=== PATIENT | male | born 1960 | race Caucasian/White ===

== ENCOUNTER 2016-09-24 10:38 | Emergency (ER) | payer MEDICAID, MEDICARE ==
[~2016-09-24] VITALS: Ht 188 cm; Wt 99.8 kg
[~2016-09-24 10:38] MED LIST: ALBU17AE3 IH; AMT50T; ARPZ10T PO; ASP325T PO; ASP81CT; ASP81CT PO; ASPI-84; ATRV10T PO; CALC/MAG/ZINC; CHOL4PAC2 PO; CLON1TAB3 PO; CLON1TAB36; COLC0.6T7 PO; CYCL10TA9 PO; DULO30CA; DULO30CA PO; DULO60CA6; DYAZIDE; ENAL2.5T PO; ENLP10T; ESOM10SU PO; FENTANYL PATCH TD; FLUO40CA PO; FNT100TD TD; GBPN300C PO; GEMF600T3; GLMP2T; GMFB600T; HYDR-3720; HYDR-757 PO; HYOS0.1217 PO; INDM25C PO; INSASP10V SQ; INSU100C SQ; INSU100C4 SQ; INSU100I17 SQ; INSU100V16 SQ; INSU100V5 SQ; INSU100V6 SQ; INSUSS SC; KRIL1CAP PO; KRIL1CAP12 PO; LEVE1U SQ; LISI-552 PO; LISI20TA PO; METF-380; METF-380 PO; METO25TA2 PO; METO50TA2 PO; METO50TA7; METR500T21 PO; MIRT15TA6 PO; MTP25TSR; MTP50T; MTP50T PO; MULT-608; MULT1TAB63; NAPR500T PO; NAPR550T PO; NF-ESOM40C PO; NFMET1000; OMEG1CAP51 PO; OMG1KC; OMG1KC PO; ONDA4TAB8 SL; ONDAN4ODT PO; OXYC-471 PO; OXYCODONE; PANT40TA3 PO; PNT40TEC PO; PRAV40TA PO; PRD10T PO; PRD20T PO; PRED20TA PO; PREG100C PO; PREG50C PO; PREG75CA PO; PROM25SU10 PR; PROP1TAB61; PROP1TAB77; ROPI0.25 PO; RT-ALBUINH IH; RT-ALBUINH INH; SILD100T PO; SILVADENE CREAM; SULF-222 PO; TADA20TA PO; TADA5TAB2 PO; TIOT18CA IH; TRAM-21 PO; TRAM50TA2 PO; TRM50T; VARD10TA PO; VARE1TAB17 PO; [UNRECOGNIZED DRUG - OTHER]; albuterol IH
[2016-09-24 12:21] LABS: BASOPHILS # (AUTO) 0.1 10^3/uL (0.0-0.1); BASOPHILS % (AUTO) 1 % (0-10); EOSINOPHILS % (AUTO) 1 % (0-10); LYMPHOCYTES # (AUTO) 0.9 X 10^3 (1.0-4.0); LYMPHOCYTES % (AUTO) 10 % (12-44); MEAN CORPUSCULAR HEMOGLOBIN 29 PG (25-34); MEAN CORPUSCULAR HGB CONC 36 G/DL (32-36); MEAN CORPUSCULAR VOLUME 82 FL (80-99); MONOCYTES # (AUTO) 0.8 X 10^3 (0.0-1.0); MONOCYTES % (AUTO) 10 % (0-12); NEUTROPHILS # (AUTO) 6.9 X 10^3 (1.8-7.8); NEUTROPHILS % (AUTO) 79 % (42-75); PLATELET COUNT 174 10^3/uL (130-400); RED CELL DISTRIBUTION WIDTH 13.7 % (10.0-14.5); WHITE BLOOD COUNT 8.8 10^3/uL (4.3-11.0)
--- NOTE | 2016-09-24 12:34 | Diagnostic Imaging Report ---
INDICATION: Cough, congestion. COMPARISON: 03/13/2016 and 10/24/2015. FINDINGS: There is irregular nodular opacity near the cardiac apex which is unchanged since 10/24/2015 exam. Otherwise, visualized lungs are clear. No pleural effusion or pneumothorax. Stable cardiomediastinal silhouette with borderline cardiomegaly, likely due to portable technique. Normal pulmonary vasculature. Stable changes of ACDF in the lower cervical spine. IMPRESSION: 1. Stable examination without evidence of acute cardiopulmonary process. 2. Irregular nodular opacity near the cardiac apex is unchanged from 10/24/2015 examination and likely represents a focus of atelectasis or scar. Dictated by: Dictated on workstation # [id number]
[2016-09-24 12:37] LABS: ALANINE AMINOTRANSFERASE 15 U/L (0-55); ALBUMIN 4.2 G/DL (3.2-4.5); ANION GAP 11 MMOL/L (5-14); ASPARTATE AMINO TRANSFERASE 9 U/L (5-34); BILIRUBIN,TOTAL 0.6 MG/DL (0.1-1.0); BLOOD UREA NITROGEN 11 MG/DL (7-18); BUN/CREATININE RATIO 13; CALCIUM 8.7 MG/DL (8.5-10.1); CARBON DIOXIDE 20 MMOL/L (21-32); CHLORIDE 99 MMOL/L (98-107); CREATININE SERUM 0.84 MG/DL (0.60-1.30); GFR ESTIMATED > 60; GLUCOSE 270 MG/DL (70-105); SODIUM 130 MMOL/L (135-145); TOTAL PROTEIN 7.1 G/DL (6.4-8.2)
[2016-09-24 12:57] LABS: BILIRUBIN,URINE NEGATIVE (NEGATIVE); KETONES,URINE NEGATIVE (NEGATIVE); LEUKOCYTE ESTERASE ,URINE 1+ (NEGATIVE); NITRITE,URINE NEGATIVE (NEGATIVE); PH,URINE 5 (5-9); PROTEIN,URINE 2+ (NEGATIVE); UROBILINOGEN,URINE NORMAL (NORMAL)
--- NOTE | 2016-09-24 13:22 | ED Cough/URI ---
General Chief Complaint: Cough/Cold/Flu Symptoms Stated Complaint: COUGH, CONGESTION, POSSIBLE PNEUMONIA Nursing Triage Note: Pt c/o cough, congestion, SOA, dizziness that started saturday and worsened last night. Pt reports he was seen at walk-in clinic at [facility] and given given azithromycin and cough medication. Source: patient Exam Limitations: no limitations History of Present Illness Time seen by provider: 13:17 Initial Comments The patient reports that he began to cough and runny fever several days ago. The maximum fever has been 102. He was seen at a walk-in clinic Saturday and given Zithromax. He reports he was given nothing for cough management and has been taking [id number]. He has also not been taking Tylenol or ibuprofen for fever management. He initially coughed up a bit of blood and mucus. There is been none since then. There is been a little sputum and all his coughing. Timing/Duration: other (Saturday) Severity/Quality: severe, dry cough, blood streaked sputum Allergies and Home Medications Allergies Coded Allergies: No Known Drug Allergies (Unverified , 05/31/13) Home Medications Albuterol Sulfate 8.5 Gm Hfa.aer.ad 2 PUFF INH Q4H PRN PRN SHORTNESS OF BREATH ( Reported) Insulin Aspart 100 Unit/1 Ml Susp 10 UNITS SQ BID WITH MEALS (Reported) Insulin Determir 1,000 Units/10 Ml Soln 35 UNITS SQ BID (Reported) Lisinopril 20 Mg Tablet 10 MG PO DAILY (Reported) take 1/2 of 20mg tab Metoprolol Tartrate 50 Mg Tablet 50 MG PO DAILY (Reported) Ondansetron 4 Mg Tab.rapdis #24 1 TAB SL Q4H PRN PRN NAUSEA Prescribed by: NILAY BOWDEN on 06/27/16 1217 Oxycodone HCl/Acetaminophen 1 Each Tablet #40 1 TAB PO Q4H PRN PRN PAIN Prescribed by: NILAY BOWDEN on 06/27/16 1217 Pantoprazole Sodium 40 Mg Tablet.dr 40 MG PO DAILY (Reported) Pregabalin 100 Mg Capsule 100 MG PO BID (Reported) Tadalafil 20 Mg Tablet 20 MG PO PRN (Reported) Constitutional: see HPI fever EENTM: hoarseness nose congestion Respiratory: cough Cardiovascular: no symptoms reported Gastrointestinal: no symptoms reported Genitourinary: no symptoms reported Musculoskeletal: muscle pain Skin: no symptoms reported Psychiatric/Neurological: No Symptoms Reported Hematologic/Lymphatic: No Symptoms Reported Past Jjyfrbb-Ttgikr-Xsmfbi Hx Patient Social History Alcohol Use: Rarely Uses Recreational Drug Use: Yes (THC) Smoking Status: Current Everyday Smoker Type Used: Cigarettes Former Smoker/When Quit: Sep 16, 2013 Recent Foreign Travel: No Contact w/Someone Who Travel: No Recent Infectious Disease Expo: No Recent Hopitalizations: Yes (FEBRUARY 2016) Physical Abuse Screen: No Sexual Abuse: No Immunizations Up To Date Tetanus Booster (TDap): Less than 5yrs PED Vaccines UTD: No Date of Pneumonia Vaccine: January 20, 2010 Date of Influenza Vaccine: Jun 20, 2016 Seasonal Allergies Seasonal Allergies: Yes Surgeries HX Surgeries: Yes (HERNIA REPAIR, ENE-SPINE SURGERY X2, RT KNEE SCOPE, CARDIAC CATH) Surgeries: Abdominal, Cardiac, Orthopedic Respiratory Hx Respiratory Disorders: Yes (INTERSTITIAL LUNG DISEASE, OXYGEN PRN) Respiratory Disorders: Pneumonia, Sleep Apnea, COPD Cardiovascular Hx Cardiac Disorders: Yes (LBBB, CARDIAC CATH) Cardiac Disorders: High Cholesterol, Hypertension Neurological Hx Neurological Disorders: Yes (NEUROPATHY IN FEET) Neurological Disorders: Neuropathy Reproductive System Hx Reproductive Disorders: No (ERECTILE DYSFUNCTION) Sexually Transmitted Disease: No HIV/AIDS: No Genitourinary Hx Genitourinary Disorders: No Gastrointestinal Hx Gastrointestinal Disorders: Yes Gastrointestinal Disorders: Gastroesophageal Reflux Musculoskeletal Hx Musculoskeletal Disorders: Yes (CHRONIC GENERALIZED PAIN, CHRONIC NECK AND BACK PAIN ) Musculoskeletal Disorders: Degenerate Disk Disease, Arthritis, Fibromyalgia, Chronic Back Pain Endocrine Hx Endocrine Disorders: Yes Endocrine Disorders: Diabetes, Insulin dep HEENT HX ENT Disorders: No Loss of Vision: Denies Hearing Impairment: Hard of Hearing Cancer Hx Cancer: No Psychosocial Hx Psychiatric Problems: Yes Behavioral Health Disorders: Anxiety Integumentary HX Skin/Integumentary Disorder: No Blood Transfusions Hx Blood Disorders: No Adverse Reaction to a Blood Tr: No Family Medical History Family Medial History: Cancer 03 MOTHER Cancer of colon 03 MOTHER Cataract 03 MOTHER Chest pain 03 FATHER Family history: Cardiovascular disease 03 FATHER Family history: Diabetes mellitus 09 BROTHER Headache 03 FATHER 03 MOTHER 09 BROTHER 09 BROTHER Heart disease 03 FATHER Myocardial infarction 03 FATHER Stroke 09 BROTHER No Family History of: Abdominal aortic aneurysm Hi's disease Alcoholism Aphasia Congenital heart disease Congestive heart failure Cystic fibrosis Dementia Dysphagia Family history: Allergy Family history: Alzheimer's disease Family history: Arthritis Family history: Asthma Family history: Breast disease Family history: Coronary thrombosis Family history: Gastrointestinal disease Family history: Glaucoma Family history: Hypertension Family history: Osteoporosis Family history: Thyroid disorder Hearing loss Hereditary disease History of - anemia History of - disorder History of - respiratory disease History of drug abuse Human immunodeficiency virus (HIV) seropositivity Hypercholesterolemia Infertile Kidney disease Malignant neoplasm of lung Parkinson's disease Prostate cancer Psychotic disorder Seizure disorder Tuberculosis Visual impairment Physical Exam Vital Signs Vital Sign - Last 12Hours 09/24/16 11:38 Temp 101.9 Pulse 114 Resp 18 B/P 128/74 Pulse Ox 90 O2 Delivery Room Air Capillary Refill : Less Than 3 Seconds General Appearance: mild distress moderate distress Eyes: Bilateral Eye Normal Inspection HEENT: normal ENT inspection Neck: non-tender full range of motion supple normal inspection carotid bruit Respiratory: decreased breath sounds Cardiovascular: normal peripheral pulses regular rate, rhythm no edema no gallop no JVD no murmur Gastrointestinal: normal bowel sounds non tender soft no organomegaly no pulsatile mass Extremities: no pedal edema 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 as 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 no motor/sensory deficits alert normal mood/affect oriented x 3 Progress/Results/Core Measures Results/Orders Lab Results Laboratory Tests Test 09/24/16 12:10 09/24/16 12:50 Range/Units Alanine Aminotransferase (ALT/SGPT) 15 0-55 U/L Albumin 4.2 3.2-4.5 G/DL Alkaline Phosphatase 81 40-136 U/L Anion Gap 11 5-14 MMOL/L Aspartate Amino Transf (AST/SGOT) 9 5-34 U/L BUN/Creatinine Ratio 13 Basophils # (Auto) 0.1 0.0-0.1 10^3/uL Basophils (%) (Auto) 1 0-10 % Blood Urea Nitrogen 11 7-18 MG/DL Calcium Level 8.7 8.5-10.1 MG/DL Carbon Dioxide Level 20 L 21-32 MMOL/L Chloride Level 99 98-107 MMOL/L Creatinine 0.84 0.60-1.30 MG/DL Eosinophils # (Auto) 0.0 0.0-0.3 10^3/uL Eosinophils (%) (Auto) 1 0-10 % Estimat Glomerular Filtration Rate > 60 Glucose Level 270 H 70-105 MG/DL Hematocrit 44 40-54 % Hemoglobin 15.8 13.3-17.7 G/DL Lymphocytes # (Auto) 0.9 L 1.0-4.0 X 10^3 Lymphocytes (%) (Auto) 10 L 12-44 % Mean Corpuscular Hemoglobin 29 25-34 PG Mean Corpuscular Hemoglobin Concent 36 32-36 G/DL Mean Corpuscular Volume 82 80-99 FL Mean Platelet Volume 11.0 H 7.4-10.4 FL Monocytes # (Auto) 0.8 0.0-1.0 X 10^3 Monocytes (%) (Auto) 10 0-12 % Neutrophils # (Auto) 6.9 1.8-7.8 X 10^3 Neutrophils (%) (Auto) 79 H 42-75 % Platelet Count 174 130-400 10^3/uL Potassium Level 4.0 3.6-5.0 MMOL/L Red Blood Count 5.40 4.35-5.85 10^6/uL Red Cell Distribution Width 13.7 10.0-14.5 % Sodium Level 130 L 135-145 MMOL/L Total Bilirubin 0.6 0.1-1.0 MG/DL Total Protein 7.1 6.4-8.2 G/DL White Blood Count 8.8 4.3-11.0 10^3/uL Urine Bacteria TRACE /HPF Urine Bilirubin NEGATIVE NEGATIVE Urine Casts NONE /LPF Urine Clarity CLEAR Urine Color YELLOW Urine Crystals NONE /LPF Urine Culture Indicated NO Urine Glucose (UA) 4+ H NEGATIVE Urine Ketones NEGATIVE NEGATIVE Urine Leukocyte Esterase 1+ H NEGATIVE Urine Mucus MODERATE H /LPF Urine Nitrite NEGATIVE NEGATIVE Urine Protein 2+ H NEGATIVE Urine RBC NONE /HPF Urine RBC (Auto) NEGATIVE NEGATIVE Urine Specific [place] 1.025 H 1.016-1.022 Urine Squamous Epithelial Cells 2-5 /HPF Urine Urobilinogen NORMAL NORMAL MG/DL Urine WBC 2-5 /HPF Urine pH 5 5-9 My Orders Orders-RONA ENRIQUE MD Cbc With Automated Diff (09/24/16 11:58) Comprehensive Metabolic Panel (09/24/16 11:58) Ua Culture If Indicated (09/24/16 11:58) Chest 1 View, Ap/Pa Only (09/24/16 11:58) Vital Signs/I&O Vital Sign - Last 12Hours 09/24/16 09/24/16 11:38 11:52 Temp 101.9 Pulse 114 Resp 18 B/P 128/74 Pulse Ox 90 O2 Delivery Room Air Room Air Blood Pressure Mean: 92 Departure Communication Progress Notes Chest x-ray shows no infiltrates. A chronic abnormality thought to be consistent with scar was noted as compared with a previous chest x-ray. Impression Impression: Primary Impression: Upper respiratory infection Disposition: HOME, SELF-CARE Condition: Stable/Unchanged Departure-Patient Inst. Decision time for Depature: 13:21 Referrals: NELI SIMPSON DO (PCP) Primary Care Physician TATYANA CHAPPELL (Family) Primary Care Physician Patient Instructions: Viral Upper Respiratory Infection, Adult (DC) Add. Discharge Instructions: All discharge instructions reviewed with patient and/or family. Voiced understanding. Finish Z-Jayce Plenty of liquids Use Tylenol 1000 mg or ibuprofen 600 mg every 6 hours as needed for fever and myalgia Take codeine containing cough medicine as directed Scripts Promethazine/Phenyleph/Codeine (Promethazine Vc-Codeine Syrup)118 Ml Syrup5 Ml PO every 4 hours #1 ML Prov:RONA ENRIQUE MD 09/24/16 RONA ENRIQUE MD Sep 24, 2016 13:22
[2016-09-24] MEDS ORDERED: PHEN118S12 PO (13:26)
[2016-09-24 13:42] VITALS: BP 127/77
== END 2016-09-24 13:42 | disposition home or self-care (01) ==
LOC: EDUNIT# 10:38 → ER 10:39
DX: J06.9 Acute upper respiratory infection, unspecified (principal); R42 Dizziness and giddiness; I10 Essential (primary) hypertension; J44.9 Chronic obstructive pulmonary disease, unspecified; R91.8 Other nonspecific abnormal finding of lung field; E11.9 Type 2 diabetes mellitus without complications; F17.210 Nicotine dependence, cigarettes, uncomplicated; Z79.4 Long term (current) use of insulin; Z79.899 Other long term (current) drug therapy
CPT/HCPCS: 36415; 71010; 80053; 81000; 85025

== ENCOUNTER → 2016-11-05 | Outpatient (CLI) | payer MEDICARE, MEDICAID ==
[~2016-11-05] MED LIST changes: +CEFD300C3 PO; +PHEN118S12 PO
--- NOTE | 2016-11-05 13:44 | Diagnostic Imaging Report ---
PROCEDURE: CT chest without contrast. TECHNIQUE: Multiple contiguous axial images were obtained through the chest without the use of intravenous contrast. INDICATION: Chronic bronchitis with acute exacerbation and tobacco use, shortness of breath, pulmonary nodule. Comparison is made with prior examination from 08/06/16. FINDINGS: Note is again made of a 4 mm nodule in the right middle lobe. There is also a stable 1.1 cm nodule in the left lower lobe. There are a few tiny air cysts. There is no pleural or pericardial fluid. There is no pneumothorax. There are some coronary artery calcifications. There is an unchanged 1.5 cm node in the right paratracheal region. There are mild degenerative changes in the spine. The visualized intra-abdominal structures are unremarkable. IMPRESSION: 1. Stable bilateral pulmonary nodules. 2. 1.5 cm lymph node in the right paratracheal region. 3. Coronary artery calcifications. Dictated by: Dictated on workstation # [id number]
== END ==
LOC: RAD 12:59
PROVIDERS: ATTEND Nurse Practitioner Family
DX: J20.9 Acute bronchitis, unspecified (principal); J84.9 Interstitial pulmonary disease, unspecified; R06.00 Dyspnea, unspecified; R91.1 Solitary pulmonary nodule; Z72.0 Tobacco use
CPT/HCPCS: 71250

== ENCOUNTER 2016-11-08 16:24 | Emergency (ER) | payer MEDICAID, MEDICARE ==
[~2016-11-08] VITALS: Ht 188 cm; Wt 99.8 kg
[~2016-11-08 16:24] MED LIST changes: -CEFD300C3 PO
--- OUTSIDE RECORDS SUMMARY | 2016-11-08 16:29 | XMS REPORT | Continuity of Care Document ---
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 If you do not see the information that you expected, contact Release of Information in the Health Information Management department at [phone] for further assistance in locating additional records.[facility] Active Allergies and Adverse Reactions No Known Allergies Current Medications Prescription Sig. Disp. Refills Start End Date Status Date metoprolol (LOPRESSOR) 50 Take 50 mg by mouth twice Active mg tablet daily. FLUOXETINE HCL (PROZAC Take 40 mg by mouth Active PO) daily. lisinopril (PRINIVIL; Take 20 mg by mouth Active ZESTRIL) 20 mg tablet daily. esomeprazole DR(+) Take 40 mg by mouth every Active (NEXIUM) 40 mg capsule morning. predniSONE (DELTASONE) 10 Take 10 mg by mouth Active mg tablet daily. rOPINIRole (REQUIP) 0.25 Take 0.25 mg by mouth at Active mg tablet bedtime daily. ARIPiprazole (ABILIFY) 10 Take 10 mg by mouth at Active mg tablet bedtime daily. insulin detemir(+) Inject 40 Units into Active (LEVEMIR) 100 unit/mL area(s) as directed daily Soln before breakfast. insulin aspart (NOVOLOG) Inject 10 Units into Active 100 unit/mL injection area(s) as directed three times daily with meals. predniSONE (DELTASONE) 10 Take 1 tab tab daily 90 Tab 3 06/23/20 Active mg tablet 13 Active Problems Problem Noted Date ILD (interstitial lung disease) (HCC) 06/29/2013 Dyspnea 06/29/2013 Long-term use of immunosuppressant medication 06/29/2013 Social History Tobacco Use Types Packs/Day Years Used Date Current Every Day Smoker Cigarettes 1 30 Smokeless Tobacco: Never Used Comments: Down to 0.5ppd/day since March/2013 as of 06/23/13 Alcohol Use Drinks/Week oz/Week Comments No Last Filed Vital Signs Vital Sign Reading Time Taken Blood Pressure 117/77 06/23/2013 12:35 PM CDT Pulse 106 06/23/2013 12:35 PM CDT Temperature 36.9 C (98.4 F) 06/23/2013 12:35 PM CDT Respiratory Rate 20 06/23/2013 12:35 PM CDT Height 1.829 m (6') 06/23/2013 12:35 PM CDT Weight 106.777 kg (235 lb 6.4 06/23/2013 12:35 PM CDT oz) Body Mass Index 31.92 06/23/2013 12:35 PM CDT Oxygen Saturation 96% 06/23/2013 12:35 PM CDT Plan of Care Health Maintenance Due Date Last Done Comments Hepatitis C Screening 1962 Physical (Comprehensive) 1969 Exam Pertussis Vaccine 1973 Tetanus Vaccine 1979 Colorectal Cancer 2012 Screening Influenza Vaccine 05/17/2016 Results from Last 3 Months Not on file
[2016-11-08 16:51] LABS: BASOPHILS # (AUTO) 0.1 10^3/uL (0.0-0.1); BASOPHILS % (AUTO) 1 % (0-10); EOSINOPHILS # (AUTO) 0.4 10^3/uL (0.0-0.3); EOSINOPHILS % (AUTO) 2 % (0-10); LYMPHOCYTES # (AUTO) 3.3 X 10^3 (1.0-4.0); LYMPHOCYTES % (AUTO) 17 % (12-44); MEAN CORPUSCULAR HEMOGLOBIN 30 PG (25-34); MEAN CORPUSCULAR HGB CONC 35 G/DL (32-36); MEAN CORPUSCULAR VOLUME 85 FL (80-99); MEAN PLATELET VOLUME 10.3 FL (7.4-10.4); MONOCYTES % (AUTO) 6 % (0-12); NEUTROPHILS % (AUTO) 75 % (42-75); PLATELET COUNT 216 10^3/uL (130-400); RED BLOOD COUNT 5.17 10^6/uL (4.35-5.85); RED CELL DISTRIBUTION WIDTH 14.4 % (10.0-14.5); WHITE BLOOD COUNT 18.8 10^3/uL (4.3-11.0)
--- NOTE | 2016-11-08 16:54 | ED Neurological Problem ---
General Chief Complaint: Neuro-Stroke Like Symptoms Stated Complaint: STROKE SYMPTOMS Nursing Triage Note: AMBULATED TO ROOM 05 FROM [facility] FOR STROKE LIKE SYMPTOMS. PT STATES HE STARTED HAVING A RIGHT SIDED HEADACHE/TUNNEL VISION ON SATURDAY, SLURRED SPEECH ON SATURDAY, ET GENEARLIZED WEAKNESS AND WANTING TO SLEEP LOTS FOR SEVERAL DAYS. DAUGHTER STATES SHE NOTICED THE SLURRED SPEECH AT 1120 TODAY. PT DENIES CHEST PAIN. Nursing Sepsis Screen: No Definite Risk Source: patient Exam Limitations: no limitations History of Present Illness Time seen by provider: 16:53 Initial Comments To ER per private vehicle from [facility] with reports of strokelike symptoms. He presented there today to be seen for a headache. The headache is the right occipital region. He has no history of headaches. This began on 11/04 rather suddenly. Denies any vision changes and denies photophobia. He also reports dizziness with movement. The dizziness completely subsides with rest. Daughter reports that his gait has been swaying to the right and patient states that he notices some slightly slurred speech since 11/06/16. There was question of some right-sided weakness at his visit at [facility] today. Severity: moderate Associated Symptoms: No confusion, No fatigue, No fever/chills, No insomnia, No loss of consciousness, No muscle spasms, No nausea/vomiting, No numbness in legs/feet, No paresthesia, No ringing in ears, No seizures, No sleepy, No slurred speech, No tingling in legs/feet, No trouble walking, No vision changes , No weakness Allergies and Home Medications Allergies Coded Allergies: No Known Drug Allergies (Unverified , 05/31/13) Home Medications Albuterol Sulfate 8.5 Gm Hfa.aer.ad 2 PUFF INH Q4H PRN PRN SHORTNESS OF BREATH ( Reported) Cefdinir 300 Mg Capsule #20 300 MG PO BID Prescribed by: IVÁN GRACE on 11/08/161933 Insulin Aspart 100 Unit/1 Ml Susp 10 UNITS SQ BID WITH MEALS (Reported) Insulin Determir 1,000 Units/10 Ml Soln 35 UNITS SQ BID (Reported) Lisinopril 20 Mg Tablet 10 MG PO DAILY (Reported) take 1/2 of 20mg tab Metoprolol Tartrate 50 Mg Tablet 50 MG PO DAILY (Reported) Ondansetron 4 Mg Tab.rapdis #24 1 TAB SL Q4H PRN PRN NAUSEA Prescribed by: NILAY BOWDEN on 06/27/16 1217 Pantoprazole Sodium 40 Mg Tablet.dr 40 MG PO DAILY (Reported) Pregabalin 100 Mg Capsule 100 MG PO BID (Reported) Promethazine/Phenyleph/Codeine 118 Ml Syrup #1 5 ML PO every 4 hours Prescribed by: RONA ENRIQUE on 09/24/16 1326 Constitutional: see HPINo chills, No fever Eyes: No Symptoms Reported Ears, Nose, Mouth, Throat: no symptoms reported Respiratory: no symptoms reported Cardiovascular: no symptoms reported Genitourinary: no symptoms reported Musculoskeletal: no symptoms reported Skin: no symptoms reported Psychiatric/Neurological: See HPI Headache Endocrine: No Symptoms Reported Hematologic/Lymphatic: No Symptoms Reported Past Dqxilbm-Yabgai-Oqqesx Hx Patient Social History Alcohol Use: Denies Use Recreational Drug Use: No Smoking Status: Current Everyday Smoker Type Used: Cigarettes Former Smoker/When Quit: Sep 16, 2013 Recent Foreign Travel: No Contact w/Someone Who Travel: No Recent Infectious Disease Expo: No Recent Hopitalizations: No Immunizations Up To Date Tetanus Booster (TDap): Less than 5yrs PED Vaccines UTD: No Date of Pneumonia Vaccine: January 20, 2010 Date of Influenza Vaccine: Jun 20, 2016 Seasonal Allergies Seasonal Allergies: Yes Surgeries HX Surgeries: Yes (HERNIA REPAIR, ENE-SPINE SURGERY X2, RT KNEE SCOPE, CARDIAC CATH) Surgeries: Abdominal, Cardiac, Orthopedic Respiratory Hx Respiratory Disorders: Yes (INTERSTITIAL LUNG DISEASE, OXYGEN PRN) Respiratory Disorders: Pneumonia, Sleep Apnea, COPD Cardiovascular Hx Cardiac Disorders: Yes (LBBB, CARDIAC CATH) Cardiac Disorders: High Cholesterol, Hypertension Neurological Hx Neurological Disorders: Yes (NEUROPATHY IN FEET) Neurological Disorders: Neuropathy Reproductive System Hx Reproductive Disorders: No (ERECTILE DYSFUNCTION) Sexually Transmitted Disease: No HIV/AIDS: No Genitourinary Hx Genitourinary Disorders: No Gastrointestinal Hx Gastrointestinal Disorders: Yes Gastrointestinal Disorders: Gastroesophageal Reflux Musculoskeletal Hx Musculoskeletal Disorders: Yes (CHRONIC GENERALIZED PAIN, CHRONIC NECK AND BACK PAIN ) Musculoskeletal Disorders: Degenerate Disk Disease, Arthritis, Fibromyalgia, Chronic Back Pain Endocrine Hx Endocrine Disorders: Yes Endocrine Disorders: Diabetes, Insulin dep HEENT HX ENT Disorders: No Loss of Vision: Denies Hearing Impairment: Hard of Hearing Cancer Hx Cancer: No Psychosocial Hx Psychiatric Problems: Yes Behavioral Health Disorders: Anxiety Integumentary HX Skin/Integumentary Disorder: No Blood Transfusions Hx Blood Disorders: No Adverse Reaction to a Blood Tr: No Family Medical History Family Medial History: Cancer 03 MOTHER Cancer of colon 03 MOTHER Cataract 03 MOTHER Chest pain 03 FATHER Family history: Cardiovascular disease 03 FATHER Family history: Diabetes mellitus 09 BROTHER Headache 03 FATHER 03 MOTHER 09 BROTHER 09 BROTHER Heart disease 03 FATHER Myocardial infarction 03 FATHER Stroke 09 BROTHER No Family History of: Abdominal aortic aneurysm Warren's disease Alcoholism Aphasia Congenital heart disease Congestive heart failure Cystic fibrosis Dementia Dysphagia Family history: Allergy Family history: Alzheimer's disease Family history: Arthritis Family history: Asthma Family history: Breast disease Family history: Coronary thrombosis Family history: Gastrointestinal disease Family history: Glaucoma Family history: Hypertension Family history: Osteoporosis Family history: Thyroid disorder Hearing loss Hereditary disease History of - anemia History of - disorder History of - respiratory disease History of drug abuse Human immunodeficiency virus (HIV) seropositivity Hypercholesterolemia Infertile Kidney disease Malignant neoplasm of lung Parkinson's disease Prostate cancer Psychotic disorder Seizure disorder Tuberculosis Visual impairment Physical Exam Vital Signs Vital Sign - Last 12Hours 11/08/16 16:31 Temp 97.2 Pulse 66 Resp 16 B/P 107/78 Pulse Ox 94 Capillary Refill : Less Than 3 Seconds General Appearance: WD/WN no apparent distress HEENT: PERRL/EOMI normal ENT inspection Neck: non-tender full range of motion Respiratory: lungs clear normal breath sounds no respiratory distress no accessory muscle use Gastrointestinal: normal bowel sounds non tender soft Extremities: normal range of motion non-tender Neurologic/Psychiatric: alert normal mood/affect oriented x 3 Crainal Nerves: normal hearing normal speech PERRL Coordination/Gait: normal finger to nose Motor/Sensory: no motor deficit no sensory deficit no pronator drift Skin: normal color warm/dry Comments I will give his NIH stroke scale a score of 1 for dysarthria which I do not appreciate myself but the patient reports to me. Conversation is otherwise appropriate and pleasant, jovial. Stroke Onset of Symptoms Date of Onset of Symptoms: Nov 06, 2016 NIH Stroke Scale Assessment Level of Consciousness: 0=Alert Level of Consciousness-Questio: 0=Answers both month/age LOC Commands: 0=Performs both tasks Gaze: 0=Normal Visual Marie: 0=No visual loss Facial Movement (Facial Paresi: 0=Normal symmetrical mnt Motor Function-Arms Right: 0=No drift Motor Function-Arms Left: 0=No drift Motor Function-Legs Right: 0=No drift Motor Function-Legs Left: 0=No drift Limb Ataxia: 0=Absent Sensory: 0=Normal:no loss Best Language: 0=No aphasia Dysarthria: 1=Mild to moderate loss Extinction & Inattention: 0=No abnormality Progress/Results/Core Measures Results/Orders Lab Results Laboratory Tests Test 11/08/16 16:40 11/08/16 16:46 11/08/16 17:17 11/08/16 18:15 Range/Units Alanine Aminotransferase (ALT/SGPT) 20 0-55 U/L Albumin 4.3 3.2-4.5 G/DL Alkaline Phosphatase 71 40-136 U/L Anion Gap 10 5-14 MMOL/L Aspartate Amino Transf (AST/SGOT) 14 5-34 U/L BUN/Creatinine Ratio 20 Basophils # (Auto) 0.1 0.0-0.1 10^3/uL Basophils % (Manual) 1 % Basophils (%) (Auto) 1 0-10 % Blood Morphology Comment NORMAL Blood Urea Nitrogen 16 7-18 MG/DL Calcium Level 9.0 8.5-10.1 MG/DL Carbon Dioxide Level 23 21-32 MMOL/L Chloride Level 104 98-107 MMOL/L Creatinine 0.81 0.60-1.30 MG/DL Eosinophils # (Auto) 0.4 H 0.0-0.3 10^3/uL Eosinophils % (Manual) 1 % Eosinophils (%) (Auto) 2 0-10 % Estimat Glomerular Filtration Rate > 60 Glucose Level 152 H 70-105 MG/DL Hematocrit 44 40-54 % Hemoglobin 15.5 13.3-17.7 G/DL INR Comment 1.0 0.8-1.4 Lymphocytes # (Auto) 3.3 1.0-4.0 X 10^3 Lymphocytes % (Manual) 20 % Lymphocytes (%) (Auto) 17 12-44 % Magnesium Level 2.0 1.8-2.4 MG/DL Mean Corpuscular Hemoglobin 30 25-34 PG Mean Corpuscular Hemoglobin Concent 35 32-36 G/DL Mean Corpuscular Volume 85 80-99 FL Mean Platelet Volume 10.3 7.4-10.4 FL Monocytes # (Auto) 1.0 0.0-1.0 X 10^3 Monocytes % (Manual) 8 % Monocytes (%) (Auto) 6 0-12 % Neutrophils # (Auto) 14.0 H 1.8-7.8 X 10^3 Neutrophils % (Manual) 67 % Neutrophils (%) (Auto) 75 42-75 % Platelet Count 216 130-400 10^3/uL Potassium Level 4.0 3.6-5.0 MMOL/L Prothrombin Time 13.1 12.2-14.7 SEC Reactive Lymphocytes 3 % Red Blood Count 5.17 4.35-5.85 10^6/uL Red Cell Distribution Width 14.4 10.0-14.5 % Serum Alcohol < 10 <10 MG/DL Sodium Level 137 135-145 MMOL/L Total Bilirubin 0.7 0.1-1.0 MG/DL Total Protein 7.0 6.4-8.2 G/DL Troponin I < 0.30 <0.30 NG/ML White Blood Count 18.8 H 4.3-11.0 10^3/uL Glucometer 152 H 70-110 MG/DL Ur Tricyclic Antidepressants Screen NEGATIVE NEGATIVE Urine Amphetamines Screen NEGATIVE NEGATIVE Urine Bacteria NEGATIVE /HPF Urine Barbiturates Screen NEGATIVE NEGATIVE Urine Benzodiazepines Screen POSITIVE H NEGATIVE Urine Bilirubin NEGATIVE NEGATIVE Urine Cannabinoids Screen NEGATIVE NEGATIVE Urine Casts NONE /LPF Urine Clarity CLEAR Urine Cocaine Screen NEGATIVE NEGATIVE Urine Color YELLOW Urine Crystals NONE /LPF Urine Culture Indicated NO Urine Glucose (UA) NEGATIVE NEGATIVE Urine Ketones NEGATIVE NEGATIVE Urine Leukocyte Esterase NEGATIVE NEGATIVE Urine Methadone Screen NEGATIVE NEGATIVE Urine Methamphetamines Screen NEGATIVE NEGATIVE Urine Mucus NEGATIVE /LPF Urine Nitrite NEGATIVE NEGATIVE Urine Opiates Screen NEGATIVE NEGATIVE Urine Oxycodone Screen NEGATIVE NEGATIVE Urine Phencyclidine Screen NEGATIVE NEGATIVE Urine Propoxyphene Screen NEGATIVE NEGATIVE Urine Protein NEGATIVE NEGATIVE Urine RBC NONE /HPF Urine RBC (Auto) NEGATIVE NEGATIVE Urine Specific Jameson 1.005 L 1.016-1.022 Urine Squamous Epithelial Cells 0-2 /HPF Urine Urobilinogen NORMAL NORMAL MG/DL Urine WBC NONE /HPF Urine pH 7 5-9 CSF Appearance CLEAR CSF Color COLORLESS CSF Glucose 101 H 50-80 MG/DL CSF Lymphocytes % CSF Mononuclear WBCs % CSF Polynuclear WBCs % CSF RBC 0 0-0 CELLS CSF Total Protein 90 H 15-40 MG/DL CSF Tube Number 4 CSF WBC 2.22 0-5 CELLS Test 11/08/16 18:37 Range/Units Lactic Acid Level 1.1 0.5-2.0 MMOL/L My Orders Orders-GRACE,PETER J [employer] Cbc With Automated Diff (11/08/16 16:44) Comprehensive Metabolic Panel (11/08/16 16:44) Protime With Inr (11/08/16 16:44) Magnesium (11/08/16 16:44) Ua Culture If Indicated (11/08/16 16:44) Troponin I (11/08/16 16:44) Saline Lock/Iv-Start (11/08/16 16:44) Ekg Tracing (11/08/16 16:44) Ct Head Wo-R/O Stroke (11/08/16 16:44) Manual Differential (11/08/16 16:40) Alcohol (11/08/16 17:01) Drug Screen Stat (Urine) (11/08/16 17:01) Chest Pa/Lat (2 View) (11/08/16 17:02) Ns Iv 1000 Ml (Sodium Chloride 0.9%) (11/08/16 17:15) Lorazepam Injection (Ativan Injection) (11/08/16 18:00) Csf Cell Count (11/08/16 17:49) Csf Glucose (11/08/16 17:49) Csf Total Protein (11/08/16 17:49) Csf Culture (11/08/16 17:49) Isolation Central Supply Req (11/08/16 17:52) Disposal Tray (Paper/Plastic) (11/08/16 17:52) Blood Culture (11/08/16 18:00) Lactic Acid Analyzer (11/08/16 18:00) Fentanyl Injection (Sublimaze Injection (11/08/16 18:30) Ondansetron Injection (Zofran Injectio (11/08/16 18:30) Dexamethasone Pf Injection (Decadron Pf (11/08/16 19:30) Ceftriaxone Injection (Rocephin Injectio (11/08/16 19:30) Fentanyl Injection (Sublimaze Injection (11/08/16 19:45) Medications Given in ED Current Medications Medications Dose Ordered Sig/Gale Route Start Time Stop Time Status Last Admin Dose Admin Ceftriaxone Sodium/Sodium Chloride 50 ml @ 100 mls/hr ONCE ONCE IV 11/08/16 19:30 11/08/16 19:59 DC 11/08/16 19:40 100 MLS/HR Dexamethasone Sodium Phosphate 10 mg 10 mg ONCE ONCE IV 11/08/16 19:30 11/08/16 19:31 DC 11/08/16 19:40 10 MG Fentanyl Citrate 50 mcg ONCE ONCE IVP 11/08/16 18:30 11/08/16 18:31 DC 11/08/16 18:33 50 MCG Fentanyl Citrate 50 mcg ONCE ONCE IVP 11/08/16 19:45 11/08/16 19:46 DC 11/08/16 19:40 50 MCG Lorazepam 0.5 mg ONCE ONCE IVP 11/08/16 18:00 11/08/16 18:01 DC 11/08/16 17:57 0.5 MG Ondansetron HCl 4 mg ONCE ONCE IVP 11/08/16 18:30 11/08/16 18:31 DC 11/08/16 18:33 4 MG Vital Signs/I&O Vital Sign - Last 12Hours 11/08/16 16:31 Temp 97.2 Pulse 66 Resp 16 B/P 107/78 Pulse Ox 94 Blood Pressure Mean: 88 Point of Care Testing Finger Stick Blood Glucose: 152 ECG Initial ECG Impression Date: Nov 08, 2016 Initial ECG Impression Time: 16:38 Initial ECG Rate: 66 Initial ECG Rhythm: Normal Sinus Initial ECG Intervals There is a new (since October 2015) left bundle branch block. He is without chest pain. He does report a history of remote chest pain several months ago. He was admitted one year ago this month for chest pain but ultimately left AGAINST MEDICAL ADVICE. Diagnostic Imaging Diagonstic Imaging: CT Comments NAME: [facility] REC#: [id number] PT STATUS: REG ER : 1960 PHYSICIAN: IVÁN GRACE APRN ADMIT DATE: 11/08/16/ER Draft Date of Exam:11/08/16 CT HEAD WO-R/O STROKE INDICATION: Dizziness and slurred speech with ataxia. EXAMINATION: CT head without contrast. FINDINGS: Noncontrasted images show symmetrical and cortical gyral pattern to be normal. There is no intracranial hemorrhage or mass effect. No extra-axial fluid collections. Basal cisterns are clear. Mastoid air cells and paranasal sinuses are clear. The CP angles appear normal. The internal auditory canals are symmetrical. No evidence of fluid within the middle ears. IMPRESSION: Normal CT scan of the head without contrast. Dictated on workstation # [id number] Dict: 11/08/16 1720 Trans: 11/08/16 172 [facility] [id number] Interpreted by: KOJO DIEGO MD Electronically signed by: Departure Communication Progress Notes 1930-discussed the case with Dr. DURAN and Dr. Marquis. Dr. Marquis will arrange outpatient follow-up as soon as possible, preferably tomorrow. In the meantime we will treat with Decadron, Rocephin. He reports persistent headache so we will give another dose of fentanyl. However he has a couple of admissions for narcotic withdrawal and narcotic overdose so we will not prescribe this as an outpatient. 1955-I did discuss the patient's medications with him. He does not report any benzodiazepines. I stated to him that his urine drug was positive for benzos and he immediately became irate stating "every time I come to this [facility] you people tell me IM positive for pot or BENZOS and I haven't done either of them since 2013". He then states "get this shit off of me, I'm leaving" referring to his blood pressure cuff and IV. questions him about the benzodiazepine abuse as well which he does have a history of. I did discuss with him that these can cause slurred speech and an unsteady gait. Impression Impression: Primary Impression: Headache Qualified Code: R51 - Headache Additional Impression: BENZODIAZEPINE USE Disposition: HOME, SELF-CARE Condition: Improved Departure-Patient Inst. Decision time for Depature: 19:33 Referrals: NELI SIMPSON DO (PCP) Primary Care Physician TATYANA CHAPPELL (Family) Primary Care Physician Patient Instructions: Headache, Adult (DC) Add. Discharge Instructions: 1. Return to ER for any concerns such as fevers or other neurologic complaints 2. Follow-up with your doctor tomorrow. Call for an appointment time. All discharge instructions reviewed with patient and/or family. Voiced understanding. Scripts Cefdinir 300 Mg [id number] Mg PO BID #20 CAP Prov:IVÁN GRACE APRN 11/08/16 Copy Copies To 1: NELI SIMPSON DO; KENYATTA MARQUIS MD, PETER J APRN Nov 08, 2016 16:54
[2016-11-08 17:01] LABS: PROTHROMBIN TIME PATIENT 13.1 SEC (12.2-14.7)
[2016-11-08 17:12] LABS: BASOPHILS % (MANUAL) 1 %; EOSINOPHILS % (MANUAL) 1 %; LYMPHOCYTES % (MANUAL) 20 %; NEUTROPHILS % (MANUAL) 67 %; REACTIVE LYMPHOCYTES 3 %
[2016-11-08 17:13] LABS: ALANINE AMINOTRANSFERASE 20 U/L (0-55); ALBUMIN 4.3 G/DL (3.2-4.5); ANION GAP 10 MMOL/L (5-14); ASPARTATE AMINO TRANSFERASE 14 U/L (5-34); BILIRUBIN,TOTAL 0.7 MG/DL (0.1-1.0); BLOOD UREA NITROGEN 16 MG/DL (7-18); BUN/CREATININE RATIO 20; CARBON DIOXIDE 23 MMOL/L (21-32); CHLORIDE 104 MMOL/L (98-107); CREATININE SERUM 0.81 MG/DL (0.60-1.30); GFR ESTIMATED > 60; GLUCOSE 152 MG/DL (70-105); SODIUM 137 MMOL/L (135-145)
[2016-11-08 17:14] LABS: TROPONIN I < 0.30 NG/ML (<0.30)
[2016-11-08] MEDS ORDERED: NS IV 1000 ML 1,000 ML IV SCH (17:15)
--- NOTE | 2016-11-08 17:17 | Diagnostic Imaging Report ---
INDICATION: Headache. Slurred speech. Suspect stroke. Generalized weakness. History of pulmonary nodules. COMPARISON: 09/24/2016 FINDINGS: Frontal and lateral views of the chest demonstrate normal heart size and pulmonary vascularity. The lungs are clear. There are no signs of infiltrate, pleural effusions or pneumothoraces. The visualized osseous structures show no acute abnormalities. IMPRESSION: 1. No acute process. No signs of infiltrates, effusions or pneumothoraces. Dictated by: Dictated on workstation # [id number]
[2016-11-08 17:24] LABS: BILIRUBIN,URINE NEGATIVE (NEGATIVE); KETONES,URINE NEGATIVE (NEGATIVE); LEUKOCYTE ESTERASE ,URINE NEGATIVE (NEGATIVE); NITRITE,URINE NEGATIVE (NEGATIVE); PH,URINE 7 (5-9); PROTEIN,URINE NEGATIVE (NEGATIVE); UROBILINOGEN,URINE NORMAL (NORMAL)
--- NOTE | 2016-11-08 17:26 | Diagnostic Imaging Report ---
INDICATION: Dizziness and slurred speech with ataxia. EXAMINATION: CT head without contrast. FINDINGS: Noncontrasted images show symmetrical and cortical gyral pattern to be normal. There is no intracranial hemorrhage or mass effect. No extra-axial fluid collections. Basal cisterns are clear. Mastoid air cells and paranasal sinuses are clear. The CP angles appear normal. The internal auditory canals are symmetrical. No evidence of fluid within the middle ears. IMPRESSION: Normal CT scan of the head without contrast. Dictated by: Dictated on workstation # [id number]
[2016-11-08 17:34] LABS: SQUAMOUS EPITHELIAL CELL,UR 0-2 /HPF
[2016-11-08] MEDS ORDERED: LORazepam INJ 2 MG/ML (ATIVAN) VIAL IVP ONE (18:00)
[2016-11-08] MEDS ORDERED: ONDANSETRON 4 MG/2 ML (SDV) Z0FRAN IVP ONE (18:30)
[2016-11-08] MEDS ORDERED: fentaNYL INJECTION 100 MCG/2 ML AMP IVP ONE ×2 (18:30→19:45)
[2016-11-08 19:01] LABS: CSF GLUCOSE 101 MG/DL (50-80); CSF TOTAL PROTEIN 90 MG/DL (15-40)
[2016-11-08 19:14] LABS: APPEARANCE,CSF CLEAR; COLOR,CSF COLORLESS; WHITE BLOOD CELL,CSF 2.22 CELLS (0-5)
[2016-11-08] MEDS ORDERED: DEXAMETHASONE PF 10 MG/ML (DECADRON) VIAL IV ONE (19:30)
[2016-11-08] MEDS ORDERED: cefTRIAXone INJECTION 2,000 MG in NS (IVPB) 50 ML IV ONE (19:30)
[2016-11-08] MEDS ORDERED: CEFD300C3 PO (19:34)
[2016-11-08 20:15] VITALS: BP 113/78
--- NOTE | 2016-12-10 08:07 | Progress Note-Standard ---
Standard Progress Note Final Diagnosis [id number] Consulted for lumbar puncture per ED. Consent obtained after risks explained. Procedure performed by Reina PORTER. Sterility maintained pt jl well. DESTINI BENAVIDES CRNA Dec 10, 2016 08:07
== END 2016-11-08 20:15 | disposition home or self-care (01) ==
LOC: EDUNIT# 16:24 → ER 16:25
DX: R51 Headache (principal); F19.10 Other psychoactive substance abuse, uncomplicated; R26.9 Unspecified abnormalities of gait and mobility; I10 Essential (primary) hypertension; E11.9 Type 2 diabetes mellitus without complications; J44.9 Chronic obstructive pulmonary disease, unspecified; F17.210 Nicotine dependence, cigarettes, uncomplicated; Z79.4 Long term (current) use of insulin; Z79.899 Other long term (current) drug therapy
CPT/HCPCS: 36415; 70450; 71020; 80053; 80306; 80320; 81000; 82945; 82962; 83605; 83735; 84157; 84484; 85007; 85027; 85610; 87040; 87070; 87205; 89051; 93005; 96365; 96375; 96376

== ENCOUNTER → 2017-01-26 | Outpatient (CLI) | payer MEDICARE ==
[~2017-01-26] MED LIST changes: +CEFD300C3 PO
--- NOTE | 2017-01-26 12:16 | Diagnostic Imaging Report ---
EXAMINATION: Magnetic resonance imaging of the left shoulder without contrast. DATE: January 26, 2017. COMPARISON: None. HISTORY: 56-year-old male, left shoulder numbness. TECHNIQUE: Magnetic Resonance Imaging sequences were performed of the shoulder without contrast. FINDINGS: ROTATOR CUFF, LIGAMENTS, TENDONS, AND MUSCLES: The supraspinatus, infraspinatus, teres minor, and subscapularis tendons and muscles are intact. There is normal rotator cuff muscle bulk and signal. LONG HEAD OF BICEPS: The biceps labral attachment and long head of the biceps tendon is intact. The long head of the biceps tendon is normally positioned within the bicipital groove. GLENOHUMERAL JOINT: The humeral head is well positioned relative to the glenoid. The labrum is grossly intact. There is no paralabral cyst. The articular cartilage is intact. There is no joint effusion. ACROMIOCLAVICULAR JOINT: The acromioclavicular joint is normally aligned. The coracoclavicular and coracoacromial ligaments are intact. There are very mild acromioclavicular degenerative changes without undersurface osteophyte. BONE: The bones all have normal configuration. The bone marrow signal is within normal limits. Specifically, negative for fracture, osteomyelitis, osteonecrosis, or marrow replacing process. BURSAE AND SOFT TISSUES: The bursae and soft tissue surrounding the shoulder are unremarkable. IMPRESSION: 1. Intact rotator cuff. 2. Normal intramuscular signal and muscle bulk. Specifically, no evidence of denervation related muscle edema or fatty atrophy. 3. Unremarkable appearance of the glenohumeral joint. 4. Very mild acromioclavicular degenerative changes without undersurface osteophyte. 5. No acute fracture or bone contusion. Dictated by: Dictated on workstation # [id number]
== END ==
LOC: RAD 10:49
PROVIDERS: ATTEND Orthopaedic Surgery
DX: M75.112 Incomplete rotator cuff tear or rupture of left shoulder, not specified as traumatic (principal)
CPT/HCPCS: 73221

== ENCOUNTER → 2017-02-07 | Outpatient (CLI) | payer MEDICARE ==
--- NOTE | 2017-02-07 15:48 | Diagnostic Imaging Report ---
PROCEDURE: MR imaging cervical spine without contrast. TECHNIQUE: Multiplanar, multisequence MR imaging of the cervical spine was performed without contrast. INDICATION: Left upper arm pain. Neck pain. FINDINGS: There is suggestion of pre-existing relatively narrow AP dimension of the spinal canal on congenital basis. There is evidence of prior anterior fusion with susceptibility artifacts suggestive of anterior screws and plate involving C5, C6, and C7 levels. There is suggestion of osseous fusion between C5 and C6 vertebral bodies and perhaps posterior osseous bridging of C6 and C7 vertebral bodies. No evidence of posterior hardware is seen. The lordotic curvature is straightened. There is a satisfactory alignment of the posterior spinal line. The other vertebral bodies demonstrate normal height. There is a mild bone marrow edema around the C4-C5 disc suggestive of reactive changes. Disc desiccation at all levels is seen. There is a mild disc height loss at C7-T1 and T1-T2 levels. The foramen magnum and the upper spinal canal are patent. C2-C3: There is mild thickening of the posterior longitudinal ligament and posterior ligaments with perhaps minimal disc herniation. This is superimposed on relatively narrow AP dimension of the spinal canal resulting in mild spinal canal stenosis reducing the AP dimension of the canal to 9.3 mm. Uncovertebral and facet joint arthropathy results in foraminal stenosis severe on the left and mild on the right side. C3-C4: No significant disc herniation or spinal canal stenosis. No cord compression. There is T2 hyperintense signal in the cord at this level seen favored to be an artifact as it is not reproduced on the T2 fat-sat sagittal images. The facets and uncovertebral joints demonstrate degenerative changes severe on the left side and moderate on the right. There is ytnysvoe-oq-mzlnjt foraminal stenosis bilaterally. C4-C5: There is a mild spur disc complex and posterior longitudinal ligament thickening associated with mild spinal canal stenosis reducing the AP dimension of the canal to 9.1 mm. There is bilateral neural foramina stenosis severe on the left and vhvyyqeb-gl-skvlkf on the right side. C5-C6: There is fusion of the vertebral bodies with no spinal canal stenosis. The neural foramina demonstrate iyji-jk-oodvpjfo narrowing bilaterally. C6-C7: There is a vertebral body fusion with no spinal canal stenosis. There is a mild foraminal narrowing on the left and patent foramina on the right side. C7-T1: There is mild disc spur complex with no spinal canal stenosis. The foramina at this level demonstrate mild stenosis on the left and moderate severe stenosis on the right. T1-T2: There is a spur disc complex associated with mild spinal canal stenosis reducing the AP dimension of the canal to 9.5 mm. Severe bilateral foraminal stenosis is seen however worse on the left side. This appears to be primarily secondary to facet arthropathy. T2-T3: There is a disc spur complex with no significant spinal canal stenosis. The foramina demonstrate no significant stenosis. IMPRESSION: There are postoperative changes with anterior fusion at C5 through C7. 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 Superimposed, relatively mild disc disease above the fused levels and at C7-T1 and upper thoracic spine levels are seen. There is multilevel significant foraminal stenosis as described. Dictated by: Dictated on workstation # [id number]
== END ==
LOC: RAD 13:51
PROVIDERS: ATTEND Nurse Practitioner Family
DX: M79.622 Pain in left upper arm (principal); M48.02 Spinal stenosis, cervical region; Z98.1 Arthrodesis status
CPT/HCPCS: 72141

== ENCOUNTER → 2017-05-09 | Outpatient (CLI) | payer MEDICARE ==
[~2017-05-09] MED LIST changes: +CATHETER FLUSH 10 ML SYR IV PRN; +IOHEXOL 350 MG/ML 100 ML (OMNIPAQUE 350) VIAL IV ONE; +NS 100 ML (IVPB) BAG IV ONE
[2017-05-09 14:53] LABS: BLOOD UREA NITROGEN 11 MG/DL (7-18); BUN/CREATININE RATIO 14; CREATININE SERUM 0.79 MG/DL (0.60-1.30); GFR ESTIMATED > 60
--- NOTE | 2017-05-09 16:55 | Diagnostic Imaging Report ---
PROCEDURE: CT chest with contrast only. TECHNIQUE: Multiple contiguous axial images were obtained through the chest after administration of intravenous contrast. INDICATION: History of pulmonary nodules and interstitial lung disease. COMPARISON: 04/26/2014 and 11/05/2016. FINDINGS: Bilateral pulmonary nodules and micronodules are again identified. The largest reference nodule on the left is again identified within the left upper lobe adjacent to the major fissure and measures 1.3 cm on today's exam. This is stable when compared to similar re-measurements of 1.2 cm on exam dated 11/13/2013. Multiple other smaller micronodules are also seen bilaterally. A 4 mm subpleural micronodule within the anterior margins of the right upper lobe is again identified and is stable. There is also a subpleural micronodule within the anterior margins of the right middle lobe measuring approximately 4 to 5 mm (image 44, series 2). This too is stable compared to 11/13/2013. No new dominant pulmonary nodule or mass is seen on either side. Evaluation of the remainder of the lungs demonstrates scattered areas of groundglass density intermixed with areas of more focal lucency. There are also areas of interstitial thickening. Findings are suggestive of air trapping with probable background of chronic interstitial lung disease. There is no focal consolidation, pleural effusion, nor pneumothorax. Cardiomediastinal structures show normal heart size. There is no large pericardial effusion. There are prominent bilateral hilar and mediastinal lymph nodes. The largest right hilar lymph node measures 1.4 x 2.7 cm. Comparison to prior exam is suboptimal given lack of IV contrast on those studies, but corresponding lymph node does appear to measure 2.5 x 1.2 cm on exam dated 11/13/2013. Right paratracheal lymph node on today's study measures 1.1 cm in diameter. This is stable compared to 1.1 cm. There is calcified coronary atherosclerosis. Diffuse mixed calcified and noncalcified aortic atherosclerosis is also noted. Osseous structures show no acute abnormalities. No lytic or blastic bony lesions are seen. Included portions of the upper abdomen are unremarkable. IMPRESSION: 1. Bilateral pulmonary nodules and micronodules as described above. No new dominant nodule or mass is identified. May want to consider yearly low-dose screening CT chest. 2. Interstitial lung disease with likely some component of underlying emphysematous change. Overall appearance is stable. Correlation with history of smoking is recommended. Considerations include, but are not limited to RB-ILD or other nonspecific interstitial pneumonitis. 3. Stable bilateral hilar and mediastinal adenopathy. Dictated by: Dictated on workstation # [id number]
== END ==
LOC: RAD 14:26
PROVIDERS: ATTEND Internal Medicine Critical Care Medicine
DX: R91.8 Other nonspecific abnormal finding of lung field (principal); J84.9 Interstitial pulmonary disease, unspecified; Z72.0 Tobacco use
CPT/HCPCS: 36415; 71260; 82565; 84520

== ENCOUNTER 2017-07-03 15:43 | Emergency (ER) | payer MEDICARE ==
[~2017-07-03] VITALS: Ht 188 cm; Wt 95.3 kg
[~2017-07-03 15:43] MED LIST changes: -CATHETER FLUSH 10 ML SYR IV PRN; +CODE118S2; +DOXY100C2; +GLIM1TAB; +GUAI200T4 PO; +HYDR-3812; -IOHEXOL 350 MG/ML 100 ML (OMNIPAQUE 350) VIAL IV ONE; +LISI10TA2; -NS 100 ML (IVPB) BAG IV ONE; +PREG150C
[2017-07-03] MEDS ORDERED: diphenhydrAMINE 50 MG/ML INJ (BENADRYL) ONE (15:45)
[2017-07-03] MEDS ORDERED: FAMOTIDINE 20MG/2ML IV (PEPCID) ONE (15:45)
[2017-07-03] MEDS ORDERED: methylPREDNISolone 125 MG (Solu-MEDROL) VIAL ONE (15:45)
[2017-07-03] MEDS ORDERED: NS IV 1000 ML 1,000 ML ONE (15:46)
[2017-07-03] MEDS ORDERED: NS IV 1000 ML 1,000 ML IV ONE (15:51)
[2017-07-03] MEDS ORDERED: diphenhydrAMINE 50 MG/ML INJ (BENADRYL) IV STA (15:51)
[2017-07-03] MEDS ORDERED: FAMOTIDINE 20MG/2ML IV (PEPCID) IV STA (15:51)
[2017-07-03] MEDS ORDERED: methylPREDNISolone 125 MG (Solu-MEDROL) VIAL IV STA (15:51)
--- NOTE | 2017-07-03 16:27 | ED General ---
General Chief Complaint: Allergic Reaction Stated Complaint: ALLERGIC REACTION TO MEDICATION Nursing Triage Note: PT STATES HAVING ALLERGIC RX, STATES FEELS LIKE MOUTH IS SWELLING UP STATES BODY IS REDDEND. PT WAS SEEN IN ED LAST PM AND GIVEN MEDS IV Nursing Sepsis Screen: No Definite Risk Source of Information: Patient Exam Limitations: No Limitations History of Present Illness Time Seen by Provider: 15:37 Initial Comments Here with report of having an allergic reaction. He was seen this morning for abdominal pain and was given a shot of Rocephin. Patient is on doxycycline and prednisone and reports taking those this morning as directed. He states that the skin redness and fullness in his throat occurred near the time of CT but this is also when he was getting his Rocephin injection IV so unsure which one is the cause. He has had multiple CT scans with contrast previously and has not had any problems. No history of any allergies. Notes redness of the skin. Denies nausea or vomiting. Timing/Duration: 12 Hours Severity: Mild Modifying Factors: improves with Medication Associated Systoms: No Cough, No Fever/Chills, No Nausea/Vomiting, Rash, No Shortness of Air, No Weakness Allergies and Home Medications Allergies Coded Allergies: No Known Drug Allergies (Unverified , 05/31/13) Home Medications Albuterol Sulfate 8.5 Gm Hfa.aer.ad, 2 PUFF INH Q4H PRN for SHORTNESS OF BREATH, (Reported) Doxycycline Hyclate 100 Mg Capsule, (Reported) Glimepiride 1 Mg Tablet, (Reported) Guaifenesin 200 Mg Tablet, 200 MG PO Q4H PRN for COUGH, #30 Ref 0 Prescribed by: DALE BRANCH on 07/03/17 0420 Hydrocodone/Acetaminophen 1 Each Tablet, (Reported) Insulin Aspart 100 Unit/1 Ml Susp, 10 UNITS SQ BID WITH MEALS, (Reported) Insulin Determir 1,000 Units/10 Ml Soln, 35 UNITS SQ BID, (Reported) Lisinopril 10 Mg Tablet, (Reported) Metoprolol Tartrate 50 Mg Tablet, 50 MG PO DAILY, (Reported) Ondansetron 4 Mg Tab.rapdis, 1 TAB SL Q4H PRN for NAUSEA, #24 Ref 1 Prescribed by: NILAY BOWDEN on 06/27/16 1217 Pantoprazole Sodium 40 Mg Tablet.dr, 40 MG PO DAILY, (Reported) Pregabalin 150 Mg Capsule, (Reported) Promethazine HCl/Codeine 118 Ml Syrup, (Reported) Constitutional: see HPI, No chills, No fever EENTM: see HPI, other (feels fullness in his throat and tongue) Respiratory: no symptoms reported Cardiovascular: no symptoms reported Gastrointestinal: no symptoms reported Genitourinary: no symptoms reported Musculoskeletal: no symptoms reported Skin: see HPI, change in color, rash Psychiatric/Neurological: No Symptoms Reported All Other Systems Reviewed Negative Unless Noted: Yes Past Psirago-Rqkiap-Notgre Hx Patient Social History Alcohol Use: Occasionally Uses Number of Drinks Today: 0 Alcohol Beverage of Choice: Beer Recreational Drug Use: Yes Drug of Choice: CANNIBUS Smoking Status: Current Everyday Smoker Type Used: Cigarettes Recent Foreign Travel: No Contact w/Someone Who Travel: No Recent Infectious Disease Expo: No Recent Hopitalizations: No Physical Abuse: No Sexual Abuse: No Immunizations Up To Date Tetanus Booster (TDap): Less than 5yrs PED Vaccines UTD: No Date of Pneumonia Vaccine: January 20, 2010 Date of Influenza Vaccine: Jun 20, 2016 Seasonal Allergies Seasonal Allergies: Yes Surgeries History of Surgeries: Yes (HERNIA REPAIR, ENE-SPINE SURGERY X2, RT KNEE SCOPE, CARDIAC CATH) Surgeries: Abdominal, Cardiac, Orthopedic Respiratory History of Respiratory Disorde: Yes (INTERSTITIAL LUNG DISEASE, OXYGEN PRN) Respiratory Disorders: Pneumonia, Sleep Apnea, COPD Currently Using CPAP: No Currently Using BIPAP: No Cardiovascular History of Cardiac Disorders: Yes (LBBB, CARDIAC CATH) Cardiac Disorders: High Cholesterol, Hypertension Neurological History of Neurological Disord: Yes (NEUROPATHY IN FEET) Neurological Disorders: Neuropathy Reproductive System Hx Reproductive Disorders: No (ERECTILE DYSFUNCTION) Sexually Transmitted Disease: No HIV/AIDS: No Gastrointestinal History of Gastrointestinal Di: Yes Gastrointestinal Disorders: Gastroesophageal Reflux Musculoskeletal History of Musculoskeletal Dis: Yes (CHRONIC GENERALIZED PAIN, CHRONIC NECK AND BACK PAIN ) Musculoskeletal Disorders: Degenerate Disk Disease, Arthritis, Fibromyalgia, Chronic Back Pain Endocrine History of Endocrine Disorders: Yes Endocrine Disorders: Diabetes, Insulin dep HEENT Loss of Vision: Denies Hearing Impairment: Hard of Hearing Cancer History of Cancer: No Psychosocial History of Psychiatric Problem: Yes Behavioral Health Disorders: Anxiety Suicide Risk Score: 0 Integumentary History of Skin or Integumenta: No Blood Transfusions History of Blood Disorders: No Adverse Reaction to a Blood Tr: No Reviewed Nursing Assessment Reviewed/Agree w Nursing PMH: Yes Family Medical History Significant Family History: No Pertinent Family Hx Family Medial History: Cancer 03 MOTHER Cancer of colon 03 MOTHER Cataract 03 MOTHER Chest pain 03 FATHER Family history: Cardiovascular disease 03 FATHER Family history: Diabetes mellitus 09 BROTHER Headache 03 FATHER 03 MOTHER 09 BROTHER 09 BROTHER Heart disease 03 FATHER Myocardial infarction 03 FATHER Stroke 09 BROTHER No Family History of: Abdominal aortic aneurysm Hi's disease Alcoholism Aphasia Congenital heart disease Congestive heart failure Cystic fibrosis Dementia Dysphagia Family history: Allergy Family history: Alzheimer's disease Family history: Arthritis Family history: Asthma Family history: Breast disease Family history: Coronary thrombosis Family history: Gastrointestinal disease Family history: Glaucoma Family history: Hypertension Family history: Osteoporosis Family history: Thyroid disorder Hearing loss Hereditary disease History of - anemia History of - disorder History of - respiratory disease History of drug abuse Human immunodeficiency virus (HIV) seropositivity Hypercholesterolemia Infertile Kidney disease Malignant neoplasm of lung Parkinson's disease Prostate cancer Psychotic disorder Seizure disorder Tuberculosis Visual impairment Physical Exam Vital Signs Vital Sign - Last 12Hours 07/03/17 16:09 Temp 97.9 Pulse 81 Resp 18 B/P (MAP) 161/92 Pulse Ox 92 O2 Delivery Room Air Capillary Refill : Less Than 3 Seconds General Appearance: No Apparent Distress, WD/WN HEENT: PERRL/EOMI, Pharynx Normal Neck: Non Tender, Supple Respiratory: Lungs Clear, Normal Breath Sounds Cardiovascular: Regular Rate, Rhythm, No Murmur Gastrointestinal: Non Tender, Soft Back: Normal Inspection, No CVA Tenderness, No Vertebral Tenderness Extremity: Normal Range of Motion, Non Tender Neurologic/Psychiatric: Alert, Oriented x3 Skin: Warm/Dry, Rash (rash or redness of skin to the arms and trunk noted.) Progress/Results/Core Measures Results/Orders My Orders Orders - LILIBETH DURAN MD Famotidine Injection (Pepcid Injection) (07/03/17 15:51) Diphenhydramine Injection (Benadryl Inje (07/03/17 15:51) Methylprednisolone Sod Succ (Solu-Medrol (07/03/17 15:51) Ns Iv 1000 Ml (Sodium Chloride 0.9%) (07/03/17 15:51) Diphenhydramine Injection (Benadryl Inje (07/03/17 15:45) Methylprednisolone Sod Succ (Solu-Medrol (07/03/17 15:45) Famotidine Injection (Pepcid Injection) (07/03/17 15:45) Ns Iv 1000 Ml (Sodium Chloride 0.9%) (07/03/17 15:46) Medications Given in ED Current Medications Medications Dose Ordered Sig/Gale Route Start Time Stop Time Status Last Admin Dose Admin Sodium Chloride 1,000 ml @ 0 mls/hr Q0M ONCE IV 07/03/17 15:51 07/03/17 15:54 DC 07/03/17 16:02 1,000 MLS/HR Vital Signs/I&O Vital Sign - Last 12Hours 07/03/17 16:09 Temp 97.9 Pulse 81 Resp 18 B/P (MAP) 161/92 Pulse Ox 92 O2 Delivery Room Air Blood Pressure Mean: 115 Progress Note : Progress Note Seen and evaluated. IV, normal saline 1 L bolus, Benadryl 25 mg IV, Pepcid 20 mg IV and Solu-Medrol 125 mg IV ordered. Monitor patient. 1745: Overall improved. Patient has steroids at home. He also has Benadryl. We will continue Pepcid outpatient. Discharged home with return precautions. Patient verbalize understanding instructions and agreement with plan. Departure Impression Impression: Primary Impression: Adverse drug reaction Qualified Codes: T88.7XXA - Unspecified adverse effect of drug or medicament, initial encounter Disposition: HOME, SELF-CARE Condition: Improved Departure-Patient Inst. Decision time for Depature: 17:50 Referrals: NELI SIMPSON DO (PCP) Primary Care Physician TATYANA CHAPPELL (Family) Primary Care Physician Patient Instructions: Drug Allergy Add. Discharge Instructions: All discharge instructions reviewed with patient and/or family. Voiced understanding. You appear to be allergic to cephalosporins (Rocephin). You may take Benadryl 25 or 50 mg every 6 hours as needed for itching. You should take Pepcid ( generic his famotidine) 20 mg twice daily for the next 3 days and then as needed. Continue home medications as directed. Return for worse pain, fever, vomiting, weakness, breathing problems or other concerns as needed. Follow-up with your DrAdrian in a few days for recheck. LILIBETH DURAN MD Jul 03, 2017 16:27
[2017-07-03 17:54] VITALS: BP 145/84
== END 2017-07-03 17:59 | disposition home or self-care (01) ==
LOC: EDUNIT# 15:43 → ER 15:44
DX: R10.9 Unspecified abdominal pain (principal); J44.9 Chronic obstructive pulmonary disease, unspecified; E78.00 Pure hypercholesterolemia, unspecified; I10 Essential (primary) hypertension; E11.40 Type 2 diabetes mellitus with diabetic neuropathy, unspecified; K21.9 Gastro-esophageal reflux disease without esophagitis; M47.9 Spondylosis, unspecified; F41.9 Anxiety disorder, unspecified; Z80.0 Family history of malignant neoplasm of digestive organs; Z82.49 Family history of ischemic heart disease and other diseases of the circulatory system; T36.4X5A Adverse effect of tetracyclines, initial encounter; T38.0X5A Adverse effect of glucocorticoids and synthetic analogues, initial encounter
CPT/HCPCS: 96361; 96374; 96375

== ENCOUNTER 2017-08-05 16:24 | Inpatient (IN) | payer MEDICARE ==
[~2017-08-05] VITALS: Ht 182.9 cm; Wt 106.7 kg
[2017-08-05] VITALS (12 sets, daily range): BP systolic 109–137; BP diastolic 69–81
[~2017-08-05 16:24] MED LIST changes: +ESCI10TA PO; -GLIM1TAB; +GLIM1TAB PO; -LISI10TA2; +LISI10TA2 PO; -PREG150C; +PREG150C PO
[2017-08-05] MEDS ORDERED: NS IV 1000 ML 1,000 ML IV ONE ×3 (16:49→18:36)
[2017-08-05 16:59] LABS: BASOPHILS # (AUTO) 0.1 10^3/uL (0.0-0.1); BASOPHILS % (AUTO) 1 % (0-10); EOSINOPHILS # (AUTO) 0.3 10^3/uL (0.0-0.3); EOSINOPHILS % (AUTO) 2 % (0-10); LYMPHOCYTES # (AUTO) 3.8 X 10^3 (1.0-4.0); LYMPHOCYTES % (AUTO) 25 % (12-44); MEAN CORPUSCULAR HEMOGLOBIN 29 PG (25-34); MEAN CORPUSCULAR HGB CONC 35 G/DL (32-36); MEAN CORPUSCULAR VOLUME 84 FL (80-99); MEAN PLATELET VOLUME 10.2 FL (7.4-10.4); MONOCYTES % (AUTO) 7 % (0-12); NEUTROPHILS % (AUTO) 66 % (42-75); PLATELET COUNT 276 10^3/uL (130-400); RED BLOOD COUNT 5.28 10^6/uL (4.35-5.85); RED CELL DISTRIBUTION WIDTH 13.7 % (10.0-14.5); WHITE BLOOD COUNT 15.2 10^3/uL (4.3-11.0)
--- NOTE | 2017-08-05 16:59 | ED Cardiac General ---
History of Present Illness General Chief Complaint: Cardiac/General Problems Stated Complaint: DIZZINESS/LOW BP/CHEST TIGHTNESS Source: patient, spouse Exam Limitations: no limitations History of Present Illness Time seen by provider: 16:54 Initial Comments Patient presents to ER by private conveyance with his with a chief complaint that he felt tired and dizzy and lightheaded like he could pass out so he had his check his blood pressure was very low with a systolic pressure of 70. This is happened to him in the past when he was diagnosed with a atypical pneumonia sometime in early May. He down 4 rounds of antibiotics since then and has also been on steroids. He has a history of interstitial lung disease and sees Dr. Palmer, pulmonology. He says no fevers or chills but he has had some chest pressure and heaviness. He gets lightheaded whenever he stands up. He is also diabetic using 75 units of Levemir twice a day and 12 units of NovoLog 3 times a day and said that his sugar for the past week has been very labile and had several low sugars normally his sugar runs in a very controlled manner. He was told by his primary care provider that he should've been admitted last time but this didn't happen and he's been doing okay since initiating antibiotics and steroids other than needing to try 40 from the box. Presently he is on Bactrim every other day. He has a cough but has not been productive. He has been eating and drinking okay. He said he had some loose watery stools for the past 3 or 4 days. He denies any abdominal pain , nausea or vomiting. Allergies and Home Medications Allergies Coded Allergies: ceftriaxone (Verified Allergy, Unknown, 07/03/17) Home Medications Albuterol Sulfate 8.5 Gm Hfa.aer.ad, 2 PUFF INH Q4H PRN for SHORTNESS OF BREATH, (Reported) Doxycycline Hyclate 100 Mg Capsule, (Reported) Escitalopram Oxalate 10 Mg Tablet, 10 MG PO DAILY, #20 Prescribed by: IVÁN GRACE on 07/15/17 1352 Glimepiride 1 Mg Tablet, (Reported) Guaifenesin 200 Mg Tablet, 200 MG PO Q4H PRN for COUGH, #30 Ref 0 Prescribed by: DALE BRANCH on 07/03/17 0420 Hydrocodone/Acetaminophen 1 Each Tablet, (Reported) Insulin Aspart 100 Unit/1 Ml Susp, 10 UNITS SQ BID WITH MEALS, (Reported) Insulin Determir 1,000 Units/10 Ml Soln, 35 UNITS SQ BID, (Reported) Lisinopril 10 Mg Tablet, (Reported) Metoprolol Tartrate 50 Mg Tablet, 50 MG PO DAILY, (Reported) Ondansetron 4 Mg Tab.rapdis, 1 TAB SL Q4H PRN for NAUSEA, #24 Ref 1 Prescribed by: NILAY BOWDEN on 06/27/16 1217 Pantoprazole Sodium 40 Mg Tablet.dr, 40 MG PO DAILY, (Reported) Pregabalin 150 Mg Capsule, (Reported) Promethazine HCl/Codeine 118 Ml Syrup, (Reported) Review of Systems Constitutional: see HPI, No chills, No diaphoresis, dizziness, malaise EENTM: No Blurred Vision, No Double Vision, No Nose Congestion, No Throat Pain Respiratory: Cough, Denies Shortness of Air, Denies Wheezing Cardiovascular: See HPI, Denies Chest Pain, Denies Edema, Other (chest pressure.) Gastrointestinal: Denies Abdomen Distended, Denies Abdominal Pain, Denies Constipated, Diarrhea, Denies Nausea, Denies Poor Appetite, Denies Poor Fluid Intake, Denies Vomiting Genitourinary: Denies Burning, Denies Discharge Musculoskeletal: No back pain, No joint pain Skin: No pruritus, No rash Psychiatric/Neurological: Denies Headache, Denies Numbness, Denies Paresthesia Past Fcstvfw-Rjpjaf-Imenup Hx Patient Social History Alcohol Use: Occasionally Uses Alcohol Beverage of Choice: Beer Drug of Choice: CANNIBUS Smoking Status: Former Smoker Type Used: Cigarettes Former Smoker, Quit: Jul 05, 2017 Recent Foreign Travel: No Contact w/Someone Who Travel: No Recent Hopitalizations: No Immunizations Up To Date Tetanus Booster (TDap): Less than 5yrs PED Vaccines UTD: No Date of Pneumonia Vaccine: January 20, 2010 Date of Influenza Vaccine: Jun 20, 2016 Seasonal Allergies Seasonal Allergies: Yes Surgeries History of Surgeries: Yes (HERNIA REPAIR, ENE-SPINE SURGERY X2, RT KNEE SCOPE, CARDIAC CATH) Surgeries: Abdominal, Cardiac, Orthopedic Respiratory History of Respiratory Disorde: Yes (INTERSTITIAL LUNG DISEASE, OXYGEN PRN) Respiratory Disorders: Pneumonia, Sleep Apnea, COPD Currently Using CPAP: No Currently Using BIPAP: No Cardiovascular History of Cardiac Disorders: Yes (LBBB, CARDIAC CATH) Cardiac Disorders: High Cholesterol, Hypertension Neurological History of Neurological Disord: Yes (NEUROPATHY IN FEET) Neurological Disorders: Neuropathy Reproductive System Hx Reproductive Disorders: No (ERECTILE DYSFUNCTION) Sexually Transmitted Disease: No HIV/AIDS: No Gastrointestinal History of Gastrointestinal Di: Yes Gastrointestinal Disorders: Gastroesophageal Reflux Musculoskeletal History of Musculoskeletal Dis: Yes (CHRONIC GENERALIZED PAIN, CHRONIC NECK AND BACK PAIN ) Musculoskeletal Disorders: Degenerate Disk Disease, Arthritis, Fibromyalgia, Chronic Back Pain Endocrine History of Endocrine Disorders: Yes Endocrine Disorders: Diabetes, Insulin dep HEENT Loss of Vision: Denies Hearing Impairment: Hard of Hearing Cancer History of Cancer: No Psychosocial History of Psychiatric Problem: Yes Behavioral Health Disorders: Anxiety Integumentary History of Skin or Integumenta: No Blood Transfusions History of Blood Disorders: No Adverse Reaction to a Blood Tr: No Family Medical History Significant Family History: No Pertinent Family Hx Family Medial History: Cancer 03 MOTHER Cancer of colon 03 MOTHER Cataract 03 MOTHER Chest pain 03 FATHER Family history: Cardiovascular disease 03 FATHER Family history: Diabetes mellitus 09 BROTHER Headache 03 FATHER 03 MOTHER 09 BROTHER 09 BROTHER Heart disease 03 FATHER Myocardial infarction 03 FATHER Stroke 09 BROTHER No Family History of: Abdominal aortic aneurysm Hi's disease Alcoholism Aphasia Congenital heart disease Congestive heart failure Cystic fibrosis Dementia Dysphagia Family history: Allergy Family history: Alzheimer's disease Family history: Arthritis Family history: Asthma Family history: Breast disease Family history: Coronary thrombosis Family history: Gastrointestinal disease Family history: Glaucoma Family history: Hypertension Family history: Osteoporosis Family history: Thyroid disorder Hearing loss Hereditary disease History of - anemia History of - disorder History of - respiratory disease History of drug abuse Human immunodeficiency virus (HIV) seropositivity Hypercholesterolemia Infertile Kidney disease Malignant neoplasm of lung Parkinson's disease Prostate cancer Psychotic disorder Seizure disorder Tuberculosis Visual impairment Physical Exam Vital Signs Vital Sign - Last 12Hours 08/05/17 08/05/17 16:40 16:54 Temp 96.3 Pulse 66 66 82 Resp 16 B/P (MAP) 92/63 Pulse Ox 97 O2 Delivery Nasal Cannula O2 Flow Rate 3.00 Capillary Refill : General Appearance: WD/WN, Anxious, Mild Distress HEENT: PERRL/EOMI, Pharynx Normal Neck: Full Range of Motion, Supple Respiratory: Chest Non Tender, Lungs Clear, Normal Breath Sounds, No Accessory Muscle Use, No Respiratory Distress Cardiovascular: Regular Rate, Rhythm, No Edema, Normal Peripheral Pulses Gastrointestinal: Normal Bowel Sounds, Non Tender, Soft Extremity: Normal Capillary Refill, Normal Inspection, Non Tender, No Calf Tenderness, No Pedal Edema Neurologic/Psychiatric: Alert, Oriented x3 Skin: Normal Color, Warm/Dry Focused Exam Evaluation Lactate Level Laboratory Tests 08/05/17 17:00: Lactic Acid Level 1.70 Lactic Acid Level Laboratory Tests Test 08/05/17 17:00 Lactic Acid Level 1.70 MMOL/L (0.50-2.00) Progress/Results/Core Measures Results/Orders Lab Results Laboratory Tests Test 08/05/17 16:39 08/05/17 16:47 08/05/17 17:00 08/05/17 18:07 Range/Units White Blood Count 15.2 H 4.3-11.0 10^3/uL Red Blood Count 5.28 4.35-5.85 10^6/uL Hemoglobin 15.5 13.3-17.7 G/DL Hematocrit 45 40-54 % Mean Corpuscular Volume 84 80-99 FL Mean Corpuscular Hemoglobin 29 25-34 PG Mean Corpuscular Hemoglobin Concent 35 32-36 G/DL Red Cell Distribution Width 13.7 10.0-14.5 % Platelet Count 276 130-400 10^3/uL Mean Platelet Volume 10.2 7.4-10.4 FL Neutrophils (%) (Auto) 66 42-75 % Lymphocytes (%) (Auto) 25 12-44 % Monocytes (%) (Auto) 7 0-12 % Eosinophils (%) (Auto) 2 0-10 % Basophils (%) (Auto) 1 0-10 % Neutrophils # (Auto) 10.0 H 1.8-7.8 X 10^3 Lymphocytes # (Auto) 3.8 1.0-4.0 X 10^3 Monocytes # (Auto) 1.0 0.0-1.0 X 10^3 Eosinophils # (Auto) 0.3 0.0-0.3 10^3/uL Basophils # (Auto) 0.1 0.0-0.1 10^3/uL Neutrophils % (Manual) 54 % Lymphocytes % (Manual) 42 % Monocytes % (Manual) 2 % Eosinophils % (Manual) 0 % Basophils % (Manual) 2 % Band Neutrophils 0 % Blood Morphology Comment NORMAL Prothrombin Time 12.6 12.2-14.7 SEC INR Comment 0.9 0.8-1.4 Activated Partial Thromboplast Time 28 24-35 SEC Sodium Level 132 L 135-145 MMOL/L Potassium Level 4.5 3.6-5.0 MMOL/L Chloride Level 99 98-107 MMOL/L Carbon Dioxide Level 24 21-32 MMOL/L Anion Gap 9 5-14 MMOL/L Blood Urea Nitrogen 17 7-18 MG/DL Creatinine 1.04 0.60-1.30 MG/DL Estimat Glomerular Filtration Rate > 60 BUN/Creatinine Ratio 16 Glucose Level 234 H 70-105 MG/DL Calcium Level 9.2 8.5-10.1 MG/DL Magnesium Level 1.9 1.8-2.4 MG/DL Total Bilirubin 0.8 0.1-1.0 MG/DL Aspartate Amino Transf (AST/SGOT) 15 5-34 U/L Alanine Aminotransferase (ALT/SGPT) 26 0-55 U/L Alkaline Phosphatase 53 40-136 U/L Troponin I < 0.30 <0.30 NG/ML B-Type Natriuretic Peptide 17.5 <100.0 PG/ML Total Protein 7.0 6.4-8.2 GM/DL Albumin 4.1 3.2-4.5 GM/DL Thyroid Stimulating Hormone (TSH) 2.73 0.35-4.94 UIU/ML Glucometer 205 H 70-110 MG/DL Lactic Acid Level 1.70 0.50-2.00 MMOL/L Urine Color MG H Urine Clarity CLEAR Urine pH 6 5-9 Urine Specific [place] 1.025 H 1.016-1.022 Urine Protein 1+ H NEGATIVE Urine Glucose (UA) 1+ H NEGATIVE Urine Ketones NEGATIVE NEGATIVE Urine Nitrite NEGATIVE NEGATIVE Urine Bilirubin NEGATIVE NEGATIVE Urine Urobilinogen 1 NORMAL MG/DL Urine Leukocyte Esterase 1+ H NEGATIVE Urine RBC (Auto) NEGATIVE NEGATIVE Urine RBC NONE /HPF Urine WBC 2-5 /HPF Urine Squamous Epithelial Cells 0-2 /HPF Urine Crystals NONE /LPF Urine Bacteria NONE /HPF Urine Casts NONE /LPF Urine Mucus SMALL H /LPF Urine Culture Indicated NO Micro Results Microbiology 08/05/17 Influenza Types A,B Antigen (ARMINDA) - Final, Complete My Orders Orders - DALE BRANCH Ekg Tracing (08/05/17 16:28) Saline Lock/Iv-Start (08/05/17 16:49) Ns Iv 1000 Ml (Sodium Chloride 0.9%) (08/05/17 16:49) Cbc With Automated Diff (08/05/17 16:49) Comprehensive Metabolic Panel (08/05/17 16:49) Lactic Acid Analyzer (08/05/17 16:49) Blood Culture (08/05/17 16:49) Sputum Culture (08/05/17 16:49) Ua Culture If Indicated (08/05/17 16:49) Protime With Inr (08/05/17 16:49) Partial Thromboplastin Time (08/05/17 16:49) O2 (08/05/17 16:49) Saline Lock/Iv-Start (08/05/17 16:49) Troponin I (08/05/17 16:49) Vital Signs Adult Sepsis Patie Q1H (08/05/17 16:49) Remove Rings In Anticipation O (08/05/17 16:49) Influenza A And B Antigens (08/05/17 16:49) BNP (08/05/17 16:49) Magnesium (08/05/17 16:49) Thyroid Stimulating Hormone (08/05/17 16:49) Chest Pa/Lat (2 View) (08/05/17 16:49) Manual Differential (08/05/17 16:39) Ns Iv 1000 Ml (Sodium Chloride 0.9%) (08/05/17 17:07) Ns Iv 1000 Ml (Sodium Chloride 0.9%) (08/05/17 18:00) Piperacillin Sodium/Tazobactam (Zosyn Vi (08/05/17 18:15) Vancomycin Injection (Vancomycin Injecti (08/05/17 18:15) Ns Iv 1000 Ml (Sodium Chloride 0.9%) (08/05/17 18:36) Medications Given in ED Current Medications Medications Dose Ordered Sig/Gale Route Start Time Stop Time Status Last Admin Dose Admin Sodium Chloride 1,000 ml @ 0 mls/hr Q0M ONCE IV 08/05/17 16:49 08/05/17 16:53 DC 08/05/17 17:02 1,000 MLS/HR Sodium Chloride 1,000 ml @ 0 mls/hr Q0M ONCE IV 08/05/17 17:07 08/05/17 17:08 DC 08/05/17 17:39 1,000 MLS/HR Vital Signs/I&O Vital Sign - Last 12Hours 08/05/17 08/05/17 08/05/17 16:40 16:54 17:07 Temp 96.3 Pulse 66 79 66 82 Resp 16 B/P (MAP) 92/63 Pulse Ox 97 O2 Delivery Nasal Cannula Nasal Cannula O2 Flow Rate 3.00 3.00 Point of Care Testing Finger Stick Blood Glucose: 247 Progress Note : Time: 16:58 Progress Note Patient has over hypotension with worsening orthostatic vital signs on standing and sitting area. We will start some IV fluids and work him up for sepsis. He's been on steroids so I don't trust the fact that he is afebrile. His EKG looks unchanged from last time. We will obtain a troponin as he has a left bundle branch block it's very difficult to interpret his EKG. Top on the differential still is sepsis. ECG Initial ECG Impression Date: Aug 05, 2017 Initial ECG Impression Time: 16:30 Initial ECG Rate: 66 Initial ECG Rhythm: Normal Sinus Initial ECG Intervals: TN (180 ms) Initial ECG Impression: Nonspecific Changes (left bundle branch block) Initial ECG Comparisson: Unchanged Comment Stable EKG without T-wave elevation or depression appreciable. Diagnostic Imaging Diagonstic Imaging: Xray (2v) Plain Films/CT/US/NM/MRI: chest Comments NAME: EHSAN ZUÑIGA [facility] REC#: [id number] PT STATUS: REG ER : 1960 PHYSICIAN: DALE BRANCH MD ADMIT DATE: 08/05/17/ER Draft Date of Exam:08/05/17 CHEST PA/LAT (2 VIEW) INDICATION: Dizziness. EXAMINATION: PA and lateral views of the chest. FINDINGS: The heart size and vascularity are normal. Lungs are clear. There is no effusion. There is no acute bony abnormality. IMPRESSION: No acute abnormality is seen. There is no change from 07/15/2017. Dictated on workstation # [id number] Dict: 08/05/17 1738 Trans: 08/05/17 174 [id number] Interpreted by: DURGA LEVIN MD Electronically signed by: Reviewed: Reviewed by Me Departure Communication (Admissions) Time/Spoke to Admitting Phy: 18:40 Communication Discussed case imaging findings with Dr. Lakshmi Cota. She agrees with the diagnosis of community acquired pneumonia with sepsis and dehydration due to volume depletion secondary to not eating and drinking enough. She is recommending another liter fluids now and then run the fluid and normal saline at 200 mL an hour. Consult daily in the morning and consult eICU upon arrival to the ICU. She is okay with the antibiotic choice of vancomycin and Zosyn. She will see the patient and evaluate him in the morning. She agrees that in the absence of any end organ damage or evidence of hypoperfusion of just this hypotension at this is not really septic shock. We discussed the risk benefits and alternatives to starting central line and agree that it does not outweigh the risks at this time. The patient is responding to fluid resuscitation. Impression Impression: Primary Impression: Pneumonia Qualified Codes: J18.9 - Pneumonia, unspecified organism Additional Impressions: Sepsis Qualified Codes: A41.9 - Sepsis, unspecified organism Dehydration, severe Disposition: ADMITTED INPATIENT Condition: Improved Admissions Decision to Admit Reason: Admit from ER (General) Decision to Admit/Date: Aug 05, 2017 Time/Decision to Admit Time: 18:42 Departure-Patient Inst. Referrals: NELI SIMPSON DO (PCP) Primary Care Physician TATYANA CHAPPELL (Family) Primary Care Physician Copy Copies To 1: NELI SIMPSON DO Copies To 2: BRENDON PALMER TITUS J Aug 05, 2017 16:59
[2017-08-05 17:02] LABS: INR 0.9 (0.8-1.4); PROTHROMBIN TIME PATIENT 12.6 SEC (12.2-14.7)
[2017-08-05 17:13] LABS: ALANINE AMINOTRANSFERASE 26 U/L (0-55); ALBUMIN 4.1 GM/DL (3.2-4.5); ANION GAP 9 MMOL/L (5-14); ASPARTATE AMINO TRANSFERASE 15 U/L (5-34); BILIRUBIN,TOTAL 0.8 MG/DL (0.1-1.0); BLOOD UREA NITROGEN 17 MG/DL (7-18); BUN/CREATININE RATIO 16; CALCIUM 9.2 MG/DL (8.5-10.1); CARBON DIOXIDE 24 MMOL/L (21-32); CHLORIDE 99 MMOL/L (98-107); CREATININE SERUM 1.04 MG/DL (0.60-1.30); GFR ESTIMATED > 60; GLUCOSE 234 MG/DL (70-105); MAGNESIUM 1.9 MG/DL (1.8-2.4); POTASSIUM 4.5 MMOL/L (3.6-5.0); SODIUM 132 MMOL/L (135-145)
[2017-08-05 17:24] LABS: BAND NEUTROPHILS 0 %; BASOPHILS % (MANUAL) 2 %; EOSINOPHILS % (MANUAL) 0 %; LYMPHOCYTES % (MANUAL) 42 %; NEUTROPHILS % (MANUAL) 54 %
[2017-08-05 17:33] LABS: THYROID STIMULATING HORMONE 2.73 UIU/ML (0.35-4.94); TROPONIN I < 0.30 NG/ML (<0.30)
--- NOTE | 2017-08-05 17:47 | Diagnostic Imaging Report ---
INDICATION: Dizziness. EXAMINATION: PA and lateral views of the chest. FINDINGS: The heart size and vascularity are normal. Lungs are clear. There is no effusion. There is no acute bony abnormality. IMPRESSION: No acute abnormality is seen. There is no change from 07/15/2017. Dictated by: Dictated on workstation # [id number]
[2017-08-05] MEDS ORDERED: NS IV 1000 ML 1,000 ML IV SCH (18:00)
[2017-08-05 18:14] LABS: BILIRUBIN,URINE NEGATIVE (NEGATIVE); KETONES,URINE NEGATIVE (NEGATIVE); LEUKOCYTE ESTERASE ,URINE 1+ (NEGATIVE); NITRITE,URINE NEGATIVE (NEGATIVE); PH,URINE 6 (5-9); PROTEIN,URINE 1+ (NEGATIVE); UROBILINOGEN,URINE 1 MG/DL (NORMAL)
[2017-08-05] MEDS ORDERED: PIPERACILLIN SODIUM/TAZOBACTAM 4.5 GM in NS (IVPB) 100 ML IV ONE (18:15)
[2017-08-05] MEDS ORDERED: VANCOMYCIN INJECTION 1,000 MG in NS (IVPB) 250 ML IV ONE (18:15)
[2017-08-05 18:24] LABS: SQUAMOUS EPITHELIAL CELL,UR 0-2 /HPF
--- OUTSIDE RECORDS SUMMARY | 2017-08-05 18:25 | XMS REPORT | Continuity of Care Document ---
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 Role Phone [employer] Unavailable Unavailable Problems Problem Status Onset Date Classification Date Reported Comments Source Unspecified chest pain 04/12 Diagnosis 04/17/2014 [facility] No data available for this section Problem 04/17/2014 [facility] Medications Allergies, Adverse Reactions, Alerts Substance Category Reaction Severity Reaction type Status Date Reported Comments Source Nitroglycerin Assertion " made me real sick, and BP real low" Drug allergy [facility] Immunizations Immunization Date Given Site Status Last Updated Comments Source No data available for this section No data available for this section [facility]. Results Vital Signs Encounters Location Location Details Encounter Type Encounter Number Reason For Visit Attending Provider ADM Date DC Date Status Source [facility] [id number] Emergency [id number] Abelino Kaminski 04/12/2014 Active [facility] Emergency [id number] Abelino Kaminski 04/13/2014 04/14/2014 [email or web address] Procedures Plan of Care Social History Assessment and Plan Family History Value Date Source Advance Directives Order Name Results Value Date Source
--- OUTSIDE RECORDS SUMMARY | 2017-08-05 18:29 | XMS REPORT | Clinical Summary ---
Author Author [facility] Organization [facility] Address Unknown Phone Unavailable Care Team Providers Care Gum Remover Name Role Phone PCP Unavailable Source Comments Some departments are not documenting in the electronic medical record. If you do not see the information that you expected, contact Release of Information in the Health Information Management department at [phone] for further assistance in locating additional records.[facility] Allergies No Known Allergies Current Medications Prescription Sig. [...] 06/29/2013 Long-term use of immunosuppressant medication 06/29/2013 Family History Medical History Relation Name Comments Coronary Artery Disease Father Cancer Mother colon Relation Name Status Comments Father Mother Social History Tobacco Use Types Packs/Day Years Used Date Current Every Day Smoker Cigarettes 1 30 Smokeless Tobacco: Never Used Comments: Down to 0.5ppd/day since March/2013 as of 06/23/13 Alcohol Use Drinks/Week oz/Week Comments No Sex Assigned at Date Recorded Not on file Last Filed Vital Signs Vital Sign Reading Time Taken Blood Pressure 117/77 06/23/2013 12:35 PM CDT Pulse 106 06/23/2013 12:35 PM CDT Temperature 36.9 C (98.4 F) 06/23/2013 12:35 PM CDT Respiratory Rate 20 06/23/2013 12:35 PM CDT Oxygen Saturation 96% 06/23/2013 12:35 PM CDT Inhaled Oxygen - - Concentration Weight 106.8 kg (235 lb 6.4 oz) 06/23/2013 12:35 PM CDT Height 182.9 cm (6') 06/23/2013 12:35 PM CDT Body Mass Index 31.93 06/23/2013 12:35 PM CDT Plan of Treatment Health Maintenance Due Date Last Done Comments HEPATITIS C SCREENING 1960 PHYSICAL (COMPREHENSIVE) 1969 EXAM PERTUSSIS VACCINE 1973 TETANUS VACCINE 1979 COLORECTAL CANCER 2012 SCREENING INFLUENZA VACCINE 04/16/2017 Results Not on filefrom Last 3 Months
--- OUTSIDE RECORDS SUMMARY | 2017-08-05 18:34 | XMS REPORT ---
Author Author JUDY MERCER Organization [facility] Address [address] [place] [address] Care Team Providers Care Halfway House Counselor Name Role Phone JUDY MERCER Unavailable PROBLEMS Type Condition ICD9-CM Code RLU43-MG Code Onset Dates Condition Status SNOMED Code Problem Family history of colon cancer Z80.0 Active 466772786 Problem Arm paresthesia, right R20.2 Active 70339781 Problem Diabetic neuropathy, painful E11.40 Active 013248807 Problem COPD exacerbation J44.1 Active 044444130 Problem Diverticulitis K57.92 Active 357227124 Problem Gastroesophageal reflux disease without esophagitis K21.9 Active 153135948 Problem Respiratory bronchiolitis interstitial lung disease J84.115 Active 395374995 Problem Pain of right upper extremity M79.601 Active 921651768 Problem Interstitial lung disease J84.9 Active 020832757 Problem Hypoxia R09.02 Active 260809672 Problem Abdominal pain R10.9 Active 12741158 Problem long term care phlebotomist 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.4 Active 899063762 Problem Essential hypertension I10 Active 10809168 Problem Neuropathy G62.9 Active 556687188 Problem Impotence N52.9 Active 232799518 Problem Type 2 diabetes 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 E11.8 Active 84938498 Problem Coronary atherosclerosis due to lipid rich plaque I25.83 Active 59005115 Problem Obstructive sleep apnea syndrome G47.33 Active 43109379 Problem Change in bowel habit R19.4 Active 82895713 Problem Drug abuse, opioid type F11.10 Active 8869456 ALLERGIES Substance Reaction Event Type Date Status Staxyn Decreased blood pressure Drug Allergy January, Active Tramadol HCl hx of overdose Drug Allergy January, Active Hydrocodone-Acetaminophen hx of overdose Drug Allergy January, Active Clonazepam hx of overdose Drug Allergy January, Active SOCIAL HISTORY Never Assessed PLAN OF CARE VITAL SIGNS Height 74 in 2017-01-23 Weight 228.2 lbs 2017-01-23 Temperature 98.0 degrees Fahrenheit 2017-01-23 Heart Rate 88 bpm 2017-01-23 Respiratory Rate 20 2017-01-23 BMI 29.30 kg/m2 2017-01-23 Blood pressure systolic 132 mmHg 2017-01-23 Blood pressure diastolic 82 mmHg 2017-01-23 MEDICATIONS Medication Instructions Dosage Frequency Start Date End Date Duration Status Zofran ODT 4 MG Orally every 8 hrs 1 tablet on the tongue and allow to dissolve 8h Active NovoLog 100 UNIT/ML sq tid inject 15 Units by Subcutaneous route 3 times per day before meals 8h Active Lyrica 100 mg Orally 3 times a day 1 capsule 8h 30 days Active Naproxen 500 MG Orally every 12 hrs 1 tablet as needed 12h Active Levemir 100 UNIT/ML sq bid 35 units 12h Active ProAir HFA 108 (90 Base) MCG/ACT Inhalation every 4 hrs 2 puffs as needed 4h Active Symbicort 160-4.5 MCG/ACT Inhalation Twice a day 2 puffs 12h Active Oxygen 3 L/NC 24h Active Metoprolol Tartrate 50 mg Orally Twice a day 1 tablet 12h 30 Active Lisinopril 10 mg Orally Once a day 1 tablet 24h Active ibuprofen 1 tab Active Promethazine HCl 25 MG Orally 4 times a day 1 tablet as needed 6h January, Active Aspirin Adult Low Strength 81 MG Orally Once a day 1 tablet 24h Active Pantoprazole Sodium 40 mg Orally Once a day 1 tablet 24h 30 days Active Spiriva HandiHaler 18 MCG Active RESULTS No Results PROCEDURES Procedure Date Ordered Result Body Site [facility] VISIT ESTABLISHED PATIENT January 23, 2017 IMMUNIZATIONS No Known Immunizations MEDICAL (GENERAL) HISTORY Type Description Date Medical History hypertension Medical History interstitial lung disease Medical History sleep apnea-severe RENAE uses BiPAP Medical History gastroesophageal reflux disease (GERD) Medical History hyperlipidemia Medical History type II diabetes Medical History degenerative disease lumbosacral spine with radiculopathy Medical History restless leg syndrome Medical History TIA Medical History neuropathy Medical History depression Medical History hx of narcotic abuse/misuse Medical History Other and unspecified alcohol dependence, unspecified drunkenness Medical History Ulcer of other part of foot 2013 Medical History hernia Medical History Combinations of drug dependence excluding opioid type drug, unspecified abuse Medical History Major depressive disorder, recurrent episode, moderate Medical History Restless legs syndrome [RLS] Medical History Unspecified alveolar and parietoalveolar pneumonopathy Medical History Colonoscopy 2014 Dr. Kido Surgical History heart cath-40-50% ostial LAD stenosis, mild irregularity in the diatal LAD, EF 40% w/ hypokinesia involving the interior wall possible LBBB 11/2011 Surgical History transesophageal echocardiogram-EF 55-60%, normal RVSP 2012 Surgical History heart cath-50% occlusion of proximal LAD, no stent--uLpe to monitor 09/2013 Surgical History laminectomy with discectomy/cervical spine fusion C4-6 2004 and 02/2006 Surgical History arthroscopic knee surgery-right 05/2005 Surgical History Right Rotator Cuff Repair Zafuda 06/2016 Surgical History Colonoscopy Kido (1 Polyp) repeat 5 years 2019 2014 Surgical History right rotator cuff surgery 06/27/2016 Hospitalization History Overdosed on Clonazepam #35. [place] 03/2014 Hospitalization History Overdosed on Xanax 07/2012 Hospitalization History Hypostension-medication side effect-[facility] 03/13/16
--- OUTSIDE RECORDS SUMMARY | 2017-08-05 18:36 | XMS REPORT ---
Author Author TATYANA CHAPPELL [facility] Address [address] [place] [address] Care Team Providers Care Technician Support Engineer Name Role Phone TATYANA CHAPPELL Unavailable PROBLEMS Type Condition ICD9-CM Code NNZ32-DB Code Onset Dates Condition Status SNOMED Code Problem Family history of colon cancer Z80.0 Active 634624785 Problem Arm paresthesia, right R20.2 Active 45106620 Problem Diabetic neuropathy, painful E11.40 Active 590592042 Problem COPD exacerbation J44.1 Active 959766221 Problem Diverticulitis K57.92 Active 308931527 Problem Gastroesophageal reflux disease without esophagitis K21.9 Active 225016229 Problem Respiratory bronchiolitis interstitial lung disease J84.115 Active 790024894 Problem Pain of right upper extremity M79.601 Active 221324934 Problem Interstitial lung disease J84.9 Active 284672947 Problem Hypoxia R09.02 Active 964451632 Problem Abdominal pain R10.9 Active 78741056 Problem 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.4 Active 122307534 Problem Essential hypertension I10 Active 83313611 Problem Neuropathy G62.9 Active 988672116 Problem Impotence N52.9 Active 509315945 Problem Type 2 diabetes 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 E11.8 Active 51155548 Problem Coronary atherosclerosis due to lipid rich plaque I25.83 Active 17293944 Problem Obstructive sleep apnea syndrome G47.33 Active 56086071 Problem Change in bowel habit R19.4 Active 41187720 Problem Drug abuse, opioid type F11.10 Active 8315273 ALLERGIES Substance Reaction Event Type Date Status Staxyn Decreased blood pressure Drug Allergy January, Active Tramadol HCl hx of overdose Drug Allergy January, Active Hydrocodone-Acetaminophen hx of overdose Drug Allergy January, Active Clonazepam hx of overdose Drug Allergy January, Active SOCIAL HISTORY Never Assessed PLAN OF CARE Activity Details Follow Up 3 Months Reason:DM VITAL SIGNS Height 74 in 2017-01-31 Weight 231.8 lbs 2017-01-31 Temperature 97.6 degrees Fahrenheit 2017-01-31 Heart Rate 80 bpm 2017-01-31 Respiratory Rate 20 2017-01-31 BMI 29.76 kg/m2 2017-01-31 Blood pressure systolic 130 mmHg 2017-01-31 Blood pressure diastolic 72 mmHg 2017-01-31 MEDICATIONS Medication Instructions Dosage Frequency Start Date End Date Duration Status Naproxen 500 MG Orally every 12 hrs 1 tablet as needed 12h Active Pantoprazole Sodium 40 mg Orally Once a day 1 tablet 24h 30 days Active Metoprolol Tartrate 50 mg Orally Twice a day 1 tablet 12h 30 Active Lisinopril 10 mg Orally Once a day 1 tablet 24h Active ProAir HFA 108 (90 Base) MCG/ACT Inhalation every 4 hrs 2 puffs as needed 4h Active Symbicort 160-4.5 MCG/ACT Inhalation Twice a day 2 puffs 12h Active Spiriva HandiHaler 18 MCG Active Oxygen 3 L/NC 24h Active Levemir 100 UNIT/ML sq bid 35 units 12h Active Aspirin Adult Low Strength 81 MG Orally Once a day 1 tablet 24h Active Zofran ODT 4 MG Orally every 8 hrs 1 tablet on the tongue and allow to dissolve 8h Active NovoLog 100 UNIT/ML sq tid inject 15 Units by Subcutaneous route 3 times per day before meals 8h Active Promethazine HCl 25 MG Orally 4 times a day 1 tablet as needed 6h 10 Jan, 2017 Active Lyrica 150 MG Orally 3 times a day 1 capsule 8h 30 days Active ibuprofen 1 tab Active RESULTS Name Result Date Reference Range A1C (IN HOUSE) 2017-01-31 A1C IN HOUSE 10.9 4.3 - 5.6 % Previous A1c 10.2 Lot [id number] Exp date 09/2018 MRI : Cervical w/o Contrast 2017-02-07 PROCEDURES Procedure Date Ordered Result Body Site GLYCATED HEMOGLOBIN TEST January 31, 2017 [facility] VISIT ESTABLISHED PATIENT January 31, 2017 IMMUNIZATIONS No Known Immunizations MEDICAL (GENERAL) [...] parietoalveolar pneumonopathy Medical History Colonoscopy 2014 Dr. Nava Surgical History heart cath-40-50% ostial LAD stenosis, mild irregularity in the diatal LAD, EF 40% w/ hypokinesia involving the interior wall possible LBBB 11/2011 Surgical History transesophageal echocardiogram-EF 55-60%, normal RVSP 2012 Surgical History heart cath-50% occlusion of proximal LAD, no stent--Lupe to monitor 09/2013 Surgical History laminectomy with discectomy/cervical spine fusion C4-6 2004 and 02/2006 Surgical History arthroscopic knee surgery-right 05/2005 Surgical History Right Rotator Cuff Repair Alixfuda 06/2016 Surgical History Colonoscopy Elijah (1 Polyp) repeat 5 years 2019 2014 Surgical History right rotator cuff surgery 06/27/2016 Hospitalization History Overdosed on Clonazepam #35. [place] 03/2014 Hospitalization History Overdosed on Xanax 07/2012 Hospitalization History Hypostension-medication side effect-[facility] 03/13/16
--- OUTSIDE RECORDS SUMMARY | 2017-08-05 19:27 | XMS REPORT | Continuity of Care Document ---
Author Author [employer] [facility] Address Unknown Phone Unavailable Care Team Providers Care Klystrom Tube Tester Name Role Phone [employer] Unavailable Unavailable Problems Problem Status Onset Date Classification Date Reported Comments Source Unspecified chest pain 04/12 Diagnosis 04/17/2014 [employer] No data available for this section Problem 04/17/2014 [employer] Medications Allergies, Adverse Reactions, Alerts Substance Category Reaction Severity Reaction type Status Date Reported Comments Source Nitroglycerin Assertion " made me real sick, and BP real low" Drug allergy [employer] Immunizations Immunization Date Given Site Status Last Updated Comments Source No data available for this section No data available for this section [facility]. Results Vital Signs Encounters Location Location Details Encounter Type Encounter Number Reason For Visit Attending Provider ADM Date DC Date Status Source [facility] [id number] Emergency [id number] Abelino Kaminski 04/12/2014 Active [facility] Emergency [id number] Abelino Kaminski 04/13/2014 04/14/2014 [facility]. Procedures Plan of Care Social History Assessment and Plan Family History Value Date Source Advance Directives Order Name Results Value Date Source
--- OUTSIDE RECORDS SUMMARY | 2017-08-05 19:28 | XMS REPORT | Clinical Summary ---
Author Author [facility] Organization [facility] Address Unknown Phone Unavailable Care Team Providers Care First Assistant Name Role Phone PCP Unavailable Source Comments Some departments are not documenting in the electronic medical record. If you do not see the information that you expected, contact Release of Information in the Health Information Management department at [phone] for further assistance in locating additional records.[facility] Allergies No Known Allergies Current Medications [...]
[2017-08-05] MEDS ORDERED: VANCOMYCIN 1 GM/NS 250 ML IVPB IV NR ×2 (20:00)
[2017-08-05] MEDS ORDERED: NS IV PRN (20:00)
[2017-08-05] MEDS ORDERED: IBUPROFEN 800 MG (MOTRIN) TAB PO PRN (20:15)
[2017-08-05] MEDS ORDERED: ACETAMINOPHEN 500 MG TAB (TYLENOL) PO PRN (20:15)
[2017-08-05] MEDS ORDERED: ONDANSETRON 4 MG/2 ML (SDV) Z0FRAN IV PRN (20:15)
[2017-08-05] MEDS: NS IV 1000 ML 1,000 ML IV SCH (20:35)
[2017-08-05] MEDS: inSUlin (REGULAR) HUMAN 1 UNIT/0.01 ML (CHARGE PER UNIT) SC SCH (21:55)
[2017-08-06] VITALS (12 sets, daily range): BP systolic 101–149; BP diastolic 48–83
[2017-08-06] MEDS: NS IV 1000 ML 1,000 ML IV SCH ×2 (01:47→06:13)
[2017-08-06] MEDS: PIPERACILLIN SODIUM/TAZOBACTAM 4.5 GM in NS (IVPB) 100 ML IV SCH ×2 (01:48→08:36)
[2017-08-06] MEDS ORDERED: RT-ALBUTEROL/IPRATROPIUM 3 ML (DUONEB) VIAL ONE (03:23)
[2017-08-06] MEDS ORDERED: RT-ALBUTEROL/IPRATROPIUM 3 ML (DUONEB) VIAL INH PRN (03:45)
[2017-08-06 05:21] LABS: BASOPHILS # (AUTO) 0.1 10^3/uL (0.0-0.1); BASOPHILS % (AUTO) 1 % (0-10); EOSINOPHILS # (AUTO) 0.2 10^3/uL (0.0-0.3); EOSINOPHILS % (AUTO) 2 % (0-10); LYMPHOCYTES # (AUTO) 2.7 X 10^3 (1.0-4.0); LYMPHOCYTES % (AUTO) 26 % (12-44); MEAN CORPUSCULAR HEMOGLOBIN 30 PG (25-34); MEAN CORPUSCULAR HGB CONC 35 G/DL (32-36); MEAN CORPUSCULAR VOLUME 87 FL (80-99); MEAN PLATELET VOLUME 10.9 FL (7.4-10.4); MONOCYTES % (AUTO) 10 % (0-12); NEUTROPHILS # (AUTO) 6.3 X 10^3 (1.8-7.8); NEUTROPHILS % (AUTO) 61 % (42-75); PLATELET COUNT 181 10^3/uL (130-400); RED BLOOD COUNT 4.53 10^6/uL (4.35-5.85); RED CELL DISTRIBUTION WIDTH 13.8 % (10.0-14.5); WHITE BLOOD COUNT 10.3 10^3/uL (4.3-11.0)
[2017-08-06 05:42] LABS: ANION GAP 10 MMOL/L (5-14); BLOOD UREA NITROGEN 14 MG/DL (7-18); BUN/CREATININE RATIO 19; CALCIUM 7.8 MG/DL (8.5-10.1); CARBON DIOXIDE 18 MMOL/L (21-32); CHLORIDE 109 MMOL/L (98-107); CREATININE SERUM 0.73 MG/DL (0.60-1.30); GFR ESTIMATED > 60; GLUCOSE 215 MG/DL (70-105); POTASSIUM 4.5 MMOL/L (3.6-5.0); SODIUM 137 MMOL/L (135-145)
[2017-08-06] MEDS ORDERED: POTASSIUM CL 10MEQ/50ML IVPB 50 ML IV SCH (06:00)
[2017-08-06] MEDS ORDERED: MAGNESIUM 1 GM/100 ML IVPB 100 ML IV SCH (06:00)
[2017-08-06] MEDS ORDERED: KCL 20 MEQ TAB (K-DUR) PO SCH (06:00)
[2017-08-06] MEDS: inSUlin (REGULAR) HUMAN 1 UNIT/0.01 ML (CHARGE PER UNIT) SC SCH ×2 (06:14→11:46)
[2017-08-06] MEDS ORDERED: INFLUENZA TRIvalent 2017-2018 0.5 ML/45 MCG SYR IM ONE (07:00)
[2017-08-06] MEDS: RT-ALBUTEROL/IPRATROPIUM 3 ML (DUONEB) VIAL INH SCH ×2 (07:12→14:50)
[2017-08-06] MEDS ORDERED: VANCOMYCIN 1500 MG/NS 500 ML IVPB IV SCH ×2 (08:00)
[2017-08-06] MEDS ORDERED: BUDE10.2 INH (09:25)
[2017-08-06] MEDS ORDERED: CETI10TA20 PO (09:25)
[2017-08-06] MEDS ORDERED: SULF-222 PO (09:25)
[2017-08-06] MEDS ORDERED: DEXT30SU5 PO (09:25)
[2017-08-06] MEDS ORDERED: BUDE8.43 NS (09:25)
[2017-08-06] MEDS ORDERED: TIOT4MIS2 INH (09:25)
[2017-08-06] MEDS ORDERED: VARE1TAB22 PO (09:25)
[2017-08-06] MEDS ORDERED: ALBU18HF2 INH (09:25)
[2017-08-06] MEDS ORDERED: ALBU2.5V4 NEB (09:25)
[2017-08-06] MEDS ORDERED: MONT10TA24 PO (09:25)
[2017-08-06] MEDS ORDERED: PRD20T PO (09:25)
--- NOTE | 2017-08-06 09:49 | Diagnostic Imaging Report ---
INDICATION: Pneumonia. Comparison made with prior examination 08/05/2017. FINDINGS: There is cardiomegaly. There is some venous congestion. There is no pleural effusion or pneumothorax. Mediastinum is unremarkable. IMPRESSION: Cardiomegaly and some central pulmonary venous congestion. Dictated by: Dictated on workstation # [id number]
[2017-08-06] MEDS ORDERED: IOHEXOL 350 MG/ML 150 ML (OMNIPAQUE 350) VIAL IV ONE (10:45)
[2017-08-06] MEDS ORDERED: NS 100 ML (IVPB) BAG IV ONE (10:45)
--- NOTE | 2017-08-06 11:49 | Diagnostic Imaging Report ---
PROCEDURE: CT angiography of the chest with contrast. TECHNIQUE: Multiple contiguous axial images were obtained through the chest after uneventful bolus administration of intravenous contrast. Reconstructed CTA MIP acquisitions were also performed. INDICATION: Lung disease, shortness of breath. COMPARISON: Study compared with exam of 07/15/2017. FINDINGS: We again note no intraluminal pulmonary arterial filling defects. There were no findings of pulmonary arterial embolus. The thoracic aorta is patent and nonaneurysmal. Mild superior mediastinal and right paratracheal adenopathy, unchanged. Right greater than left pulmonary hilar lymphadenopathy, not significantly changed. There is subcarinal adenopathy, not significantly changed. Left lung chang-fissural nodule measures unchanged 1.2 cm. Underlying COPD, stable and chronic. Prominence of the interstitial lung markings, unchanged. No substantial bronchiectasis. No thoracic effusion or pneumothorax. No new abnormality. IMPRESSION: Unchanged hilar and mediastinal lymphadenopathy. Interstitial disease and chnag-fissural left lung nodule. Negative for PE or acute aortic pathology and no change demonstrated. Dictated by: Dictated on workstation # [id number]
--- NOTE | 2017-08-06 12:11 | History & Physicial ([facility]) ---
HPI Attending Physician Ninfa Daniel MD PCP Margaux Newsome DO Consult Date of Admission Aug 05, 2017 at 7:10 pm Home Medications Home Medications Reviewed patient Home Medication Reconciliation Form Allergies Coded Allergies: ceftriaxone (Verified Allergy, Intermediate, 08/05/17) Patient experienced reaction approx. 6 hrs after receiving rocephin. He experienced redness, itching and shortness of air. Benadryl was administered and it resolved. [id number] Hx Patient Social History Alcohol Use: Occasionally Uses Recreational Drug Use: Yes (PAST HISTORY) Drug of Choice: CANNIBUS Smoking Status: Former Smoker Former smoker/When Quit: Sep 16, 2013 Type Used: Cigarettes, Smokeless Tobacco Recent Foreign Travel: No Contact w/other who traveled: No Recent Hopitalizations: No Recent Infectious Disease Expo: No Physical Abuse Screen: No Sexual Abuse: No Immunizations Up To Date Tetanus Booster (TDap): Less than 5yrs Date of Pneumonia Vaccine: January 20, 2013 Date of Influenza Vaccine: Jun 20, 2016 Past Medical History Past Medical History 1. Interstitial Lung disease- per pt. report with no evidence on current CT 2014. Not following with Dr. Palmer 2. DM- uncontrolled due to non-compliance with medications and diet 3. HLP-not taking medications 4. HTN 5. Tobaccoism 6. History of Narcotic Prescription drug abuse and history of "eating Fentanyl Patch" 7. Suicide Attempt with involuntary hospitalization in [place] overdose on Clonazepam 03/29 and Xanax 07/28 8. RENAE using Bipap at night 9. Mild COPD per pulmonary function- pt. using O2 PRN however not presribed by Dr. Palmer 10. GERD 11. Peripheral Neuropathy 12. Major Depressive Disorder 13. THC use 14. History of "syncopal episodes" 15. Degenerative Disk Disease with history of cervical fusion 16. Chronic Left Bundle Branch Block 17. ED- using Viagra Past Surgical History 1. CervicalFusion C4-C5 2. Hernia Repair 3. Knee Surgery 4. Cardiac Cath x2 most recent 10-05-13 with no-obstructive disease Family Medical History Significant Family History: No Pertinent Family Hx Family History: Cancer 03 MOTHER Cancer of colon 03 MOTHER Cataract 03 MOTHER Chest pain 03 FATHER Family history: Cardiovascular disease 03 FATHER Family history: Diabetes mellitus 09 BROTHER Headache 03 FATHER 03 MOTHER 09 BROTHER 09 BROTHER Heart disease 03 FATHER Myocardial infarction 03 FATHER Stroke 09 BROTHER No Family History of: Abdominal aortic aneurysm Point Baker's disease Alcoholism Aphasia Congenital heart disease Congestive heart failure Cystic fibrosis Dementia Dysphagia Family history: Allergy Family history: Alzheimer's disease Family history: Arthritis Family history: Asthma Family history: Breast disease Family history: Coronary thrombosis Family history: Gastrointestinal disease Family history: Glaucoma Family history: Hypertension Family history: Osteoporosis Family history: Thyroid disorder Hearing loss Hereditary disease History of - anemia History of - disorder History of - respiratory disease History of drug abuse Human immunodeficiency virus (HIV) seropositivity Hypercholesterolemia Infertile Kidney disease Malignant neoplasm of lung Parkinson's disease Prostate cancer Psychotic disorder Seizure disorder Tuberculosis Visual impairment Physical Exam-([facility]) Physical Exam Vital Signs VS - Last 72 Hours, by Label 08/05/17 08/05/17 08/05/17 08/05/17 16:40 16:54 17:07 19:20 Temp 96.3 Pulse 66 79 66 82 Resp 16 B/P (MAP) 92/63 Pulse Ox 97 99 O2 Delivery Nasal Cannula Nasal Cannula Nasal Cannula O2 Flow Rate 3.00 3.00 3.00 08/05/17 08/05/17 08/05/17 08/05/17 19:20 19:40 19:45 19:56 Temp 96.3 97.0 Pulse 74 57 56 57 Resp 16 B/P (MAP) 134/69 121/71 Pulse Ox 97 100 98 O2 Delivery Nasal Cannula Nasal Cannula Nasal Cannula O2 Flow Rate 3.00 3.00 3.00 08/05/17 08/05/17 08/05/17 08/05/17 20:00 20:15 20:30 20:45 Pulse 55 54 55 53 Resp 15 12 9 11 B/P (MAP) 131/69 131/72 132/78 137/69 Pulse Ox 99 99 100 100 O2 Delivery Nasal Cannula Nasal Cannula Nasal Cannula Nasal Cannula O2 Flow Rate 3.00 3.00 3.00 3.00 08/05/17 08/05/17 08/05/17 08/05/17 21:00 21:15 21:30 21:45 Pulse 57 56 56 56 Resp 12 21 25 11 B/P (MAP) 127/80 118/76 131/79 124/81 Pulse Ox 100 100 100 100 O2 Delivery Nasal Cannula Nasal Cannula Nasal Cannula Nasal Cannula O2 Flow Rate 3.00 3.00 3.00 3.00 08/05/17 08/05/17 08/06/1708/06/17 22:00 23:00 00:00 00:00 Temp 97.0 Pulse 57 54 55 Resp 12 12 13 B/P (MAP) 133/71 109/69 138/76 Pulse Ox 100 99 98 98 O2 Delivery Nasal Cannula Nasal Cannula Nasal Cannula Nasal Cannula O2 Flow Rate 1.00 1.00 1.00 1.00 08/06/17 08/06/17 08/06/17 08/06/17 01:00 01:00 02:00 03:00 Pulse 56 56 59 54 Resp 12 11 16 B/P (MAP) 135/80 119/48 134/78 Pulse Ox 97 99 100 O2 Delivery Nasal Cannula Nasal Cannula Nasal Cannula O2 Flow Rate 1.00 1.00 3.00 08/06/17 08/06/17 08/06/17 08/06/17 04:00 04:00 05:00 05:26 Temp 97.1 Pulse 64 72 Resp 13 15 B/P (MAP) 130/71 140/79 Pulse Ox 100 100 99 96 O2 Delivery Nasal Cannula Nasal Cannula Nasal Cannula Nasal Cannula O2 Flow Rate 3.00 3.00 3.00 3.00 08/06/17 08/06/17 08/06/17 08/06/17 06:00 07:00 07:00 07:12 Pulse 59 77 71 Resp 14 12 B/P (MAP) 136/73 132/71 Pulse Ox 99 99 97 O2 Delivery Nasal Cannula Nasal Cannula Nasal Cannula O2 Flow Rate 3.00 3.00 3.00 08/06/17 08/06/17 08/06/17 08/06/17 08:00 08:00 08:00 09:00 Temp 97.8 Pulse 68 72 Resp 16 9 B/P (MAP) 131/66 149/79 Pulse Ox 100 94 99 O2 Delivery Nasal Cannula Nasal Cannula Nasal Cannula O2 Flow Rate 3.00 3.00 3.00 08/06/17 08/06/17 08/06/17 10:00 11:15 11:15 Temp 97.9 Pulse 73 67 Resp 10 20 B/P (MAP) 101/83 144/72 Pulse Ox 100 100 O2 Delivery Nasal Cannula Nasal Cannula Nasal Cannula O2 Flow Rate 3.00 3.00 3.00 Capillary Refill : Less Than 3 Seconds Clinical Quality Measures DVT/VTE Risk/Contraindication: Risk Factor Score Per Nursin RFS Level Per Nursing on Admit: 4+=Very High NINFA DANIEL MD Aug 06, 2017 12:11 pm
[2017-08-06] MEDS ORDERED: PREGABALIN 75 MG (LYRICA) CAP PO SCH (13:00)
[2017-08-06] MEDS ORDERED: methylPREDNISolone 40 MG/ML (Solu-MEDROL) VIAL IV SCH (14:00)
[2017-08-06] MEDS ORDERED: inSUlin ASPART (NovoLOG) 1 UNIT/0.01 ML (CHARGE PER UNIT) SQ SCH (16:00)
--- NOTE | 2017-08-06 16:01 | Discharge Instructions ---
Discharge [facility] Discharge Medications New, Converted or Re-Newed RX: Other Continued Medications: Albuterol Sulfate (Ventolin Hfa) 18 Gm Hfa.aer.ad 2 PUFF INH Q6H PRN for SHORTNESS OF BREATH, INHALER Albuterol Sulfate (Albuterol Sulfate) 2.5 Mg/3 Ml Vial.neb 2.5 MG NEB Q6H PRN for SHORTNESS OF BREATH, EA Budesonide (Rhinocort Allergy) 8.43 Ml [place].pump 2 SPRAYS NS BID PRN for ALLERGIES, ML Budesonide/Formoterol Fumarate (Symbicort 160-4.5 Mcg Inhaler) 10.2 Gm Hfa.aer.ad 2 PUFF INH BID, TAB Cetirizine HCl (Zyrtec) 10 Mg Tablet 10 MG PO DAILY, TAB Dextromethorphan Polistirex (Delsym) 30 Mg/5 Ml Jody.er.12h 10 ML PO Q12H PRN for COUGH, ML Glimepiride (Glimepiride) 1 Mg Tablet 1 MG PO DAILY, TAB Insulin Aspart (Novolog) 100 Unit/1 Ml Susp 10-15 UNITS SQ AC, EA Insulin Determir (Levemir) 1,000 Units/10 Ml Soln 35 UNITS SQ BID, EA Lisinopril (Lisinopril) 10 Mg Tablet 10 MG PO DAILY, TAB Metoprolol Tartrate (Metoprolol Tartrate) 50 Mg Tablet 50 MG PO DAILY, TAB Montelukast Sodium (Montelukast Sodium) 10 Mg Tablet 10 MG PO HS, TAB Pantoprazole Sodium (Pantoprazole Sodium) 40 Mg Tablet.dr 40 MG PO DAILY, TAB Prednisone (Prednisone) 20 Mg Tab 20 MG PO DAILY, TAB Pregabalin (Lyrica) 150 Mg Capsule 150 MG PO TID, CAP Sulfamethoxazole/Trimethoprim (Sulfamethoxazole-Tmp Ds Tablet) 1 Each Tablet 1 TAB PO MoWeFr, TAB Tiotropium [place] (Spiriva Respimat 2.5MCG/ACTUATION) 4 Gm Mist.inhal 2 PUFF INH DAILY, EA Varenicline Tartrate (Chantix) 1 Mg Tablet 1 MG PO BID, TAB Patient Instructions Goal/Follow Up Appt: 1. DR PLUNKETT ON AUGUST 21 SCHEDULED. 2. [facility] WILL CALL YOU TOMORROW MORNING TO SCHEDULE AN APPOINTMENT WITH TATYANA. Patient Instructions: 1. PLEASE TAKE YOUR MEDICATIONS PRESCRIBED. 2. WE ARE NOT ADDING ANY MEDICATIONS TO YOUR REGIMEN TODAY. 3. YOUR URINE DRUG SCREEN WAS POSITIVE FOR MARIJUANA AND BENZOS (XANAX). IF YOU WOULD LIKE SOME ASSISTANCE WITH YOUR ADDICTIONS, PLEASE CALL [phone] AND ASK FOR DEVYN, OUR PEER MENTOR FOR [facility]. Return to The Hospital For: CONTINUED DIZZINESS, LIGHTHEADEDED, SHORTNESS OF BREATH Activity & Diet Discharge Diet: ADA Diet Activity as Tolerated: Yes Copy Copies To 1: BRENDON PLUNKETT DO; NINFA KILPATRICK APRN, MD Aug 06, 2017 4:01 pm
--- NOTE | 2017-08-06 16:02 | Short Stay Summary ---
History of Present Illness History of Present Illness Reason for visit/HPI 56yo gentleman presented to ER with complaints of being light headed and dizzy. Patient states this has been happening repeatedly over the past few months and is episodic. He saw Dorian Peña at the clinic once who told him he needed to be admitted. Mr Huerta has a history of interstitial lung disease and is on 3L NC at baseline. He follows with Dr Palmer and has been on multiple courses of antibiotics for this. He is now on a Bactrim tab every other day. He denies fevers, chills, increased cough or sputum production. He has issues mostly when he sits up in bed. Date of Admission Aug 05, 2017 at 7:10 pm Date of Discharge August 06, 2017 Time Seen by Provider: 08:30 Attending Physician Ninfa Cota MD Admitting Physician Margaux Newsome DO Consult Allergies and Home Medications Allergies Coded Allergies: ceftriaxone (Verified Allergy, Intermediate, 08/05/17) Patient experienced reaction approx. 6 hrs after receiving rocephin. He experienced redness, itching and shortness of air. Benadryl was administered and it resolved. Home Medications Albuterol Sulfate 18 Gm Hfa.aer.ad, 2 PUFF INH Q6H PRN for SHORTNESS OF BREATH, (Reported) Albuterol Sulfate 2.5 Mg/3 Ml Vial.neb, 2.5 MG NEB Q6H PRN for SHORTNESS OF BREATH, (Reported) Budesonide 8.43 Ml [place].pump, 2 SPRAYS NS BID PRN for ALLERGIES, (Reported) Budesonide/Formoterol Fumarate 10.2 Gm Hfa.aer.ad, 2 PUFF INH BID, (Reported) Cetirizine HCl 10 Mg Tablet, 10 MG PO DAILY, (Reported) Dextromethorphan Polistirex 30 Mg/5 Ml Jody.er.12h, 10 ML PO Q12H PRN for COUGH, (Reported) Glimepiride 1 Mg Tablet, 1 MG PO DAILY, (Reported) Insulin Aspart 100 Unit/1 Ml Susp, 10-15 UNITS SQ AC, (Reported) Insulin Determir 1,000 Units/10 Ml Soln, 35 UNITS SQ BID, (Reported) Lisinopril 10 Mg Tablet, 10 MG PO DAILY, (Reported) Metoprolol Tartrate 50 Mg Tablet, 50 MG PO DAILY, (Reported) Montelukast Sodium 10 Mg Tablet, 10 MG PO HS, (Reported) Pantoprazole Sodium 40 Mg Tablet.dr, 40 MG PO DAILY, (Reported) Prednisone 20 Mg Tab, 20 MG PO DAILY, (Reported) Pregabalin 150 Mg Capsule, 150 MG PO TID, (Reported) Sulfamethoxazole/Trimethoprim 1 Each Tablet, 1 TAB PO MoWeFr, (Reported) Tiotropium [place] 4 Gm Mist.inhal, 2 PUFF INH DAILY, (Reported) Varenicline Tartrate 1 Mg Tablet, 1 MG PO BID, (Reported) Past Eaauinq-Uqqrre-Vghkjx Hx Patient Social History Alcohol Use: Occasionally Uses Alcohol Beverage of Choice: Beer Recreational Drug Use: Yes (PAST HISTORY) Drug of Choice: CANNIBUS Smoking Status: Former Smoker Former Smoker, Quit: Jul 17, 2017 Type Used: Cigarettes, Smokeless Tobacco Physical Abuse Screen: No Sexual Abuse: No Recent Foreign Travel: No Contact w/other who traveled: No Recent Hopitalizations: No Recent Infectious Disease Expo: No Immunizations Up To Date Tetanus Booster (TDap): Less than 5yrs Pediatric: No Date of Pneumonia Vaccine: January 20, 2013 Date of Influenza Vaccine: Jun 20, 2016 Seasonal Allergies Seasonal Allergies: Yes Surgeries Yes (HERNIA REPAIR, ENE-SPINE SURGERY X2, RT KNEE SCOPE, CARDIAC CATH) Abdominal, Cardiac, Orthopedic Respiratory Yes (INTERSTITIAL LUNG DISEASE, OXYGEN PRN) Currently Using CPAP: Yes Currently Using BIPAP: No Cardiovascular Yes (LBBB, CARDIAC CATH) High Cholesterol, Hypertension Neurological Yes (NEUROPATHY IN FEET) Neuropathy Reproductive System Hx Reproductive Disorders: No (ERECTILE DYSFUNCTION) Sexually Transmitted Disease: No HIV/AIDS: No Genitourinary No Gastrointestinal Yes Gastroesophageal Reflux Musculoskeletal Yes (CHRONIC GENERALIZED PAIN, CHRONIC NECK AND BACK PAIN ) Degenerate Disk Disease, Arthritis, Fibromyalgia, Chronic Back Pain Endocrine History of Endocrine Disorders: Yes Endocrine Disorders: Diabetes, Insulin dep HEENT Loss of Vision: Denies Hearing Impairment: Hard of Hearing Cancer No Psychosocial History of Psychiatric Problem: Yes Behavioral Health Disorders: Anxiety Integumentary History of Skin or Integumenta: No Blood Transfusions History of Blood Disorders: No Adverse Reaction to a Blood Tr: No Family Medical History Significant Family History: No Pertinent Family Hx Family Hx: Cancer 03 MOTHER Cancer of colon 03 MOTHER Cataract 03 MOTHER Chest pain 03 FATHER Family history: Cardiovascular disease 03 FATHER Family history: Diabetes mellitus 09 BROTHER Headache 03 FATHER 03 MOTHER 09 BROTHER 09 BROTHER Heart disease 03 FATHER Myocardial infarction 03 FATHER Stroke 09 BROTHER No Family History of: Abdominal aortic aneurysm [place]'s disease Alcoholism Aphasia Congenital heart disease Congestive heart failure Cystic fibrosis Dementia Dysphagia Family history: Allergy Family history: Alzheimer's disease Family history: Arthritis Family history: Asthma Family history: Breast disease Family history: Coronary thrombosis Family history: Gastrointestinal disease Family history: Glaucoma Family history: Hypertension Family history: Osteoporosis Family history: Thyroid disorder Hearing loss Hereditary disease History of - anemia History of - disorder History of - respiratory disease History of drug abuse Human immunodeficiency virus (HIV) seropositivity Hypercholesterolemia Infertile Kidney disease Malignant neoplasm of lung Parkinson's disease Prostate cancer Psychotic disorder Seizure disorder Tuberculosis Visual impairment Constitutional: no symptoms reported All Other Systems Reviewed Negative Unless Noted: Yes (Negative excepted noted.) Physical Exam Vital Signs Vital Sign - Last 12Hours 08/05/17 08/05/17 16:40 16:54 Temp 96.3 Pulse 66 66 82 Resp 16 B/P (MAP) 92/63 Pulse Ox 97 O2 Delivery Nasal Cannula O2 Flow Rate 3.00 Capillary Refill : Less Than 3 Seconds General Appearance: No Apparent Distress, WD/WN HEENT: PERRL/EOMI, Normal ENT Inspection, Pharynx Normal Neck: Full Range of Motion, Normal Inspection, Non Tender, Supple, Carotid Bruit Respiratory: Chest Non Tender, Lungs Clear, Normal Breath Sounds, No Accessory Muscle Use, No Respiratory Distress Cardiovascular: Regular Rate, Rhythm, No Edema, No Gallop, No JVD, No Murmur, Normal Peripheral Pulses Gastrointestinal: Normal Bowel Sounds, No Organomegaly, No Pulsatile Mass, Non Tender, Soft Back: Normal Inspection, No CVA Tenderness, No Vertebral Tenderness Extremity: Normal Capillary Refill, Normal Inspection, Normal Range of Motion, Non Tender, No Calf Tenderness, No Pedal Edema Neurologic/Psychiatric: Alert, Oriented x3, No Motor/Sensory Deficits, Normal 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/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, 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 Norm as Tested Skin: Normal Color, Warm/Dry Clinical Quality Measures DVT/VTE Risk/Contraindication: Risk Factor Score Per Nursin RFS Level Per Nursing on Admit: 4+=Very High Sepsis: Within 3hrs of presentation: Admin fluids, Admin ABX, Blood cultures prior to ABX's, Focus exam, Lactate level Smoking Cessation Counseling: Counseling-Symptomatic: 3-10 Minutes Discussed Options Including: Chantix Short Stay Diagnosis Discharge Diagnosis-Short Stay Admission Diagnosis: POLY SUBSTANCE ABUSE CAUSING HYPOTENSION BRADYCARDIA LIGHTHEADEDNESS (DIZZINESS AND VERTIGO) INTERSTITIAL LUNG DISEASE Final Discharge Diagnosis: SAME Conclusion Labs Laboratory Tests 08/05/17 16:39: White Blood Count 15.2H, Red Blood Count 5.28, Hemoglobin 15.5, Hematocrit 45, Mean Corpuscular Volume 84, Mean Corpuscular Hemoglobin 29, Mean Corpuscular Hemoglobin Concent 35, Red Cell Distribution Width 13.7, Platelet Count 276, Mean Platelet Volume 10.2, Neutrophils (%) (Auto) 66, Lymphocytes (%) (Auto) 25 , Monocytes (%) (Auto) 7, Eosinophils (%) (Auto) 2, Basophils (%) (Auto) 1, Neutrophils # (Auto) 10.0H, Lymphocytes # (Auto) 3.8, Monocytes # (Auto) 1.0, Eosinophils # (Auto) 0.3, Basophils # (Auto) 0.1, Neutrophils % (Manual) 54, Lymphocytes % (Manual) 42, Monocytes % (Manual) 2, Eosinophils % (Manual) 0, Basophils % (Manual) 2, Band Neutrophils 0, Blood Morphology Comment NORMAL, Prothrombin Time 12.6, INR Comment 0.9, Activated Partial Thromboplast Time 28, Sodium Level 132L, Potassium Level 4.5, Chloride Level 99, Carbon Dioxide Level 24, Anion Gap 9, Blood Urea Nitrogen 17, Creatinine 1.04, Estimat Glomerular Filtration Rate > 60, BUN/Creatinine Ratio 16, Glucose Level 234H, Calcium Level 9.2, Magnesium Level 1.9, Total Bilirubin 0.8, Aspartate Amino Transf (AST /SGOT) 15, Alanine Aminotransferase (ALT/SGPT) 26, Alkaline Phosphatase 53, Troponin I < 0.30, B-Type Natriuretic Peptide 17.5, Total Protein 7.0, Albumin 4.1, Thyroid Stimulating Hormone (TSH) 2.73 08/05/17 16:47: Glucometer 205H 08/05/17 17:00: Lactic Acid Level 1.70 08/05/17 18:07: Urine Color AMBERH, Urine Clarity CLEAR, Urine pH 6, Urine Specific [place] 1.025H, Urine Protein 1+H, Urine Glucose (UA) 1+H, Urine Ketones NEGATIVE, Urine Nitrite NEGATIVE, Urine Bilirubin NEGATIVE, Urine Urobilinogen 1, Urine Leukocyte Esterase 1+H, Urine RBC (Auto) NEGATIVE, Urine RBC NONE, Urine WBC 2-5 , Urine Squamous Epithelial Cells 0-2, Urine Crystals NONE, Urine Bacteria NONE , Urine Casts NONE, Urine Mucus SMALLH, Urine Culture Indicated NO, Urine Opiates Screen NEGATIVE, Urine Oxycodone Screen NEGATIVE, Urine Methadone Screen NEGATIVE, Urine Propoxyphene Screen NEGATIVE, Urine Barbiturates Screen NEGATIVE, Ur Tricyclic Antidepressants Screen NEGATIVE, Urine Phencyclidine Screen NEGATIVE, Urine Amphetamines Screen NEGATIVE, Urine Methamphetamines Screen NEGATIVE, Urine Benzodiazepines Screen POSITIVEH, Urine Cocaine Screen NEGATIVE, Urine Cannabinoids Screen POSITIVEH 08/05/17 21:35: Glucometer 178H 08/06/17 04:35: White Blood Count 10.3, Red Blood Count 4.53, Hemoglobin 13.6, Hematocrit 39L, Mean Corpuscular Volume 87, Mean Corpuscular Hemoglobin 30, Mean Corpuscular Hemoglobin Concent 35, Red Cell Distribution Width 13.8, Platelet Count 181, Mean Platelet Volume 10.9H, Neutrophils (%) (Auto) 61, Lymphocytes (%) (Auto) 26 , Monocytes (%) (Auto) 10, Eosinophils (%) (Auto) 2, Basophils (%) (Auto) 1, Neutrophils # (Auto) 6.3, Lymphocytes # (Auto) 2.7, Monocytes # (Auto) 1.0, Eosinophils # (Auto) 0.2, Basophils # (Auto) 0.1, Sodium Level 137, Potassium Level 4.5, Chloride Level 109H, Carbon Dioxide Level 18L, Anion Gap 10, Blood Urea Nitrogen 14, Creatinine 0.73, Estimat Glomerular Filtration Rate > 60, BUN/ Creatinine Ratio 19, Glucose Level 215H, Calcium Level 7.8L, Phosphorus Level 3.0, Magnesium Level 2.0 08/06/17 11:20: Glucometer 227H Microbiology 08/05/17 Influenza Types A,B Antigen (ARMINDA) - Final, Complete Conclusion/Plan Mr Huerta presented to ER with complaints of dizziness and was found to have a BP in the 70s. At that time, he also had a HR in the 70s. His BP responded nicely to fluids. THere was concern that he had severe sepsis and/or septic shock. However, the following day, I did not find any reason to suspect an infectious etiology. In addition, his chronic steroids explains the marginally elevated WBC. He had no fever. GIven his chronic lung disease, I did a CT PEP which showed no acute pathology. The patient continued to have normal vital signs and normal labs/tests. I did a drug screen which was positive for benzodiazepines as well as marijuana. An overdose - accidental or otherwise - could very easily give this clinical picture. Mr Huerta stated that he only had a xanax tablet on Saturday, which would be less likely to come up positive on a drug screen 3-4 days later given its half life. I am concerned he is taking illicit substances as I do not believe he has a rx for this. It is also important to note that he has a history of intentional overdose requiring a psychiatric hospitalization twice in the past. Regarding the dizziness, he did have bradycardia while hospitalized. His med list states he is on metoprolol tartrate 50mg daily. This should be changed to 25mg BID and perhaps to 12.5mg. The beta blockade may be blocking the compensatory response so that he is becoming lightheaded. I will leave this to his PCP to discuss with him and whether he might need a cardiology consult in the future. I spoke with Dr Palmer regarding his care and we discussed that an acute pulmonary issue did not seem to be involved in the acute symptomatology. Dr Palmer will see him on Aug 21 as previously scheduled. Copy Copies To 1: BRENDON PALMER DO Copies To 2: NINFA KILPATRICK APRN, MD Aug 06, 2017 16:02
[2017-08-06] MEDS ORDERED: RT-ADVAIR HFA 115/21 MCG PER PUFF IH SCH (20:00)
[2017-08-06] MEDS ORDERED: NON-FORMULARY MEDICATION 1 EA EA (Varenicline Tartrate (Chantix) 1 MG) PO SCH (21:00)
[2017-08-06] MEDS ORDERED: MONTELUKAST 10 MG (SINGULAIR) TAB PO SCH (21:00)
[2017-08-06] MEDS ORDERED: inSUlin DETERMIR 1 UNIT/0.01 ML (LEVEMIR) CHARGE PER UNIT SQ SCH (21:00)
[2017-08-07] MEDS ORDERED: GLIMEPIRIDE 1 MG (AMARYL) TAB PO SCH (06:30)
[2017-08-07] MEDS ORDERED: PANTOPRAZOLE 40 MG (PROTONIX) TAB PO SCH (07:00)
[2017-08-07] MEDS ORDERED: TROUGH ORDER-PHARMACY XX NR (07:00)
[2017-08-07] MEDS ORDERED: UMECLIDINIUM BROMIDE (INCRUSE ELLIPTA) 7'S IH SCH (08:00)
[2017-08-07] MEDS ORDERED: lisINopril 10 MG (PRINIVIL) TAB PO SCH (09:00)
[2017-08-07] MEDS ORDERED: LORATADINE (CLARITIN) 10 MG TAB PO SCH (09:00)
== END 2017-08-06 16:28 | disposition home or self-care (01) | DRG 918 ==
LOC: EDUNIT# 16:24 → ER 16:26 → ICU 19:10 → 4TH 08-06 11:00
PROVIDERS: ADMIT Pediatrics; ATTEND Pediatrics
DX: T42.4X1A Poisoning by benzodiazepines, accidental (unintentional), initial encounter (principal); T40.7X1A Poisoning by cannabis (derivatives), accidental (unintentional), initial encounter; I95.9 Hypotension, unspecified; R00.1 Bradycardia, unspecified; R42 Dizziness and giddiness; J84.9 Interstitial pulmonary disease, unspecified; F12.90 Cannabis use, unspecified, uncomplicated; F17.210 Nicotine dependence, cigarettes, uncomplicated; G47.30 Sleep apnea, unspecified; J44.9 Chronic obstructive pulmonary disease, unspecified; E78.00 Pure hypercholesterolemia, unspecified; I10 Essential (primary) hypertension; E11.43 Type 2 diabetes mellitus with diabetic autonomic (poly)neuropathy; K21.9 Gastro-esophageal reflux disease without esophagitis; F41.9 Anxiety disorder, unspecified; I44.7 Left bundle-branch block, unspecified; Z79.4 Long term (current) use of insulin
CPT/HCPCS: 36415; 71010; 71020; 71275; 80048; 80053; 80306; 81000; 82962; 83605; 83735; 83880; 84100; 84443; 84484; 85007; 85025; 85027; 85610; 85730; 87040; 87081; 87804; 93005; 94640; 96361; 96374; 96375

== ENCOUNTER → 2017-08-27 | Outpatient (CLI) | payer MEDICARE ==
[~2017-08-27] MED LIST changes: +ALBU18HF2 INH; +ALBU2.5V4 NEB; +BUDE10.2 INH; +BUDE8.43 NS; +CETI10TA20 PO; +DEXT30SU5 PO; +METO50TA15 PO; -METO50TA2 PO; +MONT10TA24 PO; +NAPR-1071 PO; -NAPR500T PO; +TIOT4MIS2 INH; +VARE1TAB22 PO
== END ==
LOC: LAB 10:54
PROVIDERS: ATTEND Nurse Practitioner Family
DX: J20.9 Acute bronchitis, unspecified (principal); J84.9 Interstitial pulmonary disease, unspecified; R06.00 Dyspnea, unspecified; M35.00 Sjogren syndrome, unspecified
CPT/HCPCS: 87070; 87205

== ENCOUNTER → 2017-10-14 | Outpatient (CLI) | payer MEDICARE ==
[~2017-10-14] MED LIST changes: +ACHD5005; -HYDR-3812; +RT-ALBUTEROL SULF 2.5 MG/3 ML PRE-MIX VIAL INH ONE
== END ==
LOC: RT 08:28
PROVIDERS: ATTEND Nurse Practitioner Family
DX: J84.9 Interstitial pulmonary disease, unspecified (principal); R06.00 Dyspnea, unspecified; M35.00 Sjogren syndrome, unspecified
CPT/HCPCS: 94060; 94726; 94729

== ENCOUNTER 2017-10-17 10:22 | Emergency (ER) | payer MEDICARE ==
[~2017-10-17] VITALS: Ht 188 cm; Wt 111.1 kg
[~2017-10-17 10:22] MED LIST changes: -RT-ALBUTEROL SULF 2.5 MG/3 ML PRE-MIX VIAL INH ONE
[2017-10-17] MEDS ORDERED: NS IV 1000 ML 1,000 ML IV ONE ×2 (10:54→13:10)
[2017-10-17] MEDS ORDERED: ASPIRIN 81 MG CHEW (CHILDREN'S ASA) PO ONE (11:00)
[2017-10-17 11:03] LABS: BASOPHILS # (AUTO) 0.1 10^3/uL (0.0-0.1); BASOPHILS % (AUTO) 1 % (0-10); EOSINOPHILS # (AUTO) 0.3 10^3/uL (0.0-0.3); EOSINOPHILS % (AUTO) 2 % (0-10); HEMATOCRIT 44 % (40-54); HEMOGLOBIN 15.2 G/DL (13.3-17.7); LYMPHOCYTES # (AUTO) 2.8 X 10^3 (1.0-4.0); LYMPHOCYTES % (AUTO) 24 % (12-44); MEAN CORPUSCULAR HEMOGLOBIN 31 PG (25-34); MEAN CORPUSCULAR HGB CONC 35 G/DL (32-36); MEAN CORPUSCULAR VOLUME 87 FL (80-99); MEAN PLATELET VOLUME 10.9 FL (7.4-10.4); MONOCYTES # (AUTO) 0.9 X 10^3 (0.0-1.0); MONOCYTES % (AUTO) 8 % (0-12); NEUTROPHILS # (AUTO) 7.6 X 10^3 (1.8-7.8); NEUTROPHILS % (AUTO) 65 % (42-75); PLATELET COUNT 183 10^3/uL (130-400); RED BLOOD COUNT 4.98 10^6/uL (4.35-5.85); RED CELL DISTRIBUTION WIDTH 13.8 % (10.0-14.5); WHITE BLOOD COUNT 11.7 10^3/uL (4.3-11.0)
[2017-10-17 11:04] LABS: INR 0.9 (0.8-1.4); PROTHROMBIN TIME PATIENT 11.9 SEC (12.2-14.7)
[2017-10-17 11:10] VITALS: BP_SYST 114; BP_SYST 115; BP_DIAS 71; BP_DIAS 72
[2017-10-17 11:11] LABS: ALANINE AMINOTRANSFERASE 31 U/L (0-55); ALKALINE PHOSPHATASE 73 U/L (40-136); BILIRUBIN,TOTAL 0.7 MG/DL (0.1-1.0); BUN/CREATININE RATIO 19; CALCIUM 9.4 MG/DL (8.5-10.1); CARBON DIOXIDE 22 MMOL/L (21-32); CHLORIDE 102 MMOL/L (98-107); CREATININE SERUM 0.77 MG/DL (0.60-1.30); GFR ESTIMATED > 60; GLUCOSE 192 MG/DL (70-105); SODIUM 135 MMOL/L (135-145); TOTAL PROTEIN 7.3 GM/DL (6.4-8.2)
[2017-10-17 11:18] LABS: MYOGLOBIN SERUM 31.2 NG/ML (10.0-92.0)
--- NOTE | 2017-10-17 11:53 | ED General ---
General Chief Complaint: Dizziness/Syncope Stated Complaint: DIZZY Nursing Triage Note: ARRIVED VIA WC FROM PULMONARY REHAB. DURING EXERCISE THIS AM HE BECAME VERY DIZZY. DENIES CHEST OR HEAD PAIN. STATES HE IS MORE DIZZY WHEN HE CLOSES HIS EYES. PT HAD A EKG DONE IN PULMONARY REHAB BEFORE COMING ER. Nursing Sepsis Screen: No Definite Risk Source of Information: Patient Exam Limitations: No Limitations History of Present Illness Date Seen by Provider: Oct 17, 2017 Time Seen by Provider: 10:30 Initial Comments This 57-year-old gentleman presents to the emergency room with complaints of dizziness, described as a lightheadedness that occurred while on the treadmill at pulmonary rehabilitation. He was sent to the emergency room from pulmonary rehabilitation. He has some chest tightness and dyspnea associated with it and feels off balance during the episodes. Symptoms are definitely worse upon standing. He reports staff at pulmonary rehabilitation noted him to be pale and diaphoretic. He denies any significant pain at this time but states his chest feels tight. He is afebrile and has no cough. He reports having intermittent dizziness upon standing and with exertion for the past few weeks. It is also worse when his eyes are closed. Episodes 2 weeks ago seemed more like a vertigo but now they seem more like lightheadedness. He reports Dr. Rodriguez had scheduled carotid artery scans which have not been performed yet. His family service caseworker is Dr. Andrade. Fingerstick blood sugar is 191. Review of patient's chart notes a cardiac catheterization in 2013 demonstrating no obstructive disease and an EF of 50 percent. Allergies and Home Medications Allergies Coded Allergies: ceftriaxone (Verified Allergy, Intermediate, 08/05/17) Patient experienced reaction approx. 6 hrs after receiving rocephin. He experienced redness, itching and shortness of air. Benadryl was administered and it resolved. Home Medications Albuterol Sulfate 18 Gm Hfa.aer.ad, 2 PUFF INH Q6H PRN for SHORTNESS OF BREATH, (Reported) Albuterol Sulfate 2.5 Mg/3 Ml Vial.neb, 2.5 MG NEB Q6H PRN for SHORTNESS OF BREATH, (Reported) Budesonide 8.43 Ml [place].pump, 2 SPRAYS NS BID PRN for ALLERGIES, (Reported) Budesonide/Formoterol Fumarate 10.2 Gm Hfa.aer.ad, 2 PUFF INH BID, (Reported) Cetirizine HCl 10 Mg Tablet, 10 MG PO DAILY, (Reported) Dextromethorphan Polistirex 30 Mg/5 Ml Jody.er.12h, 10 ML PO Q12H PRN for COUGH, (Reported) Glimepiride 1 Mg Tablet, 1 MG PO DAILY, (Reported) Insulin Aspart 100 Unit/1 Ml Susp, 10-15 UNITS SQ AC, (Reported) Insulin Determir 1,000 Units/10 Ml Soln, 35 UNITS SQ BID, (Reported) Lisinopril 10 Mg Tablet, 10 MG PO DAILY, (Reported) Metoprolol Tartrate 50 Mg Tablet, 50 MG PO DAILY, (Reported) Montelukast Sodium 10 Mg Tablet, 10 MG PO HS, (Reported) Pantoprazole Sodium 40 Mg Tablet.dr, 40 MG PO DAILY, (Reported) Prednisone 20 Mg Tab, 20 MG PO DAILY, (Reported) Pregabalin 150 Mg Capsule, 150 MG PO TID, (Reported) Sulfamethoxazole/Trimethoprim 1 Each Tablet, 1 TAB PO MoWeFr, (Reported) Tiotropium [place] 4 Gm Mist.inhal, 2 PUFF INH DAILY, (Reported) Varenicline Tartrate 1 Mg Tablet, 1 MG PO BID, (Reported) Constitutional: no symptoms reported EENTM: no symptoms reported Respiratory: see HPI Cardiovascular: see HPI Gastrointestinal: no symptoms reported Genitourinary: no symptoms reported Musculoskeletal: no symptoms reported Skin: no symptoms reported Psychiatric/Neurological: No Symptoms Reported Hematologic/Lymphatic: No Symptoms Reported Immunological/Allergic: no symptoms reported Past Ibzjkui-Ksuanh-Hgxajd Hx Patient Social History Alcohol Use: Denies Use Alcohol Beverage of Choice: Beer Recreational Drug Use: Yes (POT) Drug of Choice: CANNIBUS Smoking Status: Current Everyday Smoker Type Used: Cigarettes, Smokeless Tobacco Former Smoker, Quit: Jul 17, 2017 Recent Foreign Travel: No Contact w/Someone Who Travel: No Recent Infectious Disease Expo: No Recent Hopitalizations: No Immunizations Up To Date Tetanus Booster (TDap): Less than 5yrs PED Vaccines UTD: No Date of Pneumonia Vaccine: January 20, 2013 Date of Influenza Vaccine: Jun 20, 2016 Seasonal Allergies Seasonal Allergies: Yes Surgeries History of Surgeries: Yes (HERNIA REPAIR, ENE-SPINE SURGERY X2, RT KNEE SCOPE, CARDIAC CATH) Surgeries: Abdominal, Cardiac, Orthopedic Respiratory History of Respiratory Disorde: Yes (INTERSTITIAL LUNG DISEASE, OXYGEN PRN) Respiratory Disorders: Pneumonia, Sleep Apnea, COPD Currently Using CPAP: Yes Currently Using BIPAP: No Cardiovascular History of Cardiac Disorders: Yes (LBBB, CARDIAC CATH) Cardiac Disorders: High Cholesterol, Hypertension Neurological History of Neurological Disord: Yes (NEUROPATHY IN FEET) Neurological Disorders: Neuropathy Reproductive System Hx Reproductive Disorders: No (ERECTILE DYSFUNCTION) Sexually Transmitted Disease: No HIV/AIDS: No Genitourinary History of Genitourinary Disor: No Gastrointestinal History of Gastrointestinal Di: Yes Gastrointestinal Disorders: Gastroesophageal Reflux Musculoskeletal History of Musculoskeletal Dis: Yes (CHRONIC GENERALIZED PAIN, CHRONIC NECK AND BACK PAIN ) Musculoskeletal Disorders: Degenerate Disk Disease, Arthritis, Fibromyalgia, Chronic Back Pain Endocrine History of Endocrine Disorders: Yes Endocrine Disorders: Diabetes, Insulin dep HEENT Loss of Vision: Denies Hearing Impairment: Hard of Hearing Cancer History of Cancer: No Psychosocial History of Psychiatric Problem: Yes Behavioral Health Disorders: Anxiety Integumentary History of Skin or Integumenta: No Blood Transfusions History of Blood Disorders: No Adverse Reaction to a Blood Tr: No Family Medical History Significant Family History: No Pertinent Family Hx Family Medial History: Cancer 03 MOTHER Cancer of colon 03 MOTHER Cataract 03 MOTHER Chest pain 03 FATHER Family history: Cardiovascular disease 03 FATHER Family history: Diabetes mellitus 09 BROTHER Headache 03 FATHER 03 MOTHER 09 BROTHER 09 BROTHER Heart disease 03 FATHER Myocardial infarction 03 FATHER Stroke 09 BROTHER No Family History of: Abdominal aortic aneurysm [place]'s disease Alcoholism Aphasia Congenital heart disease Congestive heart failure Cystic fibrosis Dementia Dysphagia Family history: Allergy Family history: Alzheimer's disease Family history: Arthritis Family history: Asthma Family history: Breast disease Family history: Coronary thrombosis Family history: Gastrointestinal disease Family history: Glaucoma Family history: Hypertension Family history: Osteoporosis Family history: Thyroid disorder Hearing loss Hereditary disease History of - anemia History of - disorder History of - respiratory disease History of drug abuse Human immunodeficiency virus (HIV) seropositivity Hypercholesterolemia Infertile Kidney disease Malignant neoplasm of lung Parkinson's disease Prostate cancer Psychotic disorder Seizure disorder Tuberculosis Visual impairment Physical Exam Vital Signs Vital Sign - Last 12Hours 10/17/17 10:22 Temp 98.0 Pulse 76 Resp 18 B/P (MAP) 125/79 (94) Pulse Ox 97 O2 Delivery Nasal Cannula O2 Flow Rate 2.00 Capillary Refill : Less Than 3 Seconds General Appearance: No Apparent Distress, WD/WN HEENT: PERRL/EOMI, Normal ENT Inspection, Pharynx Normal Neck: Normal Inspection, Supple, No Carotid Bruit, No JVD Respiratory: Lungs Clear, Normal Breath Sounds, No Accessory Muscle Use, No Respiratory Distress Cardiovascular: Regular Rate, Rhythm, No Edema, No Murmur Gastrointestinal: Non Tender, Soft Extremity: Normal Capillary Refill, Normal Inspection, No Pedal Edema Neurologic/Psychiatric: Alert, Oriented x3, No Motor/Sensory Deficits, Normal Mood/Affect, supervisor clam bed II-XII Norm as Tested Skin: Normal Color, Warm/Dry Progress/Results/Core Measures Suspected Sepsis Recent Fever Within 48 Hours: No Infection Criteria Present: None New/Unexplained Altered Menta: No Sepsis Screen: No Definite Risk Sepsis Diagnosis: SIRS Temperature:98.0 Pulse: 76 Respiratory Rate: 18 Laboratory Tests 10/17/17 10:30: White Blood Count 11.7H Blood Pressure 115 /72 Mean: 86 Laboratory Tests 10/17/17 10:30: Creatinine 0.77, INR Comment 0.9, Platelet Count 183, Total Bilirubin 0.7 Results/Orders Lab Results Laboratory Tests Test 10/17/17 10:29 10/17/17 10:30 10/17/17 12:46 Range/Units Glucometer 191 H 70-110 MG/DL White Blood Count 11.7 H 4.3-11.0 10^3/uL Red Blood Count 4.98 4.35-5.85 10^6/uL Hemoglobin 15.2 13.3-17.7 G/DL Hematocrit 44 40-54 % Mean Corpuscular Volume 87 80-99 FL Mean Corpuscular Hemoglobin 31 25-34 PG Mean Corpuscular Hemoglobin Concent 35 32-36 G/DL Red Cell Distribution Width 13.8 10.0-14.5 % Platelet Count 183 130-400 10^3/uL Mean Platelet Volume 10.9 H 7.4-10.4 FL Neutrophils (%) (Auto) 65 42-75 % Lymphocytes (%) (Auto) 24 12-44 % Monocytes (%) (Auto) 8 0-12 % Eosinophils (%) (Auto) 2 0-10 % Basophils (%) (Auto) 1 0-10 % Neutrophils # (Auto) 7.6 1.8-7.8 X 10^3 Lymphocytes # (Auto) 2.8 1.0-4.0 X 10^3 Monocytes # (Auto) 0.9 0.0-1.0 X 10^3 Eosinophils # (Auto) 0.3 0.0-0.3 10^3/uL Basophils # (Auto) 0.1 0.0-0.1 10^3/uL Prothrombin Time 11.9 L 12.2-14.7 SEC INR Comment 0.9 0.8-1.4 Activated Partial Thromboplast Time 28 24-35 SEC Sodium Level 135 135-145 MMOL/L Potassium Level 4.0 3.6-5.0 MMOL/L Chloride Level 102 98-107 MMOL/L Carbon Dioxide Level 22 21-32 MMOL/L Anion Gap 11 5-14 MMOL/L Blood Urea Nitrogen 15 7-18 MG/DL Creatinine 0.77 0.60-1.30 MG/DL Estimat Glomerular Filtration Rate > 60 BUN/Creatinine Ratio 19 Glucose Level 192 H 70-105 MG/DL Calcium Level 9.4 8.5-10.1 MG/DL Magnesium Level 2.0 1.8-2.4 MG/DL Total Bilirubin 0.7 0.1-1.0 MG/DL Aspartate Amino Transf (AST/SGOT) 21 5-34 U/L Alanine Aminotransferase (ALT/SGPT) 31 0-55 U/L Alkaline Phosphatase 73 40-136 U/L Myoglobin 31.2 10.0-92.0 NG/ML Troponin I < 0.30 <0.30 NG/ML Total Protein 7.3 6.4-8.2 GM/DL Albumin 4.0 3.2-4.5 GM/DL Urine Color YELLOW Urine Clarity CLEAR Urine pH 7 5-9 Urine Specific [place] 1.010 L 1.016-1.022 Urine Protein 1+ H NEGATIVE Urine Glucose (UA) 4+ H NEGATIVE Urine Ketones NEGATIVE NEGATIVE Urine Nitrite NEGATIVE NEGATIVE Urine Bilirubin NEGATIVE NEGATIVE Urine Urobilinogen NORMAL NORMAL MG/DL Urine Leukocyte Esterase NEGATIVE NEGATIVE Urine RBC (Auto) NEGATIVE NEGATIVE Urine RBC NONE /HPF Urine WBC NONE /HPF Urine Squamous Epithelial Cells RARE /HPF Urine Crystals NONE /LPF Urine Bacteria NEGATIVE /HPF Urine Casts NONE /LPF Urine Mucus NEGATIVE /LPF Urine Culture Indicated NO My Orders Orders - NERIS MORILLO MD Cbc With Automated Diff (10/17/17 10:54) Magnesium (10/17/17 10:54) Chest 1 View, Ap/Pa Only (10/17/17 10:54) Cardiac Profile 1 (10/17/17 10:54) Comprehensive Metabolic Panel (10/17/17 10:54) Myoglobin Serum (10/17/17 10:54) Protime With Inr (10/17/17 10:54) Partial Thromboplastin Time (10/17/17 10:54) O2 (10/17/17 10:54) Monitor-Rhythm Ecg Trace Only (10/17/17 10:54) Saline Lock/Iv-Start (10/17/17 10:54) Aspirin Chewable Tablet (Baby Aspirin Ch (10/17/17 11:00) Ns Iv 1000 Ml (Sodium Chloride 0.9%) (10/17/17 10:54) Us Carotid [place] Complete 12181 (10/17/17 10:54) Albuterol/Ipra Inhalation Soln (Duoneb I (10/17/17 12:30) Svn Sm Volume Nebulizer Rt-Rfs (10/17/17 12:22) Ns Iv 1000 Ml (Sodium Chloride 0.9%) (10/17/17 13:10) Ua Culture If Indicated (10/17/17 13:12) General/Regular (10/17/17 Lunch) Medications Given in ED Vital Signs/I&O Capillary Refill : Less Than 3 Seconds Blood Pressure Mean: 86 Point of Care Testing Finger Stick Blood Glucose: 191 Blood Glucose Action Taken: DR NOTIFIED Progress Note : Progress Note Workup was relatively unremarkable. Patient still had lightheadedness after 1 L of IV fluids. He also did not improve significantly with DuoNeb treatment. Case was discussed with Dr. Andrade who did not feel admission was necessary at this time but close follow-up in the clinic was recommended. Review of his chart in the cardiology clinic noted prior evaluation in the outpatient setting for lightheadedness as well. There was also reassurance by the cardiac catheterization performed in 2013. Patient received a second liter of IV fluids and was noting significant improvement after that. Patient noted that his blood sugars have been recently relatively uncontrolled and he may have gradually diuresed as a result. He was anxious for dismissal and was discharged with return precautions and instructions to follow-up with Dr. Andrade. ECG Initial ECG Impression Date: Oct 17, 2017 Initial ECG Impression Time: 09:47 Initial ECG Rate: 78 Initial ECG Rhythm: Normal Sinus Comment Sinus rhythm with no acute ST elevation or depression. Chronic left bundle branch block noted. Diagnostic Imaging Diagonstic Imaging: Xray Plain Films/CT/US/NM/MRI: chest Comments Chest x-ray viewed by me and report reviewed. See report below: NAME: EHSAN ZUÑIGA [facility] REC#: [id number] PT STATUS: REG ER : 1960 PHYSICIAN: NERIS MORILLO MD ADMIT DATE: 10/17/17/ER Draft Date of Exam:10/17/17 CHEST 1 VIEW, AP/PA ONLY INDICATION: Dizziness and shortness of air. TIME OF EXAM: 11:57 AM CORRELATION is made with prior study from 08/06/2017. FINDINGS: The heart size is normal. The lungs are clear. The pulmonary vascularity is normal. No infiltrates are seen. No effusion or pneumothorax identified. Postsurgical changes in the lower cervical spine are again noted. IMPRESSION: No acute cardiopulmonary process is detected. Dictated on workstation # [id number] Dict: 10/17/17 1151 Trans: 10/17/17 1155 [facility] [id number] Interpreted by: MEGAN HEREDIA MD Diagonstic Imaging: Ultrasound Plain Films/CT/US/NM/MRI: other (bilateral carotid arteries) Comments Ultrasound report reviewed. See report below: NAME: EHSAN ZUÑIGA [facility] REC#: [id number] PT STATUS: REG ER : 1960 PHYSICIAN: NERIS MORILLO MD ADMIT DATE: 10/17/17/ER Draft Date of Exam:10/17/17 US CAROTID [place] COMPLETE [id number] Indication: Dizziness and chest tightness. Technique: Multiple real-time grayscale images were obtained over the carotid arteries in various projections, bilaterally. Additional duplex Doppler and color Doppler images were also obtained. Findings: There is mild plaque identified at the carotid bifurcations and proximal internal carotid arteries bilaterally. The velocities are normal bilaterally. No velocity elevation or stenosis is seen. The ICA to CCA ratios are normal. Both vertebral arteries demonstrate antegrade flow. Impression: Mild bilateral carotid plaque. There is no evidence of a hemodynamically significant stenosis. Dictated on workstation # [id number] Dict: 10/17/17 1152 Trans: 10/17/17 1156 [id number] Interpreted by: MEGAN HEREDIA MD Departure Impression Impression: Primary Impression: Lightheaded Additional Impressions: Chest tightness COPD (chronic obstructive pulmonary disease) Qualified Codes: J44.9 - Chronic obstructive pulmonary disease, unspecified Disposition: HOME, SELF-CARE Condition: Improved Departure-Patient Inst. Decision time for Depature: 14:03 Referrals: JULIET RODRIGUEZ MD (PCP/Family) Primary Care Physician Patient Instructions: Chest Pain Add. Discharge Instructions: Drink plenty of water. Your urine should be light yellow or nearly clear if well-hydrated. Follow up with Dr. Andrade and Dr. Rodriguez as soon as possible. Return to emergency room if symptoms worsen. Continue strict compliance with your pulmonary medications. All discharge instructions reviewed with patient and/or family. Voiced understanding. Copy Copies To 1: JULIET RODRIGUEZ MD Copies To 2: JUSTICE ANDRADE MD, JOSHUA T MD Oct 17, 2017 11:53
--- NOTE | 2017-10-17 11:56 | Diagnostic Imaging Report ---
INDICATION: Dizziness and shortness of air. TIME OF EXAM: 11:57 AM CORRELATION is made with prior study from 08/06/2017. FINDINGS: The heart size is normal. The lungs are clear. The pulmonary vascularity is normal. No infiltrates are seen. No effusion or pneumothorax identified. Postsurgical changes in the lower cervical spine are again noted. IMPRESSION: No acute cardiopulmonary process is detected. Dictated by: Dictated on workstation # [id number]
--- NOTE | 2017-10-17 11:57 | Diagnostic Imaging Report ---
Indication: Dizziness and chest tightness. Technique: Multiple real-time grayscale images were obtained over the carotid arteries in various projections, bilaterally. Additional duplex Doppler and color Doppler images were also obtained. Findings: There is mild plaque identified at the carotid bifurcations and proximal internal carotid arteries bilaterally. The velocities are normal bilaterally. No velocity elevation or stenosis is seen. The ICA to CCA ratios are normal. Both vertebral arteries demonstrate antegrade flow. Impression: Mild bilateral carotid plaque. There is no evidence of a hemodynamically significant stenosis. Dictated by: Dictated on workstation # [id number]
[2017-10-17] MEDS ORDERED: RT-ALBUTEROL/IPRATROPIUM 3 ML (DUONEB) VIAL INH ONE (12:30)
[2017-10-17 13:26] LABS: BILIRUBIN,URINE NEGATIVE (NEGATIVE); CLARITY,URINE CLEAR; COLOR,URINE YELLOW; GLUCOSE, URINE (UA) 4+ (NEGATIVE); KETONES,URINE NEGATIVE (NEGATIVE); LEUKOCYTE ESTERASE ,URINE NEGATIVE (NEGATIVE); NITRITE,URINE NEGATIVE (NEGATIVE); PH,URINE 7 (5-9); PROTEIN,URINE 1+ (NEGATIVE); UROBILINOGEN,URINE NORMAL (NORMAL)
[2017-10-17 13:42] LABS: BACTERIA,URINE NEGATIVE /HPF; SQUAMOUS EPITHELIAL CELL,UR RARE /HPF
[2017-10-17 14:26] VITALS: BP 117/70
== END 2017-10-17 14:26 | disposition home or self-care (01) ==
LOC: EDUNIT# 10:22 → ER 10:23
DX: R42 Dizziness and giddiness (principal); R07.89 Other chest pain; J44.9 Chronic obstructive pulmonary disease, unspecified; F41.9 Anxiety disorder, unspecified; E11.40 Type 2 diabetes mellitus with diabetic neuropathy, unspecified; K21.9 Gastro-esophageal reflux disease without esophagitis; E78.00 Pure hypercholesterolemia, unspecified; I10 Essential (primary) hypertension; F12.90 Cannabis use, unspecified, uncomplicated; Z87.891 Personal history of nicotine dependence; Z87.09 Personal history of other diseases of the respiratory system; Z79.4 Long term (current) use of insulin; Z79.52 Long term (current) use of systemic steroids; Z88.1 Allergy status to other antibiotic agents
CPT/HCPCS: 36415; 71045; 80053; 81000; 82962; 83735; 83874; 84484; 85025; 85610; 85730; 93041; 93880; 94640; 96360; 96361

== ENCOUNTER 2017-11-07 09:00 | Outpatient (RCR) | payer OTHER, MEDICARE | END 2017-12-22 | disposition home or self-care (01) | LOC: PULM 09:00 | PROVIDERS: ATTEND Nurse Practitioner Family | DX: J84.9 Interstitial pulmonary disease, unspecified (principal); R09.02 Hypoxemia; R06.00 Dyspnea, unspecified; Z72.0 Tobacco use | CPT/HCPCS: 93005; 99211 ==

== ENCOUNTER → 2018-07-15 | Outpatient (CLI) | payer MEDICARE ==
[~2018-07-15] MED LIST changes: +ATOR10TA66 PO; +CARB200T6 PO; -CODE118S2; +CODE118S4; +LINE600T33 PO; +LOSA25TA6 PO; +METR-197 PO; -METR500T21 PO; +OXYC1TAB87 PO; +PREG300C PO; -ROPI0.25 PO; +ROPI0.253 PO
== END ==
LOC: WOUNDCARE 08:08
PROVIDERS: ATTEND Nurse Practitioner
DX: E11.621 Type 2 diabetes mellitus with foot ulcer (principal); L97.522 Non-pressure chronic ulcer of other part of left foot with fat layer exposed; Z72.0 Tobacco use
CPT/HCPCS: 11042; 87070; 87075; 87077; 87186; 87205

== ENCOUNTER → 2018-07-15 | Outpatient (CLI) | payer MEDICARE ==
--- NOTE | 2018-07-15 15:56 | Diagnostic Imaging Report ---
INDICATION: Chronic ulcer of the great toe. TIME OF EXAMINATION: 10:29 AM. TECHNIQUE: Three views of the left foot were obtained. FINDINGS: There appear to be erosive changes involving the tuft of the great toe. No other erosive changes are seen. There are no fractures. The proximal phalanx and metacarpals are intact. IMPRESSION: Erosive changes of the tuft of the great toe with some mild associated surrounding soft tissue swelling. The features are suggestive of osteomyelitis. Dictated by: Dictated on workstation # [id number]
== END ==
LOC: RAD 09:45
PROVIDERS: ATTEND Nurse Practitioner
DX: E11.621 Type 2 diabetes mellitus with foot ulcer (principal); L97.512 Non-pressure chronic ulcer of other part of right foot with fat layer exposed; Z72.0 Tobacco use
CPT/HCPCS: 73630

== ENCOUNTER → 2018-07-21 | Outpatient (CLI) | payer MEDICARE | LOC: WOUNDCARE 14:30 | PROVIDERS: ATTEND Surgery | DX: E11.621 Type 2 diabetes mellitus with foot ulcer (principal); L97.514 Non-pressure chronic ulcer of other part of right foot with necrosis of bone; E11.69 Type 2 diabetes mellitus with other specified complication; M86.472 Chronic osteomyelitis with draining sinus, left ankle and foot; Z72.0 Tobacco use | CPT/HCPCS: 11044; 87070; 87075; 87077; 87186; 87205 ==

== ENCOUNTER → 2018-07-21 | Outpatient (CLI) | payer MEDICARE ==
[2018-07-21 16:39] LABS: ALANINE AMINOTRANSFERASE 9 U/L (0-55); ALBUMIN 4.2 GM/DL (3.2-4.5); ALKALINE PHOSPHATASE 89 U/L (40-136); BILIRUBIN,TOTAL 0.3 MG/DL (0.1-1.0); BUN/CREATININE RATIO 15; CALCIUM 9.4 MG/DL (8.5-10.1); CARBON DIOXIDE 24 MMOL/L (21-32); CHLORIDE 105 MMOL/L (98-107); CREATININE SERUM 0.74 MG/DL (0.60-1.30); GFR ESTIMATED > 60; GLUCOSE 117 MG/DL (70-105); SODIUM 137 MMOL/L (135-145); TOTAL PROTEIN 7.2 GM/DL (6.4-8.2)
== END ==
LOC: LAB 16:03
PROVIDERS: ATTEND Surgery
DX: E11.621 Type 2 diabetes mellitus with foot ulcer (principal); L97.529 Non-pressure chronic ulcer of other part of left foot with unspecified severity
CPT/HCPCS: 36415; 80053; 83036

== ENCOUNTER 2018-07-22 05:45 | Outpatient (CLI) | payer MEDICARE ==
[~2018-07-22] VITALS: Ht 188 cm; Wt 104.3 kg
[~2018-07-22 05:45] MED LIST changes: -ATOR10TA66 PO; -CARB200T6 PO; -LINE600T33 PO; -LOSA25TA6 PO; -OXYC1TAB87 PO; -PREG300C PO
[2018-07-22] MEDS ORDERED: LINE600T33 PO (09:26)
[2018-07-22] MEDS ORDERED: OXYC1TAB87 PO (09:26)
[2018-07-22] MEDS ORDERED: PREG300C PO (09:26)
[2018-07-22] MEDS ORDERED: ATOR10TA66 PO (09:26)
[2018-07-22] MEDS ORDERED: LOSA25TA6 PO (09:26)
[2018-07-22] MEDS ORDERED: CARB200T6 PO (09:26)
== END 2018-07-22 09:28 | disposition home or self-care (01) ==
LOC: PREOP 05:45
PROVIDERS: ATTEND Internal Medicine Critical Care Medicine
DX: Z01.818 Encounter for other preprocedural examination (principal)

== ENCOUNTER 2018-07-23 06:35 | Day surgery (SDC) | payer MEDICARE ==
[~2018-07-23] VITALS: Ht 188 cm; Wt 104.3 kg
[~2018-07-23 06:35] MED LIST changes: +ATOR10TA66 PO; +CARB200T6 PO; +LINE600T33 PO; +LOSA25TA6 PO; +OXYC1TAB87 PO; +PREG300C PO
[2018-07-23] MEDS ORDERED: LIDOCAINE PF 1% 2 ML VIAL (OR ONLY) IJ ONE (06:36)
--- OUTSIDE RECORDS SUMMARY | 2018-07-23 06:38 | XMS REPORT | Clinical Summary ---
Author Author [facility] Organization [facility] Address Unknown Phone Unavailable Care Team Providers Care Clerical Administrative Assistant Name Role Phone Bashir Paula MD Unavailable Amol Soliz MD Unavailable Ashley Haddad MD PCP Source Comments Some departments are not documenting in the electronic medical record. If you do not see the information that you expected, contact Release of Information in the Health Information Management department at [phone] for further assistance in locating additional records.[facility] Allergies Active Allergy Reactions Severity Noted Date Comments Ceftriaxone ANAPHYLAXIS High 01/29/2018 Current Medications Prescription Sig. Disp. Refills Start End Date Status Date metoprolol (LOPRESSOR) 50 Take 50 mg by mouth twice Active mg tablet daily. esomeprazole DR(+) Take 40 mg by mouth every Active (NEXIUM) 40 mg capsule morning. insulin detemir(+) Inject 40 Units into Active (LEVEMIR) 100 unit/mL area(s) as directed daily Soln before breakfast. insulin aspart (NOVOLOG) Inject 10 Units into Active 100 unit/mL injection area(s) as directed three times daily with meals. pregabalin (LYRICA) 300 Take 300 mg by mouth Active mg capsule twice daily. pantoprazole DR Take 40 mg by mouth Active (PROTONIX) 40 mg tablet daily. losartan (COZAAR) 25 mg Take 25 mg by mouth Active tablet daily. montelukast (SINGULAIR) Take 10 mg by mouth at Active 10 mg tablet bedtime daily. budesonide/formoterol Inhale 2 puffs by mouth Active (SYMBICORT HFA) 80-4.5 into the lungs twice mcg/actuation inhalation daily. tiotropium bromide Inhale 2 puffs by mouth Active (SPIRIVA RESPIMAT) 1.25 into the lungs daily. mcg/actuation inhaler albuterol (VENTOLIN HFA) Inhale 2 puffs by mouth Active 90 mcg/actuation inhaler into the lungs every 6 hours as needed for Wheezing or Shortness of Breath. Shake well before use. sayfudpmqvo-[id number] Inject 0.25 mL into base 10 mL 3 01/30/20 Active entolamine(#)(+) of penis as directed as 18 (TRI-MIX) 5.88-17.65-0.59 Needed for Erectile mcg-mg-mg/mL injection dysfunction. Inject as directed. Titrate to lowest effective dose. Max 1 injection/ 72 hrs. Active Problems Problem Noted Date Erectile dysfunction 01/29/2018 Overview: ED began 2013 Risk factors HTN, DM poorly controlled, obesity, CAD Failure of oral PDE-5 inhibitors No blood thinners or nitrates L ast Assessment & Plan: 57 year old male with interstitial lung disease, IDDM, and ED refractory to oral PDE-5 therapy. Risk factor reduction of smoking cessation, diabetic control, hypertension control, cholesterol control, diet, and exercise were all stressed to the patient. Treatment options reviewed included oral phosphodiesterase-5 inhibitors, intraurethral suppositories, intra cavernosal injections, vacuum erection device, and penile prosthesis. 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 ILD (interstitial lung disease) ([facility]) 06/29/2013 Dyspnea 06/29/2013 Long-term use of immunosuppressant [...] Vital Sign Reading Time Taken Blood Pressure 143/67 01/29/2018 3:02 PM CDT Pulse 90 01/29/2018 3:02 PM CDT Temperature 36.9 C (98.4 F) 06/23/2013 12:35 PM CDT Respiratory Rate 20 06/23/2013 12:35 PM CDT Oxygen Saturation 96% 06/23/2013 12:35 PM CDT Inhaled Oxygen - - Concentration Weight 113.3 kg (249 lb 12.8 oz) 01/29/2018 3:02 PM CDT Height 188 cm (6' 2") 01/29/2018 3:02 PM CDT Body Mass Index 32.07 01/29/2018 3:02 PM CDT Plan of Treatment Health Maintenance Due Date Last Done Comments HEPATITIS C SCREENING 1960 PHYSICAL (COMPREHENSIVE) 1969 EXAM PERTUSSIS VACCINE 1973 HIV SCREENING 1977 TETANUS VACCINE 1979 COLORECTAL CANCER 2012 SCREENING SHINGLES RECOMBINANT 2012 VACCINE (1 of 2) INFLUENZA VACCINE 04/16/2018 Results Not on filefrom Last 3 Months
--- OUTSIDE RECORDS SUMMARY | 2018-07-23 06:39 | XMS REPORT ---
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 Name Role Phone TATYANA CHAPPELL Unavailable PROBLEMS Type Condition ICD9-CM Code FCB56-SQ Code Onset Dates Condition Status SNOMED Code Problem Family history of colon cancer Z80.0 Active 643828384 Problem Arm paresthesia, right R20.2 Active 95147589 Problem Diabetic neuropathy, painful E11.40 Active 392701223 Problem COPD exacerbation J44.1 Active 131386408 Problem Diverticulitis K57.92 Active 395584057 Problem Gastroesophageal reflux disease without esophagitis K21.9 Active 921963080 Problem Respiratory bronchiolitis interstitial lung disease J84.115 Active 925469351 Problem Pain of right upper extremity M79.601 Active 582522422 Problem Interstitial lung disease J84.9 Active 606336976 Problem Hypoxia R09.02 Active 770342683 Problem Abdominal pain R10.9 Active 00872736 Problem detention 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.4 Active 493588183 Problem Essential hypertension I10 Active 49390918 Problem Neuropathy G62.9 Active 461304339 Problem Impotence N52.9 Active 589818626 Problem Type 2 diabetes 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 E11.8 Active 46198162 Problem Coronary atherosclerosis due to lipid rich plaque I25.83 Active 40472941 Problem Obstructive sleep apnea syndrome G47.33 Active 80604001 Problem Change in bowel habit R19.4 Active 20883760 Problem Drug abuse, opioid type F11.10 Active 6314813 ALLERGIES Substance Reaction Event Type Date Status Staxyn Decreased blood pressure Drug Allergy May, Active Tramadol HCl hx of overdose Drug Allergy May, Active Hydrocodone-Acetaminophen hx of overdose Drug Allergy May, Active Clonazepam hx of overdose Drug Allergy May, Active ENCOUNTERS Encounter Location Date Diagnosis [facility], [place] [id number] [place] [address] 73627- 8649 Aug, [facility] [place] [id number] [place] [address] 56738- 3043 Aug, Diabetic neuropathy, painful E11.40 ; Interstitial lung disease J84.9 ; Chronic cough R05 ; Type 2 diabetes 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 E11.8 and 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 [facility] [place] [id number] [place] [address] 40205- 6835 Jul, [facility], [place] [id number] [place] [address] 31508- 3798 Jul, [facility], [place] [address] 52574- 2096 Jul, Diabetic neuropathy, painful E11.40 [place] [id number] [place] [address] 59590- 7170 Jul, Type 2 diabetes 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 E11.8 [facility] [place] [id number] [place] [address] 41730- 6809 Jun, Diabetic neuropathy, painful E11.40 [facility] [place] [id number] [place] [address] 58694- 9657 Jun, [facility] [id number] [place] [address] 94742 -9705 Jun, Type 2 diabetes 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 E11.8 ; Other viral agents as the cause of diseases classified elsewhere B97.89 ; Acute upper respiratory infection, unspecified J06.9 ; Acute recurrent maxillary sinusitis J01.01 ; Sore throat J02.9 and Headache R51 [facility] [place] [id number] [place] [address] 29340- 9192 04 Jun, 2017 Right lower quadrant abdominal pain R10.31 and Type 2 diabetes 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 E11.8 [facility], [place] [id number] [place] [address] 19322- 5203 May, Diabetic neuropathy, painful E11.40 [facility] [place] [address] [place] [address] 1914 May, COPD exacerbation J44.1 and Type 2 diabetes 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 E11.8 [place] [address] 19783- 9045 Apr, Diabetic neuropathy, painful E11.40 [place] [address] 62756- 4160 Apr, Diabetic neuropathy, painful E11.40 [facility] [address] 60812 -4161 Mar, Bronchitis J40 [place] [address] 93260- 2467 January, Type 2 diabetes 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 E11.8 ; Diabetic neuropathy, painful E11.40 ; Impotence N52.9 ; Coronary atherosclerosis due to lipid rich plaque I25.83 ; detention 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.4 ; Interstitial lung disease J84.9 ; Hypoxia R09.02 ; Essential hypertension I10 ; Gastroesophageal reflux disease without esophagitis K21.9 ; Left upper arm pain M79.622 and Cervical spinal stenosis M48.02 [facility] [address] 16206 -0369 January, Viral gastroenteritis A08.4 [place] [id number] [place] [address] 23623- 6281 Dec, Diabetic neuropathy, painful E11.40 [facility] [id number] [place] [address] [id number] Oct, [place] [address] 23352- 0069 Oct, Acute right-sided weakness M62.89 and Slurring of speech R47.81 [place] [id number] [place] [address] 12836- 4700 Sep, Type 2 diabetes 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 E11.8 ; Diabetic neuropathy, painful E11.40 ; Impotence N52.9 ; Coronary atherosclerosis due to lipid rich plaque I25.83 ; 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 ; Interstitial lung disease J84.9 ; Hypoxia R09.02 ; Essential hypertension I10 and Gastroesophageal reflux disease without esophagitis K21.9 [facility] [id number] [place] [address] 91740 -8421 Sep, Bronchitis J40 [facility] [address] 49480 -1301 Aug, Gastroenteritis and colitis, viral A08.4 [facility] [place] [address] 27979- 6375 Aug, [place] [address] 14514- 4074 Jun, Type 2 diabetes 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 E11.8 ; Diabetic neuropathy, painful E11.40 ; Impotence N52.9 ; Coronary atherosclerosis due to lipid rich plaque I25.83 ; 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 ; Interstitial lung disease J84.9 ; Hypoxia R09.02 and Essential hypertension I10 [place] [address] 31510- 4941 30 May, 2016 Bronchitis J40 [facility] [place] [address] 51250- 3254 29 May, 2016 [place] [address] 78876- 2335 May, Pain of right upper extremity M79.601 [place] [id number] [place] [address] 75578- 5612 May, [place] [address] 67230- 2439 15 May, 2016 [place] [address] 91093- 0179 07 May, 2016 Right hand pain M79.641 [place] [address] 58592- 2884 Apr, [place] [address] [place] [address] 34910- 1056 Apr, [place] [id number] [place] [address] 80206- 6513 Mar, [place] [id number] [place] [address] 12763- 4455 Mar, Essential hypertension I10 [place] [address] 10493- 9176 Feb, [place] [id number] [place] [address] 14754- 8351 Feb, Interstitial lung disease J84.9 and Bronchitis J40 [place] [id number] [place] [address] 96975- 3717 Feb, [place] [id number] [place] [address] 88131- 9531 Feb, Type 2 diabetes 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 E11.8 ; Impotence N52.9 ; Coronary atherosclerosis due to lipid rich plaque I25.83 ; 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 and Diabetic neuropathy, painful E11.40 [place] [address] [place] [address] 05060- 6420 January, [place] [id number] [place] [address] 25801- 7552 January, Arm paresthesia, right R20.2 and Pain of right upper extremity M79.601 [place] [address] [place] [address] 34982- 9192 Dec, Lumbar strain S39.012A [place] [id number] [place] [address] 06191- 6261 Nov, Diabetic neuropathy, painful E11.40 ; Respiratory bronchiolitis interstitial lung disease J84.115 ; Pain of right upper extremity M79.601 and Arm paresthesia, right R20.2 [place] [id number] [place] [address] 39379- 6372 Nov, Diabetic neuropathy, painful E11.40 [place] [address] 39108- 7612 Sep, Type 2 diabetes 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 E11.8 ; Impotence N52.9 ; Coronary atherosclerosis due to lipid rich plaque I25.83 ; 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 ; Diabetic neuropathy, painful E11.40 ; Chest pain R07.9 and Restless leg G25.81 [place] [address] 03680- 7528 Sep, [place] [address] 23562- 3058 Jul, COPD (chronic obstructive pulmonary disease) with acute bronchitis J44.0 [place] [address] 74088- 6994 Jun, Abdominal pain R10.9 ; Family history of colon cancer Z80.0 and Diverticulitis K57.92 [place] [id number] [place] [address] 61026- 1946 Jun, Abdominal pain R10.9 and Diverticulitis K57.92 [place] [id number] [place] [address] 64206- 4395 Apr, Diabetes with other specified manifestations, type II or unspecified type, not stated as uncontrolled 250.80 ; Coronary atherosclerosis of unspecified type of vessel, [place] or graft 414.00 ; Unspecified essential hypertension 401.9 ; Impotence of organic origin 607.84 ; Sleep apnea 780.57 and Interstitial lung disease [address] [place] [id number] [place] [address] 80689- 4918 Dec, [place] [address] 30907- 3533 Dec, [place] [id number] [place] [address] 91976- 2819 Nov, [facility] [place] [facility] [address] [id number] [place] [address]- 8658 Nov, [facility] [place] [facility] [address] [id number] [place] [address]- 6744 Nov, [facility] [place] [facility] [address] [id number] [place] [address]- 6348 Nov, [facility] [place] [facility] [address] [id number] [place] [address]- 4211 Nov, [facility] [place] [facility] [address] [id number] [place] [address]- 4652 Nov, [facility] [place] [facility] [address] [id number] [place] [address]- 9062 Nov, [facility] [place] [facility] [address] [facility] [id number] [place] [address]- 0925 Nov, [facility] [place] [facility] [address] [id number] [place] [address]- 6198 Nov, [facility] [place] [facility] [address] [id number] [place] [address]- 2540 Nov, [facility] [place] [facility] [address] [id number] [place] [address]- 0363 Oct, 2014 [facility] [place] [facility] [address] [facility] [id number] [place] [address]- 2863 Oct, 2014 [facility] [place] [facility] [address] [id number], [place] [address]- 8988 Oct, 2014 [facility] [place] [facility] [address] [id number] [place] [address]- 3309 Oct, 2014 [facility] [place] [facility] [address] [id number] [place] [address]- 3630 Oct, 2014 [facility] [place] [facility] [address] [facility] [id number] [place] [address]- 9230 Oct, 2014 [facility] [place] [facility] [address] [id number], [place] [address]- 5017 04 Oct, 2014 [facility] [place] [facility] [address] [id number] [place] [address]- 4590 04 Oct, 2014 [facility] [place] [facility] [address] [id number] [place] [address]- 5356 Oct, 2014 [facility] [place] [facility] [address] [id number] [place] [address]- 8352 Oct, 2014 [facility] [place] [facility] [address] [id number] [place] [address]- 1598 Oct, 2014 [facility] [place] [facility] [address] [id number] [place] [address]- 2763 Jul, [facility] [place] [facility] [address] [id number] [place] [address]- 8097 Jul, [facility] [place] [facility] [address] [facility] [id number] [place] [address]- 1022 29 Jun, 2014 [facility] [place] [facility] [address] [id number] [place] [address]- 1518 29 Jun, 2014 [facility] [place] [facility] [address] [id number] [place] [address]- 3901 17 Jun, 2014 [facility] [place] [facility] [address] [facility] [id number] [place] [address]- 3842 17 Jun, 2014 [facility] [place] [facility] [address] [id number] [place] [address]- 9549 15 Jun, 2014 [facility] [place] [facility] [address] [id number] [place] [address]- 2280 15 Jun, 2014 [facility] [place] [facility] [address] [id number] [place] [address]- 9232 14 Jun, 2014 [facility] [place] [facility] [address] [id number] [place] [address]- 6612 14 Jun, 2014 [facility] [place] [facility] [address] [id number] [place] [address]- 2820 13 Jun, 2014 [facility] [place] [facility] [address] [id number] [place] [address]- 1883 Jun, [facility] [place] [facility] [address] [id number] [place] [address]- 5253 Jun, [facility] [place] [facility] [address] [id number] [place] [address]- 8661 Jun, [facility] [place] [facility] [address] [id number] [place] [address]- 6961 Jun, [facility] [place] [facility] [address] [id number] [place] [address]- 6112 Jun, [facility] [place] [facility] [address] [id number] [place] [address]- 0400 30 May, 2014 [facility] [place] [facility] [address] [id number] [place] [address]- 0459 30 May, 2014 [facility] [place] [facility] [address] [id number] [place] [address]- 4375 May, [facility] [place] [facility] [address] [id number] [place] [address]- 5528 May, [facility] [place] [facility] [address] [id number] [place] [address]- 5738 05 May, 2014 [facility] [place] [facility] [address] [id number] [place] [address]- 7100 May, [facility] [place] [facility] [address] [id number] [place] [address]- 5942 Apr, [facility] [place] [facility] [address] [id number] [place] [address]- 8345 Apr, [facility] [place] [facility] [address] [id number] [place] [address]- 2372 Apr, [facility] [place] [facility] [address] [id number] [place] [address]- 1630 Apr, [facility] [place] [facility] [address] [id number] [place] [address]- 6953 Apr, [facility] [place] [facility] [address] [id number] [place] [address]- 0786 Apr, [facility] [place] [facility] [address] [id number] [place] [address]- 6025 Apr, [facility] [place] [facility] [address] [id number] [place] [address]- 4750 Apr, [facility] [place] [facility] [address] [id number] [place] [address]- 3105 Apr, [facility] [place] [facility] [address] [id number] [place] [address]- 8142 Apr, [facility] [place] [facility] [address] [id number] [place] [address]- 5738 Apr, [facility] [place] [facility] [address] [id number] [place] [address]- 9165 Apr, [facility] [place] [facility] [address] [id number] [place] [address]- 2600 Mar, [facility] [place] [facility] [address] [id number] [place] [address]- 5501 Mar, [facility] [place] [facility] [address] [id number] [place] [address]- 5292 Mar, [facility] [place] [facility] [address] [id number] [place] [address]- 7219 Mar, [facility] [place] [facility] [address] [id number] [place] [address]- 8829 Mar, [facility] [place] [facility] [address] [id number] [place] [address]- 3481 Mar, [facility] [place] [facility] [address] [id number] [place] [address]- 6276 Mar, [facility] [place] [facility] [address] [id number] [place] [address]- 1351 Mar, [facility] [place] [facility] [address] [id number] [place] [address]- 5204 Mar, [facility] [place] [facility] [address] [id number] [place] [address]- 8247 Mar, [facility] [place] [facility] [address] [id number] [place] [address]- 4446 Mar, [facility] [place] [facility] [address] [id number] [place] [address]- 5286 Feb, [facility] [place] [facility] [address] [id number] [place] [address]- 1928 Feb, [facility] [place] [facility] [address] [id number] [place] [address]- 3262 Feb, [facility] [place] [facility] [address] [id number] [place] [address]- 6090 Feb, [facility] [place] [facility] [address] [id number] [place] [address]- 7030 Feb, [facility] [place] [facility] [address] [id number] [place] [address]- 5598 Feb, [facility] [place] [facility] [address] [id number] [place] [address]- 7933 Feb, [facility] [place] [facility] [address] [id number] [place] [address]- 1404 Feb, [facility] [place] [facility] [address] [id number] [place] [address]- 6245 Feb, [facility] [place] [facility] [address] [id number] [place] [address]- 9361 Feb, [facility] [place] [facility] [address] [id number] [place] [address]- 3454 January, [facility] [place] [facility] [address] [id number] [place] [address]- 9163 January, [facility] [place] [facility] [address] [id number] [place] [address]- 8461 January, [facility] [address] [id number] [place] [address]- 3227 January, [facility] [place] [facility] [address] [id number] [place] [address]- 0105 January, [facility] [place] [facility] [address] [id number] [place] [address]- 0273 January, [facility] [place] [facility] [address] [id number] [place] [address]- 3643 January, [facility] [place] [facility] [address] [id number] [place] [address]- 9106 January, [facility] [place] [facility] [address] [id number] [place] [address]- 1698 January, [facility] [place] [facility] [address] [id number] [place] [address]- 3889 January, [facility] [place] [facility] [address] [id number] [place] [address]- 6935 January, [facility] [place] [facility] [address] [id number] [place] [address]- 7267 January, [facility] [place] [facility] [address] [id number] [place] [address]- 0772 January, [facility] [place] [facility] [address] [id number] [place] [address]- 7802 January, [facility] [place] [facility] [address] [id number] [place] [address]- 8194 January, [facility] [place] [facility] [address] [id number] [place] [address]- 2213 January, [facility] [place] [facility] [address] [id number] [place] [address]- 8617 Dec, [facility] [place] [facility] [address] [id number] [place] [address]- 8132 Dec, [facility] [place] [facility] [address] [id number] [place] [address]- 1053 Dec, [facility] [place] [facility] [address] [id number] [place] [address]- 1533 Dec, [facility] [place] [facility] [address] [id number] [place] [address]- 1348 Dec, [facility] [place] [facility] [address] [id number] [place] [address]- 3767 Dec, [facility] [place] [facility] [address] [id number] [place] [address]- 1969 Dec, [facility] [place] [facility] [address] [id number] [place] [address]- 0454 Dec, [facility] [place] [facility] [address] [id number] [place] [address]- 3748 Dec, [facility] [place] [facility] [address] [id number] [place] [address]- 2546 Dec, [facility] [place] [facility] [address] [id number] [place] [address]- 8205 Nov, [facility] [place] [facility] [address] [id number] [place] [address]- 2566 Nov, [facility] [place] [facility] [address] [id number] [place] [address]- 3904 Oct, [facility] [place] [facility] [address] [id number] [place] [address]- 9987 Oct, [facility] [place] [facility] [address] [id number] [place] [address]- 6407 Oct, [facility] [place] [facility] [address] [id number] [place] [address]- 0048 Sep, [facility] [place] [facility] [address] [id number] [place] [address]- 1838 Sep, [facility] [place] [facility] [address] [id number], [place] [address]- 6900 Sep, [facility] [place] [facility] [address] [id number] [place] [address]- 9553 Sep, [facility] [place] [facility] [address] [id number] [place] [address] Sep, [facility] [place] [facility] [address] [id number] [place] [address] Sep, [facility] [place] [facility] [address] [id number] [place] [address] Sep, [facility] [place] [facility] [address] [id number] [place] [address] Sep, [facility] [place] [facility] [address] [id number] [place] [address] Sep, [facility] [place] [facility] [address] [id number] [place] [address] Sep, [facility] [address] [id number] [place] [address] Sep, [facility] [place] [facility] [address] [id number] [place] [address] Sep, [facility] [place] [facility] [address] [id number] [place] [address] Aug, [facility] [place] [facility] [address] [id number] [place] [address] Aug, [facility] [place] [facility] [address] [id number] [place] [address] Aug, [facility] [place] [facility] [address] [id number] [place] [address] Aug, [facility] [place] [facility] [address] [id number] [place] [address] Jul, [facility] [place] [facility] [address] [id number] [place] [address] Jul, [facility] [place] [facility] [address] [id number], [place] [address] Jun, [facility] [place] [facility] [address] [id number] [place] [address] Jun, [facility] [place] [facility] [address] [id number] [place] [address] Jun, [facility] [place] [facility] [address] [id number] [place] [address] Jun, [facility] [place] [facility] [address] [id number], [place] [address] Jun, [facility] [place] [facility] [address] [id number] [place] [address] Jun, [facility] [place] [facility] [address] [id number] [place] [address] Jun, [facility] [place] [facility] [address] [id number] [place] [address] Jun, [facility] [place] [facility] [address] [id number], [place] [address] 24 May, 2013 [facility] [place] [facility] [address] [id number] [place] [address]- [address] 23 May, 2013 [facility] [place] [facility] [address] [id number] [place] [address] 18 May, 2013 [facility] [place] [facility] [address] [id number], [place] [address] 13 May, 2012 [facility] [place] [facility] [address] [id number], [place] [address] 11 May, 2013 [facility] [place] [facility] [address] [id number] [place] [address] 06 May, 2013 [facility] [place] [facility] [address] [id number], [place] [address] 03 May, 2013 [facility] [place] [facility] [address] [id number] [place] [address] 30 Apr, 2013 [facility] [place] [facility] [address] [id number] [place] [address] Apr, [facility] [address] [id number] [place] [address] Apr, [facility] [place] [facility] [address] [id number] [place] [address] Apr, [facility] [address] [id number] [place] [address] Apr, [facility] [place] [facility] [address] [id number] [place] [address] Apr, [facility] [address] [id number] [place] [address] Apr, [facility] [address] [id number] [place] [address] Mar, [facility] [address] [id number] [place] [address] Mar, [facility] [address] [id number] [place] [address] Mar, [facility] [place] [facility] [address] [id number] [place] [address] Mar, [facility] [address] [id number] [place] [address] Mar, [facility] [place] [facility] [address] [id number] [place] [address] Mar, [facility] [place] [facility] [address] [id number] [place] [address] Mar, [facility] [place] [facility] [address] [id number] [place] [address] Mar, [facility] [place] [facility] [address] [id number] [place] [address] Feb, [facility] [place] [facility] [address] [id number] [place] [address] Feb, [facility] [address] [id number] [place] [address] Feb, [facility] [address] [id number] [place] [address] January, [facility] [address] [id number] [place] [address] January, [facility] [address] [id number] [place] [address] January, [facility] [address] [id number] [place] [address] January, [facility] [address] [id number] [place] [address] January, [facility] [address] [id number] [place] [address] January, [facility] [address] [id number] [place] [address] January, [facility] [address] [id number] [place] [address] 1664 January, [facility] [address] [id number] [place] [address] 47[address] Dec, [facility] [address] [id number] [place] [address] Dec, [facility] [place] [facility] [address] [id number], [place] [address] Dec, [facility] [place] [facility] [address] [id number] [place] [address] Dec, [facility] [place] [facility] [address] [id number] [place] [address] 49[address] Dec, [facility] [place] [facility] [address] [id number] [place] [address] 69[address] Nov, [facility] [place] [facility] [address] [id number], [place] [address] 21 Nov, 2012 [facility] [address] [id number] [place] [address] 19 Nov, 2012 [facility] [place] [facility] [address] [id number] [place] [address] 18 Nov, 2012 [facility] [place] [facility] [address] [facility] [id number] [place] [address] 18 Nov, 2012 [facility] [place] [facility] [address] [id number] [place] [address]- 4968 14 Nov, 2012 [facility] [place] [facility] [address] [id number] [place] [address] 2626 11 Nov, 2012 [facility] [place] [facility] [address] [facility] [id number] [place] [address] 11 Nov, 2012 [facility] [address] [id number] [place] [address] 21 Oct, 2012 [facility] [place] [facility] [address] [facility] [id number] [place] [address] 37[address] Oct, [facility] [place] [facility] [address] [facility] [id number] [place] [address] 1132 12 Oct, 2012 [facility] [place] [facility] [address] [facility] [id number] [place] [address] 08 Oct, 2012 [facility] [place] [facility] [address] [id number] [place] [address] 07 Oct, 2012 [facility] [place] [facility] [address] [facility] [id number], [place] [address] 07 Oct, 2012 [facility] [place] [facility] [address] [facility] [id number] [place] [address] 05 Oct, 2012 [facility] [place] [facility] [address] [facility] [id number], [place] [address] 04 Oct, 2012 [facility] [place] [facility] [address] [id number], [place] [address] Oct, [facility] [address] [id number] [place] [address]777 Sep, [facility] [place] [facility] [address] [id number] [place] [address] 3826 Sep, [facility] [place] [facility] [address] [id number] [place] [address] 8746 Sep, [facility] [place] [facility] [address] [id number] [place] [address] 7796 Sep, [facility] [address] [id number] [place] [address] 7839 Sep, [facility] [place] [facility] [address] [id number] [place] [address]- 1046 Sep, [facility] [place] [facility] [address] [id number] [place] [address] 3955 Aug, [facility] [place] [facility] [address] [id number] [place] [address] 7[address] Aug, [facility] [place] [facility] [address] [id number] [place] [address]- 9578 Aug, [facility] [place] [facility] [address] [id number] [place] [address]- 2380 Aug, [facility] [place] [facility] [address] [id number], [place] [address] 69[address] Aug, [facility] [place] [facility] [address] [id number], [place] [address] 39[address] 18 Aug, 2012 [facility] [place] [facility] [address] [id number] [place] [address] 3963 13 Aug, 2012 [facility] [place] [facility] [address] [id number] [place] [address]- 0956 Aug, [facility] [place] [facility] [address] [id number], [place] [address] 59[address] Aug, [facility] [place] [facility] [address] [id number], [place] [address] Jul, [facility] [place] [id number], [place] [address] Jul, [facility] [place] [id number] [place] [address]107- [address] Jul, [facility] [place] [id number] [place] [address]98 Jul, [facility] [place] [id number] [place] [address]- [address] Nov, [facility] [place] [id number] [place] [address]005- 3897 Sep, [facility] [place] [id number] [place] [address]- [address] Aug, [facility] [place] [id number] [place] [address]- 8[address] Aug, [facility] [place] [id number] [place] [address]- [address] Aug, [facility] [place] [id number] [place] [address]- [address] Jul, IMMUNIZATIONS No Known Immunizations SOCIAL HISTORY Never Assessed REASON FOR VISIT Diabetes---LORI Pulido, pt. is requesting a chest xray due to not being able to breath last few days PLAN OF CARE Activity Details Follow Up 3 Months Reason:Diabetes VITAL SIGNS Height 74 in 2017-05-22 Weight 235.0 lbs 2017-05-22 Temperature 97.7 degrees Fahrenheit 2017-05-22 Heart Rate 80 bpm 2017-05-22 Respiratory Rate 20 2017-05-22 Oximetry on oxygen : 95 % 2017-05-22 BMI 30.17 kg/m2 2017-05-22 Blood pressure systolic 138 mmHg 2017-05-22 Blood pressure diastolic 76 mmHg 2017-05-22 MEDICATIONS Medication Instructions Dosage Frequency Start Date End Date Duration Status ibuprofen 1 tab Active Naproxen 500 MG Orally every 12 hrs 1 tablet as needed 12h Active Lyrica 150 MG Orally 3 times a day 1 capsule 8h 30 days Active Aspirin Adult Low Strength 81 MG Orally Once a day 1 tablet 24h Active Levaquin 750 MG Orally Once a day 1 tablet 24h May, May, 07 days Active ProAir HFA 108 (90 Base) MCG/ACT Inhalation every 4 hrs 2 puffs as needed 4h Active NovoLog 100 UNIT/ML sq tid inject 15 Units by Subcutaneous route 3 times per day before meals 8h Active Lisinopril 10 mg Orally Once a day 1 tablet 24h Active Metoprolol Tartrate 50 mg Orally Twice a day 1 tablet 12h 30 Active Promethazine HCl 25 MG Orally 4 times a day 1 tablet as needed 6h January, Active Symbicort 160-4.5 MCG/ACT Inhalation Twice a day 2 puffs 12h Active Oxygen 3 L/NC 24h Active PredniSONE 20 mg Orally Once a day 2 tablets daily x 3 days, then 1 tablet daily x 3 days 24h May, May, 6 days Active Zofran ODT 4 MG Orally every 8 hrs 1 tablet on the tongue and allow to dissolve 8h Active Pantoprazole Sodium 40 mg Orally Once a day 1 tablet 24h 30 days Active Spiriva HandiHaler 18 MCG Active Levemir 100 UNIT/ML sq bid 35 units 12h Active RESULTS No Results PROCEDURES Procedure Date Ordered Result Body Site MEASURE BLOOD OXYGEN LEVEL May 22, 2017 GLYCATED HEMOGLOBIN TEST May 22, 2017 INSTRUCTIONS MEDICATIONS ADMINISTERED No Known Medications MEDICAL (GENERAL) HISTORY Type Description Date Medical [...] 06/27/2016 Hospitalization History Overdosed on Clonazepam #35. [place] 03/2014 Hospitalization History Overdosed on Xanax 07/2012 Hospitalization History Hypostension-medication side effect-[facility]ia [facility] 03/13/16
--- OUTSIDE RECORDS SUMMARY | 2018-07-23 06:40 | XMS REPORT ---
Author Author TATYANA CHAPPELL [facility] Address [address] [place] [address] Care Team Providers Care Intake Assessor Name Role Phone TATYANA CHAPPELL Unavailable PROBLEMS Type Condition ICD9-CM Code [id number] Code Onset Dates Condition Status SNOMED Code Problem Family history of colon cancer Z80.0 Active 061970275 Problem Arm paresthesia, right R20.2 Active 68094010 Problem Diabetic neuropathy, painful E11.40 Active 146397297 Problem COPD exacerbation J44.1 Active 610272632 Problem Diverticulitis K57.92 Active 231312310 Problem Gastroesophageal reflux disease without esophagitis K21.9 Active 785035193 Problem Respiratory bronchiolitis interstitial lung disease J84.115 Active 091470126 Problem Pain of right upper extremity M79.601 Active 731498176 Problem Interstitial lung disease J84.9 Active 325183225 Problem Hypoxia R09.02 Active 199270794 Problem Abdominal pain R10.9 Active 32998212 Problem [facility] 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.4 Active 411758220 Problem Essential hypertension I10 Active 33351002 Problem Neuropathy G62.9 Active 368617751 Problem Impotence N52.9 Active 650212998 Problem Type 2 diabetes 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 E11.8 Active 07897579 Problem Coronary atherosclerosis due to lipid rich plaque I25.83 Active 76592445 Problem Obstructive sleep apnea syndrome G47.33 Active 27455356 Problem Change in bowel habit R19.4 Active 46866138 Problem Drug abuse, opioid type F11.10 Active 6120675 ALLERGIES Substance Reaction Event Type Date Status Staxyn Decreased blood pressure Drug Allergy Aug, Active Tramadol HCl hx of overdose Drug Allergy Aug, Active Hydrocodone-Acetaminophen hx of overdose Drug Allergy Aug, Active Clonazepam hx of overdose Drug Allergy Aug, Active ENCOUNTERS Encounter Location Date Diagnosis [facility] [id number] [place] [address] 99298- 2490 Aug, [facility] [id number] [place] [address] 48313- 1857 Aug, Diabetic neuropathy, painful E11.40 ; Interstitial lung disease J84.9 ; Chronic cough R05 ; Type 2 diabetes 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 E11.8 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 [facility] [id number] [place] [address] 80371- 9438 Jul, [facility] [id number] [place] [address] 36241- 9734 Jul, [facility] [address] 25269- 3791 Jul, Diabetic neuropathy, painful E11.40 [facility] [id number] [place] [address] 01199- 4874 Jul, Type 2 diabetes 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 E11.8 [facility] [id number] [place] [address] 80017- 2360 Jun, Diabetic neuropathy, painful E11.40 [facility] [id number] [place] [address] 30861- 5725 Jun, [facility] [id number] [place] [address] 84615 -6420 Jun, Type 2 diabetes 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 E11.8 ; Other viral agents as the cause of diseases classified elsewhere B97.89 ; Acute upper respiratory infection, unspecified J06.9 ; Acute recurrent maxillary sinusitis J01.01 ; Sore throat J02.9 and Headache R51 [facility] [id number] [place] [address] 85097- 9896 04 Jun, 2017 Right lower quadrant abdominal pain R10.31 and Type 2 diabetes 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 E11.8 [facility] [id number] [place] [address] 17918- 9149 May, Diabetic neuropathy, painful E11.40 [facility] [address] [place] [address]- 9624 May, COPD exacerbation J44.1 and Type 2 diabetes 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 E11.8 [place] [address] 25400- 1704 Apr, Diabetic neuropathy, painful E11.40 [place] [address] 81708- 5290 Apr, Diabetic neuropathy, painful E11.40 [facility] [address] 46180 -6467 Mar, Bronchitis J40 [place] [address] 76052- 5011 January, Type 2 diabetes 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 E11.8 ; Diabetic neuropathy, painful E11.40 ; Impotence N52.9 ; Coronary atherosclerosis due to lipid rich plaque I25.83 ; [facility] 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.4 ; Interstitial lung disease J84.9 ; Hypoxia R09.02 ; Essential hypertension I10 ; Gastroesophageal reflux disease without esophagitis K21.9 ; Left upper arm pain M79.622 and Cervical spinal stenosis M48.02 [facility] [address] 11687 -6066 January, Viral gastroenteritis A08.4 [facility] [id number] [place] [address] 40408- 6046 Dec, Diabetic neuropathy, painful E11.40 [facility] [id number] [place] [address] [id number] Oct, [place] [address] 90213- 2240 Oct, Acute right-sided weakness M62.89 and Slurring of speech R47.81 [facility] [id number] [place] [address] 66110- 4232 Sep, Type 2 diabetes 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 E11.8 ; Diabetic neuropathy, painful E11.40 ; Impotence N52.9 ; Coronary atherosclerosis due to lipid rich plaque I25.83 ; 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 ; Interstitial lung disease J84.9 ; Hypoxia R09.02 ; Essential hypertension I10 and Gastroesophageal reflux disease without esophagitis K21.9 [facility] [id number] [place] [address] 48466 -0519 Sep, Bronchitis J40 [facility] [address] 72832 -6934 Aug, Gastroenteritis and colitis, viral A08.4 [facility] [address] 44117- 6075 Aug, [place] [address] 87144- 1387 Jun, Type 2 diabetes 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 E11.8 ; Diabetic neuropathy, painful E11.40 ; Impotence N52.9 ; Coronary atherosclerosis due to lipid rich plaque I25.83 ; 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 ; Interstitial lung disease J84.9 ; Hypoxia R09.02 and Essential hypertension I10 [place] [address] 81647- 8145 30 May, 2016 Bronchitis J40 [facility] [address] 06217- 2229 29 May, 2016 [place] [address] 51384- 3946 May, Pain of right upper extremity M79.601 [facility] [id number] [place] [address] 48780- 1130 May, [place] [address] 37211- 2840 15 May, 2016 [place] [address] 27657- 2698 07 May, 2016 Right hand pain M79.641 [place] [address] 59689- 4689 Apr, [place] [address] [place] [address] 71241- 1228 Apr, [place] [id number] [place] [address] 88717- 4150 Mar, [place] [place] [id number] [place] [address] 01255- 0677 Mar, Essential hypertension I10 [place] [address] 52137- 2815 Feb, [facility] [id number] [place] [address] 83887- 7646 Feb, Interstitial lung disease J84.9 and Bronchitis J40 [facility] [place] [id number] [place] [address] 82940- 1920 Feb, [place] [place] [id number] [place] [address] 49317- 7198 Feb, Type 2 diabetes 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 E11.8 ; Impotence N52.9 ; Coronary atherosclerosis due to lipid rich plaque I25.83 ; 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 and Diabetic neuropathy, painful E11.40 [place] [address] [place] [address] 96639- 9300 January, [place] [place] [id number] [place] [address] 54224- 4547 January, Arm paresthesia, right R20.2 and Pain of right upper extremity M79.601 [place] [address] [place] [address] 56987- 3365 Dec, Lumbar strain S39.012A [place] [id number] [place] [address] 40016- 1493 Nov, Diabetic neuropathy, painful E11.40 ; Respiratory bronchiolitis interstitial lung disease J84.115 ; Pain of right upper extremity M79.601 and Arm paresthesia, right R20.2 [place] [id number] [place] [address] 69224- 7123 Nov, Diabetic neuropathy, painful E11.40 [place] [address] 59996- 2292 Sep, Type 2 diabetes 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 E11.8 ; Impotence N52.9 ; Coronary atherosclerosis due to lipid rich plaque I25.83 ; 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 ; Diabetic neuropathy, painful E11.40 ; Chest pain R07.9 and Restless leg G25.81 [place] [address] 95255- 1636 Sep, [place] [address] 85018- 1109 Jul, COPD (chronic obstructive pulmonary disease) with acute bronchitis J44.0 [place] [address] 04875- 9638 Jun, Abdominal pain R10.9 ; Family history of colon cancer Z80.0 and Diverticulitis K57.92 [place] [id number] [place] [address] 57710- 7549 Jun, Abdominal pain R10.9 and Diverticulitis K57.92 [place] [id number] [place] [address] 89031- 0906 Apr, Diabetes with other specified manifestations, type II or unspecified type, not stated as uncontrolled 250.80 ; Coronary atherosclerosis of unspecified type of vessel, minto or graft 414.00 ; Unspecified essential hypertension 401.9 ; Impotence of organic origin 607.84 ; Sleep apnea 780.57 and Interstitial lung disease [address] [place] [id number] [place] [address] 22474- 7191 Dec, [place] [address] 74544- 1409 Dec, [place] [id number] [place] [address] 44122- 7587 Nov, [facility] [place] [facility] [address] [id number] [place] [address]- 7305 Nov, [facility] [place] [facility] [address] [id number] [place] [address]- 5941 Nov, [facility] [place] [facility] [address] [id number] [place] [address]- 4189 Nov, [facility] [place] [facility] [address] [id number] [place] [address]- 2422 Nov, [facility] [place] [facility] [address] [id number] [place] [address]- 2287 Nov, [facility] [place] [facility] [address] [id number] [place] [address]- 3723 Nov, [facility] [place] [facility] [address] [facility] [id number] [place] [address]- 1385 Nov, [facility] [place] [facility] [address] [id number] [place] [address]- 9007 Nov, [facility] [place] [facility] [address] [id number] [place] [address]- 7495 Nov, [facility] [place] [facility] [address] [id number] [place] [address]- 7139 Oct, 2014 [facility] [place] [facility] [address] [facility] [id number] [place] [address]- 4571 Oct, 2014 [facility] [place] [facility] [address] [id number] [address]- 4610 Oct, 2014 [facility] [place] [facility] [address] [id number] [place] [address]- 2880 Oct, 2014 [facility] [place] [facility] [address] [id number] [place] [address]- 1533 Oct, 2014 [facility] [place] [facility] [address] [facility] [id number] [place] [address]- 2973 Oct, 2014 [facility] [place] [facility] [address] [id number] [address]- 9082 04 Oct, 2014 [facility] [place] [facility] [address] [id number] [place] [address]- 9424 04 Oct, 2014 [facility] [place] [facility] [address] [id number] [place] [address]- 3012 Oct, 2014 [facility] [place] [facility] [address] [id number] [place] [address]- 9084 Oct, 2014 [facility] [place] [facility] [address] [id number] [place] [address]- 5493 Oct, 2014 [facility] [place] [facility] [address] [id number] [place] [address]- 7934 Jul, [facility] [place] [facility] [address] [id number] [place] [address]- 8012 Jul, [facility] [place] [facility] [address] [facility] [id number] [place] [address]- 1272 29 Jun, 2014 [facility] [place] [facility] [address] [id number] [place] [address]- 6375 29 Jun, 2014 [facility] [place] [facility] [address] [id number] [place] [address]- 1244 17 Jun, 2014 [facility] [place] [facility] [address] [facility] [id number] [place] [address]- 0541 17 Jun, 2014 [facility] [place] [facility] [address] [id number] [place] [address]- 0504 15 Jun, 2014 [facility] [place] [facility] [address] [id number] [place] [address]- 2978 15 Jun, 2014 [facility] [place] [facility] [address] [id number] [place] [address]- 9512 14 Jun, 2014 [facility] [place] [facility] [address] [id number] [place] [address]- 2829 14 Jun, 2014 [facility] [place] [facility] [address] [id number] [place] [address]- 2553 13 Jun, 2014 [facility] [place] [facility] [address] [id number] [place] [address]- 7720 Jun, [facility] [place] [facility] [address] [id number] [place] [address]- 7563 Jun, [facility] [place] [facility] [address] [id number] [place] [address]- 7579 Jun, [facility] [place] [facility] [address] [id number] [place] [address]- 3019 Jun, [facility] [place] [facility] [address] [id number] [place] [address]- 2725 Jun, [facility] [place] [facility] [address] [id number] [place] [address]- 0642 30 May, 2014 [facility] [place] [facility] [address] [id number] [place] [address]- 7792 30 May, 2014 [facility] [place] [facility] [address] [id number] [place] [address]- 3753 May, [facility] [place] [facility] [address] [id number] [place] [address]- 9300 May, [facility] [place] [facility] [address] [id number] [place] [address]- 3494 05 May, 2014 [facility] [place] [facility] [address] [id number] [place] [address]- 3190 May, [facility] [place] [facility] [address] [id number] [place] [address]- 9560 Apr, [facility] [place] [facility] [address] [id number] [place] [address]- 2921 Apr, [facility] [place] [facility] [address] [id number] [place] [address]- 7497 Apr, [facility] [place] [facility] [address] [id number] [place] [address]- 4380 Apr, [facility] [place] [facility] [address] [id number] [place] [address]- 5398 Apr, [facility] [place] [facility] [address] [id number] [place] [address]- 0476 Apr, [facility] [place] [facility] [address] [id number] [place] [address]- 6313 Apr, [facility] [place] [facility] [address] [id number] [place] [address]- 0451 Apr, [facility] [place] [facility] [address] [id number] [place] [address]- 9977 Apr, [facility] [place] [facility] [address] [id number] [place] [address]- 7429 Apr, [facility] [place] [facility] [address] [id number] [place] [address]- 4411 Apr, [facility] [place] [facility] [address] [id number] [place] [address]- 2869 Apr, [facility] [place] [facility] [address] [id number] [place] [address]- 1818 Mar, [facility] [place] [facility] [address] [id number] [place] [address]- 0556 Mar, [facility] [place] [facility] [address] [id number] [place] [address]- 0589 Mar, [facility] [place] [facility] [address] [id number] [place] [address]- 3931 Mar, [facility] [place] [facility] [address] [id number] [place] [address]- 9655 Mar, [facility] [place] [facility] [address] [id number] [place] [address]- 4749 Mar, [facility] [place] [facility] [address] [id number] [place] [address]- 3713 Mar, [facility] [place] [facility] [address] [id number] [place] [address]- 7864 Mar, [facility] [place] [facility] [address] [id number] [place] [address]- 1187 Mar, [facility] [place] [facility] [address] [id number] [place] [address]- 6282 Mar, [facility] [place] [facility] [address] [id number] [place] [address]- 8155 Mar, [facility] [place] [facility] [address] [id number] [place] [address]- 0914 Feb, [facility] [place] [facility] [address] [id number] [place] [address]- 2785 Feb, [facility] [place] [facility] [address] [id number] [place] [address]- 0720 Feb, [facility] [place] [facility] [address] [id number] [place] [address]- 3693 Feb, [facility] [place] [facility] [address] [id number] [place] [address]- 1367 Feb, [facility] [place] [facility] [address] [id number] [place] [address]- 5844 Feb, [facility] [place] [facility] [address] [id number] [place] [address]- 1041 Feb, [facility] [place] [facility] [address] [id number] [place] [address]- 6613 Feb, [facility] [place] [facility] [address] [id number] [place] [address]- 0269 Feb, [facility] [place] [facility] [address] [id number] [place] [address]- 4013 Feb, [facility] [place] [facility] [address] [id number] [place] [address]- 9671 January, [facility] [place] [facility] [address] [id number] [place] [address]- 7753 January, [facility] [place] [facility] [address] [id number] [place] [address]- 9968 January, [facility] [address] [id number] [place] [address]- 9792 January, [facility] [place] [facility] [address] [id number] [place] [address]- 4830 January, [facility] [place] [facility] [address] [id number] [place] [address]- 3762 January, [facility] [place] [facility] [address] [id number] [place] [address]- 1292 January, [facility] [place] [facility] [address] [id number] [place] [address]- 2938 January, [facility] [place] [facility] [address] [id number] [place] [address]- 5631 January, [facility] [place] [facility] [address] [id number] [place] [address]- 8662 January, [facility] [place] [facility] [address] [id number] [place] [address]- 4361 January, [facility] [place] [facility] [address] [id number] [place] [address]- 4833 January, [facility] [place] [facility] [address] [id number] [place] [address]- 6355 January, [facility] [place] [facility] [address] [id number] [place] [address]- 1357 January, [facility] [place] [facility] [address] [id number] [place] [address]- 9328 January, [facility] [place] [facility] [address] [id number] [place] [address]- 5487 January, [facility] [place] [facility] [address] [id number] [place] [address]- 7698 Dec, [facility] [place] [facility] [address] [id number] [place] [address]- 3059 Dec, [facility] [place] [facility] [address] [id number] [place] [address]- 8707 Dec, [facility] [place] [facility] [address] [id number] [place] [address]- 8691 Dec, [facility] [place] [facility] [address] [id number] [place] [address]- 5985 Dec, [facility] [place] [facility] [address] [id number] [place] [address]- 2299 Dec, [facility] [place] [facility] [address] [id number] [place] [address]- 5253 Dec, [facility] [place] [facility] [address] [id number] [place] [address]- 1181 Dec, [facility] [place] [facility] [address] [id number] [place] [address]- 3713 Dec, [facility] [place] [facility] [address] [id number] [place] [address]- 7574 Dec, [facility] [place] [facility] [address] [id number] [place] [address]- 1592 Nov, [facility] [place] [facility] [address] [id number] [place] [address]- 8383 Nov, [facility] [place] [facility] [address] [id number] [place] [address]- 7485 Oct, [facility] [place] [facility] [address] [id number] [place] [address]- 5013 Oct, [facility] [place] [facility] [address] [id number] [place] [address]- 5965 Oct, [facility] [place] [facility] [address] [id number] [place] [address]- 3559 Sep, [facility] [place] [facility] [address] [id number] [place] [address] Sep, [facility] [place] [facility] [address] [id number], [place] [address] Sep, [facility] [place] [facility] [address] [id number] [place] [address] Sep, [facility] [place] [facility] [address] [id number] [place] [address] Sep, [facility] [place] [facility] [address] [id number] [place] [address] Sep, [facility] [place] [facility] [address] [id number] [place] [address] Sep, [facility] [place] [facility] [address] [id number] [place] [address] Sep, [facility] [place] [facility] [address] [id number] [place] [address] Sep, [facility] [place] [facility] [address] [id number] [place] [address] Sep, [facility] [address] [id number] [place] [address] Sep, [facility] [place] [facility] [address] [id number] [place] [address] Sep, [facility] [place] [facility] [address] [id number] [place] [address] Aug, [facility] [place] [facility] [address] [id number] [place] [address] Aug, [facility] [place] [facility] [address] [id number] [place] [address] Aug, [facility] [place] [facility] [address] [id number] [place] [address] Aug, [facility] [place] [facility] [address] [id number] [place] [address] Jul, [facility] [place] [facility] [address] [id number] [place] [address] Jul, [facility] [place] [facility] [address] [id number], [place] [address] Jun, [facility] [place] [facility] [address] [id number] [place] [address] Jun, [facility] [place] [facility] [address] [id number] [place] [address] Jun, [facility] [place] [facility] [address] [id number] [place] [address] Jun, [facility] [place] [facility] [address] [id number], [place] [address] Jun, [facility] [place] [facility] [address] [id number] [place] [address] Jun, [facility] [place] [facility] [address] [id number] [place] [address] Jun, [facility] [place] [facility] [address] [id number] [place] [address] Jun, [facility] [place] [facility] [address] [id number], [place] [address] 24 May, 2013 [facility] [place] [facility] [address] [id number] [place] [address] 23 May, 2013 [facility] [place] [facility] [address] [id number] [place] [address] 18 May, 2013 [facility] [place] [facility] [address] [id number], [place] [address] 13 May, 2012 [facility] [place] [facility] [address] [id number], [place] [address] 11 May, 2013 [facility] [place] [facility] [address] [id number] [place] [address] 06 May, 2013 [facility] [place] [facility] [address] [id number], [place] [address] 03 May, 2013 [facility] [place] [facility] [address] [id number] [place] [address] 30 Apr, 2013 [facility] [place] [facility] [address] [id number] [place] [address] Apr, [facility] [address] [id number] [place] [address] Apr, [facility] [place] [facility] [address] [id number] [place] [address] Apr, [facility] [address] [id number] [place] [address] Apr, [facility] [place] [facility] [address] [id number] [place] [address] Apr, [facility] [address] [id number] [place] [address] Apr, [facility] [address] [id number] [place] [address] Mar, [facility] [address] [id number] [place] [address] Mar, [facility] [address] [id number] [place] [address]- [address] Mar, [facility] [place] [facility] [address] [id number] [place] [address] Mar, [facility] [address] [id number] [place] [address] Mar, [facility] [place] [facility] [address] [id number] [place] [address] Mar, [facility] [place] [facility] [address] [id number] [place] [address] Mar, [facility] [place] [facility] [address] [id number] [place] [address] Mar, [facility] [place] [facility] [address] [id number] [place] [address] Feb, [facility] [place] [facility] [address] [id number] [place] [address] Feb, [facility] [address] [id number] [place] [address] Feb, [facility] [address] [id number] [place] [address] January, [facility] [address] [id number] [place] [address] January, [facility] [address] [id number] [place] [address] January, [facility] [address] [id number] [place] [address] January, [facility] [address] [id number] [place] [address] January, [facility] [address] [id number] [place] [address] January, [facility] [address] [id number] [place] [address] January, [facility] [address] [id number] [place] [address] January, [facility] [address] [id number] [place] [address] Dec, [facility] [address] [id number] [place] [address] Dec, [facility] [place] [facility] [address] [id number] [address] Dec, [facility] [place] [facility] [address] [id number] [place] [address] 9773 Dec, [facility] [place] [facility] [address] [id number] [place] [address] Dec, [facility] [place] [facility] [address] [id number] [place] [address] Nov, [facility] [place] [facility] [address] [id number], [place] [address] 21 Nov, 2012 [facility] [address] [id number] [place] [address]- 8468 19 Nov, 2012 [facility] [place] [facility] [address] [id number] [place] [address] 4[address] 18 Nov, 2012 [facility] [place] [facility] [address] [facility] [id number] [place] [address] 8989 18 Nov, 2012 [facility] [place] [facility] [address] [id number] [place] [address]- [address] 14 Nov, 2012 [facility] [place] [facility] [address] [id number] [place] [address] 84[address] 11 Nov, 2012 [facility] [place] [facility] [address] [facility] [id number] [place] [address]- 6727 11 Nov, 2012 [facility] [address] [id number] [place] [address]68 21 Oct, 2012 [facility] [place] [facility] [address] [facility] [id number] [place] [address] 53[address] Oct, [facility] [place] [facility] [address] [facility] [id number] [place] [address]- 4694 12 Oct, 2012 [facility] [place] [facility] [address] [facility] [id number] [place] [address] 48[address] 08 Oct, 2012 [facility] [place] [facility] [address] [id number] [place] [address] 07 Oct, 2012 [facility] [place] [facility] [address] [facility] [id number], [place] [address] 07 Oct, 2012 [facility] [place] [facility] [address] [facility] [id number] [place] [address] 0105 05 Oct, 2012 [facility] [place] [facility] [address] [facility] [id number][place] [address] 04 Oct, 2012 [facility] [place] [facility] [address] [id number] [address] Oct, [facility] [address] [id number] [place] [address] 0163 Sep, [facility] [place] [facility] [address] [id number] [place] [address] 4306 Sep, [facility] [place] [facility] [address] [id number] [place] [address] Sep, [facility] [place] [facility] [address] [id number] [place] [address] 9206 Sep, [facility] [address] [id number] [place] [address] 7948 Sep, [facility] [place] [facility] [address] [id number] [place] [address] 3236 Sep, [facility] [place] [facility] [address] [id number] [place] [address]- 6174 Aug, [facility] [place] [facility] [address] [id number] [place] [address] 4018 Aug, [facility] [place] [facility] [address] [id number] [place] [address]- 4846 Aug, [facility] [place] [facility] [address] [id number] [place] [address]- 6121 Aug, [facility] [place] [facility] [address] [id number], [place] [address] 7396 Aug, [facility] [place] [facility] [address] [id number], [place] [address] 18 Aug, 2012 [facility] [place] [facility] [address] [id number] [place] [address]- 6907 13 Aug, 2012 [facility] [place] [facility] [address] [id number] [place] [address] 4486 Aug, [facility] [place] [facility] [address] [id number], [place] [address] 0[address] Aug, [facility] [place] [facility] [address] [id number], [place] [address]33 Jul, [facility] [id number] [address] Jul, [facility] [id number] [place] [address] Jul, [facility] [id number] [place] [address]- 2349 Jul, [facility] [id number] [place] [address]- 1947 Nov, [facility] [id number] [place] [address] 6[address]800- 5085 Sep, [facility] [id number] [place] [address]- 6531 Aug, [facility] [id number] [place] [address]- 7533 Aug, [facility] [id number] [place] [address]- 9180 Aug, [facility] [id number] [place] [address]- 3663 Jul, IMMUNIZATIONS No Known Immunizations SOCIAL HISTORY Never Assessed REASON FOR VISIT [facility], pneumonia----DBennettRN, feels lyrica is not working as effectively, persistant cough, would like cough supressant PLAN OF CARE Activity Details Follow Up nurse visit 1-2 weeks bp DM 3 mo Reason: VITAL SIGNS Height 74 in 2017-08-20 Weight 239 lbs 2017-08-20 Temperature 98.4 degrees Fahrenheit 2017-08-20 Heart Rate 90 bpm 2017-08-20 Respiratory Rate 20 2017-08-20 BMI 30.68 kg/m2 2017-08-20 Blood pressure systolic 112 mmHg 2017-08-20 Blood pressure diastolic 70 mmHg 2017-08-20 MEDICATIONS Medication Instructions Dosage Frequency Start Date End Date Duration Status Spiriva HandiHaler 18 MCG Inhalation Once a day 1 capsule (2 puffs) 24h Active ProAir HFA 108 (90 Base) MCG/ACT Inhalation every 4 hrs 2 puffs as needed 4h Active PredniSONE 20 MG Orally Once a day 1 tablet 24h Active NovoLog 100 UNIT/ML sq tid inject 15 Units by Subcutaneous route 3 times per day before meals 8h Active Lyrica 150 MG Orally 3 times a day 1 capsule 8h Active Bactrim DS 800-160 MG Orally once daily on MWF 1 tablet Active Symbicort 160-4.5 MCG/ACT Inhalation Twice a day 2 puffs 12h Active ibuprofen 1 tab Active Chantix 1 MG Orally Twice a day 1 tablet 12h 24 Jun, 2017 30 days Not- Taking Pantoprazole Sodium 40 mg Orally Once a day 1 tablet 24h 30 Active Losartan Potassium 25 MG Orally Once a day 1 tablet 24h Aug, 30 day(s) Active Aspirin Adult Low Strength 81 MG Orally Once a day 1 tablet 24h Not-Taking Glimepiride 1 MG Orally Once a day 1 tablet with breakfast or the first main meal of the day 24h Jun, Active Zofran ODT 4 MG Orally every 8 hrs 1 tablet on the tongue and allow to dissolve 8h Active Metoprolol Tartrate 50 mg Orally Twice a day 1/2 tablet 12h Active Levemir 100 UNIT/ML sq bid 35 units 12h Active Naproxen 500 MG Orally every 12 hrs 1 tablet as needed 12h Not- Taking Promethazine HCl 25 MG Orally 4 times a day 1 tablet as needed 6h January, Active Oxygen 3 L/NC 24h Active Promethazine-Codeine 6.25-10 MG/5ML Orally daily prn 5 ml as needed Jun, Active RESULTS No Results PROCEDURES Procedure Date Ordered Result Body Site [facility] VISIT ESTABLISHED PATIENT Aug 20, 2017 INSTRUCTIONS MEDICATIONS ADMINISTERED No Known Medications [...] Cuff Repair Zafuda 06/2016 Surgical History Colonoscopy Elijah (1 Polyp) repeat 5 years 2019 2014 Surgical History right rotator cuff surgery 06/27/2016 Hospitalization History Overdosed on Clonazepam #35. [place] 03/2014 Hospitalization History Overdosed on Xanax 07/2012 Hospitalization History Hypostension-medication side effect-[facility] 03/13/16
--- OUTSIDE RECORDS SUMMARY | 2018-07-23 06:40 | XMS REPORT ---
Author Author TATYANA CHAPPELL [facility] Address [address] [place] [address] Care Team Providers Care Computational Linguist Name Role Phone TATYANA CHAPPELL Unavailable PROBLEMS Type Condition ICD9-CM Code WAO61-NV Code Onset Dates Condition Status SNOMED Code Problem Family history of colon cancer Z80.0 Active 563529850 Problem Arm paresthesia, right R20.2 Active 27462372 Problem Diabetic neuropathy, painful E11.40 Active 738194535 Problem COPD exacerbation J44.1 Active 110609343 Problem Diverticulitis K57.92 Active 028982426 Problem Gastroesophageal reflux disease without esophagitis K21.9 Active 824895358 Problem Respiratory bronchiolitis interstitial lung disease J84.115 Active 075468452 Problem Pain of right upper extremity M79.601 Active 530401880 Problem Interstitial lung disease J84.9 Active 293334345 Problem Hypoxia R09.02 Active 868569026 Problem Abdominal pain R10.9 Active 92410378 Problem alf 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.4 Active 568504817 Problem Essential hypertension I10 Active 83340401 Problem Neuropathy G62.9 Active 406552758 Problem Impotence N52.9 Active 593732043 Problem Type 2 diabetes 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 E11.8 Active 23478890 Problem Coronary atherosclerosis due to lipid rich plaque I25.83 Active 26317899 Problem Obstructive sleep apnea syndrome G47.33 Active 85569603 Problem Change in bowel habit R19.4 Active 60503590 Problem Drug abuse, opioid type F11.10 Active 5468859 ALLERGIES Substance Reaction Event Type Date Status Staxyn Decreased blood pressure Drug Allergy Jun, Active Tramadol HCl hx of overdose Drug Allergy Jun, Active Hydrocodone-Acetaminophen hx of overdose Drug Allergy Jun, Active Clonazepam hx of overdose Drug Allergy Jun, Active ENCOUNTERS Encounter Location Date Diagnosis [facility] [id number] [place] [address] 40671- 9520 Aug, [facility] [id number] [place] [address] 79186- 3961 Aug, Diabetic neuropathy, painful E11.40 ; Interstitial lung disease J84.9 ; Chronic cough R05 ; Type 2 diabetes 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 E11.8 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 [facility] [id number] [place] [address] 01354- 2171 Jul, [facility] [id number] [place] [address] 04557- 8312 Jul, [facility] [address] 29007- 3058 Jul, Diabetic neuropathy, painful E11.40 [facility] [id number] [place] [address] 03076- 5349 Jul, Type 2 diabetes 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 E11.8 [facility] [id number] [place] [address] 26514- 5873 Jun, Diabetic neuropathy, painful E11.40 [facility] [id number] [place] [address] 26041- 6476 Jun, [facility] [id number] [place] [address] 25913 -4699 Jun, Type 2 diabetes 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 E11.8 ; Other viral agents as the cause of diseases classified elsewhere B97.89 ; Acute upper respiratory infection, unspecified J06.9 ; Acute recurrent maxillary sinusitis J01.01 ; Sore throat J02.9 and Headache R51 [facility] [id number] [place] [address] 01287- 3911 04 Jun, 2017 Right lower quadrant abdominal pain R10.31 and Type 2 diabetes 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 E11.8 [facility] [id number] [place] [address] 76197- 7203 May, Diabetic neuropathy, painful E11.40 [facility] [address] [place] [address]- 7334 May, COPD exacerbation J44.1 and Type 2 diabetes 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 E11.8 [place] [address] 40440- 9763 Apr, Diabetic neuropathy, painful E11.40 [place] [facility] [address] 14936- 5675 Apr, Diabetic neuropathy, painful E11.40 [facility] [address] 65537 -0338 Mar, Bronchitis J40 [place] [address] 37788- 8238 January, Type 2 diabetes 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 E11.8 ; Diabetic neuropathy, painful E11.40 ; Impotence N52.9 ; Coronary atherosclerosis due to lipid rich plaque I25.83 ; alf 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.4 ; Interstitial lung disease J84.9 ; Hypoxia R09.02 ; Essential hypertension I10 ; Gastroesophageal reflux disease without esophagitis K21.9 ; Left upper arm pain M79.622 and Cervical spinal stenosis M48.02 [facility] [address] 84179 -0387 January, Viral gastroenteritis A08.4 [place] [id number] [place] [address] 99572- 9052 Dec, Diabetic neuropathy, painful E11.40 [facility] [id number] [place] [address] [id number] Oct, [place] [address] 98398- 5257 Oct, Acute right-sided weakness M62.89 and Slurring of speech R47.81 [facility] [id number] [place] [address] 17973- 8096 Sep, Type 2 diabetes 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 E11.8 ; Diabetic neuropathy, painful E11.40 ; Impotence N52.9 ; Coronary atherosclerosis due to lipid rich plaque I25.83 ; 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 ; Interstitial lung disease J84.9 ; Hypoxia R09.02 ; Essential hypertension I10 and Gastroesophageal reflux disease without esophagitis K21.9 [facility] [id number] [place] [address] 03500 -6256 Sep, Bronchitis J40 [facility] [address] 17399 -0606 Aug, Gastroenteritis and colitis, viral A08.4 [facility] [address] 94110- 1766 Aug, [place] [address] 18262- 6727 Jun, Type 2 diabetes 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 E11.8 ; Diabetic neuropathy, painful E11.40 ; Impotence N52.9 ; Coronary atherosclerosis due to lipid rich plaque I25.83 ; 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 ; Interstitial lung disease J84.9 ; Hypoxia R09.02 and Essential hypertension I10 [place] [address] 34857- 5660 30 May, 2016 Bronchitis J40 [facility] [address] 58560- 4168 29 May, 2016 [place] [address] 29498- 1035 May, Pain of right upper extremity M79.601 [place] [id number] [place] [address] 17309- 7740 May, [place] [address] 14418- 1115 15 May, 2016 [place] [address] 76378- 1767 07 May, 2016 Right hand pain M79.641 [place] [address] 74479- 4099 Apr, [place] [id number] [place] [address] 17373- 4098 Apr, [place] [id number] [place] [address] 56670- 0712 Mar, [place] [id number] [place] [address] 43744- 1674 Mar, Essential hypertension I10 [place] [address] 65365- 9093 Feb, [place] [id number] [place] [address] 74288- 0716 Feb, Interstitial lung disease J84.9 and Bronchitis J40 [facility] [id number] [place] [address] 33698- 2109 Feb, [place] [id number] [place] [address] 49944- 9488 Feb, Type 2 diabetes 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 E11.8 ; Impotence N52.9 ; Coronary atherosclerosis due to lipid rich plaque I25.83 ; 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 and Diabetic neuropathy, painful E11.40 [place] [id number] [place] [address] 59698- 9307 January, [place] [id number] [place] [address] 24656- 3541 January, Arm paresthesia, right R20.2 and Pain of right upper extremity M79.601 [place] [id number] [place] [address] 95282- 9127 Dec, Lumbar strain S39.012A [place] [facility] [id number] [place] [address] 99830- 2965 Nov, Diabetic neuropathy, painful E11.40 ; Respiratory bronchiolitis interstitial lung disease J84.115 ; Pain of right upper extremity M79.601 and Arm paresthesia, right R20.2 [place] [id number] [place] [address] 38538- 9452 Nov, Diabetic neuropathy, painful E11.40 [place] [address] 49812- 1086 Sep, Type 2 diabetes 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 E11.8 ; Impotence N52.9 ; Coronary atherosclerosis due to lipid rich plaque I25.83 ; 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 ; Diabetic neuropathy, painful E11.40 ; Chest pain R07.9 and Restless leg G25.81 [place] [address] 97430- 5704 Sep, [place] [address] 10982- 0763 Jul, COPD (chronic obstructive pulmonary disease) with acute bronchitis J44.0 [place] [address] 58081- 9018 Jun, Abdominal pain R10.9 ; Family history of colon cancer Z80.0 and Diverticulitis K57.92 [place] [id number] [place] [address] 05519- 9008 Jun, Abdominal pain R10.9 and Diverticulitis K57.92 [place] [id number] [place] [address] 95266- 5902 Apr, Diabetes with other specified manifestations, type II or unspecified type, not stated as uncontrolled 250.80 ; Coronary atherosclerosis of unspecified type of vessel, [place] [employer] or graft 414.00 ; Unspecified essential hypertension 401.9 ; Impotence of organic origin 607.84 ; Sleep apnea 780.57 and Interstitial lung disease [address] [place] [id number] [place] [address] 77642- 6167 Dec, [place] [address] 78228- 9212 Dec, [place] [id number] [place] [address] 43639- 7546 Nov, [facility] [place] [facility] [address] [id number] [place] [address]- 3242 Nov, [facility] [place] [facility] [address] [id number] [place] [address]- 6189 Nov, [facility] [place] [facility] [address] [id number] [place] [address]- 1125 Nov, [facility] [place] [facility] [address] [id number] [place] [address]- 2787 Nov, [facility] [place] [facility] [address] [id number] [place] [address]- 3803 Nov, [facility] [place] [facility] [address] [id number] [place] [address]- 6727 Nov, [facility] [place] [facility] [address] [facility] [id number] [place] [address]- 5984 Nov, [facility] [place] [facility] [address] [id number] [place] [address]- 5671 Nov, [facility] [place] [facility] [address] [id number] [place] [address]- 5931 Nov, [facility] [place] [facility] [address] [id number] [place] [address]- 1979 Oct, 2014 [facility] [place] [facility] [address] [facility] [id number] [place] [address]- 3779 Oct, 2014 [facility] [place] [facility] [address] [id number] [address]- 0484 Oct, 2014 [facility] [place] [facility] [address] [id number] [place] [address]- 0488 Oct, 2014 [facility] [place] [facility] [address] [id number] [place] [address]- 3133 Oct, 2014 [facility] [place] [facility] [address] [facility] [id number] [place] [address]- 4320 Oct, 2014 [facility] [place] [facility] [address] [id number], [place] [address]- 1023 04 Oct, 2014 [facility] [place] [facility] [address] [id number] [place] [address]- 4685 04 Oct, 2014 [facility] [place] [facility] [address] [id number] [place] [address]- 6742 Oct, 2014 [facility] [place] [facility] [address] [id number] [place] [address]- 7778 Oct, 2014 [facility] [place] [facility] [address] [id number] [place] [address]- 9814 Oct, 2014 [facility] [place] [facility] [address] [id number] [place] [address]- 8105 Jul, [facility] [place] [facility] [address] [id number] [place] [address]- 4745 Jul, [facility] [place] [facility] [address] [facility] [id number] [place] [address]- 6444 29 Jun, 2014 [facility] [place] [facility] [address] [id number] [place] [address]- 2182 29 Jun, 2014 [facility] [place] [facility] [address] [id number] [place] [address]- 4253 17 Jun, 2014 [facility] [place] [facility] [address] [facility] [id number] [place] [address]- 1705 17 Jun, 2014 [facility] [place] [facility] [address] [id number] [place] [address]- 5077 15 Jun, 2014 [facility] [place] [facility] [address] [id number] [place] [address]- 5484 15 Jun, 2014 [facility] [place] [facility] [address] [id number] [place] [address]- 4968 14 Jun, 2014 [facility] [place] [facility] [address] [id number] [place] [address]- 6476 14 Jun, 2014 [facility] [place] [facility] [address] [id number] [place] [address]- 7508 13 Jun, 2014 [facility] [place] [facility] [address] [id number] [place] [address]- 4026 Jun, [facility] [place] [facility] [address] [id number] [place] [address]- 3004 Jun, [facility] [place] [facility] [address] [id number] [place] [address]- 8444 Jun, [facility] [place] [facility] [address] [id number] [place] [address]- 6343 Jun, [facility] [place] [facility] [address] [id number] [place] [address]- 3795 Jun, [facility] [place] [facility] [address] [id number] [place] [address]- 5949 30 May, 2014 [facility] [place] [facility] [address] [id number] [place] [address]- 7579 30 May, 2014 [facility] [place] [facility] [address] [id number] [place] [address]- 9621 May, [facility] [place] [facility] [address] [id number] [place] [address]- 9156 May, [facility] [place] [facility] [address] [id number] [place] [address]- 7501 05 May, 2014 [facility] [place] [facility] [address] [id number] [place] [address]- 3312 May, [facility] [place] [facility] [address] [id number] [place] [address]- 6122 Apr, [facility] [place] [facility] [address] [id number] [place] [address]- 3521 Apr, [facility] [place] [facility] [address] [id number] [place] [address]- 2097 Apr, [facility] [place] [facility] [address] [id number] [place] [address]- 3834 Apr, [facility] [place] [facility] [address] [id number] [place] [address]- 7147 Apr, [facility] [place] [facility] [address] [id number] [place] [address]- 3893 Apr, [facility] [place] [facility] [address] [id number] [place] [address]- 8189 Apr, [facility] [place] [facility] [address] [id number] [place] [address]- 6620 Apr, [facility] [place] [facility] [address] [id number] [place] [address]- 8441 Apr, [facility] [place] [facility] [address] [id number] [place] [address]- 1395 Apr, [facility] [place] [facility] [address] [id number] [place] [address]- 1434 Apr, [facility] [place] [facility] [address] [id number] [place] [address]- 0690 Apr, [facility] [place] [facility] [address] [id number] [place] [address]- 1256 Mar, [facility] [place] [facility] [address] [id number] [place] [address]- 9344 Mar, [facility] [place] [facility] [address] [id number] [place] [address]- 0696 Mar, [facility] [place] [facility] [address] [id number] [place] [address]- 2170 Mar, [facility] [place] [facility] [address] [id number] [place] [address]- 3428 Mar, [facility] [place] [facility] [address] [id number] [place] [address]- 7684 Mar, [facility] [place] [facility] [address] [id number] [place] [address]- 4421 Mar, [facility] [place] [facility] [address] [id number] [place] [address]- 2217 Mar, [facility] [place] [facility] [address] [id number] [place] [address]- 7821 Mar, [facility] [place] [facility] [address] [id number] [place] [address]- 3503 Mar, [facility] [place] [facility] [address] [id number] [place] [address]- 1938 Mar, [facility] [place] [facility] [address] [id number] [place] [address]- 3037 Feb, [facility] [place] [facility] [address] [id number] [place] [address]- 0635 Feb, [facility] [place] [facility] [address] [id number] [place] [address]- 0831 Feb, [facility] [place] [facility] [address] [id number] [place] [address]- 5923 Feb, [facility] [place] [facility] [address] [id number] [place] [address]- 0484 Feb, [facility] [place] [facility] [address] [id number] [place] [address]- 7510 Feb, [facility] [place] [facility] [address] [id number] [place] [address]- 7021 Feb, [facility] [place] [facility] [address] [id number] [place] [address]- 0263 Feb, [facility] [place] [facility] [address] [id number] [place] [address]- 6754 Feb, [facility] [place] [facility] [address] [id number] [place] [address]- 3629 Feb, [facility] [place] [facility] [address] [id number] [place] [address]- 9158 January, [facility] [place] [facility] [address] [id number] [place] [address]- 6508 January, [facility] [place] [facility] [address] [id number] [place] [address]- 8280 January, [facility] [address] [id number] [place] [address]- 4920 January, [facility] [place] [facility] [address] [id number] [place] [address]- 8250 January, [facility] [place] [facility] [address] [id number] [place] [address]- 5217 January, [facility] [place] [facility] [address] [id number] [place] [address]- 3719 January, [facility] [place] [facility] [address] [id number] [place] [address]- 9501 January, [facility] [place] [facility] [address] [id number] [place] [address]- 7389 January, [facility] [place] [facility] [address] [id number] [place] [address]- 5600 January, [facility] [place] [facility] [address] [id number] [place] [address]- 6355 January, [facility] [place] [facility] [address] [id number] [place] [address]- 6993 January, [facility] [place] [facility] [address] [id number] [place] [address]- 4814 January, [facility] [place] [facility] [address] [id number] [place] [address]- 0256 January, [facility] [place] [facility] [address] [id number] [place] [address]- 2402 January, [facility] [place] [facility] [address] [id number] [place] [address]- 2892 January, [facility] [place] [facility] [address] [id number] [place] [address]- 7353 Dec, [facility] [place] [facility] [address] [id number] [place] [address]- 4986 Dec, [facility] [place] [facility] [address] [id number] [place] [address]- 2778 Dec, [facility] [place] [facility] [address] [id number] [place] [address]- 6334 Dec, [facility] [place] [facility] [address] [id number] [place] [address]- 9732 Dec, [facility] [place] [facility] [address] [id number] [place] [address]- 9851 Dec, [facility] [place] [facility] [address] [id number] [place] [address]- 4729 Dec, [facility] [place] [facility] [address] [id number] [place] [address]- 1192 Dec, [facility] [place] [facility] [address] [id number] [place] [address]- 6151 Dec, [facility] [place] [facility] [address] [id number] [place] [address]- 6027 Dec, [facility] [place] [facility] [address] [id number] [place] [address]- 6514 Nov, [facility] [place] [facility] [address] [id number] [place] [address]- 8006 Nov, [facility] [place] [facility] [address] [id number] [place] [address]- 1108 Oct, [facility] [place] [facility] [address] [id number] [place] [address]- 0268 Oct, [facility] [place] [facility] [address] [id number] [place] [address]- 1649 Oct, [facility] [place] [facility] [address] [id number] [place] [address]- 6009 Sep, [facility] [place] [facility] [address] [id number] [place] [address]- 0113 Sep, [facility] [place] [facility] [address] [id number], [place] [address]- 7747 Sep, [facility] [place] [facility] [address] [id number] [place] [address]- 8765 Sep, [facility] [place] [facility] [address] [id number] [place] [address]- 9935 Sep, [facility] [place] [facility] [address] [id number] [place] [address]- 7201 Sep, [facility] [place] [facility] [address] [id number] [place] [address]- 4683 Sep, [facility] [place] [facility] [address] [id number] [place] [address]- 4086 Sep, [facility] [place] [facility] [address] [id number] [place] [address]- 1585 Sep, [facility] [place] [facility] [address] [id number] [place] [address]- 9176 Sep, [facility] [address] [id number] [place] [address]- 7927 Sep, [facility] [place] [facility] [address] [id number] [place] [address] Sep, [facility] [place] [facility] [address] [id number] [place] [address] Aug, [facility] [place] [facility] [address] [id number] [place] [address] Aug, [facility] [place] [facility] [address] [id number] [place] [address] Aug, [facility] [place] [facility] [address] [id number] [place] [address] Aug, [facility] [place] [facility] [address] [id number] [place] [address] Jul, [facility] [place] [facility] [address] [id number] [place] [address] Jul, [facility] [place] [facility] [address] [id number], [place] [address] Jun, [facility] [place] [facility] [address] [id number] [place] [address] Jun, [facility] [place] [facility] [address] [id number] [place] [address] Jun, [facility] [place] [facility] [address] [id number] [place] [address] Jun, [facility] [place] [facility] [address] [id number], [place] [address] Jun, [facility] [place] [facility] [address] [id number] [place] [address] Jun, [facility] [place] [facility] [address] [id number] [place] [address] Jun, [facility] [place] [facility] [address] [id number] [place] [address] Jun, [facility] [place] [facility] [address] [id number], [place] [address] 24 May, 2013 [facility] [place] [facility] [address] [id number] [place] [address] 23 May, 2013 [facility] [place] [facility] [address] [id number] [place] [address] 18 May, 2013 [facility] [place] [facility] [address] [id number], [place] [address] 13 May, 2012 [facility] [place] [facility] [address] [id number], [place] [address] 11 May, 2013 [facility] [place] [facility] [address] [id number] [place] [address] 06 May, 2013 [facility] [place] [facility] [address] [id number], [place] [address] 03 May, 2013 [facility] [place] [facility] [address] [id number] [place] [address] 30 Apr, 2013 [facility] [place] [facility] [address] [id number] [place] [address] Apr, [facility] [address] [id number] [place] [address] Apr, [facility] [place] [facility] [address] [id number] [place] [address] Apr, [facility] [address] [id number] [place] [address] Apr, [facility] [place] [facility] [address] [id number] [place] [address] Apr, [facility] [address] [id number] [place] [address] Apr, [facility] [address] [id number] [place] [address] Mar, [facility] [address] [id number] [place] [address] Mar, [facility] [address] [id number] [place] [address] Mar, [facility] [place] [facility] [address] [id number] [place] [address] Mar, [facility] [address] [id number] [place] [address] Mar, [facility] [place] [facility] [address] [id number] [place] [address] Mar, [facility] [place] [facility] [address] [id number] [place] [address] Mar, [facility] [place] [facility] [address] [id number] [place] [address] Mar, [facility] [place] [facility] [address] [id number] [place] [address] Feb, [facility] [place] [facility] [address] [id number] [place] [address] Feb, [facility] [address] [id number] [place] [address] Feb, [facility] [address] [id number] [place] [address] January, [facility] [address] [id number] [place] [address] January, [facility] [facility] [address] [id number] [place] [address] January, [facility] [address] [id number] [place] [address] January, [facility] [address] [id number] [place] [address] January, [facility] [address] [id number] [place] [address] January, [facility] [address] [id number] [place] [address] January, [facility] [address] [id number] [place] [address] January, [facility] [address] [id number] [place] [address] Dec, [facility] [address] [id number] [place] [address] Dec, [facility] [place] [facility] [address] [id number], [place] [address] Dec, [facility] [place] [facility] [address] [id number] [place] [address] Dec, [facility] [place] [facility] [address] [id number] [place] [address] Dec, [facility] [place] [facility] [address] [id number] [place] [address] Nov, [facility] [place] [facility] [address] [id number], [place] [address] 21 Nov, 2012 [facility] [address] [id number] [place] [address] 19 Nov, 2012 [facility] [place] [facility] [address] [id number] [place] [address] 18 Nov, 2012 [facility] [place] [facility] [address] [facility] [id number] [place] [address] 18 Nov, 2012 [facility] [place] [facility] [address] [id number] [place] [address] 14 Nov, 2012 [facility] [place] [facility] [address] [id number] [place] [address] 11 Nov, 2012 [facility] [place] [facility] [address] [facility] [id number] [place] [address] 11 Nov, 2012 [facility] [address] [id number] [place] [address] 21 Oct, 2012 [facility] [place] [facility] [address] [facility] [id number] [place] [address] Oct, [facility] [place] [facility] [address] [facility] [id number] [place] [address] 12 Oct, 2012 [facility] [place] [facility] [address] [facility] [id number] [place] [address]- 2017 08 Oct, 2012 [facility] [place] [facility] [address] [id number] [place] [address] 07 Oct, 2012 [facility] [place] [facility] [address] [facility] [id number], [place] [address] 07 Oct, 2012 [facility] [place] [facility] [address] [facility] [id number] [place] [address] 05 Oct, 2012 [facility] [place] [facility] [address] [facility] [id number], [place] [address] 04 Oct, 2012 [facility] [place] [facility] [address] [id number], [place] [address] Oct, [facility] [address] [id number] [place] [address] Sep, [facility] [place] [facility] [address] [id number] [place] [address] Sep, [facility] [place] [facility] [address] [id number] [place] [address] 405[address] Sep, [facility] [place] [facility] [address] [id number] [place] [address] 39[address] Sep, [facility] [address] [id number] [place] [address] Sep, [facility] [place] [facility] [address] [id number] [place] [address] Sep, [facility] [place] [facility] [address] [id number] [place] [address] Aug, [facility] [place] [facility] [address] [id number] [place] [address] Aug, [facility] [place] [facility] [address] [id number] [place] [address] Aug, [facility] [place] [facility] [address] [id number] [place] [address] Aug, [facility] [place] [facility] [address] [id number], [place] [address] Aug, [facility] [place] [facility] [address] [id number], [place] [address] 18 Aug, 2012 [facility] [place] [facility] [address] [id number] [place] [address] 13 Aug, 2012 [facility] [place] [facility] [address] [id number] [place] [address]- 70[address] Aug, [facility] [place] [facility] [address] [id number], [place] [address] Aug, [facility] [place] [facility] [address] [id number], [place] [address] Jul, [facility] [address] [id number], [place] [address] Jul, [facility] [id number] [address] Jul, [facility] [id number], [place] [address] Jul, [facility] [id number] [place] [address]- [address] Nov, [facility] [id number] [place] [address]258- [address] Sep, [facility] [id number] [place] [address] 467034- 9845 Aug, [facility] [id number] [place] [address]- [address] Aug, [facility] [id number], [place] [address] Aug, [facility] [id number], [place] [address] Jul, IMMUNIZATIONS No Known Immunizations SOCIAL HISTORY Never Assessed REASON FOR VISIT Abdominal pain, intermittent pain, right lower quadrant, feels like he has a lump, he thinks he's pulled a muscle, his significant other believes he has a hernia-[facility] PLAN OF CARE Activity Details Follow Up pending CT Reason: VITAL SIGNS Height 74 in 2017-06-19 Weight 235.0 lbs 2017-06-19 Temperature 98.3 degrees Fahrenheit 2017-06-19 Heart Rate 78 bpm 2017-06-19 Respiratory Rate 18 2017-06-19 BMI 30.17 kg/m2 2017-06-19 Blood pressure systolic 134 mmHg 2017-06-19 Blood pressure diastolic 72 mmHg 2017-06-19 MEDICATIONS Medication Instructions Dosage Frequency Start Date End Date Duration Status Lisinopril 10 mg Orally Once a day 1 tablet 24h Active Hydrocodone-Acetaminophen 5-325 MG Orally 3 times a day 1 tablet as needed 8h Jun, Jun, 05 days Active Symbicort 160-4.5 MCG/ACT Inhalation Twice a day 2 puffs 12h Active ProAir HFA 108 (90 Base) MCG/ACT Inhalation every 4 hrs 2 puffs as needed 4h Active Oxygen 3 L/NC 24h Active Zofran ODT 4 MG Orally every 8 hrs 1 tablet on the tongue and allow to dissolve 8h Active ibuprofen 1 tab Active Pantoprazole Sodium 40 mg Orally Once a day 1 tablet 24h 30 days Active NovoLog 100 UNIT/ML sq tid inject 15 Units by Subcutaneous route 3 times per day before meals 8h Active Levemir 100 UNIT/ML sq bid 35 units 12h Active Glimepiride 1 MG Orally Once a day 1 tablet with breakfast or the first main meal of the day 24h Jun, 30 day(s) Active Spiriva HandiHaler 18 MCG Active Metoprolol Tartrate 50 mg Orally Twice a day 1 tablet 12h 30 Active Lyrica 150 MG Orally 3 times a day 1 capsule 8h 28 days Active Promethazine HCl 25 MG Orally 4 times a day 1 tablet as needed 6h January, Active RESULTS Name Result Date Reference Range CT Scan : Abdomen & Pelvis w/o & w/ Contrast 2017-06-25 CMP (OUTSIDE LAB) CBC W/ AUTO DIFF (OUTSIDE LAB) PROCEDURES Procedure Date Ordered Result Body Site [facility] VISIT ESTABLISHED PATIENT Jun 19, 2017 INSTRUCTIONS MEDICATIONS ADMINISTERED No Known Medications [...] History Ulcer of other part of foot 2014 Medical History hernia Medical History Combinations of [...] 06/27/2016 Hospitalization History Overdosed on Clonazepam #35. [place] 03/2014 Hospitalization History Overdosed on Xanax 07/2012 Hospitalization History Hypostension-medication side effect-[facility] 03/13/16
--- OUTSIDE RECORDS SUMMARY | 2018-07-23 06:41 | XMS REPORT ---
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 Name Role Phone TATYANA CHAPPELL Unavailable PROBLEMS Type Condition ICD9-CM Code TOL67-QE Code Onset Dates Condition Status SNOMED Code Problem Family history of colon cancer Z80.0 Active 989117875 Problem Arm paresthesia, right R20.2 Active 96989588 Problem Diabetic neuropathy, painful E11.40 Active 722927784 Problem COPD exacerbation J44.1 Active 267925048 Problem Diverticulitis K57.92 Active 140707104 Problem Gastroesophageal reflux disease without esophagitis K21.9 Active 730655356 Problem Respiratory bronchiolitis interstitial lung disease J84.115 Active 432546035 Problem Pain of right upper extremity M79.601 Active 609663124 Problem Interstitial lung disease J84.9 Active 284839976 Problem Hypoxia R09.02 Active 054155521 Problem Abdominal pain R10.9 Active 87028146 Problem care home 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.4 Active 439384667 Problem Essential hypertension I10 Active 65196927 Problem Neuropathy G62.9 Active 431279448 Problem Impotence N52.9 Active 545772073 Problem Type 2 diabetes 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 E11.8 Active 59087225 Problem Coronary atherosclerosis due to lipid rich plaque I25.83 Active 55063067 Problem Obstructive sleep apnea syndrome G47.33 Active 90333931 Problem Change in bowel habit R19.4 Active 32412088 Problem Drug abuse, opioid type F11.10 Active 9267203 ALLERGIES No Information ENCOUNTERS Encounter Location Date Diagnosis [facility] [id number] [address] Aug, [facility] [address] [id number] [address] Aug, Diabetic neuropathy, painful E11.40 ; Interstitial lung disease J84.9 ; Chronic cough R05 ; Type 2 diabetes 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 E11.8 and care home 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.4 [facility] [id number] [place] [address] 73610- 6049 Jul, [facility] [id number] [place] [address] 77901- 1908 Jul, [facility] [id number] [place] [address] 35215- 7213 Jul, Diabetic neuropathy, painful E11.40 [place] [id number] [place] [address] 58260- 7326 Jul, Type 2 diabetes 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 E11.8 [place] [id number] [place] [address] 84187- 9438 Jun, Diabetic neuropathy, painful E11.40 [facility] [id number] [place] [address] 18005- 5428 Jun, [facility] [id number] [place] [address] 90405 -9625 Jun, Type 2 diabetes 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 E11.8 ; Other viral agents as the cause of diseases classified elsewhere B97.89 ; Acute upper respiratory infection, unspecified J06.9 ; Acute recurrent maxillary sinusitis J01.01 ; Sore throat J02.9 and Headache R51 [facility] [id number] [place] [address] 65637- 2948 Jun, Right lower quadrant abdominal pain R10.31 and Type 2 diabetes 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 E11.8 [place] [id number] [place] [address] 42493- 2498 May, Diabetic neuropathy, painful E11.40 [facility] [id number] [place] [address] 34830- 2048 06 May, 2017 COPD exacerbation J44.1 and Type 2 diabetes 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 E11.8 [facility] [id number] [place] [address] 51724- 7610 Apr, Diabetic neuropathy, painful E11.40 [place] [id number] [place] [address] 21608- 8899 Apr, Diabetic neuropathy, painful E11.40 [facility] [place] [id number] [place] [address] 86078 -1946 Mar, Bronchitis J40 [place] [address] [address]- 6689 January, Type 2 diabetes 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 E11.8 ; Diabetic neuropathy, painful E11.40 ; Impotence N52.9 ; Coronary atherosclerosis due to lipid rich plaque I25.83 ; care home 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.4 ; Interstitial lung disease J84.9 ; Hypoxia R09.02 ; Essential hypertension I10 ; Gastroesophageal reflux disease without esophagitis K21.9 ; Left upper arm pain M79.622 and Cervical spinal stenosis M48.02 [facility] [id number] [place] [address] 46224 -8304 January, Viral gastroenteritis A08.4 [address] [id number] [place] [address] 60368- 8444 Dec, Diabetic neuropathy, painful E11.40 [place] [id number] [place] [address] [id number] Oct, [place] [id number] [place] [address] 45263- 5145 Oct, Acute right-sided weakness M62.89 and Slurring of speech R47.81 [place] [id number] [place] [address] 52822- 4556 Sep, Type 2 diabetes 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 E11.8 ; Diabetic neuropathy, painful E11.40 ; Impotence N52.9 ; Coronary atherosclerosis due to lipid rich plaque I25.83 ; care home 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.4 ; Interstitial lung disease J84.9 ; Hypoxia R09.02 ; Essential hypertension I10 and Gastroesophageal reflux disease without esophagitis K21.9 [facility] [id number] [place] [address] 36146 -2109 07 Sep, 2016 Bronchitis J40 [facility] [id number] [place] [address] 55827 -7850 Aug, Gastroenteritis and colitis, viral A08.4 [facility] [address] 88769- 1576 Aug, [facility] [address] 57036- 3509 Jun, Type 2 diabetes 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 E11.8 ; Diabetic neuropathy, painful E11.40 ; Impotence N52.9 ; Coronary atherosclerosis due to lipid rich plaque I25.83 ; 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 ; Interstitial lung disease J84.9 ; Hypoxia R09.02 and Essential hypertension I10 [facility] [address] 68331- 9380 30 May, 2016 Bronchitis J40 [facility] [address] 61462- 7813 29 May, 2016 [facility] [address] 66732- 0903 May, Pain of right upper extremity M79.601 [facility] [id number] [place] [address] 88634- 8405 May, [facility] [address] 11704- 7575 15 May, 2016 [facility] [id number] [place] [address] 48619- 8599 07 May, 2016 Right hand pain M79.641 [facility] [address] 55435- 8960 Apr, [facility] [address] 40448- 1915 Apr, [facility] [address] 79927- 0746 Mar, [place] [address] [place] [address] 61545- 3503 Mar, Essential hypertension I10 [place] [id number] [place] [address] 83355- 4715 Feb, [place] [id number] [place] [address] 86321- 4799 Feb, Interstitial lung disease J84.9 and Bronchitis J40 [place] [id number] [place] [address] 21654- 2751 Feb, [place] [id number] [place] [address] 63668- 9906 Feb, Type 2 diabetes 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 E11.8 ; Impotence N52.9 ; Coronary atherosclerosis due to lipid rich plaque I25.83 ; care home 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.4 and Diabetic neuropathy, painful E11.40 [place] [id number] [place] [address] 89284- 9235 January, [place] [id number] [place] [address] 01556- 0256 January, Arm paresthesia, right R20.2 and Pain of right upper extremity M79.601 [place] [id number] [place] [address] 84563- 4027 Dec, Lumbar strain S39.012A [place] [id number] [place] [address] 38974- 9500 Nov, Diabetic neuropathy, painful E11.40 ; Respiratory bronchiolitis interstitial lung disease J84.115 ; Pain of right upper extremity M79.601 and Arm paresthesia, right R20.2 [place] [id number] [place] [address] 03101- 3284 Nov, Diabetic neuropathy, painful E11.40 [place] [id number] [place] [address] 73956- 7555 Sep, Type 2 diabetes 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 E11.8 ; Impotence N52.9 ; Coronary atherosclerosis due to lipid rich plaque I25.83 ; 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 ; Diabetic neuropathy, painful E11.40 ; Chest pain R07.9 and Restless leg G25.81 [place] [id number] [place] [address] 71531- 2548 Sep, [place] [address] 26405- 1736 Jul, COPD (chronic obstructive pulmonary disease) with acute bronchitis J44.[address] 87000- 7461 Jun, Abdominal pain R10.9 ; Family history of colon cancer Z80.0 and Diverticulitis K57.92 [address] [id number] [place] [address] 77200- 3089 Jun, Abdominal pain R10.9 and Diverticulitis K57.92 [id number] [place] [address] 51685- 9101 Apr, Diabetes with other specified manifestations, type II or unspecified type, not stated as uncontrolled 250.80 ; Coronary atherosclerosis of unspecified type of vessel, [place] or graft 414.00 ; Unspecified essential hypertension 401.9 ; Impotence of organic origin 607.84 ; Sleep apnea 780.57 and Interstitial lung disease [id number] [place] [address] 15075- 9009 Dec, [place] [id number] [place] [address] 48676- 5586 Dec, [address] 03308- 7536 Nov, [place] [id number] [place] [address] 40541- 7947 Nov, [place] [id number] [place] [address] 91838- 0665 Nov, [facility] [place] [facility] [address] [id number] [place] [address]- 3630 Nov, [facility] [place] [facility] [address] [id number] [place] [address]- 4117 Nov, [facility] [place] [facility] [address] [id number] [place] [address]- 9877 Nov, [facility] [place] [facility] [address] [id number] [place] [address]- 4960 Nov, [facility] [place] [facility] [address] [id number] [place] [address]- 0227 Nov, [facility] [place] [facility] [address] [id number] [place] [address]- 3067 Nov, [facility] [place] [facility] [address] [id number] [place] [address]- 9225 Nov, [facility] [place] [facility] [address] [id number] [place] [address]- 9575 Oct, 2014 [facility] [place] [facility] [address] [id number] [place] [address]- 7005 Oct, 2014 [facility] [place] [facility] [address] [facility] [id number] [place] [address]- 7445 Oct, 2014 [facility] [place] [facility] [address] [id number] [address]- 9574 Oct, 2014 [facility] [place] [facility] [address] [id number] [address]- 4578 Oct, 2014 [facility] [place] [facility] [address] [id number] [place] [address]- 4453 Oct, 2014 [facility] [place] [facility] [address] [id number] [place] [address]- 8655 Oct, 2014 [facility] [place] [facility] [address] [facility] [id number] [place] [address]- 4011 Oct, 2014 [facility] [place] [facility] [address] [id number] [place] [address]- 3015 03 Oct, 2014 [facility] [place] [facility] [address] [id number] [place] [address]- 3794 Oct, 2014 [facility] [place] [facility] [address] [id number] [place] 3078 Oct, 2014 [facility] [place] [facility] [address] [id number] [place] 3367 Jul, 2013 [facility] [place] [facility] [address] [id number] [place] [address]- 7032 Jul, 2013 [facility] [place] [facility] [address] [id number] [place] [address]- 5835 29 Jun, 2014 [facility] [place] [facility] [address] [id number] [place] [address]- 4989 29 Jun, 2014 [facility] [place] [facility] [address] [id number] [place] [address]- 9808 17 Jun, 2014 [facility] [place] [facility] [address] [id number] [place] [address]- 3675 17 Jun, 2014 [facility] [place] [facility] [address] [id number] [place] [address]- 2987 15 Jun, 2014 [facility] [place] [facility] [address] [id number] [place] [address]- 5930 15 Jun, 2014 [facility] [place] [facility] [address] [id number] [place] [address]- 8703 14 Jun, 2014 [facility] [place] [facility] [address] [id number] [place] [address]- 7554 14 Jun, 2014 [facility] [place] [facility] [address] [id number] [place] [address]- 0146 13 Jun, 2014 [facility] [place] [facility] [address] [id number] [place] [address]- 4778 13 Jun, 2014 [facility] [place] [facility] [address] [id number] [place] [address]- 7627 Jun, [facility] [place] [facility] [address] [id number] [place] [address]- 1384 08 Jun, 2014 [facility] [place] [facility] [address] [id number] [place] [address]- 9328 Jun, [facility] [place] [facility] [address] [id number] [place] [address]- 9448 Jun, [facility] [place] [facility] [address] [id number] [place] [address]- 3863 30 May, 2014 [facility] [place] [facility] [address] [id number] [place] [address]- 4441 30 May, 2014 [facility] [place] [facility] [address] [id number] [place] [address]- 4663 May, [facility] [place] [facility] [address] [id number] [place] [address]- 5048 May, [facility] [place] [facility] [address] [id number] [place] [address]- 8342 May, [facility] [place] [facility] [address] [id number] [place] [address]- 8580 May, [facility] [place] [facility] [address] [id number] [place] [address]- 8453 Apr, [facility] [place] [facility] [address] [id number] [place] [address]- 3397 Apr, [facility] [place] [facility] [address] [id number] [address]- 8836 Apr, [facility] [place] [facility] [address] [id number] [place] [address]- 6869 Apr, [facility] [place] [facility] [address] [id number] [place] [address]- 9399 Apr, [facility] [place] [facility] [address] [id number] [place] [address]- 8369 Apr, [facility] [place] [facility] [address] [id number] [place] [address]- 5458 Apr, [facility] [place] [facility] [address] [id number] [place] [address]- 2165 Apr, [facility] [place] [facility] [address] [id number] [place] [address]- 9748 Apr, [facility] [place] [facility] [address] [id number] [place] [address]- 2959 Apr, [facility] [place] [facility] [address] [id number] [place] [address]- 8644 Apr, [facility] [place] [facility] [address] [id number] [place] [address]- 1921 Apr, [facility] [place] [facility] [address] [id number] [place] [address]- 0489 Mar, [facility] [place] [facility] [address] [id number] [place] [address]- 5543 Mar, [facility] [place] [facility] [address] [id number] [place] [address]- 5718 Mar, [facility] [place] [facility] [address] [id number] [place] [address]- 2412 Mar, [facility] [place] [facility] [address] [id number] [place] [address]- 0786 Mar, [facility] [place] [facility] [address] [id number] [place] [address]- 3862 Mar, [facility] [place] [facility] [address] [id number] [place] [address]- 1566 Mar, [facility] [place] [facility] [address] [id number] [place] [address]- 0202 Mar, [facility] [place] [facility] [address] [id number] [place] [address]- 2026 Mar, [facility] [place] [facility] [address] [id number] [place] [address]- 6570 Mar, [facility] [place] [facility] [address] [id number] [place] [address]- 4696 Mar, [facility] [place] [facility] [address] [id number] [place] [address]- 3086 Feb, [facility] [place] [facility] [address] [id number] [place] [address]- 4862 Feb, [facility] [place] [facility] [address] [id number] [place] [address]- 1545 Feb, [facility] [place] [facility] [address] [id number] [place] [address]- 3446 Feb, [facility] [place] [facility] [address] [id number] [place] [address]- 7122 Feb, [facility] [place] [facility] [address] [id number] [place] [address]- 7709 Feb, [facility] [place] [facility] [address] [id number] [place] [address]- 8744 Feb, [facility] [place] [facility] [address] [id number] [place] [address]- 9805 Feb, [facility] [place] [facility] [address] [id number] [place] [address]- 9486 Feb, [facility] [place] [facility] [address] [id number] [place] [address]- 7381 Feb, [facility] [place] [facility] [address] [id number] [place] [address]- 7356 January, [facility] [place] [facility] [address] [id number] [place] [address]- 3279 January, [facility] [place] [facility] [address] [id number] [place] [address]- 9189 January, [facility] [place] [facility] [address] [id number] [place] [address]- 0775 January, [facility] [place] [facility] [address] [id number] [place] [address]- 1624 January, [facility] [place] [facility] [address] [id number] [place] [address]- 6534 January, [facility] [place] [facility] [address] [id number] [place] [address]- 7953 January, [facility] [place] [facility] [address] [id number] [place] [address]- 3799 January, [facility] [place] [facility] [address] [id number] [place] [address]- 5555 January, [facility] [place] [facility] [address] [id number] [place] [address]- 1294 January, [facility] [place] [facility] [address] [id number] [place] [address]- 5670 January, [facility] [place] [facility] [address] [id number] [place] [address]- 2488 January, [facility] [place] [facility] [address] [id number] [place] [address]- 2826 January, [facility] [place] [facility] [address] [id number] [place] [address]- 8848 January, [facility] [place] [facility] [address] [id number] [place] [address]- 7820 January, [facility] [place] [facility] [address] [id number] [place] [address]- 1779 January, [facility] [place] [facility] [address] [id number] [place] [address]- 2099 Dec, [facility] [place] [facility] [address] [id number] [place] [address]- 7605 Dec, [facility] [place] [facility] [address] [id number] [place] [address]- 9695 Dec, [facility] [place] [facility] [address] [id number] [place] [address]- 1604 Dec, [facility] [place] [facility] [address] [id number] [place] [address]- 0086 Dec, [facility] [address] [id number] [place] [address]- 3753 Dec, [facility] [place] [facility] [address] [id number] [place] [address]- 6811 Dec, [facility] [place] [facility] [address] [id number] [place] [address]- 1361 Dec, [facility] [place] [facility] [address] [id number] [place] [address]- 6451 Dec, [facility] [place] [facility] [address] [id number] [place] [address]- 8630 Dec, [facility] [place] [facility] [address] [id number] [place] [address]- 9935 Nov, [facility] [place] [facility] [address] [id number] [place] [address]- 1945 Nov, [facility] [place] [facility] [address] [id number] [place] [address]- 0262 Oct, [facility] [place] [facility] [address] [id number] [place] [address]- 2424 Oct, [facility] [place] [facility] [address] [id number] [place] [address]- 6125 Oct, [facility] [place] [facility] [address] [id number] [place] [address]- 2178 Sep, [facility] [place] [facility] [address] [id number] [place] [address]- 0554 Sep, [facility] [place] [facility] [address] [id number] [place] [address]- 4955 Sep, [facility] [place] [facility] [address] [id number] [place] [address]- 7526 Sep, [facility] [place] [facility] [address] [id number] [place] [address] Sep, [facility] [place] [facility] [address] [id number] [place] [address] Sep, [facility] [place] [facility] [address] [id number] [place] [address] Sep, [facility] [place] [facility] [address] [id number] [place] [address] Sep, [facility] [place] [facility] [address] [id number] [place] [address] Sep, [facility] [place] [facility] [address] [id number] [place] [address] Sep, [facility] [place] [facility] [address] [id number] [place] [address] Sep, [facility] [place] [facility] [address] [id number] [place] [address] Sep, [facility] [place] [facility] [address] [id number] [place] [address] Aug, [facility] [place] [facility] [address] [id number] [place] [address] Aug, [facility] [place] [facility] [address] [id number] [address] Aug, [facility] [place] [facility] [address] [id number] [address] Aug, [facility] [place] [facility] [address] [id number], [place] [address] Jul, [facility] [place] [facility] [address] [id number] [place] [address] Jul, [facility] [place] [facility] [address] [id number] [address] Jun, [facility] [place] [facility] [address] [id number] [place] [address] Jun, [facility] [place] [facility] [address] [id number] [place] [address] Jun, [facility] [place] [facility] [address] [id number] [place] [address] Jun, [facility] [place] [facility] [address] [id number] [place] [address] Jun, [facility] [place] [facility] [address] [id number] [place] [address] Jun, [facility] [place] [facility] [address] [id number] [place] [address] Jun, [facility] [place] [facility] [address] [id number] [place] [address] Jun, [facility] [place] [facility] [address] [id number] [place] [address] 24 May, 2013 [facility] [place] [facility] [address] [id number] [place] [address] 23 May, 2012 [facility] [place] [facility] [address] [id number] [place] [address] 18 May, 2012 [facility] [place] [facility] [address] [id number] [place] [address] 13 May, 2013 [facility] [place] [facility] [address] [id number] [place] [address] 11 May, 2013 [facility] [place] [facility] [address] [id number] [place] [address]- [address] 06 May, 2012 [facility] [place] [facility] [address] [id number] [place] [address] 03 May, 2012 [facility] [place] [facility] [address] [id number] [place] [address] 30 Apr, 2013 [facility] [place] [facility] [address] [id number] [place] [address] Apr, [facility] [place] [facility] [address] [id number] [place] [address] Apr, [facility] [place] [facility] [address] [id number] [place] [address] Apr, [facility] [place] [facility] [address] [id number] [place] [address] Apr, [facility] [place] [facility] [address] [id number] [place] [address] Apr, [facility] [place] [facility] [address] [id number] [place] [address] Apr, [facility] [place] [facility] [address] [id number] [place] [address] Mar, [facility] [place] [facility] [address] [id number] [place] [address] Mar, [facility] [place] [facility] [address] [id number] [place] [address] Mar, [facility] [place] [facility] [address] [id number] [place] [address] Mar, [facility] [place] [facility] [address] [id number] [place] [address] Mar, [facility] [place] [facility] [address] [id number] [place] [address] Mar, [facility] [place] [facility] [address] [id number] [place] [address] Mar, [facility] [place] [facility] [address] [id number] [place] [address] Mar, [facility] [place] [facility] [address] [id number] [place] [address] Feb, [facility] [place] [facility] [address] [id number] [place] [address] Feb, [facility] [place] [facility] [address] [id number] [place] [address] Feb, [facility] [place] [facility] [address] [id number] [place] [address] January, [facility] [address] [id number] [place] [id number] [address] January, [facility] [address] [id number] [place] [address] January, [facility] [address] [id number] [place] [address] January, [facility] [address] [id number] [place] [address] January, [facility] [address] [id number] [place] [address] January, [facility] [address] [id number] [place] [address] January, [facility] [address] [id number] [place] [address] January, [facility] [address] [id number] [place] [address] Dec, [facility] [address] [id number] [place] [address] Dec, [facility] [address] [id number] [place] [address] Dec, [facility] [address] [id number] [place] [address] Dec, [facility] [address] [id number] [place] [address] Dec, [facility] [address] [id number] [place] [address] Nov, [facility] [place] [facility] [address] [id number] [place] [address] Nov, [facility] [address] [id number] [place] [address] Nov, [facility] [address] [id number] [place] [address] 18 Nov, 2012 [facility] [address] [id number] [place] [address] 18 Nov, 2012 [facility] [place] [facility] [address] [id number] [place] [address] 14 Nov, 2012 [facility] [place] [facility] [address] [id number] [place] [address]60 11 Nov, 2012 [facility] [place] [facility] [address] [id number] [place] [address] 11 Nov, 2012 [facility] [place] [facility] [address] [id number] [place] [address] Oct, [facility] [place] [facility] [address] [facility] [id number] [place] [address] Oct, [facility] [place] [facility] [address] [id number] [place] [address] 12 Oct, 2012 [facility] [place] [facility] [address] [id number] [place] [address] 08 Oct, 2012 [facility] [place] [facility] [address] [facility] [id number] [place] [address] 07 Oct, 2012 [facility] [place] [facility] [address] [facility] [id number] [place] [address] 07 Oct, 2012 [facility] [place] [facility] [address] [facility] [id number] [place] [address] 05 Oct, 2012 [facility] [place] [facility] [address] [id number] [place] [address] Oct, [facility] [place] [facility] [address] [id number] [place] [address]284 04 Oct, 2012 [facility] [place] [facility] [address] [id number] [place] [address] Sep, [facility] [place] [facility] [address] [id number] [place] [address] 25[address] Sep, [facility] [address] [id number] [place] [address] Sep, [facility] [place] [facility] [address] [id number] [place] [address]386 Sep, [facility] [place] [facility] [address] [id number] [place] [address] 8716 Sep, [facility] [place] [facility] [address] [id number] [place] [address] Sep, [facility] [place] [facility] [address] [id number] [place] [address] Aug, [facility] [place] [facility] [address] [id number] [place] [address] Aug, [facility] [place] [facility] [address] [id number] [place] [address] Aug, [facility] [place] [facility] [address] [id number] [place] [address] Aug, [facility] [place] [facility] [address] [id number] [place] [address] Aug, [facility] [place] [facility] [address] [id number] [place] [address]897 Aug, [facility] [place] [facility] [address] [id number] [place] [address] 2786 Aug, [facility] [place] [facility] [address] [id number] [place] [address] 2790 Aug, [facility] [place] [facility] [address] [id number] [place] [address] 0468 Aug, [facility] [place] [facility] [address] [id number] [place] [address] Jul, [facility] [place] [facility] [address] [id number] [place] [address] Jul, [facility] [place] [facility] [address] [id number] [address] Jul, [facility] [address] [address] Jul, [facility] [address] [address] Nov, [facility] [id number] [place] [address] Sep, [facility] [id number] [place] [address] Aug, [facility] [id number] [place] [address] Aug, [facility] [id number] [place] [address] Aug, [facility] [address] [id number] Jul, IMMUNIZATIONS No Known Immunizations SOCIAL HISTORY Never Assessed REASON FOR VISIT Controlled Med Refill PLAN OF CARE VITAL SIGNS MEDICATIONS Medication Instructions Dosage Frequency Start Date End Date Duration Status Lyrica 150 MG Orally 3 times a day 1 capsule 8h 30 days Active RESULTS No Results PROCEDURES No Known procedures INSTRUCTIONS MEDICATIONS ADMINISTERED No Known Medications MEDICAL [...] 05/2005 [facility] Surgical History Colonoscopy Kido (1 Polyp) repeat 5 years 2019 2014 Surgical History right rotator cuff surgery 06/27/2016 Hospitalization History Overdosed on Clonazepam #35. [place] 03/2014 Hospitalization History Overdosed on Xanax 07/2012 Hospitalization History Hypostension-medication side effect-[facility]ia [facility] 03/13/16
--- OUTSIDE RECORDS SUMMARY | 2018-07-23 06:42 | XMS REPORT ---
Author Author TATYANA CHAPPELL Organization [facility] Address [address] [place] [address] Care Team Providers Care Head Machine Feeder Name Role Phone TATYANA CHAPPELL Unavailable PROBLEMS Type Condition ICD9-CM Code GHY58-EB Code Onset Dates Condition Status SNOMED Code Problem Family history of colon cancer Z80.0 Active 159587336 Problem Arm paresthesia, right R20.2 Active 35100858 Problem Diabetic neuropathy, painful E11.40 Active 261065048 Problem COPD exacerbation J44.1 Active 601437862 Problem Diverticulitis K57.92 Active 044908129 Problem Gastroesophageal reflux disease without esophagitis K21.9 Active 167048266 Problem Respiratory bronchiolitis interstitial lung disease J84.115 Active 134650180 Problem Pain of right upper extremity M79.601 Active 662970745 Problem Interstitial lung disease J84.9 Active 010993384 Problem Hypoxia R09.02 Active 642697197 Problem Abdominal pain R10.9 Active 80759417 Problem FPC 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.4 Active 388397292 Problem Essential hypertension I10 Active 40543484 Problem Neuropathy G62.9 Active 869107222 Problem Impotence N52.9 Active 854550164 Problem Type 2 diabetes 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 E11.8 Active 68509509 Problem Coronary atherosclerosis due to lipid rich plaque I25.83 Active 95410278 Problem Obstructive sleep apnea syndrome G47.33 Active 22802200 Problem Change in bowel habit R19.4 Active 91143818 Problem Drug abuse, opioid type F11.10 Active 5489414 ALLERGIES No Information ENCOUNTERS Encounter Location Date Diagnosis [facility] [id number] [address] Aug, [facility] [address] [id number], [place] [address] Aug, Diabetic neuropathy, painful E11.40 ; Interstitial lung disease J84.9 ; Chronic cough R05 ; Type 2 diabetes 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 E11.8 and FPC 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.4 [facility] [id number] [place] [address] 75505- 3569 Jul, [facility] [id number] [place] [address] 19882- 3641 Jul, [facility] [id number] [place] [address] 68290- 4506 Jul, Diabetic neuropathy, painful E11.40 [place] [id number] [place] [address] 48717- 2715 Jul, Type 2 diabetes 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 E11.8 [place] [id number] [place] [address] 37193- 5411 Jun, Diabetic neuropathy, painful E11.40 [facility] [id number] [place] [address] 16029- 5830 Jun, [facility] [id number] [place] [address] 89478 -3097 Jun, Type 2 diabetes 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 E11.8 ; Other viral agents as the cause of diseases classified elsewhere B97.89 ; Acute upper respiratory infection, unspecified J06.9 ; Acute recurrent maxillary sinusitis J01.01 ; Sore throat J02.9 and Headache R51 [facility] [id number] [place] [address] 14000- 0149 Jun, Right lower quadrant abdominal pain R10.31 and Type 2 diabetes 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 E11.8 [place] [id number] [place] [address] 21732- 4851 May, Diabetic neuropathy, painful E11.40 [facility] [id number] [place] [address] 21562- 6474 06 May, 2017 COPD exacerbation J44.1 and Type 2 diabetes 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 E11.8 [facility] [id number] [place] [address] 66163- 1615 Apr, Diabetic neuropathy, painful E11.40 [place] [id number] [place] [address] 09375- 3855 Apr, Diabetic neuropathy, painful E11.40 [facility] [id number] [place] [address] 72214 -6687 Mar, Bronchitis J40 [place] [address] 06898- 8822 January, Type 2 diabetes 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 E11.8 ; Diabetic neuropathy, painful E11.40 ; Impotence N52.9 ; Coronary atherosclerosis due to lipid rich plaque I25.83 ; FPC 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.4 ; Interstitial lung disease J84.9 ; Hypoxia R09.02 ; Essential hypertension I10 ; Gastroesophageal reflux disease without esophagitis K21.9 ; Left upper arm pain M79.622 and Cervical spinal stenosis M48.02 [facility] [id number] [place] [address] 52800 -8381 January, Viral gastroenteritis A08.4 [place] [id number] [place] [address] 53808- 5379 Dec, Diabetic neuropathy, painful E11.40 [place] [id number] [place] [address] [id number] Oct, [place] [id number] [place] [address] 26607- 2861 Oct, Acute right-sided weakness M62.89 and Slurring of speech R47.81 [place] [id number] [place] [address] 21215- 6151 Sep, Type 2 diabetes 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 E11.8 ; Diabetic neuropathy, painful E11.40 ; Impotence N52.9 ; Coronary atherosclerosis due to lipid rich plaque I25.83 ; FPC 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.4 ; Interstitial lung disease J84.9 ; Hypoxia R09.02 ; Essential hypertension I10 and Gastroesophageal reflux disease without esophagitis K21.9 [facility] [id number] [place] [address] 12878 -2324 07 Sep, 2016 Bronchitis J40 [facility] [id number] [place] [address] 28118 -0615 Aug, Gastroenteritis and colitis, viral A08.4 [facility] [address] [address]97- 1923 Aug, [facility] [address] 28974- 4770 Jun, Type 2 diabetes 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 E11.8 ; Diabetic neuropathy, painful E11.40 ; Impotence N52.9 ; Coronary atherosclerosis due to lipid rich plaque I25.83 ; 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.4 ; Interstitial lung disease J84.9 ; Hypoxia R09.02 and Essential hypertension I10 [facility] [address] 56138- 7324 30 May, 2016 Bronchitis J40 [facility] [address] 45827- 2934 29 May, 2016 [facility] [address] 06691- 3042 May, Pain of right upper extremity M79.601 [facility] [id number] [place] [address] 80350- 6406 May, [facility] [address] 06687- 6472 15 May, 2016 [facility] [id number] [place] [address] 64112- 5365 07 May, 2016 Right hand pain M79.641 [facility] [address] 00125- 8053 Apr, [facility] [address] 85929- 1648 Apr, [facility] [address] 70793- 4458 Mar, [place] [id number] [place] [address] 97942- 8013 Mar, Essential hypertension I10 [place] [id number] [place] [address] 73415- 9829 Feb, [place] [id number] [place] [address] 49403- 6245 Feb, Interstitial lung disease J84.9 and Bronchitis J40 [place] [id number] [place] [address] 31348- 5629 Feb, [place] [id number] [place] [address] 44393- 0832 Feb, Type 2 diabetes 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 E11.8 ; Impotence N52.9 ; Coronary atherosclerosis due to lipid rich plaque I25.83 ; FPC 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.4 and Diabetic neuropathy, painful E11.40 [place] [id number] [place] [address] 20577- 8589 January, [place] [id number] [place] [address] 85580- 7890 January, Arm paresthesia, right R20.2 and Pain of right upper extremity M79.601 [place] [id number] [place] [address] 27491- 2500 Dec, Lumbar strain S39.012A [place] [id number] [place] [address] 62679- 9202 Nov, Diabetic neuropathy, painful E11.40 ; Respiratory bronchiolitis interstitial lung disease J84.115 ; Pain of right upper extremity M79.601 and Arm paresthesia, right R20.2 [place] [id number] [place] [address] 49381- 3657 Nov, Diabetic neuropathy, painful E11.40 [place] [id number] [place] [address] 88773- 9003 Sep, Type 2 diabetes 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 E11.8 ; Impotence N52.9 ; Coronary atherosclerosis due to lipid rich plaque I25.83 ; 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.4 ; Diabetic neuropathy, painful E11.40 ; Chest pain R07.9 and Restless leg G25.81 [place] [id number] [place] [address] 92218- 2517 Sep, [place] [address] 60949- 3716 Jul, COPD (chronic obstructive pulmonary disease) with acute bronchitis J44.[address] [address]- 2094 Jun, Abdominal pain R10.9 ; Family history of colon cancer Z80.0 and Diverticulitis K57.92 [id number] [place] [address] 21602- 4586 Jun, Abdominal pain R10.9 and Diverticulitis K57.92 [place] [id number] [place] [address] 13443- 5486 Apr, Diabetes with other specified manifestations, type II or unspecified type, not stated as uncontrolled 250.80 ; Coronary atherosclerosis of unspecified type of vessel, [place] or graft 414.00 ; Unspecified essential hypertension 401.9 ; Impotence of organic origin 607.84 ; Sleep apnea 780.57 and Interstitial lung disease [id number] [place] [address] 76965- 0068 Dec, [place] [id number] [place] [address] 36027- 9214 Dec, [address] 20416- 4479 Nov, [place] [id number] [place] [address] 68227- 6215 Nov, [place] [id number] [place] [address] 43764- 2386 Nov, [facility] [place] [facility] [address] [id number] [place] [address]- 5561 Nov, [facility] [place] [facility] [address] [id number] [place] [address]- 1514 Nov, [facility] [place] [facility] [address] [id number] [place] [address]- 0921 Nov, [facility] [place] [facility] [address] [id number] [place] [address]- 8541 Nov, [facility] [place] [facility] [address] [id number] [place] [address]- 7220 Nov, [facility] [place] [facility] [address] [id number] [place] [address]- 9542 Nov, [facility] [place] [facility] [address] [id number] [place] [address]- 8406 Nov, [facility] [place] [facility] [address] [id number] [place] [address]- 7557 Oct, 2014 [facility] [place] [facility] [address] [id number] [place] [address]- 2476 Oct, 2014 [facility] [place] [facility] [address] [facility] [id number] [place] [address]- 8019 Oct, 2014 [facility] [place] [facility] [address] [id number] [address]- 0748 Oct, 2014 [facility] [place] [facility] [address] [id number], [place] [address]- 1360 Oct, 2014 [facility] [place] [facility] [address] [id number] [place] [address]- 7934 Oct, 2014 [facility] [place] [facility] [address] [id number] [place] [address]- 7584 Oct, 2014 [facility] [place] [facility] [address] [facility] [id number] [place] [address]- 9965 Oct, 2014 [facility] [place] [facility] [address] [id number] [place] [address]- 1788 03 Oct, 2014 [facility] [place] [facility] [address] [id number] [place] [address]- 5237 Oct, 2014 [facility] [place] [facility] [address] [id number] [place] 2613 Oct, 2014 [facility] [place] [facility] [address] [id number] [place] 8646 Jul, 2013 [facility] [place] [facility] [address] [id number] [place] [address]- 5051 Jul, 2013 [facility] [place] [facility] [address] [id number] [place] [address]- 9149 29 Jun, 2014 [facility] [place] [facility] [address] [id number] [place] [address]- 4301 29 Jun, 2014 [facility] [place] [facility] [address] [id number] [place] [address]- 4369 17 Jun, 2014 [facility] [place] [facility] [address] [id number] [place] [address]- 0694 17 Jun, 2014 [facility] [place] [facility] [address] [id number] [place] [address]- 3250 15 Jun, 2014 [facility] [place] [facility] [address] [id number] [place] [address]- 9250 15 Jun, 2014 [facility] [place] [facility] [address] [id number] [place] [address]- 5199 14 Jun, 2014 [facility] [place] [facility] [address] [id number] [place] [address]- 5875 14 Jun, 2014 [facility] [place] [facility] [address] [id number] [place] [address]- 4902 13 Jun, 2014 [facility] [place] [facility] [address] [id number] [place] [address]- 7021 13 Jun, 2014 [facility] [place] [facility] [address] [id number] [place] [address]- 1560 Jun, [facility] [place] [facility] [address] [id number] [place] [address]- 5312 08 Jun, 2014 [facility] [place] [facility] [address] [id number] [place] [address]- 8731 Jun, [facility] [place] [facility] [address] [id number] [place] [address]- 4896 Jun, [facility] [place] [facility] [address] [id number] [place] [address]- 1386 30 May, 2014 [facility] [place] [facility] [address] [id number] [place] [address]- 5158 30 May, 2014 [facility] [place] [facility] [address] [id number] [place] [address]- 9046 May, [facility] [place] [facility] [address] [id number] [place] [address]- 3506 May, [facility] [place] [facility] [address] [id number] [place] [address]- 8777 May, [facility] [place] [facility] [address] [id number] [place] [address]- 5927 May, [facility] [place] [facility] [address] [id number] [place] [address]- 5875 Apr, [facility] [place] [facility] [address] [id number] [place] [address]- 8237 Apr, [facility] [place] [facility] [address] [id number], [place] [address]- 4930 Apr, [facility] [place] [facility] [address] [id number] [place] [address]- 3933 Apr, [facility] [place] [facility] [address] [id number] [place] [address]- 5201 Apr, [facility] [place] [facility] [address] [id number] [place] [address]- 3551 Apr, [facility] [place] [facility] [address] [id number] [place] [address]- 6417 Apr, [facility] [place] [facility] [address] [id number] [place] [address]- 3394 Apr, [facility] [place] [facility] [address] [id number] [place] [address]- 3211 Apr, [facility] [place] [facility] [address] [id number] [place] [address]- 1673 Apr, [facility] [place] [facility] [address] [id number] [place] [address]- 9700 Apr, [facility] [place] [facility] [address] [id number] [place] [address]- 2636 Apr, [facility] [place] [facility] [address] [id number] [place] [address]- 5978 Mar, [facility] [place] [facility] [address] [id number] [place] [address]- 6936 Mar, [facility] [place] [facility] [address] [id number] [place] [address]- 5779 Mar, [facility] [place] [facility] [address] [id number] [place] [address]- 3650 Mar, [facility] [place] [facility] [address] [id number] [place] [address]- 0035 Mar, [facility] [place] [facility] [address] [id number] [place] [address]- 4712 Mar, [facility] [place] [facility] [address] [id number] [place] [address]- 0941 Mar, [facility] [place] [facility] [address] [id number] [place] [address]- 5843 Mar, [facility] [place] [facility] [address] [id number] [place] [address]- 0476 Mar, [facility] [place] [facility] [address] [id number] [place] [address]- 0622 Mar, [facility] [place] [facility] [address] [id number] [place] [address]- 8008 Mar, [facility] [place] [facility] [address] [id number] [place] [address]- 0376 Feb, [facility] [place] [facility] [address] [id number] [place] [address]- 9886 Feb, [facility] [place] [facility] [address] [id number] [place] [address]- 6375 Feb, [facility] [place] [facility] [address] [id number] [place] [address]- 9289 Feb, [facility] [place] [facility] [address] [id number] [place] [address]- 0304 Feb, [facility] [place] [facility] [address] [id number] [place] [address]- 4807 Feb, [facility] [place] [facility] [address] [id number] [place] [address]- 4889 Feb, [facility] [place] [facility] [address] [id number] [place] [address]- 3806 Feb, [facility] [place] [facility] [address] [id number] [place] [address]- 0826 Feb, [facility] [place] [facility] [address] [id number] [place] [address]- 2979 Feb, [facility] [place] [facility] [address] [id number] [place] [address]- 6988 January, [facility] [place] [facility] [address] [id number] [place] [address]- 1521 January, [facility] [place] [facility] [address] [id number] [place] [address]- 6042 January, [facility] [place] [facility] [address] [id number] [place] [address]- 7794 January, [facility] [place] [facility] [address] [id number] [place] [address]- 9318 January, [facility] [place] [facility] [address] [id number] [place] [address]- 5044 January, [facility] [place] [facility] [address] [id number] [place] [address]- 8485 January, [facility] [place] [facility] [address] [id number] [place] [address]- 5111 January, [facility] [place] [facility] [address] [id number] [place] [address]- 2140 January, [facility] [place] [facility] [address] [id number] [place] [address]- 3871 January, [facility] [place] [facility] [address] [id number] [place] [address]- 2272 January, [facility] [place] [facility] [address] [id number] [place] [address]- 7510 January, [facility] [place] [facility] [address] [id number] [place] [address]- 9087 January, [facility] [place] [facility] [address] [id number] [place] [address]- 0839 January, [facility] [place] [facility] [address] [id number] [place] [address]- 9444 January, [facility] [place] [facility] [address] [id number] [place] [address]- 6135 January, [facility] [place] [facility] [address] [id number] [place] [address]- 7545 Dec, [facility] [place] [facility] [address] [id number] [place] [address]- 5899 Dec, [facility] [place] [facility] [address] [id number] [place] [address]- 8913 Dec, [facility] [place] [facility] [address] [id number] [place] [address]- 7626 Dec, [facility] [place] [facility] [address] [id number] [place] [address]- 0955 Dec, [facility] [address] [id number] [place] [address]- 4601 Dec, [facility] [place] [facility] [address] [id number] [place] [address]- 1179 Dec, [facility] [place] [facility] [address] [id number] [place] [address]- 2073 Dec, [facility] [place] [facility] [address] [id number] [place] [address]- 6147 Dec, [facility] [place] [facility] [address] [id number] [place] [address]- 8059 Dec, [facility] [place] [facility] [address] [id number] [place] [address]- 7023 Nov, [facility] [place] [facility] [address] [id number] [place] [address]- 6484 Nov, [facility] [place] [facility] [address] [id number] [place] [address]- 9578 Oct, [facility] [place] [facility] [address] [id number] [place] [address]- 8628 Oct, [facility] [place] [facility] [address] [id number] [place] [address]- 2693 Oct, [facility] [place] [facility] [address] [id number] [place] [address]- 5733 Sep, [facility] [place] [facility] [address] [id number] [place] [address]- 5601 Sep, [facility] [place] [facility] [address] [id number] [place] [address]- 6247 Sep, [facility] [place] [facility] [address] [id number] [place] [address]- 4494 Sep, [facility] [place] [facility] [address] [id number] [place] [address]- 8339 Sep, [facility] [place] [facility] [address] [id number] [place] [address]- 4602 Sep, [facility] [place] [facility] [address] [id number] [place] [address]- 7364 Sep, [facility] [place] [facility] [address] [id number] [place] [address]- 9571 Sep, [facility] [place] [facility] [address] [id number] [place] [address]- 8571 Sep, [facility] [place] [facility] [address] [id number] [place] [address] Sep, [facility] [place] [facility] [address] [id number] [place] [address] Sep, [facility] [place] [facility] [address] [id number] [place] [address] Sep, [facility] [place] [facility] [address] [id number] [place] [address] Aug, [facility] [place] [facility] [address] [id number] [place] [address] Aug, [facility] [place] [facility] [address] [id number], [place] [address] Aug, [facility] [place] [facility] [address] [id number], [place] [address] Aug, [facility] [place] [facility] [address] [id number], [place] [address] Jul, [facility] [place] [facility] [address] [id number] [place] [address] Jul, [facility] [place] [facility] [address] [id number], [place] [address] Jun, [facility] [place] [facility] [address] [id number] [place] [address] Jun, [facility] [place] [facility] [address] [id number] [place] [address] Jun, [facility] [place] [facility] [address] [id number] [place] [address] Jun, [facility] [place] [facility] [address] [id number] [place] [address] Jun, [facility] [place] [facility] [address] [id number] [place] [address] Jun, [facility] [place] [facility] [address] [id number] [place] [address] Jun, [facility] [place] [facility] [address] [id number] [place] [address] Jun, [facility] [place] [facility] [address] [id number] [place] [address] 24 May, 2013 [facility] [place] [facility] [address] [id number] [place] [address] 23 May, 2012 [facility] [place] [facility] [address] [id number] [place] [address] 18 May, 2012 [facility] [place] [facility] [address] [id number] [place] [address] 13 May, 2013 [facility] [place] [facility] [address] [id number] [place] [address] 11 May, 2013 [facility] [place] [facility] [address] [id number] [place] [address] 06 May, 2012 [facility] [place] [facility] [address] [id number] [place] [address] 03 May, 2012 [facility] [place] [facility] [address] [id number] [place] [address] 30 Apr, 2013 [facility] [place] [facility] [address] [id number] [place] [address] Apr, [facility] [place] [facility] [address] [id number] [place] [address] Apr, [facility] [place] [facility] [address] [id number] [place] [address] Apr, [facility] [place] [facility] [address] [id number] [place] [address] Apr, [facility] [place] [facility] [address] [id number] [place] [address] Apr, [facility] [place] [facility] [address] [id number] [place] [address] Apr, [facility] [place] [facility] [address] [id number] [place] [address] Mar, [facility] [place] [facility] [address] [id number] [place] [address] Mar, [facility] [place] [facility] [address] [id number] [place] [address] Mar, [facility] [place] [facility] [address] [id number] [place] [address] Mar, [facility] [place] [facility] [address] [id number] [place] [address] Mar, [facility] [place] [facility] [address] [id number] [place] [address] Mar, [facility] [place] [facility] [address] [id number] [place] [address] Mar, [facility] [place] [facility] [address] [id number] [place] [address] Mar, [facility] [place] [facility] [address] [id number] [place] [address] Feb, [facility] [place] [facility] [address] [id number] [place] [address] Feb, [facility] [place] [facility] [address] [id number] [place] [address] Feb, [facility] [place] [facility] [address] [id number] [place] [address] January, [facility] [address] [id number] [place] [address] January, [facility] [facility] [address] [id number] [place] [address] January, [facility] [address] [id number] [place] [address] January, [facility] [address] [id number] [place] [address] January, [facility] [address] [id number] [place] [address] January, [facility] [address] [id number] [place] [address] January, [facility] [address] [id number] [place] [address] January, [facility] [address] [id number] [place] [address] Dec, [facility] [address] [id number] [place] [address] Dec, [facility] [address] [id number] [place] [address] Dec, [facility] [address] [id number] [place] [address] Dec, [facility] [address] [id number] [place] [address] Dec, [facility] [address] [id number] [place] [address] Nov, [facility] [place] [facility] [address] [id number] [place] [address] Nov, [facility] [address] [id number] [place] [address] Nov, [facility] [address] [id number] [place] [address] 18 Nov, 2012 [facility] [address] [id number] [place] [address] 18 Nov, 2012 [facility] [place] [facility] [address] [id number] [place] [address] 14 Nov, 2012 [facility] [place] [facility] [address] [id number] [place] [address] 11 Nov, 2012 [facility] [place] [facility] [address] [id number] [place] [address] 11 Nov, 2012 [facility] [place] [facility] [address] [id number] [place] [address] Oct, [facility] [place] [facility] [address] [facility] [id number] [place] [address] Oct, [facility] [place] [facility] [address] [id number] [place] [address] 12 Oct, 2012 [facility] [place] [facility] [address] [id number] [place] [address] 08 Oct, 2012 [facility] [place] [facility] [address] [facility] [id number] [place] [address] 07 Oct, 2012 [facility] [place] [facility] [address] [facility] [id number] [place] [address] 07 Oct, 2012 [facility] [place] [facility] [address] [facility] [id number] [place] [address] 05 Oct, 2012 [facility] [place] [facility] [address] [id number] [place] [address] Oct, [facility] [place] [facility] [address] [id number] [place] [address] 04 Oct, 2012 [facility] [place] [facility] [address] [id number] [place] [address] Sep, [facility] [place] [facility] [address] [id number] [place] [address] Sep, [facility] [address] [id number] [place] [address] Sep, [facility] [place] [facility] [address] [id number] [place] [address] 69[address] Sep, [facility] [place] [facility] [address] [id number] [place] [address] Sep, [facility] [place] [facility] [address] [id number] [place] [address] 110[address] Sep, [facility] [place] [facility] [address] [id number] [place] [address] Aug, [facility] [place] [facility] [address] [id number] [place] [address] Aug, [facility] [place] [facility] [address] [id number] [place] [address] Aug, [facility] [place] [facility] [address] [id number] [place] [address] Aug, [facility] [place] [facility] [address] [id number] [place] [address] Aug, [facility] [place] [facility] [address] [id number] [place] [address] Aug, [facility] [place] [facility] [address] [id number] [place] [address] Aug, [facility] [place] [facility] [address] [id number] [place] [address] Aug, [facility] [place] [facility] [address] [id number] [place] [address] Aug, [facility] [place] [facility] [address] [id number] [place] [address] Jul, [facility] [place] [facility] [address] [id number] [place] [address] Jul, [facility] [place] [facility] [address] [id number] [id number] Jul, [facility] [id number] [place] [address] Jul, [facility] [id number] [id number] Nov, [facility] [id number] [place] [address] Sep, [facility] [id number] [place] [address] Aug, [facility] [id number] [place] [id number]- [address] Aug, [facility] [id number], [place] [address] Aug, [facility] [id number], [place] [address] Jul, IMMUNIZATIONS No Known Immunizations SOCIAL HISTORY Never Assessed REASON FOR VISIT Blood pressure check-[facility] PLAN OF CARE VITAL SIGNS Height 74 in 2017-09-03 Blood pressure systolic 136 mmHg 2017-09-03 Blood pressure diastolic 74 mmHg 2017-09-03 MEDICATIONS Unknown Medications RESULTS No Results PROCEDURES No Known procedures [...] 05/2005 Surgical History Right Rotator Cuff Repair [facility] 06/2016 Surgical History Colonoscopy [facility] (1 Polyp) repeat 5 years 2019 2014 Surgical History right rotator cuff surgery 06/27/2016 Hospitalization History Overdosed on Clonazepam #35. [facility] 03/2014 Hospitalization History Overdosed on Xanax 07/2012 Hospitalization History Hypostension-medication side effect-[facility] 03/13/16
--- OUTSIDE RECORDS SUMMARY | 2018-07-23 06:43 | XMS REPORT ---
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 Name Role Phone TATYANA CHAPPELL Unavailable PROBLEMS Type Condition ICD9-CM Code FCP21-OT Code Onset Dates Condition Status SNOMED Code Problem Family history of colon cancer Z80.0 Active 785885003 Problem Arm paresthesia, right R20.2 Active 37214583 Problem Diabetic neuropathy, painful E11.40 Active 870729727 Problem COPD exacerbation J44.1 Active 709831514 Problem Diverticulitis K57.92 Active 285551784 Problem Gastroesophageal reflux disease without esophagitis K21.9 Active 638356978 Problem Respiratory bronchiolitis interstitial lung disease J84.115 Active 053351454 Problem Pain of right upper extremity M79.601 Active 877774117 Problem Interstitial lung disease J84.9 Active 838703868 Problem Hypoxia R09.02 Active 597247317 Problem Abdominal pain R10.9 Active 66959724 Problem long-term 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.4 Active 765400395 Problem Essential hypertension I10 Active 94267532 Problem Neuropathy G62.9 Active 468201286 Problem Impotence N52.9 Active 953161180 Problem Type 2 diabetes 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 E11.8 Active 97462067 Problem Coronary atherosclerosis due to lipid rich plaque I25.83 Active 96772184 Problem Obstructive sleep apnea syndrome G47.33 Active 59254303 Problem Change in bowel habit R19.4 Active 92742611 Problem Drug abuse, opioid type F11.10 Active 3733328 ALLERGIES No Information ENCOUNTERS Encounter Location Date Diagnosis [facility] [id number] [address] Aug, [facility] [address] [id number] [address] Aug, Diabetic neuropathy, painful E11.40 ; Interstitial lung disease J84.9 ; Chronic cough R05 ; Type 2 diabetes 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 E11.8 and long-term 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.4 [facility] [id number] [place] [address] 21904- 9083 Jul, [facility] [id number] [place] [address] 62029- 0763 Jul, [facility] [id number] [place] [address] 06324- 2995 Jul, Diabetic neuropathy, painful E11.40 [place] [id number] [place] [address] 22447- 1319 Jul, Type 2 diabetes 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 E11.8 [place] [id number] [place] [address] 12835- 9627 Jun, Diabetic neuropathy, painful E11.40 [facility] [id number] [place] [address] 00346- 0715 Jun, [facility] [id number] [place] [address] 75852 -7372 Jun, Type 2 diabetes 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 E11.8 ; Other viral agents as the cause of diseases classified elsewhere B97.89 ; Acute upper respiratory infection, unspecified J06.9 ; Acute recurrent maxillary sinusitis J01.01 ; Sore throat J02.9 and Headache R51 [facility] [id number] [place] [address] 22420- 1456 Jun, Right lower quadrant abdominal pain R10.31 and Type 2 diabetes 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 E11.8 [place] [id number] [place] [address] 39761- 0966 May, Diabetic neuropathy, painful E11.40 [facility] [id number] [place] [address] 03424- 2025 06 May, 2017 COPD exacerbation J44.1 and Type 2 diabetes 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 E11.8 [facility] [id number] [place] [address] 10747- 2868 Apr, Diabetic neuropathy, painful E11.40 [place] [id number] [place] [address] 58730- 9459 Apr, Diabetic neuropathy, painful E11.40 [facility] [place] [id number] [place] [address] 79172 -0759 Mar, Bronchitis J40 [place] [address] 60239- 5038 January, Type 2 diabetes 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 E11.8 ; Diabetic neuropathy, painful E11.40 ; Impotence N52.9 ; Coronary atherosclerosis due to lipid rich plaque I25.83 ; long-term 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.4 ; Interstitial lung disease J84.9 ; Hypoxia R09.02 ; Essential hypertension I10 ; Gastroesophageal reflux disease without esophagitis K21.9 ; Left upper arm pain M79.622 and Cervical spinal stenosis M48.02 [facility] [id number] [place] [address] 39229 -7807 January, Viral gastroenteritis A08.4 [id number] [place] [address] 37658- 9800 Dec, Diabetic neuropathy, painful E11.40 [place] [id number] [place] [address] [id number] Oct, [address] [id number] [place] [address] 61848- 8791 Oct, Acute right-sided weakness M62.89 and Slurring of speech R47.81 [place] [id number] [place] [address] 42789- 1597 Sep, Type 2 diabetes 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 E11.8 ; Diabetic neuropathy, painful E11.40 ; Impotence N52.9 ; Coronary atherosclerosis due to lipid rich plaque I25.83 ; long-term 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.4 ; Interstitial lung disease J84.9 ; Hypoxia R09.02 ; Essential hypertension I10 and Gastroesophageal reflux disease without esophagitis K21.9 [facility] [id number] [place] [address] 65210 -6941 07 Sep, 2016 Bronchitis J40 [facility] [id number] [place] [address] 98780 -8865 Aug, Gastroenteritis and colitis, viral A08.4 [facility] [address] 90347- 3728 Aug, [facility] [address] 58133- 1744 Jun, Type 2 diabetes 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 E11.8 ; Diabetic neuropathy, painful E11.40 ; Impotence N52.9 ; Coronary atherosclerosis due to lipid rich plaque I25.83 ; 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 ; Interstitial lung disease J84.9 ; Hypoxia R09.02 and Essential hypertension I10 [facility] [address] 06431- 4020 30 May, 2016 Bronchitis J40 [facility] [address] 64660- 2183 29 May, 2016 [facility] [address] 73645- 9770 May, Pain of right upper extremity M79.601 [facility] [id number] [place] [address] 41756- 2592 May, [facility] [address] 88030- 7828 15 May, 2016 [facility] [id number] [place] [address] 41899- 6070 07 May, 2016 Right hand pain M79.641 [facility] [address] 29625- 8666 Apr, [facility] [address] 78483- 5484 Apr, [facility] [address] 04257- 7352 Mar, [place] [address] [place] [address] 69916- 0106 Mar, Essential hypertension I10 [place] [id number] [place] [address] 49569- 5148 Feb, [place] [id number] [place] [address] 60719- 5682 Feb, Interstitial lung disease J84.9 and Bronchitis J40 [place] [id number] [place] [address] 93230- 9520 Feb, [place] [id number] [place] [address] 16501- 1304 Feb, Type 2 diabetes 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 E11.8 ; Impotence N52.9 ; Coronary atherosclerosis due to lipid rich plaque I25.83 ; long-term 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.4 and Diabetic neuropathy, painful E11.40 [place] [id number] [place] [address] 31815- 2148 January, [place] [id number] [place] [address] 45136- 3348 January, Arm paresthesia, right R20.2 and Pain of right upper extremity M79.601 [place] [id number] [place] [address] 78276- 8107 Dec, Lumbar strain S39.012A [place] [id number] [place] [address] 21878- 7540 Nov, Diabetic neuropathy, painful E11.40 ; Respiratory bronchiolitis interstitial lung disease J84.115 ; Pain of right upper extremity M79.601 and Arm paresthesia, right R20.2 [place] [id number] [place] [address] 73091- 0806 Nov, Diabetic neuropathy, painful E11.40 [place] [id number] [place] [address] 41647- 7447 Sep, Type 2 diabetes 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 E11.8 ; Impotence N52.9 ; Coronary atherosclerosis due to lipid rich plaque I25.83 ; 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 ; Diabetic neuropathy, painful E11.40 ; Chest pain R07.9 and Restless leg G25.81 [place] [id number] [place] [address] 87899- 6217 Sep, [place] [address] 57614- 8223 Jul, COPD (chronic obstructive pulmonary disease) with acute bronchitis J44.[address] 27006- 6695 Jun, Abdominal pain R10.9 ; Family history of colon cancer Z80.0 and Diverticulitis K57.92 [place] [id number] [place] [address] 11781- 5028 Jun, Abdominal pain R10.9 and Diverticulitis K57.92 [id number] [place] [address] 08139- 5117 Apr, Diabetes with other specified manifestations, type II or unspecified type, not stated as uncontrolled 250.80 ; Coronary atherosclerosis of unspecified type of vessel, [place] or graft 414.00 ; Unspecified essential hypertension 401.9 ; Impotence of organic origin 607.84 ; Sleep apnea 780.57 and Interstitial lung disease [id number] [place] [address] 33703- 5947 Dec, [place] [id number] [place] [address] 97625- 2399 Dec, [address] 80003- 2895 Nov, [place] [id number] [place] [address] 10884- 8809 Nov, [place] [id number] [place] [address] 59967- 8223 Nov, [facility] [place] [facility] [address] [id number] [place] [address]- 8636 Nov, [facility] [place] [facility] [address] [id number] [place] [address]- 8954 Nov, [facility] [place] [facility] [address] [id number] [place] [address]- 5882 Nov, [facility] [place] [facility] [address] [id number] [place] [address]- 1460 Nov, [facility] [place] [facility] [address] [id number] [place] [address]- 3235 Nov, [facility] [place] [facility] [address] [id number] [place] [address]- 5294 Nov, [facility] [place] [facility] [address] [id number] [place] [address]- 7049 Nov, [facility] [place] [facility] [address] [id number] [place] [address]- 5428 Oct, 2014 [facility] [place] [facility] [address] [id number] [place] [address]- 0365 Oct, 2014 [facility] [place] [facility] [address] [facility] [id number] [place] [address]- 0426 Oct, 2014 [facility] [place] [facility] [address] [id number] [address]- 8880 Oct, 2014 [facility] [place] [facility] [address] [id number], [place] [address]- 1255 Oct, 2014 [facility] [place] [facility] [address] [id number] [place] [address]- 0186 Oct, 2014 [facility] [place] [facility] [address] [id number] [place] [address]- 0407 Oct, 2014 [facility] [place] [facility] [address] [facility] [id number] [place] [address]- 9578 Oct, 2014 [facility] [place] [facility] [address] [id number] [place] [address]- 2794 03 Oct, 2014 [facility] [place] [facility] [address] [id number] [place] [address]- 4453 Oct, 2014 [facility] [place] [facility] [address] [id number] [place]82 Oct, 2014 [facility] [place] [facility] [address] [id number] [place] 3753 Jul, 2013 [facility] [place] [facility] [address] [id number] [place] [address]- 8231 Jul, 2013 [facility] [place] [facility] [address] [id number] [place] [address]- 9858 29 Jun, 2014 [facility] [place] [facility] [address] [id number] [place] [address]- 9433 29 Jun, 2014 [facility] [place] [facility] [address] [id number] [place] [address]- 4035 17 Jun, 2014 [facility] [place] [facility] [address] [id number] [place] [address]- 5956 17 Jun, 2014 [facility] [place] [facility] [address] [id number] [place] [address]- 0496 15 Jun, 2014 [facility] [place] [facility] [address] [id number] [place] [address]- 0429 15 Jun, 2014 [facility] [place] [facility] [address] [id number] [place] [address]- 6791 14 Jun, 2014 [facility] [place] [facility] [address] [id number] [place] [address]- 3382 14 Jun, 2014 [facility] [place] [facility] [address] [id number] [place] [address]- 5434 13 Jun, 2014 [facility] [place] [facility] [address] [id number] [place] [address]- 8792 13 Jun, 2014 [facility] [place] [facility] [address] [id number] [place] [address]- 2534 Jun, [facility] [place] [facility] [address] [id number] [place] [address]- 4987 08 Jun, 2014 [facility] [place] [facility] [address] [id number] [place] [address]- 1974 Jun, [facility] [place] [facility] [address] [id number] [place] [address]- 2325 Jun, [facility] [place] [facility] [address] [id number] [place] [address]- 3761 30 May, 2014 [facility] [place] [facility] [address] [id number] [place] [address]- 5604 30 May, 2014 [facility] [place] [facility] [address] [id number] [place] [address]- 7140 May, [facility] [place] [facility] [address] [id number] [place] [address]- 2449 May, [facility] [place] [facility] [address] [id number] [place] [address]- 2437 May, [facility] [place] [facility] [address] [id number] [place] [address]- 8074 May, [facility] [place] [facility] [address] [id number] [place] [address]- 0289 Apr, [facility] [place] [facility] [address] [id number] [place] [address]- 9796 Apr, [facility] [place] [facility] [address] [id number], [place] [address]- 0981 Apr, [facility] [place] [facility] [address] [id number] [place] [address]- 3401 Apr, [facility] [place] [facility] [address] [id number] [place] [address]- 1890 Apr, [facility] [place] [facility] [address] [id number] [place] [address]- 4935 Apr, [facility] [place] [facility] [address] [id number] [place] [address]- 2161 Apr, [facility] [place] [facility] [address] [id number] [place] [address]- 1506 Apr, [facility] [place] [facility] [address] [id number] [place] [address]- 2598 Apr, [facility] [place] [facility] [address] [id number] [place] [address]- 2232 Apr, [facility] [place] [facility] [address] [id number] [place] [address]- 5629 Apr, [facility] [place] [facility] [address] [id number] [place] [address]- 1801 Apr, [facility] [place] [facility] [address] [id number] [place] [address]- 2426 Mar, [facility] [place] [facility] [address] [id number] [place] [address]- 7135 Mar, [facility] [place] [facility] [address] [id number] [place] [address]- 0044 Mar, [facility] [place] [facility] [address] [id number] [place] [address]- 4097 Mar, [facility] [place] [facility] [address] [id number] [place] [address]- 0586 Mar, [facility] [place] [facility] [address] [id number] [place] [address]- 7185 Mar, [facility] [place] [facility] [address] [id number] [place] [address]- 6044 Mar, [facility] [place] [facility] [address] [id number] [place] [address]- 3473 Mar, [facility] [place] [facility] [address] [id number] [place] [address]- 1985 Mar, [facility] [place] [facility] [address] [id number] [place] [address]- 3075 Mar, [facility] [place] [facility] [address] [id number] [place] [address]- 3815 Mar, [facility] [place] [facility] [address] [id number] [place] [address]- 7699 Feb, [facility] [place] [facility] [address] [id number] [place] [address]- 6026 Feb, [facility] [place] [facility] [address] [id number] [place] [address]- 0484 Feb, [facility] [place] [facility] [address] [id number] [place] [address]- 8035 Feb, [facility] [place] [facility] [address] [id number] [place] [address]- 8121 Feb, [facility] [place] [facility] [address] [id number] [place] [address]- 1339 Feb, [facility] [place] [facility] [address] [id number] [place] [address]- 0598 Feb, [facility] [place] [facility] [address] [id number] [place] [address]- 9384 Feb, [facility] [place] [facility] [address] [id number] [place] [address]- 1473 Feb, [facility] [place] [facility] [address] [id number] [place] [address]- 4436 Feb, [facility] [place] [facility] [address] [id number] [place] [address]- 6463 January, [facility] [place] [facility] [address] [id number] [place] [address]- 3301 January, [facility] [place] [facility] [address] [id number] [place] [address]- 4456 January, [facility] [place] [facility] [address] [id number] [place] [address]- 5459 January, [facility] [place] [facility] [address] [id number] [place] [address]- 8962 January, [facility] [place] [facility] [address] [id number] [place] [address]- 5736 January, [facility] [place] [facility] [address] [id number] [place] [address]- 4979 January, [facility] [place] [facility] [address] [id number] [place] [address]- 9984 January, [facility] [place] [facility] [address] [id number] [place] [address]- 9285 January, [facility] [place] [facility] [address] [id number] [place] [address]- 5760 January, [facility] [place] [facility] [address] [id number] [place] [address]- 6363 January, [facility] [place] [facility] [address] [id number] [place] [address]- 2208 January, [facility] [place] [facility] [address] [id number] [place] [address]- 5239 January, [facility] [place] [facility] [address] [id number] [place] [address]- 4059 January, [facility] [place] [facility] [address] [id number] [place] [address]- 8887 January, [facility] [place] [facility] [address] [id number] [place] [address]- 9634 January, [facility] [place] [facility] [address] [id number] [place] [address]- 0759 Dec, [facility] [place] [facility] [address] [id number] [place] [address]- 9396 Dec, [facility] [place] [facility] [address] [id number] [place] [address]- 8285 Dec, [facility] [place] [facility] [address] [id number] [place] [address]- 3006 Dec, [facility] [place] [facility] [address] [id number] [place] [address]- 8630 Dec, [facility] [address] [id number] [place] [address]- 1105 Dec, [facility] [place] [facility] [address] [id number] [place] [address]- 4940 Dec, [facility] [place] [facility] [address] [id number] [place] [address]- 4876 Dec, [facility] [place] [facility] [address] [id number] [place] [address]- 9306 Dec, [facility] [place] [facility] [address] [id number] [place] [address]- 0935 Dec, [facility] [place] [facility] [address] [id number] [place] [address]- 4295 Nov, [facility] [place] [facility] [address] [id number] [place] [address]- 1147 Nov, [facility] [place] [facility] [address] [id number] [place] [address]- 3087 Oct, [facility] [place] [facility] [address] [id number] [place] [address]- 5685 Oct, [facility] [place] [facility] [address] [id number] [place] [address]- 9030 Oct, [facility] [place] [facility] [address] [id number] [place] [address]- 8245 Sep, [facility] [place] [facility] [address] [id number] [place] [address]- 6611 Sep, [facility] [place] [facility] [address] [id number] [place] [address]- 7973 Sep, [facility] [place] [facility] [address] [id number] [place] [address]- 8425 Sep, [facility] [place] [facility] [address] [id number] [place] [address]- 5343 Sep, [facility] [place] [facility] [address] [id number] [place] [address]- 0902 Sep, [facility] [place] [facility] [address] [id number] [place] [address] Sep, [facility] [place] [facility] [address] [id number] [place] [address] Sep, [facility] [place] [facility] [address] [id number] [place] [address] Sep, [facility] [place] [facility] [address] [id number] [place] [address] Sep, [facility] [place] [facility] [address] [id number] [place] [address] Sep, [facility] [place] [facility] [address] [id number] [place] [address] Sep, [facility] [place] [facility] [address] [id number] [place] [address] Aug, [facility] [place] [facility] [address] [id number] [place] [address] Aug, [facility] [place] [facility] [address] [id number], [place] [address] Aug, [facility] [place] [facility] [address] [id number], [place] [address] Aug, [facility] [place] [facility] [address] [id number], [place] [address] Jul, [facility] [place] [facility] [address] [id number] [place] [address] Jul, [facility] [place] [facility] [address] [id number], [place] [address] Jun, [facility] [place] [facility] [address] [id number] [place] [address] Jun, [facility] [place] [facility] [address] [id number] [place] [address] Jun, [facility] [place] [facility] [address] [id number] [place] [address] Jun, [facility] [place] [facility] [address] [id number] [place] [address] Jun, [facility] [place] [facility] [address] [id number] [place] [address] Jun, [facility] [place] [facility] [address] [id number] [place] [address] Jun, [facility] [place] [facility] [address] [id number] [place] [address] Jun, [facility] [place] [facility] [address] [id number] [place] [address] 24 May, 2013 [facility] [place] [facility] [address] [id number] [place] [address] 23 May, 2012 [facility] [place] [facility] [address] [id number] [place] [address] 18 May, 2012 [facility] [place] [facility] [address] [id number] [place] [address] 13 May, 2013 [facility] [place] [facility] [address] [id number] [place] [address] 11 May, 2013 [facility] [place] [facility] [address] [id number] [place] [address] 06 May, 2012 [facility] [place] [facility] [address] [id number] [place] [address] 03 May, 2012 [facility] [place] [facility] [address] [id number] [place] [address] 30 Apr, 2013 [facility] [place] [facility] [address] [id number] [place] [address] Apr, [facility] [place] [facility] [address] [id number] [place] [address] Apr, [facility] [place] [facility] [address] [id number] [place] [address] Apr, [facility] [place] [facility] [address] [id number] [place] [address] Apr, [facility] [place] [facility] [address] [id number] [place] [address] Apr, [facility] [place] [facility] [address] [id number] [place] [address] Apr, [facility] [place] [facility] [address] [id number] [place] [address] Mar, [facility] [place] [facility] [address] [id number] [place] [address]- [address] Mar, [facility] [place] [facility] [address] [id number] [place] [address] Mar, [facility] [place] [facility] [address] [id number] [place] [address] Mar, [facility] [place] [facility] [address] [id number] [place] [address] Mar, [facility] [place] [facility] [address] [id number] [place] [address] Mar, [facility] [place] [facility] [address] [id number] [place] [address] Mar, [facility] [place] [facility] [address] [id number] [place] [address] Mar, [facility] [place] [facility] [address] [id number] [place] [address] Feb, [facility] [place] [facility] [address] [id number] [place] [address] Feb, [facility] [place] [facility] [address] [id number] [place] [address]- [address] Feb, [facility] [facility] [address] [id number] [place] [address] January, [facility] [address] [id number] [place] [address] January, [facility] [address] [id number] [place] [address] January, [facility] [address] [id number] [place] [address] January, [facility] [address] [id number] [place] [address] January, [facility] [address] [id number] [place] [address] January, [facility] [address] [id number] [place] [address] January, [facility] [address] [id number] [place] [address] January, [facility] [address] [id number] [place] [address] Dec, [facility] [address] [id number] [place] [address] Dec, [facility] [address] [id number] [place] [address] Dec, [facility] [address] [id number] [place] [address] Dec, [facility] [address] [id number] [place] [address] Dec, [facility] [address] [id number] [place] [address] Nov, [facility] [facility] [address] [id number] [place] [address] Nov, [facility] [address] [id number] [place] [address] Nov, [facility] [address] [id number] [place] [address] 18 Nov, 2012 [facility] [address] [id number] [place] [address] 18 Nov, 2012 [facility] [facility] [address] [id number] [place] [address] 14 Nov, 2012 [facility] [place] [facility] [address] [id number] [place] [address] 11 Nov, 2012 [facility] [place] [facility] [address] [id number] [place] [address] 11 Nov, 2012 [facility] [place] [facility] [address] [id number] [place] [address] Oct, [facility] [place] [facility] [address] [facility] [id number] [place] [address] Oct, [facility] [facility] [address] [id number] [place] [address] 12 Oct, 2012 [facility] [address] [id number] [place] [address] 08 Oct, 2012 [facility] [facility] [address] [facility] [id number] [place] [address] 07 Oct, 2012 [facility] [address] [facility] [id number] [place] [address] 07 Oct, 2012 [facility] [facility] [address] [facility] [id number] [place] [address] 05 Oct, 2012 [facility] [facility] [address] [id number] [place] [address] Oct, [facility] [address] [id number] [place] [address] 04 Oct, 2012 [facility] [facility] [address] [id number] [place] [address] Sep, [facility] [address] [id number] [place] [address] Sep, [facility] [address] [id number] [place] [address] Sep, [facility] [facility] [address] [id number] [place] [address] 6186 Sep, [facility] [place] [facility] [address] [id number] [place] [address]166 Sep, [facility] [place] [facility] [address] [id number] [place] [address] Sep, [facility] [place] [facility] [address] [id number] [place] [address] Aug, [facility] [address] [id number] [place] [address] Aug, [facility] [place] [facility] [address] [id number] [place] [address] Aug, [facility] [address] [id number] [place] [address] Aug, [facility] [address] [id number] [place] [address] Aug, [facility] [address] [id number] [place] [address] Aug, [facility] [facility] [address] [id number] [place] [address] Aug, [facility] [address] [id number] [place] [address] Aug, [facility] [address] [id number] [place] [address] 78[address] Aug, [facility] [address] [id number] [place] [address] Jul, [facility] [address] [id number] [place] [address] Jul, [facility] [address] [id number] [address] Jul, [facility] [id number] [address] Jul, [facility] [id number] [address] Nov, [facility] [id number] [place] [address] Sep, [facility] [id number] [place] [address]- [address] Aug, [facility] [id number] [place] [address]- [address] Aug, [facility] [id number] [place] [address]- [address] Aug, [facility] [id number] [address] Jul, IMMUNIZATIONS No Known Immunizations SOCIAL HISTORY [...] 05/2005 [facility] History Colonoscopy Kido (1 Polyp) repeat 5 years 2019 2014 Surgical History right rotator cuff surgery 06/27/2016 Hospitalization History Overdosed on Clonazepam #35. [place] 03/2014 Hospitalization History Overdosed on Xanax 07/2012 Hospitalization History Hypostension-medication side effect-[facility]ia [facility] 03/13/16
--- OUTSIDE RECORDS SUMMARY | 2018-07-23 06:44 | XMS REPORT ---
Author Author SAULO CHILD [facility] IN [facility] Address [address] [place] [address] Care Team Providers Care Criminology Professor Name Role Phone SAULO CHILD Unavailable PROBLEMS Type Condition ICD9-CM Code ATK71-SR Code Onset Dates Condition Status SNOMED Code Problem Family history of colon cancer Z80.0 Active 780574435 Problem Arm paresthesia, right R20.2 Active 72593740 Problem Diabetic neuropathy, painful E11.40 Active 291710459 Problem COPD exacerbation J44.1 Active 192078337 Problem Diverticulitis K57.92 Active 029809331 Problem Gastroesophageal reflux disease without esophagitis K21.9 Active 807514902 Problem Respiratory bronchiolitis interstitial lung disease J84.115 Active 416193699 Problem Pain of right upper extremity M79.601 Active 939715933 Problem Interstitial lung disease J84.9 Active 079708562 Problem Hypoxia R09.02 Active 577389563 Problem Abdominal pain R10.9 Active 99187064 Problem 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 Active 169710383 Problem Essential hypertension I10 Active 34987534 Problem Neuropathy G62.9 Active 170755856 Problem Impotence N52.9 Active 632547035 Problem Type 2 diabetes 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 E11.8 Active 76069251 Problem Coronary atherosclerosis due to lipid rich plaque I25.83 Active 43103043 Problem Obstructive sleep apnea syndrome G47.33 Active 22334061 Problem Change in bowel habit R19.4 Active 06674902 Problem Drug abuse, opioid type F11.10 Active 9830781 ALLERGIES Substance Reaction Event Type Date Status Staxyn Decreased blood pressure Drug Allergy Mar, Active Tramadol HCl hx of overdose Drug Allergy Mar, Active Hydrocodone-Acetaminophen hx of overdose Drug Allergy Mar, Active Clonazepam hx of overdose Drug Allergy Mar, Active ENCOUNTERS Encounter Location Date Diagnosis [facility] [address] [facility] [id number] [place] [address] 09083- 2048 Aug, [facility] [address] [id number] [place] [address] 41177- 5142 Aug, Diabetic neuropathy, painful E11.40 ; Interstitial lung disease J84.9 ; Chronic cough R05 ; Type 2 diabetes 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 E11.8 and penitentiary 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.4 [facility] [id number] [place] [address] 07872- 4503 Jul, [facility] [address] [address]- [address]92 Jul, [facility] [address] [address]66- 3253 Jul, Diabetic neuropathy, painful E11.40 [place] [address] 64851- 8153 Jul, Type 2 diabetes 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 E11.8 [facility] [id number] [place] [address] 31631- 1396 Jun, Diabetic neuropathy, painful E11.40 [facility] [id number] [place] [address] 64724- 7709 Jun, [facility] [id number] [place] [address]72 -6850 Jun, Type 2 diabetes 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 E11.8 ; Other viral agents as the cause of diseases classified elsewhere B97.89 ; Acute upper respiratory infection, unspecified J06.9 ; Acute recurrent maxillary sinusitis J01.01 ; Sore throat J02.9 and Headache R51 [facility] [id number] [place] [address] 64996- 4920 04 Jun, 2017 Right lower quadrant abdominal pain R10.31 and Type 2 diabetes 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 E11.8 [facility] [id number] [place] [address] 91909- 4680 27 May, 2017 Diabetic neuropathy, painful E11.40 [facility] [address] [place] [address] 25[address] May, COPD exacerbation J44.1 and Type 2 diabetes 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 E11.8 [place] [address] 07570- 4284 Apr, Diabetic neuropathy, painful E11.40 [place] [address] 27188- 9182 Apr, Diabetic neuropathy, painful E11.40 [facility] [address] [address] -[address]88 Mar, Bronchitis J40 [place] [address] 02051- 4619 January, Type 2 diabetes 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 E11.8 ; Diabetic neuropathy, painful E11.40 ; Impotence N52.9 ; Coronary atherosclerosis due to lipid rich plaque I25.83 ; penitentiary 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.4 ; Interstitial lung disease J84.9 ; Hypoxia R09.02 ; Essential hypertension I10 ; Gastroesophageal reflux disease without esophagitis K21.9 ; Left upper arm pain M79.622 and Cervical spinal stenosis M48.02 [facility] [address] [address] -[address] January, Viral gastroenteritis A08.4 [place] [address] 52765- 8300 Dec, Diabetic neuropathy, painful E11.40 [facility] [address] [id number] Oct, [place] [address] 24313- 7663 Oct, Acute right-sided weakness M62.89 and Slurring of speech R47.81 [place] [id number] [place] [address] 43741- 0076 Sep, Type 2 diabetes 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 E11.8 ; Diabetic neuropathy, painful E11.40 ; Impotence N52.9 ; Coronary atherosclerosis due to lipid rich plaque I25.83 ; 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 ; Interstitial lung disease J84.9 ; Hypoxia R09.02 ; Essential hypertension I10 and Gastroesophageal reflux disease without esophagitis K21.9 [facility] [id number] [place] [address] 86910 -5475 Sep, Bronchitis J40 [facility] [id number] [place] [address] 37744 -9494 Aug, Gastroenteritis and colitis, viral A08.4 [place] [address] 67343- 2283 Aug, [place] [address] 87285- 6673 Jun, Type 2 diabetes 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 E11.8 ; Diabetic neuropathy, painful E11.40 ; Impotence N52.9 ; Coronary atherosclerosis due to lipid rich plaque I25.83 ; 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 ; Interstitial lung disease J84.9 ; Hypoxia R09.02 and Essential hypertension I10 [place] [address] [address]62- 1979 30 May, 2016 Bronchitis J40 [place] [address] 83933- 7208 29 May, 2016 [place] [address] 19091- 9959 May, Pain of right upper extremity M79.601 [place] [id number] [place] [address] 63172- 7580 May, [place] [address] 90922- 1865 15 May, 2016 [place] [address] 96939- 9876 07 May, 2016 Right hand pain M79.641 [place] [address] 57864- 5262 Apr, [place] [id number] [place] [address] 59532- 1705 Apr, [place] [id number] [place] [address] 08629- 3460 Mar, [place] [id number] [place] [address] 87231- 6013 Mar, Essential hypertension I10 [place] [address] 38344- 9809 Feb, [place] [id number] [place] [address] 08139- 5830 Feb, Interstitial lung disease J84.9 and Bronchitis J40 [place] [id number] [place] [address] 52900- 0346 Feb, [place] [id number] [place] [address] 60680- 5430 Feb, Type 2 diabetes 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 E11.8 ; Impotence N52.9 ; Coronary atherosclerosis due to lipid rich plaque I25.83 ; penitentiary 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.4 and Diabetic neuropathy, painful E11.40 [place] [id number] [place] [address] 02039- 8200 January, [place] [id number] [place] [address] 24528- 8297 January, Arm paresthesia, right R20.2 and Pain of right upper extremity M79.601 [place] [id number] [place] [address] 39707- 1768 Dec, Lumbar strain S39.012A [place] [address] 40014- 1150 Nov, Diabetic neuropathy, painful E11.40 ; Respiratory bronchiolitis interstitial lung disease J84.115 ; Pain of right upper extremity M79.601 and Arm paresthesia, right R20.2 [place] [address] 83493- 8370 Nov, Diabetic neuropathy, painful E11.40 [place] [address] 69324- 9341 Sep, Type 2 diabetes 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 E11.8 ; Impotence N52.9 ; Coronary atherosclerosis due to lipid rich plaque I25.83 ; penitentiary 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.4 ; Diabetic neuropathy, painful E11.40 ; Chest pain R07.9 and Restless leg G25.81 [place] [address] 26801- 6364 Sep, [address] 46222- 8745 Jul, COPD (chronic obstructive pulmonary disease) with acute bronchitis J44.[address] 10633- 4873 Jun, Abdominal pain R10.9 ; Family history of colon cancer Z80.0 and Diverticulitis K57.92 [place] [address] 00409- 0334 Jun, Abdominal pain R10.9 and Diverticulitis K57.92 [place] [address] 32848- 9870 Apr, Diabetes with other specified manifestations, type II or unspecified type, not stated as uncontrolled 250.80 ; Coronary atherosclerosis of unspecified type of vessel, absentee-shawnee or graft 414.00 ; Unspecified essential hypertension 401.9 ; Impotence of organic origin 607.84 ; Sleep apnea 780.57 and Interstitial lung disease 515 [place] [address] 09620- 6484 Dec, [place] [address] 34159- 0362 Dec, [place] [address] 58179- 4724 Nov, [place] [address] [id number] [place] [address]- 0142 Nov, [facility] [place] [facility] [address] [id number] [place] [address]- 7738 Nov, [facility] [place] [facility] [address] [id number] [place] [address]- 2137 Nov, [facility] [place] [facility] [address] [id number] [place] [address]- 1032 Nov, [facility] [place] [facility] [address] [id number] [place] [address]- 2067 Nov, [facility] [place] [facility] [address] [id number] [place] [address]- 5806 Nov, [facility] [place] [facility] [address] [facility] [id number] [place] [address]- 0482 Nov, [facility] [place] [facility] [address] [id number] [place] [address]- 6376 Nov, [facility] [place] [facility] [address] [id number] [place] [address]- 9786 Nov, [facility] [place] [facility] [address] [id number] [place] [address]- 2433 Oct, 2014 [facility] [place] [facility] [address] [facility] [id number] [place] [address]- 0218 Oct, 2014 [facility] [place] [facility] [address] [facility] [id number] [place] [address]- 6557 Oct, 2014 [facility] [place] [facility] [address] [id number] [place] [address]- 0726 Oct, 2014 [facility] [place] [facility] [address] [id number] [place] [address]- 4532 Oct, 2014 [facility] [place] [facility] [address] [facility] [id number] [place] [address]- 0317 Oct, 2014 [facility] [place] [facility] [address] [facility] [id number] [place] [address]- 3054 Oct, 2014 [facility] [place] [facility] [address] [id number] [place] [address]- 5751 Oct, 2014 [facility] [place] [facility] [address] [id number] [place] [address]- 2255 Oct, 2014 [facility] [place] [facility] [address] [id number] [place] [address]- 6237 Oct, 2014 [facility] [place] [facility] [address] [id number] [place] [address]- 3817 Oct, 2014 [facility] [place] [facility] [address] [id number] [place] [address]- 7379 Jul, [facility] [place] [facility] [address] [id number] [place] [address]- 6613 Jul, [facility] [place] [facility] [address] [facility] [id number] [place] [address]- 4157 Jun, [facility] [place] [facility] [address] [id number] [place] [address]- 8318 29 Jun, 2014 [facility] [place] [facility] [address] [id number] [place] [address]- 9918 Jun, [facility] [place] [facility] [address] [facility] [id number] [place] [address]- 5854 17 Jun, 2014 [facility] [place] [facility] [address] [facility] [id number] [place] [address]- 0324 15 Jun, 2014 [facility] [place] [facility] [address] [id number], [place] [address]- 5525 15 Jun, 2014 [facility] [place] [facility] [address] [id number] [place] [address]- 4723 14 Jun, 2014 [facility] [place] [facility] [address] [id number] [place] [address]- 7941 14 Jun, 2014 [facility] [place] [facility] [address] [facility] [id number], [place] [address]- 3036 13 Jun, 2014 [facility] [place] [facility] [address] [id number] [place] [address]- 6108 Jun, [facility] [place] [facility] [address] [id number] [place] [address]- 2832 Jun, [facility] [place] [facility] [address] [id number] [place] [address]- 9396 08 Jun, 2014 [facility] [place] [facility] [address] [id number] [place] [address]- 8532 Jun, [facility] [place] [facility] [address] [id number] [place] [address]- 8716 Jun, [facility] [place] [facility] [address] [id number] [place] [address]- 4896 30 May, 2014 [facility] [place] [facility] [address] [id number] [place] [address]- 8382 30 May, 2013 [facility] [place] [facility] [address] [id number] [place] [address]- 1066 May, 2013 [facility] [place] [facility] [address] [id number] [place] [address]- 9073 May, [facility] [place] [facility] [address] [id number] [place] [address]- 4938 05 May, 2014 [facility] [place] [facility] [address] [id number] [place] [address]- 2506 May, [facility] [place] [facility] [address] [id number] [place] [address]- 3818 Apr, [facility] [place] [facility] [address] [id number] [place] [address]- 4946 Apr, [facility] [place] [facility] [address] [id number] [place] [address]- 7437 Apr, [facility] [place] [facility] [address] [id number] [place] [address]- 5395 Apr, [facility] [place] [facility] [address] [id number] [place] [address]- 2317 Apr, [facility] [place] [facility] [address] [id number] [place] [address]- 5067 Apr, [facility] [place] [facility] [address] [id number] [place] [address]- 0919 Apr, [facility] [place] [facility] [address] [id number] [place] [address]- 2123 Apr, [facility] [place] [facility] [address] [id number] [place] [address]- 8765 Apr, [facility] [place] [facility] [address] [id number] [place] [address]- 3344 Apr, [facility] [place] [facility] [address] [id number] [place] [address]- 2505 Apr, [facility] [place] [facility] [address] [id number] [place] [address]- 7295 Apr, [facility] [place] [facility] [address] [id number] [place] [address]- 2455 Mar, [facility] [place] [facility] [address] [id number] [place] [address]- 7340 Mar, [facility] [place] [facility] [address] [id number] [place] [address]- 1048 Mar, [facility] [place] [facility] [address] [id number] [place] [address]- 8607 Mar, [facility] [place] [facility] [address] [id number] [place] [address]- 1905 Mar, [facility] [place] [facility] [address] [id number] [place] [address]- 7406 Mar, [facility] [place] [facility] [address] [id number] [place] [address]- 2823 Mar, [facility] [place] [facility] [address] [id number] [place] [address]- 8359 Mar, [facility] [place] [facility] [address] [id number] [place] [address]- 3935 Mar, [facility] [place] [facility] [address] [id number] [place] [address]- 4193 Mar, [facility] [place] [facility] [address] [id number] [place] [address]- 4202 Mar, [facility] [place] [facility] [address] [id number] [place] [address]- 8548 Feb, [facility] [place] [facility] [address] [id number] [place] [address]- 8370 Feb, [facility] [place] [facility] [address] [id number] [place] [address]- 3687 Feb, [facility] [place] [facility] [address] [id number] [place] [address]- 3813 Feb, [facility] [place] [facility] [address] [id number] [place] [address]- 5631 Feb, [facility] [place] [facility] [address] [id number] [place] [address]- 6547 Feb, [facility] [place] [facility] [address] [id number] [place] [address]- 1085 Feb, [facility] [place] [facility] [address] [id number] [place] [address]- 6235 Feb, [facility] [place] [facility] [address] [id number] [place] [address]- 4741 Feb, [facility] [place] [facility] [address] [id number] [place] [address]- 0276 Feb, [facility] [place] [facility] [address] [id number] [place] [address]- 2724 January, [facility] [place] [facility] [address] [id number] [place] [address]- 4117 January, [facility] [place] [facility] [address] [id number] [place] [address]- 1519 January, [facility] [place] [facility] [address] [id number] [place] [address]- 3114 January, [facility] [place] [facility] [address] [id number] [place] [address]- 3390 January, [facility] [place] [facility] [address] [id number] [place] [address]- 0918 January, [facility] [place] [facility] [address] [id number] [place] [address]- 1510 January, [facility] [address] [id number] [place] [address]- 0492 January, [facility] [place] [facility] [address] [id number] [place] [address]- 7873 January, [facility] [place] [facility] [address] [id number] [place] [address]- 4728 January, [facility] [place] [facility] [address] [id number] [place] [address]- 2917 January, [facility] [place] [facility] [address] [id number] [place] [address]- 2774 January, [facility] [place] [facility] [address] [id number] [place] [address]- 6948 January, [facility] [place] [facility] [address] [id number] [place] [address]- 4766 January, [facility] [place] [facility] [address] [id number] [place] [address]- 5705 January, [facility] [place] [facility] [address] [id number] [place] [address]- 6512 January, [facility] [place] [facility] [address] [id number] [place] [address]- 5024 Dec, [facility] [place] [facility] [address] [id number] [place] [address]- 9324 Dec, [facility] [place] [facility] [address] [id number] [place] [address]- 3152 Dec, [facility] [place] [facility] [address] [id number] [place] [address]- 0788 Dec, [facility] [place] [facility] [address] [id number] [place] [address]- 9176 Dec, [facility] [place] [facility] [address] [id number] [place] [address]- 6963 Dec, [facility] [place] [facility] [address] [id number] [place] [address]- 5261 Dec, [facility] [place] [facility] [address] [id number] [place] [address]- 9201 Dec, [facility] [place] [facility] [address] [id number] [place] [address]- 2822 Dec, [facility] [place] [facility] [address] [id number] [place] [address]- 0205 Dec, [facility] [place] [facility] [address] [id number] [place] [address]- 1728 Nov, [facility] [place] [facility] [address] [id number] [place] [address]- 0985 Nov, [facility] [place] [facility] [address] [id number] [place] [address]- 3253 Oct, [facility] [place] [facility] [address] [id number] [place] [address]- 0490 Oct, [facility] [place] [facility] [address] [id number] [place] [address]- 7451 Oct, [facility] [place] [facility] [address] [id number] [place] [address]- 2988 Sep, [facility] [place] [facility] [address] [id number] [place] [address]- 3764 Sep, [facility] [place] [facility] [address] [id number] [place] [address]- 4844 Sep, [facility] [place] [facility] [address] [id number] [place] [address]- 7314 Sep, [facility] [place] [facility] [address] [id number] [place] [address]- 5340 Sep, [facility] [place] [facility] [address] [id number] [place] [address]- 3865 Sep, [facility] [place] [facility] [address] [id number] [place] [address]- 1682 Sep, [facility] [place] [facility] [address] [id number] [place] [address]- 0102 Sep, [facility] [place] [facility] [address] [id number] [place] [address]- 2105 Sep, [facility] [place] [facility] [address] [id number] [place] [address]- 2033 Sep, [facility] [place] [facility] [address] [id number] [place] [address] Sep, [facility] [place] [facility] [address] [id number] [place] [address] Sep, [facility] [place] [facility] [address] [id number] [place] [address] Aug, [facility] [place] [facility] [address] [id number] [place] [address] Aug, [facility] [place] [facility] [address] [id number] [place] [address] Aug, [facility] [place] [facility] [address] [id number] [place] [address] Aug, [facility] [place] [facility] [address] [id number] [place] [address] Jul, [facility] [place] [facility] [address] [id number] [place] [address] Jul, [facility] [place] [facility] [address] [id number] [place] [address] Jun, [facility] [place] [facility] [address] [id number] [place] [address] Jun, [facility] [place] [facility] [address] [id number] [place] [address] Jun, [facility] [place] [facility] [address] [id number] [place] [address] Jun, [facility] [place] [facility] [address] [id number], [place] [address] Jun, [facility] [place] [facility] [address] [id number] [place] [address] Jun, [facility] [place] [facility] [address] [id number] [place] [address] Jun, [facility] [place] [facility] [address] [id number] [place] [address] Jun, [facility] [place] [facility] [address] [id number], [place] [address] 24 May, 2013 [facility] [place] [facility] [address] [id number], [place] [address] 23 May, 2013 [facility] [place] [facility] [address] [id number], [place] [address] 18 May, 2013 [facility] [place] [facility] [address] [id number], [place] [address] 13 May, 2012 [facility] [place] [facility] [address] [id number], [place] [address] 11 May, 2012 [facility] [place] [facility] [address] [id number], [place] [address] 06 May, 2013 [facility] [place] [facility] [address] [id number], [place] [address] 03 May, 2013 [facility] [place] [facility] [address] [id number], [place] [address] 30 Apr, 2013 [facility] [place] [facility] [address] [id number] [place] [address] Apr, [facility] [place] [facility] [address] [id number] [place] [address] Apr, [facility] [place] [facility] [address] [id number] [place] [address] Apr, [facility] [place] [facility] [address] [id number] [place] [address] Apr, [facility] [place] [facility] [address] [id number] [place] [address] Apr, [facility] [place] [facility] [address] [id number] [place] [address] Apr, [facility] [place] [facility] [address] [id number] [place] [address] Mar, [facility] [place] [facility] [address] [id number] [place] [address] Mar, [facility] [place] [facility] [address] [id number] [place] [address] Mar, [facility] [place] [facility] [address] [id number] [place] [address] Mar, [facility] [place] [facility] [address] [id number] [place] [address] Mar, [facility] [place] [facility] [address] [id number] [place] [address] Mar, [facility] [place] [facility] [address] [id number] [place] [address] Mar, [facility] [place] [facility] [address] [id number] [place] [address] Mar, [facility] [place] [facility] [address] [id number] [place] [address] Feb, [facility] [place] [facility] [address] [id number] [place] [address] Feb, [facility] [place] [facility] [address] [id number] [place] [address] Feb, [facility] [address] [address] [id number] [place] [address] January, [facility] [address] [id number] [place] [address] January, [facility] [address] [id number] [place] [address] January, [facility] [address] [id number] [place] [address] January, [facility] [address] [id number] [place] [address] January, [facility] [address] [id number] [place] [address] January, [facility] [address] [id number] [place] [address] January, [facility] [address] [id number] [place] [address] January, [facility] [address] [id number] [place] [address] Dec, [facility] [address] [id number] [place] [address] Dec, [facility] [address] [id number] [place] [address] Dec, [facility] [address] [id number] [place] [address] Dec, [facility] [address] [id number] [place] [address] Dec, [facility] [address] [id number] [place] [address] Nov, [facility] [address] [id number], [place] [address] 21 Nov, 2012 [facility] [place] [facility] [address] [id number] [place] [address] 19 Nov, 2012 [facility] [place] [facility] [address] [id number] [place] [address] 18 Nov, 2012 [facility] [place] [facility] [address] [facility] [id number] [place] [address] 18 Nov, 2012 [facility] [place] [facility] [address] [id number] [place] [address] 14 Nov, 2012 [facility] [place] [facility] [address] [id number] [place] [address] 92[address] 11 Nov, 2012 [facility] [place] [facility] [address] [facility] [id number] [place] [address] Nov, [facility] [place] [facility] [address] [facility] [id number] [place] [address] Oct, [facility] [place] [facility] [address] [facility] [id number] [place] [address] Oct, [facility] [place] [facility] [address] [facility] [id number] [place] [address] 12 Oct, 2012 [facility] [place] [facility] [address] [facility] [id number] [place] [address] 08 Oct, 2012 [facility] [place] [facility] [address] [facility] [id number] [place] [address] 07 Oct, 2012 [facility] [place] [facility] [address] [facility] [id number], [place] [address] 07 Oct, 2012 [facility] [place] [facility] [address] [facility] [id number] [place] [address] 05 Oct, 2012 [facility] [place] [facility] [address] [facility] [id number], [place] [address] Oct, 2012 [facility] [place] [facility] [address] [facility] [id number], [place] [address] Oct, [facility] [place] [facility] [address] [id number] [place] [address] Sep, [facility] [address] [id number] [place] [address] Sep, [facility] [address] [id number] [place] [address] Sep, [facility] [address] [id number] [place] [address] 9[address] Sep, [facility] [address] [id number] [place] [address] 295[address] Sep, [facility] [address] [id number] [place] [address] 0686 Sep, [facility] [address] [id number] [place] [address] Aug, [facility] [address] [id number] [place] [address] Aug, [facility] [address] [id number] [place] [address] Aug, [facility] [address] [id number] [place] [address] Aug, [facility] [address] [id number] [place] [address] Aug, [facility] [address] [id number] [place] [address] Aug, [facility] [place] [facility] [address] [id number] [place] [address] Aug, [facility] [place] [facility] [address] [id number] [place] [address] Aug, [facility] [place] [facility] [address] [id number] [place] [address] Aug, [facility] [place] [facility] [address] [id number], [place] [address] Jul, [facility] [id number] [address] Jul, [facility] [id number], [place] [address] Jul, [facility] [id number], [place] [address] Jul, [facility] [id number] [place] [address]- [address] Nov, [facility] [id number] [place] [address] Sep, [facility] [id number] [place] [address] 222561- 1690 Aug, [facility] [id number] [place] [address] 7[address]199- [address] Aug, [facility] [id number] [place] [address]- [address] Aug, [facility] [id number] [place] [address] 779727- [address] Jul, IMMUNIZATIONS No Known Immunizations SOCIAL HISTORY Never Assessed REASON FOR VISIT cough, congestion, runny nose for 2 days. [email or web address] PLAN OF CARE Activity Details Follow Up prn Reason: VITAL SIGNS Height 74 in 2017-03-29 Weight 231.6 lbs 2017-03-29 Temperature 97.5 degrees Fahrenheit 2017-03-29 Heart Rate 84 bpm 2017-03-29 Respiratory Rate 20 2017-03-29 Oximetry on room air:97 % 2017-03-29 BMI 29.73 kg/m2 2017-03-29 Blood pressure systolic 126 mmHg 2017-03-29 Blood pressure diastolic 74 mmHg 2017-03-29 MEDICATIONS Medication Instructions Dosage Frequency Start Date End Date Duration Status Zofran ODT 4 MG Orally every 8 hrs 1 tablet on the tongue and allow to dissolve 8h Active NovoLog 100 UNIT/ML sq tid inject 15 Units by Subcutaneous route 3 times per day before meals 8h Active Naproxen 500 MG Orally every 12 hrs 1 tablet as needed 12h Active ibuprofen 1 tab Active Lisinopril 10 mg Orally Once a day 1 tablet 24h Active Azithromycin 250 MG Orally Once a day 2 tablets on the first day, then 1 tablet daily for 4 days 24h Mar, Mar, 5 day(s) Active ProAir HFA 108 (90 Base) MCG/ACT Inhalation every 4 hrs 2 puffs as needed 4h Active Lyrica 150 MG Orally 3 times a day 1 capsule 8h 30 days Active Metoprolol Tartrate 50 mg Orally Twice a day 1 tablet 12h 30 Active Oxygen 3 L/NC 24h Active Levemir 100 UNIT/ML sq bid 35 units 12h Active PredniSONE 20 MG Orally Once a day 2 tablet 24h Mar, Mar, 5 days Active Spiriva HandiHaler 18 MCG Active Promethazine HCl 25 MG Orally 4 times a day 1 tablet as needed 6h January, Active Aspirin Adult Low Strength 81 MG Orally Once a day 1 tablet 24h Active Pantoprazole Sodium 40 mg Orally Once a day 1 tablet 24h 30 days Active Promethazine-Codeine 6.25-10 MG/5ML Orally every 6 hrs 5 ml as needed 6h Mar, Mar, 5 days Active Symbicort 160-4.5 MCG/ACT Inhalation Twice a day 2 puffs 12h Active RESULTS No Results PROCEDURES Procedure Date Ordered Result Body Site MEASURE BLOOD OXYGEN LEVEL March 29, 2017 [facility] VISIT ESTABLISHED PATIENT March 29, 2017 INSTRUCTIONS MEDICATIONS ADMINISTERED No Known Medications [...] 05/2005 Surgical History Right Rotator Cuff Repair [facility] 06/2016 Surgical History Colonoscopy K[place] (1 Polyp) repeat 5 years 2019 2014 Surgical History right rotator cuff surgery 06/27/2016 Hospitalization History Overdosed on Clonazepam #35. [place] 03/2014 Hospitalization History Overdosed on Xanax 07/2012 Hospitalization History Hypostension-medication side effect-[facility] 03/13/16
--- OUTSIDE RECORDS SUMMARY | 2018-07-23 06:57 | XMS REPORT | Continuity of Care Document ---
Author Author [facility] Address Unknown Phone Unavailable Allergies Active Description Code Type Severity Reaction Onset Reported/Identified Relationship to Patient Clinical Status Yes No Known Drug Allergies [id number] Drug Allergy Unknown N/A 05/31/2013 Yes clonazepam 1 mg tablet Drug Allergy N/A N/A 05/12/2014 Yes hydrocodone-acetaminophen 7.5-325 mg tablet Drug Allergy N/A N/A 2013 Yes Tramadol hcl oral tablet 50 mg 50 mg tablet Drug Allergy N/A N/A 2013 Yes ceftriaxone [id number] Drug Allergy Unknown N/A 07/03/2017 Yes ceftriaxone [id number] Drug Allergy Moderate N/A 08/05/2017 Medications There is no data. Problems Date Dx Coded Attending Type Code Diagnosis Diagnosed By 08/15/1109 ANAID WALLIS, KIMBER Le Ot M25.511 PAIN IN RIGHT SHOULDER 08/15/1109 KIMBER WORRELL MD Ot Z47.89 ENCOUNTER FOR OTHER ORTHOPEDIC AFTERCARE 10/25/2010 Ot 250.02 DIAB YAHAIRA WO COMPL, TYPE II OR UNSPEC TY 10/25/2010 Ot 272.4 HYPERLIPIDEMIA NEC/NOS 10/25/2010 Ot 276.51 DEHYDRATION 10/25/2010 Ot 308.1 STRESS REACTION, FUGUE 10/25/2010 Ot 401.9 HYPERTENSION NOS 10/25/2010 Ot 787.91 DIARRHEA 10/25/2010 Ot V58.67 LONG-TERM ( CURRENT) USE OF INSULIN 10/25/2010 Ot V58.69 OTH MED,LT, CURRENT USE 08/08/2011 JUDY MERCER APRN 250.90 DIABETES TYPE 2 W/ COMPLICATIONS (UNSPEC) 08/08/2011 JUDY MERCER APRN 272.4 HYPERLIPIDEMIA 08/08/2011 JUDY MERCER APRN 401.1 HYPERTENSION, BENIGN ESSENTIAL 08/08/2011 JUDY MERCER APRN 845.00 SPRAIN/STRAIN ANKLE 08/08/2011 TESSA MCKEON MD 250.90 DIABETES MELLITUS TYPE 2 WITH COMPLICATION 08/08/2011 TESSA MCKEON MD 272.4 HYPERLIPIDEMIA 08/08/2011 TESSA MCKEON MD 401.1 HYPERTENSION, BENIGN ESSENTIAL 08/08/2011 TESSA MCKEON MD 845.00 SPRAIN/STRAIN ANKLE 08/08/2011 PATY LATHAM MD 250.90 DIABETES MELLITUS TYPE 2 WITH COMPLICATION 08/08/2011 PATY LATHAM MD 272.4 HYPERLIPIDEMIA 08/08/2011 PATY LATHAM MD 401.1 ESSENTIAL HYPERTENSION BENIGN 08/08/2011 PATY LATHAM MD 845.00 SPRAIN/STRAIN ANKLE 08/08/2011 TESSA MCKEON MD 250.90 DIABETES MELLITUS TYPE 2 WITH COMPLICATION 08/08/2011 TESSA MCKEON MD 272.4 HYPERLIPIDEMIA 08/08/2011 TESSA MCKEON MD 401.1 ESSENTIAL HYPERTENSION BENIGN 08/08/2011 TESSA MCKEON MD 845.00 SPRAIN/STRAIN ANKLE 08/08/2011 PATY LATHAM MD 250.90 DIABETES MELLITUS TYPE 2 WITH COMPLICATION 08/08/2011 PATY LATHAM MD 272.4 HYPERLIPIDEMIA 08/08/2011 PATY LATHAM MD 401.1 ESSENTIAL HYPERTENSION BENIGN 08/08/2011 PATY LATHAM MD 845.00 SPRAIN/STRAIN ANKLE 08/08/2011 250.90 DIABETES MELLITUS TYPE 2 WITH COMPLICATION 08/08/2011 272.4 HYPERLIPIDEMIA 08/08/2011 401.1 ESSENTIAL HYPERTENSION BENIGN 08/08/2011 845.00 SPRAIN/ STRAIN ANKLE 08/08/2011 TESSA MCKEON MD 250.90 DIABETES MELLITUS TYPE 2 WITH COMPLICATION 08/08/2011 TESSA MCKEON MD 272.4 HYPERLIPIDEMIA 08/08/2011 TESSA MCKEON MD 401.1 ESSENTIAL HYPERTENSION BENIGN 08/08/2011 TESSA MCKEON MD 845.00 SPRAIN/STRAIN ANKLE 08/08/2011 250.90 DIABETES MELLITUS TYPE 2 WITH COMPLICATION 08/08/2011 272.4 HYPERLIPIDEMIA 08/08/2011 401.1 ESSENTIAL HYPERTENSION BENIGN 08/08/2011 845.00 SPRAIN/ STRAIN ANKLE 08/08/2011 250.90 DIABETES MELLITUS TYPE 2 WITH COMPLICATION 08/08/2011 272.4 HYPERLIPIDEMIA 08/08/2011 401.1 ESSENTIAL HYPERTENSION BENIGN 08/08/2011 845.00 SPRAIN/ STRAIN ANKLE 08/08/2011 250.90 DIABETES MELLITUS TYPE 2 WITH COMPLICATION 08/08/2011 272.4 HYPERLIPIDEMIA 08/08/2011 401.1 ESSENTIAL HYPERTENSION BENIGN 08/08/2011 845.00 SPRAIN/ STRAIN ANKLE 08/08/2011 PATY LATHAM MD 250.90 DIABETES MELLITUS TYPE 2 WITH COMPLICATION 08/08/2011 PATY LATHAM MD 272.4 HYPERLIPIDEMIA 08/08/2011 PATY LATHAM MD 401.1 ESSENTIAL HYPERTENSION BENIGN 08/08/2011 PATY LATHAM MD 845.00 SPRAIN/STRAIN ANKLE 08/08/2011 250.90 DIABETES MELLITUS TYPE 2 WITH COMPLICATION 08/08/2011 272.4 HYPERLIPIDEMIA 08/08/2011 401.1 ESSENTIAL HYPERTENSION BENIGN 08/08/2011 845.00 SPRAIN/ STRAIN ANKLE 08/08/2011 250.90 DIABETES MELLITUS TYPE 2 WITH COMPLICATION 08/08/2011 272.4 HYPERLIPIDEMIA 08/08/2011 401.1 ESSENTIAL HYPERTENSION BENIGN 08/08/2011 845.00 SPRAIN/ STRAIN ANKLE 08/08/2011 250.90 DIABETES MELLITUS TYPE 2 WITH COMPLICATION 08/08/2011 272.4 HYPERLIPIDEMIA 08/08/2011 401.1 ESSENTIAL HYPERTENSION BENIGN 08/08/2011 845.00 SPRAIN/ STRAIN ANKLE 08/08/2011 250.90 DIABETES MELLITUS TYPE 2 WITH COMPLICATION 08/08/2011 272.4 HYPERLIPIDEMIA 08/08/2011 401.1 ESSENTIAL HYPERTENSION BENIGN 08/08/2011 845.00 SPRAIN/ STRAIN ANKLE 08/08/2011 250.90 DIABETES MELLITUS TYPE 2 WITH COMPLICATION 08/08/2011 272.4 HYPERLIPIDEMIA 08/08/2011 401.1 ESSENTIAL HYPERTENSION BENIGN 08/08/2011 845.00 SPRAIN/ STRAIN ANKLE 08/08/2011 250.90 DIABETES MELLITUS TYPE 2 WITH COMPLICATION 08/08/2011 272.4 HYPERLIPIDEMIA 08/08/2011 401.1 ESSENTIAL HYPERTENSION BENIGN 08/08/2011 845.00 SPRAIN/ STRAIN ANKLE 08/08/2011 PATY LATHAM MD 250.90 DIABETES MELLITUS TYPE 2 WITH COMPLICATION 08/08/2011 PATY LATHAM MD 272.4 HYPERLIPIDEMIA 08/08/2011 PATY LATHAM MD 401.1 ESSENTIAL HYPERTENSION BENIGN 08/08/2011 PATY LATHAM MD 845.00 SPRAIN/STRAIN ANKLE 08/08/2011 PATY LATHAM MD 250.90 DIABETES MELLITUS TYPE 2 WITH COMPLICATION 08/08/2011 PATY LATHAM MD 272.4 HYPERLIPIDEMIA 08/08/2011 PATY LATHAM MD 401.1 ESSENTIAL HYPERTENSION BENIGN 08/08/2011 PATY LATHAM MD 845.00 SPRAIN/STRAIN ANKLE 08/08/2011 SIMPSON DO, NELI K 250.90 DIABETES MELLITUS TYPE 2 WITH COMPLICATION 08/08/2011 SIMPSON DO, NELI K 272.4 HYPERLIPIDEMIA 08/08/2011 SIMPSON DO, NELI K 401.1 ESSENTIAL HYPERTENSION BENIGN 08/08/2011 SIMPSON DO, NELI K 845.00 SPRAIN/STRAIN ANKLE 08/08/2011 TESSA MCKEON MD 250.90 DIABETES MELLITUS TYPE 2 WITH COMPLICATION 08/08/2011 TESSA MCKEON MD 272.4 HYPERLIPIDEMIA 08/08/2011 TESSA MCKEON MD 401.1 ESSENTIAL HYPERTENSION BENIGN 08/08/2011 TESSA MCKEON MD 845.00 SPRAIN/STRAIN ANKLE 08/08/2011 PATY LATHAM MD 250.90 DIABETES MELLITUS TYPE 2 WITH COMPLICATION 08/08/2011 PATY LATHMA MD 272.4 HYPERLIPIDEMIA 08/08/2011 PATY LATHAM MD 401.1 ESSENTIAL HYPERTENSION BENIGN 08/08/2011 PATY LATHAM MD 845.00 SPRAIN/STRAIN ANKLE 08/08/2011 SIMPSON DO, NELI K 250.90 DIABETES MELLITUS TYPE 2 WITH COMPLICATION 08/08/2011 SIMPSON DO, NELI K 272.4 HYPERLIPIDEMIA 08/08/2011 SIMPSON DO, NELI K 401.1 ESSENTIAL HYPERTENSION BENIGN 08/08/2011 SIMPSON DO, NELI K 845.00 SPRAIN/STRAIN ANKLE 08/08/2011 SIMPSON DO, NELI K 250.90 DIABETES MELLITUS TYPE 2 WITH COMPLICATION 08/08/2011 SIMPSON DO, NELI K 272.4 HYPERLIPIDEMIA 08/08/2011 SIMPSON DO, NELI K 401.1 ESSENTIAL HYPERTENSION BENIGN 08/08/2011 SIMPSON DO, NELI K 845.00 SPRAIN/STRAIN ANKLE 08/08/2011 [facility], TATYANA L 250.90 DIABETES MELLITUS TYPE 2 WITH COMPLICATION 08/08/2011 [facility], TATYANA L 272.4 HYPERLIPIDEMIA 08/08/2011 [facility], TATYANA L 401.1 ESSENTIAL HYPERTENSION BENIGN 08/08/2011 [facility], TATYANA L 845.00 SPRAIN/STRAIN ANKLE 08/08/2011 [facility], TATYANA L 250.90 DIABETES MELLITUS TYPE 2 WITH COMPLICATION 08/08/2011 [facility], TATYANA L 272.4 HYPERLIPIDEMIA 08/08/2011 [facility], TATYANA L 401.1 ESSENTIAL HYPERTENSION BENIGN 08/08/2011 [facility], TATYANA L 845.00 SPRAIN/STRAIN ANKLE 08/08/2011 [facility], TATYANA L 250.90 DIABETES MELLITUS TYPE 2 WITH COMPLICATION 08/08/2011 [facility], TATYANA L 272.4 HYPERLIPIDEMIA 08/08/2011 [facility], TATYANA L 401.1 ESSENTIAL HYPERTENSION BENIGN 08/08/2011 [facility], TATYANA L 845.00 SPRAIN/STRAIN ANKLE 08/08/2011 SIMPSON DO, NELI K 250.90 DIABETES MELLITUS TYPE 2 WITH COMPLICATION 08/08/2011 SIMPSON DO, NELI K 272.4 HYPERLIPIDEMIA 08/08/2011 SIMPSON DO, NELI K 401.1 ESSENTIAL HYPERTENSION BENIGN 08/08/2011 SIMPSON DO, NELI K 845.00 SPRAIN/STRAIN ANKLE 08/08/2011 [facility], FERNANDA R 250.90 DIABETES MELLITUS TYPE 2 WITH COMPLICATION 08/08/2011 [facility], FERNANDA R 272.4 HYPERLIPIDEMIA 08/08/2011 [facility], FERNANDA R 401.1 ESSENTIAL HYPERTENSION BENIGN 08/08/2011 [facility] 845.00 SPRAIN/STRAIN ANKLE 08/08/2011 [facility] 250.90 DIABETES MELLITUS TYPE 2 WITH COMPLICATION 08/08/2011 [facility] 272.4 HYPERLIPIDEMIA 08/08/2011 [facility], FERNANDA R 401.1 ESSENTIAL HYPERTENSION BENIGN 08/08/2011 [facility], FERNANDA R 845.00 SPRAIN/STRAIN ANKLE 08/08/2011 [facility], TATYANA L 250.90 DIABETES MELLITUS TYPE 2 WITH COMPLICATION 08/08/2011 [facility], TATYANA L 272.4 HYPERLIPIDEMIA 08/08/2011 [facility], TATYANA L 401.1 ESSENTIAL HYPERTENSION BENIGN 08/08/2011 [facility], TATYANA L 845.00 SPRAIN/STRAIN ANKLE 08/08/2011 SIMPSON DO, NELI K 250.90 DIABETES MELLITUS TYPE 2 WITH COMPLICATION 08/08/2011 SIMPSON DO, NELI K 272.4 HYPERLIPIDEMIA 08/08/2011 SIMPSON DO, NELI K 401.1 ESSENTIAL HYPERTENSION BENIGN 08/08/2011 SIMPSON DO, NELI K 845.00 SPRAIN/STRAIN ANKLE 08/08/2011 SIMPSON DO, NELI K 250.90 DIABETES MELLITUS TYPE 2 WITH COMPLICATION 08/08/2011 SIMPSON DO, NELI K 272.4 HYPERLIPIDEMIA 08/08/2011 SIMPSON DO, NELI K 401.1 ESSENTIAL HYPERTENSION BENIGN 08/08/2011 SIMPSON DO, NELI K 845.00 SPRAIN/STRAIN ANKLE 08/08/2011 [facility], TATYANA L 250.90 DIABETES MELLITUS TYPE 2 WITH COMPLICATION 08/08/2011 [facility], TATYANA L 272.4 HYPERLIPIDEMIA 08/08/2011 [facility], TATYANA L 401.1 ESSENTIAL HYPERTENSION BENIGN 08/08/2011 [facility], TATYANA L 845.00 SPRAIN/STRAIN ANKLE 08/08/2011 [facility], JOSE S 250.90 DIABETES MELLITUS TYPE 2 WITH COMPLICATION 08/08/2011 [facility], JOSE S 272.4 HYPERLIPIDEMIA 08/08/2011 [facility], JOSE S 401.1 ESSENTIAL HYPERTENSION BENIGN 08/08/2011 [facility], JOSE S 845.00 SPRAIN/STRAIN ANKLE 08/08/2011 [facility], TATYANA L 250.90 DIABETES MELLITUS TYPE 2 WITH COMPLICATION 08/08/2011 [facility], TATYANA L 272.4 HYPERLIPIDEMIA 08/08/2011 [facility], TATYANA L 401.1 ESSENTIAL HYPERTENSION BENIGN 08/08/2011 [facility], TATYANA L 845.00 SPRAIN/STRAIN ANKLE 08/08/2011 [facility], TATYANA L 250.90 DIABETES MELLITUS TYPE 2 WITH COMPLICATION 08/08/2011 [facility], TATYANA L 272.4 HYPERLIPIDEMIA 08/08/2011 [facility], TATYANA L 401.1 ESSENTIAL HYPERTENSION BENIGN 08/08/2011 [facility], TATYANA L 845.00 SPRAIN/STRAIN ANKLE 08/08/2011 [facility], TATYANA L 250.90 DIABETES MELLITUS TYPE 2 WITH COMPLICATION 08/08/2011 [facility], TATYANA L 272.4 HYPERLIPIDEMIA 08/08/2011 [facility], TATYANA L 401.1 ESSENTIAL HYPERTENSION BENIGN 08/08/2011 [facility], TATYANA L 845.00 SPRAIN/STRAIN ANKLE 08/08/2011 [facility], JOSE S 250.90 DIABETES MELLITUS TYPE 2 WITH COMPLICATION 08/08/2011 [facility], JOSE S 272.4 HYPERLIPIDEMIA 08/08/2011 [facility], JOSE S 401.1 ESSENTIAL HYPERTENSION BENIGN 08/08/2011 [facility], JOSE S 845.00 SPRAIN/STRAIN ANKLE 08/08/2011 [facility], TATYANA L 250.90 DIABETES MELLITUS TYPE 2 WITH COMPLICATION 08/08/2011 [facility], TATYANA L 272.4 HYPERLIPIDEMIA 08/08/2011 [facility], TATYANA L 401.1 ESSENTIAL HYPERTENSION BENIGN 08/08/2011 [facility], TATYANA L 845.00 SPRAIN/STRAIN ANKLE 08/08/2011 ALICIA WALLIS, JUSTICE 250.90 DIABETES MELLITUS TYPE 2 WITH COMPLICATION 08/08/2011 ALICIA WALLIS, BETINAHAR 272.4 HYPERLIPIDEMIA 08/08/2011 ALICIA WALLIS, BETINAHAR 401.1 ESSENTIAL HYPERTENSION BENIGN 08/08/2011 ALICIA WALLIS, BASHAR 845.00 SPRAIN/STRAIN ANKLE 08/08/2011 [facility], TATYANA L 250.90 DIABETES MELLITUS TYPE 2 WITH COMPLICATION 08/08/2011 [facility], TATYANA L 272.4 HYPERLIPIDEMIA 08/08/2011 [facility], TATYANA L 401.1 ESSENTIAL HYPERTENSION BENIGN 08/08/2011 [facility], TATYANA L 845.00 SPRAIN/STRAIN ANKLE 08/14/2012 Ot 250.00 DIAB YAHAIRA WO COMPL, TYPE II OR UNSPEC TY 08/14/2012 Ot 272.4 HYPERLIPIDEMIA NEC/NOS 08/14/2012 Ot 305.1 TOBACCO USE DISORDER 08/14/2012 Ot 338.29 OTHER CHRONIC PAIN 08/14/2012 Ot 401.9 HYPERTENSION NOS 08/14/2012 Ot 719.41 JOINT PAIN- SHLDER 08/14/2012 Ot 723.1 CERVICALGIA 08/14/2012 Ot 794.31 ABNORM ELECTROCARDIOGRAM 08/14/2012 Ot 966.3 POIS- ANTICONVUL NEC/NOS 08/14/2012 Ot E849.0 ACCIDENT IN HOME 08/14/2012 Ot E950.4 SUICIDE-DRUG /MEDICIN NEC 08/14/2012 Ot V58.67 LONG-TERM ( CURRENT) USE OF INSULIN 08/15/2012 JUDY MERCER APRN 723.9 CERVICAL NECK DISORDER NOS 08/15/2012 TESSA MCKEON MD 723.9 DISORDERS OF CERVICAL REGION 08/15/2012 PATY LATHAM MD 723.9 DISORDERS OF CERVICAL REGION 08/15/2012 TESSA MCKEON MD 723.9 DISORDERS OF CERVICAL REGION 08/15/2012 PATY LATHAM MD 723.9 DISORDERS OF CERVICAL REGION 08/15/2012 723.9 DISORDERS OF CERVICAL REGION 08/15/2012 TESSA MCKEON MD 723.9 DISORDERS OF CERVICAL REGION 08/15/2012 723.9 DISORDERS OF CERVICAL REGION 08/15/2012 723.9 DISORDERS OF CERVICAL REGION 08/15/2012 723.9 DISORDERS OF CERVICAL REGION 08/15/2012 PATY LATHAM MD 723.9 DISORDERS OF CERVICAL REGION 08/15/2012 723.9 DISORDERS OF CERVICAL REGION 08/15/2012 723.9 DISORDERS OF CERVICAL REGION 08/15/2012 723.9 DISORDERS OF CERVICAL REGION 08/15/2012 723.9 DISORDERS OF CERVICAL REGION 08/15/2012 723.9 DISORDERS OF CERVICAL REGION 08/15/2012 723.9 DISORDERS OF CERVICAL REGION 08/15/2012 PATY LATHAM MD 723.9 DISORDERS OF CERVICAL REGION 08/15/2012 PATY LATHAM MD 723.9 DISORDERS OF CERVICAL REGION 08/15/2012 NELI SIMPSON DO 723.9 DISORDERS OF CERVICAL REGION 08/15/2012 TESSA MCKEON MD 723.9 DISORDERS OF CERVICAL REGION 08/15/2012 PATY LATHAM MD 723.9 DISORDERS OF CERVICAL REGION 08/15/2012 SIMPSON DO, NELI K 723.9 DISORDERS OF CERVICAL REGION 08/15/2012 SIMPSON DO, NELI K 723.9 DISORDERS OF CERVICAL REGION 08/15/2012 [facility], TATYANA L 723.9 DISORDERS OF CERVICAL REGION 08/15/2012 [facility], TATYANA L 723.9 DISORDERS OF CERVICAL REGION 08/15/2012 [facility], TATYANA L 723.9 DISORDERS OF CERVICAL REGION 08/15/2012 SIMPSON DO, NELI K 723.9 DISORDERS OF CERVICAL REGION 08/15/2012 [facility], FERNANDA R 723.9 DISORDERS OF CERVICAL REGION 08/15/2012 [facility], FERNANDA R 723.9 DISORDERS OF CERVICAL REGION 08/15/2012 [facility], TATYANA L 723.9 DISORDERS OF CERVICAL REGION 08/15/2012 SIMPSON DO, NELI K 723.9 DISORDERS OF CERVICAL REGION 08/15/2012 SIMPSON DO, NELI K 723.9 DISORDERS OF CERVICAL REGION 08/15/2012 [facility], TATYANA L 723.9 DISORDERS OF CERVICAL REGION 08/15/2012 [facility], JOSE S 723.9 DISORDERS OF CERVICAL REGION 08/15/2012 [facility], TATYANA L 723.9 DISORDERS OF CERVICAL REGION 08/15/2012 [facility], TATYANA L 723.9 DISORDERS OF CERVICAL REGION 08/15/2012 [facility], TATYANA L 723.9 DISORDERS OF CERVICAL REGION 08/15/2012 [facility], JOSE S 723.9 DISORDERS OF CERVICAL REGION 08/15/2012 [facility], TATYANA L 723.9 DISORDERS OF CERVICAL REGION 08/15/2012 ALICIA WALLIS, JUSTICE 723.9 DISORDERS OF CERVICAL REGION 08/15/2012 [facility], TATYANA L 723.9 DISORDERS OF CERVICAL REGION 09/05/2012 PATY LATHAM MD 786.05 shortness of breath 09/05/2012 TESSA MCKEON MD 786.05 shortness of breath 09/05/2012 PATY LATHAM MD 786.05 shortness of breath 09/05/2012 786.05 shortness of breath 09/05/2012 TESSA MCKEON MD 786.05 shortness of breath 09/05/2012 786.05 shortness of breath 09/05/2012 786.05 shortness of breath 09/05/2012 786.05 shortness of breath 09/05/2012 PATY LATHAM MD 786.05 shortness of breath 09/05/2012 786.05 shortness of breath 09/05/2012 786.05 shortness of breath 09/05/2012 786.05 shortness of breath 09/05/2012 786.05 shortness of breath 09/05/2012 786.05 shortness of breath 09/05/2012 786.05 shortness of breath 09/05/2012 PATY LATHAM MD 786.05 shortness of breath 09/05/2012 PATY LATHAM MD 786.05 shortness of breath 09/05/2012 SIMPSON DO, NELI K 786.05 shortness of breath 09/05/2012 TESSA MCKEON MD 786.05 shortness of breath 09/05/2012 PATY LATHAM MD 786.05 shortness of breath 09/05/2012 SIMPSON DO, NELI K 786.05 shortness of breath 09/05/2012 SIMPSON DO, NELI K 786.05 shortness of breath 09/05/2012 [facility], TATYANA L 786.05 shortness of breath 09/05/2012 [facility], TATYANA L 786.05 shortness of breath 09/05/2012 [facility], TATYANA L 786.05 shortness of breath 09/05/2012 SIMPSON DO, NELI K 786.05 shortness of breath 09/05/2012 [facility], FERNANDA R 786.05 shortness of breath 09/05/2012 [facility], FERNANDA R 786.05 shortness of breath 09/05/2012 [facility], TATYANA L 786.05 shortness of breath 09/05/2012 SIMPSON DO, NELI K 786.05 shortness of breath 09/05/2012 SIMPSON DO, NELI K 786.05 shortness of breath 09/05/2012 [facility], TATYANA L 786.05 shortness of breath 09/05/2012 [facility], JOSE S 786.05 shortness of breath 09/05/2012 [facility], TATYANA L 786.05 shortness of breath 09/05/2012 [facility], TATYANA L 786.05 shortness of breath 09/05/2012 [facility], TATYANA L 786.05 shortness of breath 09/05/2012 [facility], JOSE S 786.05 shortness of breath 09/05/2012 [facility], TATYANA L 786.05 shortness of breath 09/05/2012 ALICIA WALLIS, JUSTICE 786.05 shortness of breath 09/05/2012 [facility], TATYANA L 786.05 shortness of breath 10/21/2012 296.32 MO DEPRESSIVE RECURRENT MODERATE 10/21/2012 304.80 SA POLYSUB DEP 10/21/2012 TESSA MCKEON MD 296.32 MAJOR DEPRESSION RECURRENT MODERATE 10/21/2012 TESSA MCKEON MD 304.80 SA POLYSUB DEP 10/21/2012 296.32 MAJOR DEPRESSION RECURRENT MODERATE 10/21/2012 304.80 SA POLYSUB DEP 10/21/2012 296.32 MAJOR DEPRESSION RECURRENT MODERATE 10/21/2012 304.80 SA POLYSUB DEP 10/21/2012 296.32 MAJOR DEPRESSION RECURRENT MODERATE 10/21/2012 304.80 SA POLYSUB DEP 10/21/2012 PATY LATHAM MD 296.32 MAJOR DEPRESSION RECURRENT MODERATE 10/21/2012 PATY LATHAM MD 304.80 SA POLYSUB DEP 10/21/2012 296.32 MAJOR DEPRESSION RECURRENT MODERATE 10/21/2012 304.80 SA POLYSUB DEP 10/21/2012 296.32 MAJOR DEPRESSION RECURRENT MODERATE 10/21/2012 304.80 SA POLYSUB DEP 10/21/2012 296.32 MAJOR DEPRESSION RECURRENT MODERATE 10/21/2012 304.80 SA POLYSUB DEP 10/21/2012 296.32 MAJOR DEPRESSION RECURRENT MODERATE 10/21/2012 304.80 SA POLYSUB DEP 10/21/2012 296.32 MAJOR DEPRESSION RECURRENT MODERATE 10/21/2012 304.80 SA POLYSUB DEP 10/21/2012 296.32 MAJOR DEPRESSION RECURRENT MODERATE 10/21/2012 304.80 SA POLYSUB DEP 10/21/2012 PATY LATHAM MD 296.32 MAJOR DEPRESSION RECURRENT MODERATE 10/21/2012 PATY LATHAM MD 304.80 SA POLYSUB DEP 10/21/2012 PATY LATHAM MD 296.32 MAJOR DEPRESSION RECURRENT MODERATE 10/21/2012 PATY LATHAM MD 304.80 SA POLYSUB DEP 10/21/2012 SIMPSON DO NELI K 296.32 MAJOR DEPRESSION RECURRENT MODERATE 10/21/2012 SIMPSON DO NELI K 304.80 SA POLYSUB DEP 10/21/2012 TESSA MCKEON MD 296.32 MAJOR DEPRESSION RECURRENT MODERATE 10/21/2012 TESSA MCKEON MD 304.80 SA POLYSUB DEP 10/21/2012 PATY LATHAM MD 296.32 MAJOR DEPRESSION RECURRENT MODERATE 10/21/2012 PATY LATHAM MD 304.80 SA POLYSUB DEP 10/21/2012 SIMPSON DO NELI K 296.32 MAJOR DEPRESSION RECURRENT MODERATE 10/21/2012 SIMPSON DO NELI K 304.80 SA POLYSUB DEP 10/21/2012 SIMPSON DO NELI K 296.32 MAJOR DEPRESSION RECURRENT MODERATE 10/21/2012 SIMPSON DO NELI K 304.80 SA POLYSUB DEP 10/21/2012 [facility], TATYANA L 296.32 MAJOR DEPRESSION RECURRENT MODERATE 10/21/2012 [facility], TATYANA L 304.80 SA POLYSUB DEP 10/21/2012 [facility], TATYANA L 296.32 MAJOR DEPRESSION RECURRENT MODERATE 10/21/2012 [facility], TATYANA L 304.80 SA POLYSUB DEP 10/21/2012 [facility], TATYANA L 296.32 MAJOR DEPRESSION RECURRENT MODERATE 10/21/2012 [facility], TATYANA L 304.80 SA POLYSUB DEP 10/21/2012 [facility] DO, NELI K 296.32 MAJOR DEPRESSION RECURRENT MODERATE 10/21/2012 SIMPSON DO, NELI K 304.80 SA POLYSUB DEP 10/21/2012 [facility], FERNANDA R 296.32 MAJOR DEPRESSION RECURRENT MODERATE 10/21/2012 [facility], FERNANDA R 304.80 SA POLYSUB DEP 10/21/2012 [facility], FERNANDA R 296.32 MAJOR DEPRESSION RECURRENT MODERATE 10/21/2012 [facility], FERNANDA R 304.80 SA POLYSUB DEP 10/21/2012 [facility], TATYANA L 296.32 MAJOR DEPRESSION RECURRENT MODERATE 10/21/2012 [facility], TATYANA L 304.80 SA POLYSUB DEP 10/21/2012 [facility] DO, NELI K 296.32 MAJOR DEPRESSION RECURRENT MODERATE 10/21/2012 SIMPSON DO, NELI K 304.80 SA POLYSUB DEP 10/21/2012 SIM[facility]ON DO, NELI K 296.32 MAJOR DEPRESSION RECURRENT MODERATE 10/21/2012 SIM[facility]ON DO, NELI K 304.80 SA POLYSUB DEP 10/21/2012 [facility], TATYANA L 296.32 MAJOR DEPRESSION RECURRENT MODERATE 10/21/2012 [facility]IA[facility], TATYANA L 304.80 SA POLYSUB DEP 10/21/2012 [facility], JOSE S 296.32 MAJOR DEPRESSION RECURRENT MODERATE 10/21/2012 [facility], JOSE S 304.80 SA POLYSUB DEP 10/21/2012 [facility]IA[facility], TATYANA L 296.32 MAJOR DEPRESSION RECURRENT MODERATE 10/21/2012 [facility]IA[facility], TATYANA L 304.80 SA POLYSUB DEP 10/21/2012 [facility], TATYANA L 296.32 MAJOR DEPRESSION RECURRENT MODERATE 10/21/2012 [facility], TATYANA L 304.80 SA POLYSUB DEP 10/21/2012 [facility]IA[facility], TATYANA L 296.32 MAJOR DEPRESSION RECURRENT MODERATE 10/21/2012 [facility]IAISON, TATYANA L 304.80 SA POLYSUB DEP 10/21/2012 [facility], JOSE S 296.32 MAJOR DEPRESSION RECURRENT MODERATE 10/21/2012 [facility], JOSE S 304.80 SA POLYSUB DEP 10/21/2012 [facility], TATYANA L 296.32 MAJOR DEPRESSION RECURRENT MODERATE 10/21/2012 [facility], TATYANA L 304.80 SA POLYSUB DEP 10/21/2012 JUSTICE VARGAS MD 296.32 MAJOR DEPRESSION RECURRENT MODERATE 10/21/2012 JUSTICE VARGAS MD 304.80 SA POLYSUB DEP 10/21/2012 [facility], TATYANA L 296.32 MAJOR DEPRESSION RECURRENT MODERATE 10/21/2012 [facility]IA[facility], TATYANA L 304.80 SA POLYSUB DEP 10/28/2012 TESSA MCKEON MD 288.60 LEUKOCYTOSIS 10/28/2012 288.60 LEUKOCYTOSIS 10/28/2012 288.60 LEUKOCYTOSIS 10/28/2012 288.60 LEUKOCYTOSIS 10/28/2012 PATY LATHAM MD 288.60 LEUKOCYTOSIS 10/28/2012 288.60 LEUKOCYTOSIS 10/28/2012 288.60 LEUKOCYTOSIS 10/28/2012 288.60 LEUKOCYTOSIS 10/28/2012 288.60 LEUKOCYTOSIS 10/28/2012 288.60 LEUKOCYTOSIS 10/28/2012 288.60 LEUKOCYTOSIS 10/28/2012 PATY LATHAM MD 288.60 LEUKOCYTOSIS 10/28/2012 PATY LATHAM MD 288.60 LEUKOCYTOSIS 10/28/2012 SIMPSON DO, NELI K 288.60 LEUKOCYTOSIS 10/28/2012 TESSA MCKEON MD 288.60 LEUKOCYTOSIS 10/28/2012 PATY LATHAM MD 288.60 LEUKOCYTOSIS 10/28/2012 SIMPSON DO, NELI K 288.60 LEUKOCYTOSIS 10/28/2012 SIM[facility]ON DO, NELI K 288.60 LEUKOCYTOSIS 10/28/2012 [facility], TATYANA L 288.60 LEUKOCYTOSIS 10/28/2012 [facility]IA[facility], TATYANA L 288.60 LEUKOCYTOSIS 10/28/2012 [facility], TATYANA L 288.60 LEUKOCYTOSIS 10/28/2012 SIMPSON DO, NELI K 288.60 LEUKOCYTOSIS 10/28/2012 [facility], FERNANDA R 288.60 LEUKOCYTOSIS 10/28/2012 [facility], FERNANDA R 288.60 LEUKOCYTOSIS 10/28/2012 [facility], TATYANA L 288.60 LEUKOCYTOSIS 10/28/2012 SIMPSON DO, NELI K 288.60 LEUKOCYTOSIS 10/28/2012 SIMPSON DO, NELI K 288.60 LEUKOCYTOSIS 10/28/2012 [facility], TATYANA L 288.60 LEUKOCYTOSIS 10/28/2012 [facility], JOSE S 288.60 LEUKOCYTOSIS 10/28/2012 [facility] LIAISON, TATYANA L 288.60 LEUKOCYTOSIS 10/28/2012 [facility] LIAISON, TATYANA L 288.60 LEUKOCYTOSIS 10/28/2012 [facility] LIAISON, TATYANA L 288.60 LEUKOCYTOSIS 10/28/2012 [facility] [employer] LIAISON, JOSE S 288.60 LEUKOCYTOSIS 10/28/2012 [facility] LIAISON, TATYANA L 288.60 LEUKOCYTOSIS 10/28/2012 ALICIA WALLIS, BASCHARLEY 288.60 LEUKOCYTOSIS 10/28/2012 [facility] LIAISON, TATYANA L 288.60 LEUKOCYTOSIS 12/01/2012 NOA WALLIS, PATY Russell 466.0 ACUTE BRONCHITIS 12/01/2012 466.0 ACUTE BRONCHITIS 12/01/2012 466.0 ACUTE BRONCHITIS 12/01/2012 466.0 ACUTE BRONCHITIS 12/01/2012 466.0 ACUTE BRONCHITIS 12/01/2012 466.0 ACUTE BRONCHITIS 12/01/2012 466.0 ACUTE BRONCHITIS 12/01/2012 NOA WALLIS, PATY Russell 466.0 ACUTE BRONCHITIS 12/01/2012 PATY LATHAM MD 466.0 ACUTE BRONCHITIS 12/01/2012 SIMPSON DO, NELI K 466.0 ACUTE BRONCHITIS 12/01/2012 TESSA MCKEON MD 466.0 ACUTE BRONCHITIS 12/01/2012 PATY LATHAM MD 466.0 ACUTE BRONCHITIS 12/01/2012 SIMPSON DO, NELI K 466.0 ACUTE BRONCHITIS 12/01/2012 SIMPSON DO, NELI K 466.0 ACUTE BRONCHITIS 12/01/2012 [facility] LIAISON, TATYANA L 466.0 ACUTE BRONCHITIS 12/01/2012 [facility] LIAISON, TATYANA L 466.0 ACUTE BRONCHITIS 12/01/2012 [facility] LIAISON, TATYANA L 466.0 ACUTE BRONCHITIS 12/01/2012 SIMPSON DO, NELI K 466.0 ACUTE BRONCHITIS 12/01/2012 [facility], FERNANDA R 466.0 ACUTE BRONCHITIS 12/01/2012 [facility], FERNANDA R 466.0 ACUTE BRONCHITIS 12/01/2012 [facility] LIAISON, TATYANA L 466.0 ACUTE BRONCHITIS 12/01/2012 SIMPSON DO, NELI K 466.0 ACUTE BRONCHITIS 12/01/2012 SIMPSON DO, NELI K 466.0 ACUTE BRONCHITIS 12/01/2012 [facility] LIAISON, TATYANA L 466.0 ACUTE BRONCHITIS 12/01/2012 [facility], JOSE S 466.0 ACUTE BRONCHITIS 12/01/2012 [facility] LIAISON, TATYANA L 466.0 ACUTE BRONCHITIS 12/01/2012 [facility] LIAISON, TATYANA L 466.0 ACUTE BRONCHITIS 12/01/2012 [facility] LIAISON, TATYANA L 466.0 ACUTE BRONCHITIS 12/01/2012 [facility], JOSE S 466.0 ACUTE BRONCHITIS 12/01/2012 [facility] LIAISON, TATYANA L 466.0 ACUTE BRONCHITIS 12/01/2012 ALICIA WALLIS, JUSTICE 466.0 ACUTE BRONCHITIS 12/01/2012 [facility] LIAISON, TATYANA L 466.0 ACUTE BRONCHITIS 02/04/2013 PATY LATHAM MD Ot 722.0 CERVICAL DISC DISPLACMNT 02/26/2013 780.50 UNSPECIFIED SLEEP DISTURBANCE 02/26/2013 919.4 INSECT BITE NONVENOMOUS OF OTHER MULTIPLE AND UNSPECIFIED SITES WITHOUT INFECTION 02/26/2013 780.50 UNSPECIFIED SLEEP DISTURBANCE 02/26/2013 919.4 INSECT BITE NONVENOMOUS OF OTHER MULTIPLE AND UNSPECIFIED SITES WITHOUT INFECTION 02/26/2013 780.50 UNSPECIFIED SLEEP DISTURBANCE 02/26/2013 919.4 INSECT BITE NONVENOMOUS OF OTHER MULTIPLE AND UNSPECIFIED SITES WITHOUT INFECTION 02/26/2013 780.50 UNSPECIFIED SLEEP DISTURBANCE 02/26/2013 919.4 INSECT BITE NONVENOMOUS OF OTHER MULTIPLE AND UNSPECIFIED SITES WITHOUT INFECTION 02/26/2013 PATY LATHAM MD 780.50 UNSPECIFIED SLEEP DISTURBANCE 02/26/2013 PATY LATHAM MD 919.4 INSECT BITE NONVENOMOUS OF OTHER MULTIPLE AND UNSPECIFIED SITES WITHOUT INFECTION 02/26/2013 PATY LATHAM MD 780.50 UNSPECIFIED SLEEP DISTURBANCE 02/26/2013 PATY LATHAM MD 919.4 INSECT BITE NONVENOMOUS OF OTHER MULTIPLE AND UNSPECIFIED SITES WITHOUT INFECTION 02/26/2013 SIMPSON DO, NELI K 780.50 UNSPECIFIED SLEEP DISTURBANCE 02/26/2013 SIMPSON DO, NELI K 919.4 INSECT BITE NONVENOMOUS OF OTHER MULTIPLE AND UNSPECIFIED SITES WITHOUT INFECTION 02/26/2013 TESSA MCKEON MD 780.50 UNSPECIFIED SLEEP DISTURBANCE 02/26/2013 TESSA MCKEON MD 919.4 INSECT BITE NONVENOMOUS OF OTHER MULTIPLE AND UNSPECIFIED SITES WITHOUT INFECTION 02/26/2013 PATY LATHAM MD 780.50 UNSPECIFIED SLEEP DISTURBANCE 02/26/2013 PATY LATHAM MD 919.4 INSECT BITE NONVENOMOUS OF OTHER MULTIPLE AND UNSPECIFIED SITES WITHOUT INFECTION 02/26/2013 SIMPSON DO, NELI K 780.50 UNSPECIFIED SLEEP DISTURBANCE 02/26/2013 SIMPSON DO, NELI K 919.4 INSECT BITE NONVENOMOUS OF OTHER MULTIPLE AND UNSPECIFIED SITES WITHOUT INFECTION 02/26/2013 SIMPSON DO, NELI K 780.50 UNSPECIFIED SLEEP DISTURBANCE 02/26/2013 SIMPSON DO, NELI K 919.4 INSECT BITE NONVENOMOUS OF OTHER MULTIPLE AND UNSPECIFIED SITES WITHOUT INFECTION 02/26/2013 [facility] LIAISON, TATYANA L 780.50 UNSPECIFIED SLEEP DISTURBANCE 02/26/2013 [facility] LIAISON, TATYANA L 919.4 INSECT BITE NONVENOMOUS OF OTHER MULTIPLE AND UNSPECIFIED SITES WITHOUT INFECTION 02/26/2013 [facility] LIAISON, TATYANA L 780.50 UNSPECIFIED SLEEP DISTURBANCE 02/26/2013 [facility] LIAISON, TATYANA L 919.4 INSECT BITE NONVENOMOUS OF OTHER MULTIPLE AND UNSPECIFIED SITES WITHOUT INFECTION 02/26/2013 [facility] LIAISON, TATYANA L 780.50 UNSPECIFIED SLEEP DISTURBANCE 02/26/2013 [facility] LIAISON, TATYANA L 919.4 INSECT BITE NONVENOMOUS OF OTHER MULTIPLE AND UNSPECIFIED SITES WITHOUT INFECTION 02/26/2013 SIMPSON DO, NELI K 780.50 UNSPECIFIED SLEEP DISTURBANCE 02/26/2013 SIMPSON DO, NELI K 919.4 INSECT BITE NONVENOMOUS OF OTHER MULTIPLE AND UNSPECIFIED SITES WITHOUT INFECTION 02/26/2013 [facility], FERNANDA R 780.50 UNSPECIFIED SLEEP DISTURBANCE 02/26/2013 [facility], FERNANDA R 919.4 INSECT BITE NONVENOMOUS OF OTHER MULTIPLE AND UNSPECIFIED SITES WITHOUT INFECTION 02/26/2013 [facility], FERNANDA R 780.50 UNSPECIFIED SLEEP DISTURBANCE 02/26/2013 [facility], FERNANDA R 919.4 INSECT BITE NONVENOMOUS OF OTHER MULTIPLE AND UNSPECIFIED SITES WITHOUT INFECTION 02/26/2013 [facility], TATYANA L 780.50 UNSPECIFIED SLEEP DISTURBANCE 02/26/2013 [facility] LIAISON, TATYANA L 919.4 INSECT BITE NONVENOMOUS OF OTHER MULTIPLE AND UNSPECIFIED SITES WITHOUT INFECTION 02/26/2013 SIMPSON DO, NELI K 780.50 UNSPECIFIED SLEEP DISTURBANCE 02/26/2013 SIMPSON DO, NELI K 919.4 INSECT BITE NONVENOMOUS OF OTHER MULTIPLE AND UNSPECIFIED SITES WITHOUT INFECTION 02/26/2013 SIMPSON DO, NELI K 780.50 UNSPECIFIED SLEEP DISTURBANCE 02/26/2013 SIMPSON DO, NELI K 919.4 INSECT BITE NONVENOMOUS OF OTHER MULTIPLE AND UNSPECIFIED SITES WITHOUT INFECTION 02/26/2013 [facility] LIAISON, TATYANA L 780.50 UNSPECIFIED SLEEP DISTURBANCE 02/26/2013 [facility] LIAISON, TATYANA L 919.4 INSECT BITE NONVENOMOUS OF OTHER MULTIPLE AND UNSPECIFIED SITES WITHOUT INFECTION 02/26/2013 [facility], JOSE S 780.50 UNSPECIFIED SLEEP DISTURBANCE 02/26/2013 [facility] LIAISON, JOSE S 919.4 INSECT BITE NONVENOMOUS OF OTHER MULTIPLE AND UNSPECIFIED SITES WITHOUT INFECTION 02/26/2013 [facility] LIAISON, TATYANA L 780.50 UNSPECIFIED SLEEP DISTURBANCE 02/26/2013 [facility] LIAISON, TATYANA L 919.4 INSECT BITE NONVENOMOUS OF OTHER MULTIPLE AND UNSPECIFIED SITES WITHOUT INFECTION 02/26/2013 [facility] LIAISON, TATYANA L 780.50 UNSPECIFIED SLEEP DISTURBANCE 02/26/2013 [facility] LIAISON, TATYANA L 919.4 INSECT BITE NONVENOMOUS OF OTHER MULTIPLE AND UNSPECIFIED SITES WITHOUT INFECTION 02/26/2013 [facility] LIAISON, TATYANA L 780.50 UNSPECIFIED SLEEP DISTURBANCE 02/26/2013 [facility] LIAISON, TATYANA L 919.4 INSECT BITE NONVENOMOUS OF OTHER MULTIPLE AND UNSPECIFIED SITES WITHOUT INFECTION 02/26/2013 [facility], JOSE S 780.50 UNSPECIFIED SLEEP DISTURBANCE 02/26/2013 [facility] LIA[facility], JOSE S 919.4 INSECT BITE NONVENOMOUS OF OTHER MULTIPLE AND UNSPECIFIED SITES WITHOUT INFECTION 02/26/2013 [facility] LIAISON, TATYANA L 780.50 UNSPECIFIED SLEEP DISTURBANCE 02/26/2013 [facility] LIAISON, TATYANA L 919.4 INSECT BITE NONVENOMOUS OF OTHER MULTIPLE AND UNSPECIFIED SITES WITHOUT INFECTION 02/26/2013 JUSTICE VARGAS MD 780.50 UNSPECIFIED SLEEP DISTURBANCE 02/26/2013 JUSTICE VARGAS MD 919.4 INSECT BITE NONVENOMOUS OF OTHER MULTIPLE AND UNSPECIFIED SITES WITHOUT INFECTION 02/26/2013 MISTI TATYANA MINER L 780.50 UNSPECIFIED SLEEP DISTURBANCE 02/26/2013 JOANMAX Castellano APRNA L 919.4 INSECT BITE NONVENOMOUS OF OTHER MULTIPLE AND UNSPECIFIED SITES WITHOUT INFECTION 02/26/2013 RODRI DO JULIET David Ot 292.0 DRUG WITHDRAWAL 02/26/2013 RODRI JULIET LAGUNA Ot 782.0 SKIN SENSATION DISTURB 02/26/2013 RONA ENRIQUE MD Ot 729.5 PAIN IN LIMB 02/26/2013 RONA ENRIQUE MD Ot 781.0 ABN INVOLUN MOVEMENT NEC 02/26/2013 RONA ENRIQUE MD Ot V15.81 HX OF PAST NONCOMPLIANCE 02/26/2013 RONA ENRIQUE MD Ot V58.69 OTH MED,LT,CURRENT USE 03/31/2013 719.47 PAIN IN JOINT INVOLVING ANKLE AND FOOT 03/31/2013 719.47 PAIN IN JOINT INVOLVING ANKLE AND FOOT 03/31/2013 719.47 PAIN IN JOINT INVOLVING ANKLE AND FOOT 03/31/2013 PATY LATHAM MD 719.47 PAIN IN JOINT INVOLVING ANKLE AND FOOT 03/31/2013 PATY LATHAM MD 719.47 PAIN IN JOINT INVOLVING ANKLE AND FOOT 03/31/2013 NELI SIMPSON DO 719.47 PAIN IN JOINT INVOLVING ANKLE AND FOOT 03/31/2013 TESSA MCKEON MD 719.47 PAIN IN JOINT INVOLVING ANKLE AND FOOT 03/31/2013 PATY LATHAM MD 719.47 PAIN IN JOINT INVOLVING ANKLE AND FOOT 03/31/2013 NELI SIMPSON DO 719.47 PAIN IN JOINT INVOLVING ANKLE AND FOOT 03/31/2013 NELI SIMPSON DO 719.47 PAIN IN JOINT INVOLVING ANKLE AND FOOT 03/31/2013 TATYANA CHAPPELL APRN 719.47 PAIN IN JOINT INVOLVING ANKLE AND FOOT 03/31/2013 MAX CHAPPELL APRNA L 719.47 PAIN IN JOINT INVOLVING ANKLE AND FOOT 03/31/2013 MAX CHAPPELL APRNA L 719.47 PAIN IN JOINT INVOLVING ANKLE AND FOOT 03/31/2013 NELI SIMPSON DO 719.47 PAIN IN JOINT INVOLVING ANKLE AND FOOT 03/31/2013 [facility], FERNANDA R 719.47 PAIN IN JOINT INVOLVING ANKLE AND FOOT 03/31/2013 [facility], FERNANDA R 719.47 PAIN IN JOINT INVOLVING ANKLE AND FOOT 03/31/2013 [facility] LIAISONMAX DunnA L 719.47 PAIN IN JOINT INVOLVING ANKLE AND FOOT 03/31/2013 NELI SIMPSON DO K 719.47 PAIN IN JOINT INVOLVING ANKLE AND FOOT 03/31/2013 NELI SIMPSON DO K 719.47 PAIN IN JOINT INVOLVING ANKLE AND FOOT 03/31/2013 [facility] LIAISON TATYANA L 719.47 PAIN IN JOINT INVOLVING ANKLE AND FOOT 03/31/2013 ABBEY VERDUZCO APRNNDA S 719.47 PAIN IN JOINT INVOLVING ANKLE AND FOOT 03/31/2013 [facility] LIAISONRAUDELTATYANA L 719.47 PAIN IN JOINT INVOLVING ANKLE AND FOOT 03/31/2013 JOANL SOCIAL SERVICE LIAISON TATYANA L 719.47 PAIN IN JOINT INVOLVING ANKLE AND FOOT 03/31/2013 [facility] LIAISONNATHALIA DunnTATYANA L 719.47 PAIN IN JOINT INVOLVING ANKLE AND FOOT 03/31/2013 ABBEY VERDUZCO APRNNDA S 719.47 PAIN IN JOINT INVOLVING ANKLE AND FOOT 03/31/2013 [facility] LIA[facility], TATYANA L 719.47 PAIN IN JOINT INVOLVING ANKLE AND FOOT 03/31/2013 JUSTICE VARGAS MD 719.47 PAIN IN JOINT INVOLVING ANKLE AND FOOT 03/31/2013 [facility] LIA[facility], TATYANA L 719.47 PAIN IN JOINT INVOLVING ANKLE AND FOOT 04/01/2013 799.02 HYPOXEMIA 04/01/2013 799.02 HYPOXEMIA 04/01/2013 PATY LATHAM MD 799.02 HYPOXEMIA 04/01/2013 PATY LATHAM MD 799.02 HYPOXEMIA 04/01/2013 NELI SIMPSON DO 799.02 HYPOXEMIA 04/01/2013 TESSA MCKEON MD 799.02 HYPOXEMIA 04/01/2013 PATY LATHAM MD 799.02 HYPOXEMIA 04/01/2013 NELI SIMPSON DO 799.02 HYPOXEMIA 04/01/2013 NELI SIMPSON DO K 799.02 HYPOXEMIA 04/01/2013 [facility], TATYANA L 799.02 HYPOXEMIA 04/01/2013 [facility] LIAISON, TATYANA L 799.02 HYPOXEMIA 04/01/2013 [facility] LIAISON, TATYANA L 799.02 HYPOXEMIA 04/01/2013 SIMPSON DO, NELI K 799.02 HYPOXEMIA 04/01/2013 [facility], FERNANDA R 799.02 HYPOXEMIA 04/01/2013 [facility], FERNA[facility]DA R 799.02 HYPOXEMIA 04/01/2013 [facility], TATYANA L 799.02 HYPOXEMIA 04/01/2013 SIMPSON DO, NELI K 799.02 HYPOXEMIA 04/01/2013 SIMPSON DO, NELI K 799.02 HYPOXEMIA 04/01/2013 [facility], TATYANA L 799.02 HYPOXEMIA 04/01/2013 [facility], JOSE S 799.02 HYPOXEMIA 04/01/2013 [facility]IA[facility], TATYANA L 799.02 HYPOXEMIA 04/01/2013 [facility] LIAISON, TATYANA L 799.02 HYPOXEMIA 04/01/2013 [facility] LIAISON, TATYANA L 799.02 HYPOXEMIA 04/01/2013 [facility], JOSE S 799.02 HYPOXEMIA 04/01/2013 [facility]IAISON, TATYANA L 799.02 HYPOXEMIA 04/01/2013 ALICIA WALLIS, JUSTICE 799.02 HYPOXEMIA 04/01/2013 [facility], TATYANA L 799.02 HYPOXEMIA 04/02/2013 NOA WALLIS, PATY Russell Ot 327.23 OBSTRUCTIVE SLEEP APNEA (ADULT) (PEDIATR 04/04/2013 TESSA MCKEON MD Ot 250.00 DIAB YAHAIRA WO COMPL, TYPE II OR UNSPEC TY 04/04/2013 ETSSA MCKEON MD Ot 288.60 LEUKOCYTOSIS, UNSPECIFIED 04/04/2013 TESSA MCKEON MD Ot 305.1 TOBACCO USE DISORDER 04/04/2013 TESSA MCKEON MD Ot 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 04/04/2013 TESSA MCKEON MD Ot 799.02 HYPOXEMIA 04/04/2013 TESSA MCKEON MD Ot E932.0 ADV EFF CORTICOSTEROIDS 04/04/2013 TESSA MCKEON MD Ot V58.67 LONG-TERM (CURRENT) USE OF INSULIN 06/04/2013 PATY LATHAM MD Ot 250.00 DIAB YAHAIRA WO COMPL, TYPE II OR UNSPEC TY 06/04/2013 PATY LATHAM MD Ot 272.4 HYPERLIPIDEMIA NEC/NOS 06/04/2013 PATY LATHAM MD Ot 288.60 LEUKOCYTOSIS, UNSPECIFIED 06/04/2013 PATY LATHAM MD Ot 292.0 DRUG WITHDRAWAL 06/04/2013 PATY LATHAM MD Ot 292.81 DRUG-INDUCED DELIRIUM 06/04/2013 PATY LATHAM MD Ot 304.90 DRUG DEPEND NOS-UNSPEC 06/04/2013 PATY LATHAM MD Ot 305.1 TOBACCO USE DISORDER 06/04/2013 PATY LATHAM MD Ot 338.29 OTHER CHRONIC PAIN 06/04/2013 PATY LATHAM MD Ot 401.9 HYPERTENSION NOS 06/04/2013 PATY LATHAM MD Ot 414.01 CORONARY ATHEROSCLEROSIS OF [place] CORON 06/04/2013 PATY LATHAM MD Ot 425.4 PRIM CARDIOMYOPATHY NEC 06/04/2013 PATY LATHAM MD Ot 428.0 CONGESTIVE HEART FAILURE NOS 06/04/2013 PATY LATHAM MD Ot 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 06/04/2013 PATY LATHAM MD Ot 722.6 DISC DEGENERATION NOS 06/04/2013 PATY LATHAM MD Ot 780.57 UNSPECIFIED SLEEP APNEA 06/04/2013 PATY LATHAM MD Ot 787.01 NAUSEA WITH VOMITING 06/04/2013 PATY LATHAM MD Ot 787.91 DIARRHEA 06/04/2013 PATY LATHAM MD Ot E932.0 ADV EFF CORTICOSTEROIDS 06/04/2013 PATY LATHAM MD Ot V12.59 HX-CIRCULATORY SYST DIS,NEC 06/04/2013 PATY LATHAM MD Ot V15.81 HX OF PAST NONCOMPLIANCE 06/04/2013 PATY LATHAM MD Ot V46.2 SUPPLEMENTAL OXYGEN 06/04/2013 PATY LATHAM MD Ot V58.67 LONG-TERM (CURRENT) USE OF INSULIN 06/04/2013 PATY LATHAM MD, Ot V58.69 OTH MED,LT,CURRENT USE 06/07/2013 JULIET MACE DO David Ot 558.9 NONINF GASTROENTERIT NEC 06/07/2013 JULIET MACE DO David Ot 789.00 ABDOMINAL PAIN, UNSPECIFIED SITE 06/09/2013 PATY LATHAM MD 333.94 RESTLESS LEGS SYNDROME 06/09/2013 PATY LATHAM MD 536.8 GASTROPATHY HYPERSECRETORY 06/09/2013 PATY LATHAM MD 333.94 RESTLESS LEGS SYNDROME 06/09/2013 PATY LATHAM MD 536.8 GASTROPATHY HYPERSECRETORY 06/09/2013 SIMPSON PETER LAGUNAA K 333.94 RESTLESS LEGS SYNDROME 06/09/2013 TATIANA LAGUNA NELI K 536.8 GASTROPATHY HYPERSECRETORY 06/09/2013 TESSA MCKEON MD 333.94 RESTLESS LEGS SYNDROME 06/09/2013 TESSA MCKEON MD 536.8 GASTROPATHY HYPERSECRETORY 06/09/2013 PATY LATHAM MD 333.94 RESTLESS LEGS SYNDROME 06/09/2013 PATY LATHAM MD 536.8 GASTROPATHY HYPERSECRETORY 06/09/2013 SIMPSON DO NELI K 333.94 RESTLESS LEGS SYNDROME 06/09/2013 SIMPSON DO NELI K 536.8 GASTROPATHY HYPERSECRETORY 06/09/2013 SIMPSON DO NELI K 333.94 RESTLESS LEGS SYNDROME 06/09/2013 SIMPSON DO NELI K 536.8 GASTROPATHY HYPERSECRETORY 06/09/2013 [facility] LIAISON, TATYANA L 333.94 RESTLESS LEGS SYNDROME 06/09/2013 [facility] LIAISON, TATYANA L 536.8 GASTROPATHY HYPERSECRETORY 06/09/2013 [facility] LIAISON, TATYANA L 333.94 RESTLESS LEGS SYNDROME 06/09/2013 [facility] LIAISON, TATYANA L 536.8 GASTROPATHY HYPERSECRETORY 06/09/2013 [facility] LIAISON, TATYANA L 333.94 RESTLESS LEGS SYNDROME 06/09/2013 [facility] LIAISON, TATYANA L 536.8 GASTROPATHY HYPERSECRETORY 06/09/2013 SIMPSON DO NELI K 333.94 RESTLESS LEGS SYNDROME 06/09/2013 SIMPSON DO, NELI K 536.8 GASTROPATHY HYPERSECRETORY 06/09/2013 [facility], FERNANDA R 333.94 RESTLESS LEGS SYNDROME 06/09/2013 [facility], FERNANDA R 536.8 GASTROPATHY HYPERSECRETORY 06/09/2013 [facility], FERNANDA R 333.94 RESTLESS LEGS SYNDROME 06/09/2013 [facility], FERNANDA R 536.8 GASTROPATHY HYPERSECRETORY 06/09/2013 [facility] LIAISON, TATYANA L 333.94 RESTLESS LEGS SYNDROME 06/09/2013 [facility] LIAISON, TATYANA L 536.8 GASTROPATHY HYPERSECRETORY 06/09/2013 SIMPSON DO, NELI K 333.94 RESTLESS LEGS SYNDROME 06/09/2013 SIMPSON DO, NELI K 536.8 GASTROPATHY HYPERSECRETORY 06/09/2013 SIMPSON DO, NELI K 333.94 RESTLESS LEGS SYNDROME 06/09/2013 SIMPSON DO, NELI K 536.8 GASTROPATHY HYPERSECRETORY 06/09/2013 [facility] LIAISON, TATYANA L 333.94 RESTLESS LEGS SYNDROME 06/09/2013 [facility] LIAISON, TATYANA L 536.8 GASTROPATHY HYPERSECRETORY 06/09/2013 [facility], JOSE S 333.94 RESTLESS LEGS SYNDROME 06/09/2013 [facility] LIAISON, JOSE S 536.8 GASTROPATHY HYPERSECRETORY 06/09/2013 [facility] LIAISON, TATYANA L 333.94 RESTLESS LEGS SYNDROME 06/09/2013 [facility] SERVICE LIAISON, TATYANA L 536.8 GASTROPATHY HYPERSECRETORY 06/09/2013 MADL SOCIAL SERVICE LIAISON, TATYANA L 333.94 RESTLESS LEGS SYNDROME 06/09/2013 MADL SOCIAL SERVICE LIAISON, TATYANA L 536.8 GASTROPATHY HYPERSECRETORY 06/09/2013 MADL SOCIAL SERVICE LIAISON, TATYANA L 333.94 RESTLESS LEGS SYNDROME 06/09/2013 MADL SOCIAL SERVICE LIAISON, TATYANA L 536.8 GASTROPATHY HYPERSECRETORY 06/09/2013 [facility] LIAISON, JOSE S 333.94 RESTLESS LEGS SYNDROME 06/09/2013 [facility] LIAISON, JOSE S 536.8 GASTROPATHY HYPERSECRETORY 06/09/2013 MISTI MINER, TATYANA L 333.94 RESTLESS LEGS SYNDROME 06/09/2013 MISTI MINER, TATYANA L 536.8 GASTROPATHY HYPERSECRETORY 06/09/2013 ALICIA WALLIS, JUSTICE 333.94 RESTLESS LEGS SYNDROME 06/09/2013 ALICIA WALLIS, JUSTICE 536.8 GASTROPATHY HYPERSECRETORY 06/09/2013 MISTI MINER, TATYANA L 333.94 RESTLESS LEGS SYNDROME 06/09/2013 MISTI MINER, TATYANA L 536.8 GASTROPATHY HYPERSECRETORY 10/05/2013 PETER SIMPSON DOA K Ot 250.00 DIAB YAHAIRA WO COMPL, TYPE II OR UNSPEC TY 10/05/2013 PETER SIMPSON DOA K Ot 272.4 HYPERLIPIDEMIA NEC/NOS 10/05/2013 PETER SIMPSON DOA K Ot 288.60 LEUKOCYTOSIS, UNSPECIFIED 10/05/2013 PETER SIMPSON DOA K Ot 305.1 TOBACCO USE DISORDER 10/05/2013 PETER SIMPSON DOA K Ot 401.9 HYPERTENSION NOS 10/05/2013 PETER SIMPSON DOA K Ot 414.01 CORONARY ATHEROSCLEROSIS OF [place] CORON 10/05/2013 NELI SIMPSON DO Ot 426.3 LEFT BB BLOCK NEC 10/05/2013 PETER SIMPSON DOA K Ot 428.0 CONGESTIVE HEART FAILURE NOS 10/05/2013 PETER SIMPSON DOA K Ot 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 10/05/2013 PETER SIMPSON DOA K Ot 530.81 ESOPHAGEAL REFLUX 10/05/2013 NELI SIMPSON DO K Ot 780.79 OTH MALAISE FATIGUE 10/05/2013 NELI SIMPSON DO K Ot E932.0 ADV EFF CORTICOSTEROIDS 10/23/2013 PATY LATHAM MD 516.9 UNSPECIFIED ALVEOLAR AND PARIETOALVEOLAR PNEUMONOPATHY 10/23/2013 PATY LATHAM MD 786.50 UNSPECIFIED CHEST PAIN 10/23/2013 NELI SIMPSON DO 516.9 UNSPECIFIED ALVEOLAR AND PARIETOALVEOLAR PNEUMONOPATHY 10/23/2013 NELI SIMPSON DO 786.50 UNSPECIFIED CHEST PAIN 10/23/2013 NELI SIMPSON DO 516.9 UNSPECIFIED ALVEOLAR AND PARIETOALVEOLAR PNEUMONOPATHY 10/23/2013 SIMPSON DO, NELI K 786.50 UNSPECIFIED CHEST PAIN 10/23/2013 [facility] LIAISON, TATYANA L 516.9 UNSPECIFIED ALVEOLAR AND PARIETOALVEOLAR PNEUMONOPATHY 10/23/2013 MAD[facility]IAL SERVICE LIAISON, TATYANA L 786.50 UNSPECIFIED CHEST PAIN 10/23/2013 MADL SOCIAL SERVICE LIAISON, TATYANA L 516.9 UNSPECIFIED ALVEOLAR AND PARIETOALVEOLAR PNEUMONOPATHY 10/23/2013 [facility], TATYANA L 786.50 UNSPECIFIED CHEST PAIN 10/23/2013 [facility], TATYANA L 516.9 UNSPECIFIED ALVEOLAR AND PARIETOALVEOLAR PNEUMONOPATHY 10/23/2013 [facility], TATYANA L 786.50 UNSPECIFIED CHEST PAIN 10/23/2013 SIMPSON DO, NELI K 516.9 UNSPECIFIED ALVEOLAR AND PARIETOALVEOLAR PNEUMONOPATHY 10/23/2013 SIMPSON DO, NELI K 786.50 UNSPECIFIED CHEST PAIN 10/23/2013 [facility], FERNANDA R 516.9 UNSPECIFIED ALVEOLAR AND PARIETOALVEOLAR PNEUMONOPATHY 10/23/2013 [facility], FERNANDA R 786.50 UNSPECIFIED CHEST PAIN 10/23/2013 [facility], FERNANDA R 516.9 UNSPECIFIED ALVEOLAR AND PARIETOALVEOLAR PNEUMONOPATHY 10/23/2013 [facility], FERNANDA R 786.50 UNSPECIFIED CHEST PAIN 10/23/2013 [facility], TATYANA L 516.9 UNSPECIFIED ALVEOLAR AND PARIETOALVEOLAR PNEUMONOPATHY 10/23/2013 [facility], TATYANA L 786.50 UNSPECIFIED CHEST PAIN 10/23/2013 SIMPSON DO, NELI K 516.9 UNSPECIFIED ALVEOLAR AND PARIETOALVEOLAR PNEUMONOPATHY 10/23/2013 SIMPSON DO, NELI K 786.50 UNSPECIFIED CHEST PAIN 10/23/2013 SIMPSON DO, NELI K 516.9 UNSPECIFIED ALVEOLAR AND PARIETOALVEOLAR PNEUMONOPATHY 10/23/2013 SIMPSON DO, NELI K 786.50 UNSPECIFIED CHEST PAIN 10/23/2013 [facility], TATYANA L 516.9 UNSPECIFIED ALVEOLAR AND PARIETOALVEOLAR PNEUMONOPATHY 10/23/2013 [facility], TATYANA L 786.50 UNSPECIFIED CHEST PAIN 10/23/2013 [facility], JOSE S 516.9 UNSPECIFIED ALVEOLAR AND PARIETOALVEOLAR PNEUMONOPATHY 10/23/2013 [facility], JOSE S 786.50 UNSPECIFIED CHEST PAIN 10/23/2013 [facility], TATYANA L 516.9 UNSPECIFIED ALVEOLAR AND PARIETOALVEOLAR PNEUMONOPATHY 10/23/2013 [facility], TATYANA L 786.50 UNSPECIFIED CHEST PAIN 10/23/2013 [facility], TATYANA L 516.9 UNSPECIFIED ALVEOLAR AND PARIETOALVEOLAR PNEUMONOPATHY 10/23/2013 [facility], TATYANA L 786.50 UNSPECIFIED CHEST PAIN 10/23/2013 [facility], TATYANA L 516.9 UNSPECIFIED ALVEOLAR AND PARIETOALVEOLAR PNEUMONOPATHY 10/23/2013 [facility], TATYANA L 786.50 UNSPECIFIED CHEST PAIN 10/23/2013 [facility], JOSE S 516.9 UNSPECIFIED ALVEOLAR AND PARIETOALVEOLAR PNEUMONOPATHY 10/23/2013 [facility], JOSE S 786.50 UNSPECIFIED CHEST PAIN 10/23/2013 [facility], TATYANA L 516.9 UNSPECIFIED ALVEOLAR AND PARIETOALVEOLAR PNEUMONOPATHY 10/23/2013 [facility], TATYANA L 786.50 UNSPECIFIED CHEST PAIN 10/23/2013 JUSTICE VARGAS MD 516.9 UNSPECIFIED ALVEOLAR AND PARIETOALVEOLAR PNEUMONOPATHY 10/23/2013 JUSTICE VARGAS MD 786.50 UNSPECIFIED CHEST PAIN 10/23/2013 [facility], TATYANA L 516.9 UNSPECIFIED ALVEOLAR AND PARIETOALVEOLAR PNEUMONOPATHY 10/23/2013 [facility], TATYANA L 786.50 UNSPECIFIED CHEST PAIN 11/17/2013 BRENDON PLUNKETT DO Ot 327.23 OBSTRUCTIVE SLEEP APNEA (ADULT) (PEDIATR 11/17/2013 BRENDON PLUNKETT DO Ot 401.9 HYPERTENSION NOS 11/17/2013 BRENDON PLUNKETT DO Ot 414.9 CHR ISCHEMIC HRT DIS NOS 11/17/2013 BRENDON PLUNKETT DO Ot 786.09 RESPIRATORY ABNORM NEC 12/11/2013 MAIA WALLIS, ALEXI Pace Ot 250.00 DIAB YAHAIRA WO COMPL, TYPE II OR UNSPEC TY 12/11/2013 ALEXI CARVALHO MD Ot 790.29 OTHER ABNORMAL GLUCOSE 12/11/2013 ALEXI CARVALHO MD Ot V58.67 LONG-TERM (CURRENT) USE OF INSULIN 12/15/2013 TODD DAWSON Ot 274.00 GOUTY ARTHROPATHY, UNSPECIFIED 12/15/2013 TODD DAWSON Ot 729.81 SWELLING OF LIMB 12/17/2013 SIMPSON DO, NELI K 274.00 GOUTY ARTHROPATHY UNSPECIFIED 12/17/2013 SIMPSON DO, NELI K 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 12/17/2013 SIMPSON DO, NELI K 274.00 GOUTY ARTHROPATHY UNSPECIFIED 12/17/2013 SIMPSON DO, NELI K 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 12/17/2013 [facility], TATYANA L 274.00 GOUTY ARTHROPATHY UNSPECIFIED 12/17/2013 [facility], TATYANA L 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 12/17/2013 [facility], TATYANA L 274.00 GOUTY ARTHROPATHY UNSPECIFIED 12/17/2013 [facility], TATYANA L 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 12/17/2013 [facility], TATYANA L 274.00 GOUTY ARTHROPATHY UNSPECIFIED 12/17/2013 [facility], TATYANA L 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 12/17/2013 SIMPSON DO, NELI K 274.00 GOUTY ARTHROPATHY UNSPECIFIED 12/17/2013 SIMPSON DO, NELI K 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 12/17/2013 [facility], FERNANDA R 274.00 GOUTY ARTHROPATHY UNSPECIFIED 12/17/2013 [facility], FERNANDA R 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 12/17/2013 [facility], FERNANDA R 274.00 GOUTY ARTHROPATHY UNSPECIFIED 12/17/2013 [facility] [facility] R 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 12/17/2013 [facility] SOCIAL SERVICE LIAISON, TATYANA L 274.00 GOUTY ARTHROPATHY UNSPECIFIED 12/17/2013 [facility] SOCIAL SERVICE LIAISON, TATYANA L 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 12/17/2013 SIMPSON DO, NELI K 274.00 GOUTY ARTHROPATHY UNSPECIFIED 12/17/2013 SIMPSON DO, NELI K 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 12/17/2013 SIMPSON DO, NELI K 274.00 GOUTY ARTHROPATHY UNSPECIFIED 12/17/2013 SIMPSON DO, NELI K 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 12/17/2013 [facility] SOCIAL SERVICE LIAISON, TATYANA L 274.00 GOUTY ARTHROPATHY UNSPECIFIED 12/17/2013 [facility] SOCIAL SERVICE LIAISON, TATYANA L 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 12/17/2013 [facility] LIAISON, JOSE S 274.00 GOUTY ARTHROPATHY UNSPECIFIED 12/17/2013 [facility] LIAISON, JOSE S 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 12/17/2013 MAD[facility] SOCIAL SERVICE LIAISON, TATYANA L 274.00 GOUTY ARTHROPATHY UNSPECIFIED 12/17/2013 MAD[facility] SOCIAL SERVICE LIAISON, TATYANA L 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 12/17/2013 MAD[facility] SOCIAL SERVICE LIAISON, TATYANA L 274.00 GOUTY ARTHROPATHY UNSPECIFIED 12/17/2013 MAD[facility] SOCIAL SERVICE LIAISON, TATYANA L 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 12/17/2013 [facility] SOCIAL SERVICE LIAISON, TATYANA L 274.00 GOUTY ARTHROPATHY UNSPECIFIED 12/17/2013 [facility] SOCIAL SERVICE LIAISON, TATYANA L 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 12/17/2013 [facility] LIAISON, JOSE S 274.00 GOUTY ARTHROPATHY UNSPECIFIED 12/17/2013 [facility] LIAISON, JOSE S 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 12/17/2013 MAD[facility] SOCIAL SERVICE LIAISON, TATYANA L 274.00 GOUTY ARTHROPATHY UNSPECIFIED 12/17/2013 [facility] SOCIAL SERVICE LIAISON, TATYANA L 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 12/17/2013 JUSTICE VARGAS MD 274.00 GOUTY ARTHROPATHY UNSPECIFIED 12/17/2013 JUSTICE VARGAS MD 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 12/17/2013 [facility] SERV[facility] LIAISON, TATYANA L 274.00 GOUTY ARTHROPATHY UNSPECIFIED 12/17/2013 [facility] SOCIAL SERVICE LIAISON, TATYANA L 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 12/26/2013 SIMPSON DO, NELI K 110.1 DERMATOPHYTOSIS OF NAIL 12/26/2013 SIMPSON DO NELI K 681.10 UNSPECIFIED CELLULITIS AND ABSCESS OF TOE 12/26/2013 MAD[facility] SOCIAL SERVICE LIAISON, TATYANA L 110.1 DERMATOPHYTOSIS OF NAIL 12/26/2013 M[facility] SOCIAL SERVICE LIAISON, TATYANA L 681.10 UNSPECIFIED CELLULITIS AND ABSCESS OF TOE 12/26/2013 MADL SOCIAL SERVICE LIAISON, TATYANA L 110.1 DERMATOPHYTOSIS OF NAIL 12/26/2013 MADL SOCIAL SERVICE LIAISON, TATYANA L 681.10 UNSPECIFIED CELLULITIS AND ABSCESS OF TOE 12/26/2013 MADL SOCIAL SERVICE LIAISON, TATYANA L 110.1 DERMATOPHYTOSIS OF NAIL 12/26/2013 MADL SOCIAL SERVICE LIAISON, TATYANA L 681.10 UNSPECIFIED CELLULITIS AND ABSCESS OF TOE 12/26/2013 SIMPSON DO NELI K 110.1 DERMATOPHYTOSIS OF NAIL 12/26/2013 SIMPSON DO NELI K 681.10 UNSPECIFIED CELLULITIS AND ABSCESS OF TOE 12/26/2013 [facility], [facility] R 110.1 DERMATOPHYTOSIS OF NAIL 12/26/2013 [facility], FER[facility]DA R 681.10 UNSPECIFIED CELLULITIS AND ABSCESS OF TOE 12/26/2013 [facility], [facility] R 110.1 DERMATOPHYTOSIS OF NAIL 12/26/2013 [facility], [facility] R 681.10 UNSPECIFIED CELLULITIS AND ABSCESS OF TOE 12/26/2013 MAD[facility] SOCIAL SERVICE LIAISON, TATYANA L 110.1 DERMATOPHYTOSIS OF NAIL 12/26/2013 MADL SOCIAL SERVICE LIAISON, TATYANA L 681.10 UNSPECIFIED CELLULITIS AND ABSCESS OF TOE 12/26/2013 SIMPSON DO, NELI K 110.1 DERMATOPHYTOSIS OF NAIL 12/26/2013 SIMPSON DO, NELI K 681.10 UNSPECIFIED CELLULITIS AND ABSCESS OF TOE 12/26/2013 SIMPSON DO, NELI K 110.1 DERMATOPHYTOSIS OF NAIL 12/26/2013 SIMPSON DO, NELI K 681.10 UNSPECIFIED CELLULITIS AND ABSCESS OF TOE 12/26/2013 MADL SOCIAL SERVICE LIAISON, TATYANA L 110.1 DERMATOPHYTOSIS OF NAIL 12/26/2013 MADL SOCIAL SERVICE LIAISON, TATYANA L 681.10 UNSPECIFIED CELLULITIS AND ABSCESS OF TOE 12/26/2013 JOSE VERDUZCO APRN 110.1 DERMATOPHYTOSIS OF NAIL 12/26/2013 [facility] LIAISON, JOSE S 681.10 UNSPECIFIED CELLULITIS AND ABSCESS OF TOE 12/26/2013 MADL SOCIAL SERVICE LIAISON, TATYANA L 110.1 DERMATOPHYTOSIS OF NAIL 12/26/2013 MADL SOCIAL SERVICE LIAISON, TATYANA L 681.10 UNSPECIFIED CELLULITIS AND ABSCESS OF TOE 12/26/2013 MADL SOCIAL SERVICE LIAISON, TATYANA L 110.1 DERMATOPHYTOSIS OF NAIL 12/26/2013 MADL SOCIAL SERVICE LIAISON, TATYANA L 681.10 UNSPECIFIED CELLULITIS AND ABSCESS OF TOE 12/26/2013 MADL SOCIAL SERVICE LIAISON, TATYANA L 110.1 DERMATOPHYTOSIS OF NAIL 12/26/2013 MADL SOCIAL SERVICE LIAISON, TATYANA L 681.10 UNSPECIFIED CELLULITIS AND ABSCESS OF TOE 12/26/2013 LUBA MINER JOSE S 110.1 DERMATOPHYTOSIS OF NAIL 12/26/2013 LUBA ISIDRA, JOSE S 681.10 UNSPECIFIED CELLULITIS AND ABSCESS OF TOE 12/26/2013 JOANL SOCIAL SERVICE LIAISON, TATYANA L 110.1 DERMATOPHYTOSIS OF NAIL 12/26/2013 MADL SOCIAL SERVICE LIAISON, TATYANA L 681.10 UNSPECIFIED CELLULITIS AND ABSCESS OF TOE 12/26/2013 JUSTICE VARGAS MD 110.1 DERMATOPHYTOSIS OF NAIL 12/26/2013 JUSTICE VARGAS MD 681.10 UNSPECIFIED CELLULITIS AND ABSCESS OF TOE 12/26/2013 MAD[facility] SOCIAL SERVICE LIAISON, TATYANA L 110.1 DERMATOPHYTOSIS OF NAIL 12/26/2013 JOANL SOCIAL SERVICE LIAISON, TATYANA L 681.10 UNSPECIFIED CELLULITIS AND ABSCESS OF TOE 01/20/2014 BRENDON PLUNKETT DO Ot 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 02/01/2014 [facility] SOCIAL SERVICE LIAISON, TATYANA L 250.80 DIABETES WITH OTHER SPECIFIED MANIFESTATIONS TYPE II OR UNSPECIFIED TYPE NOT STATED UNCONTROLLED 02/01/2014 [facility] SOCIAL SERVICE LIAISON, TATYANA L 250.80 DIABETES WITH OTHER SPECIFIED MANIFESTATIONS TYPE II OR UNSPECIFIED TYPE NOT STATED UNCONTROLLED 02/01/2014 [facility] SERVICE LIAISON, TATYANA L 250.80 DIABETES WITH OTHER SPECIFIED MANIFESTATIONS TYPE II OR UNSPECIFIED TYPE NOT STATED UNCONTROLLED 02/01/2014 SIMPSON DO, NELI K 250.80 DIABETES WITH OTHER SPECIFIED MANIFESTATIONS TYPE II OR UNSPECIFIED TYPE NOT STATED UNCONTROLLED 02/01/2014 [facility], FERNA[facility]DA R 250.80 DIABETES WITH OTHER SPECIFIED MANIFESTATIONS TYPE II OR UNSPECIFIED TYPE NOT STATED UNCONTROLLED 02/01/2014 [facility], FERNA[facility]DA R 250.80 DIABETES WITH OTHER SPECIFIED MANIFESTATIONS TYPE II OR UNSPECIFIED TYPE NOT STATED UNCONTROLLED 02/01/2014 [facility] LIAISON, TATYANA L 250.80 DIABETES WITH OTHER SPECIFIED MANIFESTATIONS TYPE II OR UNSPECIFIED TYPE NOT STATED UNCONTROLLED 02/01/2014 NELI SIMPSON DO K 250.80 DIABETES WITH OTHER SPECIFIED MANIFESTATIONS TYPE II OR UNSPECIFIED TYPE NOT STATED UNCONTROLLED 02/01/2014 NELI SIMPSON DO K 250.80 DIABETES WITH OTHER SPECIFIED MANIFESTATIONS TYPE II OR UNSPECIFIED TYPE NOT STATED UNCONTROLLED 02/01/2014 [facility] LIAISON, TATYANA L 250.80 DIABETES WITH OTHER SPECIFIED MANIFESTATIONS TYPE II OR UNSPECIFIED TYPE NOT STATED UNCONTROLLED 02/01/2014 ABBEY VERDUZCO APRNNDA S 250.80 DIABETES WITH OTHER SPECIFIED MANIFESTATIONS TYPE II OR UNSPECIFIED TYPE NOT STATED UNCONTROLLED 02/01/2014 [facility] SERV[facility] LIAISON, TATYANA L 250.80 DIABETES WITH OTHER SPECIFIED MANIFESTATIONS TYPE II OR UNSPECIFIED TYPE NOT STATED UNCONTROLLED 02/01/2014 [facility] LIAISON, TATYANA L 250.80 DIABETES WITH OTHER SPECIFIED MANIFESTATIONS TYPE II OR UNSPECIFIED TYPE NOT STATED UNCONTROLLED 02/01/2014 [facility] LIAISON, TATYANA L 250.80 DIABETES WITH OTHER SPECIFIED MANIFESTATIONS TYPE II OR UNSPECIFIED TYPE NOT STATED UNCONTROLLED 02/01/2014 LUBA MINER JOSE S 250.80 DIABETES WITH OTHER SPECIFIED MANIFESTATIONS TYPE II OR UNSPECIFIED TYPE NOT STATED UNCONTROLLED 02/01/2014 [facility]IAL SERVICE LIAISON, TATYANA L 250.80 DIABETES WITH OTHER SPECIFIED MANIFESTATIONS TYPE II OR UNSPECIFIED TYPE NOT STATED UNCONTROLLED 02/01/2014 JUSTICE VARGAS MD 250.80 DIABETES WITH OTHER SPECIFIED MANIFESTATIONS TYPE II OR UNSPECIFIED TYPE NOT STATED UNCONTROLLED 02/01/2014 [facility] SOCIAL SERVICE LIAISON, TATYANA L 250.80 DIABETES WITH OTHER SPECIFIED MANIFESTATIONS TYPE II OR UNSPECIFIED TYPE NOT STATED UNCONTROLLED 02/25/2014 MAX CHAPPELLA L CASTING SUPERVISOR Ot 250.80 DIAB W OTH SPEC MANIFEST, TYPE II OR UNS 02/25/2014 MADL, TATYANA L [facility] Ot 707.10 ULCER OF LOWER LIMB NOS 03/05/2014 SIMPSON DO, NELI K 356.9 NEUROPATHY 03/05/2014 SIMPSON DO, NELI K 707.15 ULCER-FOOT/TOES 03/05/2014 [facility], FERNANDA R 356.9 NEUROPATHY 03/05/2014 [facility], [facility] R 707.15 ULCER-FOOT/TOES 03/05/2014 [facility], [facility] R 356.9 NEUROPATHY 03/05/2014 [facility], [facility] R 707.15 ULCER-FOOT/TOES 03/05/2014 [facility] LIAISON, TATYANA L 356.9 NEUROPATHY 03/05/2014 [facility] SOCIAL SERVICE LIAISON, TATYANA L 707.15 ULCER-FOOT/TOES 03/05/2014 SIMPSON DO, NELI K 356.9 NEUROPATHY 03/05/2014 SIMPSON DO, NELI K 707.15 ULCER-FOOT/TOES 03/05/2014 SIMPSON DO NELI K 356.9 NEUROPATHY 03/05/2014 SIMPSON DO NELI K 707.15 ULCER-FOOT/TOES 03/05/2014 MADL SOCIAL SERVICE LIAISON, TATYANA L 356.9 NEUROPATHY 03/05/2014 MADL SOCIAL SERVICE LIAISON, TATYANA L 707.15 ULCER-FOOT/TOES 03/05/2014 [facility] SOCIAL SERVICE LIAISON, JOSE S 356.9 NEUROPATHY 03/05/2014 LUBA SOCIAL SERVICE LIAISON, JOSE S 707.15 ULCER-FOOT/TOES 03/05/2014 MADL SOCIAL SERVICE LIAISON, TATYANA L 356.9 NEUROPATHY 03/05/2014 MADL SOCIAL SERVICE LIAISON, TATYANA L 707.15 ULCER-FOOT/TOES 03/05/2014 MAD[facility] SOCIAL SERVICE LIAISON, TATYANA L 356.9 NEUROPATHY 03/05/2014 MADL SOCIAL SERVICE LIAISON, TATYANA L 707.15 ULCER-FOOT/TOES 03/05/2014 MADL SOCIAL SERVICE LIAISON, TATYANA L 356.9 NEUROPATHY 03/05/2014 MADL SOCIAL SERVICE LIAISON, TATYANA L 707.15 ULCER-FOOT/TOES 03/05/2014 [facility] SERV[facility] LIAISON, JOSE S 356.9 NEUROPATHY 03/05/2014 [facility] SOCIAL SERVICE LIAISON, JOSE S 707.15 ULCER-FOOT/TOES 03/05/2014 [facility] SERV[facility] LIAISON, TATYANA L 356.9 NEUROPATHY 03/05/2014 MIST[facility] SOCIAL SERVICE LIAISON, TATYANA L 707.15 ULCER-FOOT/TOES 03/05/2014 JUSTICE VARGAS MD 356.9 NEUROPATHY 03/05/2014 JUSTICE VARGAS MD 707.15 ULCER-FOOT/TOES 03/05/2014 [facility] LIAISON, TATYANA L 356.9 NEUROPATHY 03/05/2014 MISTI SOCIAL SERVICE LIAISON, TATYANA L 707.15 ULCER-FOOT/TOES 03/12/2014 [facility], [facility] R 300.4 MO DYSTHYMIC DISORDER 03/12/2014 [facility], [facility] R 300.4 MO DYSTHYMIC DISORDER 03/12/2014 [facility] LIAISON, TATYANA L 300.4 MO DYSTHYMIC DISORDER 03/12/2014 SIMPSON DO NELI K 300.4 MO DYSTHYMIC DISORDER 03/12/2014 SIMPSON DO NELI K 300.4 MO DYSTHYMIC DISORDER 03/12/2014 [facility]AD[facility] SOCIAL SERVICE LIAISON, TATYANA L 300.4 MO DYSTHYMIC DISORDER 03/12/2014 LUBA MINER JOSE S 300.4 MO DYSTHYMIC DISORDER 03/12/2014 MADGray SOCIAL SERVICE LIAISON, TATYANA L 300.4 MO DYSTHYMIC DISORDER 03/12/2014 MIST[facility]IAL SERVICE LIAISON, TATYANA L 300.4 MO DYSTHYMIC DISORDER 03/12/2014 MADGray SOCIAL SERVICE LIAISON, TATYANA L 300.4 MO DYSTHYMIC DISORDER 03/12/2014 ABBEY VERDUZCO APRNNDA S 300.4 MO DYSTHYMIC DISORDER 03/12/2014 [facility] TATYANA L 300.4 MO DYSTHYMIC DISORDER 03/12/2014 JUSTICE VARGAS MD 300.4 MO DYSTHYMIC DISORDER 03/12/2014 [facility] LIAISON, TATYANA L 300.4 MO DYSTHYMIC DISORDER 03/12/2014 JULIET MACE DO Ot 250.00 DIAB YAHAIRA WO COMPL, TYPE II OR UNSPEC TY 03/12/2014 JULIET MACE DO Ot 298.9 PSYCHOSIS NOS 03/12/2014 JULIET MACE DO Ot V58.67 LONG-TERM (CURRENT) USE OF INSULIN 03/12/2014 JULIET MACE DO Ot V58.69 OT MED,LT,CURRENT USE 04/09/2014 JOANL SOCIAL SERVICE LIAISON, TATYANA L 300.00 ANXIETY UNSPEC 04/09/2014 PETER SIMPSON DOA K 300.00 ANXIETY UNSPEC 04/09/2014 PETER SIMPSON DOA K 300.00 ANXIETY UNSPEC 04/09/2014 MAD[facility] SOCIAL SERVICE LIAISON, TATYANA L 300.00 ANXIETY UNSPEC 04/09/2014 [facility] SERV[facility] LIAISON, JOSE S 300.00 ANXIETY UNSPEC 04/09/2014 MADL SOCIAL SERVICE LIAISON, TATYANA L 300.00 ANXIETY UNSPEC 04/09/2014 MADL SOCIAL SERVICE LIAISON, TATYANA L 300.00 ANXIETY UNSPEC 04/09/2014 MADL SOCIAL SERVICE LIAISON, TATYANA L 300.00 ANXIETY UNSPEC 04/09/2014 [facility] SOCIAL SERVICE LIAISON, JOSE S 300.00 ANXIETY UNSPEC 04/09/2014 MADL SOCIAL SERVICE LIAISON, TATYANA L 300.00 ANXIETY UNSPEC 04/09/2014 JUSTICE VARGAS MD 300.00 ANXIETY UNSPEC 04/09/2014 MAD[facility] SOCIAL SERVICE LIAISON, TATYANA L 300.00 ANXIETY UNSPEC 04/11/2014 MIKE WALLIS, TESSA Zhang Ot 250.00 DIAB YAHAIRA WO COMPL, TYPE II OR UNSPEC TY 04/11/2014 MIKE WALLIS, TESSA Zhang Ot 272.4 HYPERLIPIDEMIA NEC/NOS 04/11/2014 TESSA MCKEON MD Ot 305.20 CANNABIS ABUSE-UNSPEC 04/11/2014 TESSA MCKEON MD Ot 401.9 HYPERTENSION NOS 04/11/2014 MIKE WALLIS, TESSA Zhang Ot 780.09 OTHER ALTERATION OF CONSCIOUSNESS 04/11/2014 TESSA MCKEON MD Ot 965.8 POIS-ANALGES/ANTIPYR NEC 04/11/2014 TESSA MCKEON MD Ot 969.4 POIS-BENZODIAZEPINE TAVAREZ 04/11/2014 TESSA MCKEON MD Ot E950.0 SUICIDE-ANALGESICS 04/11/2014 TESSA MCKEON MD Ot 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 04/11/2014 TESSA MCKEON MD Ot V15.82 HISTORY OF TOBACCO USE 05/12/2014 NELI SIMPSON DO K 303.90 ALCOHOLISM 05/12/2014 PETER SIMPSON DOA K 304.90 UNSPECIFIED DRUG DEPENDENCE UNSPECIFIED USE 05/12/2014 SIMPSON DO, NELI K 607.84 IMPOTENCE OF ORGANIC ORIGIN 05/12/2014 SIMPSON DO, NELI K 303.90 ALCOHOLISM 05/12/2014 SIMPSON DO, NELI K 304.90 UNSPECIFIED DRUG DEPENDENCE UNSPECIFIED USE 05/12/2014 SIMPSON DO, NELI K 607.84 IMPOTENCE OF ORGANIC ORIGIN 05/12/2014 [facility] SOCIAL SERVICE LIAISON, TATYANA L 303.90 ALCOHOLISM 05/12/2014 MADL SOCIAL SERVICE LIAISON, TATYANA L 304.90 UNSPECIFIED DRUG DEPENDENCE UNSPECIFIED USE 05/12/2014 MADL SOCIAL SERVICE LIAISON, TATYANA L 607.84 IMPOTENCE OF ORGANIC ORIGIN 05/12/2014 [facility] LIAISON, JOSE S 303.90 ALCOHOLISM 05/12/2014 [facility] SOCIAL SERVICE LIAISON, JOSE S 304.90 UNSPECIFIED DRUG DEPENDENCE UNSPECIFIED USE 05/12/2014 LUBA MINER JOSE S 607.84 IMPOTENCE OF ORGANIC ORIGIN 05/12/2014 MADL SOCIAL SERVICE LIAISON, TATYANA L 303.90 ALCOHOLISM 05/12/2014 MADL SOCIAL SERVICE LIAISON, TATYANA L 304.90 UNSPECIFIED DRUG DEPENDENCE UNSPECIFIED USE 05/12/2014 MADL SOCIAL SERVICE LIAISON, TATYANA L 607.84 IMPOTENCE OF ORGANIC ORIGIN 05/12/2014 MADL SOCIAL SERVICE LIAISON, TATYANA L 303.90 ALCOHOLISM 05/12/2014 MADL SOCIAL SERVICE LIAISON, TATYANA L 304.90 UNSPECIFIED DRUG DEPENDENCE UNSPECIFIED USE 05/12/2014 MADL SOCIAL SERVICE LIAISON, TATYANA L 607.84 IMPOTENCE OF ORGANIC ORIGIN 05/12/2014 MADL SOCIAL SERVICE LIAISON, TATYANA L 303.90 ALCOHOLISM 05/12/2014 MADL SOCIAL SERVICE LIAISON, TATYANA L 304.90 UNSPECIFIED DRUG DEPENDENCE UNSPECIFIED USE 05/12/2014 MADL SOCIAL SERVICE LIAISON, TATYANA L 607.84 IMPOTENCE OF ORGANIC ORIGIN 05/12/2014 [facility] SOCIAL SERVICE LIAISON JOSE S 303.90 ALCOHOLISM 05/12/2014 LUBA SOCIAL SERVICE LIAISON JOSE S 304.90 UNSPECIFIED DRUG DEPENDENCE UNSPECIFIED USE 05/12/2014 [facility] SOCIAL SERVICE LIAISON JOSE S 607.84 IMPOTENCE OF ORGANIC ORIGIN 05/12/2014 MADL SOCIAL SERVICE LIAISON, TATYANA L 303.90 ALCOHOLISM 05/12/2014 MADL SOCIAL SERVICE LIAISON, TATYANA L 304.90 UNSPECIFIED DRUG DEPENDENCE UNSPECIFIED USE 05/12/2014 MADL SOCIAL SERVICE LIAISON, TATYANA L 607.84 IMPOTENCE OF ORGANIC ORIGIN 05/12/2014 ALICIA WALLIS, BASHAR 303.90 ALCOHOLISM 05/12/2014 ALICIA WALLIS, BETINAHAR 304.90 UNSPECIFIED DRUG DEPENDENCE UNSPECIFIED USE 05/12/2014 ALICIA WALLIS, BASHAR 607.84 IMPOTENCE OF ORGANIC ORIGIN 05/12/2014 MADL SOCIAL SERVICE LIAISON, TATYANA L 303.90 ALCOHOLISM 05/12/2014 MADL SOCIAL SERVICE LIAISON, TATYANA L 304.90 UNSPECIFIED DRUG DEPENDENCE UNSPECIFIED USE 05/12/2014 MADL SOCIAL SERVICE LIAISON, TATYANA L 607.84 IMPOTENCE OF ORGANIC ORIGIN 06/22/2014 [facility] LIAISON, JOSE S 276.51 DEHYDRATION 06/22/2014 [facility]IAL SERV[facility] LIAISON, JOSE S 787.91 DIARRHEA 06/22/2014 M[facility] SOCIAL SERVICE LIAISON, TATYANA L 276.51 DEHYDRATION 06/22/2014 MADL SOCIAL SERVICE LIAISON, TATYANA L 787.91 DIARRHEA 06/22/2014 MADL SOCIAL SERVICE LIAISON, TATYANA L 276.51 DEHYDRATION 06/22/2014 MADL SOCIAL SERVICE LIAISON, TATYANA L 787.91 DIARRHEA 06/22/2014 MADL SOCIAL SERVICE LIAISON, TATYANA L 276.51 DEHYDRATION 06/22/2014 MADL SOCIAL SERVICE LIAISON, TATYANA L 787.91 DIARRHEA 06/22/2014 [facility] LIAISON, JOSE S 276.51 DEHYDRATION 06/22/2014 [facility] SOCIAL SERVICE LIAISON, JOSE S 787.91 DIARRHEA 06/22/2014 MAD[facility] SOCIAL SERVICE LIAISON, TATYANA L 276.51 DEHYDRATION 06/22/2014 MADL SOCIAL SERVICE LIAISON, TATYANA L 787.91 DIARRHEA 06/22/2014 ALICIA WALLIS, BASHAR 276.51 DEHYDRATION 06/22/2014 ALICIA WALLIS, BASHAR 787.91 DIARRHEA 06/22/2014 MAD[facility] SOCIAL SERVICE LIAISON, TATYANA L 276.51 DEHYDRATION 06/22/2014 MADL SOCIAL SERVICE LIAISON, TATYANA L 787.91 DIARRHEA 06/29/2014 MADL SOCIAL SERVICE LIAISON, TATYANA L 787.99 OTHER SYMPTOMS INVOLVING DIGESTIVE SYSTEM 06/29/2014 MADL SOCIAL SERVICE LIAISON, TATYANA L 787.99 OTHER SYMPTOMS INVOLVING DIGESTIVE SYSTEM 06/29/2014 MADL SOCIAL SERVICE LIAISON, TATYANA L 787.99 OTHER SYMPTOMS INVOLVING DIGESTIVE SYSTEM 06/29/2014 [facility] SOCIAL SERVICE LIAISON, JOSE S 787.99 OTHER SYMPTOMS INVOLVING DIGESTIVE SYSTEM 06/29/2014 MADL SOCIAL SERVICE LIAISON, TATYANA L 787.99 OTHER SYMPTOMS INVOLVING DIGESTIVE SYSTEM 06/29/2014 JUSTICE VARGAS MD 787.99 OTHER SYMPTOMS INVOLVING DIGESTIVE SYSTEM 06/29/2014 MADL SOCIAL SERVICE LIAISON, TATYANA L 787.99 OTHER SYMPTOMS INVOLVING DIGESTIVE SYSTEM 07/14/2014 MADL SOCIAL SERVICE LIAISON, TATYANA L 302.72 PSYCHOSEXUAL DYSFUNCTION WITH INHIBITED SEXUAL EXCITEMENT 07/14/2014 MADL SOCIAL SERVICE LIAISON, TATYANA L V04.81 FLU SHOT 07/14/2014 [facility] SOC[facility] SERV[facility] LIAISON, JOSE S 302.72 PSYCHOSEXUAL DYSFUNCTION WITH INHIBITED SEXUAL EXCITEMENT 07/14/2014 [facility] SOCIAL SERVICE LIAISON, JOSE S V04.81 FLU SHOT 07/14/2014 MADL SOCIAL SERVICE LIAISON, TATYANA L 302.72 PSYCHOSEXUAL DYSFUNCTION WITH INHIBITED SEXUAL EXCITEMENT 07/14/2014 MADL SOCIAL SERVICE LIAISON, TATYANA L V04.81 FLU SHOT 07/14/2014 JUSTICE VARGAS MD 302.72 PSYCHOSEXUAL DYSFUNCTION WITH INHIBITED SEXUAL EXCITEMENT 07/14/2014 JUSTICE VARGAS MD V04.81 FLU SHOT 07/14/2014 MADL SOCIAL SERVICE LIAISON, TATYANA L 302.72 PSYCHOSEXUAL DYSFUNCTION WITH INHIBITED SEXUAL EXCITEMENT 07/14/2014 MADL SOCIAL SERVICE LIAISON, TATYANA L V04.81 FLU SHOT 10/18/2014 MADL SOCIAL SERVICE LIAISON, TATYANA L 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 10/18/2014 MADL SOCIAL SERVICE LIAISON, TATYANA L 414.00 CORONARY ATHEROSCLEROSIS OF UNSPECIFIED TYPE OF VESSEL [place] OR GRAFT 10/18/2014 JUSTICE VARGAS MD 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 10/18/2014 JUSTICE VARGAS MD 414.00 CORONARY ATHEROSCLEROSIS OF UNSPECIFIED TYPE OF VESSEL [place] OR GRAFT 10/18/2014 JO[facility] SOCIAL SERVICE LIAISON, TATYANA L 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 10/18/2014 JOANGray SOCIAL SERVICE LIAISON, TATYANA L 414.00 CORONARY ATHEROSCLEROSIS OF UNSPECIFIED TYPE OF VESSEL [place] OR [place]RAFT 12/02/2014 JUSTICE VARGAS MD 782.2 LOCALIZED SUPERFICIAL SWELLING MASS OR LUMP 12/02/2014 TATYANA CHAPPELL APRN 782.2 LOCALIZED SUPERFICIAL SWELLING MASS OR LUMP 12/03/2014 JUSTICE VARGAS MD 401.9 HYPERTENSION, UNSPECIFIED ESSENTIAL 12/03/2014 TATYANA CHAPPELL APRN 401.9 HYPERTENSION, UNSPECIFIED ESSENTIAL 12/03/2014 IVÁN GRACE APRN Ot 719.45 JOINT PAIN-PELVIS 12/03/2014 IVÁN GRACE APRN Ot 724.3 SCIATICA 12/09/2014 JUSTICE VARGAS MD 719.45 PAIN- HIP 12/09/2014 TATYANA CHAPPELL APRN 719.45 PAIN- HIP 12/20/2014 MISTIMAXA L CASTING SUPERVISOR Ot 722.10 12/20/2014 MADGray, TATYANA L CASTING SUPERVISOR Ot 722.52 12/23/2014 Ot 782.2 01/03/2015 LILIBETH DURAN MD Ot 780.4 DIZZINESS AND GIDDINESS 01/03/2015 LILIBETH DURAN MD Ot 787.02 NAUSEA ALONE 01/10/2015 MISTI TATYANA L CASTING SUPERVISOR Ot 722.10 01/10/2015 MISTI TATYANA L CASTING SUPERVISOR Ot 722.52 01/19/2015 MONICA LANGE Ot 272.4 01/19/2015 MONICA LANGE Ot 401.9 01/19/2015 MONICA LANGE Ot 414.00 01/19/2015 MONICA LANGE Ot 786.50 01/30/2015 BRENDON PLUNKETT DO Ot 250.01 01/30/2015 BRENDON PLUNKETT DO Ot 278.00 01/30/2015 BRENDON PLUNKETT DO Ot 327.23 01/30/2015 BRENDON PLUNKETT DO Ot 426.3 01/30/2015 BRENDON PLUNKETT DO Ot 515 01/30/2015 BRENDON PLUNKETT DO Ot 516.8 01/30/2015 BRENDON PLUNKETT DO Ot 785.1 01/30/2015 ALICIA WALLIS, JUSTICE Parker Ot 250.00 01/30/2015 ALICIA WALLIS, JUSTICE Parker Ot 401.9 01/30/2015 ALICIA WALLIS, JUSTICE Parker Ot 426.3 01/30/2015 ALICIA WALLIS, JUSTICE Parker Ot 515 01/30/2015 ALICIA WALLIS, JUSTICE Parker Ot 786.50 01/30/2015 BRENDON PLUNKETT DO Ot 278.00 01/30/2015 BRENDON PLUNKETT DO Ot 327.23 01/30/2015 BRENDON PLUNKETT DO Ot 515 01/30/2015 BRENDON PLUNKETT DO Ot 786.50 01/30/2015 BRENDON PLUNKETT DO Ot 793.19 01/30/2015 JULIET MACE DO K Ot 298.9 01/30/2015 RODRI LAGUNANIURKAA K Ot 348.89 01/30/2015 MADL, TATYANA L CASTING SUPERVISOR Ot 272.4 01/30/2015 MADL, TATYANA L CASTING SUPERVISOR Ot 401.1 01/30/2015 MADL, TATYANA L CASTING SUPERVISOR Ot 414.00 01/30/2015 MADL, TATYANA L CASTING SUPERVISOR Ot 786.50 01/30/2015 Ot 782.2 01/30/2015 MONICA LANGE Ot 272.4 01/30/2015 MONICA LANGE Ot 401.9 01/30/2015 MONICA LANGE Ot 414.00 01/30/2015 MONICA LANGE Ot 786.50 01/30/2015 MADL, TATYANA L CASTING SUPERVISOR Ot 722.10 01/30/2015 MADL, TATYANA L CASTING SUPERVISOR Ot 722.52 01/30/2015 IVÁN GRACE APRN Ot 250.00 DIAB YAHAIRA WO COMPL, TYPE II OR UNSPEC TY 01/30/2015 IVÁN GRACE APRN Ot 401.9 HYPERTENSION NOS 01/30/2015 GRACE, PETER J SOCIAL SERVICE LIAISON Ot 530.81 ESOPHAGEAL REFLUX 01/30/2015 IVÁN GRACE SOCIAL SERVICE LIAISON Ot 787.91 DIARRHEA 01/30/2015 IVÁN GRACE SOCIAL SERVICE LIAISON Ot V58.67 LONG-TERM (CURRENT) USE OF INSULIN 02/20/2015 MADLTATYANA L CASTING SUPERVISOR Ot 272.4 HYPERLIPIDEMIA NEC/NOS 02/20/2015 MADL, TATYANA L CASTING SUPERVISOR Ot 401.1 BENIGN HYPERTENSION 02/20/2015 MADL, TATYANA L CASTING SUPERVISOR Ot 414.00 CORON ATHEROSCLER NOS TYPE VESSEL, NATIV 02/20/2015 MADL, TATYANA L CASTING SUPERVISOR Ot 786.50 CHEST PAIN NOS 03/01/2015 Ot 782.2 06/01/2015 TODD DAWSON Ot 723.1 CERVICALGIA 06/01/2015 TODD DAWSON Ot 723.4 BRACHIAL NEURITIS NOS 07/13/2015 LILIBETH DURAN MD Ot E11.9 TYPE 2 DIABETES MELLITUS WITHOUT COMPLIC 07/13/2015 LILIBETH DURAN MD Ot F17.211 NICOTINE DEPENDENCE, CIGARETTES, IN [place] 07/13/2015 LILIBETH DURAN MD Ot K52.9 NONINFECTIVE GASTROENTERITIS AND COLITIS 07/13/2015 LILIBETH DURAN MD Ot R10.84 GENERALIZED ABDOMINAL PAIN 07/13/2015 LILIBETH DURAN MD Ot 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 07/13/2015 BRENDON PLUNKETT DO Ot 250.01 07/13/2015 BRENDON PLUNKETT DO Ot 278.00 07/13/2015 BRENDON PLUNKETT DO Ot 327.23 07/13/2015 BRENDON PLUNKETT DO Ot 426.3 07/13/2015 BRENDON PLUNKETT DO Ot 515 07/13/2015 BRENDON PLUNKETT DO Ot 516.8 07/13/2015 BRENDON PLUNKETT DO Ot 785.1 07/13/2015 JUSTICE VARGAS MD Ot 250.00 07/13/2015 JUSTICE VARGAS MD Ot 401.9 07/13/2015 JUSTICE VARGAS MD Ot 426.3 07/13/2015 JUSTICE VARGAS MD Ot 515 07/13/2015 JUSTICE VARGAS MD Ot 786.50 07/13/2015 BRENDON PLUNKETT DO Ot 278.00 07/13/2015 BRENDON PLUNKETT DO Ot 327.23 07/13/2015 BRENDON PLUNKETT DO Ot 515 07/13/2015 BRENDON PLUNKETT DO Ot 786.50 07/13/2015 BRENDON PLUNKETT DO Ot 793.19 07/13/2015 JULIET MACE DO Ot 298.9 07/13/2015 JULIET MACE DO K Ot 348.89 07/13/2015 Ot 782.2 07/13/2015 MONICA LANGE Ot 272.4 07/13/2015 MONICA LANGE Ot 401.9 07/13/2015 MONICA LANGE Ot 414.00 07/13/2015 MONICA LANGE Ot 786.50 07/13/2015 JOANL, TATYANA L CASTING SUPERVISOR Ot 722.10 07/13/2015 MADL, TATYANA L CASTING SUPERVISOR Ot 722.52 07/13/2015 MADL, TATYANA L CASTING SUPERVISOR Ot 272.4 07/13/2015 MADL, TATYANA L CASTING SUPERVISOR Ot 401.1 07/13/2015 MADL, TATYANA L CASTING SUPERVISOR Ot 414.00 07/13/2015 MADL, TATYANA L CASTING SUPERVISOR Ot 786.50 07/22/2015 NONI CAMPBELL MD Ot K62.1 RECTAL POLYP 07/22/2015 NONI CAMPBELL MD, Ot K64.1 SECOND DEGREE HEMORRHOIDS 07/22/2015 NONI CAMPBELL MD Ot R19.4 CHANGE IN BOWEL HABIT 07/22/2015 NONI CAMPBELL MD Ot R19.7 DIARRHEA, UNSPECIFIED 07/22/2015 NONI CAMPBELL MD Ot Z80.0 FAMILY HISTORY OF MALIGNANT NEOPLASM OF 09/26/2015 NONI CAMPBELL MD Ot R10.11 10/24/2015 JUSTICE VARGAS MD Ot E11.65 TYPE 2 DIABETES MELLITUS WITH HYPERGLYCE 10/24/2015 JUSTICE VARGAS MD Ot E78.5 HYPERLIPIDEMIA, UNSPECIFIED 10/24/2015 JUSTICE VARGAS MD Ot F12.10 CANNABIS ABUSE, UNCOMPLICATED 10/24/2015 JUSTICE VARGAS MD Ot F17.210 NICOTINE DEPENDENCE, CIGARETTES, UNCOMPL 10/24/2015 JUSTICE VARGAS MD, Ot F32.9 MAJOR DEPRESSIVE DISORDER, SINGLE EPISOD 10/24/2015 JUSTICE VARGAS MD, Ot F41.9 ANXIETY DISORDER, UNSPECIFIED 10/24/2015 JUSTICE VARGAS MD Ot I10 ESSENTIAL (PRIMARY) HYPERTENSION 10/24/2015 JUSTICE VARGAS MD Ot I25.10 ATHSCL HEART DISEASE OF [place] CORONARY 10/24/2015 JUSTICE VARGAS MD, Ot J44.9 CHRONIC OBSTRUCTIVE PULMONARY DISEASE, U 10/24/2015 JUSTICE VARGAS MD, Ot K21.9 GASTRO-ESOPHAGEAL REFLUX DISEASE WITHOUT 10/24/2015 JUSTICE VARGAS MD, Ot K44.9 DIAPHRAGMATIC HERNIA WITHOUT OBSTRUCTION 10/24/2015 JUSTICE VARGAS MD, Ot R07.9 CHEST PAIN, UNSPECIFIED 10/24/2015 JUSTICE VARGAS MD, Ot 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 10/24/2015 JUSTICE VARGAS MD, Ot Z91.14 PATIENT'S OTHER NONCOMPLIANCE WITH MEDIC 01/02/2016 BRENDON PLUNKETT DO Ot 250.01 DIAB YAHAIRA WO COMPL, TYPE I [JUVENILE TYP 01/02/2016 BRENDON PLUKNETT DO Ot 278.00 OBESITY, NOS 01/02/2016 BRENDON PLUNKETT DO Ot 327.23 OBSTRUCTIVE SLEEP APNEA (ADULT) (PEDIATR 01/02/2016 BRENDON PLUNKETT DO Ot 426.3 LEFT BB BLOCK NEC 01/02/2016 BRENDON PLUNKETT DO Ot 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 01/02/2016 BRENDON PLUNKETT DO Ot 516.8 ALVEOL PNEUMONOPATHY NEC 01/02/2016 BRENDON PLUNKETT DO Ot 785.1 PALPITATIONS 01/02/2016 JUSTICE VARGAS MD Ot 250.00 DIAB YAHAIRA WO COMPL, TYPE II OR UNSPEC TY 01/02/2016 JUSTICE VARGAS MD Ot 401.9 HYPERTENSION NOS 01/02/2016 JUSTICE VARGAS MD Ot 426.3 LEFT BB BLOCK NEC 01/02/2016 JUSTICE VARGAS MD Ot 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4 HYPERLIPIDEMIA NEC/NOS 01/02/2016 MONICA LANGE Ot 401.9 HYPERTENSION NOS 01/02/2016 MONICA LANGE Ot 414.00 CORON ATHEROSCLER NOS TYPE VESSEL, NATIV 01/02/2016 MONICA LANGE Ot 786.50 CHEST PAIN NOS 01/02/2016 MADL, TATYANA L CASTING SUPERVISOR Ot 722.10 LUMBAR DISC DISPLACEMENT 01/02/2016 MADL, TATYANA L CASTING SUPERVISOR Ot 722.52 LUMB/LUMBOSAC DISC DEGEN 01/02/2016 MADL, TATYANA L CASTING SUPERVISOR Ot 272.4 HYPERLIPIDEMIA NEC/NOS 01/02/2016 MADL, TATYANA L CASTING SUPERVISOR Ot 401.1 BENIGN HYPERTENSION 01/02/2016 MADL, TATYANA L CASTING SUPERVISOR Ot 414.00 CORON ATHEROSCLER NOS TYPE VESSEL, NATIV 01/02/2016 MADL, TATYANA L CASTING SUPERVISOR Ot 786.50 CHEST PAIN NOS 01/02/2016 NONI CAMPBELL MD Ot Z01.818 ENCOUNTER FOR OTHER PREPROCEDURAL EXAMIN 01/02/2016 NONI CAMPBELL MD Ot R10.11 RIGHT UPPER QUADRANT PAIN 01/03/2016 JOANLNATHALIATATYANA L CASTING SUPERVISOR Ot M79.601 PAIN IN RIGHT ARM 01/03/2016 MISTI TATYANA L CASTING SUPERVISOR Ot R20.2 PARESTHESIA OF SKIN 02/07/2016 TATYANA CHAPPELL CASTING SUPERVISOR Ot M79.601 PAIN IN RIGHT ARM 02/07/2016 JOANTATYANA Castellano CASTING SUPERVISOR Ot R20.2 PARESTHESIA OF SKIN 03/14/2016 NINFA VU MD Ot E11.9 TYPE 2 DIABETES MELLITUS WITHOUT COMPLIC 03/14/2016 NINFA VU MD Ot G47.30 SLEEP APNEA, UNSPECIFIED 03/14/2016 NINFA VU MD Ot G57.91 UNSPECIFIED MONONEUROPATHY OF RIGHT LOWE 03/14/2016 NINFA VU MD, Ot G57.92 UNSPECIFIED MONONEUROPATHY OF LEFT LOWER 03/14/2016 NINFA VU MD, Ot I10 ESSENTIAL (PRIMARY) HYPERTENSION 03/14/2016 NINFA VU MD, Ot I95.2 HYPOTENSION DUE TO DRUGS 03/14/2016 NINFA VU MD, Ot J44.9 CHRONIC OBSTRUCTIVE PULMONARY DISEASE, U 03/14/2016 NINFA VU MD, Ot K21.9 GASTRO-ESOPHAGEAL REFLUX DISEASE WITHOUT 03/14/2016 NINFA VU MD, Ot K44.9 DIAPHRAGMATIC HERNIA WITHOUT OBSTRUCTION 03/14/2016 NINFA VU MD, Ot T46.7X5A ADVERSE EFFECT OF PERIPHERAL VASODILATOR 03/14/2016 NINFA VU MD Ot Z79.4 NURSING HOME (CURRENT) USE OF INSULIN 03/14/2016 NINFA VU MD Ot Z87.891 PERSONAL HISTORY OF NICOTINE DEPENDENCE 03/15/2016 BRENDON PLUNKETT DO Ot 250.01 DIAB YAHAIRA WO COMPL, TYPE I [JUVENILE TYP 03/15/2016 BRENDON PLUNKETT DO Ot 278.00 OBESITY, NOS 03/15/2016 BRENDON PLUNKETT DO Ot 327.23 OBSTRUCTIVE SLEEP APNEA (ADULT) (PEDIATR 03/15/2016 BRENDON PLUNKETT DO Ot 426.3 LEFT BB BLOCK NEC 03/15/2016 BRENDON PLUNKETT DO Ot 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 03/15/2016 BRENDON PLUNKETT DO Ot 516.8 ALVEOL PNEUMONOPATHY NEC 03/15/2016 BRENDON PLUNKETT DO Ot 785.1 PALPITATIONS 03/15/2016 JUSTICE VARGAS MD Ot 250.00 DIAB YAHAIRA WO COMPL, TYPE II OR UNSPEC TY 03/15/2016 JUSTICE VARGAS MD Ot 401.9 HYPERTENSION NOS 03/15/2016 JUSTICE VARGAS MD Ot 426.3 LEFT BB BLOCK NEC 03/15/2016 JUSTICE VARGAS MD Ot 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 03/15/2016 JUSTICE VARGAS MD Ot 786.50 CHEST PAIN NOS 03/15/2016 BRENDON PLUNKETT DO Ot 278.00 OBESITY, NOS 03/15/2016 BRENDON PLUNKETT DO Ot 327.23 OBSTRUCTIVE SLEEP APNEA (ADULT) (PEDIATR 03/15/2016 BRENDON PLUNKETT DO Ot 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 03/15/2016 BRENDON PLUNKETT DO Ot 786.50 CHEST PAIN NOS 03/15/2016 BRENDON PLUNKETT DO Ot 793.19 OTHER NONSPECIFIC ABNORMAL FINDING OF DEL 03/15/2016 JULIET MACE DO Ot 298.9 PSYCHOSIS NOS 03/15/2016 JULIET MACE DO Ot 348.89 OTHER CONDITIONS OF BRAIN 03/15/2016 Ot 782.2 LOCAL SUPRFICIAL SWELLNG 03/15/2016 MONICA LANGE Ot 272.4 HYPERLIPIDEMIA NEC/NOS 03/15/2016 MONICA LANGE Ot 401.9 HYPERTENSION NOS 03/15/2016 MONICA LANGE Ot 414.00 CORON ATHEROSCLER NOS TYPE VESSEL, NATIV 03/15/2016 MONICA LANGE Ot 786.50 CHEST PAIN NOS 03/15/2016 MADL, TATYANA L CASTING SUPERVISOR Ot 722.10 LUMBAR DISC DISPLACEMENT 03/15/2016 MADL, TATYANA L CASTING SUPERVISOR Ot 722.52 LUMB/LUMBOSAC DISC DEGEN 03/15/2016 MADL, TATYANA L CASTING SUPERVISOR Ot 272.4 HYPERLIPIDEMIA NEC/NOS 03/15/2016 MADL, TATYANA L CASTING SUPERVISOR Ot 401.1 BENIGN HYPERTENSION 03/15/2016 MADL, TATYANA L CASTING SUPERVISOR Ot 414.00 CORON ATHEROSCLER NOS TYPE VESSEL, NATIV 03/15/2016 MADL, TATYANA L CASTING SUPERVISOR Ot 786.50 CHEST PAIN NOS 03/15/2016 NONI CAMPBELL MD Ot Z01.818 ENCOUNTER FOR OTHER PREPROCEDURAL EXAMIN 03/15/2016 NONI CAMPBELL MD Ot R10.11 RIGHT UPPER QUADRANT PAIN 03/15/2016 TATYANA CHAPPELL Ot M79.601 PAIN IN RIGHT ARM 03/15/2016 TATYANA CHAPPELL Ot R20.2 PARESTHESIA OF SKIN 05/29/2016 BRENDON PLUNKETT DO Ot 250.01 DIAB YAHAIRA WO COMPL, TYPE I [JUVENILE TYP 05/29/2016 BRENDON PLUNKETT DO Ot 278.00 OBESITY, NOS 05/29/2016 BRENDON PLUNKETT DO Ot 327.23 OBSTRUCTIVE SLEEP APNEA (ADULT) (PEDIATR 05/29/2016 BRENDON PLUNKETT DO Ot 426.3 LEFT BB BLOCK NEC 05/29/2016 BRENDON PLUNKETT DO Ot 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 05/29/2016 BRENDON PLUNKETT DO Ot 516.8 ALVEOL PNEUMONOPATHY NEC 05/29/2016 BRENDON PLUNKETT DO Ot 785.1 PALPITATIONS 05/29/2016 JUSTICE VARGAS MD Ot 250.00 DIAB YAHAIRA WO COMPL, TYPE II OR UNSPEC TY 05/29/2016 JUSTICE VARGAS MD Ot 401.9 HYPERTENSION NOS 05/29/2016 JUSTICE VARGAS MD Ot 426.3 LEFT BB BLOCK NEC 05/29/2016 JUSTICE VARGAS MD Ot 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 05/29/2016 JUSTICE VARGAS MD Ot 786.50 CHEST PAIN NOS 05/29/2016 BRENDON PLUNKETT DO Ot 278.00 OBESITY, NOS 05/29/2016 BRENDON PLUNKETT DO Ot 327.23 OBSTRUCTIVE SLEEP APNEA (ADULT) (PEDIATR 05/29/2016 BRENDON PLUNKETT DO Ot 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 05/29/2016 BRENDON PLUNKETT DO Ot 786.50 CHEST PAIN NOS 05/29/2016 BRENDON PLUNKETT DO Ot 793.19 OTHER NONSPECIFIC ABNORMAL FINDING OF DEL 05/29/2016 JULIET MACE DO Ot 298.9 PSYCHOSIS NOS 05/29/2016 JULIET MACE DO Ot 348.89 OTHER CONDITIONS OF BRAIN 05/29/2016 Ot 782.2 LOCAL SUPRFICIAL SWELLNG 05/29/2016 MONICA LANGE Ot 272.4 HYPERLIPIDEMIA NEC/NOS 05/29/2016 MONICA LANGE Ot 401.9 HYPERTENSION NOS 05/29/2016 MONICA LANGE Ot 414.00 CORON ATHEROSCLER NOS TYPE VESSEL, NATIV 05/29/2016 MONICA LANGE Ot 786.50 CHEST PAIN NOS 05/29/2016 MADL, TATYANA L CASTING SUPERVISOR Ot 722.10 LUMBAR DISC DISPLACEMENT 05/29/2016 MADL, TATYANA L CASTING SUPERVISOR Ot 722.52 LUMB/LUMBOSAC DISC DEGEN 05/29/2016 MADL, TATYANA L CASTING SUPERVISOR Ot 272.4 HYPERLIPIDEMIA NEC/NOS 05/29/2016 MADL, TATYANA L CASTING SUPERVISOR Ot 401.1 BENIGN HYPERTENSION 05/29/2016 MADL, TATYANA L CASTING SUPERVISOR Ot 414.00 CORON ATHEROSCLER NOS TYPE VESSEL, NATIV 05/29/2016 MADL, TATYANA L CASTING SUPERVISOR Ot 786.50 CHEST PAIN NOS 05/29/2016 NONI CAMPBELL MD Ot Z01.818 ENCOUNTER FOR OTHER PREPROCEDURAL EXAMIN 05/29/2016 NONI CAMPBELL MD Ot R10.11 RIGHT UPPER QUADRANT PAIN 05/29/2016 NATHALIA CHAPPELLWNYA L CASTING SUPERVISOR Ot M79.601 PAIN IN RIGHT ARM 05/29/2016 MADGray, TATYANA L CASTING SUPERVISOR Ot R20.2 PARESTHESIA OF SKIN 05/29/2016 KIMBER WORRELL MD Ot M75.111 INCOMPLETE ROTATR-CUFF TEAR/RUPTR OF R S 05/30/2016 KIMBER WORRELL MD Ot M75.111 INCOMPLETE ROTATR-CUFF TEAR/RUPTR OF R S 06/14/2016 BRENDON PLUNKETT DO Ot R06.00 DYSPNEA, UNSPECIFIED 06/15/2016 BRENDON PLUNKETT DO Ot 250.01 DIAB YAHAIRA WO COMPL, TYPE I [JUVENILE TYP 06/15/2016 BRENDON PLUNKETT DO Ot 278.00 OBESITY, NOS 06/15/2016 BRENDON PLUNKETT DO Ot 327.23 OBSTRUCTIVE SLEEP APNEA (ADULT) (PEDIATR 06/15/2016 BRENDON PLUNKETT DO Ot 426.3 LEFT BB BLOCK NEC 06/15/2016 BRENDON PLUNKETT DO Ot 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 06/15/2016 BRENDON PLUNKETT DO Ot 516.8 ALVEOL PNEUMONOPATHY NEC 06/15/2016 BRENDON PLUNKETT DO Ot 785.1 PALPITATIONS 06/15/2016 JUSTICE VARGAS MD Ot 250.00 DIAB YAHAIRA WO COMPL, TYPE II OR UNSPEC TY 06/15/2016 JUSTICE VARGAS MD Ot 401.9 HYPERTENSION NOS 06/15/2016 JUSTICE VARGAS MD Ot 426.3 LEFT BB BLOCK NEC 06/15/2016 JUSTICE VARGAS MD Ot 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 06/15/2016 JUSTICE VARGAS MD Ot 786.50 CHEST PAIN NOS 06/15/2016 BRENDON PLUNKETT DO Ot 278.00 OBESITY, NOS 06/15/2016 BRENDON PLUNKETT DO Ot 327.23 OBSTRUCTIVE SLEEP APNEA (ADULT) (PEDIATR 06/15/2016 BRENDON PLUNKETT DO Ot 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 06/15/2016 BRENDON PLUNKETT DO Ot 786.50 CHEST PAIN NOS 06/15/2016 BRENDON PLUNKETT DO Ot 793.19 OTHER NONSPECIFIC ABNORMAL FINDING OF DEL 06/15/2016 JULIET MACE DO Ot 298.9 PSYCHOSIS NOS 06/15/2016 JULIET MACE DO Ot 348.89 OTHER CONDITIONS OF BRAIN 06/15/2016 Ot 782.2 LOCAL SUPRFICIAL SWELLNG 06/15/2016 MONICA LANGE Ot 272.4 HYPERLIPIDEMIA NEC/NOS 06/15/2016 MONICA LANGE Ot 401.9 HYPERTENSION NOS 06/15/2016 MONICA LANGE Ot 414.00 CORON ATHEROSCLER NOS TYPE VESSEL, NATIV 06/15/2016 MONICA LANGE Ot 786.50 CHEST PAIN NOS 06/15/2016 MADL, TATYANA L CASTING SUPERVISOR Ot 722.10 LUMBAR DISC DISPLACEMENT 06/15/2016 MADL, TATYANA L CASTING SUPERVISOR Ot 722.52 LUMB/LUMBOSAC DISC DEGEN 06/15/2016 MADLMAXA L CASTING SUPERVISOR Ot 272.4 HYPERLIPIDEMIA NEC/NOS 06/15/2016 MISTITATYANA CASTING SUPERVISOR Ot 401.1 BENIGN HYPERTENSION 06/15/2016 MISTINATHALIATATYANA L CASTING SUPERVISOR Ot 414.00 CORON ATHEROSCLER NOS TYPE VESSEL, NATIV 06/15/2016 MISTI TATYANA L CASTING SUPERVISOR Ot 786.50 CHEST PAIN NOS 06/15/2016 NONI CAMPBELL MD, Ot Z01.818 ENCOUNTER FOR OTHER PREPROCEDURAL EXAMIN 06/15/2016 ONNI CAMPBELL MD Ot R10.11 RIGHT UPPER QUADRANT PAIN 06/15/2016 TATYANA CHAPPELL CASTING SUPERVISOR Ot M79.601 PAIN IN RIGHT ARM 06/15/2016 TATYANA CHAPPELL CASTING SUPERVISOR Ot R20.2 PARESTHESIA OF SKIN 06/15/2016 KIMBER WORRELL MD, Ot M75.111 INCOMPLETE ROTATR-CUFF TEAR/RUPTR OF R S 06/15/2016 BRENDON PLUNKETT DO Ot R06.00 DYSPNEA, UNSPECIFIED 06/15/2016 BRENDON PLUNKETT DO Ot R06.00 DYSPNEA, UNSPECIFIED 06/20/2016 KIMBER WORRELL MD, Ot M75.111 INCOMPLETE ROTATR-CUFF TEAR/RUPTR OF R S 06/21/2016 KIMBER WORRELL MD, Ot M75.111 INCOMPLETE ROTATR-CUFF TEAR/RUPTR OF R S 06/21/2016 KIMBER WORRELL MD, Ot Z01.818 ENCOUNTER FOR OTHER PREPROCEDURAL EXAMIN 06/22/2016 KIMBER WORRELL MD, Ot M75.111 INCOMPLETE ROTATR-CUFF TEAR/RUPTR OF R S 06/22/2016 KIMBER WORRELL MD, Ot Z01.818 ENCOUNTER FOR OTHER PREPROCEDURAL EXAMIN 06/27/2016 KIMBER WORRELL MD Ot E11.9 TYPE 2 DIABETES MELLITUS WITHOUT COMPLIC 06/27/2016 KIMBER WORRELL MD, Ot E78.5 HYPERLIPIDEMIA, UNSPECIFIED 06/27/2016 KIMBER WORRELL MD, Ot F17.210 NICOTINE DEPENDENCE, CIGARETTES, UNCOMPL 06/27/2016 KIMBER WORRELL MD, Ot F32.9 MAJOR DEPRESSIVE DISORDER, SINGLE EPISOD 06/27/2016 KIMBER WORRELL MD, Ot I10 ESSENTIAL (PRIMARY) HYPERTENSION 06/27/2016 KIMBER WORRELL MD Ot M75.111 INCOMPLETE ROTATR-CUFF TEAR/RUPTR OF R S 06/27/2016 KIMBER WORRELL MD, Ot S43.431A SUPERIOR GLENOID LABRUM LESION OF RIGHT 06/27/2016 KIMBER WORRELL MD Ot Z86.73 PRSNL HX OF TIA (TIA), AND CEREB INFRC W 06/28/2016 KIMBER WORRELL MD Ot M75.111 INCOMPLETE ROTATR-CUFF TEAR/RUPTR OF R S 06/29/2016 KIMBER WORRELL MD Ot E11.9 TYPE 2 DIABETES MELLITUS WITHOUT COMPLIC 06/29/2016 KIMBER WORRELL MD Ot E78.5 HYPERLIPIDEMIA, UNSPECIFIED 06/29/2016 KIMBER WORRELL MD Ot F17.210 NICOTINE DEPENDENCE, CIGARETTES, UNCOMPL 06/29/2016 KIMBER WORRELL MD Ot F32.9 MAJOR DEPRESSIVE DISORDER, SINGLE EPISOD 06/29/2016 KIMBER WORRELL MD Ot I10 ESSENTIAL (PRIMARY) HYPERTENSION 06/29/2016 KIMBER WORRELL MD Ot M75.111 INCOMPLETE ROTATR-CUFF TEAR/RUPTR OF R S 06/29/2016 KIMBER WORRELL MD Ot S43.431A SUPERIOR GLENOID LABRUM LESION OF RIGHT 06/29/2016 KIMBER WORRELL MD Ot Z86.73 PRSNL HX OF TIA (TIA), AND CEREB INFRC W 07/05/2016 BRENDON PLUNKETT DO Ot R06.00 DYSPNEA, UNSPECIFIED 07/10/2016 KIMBER WORRELL MD Ot M25.511 PAIN IN RIGHT SHOULDER 07/10/2016 KIMBER WORRELL MD Ot Z47.89 ENCOUNTER FOR OTHER ORTHOPEDIC AFTERCARE 07/23/2016 BRENDON PLUNKETT DO Ot R06.00 DYSPNEA, UNSPECIFIED 07/31/2016 KIMBER WORRELL MD Ot M25.511 PAIN IN RIGHT SHOULDER 07/31/2016 KIMBER WORRELL MD Ot Z47.89 ENCOUNTER FOR OTHER ORTHOPEDIC AFTERCARE 08/07/2016 ADITYA APODACA APRN Ot G47.34 IDIO SLEEP RELATED NONOBSTRUCTIVE ALVEOL 08/07/2016 ADITYA APODACA APRN Ot R06.00 DYSPNEA, UNSPECIFIED 08/07/2016 CONSTANZA, ADITYA E SOCIAL SERVICE LIAISON Ot Z72.0 TOBACCO USE 08/14/2016 KIMBER WORRELL MD Ot M25.511 PAIN IN RIGHT SHOULDER 08/14/2016 KIMBER WORRELL MD Ot Z47.89 ENCOUNTER FOR OTHER ORTHOPEDIC AFTERCARE 08/15/2016 KIMBER WORRELL MD Ot M25.511 PAIN IN RIGHT SHOULDER 08/15/2016 KIMBER WORRELL MD Ot Z47.89 ENCOUNTER FOR OTHER ORTHOPEDIC AFTERCARE 08/29/2016 ADITYA APODACA SOCIAL SERVICE LIAISON Ot G47.34 IDIO SLEEP RELATED NONOBSTRUCTIVE ALVEOL 08/29/2016 ADITYA APODACA SOCIAL SERVICE LIAISON Ot R06.00 DYSPNEA, UNSPECIFIED 08/29/2016 ADITYA APODACA SOCIAL SERVICE LIAISON Ot Z72.0 TOBACCO USE 09/05/2016 ADITYA APODACA SOCIAL SERVICE LIAISON Ot G47.34 IDIO SLEEP RELATED NONOBSTRUCTIVE ALVEOL 09/05/2016 ADITYA APODACA SOCIAL SERVICE LIAISON Ot R06.00 DYSPNEA, UNSPECIFIED 09/05/2016 ADITYA APODACA APRN Ot Z72.0 TOBACCO USE 09/24/2016 RONA ENRIQUE MD Ot E11.9 TYPE 2 DIABETES MELLITUS WITHOUT COMPLIC 09/24/2016 RONA ENRIQUE MD Ot F17.210 NICOTINE DEPENDENCE, CIGARETTES, UNCOMPL 09/24/2016 RONA ENRIQUE MD Ot I10 ESSENTIAL (PRIMARY) HYPERTENSION 09/24/2016 RONA ENRIQUE MD Ot J06.9 ACUTE UPPER RESPIRATORY INFECTION, UNSPE 09/24/2016 RONA ENRIQUE MD Ot J44.9 CHRONIC OBSTRUCTIVE PULMONARY DISEASE, U 09/24/2016 RONA ENRIQUE MD Ot R05 COUGH 09/24/2016 RONA ENRIQUE MD Ot R42 DIZZINESS AND GIDDINESS 09/24/2016 RONA ENRIQUE MD Ot R91.8 OTHER NONSPECIFIC ABNORMAL FINDING OF DEL 09/24/2016 RONA ENRIQUE MD Ot Z79.4 NURSING HOME (CURRENT) USE OF INSULIN 09/24/2016 RONA ENRIQUE MD Ot 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 09/25/2016 RONA ENRIQUE MD Ot E11.9 TYPE 2 DIABETES MELLITUS WITHOUT COMPLIC 09/25/2016 RONA ENRIQUE MD Ot F17.210 NICOTINE DEPENDENCE, CIGARETTES, UNCOMPL 09/25/2016 RONA ENRIQUE MD Ot I10 ESSENTIAL (PRIMARY) HYPERTENSION 09/25/2016 RONA ENRIQUE MD Ot J06.9 ACUTE UPPER RESPIRATORY INFECTION, UNSPE 09/25/2016 RONA ENRIQUE MD Ot J44.9 CHRONIC OBSTRUCTIVE PULMONARY DISEASE, U 09/25/2016 RONA ENRIQUE MD Ot R05 COUGH 09/25/2016 RONA ENRIQUE MD Ot R42 DIZZINESS AND GIDDINESS 09/25/2016 RONA ENRIQUE MD Ot R91.8 OTHER NONSPECIFIC ABNORMAL FINDING OF DEL 09/25/2016 RONA ENRIQUE MD Ot Z79.4 NURSING HOME (CURRENT) USE OF INSULIN 09/25/2016 RONA ENRIQUE MD Ot 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 09/25/2016 RONA ENRIQUE MD Ot E11.9 TYPE 2 DIABETES MELLITUS WITHOUT COMPLIC 09/25/2016 RONA ENRIQUE MD Ot F17.210 NICOTINE DEPENDENCE, CIGARETTES, UNCOMPL 09/25/2016 RONA ENRIQUE MD Ot I10 ESSENTIAL (PRIMARY) HYPERTENSION 09/25/2016 RONA ENRIQUE MD Ot J06.9 ACUTE UPPER RESPIRATORY INFECTION, UNSPE 09/25/2016 RONA ENRIQUE MD Ot J44.9 CHRONIC OBSTRUCTIVE PULMONARY DISEASE, U 09/25/2016 RONA ENRIQUE MD Ot R05 COUGH 09/25/2016 RONA ENRIQUE MD Ot R42 DIZZINESS AND GIDDINESS 09/25/2016 RONA ENRIQUE MD Ot R91.8 OTHER NONSPECIFIC ABNORMAL FINDING OF DEL 09/25/2016 RONA ENRIQUE MD Ot Z79.4 NURSING HOME (CURRENT) USE OF INSULIN 09/25/2016 RONA ENRIQUE MD Ot 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 09/26/2016 RONA ENRIQUE MD Ot E11.9 TYPE 2 DIABETES MELLITUS WITHOUT COMPLIC 09/26/2016 RONA ENRIQUE MD Ot F17.210 NICOTINE DEPENDENCE, CIGARETTES, UNCOMPL 09/26/2016 RONA ENRIQUE MD Ot I10 ESSENTIAL (PRIMARY) HYPERTENSION 09/26/2016 RONA ENRIQUE MD Ot J06.9 ACUTE UPPER RESPIRATORY INFECTION, UNSPE 09/26/2016 RONA ENRIQUE MD Ot J44.9 CHRONIC OBSTRUCTIVE PULMONARY DISEASE, U 09/26/2016 RONA ENRIQUE MD Ot R05 COUGH 09/26/2016 RONA ENRIQUE MD Ot R42 DIZZINESS AND GIDDINESS 09/26/2016 RONA ENRIQUE MD Ot R91.8 OTHER NONSPECIFIC ABNORMAL FINDING OF DEL 09/26/2016 RONA ENRIQUE MD Ot 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 09/26/2016 RONA ENRIQUE MD Ot 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 09/30/2016 RONA ENRIQUE MD Ot E11.9 TYPE 2 DIABETES MELLITUS WITHOUT COMPLIC 09/30/2016 RONA ENRIQUE MD Ot F17.210 NICOTINE DEPENDENCE, CIGARETTES, UNCOMPL 09/30/2016 RONA ENRIQUE MD Ot I10 ESSENTIAL (PRIMARY) HYPERTENSION 09/30/2016 RONA ENRIQUE MD Ot J06.9 ACUTE UPPER RESPIRATORY INFECTION, UNSPE 09/30/2016 RONA ENRIQUE MD Ot J44.9 CHRONIC OBSTRUCTIVE PULMONARY DISEASE, U 09/30/2016 RONA ENRIQUE MD Ot R05 COUGH 09/30/2016 RONA ENRIQUE MD Ot R42 DIZZINESS AND GIDDINESS 09/30/2016 RONA ENRIQUE MD Ot R91.8 OTHER NONSPECIFIC ABNORMAL FINDING OF DEL 09/30/2016 RONA ENRIQUE MD Ot 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 09/30/2016 RONA ENRIQUE MD Ot Z79.899 OTHER NURSING HOME (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 THERAPY 11/07/2016 ADITYA APODACA APRN Ot J20.9 ACUTE BRONCHITIS, UNSPECIFIED 11/07/2016 ADITYA APODACA APRN Ot 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 DISEASE, UNSPECIF 11/07/2016 ADITYA APODACA APRN Ot R06.00 DYSPNEA, UNSPECIFIED 11/07/2016 ADITYA APODACA APRN Ot R91.1 SOLITARY PULMONARY NODULE 11/07/2016 ADITYA APODACA APRN Ot Z72.0 TOBACCO USE 11/08/2016 IVÁN GRACE APRN Ot E11.9 TYPE 2 DIABETES MELLITUS WITHOUT COMPLIC 11/08/2016 IVÁN GRACE APRN Ot F17.210 NICOTINE DEPENDENCE, CIGARETTES, UNCOMPL 11/08/2016 IVÁN GRACE APRN Ot F19.10 OTHER PSYCHOACTIVE SUBSTANCE ABUSE, UNCO 11/08/2016 IVÁN GRACE APRN Ot I10 ESSENTIAL (PRIMARY) HYPERTENSION 11/08/2016 IVÁN GRACE APRN Ot J44.9 CHRONIC OBSTRUCTIVE PULMONARY DISEASE, U 11/08/2016 IVÁN GRACE APRN Ot R26.9 UNSPECIFIED ABNORMALITIES OF GAIT AND MO 11/08/2016 IVÁN GRACE APRN Ot R47.81 SLURRED SPEECH 11/08/2016 IVÁN GRACE APRN Ot R51 HEADACHE 11/08/2016 IVÁN GRACE APRN Ot 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 11/08/2016 IVÁN GRACE APRN Ot 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 11/16/2016 IVÁN GRACE APRN Ot E11.9 TYPE 2 DIABETES MELLITUS WITHOUT COMPLIC 11/16/2016 IVÁN GRACE APRN Ot F17.210 NICOTINE DEPENDENCE, CIGARETTES, UNCOMPL 11/16/2016 IVÁN GRACE APRN Ot F19.10 OTHER PSYCHOACTIVE SUBSTANCE ABUSE, UNCO 11/16/2016 IVÁN GRACE APRN Ot I10 ESSENTIAL (PRIMARY) HYPERTENSION 11/16/2016 IVÁN GRACE APRN Ot J44.9 CHRONIC OBSTRUCTIVE PULMONARY DISEASE, U 11/16/2016 IVÁN GRACE APRN Ot R26.9 UNSPECIFIED ABNORMALITIES OF GAIT AND MO 11/16/2016 IVÁN GRACE APRN Ot R47.81 SLURRED SPEECH 11/16/2016 IVÁN GRACE APRN Ot R51 HEADACHE 11/16/2016 IVÁN GRACE APRN Ot Z79.4 NURSING HOME (CURRENT) USE OF INSULIN 11/16/2016 IVÁN GRACE APRN Ot Z79.899 OTHER NURSING HOME (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 THERAPY 11/27/2016 ADITYA APODACA APRN Ot J20.9 ACUTE BRONCHITIS, UNSPECIFIED 11/27/2016 ADITYA APODACA SOCIAL SERVICE LIAISON Ot 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 DISEASE, UNSPECIF 11/27/2016 ADITYA APODACA SOCIAL SERVICE LIAISON Ot R06.00 DYSPNEA, UNSPECIFIED 11/27/2016 ADITYA APODACA SOCIAL SERVICE LIAISON Ot R91.1 SOLITARY PULMONARY NODULE 11/27/2016 [place]STAN[place] ADITYA Cameron SOCIAL SERVICE LIAISON Ot Z72.0 TOBACCO USE 12/03/2016 [place]AN[place] ADITYA Cameron SOCIAL SERVICE LIAISON Ot J20.9 ACUTE BRONCHITIS, UNSPECIFIED 12/03/2016 CONSTAN[place] ADITYA Cameron SOCIAL SERVICE LIAISON Ot 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 DISEASE, UNSPECIF 12/03/2016 CONSTANZA, ADITYA Cameron SOCIAL SERVICE LIAISON Ot R06.00 DYSPNEA, UNSPECIFIED 12/03/2016 ADITYA APODACA SOCIAL SERVICE LIAISON Ot R91.1 SOLITARY PULMONARY NODULE 12/03/2016 CONSTANZA, ADITYA Nisha SOCIAL SERVICE LIAISON Ot Z72.0 TOBACCO USE 02/15/2017 MADL, TATYANA L CASTING SUPERVISOR Ot M48.02 SPINAL STENOSIS, CERVICAL REGION 02/15/2017 MADL, TATYANA L CASTING SUPERVISOR Ot M79.622 PAIN IN LEFT UPPER ARM 02/15/2017 MADL, TATYANA L CASTING SUPERVISOR Ot Z98.1 ARTHRODESIS STATUS 02/15/2017 MADL, TATYANA L CASTING SUPERVISOR Ot M48.02 SPINAL STENOSIS, CERVICAL REGION 02/15/2017 MADL, TATYANA L CASTING SUPERVISOR Ot M79.622 PAIN IN LEFT UPPER ARM 02/15/2017 MADL, TATYANA L CASTING SUPERVISOR Ot Z98.1 ARTHRODESIS STATUS 02/19/2017 ANAID WALLIS, KIMBER Le Ot M75.112 INCOMPLETE ROTATR-CUFF TEAR/RUPTR OF L S 03/05/2017 MADL, TATYANA L CASTING SUPERVISOR Ot M48.02 SPINAL STENOSIS, CERVICAL REGION 03/05/2017 MADL, TATYANA L CASTING SUPERVISOR Ot M79.622 PAIN IN LEFT UPPER ARM 03/05/2017 MADL, TATYANA L CASTING SUPERVISOR Ot Z98.1 ARTHRODESIS STATUS 05/31/2017 BRENDON PLUNKETT DO Ot 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 DISEASE, UNSPECIF 05/31/2017 BRENDON PLUNKETT DO Ot R91.8 OTHER NONSPECIFIC ABNORMAL FINDING OF DEL 05/31/2017 BRENDON PLUNKETT DO Ot Z72.0 TOBACCO USE 07/03/2017 JOSE CARLOS WALLIS, DALE Parker Ot D72.829 ELEVATED WHITE BLOOD CELL COUNT, UNSPECI 07/03/2017 JOSE CARLOS WALLIS, DALE Parker Ot E11.40 TYPE 2 DIABETES MELLITUS WITH DIABETIC N 07/03/2017 DALE BRANCH MD Ot E78.00 PURE HYPERCHOLESTEROLEMIA, UNSPECIFIED 07/03/2017 DALE BRANCH MD Ot E86.0 DEHYDRATION 07/03/2017 DALE BRANCH MD Ot F41.9 ANXIETY DISORDER, UNSPECIFIED 07/03/2017 DALE BRANCH MD Ot I10 ESSENTIAL (PRIMARY) HYPERTENSION 07/03/2017 DALE BRANCH MD, Ot J44.9 CHRONIC OBSTRUCTIVE PULMONARY DISEASE, U 07/03/2017 DALE BRANCH MD Ot 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 DISEASE, UNSPECIF 07/03/2017 DALE BRANCH MD Ot K21.9 GASTRO-ESOPHAGEAL REFLUX DISEASE WITHOUT 07/03/2017 DALE BRANCH MD Ot M47.9 SPONDYLOSIS, UNSPECIFIED 07/03/2017 DALE BRANCH MD Ot R10.31 RIGHT LOWER QUADRANT PAIN 07/03/2017 DALE BRANCH MD Ot T36.4X5A ADVERSE EFFECT OF TETRACYCLINES, INITIAL 07/03/2017 DALE BRANCH MD Ot T38.0X5A ADVERSE EFFECT OF GLUCOCORT/SYNTH ANALOG 07/03/2017 DALE BRANCH MD Ot 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 07/03/2017 DALE BRANCH MD, Ot Z80.0 FAMILY HISTORY OF MALIGNANT NEOPLASM OF 07/03/2017 DALE BRANCH MD Ot Z82.49 FAMILY HX OF ISCHEM HEART DIS AND OTH DI 07/03/2017 LILIBETH DUARN MD Ot E11.40 TYPE 2 DIABETES MELLITUS WITH DIABETIC N 07/03/2017 LILIBETH DURAN MD Ot E78.00 PURE HYPERCHOLESTEROLEMIA, UNSPECIFIED 07/03/2017 LILIBETH DURAN MD, Ot F41.9 ANXIETY DISORDER, UNSPECIFIED 07/03/2017 LILIBETH DURAN MD Ot I10 ESSENTIAL (PRIMARY) HYPERTENSION 07/03/2017 LILIBETH DURAN MD, Ot J44.9 CHRONIC OBSTRUCTIVE PULMONARY DISEASE, U 07/03/2017 LILIBETH DURAN MD Ot K21.9 GASTRO-ESOPHAGEAL REFLUX DISEASE WITHOUT 07/03/2017 LILIBETH DURAN MD Ot M47.9 SPONDYLOSIS, UNSPECIFIED 07/03/2017 LILIBETH DURAN MD Ot R10.9 UNSPECIFIED ABDOMINAL PAIN 07/03/2017 LILIBETH DURAN MD, Ot T36.4X5A ADVERSE EFFECT OF TETRACYCLINES, INITIAL 07/03/2017 LILIBETH DURAN MD, Ot T38.0X5A ADVERSE EFFECT OF GLUCOCORT/SYNTH ANALOG 07/03/2017 LILIBETH DURAN MD, Ot T78.40XA ALLERGY, UNSPECIFIED, INITIAL ENCOUNTER 07/03/2017 LILIBETH DURAN MD, Ot Z80.0 FAMILY HISTORY OF MALIGNANT NEOPLASM OF 07/03/2017 LILIBETH DURAN MD, Ot Z82.49 FAMILY HX OF ISCHEM HEART DIS AND OTH DI 07/03/2017 TATYANA CHAPPELL CASTING SUPERVISOR Ot 272.4 HYPERLIPIDEMIA NEC/NOS 07/03/2017 MAX CHAPPELLA L CASTING SUPERVISOR Ot 401.1 BENIGN HYPERTENSION 07/03/2017 TATYANA CHAPPELL CASTING SUPERVISOR Ot 414.00 CORON ATHEROSCLER NOS TYPE VESSEL, NATIV 07/03/2017 TATYANA CHAPPELL CASTING SUPERVISOR Ot 786.50 CHEST PAIN NOS 07/05/2017 LILIBETH DURAN MD Ot E11.40 TYPE 2 DIABETES MELLITUS WITH DIABETIC N 07/05/2017 LILIBETH DURAN MD Ot E78.00 PURE HYPERCHOLESTEROLEMIA, UNSPECIFIED 07/05/2017 LILIBETH DURAN MD, Ot F41.9 ANXIETY DISORDER, UNSPECIFIED 07/05/2017 LILIBETH DURAN MD Ot I10 ESSENTIAL (PRIMARY) HYPERTENSION 07/05/2017 LILIBETH DURAN MD, Ot J44.9 CHRONIC OBSTRUCTIVE PULMONARY DISEASE, U 07/05/2017 LILIBETH DURAN MD, Ot K21.9 GASTRO-ESOPHAGEAL REFLUX DISEASE WITHOUT 07/05/2017 LILIBETH DURAN MD, Ot M47.9 SPONDYLOSIS, UNSPECIFIED 07/05/2017 LILIBETH DURAN MD, Ot R10.9 UNSPECIFIED ABDOMINAL PAIN 07/05/2017 LILIBETH DURAN MD, Ot T36.4X5A ADVERSE EFFECT OF TETRACYCLINES, INITIAL 07/05/2017 LILIBETH DURAN MD, Ot T38.0X5A ADVERSE EFFECT OF GLUCOCORT/SYNTH ANALOG 07/05/2017 LILIBETH DURAN MD, Ot T78.40XA ALLERGY, UNSPECIFIED, INITIAL ENCOUNTER 07/05/2017 RENEE WALLIS, LILIBETH Thomas Ot Z80.0 FAMILY HISTORY OF MALIGNANT NEOPLASM OF 07/05/2017 RENEE WALLIS, LILIBETH Thomas Ot Z82.49 FAMILY HX OF ISCHEM HEART DIS AND OTH DI 07/09/2017 DALE BRANCH MD Ot D72.829 ELEVATED WHITE BLOOD CELL COUNT, UNSPECI 07/09/2017 DALE BRANCH MD Ot E11.40 TYPE 2 DIABETES MELLITUS WITH DIABETIC N 07/09/2017 DALE BRANCH MD Ot E78.00 PURE HYPERCHOLESTEROLEMIA, UNSPECIFIED 07/09/2017 DALE BRANCH MD Ot E86.0 DEHYDRATION 07/09/2017 DALE BRANCH MD Ot F41.9 ANXIETY DISORDER, UNSPECIFIED 07/09/2017 DALE BRANCH MD Ot I10 ESSENTIAL (PRIMARY) HYPERTENSION 07/09/2017 DALE BRANCH MD Ot 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 DISEASE, UNSPECIF 07/09/2017 DALE BRANCH MD Ot M47.9 SPONDYLOSIS, UNSPECIFIED 07/09/2017 DALE BRANCH MD Ot R10.31 RIGHT LOWER QUADRANT PAIN 07/09/2017 DALE BRANCH MD Ot Z79.4 NURSING HOME (CURRENT) USE OF INSULIN 07/09/2017 DALE BRANCH MD Ot Z80.0 FAMILY HISTORY OF MALIGNANT NEOPLASM OF 07/09/2017 DALE BRANCH MD Ot Z82.49 FAMILY HX OF ISCHEM HEART DIS AND OTH DI 07/15/2017 IVÁN GRACE APRN Ot E11.40 TYPE 2 DIABETES MELLITUS WITH DIABETIC N 07/15/2017 IVÁN GRACE APRN Ot E78.00 PURE HYPERCHOLESTEROLEMIA, UNSPECIFIED 07/15/2017 IVÁN GRACE APRN Ot F12.90 CANNABIS USE, UNSPECIFIED, UNCOMPLICATED 07/15/2017 IVÁN GRACE APRN Ot F17.210 NICOTINE DEPENDENCE, CIGARETTES, UNCOMPL 07/15/2017 IVÁN GRACE APRN Ot F41.9 ANXIETY DISORDER, UNSPECIFIED 07/15/2017 IVÁN GRACE SOCIAL SERVICE LIAISON Ot I10 ESSENTIAL (PRIMARY) HYPERTENSION 07/15/2017 IVÁN GRACE APRN Ot J44.9 CHRONIC OBSTRUCTIVE PULMONARY DISEASE, U 07/15/2017 IVÁN GRACE APRN Ot 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 DISEASE, UNSPECIF 07/15/2017 IVÁN GRACE APRN Ot K21.9 GASTRO-ESOPHAGEAL REFLUX DISEASE WITHOUT 07/15/2017 IVÁN GRACE APRN Ot R06.00 DYSPNEA, UNSPECIFIED 07/15/2017 IVÁN GRACE APRN Ot 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 07/15/2017 IVÁN GRACE APRN Ot Z80.0 FAMILY HISTORY OF MALIGNANT NEOPLASM OF 07/15/2017 IVÁN GRACE APRN Ot Z82.49 FAMILY HX OF ISCHEM HEART DIS AND OTH DI 07/15/2017 IVÁN GRACE APRN Ot Z87.01 PERSONAL HISTORY OF PNEUMONIA (RECURRENT 07/16/2017 DALE BRANCH MD Ot D72.829 ELEVATED WHITE BLOOD CELL COUNT, UNSPECI 07/16/2017 DALE BRANCH MD Ot E11.40 TYPE 2 DIABETES MELLITUS WITH DIABETIC N 07/16/2017 DALE BRANCH MD Ot E78.00 PURE HYPERCHOLESTEROLEMIA, UNSPECIFIED 07/16/2017 DALE BRANCH MD Ot E86.0 DEHYDRATION 07/16/2017 DALE BRANCH MD Ot F41.9 ANXIETY DISORDER, UNSPECIFIED 07/16/2017 DALE BRANCH MD Ot I10 ESSENTIAL (PRIMARY) HYPERTENSION 07/16/2017 DALE BARNCH MD Ot 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 or plasma glucose measurement (mass/volume) 270 mg/dL 70-105 Serum or plasma calcium measurement (mass/volume) 8.7 mg/dL 8.5-10.1 Serum or plasma total bilirubin measurement (mass/volume) 0.6 mg/dL 0.1-1.0 Serum or plasma alkaline phosphatase measurement (enzymatic activity/volume) 81 U/L 40-136 Serum or plasma aspartate aminotransferase measurement (enzymatic activity/ volume) 9 U/L 5-34 Serum or plasma alanine aminotransferase measurement (enzymatic activity/volume ) 15 U/L 0-55 Serum or plasma protein measurement (mass/volume) 7.1 g/dL 6.4-8.2 Serum or plasma albumin measurement (mass/volume) 4.2 g/dL 3.2-4.5 Complete urinalysis with reflex to culture - 09/24/16 12:50 Urine color determination YELLOW NRG Urine clarity determination CLEAR NRG Urine pH measurement by test strip 5 5-9 Specific gravity of urine by test strip 1.025 1.016- 1.022 Urine protein assay by test strip, semi-quantitative 2+ NEGATIVE Urine glucose detection by automated test strip 4+ NEGATIVE Erythrocytes detection in urine sediment by light microscopy NEGATIVE NEGATIVE Urine ketones detection by automated test strip NEGATIVE NEGATIVE Urine nitrite detection by test strip NEGATIVE NEGATIVE Urine total bilirubin detection by test strip NEGATIVE NEGATIVE Urine urobilinogen measurement by automated test strip (mass/volume) NORMAL NORMAL Urine leukocyte esterase detection by dipstick 1+ NEGATIVE Automated urine sediment erythrocyte count by microscopy (number/high power field) NONE NRG Automated urine sediment leukocyte count by microscopy (number/high power field ) [HPF] NRG Bacteria detection in urine sediment by light microscopy TRACE NRG Squamous epithelial cells detection in urine sediment by light microscopy 2-5 NRG Crystals detection in urine sediment by light microscopy NONE NRG Casts detection in urine sediment by light microscopy NONE NRG Mucus detection in urine sediment by light microscopy MODERATE NRG Complete urinalysis with reflex to culture NO NRG Complete blood count (CBC) with automated white blood cell (WBC) differential - 11/08/16 16:40 Blood leukocytes automated count (number/volume) 18.8 10*3/uL 4.3-11.0 Blood erythrocytes automated count (number/volume) 5.17 10*6/uL 4.35-5.85 Venous blood hemoglobin measurement (mass/volume) 15.5 g/dL 13.3-17.7 Blood hematocrit (volume fraction) 44 % 40-54 Automated erythrocyte mean corpuscular volume 85 [foz_us] 80-99 Automated erythrocyte mean corpuscular hemoglobin (mass per erythrocyte) 30 pg 25-34 Automated erythrocyte mean corpuscular hemoglobin concentration measurement ( mass/volume) 35 g/dL 32-36 Automated erythrocyte distribution width ratio 14.4 % 10.0-14.5 Automated blood platelet count (count/volume) 216 10*3/uL 130-400 Automated blood platelet mean volume measurement 10.3 [foz_us] 7.4-10.4 Automated blood neutrophils/100 leukocytes 75 % 42-75 Automated blood lymphocytes/100 leukocytes 17 % 12-44 Blood monocytes/100 leukocytes 6 % 0-12 Automated blood eosinophils/100 leukocytes 2 % 0-10 Automated blood basophils/100 leukocytes 1 % 0-10 Blood neutrophils automated count (number/volume) 14.0 10*3 1.8-7.8 Blood lymphocytes automated count (number/volume) 3.3 10*3 1.0-4.0 Blood monocytes automated count (number/volume) 1.0 10*3 0.0-1.0 Automated eosinophil count 0.4 10*3/uL 0.0-0.3 Automated blood basophil count (count/volume) 0.1 10*3/uL 0.0-0.1 PT panel in platelet poor plasma by coagulation assay - 11/08/16 16:40 Prothrombin time (PT) in platelet poor plasma by coagulation assay 13.1 s 12.2-14.7 INR in platelet poor plasma or blood by coagulation assay 1.0 0.8-1.4 Blood manual differential performed detection - 11/08/16 16:40 Blood monocytes/100 leukocytes 8 % NR Manual blood segmented neutrophils/100 leukocytes 67 % NR Manual blood lymphocytes/100 leukocytes 20 % NR Manual eosinophils/100 leukocytes in nose 1 % NR Manual blood basophils/100 leukocytes 1 % NR Blood lymphocytes variant/100 leukocytes 3 % NR Blood erythrocyte morphology finding identification NORMAL [facility] Comprehensive metabolic panel - 11/08/16 16:40 Serum or plasma sodium measurement (moles/volume) 137 mmol/L 135-145 Serum or plasma potassium measurement (moles/volume) 4.0 mmol/L 3.6-5.0 Serum or plasma chloride measurement (moles/volume) 104 mmol/L 98-107 Carbon dioxide 23 mmol/L 21-32 Serum or plasma anion gap determination (moles/volume) 10 mmol/L 5-14 Serum or plasma urea nitrogen measurement (mass/volume) 16 mg/dL 7-18 Serum or plasma creatinine measurement (mass/volume) 0.81 mg/dL 0.60-1.30 Serum or plasma urea nitrogen/creatinine mass ratio 20 NRG Serum or plasma creatinine measurement with calculation of estimated glomerular filtration rate > NRG Serum or plasma glucose measurement (mass/volume) 152 mg/dL 70-105 Serum or plasma calcium measurement (mass/volume) 9.0 mg/dL 8.5-10.1 Serum or plasma total bilirubin measurement (mass/volume) 0.7 mg/dL 0.1-1.0 Serum or plasma alkaline phosphatase measurement (enzymatic activity/volume) 71 U/L 40-136 Serum or plasma aspartate aminotransferase measurement (enzymatic activity/ volume) 14 U/L 5-34 Serum or plasma alanine aminotransferase measurement (enzymatic activity/volume ) 20 U/L 0-55 Serum or plasma protein measurement (mass/volume) 7.0 g/dL 6.4-8.2 Serum or plasma albumin measurement (mass/volume) 4.3 g/dL 3.2-4.5 Magnesium - 11/08/16 16:40 Magnesium 2.0 mg/dL 1.8-2.4 Serum or plasma troponin i.cardiac measurement (mass/volume) - 11/08/16 16:40 Serum or plasma troponin i.cardiac measurement (mass/volume) < ng/ mL <0.30 Serum or plasma ethanol measurement (mass/volume) - 11/08/16 16:40 Serum or plasma ethanol measurement (mass/volume) < mg/dL <10 Capillary blood glucose measurement by glucometer (mass/volume) - 11/08/16 16: 46 Capillary blood glucose measurement by glucometer (mass/volume) 152 mg/dL 70-110 Complete urinalysis with reflex to culture - 11/08/16 17:17 Urine color determination YELLOW NRG Urine clarity determination CLEAR NRG Urine pH measurement by test strip 7 5-9 Specific gravity of urine by test strip 1.005 1.016- 1.022 Urine protein assay by test strip, semi-quantitative NEGATIVE NEGATIVE Urine glucose detection by automated test strip NEGATIVE NEGATIVE Erythrocytes detection in urine sediment by light microscopy NEGATIVE NEGATIVE Urine ketones detection by automated test strip NEGATIVE NEGATIVE Urine nitrite detection by test strip NEGATIVE NEGATIVE Urine total bilirubin detection by test strip NEGATIVE NEGATIVE Urine urobilinogen measurement by automated test strip (mass/volume) NORMAL NORMAL Urine leukocyte esterase detection by dipstick NEGATIVE NEGATIVE Automated urine sediment erythrocyte count by microscopy (number/high power field) NONE NRG Automated urine sediment leukocyte count by microscopy (number/high power field ) NONE NRG Bacteria detection in urine sediment by light microscopy NEGATIVE NRG Squamous epithelial cells detection in urine sediment by light microscopy 0-2 NRG Crystals detection in urine sediment by light microscopy NONE NRG Casts detection in urine sediment by light microscopy NONE NRG Mucus detection in urine sediment by light microscopy NEGATIVE NRG Complete urinalysis with reflex to culture NO NRG Urine drug screening test - 11/08/16 17:17 Urine phencyclidine detection by screening method NEGATIVE NEGATIVE Urine benzodiazepines detection by screening method POSITIVE NEGATIVE Urine cocaine detection NEGATIVE NEGATIVE Urine amphetamines detection by screening method NEGATIVE NEGATIVE Urine methamphetamine detection by screening method NEGATIVE NEGATIVE Urine cannabinoids detection by screening method NEGATIVE NEGATIVE Urine opiates detection by screening method NEGATIVE NEGATIVE Urine barbiturates detection NEGATIVE NEGATIVE Screening urine tricyclic antidepressants detection NEGATIVE NEGATIVE Urine methadone detection by screening method NEGATIVE NEGATIVE Urine oxycodone detection NEGATIVE NEGATIVE Urine propoxyphene detection NEGATIVE NEGATIVE Cerebrospinal fluid cell count - 11/08/16 18:15 Cerebrospinal fluid appearance description CLEAR NRG Cerebrospinal fluid color identification COLORLESS NRG Cerebrospinal fluid leukocytes count (number/volume) 2.22 % 0-5 Cerebrospinal fluid erythrocytes count (number/volume) 0 % 0-0 Cerebrospinal fluid cell count on specimen from last tube collected 4 NRG Cerebrospinal fluid glucose measurement (mass/volume) - 11/08/16 18:15 Cerebrospinal fluid glucose measurement (mass/volume) 101 mg/dL 50-80 Cerebrospinal fluid protein measurement (mass/volume) - 11/08/16 18:15 Cerebrospinal fluid protein measurement (mass/volume) 90 mg/dL 15-40 Gram stain microscopy - 11/08/16 18:15 GRAM STAIN RESULT 11/08 19:25 BY Rey VELAZQUEZ NRG Bacterial cerebrospinal fluid culture - 11/08/16 18:15 Bacterial cerebrospinal fluid culture NG NRG Blood lactic acid measurement (moles/volume) - 11/08/16 18:37 Blood lactic acid measurement (moles/volume) 1.1 mmol/L 0.5-2.0 Bacterial blood culture - 11/08/16 18:37 Bacterial blood culture NG NRG Bacterial blood culture - 11/08/16 18:38 Bacterial blood culture NG NRG Complete blood count (CBC) with automated white blood cell (WBC) differential - 07/03/17 02:50 Blood leukocytes automated count (number/volume) 23.7 10*3/uL 4.3-11.0 Blood erythrocytes automated count (number/volume) 5.65 10*6/uL 4.35-5.85 Venous blood hemoglobin measurement (mass/volume) 16.6 g/dL 13.3-17.7 Blood hematocrit (volume fraction) 47 % 40-54 Automated erythrocyte mean corpuscular volume 83 [foz_us] 80-99 Automated erythrocyte mean corpuscular hemoglobin (mass per erythrocyte) 29 pg 25-34 Automated erythrocyte mean corpuscular hemoglobin concentration measurement ( mass/volume) 35 g/dL 32-36 Automated erythrocyte distribution width ratio 14.4 % 10.0-14.5 Automated blood platelet count (count/volume) 280 10*3/uL 130-400 Automated blood platelet mean volume measurement 10.7 [foz_us] 7.4-10.4 Automated blood neutrophils/100 leukocytes 75 % 42-75 Automated blood lymphocytes/100 leukocytes 19 % 12-44 Blood monocytes/100 leukocytes 5 % 0-12 Automated blood eosinophils/100 leukocytes 1 % 0-10 Automated blood basophils/100 leukocytes 0 % 0-10 Blood neutrophils automated count (number/volume) 17.7 10*3 1.8-7.8 Blood lymphocytes automated count (number/volume) 4.6 10*3 1.0-4.0 Blood monocytes automated count (number/volume) 1.2 10*3 0.0-1.0 Automated eosinophil count 0.1 10*3/uL 0.0-0.3 Automated blood basophil count (count/volume) 0.1 10*3/uL 0.0-0.1 Complete urinalysis with reflex to culture - 07/03/17 02:50 Urine color determination YELLOW NRG Urine clarity determination CLEAR NRG Urine pH measurement by test strip 6 5-9 Specific gravity of urine by test strip 1.020 1.016- 1.022 Urine protein assay by test strip, semi-quantitative NEGATIVE NEGATIVE Urine glucose detection by automated test strip NEGATIVE NEGATIVE Erythrocytes detection in urine sediment by light microscopy NEGATIVE NEGATIVE Urine ketones detection by automated test strip NEGATIVE NEGATIVE Urine nitrite detection by test strip NEGATIVE NEGATIVE Urine total bilirubin detection by test strip NEGATIVE NEGATIVE Urine urobilinogen measurement by automated test strip (mass/volume) NORMAL NORMAL Urine leukocyte esterase detection by dipstick 1+ NEGATIVE Automated urine sediment erythrocyte count by microscopy (number/high power field) NONE NRG Automated urine sediment leukocyte count by microscopy (number/high power field ) RARE NRG Bacteria detection in urine sediment by light microscopy NEGATIVE NRG Squamous epithelial cells detection in urine sediment by light microscopy RARE NRG Crystals detection in urine sediment by light microscopy NONE NRG Casts detection in urine sediment by light microscopy NONE NRG Mucus detection in urine sediment by light microscopy NEGATIVE NRG Complete urinalysis with reflex to culture NO NRG Urine drug screening test - 07/03/17 02:50 Urine phencyclidine detection by screening method NEGATIVE NEGATIVE Urine benzodiazepines detection by screening method NEGATIVE NEGATIVE Urine cocaine detection NEGATIVE NEGATIVE Urine amphetamines detection by screening method NEGATIVE NEGATIVE Urine methamphetamine detection by screening method NEGATIVE NEGATIVE Urine cannabinoids detection by screening method NEGATIVE NEGATIVE Urine opiates detection by screening method NEGATIVE NEGATIVE Urine barbiturates detection NEGATIVE NEGATIVE Screening urine tricyclic antidepressants detection NEGATIVE NEGATIVE Urine methadone detection by screening method NEGATIVE NEGATIVE Urine oxycodone detection NEGATIVE NEGATIVE Urine propoxyphene detection NEGATIVE NEGATIVE Comprehensive metabolic panel - 07/03/17 02:50 Serum or plasma sodium measurement (moles/volume) 137 mmol/L 135-145 Serum or plasma potassium measurement (moles/volume) 3.7 mmol/L 3.6-5.0 Serum or plasma chloride measurement (moles/volume) 100 mmol/L 98-107 Carbon dioxide 23 mmol/L 21-32 Serum or plasma anion gap determination (moles/volume) 14 mmol/L 5-14 Serum or plasma urea nitrogen measurement (mass/volume) 18 mg/dL 7-18 Serum or plasma creatinine measurement (mass/volume) 0.85 mg/dL 0.60-1.30 Serum or plasma urea nitrogen/creatinine mass ratio 21 NRG Serum or plasma creatinine measurement with calculation of estimated glomerular filtration rate > NRG Serum or plasma glucose measurement (mass/volume) 91 mg/dL 70-105 Serum or plasma calcium measurement (mass/volume) 9.9 mg/dL 8.5-10.1 Serum or plasma total bilirubin measurement (mass/volume) 0.8 mg/dL 0.1-1.0 Serum or plasma alkaline phosphatase measurement (enzymatic activity/volume) 72 U/L 40-136 Serum or plasma aspartate aminotransferase measurement (enzymatic activity/ volume) 10 U/L 5-34 Serum or plasma alanine aminotransferase measurement (enzymatic activity/volume ) 18 U/L 0-55 Serum or plasma protein measurement (mass/volume) 7.4 g/dL 6.4-8.2 Serum or plasma albumin measurement (mass/volume) 4.3 g/dL 3.2-4.5 Lipase - 07/03/17 02:50 Lipase 13 U/L 8-78 Blood manual differential performed detection - 07/03/17 02:50 Blood monocytes/100 leukocytes 8 % NRG Manual blood segmented neutrophils/100 leukocytes 69 % NRG Blood band neutrophils/100 leukocytes 2 % NRG Manual blood lymphocytes/100 leukocytes 19 % NRG Manual eosinophils/100 leukocytes in nose 0 % NRG Manual blood basophils/100 leukocytes 0 % NRG Blood lymphocytes variant/100 leukocytes 2 % NRG Blood erythrocyte morphology finding identification NORMAL NRG PT panel in platelet poor plasma by coagulation assay - 07/03/17 02:50 Prothrombin time (PT) in platelet poor plasma by coagulation assay 12.7 s 12.2-14.7 INR in platelet poor plasma or blood by coagulation assay 0.9 0.8-1.4 Activated partial thromboplastin time (aPTT) in platelet poor plasma bycoagulation assay - 07/03/17 02:50 Activated partial thromboplastin time (aPTT) in platelet poor plasma bycoagulation assay 26 s 24-35 Blood lactic acid measurement (moles/volume) - 07/03/17 03:50 Blood lactic acid measurement (moles/volume) 2.09 mmol/L 0.50-2.00 Bacterial blood culture - 07/03/17 03:50 Bacterial blood culture NG NRG Bacterial blood culture - 07/03/17 03:55 Bacterial blood culture NG NRG Blood lactic acid measurement (moles/volume) - 07/03/17 05:50 Blood lactic acid measurement (moles/volume) 1.65 mmol/L 0.50-2.00 Complete blood count (CBC) with automated white blood cell (WBC) differential - 07/15/17 11:15 Blood leukocytes automated count (number/volume) 20.5 10*3/uL 4.3-11.0 Blood erythrocytes automated count (number/volume) 5.43 10*6/uL 4.35-5.85 Venous blood hemoglobin measurement (mass/volume) 15.9 g/dL 13.3-17.7 Blood hematocrit (volume fraction) 46 % 40-54 Automated erythrocyte mean corpuscular volume 85 [foz_us] 80-99 Automated erythrocyte mean corpuscular hemoglobin (mass per erythrocyte) 29 pg 25-34 Automated erythrocyte mean corpuscular hemoglobin concentration measurement ( mass/volume) 34 g/dL 32-36 Automated erythrocyte distribution width ratio 14.6 % 10.0-14.5 Automated blood platelet count (count/volume) 285 10*3/uL 130-400 Automated blood platelet mean volume measurement 10.1 [foz_us] 7.4-10.4 Automated blood neutrophils/100 leukocytes 84 % 42-75 Automated blood lymphocytes/100 leukocytes 9 % 12-44 Blood monocytes/100 leukocytes 6 % 0-12 Automated blood eosinophils/100 leukocytes 1 % 0-10 Automated blood basophils/100 leukocytes 0 % 0-10 Blood neutrophils automated count (number/volume) 17.3 10*3 1.8-7.8 Blood lymphocytes automated count (number/volume) 1.9 10*3 1.0-4.0 Blood monocytes automated count (number/volume) 1.1 10*3 0.0-1.0 Automated eosinophil count 0.1 10*3/uL 0.0-0.3 Automated blood basophil count (count/volume) 0.1 10*3/uL 0.0-0.1 Blood manual differential performed detection - 07/15/17 11:15 Blood monocytes/100 leukocytes 6 % NR Manual blood segmented neutrophils/100 leukocytes 81 % NRG Blood band neutrophils/100 leukocytes 2 % NRG Manual blood lymphocytes/100 leukocytes 10 % NRG Manual eosinophils/100 leukocytes in nose 1 % NRG Manual blood basophils/100 leukocytes 0 % NR Blood erythrocyte morphology finding identification NORMAL [facility] Comprehensive metabolic panel - 07/15/17 11:15 Serum or plasma sodium measurement (moles/volume) 138 mmol/L 135-145 Serum or plasma potassium measurement (moles/volume) 4.3 mmol/L 3.6-5.0 Serum or plasma chloride measurement (moles/volume) 105 mmol/L 98-107 Carbon dioxide 23 mmol/L 21-32 Serum or plasma anion gap determination (moles/volume) 10 mmol/L 5-14 Serum or plasma urea nitrogen measurement (mass/volume) 12 mg/dL 7-18 Serum or plasma creatinine measurement (mass/volume) 0.70 mg/dL 0.60-1.30 Serum or plasma urea nitrogen/creatinine mass ratio 17 NRG Serum or plasma creatinine measurement with calculation of estimated glomerular filtration rate > NRG Serum or plasma glucose measurement (mass/volume) 99 mg/dL 70-105 Serum or plasma calcium measurement (mass/volume) 9.4 mg/dL 8.5-10.1 Serum or plasma total bilirubin measurement (mass/volume) 0.6 mg/dL 0.1-1.0 Serum or plasma alkaline phosphatase measurement (enzymatic activity/volume) 59 U/L 40-136 Serum or plasma aspartate aminotransferase measurement (enzymatic activity/ volume) 13 U/L 5-34 Serum or plasma alanine aminotransferase measurement (enzymatic activity/volume ) 26 U/L 0-55 Serum or plasma protein measurement (mass/volume) 7.0 g/dL 6.4-8.2 Serum or plasma albumin measurement (mass/volume) 4.1 g/dL 3.2-4.5 Magnesium - 07/15/17 11:15 Magnesium 2.1 mg/dL 1.8-2.4 Serum or plasma troponin i.cardiac measurement (mass/volume) - 07/15/17 11:15 Serum or plasma troponin i.cardiac measurement (mass/volume) < ng/ mL <0.30 Serum or plasma lithium measurement (moles/volume) - 07/15/17 11:15 BNP level 87.4 pg/mL <100.0 Lipase - 07/15/17 11:15 Lipase 15 U/L 8-78 Arterial blood gas measurement - 07/15/17 13:20 Blood pCO2 37 mm[Hg] 35-45 Blood pO2 94 mm[Hg] 79-93 Arterial blood bicarbonate measurement (moles/volume) 24 mmol/L 23-27 Arterial blood base excess by calculation 0.1 mmol/L -2.5 -2.5 Arterial blood oxygen saturation measurement 98 % 94-100 * Inhaled oxygen flow rate ROOM AIR NRG Arterial blood pH measurement with patient temperature correction 7.42 7.37-7.43 Arterial blood carbon dioxide, total measurement (moles/volume) 25.1 mmol/L 21.0-31.0 Body site LEFT RADIAL NRG Assessment of wrist artery patency prior to arterial puncture POSITIVE NRG Setting of ventilation mode NO NRG Measurement of body temperature 98.9 NRG Complete blood count (CBC) with automated white blood cell (WBC) differential - 08/05/17 16:39 Blood leukocytes automated count (number/volume) 15.2 10*3/uL 4.3-11.0 Blood erythrocytes automated count (number/volume) 5.28 10*6/uL 4.35-5.85 Venous blood hemoglobin measurement (mass/volume) 15.5 g/dL 13.3-17.7 Blood hematocrit (volume fraction) 45 % 40-54 Automated erythrocyte mean corpuscular volume 84 [foz_us] 80-99 Automated erythrocyte mean corpuscular hemoglobin (mass per erythrocyte) 29 pg 25-34 Automated erythrocyte mean corpuscular hemoglobin concentration measurement ( mass/volume) 35 g/dL 32-36 Automated erythrocyte distribution width ratio 13.7 % 10.0-14.5 Automated blood platelet count (count/volume) 276 10*3/uL 130-400 Automated blood platelet mean volume measurement 10.2 [foz_us] 7.4-10.4 Automated blood neutrophils/100 leukocytes 66 % 42-75 Automated blood lymphocytes/100 leukocytes 25 % 12-44 Blood monocytes/100 leukocytes 7 % 0-12 Automated blood eosinophils/100 leukocytes 2 % 0-10 Automated blood basophils/100 leukocytes 1 % 0-10 Blood neutrophils automated count (number/volume) 10.0 10*3 1.8-7.8 Blood lymphocytes automated count (number/volume) 3.8 10*3 1.0-4.0 Blood monocytes automated count (number/volume) 1.0 10*3 0.0-1.0 Automated eosinophil count 0.3 10*3/uL 0.0-0.3 Automated blood basophil count (count/volume) 0.1 10*3/uL 0.0-0.1 PT panel in platelet poor plasma by coagulation assay - 08/05/17 16:39 Prothrombin time (PT) in platelet poor plasma by coagulation assay 12.6 s 12.2-14.7 INR in platelet poor plasma or blood by coagulation assay 0.9 0.8-1.4 Activated partial thromboplastin time (aPTT) in platelet poor plasma bycoagulation assay - 08/05/17 16:39 Activated partial thromboplastin time (aPTT) in platelet poor plasma bycoagulation assay 28 s 24-35 Comprehensive metabolic panel - 08/05/17 16:39 Serum or plasma sodium measurement (moles/volume) 132 mmol/L 135-145 Serum or plasma potassium measurement (moles/volume) 4.5 mmol/L 3.6-5.0 Serum or plasma chloride measurement (moles/volume) 99 mmol/L 98-107 Carbon dioxide 24 mmol/L 21-32 Serum or plasma anion gap determination (moles/volume) 9 mmol/L 5-14 Serum or plasma urea nitrogen measurement (mass/volume) 17 mg/dL 7-18 Serum or plasma creatinine measurement (mass/volume) 1.04 mg/dL 0.60-1.30 Serum or plasma urea nitrogen/creatinine mass ratio 16 NRG Serum or plasma creatinine measurement with calculation of estimated glomerular filtration rate > NRG Serum or plasma glucose measurement (mass/volume) 234 mg/dL 70-105 Serum or plasma calcium measurement (mass/volume) 9.2 mg/dL 8.5-10.1 Serum or plasma total bilirubin measurement (mass/volume) 0.8 mg/dL 0.1-1.0 Serum or plasma alkaline phosphatase measurement (enzymatic activity/volume) 53 U/L 40-136 Serum or plasma aspartate aminotransferase measurement (enzymatic activity/ volume) 15 U/L 5-34 Serum or plasma alanine aminotransferase measurement (enzymatic activity/volume ) 26 U/L 0-55 Serum or plasma protein measurement (mass/volume) 7.0 g/dL 6.4-8.2 Serum or plasma albumin measurement (mass/volume) 4.1 g/dL 3.2-4.5 Magnesium - 08/05/17 16:39 Magnesium 1.9 mg/dL 1.8-2.4 Blood manual differential performed detection - 08/05/17 16:39 Blood monocytes/100 leukocytes 2 % NRG Manual blood segmented neutrophils/100 leukocytes 54 % NRG Blood band neutrophils/100 leukocytes 0 % NRG Manual blood lymphocytes/100 leukocytes 42 % NRG Manual eosinophils/100 leukocytes in nose 0 % NRG Manual blood basophils/100 leukocytes 2 % NRG Blood erythrocyte morphology finding identification NORMAL NRG Serum or plasma lithium measurement (moles/volume) - 08/05/17 16:39 BNP level 17.5 pg/mL <100.0 Serum or plasma troponin i.cardiac measurement (mass/volume) - 08/05/17 16:39 Serum or plasma troponin i.cardiac measurement (mass/volume) < ng/ mL <0.30 THYROID STIMULATING HORMONE - 08/05/17 16:39 THYROID STIMULATING HORMONE 2.73 u[iU]/mL 0.35-4.94 Capillary blood glucose measurement by glucometer (mass/volume) - 08/05/17 16: 47 Capillary blood glucose measurement by glucometer (mass/volume) 205 mg/dL 70-110 Influenza virus A and B antigen detection - 08/05/17 17:00 FLU RESULT NEGATIVE FOR INFLUENZA A AND B ANTIGENS BY IA NRG Blood lactic acid measurement (moles/volume) - 08/05/17 17:00 Blood lactic acid measurement (moles/volume) 1.70 mmol/L 0.50-2.00 Bacterial blood culture - 08/05/17 17:00 QUANTITY OF GROWTH Isolated NRG Bacterial blood culture [id number] NRG Bacterial blood culture - 08/05/17 17:08 Bacterial blood culture NG NRG Complete urinalysis with reflex to culture - 08/05/17 18:07 Urine color determination MG NRG Urine clarity determination CLEAR NRG Urine pH measurement by test strip 6 5-9 Specific gravity of urine by test strip 1.025 1.016- 1.022 Urine protein assay by test strip, semi-quantitative 1+ NEGATIVE Urine glucose detection by automated test strip 1+ NEGATIVE Erythrocytes detection in urine sediment by light microscopy NEGATIVE NEGATIVE Urine ketones detection by automated test strip NEGATIVE NEGATIVE Urine nitrite detection by test strip NEGATIVE NEGATIVE Urine total bilirubin detection by test strip NEGATIVE NEGATIVE Urine urobilinogen measurement by automated test strip (mass/volume) 1 mg/dL NORMAL Urine leukocyte esterase detection by dipstick 1+ NEGATIVE Automated urine sediment erythrocyte count by microscopy (number/high power field) NONE NRG Automated urine sediment leukocyte count by microscopy (number/high power field ) [HPF] NRG Bacteria detection in urine sediment by light microscopy NONE NRG Squamous epithelial cells detection in urine sediment by light microscopy 0-2 NRG Crystals detection in urine sediment by light microscopy NONE NRG Casts detection in urine sediment by light microscopy NONE NRG Mucus detection in urine sediment by light microscopy SMALL NRG Complete urinalysis with reflex to culture NO NRG Urine drug screening test - 08/05/17 18:07 Urine phencyclidine detection by screening method NEGATIVE NEGATIVE Urine benzodiazepines detection by screening method POSITIVE NEGATIVE Urine cocaine detection NEGATIVE NEGATIVE Urine amphetamines detection by screening method NEGATIVE NEGATIVE Urine methamphetamine detection by screening method NEGATIVE NEGATIVE Urine cannabinoids detection by screening method POSITIVE NEGATIVE Urine opiates detection by screening method NEGATIVE NEGATIVE Urine barbiturates detection NEGATIVE NEGATIVE Screening urine tricyclic antidepressants detection NEGATIVE NEGATIVE Urine methadone detection by screening method NEGATIVE NEGATIVE Urine oxycodone detection NEGATIVE NEGATIVE Urine propoxyphene detection NEGATIVE NEGATIVE Capillary blood glucose measurement by glucometer (mass/volume) - 08/05/17 21: 35 Capillary blood glucose measurement by glucometer (mass/volume) 178 mg/dL 70-110 Methicillin resistant Staphylococcus aureus (MRSA) screening culture - 02:59 Methicillin resistant Staphylococcus aureus (MRSA) screening culture NEG NRG Complete blood count (CBC) with automated white blood cell (WBC) differential - 08/06/17 04:35 Blood leukocytes automated count (number/volume) 10.3 10*3/uL 4.3-11.0 Blood erythrocytes automated count (number/volume) 4.53 10*6/uL 4.35-5.85 Venous blood hemoglobin measurement (mass/volume) 13.6 g/dL 13.3-17.7 Blood hematocrit (volume fraction) 39 % 40-54 Automated erythrocyte mean corpuscular volume 87 [foz_us] 80-99 Automated erythrocyte mean corpuscular hemoglobin (mass per erythrocyte) 30 pg 25-34 Automated erythrocyte mean corpuscular hemoglobin concentration measurement ( mass/volume) 35 g/dL 32-36 Automated erythrocyte distribution width ratio 13.8 % 10.0-14.5 Automated blood platelet count (count/volume) 181 10*3/uL 130-400 Automated blood platelet mean volume measurement 10.9 [foz_us] 7.4-10.4 Automated blood neutrophils/100 leukocytes 61 % 42-75 Automated blood lymphocytes/100 leukocytes 26 % 12-44 Blood monocytes/100 leukocytes 10 % 0-12 Automated blood eosinophils/100 leukocytes 2 % 0-10 Automated blood basophils/100 leukocytes 1 % 0-10 Blood neutrophils automated count (number/volume) 6.3 10*3 1.8-7.8 Blood lymphocytes automated count (number/volume) 2.7 10*3 1.0-4.0 Blood monocytes automated count (number/volume) 1.0 10*3 0.0-1.0 Automated eosinophil count 0.2 10*3/uL 0.0-0.3 Automated blood basophil count (count/volume) 0.1 10*3/uL 0.0-0.1 Whole blood basic metabolic panel - 08/06/17 04:35 Serum or plasma sodium measurement (moles/volume) 137 mmol/L 135-145 Serum or plasma potassium measurement (moles/volume) 4.5 mmol/L 3.6-5.0 Serum or plasma chloride measurement (moles/volume) 109 mmol/L 98-107 Carbon dioxide 18 mmol/L 21-32 Serum or plasma anion gap determination (moles/volume) 10 mmol/L 5-14 Serum or plasma urea nitrogen measurement (mass/volume) 14 mg/dL 7-18 Serum or plasma creatinine measurement (mass/volume) 0.73 mg/dL 0.60-1.30 Serum or plasma urea nitrogen/creatinine mass ratio 19 NRG Serum or plasma creatinine measurement with calculation of estimated glomerular filtration rate > NRG Serum or plasma glucose measurement (mass/volume) 215 mg/dL 70-105 Serum or plasma calcium measurement (mass/volume) 7.8 mg/dL 8.5-10.1 Serum or plasma phosphate measurement (mass/volume) - 08/06/17 04:35 Serum or plasma phosphate measurement (mass/volume) 3.0 mg/dL 2.3-4.7 Magnesium - 08/06/17 04:35 Magnesium 2.0 mg/dL 1.8-2.4 Capillary blood glucose measurement by glucometer (mass/volume) - 08/06/17 11: 20 Capillary blood glucose measurement by glucometer (mass/volume) 227 mg/dL 70-110 Capillary blood glucose measurement by glucometer (mass/volume) - 10/17/17 10: 29 Capillary blood glucose measurement by glucometer (mass/volume) 191 mg/dL 70-110 PT panel in platelet poor plasma by coagulation assay - 10/17/17 10:30 Prothrombin time (PT) in platelet poor plasma by coagulation assay 11.9 s 12.2-14.7 INR in platelet poor plasma or blood by coagulation assay 0.9 0.8-1.4 Activated partial thromboplastin time (aPTT) in platelet poor plasma bycoagulation assay - 10/17/17 10:30 Activated partial thromboplastin time (aPTT) in platelet poor plasma bycoagulation assay 28 s 24-35 Complete blood count (CBC) with automated white blood cell (WBC) differential - 10/17/17 10:30 Blood leukocytes automated count (number/volume) 11.7 10*3/uL 4.3-11.0 Blood erythrocytes automated count (number/volume) 4.98 10*6/uL 4.35-5.85 Venous blood hemoglobin measurement (mass/volume) 15.2 g/dL 13.3-17.7 Blood hematocrit (volume fraction) 44 % 40-54 Automated erythrocyte mean corpuscular volume 87 [foz_us] 80-99 Automated erythrocyte mean corpuscular hemoglobin (mass per erythrocyte) 31 pg 25-34 Automated erythrocyte mean corpuscular hemoglobin concentration measurement ( mass/volume) 35 g/dL 32-36 Automated erythrocyte distribution width ratio 13.8 % 10.0-14.5 Automated blood platelet count (count/volume) 183 10*3/uL 130-400 Automated blood platelet mean volume measurement 10.9 [foz_us] 7.4-10.4 Automated blood neutrophils/100 leukocytes 65 % 42-75 Automated blood lymphocytes/100 leukocytes 24 % 12-44 Blood monocytes/100 leukocytes 8 % 0-12 Automated blood eosinophils/100 leukocytes 2 % 0-10 Automated blood basophils/100 leukocytes 1 % 0-10 Blood neutrophils automated count (number/volume) 7.6 10*3 1.8-7.8 Blood lymphocytes automated count (number/volume) 2.8 10*3 1.0-4.0 Blood monocytes automated count (number/volume) 0.9 10*3 0.0-1.0 Automated eosinophil count 0.3 10*3/uL 0.0-0.3 Automated blood basophil count (count/volume) 0.1 10*3/uL 0.0-0.1 Comprehensive metabolic panel - 10/17/17 10:30 Serum or plasma sodium measurement (moles/volume) 135 mmol/L 135-145 Serum or plasma potassium measurement (moles/volume) 4.0 mmol/L 3.6-5.0 Serum or plasma chloride measurement (moles/volume) 102 mmol/L 98-107 Carbon dioxide 22 mmol/L 21-32 Serum or plasma anion gap determination (moles/volume) 11 mmol/L 5-14 Serum or plasma urea nitrogen measurement (mass/volume) 15 mg/dL 7-18 Serum or plasma creatinine measurement (mass/volume) 0.77 mg/dL 0.60-1.30 Serum or plasma urea nitrogen/creatinine mass ratio 19 NRG Serum or plasma creatinine measurement with calculation of estimated glomerular filtration rate > NRG Serum or plasma glucose measurement (mass/volume) 192 mg/dL 70-105 Serum or plasma calcium measurement (mass/volume) 9.4 mg/dL 8.5-10.1 Serum or plasma total bilirubin measurement (mass/volume) 0.7 mg/dL 0.1-1.0 Serum or plasma alkaline phosphatase measurement (enzymatic activity/volume) 73 U/L 40-136 Serum or plasma aspartate aminotransferase measurement (enzymatic activity/ volume) 21 U/L 5-34 Serum or plasma alanine aminotransferase measurement (enzymatic activity/volume ) 31 U/L 0-55 Serum or plasma protein measurement (mass/volume) 7.3 g/dL 6.4-8.2 Serum or plasma albumin measurement (mass/volume) 4.0 g/dL 3.2-4.5 Magnesium - 10/17/17 10:30 Magnesium 2.0 mg/dL 1.8-2.4 Serum or plasma troponin i.cardiac measurement (mass/volume) - 10/17/17 10:30 Serum or plasma troponin i.cardiac measurement (mass/volume) < ng/ mL <0.30 Myoglobin, serum - 10/17/17 10:30 Myoglobin, serum 31.2 ng/mL 10.0-92.0 Complete urinalysis with reflex to culture - 10/17/17 12:46 Urine color determination YELLOW NRG Urine clarity determination CLEAR NRG Urine pH measurement by test strip 7 5-9 Specific gravity of urine by test strip 1.010 1.016- 1.022 Urine protein assay by test strip, semi-quantitative 1+ NEGATIVE Urine glucose detection by automated test strip 4+ NEGATIVE Erythrocytes detection in urine sediment by light microscopy NEGATIVE NEGATIVE Urine ketones detection by automated test strip NEGATIVE NEGATIVE Urine nitrite detection by test strip NEGATIVE NEGATIVE Urine total bilirubin detection by test strip NEGATIVE NEGATIVE Urine urobilinogen measurement by automated test strip (mass/volume) NORMAL NORMAL Urine leukocyte esterase detection by dipstick NEGATIVE NEGATIVE Automated urine sediment erythrocyte count by microscopy (number/high power field) NONE NRG Automated urine sediment leukocyte count by microscopy (number/high power field ) NONE NRG Bacteria detection in urine sediment by light microscopy NEGATIVE NRG Squamous epithelial cells detection in urine sediment by light microscopy RARE NRG Crystals detection in urine sediment by light microscopy NONE NRG Casts detection in urine sediment by light microscopy NONE NRG Mucus detection in urine sediment by light microscopy NEGATIVE NRG Complete urinalysis with reflex to culture NO NRG Bacteria identification in isolate by anaerobe culture - 07/15/18 09:09 QUANTITY OF GROWTH . NRG Bacteria identification in isolate by anaerobe culture PROGRESS NRG Gram stain microscopy - 07/15/18 09:09 Gram stain microscopy No bacteria seen NRG Bacteria identification in wound by culture - 07/15/18 09:09 Bacteria identification in wound by culture [id number] NRG FREE TEXT EXTERNAL ID REPORTED 07/18/19 15:05 NRG QUANTITY OF GROWTH Rare NRG FREE TEXT ENTRY 2 SENSITIVITY REPORTED 07/20/18 10:06 NRG FREE TEXT ENTRY 3 CLINDAMYCIN RESISTANT WITHOUT INDUCTION NRG RML Sensitivity Panel - 07/15/18 09:09 Oxacillin susceptibility test by minimum inhibitory concentration 0.5 NRG Clindamycin susceptibility test by minimum inhibitory concentration > NRG Erythromycin susceptibility test by minimum inhibitory concentration > NRG Vancomycin susceptibility test by minimum inhibitory concentration 1 NRG Levofloxacin susceptibility test by minimum inhibitory concentration > NRG Rifampin susceptibility test by minimum inhibitory concentration <= NRG Cefazolin susceptibility test by minimum inhibitory concentration R NRG Linezolid susceptibility test by minimum inhibitory concentration < = NRG Penicillin G susceptibility test by minimum inhibitory concentration 0.25 NRG Moxifloxacin susceptibility test by minimum inhibitory concentration R NRG Minocycline susc ARMINDA <= NRG Gram stain microscopy - 07/21/18 15:08 Gram stain microscopy No bacteria seen NRG Comprehensive metabolic panel - 07/21/18 16:15 Serum or plasma sodium measurement (moles/volume) 137 mmol/L 135-145 Serum or plasma potassium measurement (moles/volume) 4.0 mmol/L 3.6-5.0 Serum or plasma chloride measurement (moles/volume) 105 mmol/L 98-107 Carbon dioxide 24 mmol/L 21-32 Serum or plasma anion gap determination (moles/volume) 8 mmol/L 5-14 Serum or plasma urea nitrogen measurement (mass/volume) 11 mg/dL 7-18 Serum or plasma creatinine measurement (mass/volume) 0.74 mg/dL 0.60-1.30 Serum or plasma urea nitrogen/creatinine mass ratio 15 NRG Serum or plasma creatinine measurement with calculation of estimated glomerular filtration rate > NRG Serum or plasma glucose measurement (mass/volume) 117 mg/dL 70-105 Serum or plasma calcium measurement (mass/volume) 9.4 mg/dL 8.5-10.1 Serum or plasma total bilirubin measurement (mass/volume) 0.3 mg/dL 0.1-1.0 Serum or plasma alkaline phosphatase measurement (enzymatic activity/volume) 89 U/L 40-136 Serum or plasma aspartate aminotransferase measurement (enzymatic activity/ volume) 8 U/L 5-34 Serum or plasma alanine aminotransferase measurement (enzymatic activity/volume ) 9 U/L 0-55 Serum or plasma protein measurement (mass/volume) 7.2 g/dL 6.4-8.2 Serum or plasma albumin measurement (mass/volume) 4.2 g/dL 3.2-4.5 CALCIUM CORRECTED 9.2 mg/dL 8.5-10.1 Encounters ACCT No. Visit Date/Time Discharge Status Pt. Type Provider Facility Loc./Unit Complaint [id number] 01/05/2015 10:37:00 01/05/2015 23:59:59 CLS Outpatient [facility]ISON[facility]UDEL DunnNYKatelynn Castellano [id number] 12/03/2014 08:49:00 12/03/2014 23:59:59 CLS Outpatient JUSTICE VARGAS MD [id number] 10/18/2014 15:07:00 10/18/2014 23:59:59 CLS Outpatient [facility] LIAISONTATYANA Dunn L [id number] 07/14/2014 08:47:00 07/14/2014 23:59:59 CLS Outpatient [facility] LIAISONRAUDELTATYANA L [id number] 06/30/2014 11:06:00 06/30/2014 23:59:59 CLS Outpatient [facility] LIAISONRAUDELTATYANA L [id number] 06/29/2014 11:05:00 06/29/2014 23:59:59 CLS Outpatient MADL [facility] SERV[facility] LIAISONMAXA L [id number] 06/23/2014 08:57:00 06/23/2014 23:59:59 CLS Outpatient JOSE VERDUZCO APRN [id number] 06/23/2014 08:57:00 06/23/2014 23:59:59 CLS Outpatient [facility], JOSE S [id number] 05/19/2014 06:36:00 05/19/2014 23:59:59 CLS Outpatient TATIANA DO NELI Hernandez [id number] 05/12/2014 15:51:00 05/12/2014 23:59:59 CLS Outpatient SIMPSON DO NELI Hernandez [id number] 05/12/2014 15:51:00 05/12/2014 23:59:59 CLS Outpatient [facility] LIAISONTATYANA L [id number] 04/09/2014 13:44:00 04/09/2014 23:59:59 CLS Outpatient [facility] LIAISONMAXA L [id number] 03/30/2014 12:51:00 03/30/2014 23:59:59 CLS Outpatient WESLEY LS, FERNANDA R [id number] 03/12/2014 14:10:00 03/12/2014 23:59:59 CLS Outpatient WESLEY LSFERNANDA [id number] 03/05/2014 09:24:00 03/05/2014 23:59:59 CLS Outpatient TATIANA DONELI David [id number] 02/09/2014 13:28:00 02/09/2014 23:59:59 CLS Outpatient [facility] LIAISONTATYANA L [id number] 02/03/2014 00:00:00 02/03/2014 23:59:59 CLS Outpatient [facility] LIAISONMAXA L [id number] 02/01/2014 16:00:00 02/01/2014 23:59:59 CLS Outpatient [facility] LIAISONMAXA L [id number] 12/31/2013 10:31:00 12/31/2013 23:59:59 CLS Outpatient SIMPSON DOPETERKatelynn Hernandez [id number] 12/17/2013 10:09:00 12/17/2013 23:59:59 CLS Outpatient SIMPSON DONELI [id number] 10/23/2013 11:11:00 10/23/2013 23:59:59 CLS Outpatient PATY LATHAM MD [id number] 08/27/2013 14:44:00 08/27/2013 23:59:59 CLS Outpatient TESSA MCKEON MD [id number] 07/16/2013 07:30:00 07/16/2013 23:59:59 CLS Outpatient SIMPSON DONELI [id number] 07/08/2013 10:23:00 07/08/2013 23:59:59 CLS Outpatient PATY LATHAM MD [id number] 06/09/2013 11:23:00 06/09/2013 23:59:59 CLS Outpatient PATY LATHAM MD [id number] 12/02/2012 09:20:00 12/02/2012 23:59:59 CLS Outpatient PATY LATHAM MD [id number] 11/27/2012 12:48:00 11/27/2012 23:59:59 CLS Outpatient [id number] 11/24/2012 13:51:00 11/24/2012 23:59:59 CLS Outpatient [id number] 11/07/2012 15:04:00 11/07/2012 23:59:59 CLS Outpatient [id number] 10/28/2012 10:45:00 10/28/2012 23:59:59 CLS Outpatient TESSA MCKEON MD [id number] 10/23/2012 10:26:00 10/23/2012 23:59:59 CLS Outpatient [id number] 10/08/2012 09:50:00 10/08/2012 23:59:59 CLS Outpatient PATY LATHAM MD [id number] 09/22/2012 14:19:00 09/22/2012 23:59:59 CLS Outpatient TESSA MCKEON MD [id number] 09/08/2012 08:08:00 09/08/2012 23:59:59 CLS Outpatient PATY LATHAM MD [id number] 08/22/2012 13:36:00 08/22/2012 23:59:59 [place] [id number] 08/15/2012 14:45:00 08/15/2012 23:59:59 CLS Outpatient JUDY MERCER APRN [id number] 05/01/2013 09:35:00 Document Registration [id number] 04/16/2013 09:41:00 Document Registration [id number] 04/01/2013 08:30:00 Document Registration [id number] 02/26/2013 15:23:00 Document Registration [id number] 01/20/2013 13:55:00 Document Registration [id number] 01/06/2013 13:52:00 Document Registration [id number] 07/22/2018 05:45:00 07/22/2018 09:28:00 DIS Outpatient BRENDON PLUNKETT DO [facility] PREOP BRONCHOSCOPY [id number] 07/15/2018 09:45:00 07/15/2018 23:59:59 CLS Outpatient LIZZETTE OLSON [facility] [place] [id number] 07/15/2018 08:08:00 07/15/2018 23:59:59 CLS Outpatient LIZZETTE OLSON [facility] WOUNDCARE [id number] 06/02/2018 07:45:00 06/02/2018 07:45:00 CAN Preadmit LEEANN APODACAINE E [facility] RAD PULMONARY NODULE, CHRONIC BRONCHITIS [id number] 05/23/2018 10:15:00 05/23/2018 10:15:00 CAN Preadmit LEEANN APODACAINE E [facility] RAD J20.9 [id number] 12/23/2017 08:15:00 12/23/2017 23:59:59 CLS Preadmit ADITYA APODACA [facility] PULM J84.9,R09.02,R06.00, Z72.0 [id number] 11/07/2017 09:00:00 12/22/2017 00:01:00 DIS Outpatient LEEANN APODACAINE Nisha [facility] PULM J84.9,R09.02, R06.00,Z72.0 [id number] 10/17/2017 10:23:00 10/17/2017 14:26:00 DIS Emergency ILIA WALLIS, NERIS Jeffery [facility] ER DIZZY [id number] 10/14/2017 08:28:00 10/14/2017 23:59:59 CLS Outpatient ADITYA APODACA [facility] RT J84.9 ILD [id number] 10/07/2017 09:58:00 10/07/2017 23:59:59 CLS Preadmit CONSTANZALEEANN MCKEONINE E [facility] SLEEP G47.33 RENAE [id number] 08/27/2017 10:54:00 08/27/2017 23:59:59 CLS Outpatient ADITYA APODACA APRN [facility] LAB J20.9 J84.9 R06.00 M35.00 [id number] 08/05/2017 19:10:00 08/06/2017 16:28:00 DIS Inpatient NINFA VU MD [facility] 4TH PNEUMONIA CAP W SEPTIC TW ,DEHYDRATION VOLUME DEPLE [id number] 07/15/2017 10:22:00 07/15/2017 13:59:00 DIS Emergency IVÁN GRACE APRN [facility] ER SOB [id number] 07/03/2017 15:44:00 07/03/2017 17:59:00 DIS Emergency LILIBETH DURAN MD [facility] ER ALLERGIC REACTION TO MEDICATION [id number] 07/03/2017 02:29:00 07/03/2017 06:18:00 DIS Emergency DALE BRANCH MD [facility] ER RT SIDE PAIN [id number] 06/25/2017 13:45:00 06/25/2017 23:59:59 CLS Preadmit MADL, TATYANA L CASTING SUPERVISOR [facility] RAD RLQ ABD PAIN [id number] 05/09/2017 14:26:00 05/09/2017 23:59:59 CLS Outpatient BRENDON PLUNKETT DO [facility] RAD PULMONARY NODULE [id number] 02/07/2017 13:51:00 02/07/2017 23:59:59 CLS Outpatient MADL, TATYANA L CASTING SUPERVISOR [facility] RAD M79.622 LEFT UPPER ARM PAIN [id number] 01/26/2017 10:49:00 01/26/2017 23:59:59 CLS Outpatient KIMBER WORRELL MD [facility] RAD RTC PARTIAL LEFT M75.112 [id number] 11/08/2016 16:25:00 11/08/2016 20:15:00 DIS Emergency IVÁN GRACE APRN [facility] ER STROKE SYMPTOMS [id number] 11/05/2016 12:59:00 11/05/2016 23:59:59 CLS Outpatient ADITYA APODACA APRN [facility] RAD SOB,PULMONARY NODULE,INTERSTITIAL LUNG DISEASE [id number] 09/24/2016 10:39:00 09/24/2016 13:42:00 DIS Emergency RONA ENRIQUE MD [facility] ER COUGH, CONGESTION, POSSIBLE PNEUMONIA [id number] 07/19/2016 10:30:00 08/15/2016 11:10:00 DIS Outpatient KIMEBR WORRELL MD [facility] REHAB S/P R SHLD SCOPE, BICEP TENOTOMY AND ACROMIOPLASTY [id number] 08/06/2016 12:53:00 08/06/2016 23:59:59 CLS Outpatient ADITYA APODACA APRN [facility] RAD DYSPNEA,SOB, TOBACCO USER [id number] 06/27/2016 07:25:00 06/27/2016 12:50:00 DIS Outpatient KIMBER WORRELL MD [facility] SDC RIGHT PARTIAL TORN ROTATOR CUFF [id number] 06/21/2016 10:42:00 06/21/2016 11:15:00 DIS Outpatient KIMBER WORRELL MD [facility] PREOP RIGHT PARTIAL TORN ROTATOR CUFF [id number] 06/13/2016 11:42:00 06/13/2016 23:59:59 CLS Outpatient BRENDON PLUNKETT DO [facility] RT DYSPNEA AND RESPIRATORY ABNORMALITIES [id number] 05/29/2016 07:59:00 05/29/2016 23:59:59 CLS Outpatient KIMBER WORRELL MD [facility] RAD ROTATOR CUFF TEAR [id number] 03/13/2016 18:53:00 03/14/2016 10:20:00 DIS Inpatient NINFA VU MD [facility] ICU HYPOTENSION,MEDICATION SIDE EFFECT [id number] 01/02/2016 08:07:00 01/02/2016 23:59:59 CLS Outpatient TATYANA CHAPPELL [facility] RAD PAIN IN RT UPPER EXT [id number] 10/24/2015 09:45:00 10/24/2015 14:15:00 DIS Inpatient JUSTICE VARGAS MD [facility] CSD CHEST PAIN [id number] 09/12/2015 07:30:00 09/12/2015 23:59:59 CLS Outpatient NONI CAMPBELL MD [facility] RAD RIGHT UPPER QUADRANT PAIN [id number] 07/22/2015 08:49:00 07/22/2015 12:20:00 DIS Outpatient NONI CAMPBELL MD [facility] SDC HX OF POLYPS, BLOOD IN STOOL, ABD. PAIN [id number] 07/19/2015 05:46:00 07/19/2015 23:59:59 CLS Outpatient NONI CAMPBELL MD [facility] PREOP HX COLON POLYPS, BLOOD IN STOOL, ABD. PAIN [id number] 07/12/2015 19:25:00 07/13/2015 00:08:00 DIS Emergency LILIBETH DURAN MD [facility] ER ABD PAIN/BLOATING [id number] 06/01/2015 20:23:00 06/01/2015 21:54:00 DIS Emergency TODD DAWSON [facility] ER BACK,NECK PAIN [id number] 02/21/2015 13:30:00 02/21/2015 23:59:59 CLS Preadmit TATYANA CHAPPELLP [facility] CARD CP [id number] 11/22/2014 13:10:00 02/20/2015 00:01:00 DIS Outpatient TATYANA CHAPPELL CASTING SUPERVISOR [facility] CARD CP [id number] 01/30/2015 11:25:00 01/30/2015 13:37:00 DIS Emergency IVÁN GRACE APRN [facility] ER DIARRHEA/NAUSEA [id number] 01/21/2015 08:30:00 01/21/2015 23:59:59 CLS Preadmit EDGAR PRIEST MD [facility] CARD SIJD [id number] 01/02/2015 22:26:00 01/03/2015 02:01:00 DIS Emergency LILIBETH DURAN MD [facility] ER NAUSEA;SOA;LIGHT HEADED [id number] 12/28/2014 12:48:00 12/28/2014 23:59:59 CLS Outpatient MONICA LANGE [facility] CARD CAD,CP,HLP, HTN [id number] 12/16/2014 09:11:00 12/16/2014 23:59:59 CLS Outpatient TATYANA CHAPPELLP [facility] RAD BACK PAIN [id number] 12/03/2014 20:57:00 12/03/2014 22:24:00 DIS Emergency IVÁN GRACE APRN [facility] ER R HIP PAIN [id number] 04/26/2014 11:01:00 04/26/2014 23:59:59 CLS Outpatient BRENDON PLUNKETT DO [facility] RAD LUNG DISEASE,RENAE [id number] 04/10/2014 00:25:00 04/11/2014 15:40:00 DIS Inpatient TESSA MCKEON MD [facility] ICU INTENTIONAL DRUG OVERDOSE ;SUICIDE ATTEMPT [id number] 03/26/2014 09:48:00 03/26/2014 23:59:59 CLS Outpatient JULIET MACE DO [facility] RAD TRANSIENT CONFUSION [id number] 03/11/2014 21:34:00 03/12/2014 00:08:00 DIS Emergency JULIET MACE DO [facility] ER CONFUSION [id number] 02/25/2014 08:30:00 02/25/2014 10:01:00 DIS Outpatient TATYANA CHAPPELL CASTING SUPERVISOR [facility] WOUNDCARE DIABETE RIGHT FOOT ULCER [id number] 01/20/2014 11:31:00 01/20/2014 14:27:00 DIS [facility] [id number] 01/13/2014 07:30:00 01/13/2014 23:59:59 CLS Outpatient BRENDON PLUNKETT DO [facility] PREOP LUNG NODULE [id number] 12/15/2013 17:39:00 12/15/2013 19:42:00 DIS Emergency TODD DAWSON [facility] ER BILAT FEET SWOLLEN TOES [id number] 12/11/2013 17:54:00 12/11/2013 19:11:00 DIS Emergency ALEXI CARVALHO MD [facility] ER HIGH BLOOD SUGAR, BLURRY VISION [id number] 12/03/2013 11:16:00 12/03/2013 23:59:59 CLS Outpatient BRENDON PLUNKETT DO [facility] PREOP NODULE [id number] 11/20/2013 08:05:00 11/20/2013 23:59:59 CLS Outpatient BRENDON PLUNKETT DO [facility] PREOP INTERSTITIAL LUNG DISEASE; RIGHT LUNG NODULE [id number] 11/19/2013 12:54:00 11/19/2013 23:59:59 CLS Outpatient BRENDON PLUNKETT DO [facility] RT LUNG DISEASE,RENAE [id number] 11/17/2013 10:11:00 11/17/2013 23:59:59 CLS Outpatient JUSTICE VARGAS MD [facility] LAB CP,HTN,LLBBB [id number] 11/16/2013 21:09:00 11/17/2013 06:25:00 DIS Outpatient BRENDON PLUNKETT DO [facility] SLEEP RENAE,LUNG DISEASE [id number] 11/13/2013 12:24:00 11/13/2013 23:59:59 CLS Outpatient BRENDON PLUNKETT DO [facility] RAD LUNG DISEASE,RENAE,IDDM, LBBB,PALPITATIONS [id number] 10/05/2013 00:45:00 10/05/2013 15:00:00 DIS Inpatient NELI SIMPSON DO [facility] CSD CHEST PAIN;DIABETES; LEUKOCYTOSIS [id number] 06/30/2013 09:37:00 06/30/2013 23:59:59 CLS Outpatient MICHELLE WINTER MD [facility] RAD SOB,ILD [id number] 06/07/2013 05:13:00 06/07/2013 07:17:00 DIS Emergency JULIET MACE DO [facility] ER ABD PAIN [id number] 05/31/2013 14:26:00 06/04/2013 16:35:00 DIS Inpatient PATY LATHAM MD [facility] ICU NARCOTIC WITHDRAWL [id number] 05/07/2013 09:02:00 05/07/2013 23:59:59 CLS Outpatient PATY LATHAM MD [facility] CARD SOB,HX OF LT BBB, CYSTOLIC DYSFUNCTION [id number] 04/02/2013 16:49:00 04/04/2013 14:45:00 DIS Inpatient MIKE WALLIS, TESSA Zhang [facility] 4TH HYPOXIA,SOB [id number] 04/01/2013 20:00:00 04/02/2013 05:30:00 DIS Outpatient PATY LATHAM MD [facility] SLEEP SNORING,CHOKING/ GASPING,HTN,MOOD DISORDER,OA, [id number] 02/26/2013 06:39:00 02/26/2013 08:45:00 DIS Emergency RONA ENRIQUE MD [facility] ER SHAKING,ARM PAIN,DRUG WITHDRAWL [id number] 02/25/2013 22:28:00 02/26/2013 02:53:00 DIS Emergency JULIET MACE DO [facility] ER L EXTREMITY PAIN [id number] 02/04/2013 09:24:00 02/04/2013 16:00:00 DIS Outpatient PATY LATHAM MD [facility] RAD CERVICAL REGION DISORDER,SOB,LEUKOCYTOSIS [id number] 07/23/2018 07:30:00 PEN Preadmit BRENDON PLUNKETT DO [facility] ENDO HYPOXEMIA/LUNG DISEASE/PULMONARY NODULE/RENAE /SJOGRE [id number] 07/21/2018 16:03:00 ACT Outpatient KIMBER STAPLES MD [facility] LAB TYPE 2 DIABETES MELLITUS WITH FOOT ULCER [id number] 07/21/2018 14:30:00 ACT Outpatient KIMBER STAPLES MD [facility] WOUNDCARE [id number] 07/03/2017 18:01:00 Document Registration [id number] 07/03/2017 18:01:00 Document Registration [id number] 12/03/2014 11:18:00 Document Registration [id number] 12/16/2012 07:55:00 Document Registration [id number] 08/13/2012 19:15:00 Document Registration [id number] 08/05/2012 11:50:00 Document Registration [id number] 10/24/2010 16:40:00 Document Registration [id number] 12/26/2007 11:03:00 Document Registration [id number] 09/03/2017 14:00:00 09/03/2017 23:59:59 CLS Outpatient [facility], TATYANA Castellano [facility]
[2018-07-23] MEDS ORDERED: LACTATED RINGERS 1,000 ML IV ONE (07:09)
[2018-07-23] MEDS ORDERED: SUCCINYLCHOLINE INJ 100 MG/5 ML SYR ONE (07:29)
[2018-07-23] MEDS ORDERED: ONDANSETRON 4 MG/2 ML (SDV) Z0FRAN ONE (07:29)
[2018-07-23] MEDS ORDERED: proPOfol 200 MG/20 ML (DIPRIVAN) VIAL IV ONE (07:29)
[2018-07-23] MEDS ORDERED: MIDAZOLAM 2 MG/2 ML (VERSED) VIAL ONE (07:29)
[2018-07-23] MEDS ORDERED: LACTATED RINGERS 1,000 ML IV STA (07:33)
[2018-07-23 07:38] VITALS: BP 143/85
[2018-07-23] MEDS ORDERED: fentaNYL INJECTION 100 MCG/2 ML AMP ONE (07:39)
--- NOTE | 2018-07-23 07:51 | Progress Note-Pre Operative ---
Pre-Operative Progress Note H&P Reviewed The H&P was reviewed, patient examined and no changes noted. Time Seen by Provider: 07:50 Date H&P Reviewed: Jul 23, 2018 Time H&P Reviewed: 07:50 Pre-Operative Diagnosis: BRENDON Reyes DO Jul 23, 2018 07:50
[2018-07-23] MEDS ORDERED: ROCURONIUM 10 MG/ML 5 ML SYRINGE IV ONE (07:57)
[2018-07-23] MEDS ORDERED: SEVOFLURANE (ULTANE) 15 ML INHAL SOLN ONE (08:26)
[2018-07-23 09:15] VITALS: BP 146/70
[2018-07-23 09:40] VITALS: BP 145/90
--- NOTE | 2018-07-23 09:50 | Diagnostic Imaging Report ---
INDICATION: Status post bronchoscopy. TIME OF EXAM 9:12 AM COMPARISON is made with prior exam from 10/17/2017. FINDINGS: The heart size is stable. There are interstitial changes in both lungs. No pneumothorax is seen, status post bronchoscopy. There is no effusion. Postop changes in the lower cervical spine are noted. IMPRESSION: There are generalized interstitial changes. No pneumothorax is seen status post bronchoscopy. Dictated by: Dictated on workstation # [id number]
[2018-07-23 10:10] VITALS: BP 145/90
== END 2018-07-23 10:11 | disposition home or self-care (01) ==
LOC: ENDO 06:35
PROVIDERS: ATTEND Internal Medicine Critical Care Medicine
DX: J84.9 Interstitial pulmonary disease, unspecified (principal); R91.1 Solitary pulmonary nodule; F17.210 Nicotine dependence, cigarettes, uncomplicated; G47.33 Obstructive sleep apnea (adult) (pediatric); R09.02 Hypoxemia; J44.9 Chronic obstructive pulmonary disease, unspecified; M35.00 Sjogren syndrome, unspecified; I10 Essential (primary) hypertension; I20.9 Angina pectoris, unspecified; E11.40 Type 2 diabetes mellitus with diabetic neuropathy, unspecified; F41.9 Anxiety disorder, unspecified; K21.9 Gastro-esophageal reflux disease without esophagitis; Z86.19 Personal history of other infectious and parasitic diseases; Z79.899 Other long term (current) drug therapy; Z79.4 Long term (current) use of insulin; Z79.82 Long term (current) use of aspirin
CPT/HCPCS: 71045; 82962; 87015; 87070; 87077; 87101; 87116; 87186; 87205; 87206; 88112; 88305; 88312

== ENCOUNTER → 2018-07-28 | Outpatient (CLI) | payer MEDICARE | LOC: WOUNDCARE 13:59 | PROVIDERS: ATTEND Nurse Practitioner | DX: L97.514 Non-pressure chronic ulcer of other part of right foot with necrosis of bone (principal); E11.621 Type 2 diabetes mellitus with foot ulcer; M86.472 Chronic osteomyelitis with draining sinus, left ankle and foot; Z72.0 Tobacco use | CPT/HCPCS: 11042 ==

== ENCOUNTER → 2018-07-29 | Outpatient (CLI) | payer MEDICARE ==
--- NOTE | 2018-07-29 12:23 | Diagnostic Imaging Report ---
INDICATION: Lung mass. TECHNIQUE: Serum blood glucose level at the time of injection was 153 mg/dL. The patient was administered 11.4 mCi of F-18 FDG intravenously in right antecubital region, and PET imaging was performed from the top of the skull to the mid thighs. Noncontrast CT was also performed for attenuation correction and anatomic correlation. COMPARISON: No prior PET/CT studies are available for comparison. Comparison is made with a CT angiogram of the chest performed 08/06/2017. FINDINGS: Symmetric activity within the brain is identified. Soft tissues of the neck are unremarkable. No mediastinal or hilar hypermetabolism is seen. No hypermetabolism within the chang-fissural nodules previously described in the left lung is seen. No parenchymal hypermetabolism is identified. Imaging through the abdomen does show physiologic activity within the GI and tracts. CT portion of the study does show stable left lung chang-fissural nodules when compared with one year earlier. There appears to be unchanged mediastinal and hilar lymphadenopathy. IMPRESSION: Unremarkable PET scan. No suspicious hypermetabolism is seen. Dictated by: Dictated on workstation # [id number]
== END ==
LOC: RAD 08:33
PROVIDERS: ATTEND Nurse Practitioner Family
DX: R91.8 Other nonspecific abnormal finding of lung field (principal)

== ENCOUNTER → 2018-08-04 | Outpatient (CLI) | payer MEDICARE | LOC: WOUNDCARE 14:22 | PROVIDERS: ATTEND Nurse Practitioner | DX: E11.621 Type 2 diabetes mellitus with foot ulcer (principal); L97.524 Non-pressure chronic ulcer of other part of left foot with necrosis of bone; M86.472 Chronic osteomyelitis with draining sinus, left ankle and foot; Z72.0 Tobacco use | CPT/HCPCS: 11042 ==

== ENCOUNTER 2018-08-11 09:30 | Outpatient (CLI) | payer MEDICARE ==
[~2018-08-11] VITALS: Ht 188 cm; Wt 104.3 kg
== END 2018-08-11 10:04 | disposition home or self-care (01) ==
LOC: PREOP 09:30
PROVIDERS: ATTEND Internal Medicine Critical Care Medicine
DX: Z01.818 Encounter for other preprocedural examination (principal)

== ENCOUNTER → 2018-08-11 | Outpatient (CLI) | payer MEDICARE | LOC: WOUNDCARE 14:30 | PROVIDERS: ATTEND Nurse Practitioner | DX: E11.621 Type 2 diabetes mellitus with foot ulcer (principal); L97.524 Non-pressure chronic ulcer of other part of left foot with necrosis of bone; M86.472 Chronic osteomyelitis with draining sinus, left ankle and foot; Z72.0 Tobacco use | CPT/HCPCS: 11042 ==

== ENCOUNTER 2018-08-13 06:54 | Day surgery (SDC) | payer MEDICARE ==
[~2018-08-13] VITALS: Ht 188 cm; Wt 104.3 kg
[2018-08-13] MEDS ORDERED: LIDOCAINE JELLY 2% (XYLOCAINE) 30 ML TUBE TOP ONE (06:55)
--- OUTSIDE RECORDS SUMMARY | 2018-08-13 06:57 | XMS REPORT | Clinical Summary ---
Author Author [facility] Organization [facility] Address Unknown Phone Unavailable Care Team Providers Care Twister In Name Role Phone Bashir Paula MD Unavailable Amol Soliz MD Unavailable Ashley Haddad MD PCP Source Comments Some departments are not documenting in the electronic medical record. If you do not see the information that you expected, contact Release of Information in the Health Information Management department at [phone] for further assistance in locating additional records.[facility] Allergies Active Allergy Reactions Severity Noted [...] Shortness of Breath. Shake well before use. gzjsnbqeudw-yxsfarfhay-nq Inject 0.25 mL into base 10 mL [...] for injection teaching ILD (interstitial lung disease) ([facility]) 06/29/2013 Dyspnea 06/29/2013 Long-term use of immunosuppressant [...] C SCREENING 1962 PHYSICAL (COMPREHENSIVE) 1969 EXAM HIV SCREENING 1977 DTAP/TDAP VACCINES (1 - 1980 Tdap) COLORECTAL CANCER 2012 SCREENING SHINGLES RECOMBINANT 2012 VACCINE (1 of 2) INFLUENZA VACCINE 04/16/2018 Results Not on filefrom Last 3 Months
[2018-08-13] MEDS ORDERED: LACTATED RINGERS 1,000 ML IV ONE (06:59)
[2018-08-13] MEDS ORDERED: LACTATED RINGERS 1,000 ML IV STA (07:15)
[2018-08-13 07:28] VITALS: BP 155/89
[2018-08-13] MEDS ORDERED: fentaNYL INJECTION 100 MCG/2 ML AMP ONE (07:39)
[2018-08-13] MEDS ORDERED: PROPOFOL INJECTION 50 ML IV ONE ×2 (07:39→08:35)
[2018-08-13] MEDS ORDERED: proPOfol 200 MG/20 ML (DIPRIVAN) VIAL IV ONE ×2 (07:39→08:22)
[2018-08-13] MEDS ORDERED: MIDAZOLAM 2 MG/2 ML (VERSED) VIAL ONE (07:40)
[2018-08-13] MEDS ORDERED: LIDOCAINE PF 2% 5 ML (XYLOCAINE) VIAL ONE (07:40)
[2018-08-13] MEDS ORDERED: ONDANSETRON 4 MG/2 ML (SDV) Z0FRAN ONE (07:40)
[2018-08-13] MEDS ORDERED: GLYCOPYRROLATE 0.2 MG/ML (ROBINUL) 2 ML VIAL ONE (07:40)
[2018-08-13] MEDS ORDERED: NEOSTIGMINE 1 MG/ML 5 ML SYRINGE ONE (07:41)
[2018-08-13] MEDS ORDERED: ROCURONIUM 10 MG/ML 5 ML SYRINGE IV ONE (07:41)
[2018-08-13] MEDS ORDERED: morphine INJ 10 MG/ML 1ML (SYR OR VIAL) IVP ONE (07:45)
[2018-08-13] MEDS ORDERED: ONDANSETRON 4 MG/2 ML (SDV) Z0FRAN IVP PRN (07:45)
[2018-08-13] MEDS ORDERED: PHENYLEPHRINE 100 MCG/ML 10 ML (ANESTHESIA) SYR ONE (08:17)
[2018-08-13 09:40] VITALS: BP 148/72
--- NOTE | 2018-08-13 09:55 | Diagnostic Imaging Report ---
CLINICAL INDICATION: Patient post bronchoscopy. EXAM: Portable chest X-ray upright view. COMPARISON: Portable chest X-ray dated 07/23/2018. FINDINGS: There is stable appearance of the lung field with interstitial prominence. There is no interval lung infiltrate. Increased lung markings seen throughout both lungs. Of note, the lateral and inferior aspect of the left costophrenic angle is obscured. Otherwise there is no evidence of pleural effusion. There is no pneumothorax. Pulmonary vasculature and heart silhouettes are within normal limits. Incompletely imaged anterior cervical disc fusion is seen involving the lower cervical spine. There are degenerative spurs involving the thoracic spine. IMPRESSION: 1: Stable chest X-ray exam with chronic-appearing lung changes with interstitial prominence. 2: There is no evidence of interval acute lung finding. There is no pneumothorax or pleural effusion, as visualized. Dictated by: Dictated on workstation # [id number]
[2018-08-13 10:10] VITALS: BP 131/74
[2018-08-13 10:20] VITALS: BP 131/74
--- NOTE | 2018-08-13 10:23 | Anesthesia-General Post-Op ---
General Patient Condition Mental Status/LOC: Same as Preop Cardiovascular: Satisfactory Nausea/Vomiting: Absent Respiratory: Satisfactory Pain: Controlled Complications: Absent Post Op Complications Complications None Follow Up Care/Instructions Patient Instructions None needed. Anesthesia/Patient Condition Patient Condition Patient is doing well, no complaints, stable vital signs, no apparent adverse anesthesia problems. VIRGIL GORDON DO Aug 13, 2018 10:23
--- NOTE | 2018-09-03 07:19 | Pulmonary Procedures ---
Pulmonary Procedures Date of Procedure Date of Service: Sep 03, 2018 Bronch Bronchoscopy with bronchoalveolar lavage (BAL), transbronchial washes, forcep bx and, brushes. Percepta brush of dea also obtained. Preop DX LARON endobronchial lesion Postop DX: same (pictures taken) Complications: none After informed consent obtained and formal time out pt was sedated using Fentanyl and Versed. Bronchoscope was advanced through the nare and vocal cords. 1% lidocaine was used to anesthetize vocal cords, epiglottis, dea, and left/right main stem bronchus. An anatomical tour was undertaken down to the segmental bronchi bilaterally. endobronchial lesion LARON noted. Pictures taken. bronchoalveolar lavage (BAL), transbronchial washes, forcep bx and, brushes. Percepta brush of dea also obtained. . Pt tolerated procedure well. No complications noted. Stat CXR is pending. BRENDON PLUNKETT DO Sep 03, 2018 07:19
== END 2018-08-13 10:20 | disposition home or self-care (01) ==
LOC: ENDO 06:54
PROVIDERS: ATTEND Internal Medicine Critical Care Medicine
DX: J84.9 Interstitial pulmonary disease, unspecified (principal); M35.00 Sjogren syndrome, unspecified; J44.9 Chronic obstructive pulmonary disease, unspecified; G47.33 Obstructive sleep apnea (adult) (pediatric); R91.8 Other nonspecific abnormal finding of lung field; F17.200 Nicotine dependence, unspecified, uncomplicated; Z79.899 Other long term (current) drug therapy
CPT/HCPCS: 71045; 82962; 87015; 87070; 87077; 87101; 87116; 87186; 87205; 87206; 88112; 88305; 88312

== ENCOUNTER → 2018-08-14 | Outpatient (CLI) | payer MEDICARE ==
--- NOTE | 2018-08-14 11:15 | Diagnostic Imaging Report ---
EXAMINATION: PA and lateral chest at 9:52 a.m. INDICATION: Hemoptysis FINDINGS: The heart size is within normal limits and stable when compared to 08/13/2018. The lungs remain clear. There is still no sign of failure, pneumonia or pleural effusion. There is no pneumothorax identified either. The mediastinum is not widened. The osseous structures are intact. The orthopedic plate and screw fixation device overlying the lower cervical spine seen previous is again evident. IMPRESSION: Stable chest. There has been no adverse change since the prior exam. Dictated by: Dictated on workstation # [id number]
== END ==
LOC: RAD 09:12
PROVIDERS: ATTEND Nurse Practitioner Family
DX: R04.2 Hemoptysis (principal); R06.02 Shortness of breath; Z98.890 Other specified postprocedural states
CPT/HCPCS: 71046

== ENCOUNTER → 2018-08-18 | Outpatient (CLI) | payer MEDICARE | LOC: WOUNDCARE 14:47 | PROVIDERS: ATTEND Nurse Practitioner | DX: E11.621 Type 2 diabetes mellitus with foot ulcer (principal); L97.524 Non-pressure chronic ulcer of other part of left foot with necrosis of bone; M86.472 Chronic osteomyelitis with draining sinus, left ankle and foot; Z72.0 Tobacco use | CPT/HCPCS: 11042 ==

== ENCOUNTER → 2018-08-20 | Outpatient (CLI) | payer MEDICARE | LOC: WOUNDCARE 11:20 | PROVIDERS: ATTEND Orthopaedic Surgery Hand Surgery | DX: E11.621 Type 2 diabetes mellitus with foot ulcer (principal); M86.472 Chronic osteomyelitis with draining sinus, left ankle and foot; L97.522 Non-pressure chronic ulcer of other part of left foot with fat layer exposed; Z72.0 Tobacco use | CPT/HCPCS: 29445 ==

== ENCOUNTER → 2018-08-25 | Outpatient (CLI) | payer MEDICARE | LOC: WOUNDCARE 14:29 | PROVIDERS: ATTEND Nurse Practitioner | DX: E11.621 Type 2 diabetes mellitus with foot ulcer (principal); L97.522 Non-pressure chronic ulcer of other part of left foot with fat layer exposed; M86.472 Chronic osteomyelitis with draining sinus, left ankle and foot; Z72.0 Tobacco use | CPT/HCPCS: 11042 ==

== ENCOUNTER → 2018-09-01 | Outpatient (CLI) | payer MEDICARE | LOC: WOUNDCARE 14:32 | PROVIDERS: ATTEND Nurse Practitioner | DX: E11.621 Type 2 diabetes mellitus with foot ulcer (principal); L97.522 Non-pressure chronic ulcer of other part of left foot with fat layer exposed; M86.472 Chronic osteomyelitis with draining sinus, left ankle and foot; Z72.0 Tobacco use | CPT/HCPCS: 11042 ==

== ENCOUNTER → 2018-09-15 | Outpatient (CLI) | payer MEDICARE | LOC: WOUNDCARE 09:19 | PROVIDERS: ATTEND Nurse Practitioner | DX: E11.621 Type 2 diabetes mellitus with foot ulcer (principal); L97.522 Non-pressure chronic ulcer of other part of left foot with fat layer exposed; M86.472 Chronic osteomyelitis with draining sinus, left ankle and foot; Z72.0 Tobacco use | CPT/HCPCS: 11042 ==

== ENCOUNTER → 2018-09-23 | Outpatient (CLI) | payer MEDICARE | LOC: WOUNDCARE 11:08 | PROVIDERS: ATTEND Nurse Practitioner | DX: L97.522 Non-pressure chronic ulcer of other part of left foot with fat layer exposed (principal); M86.472 Chronic osteomyelitis with draining sinus, left ankle and foot; E11.621 Type 2 diabetes mellitus with foot ulcer; Z72.0 Tobacco use | CPT/HCPCS: 11042 ==

== ENCOUNTER → 2018-09-30 | Outpatient (CLI) | payer MEDICARE | LOC: WOUNDCARE 09:30 | PROVIDERS: ATTEND Surgery | DX: E11.621 Type 2 diabetes mellitus with foot ulcer (principal); L97.522 Non-pressure chronic ulcer of other part of left foot with fat layer exposed; M86.472 Chronic osteomyelitis with draining sinus, left ankle and foot; Z72.0 Tobacco use | CPT/HCPCS: 11042; 87070; 87075; 87077; 87205 ==

== ENCOUNTER → 2018-10-07 | Outpatient (CLI) | payer MEDICARE ==
[~2018-10-07] MED LIST changes: +LOSA25TA41 PO; -LOSA25TA6 PO; +METR-145 PO; -METR-197 PO; -PHEN118S12 PO; +PHEN118S29 PO
== END ==
LOC: WOUNDCARE 09:27
PROVIDERS: ATTEND Nurse Practitioner
DX: E11.621 Type 2 diabetes mellitus with foot ulcer (principal); L97.522 Non-pressure chronic ulcer of other part of left foot with fat layer exposed; M86.472 Chronic osteomyelitis with draining sinus, left ankle and foot; Z72.0 Tobacco use
CPT/HCPCS: 11042

== ENCOUNTER → 2018-10-14 | Outpatient (CLI) | payer MEDICARE | LOC: WOUNDCARE 09:25 | PROVIDERS: ATTEND Nurse Practitioner | DX: E11.621 Type 2 diabetes mellitus with foot ulcer (principal); L97.522 Non-pressure chronic ulcer of other part of left foot with fat layer exposed; M86.472 Chronic osteomyelitis with draining sinus, left ankle and foot; Z72.0 Tobacco use | CPT/HCPCS: 11042 ==

== ENCOUNTER → 2018-10-21 | Outpatient (CLI) | payer MEDICARE | LOC: WOUNDCARE 09:24 | PROVIDERS: ATTEND Nurse Practitioner | DX: E11.621 Type 2 diabetes mellitus with foot ulcer (principal); L97.522 Non-pressure chronic ulcer of other part of left foot with fat layer exposed; M86.472 Chronic osteomyelitis with draining sinus, left ankle and foot; Z72.0 Tobacco use | CPT/HCPCS: 11044; 87070; 87075; 87077; 87205 ==

== ENCOUNTER → 2018-10-22 | Outpatient (CLI) | payer MEDICARE | LOC: LAB 14:28 | PROVIDERS: ATTEND Nurse Practitioner | DX: E11.621 Type 2 diabetes mellitus with foot ulcer (principal) | CPT/HCPCS: 36415; 83036 ==

== ENCOUNTER 2018-10-27 05:32 | Outpatient (CLI) | payer MEDICARE ==
[~2018-10-27] VITALS: Ht 188 cm; Wt 104.3 kg
== END 2018-10-27 08:58 | disposition home or self-care (01) ==
LOC: PREOP 05:32
PROVIDERS: ATTEND Orthopaedic Surgery
DX: Z01.818 Encounter for other preprocedural examination (principal)

== ENCOUNTER → 2018-10-28 | Outpatient (CLI) | payer MEDICARE | LOC: WOUNDCARE 09:29 | PROVIDERS: ATTEND Nurse Practitioner | DX: E11.621 Type 2 diabetes mellitus with foot ulcer (principal); L97.522 Non-pressure chronic ulcer of other part of left foot with fat layer exposed; M86.472 Chronic osteomyelitis with draining sinus, left ankle and foot; Z72.0 Tobacco use | CPT/HCPCS: 11042 ==

== ENCOUNTER 2018-10-29 08:50 | Day surgery (SDC) | payer MEDICARE ==
--- NOTE | 2018-10-21 17:41 | HISTORY AND PHYSICAL ---
DATE OF SERVICE: This will be for outpatient surgery on 10/29/2018. His date of admission for outpatient surgery will be 10/29/2018 for left long finger trigger finger release. HISTORY OF PRESENT ILLNESS: The patient is a 58-year-old right hand dominant gentleman with 1 year history of left long finger catching and locking. He has undergone treatment with injections without relief. Reports activity limitations because of the finger. He reports no specific injuries. REVIEW OF SYSTEMS: No chest pain, no shortness of breath. No dysuria. PAST MEDICAL HISTORY: Significant for neuropathy, hypertension, interstitial lung disease, sleep apnea, reflux, hyperlipidemia, type 2 diabetes, degenerative disk disease of the lumbar spine, restless legs syndrome, TIA, depression, and alcohol dependence. PAST SURGICAL HISTORY: Cervical spine, heart catheterization with stents, right knee arthroscopy, right shoulder arthroscopy. SOCIAL HISTORY: The patient denies current alcohol or tobacco use. FAMILY HISTORY: Significant for cardiovascular disease, stroke, diabetes, and colon cancer. PRIMARY CARE PROVIDER: Dr. Haddad. MEDICATIONS: Lyrica, NovoLog, metoprolol, oxygen, Protonix, Symbicort, Spiriva, Singulair, Cozaar, atorvastatin, Percocet, and baclofen. ALLERGIES: CLONAZEPAM, TRAMADOL, HYDROCODONE, OPIOIDS, AND ROCEPHIN. PHYSICAL EXAMINATION: GENERAL: The patient is well developed, well nourished, in no acute distress. HEENT: Normocephalic, atraumatic. Pupils equal, round, reactive to light. Oropharynx is clear. NECK: Supple, no lymphadenopathy. LUNGS: Clear to auscultation bilaterally. HEART: Regular rate and rhythm. ABDOMEN: Soft, nontender, and nondistended. EXTREMITIES: Left long finger demonstrates tenderness over the A1 joseph. He has palpable nodule noted. He has full MCP, DIP and PIP flexion and extension, but triggering noted with full flexion. Sensation is intact distally. IMPRESSION: Left long finger trigger finger. PLAN: Left long finger A1 joseph release. We discussed risks, benefits, options, ramifications and recovery. He understands and wishes to proceed. Job ID: [id number] DocumentID: [id number] Dictated Date: 10/20/2018 14:59:24 Acct Exec Date: 10/20/2018 15:18:03 Dictated By: KIMBER WORRELL MD
[~2018-10-29] VITALS: Ht 188 cm; Wt 104.3 kg
[2018-10-29] MEDS ORDERED: LACTATED RINGERS 1,000 ML IV PRN (08:59)
[2018-10-29 09:00] VITALS: BP 153/83
[2018-10-29] MEDS ORDERED: CLINDAMYCIN 600 MG/50 ML IVPB 50 ML IV ONE ×2 (09:00→09:05)
[2018-10-29] MEDS ORDERED: LIDOCAINE 1% INJ 20 ML 20 ML VIAL ONE (09:11)
[2018-10-29] MEDS ORDERED: BUPIVACAINE 0.5% 30 ML (SENSORCAINE) VIAL ONE (09:11)
[2018-10-29] MEDS ORDERED: LIDOCAINE PF 2% 5 ML (XYLOCAINE) VIAL ONE (09:12)
[2018-10-29] MEDS ORDERED: fentaNYL INJECTION 100 MCG/2 ML AMP ONE (09:12)
[2018-10-29] MEDS ORDERED: MIDAZOLAM 2 MG/2 ML (VERSED) VIAL ONE (09:12)
[2018-10-29] MEDS ORDERED: proPOfol 200 MG/20 ML (DIPRIVAN) VIAL IV ONE (09:12)
--- NOTE | 2018-10-29 10:10 | Progress Note-Pre Operative ---
Pre-Operative Progress Note H&P Reviewed The H&P was reviewed, patient examined and no changes noted. Date Seen by Provider: Oct 29, 2018 Time Seen by Provider: 10:10 Date H&P Reviewed: Oct 29, 2018 Time H&P Reviewed: 10:10 Pre-Operative Diagnosis: left long finger trigger finger KIMBER WORRELL MD Oct 29, 2018 10:10
--- NOTE | 2018-10-29 10:12 | Progress Note-Post Operative ---
Post-Operative Progess Note Surgeon (s)/Tin Pot Operator (s) Surgeon KIMBER WORRELL MD Tin Pot Operator: Armando Jarrett Pre-Operative Diagnosis left long finger trigger finger Post-Operative Diagnosis left long finger trigger finger Procedure & Operative Findings Date of Procedure 10/29/18 Procedure Performed/Findings left long finger A1 joseph release Anesthesia Type MAC plus local Estimated Blood Loss Estimated blood loss (mL): minimal Specimens/Packing Specimens Removed none Packing: none KIMBER WORRELL MD Oct 29, 2018 10:12
[2018-10-29] MEDS ORDERED: oxyCODONE/APAP 5/325MG (PERCOCET 5) TABLET PO PRN (10:30)
--- NOTE | 2018-10-29 10:45 | Anesthesia-General Post-Op ---
MAC Patient Condition Mental Status/LOC: Same as Preop Cardiovascular: Satisfactory Nausea/Vomiting: Absent Respiratory: Satisfactory Pain: Controlled Complications: Absent Post Op Complications Complications None Follow Up Care/Instructions Patient Instructions None needed. Anesthesiology Discharge Order Discharge Order Patient is doing well, no complaints, stable vital signs, no apparent adverse anesthesia problems. No complications reported per nursing. DESTINI BENAVIDES CRNA Oct 29, 2018 10:45
[2018-10-29 11:10] VITALS: BP 144/88
[2018-10-29] MEDS ORDERED: OXYC-471 PO (11:38)
--- OUTSIDE RECORDS SUMMARY | 2018-10-29 11:38 | XMS REPORT | Clinical Summary ---
Author Author [facility] Organization [facility] Address Unknown Phone Unavailable Care Team Providers Care Piano Technician Name Role Phone Bashir Paula MD Unavailable Amol Soliz MD Unavailable Ashley Haddad MD PCP Source Comments Some departments are not documenting in the electronic medical record. If you do not see the information that you expected, contact Release of Information in the Health Information Management department at [phone] for further assistance in locating additional records.[facility] Allergies Comments Active Allergy Reactions Severity Noted Date Ceftriaxone ANAPHYLAXIS High 01/29/2018 Medications End Date Status Medication Sig Dispensed Refills Start Date Active metoprolol (LOPRESSOR) 50 Take 50 mg by 0 mg tablet mouth twice daily. Active esomeprazole DR(+) Take 40 mg by 0 (NEXIUM) 40 mg capsule mouth every morning. Active insulin detemir(+) Inject 40 0 (LEVEMIR) 100 unit/mL Units into Soln area(s) as directed daily before breakfast. Active insulin aspart (NOVOLOG) Inject 10 0 100 unit/mL injection Units into area(s) as directed three times daily with meals. Active pregabalin (LYRICA) 300 Take 300 mg 0 mg capsule by mouth twice daily. Active pantoprazole DR Take 40 mg by 0 (PROTONIX) 40 mg tablet mouth daily. Active losartan (COZAAR) 25 mg Take 25 mg by 0 tablet mouth daily. Active montelukast (SINGULAIR) Take 10 mg by 0 10 mg tablet mouth at bedtime daily. Active budesonide/formoterol Inhale 2 0 (SYMBICORT HFA) 80-4.5 puffs by mcg/actuation inhalation mouth into the lungs twice daily. Active tiotropium bromide Inhale 2 0 (SPIRIVA RESPIMAT) 1.25 puffs by mcg/actuation inhaler mouth into the lungs daily. Active albuterol (VENTOLIN HFA) Inhale 2 0 90 mcg/actuation inhaler puffs by mouth into the lungs every 6 hours as needed for Wheezing or Shortness of Breath. Shake well before use. Active kgqkoeglvnb-gbdfjylylo-by Inject 0.25 10 mL 3 entolamine(#)(+) mL into base 8 (TRI-MIX) 5.88-17.65-0.59 of penis as mcg-mg-mg/mL injection directed as Needed for Erectile dysfunction. Inject as directed. Titrate to lowest [...] for injection teaching ILD (interstitial lung disease) 06/29/2013 Dyspnea 06/29/2013 Long-term use of immunosuppressant medication 06/29/2013 Family History Medical History Relation Name Comments Coronary Artery Disease Father Cancer Mother colon Relation Name Status Comments Father Mother Social History Date Tobacco Use Types Packs/Day Years Used Current Every Day Smoker Cigarettes 1 30 Smokeless Tobacco: Never Used Comments: Down to 0.5ppd/day since March/2013 as of 06/23/13 Alcohol Use Drinks/Week oz/Week Comments No Sex Assigned at Date Recorded Not on file Industry Job Start Date Occupation Not on file Not on file Not on file Travel End Travel History Travel Start No recent travel history available. Last Filed Vital Signs Time Taken Vital Sign Reading 01/29/2018 3:02 PM CDT Blood Pressure 143/67 01/29/2018 3:02 PM CDT Pulse 90 06/23/2013 12:35 PM CDT Temperature 36.9 C (98.4 F) 06/23/2013 12:35 PM CDT Respiratory Rate 20 06/23/2013 12:35 PM CDT Oxygen Saturation 96% - Inhaled Oxygen - Concentration 01/29/2018 3:02 PM CDT Weight 113.3 kg (249 lb 12.8 oz) 01/29/2018 3:02 PM CDT Height 188 cm (6' 2") 01/29/2018 3:02 PM CDT Body Mass Index 32.07 Plan of Treatment Health Maintenance Due Date Last Done Comments HEPATITIS C SCREENING 1962 PHYSICAL (COMPREHENSIVE) 1969 EXAM HIV SCREENING 1977 DTAP/TDAP VACCINES (1 - 1980 Tdap) COLORECTAL CANCER 2012 SCREENING SHINGLES RECOMBINANT 2012 VACCINE (1 of 2) INFLUENZA VACCINE 04/16/2018 Results Not on filefrom Last 3 Months Insurance Payer Benefit Subscriber ID Type Phone Address Plan / Group [employer] MEDICARE HUMANA xxxxxxxxx Medicare CHOICE PPO ([place]) [place] [address] Advance Directives Patient has advance care planning documents on file. For more information, please contact: [facility] [address] [place] [address]
[2018-10-29 11:40] VITALS: BP 136/84
[2018-10-29 12:05] VITALS: BP 136/84
--- NOTE | 2018-10-29 13:50 | OPERATIVE REPORT ---
DATE OF SERVICE: 10/29/2018 PREOPERATIVE DIAGNOSIS: Left long finger trigger finger. POSTOPERATIVE DIAGNOSIS: Left long finger trigger finger. PROCEDURE PERFORMED: Left long finger A1 joseph release. SURGEON: Shar Worrell MD. AIRCRAFT MACHINIST: CHASE Hendrix, who assisted throughout the procedure and closed the incision. ANESTHESIA: Monitored anesthesia care plus local by Ramírez John CRNA. TOURNIQUET TIME: 2 minutes at 250 mmHg. ESTIMATED BLOOD LOSS: Minimal. DRAINS: None. COMPLICATIONS: None. POSTOPERATIVE PLAN: range of motion as symptoms allow. The patient was transferred to the recovery room in awake and stable condition. STATEMENT OF MEDICAL NECESSITY: The patient is a 58-year-old right hand dominant gentleman with complaints of left long finger catching and locking. He can demonstrate active triggering. He was tender over his A1 joseph. He reported functional impairment and because of this, he elected to proceed with surgical intervention. DESCRIPTION OF PROCEDURE: After risks and benefits of procedure were discussed and questions were answered, an informed consent was signed and placed on the chart. The operative site was confirmed in the preoperative holding area and initialed by the surgeon. The patient was then transferred to the operating room. After adequate level of monitored anesthesia care was obtained, a timeout was called confirming the operative site. Under sterile conditions, the incision site was infiltrated with a combination of plain lidocaine and plain Marcaine at the left long finger A1 joseph region. Left upper extremity was prepped and draped in the usual sterile fashion. With arm elevated, tourniquet was inflated to 250 mmHg. A standard incision was made longitudinally over the A1 joseph. The underlying soft tissues were bluntly dissected exposing the A1 joseph, which was then incised longitudinally. The flexor tendons demonstrated fluid, but no gross abnormalities otherwise. The finger was taken through range of motion with full motion noted and no catching noted. The tourniquet was deflated for a total tourniquet time 2 minutes. Pressure was used for hemostasis. Wound was copiously irrigated and closed with 4-0 nylon in simple interrupted fashion. Soft dressing was applied. The patient was transported to the recovery room awake and in stable condition. Job ID: [id number] DocumentID: [id number] Dictated Date: 10/29/2018 10:40:30 Vortex Operator Date: 10/29/2018 13:49:35 Dictated By: SHAR WORRELL MD
== END 2018-10-29 12:15 | disposition home or self-care (01) ==
LOC: SDC 08:50
PROVIDERS: ATTEND Orthopaedic Surgery
DX: M65.332 Trigger finger, left middle finger (principal); Z11.2 Encounter for screening for other bacterial diseases; E11.40 Type 2 diabetes mellitus with diabetic neuropathy, unspecified; I10 Essential (primary) hypertension; J84.9 Interstitial pulmonary disease, unspecified; K21.9 Gastro-esophageal reflux disease without esophagitis; G47.33 Obstructive sleep apnea (adult) (pediatric); E78.5 Hyperlipidemia, unspecified; G25.81 Restless legs syndrome; F32.9 Major depressive disorder, single episode, unspecified; F10.20 Alcohol dependence, uncomplicated; J44.9 Chronic obstructive pulmonary disease, unspecified; Z99.81 Dependence on supplemental oxygen; Z95.5 Presence of coronary angioplasty implant and graft; Z80.0 Family history of malignant neoplasm of digestive organs; Z79.4 Long term (current) use of insulin; Z79.899 Other long term (current) drug therapy; Z88.5 Allergy status to narcotic agent; Z88.1 Allergy status to other antibiotic agents
CPT/HCPCS: 82962; 87081

== ENCOUNTER → 2018-11-04 | Outpatient (CLI) | payer MEDICARE | LOC: WOUNDCARE 08:57 | PROVIDERS: ATTEND Nurse Practitioner | DX: E11.621 Type 2 diabetes mellitus with foot ulcer (principal); L97.523 Non-pressure chronic ulcer of other part of left foot with necrosis of muscle; M86.472 Chronic osteomyelitis with draining sinus, left ankle and foot; Z72.0 Tobacco use | CPT/HCPCS: 11044 ==

== ENCOUNTER → 2018-11-11 | Outpatient (CLI) | payer MEDICARE | LOC: WOUNDCARE 08:26 | PROVIDERS: ATTEND Nurse Practitioner | DX: E11.621 Type 2 diabetes mellitus with foot ulcer (principal); L97.523 Non-pressure chronic ulcer of other part of left foot with necrosis of muscle; M86.472 Chronic osteomyelitis with draining sinus, left ankle and foot; Z72.0 Tobacco use | CPT/HCPCS: 11044 ==

== ENCOUNTER → 2018-11-17 | Outpatient (CLI) | payer MEDICARE ==
--- NOTE | 2018-11-17 13:10 | Diagnostic Imaging Report ---
INDICATION: Pain. Three views were obtained. FINDINGS: There is lytic destructive change to the distal phalanx of the left great toe suspect for osteomyelitis. Alignment is otherwise normal. There is no fracture or dislocation. Soft tissues are unremarkable. IMPRESSION: Lytic destructive changes involving the distal aspect of the left great toe compatible with osteomyelitis. Dictated by: Dictated on workstation # [id number]
== END ==
LOC: RAD 10:24
PROVIDERS: ATTEND Surgery
DX: E11.621 Type 2 diabetes mellitus with foot ulcer (principal); L97.524 Non-pressure chronic ulcer of other part of left foot with necrosis of bone; M86.472 Chronic osteomyelitis with draining sinus, left ankle and foot; Z72.0 Tobacco use
CPT/HCPCS: 73630

== ENCOUNTER → 2018-11-17 | Outpatient (CLI) | payer MEDICARE | LOC: WOUNDCARE 09:28 | PROVIDERS: ATTEND Surgery | DX: E11.621 Type 2 diabetes mellitus with foot ulcer (principal); L97.523 Non-pressure chronic ulcer of other part of left foot with necrosis of muscle; E11.69 Type 2 diabetes mellitus with other specified complication; M86.472 Chronic osteomyelitis with draining sinus, left ankle and foot; Z72.0 Tobacco use | CPT/HCPCS: 11042 ==

== ENCOUNTER → 2018-11-25 | Outpatient (CLI) | payer MEDICARE | LOC: WOUNDCARE 08:57 | PROVIDERS: ATTEND Nurse Practitioner | DX: E11.621 Type 2 diabetes mellitus with foot ulcer (principal); L97.524 Non-pressure chronic ulcer of other part of left foot with necrosis of bone; M86.472 Chronic osteomyelitis with draining sinus, left ankle and foot; Z72.0 Tobacco use | CPT/HCPCS: 11042 ==

== ENCOUNTER → 2018-12-02 | Outpatient (CLI) | payer MEDICARE | LOC: WOUNDCARE 08:52 | PROVIDERS: ATTEND Nurse Practitioner | DX: E11.621 Type 2 diabetes mellitus with foot ulcer (principal); L97.524 Non-pressure chronic ulcer of other part of left foot with necrosis of bone; M86.472 Chronic osteomyelitis with draining sinus, left ankle and foot; Z72.0 Tobacco use | CPT/HCPCS: 11042 ==

== ENCOUNTER → 2018-12-09 | Outpatient (CLI) | payer MEDICARE | LOC: WOUNDCARE 08:46 | PROVIDERS: ATTEND Nurse Practitioner | DX: E11.621 Type 2 diabetes mellitus with foot ulcer (principal); L97.524 Non-pressure chronic ulcer of other part of left foot with necrosis of bone; M86.472 Chronic osteomyelitis with draining sinus, left ankle and foot; Z72.0 Tobacco use | CPT/HCPCS: 11044; 87070; 87075; 87077; 87205 ==

== ENCOUNTER 2018-12-19 19:01 | Emergency (ER) | payer MEDICARE ==
[~2018-12-19] VITALS: Ht 188 cm; Wt 104.3 kg
--- NOTE | 2018-12-19 19:15 | NUR ---
PT AMBULATES TO FT1, UPON TRIAGE PT STATES "I NEED OXYGEN. I NORMALLY WEAR 3L AT HOME". NC PLACED ON PT AT 3L PER REQUEST. THIS RN ATTEMPTED TO EDUCATE PT ON TAKING O2 TANK WITH HIM AT ALL TIMES IF HE NORMALLY WEARS IT AND THE BENEFITS, PT STATES TO "TAKE ME TO F*FRANK BELCHER RIGHT NOW!" ATTEMPT TO CALM PT AND RE-DIRECT HIM TO HIS REASON FOR VISIT. PT STATES, "YOU SHOULD JUST POINT YOUR F*CKING FINGER AT ME WHILE YOU LECTURE ME TOO! I KNOW ALL ABOUT THIS OXYGEN THING I'VE HAD IT FOR SEVERAL YEARS." AT THIS TIME THIS ASSISTANT OPERATIONS MANAGER/RN TURNED OVER PT CARE TO DAVIDE CALIXTO.
[2018-12-19] MEDS ORDERED: SODI473S7 (19:28)
[2018-12-19] MEDS ORDERED: METO-370 (19:28)
--- NOTE | 2018-12-19 20:02 | ED General ---
General Chief Complaint: General Problems/Pain Stated Complaint: PICC LINE BLEEDING Nursing Triage Note: bleeding at insertion site of picc line. Nursing Sepsis Screen: No Definite Risk Source of Information: Patient Exam Limitations: No Limitations History of Present Illness Date Seen by Provider: Dec 19, 2018 Time Seen by Provider: 19:30 Initial Comments 58-year-old male who presents to the emergency room with bleeding at the insertion of his PICC site that started today while he was at work. He has recently had the PICC line placed due to an infection on his toe. Pressure dressing was applied to the side of the PICC line. The PICC line still functioned properly, flushing and was drawing blood. The pressure dressing was removed and the dressing and securing device was changed. There was no longer bleeding at the site. The PICC line remaining functioning. He denies any pain. Timing/Duration: 1/2 Hour Associated Systoms: Denies Symptoms Allergies and Home Medications Allergies Coded Allergies: ceftriaxone (Verified Allergy, Intermediate, 08/11/18) Patient experienced reaction approx. 6 hrs after receiving rocephin. He experienced redness, itching and shortness of air. Benadryl was administered and it resolved. Home Medications Albuterol Sulfate 18 Gm Hfa.aer.ad, 2 PUFF INH Q6H PRN for SHORTNESS OF BREATH, (Reported) Albuterol Sulfate 2.5 Mg/3 Ml Vial.neb, 2.5 MG NEB Q6H PRN for SHORTNESS OF BREATH, (Reported) Atorvastatin Calcium 10 Mg Tablet, 10 MG PO HS, (Reported) Budesonide 8.43 Ml [place].pump, 2 SPRAYS NS BID PRN for ALLERGIES, (Reported) Budesonide/Formoterol Fumarate 10.2 Gm Hfa.aer.ad, 2 PUFF INH BID, (Reported) Carbamazepine 200 Mg Tablet, 200 MG PO HS, (Reported) Cetirizine HCl 10 Mg Tablet, 10 MG PO DAILY, (Reported) Insulin Aspart 100 Unit/1 Ml Susp, 20 UNITS SQ TIDAC, (Reported) Insulin Determir 1,000 Units/10 Ml Soln, 30 UNITS SQ BID, (Reported) Losartan Potassium 25 Mg Tablet, 25 MG PO DAILY, (Reported) Montelukast Sodium 10 Mg Tablet, 10 MG PO HS, (Reported) Oxycodone HCl/Acetaminophen 1 Each Tablet, 1 TAB PO Q4H PRN for PAIN-MODERATE Prescribed by: HERNANDO KILGORE on 10/29/18 1138 Pantoprazole Sodium 40 Mg Tablet.dr, 40 MG PO DAILY, (Reported) Pregabalin 300 Mg Capsule, 300 MG PO TID, (Reported) Tiotropium [place] 4 Gm Mist.inhal, 2 PUFF INH DAILY, (Reported) Patient Home Medication List Home Medication List Reviewed: Yes Review of Systems Review of Systems Constitutional: see HPI; No chills, No fever Skin: see HPI, other (bleeding PICC line insertion site) All Other Systems Reviewed Negative Unless Noted: Yes Past Gyuiulx-Kkpvtd-Xarupj Hx Past Med/Social Hx: Reviewed Nursing Past Med/Soc Hx Patient Social History Alcohol Use: Rarely Uses Number of Drinks Today: AA Alcohol Beverage of Choice: Beer Recreational Drug Use: Yes Drug of Choice: CANNIBUS Smoking Status: Current Everyday Smoker Type Used: Cigarettes Former Smoker, Quit: Jul 17, 2017 2nd Hand Smoke Exposure: No Recent Foreign Travel: No Contact w/Someone Who Travel: No Recent Infectious Disease Expo: No Recent Hopitalizations: No Immunizations Up To Date Tetanus Booster (TDap): Less than 5yrs PED Vaccines UTD: No Date of Pneumonia Vaccine: January 20, 2013 Date of Influenza Vaccine: Jun 20, 2018 Seasonal Allergies Seasonal Allergies: Yes Past Medical History Surgeries: Yes (HERNIA REPAIR, ENE-SPINE SURGERY X2, RT KNEE SCOPE, CARDIAC CATH ) Abdominal, Cardiac, Coronary Stent, Orthopedic Respiratory: Yes (INTERSTITIAL LUNG DISEASE, OXYGEN PRN) Pneumonia, Sleep Apnea, COPD Currently Using CPAP: No Currently Using BIPAP: Yes Cardiac: Yes (LBBB, CARDIAC CATH) High Cholesterol, Hypertension Neurological: Yes (NEUROPATHY IN FEET) Neuropathy Reproductive Disorders: No Sexually Transmitted Disease: No HIV/AIDS: No Genitourinary: No Gastrointestinal: Yes Gastroesophageal Reflux Musculoskeletal: Yes (CHRONIC GENERALIZED PAIN, CHRONIC NECK AND BACK PAIN ) Degenerate Disk Disease, Arthritis, Fibromyalgia, Chronic Back Pain Endocrine: Yes Diabetes, Insulin dep HEENT: No Loss of Vision: Denies Hearing Impairment: Hard of Hearing Cancer: No Psychosocial: Yes Anxiety Integumentary: No Blood Disorders: No Adverse Reaction/Blood Tranf: No Family Medical History Reviewed Nursing Family Hx Cancer 03 MOTHER Cancer of colon 03 MOTHER Cataract 03 MOTHER Chest pain 03 FATHER Family history: Cardiovascular disease 03 FATHER Family history: Diabetes mellitus 09 BROTHER Headache 03 FATHER 03 MOTHER 09 BROTHER 09 BROTHER Heart disease 03 FATHER Myocardial infarction 03 FATHER Stroke 09 BROTHER No Family History of: Abdominal aortic aneurysm Pondera's disease Alcoholism Aphasia Congenital heart disease Congestive heart failure Cystic fibrosis Dementia Dysphagia Family history: Allergy Family history: Alzheimer's disease Family history: Arthritis Family history: Asthma Family history: Breast disease Family history: Coronary thrombosis Family history: Gastrointestinal disease Family history: Glaucoma Family history: Hypertension Family history: Osteoporosis Family history: Thyroid disorder Hearing loss Hereditary disease History of - anemia History of - disorder History of - respiratory disease History of drug abuse Human immunodeficiency virus (HIV) seropositivity Hypercholesterolemia Infertile Kidney disease Malignant neoplasm of lung Parkinson's disease Prostate cancer Psychotic disorder Seizure disorder Tuberculosis Visual impairment No Pertinent Family Hx Physical Exam Vital Signs Vital Signs - First Documented 12/19/18 19:12 Temp 98.8 Pulse 82 Resp 18 B/P (MAP) 142/81 (101) Pulse Ox 97 O2 Delivery Nasal Cannula O2 Flow Rate 3.00 Capillary Refill : Less Than 3 Seconds Height, Weight, BMI Height: 6'2.00" Weight: 230lbs. 0.0oz. 104.610167il; 29.5 BMI Method:Stated General Appearance: No Apparent Distress, WD/WN Respiratory: Chest Non Tender, Lungs Clear, Normal Breath Sounds, No Accessory Muscle Use, No Respiratory Distress Cardiovascular: Regular Rate, Rhythm, No Edema, No Gallop, No JVD, No Murmur, Normal Peripheral Pulses Skin: Normal Color, Warm/Dry, Other (small amount of blood under the dressing on the PICC line site in the left upper arm.) Progress/Results/Core Measures Suspected Sepsis Recent Fever Within 48 Hours: No Infection Criteria Present: Documented Infection New/Unexplained Altered Menta: No Sepsis Screen: No Definite Risk SIRS Temperature:98.8 Pulse: 82 Respiratory Rate: 18 Blood Pressure 142 /81 Mean: 101 Results/Orders Vital Signs/I&O Capillary Refill : Less Than 3 Seconds Blood Pressure Mean: 101 Departure Impression Primary Impression: blood around the PICC line site Disposition: HOME, SELF-CARE Condition: Stable/Unchanged Departure-Patient Inst. Decision time for Depature: 20:01 Referrals: JULIET RODRIGUEZ MD (PCP/Family) Primary Care Physician Patient Instructions: Wound Care (DC) Add. Discharge Instructions: Watch for signs of infection such as increased redness, swelling, drainage, pain. If the bleeding should start again apply direct pressure to the site. Go upstairs for your appointment to have your infusion of vancomycin. Return back to the emergency room for worsening symptoms or concerns as needed. All discharge instructions reviewed with patient and/or family. Voiced understanding. JOSE SERNA Dec 19, 2018 20:02
[2018-12-19 20:05] VITALS: BP 142/81
== END 2018-12-19 20:05 | disposition home or self-care (01) ==
LOC: EDUNIT# 19:01 → ER 19:03
DX: T82.838A Hemorrhage due to vascular prosthetic devices, implants and grafts, initial encounter (principal); G47.30 Sleep apnea, unspecified; J44.9 Chronic obstructive pulmonary disease, unspecified; I25.2 Old myocardial infarction; E78.00 Pure hypercholesterolemia, unspecified; I10 Essential (primary) hypertension; K21.9 Gastro-esophageal reflux disease without esophagitis; E11.40 Type 2 diabetes mellitus with diabetic neuropathy, unspecified; F41.9 Anxiety disorder, unspecified; Z88.1 Allergy status to other antibiotic agents; Z82.49 Family history of ischemic heart disease and other diseases of the circulatory system; Z88.8 Allergy status to other drugs, medicaments and biological substances; Z80.0 Family history of malignant neoplasm of digestive organs; Z88.6 Allergy status to analgesic agent; Z79.4 Long term (current) use of insulin; Z87.891 Personal history of nicotine dependence; Z95.5 Presence of coronary angioplasty implant and graft; Z98.890 Other specified postprocedural states; Z87.01 Personal history of pneumonia (recurrent)
CPT/HCPCS: 99282

== ENCOUNTER → 2018-12-23 | Outpatient (CLI) | payer MEDICARE ==
[~2018-12-23] MED LIST changes: +METO-370; +SODI473S7
== END ==
LOC: WOUNDCARE 08:52
PROVIDERS: ATTEND Nurse Practitioner
DX: E11.621 Type 2 diabetes mellitus with foot ulcer (principal); L97.524 Non-pressure chronic ulcer of other part of left foot with necrosis of bone; M86.472 Chronic osteomyelitis with draining sinus, left ankle and foot; Z72.0 Tobacco use

== ENCOUNTER → 2018-12-30 | Outpatient (CLI) | payer MEDICARE | LOC: WOUNDCARE 08:53 | PROVIDERS: ATTEND Nurse Practitioner | DX: E11.621 Type 2 diabetes mellitus with foot ulcer (principal); L97.524 Non-pressure chronic ulcer of other part of left foot with necrosis of bone; M86.472 Chronic osteomyelitis with draining sinus, left ankle and foot; Z72.0 Tobacco use | CPT/HCPCS: 11044 ==

== ENCOUNTER → 2019-01-06 | Outpatient (CLI) | payer MEDICARE | LOC: WOUNDCARE 08:54 | PROVIDERS: ATTEND Nurse Practitioner | DX: E11.621 Type 2 diabetes mellitus with foot ulcer (principal); L97.524 Non-pressure chronic ulcer of other part of left foot with necrosis of bone; M86.472 Chronic osteomyelitis with draining sinus, left ankle and foot; Z72.0 Tobacco use | CPT/HCPCS: 11044 ==

== ENCOUNTER → 2019-01-13 | Outpatient (CLI) | payer MEDICARE | LOC: WOUNDCARE 08:46 | PROVIDERS: ATTEND Nurse Practitioner | DX: E11.621 Type 2 diabetes mellitus with foot ulcer (principal); L97.524 Non-pressure chronic ulcer of other part of left foot with necrosis of bone; M86.472 Chronic osteomyelitis with draining sinus, left ankle and foot; Z72.0 Tobacco use | CPT/HCPCS: 11042 ==

== ENCOUNTER → 2019-01-19 | Outpatient (CLI) | payer MEDICARE | LOC: SDC 09:10 | PROVIDERS: ATTEND Surgery | DX: E11.69 Type 2 diabetes mellitus with other specified complication (principal); M86.472 Chronic osteomyelitis with draining sinus, left ankle and foot | CPT/HCPCS: 36415; 83036; 85652; 86141; 96365 ==

== ENCOUNTER → 2019-01-19 | Outpatient (CLI) | payer MEDICARE | LOC: WOUNDCARE 08:15 | PROVIDERS: ATTEND Surgery | DX: E11.621 Type 2 diabetes mellitus with foot ulcer (principal); L97.526 Non-pressure chronic ulcer of other part of left foot with bone involvement without evidence of necrosis; E11.69 Type 2 diabetes mellitus with other specified complication; M86.472 Chronic osteomyelitis with draining sinus, left ankle and foot; Z72.0 Tobacco use | CPT/HCPCS: 11042 ==

== ENCOUNTER → 2019-01-27 | Outpatient (CLI) | payer MEDICARE | LOC: WOUNDCARE 08:52 | PROVIDERS: ATTEND Nurse Practitioner | DX: E11.621 Type 2 diabetes mellitus with foot ulcer (principal); L97.526 Non-pressure chronic ulcer of other part of left foot with bone involvement without evidence of necrosis; M86.472 Chronic osteomyelitis with draining sinus, left ankle and foot; Z72.0 Tobacco use | CPT/HCPCS: 11042; 87070; 87075; 87186; 87205 ==

== ENCOUNTER 2019-02-03 09:55 | Outpatient (RCR) | payer MEDICARE ==
[2018-12-17 08:58] VITALS: BP 130/86
--- NOTE | 2018-12-17 10:16 | Diagnostic Imaging Report ---
INDICATION: PICC line placement. FINDINGS: The left PICC catheter distal tip is oriented inferiorly at the mid SVC level. No effusion or pneumothorax. No focal pulmonary consolidation. IMPRESSION: The left PICC line is placed at the mid SVC. Dictated by: Dictated on workstation # [id number]
[2018-12-17 10:56] LABS: BUN/CREATININE RATIO 14; CALCIUM 9.2 MG/DL (8.5-10.1); CARBON DIOXIDE 27 MMOL/L (21-32); CHLORIDE 104 MMOL/L (98-107); CREATININE SERUM 0.86 MG/DL (0.60-1.30); GFR ESTIMATED > 60; GLUCOSE 82 MG/DL (70-105); POTASSIUM 4.1 MMOL/L (3.6-5.0); SODIUM 139 MMOL/L (135-145)
[2018-12-17] MEDS: VANCOMYCIN 2000 MG/NS 500 ML IVPB IV SCH ×2 (21:09)
[2018-12-17 21:42] VITALS: BP 119/65
[2018-12-17 23:28] VITALS: BP 138/71
--- NOTE | 2018-12-17 23:33 | NUR ---
Outpatient vancomycin infusion complete ATT. Patient denies further needs. Ambulated unaccompanied to POV. Care complete. DAVIDE Chiu
[2018-12-18] MEDS: VANCOMYCIN 2000 MG/NS 500 ML IVPB IV SCH ×4 (07:55→19:57)
[2018-12-18 09:38] VITALS: BP 131/74
[2018-12-18 19:57] VITALS: BP 133/75
[2018-12-19] MEDS: VANCOMYCIN 2000 MG/NS 500 ML IVPB IV SCH ×2 (07:46)
--- NOTE | 2018-12-19 08:50 | NUR ---
VANCOMYCIN DOSING TROUGH LEVEL 11.1 - INCREASE DOSE TO VANC 2250 MG Q12H CHECK TROUGH LEVEL BEFORE MORGNING DOSE ON 12/21
[2018-12-19 09:58] VITALS: BP 135/66
[2018-12-19] MEDS: VANCOMYCIN INJECTION 2,250 MG in NS IV 500 ML 500 ML IV SCH (20:52)
[2018-12-19 23:10] VITALS: BP 162/82
[2018-12-20] MEDS: VANCOMYCIN INJECTION 2,250 MG in NS IV 500 ML 500 ML IV SCH ×2 (08:16→19:47)
[2018-12-20 10:32] VITALS: BP 132/72
[2018-12-20 22:10] VITALS: BP 120/58
[2018-12-21 08:50] VITALS: BP 129/73
[2018-12-21] MEDS: VANCOMYCIN INJECTION 2,250 MG in NS IV 500 ML 500 ML IV SCH ×2 (08:50→19:40)
--- NOTE | 2018-12-21 19:40 | NUR ---
PT AMBULATED TO FLOOR FOR OUTPATIENT VANC, PT VERIFIED WITH NAME AND . VANC TROUGH VERIFIED ON EMR FROM AM LABS, LEVEL 16. SINGLE LUMEN LILY PICC WITH GOOD BLOOD RETURN AND FLUSHED WITH 10ML NORMAL SALINE FLUSH AT THIS TIME. VANC SCANNED IN EMAR AND ADMINISTRATION INITIATED. VSS HR 80 RR 22 SPO2 96% ON 3LPM NC, BP 143/76. NO REPORTS OF PAIN AT THIS TIME. Addendum: 12/21/18 at 2042 by CRISTIAN ESPINOZA RN PT AMBULATED TO ROOM 413 FOR OUTPATIENT VISIT THIS EVENING AND INTRODUCED TO CALL LIGHT AND SURROUNDINGS. OFFERED REFRESHMENTS/SNACK AT THIS TIME, PT DECLINED. INFORMED PT TO USE NURSES BUTTON B OPERATOR LIGHT IF ANY NEEDS ARISE.
--- NOTE | 2018-12-21 21:53 | NUR ---
ABX COMPLETE AT THIS TIME, LILY PICC FLUSHED WITH 20ML NS FLUSH WITHOUT DIFFICULTY. NO S/S OF MIGRATION NOTED AT THIS TIME. PT VOICES NO COMPLAINTS AT THIS TIME AND VERBALIZES UNDERSTANDING OF NEED TO RETURN IN AM FOR ABX ADMINISTRATION. PT AMBULATED SELF TO MAIN ENTRANCE W/O COMPLAINTS.
[2018-12-22] MEDS: VANCOMYCIN INJECTION 2,250 MG in NS IV 500 ML 500 ML IV SCH ×2 (08:00→19:41)
[2018-12-22 08:01] VITALS: BP 138/72
--- NOTE | 2018-12-22 19:41 | NUR ---
PT AMBULATED TO FLOOR FOR OUTPATIENT VANC, PT VERIFIED WITH NAME AND . PT PLACED IN ROOM 406 FOR OUTPATIENT VISIT THIS EVENING AND INTRODUCED TO CALL LIGHT AND SURROUNDINGS. OFFERED REFRESHMENTS/SNACK AT THIS TIME, PT DECLINED. INFORMED PT TO USE NURSES BUTTON GRAIN OILSEED OR PASTURE FARM MANAGER LIGHT IF ANY NEEDS ARISE. VANC TROUGH VERIFIED ON EMR FROM AM LABS ON 12/22/18, LEVEL 16. SINGLE LUMEN LILY PICC WITH GOOD BLOOD RETURN AND FLUSHED WITH 10ML NORMAL SALINE FLUSH AT THIS TIME. VANC SCANNED IN EMAR AND ADMINISTRATION INITIATED. VSS HR 100 RR 22 SPO2 96% ON 3LPM NC, BP 131/66.
[2018-12-23 07:30] VITALS: BP 127/71
[2018-12-23] MEDS: VANCOMYCIN INJECTION 2,250 MG in NS IV 500 ML 500 ML IV SCH ×2 (07:55→19:25)
--- NOTE | 2018-12-23 08:45 | NUR ---
pt amb to wound care for appt with vanco infusing. no sx/sx distress.
--- NOTE | 2018-12-23 19:25 | NUR ---
PT AMBULATED TO FLOOR FOR OUTPATIENT VANC, PT VERIFIED WITH NAME AND . PT PLACED IN ROOM 406 FOR OUTPATIENT VISIT THIS EVENING AND INTRODUCED TO CALL LIGHT AND SURROUNDINGS. OFFERED REFRESHMENTS/SNACK AT THIS TIME, PT DECLINED. INFORMED PT TO USE NURSES BUTTON HAT MODEL LIGHT IF ANY NEEDS ARISE. VANC TROUGH VERIFIED ON EMR FROM AM LABS ON 12/22/18, LEVEL 16. SINGLE LUMEN LILY PICC WITH GOOD BLOOD RETURN AND FLUSHED WITH 10ML NORMAL SALINE FLUSH AT THIS TIME. VANC SCANNED IN EMAR AND ADMINISTRATION INITIATED. VSS HR 74 RR 18 SPO2 95% ON 3LPM NC, BP 129/65.
[2018-12-24] MEDS: VANCOMYCIN INJECTION 2,250 MG in NS IV 500 ML 500 ML IV SCH ×2 (07:35→19:36)
[2018-12-24 08:09] VITALS: BP 135/74
[2018-12-24 22:02] VITALS: BP 129/61
[2018-12-25 07:36] VITALS: BP 127/65
[2018-12-25] MEDS: VANCOMYCIN INJECTION 2,250 MG in NS IV 500 ML 500 ML IV SCH (07:36)
[2018-12-26] MEDS: VANCOMYCIN INJECTION 2,250 MG in NS IV 500 ML 500 ML IV SCH ×2 (07:34→19:22)
[2018-12-26 09:05] VITALS: BP 136/76
[2018-12-26 21:45] VITALS: BP 145/72
[2018-12-27] MEDS: VANCOMYCIN INJECTION 2,250 MG in NS IV 500 ML 500 ML IV SCH ×2 (08:18→19:22)
[2018-12-27 10:40] VITALS: BP 147/77
[2018-12-27 21:40] VITALS: BP 154/82
[2018-12-28] MEDS: VANCOMYCIN INJECTION 2,250 MG in NS IV 500 ML 500 ML IV SCH ×2 (07:49→19:23)
[2018-12-28 07:55] VITALS: BP 145/76
[2018-12-28 21:40] VITALS: BP 141/75
[2018-12-29 07:30] VITALS: BP 137/78
[2018-12-29] MEDS: VANCOMYCIN INJECTION 2,250 MG in NS IV 500 ML 500 ML IV SCH ×2 (07:37→19:36)
[2018-12-29 21:59] VITALS: BP 127/65
[2018-12-30 08:06] VITALS: BP 138/81
[2018-12-30] MEDS: VANCOMYCIN INJECTION 2,250 MG in NS IV 500 ML 500 ML IV SCH (08:18)
[2018-12-31 07:20] VITALS: BP 140/70
[2018-12-31] MEDS: VANCOMYCIN INJECTION 2,250 MG in NS IV 500 ML 500 ML IV SCH ×2 (07:25→19:31)
[2018-12-31 21:35] VITALS: BP 132/78
[2019-01-01 07:31] VITALS: BP 123/67
[2019-01-01] MEDS: VANCOMYCIN INJECTION 2,250 MG in NS IV 500 ML 500 ML IV SCH ×2 (07:35→19:43)
[2019-01-01 19:40] VITALS: BP 154/82
[2019-01-02 07:15] VITALS: BP 132/77
[2019-01-02] MEDS: VANCOMYCIN INJECTION 2,250 MG in NS IV 500 ML 500 ML IV SCH ×2 (07:15→19:40)
[2019-01-02 22:15] VITALS: BP 137/74
[2019-01-03] MEDS: VANCOMYCIN INJECTION 2,250 MG in NS IV 500 ML 500 ML IV SCH (08:11)
[2019-01-03 08:15] VITALS: BP 133/67
--- NOTE | 2019-01-03 10:25 | NUR ---
IV INFUSION COMPETED, PICC FLUSHED WITH 20 ML SALINE FLUSH, PT DISCHARGED TO HOME AMBULATORY, PT UNACCOMPANIED.
[2019-01-04] MEDS: VANCOMYCIN INJECTION 2,250 MG in NS IV 500 ML 500 ML IV SCH ×3 (07:58→21:14)
[2019-01-04 09:13] VITALS: BP 132/68
[2019-01-04 21:28] VITALS: BP 143/78
[2019-01-05 06:35] VITALS: BP 142/81
[2019-01-05] MEDS: VANCOMYCIN INJECTION 2,250 MG in NS IV 500 ML 500 ML IV SCH ×2 (06:40→18:35)
[2019-01-05 18:46] VITALS: BP 116/58
[2019-01-05 21:00] VITALS: BP 116/58
[2019-01-06] MEDS: VANCOMYCIN INJECTION 2,250 MG in NS IV 500 ML 500 ML IV SCH ×2 (07:18→18:41)
[2019-01-06 07:21] VITALS: BP 120/70
[2019-01-06 18:40] VITALS: BP 134/64
[2019-01-07] MEDS: VANCOMYCIN INJECTION 2,250 MG in NS IV 500 ML 500 ML IV SCH ×2 (07:28→18:56)
[2019-01-07 07:30] VITALS: BP 133/74
[2019-01-07 18:49] VITALS: BP 138/74
[2019-01-07 21:51] VITALS: BP 138/74
[2019-01-08 07:05] VITALS: BP 152/90
[2019-01-08] MEDS: VANCOMYCIN INJECTION 2,250 MG in NS IV 500 ML 500 ML IV SCH (07:05)
[2019-01-09] MEDS: VANCOMYCIN INJECTION 2,250 MG in NS IV 500 ML 500 ML IV SCH (18:16)
[2019-01-09 18:20] VITALS: BP 156/79
[2019-01-10] MEDS: VANCOMYCIN INJECTION 2,250 MG in NS IV 500 ML 500 ML IV SCH ×2 (08:03→19:42)
[2019-01-10 08:10] VITALS: BP 153/80
--- NOTE | 2019-01-10 19:30 | NUR ---
PT AMBULATED TO FLOOR FOR OUTPATIENT VANC, PT VERIFIED WITH NAME AND . PT PLACED IN ROOM 414 FOR OUTPATIENT VISIT THIS EVENING AND INTRODUCED TO CALL LIGHT AND SURROUNDINGS. OFFERED REFRESHMENTS/SNACK AT THIS TIME, PT DECLINED. INFORMED PT TO USE NURSES BUTTON WEB MARKETING STRATEGIST LIGHT IF ANY NEEDS ARISE. VANC TROUGH VERIFIED ON EMR FROM AM LABS ON 01/05/19, LEVEL 15.1. SINGLE LUMEN LILY PICC WITH GOOD BLOOD RETURN AND FLUSHED WITH 10ML NORMAL SALINE FLUSH AT THIS TIME. VANC SCANNED IN EMAR AND ADMINISTRATION INITIATED. VSS HR 70 RR 18 SPO2 96% ON 3LPM NC, BP 154/74.
[2019-01-11] MEDS: VANCOMYCIN INJECTION 2,250 MG in NS IV 500 ML 500 ML IV SCH ×2 (07:35→18:29)
[2019-01-11 07:37] VITALS: BP 139/76
[2019-01-11 21:10] VITALS: BP 136/68
[2019-01-12 07:30] VITALS: BP 133/67
[2019-01-12] MEDS: VANCOMYCIN INJECTION 2,250 MG in NS IV 500 ML 500 ML IV SCH ×2 (07:34→18:31)
--- NOTE | 2019-01-12 08:30 | NUR ---
VANCOMYCIN DOSING TROUGH LEVEL 16.2 - CONTINUE CURRENT DOSE OF VANC 2250 MG Q12H
[2019-01-12 18:29] VITALS: BP 133/62
[2019-01-12 20:37] VITALS: BP 133/62
[2019-01-13 07:30] VITALS: BP 152/81
[2019-01-13] MEDS: VANCOMYCIN INJECTION 2,250 MG in NS IV 500 ML 500 ML IV SCH (07:34)
[2019-01-14] MEDS: VANCOMYCIN INJECTION 2,250 MG in NS IV 500 ML 500 ML IV SCH ×2 (07:50→18:28)
[2019-01-14 08:15] VITALS: BP 152/81
[2019-01-14 18:28] VITALS: BP 138/73
[2019-01-14 20:55] VITALS: BP 138/73
--- NOTE | 2019-01-14 20:55 | NUR ---
Pt signed consent form in the presence of this RN. Form to chart.
[2019-01-15 07:25] VITALS: BP 152/78
[2019-01-15] MEDS: VANCOMYCIN INJECTION 2,250 MG in NS IV 500 ML 500 ML IV SCH ×2 (07:36→18:57)
[2019-01-15 18:59] VITALS: BP 138/73
[2019-01-16] MEDS: VANCOMYCIN INJECTION 2,250 MG in NS IV 500 ML 500 ML IV SCH (08:00)
[2019-01-17] MEDS: VANCOMYCIN INJECTION 2,250 MG in NS IV 500 ML 500 ML IV SCH (08:30)
[2019-01-17 08:32] VITALS: BP 130/78
[2019-01-18 07:55] VITALS: BP 137/75
[2019-01-18] MEDS: VANCOMYCIN INJECTION 2,250 MG in NS IV 500 ML 500 ML IV SCH (08:10)
[2019-01-19] MEDS: VANCOMYCIN INJECTION 2,250 MG in NS IV 500 ML 500 ML IV SCH ×2 (07:17→07:18)
[2019-01-19 07:21] VITALS: BP 144/81
[2019-01-20] MEDS: VANCOMYCIN INJECTION 2,250 MG in NS IV 500 ML 500 ML IV SCH ×2 (07:25→18:35)
[2019-01-20 08:19] VITALS: BP 127/71
[2019-01-20 18:44] VITALS: BP 121/65
[2019-01-20 23:14] VITALS: BP 121/65
[2019-01-21] MEDS: VANCOMYCIN INJECTION 2,250 MG in NS IV 500 ML 500 ML IV SCH ×2 (07:56→18:20)
[2019-01-21 08:00] VITALS: BP 139/80
[2019-01-21 18:33] VITALS: BP 122/63
[2019-01-22 07:32] VITALS: BP 137/76
[2019-01-22] MEDS: VANCOMYCIN INJECTION 2,250 MG in NS IV 500 ML 500 ML IV SCH (07:32)
[2019-01-23] MEDS: VANCOMYCIN INJECTION 2,250 MG in NS IV 500 ML 500 ML IV SCH (18:35)
[2019-01-23 20:47] VITALS: BP 159/79
[2019-01-24] MEDS: VANCOMYCIN INJECTION 2,250 MG in NS IV 500 ML 500 ML IV SCH (08:14)
[2019-01-24 08:19] VITALS: BP 146/85
[2019-01-25 08:00] VITALS: BP 128/90
[2019-01-25] MEDS: VANCOMYCIN INJECTION 2,250 MG in NS IV 500 ML 500 ML IV SCH (08:15)
[2019-01-26] MEDS: VANCOMYCIN INJECTION 2,250 MG in NS IV 500 ML 500 ML IV SCH (08:00)
[2019-01-30 08:10] VITALS: BP 138/74
[~2019-02-03] VITALS: Ht 188 cm; Wt 104.3 kg
[~2019-02-03 09:55] MED LIST changes: +TROUGH ORDER-PHARMACY XX NR; +TROUGH ORDER-PHARMACY XX ONE; +VANCOMYCIN 2000 MG/NS 500 ML IVPB IV NR; +VANCOMYCIN INJECTION 2,250 MG in NS IV 500 ML 500 ML IV SCH
[2019-02-03 10:15] VITALS: BP 0/0
== END 2019-02-03 10:15 | disposition home or self-care (01) ==
LOC: SDC 09:55
PROVIDERS: ATTEND Nurse Practitioner
DX: E11.69 Type 2 diabetes mellitus with other specified complication (principal); M86.472 Chronic osteomyelitis with draining sinus, left ankle and foot
CPT/HCPCS: 36415; 36569; 71045; 76937; 80048; 80202; 96365; 96366; 99211

== ENCOUNTER → 2019-02-03 | Outpatient (CLI) | payer MEDICARE ==
--- NOTE | 2019-02-03 10:15 | NUR ---
LEFT UPPER ARM PICC DC'D PER ORDER/PROTOCOL.
== END ==
LOC: WOUNDCARE 09:02
PROVIDERS: ATTEND Nurse Practitioner
DX: E11.621 Type 2 diabetes mellitus with foot ulcer (principal); L97.526 Non-pressure chronic ulcer of other part of left foot with bone involvement without evidence of necrosis; M86.472 Chronic osteomyelitis with draining sinus, left ankle and foot; Z72.0 Tobacco use
CPT/HCPCS: 11042

== ENCOUNTER 2019-02-13 17:37 | Inpatient (IN) | payer MEDICARE ==
[~2019-02-13] VITALS: Ht 188 cm; Wt 99.3 kg
[~2019-02-13 17:37] MED LIST changes: -TROUGH ORDER-PHARMACY XX NR; -TROUGH ORDER-PHARMACY XX ONE; -VANCOMYCIN 2000 MG/NS 500 ML IVPB IV NR; -VANCOMYCIN INJECTION 2,250 MG in NS IV 500 ML 500 ML IV SCH
--- OUTSIDE RECORDS SUMMARY | 2019-02-13 17:43 | XMS REPORT | Clinical Summary ---
Author Author [facility] Organization [facility] Address Unknown Phone Unavailable Care Team Providers Care Stripper And Taper Name Role Phone Bashir Paula MD Unavailable Amol Soliz MD Unavailable Ashley Haddad MD PCP Source Comments Some departments are not documenting in the electronic medical record. If you d o not see the information that you expected, contact Release of Information in [facility] [employer] Information Management department at [phone] for further assistan ce in locating additional records.[facility] Allergies Comments Active Allergy Reactions Severity Noted [...] of Breath. Shake well before use. Active xihlphvedjs-aisvrqcyac-[id number] Inject 0.25 10 mL 3 entolamine(#)(+) mL [...] 2012 VACCINE (1 of 2) INFLUENZA VACCINE 06/16/2019 Results Not on filefrom Last 3 Months Insurance Type Payer Benefit Subscriber ID Effective Phone Address Plan / Dates Group Medicare HU[employer] MEDICARE HUMANA xxxxxxxxx 2017-P CHOICE PPO resent ([address]) [place] [address] Advance Directives Patient has advance care planning documents on file. For more information, esmer mendez contact: [facility] [address] [place] [address]
--- OUTSIDE RECORDS SUMMARY | 2019-02-13 17:43 | XMS REPORT ---
Author Author Migration, Doctor Organization [facility] Address Unknown Phone Unavailable Care Team Providers Care Zoning Technician Name Role Phone Migration, Doctor Unavailable Unavailable PROBLEMS Type Condition ICD9-CM Code SKG43-RN Code Onset Dates Condition Status SNOMED Code Problem Neuropathy G62.9 Active 048658769 Problem Essential hypertension I10 Active 39878537 Problem [facility] 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.4 Active 869584355 Problem Abdominal pain R10.9 Active 21517086 Problem Change in bowel habit R19.4 Active 09559032 Problem Coronary atherosclerosis due to lipid rich plaque I25.83 Active 60933418 Problem Type 2 diabetes 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 E11.8 Active 25082919 Problem Impotence N52.9 Active 359995149 Problem Family history of colon cancer Z80.0 Active 702976308 Problem Diabetic neuropathy, painful E11.40 Active 397402049 Problem Arm paresthesia, right R20.2 Active 54930507 Problem Gastroesophageal reflux disease without esophagitis K21.9 Active 152309602 Problem Drug abuse, opioid type F11.10 Active 5782840 Problem COPD exacerbation J44.1 Active 716699079 Problem Obstructive sleep apnea syndrome G47.33 Active 23736775 Problem Diverticulitis K57.92 Active 505231217 Problem Pain of right upper extremity M79.601 Active 211888808 Problem Respiratory bronchiolitis interstitial lung disease J84.115 Active 836626035 Problem Hypoxia R09.02 Active 463983510 Problem Interstitial lung disease J84.9 Active 994823359 ALLERGIES No Information ENCOUNTERS Encounter Location Date Diagnosis [facility] [address] 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 [facility] [address] [id number], [place] [address] Jul, [facility] [id number] [place] [address] Jul, [facility] [id number] [place] [address] Jul, Diabetic neuropathy, painful E11.40 [place] [id number] [place] [address] Jul, Type 2 diabetes 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 E11.8 [place] [id number] [place] [address] Jun, Diabetic neuropathy, painful E11.40 [place] [id number] [place] [address] Jun, [facility] [id number] [place] [address] Jun, Type 2 diabetes 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 E11.8 ; Other viral agents as the cause of diseases classified elsewhere B97.89 ; Acute upper respiratory infection, unspecified J06.9 ; Acute recurrent maxillary sinusitis J01.01 ; Sore throat J02.9 and Headache R51 [place] [id number] [place] [address] Jun, Right lower quadrant abdominal pain R10.31 and Type 2 diabetes 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 E11.8 [place] [id number] [place] [address] May, Diabetic neuropathy, painful E11.40 [place] [id number] [place] [address] May, COPD exacerbation J44.1 and Type 2 diabetes 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 E11.8 [place] [id number] [place] [address] Apr, Diabetic neuropathy, painful E11.40 [place] [id number] [place] [address] Apr, Diabetic neuropathy, painful E11.40 [facility] [address] [address] Mar, Bronchitis J40 [facility] [address] [address] January, Type 2 diabetes 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 E11.8 ; Diabetic neuropathy, painful E11.40 ; Impotence N52.9 ; Coronary atherosclerosis due to lipid rich plaque I25.83 ; [facility] 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.4 ; Interstitial lung disease J84.9 ; Hypoxia R09.02 ; Essential hypertension I10 ; Gastroesophageal reflux disease without esophagitis K21.9 ; Left upper arm pain M79.622 and Cervical spinal stenosis M48.02 [facility] [place] [address] [address] January, Viral gastroenteritis A08.4 [place] [address] [address] Dec, Diabetic neuropathy, painful E11.40 [facility] [address] [id number] Oct, [facility] [address] [address] Oct, Acute right-sided weakness M62.89 and Slurring of speech R47.81 [place] [address] [address] Sep, Type 2 diabetes 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 E11.8 ; Diabetic neuropathy, painful E11.40 ; Impotence N52.9 ; Coronary atherosclerosis due to lipid rich plaque I25.83 ; [facility] 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.4 ; Interstitial lung disease J84.9 ; Hypoxia R09.02 ; Essential hypertension I10 and Gastroesophageal reflux disease without esophagitis K21.9 [facility] [id number] [place] [address] Sep, Bronchitis J40 [facility] [id number] [place] [address] Aug, Gastroenteritis and colitis, viral A08.4 [facility] [id number] [place] [address] Aug, [facility] [address] [address] Jun, Type 2 diabetes 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 E11.8 ; Diabetic neuropathy, painful E11.40 ; Impotence N52.9 ; Coronary atherosclerosis due to lipid rich plaque I25.83 ; [facility] 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.4 ; Interstitial lung disease J84.9 ; Hypoxia R09.02 and Essential hypertension I10 [facility] [address] [address] 30 May, 2016 Bronchitis J40 [facility] [address] [address] 29 May, 2016 [facility] [id number] [place] [address] 20 May, 2016 Pain of right upper extremity M79.601 [facility] [id number] [place] [address] May, [facility] [id number] [place] [address] 15 May, 2016 [facility] [address] [address] 07 May, 2016 Right hand pain M79.641 [facility] [id number] [place] [address] Apr, [facility] [address] [address] Apr, [facility] [id number] [place] [address] Mar, [facility] [address] [address] Mar, Essential hypertension I10 [place] [id number] [place] [address] Feb, [place] [id number] [place] [address] Feb, Interstitial lung disease J84.9 and Bronchitis J40 [place] [id number] [place] [address] Feb, [place] [id number] [place] [address] Feb, Type 2 diabetes 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 E11.8 ; Impotence N52.9 ; Coronary atherosclerosis due to lipid rich plaque I25.83 ; [facility] 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.4 and Diabetic neuropathy, painful E11.40 [place] [id number] [place] [address] January, [place] [id number] [place] [address] January, Arm paresthesia, right R20.2 and Pain of right upper extremity M79.601 [place] [id number] [place] [address] Dec, Lumbar strain S39.012A [place] [id number] [place] [address] Nov, Diabetic neuropathy, painful E11.40 ; Respiratory bronchiolitis interstitial lung disease J84.115 ; Pain of right upper extremity M79.601 and Arm paresthesia, right R20.2 [place] [id number] [place] [address] Nov, Diabetic neuropathy, painful E11.40 [place] [id number] [place] [address] Sep, Type 2 diabetes 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 E11.8 ; Impotence N52.9 ; Coronary atherosclerosis due to lipid rich plaque I25.83 ; [facility] 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.4 ; Diabetic neuropathy, painful E11.40 ; Chest pain R07.9 and Restless leg G25.81 [place] [id number] [place] [address] Sep, [place] [id number] [place] [address] Jul, COPD (chronic obstructive pulmonary disease) with acute bronchitis J44.0 [place] [address] [address] Jun, Abdominal pain R10.9 ; Family history of colon cancer Z80.0 and Diverticulitis K57.92 [place] [id number] [place] [address] Jun, Abdominal pain R10.9 and Diverticulitis K57.92 [place] [address] [address] Apr, Diabetes with other specified manifestations, type II or unspecified type, not stated as uncontrolled 250.80 ; Coronary atherosclerosis of unspecified type of vessel, ely sh[place] or graft 414.00 ; Unspecified essential hypertension 401.9 ; Impotence of organic origin 607.84 ; Sleep apnea 780.57 and Interstitial lung disease 515 [place] [id number] [place] [address] Dec, [place] [id number] [place] [address] Dec, [place] [id number] [place] [address] Nov, [place] [address] [address] Nov, [place] [id number] [place] [address] Nov, [place] [address] [address] Nov, [facility] [place] [facility] [address] [id number] [place] [address] Nov, [facility] [place] [facility] [address] [id number] [place] [address] Nov, [facility] [place] [facility] [address] [facility] [id number] [place] [address] Nov, [facility] [place] [facility] [address] [id number] [place] [address] Nov, [facility] [place] [facility] [address] [id number] [place] [address] Nov, [facility] [place] [facility] [address] [id number] [place] [address] Nov, [facility] [place] [facility] [address] [facility] [id number] [place] [address] Oct, 2014 [facility] [place] [facility] [address] [facility] [id number] [place] [address] Oct, 2014 [facility] [place] [facility] [address] [facility] [id number] [place] [address] Oct, 2014 [facility] [place] [facility] [address] [facility] [id number] [place] [address] Oct, 2014 [facility] [place] [facility] [address] [facility] [id number] [place] [address] Oct, 2014 [facility] [place] [facility] [address] [facility] [id number], [place] [address] Oct, 2014 [facility] [place] [facility] [address] [facility] [id number] [place] [address] Oct, 2014 [facility] [place] [facility] [address] [facility] [id number] [place] [address] Oct, 2014 [facility] [place] [facility] [address] [facility] [id number] [place] [address] Oct, 2014 [facility] [place] [facility] [address] [id number] [place] [address] Oct, 2014 [facility] [place] [facility] [address] [id number] [place] [address] Oct, 2014 [facility] [place] [facility] [address] [id number] [place] [address] Jul, [facility] [place] [facility] [address] [id number] [place] [address] Jul, [facility] [place] [facility] [address] [id number] [place] [address] Jun, [facility] [place] [facility] [address] [id number] [place] [address] Jun, [facility] [place] [facility] [address] [id number] [place] [address] Jun, [facility] [place] [facility] [address] [id number] [place] [address] 17 Jun, 2014 [facility] [place] [facility] [address] [id number] [place] [address] 15 Jun, 2014 [facility] [place] [facility] [address] [id number] [place] [address] 15 Jun, 2014 [facility] [place] [facility] [address] [id number] [place] [address] 14 Jun, 2014 [facility] [place] [facility] [address] [id number] [place] [address] 14 Jun, 2014 [facility] [place] [facility] [address] [id number] [place] [address] 13 Jun, 2014 [facility] [place] [facility] [address] [id number] [place] [address] Jun, [facility] [place] [facility] [address] [id number] [place] [address] 08 Jun, 2014 [facility] [place] [facility] [address] [id number] [place] [address] Jun, [facility] [place] [facility] [address] [id number] [place] [address] Jun, [facility] [place] [facility] [address] [id number] [place] [address] Jun, [facility] [place] [facility] [address] [id number] [place] [address] 30 May, 2013 [facility] [place] [facility] [address] [id number] [place] [address] 30 May, 2013 [facility] [place] [facility] [address] [id number] [place] [address] May, [facility] [place] [facility] [address] [id number] [place] [address] May, [facility] [place] [facility] [address] [id number] [place] [address] 05 May, 2014 [facility] [place] [facility] [address] [id number] [place] [address] 05 May, 2014 [facility] [place] [facility] [address] [id number] [place] [address] Apr, [facility] [place] [facility] [address] [id number] [place] [address] Apr, [facility] [place] [facility] [address] [id number] [place] [address] Apr, [facility] [place] [facility] [address] [id number] [place] [address] Apr, [facility] [place] [facility] [address] [id number] [place] [address] Apr, [facility] [place] [facility] [address] [id number] [place] [address] Apr, [facility] [place] [facility] [address] [id number] [place] [address] Apr, [facility] [place] [facility] [address] [id number] [place] [address] Apr, [facility] [place] [facility] [address] [id number] [place] [address] Apr, [facility] [place] [facility] [address] [id number] [place] [address] Apr, [facility] [place] [facility] [address] [id number] [place] [address] Apr, [facility] [place] [facility] [address] [id number] [place] [address] Apr, [facility] [place] [facility] [address] [id number] [place] [address] Mar, [facility] [place] [facility] [address] [id number] [place] [address] Mar, [facility] [place] [facility] [address] [id number] [place] [address] Mar, [facility] [place] [facility] [address] [id number] [place] [address] Mar, [facility] [place] [facility] [address] [id number] [place] [address] Mar, [facility] [place] [facility] [address] [id number] [place] [address] Mar, [facility] [place] [facility] [address] [id number] [place] [address] Mar, [facility] [place] [facility] [address] [id number] [place] [address] Mar, [facility] [place] [facility] [address] [id number] [place] [address] Mar, [facility] [place] [facility] [address] [id number] [place] [address] Mar, [facility] [place] [facility] [address] [id number] [place] [address] Mar, [facility] [place] [facility] [address] [id number] [place] [address] Feb, [facility] [place] [facility] [address] [id number] [place] [address] Feb, [facility] [place] [facility] [address] [id number] [place] [address] Feb, [facility] [place] [facility] [address] [id number] [place] [address] Feb, [facility] [place] [facility] [address] [id number] [place] [address] Feb, [facility] [place] [facility] [address] [id number] [place] [address] Feb, [facility] [place] [facility] [address] [id number] [place] [address] Feb, [facility] [place] [facility] [address] [id number] [place] [address] Feb, [facility] [place] [facility] [address] [id number] [place] [address] Feb, [facility] [place] [facility] [address] [id number] [place] [address] Feb, [facility] [place] [facility] [address] [id number] [place] [address] January, [facility] [place] [facility] [address] [id number] [place] [address] January, [facility] [place] [facility] [address] [id number] [place] [address] January, [facility] [place] [facility] [address] [id number] [place] [address] January, [facility] [place] [facility] [address] [id number] [place] [address] January, [facility] [place] [facility] [address] [id number] [place] [address] January, [facility] [address] [id number] [place] [address] January, [facility] [place] [facility] [address] [id number] [place] [address] January, [facility] [place] [facility] [address] [id number] [place] [address] January, [facility] [place] [facility] [address] [id number] [place] [address] January, [facility] [place] [facility] [address] [id number] [place] [address] January, [facility] [place] [facility] [address] [id number] [place] [address] January, [facility] [place] [facility] [address] [id number] [place] [address] January, [facility] [place] [facility] [address] [id number] [place] [address] January, [facility] [place] [facility] [address] [id number] [place] [address] January, [facility] [place] [facility] [address] [id number] [place] [address] January, [facility] [place] [facility] [address] [id number] [place] [address] Dec, [facility] [place] [facility] [address] [id number] [place] [address] Dec, [facility] [place] [facility] [address] [id number] [place] [address] Dec, [facility] [place] [facility] [address] [id number] [place] [address] Dec, [facility] [place] [facility] [address] [id number] [place] [address] Dec, [facility] [place] [facility] [address] [id number] [place] [address] Dec, [facility] [place] [facility] [address] [id number] [place] [address] Dec, [facility] [place] [facility] [address] [id number] [place] [address] Dec, [facility] [place] [facility] [address] [id number] [place] [address] Dec, [facility] [place] [facility] [address] [id number] [place] [address] Dec, [facility] [place] [facility] [address] [id number] [place] [address] Nov, [facility] [place] [facility] [address] [id number] [place] [address] Nov, [facility] [place] [facility] [address] [id number] [place] [address] Oct, [facility] [place] [facility] [address] [id number] [place] [address] Oct, [facility] [place] [facility] [address] [id number] [place] [address] Oct, [facility] [place] [facility] [address] [id number] [place] [address] Sep, [facility] [place] [facility] [address] [id number] [place] [address] Sep, [facility] [place] [facility] [address] [id number] [place] [address] Sep, [facility] [place] [facility] [address] [id number] [place] [address] Sep, [facility] [place] [facility] [address] [id number] [place] [address] Sep, [facility] [place] [facility] [address] [id number] [place] [address] Sep, [facility] [address] [id number] [place] [address] Sep, [facility] [place] [facility] [address] [id number] [place] [address] Sep, [facility] [place] [facility] [address] [id number] [place] [address] Sep, [facility] [place] [facility] [address] [id number] [place] [address] Sep, [facility] [place] [facility] [address] [id number] [place] [address] Sep, [facility] [place] [facility] [address] [id number] [place] [address] Sep, [facility] [place] [facility] [address] [id number] [place] [address] Aug, [facility] [place] [facility] [address] [id number], [place] [address] Aug, [facility] [place] [facility] [address] [id number], [place] [address] Aug, [facility] [place] [facility] [address] [id number], [place] [address] Aug, [facility] [place] [facility] [address] [id number], [place] [address] Jul, [facility] [place] [facility] [address] [id number], [place] [address] Jul, [facility] [place] [facility] [address] [id number], [place] [address] Jun, [facility] [place] [facility] [address] [id number], [place] [address] Jun, [facility] [place] [facility] [address] [id number], [place] [address] Jun, [facility] [place] [facility] [address] [id number] [place] [address] Jun, [facility] [place] [facility] [address] [id number] [place] [address] Jun, [facility] [place] [facility] [address] [id number] [place] [address] Jun, [facility] [place] [facility] [address] [id number] [place] [address] Jun, [facility] [place] [facility] [address] [id number] [place] [address] 04 Jun, 2013 [facility] [place] [facility] [address] [id number] [place] [address] 24 May, 2013 [facility] [place] [facility] [address] [id number] [place] [address] 23 May, 2012 [facility] [place] [facility] [address] [id number] [place] [address] 18 May, 2012 [facility] [place] [facility] [address] [id number] [place] [address] 13 May, 2012 [facility] [place] [facility] [address] [id number] [place] [address] 11 May, 2012 [facility] [place] [facility] [address] [id number] [place] [address] 06 May, 2012 [facility] [place] [facility] [address] [id number] [place] [address] 03 May, 2012 [facility] [place] [facility] [address] [id number] [place] [address] 30 Apr, 2013 [facility] [place] [facility] [address] [id number] [place] [address] Apr, [facility] [place] [facility] [address] [id number] [place] [address] Apr, [facility] [place] [facility] [address] [id number] [place] [address] Apr, [facility] [place] [facility] [address] [id number] [place] [address] Apr, [facility] [place] [facility] [address] [id number] [place] [address] Apr, [facility] [place] [facility] [address] [id number] [place] [address] Apr, [facility] [place] [facility] [address] [id number] [place] [address] Mar, [facility] [address] [id number] [place] [address] Mar, [facility] [place] [facility] [address] [id number] [place] [address] Mar, [facility] [address] [id number] [place] [address] Mar, [facility] [address] [id number] [place] [address] Mar, [facility] [address] [id number] [place] [address] Mar, [facility] [place] [facility] [address] [id number] [place] [address] Mar, [facility] [place] [facility] [address] [id number] [place] [address] Mar, [facility] [place] [facility] [address] [id number] [place] [address] Feb, [facility] [place] [facility] [address] [id number] [place] [address] Feb, [facility] [place] [facility] [address] [id number] [place] [address] Feb, [facility] [place] [facility] [address] [id number] [place] [address] January, [facility] [place] [facility] [address] [id number] [place] [address] January, [facility] [address] [id number] [place] [address] January, [facility] [address] [id number] [place] [address] January, [facility] [address] [id number] [place] [address] January, [facility] [address] [id number] [place] [address] January, [facility] [address] [id number] [place] [address] January, [facility] [address] [id number] [place] [address] January, [facility] [address] [id number] [place] [address] Dec, [facility] [address] [id number] [place] [address] Dec, [facility] [address] [id number] [place] [address] Dec, [facility] [address] [id number] [place] [address] Dec, [facility] [address] [id number] [place] [address] Dec, [facility] [address] [id number] [place] [address] Nov, [facility] [place] [facility] [address] [id number] [place] [address] Nov, [facility] [place] [facility] [address] [id number] [place] [address] Nov, [facility] [place] [facility] [address] [id number] [place] [address] 18 Nov, 2012 [facility] [place] [facility] [address] [id number] [place] [address] 18 Nov, 2012 [facility] [address] [id number] [place] [address] 14 Nov, 2012 [facility] [place] [facility] [address] [id number] [place] [address] Nov, [facility] [address] [id number] [place] [address] Nov, [facility] [place] [facility] [address] [id number] [place] [address] Oct, [facility] [place] [facility] [address] [id number] [place] [address] Oct, [facility] [address] [id number] [place] [address] Oct, [facility] [address] [id number] [place] [address] 08 Oct, 2012 [facility] [address] [id number] [place] [address] Oct, [facility] [place] [facility] [address] [facility] [id number] [place] [address] 07 Oct, 2012 [facility] [place] [facility] [address] [facility] [id number] [place] [address] Oct, [facility] [place] [facility] [address] [id number], [place] [address] Oct, [facility] [place] [facility] [address] [id number] [place] [address] Oct, [facility] [place] [facility] [address] [id number] [place] [address] Sep, [facility] [place] [facility] [address] [id number] [place] [address] Sep, [facility] [place] [facility] [address] [id number], [place] [address] Sep, [facility] [address] [id number] [place] [address] Sep, [facility] [place] [facility] [address] [id number] [place] [address] Sep, [facility] [place] [facility] [address] [id number] [place] [address] Sep, [facility] [place] [facility] [address] [id number] [place] [address] Aug, [facility] [place] [facility] [address] [id number] [place] [address] Aug, [facility] [place] [facility] [address] [id number] [place] [address] Aug, [facility] [address] [id number] [place] [address] Aug, [facility] [place] [facility] [address] [id number] [place] [address] Aug, [facility] [place] [facility] [address] [id number] [place] [address] Aug, [facility] [place] [facility] [address] [id number] [place] [address] Aug, [facility] [place] [facility] [address] [id number] [place] [address] Aug, [facility] [place] [facility] [address] [id number] [place] [address] Aug, [facility] [place] [facility] [address] [id number] [place] [address] Jul, [facility] [place] [facility] [address] [id number] [place] [address] Jul, [facility] [place] [facility] [address] [id number] [place] [address] Jul, [facility] [place] [facility] [address] [id number], [place] [address] Jul, [facility] [address] [id number], [place] [address] Nov, [facility] [id number], [place] [address] Sep, [facility] [id number], [place] [address] Aug, [facility] [id number], [place] [address] Aug, [facility] [id number] [place] [address] Aug, [facility] [id number], [place] [address] Jul, IMMUNIZATIONS No Known Immunizations SOCIAL HISTORY Never Assessed REASON FOR VISIT EMR-[facility] PLAN OF CARE VITAL SIGNS MEDICATIONS Unknown Medications RESULTS No Results PROCEDURES [...] Surgical History transesophageal echocardiogram-EF 55-60%, normal RVSP 04/2013 Surgical History heart cath-50% occlusion of proximal LAD, no stent--Lupe to monitor 09/2013 Surgical History laminectomy with discectomy/cervical spine fusion C4-6 05/2005 and 02/2006 Surgical History arthroscopic knee surgery-right 05/2005 Surgical History Right Rotator Cuff Repair Zafuda 06/2016 Surgical History Colonoscopy Kido (1 Polyp) repeat 5 years 2019 2014 Surgical History right rotator cuff surgery 06/27/2016 Hospitalization History Overdosed on Clonazepam #35. Donald 03/2014 Hospitalization History Overdosed on Xanax 07/2012 Hospitalization History Hypostension-medication side effect-[facility] 03/13/16
--- OUTSIDE RECORDS SUMMARY | 2019-02-13 17:44 | XMS REPORT ---
Author Author Migration, Doctor Organization [facility] Address Unknown Phone Unavailable Care Team Providers Care Media Job Titles Name Role Phone Migration, Doctor Unavailable Unavailable PROBLEMS Type Condition ICD9-CM Code LAP35-YT Code Onset Dates Condition Status SNOMED Code Problem Neuropathy G62.9 Active 196507202 Problem Essential hypertension I10 Active 16023516 Problem detention 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.4 Active 892673929 Problem Abdominal pain R10.9 Active 38318005 Problem Change in bowel habit R19.4 Active 96641561 Problem Coronary atherosclerosis due to lipid rich plaque I25.83 Active 41425111 Problem Type 2 diabetes 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 E11.8 Active 64246160 Problem Impotence N52.9 Active 818172952 Problem Family history of colon cancer Z80.0 Active 933656736 Problem Diabetic neuropathy, painful E11.40 Active 756818158 Problem Arm paresthesia, right R20.2 Active 93507464 Problem Gastroesophageal reflux disease without esophagitis K21.9 Active 587640931 Problem Drug abuse, opioid type F11.10 Active 5242164 Problem COPD exacerbation J44.1 Active 581236904 Problem Obstructive sleep apnea syndrome G47.33 Active 60469443 Problem Diverticulitis K57.92 Active 836282119 Problem Pain of right upper extremity M79.601 Active 001644482 Problem Respiratory bronchiolitis interstitial lung disease J84.115 Active 270717676 Problem Hypoxia R09.02 Active 199582571 Problem Interstitial lung disease J84.9 Active 265959786 ALLERGIES No Information ENCOUNTERS Encounter Location Date Diagnosis [facility] [address] [facility] [id number] [address] Aug, [facility] [address] [id number] [address] Aug, Diabetic neuropathy, painful E11.40 ; Interstitial lung disease J84.9 ; Chronic cough R05 ; Type 2 diabetes 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 E11.8 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 [facility] [address] [id number] [address] Jul, [facility] [id number] [place] [address] Jul, [facility] [id number] [place] [address] Jul, Diabetic neuropathy, painful E11.40 [place] [id number] [place] [address] Jul, Type 2 diabetes 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 E11.8 [place] [id number] [place] [address] Jun, Diabetic neuropathy, painful E11.40 [place] [id number] [place] [address] Jun, [facility] [id number] [place] [address] Jun, Type 2 diabetes 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 E11.8 ; Other viral agents as the cause of diseases classified elsewhere B97.89 ; Acute upper respiratory infection, unspecified J06.9 ; Acute recurrent maxillary sinusitis J01.01 ; Sore throat J02.9 and Headache R51 [place] [id number] [place] [address] Jun, Right lower quadrant abdominal pain R10.31 and Type 2 diabetes 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 E11.8 [place] [id number] [place] [address] May, Diabetic neuropathy, painful E11.40 [place] [id number] [place] [address] May, COPD exacerbation J44.1 and Type 2 diabetes 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 E11.8 [place] [id number] [place] [address] Apr, Diabetic neuropathy, painful E11.40 [place] [id number] [place] [address] Apr, Diabetic neuropathy, painful E11.40 [facility] [address] [address] Mar, Bronchitis J40 [facility] [address] [address] January, Type 2 diabetes 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 [...] and Cervical spinal stenosis M48.02 [facility] [place] [address] [address] January, Viral gastroenteritis A08.4 [place] [address] [address] Dec, Diabetic neuropathy, painful E11.40 [facility] [address] [id number] Oct, [facility] [address] [address] Oct, Acute right-sided weakness M62.89 and Slurring of speech R47.81 [place] [address] [address] Sep, Type 2 diabetes 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 E11.8 ; Diabetic neuropathy, painful E11.40 ; Impotence N52.9 ; Coronary atherosclerosis due to lipid rich plaque I25.83 ; detention 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.4 ; Interstitial lung disease J84.9 ; Hypoxia R09.02 ; Essential hypertension I10 and Gastroesophageal reflux disease without esophagitis K21.9 [facility] [id number] [place] [address] Sep, Bronchitis J40 [facility] [id number] [place] [address] Aug, Gastroenteritis and colitis, viral A08.4 [facility] [id number] [place] [address] Aug, [facility] [address] [address] Jun, Type 2 diabetes 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 E11.8 ; Diabetic neuropathy, painful E11.40 ; Impotence N52.9 ; Coronary atherosclerosis due to lipid rich plaque I25.83 ; detention 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.4 ; Interstitial lung disease J84.9 ; Hypoxia R09.02 and Essential hypertension I10 [facility] [address] [address] 30 May, 2016 Bronchitis J40 [facility] [address] [address] 29 May, 2016 [facility] [id number] [place] [address] 20 May, 2016 Pain of right upper extremity M79.601 [facility] [id number] [place] [address] May, [facility] [id number] [place] [address] 15 May, 2016 [facility] [address] [address] 07 May, 2016 Right hand pain M79.641 [facility] [id number] [place] [address] Apr, [facility] [address] [address] Apr, [facility] [id number] [place] [address] Mar, [facility] [address] [address] Mar, Essential hypertension I10 [place] [id number] [place] [address] Feb, [place] [id number] [place] [address] Feb, Interstitial lung disease J84.9 and Bronchitis J40 [place] [id number] [place] [address] Feb, [place] [id number] [place] [address] Feb, Type 2 diabetes 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 E11.8 ; Impotence N52.9 ; Coronary atherosclerosis due to lipid rich plaque I25.83 ; detention 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.4 and Diabetic neuropathy, painful E11.40 [place] [id number] [place] [address] January, [place] [id number] [place] [address] January, Arm paresthesia, right R20.2 and Pain of right upper extremity M79.601 [place] [id number] [place] [address] Dec, Lumbar strain S39.012A [place] [id number] [place] [address] Nov, Diabetic neuropathy, painful E11.40 ; Respiratory bronchiolitis interstitial lung disease J84.115 ; Pain of right upper extremity M79.601 and Arm paresthesia, right R20.2 [place] [id number] [place] [address] Nov, Diabetic neuropathy, painful E11.40 [place] [address] [place] [address] Sep, Type 2 diabetes 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 E11.8 ; Impotence N52.9 ; Coronary atherosclerosis due to lipid rich plaque I25.83 ; detention 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.4 ; Diabetic neuropathy, painful E11.40 ; Chest pain R07.9 and Restless leg G25.81 [place] [id number] [place] [address] Sep, [place] [id number] [place] [address] Jul, COPD (chronic obstructive pulmonary disease) with acute bronchitis J44.0 [place] [address] [address] Jun, Abdominal pain R10.9 ; Family history of colon cancer Z80.0 and Diverticulitis K57.92 [place] [id number] [place] [address] Jun, Abdominal pain R10.9 and Diverticulitis K57.92 [place] [address] [address] Apr, Diabetes with other specified manifestations, type II or unspecified type, not stated as uncontrolled 250.80 ; Coronary atherosclerosis of unspecified type of vessel, agdaagux or graft 414.00 ; Unspecified essential hypertension 401.9 ; Impotence of organic origin 607.84 ; Sleep apnea 780.57 and Interstitial lung disease [address] [place] [id number] [place] [address] Dec, [place] [id number] [place] [address] Dec, [place] [id number] [place] [address] Nov, [place] [address] [address] Nov, [place] [id number] [place] [address] Nov, [place] [address] [address] Nov, [facility] [place] [facility] [address] [id number] [place] [address] Nov, [facility] [place] [facility] [address] [id number] [place] [address] Nov, [facility] [place] [facility] [address] [facility] [id number] [place] [address] Nov, [facility] [place] [facility] [address] [id number] [place] [address] Nov, [facility] [place] [facility] [address] [id number] [place] [address] Nov, [facility] [place] [facility] [address] [id number] [place] [address] Nov, [facility] [place] [facility] [address] [facility] [id number] [place] [address] Oct, 2014 [facility] [place] [facility] [address] [facility] [id number] [place] [address] Oct, 2014 [facility] [place] [facility] [address] [facility] [id number] [place] [address] Oct, 2014 [facility] [place] [facility] [address] [facility] [id number] [place] [address] Oct, 2014 [facility] [place] [facility] [address] [facility] [id number] [place] [address] Oct, 2014 [facility] [place] [facility] [address] [facility] [id number] [address] Oct, 2014 [facility] [place] [facility] [address] [facility] [id number] [place] [address] Oct, 2014 [facility] [place] [facility] [address] [facility] [id number] [place] [address] Oct, 2014 [facility] [place] [facility] [address] [facility] [id number] [place] [address] Oct, 2014 [facility] [place] [facility] [address] [id number] [place] [address] Oct, 2014 [facility] [place] [facility] [address] [id number] [place] [address] Oct, 2014 [facility] [place] [facility] [address] [id number] [place] [address] Jul, [facility] [place] [facility] [address] [id number] [place] [address] Jul, [facility] [place] [facility] [address] [id number] [place] [address] Jun, [facility] [place] [facility] [address] [id number] [place] [address] Jun, [facility] [place] [facility] [address] [id number] [place] [address] Jun, [facility] [place] [facility] [address] [id number] [place] [address] 17 Jun, 2014 [facility] [place] [facility] [address] [id number] [place] [address] 15 Jun, 2014 [facility] [place] [facility] [address] [id number] [place] [address] 15 Jun, 2014 [facility] [place] [facility] [address] [id number] [place] [address] 14 Jun, 2014 [facility] [place] [facility] [address] [id number] [place] [address] 14 Jun, 2014 [facility] [place] [facility] [address] [id number] [place] [address] 13 Jun, 2014 [facility] [place] [facility] [address] [id number] [place] [address] Jun, [facility] [place] [facility] [address] [id number] [place] [address] 08 Jun, 2014 [facility] [place] [facility] [address] [id number] [place] [address] Jun, [facility] [place] [facility] [address] [id number] [place] [address] Jun, [facility] [place] [facility] [address] [id number] [place] [address] Jun, [facility] [place] [facility] [address] [id number] [place] [address] 30 May, 2013 [facility] [place] [facility] [address] [id number] [place] [address] 30 May, 2013 [facility] [place] [facility] [address] [id number] [place] [address] May, [facility] [place] [facility] [address] [id number] [place] [address] May, [facility] [place] [facility] [address] [id number] [place] [address] 05 May, 2014 [facility] [place] [facility] [address] [id number] [place] [address] 05 May, 2014 [facility] [place] [facility] [address] [id number] [place] [address] Apr, [facility] [place] [facility] [address] [id number] [place] [address] Apr, [facility] [place] [facility] [address] [id number] [place] [address] Apr, [facility] [place] [facility] [address] [id number] [place] [address] Apr, [facility] [place] [facility] [address] [id number] [place] [address] Apr, [facility] [place] [facility] [address] [id number] [place] [address] Apr, [facility] [place] [facility] [address] [id number] [place] [address] Apr, [facility] [place] [facility] [address] [id number] [place] [address] Apr, [facility] [place] [facility] [address] [id number] [place] [address] Apr, [facility] [place] [facility] [address] [id number] [place] [address] Apr, [facility] [place] [facility] [address] [id number] [place] [address] Apr, [facility] [place] [facility] [address] [id number] [place] [address] Apr, [facility] [place] [facility] [address] [id number] [place] [address] Mar, [facility] [place] [facility] [address] [id number] [place] [address] Mar, [facility] [place] [facility] [address] [id number] [place] [address] Mar, [facility] [place] [facility] [address] [id number] [place] [address] Mar, [facility] [place] [facility] [address] [id number] [place] [address] Mar, [facility] [place] [facility] [address] [id number] [place] [address] Mar, [facility] [place] [facility] [address] [id number] [place] [address] Mar, [facility] [place] [facility] [address] [id number] [place] [address] Mar, [facility] [place] [facility] [address] [id number] [place] [address] Mar, [facility] [place] [facility] [address] [id number] [place] [address] Mar, [facility] [place] [facility] [address] [id number] [place] [address] Mar, [facility] [place] [facility] [address] [id number] [place] [address] Feb, [facility] [place] [facility] [address] [id number] [place] [address] Feb, [facility] [place] [facility] [address] [id number] [place] [address] Feb, [facility] [place] [facility] [address] [id number] [place] [address] Feb, [facility] [place] [facility] [address] [id number] [place] [address] Feb, [facility] [place] [facility] [address] [id number] [place] [address] Feb, [facility] [place] [facility] [address] [id number] [place] [address] Feb, [facility] [place] [facility] [address] [id number] [place] [address] Feb, [facility] [place] [facility] [address] [id number] [place] [address] Feb, [facility] [place] [facility] [address] [id number] [place] [address] Feb, [facility] [place] [facility] [address] [id number] [place] [address] January, [facility] [place] [facility] [address] [id number] [place] [address] January, [facility] [place] [facility] [address] [id number] [place] [address] January, [facility] [place] [facility] [address] [id number] [place] [address] January, [facility] [place] [facility] [address] [id number] [place] [address] January, [facility] [place] [facility] [address] [id number] [place] [address] January, [facility] [address] [id number] [place] [address] January, [facility] [place] [facility] [address] [id number] [place] [address] January, [facility] [place] [facility] [address] [id number] [place] [address] January, [facility] [place] [facility] [address] [id number] [place] [address] January, [facility] [place] [facility] [address] [id number] [place] [address] January, [facility] [place] [facility] [address] [id number] [place] [address] January, [facility] [place] [facility] [address] [id number] [place] [address] January, [facility] [place] [facility] [address] [id number] [place] [address] January, [facility] [place] [facility] [address] [id number] [place] [address] January, [facility] [place] [facility] [address] [id number] [place] [address] January, [facility] [place] [facility] [address] [id number] [place] [address] Dec, [facility] [place] [facility] [address] [id number] [place] [address] Dec, [facility] [place] [facility] [address] [id number] [place] [address] Dec, [facility] [place] [facility] [address] [id number] [place] [address] Dec, [facility] [place] [facility] [address] [id number] [place] [address] Dec, [facility] [place] [facility] [address] [id number] [place] [address] Dec, [facility] [place] [facility] [address] [id number] [place] [address] Dec, [facility] [place] [facility] [address] [id number] [place] [address] Dec, [facility] [place] [facility] [address] [id number] [place] [address] Dec, [facility] [place] [facility] [address] [id number] [place] [address] Dec, [facility] [place] [facility] [address] [id number] [place] [address] Nov, [facility] [place] [facility] [address] [id number] [place] [address] Nov, [facility] [place] [facility] [address] [id number] [place] [address] Oct, [facility] [place] [facility] [address] [id number] [place] [address] Oct, [facility] [place] [facility] [address] [id number] [place] [address] Oct, [facility] [place] [facility] [address] [id number] [place] [address] Sep, [facility] [place] [facility] [address] [id number] [place] [address] Sep, [facility] [place] [facility] [address] [id number] [place] [address] Sep, [facility] [place] [facility] [address] [id number] [place] [address] Sep, [facility] [place] [facility] [address] [id number] [place] [address] Sep, [facility] [place] [facility] [address] [id number] [place] [address] Sep, [facility] [address] [id number] [place] [address] Sep, [facility] [place] [facility] [address] [id number] [place] [address] Sep, [facility] [place] [facility] [address] [id number] [place] [address] Sep, [facility] [place] [facility] [address] [id number] [place] [address] Sep, [facility] [place] [facility] [address] [id number] [place] [address] Sep, [facility] [place] [facility] [address] [id number] [place] [address] Sep, [facility] [place] [facility] [address] [id number] [place] [address] Aug, [facility] [place] [facility] [address] [id number], [place] [address] Aug, [facility] [place] [facility] [address] [id number], [place] [address] Aug, [facility] [facility] [address] [id number], [place] [address] Aug, [facility] [place] [facility] [address] [id number], [place] [address] Jul, [facility] [address] [id number], [place] [address] Jul, [facility] [address] [id number], [place] [address] Jun, [facility] [address] [id number], [place] [address] Jun, [facility] [address] [id number], [place] [address] Jun, [facility] [place] [facility] [address] [id number] [place] [address] Jun, [facility] [place] [facility] [address] [id number] [place] [address] Jun, [facility] [place] [facility] [address] [id number] [place] [address] Jun, [facility] [place] [facility] [address] [id number] [place] [address] Jun, [facility] [place] [facility] [address] [id number] [place] [address] 04 Jun, 2013 [facility] [place] [facility] [address] [id number] [place] [address] 24 May, 2013 [facility] [place] [facility] [address] [id number] [place] [address] 23 May, 2012 [facility] [place] [facility] [address] [id number] [place] [address] 18 May, 2012 [facility] [place] [facility] [address] [id number] [place] [address] 13 May, 2012 [facility] [place] [facility] [address] [id number] [place] [address] 11 May, 2012 [facility] [place] [address] [id number] [place] [address] 06 May, 2012 [facility] [place] [facility] [address] [id number] [place] [address] 03 May, 2012 [facility] [place] [facility] [address] [id number] [place] [address] 30 Apr, 2013 [facility] [place] [facility] [address] [id number] [place] [address] Apr, [facility] [place] [facility] [address] [id number] [place] [address] Apr, [facility] [place] [facility] [address] [id number] [place] [address] Apr, [facility] [place] [facility] [address] [id number] [place] [address] Apr, [facility] [place] [facility] [address] [id number] [place] [address] Apr, [facility] [address] [id number] [place] [address] Apr, [facility] [place] [facility] [address] [id number] [place] [address] Mar, [facility] [address] [id number] [place] [address] Mar, [facility] [place] [facility] [address] [id number] [place] [address] Mar, [facility] [address] [id number] [place] [address] Mar, [facility] [address] [id number] [place] [address] Mar, [facility] [address] [id number] [place] [address] Mar, [facility] [address] [id number] [place] [address] Mar, [facility] [address] [id number] [place] [address] Mar, [facility] [place] [facility] [address] [id number] [place] [address] Feb, [facility] [place] [facility] [address] [id number] [place] [address] Feb, [facility] [place] [facility] [address] [id number] [place] [address] Feb, [facility] [address] [id number] [place] [address] January, [facility] [address] [id number] [place] [address] January, [facility] [address] [id number] [place] [address] January, [facility] [address] [id number] [place] [address] January, [facility] [address] [id number] [place] [address] January, [facility] [address] [id number] [place] [address] January, [facility] [address] [id number] [place] [address] January, [facility] [address] [id number] [place] [id number] January, [facility] [address] [id number] [place] [address] Dec, [facility] [address] [id number] [place] [address] Dec, [facility] [address] [id number] [place] [address] Dec, [facility] [address] [id number] [place] [address] Dec, [facility] [address] [id number] [place] [address] Dec, [facility] [address] [id number] [place] [address] Nov, [facility] [place] [facility] [address] [id number] [place] [address] Nov, [facility] [place] [facility] [address] [id number] [place] [address] Nov, [facility] [place] [facility] [address] [id number] [place] [address] 18 Nov, 2012 [facility] [place] [facility] [address] [id number] [place] [address] 18 Nov, 2012 [facility] [address] [id number] [place] [address] 14 Nov, 2012 [facility] [place] [facility] [address] [id number] [place] [address] Nov, [facility] [address] [id number] [place] [address] Nov, [facility] [place] [facility] [address] [id number] [place] [address] Oct, [facility] [place] [facility] [address] [id number] [place] [address] Oct, [facility] [address] [id number] [place] [address] Oct, [facility] [address] [id number] [place] [address] 08 Oct, 2012 [facility] [address] [id number] [place] [address] Oct, [facility] [place] [facility] [address] [facility] [id number] [place] [address] 07 Oct, 2012 [facility] [place] [facility] [address] [facility] [id number] [place] [address] Oct, [facility] [place] [facility] [address] [id number], [place] [address] Oct, [facility] [place] [facility] [address] [id number] [place] [address] Oct, [facility] [place] [facility] [address] [id number] [place] [address] Sep, [facility] [place] [facility] [address] [id number] [place] [address] Sep, [facility] [place] [facility] [address] [id number], [place] [address] Sep, [facility] [address] [id number] [place] [address] Sep, [facility] [place] [facility] [address] [id number] [place] [address] Sep, [facility] [place] [facility] [address] [id number] [place] [address] Sep, [facility] [place] [facility] [address] [id number] [place] [address] Aug, [facility] [place] [facility] [address] [id number] [place] [address] Aug, [facility] [place] [facility] [address] [id number] [place] [address] Aug, [facility] [address] [id number] [place] [address] Aug, [facility] [place] [facility] [address] [id number] [place] [address] Aug, [facility] [place] [facility] [address] [id number] [place] [address] Aug, [facility] [place] [facility] [address] [id number] [place] [address] Aug, [facility] [place] [facility] [address] [id number] [place] [address] Aug, [facility] [place] [facility] [address] [id number] [place] [address] Aug, [facility] [place] [facility] [address] [id number] [place] [address] Jul, [facility] [place] [facility] [address] [id number] [place] [address] Jul, [facility] [place] [facility] [address] [id number] [place] [address] Jul, [facility] [place] [facility] [address] [id number], [place] [address] Jul, [facility] [address] [id number], [place] [address] Nov, [facility] [id number], [place] [address] Sep, [facility] [id number], [place] [address] Aug, [facility] [id number], [place] [address] Aug, [facility] [id number] [place] [address] Aug, [facility] [id number], [place] [address] Jul, IMMUNIZATIONS No Known Immunizations SOCIAL HISTORY Never Assessed REASON FOR VISIT EMR[place] [place] OF CARE VITAL SIGNS MEDICATIONS Unknown [...] 06/27/2016 Hospitalization History Overdosed on Clonazepam #35. [place] 03/2014 Hospitalization History Overdosed on Xanax 07/2012 Hospitalization History Hypostension-medication side effect-[facility] 03/13/16
--- OUTSIDE RECORDS SUMMARY | 2019-02-13 17:45 | XMS REPORT ---
Author Author Migration, Doctor Organization [facility] Address Unknown Phone Unavailable Care Team Providers Care Hearing Aid Technician Name Role Phone Migration, Doctor Unavailable Unavailable PROBLEMS Type Condition ICD9-CM Code SGN57-HU Code Onset Dates Condition Status SNOMED Code Problem Neuropathy G62.9 Active 336865050 Problem Essential hypertension I10 Active 77066868 Problem longterm 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.4 Active 137906525 Problem Abdominal pain R10.9 Active 97832062 Problem Change in bowel habit R19.4 Active 36274400 Problem Coronary atherosclerosis due to lipid rich plaque I25.83 Active 90163725 Problem Type 2 diabetes 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 E11.8 Active 27458214 Problem Impotence N52.9 Active 561031834 Problem Family history of colon cancer Z80.0 Active 337298872 Problem Diabetic neuropathy, painful E11.40 Active 201325539 Problem Arm paresthesia, right R20.2 Active 19076010 Problem Gastroesophageal reflux disease without esophagitis K21.9 Active 866642832 Problem Drug abuse, opioid type F11.10 Active 8370746 Problem COPD exacerbation J44.1 Active 476495692 Problem Obstructive sleep apnea syndrome G47.33 Active 83406428 Problem Diverticulitis K57.92 Active 723335862 Problem Pain of right upper extremity M79.601 Active 372553764 Problem Respiratory bronchiolitis interstitial lung disease J84.115 Active 398394345 Problem Hypoxia R09.02 Active 824252621 Problem Interstitial lung disease J84.9 Active 652585554 ALLERGIES No Information ENCOUNTERS Encounter Location Date Diagnosis [facility] [address] [facility] [id number] [address] Aug, [facility] [address] [id number] [address] Aug, Diabetic neuropathy, painful E11.40 ; Interstitial lung disease J84.9 ; Chronic cough R05 ; Type 2 diabetes 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 E11.8 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 [facility] [id number] [address] Jul, [facility] [id number] [place] [address] Jul, [facility] [id number] [place] [address] Jul, Diabetic neuropathy, painful E11.40 [place] [id number] [place] [address] Jul, Type 2 diabetes 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 E11.8 [place] [id number] [place] [address] Jun, Diabetic neuropathy, painful E11.40 [place] [id number] [place] [address] Jun, [facility] [id number] [place] [address] Jun, Type 2 diabetes 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 E11.8 ; Other viral agents as the cause of diseases classified elsewhere B97.89 ; Acute upper respiratory infection, unspecified J06.9 ; Acute recurrent maxillary sinusitis J01.01 ; Sore throat J02.9 and Headache R51 [place] [id number] [place] [address] Jun, Right lower quadrant abdominal pain R10.31 and Type 2 diabetes 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 E11.8 [place] [id number] [place] [address] May, Diabetic neuropathy, painful E11.40 [place] [id number] [place] [address] May, COPD exacerbation J44.1 and Type 2 diabetes 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 E11.8 [place] [id number] [place] [address] Apr, Diabetic neuropathy, painful E11.40 [place] [address] [id number] [place] [address] Apr, Diabetic neuropathy, painful E11.40 [facility] [address] [address] Mar, Bronchitis J40 [facility] [address] [address] January, Type 2 diabetes 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 E11.8 ; Diabetic neuropathy, painful E11.40 ; Impotence N52.9 ; Coronary atherosclerosis due to lipid rich plaque I25.83 ; longterm 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.4 ; Interstitial lung disease J84.9 ; Hypoxia R09.02 ; Essential hypertension I10 ; Gastroesophageal reflux disease without esophagitis K21.9 ; Left upper arm pain M79.622 and Cervical spinal stenosis M48.02 [facility] [place] [address] [address] January, Viral gastroenteritis A08.4 [place] [address] [address] Dec, Diabetic neuropathy, painful E11.40 [facility] [address] [id number] Oct, [facility] [address] [address] Oct, Acute right-sided weakness M62.89 and Slurring of speech R47.81 [place] [address] [address] Sep, Type 2 diabetes 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 E11.8 ; Diabetic neuropathy, painful E11.40 ; Impotence N52.9 ; Coronary atherosclerosis due to lipid rich plaque I25.83 ; longterm 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.4 ; Interstitial lung disease J84.9 ; Hypoxia R09.02 ; Essential hypertension I10 and Gastroesophageal reflux disease without esophagitis K21.9 [facility] IN [facility] [id number] [place] [address] Sep, Bronchitis J40 [facility] [id number] [place] [address] Aug, Gastroenteritis and colitis, viral A08.4 [facility] [id number] [place] [address] Aug, [facility] [address] [address] Jun, Type 2 diabetes 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 E11.8 ; Diabetic neuropathy, painful E11.40 ; Impotence N52.9 ; Coronary atherosclerosis due to lipid rich plaque I25.83 ; longterm 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.4 ; Interstitial lung disease J84.9 ; Hypoxia R09.02 and Essential hypertension I10 [facility] [address] [address] 30 May, 2016 Bronchitis J40 [facility] [address] [address] 29 May, 2016 [facility] [id number] [place] [address] 20 May, 2016 Pain of right upper extremity M79.601 [facility] [id number] [place] [address] May, [facility] [id number] [place] [address] 15 May, 2016 [facility] [address] [address] 07 May, 2016 Right hand pain M79.641 [facility] [id number] [place] [address] Apr, [facility] [address] [address] Apr, [facility] [id number] [place] [address] Mar, [facility] [address] [address] Mar, Essential hypertension I10 [place] [id number] [place] [address] Feb, [place] [id number] [place] [address] Feb, Interstitial lung disease J84.9 and Bronchitis J40 [place] [id number] [place] [address] Feb, [place] [id number] [place] [address] Feb, Type 2 diabetes 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 E11.8 ; Impotence N52.9 ; Coronary atherosclerosis due to lipid rich plaque I25.83 ; longterm 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.4 and Diabetic neuropathy, painful E11.40 [place] [id number] [place] [address] January, [place] [id number] [place] [address] January, Arm paresthesia, right R20.2 and Pain of right upper extremity M79.601 [place] [id number] [place] [address] Dec, Lumbar strain S39.012A [place] [id number] [place] [address] Nov, Diabetic neuropathy, painful E11.40 ; Respiratory bronchiolitis interstitial lung disease J84.115 ; Pain of right upper extremity M79.601 and Arm paresthesia, right R20.2 [place] [id number] [place] [address] Nov, Diabetic neuropathy, painful E11.40 [place] [id number] [place] [address] Sep, Type 2 diabetes 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 E11.8 ; Impotence N52.9 ; Coronary atherosclerosis due to lipid rich plaque I25.83 ; longterm 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.4 ; Diabetic neuropathy, painful E11.40 ; Chest pain R07.9 and Restless leg G25.81 [place] [id number] [place] [address] Sep, [place] [id number] [place] [address] Jul, COPD (chronic obstructive pulmonary disease) with acute bronchitis J44.0 [place] [address] [address] Jun, Abdominal pain R10.9 ; Family history of colon cancer Z80.0 and Diverticulitis K57.92 [place] [id number] [place] [address] Jun, Abdominal pain R10.9 and Diverticulitis K57.92 [place] [address] [address] Apr, Diabetes with other specified manifestations, type II or unspecified type, not stated as uncontrolled 250.80 ; Coronary atherosclerosis of unspecified type of vessel, lower brule or graft 414.00 ; Unspecified essential hypertension 401.9 ; Impotence of organic origin 607.84 ; Sleep apnea 780.57 and Interstitial lung disease [address] [place] [id number] [place] [address] Dec, [place] [id number] [place] [address] Dec, [place] [id number] [place] [address] Nov, [place] [address] [address] Nov, [place] [id number] [place] [address] Nov, [place] [address] [address] Nov, [facility] [place] [facility] [address] [id number] [place] [address] Nov, [facility] [place] [facility] [address] [id number] [place] [address] Nov, [facility] [place] [facility] [address] [facility] [id number] [place] [address] Nov, [facility] [place] [facility] [address] [id number] [place] [address] Nov, [facility] [place] [facility] [address] [id number] [place] [address] Nov, [facility] [place] [facility] [address] [id number] [place] [address] Nov, [facility] [place] [facility] [address] [facility] [id number] [place] [address] Oct, 2014 [facility] [place] [facility] [address] [facility] [id number] [place] [address] Oct, 2014 [facility] [place] [facility] [address] [facility] [id number] [place] [address] Oct, 2014 [facility] [place] [facility] [address] [facility] [id number] [place] [address] Oct, 2014 [facility] [place] [facility] [address] [facility] [id number] [place] [address] Oct, 2014 [facility] [place] [facility] [address] [facility] [id number] [place] [address] Oct, 2014 [facility] [place] [facility] [address] [facility] [id number] [place] [address] Oct, 2014 [facility] [place] [facility] [address] [facility] [id number] [place] [address] Oct, 2014 [facility] [place] [facility] [address] [facility] [id number] [place] [address] Oct, 2014 [facility] [place] [facility] [address] [id number] [place] [address] Oct, 2014 [facility] [place] [facility] [address] [id number] [place] [address] Oct, 2014 [facility] [place] [facility] [address] [id number] [place] [address] Jul, [facility] [place] [facility] [address] [id number] [place] [address] Jul, [facility] [place] [facility] [address] [id number] [place] [address] Jun, [facility] [place] [facility] [address] [id number] [place] [address] Jun, [facility] [place] [facility] [address] [id number] [place] [address] Jun, [facility] [place] [facility] [address] [id number] [place] [address] 17 Jun, 2014 [facility] [place] [facility] [address] [id number] [place] [address] 15 Jun, 2014 [facility] [place] [facility] [address] [id number] [place] [address] 15 Jun, 2014 [facility] [place] [facility] [address] [id number] [place] [address] 14 Jun, 2014 [facility] [place] [facility] [address] [id number] [place] [address] 14 Jun, 2014 [facility] [place] [facility] [address] [id number] [place] [address] 13 Jun, 2014 [facility] [place] [facility] [address] [id number] [place] [address] Jun, [facility] [place] [facility] [address] [id number] [place] [address] 08 Jun, 2014 [facility] [place] [facility] [address] [id number] [place] [address] Jun, [facility] [place] [facility] [address] [id number] [place] [address] Jun, [facility] [place] [facility] [address] [id number] [place] [address] Jun, [facility] [place] [facility] [address] [id number] [place] [address] 30 May, 2013 [facility] [place] [facility] [address] [id number] [place] [address] 30 May, 2013 [facility] [place] [facility] [address] [id number] [place] [address] May, [facility] [place] [facility] [address] [id number] [place] [address] May, [facility] [place] [facility] [address] [id number] [place] [address] 05 May, 2014 [facility] [place] [facility] [address] [id number] [place] [address] 05 May, 2014 [facility] [place] [facility] [address] [id number] [place] [address] Apr, [facility] [place] [facility] [address] [id number] [place] [address] Apr, [facility] [place] [facility] [address] [id number] [place] [address] Apr, [facility] [place] [facility] [address] [id number] [place] [address] Apr, [facility] [place] [facility] [address] [id number] [place] [address] Apr, [facility] [place] [facility] [address] [id number] [place] [address] Apr, [facility] [place] [facility] [address] [id number] [place] [address] Apr, [facility] [place] [facility] [address] [id number] [place] [address] Apr, [facility] [place] [facility] [address] [id number] [place] [address] Apr, [facility] [place] [facility] [address] [id number] [place] [address] Apr, [facility] [place] [facility] [address] [id number] [place] [address] Apr, [facility] [place] [facility] [address] [id number] [place] [address] Apr, [facility] [place] [facility] [address] [id number] [place] [address] Mar, [facility] [place] [facility] [address] [id number] [place] [address] Mar, [facility] [place] [facility] [address] [id number] [place] [address] Mar, [facility] [place] [facility] [address] [id number] [place] [address] Mar, [facility] [place] [facility] [address] [id number] [place] [address] Mar, [facility] [place] [facility] [address] [id number] [place] [address] Mar, [facility] [place] [facility] [address] [id number] [place] [address] Mar, [facility] [place] [facility] [address] [id number] [place] [address] Mar, [facility] [place] [facility] [address] [id number] [place] [address] Mar, [facility] [place] [facility] [address] [id number] [place] [address] Mar, [facility] [place] [facility] [address] [id number] [place] [address] Mar, [facility] [place] [facility] [address] [id number] [place] [address] Feb, [facility] [place] [facility] [address] [id number] [place] [address] Feb, [facility] [place] [facility] [address] [id number] [place] [address] Feb, [facility] [place] [facility] [address] [id number] [place] [address] Feb, [facility] [place] [facility] [address] [id number] [place] [address] Feb, [facility] [place] [facility] [address] [id number] [place] [address] Feb, [facility] [place] [facility] [address] [id number] [place] [address] Feb, [facility] [place] [facility] [address] [id number] [place] [address] Feb, [facility] [place] [facility] [address] [id number] [place] [address] Feb, [facility] [place] [facility] [address] [id number] [place] [address] Feb, [facility] [place] [facility] [address] [id number] [place] [address] January, [facility] [place] [facility] [address] [id number] [place] [address] January, [facility] [place] [facility] [address] [id number] [place] [address] January, [facility] [place] [facility] [address] [id number] [place] [address] January, [facility] [place] [facility] [address] [id number] [place] [address] January, [facility] [place] [facility] [address] [id number] [place] [address] January, [facility] [address] [id number] [place] [address] January, [facility] [place] [facility] [address] [id number] [place] [address] January, [facility] [place] [facility] [address] [id number] [place] [address] January, [facility] [place] [facility] [address] [id number] [place] [address] January, [facility] [place] [facility] [address] [id number] [place] [address] January, [facility] [place] [facility] [address] [id number] [place] [address] January, [facility] [place] [facility] [address] [id number] [place] [address] January, [facility] [place] [facility] [address] [id number] [place] [address] January, [facility] [place] [facility] [address] [id number] [place] [address] January, [facility] [place] [facility] [address] [id number] [place] [address] January, [facility] [place] [facility] [address] [id number] [place] [address] Dec, [facility] [place] [facility] [address] [id number] [place] [address] Dec, [facility] [place] [facility] [address] [id number] [place] [address] Dec, [facility] [place] [facility] [address] [id number] [place] [address] Dec, [facility] [place] [facility] [address] [id number] [place] [address] Dec, [facility] [place] [facility] [address] [id number] [place] [address] Dec, [facility] [place] [facility] [address] [id number] [place] [address] Dec, [facility] [place] [facility] [address] [id number] [place] [address] Dec, [facility] [place] [facility] [address] [id number] [place] [address] Dec, [facility] [place] [facility] [address] [id number] [place] [address] Dec, [facility] [place] [facility] [address] [id number] [place] [address] Nov, [facility] [place] [facility] [address] [id number] [place] [address] Nov, [facility] [place] [facility] [address] [id number] [place] [address] Oct, [facility] [place] [facility] [address] [id number] [place] [address] Oct, [facility] [place] [facility] [address] [id number] [place] [address] Oct, [facility] [place] [facility] [address] [id number] [place] [address] Sep, [facility] [place] [facility] [address] [id number] [place] [address] Sep, [facility] [place] [facility] [address] [id number] [place] [address] Sep, [facility] [place] [facility] [address] [id number] [place] [address] Sep, [facility] [place] [facility] [address] [id number] [place] [address] Sep, [facility] [place] [facility] [address] [id number] [place] [address] Sep, [facility] [address] [id number] [place] [address] Sep, [facility] [place] [facility] [address] [id number] [place] [address] Sep, [facility] [place] [facility] [address] [id number] [place] [address] Sep, [facility] [place] [facility] [address] [id number] [place] [address] Sep, [facility] [place] [facility] [address] [id number] [place] [address] Sep, [facility] [place] [facility] [address] [id number] [place] [address] Sep, [facility] [place] [facility] [address] [id number] [place] [address] Aug, [facility] [place] [facility] [address] [id number] [place] [address] Aug, [facility] [place] [facility] [address] [id number] [place] [address] Aug, [facility] [place] [facility] [address] [id number] [place] [address] Aug, [facility] [place] [facility] [address] [id number] [place] [address] Jul, [facility] [place] [facility] [address] [id number] [place] [address] Jul, [facility] [place] [facility] [address] [id number] [place] [address] Jun, [facility] [place] [facility] [address] [id number] [place] [address] Jun, [facility] [place] [facility] [address] [id number] [place] [address] Jun, [facility] [place] [facility] [address] [id number] [place] [address] Jun, [facility] [place] [facility] [address] [id number] [place] [address] Jun, [facility] [place] [facility] [address] [id number] [place] [address] Jun, [facility] [place] [facility] [address] [id number] [place] [address] Jun, [facility] [place] [facility] [address] [id number] [place] [address] 04 Jun, 2013 [facility] [place] [facility] [address] [id number] [place] [address] 24 May, 2013 [facility] [place] [facility] [address] [id number] [place] [address] 23 May, 2012 [facility] [place] [facility] [address] [id number] [place] [address] 18 May, 2012 [facility] [place] [facility] [address] [id number] [place] [address] 13 May, 2012 [facility] [place] [facility] [address] [id number] [place] [address] 11 May, 2012 [facility] [place] [facility] [address] [id number] [place] [address] 06 May, 2012 [facility] [place] [facility] [address] [id number] [place] [address] 03 May, 2012 [facility] [place] [facility] [address] [id number] [place] [address] 30 Apr, 2013 [facility] [place] [facility] [address] [id number] [place] [address] Apr, [facility] [place] [facility] [address] [id number] [place] [address] Apr, [facility] [place] [facility] [address] [id number] [place] [address] Apr, [facility] [place] [facility] [address] [id number] [place] [address] Apr, [facility] [place] [facility] [address] [id number] [place] [address] Apr, [facility] [place] [facility] [address] [id number] [place] [address] Apr, [facility] [place] [facility] [address] [id number] [place] [address] Mar, [facility] [address] [id number] [place] [address] Mar, [facility] [place] [facility] [address] [id number] [place] [address] Mar, [facility] [address] [id number] [place] [address] Mar, [facility] [address] [id number] [place] [address] Mar, [facility] [address] [id number] [place] [address] Mar, [facility] [place] [facility] [address] [id number] [place] [address] Mar, [facility] [place] [facility] [address] [id number] [place] [address] Mar, [facility] [place] [facility] [address] [id number] [place] [address] Feb, [facility] [place] [facility] [address] [id number] [place] [address] Feb, [facility] [place] [facility] [address] [id number] [place] [address] Feb, [facility] [place] [facility] [address] [id number] [place] [address] January, [facility] [place] [facility] [address] [id number] [place] [address] January, [facility] [address] [id number] [place] [address] January, [facility] [address] [id number] [place] [address] January, [facility] [address] [id number] [place] [address] January, [facility] [address] [id number] [place] [address] January, [facility] [address] [id number] [place] [address] January, [facility] [address] [id number] [place] [address] January, [facility] [address] [id number] [place] [address] Dec, [facility] [address] [id number] [place] [address] Dec, [facility] [address] [id number] [place] [address] Dec, [facility] [address] [id number] [place] [address] Dec, [facility] [address] [id number] [place] [address] Dec, [facility] [address] [id number] [place] [address] Nov, [facility] [place] [facility] [address] [id number] [place] [address] Nov, [facility] [place] [facility] [address] [id number] [place] [address] Nov, [facility] [place] [facility] [address] [id number] [place] [address] 18 Nov, 2012 [facility] [place] [facility] [address] [id number] [place] [address] 18 Nov, 2012 [facility] [address] [id number] [place] [address] 14 Nov, 2012 [facility] [place] [facility] [address] [id number] [place] [address] Nov, [facility] [address] [id number] [place] [address] Nov, [facility] [place] [facility] [address] [id number] [place] [address] Oct, [facility] [place] [facility] [address] [id number] [place] [address] Oct, [facility] [address] [id number] [place] [address] Oct, [facility] [address] [id number] [place] [address] 08 Oct, 2012 [facility] [address] [id number] [place] [address] Oct, [facility] [place] [facility] [address] [facility] [id number] [place] [address] 07 Oct, 2012 [facility] [place] [facility] [address] [facility] [id number] [place] [address] Oct, [facility] [place] [facility] [address] [id number] [address] Oct, [facility] [place] [facility] [address] [id number] [place] [address] Oct, [facility] [place] [facility] [address] [id number] [place] [address] Sep, [facility] [place] [facility] [address] [id number] [place] [address] Sep, [facility] [place] [facility] [address] [id number] [place] [address] Sep, [facility] [address] [id number] [place] [address] Sep, [facility] [place] [facility] [address] [id number] [place] [address] Sep, [facility] [place] [facility] [address] [id number] [place] [address] Sep, [facility] [place] [facility] [address] [id number] [place] [address] Aug, [facility] [place] [facility] [address] [id number] [place] [address] Aug, [facility] [place] [facility] [address] [id number] [place] [address] Aug, [facility] [address] [id number] [place] [address] Aug, [facility] [place] [facility] [address] [id number] [place] [address] Aug, [facility] [place] [facility] [address] [id number] [place] [address] Aug, [facility] [place] [facility] [address] [id number] [place] [address] Aug, [facility] [place] [facility] [address] [id number] [place] [address] Aug, [facility] [place] [facility] [address] [id number] [place] [address] Aug, [facility] [place] [facility] [address] [id number] [place] [address] Jul, [facility] [place] [facility] [address] [id number] [place] [address] Jul, [facility] [place] [facility] [address] [id number] [place] [address] Jul, [facility] [place] [facility] [id number] [address] Jul, [facility] [address] [id number] [address] Nov, [facility] [id number] [place] [address] Sep, [facility] [id number] [place] [address] Aug, [facility] [id number] [place] [address] Aug, [facility] [id number] [place] [address] Aug, [facility] [id number] [place] [address] Jul, IMMUNIZATIONS No Known Immunizations SOCIAL HISTORY Never Assessed REASON FOR VISIT EMR-[facility] [place] PLAN OF CARE VITAL SIGNS MEDICATIONS Unknown [...] 06/27/2016 Hospitalization History Overdosed on Clonazepam #35. [place] 03/2014 Hospitalization History Overdosed on Xanax 07/2012 Hospitalization History Hypostension-medication side effect-[facility] 03/13/16
--- OUTSIDE RECORDS SUMMARY | 2019-02-13 17:46 | XMS REPORT ---
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 Name Role Phone Migration, Doctor Unavailable Unavailable PROBLEMS Type Condition ICD9-CM Code QIS03-BB Code Onset Dates Condition Status SNOMED Code Problem Neuropathy G62.9 Active 257779535 Problem Essential hypertension I10 Active 57952259 Problem group home 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.4 Active 439840015 Problem Abdominal pain R10.9 Active 93332550 Problem Change in bowel habit R19.4 Active 29006968 Problem Coronary atherosclerosis due to lipid rich plaque I25.83 Active 19444184 Problem Type 2 diabetes 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 E11.8 Active 19898418 Problem Impotence N52.9 Active 747648919 Problem Family history of colon cancer Z80.0 Active 045637052 Problem Diabetic neuropathy, painful E11.40 Active 032459284 Problem Arm paresthesia, right R20.2 Active 41738015 Problem Gastroesophageal reflux disease without esophagitis K21.9 Active 525289836 Problem Drug abuse, opioid type F11.10 Active 5924305 Problem COPD exacerbation J44.1 Active 035568253 Problem Obstructive sleep apnea syndrome G47.33 Active 07282817 Problem Diverticulitis K57.92 Active 318380884 Problem Pain of right upper extremity M79.601 Active 231857635 Problem Respiratory bronchiolitis interstitial lung disease J84.115 Active 759959362 Problem Hypoxia R09.02 Active 451823483 Problem Interstitial lung disease J84.9 Active 263399731 ALLERGIES No Information ENCOUNTERS Encounter Location Date Diagnosis [facility] [address] [facility] [id number] [address] Aug, [facility] [address] [id number] [address] Aug, Diabetic neuropathy, painful E11.40 ; Interstitial lung disease J84.9 ; Chronic cough R05 ; Type 2 diabetes 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 E11.8 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 [facility] [address] [id number] [address] Jul, [facility] [id number] [place] [address] Jul, [facility] [id number] [place] [address] Jul, Diabetic neuropathy, painful E11.40 [place] [id number] [place] [address] Jul, Type 2 diabetes 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 E11.8 [place] [id number] [place] [address] Jun, Diabetic neuropathy, painful E11.40 [place] [id number] [place] [address] Jun, [facility] [id number] [place] [address] Jun, Type 2 diabetes 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 E11.8 ; Other viral agents as the cause of diseases classified elsewhere B97.89 ; Acute upper respiratory infection, unspecified J06.9 ; Acute recurrent maxillary sinusitis J01.01 ; Sore throat J02.9 and Headache R51 [place] [id number] [place] [address] Jun, Right lower quadrant abdominal pain R10.31 and Type 2 diabetes 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 E11.8 [place] [id number] [place] [address] May, Diabetic neuropathy, painful E11.40 [place] [id number] [place] [address] May, COPD exacerbation J44.1 and Type 2 diabetes 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 E11.8 [place] [id number] [place] [address] Apr, Diabetic neuropathy, painful E11.40 [place] [id number] [place] [address] Apr, Diabetic neuropathy, painful E11.40 [facility] [address] [address] Mar, Bronchitis J40 [facility] [address] [address] January, Type 2 diabetes 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 E11.8 ; Diabetic neuropathy, painful E11.40 ; Impotence N52.9 ; Coronary atherosclerosis due to lipid rich plaque I25.83 ; group home 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.4 ; Interstitial lung disease J84.9 ; Hypoxia R09.02 ; Essential hypertension I10 ; Gastroesophageal reflux disease without esophagitis K21.9 ; Left upper arm pain M79.622 and Cervical spinal stenosis M48.02 [facility] [place] [address] [address] January, Viral gastroenteritis A08.4 [place] [address] [address] Dec, Diabetic neuropathy, painful E11.40 [facility] [address] [id number] Oct, [facility] [address] [address] Oct, Acute right-sided weakness M62.89 and Slurring of speech R47.81 [place] [address] [address] Sep, Type 2 diabetes 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 E11.8 ; Diabetic neuropathy, painful E11.40 ; Impotence N52.9 ; Coronary atherosclerosis due to lipid rich plaque I25.83 ; group home 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.4 ; Interstitial lung disease J84.9 ; Hypoxia R09.02 ; Essential hypertension I10 and Gastroesophageal reflux disease without esophagitis K21.9 [facility] [id number] [place] [address] Sep, Bronchitis J40 [facility] [id number] [place] [address] Aug, Gastroenteritis and colitis, viral A08.4 [facility] [id number] [place] [address] Aug, [facility] [address] [address] Jun, Type 2 diabetes 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 E11.8 ; Diabetic neuropathy, painful E11.40 ; Impotence N52.9 ; Coronary atherosclerosis due to lipid rich plaque I25.83 ; group home 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.4 ; Interstitial lung disease J84.9 ; Hypoxia R09.02 and Essential hypertension I10 [facility] [address] [address] 30 May, 2016 Bronchitis J40 [facility] [address] [address] 29 May, 2016 [facility] [id number] [place] [address] 20 May, 2016 Pain of right upper extremity M79.601 [facility] [id number] [place] [address] May, [facility] [id number] [place] [address] 15 May, 2016 [facility] [address] [address] 07 May, 2016 Right hand pain M79.641 [facility] [id number] [place] [address] Apr, [facility] [address] [address] Apr, [facility] [id number] [place] [address] Mar, [facility] [address] [address] Mar, Essential hypertension I10 [place] [id number] [place] [address] Feb, [place] [id number] [place] [address] Feb, Interstitial lung disease J84.9 and Bronchitis J40 [place] [id number] [place] [address] Feb, [place] [id number] [place] [address] Feb, Type 2 diabetes 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 E11.8 ; Impotence N52.9 ; Coronary atherosclerosis due to lipid rich plaque I25.83 ; group home 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.4 and Diabetic neuropathy, painful E11.40 [place] [id number] [place] [address] January, [place] [id number] [place] [address] January, Arm paresthesia, right R20.2 and Pain of right upper extremity M79.601 [place] [id number] [place] [address] Dec, Lumbar strain S39.012A [place] [id number] [place] [address] Nov, Diabetic neuropathy, painful E11.40 ; Respiratory bronchiolitis interstitial lung disease J84.115 ; Pain of right upper extremity M79.601 and Arm paresthesia, right R20.2 [place] [id number] [place] [address] Nov, Diabetic neuropathy, painful E11.40 [place] [id number] [place] [address] Sep, Type 2 diabetes 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 E11.8 ; Impotence N52.9 ; Coronary atherosclerosis due to lipid rich plaque I25.83 ; group home 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.4 ; Diabetic neuropathy, painful E11.40 ; Chest pain R07.9 and Restless leg G25.81 [place] [id number] [place] [address] Sep, [place] [id number] [place] [address] Jul, COPD (chronic obstructive pulmonary disease) with acute bronchitis J44.0 [place] [address] [address] Jun, Abdominal pain R10.9 ; Family history of colon cancer Z80.0 and Diverticulitis K57.92 [place] [id number] [place] [address] Jun, Abdominal pain R10.9 and Diverticulitis K57.92 [place] [address] [address] Apr, Diabetes with other specified manifestations, type II or unspecified type, not stated as uncontrolled 250.80 ; Coronary atherosclerosis of unspecified type of vessel, tangirnaq or graft 414.00 ; Unspecified essential hypertension 401.9 ; Impotence of organic origin 607.84 ; Sleep apnea 780.57 and Interstitial lung disease [id number] [place] [address] Dec, [place] [id number] [place] [address] Dec, [place] [id number] [place] [address] Nov, [place] [address] [address] Nov, [place] [id number] [place] [address] Nov, [place] [address] [address] Nov, [facility] [place] [facility] [address] [id number] [place] [address] Nov, [facility] [place] [facility] [address] [id number] [place] [address] Nov, [facility] [place] [facility] [address] [facility] [id number] [place] [address] Nov, [facility] [place] [facility] [address] [id number] [place] [address] Nov, [facility] [place] [facility] [address] [id number] [place] [address] Nov, [facility] [place] [facility] [address] [id number] [place] [address] Nov, [facility] [place] [facility] [address] [facility] [id number] [place] [address] Oct, 2014 [facility] [place] [facility] [address] [facility] [id number] [place] [address] Oct, 2014 [facility] [place] [facility] [address] [facility] [id number] [place] [address] Oct, 2014 [facility] [place] [facility] [address] [facility] [id number] [place] [address] Oct, 2014 [facility] [place] [facility] [address] [facility] [id number] [place] [address] Oct, 2014 [facility] [place] [facility] [address] [facility] [id number] [address] Oct, 2014 [facility] [place] [facility] [address] [facility] [id number] [place] [address] Oct, 2014 [facility] [place] [facility] [address] [facility] [id number] [place] [address] Oct, 2014 [facility] [place] [facility] [address] [facility] [id number] [place] [address] Oct, 2014 [facility] [place] [facility] [address] [id number] [place] [address] Oct, 2014 [facility] [place] [facility] [address] [id number] [place] [address] Oct, 2014 [facility] [place] [facility] [address] [id number] [place] [address] Jul, [facility] [place] [facility] [address] [id number] [place] [address] Jul, [facility] [place] [facility] [address] [id number] [place] [address] Jun, [facility] [place] [facility] [address] [id number] [place] [address] Jun, [facility] [place] [facility] [address] [id number] [place] [address] Jun, [facility] [place] [facility] [address] [id number] [place] [address] 17 Jun, 2014 [facility] [place] [facility] [address] [id number] [place] [address] 15 Jun, 2014 [facility] [place] [facility] [address] [id number] [place] [address] 15 Jun, 2014 [facility] [place] [facility] [address] [id number] [place] [address] 14 Jun, 2014 [facility] [place] [facility] [address] [id number] [place] [address] 14 Jun, 2014 [facility] [place] [facility] [address] [id number] [place] [address] 13 Jun, 2014 [facility] [place] [facility] [address] [id number] [place] [address] Jun, [facility] [place] [facility] [address] [id number] [place] [address] 08 Jun, 2014 [facility] [place] [facility] [address] [id number] [place] [address] Jun, [facility] [place] [facility] [address] [id number] [place] [address] Jun, [facility] [place] [facility] [address] [id number] [place] [address] Jun, [facility] [place] [facility] [address] [id number] [place] [address] 30 May, 2013 [facility] [place] [facility] [address] [id number] [place] [address] 30 May, 2013 [facility] [place] [facility] [address] [id number] [place] [address] May, [facility] [place] [facility] [address] [id number] [place] [address] May, [facility] [place] [facility] [address] [id number] [place] [address] 05 May, 2014 [facility] [place] [facility] [address] [id number] [place] [address] 05 May, 2014 [facility] [place] [facility] [address] [id number] [place] [address] Apr, [facility] [place] [facility] [address] [id number] [place] [address] Apr, [facility] [place] [facility] [address] [id number] [place] [address] Apr, [facility] [place] [facility] [address] [id number] [place] [address] Apr, [facility] [place] [facility] [address] [id number] [place] [address] Apr, [facility] [place] [facility] [address] [id number] [place] [address] Apr, [facility] [place] [facility] [address] [id number] [place] [address] Apr, [facility] [place] [facility] [address] [id number] [place] [address] Apr, [facility] [place] [facility] [address] [id number] [place] [address] Apr, [facility] [place] [facility] [address] [id number] [place] [address] Apr, [facility] [place] [facility] [address] [id number] [place] [address] Apr, [facility] [place] [facility] [address] [id number] [place] [address] Apr, [facility] [place] [facility] [address] [id number] [place] [address] Mar, [facility] [place] [facility] [address] [id number] [place] [address] Mar, [facility] [place] [facility] [address] [id number] [place] [address] Mar, [facility] [place] [facility] [address] [id number] [place] [address] Mar, [facility] [place] [facility] [address] [id number] [place] [address] Mar, [facility] [place] [facility] [address] [id number] [place] [address] Mar, [facility] [place] [facility] [address] [id number] [place] [address] Mar, [facility] [place] [facility] [address] [id number] [place] [address] Mar, [facility] [place] [facility] [address] [id number] [place] [address] Mar, [facility] [place] [facility] [address] [id number] [place] [address] Mar, [facility] [place] [facility] [address] [id number] [place] [address] Mar, [facility] [place] [facility] [address] [id number] [place] [address] Feb, [facility] [place] [facility] [address] [id number] [place] [address] Feb, [facility] [place] [facility] [address] [id number] [place] [address] Feb, [facility] [place] [facility] [address] [id number] [place] [address] Feb, [facility] [place] [facility] [address] [id number] [place] [address] Feb, [facility] [place] [facility] [address] [id number] [place] [address] Feb, [facility] [place] [facility] [address] [id number] [place] [address] Feb, [facility] [place] [facility] [address] [id number] [place] [address] Feb, [facility] [place] [facility] [address] [id number] [place] [address] Feb, [facility] [place] [facility] [address] [id number] [place] [address] Feb, [facility] [place] [facility] [address] [id number] [place] [address] January, [facility] [place] [facility] [address] [id number] [place] [address] January, [facility] [place] [facility] [address] [id number] [place] [address] January, [facility] [place] [facility] [address] [id number] [place] [address] January, [facility] [place] [facility] [address] [id number] [place] [address] January, [facility] [place] [facility] [address] [id number] [place] [address] January, [facility] [address] [id number] [place] [address] January, [facility] [place] [facility] [address] [id number] [place] [address] January, [facility] [place] [facility] [address] [id number] [place] [address] January, [facility] [place] [facility] [address] [id number] [place] [address] January, [facility] [place] [facility] [address] [id number] [place] [address] January, [facility] [place] [facility] [address] [id number] [place] [address] January, [facility] [place] [facility] [address] [id number] [place] [address] January, [facility] [place] [facility] [address] [id number] [place] [address] January, [facility] [place] [facility] [address] [id number] [place] [address] January, [facility] [place] [facility] [address] [id number] [place] [address] January, [facility] [place] [facility] [address] [id number] [place] [address] Dec, [facility] [place] [facility] [address] [id number] [place] [address] Dec, [facility] [place] [facility] [address] [id number] [place] [address] Dec, [facility] [place] [facility] [address] [id number] [place] [address] Dec, [facility] [place] [facility] [address] [id number] [place] [address] Dec, [facility] [place] [facility] [address] [id number] [place] [address] Dec, [facility] [place] [facility] [address] [id number] [place] [address] Dec, [facility] [place] [facility] [address] [id number] [place] [address] Dec, [facility] [place] [facility] [address] [id number] [place] [address] Dec, [facility] [place] [facility] [address] [id number] [place] [address] Dec, [facility] [place] [facility] [address] [id number] [place] [address] Nov, [facility] [place] [facility] [address] [id number] [place] [address] Nov, [facility] [place] [facility] [address] [id number] [place] [address] Oct, [facility] [place] [facility] [address] [id number] [place] [address] Oct, [facility] [place] [facility] [address] [id number] [place] [address] Oct, [facility] [place] [facility] [address] [id number] [place] [address] Sep, [facility] [place] [facility] [address] [id number] [place] [address] Sep, [facility] [place] [facility] [address] [id number] [place] [address] Sep, [facility] [place] [facility] [address] [id number] [place] [address] Sep, [facility] [place] [facility] [address] [id number] [place] [address] Sep, [facility] [place] [facility] [address] [id number] [place] [address] Sep, [facility] [address] [id number] [place] [address] Sep, [facility] [place] [facility] [address] [id number] [place] [address] Sep, [facility] [place] [facility] [address] [id number] [place] [address] Sep, [facility] [place] [facility] [address] [id number] [place] [address] Sep, [facility] [place] [facility] [address] [id number] [place] [address] Sep, [facility] [place] [facility] [address] [id number] [place] [address] Sep, [facility] [place] [facility] [address] [id number] [place] [address] Aug, [facility] [place] [facility] [address] [id number], [place] [address] Aug, [facility] [place] [facility] [address] [id number], [place] [address] Aug, [facility] [place] [facility] [address] [id number], [place] [address] Aug, [facility] [place] [facility] [address] [id number], [place] [address] Jul, [facility] [place] [facility] [address] [id number], [place] [address] Jul, [facility] [place] [facility] [address] [id number], [place] [address] Jun, [facility] [place] [facility] [address] [id number], [place] [address] Jun, [facility] [place] [facility] [address] [id number], [place] [address] Jun, [facility] [place] [facility] [address] [id number] [place] [address] Jun, [facility] [place] [facility] [address] [id number] [place] [address] Jun, [facility] [place] [facility] [address] [id number] [place] [address] Jun, [facility] [place] [facility] [address] [id number] [place] [address] Jun, [facility] [place] [facility] [address] [id number] [place] [address] 04 Jun, 2013 [facility] [place] [facility] [address] [id number] [place] [address] 24 May, 2013 [facility] [place] [facility] [address] [id number] [place] [address] 23 May, 2012 [facility] [place] [facility] [address] [id number] [place] [address] 18 May, 2012 [facility] [place] [facility] [address] [id number] [place] [address] 13 May, 2012 [facility] [place] [facility] [address] [id number] [place] [address] 11 May, 2012 [facility] [place] [facility] [address] [id number] [place] [address] 06 May, 2012 [facility] [place] [facility] [address] [id number] [place] [address] 03 May, 2012 [facility] [place] [facility] [address] [id number] [place] [address] 30 Apr, 2013 [facility] [place] [facility] [address] [id number] [place] [address] Apr, [facility] [place] [facility] [address] [id number] [place] [address] Apr, [facility] [place] [facility] [address] [id number] [place] [address] Apr, [facility] [place] [facility] [address] [id number] [place] [address] Apr, [facility] [place] [facility] [address] [id number] [place] [address] Apr, [facility] [place] [facility] [address] [id number] [place] [address] Apr, [facility] [place] [facility] [address] [id number] [place] [address] Mar, [facility] [address] [id number] [place] [address] Mar, [facility] [place] [facility] [address] [id number] [place] [address] Mar, [facility] [address] [id number] [place] [address] Mar, [facility] [address] [id number] [place] [address] Mar, [facility] [address] [id number] [place] [address] Mar, [facility] [place] [facility] [address] [id number] [place] [address] Mar, [facility] [place] [facility] [address] [id number] [place] [address] Mar, [facility] [place] [facility] [address] [id number] [place] [address] Feb, [facility] [place] [facility] [address] [id number] [place] [address] Feb, [facility] [place] [facility] [address] [id number] [place] [address] Feb, [facility] [place] [facility] [address] [id number] [place] [address] January, [facility] [place] [facility] [address] [id number] [place] [address] January, [facility] [address] [id number] [place] [address] January, [facility] [address] [id number] [place] [address] January, [facility] [address] [id number] [place] [address] January, [facility] [address] [id number] [place] [address] January, [facility] [address] [id number] [place] [address] January, [facility] [address] [id number] [place] [address] January, [facility] [address] [id number] [place] [address] Dec, [facility] [address] [id number] [place] [address] Dec, [facility] [address] [id number] [place] [address] Dec, [facility] [address] [id number] [place] [address] Dec, [facility] [address] [id number] [place] [address] Dec, [facility] [address] [id number] [place] [address] Nov, [facility] [place] [facility] [address] [id number] [place] [address] Nov, [facility] [place] [facility] [address] [id number] [place] [address] Nov, [facility] [place] [facility] [address] [id number] [place] [address] 18 Nov, 2012 [facility] [place] [facility] [address] [id number] [place] [address] 18 Nov, 2012 [facility] [address] [id number] [place] [address] 14 Nov, 2012 [facility] [place] [facility] [address] [id number] [place] [address] Nov, [facility] [address] [id number] [place] [address] Nov, [facility] [place] [facility] [address] [id number] [place] [address] Oct, [facility] [place] [facility] [address] [id number] [place] [address] Oct, [facility] [address] [id number] [place] [address] Oct, [facility] [address] [id number] [place] [address] 08 Oct, 2012 [facility] [address] [id number] [place] [address] Oct, [facility] [place] [facility] [address] [facility] [id number] [place] [address] 07 Oct, 2012 [facility] [place] [facility] [address] [facility] [id number] [place] [address] Oct, [facility] [place] [facility] [address] [id number] [address] Oct, [facility] [place] [facility] [address] [id number] [place] [address] Oct, [facility] [place] [facility] [address] [id number] [place] [address] Sep, [facility] [place] [facility] [address] [id number] [place] [address] Sep, [facility] [place] [facility] [address] [id number], [place] [address] Sep, [facility] [address] [id number] [place] [address] Sep, [facility] [place] [facility] [address] [id number] [place] [address] Sep, [facility] [place] [facility] [address] [id number] [place] [address] Sep, [facility] [place] [facility] [address] [id number] [place] [address] Aug, [facility] [place] [facility] [address] [id number] [place] [address] Aug, [facility] [place] [facility] [address] [id number] [place] [address] Aug, [facility] [address] [id number] [place] [address] Aug, [facility] [place] [facility] [address] [id number] [place] [address] Aug, [facility] [place] [facility] [address] [id number] [place] [address] Aug, [facility] [place] [facility] [address] [id number] [place] [address] Aug, [facility] [place] [facility] [address] [id number] [place] [address] Aug, [facility] [place] [facility] [address] [id number] [place] [address] Aug, [facility] [place] [facility] [address] [id number] [place] [address] Jul, [facility] [place] [facility] [address] [id number] [place] [address] Jul, [facility] [place] [facility] [address] [id number] [place] [address] Jul, [facility] [place] [facility] [address] [id number] [address] Jul, [facility] [address] [id number] [address] Nov, [facility] [id number], [place] [address] Sep, [facility] [id number], [place] [address] Aug, [facility] [id number], [place] [address] Aug, [facility] [id number] [place] [address] Aug, [facility] [id number], [place] [address] Jul, IMMUNIZATIONS No Known Immunizations SOCIAL HISTORY Never Assessed REASON FOR VISIT EMR-[facility] [place] PLAN OF CARE VITAL SIGNS MEDICATIONS Unknown [...] 06/27/2016 Hospitalization History Overdosed on Clonazepam #[id number]. [place] 03/2014 Hospitalization History Overdosed on Xanax 07/2012 Hospitalization History Hypostension-medication side effect-[facility] 03/13/16
--- OUTSIDE RECORDS SUMMARY | 2019-02-13 17:46 | XMS REPORT ---
Author Author Migration, Doctor Organization [facility] Address Unknown Phone Unavailable Care Team Providers Care Stock Unloader Name Role Phone Migration, Doctor Unavailable Unavailable PROBLEMS Type Condition ICD9-CM Code ESR48-PE Code Onset Dates Condition Status SNOMED Code Problem Neuropathy G62.9 Active 235795267 Problem Essential hypertension I10 Active 29746733 Problem MCC 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.4 Active 207305697 Problem Abdominal pain R10.9 Active 25326804 Problem Change in bowel habit R19.4 Active 28024533 Problem Coronary atherosclerosis due to lipid rich plaque I25.83 Active 23061952 Problem Type 2 diabetes 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 E11.8 Active 71482064 Problem Impotence N52.9 Active 594794745 Problem Family history of colon cancer Z80.0 Active 968094254 Problem Diabetic neuropathy, painful E11.40 Active 581636655 Problem Arm paresthesia, right R20.2 Active 97371460 Problem Gastroesophageal reflux disease without esophagitis K21.9 Active 492167931 Problem Drug abuse, opioid type F11.10 Active 2495762 Problem COPD exacerbation J44.1 Active 664456258 Problem Obstructive sleep apnea syndrome G47.33 Active 06871938 Problem Diverticulitis K57.92 Active 863381607 Problem Pain of right upper extremity M79.601 Active 559509388 Problem Respiratory bronchiolitis interstitial lung disease J84.115 Active 507121683 Problem Hypoxia R09.02 Active 757573328 Problem Interstitial lung disease J84.9 Active 851477256 ALLERGIES No Information ENCOUNTERS Encounter Location Date Diagnosis [facility] [address] [facility] [id number] [address] Aug, [facility] [address] [id number] [address] Aug, Diabetic neuropathy, painful E11.40 ; Interstitial lung disease J84.9 ; Chronic cough R05 ; Type 2 diabetes 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 E11.8 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 [facility] [address] [id number] [address] Jul, [facility] [id number] [place] [address] Jul, [facility] [id number] [place] [address] Jul, Diabetic neuropathy, painful E11.40 [place] [id number] [place] [address] Jul, Type 2 diabetes 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 E11.8 [place] [id number] [place] [address] Jun, Diabetic neuropathy, painful E11.40 [place] [id number] [place] [address] Jun, [facility] [id number] [place] [address] Jun, Type 2 diabetes 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 E11.8 ; Other viral agents as the cause of diseases classified elsewhere B97.89 ; Acute upper respiratory infection, unspecified J06.9 ; Acute recurrent maxillary sinusitis J01.01 ; Sore throat J02.9 and Headache R51 [place] [id number] [place] [address] Jun, Right lower quadrant abdominal pain R10.31 and Type 2 diabetes 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 E11.8 [place] [id number] [place] [address] May, Diabetic neuropathy, painful E11.40 [place] [id number] [place] [address] May, COPD exacerbation J44.1 and Type 2 diabetes 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 E11.8 [place] [id number] [place] [address] Apr, Diabetic neuropathy, painful E11.40 [place] [id number] [address] Apr, Diabetic neuropathy, painful E11.40 [facility] [address] [address] Mar, Bronchitis J40 [facility] [address] [address] January, Type 2 diabetes 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 E11.8 ; Diabetic neuropathy, painful E11.40 ; Impotence N52.9 ; Coronary atherosclerosis due to lipid rich plaque I25.83 ; MCC 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.4 ; Interstitial lung disease J84.9 ; Hypoxia R09.02 ; Essential hypertension I10 ; Gastroesophageal reflux disease without esophagitis K21.9 ; Left upper arm pain M79.622 and Cervical spinal stenosis M48.02 [facility] [place] [address] [address] January, Viral gastroenteritis A08.4 [place] [address] [address] Dec, Diabetic neuropathy, painful E11.40 [facility] [address] [id number] Oct, [facility] [address] [address] Oct, Acute right-sided weakness M62.89 and Slurring of speech R47.81 [place] [address] [address] Sep, Type 2 diabetes 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 E11.8 ; Diabetic neuropathy, painful E11.40 ; Impotence N52.9 ; Coronary atherosclerosis due to lipid rich plaque I25.83 ; MCC 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.4 ; Interstitial lung disease J84.9 ; Hypoxia R09.02 ; Essential hypertension I10 and Gastroesophageal reflux disease without esophagitis K21.9 [facility] [id number] [place] [address] Sep, Bronchitis J40 [facility] [id number] [place] [address] Aug, Gastroenteritis and colitis, viral A08.4 [facility] [id number] [place] [address] Aug, [facility] [address] [address] Jun, Type 2 diabetes 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 E11.8 ; Diabetic neuropathy, painful E11.40 ; Impotence N52.9 ; Coronary atherosclerosis due to lipid rich plaque I25.83 ; MCC 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.4 ; Interstitial lung disease J84.9 ; Hypoxia R09.02 and Essential hypertension I10 [facility] [address] [address] 30 May, 2016 Bronchitis J40 [facility] [address] [address] 29 May, 2016 [facility] [id number] [place] [address] 20 May, 2016 Pain of right upper extremity M79.601 [facility] [id number] [place] [address] May, [facility] [id number] [place] [address] 15 May, 2016 [facility] [address] [address] 07 May, 2016 Right hand pain M79.641 [facility] [id number] [place] [address] Apr, [facility] [address] [address] Apr, [facility] [id number] [place] [address] Mar, [facility] [address] [address] Mar, Essential hypertension I10 [place] [id number] [place] [address] Feb, [place] [id number] [place] [address] Feb, Interstitial lung disease J84.9 and Bronchitis J40 [place] [id number] [place] [address] Feb, [place] [id number] [place] [address] Feb, Type 2 diabetes 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 E11.8 ; Impotence N52.9 ; Coronary atherosclerosis due to lipid rich plaque I25.83 ; MCC 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.4 and Diabetic neuropathy, painful E11.40 [place] [id number] [place] [address] January, [place] [id number] [place] [address] January, Arm paresthesia, right R20.2 and Pain of right upper extremity M79.601 [place] [id number] [place] [address] Dec, Lumbar strain S39.012A [place] [id number] [place] [address] Nov, Diabetic neuropathy, painful E11.40 ; Respiratory bronchiolitis interstitial lung disease J84.115 ; Pain of right upper extremity M79.601 and Arm paresthesia, right R20.2 [place] [id number] [place] [address] Nov, Diabetic neuropathy, painful E11.40 [place] [id number] [place] [address] Sep, Type 2 diabetes 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 E11.8 ; Impotence N52.9 ; Coronary atherosclerosis due to lipid rich plaque I25.83 ; MCC 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.4 ; Diabetic neuropathy, painful E11.40 ; Chest pain R07.9 and Restless leg G25.81 [place] [id number] [place] [address] Sep, [place] [id number] [place] [address] Jul, COPD (chronic obstructive pulmonary disease) with acute bronchitis J44.0 [place] [address] [address] Jun, Abdominal pain R10.9 ; Family history of colon cancer Z80.0 and Diverticulitis K57.92 [place] [id number] [place] [address] Jun, Abdominal pain R10.9 and Diverticulitis K57.92 [place] [address] [address] Apr, Diabetes with other specified manifestations, type II or unspecified type, not stated as uncontrolled 250.80 ; Coronary atherosclerosis of unspecified type of vessel, comanche or graft 414.00 ; Unspecified essential hypertension 401.9 ; Impotence of organic origin 607.84 ; Sleep apnea 780.57 and Interstitial lung disease [address] [place] [id number] [place] [address] Dec, [place] [id number] [place] [address] Dec, [place] [id number] [place] [address] Nov, [place] [address] [address] Nov, [place] [id number] [place] [address] Nov, [place] [address] [address] Nov, [facility] [place] [facility] [address] [id number] [place] [address] Nov, [facility] [place] [facility] [address] [id number] [place] [address] Nov, [facility] [place] [facility] [address] [facility] [id number] [place] [address] Nov, [facility] [place] [facility] [address] [id number] [place] [address] Nov, [facility] [place] [facility] [address] [id number] [place] [address] Nov, [facility] [place] [facility] [address] [id number] [place] [address] Nov, [facility] [place] [facility] [address] [facility] [id number] [place] [address] Oct, 2014 [facility] [place] [facility] [address] [facility] [id number] [place] [address] Oct, 2014 [facility] [place] [facility] [address] [facility] [id number] [place] [address] Oct, 2014 [facility] [place] [facility] [address] [facility] [id number] [place] [address] Oct, 2014 [facility] [place] [facility] [address] [facility] [id number] [place] [address] Oct, 2014 [facility] [place] [facility] [address] [facility] [id number] [address] Oct, 2014 [facility] [place] [facility] [address] [facility] [id number] [place] [address] Oct, 2014 [facility] [place] [facility] [address] [facility] [id number] [place] [address] Oct, 2014 [facility] [place] [facility] [address] [facility] [id number] [place] [address] Oct, 2014 [facility] [place] [facility] [address] [id number] [place] [address] Oct, 2014 [facility] [place] [facility] [address] [id number] [place] [address] Oct, 2014 [facility] [place] [facility] [address] [id number] [place] [address] Jul, [facility] [place] [facility] [address] [id number] [place] [address] Jul, [facility] [place] [facility] [address] [id number] [place] [address] Jun, [facility] [place] [facility] [address] [id number] [place] [address] Jun, [facility] [place] [facility] [address] [id number] [place] [address] Jun, [facility] [place] [facility] [address] [id number] [place] [address] 17 Jun, 2014 [facility] [place] [facility] [address] [id number] [place] [address] 15 Jun, 2014 [facility] [place] [facility] [address] [id number] [place] [address] 15 Jun, 2014 [facility] [place] [facility] [address] [id number] [place] [address] 14 Jun, 2014 [facility] [place] [facility] [address] [id number] [place] [address] 14 Jun, 2014 [facility] [place] [facility] [address] [id number] [place] [address] 13 Jun, 2014 [facility] [place] [facility] [address] [id number] [place] [address] Jun, [facility] [place] [facility] [address] [id number] [place] [address] 08 Jun, 2014 [facility] [place] [facility] [address] [id number] [place] [address] Jun, [facility] [place] [facility] [address] [id number] [place] [address] Jun, [facility] [place] [facility] [address] [id number] [place] [address] Jun, [facility] [place] [facility] [address] [id number] [place] [address] 30 May, 2013 [facility] [place] [facility] [address] [id number] [place] [address] 30 May, 2013 [facility] [place] [facility] [address] [id number] [place] [address] May, [facility] [place] [facility] [address] [id number] [place] [address] May, [facility] [place] [facility] [address] [id number] [place] [address] 05 May, 2014 [facility] [place] [facility] [address] [id number] [place] [address] 05 May, 2014 [facility] [place] [facility] [address] [id number] [place] [address] Apr, [facility] [place] [facility] [address] [id number] [place] [address] Apr, [facility] [place] [facility] [address] [id number] [place] [address] Apr, [facility] [place] [facility] [address] [id number] [place] [address] Apr, [facility] [place] [facility] [address] [id number] [place] [address] Apr, [facility] [place] [facility] [address] [id number] [place] [address] Apr, [facility] [place] [facility] [address] [id number] [place] [address] Apr, [facility] [place] [facility] [address] [id number] [place] [address] Apr, [facility] [place] [facility] [address] [id number] [place] [address] Apr, [facility] [place] [facility] [address] [id number] [place] [address] Apr, [facility] [place] [facility] [address] [id number] [place] [address] Apr, [facility] [place] [facility] [address] [id number] [place] [address] Apr, [facility] [place] [facility] [address] [id number] [place] [address] Mar, [facility] [place] [facility] [address] [id number] [place] [address] Mar, [facility] [place] [facility] [address] [id number] [place] [address] Mar, [facility] [place] [facility] [address] [id number] [place] [address] Mar, [facility] [place] [facility] [address] [id number] [place] [address] Mar, [facility] [place] [facility] [address] [id number] [place] [address] Mar, [facility] [place] [facility] [address] [id number] [place] [address] Mar, [facility] [place] [facility] [address] [id number] [place] [address] Mar, [facility] [place] [facility] [address] [id number] [place] [address] Mar, [facility] [place] [facility] [address] [id number] [place] [address] Mar, [facility] [place] [facility] [address] [id number] [place] [address] Mar, [facility] [place] [facility] [address] [id number] [place] [address] Feb, [facility] [place] [facility] [address] [id number] [place] [address] Feb, [facility] [place] [facility] [address] [id number] [place] [address] Feb, [facility] [place] [facility] [address] [id number] [place] [address] Feb, [facility] [place] [facility] [address] [id number] [place] [address] Feb, [facility] [place] [facility] [address] [id number] [place] [address] Feb, [facility] [place] [facility] [address] [id number] [place] [address] Feb, [facility] [place] [facility] [address] [id number] [place] [address] Feb, [facility] [place] [facility] [address] [id number] [place] [address] Feb, [facility] [place] [facility] [address] [id number] [place] [address] Feb, [facility] [place] [facility] [address] [id number] [place] [address] January, [facility] [place] [facility] [address] [id number] [place] [address] January, [facility] [place] [facility] [address] [id number] [place] [address] January, [facility] [place] [facility] [address] [id number] [place] [address] January, [facility] [place] [facility] [address] [id number] [place] [address] January, [facility] [place] [facility] [address] [id number] [place] [address] January, [facility] [address] [id number] [place] [address] January, [facility] [place] [facility] [address] [id number] [place] [address] January, [facility] [place] [facility] [address] [id number] [place] [address] January, [facility] [place] [facility] [address] [id number] [place] [address] January, [facility] [place] [facility] [address] [id number] [place] [address] January, [facility] [place] [facility] [address] [id number] [place] [address] January, [facility] [place] [facility] [address] [id number] [place] [address] January, [facility] [place] [facility] [address] [id number] [place] [address] January, [facility] [place] [facility] [address] [id number] [place] [address] January, [facility] [place] [facility] [address] [id number] [place] [address] January, [facility] [place] [facility] [address] [id number] [place] [address] Dec, [facility] [place] [facility] [address] [id number] [place] [address] Dec, [facility] [place] [facility] [address] [id number] [place] [address] Dec, [facility] [place] [facility] [address] [id number] [place] [address] Dec, [facility] [place] [facility] [address] [id number] [place] [address] Dec, [facility] [place] [facility] [address] [id number] [place] [address] Dec, [facility] [place] [facility] [address] [id number] [place] [address] Dec, [facility] [place] [facility] [address] [id number] [place] [address] Dec, [facility] [place] [facility] [address] [id number] [place] [address] Dec, [facility] [place] [facility] [address] [id number] [place] [address] Dec, [facility] [place] [facility] [address] [id number] [place] [address] Nov, [facility] [place] [facility] [address] [id number] [place] [address] Nov, [facility] [place] [facility] [address] [id number] [place] [address] Oct, [facility] [place] [facility] [address] [id number] [place] [address] Oct, [facility] [place] [facility] [address] [id number] [place] [address] Oct, [facility] [place] [facility] [address] [id number] [place] [address] Sep, [facility] [place] [facility] [address] [id number] [place] [address] Sep, [facility] [place] [facility] [address] [id number] [place] [address] Sep, [facility] [place] [facility] [address] [id number] [place] [address] Sep, [facility] [place] [facility] [address] [id number] [place] [address] Sep, [facility] [place] [facility] [address] [id number] [place] [address] Sep, [facility] [address] [id number] [place] [address] Sep, [facility] [place] [facility] [address] [id number] [place] [address] Sep, [facility] [place] [facility] [address] [id number] [place] [address] Sep, [facility] [place] [facility] [address] [id number] [place] [address] Sep, [facility] [place] [facility] [address] [id number] [place] [address] Sep, [facility] [place] [facility] [address] [id number] [place] [address] Sep, [facility] [place] [facility] [address] [id number] [place] [address] Aug, [facility] [place] [facility] [address] [id number] [place] [address] Aug, [facility] [place] [facility] [address] [id number] [place] [address] Aug, [facility] [place] [facility] [address] [id number] [place] [address] Aug, [facility] [place] [facility] [address] [id number] [place] [address] Jul, [facility] [place] [facility] [address] [id number] [place] [address] Jul, [facility] [place] [facility] [address] [id number] [place] [address] Jun, [facility] [place] [facility] [address] [id number] [place] [address] Jun, [facility] [place] [facility] [address] [id number] [place] [address] Jun, [facility] [place] [facility] [address] [id number] [place] [address] Jun, [facility] [place] [facility] [address] [id number] [place] [address] Jun, [facility] [place] [facility] [address] [id number] [place] [address] Jun, [facility] [place] [facility] [address] [id number] [place] [address] Jun, [facility] [place] [facility] [address] [id number] [place] [address] 04 Jun, 2013 [facility] [place] [facility] [address] [id number] [place] [address] 24 May, 2013 [facility] [place] [facility] [address] [id number] [place] [address] 23 May, 2012 [facility] [place] [facility] [address] [id number] [place] [address] 18 May, 2012 [facility] [place] [facility] [address] [id number] [place] [address] 13 May, 2012 [facility] [place] [facility] [address] [id number] [place] [address] 11 May, 2012 [facility] [place] [facility] [address] [id number] [place] [address] 06 May, 2012 [facility] [place] [facility] [address] [id number] [place] [address] 03 May, 2012 [facility] [place] [facility] [address] [id number] [place] [address] 30 Apr, 2013 [facility] [place] [facility] [address] [id number] [place] [address] Apr, [facility] [place] [facility] [address] [id number] [place] [address] Apr, [facility] [place] [facility] [address] [id number] [place] [address] Apr, [facility] [place] [facility] [address] [id number] [place] [address] Apr, [facility] [place] [facility] [address] [id number] [place] [address] Apr, [facility] [place] [facility] [address] [id number] [place] [address] Apr, [facility] [place] [facility] [address] [id number] [place] [address] Mar, [facility] [address] [id number] [place] [address] Mar, [facility] [place] [facility] [address] [id number] [place] [address] Mar, [facility] [address] [id number] [place] [address] Mar, [facility] [address] [id number] [place] [address] Mar, [facility] [address] [id number] [place] [address] Mar, [facility] [place] [facility] [address] [id number] [place] [address] Mar, [facility] [place] [facility] [address] [id number] [place] [address] Mar, [facility] [place] [facility] [address] [id number] [place] [address] Feb, [facility] [place] [facility] [address] [id number] [place] [address] Feb, [facility] [place] [facility] [address] [id number] [place] [address] Feb, [facility] [place] [facility] [address] [id number] [place] [address] January, [facility] [place] [facility] [address] [id number] [place] [address] January, [facility] [address] [id number] [place] [address] January, [facility] [address] [id number] [place] [address] January, [facility] [address] [id number] [place] [address] January, [facility] [address] [id number] [place] [address] January, [facility] [address] [id number] [place] [address] January, [facility] [address] [id number] [place] [address] January, [facility] [address] [id number] [place] [address] Dec, [facility] [address] [id number] [place] [address] Dec, [facility] [address] [id number] [place] [address] Dec, [facility] [address] [id number] [place] [address] Dec, [facility] [address] [id number] [place] [address] Dec, [facility] [address] [id number] [place] [address] Nov, [facility] [place] [facility] [address] [id number] [place] [address] Nov, [facility] [place] [facility] [address] [id number] [place] [address] Nov, [facility] [place] [facility] [address] [id number] [place] [address] 18 Nov, 2012 [facility] [place] [facility] [address] [id number] [place] [address] 18 Nov, 2012 [facility] [address] [id number] [place] [address] 14 Nov, 2012 [facility] [place] [facility] [address] [id number] [place] [address] Nov, [facility] [address] [id number] [place] [address] Nov, [facility] [place] [facility] [address] [id number] [place] [address] Oct, [facility] [place] [facility] [address] [id number] [place] [address] Oct, [facility] [address] [id number] [place] [address] Oct, [facility] [address] [id number] [place] [address] 08 Oct, 2012 [facility] [address] [id number] [place] [address] Oct, [facility] [place] [facility] [address] [facility] [id number] [place] [address] 07 Oct, 2012 [facility] [place] [facility] [address] [facility] [id number] [place] [address] Oct, [facility] [place] [facility] [address] [id number] [address] Oct, [facility] [place] [facility] [address] [id number] [place] [address] Oct, [facility] [place] [facility] [address] [id number] [place] [address] Sep, [facility] [place] [facility] [address] [id number] [place] [address] Sep, [facility] [place] [facility] [address] [id number] [place] [address] Sep, [facility] [address] [id number] [place] [address] Sep, [facility] [place] [facility] [address] [id number] [place] [address] Sep, [facility] [place] [facility] [address] [id number] [place] [address] Sep, [facility] [place] [facility] [address] [id number] [place] [address] Aug, [facility] [place] [facility] [address] [id number] [place] [address] Aug, [facility] [place] [facility] [address] [id number] [place] [address] Aug, [facility] [address] [id number] [place] [address] Aug, [facility] [place] [facility] [address] [id number] [place] [address] Aug, [facility] [place] [facility] [address] [id number] [place] [address] Aug, [facility] [place] [facility] [address] [id number] [place] [address] Aug, [facility] [place] [facility] [address] [id number] [place] [address] Aug, [facility] [place] [facility] [address] [id number] [place] [address] Aug, [facility] [place] [facility] [address] [id number] [place] [address] Jul, [facility] [place] [facility] [address] [id number] [place] [address] Jul, [facility] [place] [facility] [address] [id number] [place] [address] Jul, [facility] [place] [facility] [address] [id number] [address] Jul, [facility] [address] [id number] [address] Nov, [facility] [id number] [address] Sep, [facility] [id number] [address] Aug, [facility] [id number] [address] Aug, [facility] [id number] [place] [address] Aug, [facility] [id number] [address] Jul, IMMUNIZATIONS No Known Immunizations SOCIAL HISTORY Never Assessed REASON FOR VISIT EMR-[facility] PLAN OF CARE VITAL SIGNS MEDICATIONS Unknown [...] 06/27/2016 Hospitalization History Overdosed on Clonazepam #35. [place] 03/2014 Hospitalization History Overdosed on Xanax 07/2012 Hospitalization History Hypostension-medication side effect-[facility] 03/13/16
--- OUTSIDE RECORDS SUMMARY | 2019-02-13 17:47 | XMS REPORT ---
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 Name Role Phone Migration, Doctor Unavailable Unavailable PROBLEMS Type Condition ICD9-CM Code SIQ31-LR Code Onset Dates Condition Status SNOMED Code Problem Neuropathy G62.9 Active 509131972 Problem Essential hypertension I10 Active 80982763 Problem group home 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.4 Active 998282096 Problem Abdominal pain R10.9 Active 40458959 Problem Change in bowel habit R19.4 Active 97148391 Problem Coronary atherosclerosis due to lipid rich plaque I25.83 Active 18871515 Problem Type 2 diabetes 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 E11.8 Active 76219426 Problem Impotence N52.9 Active 854318608 Problem Family history of colon cancer Z80.0 Active 868618396 Problem Diabetic neuropathy, painful E11.40 Active 861221239 Problem Arm paresthesia, right R20.2 Active 19339511 Problem Gastroesophageal reflux disease without esophagitis K21.9 Active 121729154 Problem Drug abuse, opioid type F11.10 Active 3902803 Problem COPD exacerbation J44.1 Active 725071135 Problem Obstructive sleep apnea syndrome G47.33 Active 73143991 Problem Diverticulitis K57.92 Active 440356663 Problem Pain of right upper extremity M79.601 Active 958394637 Problem Respiratory bronchiolitis interstitial lung disease J84.115 Active 287248839 Problem Hypoxia R09.02 Active 260034528 Problem Interstitial lung disease J84.9 Active 290608874 ALLERGIES No Information ENCOUNTERS Encounter Location Date Diagnosis [facility] [address] [facility] [id number] [address] Aug, [facility] [address] [id number] [address] Aug, Diabetic neuropathy, painful E11.40 ; Interstitial lung disease J84.9 ; Chronic cough R05 ; Type 2 diabetes 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 E11.8 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 [facility] [address] [id number] [address] Jul, [facility] [id number] [place] [address] Jul, [facility] [id number] [place] [address] Jul, Diabetic neuropathy, painful E11.40 [place] [id number] [place] [address] Jul, Type 2 diabetes 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 E11.8 [place] [id number] [place] [address] Jun, Diabetic neuropathy, painful E11.40 [place] [id number] [place] [address] Jun, [facility] [id number] [place] [address] Jun, Type 2 diabetes 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 E11.8 ; Other viral agents as the cause of diseases classified elsewhere B97.89 ; Acute upper respiratory infection, unspecified J06.9 ; Acute recurrent maxillary sinusitis J01.01 ; Sore throat J02.9 and Headache R51 [place] [id number] [place] [address] Jun, Right lower quadrant abdominal pain R10.31 and Type 2 diabetes 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 E11.8 [place] [id number] [place] [address] May, Diabetic neuropathy, painful E11.40 [place] [id number] [place] [address] May, COPD exacerbation J44.1 and Type 2 diabetes 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 E11.8 [place] [id number] [place] [address] Apr, Diabetic neuropathy, painful E11.40 [place] [id number] [place] [address] Apr, Diabetic neuropathy, painful E11.40 [facility] [address] [address] Mar, Bronchitis J40 [facility] [address] [address] January, Type 2 diabetes 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 E11.8 ; Diabetic neuropathy, painful E11.40 ; Impotence N52.9 ; Coronary atherosclerosis due to lipid rich plaque I25.83 ; group home 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.4 ; Interstitial lung disease J84.9 ; Hypoxia R09.02 ; Essential hypertension I10 ; Gastroesophageal reflux disease without esophagitis K21.9 ; Left upper arm pain M79.622 and Cervical spinal stenosis M48.02 [facility] [place] [address] [address] January, Viral gastroenteritis A08.4 [place] [address] [address] Dec, Diabetic neuropathy, painful E11.40 [facility] [place] [facility] [address] [id number] Oct, [facility] [address] [address] Oct, Acute right-sided weakness M62.89 and Slurring of speech R47.81 [place] [address] [address] Sep, Type 2 diabetes 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 E11.8 ; Diabetic neuropathy, painful E11.40 ; Impotence N52.9 ; Coronary atherosclerosis due to lipid rich plaque I25.83 ; group home 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.4 ; Interstitial lung disease J84.9 ; Hypoxia R09.02 ; Essential hypertension I10 and Gastroesophageal reflux disease without esophagitis K21.9 [facility] [id number] [place] [address] Sep, Bronchitis J40 [facility] [id number] [place] [address] Aug, Gastroenteritis and colitis, viral A08.4 [facility] [id number] [place] [address] Aug, [facility] [address] [address] Jun, Type 2 diabetes 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 E11.8 ; Diabetic neuropathy, painful E11.40 ; Impotence N52.9 ; Coronary atherosclerosis due to lipid rich plaque I25.83 ; group home 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.4 ; Interstitial lung disease J84.9 ; Hypoxia R09.02 and Essential hypertension I10 [facility] [address] [address] 30 May, 2016 Bronchitis J40 [facility] [address] [address] 29 May, 2016 [facility] [id number] [place] [address] 20 May, 2016 Pain of right upper extremity M79.601 [facility] [id number] [place] [address] May, [facility] [id number] [place] [address] 15 May, 2016 [facility] [address] [address] 07 May, 2016 Right hand pain M79.641 [facility] [id number] [place] [address] Apr, [facility] [address] [address] Apr, [facility] [id number] [place] [address] Mar, [facility] [address] [address] Mar, Essential hypertension I10 [place] [id number] [place] [address] Feb, [place] [id number] [place] [address] Feb, Interstitial lung disease J84.9 and Bronchitis J40 [place] [id number] [place] [address] Feb, [place] [id number] [place] [address] Feb, Type 2 diabetes 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 E11.8 ; Impotence N52.9 ; Coronary atherosclerosis due to lipid rich plaque I25.83 ; group home 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.4 and Diabetic neuropathy, painful E11.40 [place] [id number] [place] [address] January, [place] [id number] [place] [address] January, Arm paresthesia, right R20.2 and Pain of right upper extremity M79.601 [place] [id number] [place] [address] Dec, Lumbar strain S39.012A [place] [id number] [place] [address] Nov, Diabetic neuropathy, painful E11.40 ; Respiratory bronchiolitis interstitial lung disease J84.115 ; Pain of right upper extremity M79.601 and Arm paresthesia, right R20.2 [place] [id number] [place] [address] Nov, Diabetic neuropathy, painful E11.40 [place] [id number] [place] [address] Sep, Type 2 diabetes 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 E11.8 ; Impotence N52.9 ; Coronary atherosclerosis due to lipid rich plaque I25.83 ; group home 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.4 ; Diabetic neuropathy, painful E11.40 ; Chest pain R07.9 and Restless leg G25.81 [place] [id number] [place] [address] Sep, [place] [id number] [place] [address] Jul, COPD (chronic obstructive pulmonary disease) with acute bronchitis J44.0 [place] [address] [address] Jun, Abdominal pain R10.9 ; Family history of colon cancer Z80.0 and Diverticulitis K57.92 [place] [id number] [place] [address] Jun, Abdominal pain R10.9 and Diverticulitis K57.92 [place] [address] [address] Apr, Diabetes with other specified manifestations, type II or unspecified type, not stated as uncontrolled 250.80 ; Coronary atherosclerosis of unspecified type of vessel, [place] or graft 414.00 ; Unspecified essential hypertension 401.9 ; Impotence of organic origin 607.84 ; Sleep apnea 780.57 and Interstitial lung disease [address] [place] [id number] [place] [address] Dec, [place] [id number] [place] [address] Dec, [place] [id number] [place] [address] Nov, [place] [address] [address] Nov, [place] [id number] [place] [address] Nov, [place] [address] [address] Nov, [facility] [place] [facility] [address] [id number] [place] [address] Nov, [facility] [place] [facility] [address] [id number] [place] [address] Nov, [facility] [place] [facility] [address] [facility] [id number] [place] [address] Nov, [facility] [place] [facility] [address] [id number] [place] [address] Nov, [facility] [place] [facility] [address] [id number] [place] [address] Nov, [facility] [place] [facility] [address] [id number] [place] [address] Nov, [facility] [place] [facility] [address] [facility] [id number] [place] [address] Oct, 2014 [facility] [place] [facility] [address] [facility] [id number] [place] [address] Oct, 2014 [facility] [place] [facility] [address] [facility] [id number] [place] [address] Oct, 2014 [facility] [place] [facility] [address] [facility] [id number] [place] [address] Oct, 2014 [facility] [place] [facility] [address] [facility] [id number] [place] [address] Oct, 2014 [facility] [place] [facility] [address] [facility] [id number] [address] Oct, 2014 [facility] [place] [facility] [address] [facility] [id number] [place] [address] Oct, 2014 [facility] [place] [facility] [address] [facility] [id number] [place] [address] Oct, 2014 [facility] [place] [facility] [address] [facility] [id number] [place] [address] Oct, 2014 [facility] [place] [facility] [address] [id number] [place] [address] Oct, 2014 [facility] [place] [facility] [address] [id number] [place] [address] Oct, 2014 [facility] [place] [facility] [address] [id number] [place] [address] Jul, [facility] [place] [facility] [address] [id number] [place] [address] Jul, [facility] [place] [facility] [address] [id number] [place] [address] Jun, [facility] [place] [facility] [address] [id number] [place] [address] Jun, [facility] [place] [facility] [address] [id number] [place] [address] Jun, [facility] [place] [facility] [address] [id number] [place] [address] 17 Jun, 2014 [facility] [place] [facility] [address] [id number] [place] [address] 15 Jun, 2014 [facility] [place] [facility] [address] [id number] [place] [address] 15 Jun, 2014 [facility] [place] [facility] [address] [id number] [place] [address] 14 Jun, 2014 [facility] [place] [facility] [address] [id number] [place] [address] 14 Jun, 2014 [facility] [place] [facility] [address] [id number] [place] [address] 13 Jun, 2014 [facility] [place] [facility] [address] [id number] [place] [address] Jun, [facility] [place] [facility] [address] [id number] [place] [address] 08 Jun, 2014 [facility] [place] [facility] [address] [id number] [place] [address] Jun, [facility] [place] [facility] [address] [id number] [place] [address] Jun, [facility] [place] [facility] [address] [id number] [place] [address] Jun, [facility] [place] [facility] [address] [id number] [place] [address] 30 May, 2013 [facility] [place] [facility] [address] [id number] [place] [address] 30 May, 2013 [facility] [place] [facility] [address] [id number] [place] [address] May, [facility] [place] [facility] [address] [id number] [place] [address] May, [facility] [place] [facility] [address] [id number] [place] [address] 05 May, 2014 [facility] [place] [facility] [address] [id number] [place] [address] 05 May, 2014 [facility] [place] [facility] [address] [id number] [place] [address] Apr, [facility] [place] [facility] [address] [id number] [place] [address] Apr, [facility] [place] [facility] [address] [id number] [place] [address] Apr, [facility] [place] [facility] [address] [id number] [place] [address] Apr, [facility] [place] [facility] [address] [id number] [place] [address] Apr, [facility] [place] [facility] [address] [id number] [place] [address] Apr, [facility] [place] [facility] [address] [id number] [place] [address] Apr, [facility] [place] [facility] [address] [id number] [place] [address] Apr, [facility] [place] [facility] [address] [id number] [place] [address] Apr, [facility] [place] [facility] [address] [id number] [place] [address] Apr, [facility] [place] [facility] [address] [id number] [place] [address] Apr, [facility] [place] [facility] [address] [id number] [place] [address] Apr, [facility] [place] [facility] [address] [id number] [place] [address] Mar, [facility] [place] [facility] [address] [id number] [place] [address] Mar, [facility] [place] [facility] [address] [id number] [place] [address] Mar, [facility] [place] [facility] [address] [id number] [place] [address] Mar, [facility] [place] [facility] [address] [id number] [place] [address] Mar, [facility] [place] [facility] [address] [id number] [place] [address] Mar, [facility] [place] [facility] [address] [id number] [place] [address] Mar, [facility] [place] [facility] [address] [id number] [place] [address] Mar, [facility] [place] [facility] [address] [id number] [place] [address] Mar, [facility] [place] [facility] [address] [id number] [place] [address] Mar, [facility] [place] [facility] [address] [id number] [place] [address] Mar, [facility] [place] [facility] [address] [id number] [place] [address] Feb, [facility] [place] [facility] [address] [id number] [place] [address] Feb, [facility] [place] [facility] [address] [id number] [place] [address] Feb, [facility] [place] [facility] [address] [id number] [place] [address] Feb, [facility] [place] [facility] [address] [id number] [place] [address] Feb, [facility] [place] [facility] [address] [id number] [place] [address] Feb, [facility] [place] [facility] [address] [id number] [place] [address] Feb, [facility] [place] [facility] [address] [id number] [place] [address] Feb, [facility] [place] [facility] [address] [id number] [place] [address] Feb, [facility] [place] [facility] [address] [id number] [place] [address] Feb, [facility] [place] [facility] [address] [id number] [place] [address] January, [facility] [place] [facility] [address] [id number] [place] [address] January, [facility] [place] [facility] [address] [id number] [place] [address] January, [facility] [place] [facility] [address] [id number] [place] [address] January, [facility] [place] [facility] [address] [id number] [place] [address] January, [facility] [place] [facility] [address] [id number] [place] [address] January, [facility] [address] [id number] [place] [address] January, [facility] [place] [facility] [address] [id number] [place] [address] January, [facility] [place] [facility] [address] [id number] [place] [address] January, [facility] [place] [facility] [address] [id number] [place] [address] January, [facility] [place] [facility] [address] [id number] [place] [address] January, [facility] [place] [facility] [address] [id number] [place] [address] January, [facility] [place] [facility] [address] [id number] [place] [address] January, [facility] [place] [facility] [address] [id number] [place] [address] January, [facility] [place] [facility] [address] [id number] [place] [address] January, [facility] [place] [facility] [address] [id number] [place] [address] January, [facility] [place] [facility] [address] [id number] [place] [address] Dec, [facility] [place] [facility] [address] [id number] [place] [address] Dec, [facility] [place] [facility] [address] [id number] [place] [address] Dec, [facility] [place] [facility] [address] [id number] [place] [address] Dec, [facility] [place] [facility] [address] [id number] [place] [address] Dec, [facility] [place] [facility] [address] [id number] [place] [address] Dec, [facility] [place] [facility] [address] [id number] [place] [address] Dec, [facility] [place] [facility] [address] [id number] [place] [address] Dec, [facility] [place] [facility] [address] [id number] [place] [address] Dec, [facility] [place] [facility] [address] [id number] [place] [address] Dec, [facility] [place] [facility] [address] [id number] [place] [address] Nov, [facility] [place] [facility] [address] [id number] [place] [address] Nov, [facility] [place] [facility] [address] [id number] [place] [address] Oct, [facility] [place] [facility] [address] [id number] [place] [address] Oct, [facility] [place] [facility] [address] [id number] [place] [address] Oct, [facility] [place] [facility] [address] [id number] [place] [address] Sep, [facility] [place] [facility] [address] [id number] [place] [address] Sep, [facility] [place] [facility] [address] [id number] [place] [address] Sep, [facility] [place] [facility] [address] [id number] [place] [address] Sep, [facility] [place] [facility] [address] [id number] [place] [address] Sep, [facility] [place] [facility] [address] [id number] [place] [address] Sep, [facility] [address] [id number] [place] [address] Sep, [facility] [place] [facility] [address] [id number] [place] [address] Sep, [facility] [place] [facility] [address] [id number] [place] [address] Sep, [facility] [place] [facility] [address] [id number] [place] [address] Sep, [facility] [place] [facility] [address] [id number] [place] [address] Sep, [facility] [place] [facility] [address] [id number] [place] [address] Sep, [facility] [place] [facility] [address] [id number] [place] [address] Aug, [facility] [place] [facility] [address] [id number], [place] [address] Aug, [facility] [place] [facility] [address] [id number], [place] [address] Aug, [facility] [place] [facility] [address] [id number], [place] [address] Aug, [facility] [place] [facility] [address] [id number], [place] [address] Jul, [facility] [place] [facility] [address] [id number], [place] [address] Jul, [facility] [place] [facility] [address] [id number], [place] [address] Jun, [facility] [place] [facility] [address] [id number], [place] [address] Jun, [facility] [place] [facility] [address] [id number], [place] [address] Jun, [facility] [place] [facility] [address] [id number] [place] [address] Jun, [facility] [place] [facility] [address] [id number] [place] [address] Jun, [facility] [place] [facility] [address] [id number] [place] [address] Jun, [facility] [place] [facility] [address] [id number] [place] [address] Jun, [facility] [place] [facility] [address] [id number] [place] [address] 04 Jun, 2013 [facility] [place] [facility] [address] [id number] [place] [address] 24 May, 2013 [facility] [place] [facility] [address] [id number] [place] [address] 23 May, 2012 [facility] [place] [facility] [address] [id number] [place] [address] 18 May, 2012 [facility] [place] [facility] [address] [id number] [place] [address] 13 May, 2012 [facility] [place] [facility] [address] [id number] [place] [address] 11 May, 2012 [facility] [place] [facility] [address] [id number] [place] [address] 06 May, 2012 [facility] [place] [facility] [address] [id number] [place] [address] 03 May, 2012 [facility] [place] [facility] [address] [id number] [place] [address] 30 Apr, 2013 [facility] [place] [facility] [address] [id number] [place] [address] Apr, [facility] [place] [facility] [address] [id number] [place] [address] Apr, [facility] [place] [facility] [address] [id number] [place] [address] Apr, [facility] [place] [facility] [address] [id number] [place] [address] Apr, [facility] [place] [facility] [address] [id number] [place] [address] Apr, [facility] [place] [facility] [address] [id number] [place] [address] Apr, [facility] [place] [facility] [address] [id number] [place] [address] Mar, [facility] [address] [id number] [place] [address] Mar, [facility] [place] [facility] [address] [id number] [place] [address] Mar, [facility] [address] [id number] [place] [address] Mar, [facility] [address] [id number] [place] [address] Mar, [facility] [address] [id number] [place] [address] Mar, [facility] [place] [facility] [address] [id number] [place] [address] Mar, [facility] [place] [facility] [address] [address] [id number] [place] [address] Mar, [facility] [place] [facility] [address] [id number] [place] [address] Feb, [facility] [place] [facility] [address] [id number] [place] [address] Feb, [facility] [place] [facility] [address] [id number] [place] [address] Feb, [facility] [place] [facility] [address] [id number] [place] [address] January, [facility] [place] [facility] [address] [id number] [place] [address] January, [facility] [address] [id number] [place] [address] January, [facility] [address] [id number] [place] [address] January, [facility] [address] [id number] [place] [address] January, [facility] [address] [id number] [place] [address] January, [facility] [address] [id number] [place] [address] January, [facility] [address] [id number] [place] [address] January, [facility] [address] [id number] [place] [address] Dec, [facility] [address] [id number] [place] [address] Dec, [facility] [address] [id number] [place] [address] Dec, [facility] [address] [id number] [place] [address] Dec, [facility] [address] [id number] [place] [address] Dec, [facility] [address] [id number] [place] [address] Nov, [facility] [place] [facility] [address] [id number] [place] [address] Nov, [facility] [place] [facility] [address] [id number] [place] [address] Nov, [facility] [place] [facility] [address] [id number] [place] [address] 18 Nov, 2012 [facility] [place] [facility] [address] [id number] [place] [address] 18 Nov, 2012 [facility] [address] [id number] [place] [address] 14 Nov, 2012 [facility] [place] [facility] [address] [id number] [place] [address] Nov, [facility] [address] [id number] [place] [address] Nov, [facility] [place] [facility] [address] [id number] [place] [address] Oct, [facility] [place] [facility] [address] [id number] [place] [address] Oct, [facility] [address] [id number] [place] [address] Oct, [facility] [address] [id number] [place] [address] 08 Oct, 2012 [facility] [address] [id number] [place] [address] Oct, [facility] [place] [facility] [address] [facility] [id number] [place] [address] 07 Oct, 2012 [facility] [place] [facility] [address] [facility] [id number] [place] [address] Oct, [facility] [place] [facility] [address] [id number] [address] Oct, [facility] [place] [facility] [address] [id number] [place] [address] Oct, [facility] [place] [facility] [address] [id number] [place] [address] Sep, [facility] [place] [facility] [address] [id number] [place] [address] Sep, [facility] [place] [facility] [address] [id number], [place] [address] Sep, [facility] [address] [id number] [place] [address] Sep, [facility] [place] [facility] [address] [id number] [place] [address] Sep, [facility] [place] [facility] [address] [id number] [place] [address] Sep, [facility] [place] [facility] [address] [id number] [place] [address] Aug, [facility] [place] [facility] [address] [id number] [place] [address] Aug, [facility] [place] [facility] [address] [id number] [place] [address] Aug, [facility] [address] [id number] [place] [address] Aug, [facility] [place] [facility] [address] [id number] [place] [address] Aug, [facility] [place] [facility] [address] [id number] [place] [address] Aug, [facility] [place] [facility] [address] [id number] [place] [address] Aug, [facility] [place] [facility] [address] [id number] [place] [address] Aug, [facility] [place] [facility] [address] [id number] [place] [address] Aug, [facility] [place] [facility] [address] [id number] [place] [address] Jul, [facility] [place] [facility] [address] [id number] [place] [address] Jul, [facility] [place] [facility] [address] [id number] [place] [address] Jul, [facility] [place] [facility] [address] [id number], [place] [address] Jul, [facility] [address] [id number], [place] [address] Nov, [facility] [address], [place] [address] Sep, [facility] [address], [place] [address] Aug, [facility] [id number], [place] [address] Aug, [facility] [id number] [place] [address] Aug, [facility] [address], [place] [address] Jul, IMMUNIZATIONS No Known Immunizations SOCIAL HISTORY Never Assessed REASON FOR VISIT EMR-[facility] PLAN OF CARE VITAL SIGNS MEDICATIONS Unknown [...] 06/27/2016 Hospitalization History Overdosed on Clonazepam #35. [place] 03/2014 Hospitalization History Overdosed on Xanax 07/2012 Hospitalization History Hypostension-medication side effect-[facility] 03/13/16
[2019-02-13] MEDS ORDERED: NS IV 1000 ML 1,000 ML IV SCH (18:04)
[2019-02-13] MEDS ORDERED: PREGABALIN 100 MG (LYRICA) CAPSULE PO ONE (18:15)
[2019-02-13] MEDS ORDERED: PIPERACILLIN SODIUM/TAZOBACTAM 4.5 GM in NS (IVPB) 100 ML IV ONE (18:15)
[2019-02-13] MEDS ORDERED: KETOROLAC 30 MG/ML VIAL IVP ONE (18:15)
[2019-02-13] MEDS ORDERED: VANCOMYCIN INJECTION 1,000 MG in NS (IVPB) 250 ML IV ONE (18:15)
--- NOTE | 2019-02-13 18:15 | ED Lower Extremity ---
General Chief Complaint: Skin/Wound Problems Stated Complaint: L FOOT SWELLING AND REDNESS Nursing Triage Note: PT AMB TO ROOM 7, A/OX3 WITH C/O LEFT BIG TOE WOUND. PT HAS BEEN SEEING DR. ARGUELLO WEEKLY SINCE JUNE AND JUST FINISHED A 6-WEEK TREATMENT OF VANCOMYCIN FOR OSTEOMYELITIS IN SAME TOE. PT DRESSED WOUND THIS MORNING AND HAD NO CONCERNS. PER PT, ABOUT 1300 THIS AFTERNOON, PT STARTING HAVING PAINS IN LEFT BIG TOE. AT 1630, PT TOOK DRESSING OFF TO EXAMINE TOE AND NOTICED IT WAS RED, SWOLLEN, AND HAD PURULENT DRAINAGE. PT STATES HE DID NOT RE-PACK WOUND, BUT INSTEAD PLACED DRY DRESSING TO COME OUT TO ED FOR WOUND EXAM. PT IS CURRENTLY ON TETRACYCLINE FOR "SMALL INFECTION" IN LEFT BIG TOE. Nursing Sepsis Screen: Possible Sepsis Risk Source: patient, old records History of Present Illness Date Seen by Provider: February 13, 2019 Time Seen by Provider: 17:55 Initial Comments PT ARRIVES VIA POV PT HAS CHRONIC DIABETIC FOOT ULCER TO LEFT GREAT TOE, WITH OSTEOMYELITIS. HAS BEEN GOING TO WOUND CARE SINCE JUNE 2018--SEES DR. STAPLES WEEKLY FOR DEBRIDEMENTS--LAST VISIT WAS Saturday02/10/19. NEXT APPOINTMENT IS SaturdayFEBRUARY 16 PT HAD 6 WEEKS OF IV VANCOMYCIN VIA PICC LINE--PT STATES "OSTEOMYELITIS WAS CLEARED BUT THE TESTS SHOWED THERE WAS STILL INFECTION IN THE TISSUES" AND CULTURES GREW OUT STAPH. PT FINISHED VANCOMYCIN 2 WEEKS AGO, AND HAS BEEN ON MINOCYCLINE SINCE THEN FOR RESIDUAL INFECTION, AND IS STILL TAKING IT. PT ALSO PACKS THE WOUND WITH IODOFORM PACKING GAUZE STATES HE THOUGHT IT WAS GETTING BETTER, BUT THE LAST 4-5 HOURS HAS HAD SEVERE PAIN IN TOE, WITH REDNESS AND SWELLING TO LEFT GREAT TOE AND FOOT, AND HAS HAD PURULENT DRAINAGE FROM WOUND TODAY DENIES ANY INJURY NO FEVER, BUT HAS BEEN HAVING "HOT FLASHES" STATES BLOOD SUGAR WAS IN 140'S THIS AM, BUT HAS NOT TAKEN INSULIN TODAY AND HAD PIZZA AND REGULAR COKE THIS AFTERNOON. HAS NOT TAKEN ANYTHING FOR PAIN THIS AFTERNOON. PCP: DR. RODRIGUEZ WOUND CARE: DR. 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 ULLOA AND DR. SCHMITZ A COUPLE OF TIMES IN THE PAST, BUT NOT FOR A VERY LONG TIME. Allergies and Home Medications Allergies Coded Allergies: ceftriaxone (Verified Allergy, Intermediate, 08/11/18) Patient experienced reaction approx. 6 hrs after receiving rocephin. He experienced redness, itching and shortness of air. Benadryl was administered and it resolved. Home Medications Albuterol Sulfate 18 Gm Hfa.aer.ad, 2 PUFF INH Q6H PRN for SHORTNESS OF BREATH, (Reported) Albuterol Sulfate 2.5 Mg/3 Ml Vial.neb, 2.5 MG NEB Q6H PRN for SHORTNESS OF BREATH, (Reported) Atorvastatin Calcium 10 Mg Tablet, 10 MG PO HS, (Reported) Budesonide 8.43 Ml Vancleave.pump, 2 SPRAYS NS BID PRN for ALLERGIES, (Reported) Budesonide/Formoterol Fumarate 10.2 Gm Hfa.aer.ad, 2 PUFF INH BID, (Reported) Carbamazepine 200 Mg Tablet, 200 MG PO HS, (Reported) Cetirizine HCl 10 Mg Tablet, 10 MG PO DAILY, (Reported) Insulin Aspart 100 Unit/1 Ml Susp, 20 UNITS SQ TIDAC, (Reported) Insulin Determir 1,000 Units/10 Ml Soln, 30 UNITS SQ BID, (Reported) Losartan Potassium 25 Mg Tablet, 25 MG PO DAILY, (Reported) Montelukast Sodium 10 Mg Tablet, 10 MG PO HS, (Reported) Oxycodone HCl/Acetaminophen 1 Each Tablet, 1 TAB PO Q4H PRN for PAIN-MODERATE Prescribed by: HERNANDO KILGORE on 10/29/18 1138 Pantoprazole Sodium 40 Mg Tablet.dr, 40 MG PO DAILY, (Reported) Pregabalin 300 Mg Capsule, 300 MG PO TID, (Reported) Tiotropium [place] 4 Gm Mist.inhal, 2 PUFF INH DAILY, (Reported) Patient Home Medication List Home Medication List Reviewed: Yes Review of Systems Constitutional: see HPI; No chills, No diaphoresis, No fever Respiratory: no symptoms reported Cardiovascular: no symptoms reported Genitourinary: no symptoms reported Musculoskeletal: see HPI Skin: see HPI Psychiatric/Neurological: See HPI, Pre-Existing Deficit (PERIPHERAL NEUROPATHY) Past Rndcbzu-Qykcby-Zwedod Hx Patient Social History Alcohol Use: Denies Use (LONG HISTORY OF ABUSE, CLAIMS NOW ONLY DRINKS ON "RARE OCCASIONS" ) Number of Drinks Today: AA Alcohol Beverage of Choice: Beer Recreational Drug Use: Yes (LONG HISTORY OF THC, "SPEED" AND RX DRUG ABUSE/OVERDOSES--ALEXANDRA. BENZO'S AND OPIATES) Drug of Choice: CANNIBUS Smoking Status: Former Smoker (2 PPD--QUIT CIGARETTES IN 2017, BUT STILL "VAPES" ) Type Used: Cigarettes, Electronic/Vapor Former Smoker, Quit: Jul 17, 2017 2nd Hand Smoke Exposure: No Recent Foreign Travel: No Contact w/Someone Who Travel: No Recent Infectious Disease Expo: No Recent Hopitalizations: No Immunizations Up To Date Tetanus Booster (TDap): Less than 5yrs PED Vaccines UTD: No Date of Pneumonia Vaccine: January 20, 2013 Date of Influenza Vaccine: Jun 20, 2018 Seasonal Allergies Seasonal Allergies: Yes Past Medical History Surgeries: Yes (HERNIA REPAIR; ENE-SPINE SURGERY X2; RT KNEE SCOPE; RIGHT SHOULDER SCOPE; BRONCHOSCOPIES/BIOPSIES-LAST ONE 08/2018; COLONOSCOPIES/POLYPE CTOMIES; CARDIAC CATHS-NO INTERVENTION; LEFT 3RD FINGER/TRIGGER FINGER RELEASE 10/29/18-DR. WORRELL) Abdominal, Cardiac, Orthopedic Respiratory: Yes (INTERSTITIAL LUNG DISEASE, OXYGEN PRN; PULMONARY NODULES--MULTIPLE BRONCHOSCOPIES/BIOPSIES) Pneumonia, Sleep Apnea, COPD Currently Using CPAP: No Currently Using BIPAP: Yes Cardiac: Yes (LBBB, CARDIAC ENAHY-HOU-[id number] DISEASE/NO INTERVENTION) Coronary Artery Disease, High Cholesterol, Hypertension Neurological: Yes (NEUROPATHY IN FEET; RESTLESS LEG SYNDROME) Neuropathy, TIA Reproductive Disorders: No Sexually Transmitted Disease: No HIV/AIDS: No Genitourinary: No Gastrointestinal: Yes Gastroesophageal Reflux, Hemorrhoids, Polyps Musculoskeletal: Yes (CHRONIC GENERALIZED PAIN, CHRONIC NECK AND BACK PAIN ;RIGHT SHOULDER SCOPE; RIGHT KNEE SCOPE; LEFT 3RD FINGER TRIGGER FINGER RELEASE; LEG/FEET PAIN; SCIATICA; RESTLESS LEG SYNDROME; OSTEOMYELITIS LEFT GREAT TOE/FOOT ) Degenerate Disk Disease, Arthritis, Fibromyalgia, Chronic Back Pain Endocrine: Yes Diabetes, Insulin dep HEENT: No Loss of Vision: Denies Hearing Impairment: Hard of Hearing Cancer: No Psychosocial: Yes (EXTENSIVE POLYSUBSTANCE ABUSE--THC, "SPEED", RX DRUGS- BENZODIAZEPINES AND OPIATES--WITH AT LEAST 2 INTENTIONAL OVERDOSES, ALSO ABUSE/EXCESSIVE USE OF RX DRUGS. PSYCH ADMITS --AT LEAST TWICE) Anxiety, Suicide Attempts, Depression Integumentary: Yes (DIABETIC FOOT ULCERS/CELLULITIS/OSTEOMYELITIS; MRSA) Blood Disorders: No Adverse Reaction/Blood Tranf: No Family Medical History Cancer 03 MOTHER Cancer of colon 03 MOTHER Cataract 03 MOTHER Chest pain 03 FATHER Family history: Cardiovascular disease 03 FATHER Family history: Diabetes mellitus 09 BROTHER Headache 03 FATHER 03 MOTHER 09 BROTHER 09 BROTHER Heart disease 03 FATHER Myocardial infarction 03 FATHER Stroke 09 BROTHER No Family History of: Abdominal aortic aneurysm Tokio's disease Alcoholism Aphasia Congenital heart disease Congestive heart failure Cystic fibrosis Dementia Dysphagia Family history: Allergy Family history: Alzheimer's disease Family history: Arthritis Family history: Asthma Family history: Breast disease Family history: Coronary thrombosis Family history: Gastrointestinal disease Family history: Glaucoma Family history: Hypertension Family history: Osteoporosis Family history: Thyroid disorder Hearing loss Hereditary disease History of - anemia History of - disorder History of - respiratory disease History of drug abuse Human immunodeficiency virus (HIV) seropositivity Hypercholesterolemia Infertile Kidney disease Malignant neoplasm of lung Parkinson's disease Prostate cancer Psychotic disorder Seizure disorder Tuberculosis Visual impairment No Pertinent Family Hx Physical Exam Vital Signs Vital Signs - First Documented 02/13/19 02/13/19 17:44 18:25 Temp 98.3 Pulse 105 Resp 21 B/P (MAP) 147/87 (107) Pulse Ox 97 O2 Delivery Room Air O2 Flow Rate 3.00 Capillary Refill : Less Than 3 Seconds Height, Weight, BMI Height: 6'2.00" Weight: 230lbs. 0.0oz. 104.862226qh; 29.5 BMI Method:Stated General Appearance: WD/WN, no apparent distress, other (SMILING, VERY TALKATIVE, DOES NOT APPEAR TO BE IN ANY DISCOMFORT OR DISTRESS) Cardiovascular: regular rate, rhythm, no murmur Respiratory: normal breath sounds, no respiratory distress Gastrointestinal: soft Ankles: left ankle normal inspection Feet: left foot other (LEFT GREAT TOE WITH SMALL ULCER TO DISTAL ASPECT OF TOE, SMALL AMOUNT OF PURULENT DRAINAGE. TOENAIL WITH EXTENSIVE MYCOTIC CHANGES. MODERATE SWELLING AND ERYTHEMA TO GREAT TOE AND DISTAL FOOT; OTHER TOES WITH EXPOSED TISSUE--PT STATES HE TRIMMED HIS TOENAILS TODAY AND "THE NAIL WAS ATTACHED TO THE SKIN" AND HE TRIMMED THEM ALL BACK SEVERELY, NOW HAS OPEN WOUNDS TO TIPS OF OTHER TOES, ESPECIALLY TOES 2 AND 4. ) Neurologic/Tendon: normal motor functions, normal tendon functions, responds to pain, sensory deficit (DECREASED SENSATION TO FEET BILATERALLY) Skin: normal color, warm/dry, other ( ABOVE) Progress/Results/Core Measures Results/Orders Lab Results Laboratory Tests Test 02/13/19 18:05 02/13/19 18:18 Range/Units White Blood Count 14.5 H 4.3-11.0 10^3/uL Red Blood Count 5.27 4.35-5.85 10^6/uL Hemoglobin 15.2 13.3-17.7 G/DL Hematocrit 42 40-54 % Mean Corpuscular Volume 79 L 80-99 FL Mean Corpuscular Hemoglobin 29 25-34 PG Mean Corpuscular Hemoglobin Concent 36 32-36 G/DL Red Cell Distribution Width 14.0 10.0-14.5 % Platelet Count 188 130-400 10^3/uL Mean Platelet Volume 11.5 H 7.4-10.4 FL Neutrophils (%) (Auto) 73 42-75 % Lymphocytes (%) (Auto) 18 12-44 % Monocytes (%) (Auto) 9 0-12 % Eosinophils (%) (Auto) 1 0-10 % Basophils (%) (Auto) 1 0-10 % Neutrophils # (Auto) 10.5 H 1.8-7.8 X 10^3 Lymphocytes # (Auto) 2.6 1.0-4.0 X 10^3 Monocytes # (Auto) 1.2 H 0.0-1.0 X 10^3 Eosinophils # (Auto) 0.1 0.0-0.3 10^3/uL Basophils # (Auto) 0.1 0.0-0.1 10^3/uL Neutrophils % (Manual) 69 % Lymphocytes % (Manual) 19 % Monocytes % (Manual) 9 % Eosinophils % (Manual) 1 % Basophils % (Manual) 0 % Band Neutrophils 1 % Reactive Lymphocytes 1 % Blood Morphology Comment NORMAL Erythrocyte Sedimentation Rate 1 0-30 MM/HR Prothrombin Time 13.5 12.2-14.7 SEC INR Comment 1.0 0.8-1.4 Activated Partial Thromboplast Time 28 24-35 SEC Sodium Level 131 L 135-145 MMOL/L Potassium Level 4.2 3.6-5.0 MMOL/L Chloride Level 99 98-107 MMOL/L Carbon Dioxide Level 22 21-32 MMOL/L Anion Gap 10 5-14 MMOL/L Blood Urea Nitrogen 14 7-18 MG/DL Creatinine 0.93 0.60-1.30 MG/DL Estimat Glomerular Filtration Rate > 60 BUN/Creatinine Ratio 15 Glucose Level 439 *H 70-105 MG/DL Lactic Acid Level 2.80 *H 0.50-2.00 MMOL/L Calcium Level 9.5 8.5-10.1 MG/DL Corrected Calcium 9.3 8.5-10.1 MG/DL Magnesium Level 1.8 1.8-2.4 MG/DL Total Bilirubin 0.6 0.1-1.0 MG/DL Aspartate Amino Transf (AST/SGOT) 11 5-34 U/L Alanine Aminotransferase (ALT/SGPT) 18 0-55 U/L Alkaline Phosphatase 74 40-136 U/L C-Reactive Protein High Sensitivity 2.13 H 0.00-0.50 MG/DL Total Protein 6.9 6.4-8.2 GM/DL Albumin 4.2 3.2-4.5 GM/DL Serum Alcohol < 10 <10 MG/DL Urine Color YELLOW Urine Clarity CLEAR Urine pH 5 5-9 Urine Specific [place] 1.015 L 1.016-1.022 Urine Protein NEGATIVE NEGATIVE Urine Glucose (UA) 4+ H NEGATIVE Urine Ketones NEGATIVE NEGATIVE Urine Nitrite NEGATIVE NEGATIVE Urine Bilirubin NEGATIVE NEGATIVE Urine Urobilinogen NORMAL NORMAL MG/DL Urine Leukocyte Esterase NEGATIVE NEGATIVE Urine RBC (Auto) NEGATIVE NEGATIVE Urine RBC NONE /HPF Urine WBC NONE /HPF Urine Squamous Epithelial Cells RARE /HPF Urine Crystals NONE /LPF Urine Bacteria NEGATIVE /HPF Urine Casts NONE /LPF Urine Mucus NEGATIVE /LPF Urine Culture Indicated CULTURE PENDING Urine Opiates Screen NEGATIVE NEGATIVE Urine Oxycodone Screen POSITIVE H NEGATIVE Urine Methadone Screen NEGATIVE NEGATIVE Urine Propoxyphene Screen NEGATIVE NEGATIVE Urine Barbiturates Screen NEGATIVE NEGATIVE Ur Tricyclic Antidepressants Screen NEGATIVE NEGATIVE Urine Phencyclidine Screen NEGATIVE NEGATIVE Urine Amphetamines Screen NEGATIVE NEGATIVE Urine Methamphetamines Screen NEGATIVE NEGATIVE Urine Benzodiazepines Screen NEGATIVE NEGATIVE Urine Cocaine Screen NEGATIVE NEGATIVE Urine Cannabinoids Screen NEGATIVE NEGATIVE My Orders Orders - JULIET MACE DO Ed Iv/Invasive Line Start (02/13/19 17:55) Monitor-Rhythm Ecg Trace Only (02/13/19 17:55) Cbc With Automated Diff (02/13/19 17:55) Comprehensive Metabolic Panel (02/13/19 17:55) Hs C Reactive Protein (02/13/19 17:55) Erythrocyte Sedimentation Rate (02/13/19 17:55) Lactic Acid Analyzer (02/13/19 17:55) Magnesium (02/13/19 17:55) Protime With Inr (02/13/19 17:55) Partial Thromboplastin Time (02/13/19 17:55) Blood Culture (02/13/19 17:55) Foot, Left, 3 Views (02/13/19 17:55) Ketorolac Injection (Toradol Injection) (02/13/19 18:15) Urinalysis (02/13/19 18:04) Urine Culture (02/13/19 18:04) Ed Iv/Invasive Line Start (02/13/19 18:04) Ed Iv/Invasive Line Start (02/13/19 18:04) Vital Signs Adult Sepsis Patie Q15M (02/13/19 18:04) Remove Rings In Anticipation O (02/13/19 18:04) Wound Culture (02/13/19 18:04) Ns Iv 1000 Ml (Sodium Chloride 0.9%) (02/13/19 18:04) Piperacillin Sodium/Tazobactam (Zosyn Vi (02/13/19 18:15) Vancomycin Injection (Vancomycin Injecti (02/13/19 18:15) Pregabalin Capsule (Lyrica Capsule) (02/13/19 18:15) Drug Screen Stat (Urine) (02/13/19 18:30) Ua Culture If Indicated (02/13/19 18:30) Manual Differential (02/13/19 18:05) Alcohol (02/13/19 18:05) Insulin (Regular) Human (Humulin R (Per (02/13/19 19:00) Ed Iv/Invasive Line Start (02/13/19 19:00) Ns Iv 1000 Ml (Sodium Chloride 0.9%) (02/13/19 19:00) Fentanyl Injection (Sublimaze Injection (02/13/19 19:15) Ekg Tracing (02/13/19 19:14) Medications Given in ED Current Medications Medications Dose Ordered Sig/Gale Route Start Time Stop Time Status Last Admin Dose Admin Ketorolac Tromethamine 30 mg ONCE ONCE IVP 02/13/19 18:15 02/13/19 18:16 DC 02/13/19 18:23 30 MG Piperacillin Sod/ Tazobactam Sod 4.5 gm/Sodium Chloride 100 ml @ 200 mls/hr ONCE ONCE IV 02/13/19 18:15 02/13/19 18:44 DC 02/13/19 19:05 200 MLS/HR Pregabalin 300 mg ONCE ONCE PO 02/13/19 18:15 02/13/19 18:16 DC 02/13/19 18:28 300 MG Vital Signs/I&O 02/13/19 02/13/19 02/13/19 17:44 18:25 18:49 Temp 98.3 Pulse 105 98 90 Resp 21 20 12 B/P (MAP) 147/87 (107) 119/80 (93) 120/82 Pulse Ox 97 97 96 O2 Delivery Room Air Nasal Cannula Nasal Cannula O2 Flow Rate 3.00 3.00 Blood Pressure Mean: 107 Progress Progress Note : Progress Note NO DETERIORATION IN PTS' CONDITION DURING ER STAY Initial ECG Impression Date: February 13, 2019 Initial ECG Impression Time: 19:16 Initial ECG Rate: 88 Initial ECG Rhythm: Normal Sinus Initial ECG Comparisson: Unchanged Diagnostic Imaging Comments XRAYS LEFT FOOT--CHANGES C/W OSTEOMYELITIS TO DISTAL PHALANX OF GREAT TOE-- CHANGED FROM 11/2018--PER RADIOLOGIST REPORT AT 1849 Reviewed: Reviewed by Me Departure Communication (Admissions) 1900--SPOKE WITH DR. ENRIQUE, HOSPITALIST, ACCEPTS PT FOR ADMIT Impression Primary Impression: Osteomyelitis of great toe of left foot Additional Impressions: CELLULITIS LEFT GREAT TOE AND FOOT Sepsis Diabetes mellitus, insulin dependent (IDDM), uncontrolled Disposition: ADMITTED INPATIENT Condition: Stable Admissions Decision to Admit Reason: Admit from ER (General) Decision to Admit/Date: February 13, 2019 Time/Decision to Admit Time: 19:00 Departure-Patient Inst. Referrals: JULIET RODRIGUEZ MD (PCP/Family) Primary Care Physician JULIET MACE DO February 13, 2019 18:15
[2019-02-13 18:25] VITALS: BP 119/80
[2019-02-13 18:28] LABS: BASOPHILS # (AUTO) 0.1 10^3/uL (0.0-0.1); BASOPHILS % (AUTO) 1 % (0-10); EOSINOPHILS # (AUTO) 0.1 10^3/uL (0.0-0.3); EOSINOPHILS % (AUTO) 1 % (0-10); HEMATOCRIT 42 % (40-54); HEMOGLOBIN 15.2 G/DL (13.3-17.7); LYMPHOCYTES # (AUTO) 2.6 X 10^3 (1.0-4.0); LYMPHOCYTES % (AUTO) 18 % (12-44); MEAN CORPUSCULAR HEMOGLOBIN 29 PG (25-34); MEAN CORPUSCULAR HGB CONC 36 G/DL (32-36); MEAN CORPUSCULAR VOLUME 79 FL (80-99); MEAN PLATELET VOLUME 11.5 FL (7.4-10.4); MONOCYTES # (AUTO) 1.2 X 10^3 (0.0-1.0); MONOCYTES % (AUTO) 9 % (0-12); NEUTROPHILS # (AUTO) 10.5 X 10^3 (1.8-7.8); NEUTROPHILS % (AUTO) 73 % (42-75); PLATELET COUNT 188 10^3/uL (130-400); WHITE BLOOD COUNT 14.5 10^3/uL (4.3-11.0)
[2019-02-13 18:29] LABS: BILIRUBIN,URINE NEGATIVE (NEGATIVE); CLARITY,URINE CLEAR; COLOR,URINE YELLOW; GLUCOSE, URINE (UA) 4+ (NEGATIVE); KETONES,URINE NEGATIVE (NEGATIVE); LEUKOCYTE ESTERASE ,URINE NEGATIVE (NEGATIVE); NITRITE,URINE NEGATIVE (NEGATIVE); PH,URINE 5 (5-9); PROTEIN,URINE NEGATIVE (NEGATIVE); UROBILINOGEN,URINE NORMAL (NORMAL)
[2019-02-13 18:40] LABS: BACTERIA,URINE NEGATIVE /HPF; SQUAMOUS EPITHELIAL CELL,UR RARE /HPF
[2019-02-13 18:43] LABS: PROTHROMBIN TIME PATIENT 13.5 SEC (12.2-14.7)
--- NOTE | 2019-02-13 18:47 | Diagnostic Imaging Report ---
INDICATION: Wound on the tip of the left great toe. Redness and swelling. FINDINGS: Three views of the left foot show a bony destructive process involving the distal half of the distal phalanx of the great toe, which is a change from 11/17/2018. The interphalangeal joint is intact. The proximal digit shows no acute abnormality. The remainder of the left foot shows no significant abnormality. IMPRESSION: There is osteolysis of the distal aspect of the distal phalanx of the left great toe consistent with osteomyelitis, and this represents a change from 11/17/2018. Dictated by: Dictated on workstation # [id number]
[2019-02-13 18:52] LABS: ALANINE AMINOTRANSFERASE 18 U/L (0-55); ALBUMIN 4.2 GM/DL (3.2-4.5); ALKALINE PHOSPHATASE 74 U/L (40-136); BILIRUBIN,TOTAL 0.6 MG/DL (0.1-1.0); BUN/CREATININE RATIO 15; CALCIUM 9.5 MG/DL (8.5-10.1); CARBON DIOXIDE 22 MMOL/L (21-32); CHLORIDE 99 MMOL/L (98-107); CREATININE SERUM 0.93 MG/DL (0.60-1.30); GFR ESTIMATED > 60; MAGNESIUM 1.8 MG/DL (1.8-2.4); POTASSIUM 4.2 MMOL/L (3.6-5.0); SODIUM 131 MMOL/L (135-145); TOTAL PROTEIN 6.9 GM/DL (6.4-8.2)
[2019-02-13 18:54] LABS: GLUCOSE 439 MG/DL (70-105)
[2019-02-13 19:00] LABS: AMPHETAMINE SCREEN, URINE NEGATIVE (NEGATIVE); BARBITURATE SCREEN URINE NEGATIVE (NEGATIVE); BENZODIAZEPINES SCREEN URINE NEGATIVE (NEGATIVE); CANNABINOID SCREEN, URINE NEGATIVE (NEGATIVE); COCAINE SCREEN URINE NEGATIVE (NEGATIVE); METHADONE STAT NEGATIVE (NEGATIVE); METHAMPHETAMINE SCREEN URINE S NEGATIVE (NEGATIVE); OPIATE SCREEN URINE NEGATIVE (NEGATIVE); OXYCODONE STAT POSITIVE (NEGATIVE); PROPOXYPHENE STAT NEGATIVE (NEGATIVE); TRICYCLIC ANTIDEPRESSANTS SCRE NEGATIVE (NEGATIVE)
[2019-02-13] MEDS ORDERED: inSUlin (REGULAR) HUMAN 1 UNIT/0.01 ML (CHARGE PER UNIT) IV ONE (19:00)
[2019-02-13] MEDS ORDERED: NS IV 1000 ML 1,000 ML IV ONE (19:00)
[2019-02-13 19:03] LABS: ERYTHROCYTE SEDIMENTATION RATE 1 MM/HR (0-30)
[2019-02-13 19:13] LABS: BAND NEUTROPHILS 1 %; BASOPHILS % (MANUAL) 0 %; EOSINOPHILS % (MANUAL) 1 %; LYMPHOCYTES % (MANUAL) 19 %; MONOCYTES % (MANUAL) 9 %; NEUTROPHILS % (MANUAL) 69 %; REACTIVE LYMPHOCYTES 1 %
[2019-02-13 19:14] LABS: RBC MORPH NORMAL
[2019-02-13] MEDS ORDERED: fentaNYL INJECTION 100 MCG/2 ML AMP IVP ONE (19:15)
[2019-02-13] MEDS ORDERED: fentaNYL INJECTION 100 MCG/2 ML AMP ONE (19:20)
[2019-02-13 19:58] VITALS: BP 120/78
[2019-02-13 20:30] VITALS: BP 136/82
--- NOTE | 2019-02-13 20:30 | NUR ---
EHSAN ZUÑIGA admitted to room 405-1, with an admitting diagnosis of OSTEOMYELITIS AND CELLULITIS OF GREAT L TOE, UNCONTROLLED IDDM,SEPSIS , on 02/13/19 from ED via , accompanied by STAFF AND FAMILY.EHSAN ZUÑIGA introduced to surroundings, call light, bed controls, phone, TV, temperature control, lights, meal times, smoking policy, visitor policy, side rail policy, bathrooms and showers. Patient Rights given to patient in the handbook. EHSAN ZUÑIGA verbalizes understanding that [facility] is not responsible for the loss or damage to any personal effects or valuables that are kept in the patients possession during their hospitalization. PLANS OF CARE DISCUSSED WITH THE PT AND VERBALIZES UNDERSTANDING. EHSAN ZUÑIGA verbalizes understanding of Interdisciplinary Patient Education. Patient and/or family were informed about the Rapid Response Team and its purpose.
[2019-02-13] MEDS ORDERED: ACETAMINOPHEN 500 MG TAB (TYLENOL) PO PRN (21:45)
[2019-02-13] MEDS ORDERED: ONDANSETRON 4 MG/2 ML (SDV) Z0FRAN IV PRN (21:45)
[2019-02-13] MEDS ORDERED: NS IV 1000 ML 1,000 ML ONE (22:01)
[2019-02-13] MEDS: fentaNYL INJECTION 100 MCG/2 ML AMP IV PRN (22:14)
[2019-02-13 23:16] VITALS: BP 139/65
[2019-02-14] MEDS ORDERED: PIPERACILLIN/TAZO 4.5 GM VIAL (ZOSYN) IV ONE (00:12)
[2019-02-14] MEDS ORDERED: NS (IVPB) 100 ML ONE (00:13)
[2019-02-14] MEDS: PIPERACILLIN/TAZO 4.5 GM/NS 100 ML IV SCH ×6 (00:20→16:43)
[2019-02-14] MEDS: fentaNYL INJECTION 100 MCG/2 ML AMP IV PRN ×2 (03:26→05:28)
[2019-02-14] MEDS: KETOROLAC 30 MG/ML VIAL IVP PRN ×3 (04:21→16:48)
[2019-02-14 04:33] VITALS: BP 159/76
[2019-02-14 04:36] LABS: BASOPHILS # (AUTO) 0.1 10^3/uL (0.0-0.1); BASOPHILS % (AUTO) 1 % (0-10); EOSINOPHILS # (AUTO) 0.2 10^3/uL (0.0-0.3); EOSINOPHILS % (AUTO) 3 % (0-10); HEMATOCRIT 39 % (40-54); HEMOGLOBIN 13.5 G/DL (13.3-17.7); LYMPHOCYTES # (AUTO) 2.4 X 10^3 (1.0-4.0); LYMPHOCYTES % (AUTO) 28 % (12-44); MEAN CORPUSCULAR HEMOGLOBIN 29 PG (25-34); MEAN CORPUSCULAR HGB CONC 35 G/DL (32-36); MEAN CORPUSCULAR VOLUME 83 FL (80-99); MEAN PLATELET VOLUME 10.8 FL (7.4-10.4); MONOCYTES # (AUTO) 0.7 X 10^3 (0.0-1.0); MONOCYTES % (AUTO) 9 % (0-12); NEUTROPHILS # (AUTO) 5.2 X 10^3 (1.8-7.8); NEUTROPHILS % (AUTO) 60 % (42-75); PLATELET COUNT 161 10^3/uL (130-400); RED CELL DISTRIBUTION WIDTH 14.4 % (10.0-14.5); WHITE BLOOD COUNT 8.6 10^3/uL (4.3-11.0)
[2019-02-14] MEDS ORDERED: NS IV 1000 ML 1,000 ML ONE (04:36)
[2019-02-14 04:57] LABS: ALANINE AMINOTRANSFERASE 14 U/L (0-55); ALBUMIN 3.3 GM/DL (3.2-4.5); ALKALINE PHOSPHATASE 63 U/L (40-136); BILIRUBIN,TOTAL 0.9 MG/DL (0.1-1.0); BUN/CREATININE RATIO 16; CALCIUM 8.7 MG/DL (8.5-10.1); CARBON DIOXIDE 24 MMOL/L (21-32); CHLORIDE 105 MMOL/L (98-107); CREATININE SERUM 0.81 MG/DL (0.60-1.30); GFR ESTIMATED > 60; GLUCOSE 356 MG/DL (70-105); SODIUM 136 MMOL/L (135-145); TOTAL PROTEIN 5.4 GM/DL (6.4-8.2)
[2019-02-14] MEDS: NS IV 1000 ML 1,000 ML IV SCH ×4 (05:08→20:50)
[2019-02-14] MEDS: inSUlin ASPART (NovoLOG) 1 UNIT/0.01 ML (CHARGE PER UNIT) SC SCH ×6 (05:29→20:45)
[2019-02-14] MEDS: fentaNYL INJECTION 100 MCG/2 ML AMP IVP PRN ×6 (06:43→22:01)
[2019-02-14 07:35] VITALS: BP 155/75
[2019-02-14] MEDS ORDERED: VANCOMYCIN 1,750 MG/NS 500 ML IVPB IV NR ×2 (08:15)
--- NOTE | 2019-02-14 08:25 | NUR ---
CR 0.81; CR CL > 80; WT 99.3 KG; VANCO 1 GM GIVEN IN ER; CONTINUE WITH VANCO 1750 MG IV BOLUS THEN 1500 MG IV Q12HR; TROUGH TOMORROW PM
[2019-02-14 11:00] VITALS: BP 170/85
[2019-02-14] MEDS ORDERED: OXYC-464 PO (11:01)
--- NOTE | 2019-02-14 11:01 | History & Physical-Hospitalist ---
History of Present Illness HPI/Chief Complaint The patient is a 58-year-old white male who presented to the emergency room yesterday with complaints of pain and swelling and redness of his left great toe. The patient is a type II insulin requiring diabetic. He has required insulin since at least 2013. He reports that his most recent hemoglobin A1c was 7.5 and he has a goal of getting it to 7.0 or less. He has had problems with the left great toe since at least June of last year. He ultimately was diagnosed as having osteomyelitis. He took vancomycin IV for 6 weeks completing that about 2 weeks ago. He now has recrudescence of swelling and noted redness beginning to extend over the dorsum of his left foot. He has been seen by Dr. Ackerman in the wound clinic on a regular basis. He grew Staphylococcus epidermidis on 2 separate cultures. This was multi drug resistant. Date Seen 02/14/19 Time Seen by a Provider: 10:45 Attending Physician Rona Smith MD PCP Ashley Haddad MD Referring Physician Date of Admission February 13, 2019 at 19:00 Home Medications & Allergies Home Medications Reviewed patient Home Medication Reconciliation performed by pharmacy medication reconciliations vehicle operator technician and/or nursing. Patients Allergies have been reviewed. Allergies Allergies Coded Allergies ceftriaxone (Verified Allergy, Intermediate, 08/11/18) Patient experienced reaction approx. 6 hrs after receiving rocephin. He experienced redness, itching and shortness of air. Benadryl was administered and it resolved. Past Lvvrysu-Mijikd-Cwhvls Hx Past Med/Social Hx: Reviewed Nursing Past Med/Soc Hx Patient Social History Alcohol Use: Denies Use (LONG HISTORY OF ABUSE, CLAIMS NOW ONLY DRINKS ON "RARE OCCASIONS" ) Number of Drinks Today: AA Alcohol Beverage of Choice: Beer Recreational Drug Use: Yes (LONG HISTORY OF THC, "SPEED" AND RX DRUG ABUSE/OVERDOSES--ALEXANDRA. BENZO'S AND OPIATES) Drug of Choice: CANNIBUS Smoking Status: Former Smoker (2 PPD--QUIT CIGARETTES IN 2017, BUT STILL "VAPES" ) Former Smoker, Quit: Jul 17, 2017 Type Used: Cigarettes, Electronic/Vapor 2nd Hand Smoke Exposure: No Recent Foreign Travel: No Contact w/other who traveled: No Recent Hopitalizations: No Recent Infectious Disease Expo: No Immunizations Up To Date Tetanus Booster (TDap): Less than 5yrs Pediatric: No Date of Pneumonia Vaccine: January 20, 2013 Date of Influenza Vaccine: Jun 20, 2018 Seasonal Allergies Seasonal Allergies: Yes Past Medical History Surgeries: Abdominal, Cardiac, Orthopedic Currently Using CPAP: No Currently Using BIPAP: Yes Cardiac: Coronary Artery Disease, High Cholesterol, Hypertension Neurological: Neuropathy, TIA Reproductive: No Sexually Transmitted Disease: No HIV/AIDS: No Gastrointestinal: Gastroesophageal Reflux, Hemorrhoids, Polyps Musculoskeletal: Degenerate Disk Disease, Arthritis, Fibromyalgia, Chronic Back Pain Endocrine: Diabetes, Insulin dep Loss of Vision: Denies Hearing Impairment: Hard of Hearing Psychosocial: Anxiety, Suicide Attempts, Depression History of Blood Disorders: No Adverse Reaction to Blood Benavides: No Family History Cancer 03 MOTHER Cancer of colon 03 MOTHER Cataract 03 MOTHER Chest pain 03 FATHER Family history: Cardiovascular disease 03 FATHER Family history: Diabetes mellitus 09 BROTHER Headache 03 FATHER 03 MOTHER 09 BROTHER 09 BROTHER Heart disease 03 FATHER Myocardial infarction 03 FATHER Stroke 09 BROTHER No Family History of: Abdominal aortic aneurysm Hi's disease Alcoholism Aphasia Congenital heart disease Congestive heart failure Cystic fibrosis Dementia Dysphagia Family history: Allergy Family history: Alzheimer's disease Family history: Arthritis Family history: Asthma Family history: Breast disease Family history: Coronary thrombosis Family history: Gastrointestinal disease Family history: Glaucoma Family history: Hypertension Family history: Osteoporosis Family history: Thyroid disorder Hearing loss Hereditary disease History of - anemia History of - disorder History of - respiratory disease History of drug abuse Human immunodeficiency virus (HIV) seropositivity Hypercholesterolemia Infertile Kidney disease Malignant neoplasm of lung Parkinson's disease Prostate cancer Psychotic disorder Seizure disorder Tuberculosis Visual impairment No Pertinent Family Hx Review of Systems Constitutional: see HPI EENTM: no symptoms reported Respiratory: no symptoms reported Cardiovascular: no symptoms reported Gastrointestinal: no symptoms reported Genitourinary: no symptoms reported Musculoskeletal: other (pain left great toe) Skin: other (EZ tearing and bruising) Psychiatric/Neurological: Other (significant neuropathy bilateral feet) Physical Exam Physical Exam Vital Signs Vital Signs - First Documented 02/13/19 02/13/19 17:44 18:25 Temp 98.3 Pulse 105 Resp 21 B/P (MAP) 147/87 (107) Pulse Ox 97 O2 Delivery Room Air O2 Flow Rate 3.00 Capillary Refill : Less Than 3 SecondsLess Than 3 Seconds Height, Weight, BMI Height: 6'2.00" Weight: 219lbs. 0.0oz. 99.876802cs; 28.1 BMI Method:Stated General Appearance: No Apparent Distress, WD/WN HEENT: Normal ENT Inspection Neck: Normal Inspection Respiratory: Chest Non Tender, Lungs Clear, Normal Breath Sounds, No Accessory Muscle Use, No Respiratory Distress Cardiovascular: Regular Rate, Rhythm, No Edema, No Gallop, No JVD, No Murmur, Normal Peripheral Pulses Gastrointestinal: Normal Bowel Sounds, No Organomegaly, No Pulsatile Mass, Non Tender, Soft Back: Normal Inspection Extremity: Normal Capillary Refill Neurologic/Psychiatric: Alert, No Motor/Sensory Deficits, Normal Mood/Affect, library manager II-XII Norm as Tested Comments Left great toe is greatly swollen. I would estimate it to be twice the size of the right great toe. The erythema which she describes being over the dorsum of the left foot has now retreated to the toe. There may be some slight involvement with erythema and swelling of the left second toe. It is noted that he has multiple hammertoe deformities including the right great toe and the left second toe. Results Results/Procedures Labs Laboratory Tests 02/13/19 18:05 02/14/19 04:07 Patient resulted labs reviewed. Assessment/Plan Admission Diagnosis 1.diabetes mellitus type II insulin requiring. 2.diabetic neuropathy. 3.recrudescence of osteomyelitis left great toe. Admission Status: Inpatient Order (span 2 midnights) Reason for Inpatient Admission: Treatment will require rate her than 2 midnight Assessment and Plan IV antibiotics. 2.surgical consult. Clinical Quality Measures DVT/VTE Risk/Contraindication: Risk Factor Score Per Nursin RFS Level Per Nursing on Admit: 4+=Very High Smoking Cessation Counseling: Counseling-Symptomatic: 3-10 Minutes Discussed Options Including: RONA Sin MD Feb 14, 2019 11:01
[2019-02-14] MEDS ORDERED: INSU100V16 SQ (11:02)
[2019-02-14] MEDS ORDERED: RT-ALBUTEROL SULF 2.5 MG/3 ML PRE-MIX VIAL IH PRN (11:15)
[2019-02-14] MEDS ORDERED: LOSARTAN 25 MG (COZAAR) TAB ONE (11:43)
[2019-02-14] MEDS: meTOproloL SUCCINATE 50 MG (TOPROL XL) TAB PO SCH (11:48)
[2019-02-14] MEDS: PREGABALIN 100 MG (LYRICA) CAPSULE PO SCH ×2 (11:49→20:45)
[2019-02-14] MEDS: LOSARTAN 25 MG (COZAAR) TAB PO SCH (11:49)
[2019-02-14] MEDS ORDERED: insulin ASPART vial for Pump (NovoLOG) SQ SCH ×2 (12:00→17:00)
[2019-02-14] MEDS ORDERED: PREGABALIN 300 MG PO SCH (13:00)
[2019-02-14] MEDS: oxyCODONE/APAP 7.5-325 MG (PERCOCET 7.5) TABLET PO PRN ×2 (14:45→23:41)
--- NOTE | 2019-02-14 14:51 | NUR ---
CALLED DR CAMPBELL. NO DRESSING CHANGE ORDERS FOR LEFT GREAT TOE. LEAVE IT OPEN TO AIR
[2019-02-14 15:40] VITALS: BP 131/71
[2019-02-14] MEDS ORDERED: VANCOMYCIN 1500 MG/NS 500 ML IVPB IV SCH ×2 (18:00)
[2019-02-14] MEDS: VANCOMYCIN 1500 MG/NS 500 ML IVPB IV SCH ×2 (19:51)
[2019-02-14 19:53] VITALS: BP 128/65
[2019-02-14] MEDS: ATORVASTATIN 10 MG (LIPITOR) TABLET PO SCH (20:44)
[2019-02-14 23:47] VITALS: BP 129/62
[2019-02-15] MEDS: PIPERACILLIN/TAZO 4.5 GM/NS 100 ML IV SCH ×8 (00:04→23:43)
[2019-02-15] MEDS: KETOROLAC 30 MG/ML VIAL IVP PRN (03:37)
[2019-02-15] MEDS: NS IV 1000 ML 1,000 ML IV SCH ×3 (03:38→17:43)
[2019-02-15 04:54] VITALS: BP 126/66
[2019-02-15] MEDS: inSUlin ASPART (NovoLOG) 1 UNIT/0.01 ML (CHARGE PER UNIT) SC SCH ×7 (05:32→20:24)
[2019-02-15] MEDS: oxyCODONE/APAP 7.5-325 MG (PERCOCET 7.5) TABLET PO PRN (06:34)
[2019-02-15] MEDS: PANTOPRAZOLE 40 MG (PROTONIX) TAB PO SCH (06:34)
[2019-02-15] MEDS: fentaNYL INJECTION 100 MCG/2 ML AMP IVP PRN ×7 (06:34→23:43)
[2019-02-15 08:00] VITALS: BP 139/79
[2019-02-15] MEDS: VANCOMYCIN 1500 MG/NS 500 ML IVPB IV SCH ×4 (08:20→20:23)
[2019-02-15] MEDS: meTOproloL SUCCINATE 50 MG (TOPROL XL) TAB PO SCH (08:21)
[2019-02-15] MEDS: PREGABALIN 100 MG (LYRICA) CAPSULE PO SCH ×3 (08:21→20:25)
[2019-02-15] MEDS: LOSARTAN 25 MG (COZAAR) TAB PO SCH (08:21)
[2019-02-15] MEDS ORDERED: LOSARTAN 25 MG (COZAAR) TAB PO SCH (09:00)
[2019-02-15] MEDS ORDERED: NON-FORMULARY MEDICATION 1 EA EA (Losartan Potassium 25 MG) PO SCH (09:00)
[2019-02-15] MEDS ORDERED: NON-FORMULARY MEDICATION 1 EA EA (Tiotropium Bromide (Spiriva Respimat 2.5MCG/ACTUATION) 2 INH SCH (09:00)
[2019-02-15] MEDS: UMECLIDINIUM BROMIDE (INCRUSE ELLIPTA) 7'S IH SCH (10:24)
[2019-02-15] MEDS ORDERED: oxyCODONE/APAP 7.5-325 MG (PERCOCET 7.5) TABLET PO PRN (10:45)
--- NOTE | 2019-02-15 10:45 | Progress Note (SOAP) ---
Subjective Date Seen by a Provider: Feb 15, 2019 Time Seen by a Provider: 10:30 Subjective/Events-last exam Patient seen with Dr. Nava. Patient reports doing well. Complains of left great toe pain. Says that IV medication works for awhile and oral helps a little. No Fever/chills. No N/V. Tolerating diet. Focused Exam Lactate Level 02/13/19 18:05: Lactic Acid Level 2.80*H 02/13/19 20:00: Lactic Acid Level 1.96 Objective Exam Vital Signs Date Time Temp Pulse Resp B/P (MAP) Pulse Ox O2 Delivery O2 Flow Rate FiO2 02/15/19 08:00 97.5 61 18 139/79 (99) 98 Nasal Cannula 3.00 02/15/19 04:54 96.9 58 18 126/66 (86) 100 Nasal Cannula 3.00 02/14/19 23:47 97.2 66 18 129/62 (84) 98 Nasal Cannula 3.00 02/14/19 20:00 Nasal Cannula 3.00 02/14/19 19:53 97.9 77 20 128/65 (86) 96 Nasal Cannula 3.00 02/14/19 18:50 3.00 02/14/19 15:40 97.9 60 18 131/71 (91) 98 Nasal Cannula 3.00 02/14/19 11:00 96.1 68 20 170/85 (113) 99 Nasal Cannula 3.00 I & O 02/15/19 07:00 Intake Total 5072.5 ml Output Total 2750 ml Balance 2322.5 ml Capillary Refill : Less Than 3 SecondsLess Than 3 Seconds General Appearance: No Apparent Distress, WD/WN Neck: Full Range of Motion, Normal Inspection, Supple Respiratory: Normal Breath Sounds, No Accessory Muscle Use, No Respiratory Distress Cardiovascular: Regular Rate, Rhythm, No Edema Gastrointestinal: normal bowel sounds, non tender, soft Extremity: Normal Range of Motion, Other (Left great toe erythema noted. Distal tip with area of eschar from healing ulcer. Left second toe with eschar from healing ulcer.) Neurologic/Psychiatric: Alert, Oriented x3 Skin: Normal Color, Warm/Dry Results Lab Laboratory Tests 02/14/19 10:49: Glucometer 206H 02/14/19 15:44: Glucometer 135H 02/14/19 20:12: Glucometer 134H 02/15/19 05:11: Glucometer 113H Microbiology 02/13/19 Blood Culture - Preliminary, Resulted No growth 02/13/19 Urine Culture - Final, Complete NO GROWTH 02/13/19 Gram Stain, Resulted Pending 02/13/19 Wound Culture - Preliminary, Resulted Culture In Progress Assessment/Plan Assessment/Plan Assess & Plan/Chief Complaint A 58 year old with left great toe osteomyelitis and cellulitis. Has been seeing wound care for debridement but infection keeps returning. Redness and swelling improved with Abx. Continue IV abx, pain, nausea medication at this time. Will schedule for left great toe amputation tomorrow. Clinical Quality Measures DVT/VTE Risk/Contraindication: Risk Factor Score Per Nursin RFS Level Per Nursing on Admit: 4+=Very High Smoking Cessation Counseling: Counseling-Symptomatic: 3-10 Minutes Discussed Options Including: SELMA Cabrales SHUTTLE TRUCK DRIVER Feb 15, 2019 10:44
[2019-02-15 12:00] VITALS: BP 156/82
[2019-02-15] MEDS: oxyCODONE/APAP 10/325MG (PERCOCET 10) TABLET PO PRN ×2 (13:41→20:24)
[2019-02-15 15:45] VITALS: BP 131/68
[2019-02-15] MEDS ORDERED: TROUGH ORDER-PHARMACY XX NR (19:00)
--- NOTE | 2019-02-15 19:14 | Progress Note-Pre Operative ---
Pre-Operative Progress Note H&P Reviewed The H&P was reviewed, patient examined and no changes noted. Date Seen by Provider: Feb 15, 2019 Time Seen by Provider: 19:00 Date H&P Reviewed: Feb 15, 2019 Time H&P Reviewed: 19:00 Pre-Operative Diagnosis: osteomyelitis left great toe NONI CAMPBELL MD Feb 15, 2019 19:14
[2019-02-15 19:46] VITALS: BP 147/73
[2019-02-15] MEDS: ATORVASTATIN 10 MG (LIPITOR) TABLET PO SCH (20:23)
[2019-02-16] VITALS (10 sets, daily range): BP systolic 120–161; BP diastolic 62–79
[2019-02-16] MEDS: NS IV 1000 ML 1,000 ML IV SCH ×3 (00:52→20:54)
[2019-02-16] MEDS: oxyCODONE/APAP 10/325MG (PERCOCET 10) TABLET PO PRN ×2 (04:34→19:40)
[2019-02-16] MEDS: fentaNYL INJECTION 100 MCG/2 ML AMP IVP PRN ×8 (04:34→22:28)
[2019-02-16] MEDS: inSUlin ASPART (NovoLOG) 1 UNIT/0.01 ML (CHARGE PER UNIT) SC SCH ×7 (06:14→22:50)
[2019-02-16] MEDS: PANTOPRAZOLE 40 MG (PROTONIX) TAB PO SCH (06:35)
[2019-02-16] MEDS: VANCOMYCIN INJECTION 1,750 MG in NS IV 500 ML 500 ML IV SCH ×2 (08:56→20:54)
[2019-02-16] MEDS: PIPERACILLIN/TAZO 4.5 GM/NS 100 ML IV SCH ×4 (08:56→16:00)
[2019-02-16] MEDS: LOSARTAN 25 MG (COZAAR) TAB PO SCH (08:58)
[2019-02-16] MEDS: PREGABALIN 100 MG (LYRICA) CAPSULE PO SCH ×3 (09:00→20:59)
[2019-02-16] MEDS: meTOproloL SUCCINATE 50 MG (TOPROL XL) TAB PO SCH ×2 (09:00→10:00)
[2019-02-16] MEDS: UMECLIDINIUM BROMIDE (INCRUSE ELLIPTA) 7'S IH SCH (10:05)
[2019-02-16] MEDS ORDERED: LACTATED RINGERS 1,000 ML IV PRN (10:41)
--- NOTE | 2019-02-16 12:52 | Progress Note-Hospitalist ---
Progress Note Progress Notes/Assess & Plan Date Seen 02/16/19 Time Seen by Provider: 12:49 Assessment & Plan The patient reports that by best estimate he is due for amputation at approximately 1330 hours. He has no complaints today. Lungs are clear to auscultation. CV is regular without murmur. Extremity shows no discoloration of the dressing. Impression: Recurrent osteomyelitis left great toe. 2.diabetes mellitus type II insulin requiring. Note: Expect amputation to move US along with regard to management and discharge. Focused Exam Lactate Level 02/13/19 18:05: Lactic Acid Level 2.80*H 02/13/19 20:00: Lactic Acid Level 1.96 RONA ENRIQUE MD Feb 16, 2019 12:52
[2019-02-16] MEDS ORDERED: proPOfol 200 MG/20 ML (DIPRIVAN) VIAL IV ONE (15:02)
[2019-02-16] MEDS ORDERED: MIDAZOLAM 2 MG/2 ML (VERSED) VIAL ONE (15:02)
[2019-02-16] MEDS ORDERED: fentaNYL INJECTION 100 MCG/2 ML AMP ONE (15:03)
--- NOTE | 2019-02-16 16:14 | CONSULTATION REPORT ---
DATE OF SERVICE: 02/14/2019 ATTENDING AND PRIMARY CARE PHYSICIAN: Ashley Haddad MD. HISTORY OF PRESENT ILLNESS: The patient is a 58-year-old male who presented to [facility] Emergency Department on 02/13/2019 with complaints of increasing redness and swelling as well as pain to the left great toe. The patient reports that for approximately the last year, he has been following up with Wound Care where he has had several debridements to the left great toe for a chronic diabetic ulcer. He reports that he has also recently finished 6 weeks of vancomycin for cellulitis. He reports that this was cultured and it did grow out staph. He reports that since finishing the vancomycin that he has been on minocycline for residual infection and reports that he has had to pack the wound with iodoform packing gauze. He reports that when he changed the dressing yesterday that he thought it was doing well, but reports that several hours later, he began having the pain, redness and swelling and reports that when he took the dressing off that he also had more of a thick pussy drainage. He denied any fever or chills. He reports that he has struggled with controlling his blood sugars in the past and reports that this has become better. In the ER, he did have an x-ray performed of the left foot, which did show osteolysis of the distal aspect of the distal phalange of the left great toe that was consistent with an osteomyelitis. He was admitted, placed on IV antibiotics and thus we were consulted. His initial white count was 14.5, but was down to 8.6 this morning. PAST MEDICAL HISTORY: COPD, interstitial lung disease, insulin-dependent diabetes, gastroesophageal reflux disease, degenerative joint disease of the back and knees and shoulder, sleep apnea, hypertension, hypercholesterolemia, coronary artery disease, neuropathy, restless leg syndrome, TIA, fibromyalgia, arthritis, anxiety, and depression. PAST SURGICAL HISTORY: Abdominal hernia repair, spine surgery x2, right knee arthroscopy, right shoulder arthroscopy, bronchoscopies with biopsies, cardiac catheterization, and left third trigger finger release. ALLERGIES: ROCEPHIN. MEDICATIONS: Albuterol 18 grams 2 puffs q.6 hours p.r.n., albuterol 2.5/3 mL q.6 hours p.r.n., atorvastatin 10 mg at bedtime, budesonide 2 puffs b.i.d. p.r.n., budesonide/formoterol 10.2 g 2 puffs b.i.d., carbamazepine 200 mg at bedtime, Zyrtec 10 mg daily, insulin aspart 20 units before meals, insulin detemir 30 units b.i.d., losartan 25 mg daily, Singulair 10 mg at bedtime, oxycodone and acetaminophen q.4 hours p.r.n., Protonix 40 mg daily, pregabalin 300 mg t.i.d., tiotropium bromide 4 g 2 puffs daily. SOCIAL HISTORY: Previous smoker, 2 packs per day, quit in 2017, but reports that he still vapes, previous alcohol abuse, but now only drinks on rare occasions, history of THC as well as benzo and opiate abuse in the past. FAMILY HISTORY: Brother, diabetes. Father, myocardial infarction. Mother, colon cancer. VITAL SIGNS: Temperature is 96.1, pulse 68, respirations 20, blood pressure is 170/85, and pulse ox is 99% on 3 liters nasal cannula. REVIEW OF SYSTEMS: GENERAL: A well-nourished male, in no acute distress. The patient is not experiencing any shortness of breath or difficulty breathing. No chest pain, palpitations, diaphoresis. No nausea, vomiting or abdominal pain. No diarrhea or constipation. No red blood per rectum, no dark tarry stools. No fever or chills. No recent weight gain or loss. He does report pain, swelling and redness of the left great toe as well as diabetic foot ulcers to the distal tips of the toes. PHYSICAL EXAMINATION: CHEST: Clear breath sounds bilaterally. HEART: Regular. No murmurs. EXTREMITIES: He does report that there is some mild erythema to the left great toe with the area of the left distal tip that does have a previous healing ulcer. This is slightly edematous with minimal pain at this time. There are also ulcers to the distal tips of the left toes. HEENT: No scleral icterus. No cervical adenopathy. ABDOMEN: Soft, nontender, nondistended. SKIN: Warm, dry and pink. NEUROLOGIC: He is awake, alert and oriented x3. ASSESSMENT AND PLAN: A 58-year-old male with type 2 diabetes requiring insulin as well as diabetic neuropathy and reoccurrence of osteomyelitis of the left great toe. At this time, we will proceed with IV antibiotics as well as pain medication for his discomfort. It was discussed with the patient about proceeding with left great toe amputation during this admission. The patient verbalized understanding of instructions and agrees to this plan. Job ID: [id number] DocumentID: [id number] Dictated Date: 02/14/2019 12:18:25 Color Checker Roving Or Yarn Date: 02/14/2019 15:11:09 Dictated By: SELMA FELIX APRN
--- NOTE | 2019-02-16 16:41 | NUR ---
Pastoral care visit.
--- NOTE | 2019-02-16 17:04 | Progress Note-Standard ---
Standard Progress Note Progress Notes/Assess & Plan Date Seen by a Provider: Feb 16, 2019 Time Seen by a Provider: 16:45 Progress/Assessment & Plan Patient seen and doing well. Reports right hip sciatic pain, but has not had his medication today due to NPO. Reports ready for his surgery. Denies any left great toe pain currently. Does have some mild erythema noted. Will proceed with left great toe amputation. Focused Exam Lactate Level 02/13/19 18:05: Lactic Acid Level 2.80*H 02/13/19 20:00: Lactic Acid Level 1.96 SELMA FELIX APRN Feb 16, 2019 17:04
[2019-02-16] MEDS ORDERED: BUP/EPI 0.5% 1:200,000 (SENSORCAINE) 30 ML VIAL ONE (17:24)
--- NOTE | 2019-02-16 17:28 | NUR ---
Patient to surgery with surgical staff per hospital bed.
[2019-02-16] MEDS ORDERED: LIDOCAINE PF 2% 5 ML (XYLOCAINE) VIAL ONE (18:02)
[2019-02-16] MEDS ORDERED: ONDANSETRON 4 MG/2 ML (SDV) Z0FRAN ONE (18:02)
[2019-02-16] MEDS ORDERED: SEVOFLURANE (ULTANE) 15 ML INHAL SOLN ONE (18:03)
[2019-02-16] MEDS ORDERED: morphine INJ 10 MG/ML 1ML (SYR OR VIAL) IVP ONE (18:15)
[2019-02-16] MEDS ORDERED: ONDANSETRON 4 MG/2 ML (SDV) Z0FRAN IVP PRN (18:15)
[2019-02-16] MEDS ORDERED: HYDROmorphone 2 MG/ML VIAL (DILAUDID) IV ONE (18:15)
--- NOTE | 2019-02-16 18:20 | Progress Note-Post Operative ---
Post-Operative Progess Note Surgeon (s)/Email Marketing Coordinator (s) Surgeon NONI CAMPBELL MD Email Marketing Coordinator: brandy tipton OPHTHALMIC MEDICAL TECHNOLOGIST Pre-Operative Diagnosis osteomyelitis left great toe Post-Operative Diagnosis same Procedure & Operative Findings Date of Procedure 02/16/19 Procedure Performed/Findings amputation left great toe Anesthesia Type general LMA Estimated Blood Loss Estimated blood loss (mL): minimal Specimens/Packing Specimens Removed left great toe NONI CAMPBELL MD Feb 16, 2019 18:20
--- NOTE | 2019-02-16 18:51 | Discharge Inst-Surgical ---
D/C Lap Instructions-SHANNAN Follow Up Appt in 2 weeks Activity as tolerated, no lifting/exertion/ambulating greater than 30 minutes at a time for up to 6 weeks. keep foot elevated/clean/dry at all times. gauze dressing followed by kerlianne marie daily and PRN. Regular ADA Diet Symptoms to Report: Fever over 101 degree F, Nausea/Vomiting Infection Signs and Symptoms to report: Increased redness, Foul odor of wound, Increased drainage Bathing instructions: May shower Operative Area Clean/Dry; Keep incision clean/dry If any problems/questions: Contact your physician or go to Emergency Room NONI CAMPBELL MD Feb 16, 2019 18:51
[2019-02-16] MEDS: ATORVASTATIN 10 MG (LIPITOR) TABLET PO SCH (20:58)
[2019-02-17] MEDS: KETOROLAC 30 MG/ML VIAL IVP PRN (00:14)
[2019-02-17] MEDS: PIPERACILLIN/TAZO 4.5 GM/NS 100 ML IV SCH ×4 (00:15→08:38)
[2019-02-17] MEDS: oxyCODONE/APAP 10/325MG (PERCOCET 10) TABLET PO PRN (02:10)
[2019-02-17 03:56] VITALS: BP 148/73
[2019-02-17] MEDS: fentaNYL INJECTION 100 MCG/2 ML AMP IVP PRN ×2 (05:35→12:09)
[2019-02-17] MEDS: NS IV 1000 ML 1,000 ML IV SCH (05:42)
[2019-02-17] MEDS: inSUlin ASPART (NovoLOG) 1 UNIT/0.01 ML (CHARGE PER UNIT) SC SCH ×2 (06:45→06:46)
[2019-02-17] MEDS: PANTOPRAZOLE 40 MG (PROTONIX) TAB PO SCH (06:46)
[2019-02-17 08:00] VITALS: BP 150/72
[2019-02-17] MEDS: UMECLIDINIUM BROMIDE (INCRUSE ELLIPTA) 7'S IH SCH (08:34)
[2019-02-17] MEDS: VANCOMYCIN INJECTION 1,750 MG in NS IV 500 ML 500 ML IV SCH (08:38)
[2019-02-17] MEDS: LOSARTAN 25 MG (COZAAR) TAB PO SCH (08:38)
[2019-02-17] MEDS: PREGABALIN 100 MG (LYRICA) CAPSULE PO SCH (08:39)
--- NOTE | 2019-02-17 10:02 | Progress Note (SOAP) ---
Subjective Date Seen by a Provider: Feb 17, 2019 Time Seen by a Provider: 09:30 Subjective/Events-last exam doing well. tolerating diet. no fever/chills. foot dressed/dry. ambulating well with walking boot. Objective Exam Vital Signs Date Time Temp Pulse Resp B/P (MAP) Pulse Ox O2 Delivery O2 Flow Rate FiO2 02/17/19 08:38 95 Nasal Cannula 3.00 02/17/19 08:00 98.2 66 20 150/72 (98) 96 Room Air 02/17/19 03:56 97.1 57 18 148/73 (98) 98 Nasal Cannula 3.00 02/16/19 23:35 97.3 60 18 161/77 (105) 100 Nasal Cannula 3.00 02/16/19 20:00 Nasal Cannula 3.00 02/16/19 19:47 97.5 62 18 134/69 (90) 100 Nasal Cannula 3.00 02/16/19 19:10 97.4 14 100 Nasal Cannula 3 02/16/19 19:00 12 100 Nasal Cannula 3 02/16/19 18:50 14 100 OxyMask 3 02/16/19 18:40 12 100 OxyMask 3 02/16/19 18:33 97.0 12 100 OxyMask 10 02/16/19 15:22 97.9 51 16 142/70 (94) 99 Nasal Cannula 3.00 02/16/19 10:05 97 Nasal Cannula 3.00 I & O 02/17/19 07:00 Intake Total 4964.5 ml Output Total 4600 ml Balance 364.5 ml Capillary Refill : Less Than 3 SecondsLess Than 3 Seconds General Appearance: No Apparent Distress HEENT: PERRL/EOMI Neck: Full Range of Motion Respiratory: Chest Non Tender, Lungs Clear, Normal Breath Sounds Cardiovascular: Regular Rate, Rhythm Gastrointestinal: normal bowel sounds, non tender, soft Extremity: Normal Capillary Refill, Other (left foot dressed/dry) Neurologic/Psychiatric: Alert, Oriented x3 Skin: Normal Color Lymphatic: No Adenopathy Results Lab Laboratory Tests 02/16/19 11:34: Glucometer 140H 02/16/19 16:47: Glucometer 138H 02/16/19 22:43: Glucometer 190H 02/17/19 05:11: Glucometer 220H 02/17/19 09:01: Glucometer 56*L Microbiology 02/13/19 Blood Culture - Preliminary, Resulted No growth 02/13/19 Urine Culture - Final, Complete NO GROWTH 02/13/19 Gram Stain - Final, Resulted 02/13/19 Wound Culture - Preliminary, Resulted Streptococcus viridans Assessment/Plan Assessment/Plan Assess & Plan/Chief Complaint left great toe osteomyelitis s/p amputation. dressing change daily and PRN. no lifting/exertion 6 weeks. should not stand/walk for greater than 30 minutes at a time. keep foot elevated. f/u in office in 2 weeks. Clinical Quality Measures DVT/VTE Risk/Contraindication: Risk Factor Score Per Nursin RFS Level Per Nursing on Admit: 4+=Very High Smoking Cessation Counseling: Counseling-Symptomatic: 3-10 Minutes Discussed Options Including: NONI Mcneill MD Feb 17, 2019 10:02
--- NOTE | 2019-02-17 11:29 | Progress Note-Hospitalist ---
Progress Note Progress Notes/Assess & Plan Date Seen 02/17/19 Time Seen by Provider: 11:26 Assessment & Plan The patient had amputation of the left great toe yesterday. He is doing quite well today and has been cleared by Dr. CAMPBELL for discharge. Physical exam: Lungs are clear to auscultation. CV is regular without murmur. Extremities show the left lower extremity to be in a dressing with out any evidence of leakage. Impression: Osteomyelitis left great toe. 2.diabetes mellitus type II insulin requiring. 3.diabetic peripheral neuropathy. Plan: Discharge. SEE discharge sequence for medications and routines. RONA ENRIQUE MD Feb 17, 2019 11:29
--- NOTE | 2019-02-17 11:56 | Wound Care Assessment ---
Wound Care Assessment Date Seen by Provider: Feb 17, 2019 Time Seen by Provider: 11:15 Chief Complaint L great toe amputation. HPI The patient is a 58 year old male, followed in out patient Wound Center for a non-healing ulcer of the L great toe. Past Medical History: Admits Diabetes Type II, Admits Heart Disease (LBBB, Previous heart caths.), Admits Peripheral Artery Disease Obstructive sleep apnea Smoking Status: Former Smoker (2 PPD--QUIT CIGARETTES IN 2017, BUT STILL "VAPES" ) Recreational Drug Use: Yes (LONG HISTORY OF THC, "SPEED" AND RX DRUG ABUSE/OVERDOSES--ALEXANDRA. BENZO'S AND OPIATES) Alcohol Use: Denies Use (LONG HISTORY OF ABUSE, CLAIMS NOW ONLY DRINKS ON "RARE OCCASIONS" ) Review of Systems Pulmonary: No Dyspnea Cardiovascular: No: Chest Pain Exam Vital Signs Date Time Temp Pulse Resp B/P (MAP) Pulse Ox O2 Delivery O2 Flow Rate FiO2 02/17/19 08:38 95 Nasal Cannula 3.00 02/17/19 08:00 98.2 66 20 150/72 (98) Capillary Refill : Less Than 3 SecondsLess Than 3 Seconds General Appearance: no apparent distress HEENT: normal ENT inspection Neck: normal inspection Respiratory: no respiratory distress Extremities: other (L foot in surgical dressing, dry and intact.) Results Laboratory Tests 02/16/19 16:47: Glucometer 138H 02/16/19 22:43: Glucometer 190H 02/17/19 05:11: Glucometer 220H 02/17/19 09:01: Glucometer 56*L 02/17/19 11:03: Glucometer 135H Microbiology 02/13/19 Blood Culture - Preliminary, Resulted No growth 02/13/19 Urine Culture - Final, Complete NO GROWTH 02/13/19 Gram Stain - Final, Resulted 02/13/19 Wound Culture - Preliminary, Resulted Streptococcus viridans Assessment/Plan/Dx 1. Osteomyelitis of L great toe, s/p amputation. 2. Diabetes, L great toe ulcer. 3. Tobacco abuse. Plan: The patient is urged to contact the Wound Center at any appearance of difficulty with amputation flaps. Consideration would be for the provision of HBOT to save flaps. KIMBER STAPLES MD Feb 17, 2019 11:56
[2019-02-17 12:00] VITALS: BP 147/71
[2019-02-17 13:24] VITALS: BP 147/71
[2019-02-17] MEDS ORDERED: TROUGH ORDER-PHARMACY XX NR (19:00)
--- NOTE | 2019-02-18 10:46 | OPERATIVE REPORT ---
DATE OF SERVICE: 02/16/2019 ATTENDING PHYSICIAN: Dr. Ashley Haddad. PREOPERATIVE DIAGNOSIS: Left great toe osteomyelitis. POSTOPERATIVE DIAGNOSIS: Left great toe osteomyelitis. PROCEDURE: Left great toe amputation. SURGEON: Noni Campbell MD. GOODS LAYER: Torrey Austin APRN. ANESTHESIA: General laryngeal mask airway. ESTIMATED BLOOD LOSS: Minimal. FINDINGS: Chronic inflammatory soft tissue and inflammatory changes around the left great toe. DISPOSITION: The patient tolerated the procedure well. INDICATIONS FOR PROCEDURES: The patient is a 58-year-old male, who presented to the emergency department with increasing redness, swelling and pain of the left great toe. This has been occurring for the past year and has been seeing wound care for this and has undergone several debridements for a chronic diabetic ulcer. He also has recently finished 6 weeks of vancomycin for cellulitis. He states that he does change his dressings daily and he is otherwise doing well; however, several hours later, he noticed some pain, swelling, redness, as we took the dressing off as well as purulent drainage from the tip of the left toe. X-ray was performed, which did show osteomyelitis of the distal phalanx of the left great toe. He was admitted and placed on IV antibiotics. With IV antibiotics, the surrounding redness, swelling, edema and cellulitis did improve. Due to the chronically inflamed bone he will always have recurrent infection and we will proceed with formal amputation of the left great toe. There were also changes identified of his other toes. It was recommended that he do proceed with a custom fitting orthotic shoes as well as seeing a all round logger on a regular basis for preventive maintenance. DESCRIPTION OF PROCEDURE: The patient was brought to the operating room and laid supine on the table. After adequate IV pain and sedative medications and general laryngeal mask airway intubation, the left foot was prepped and draped in a standard surgical fashion. A 0.5% Marcaine with epinephrine was used to anesthetize the overlying skin around the base of the left great toe. A circumferential incision was made using a 15-blade distal to the metacarpophalangeal joint. We then proceeded to dissect the subcutaneous fat pads as well as the ligaments and proceeded to dissect off of the periosteum to the level of the metacarpophalangeal joint using an elevator. The cartilaginous attachments were then taken down using electrocautery and the amputation was complete at that level using electrocautery with visualization of good hemostasis. There were no sharp edges identified and the subcutaneous tissue and skin were then reapproximated using 2-0 Prolene horizontal mattress sutures. Wound was then cleaned and covered with iodoform gauze followed by Kerlix followed by Coban and a walking shoe. The patient tolerated the procedure well. We will continue with IV antibiotics another day and have him ambulate as well as adequate pain control. Once he is ambulating well, we will discharge him home. He will be instructed to do no heavy lifting or exertion for the next six weeks. We will also arrange for a podiatry consultation. Job ID: [id number] DocumentID: [id number] Dictated Date: 02/16/2019 18:32:55 Credit Balance Specialist Date: 02/17/2019 04:59:26 Dictated By: NONI CAMPBELL MD
--- NOTE | 2019-02-20 11:02 | Physician Query Clarification ---
PQ-Conflicting Diagnosis Admission/Discharge Admission Date: February 13, 2019 at 19:00 Discharge Date: Feb 17, 2019 at 13:24 The medical record reflects the following clinical scenario: History/Risk Factors: Chronic diabetic ulcer with osteomyelitis. Cellulitis left great toe Clinical Findings: Lactic acid 2.80, WBC 14.5, Bands 1, Temp 98.3, pulse 105, resp 21, BP 147/87, blood culture-no growth Treatment: IV Vancomycin HCL, IV Zosyn and amputation of left great toe. Question: Do you agree with the impression of the Sepsis per Dr. Stanford, ED physician. Please document a response in Progress Note or Discharge Summary. 1. Yes 2. No 3. Other, with explanation of clinical findings 4. Clinically undetermined, no explanation for clinical findings. Please remember a lack of response to the above will prompt a phone page by CDI/Coding staff. In responding to this query, please exercise your independent professional judgment. The purpose of this communication is to more accurately reflect the complexity of your patients condition. The fact that a question is asked does not imply that any particular answer is desired or expected. Thank you for your timely response to this clarification. Requestors name: Martha Colby [facility] Phone # ext [phone] or [phone] THIS PHYSICIAN QUERY FORM IS A PERMANENT PART OF THE MEDICAL RECORD MARTHA COLBY Feb 20, 2019 11:02 TEDDY NEAL Feb 24, 2019 08:49
--- NOTE | 2019-02-22 16:40 | OPERATIVE REPORT ---
DATE OF SERVICE: 02/13/2019 ADDENDUM The correction is in the dictation and technologist infectious disease in the section of description of procedure, second paragraph, third line. The sentence should read, a circumferential incision was made using a 15 blade distal to the metatarsophalangeal joint. And then in continuation, we then proceeded to dissect off the periosteum to the metatarsophalangeal joint using an elevator. Please make those corrections in the dictation, if could do that I would greatly appreciate it. Job ID: [id number] DocumentID: [id number] Dictated Date: 02/22/2019 15:44:32 Executive Relations Specialist Date: 02/22/2019 16:39:40 Dictated By: NONI CAMPBELL MD
== END 2019-02-17 13:24 | disposition home or self-care (01) | DRG 617 ==
LOC: EDUNIT# 17:37 → ER 17:38 → 4TH 19:00
PROVIDERS: ADMIT Internal Medicine; ATTEND Internal Medicine
PROC: 0Y6Q0Z0 Detachment at Left 1st Toe, Complete, Open Approach (ICD-10-PCS; principal; 2019-02-16 17:31)
DX: E11.69 Type 2 diabetes mellitus with other specified complication (principal); M86.672 Other chronic osteomyelitis, left ankle and foot; E11.621 Type 2 diabetes mellitus with foot ulcer; L97.526 Non-pressure chronic ulcer of other part of left foot with bone involvement without evidence of necrosis; L03.032 Cellulitis of left toe; E11.42 Type 2 diabetes mellitus with diabetic polyneuropathy; E11.65 Type 2 diabetes mellitus with hyperglycemia; M89.572 Osteolysis, left ankle and foot; J84.9 Interstitial pulmonary disease, unspecified; J44.9 Chronic obstructive pulmonary disease, unspecified; G47.33 Obstructive sleep apnea (adult) (pediatric); I25.10 Atherosclerotic heart disease of native coronary artery without angina pectoris; I10 Essential (primary) hypertension; E78.00 Pure hypercholesterolemia, unspecified; M20.41 Other hammer toe(s) (acquired), right foot; M20.42 Other hammer toe(s) (acquired), left foot; G25.81 Restless legs syndrome; K21.9 Gastro-esophageal reflux disease without esophagitis; M79.7 Fibromyalgia; M47.9 Spondylosis, unspecified; F41.9 Anxiety disorder, unspecified; F32.9 Major depressive disorder, single episode, unspecified; B35.1 Tinea unguium; Z79.4 Long term (current) use of insulin; Z87.891 Personal history of nicotine dependence; Z77.29 Contact with and (suspected) exposure to other hazardous substances; Z86.73 Personal history of transient ischemic attack (TIA), and cerebral infarction without residual deficits; Z86.010 Personal history of colon polyps; Z91.5 Personal history of self-harm; Z86.19 Personal history of other infectious and parasitic diseases
CPT/HCPCS: 36415; 73630; 80053; 80202; 80306; 80320; 81000; 82962; 83605; 83735; 85007; 85025; 85027; 85610; 85652; 85730; 86141; 87040; 87070; 87088; 87205; 93005; 93041; 94640; 94760; 96361; 96365; 96375

== ENCOUNTER → 2019-02-24 | Outpatient (CLI) | payer MEDICARE ==
[~2019-02-24] MED LIST changes: +OXYC-464 PO
--- NOTE | 2019-02-24 12:55 | Diagnostic Imaging Report ---
PROCEDURE: CT chest with contrast only. TECHNIQUE: Multiple contiguous axial images were obtained through the chest after administration of intravenous contrast. Auto Exposure Controls were utilized during the CT exam to meet ALARA standards for radiation dose reduction. INDICATION: Six-month follow-up pulmonary nodule. COMPARISON: Study compared with outside exam dated 07/04/2018. Study also compared with 12/29/2007. FINDINGS: Sub-solid groundglass nodules adjacent and perifissural in the lingular segment of the left upper lobe measure 11 mm anteromedially and 8 mm more posterolaterally. These are unchanged dating back to 2007 confirming benignity. An area of subpleural scarring in the left upper lobe at the apex laterally is unchanged from the more recent studies. Some subpleural scarring more diffusely is chronic. Few scattered air cysts chronic. No new dominant or suspicious lung mass. A right middle lobe micronodule of 4-5 mm shows long-term stability and also benign. No thoracic adenopathy. No effusion or pneumothorax. No acute chest wall pathology. The visualized upper abdomen appears nonacute. IMPRESSION: 1. Chronic benign pulmonary nodules, which are stable from 2007. These require no further dedicated workup. 2. Chronic subpleural scarring, COPD, and scattered air cysts. 3. No pneumonia, failure, effusion, adenopathy, or acute-appearing pathology. Dictated by: Dictated on workstation # [id number]
== END ==
LOC: RAD 08:52
PROVIDERS: ATTEND Nurse Practitioner Family
DX: J44.9 Chronic obstructive pulmonary disease, unspecified (principal); J98.4 Other disorders of lung; R91.8 Other nonspecific abnormal finding of lung field; G47.33 Obstructive sleep apnea (adult) (pediatric); M35.00 Sjogren syndrome, unspecified; J84.9 Interstitial pulmonary disease, unspecified
CPT/HCPCS: 71260; 96365

== ENCOUNTER → 2019-03-10 | Outpatient (CLI) | payer MEDICARE | LOC: WOUNDCARE 08:25 | PROVIDERS: ATTEND Surgery | DX: E11.621 Type 2 diabetes mellitus with foot ulcer (principal); L97.522 Non-pressure chronic ulcer of other part of left foot with fat layer exposed; M86.472 Chronic osteomyelitis with draining sinus, left ankle and foot | CPT/HCPCS: 99213 ==

== ENCOUNTER 2019-03-12 21:28 | Inpatient (IN) | payer MEDICARE ==
[~2019-03-12] VITALS: Ht 188 cm; Wt 104.3 kg
[~2019-03-12 21:28] MED LIST changes: -AMOX-358 PO; -FAMC500T17 PO; -MINO100C2 PO; -OXYC-465 PO
--- NOTE | 2019-03-12 21:47 | NUR ---
ER. PT ALSO SEEN TODAY AND HAD LABS DRAWN. PT C/O INCREASED PAIN REDNESS AND SWELLING LEFT FOOT. PAIN RATING 8. PT ALSO C/O FEVER AT HOME AND TOOK TYLENOL. DENIES DYSPNEA AND NO ACUTE SIGHNS OF DYSPNEA NOTED. LUNGS CTA BILATERALLY. POSITIVE PULSE AND SENSATION LEFT FOOT. ON EXAM LEFT DORSAL FOOT APPEARS SLIGHTLY SWOLLEN AND PINKISH RED. PAIN RATING 8. PT HERE WITH " FIANCE". PT ALERT GCS 15. PT APPEARS ANXIOUS AND IS QUITE TALKATIVE. PT ON HOME O2 3/N/C 24/. CAME IN WITH O2 AND PT TOOK IT OFF IN ER. PT RELATES RECENT LEFT BIG TOE AMPUTATION AND SEES WOUND CLINIC FOR ONGOING WOUND LEFT BIG TOE. PT TOOK POST OP SHOE OFF IN
--- NOTE | 2019-03-12 21:53 | ED Integumentary General ---
General Chief Complaint: Skin/Wound Problems Stated Complaint: L FOOT PAIN Nursing Triage Note: LEFT FOOT WOUND Source: patient Exam Limitations: no limitations History of Present Illness Date Seen by Provider: Mar 12, 2019 Time Seen by Provider: 21:52 Initial Comments To ER with reports of left second toe pain. He had a recent amputation of the left great toe for chronic osteomyelitis. He does not recall any injury but he does notice increasing redness around the base of the second toe and some swelling of the second toe itself. He had a fever at home but none here. Currently on minocycline started today for staph epidermidis sensitive to minocycline rifampin and vancomycin. Timing/Duration: just prior to arrival Severity: moderate Associated Symptoms: denies symptoms Allergies and Home Medications Allergies Coded Allergies: ceftriaxone (Verified Allergy, Intermediate, 08/11/18) Patient experienced reaction approx. 6 hrs after receiving rocephin. He experienced redness, itching and shortness of air. Benadryl was administered and it resolved. Home Medications Albuterol Sulfate 18 Gm Hfa.aer.ad, 2 PUFF INH Q6H PRN for SHORTNESS OF BREATH, (Reported) Albuterol Sulfate 2.5 Mg/3 Ml Vial.neb, 2.5 MG NEB Q6H PRN for SHORTNESS OF BREATH, (Reported) Atorvastatin Calcium 10 Mg Tablet, 10 MG PO HS, (Reported) Budesonide/Formoterol Fumarate 10.2 Gm Hfa.aer.ad, 2 PUFF INH BID, (Reported) Insulin Aspart 100 Unit/1 Ml Susp, 20 UNITS SQ BID WITH MEALS, (Reported) Insulin Aspart 100 Unit/1 Ml Susp, 10 UNIT SQ 1200, (Reported) Insulin Determir 1,000 Units/10 Ml Soln, 30 UNITS SQ BID, (Reported) Losartan Potassium 25 Mg Tablet, 25 MG PO DAILY, (Reported) Oxycodone HCl/Acetaminophen 1 Each Tablet, 1 TAB PO TID PRN for PAIN-MODERATE, (Reported) Pantoprazole Sodium 40 Mg Tablet.dr, 40 MG PO DAILY, (Reported) Pregabalin 300 Mg Capsule, 300 MG PO TID, (Reported) Tiotropium [place] 4 Gm Mist.inhal, 2 PUFF INH DAILY, (Reported) Patient Home Medication List Home Medication List Reviewed: Yes Review of Systems Review of Systems Constitutional: see HPI, fever EENTM: see HPI Respiratory: no symptoms reported Cardiovascular: no symptoms reported Genitourinary: no symptoms reported Musculoskeletal: see HPI Skin: no symptoms reported Psychiatric/Neurological: No Symptoms Reported Past Jjiciii-Nupveh-Bosggl Hx Patient Social History Alcohol Use: Occasionally Uses Alcohol Beverage of Choice: Beer Recreational Drug Use: Yes (" MARIJUANA") Drug of Choice: CANNIBUS Smoking Status: Light Tobacco Smoker Type Used: Cigarettes, Electronic/Vapor Former Smoker, Quit: Jul 17, 2017 2nd Hand Smoke Exposure: No Recent Foreign Travel: No Contact w/Someone Who Travel: No Recent Infectious Disease Expo: No Recent Hopitalizations: No Physical Abuse: No Sexual Abuse: No Immunizations Up To Date Tetanus Booster (TDap): Less than 5yrs PED Vaccines UTD: No Date of Pneumonia Vaccine: January 20, 2013 Date of Influenza Vaccine: Jun 20, 2018 Seasonal Allergies Seasonal Allergies: Yes Past Medical History Surgeries: Yes Abdominal, Cardiac, Orthopedic Respiratory: Yes Pneumonia, Sleep Apnea, COPD Currently Using CPAP: No Currently Using BIPAP: Yes Cardiac: Yes (LBBB, CARDIAC [id number] DISEASE/NO INTERVENTION) Coronary Artery Disease, High Cholesterol, Hypertension Neurological: Yes (NEUROPATHY IN FEET; RESTLESS LEG SYNDROME) Neuropathy, TIA Reproductive Disorders: No Sexually Transmitted Disease: No HIV/AIDS: No Genitourinary: No Gastrointestinal: Yes Gastroesophageal Reflux, Hemorrhoids, Polyps Musculoskeletal: Yes Degenerate Disk Disease, Arthritis, Fibromyalgia, Chronic Back Pain Endocrine: Yes Diabetes, Insulin dep HEENT: No Loss of Vision: Denies Hearing Impairment: Hard of Hearing Cancer: No Psychosocial: Yes Anxiety, Suicide Attempts, Depression Integumentary: Yes (DIABETIC FOOT ULCERS/CELLULITIS/OSTEOMYELITIS; MRSA) Blood Disorders: No Adverse Reaction/Blood Tranf: No Family Medical History Cancer 03 MOTHER Cancer of colon 03 MOTHER Cataract 03 MOTHER Chest pain 03 FATHER Family history: Cardiovascular disease 03 FATHER Family history: Diabetes mellitus 09 BROTHER Headache 03 FATHER 03 MOTHER 09 BROTHER 09 BROTHER Heart disease 03 FATHER Myocardial infarction 03 FATHER Stroke 09 BROTHER No Family History of: Abdominal aortic aneurysm Hi's disease Alcoholism Aphasia Congenital heart disease Congestive heart failure Cystic fibrosis Dementia Dysphagia Family history: Allergy Family history: Alzheimer's disease Family history: Arthritis Family history: Asthma Family history: Breast disease Family history: Coronary thrombosis Family history: Gastrointestinal disease Family history: Glaucoma Family history: Hypertension Family history: Osteoporosis Family history: Thyroid disorder Hearing loss Hereditary disease History of - anemia History of - disorder History of - respiratory disease History of drug abuse Human immunodeficiency virus (HIV) seropositivity Hypercholesterolemia Infertile Kidney disease Malignant neoplasm of lung Parkinson's disease Prostate cancer Psychotic disorder Seizure disorder Tuberculosis Visual impairment No Pertinent Family Hx Physical Exam Vital Signs Vital Signs - First Documented 03/12/19 21:41 Temp 97.3 Pulse 94 Resp 16 B/P (MAP) 148/79 (102) Pulse Ox 94 O2 Delivery Room Air Capillary Refill : Less Than 3 Seconds General Appearance: WD/WN, no apparent distress Neck: non-tender, full range of motion Respiratory: no respiratory distress, no accessory muscle use Neurologic/Psychiatric: alert, normal mood/affect, oriented x 3 Skin: normal color, warm/dry Skin Problem Character: other (there is circumferential swelling of the left second toe. The site of prior amputation of the left great toe clean and without surrounding erythema, there is about a 4 mm section of partial wound dehiscence to the lateral aspect of it but no drainage. Overall looks very good. There is about 2 cm of erythema that extends proximally beyond the MTP joint of the seco nd and third toes.) Progress/Results/Core Measures Results/Orders Lab Results Laboratory Tests Test 03/12/19 21:45 Range/Units White Blood Count 21.3 H 4.3-11.0 10^3/uL Red Blood Count 5.29 4.35-5.85 10^6/uL Hemoglobin 15.1 13.3-17.7 G/DL Hematocrit 43 40-54 % Mean Corpuscular Volume 82 80-99 FL Mean Corpuscular Hemoglobin 29 25-34 PG Mean Corpuscular Hemoglobin Concent 35 32-36 G/DL Red Cell Distribution Width 15.0 H 10.0-14.5 % Platelet Count 248 130-400 10^3/uL Mean Platelet Volume 11.1 H 7.4-10.4 FL Neutrophils (%) (Auto) 75 42-75 % Lymphocytes (%) (Auto) 18 12-44 % Monocytes (%) (Auto) 5 0-12 % Eosinophils (%) (Auto) 1 0-10 % Basophils (%) (Auto) 0 0-10 % Neutrophils # (Auto) 16.0 H 1.8-7.8 X 10^3 Lymphocytes # (Auto) 3.8 1.0-4.0 X 10^3 Monocytes # (Auto) 1.2 H 0.0-1.0 X 10^3 Eosinophils # (Auto) 0.3 0.0-0.3 10^3/uL Basophils # (Auto) 0.1 0.0-0.1 10^3/uL Neutrophils % (Manual) 71 % Lymphocytes % (Manual) 22 % Monocytes % (Manual) 6 % Eosinophils % (Manual) 1 % Blood Morphology Comment NORMAL My Orders Orders - IVÁN GRACE SPECIAL DELIVERY MESSENGER Cbc With Automated Diff (03/12/19 21:48) Ed Iv/Invasive Line Start (03/12/19 21:48) Fentanyl Injection (Sublimaze Injection (03/12/19 22:00) Clindamycin 900 Mg/50 Ml Ivpb (Cleocin P (03/12/19 22:00) Doxycycline Injection (Vibramycin Inject (03/12/19 22:00) Manual Differential (03/12/19 21:45) Vancomycin Injection (Vancomycin Injecti (03/12/19 22:30) Lactic Acid Analyzer (03/12/19 22:25) Blood Culture (03/12/19 22:25) Lactated Ringers (Lr 1000 Ml Iv Solution (03/12/19 22:30) Comprehensive Metabolic Panel (03/12/19 22:28) Medications Given in ED Current Medications Medications Dose Ordered Sig/Gale Route Start Time Stop Time Status Last Admin Dose Admin Doxycycline Hyclate 100 mg/ Sodium Chloride 100 ml @ 100 mls/hr ONCE ONCE IV 03/12/19 22:00 03/12/19 22:59 03/12/19 22:18 100 MLS/HR Fentanyl Citrate 75 mcg ONCE ONCE IVP 03/12/19 22:00 03/12/19 22:01 DC 03/12/19 22:15 75 MCG Vital Signs/I&O 03/12/19 21:41 Temp 97.3 Pulse 94 Resp 16 B/P (MAP) 148/79 (102) Pulse Ox 94 O2 Delivery Room Air Blood Pressure Mean: 102 Departure Communication (Admissions) Time/Spoke to Admitting Phy: 22:[address] Mary, we'll admit He did have an x-ray done today at his wound care appointment. He was prescribed minocycline at that time based on culture and sensitivity reports showing the staph epidermidis. 2235-white count has come back elevated from the 13,000 earlier today. Based on results of recent wound culture he was given doxycycline and vancomycin in the emergency room Staph epid INTERP OXACILLIN R PENICILLIN G R CEFAZOLIN R Minocycline S CLINDAMYCIN R ERYTHROMYCIN R LINEZOLID R VANCOMYCIN S LEVOFLOXACIN R MOXIFLOXACIN S RIFAMPIN S Impression Primary Impression: Sepsis Qualified Codes: A41.9 - Sepsis, unspecified organism Additional Impressions: Toe fracture, left Qualified Codes: S92.512A - Displaced fracture of proximal phalanx of left lesser toe(s), initial encounter for closed fracture Cellulitis of left foot Disposition: HOME, SELF-CARE Condition: Stable Admissions Decision to Admit Reason: Admit from ER (General) Decision to Admit/Date: Mar 12, 2019 Time/Decision to Admit Time: 22:38 Departure-Patient Inst. Referrals: JULIET RODRIGUEZ MD (PCP/Family) Primary Care Physician IVÁN GRACE APRN Mar 12, 2019 21:53
[2019-03-12] MEDS ORDERED: fentaNYL INJECTION 100 MCG/2 ML AMP IVP ONE (22:00)
[2019-03-12] MEDS ORDERED: CLINDAMYCIN 900 MG/50 ML IVPB 50 ML IV ONE (22:00)
[2019-03-12] MEDS ORDERED: DOXYCYCLINE INJECTION 100 MG in NS (IVPB) 100 ML IV ONE (22:00)
[2019-03-12 22:04] LABS: BASOPHILS # (AUTO) 0.1 10^3/uL (0.0-0.1); BASOPHILS % (AUTO) 0 % (0-10); EOSINOPHILS # (AUTO) 0.3 10^3/uL (0.0-0.3); EOSINOPHILS % (AUTO) 1 % (0-10); HEMATOCRIT 43 % (40-54); HEMOGLOBIN 15.1 G/DL (13.3-17.7); LYMPHOCYTES # (AUTO) 3.8 X 10^3 (1.0-4.0); LYMPHOCYTES % (AUTO) 18 % (12-44); MEAN CORPUSCULAR HEMOGLOBIN 29 PG (25-34); MEAN CORPUSCULAR HGB CONC 35 G/DL (32-36); MEAN CORPUSCULAR VOLUME 82 FL (80-99); MEAN PLATELET VOLUME 11.1 FL (7.4-10.4); MONOCYTES # (AUTO) 1.2 X 10^3 (0.0-1.0); MONOCYTES % (AUTO) 5 % (0-12); NEUTROPHILS % (AUTO) 75 % (42-75); PLATELET COUNT 248 10^3/uL (130-400); WHITE BLOOD COUNT 21.3 10^3/uL (4.3-11.0)
[2019-03-12 22:30] LABS: EOSINOPHILS % (MANUAL) 1 %; LYMPHOCYTES % (MANUAL) 22 %; MONOCYTES % (MANUAL) 6 %; NEUTROPHILS % (MANUAL) 71 %
[2019-03-12] MEDS ORDERED: VANCOMYCIN INJECTION 1,000 MG in NS (IVPB) 250 ML IV SCH (22:30)
[2019-03-12] MEDS ORDERED: LACTATED RINGERS 1,000 ML IV SCH (22:30)
[2019-03-12 22:31] LABS: RBC MORPH NORMAL
--- NOTE | 2019-03-12 22:34 | NUR ---
SAID HE IS CANCELLING THE CLINDMYCIN
--- NOTE | 2019-03-12 22:44 | NUR ---
PT CANT UA YET
[2019-03-12 22:46] LABS: ALANINE AMINOTRANSFERASE 15 U/L (0-55); ALBUMIN 4.5 GM/DL (3.2-4.5); ALKALINE PHOSPHATASE 80 U/L (40-136); BILIRUBIN,TOTAL 0.7 MG/DL (0.1-1.0); BUN/CREATININE RATIO 16; CALCIUM 9.9 MG/DL (8.5-10.1); CARBON DIOXIDE 23 MMOL/L (21-32); CHLORIDE 102 MMOL/L (98-107); CREATININE SERUM 0.87 MG/DL (0.60-1.30); GFR ESTIMATED > 60; GLUCOSE 91 MG/DL (70-105); SODIUM 137 MMOL/L (135-145); TOTAL PROTEIN 7.6 GM/DL (6.4-8.2)
--- NOTE | 2019-03-12 22:46 | NUR ---
PT REMAINS ALERT GCS 15 AND QUITE TALKATIVE, FIANCE REMAINS IN THE ROOM. PT RELATES PAIN MEDS HELPED. PAIN RATING 4 CURRENTLY. NO ACUTE SIGHNS OF DYSPNEA NOTED. LAB IN DOING LABS. PT HAS O2 ON 3/N/C. LR BOLUS STARTED AND DOXYCYCLINE 1/2 COMPLETED.
[2019-03-12 22:48] VITALS: BP 130/67
--- NOTE | 2019-03-12 22:58 | NUR ---
I JUST CALLED REPORT TO ADMIT NURSE NEVAEH. ROOM IS GETTING CLEANED BUT WILL BE DONE IN APPROX 10 MIN. I WILL FINISH THE DOXYCYCLINE AND START THE VANCO THEN GET PT TO ADMIT ROOM.
--- NOTE | 2019-03-12 23:06 | NUR ---
PT HAS ABOUT 10 MIN. LEFT ON THE DOXYCYCLINE THEN I WILL SYART THE VANCO.
--- NOTE | 2019-03-12 23:14 | NUR ---
doxy completed and vanco started. i will have someone take pt to admit room. lr bolus, vanco, and o2 continue to floor.
--- NOTE | 2019-03-12 23:23 | NUR ---
ANOTHER NURSE CHEMA WILL MAKE SURE PT GETS TO ADMIT ROOM.
[2019-03-13] VITALS (7 sets, daily range): BP systolic 109–140; BP diastolic 67–75
--- NOTE | 2019-03-13 00:02 | NUR ---
EHSAN ZUÑIGA admitted to room 428-1, with an admitting diagnosis of SEPSIS, CELLULITIS LEFT FOOT, LEFT TOE FRACTURE , on 03/12/19 from ED via , accompanied by STAFF. EHSAN ZUÑIGA introduced to surroundings, call light, bed controls, phone, TV, temperature control, lights, meal times, smoking policy, visitor policy, side rail policy, bathrooms and showers. Patient Rights given to patient in the handbook.EHSAN ZUÑIGA verbalizes understanding that [facility] is not responsible for the loss or damage to any personal effects or valuables that are kept in the patients posession during their hospitalization.
[2019-03-13] MEDS ORDERED: IBUPROFEN 600 MG (MOTRIN) TAB PO PRN (00:15)
[2019-03-13] MEDS ORDERED: NOREPINEPHRINE 4 MG in NS (IVPB) 250 ML IV SCH (00:15)
[2019-03-13] MEDS ORDERED: NS IV 1000 ML 1,000 ML IV SCH (00:15)
[2019-03-13] MEDS ORDERED: NS IV 1000 ML 2,993.7 ML IV ONE (00:15)
[2019-03-13] MEDS ORDERED: ONDANSETRON 4 MG/2 ML (SDV) Z0FRAN IV PRN (00:15)
[2019-03-13] MEDS: oxyCODONE/APAP 10/325MG (PERCOCET 10) TABLET PO PRN ×4 (00:25→21:08)
[2019-03-13] MEDS: LACTATED RINGERS 1,000 ML IV SCH ×4 (00:26→21:35)
[2019-03-13] MEDS ORDERED: PIPERACILLIN/TAZO 4.5 GM/NS 100 ML IV ONE ×2 (00:30)
[2019-03-13] MEDS ORDERED: PIPERACILLIN/TAZO 4.5 GM VIAL (ZOSYN) IV ONE ×2 (00:37→06:14)
[2019-03-13] MEDS ORDERED: NS (IVPB) 100 ML ONE ×2 (00:37→06:14)
[2019-03-13] MEDS: fentaNYL INJECTION 100 MCG/2 ML AMP IV PRN ×6 (00:54→21:37)
[2019-03-13] MEDS: PIPERACILLIN/TAZOBACTAM (BULK) 4.5 GM in NS (IVPB) 100 ML IV SCH ×3 (06:28→21:36)
[2019-03-13] MEDS: inSUlin ASPART (NovoLOG) 1 UNIT/0.01 ML (CHARGE PER UNIT) SC SCH ×6 (06:31→21:00)
[2019-03-13 06:49] LABS: BASOPHILS # (AUTO) 0.1 10^3/uL (0.0-0.1); BASOPHILS % (AUTO) 1 % (0-10); EOSINOPHILS # (AUTO) 0.4 10^3/uL (0.0-0.3); EOSINOPHILS % (AUTO) 3 % (0-10); HEMATOCRIT 41 % (40-54); HEMOGLOBIN 13.8 G/DL (13.3-17.7); LYMPHOCYTES # (AUTO) 2.9 X 10^3 (1.0-4.0); LYMPHOCYTES % (AUTO) 25 % (12-44); MEAN CORPUSCULAR HEMOGLOBIN 28 PG (25-34); MEAN CORPUSCULAR HGB CONC 34 G/DL (32-36); MEAN CORPUSCULAR VOLUME 84 FL (80-99); MEAN PLATELET VOLUME 11.3 FL (7.4-10.4); MONOCYTES # (AUTO) 0.8 X 10^3 (0.0-1.0); MONOCYTES % (AUTO) 7 % (0-12); NEUTROPHILS # (AUTO) 7.4 X 10^3 (1.8-7.8); NEUTROPHILS % (AUTO) 64 % (42-75); PLATELET COUNT 198 10^3/uL (130-400); RED CELL DISTRIBUTION WIDTH 15.4 % (10.0-14.5); WHITE BLOOD COUNT 11.6 10^3/uL (4.3-11.0)
[2019-03-13 07:11] LABS: ALANINE AMINOTRANSFERASE 13 U/L (0-55); ALKALINE PHOSPHATASE 74 U/L (40-136); BILIRUBIN,TOTAL 0.7 MG/DL (0.1-1.0); BUN/CREATININE RATIO 15; CARBON DIOXIDE 19 MMOL/L (21-32); CHLORIDE 105 MMOL/L (98-107); CREATININE SERUM 0.75 MG/DL (0.60-1.30); GFR ESTIMATED > 60; GLUCOSE 137 MG/DL (70-105); POTASSIUM 3.9 MMOL/L (3.6-5.0); SODIUM 136 MMOL/L (135-145); TOTAL PROTEIN 6.8 GM/DL (6.4-8.2)
--- NOTE | 2019-03-13 08:19 | NUR ---
PTD VANCOMYCIN LABS: SCR 0.75 WBC 11.6 (21.3) PLAN: VANCOMYCIN 15MG/KG (1,500MG) IV Q 12 HOURS, PATIENT RECEIVED 1,000MG IN ED ON 03/12 @ 2319, WE WILL START NEW DOSING NOW AND CHECK A TROUGH LEVEL ON 03/14 @ 0800.
[2019-03-13] MEDS ORDERED: PREGABALIN 100 MG (LYRICA) CAPSULE PO SCH (09:00)
[2019-03-13] MEDS ORDERED: VANCOMYCIN 2000 MG/NS 500 ML IVPB IV SCH ×2 (09:00)
[2019-03-13] MEDS ORDERED: meTOproloL SUCCINATE 50 MG (TOPROL XL) TAB PO SCH (09:00)
[2019-03-13] MEDS: VANCOMYCIN 1500 MG/NS 500 ML IVPB IV SCH ×4 (09:43→21:09)
--- NOTE | 2019-03-13 10:31 | History & Physical-Hospitalist ---
History of Present Illness HPI/Chief Complaint Chief complaint: Left foot cellulitis status post recent left great toe amputation due to osteomyelitis History of present illness: This is a 58-year-old white male Dr. Haddad [facility] who presented to the ER with left foot pain and redness consistent with cellulitis. He was found to have significant cellulitis involving the amputation site in addition to a fracture of the second toe so he was admitted placed on IV antibiotics and Dr. Nava will be consulted. The antibiotics have already improved the cellulitis of great deal. He does see Dr. Ackerman on a regular basis. We have restarted all of his home medications including his insulin. He does sleep with his sleep apnea machine. Source: patient Exam Limitations: no limitations Date Seen 03/13/19 Time Seen by a Provider: 09:45 Attending Physician Nory Mary Lisa A MD Referring Physician Date of Admission Mar 12, 2019 at 22:43 Home Medications & Allergies Home Medications Reviewed patient Home Medication Reconciliation performed by pharmacy medication reconciliations support technician and/or nursing. Patients Allergies have been reviewed. Allergies Allergies Coded Allergies ceftriaxone (Verified Allergy, Intermediate, 08/11/18) Patient experienced reaction approx. 6 hrs after receiving rocephin. He experienced redness, itching and shortness of air. Benadryl was administered and it resolved. Past Hxymzpa-Pinqtx-Jkubre Hx Past Med/Social Hx: Reviewed Nursing Past Med/Soc Hx, Reviewed and Corrections made Patient Social History Marrital Status: cohabiting Alcohol Use: Occasionally Uses Alcohol Beverage of Choice: Beer Recreational Drug Use: Yes (" MARIJUANA") Drug of Choice: CANNIBUS Smoking Status: Light Tobacco Smoker Former Smoker, Quit: Jul 17, 2017 Type Used: Cigarettes, Electronic/Vapor 2nd Hand Smoke Exposure: No Recent Foreign Travel: No Contact w/other who traveled: No Recent Hopitalizations: No Recent Infectious Disease Expo: No Immunizations Up To Date Tetanus Booster (TDap): Less than 5yrs Pediatric: No Date of Pneumonia Vaccine: January 20, 2013 Date of Influenza Vaccine: Jun 20, 2018 Seasonal Allergies Seasonal Allergies: Yes Past Medical History Surgeries: Abdominal, Cardiac, Orthopedic Respiratory: Sleep Apnea Currently Using CPAP: No Currently Using BIPAP: Yes Cardiac: Coronary Artery Disease, High Cholesterol, Hypertension Neurological: Neuropathy, TIA Reproductive: No Sexually Transmitted Disease: No HIV/AIDS: No Gastrointestinal: Gastroesophageal Reflux, Hemorrhoids, Polyps Musculoskeletal: Degenerate Disk Disease, Arthritis, Fibromyalgia, Chronic Back Pain Endocrine: Diabetes, Insulin dep Loss of Vision: Denies Hearing Impairment: Hard of Hearing Psychosocial: Anxiety, Suicide Attempts, Depression History of Blood Disorders: No Adverse Reaction to Blood Benavides: No Family History Cancer 03 MOTHER Cancer of colon 03 MOTHER Cataract 03 MOTHER Chest pain 03 FATHER Family history: Cardiovascular disease 03 FATHER Family history: Diabetes mellitus 09 BROTHER Headache 03 FATHER 03 MOTHER 09 BROTHER 09 BROTHER Heart disease 03 FATHER Myocardial infarction 03 FATHER Stroke 09 BROTHER No Family History of: Abdominal aortic aneurysm Hi's disease Alcoholism Aphasia Congenital heart disease Congestive heart failure Cystic fibrosis Dementia Dysphagia Family history: Allergy Family history: Alzheimer's disease Family history: Arthritis Family history: Asthma Family history: Breast disease Family history: Coronary thrombosis Family history: Gastrointestinal disease Family history: Glaucoma Family history: Hypertension Family history: Osteoporosis Family history: Thyroid disorder Hearing loss Hereditary disease History of - anemia History of - disorder History of - respiratory disease History of drug abuse Human immunodeficiency virus (HIV) seropositivity Hypercholesterolemia Infertile Kidney disease Malignant neoplasm of lung Parkinson's disease Prostate cancer Psychotic disorder Seizure disorder Tuberculosis Visual impairment No Pertinent Family Hx Review of Systems Constitutional: see HPI EENTM: no symptoms reported Respiratory: no symptoms reported Cardiovascular: no symptoms reported Gastrointestinal: no symptoms reported Genitourinary: no symptoms reported Musculoskeletal: joint pain Skin: no symptoms reported Psychiatric/Neurological: No Symptoms Reported All Other Systems Reviewed Negative Unless Noted: Yes Physical Exam Physical Exam Vital Signs Vital Signs - First Documented 03/12/19 03/12/19 21:41 22:48 Temp 97.3 Pulse 94 Resp 16 B/P (MAP) 148/79 (102) Pulse Ox 94 O2 Delivery Room Air O2 Flow Rate 3.00 Capillary Refill : Less Than 3 SecondsLess Than 3 Seconds Height, Weight, BMI Height: 6'2.00" Weight: 230lbs. 0.0oz. [id number]; 29.5 BMI Method:Stated General Appearance: No Apparent Distress, WD/WN, Chronically ill Eyes: Right Eye Normal Inspection, Right Eye PERRL HEENT: PERRL/EOMI, Normal ENT Inspection, Pharynx Normal, Moist Mucous Memb ranes Neck: Full Range of Motion, Normal Inspection, Non Tender Respiratory: Chest Non Tender, Lungs Clear, Normal Breath Sounds, No Accessory Muscle Use, No Respiratory Distress Cardiovascular: Regular Rate, Rhythm, No Edema, No Gallop, No JVD, No Murmur, Normal Peripheral Pulses Gastrointestinal: Normal Bowel Sounds, No Organomegaly, No Pulsatile Mass, Non Tender, Soft Back: Normal Inspection, No CVA Tenderness, No Vertebral Tenderness Extremity: Normal Capillary Refill, Normal Inspection, Normal Range of Motion, Non Tender, No Calf Tenderness, No Pedal Edema, Swelling (left foot with edema and erythema) Neurologic/Psychiatric: Alert, Oriented x3, No Motor/Sensory Deficits, Normal Mood/Affect Skin: Normal Color, Warm/Dry Lymphatic: No Adenopathy Results Results/Procedures Labs Laboratory Tests 03/12/19 21:45 03/13/19 05:35 Patient resulted labs reviewed. Assessment/Plan Admission Diagnosis Assessment: Cellulitis of the left foot around recent amputation site of left great toe Fracture second toe Diabetes mellitus insulin requiring CAD RENAE on BiPAP Plan: IV antibiotics Dr. Nava consultation Home meds Monitor closely Admission Status: Inpatient Order (span 2 midnights) Reason for Inpatient Admission: Cellulitis in recent amputation foot Diagnosis/Problems Diagnosis/Problems (1) Cellulitis of left foot Status: Acute (2) RENAE treated with BiPAP Status: Chronic (3) Toe fracture, left Status: Acute Qualifiers: Encounter type: initial encounter Toe: lesser toe Fracture type: closed Phalanx: proximal Fracture alignment: displaced Qualified Codes: S92.512A - Displaced fracture of proximal phalanx of left lesser toe(s), initial encounter for closed fracture (4) Sepsis Status: Acute Qualifiers: Sepsis type: sepsis due to unspecified organism Qualified Codes: A41.9 - Sepsis, unspecified organism (5) Interstitial lung disease (6) Diabetes mellitus Status: Acute Clinical Quality Measures DVT/VTE Risk/Contraindication: Risk Factor Score Per Nursin RFS Level Per Nursing on Admit: 4+=Very High Smoking Cessation Counseling: Counseling-Symptomatic: 3-10 Minutes Discussed Options Including: NORY Sheldon DO Mar 13, 2019 10:31
[2019-03-13] MEDS ORDERED: MINO100C2 PO (10:51)
[2019-03-13] MEDS ORDERED: BUDE8.43 NS (10:51)
[2019-03-13] MEDS ORDERED: FAMC500T17 PO (10:51)
[2019-03-13] MEDS ORDERED: VANCOMYCIN 1 GM/NS 250 ML IVPB IV SCH ×2 (11:00)
--- NOTE | 2019-03-13 11:08 | NUR ---
SPOKE WITH PATIENT WELL GOING OVER EXTERNAL MED HISTORY. I ALSO CALLED [facility] TO VERIFY HIS LEVEMIR DOSE AND DATES FOR THE MEDS LISTED BELOW. MINOCYCLINE WAS PRESCRIBED ON 03-12-2018 BUT HE INDICATED IT WAS NOT PICKED UP BECAUSE HE STILL HAD SOME AT HOME. FAMCICLOVIR WAS ALSO PRESCRIBED, BUT THE PATIENT SAID HE DID NOT GET IT BECAUSE HE DID NOT HAVE SHINGLES. 07-19-2018 LEVEMIR 50 UNITS DAILY 09-14-2018 SPIRIVA 2 PUFFS DAILY 12-16-2018 PROTONIX 1 DAILY # 30/30DS OTC MEDICATIONS: RHINOCORT
[2019-03-13] MEDS ORDERED: OXYC-465 PO (11:33)
[2019-03-13] MEDS ORDERED: RT-ALBUTEROL SULF 2.5 MG/3 ML PRE-MIX VIAL INH PRN (11:45)
[2019-03-13] MEDS ORDERED: RT-ALBUTEROL SULF 2.5 MG/3 ML PRE-MIX VIAL IH PRN (11:45)
[2019-03-13] MEDS: PREGABALIN 100 MG (LYRICA) CAPSULE PO SCH ×2 (13:40→21:09)
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
[2019-03-13] MEDS: RT-ADVAIR HFA 115/21 MCG PER PUFF IH SCH (20:13)
[2019-03-14] VITALS: BP 132/75
[2019-03-14] MEDS: LACTATED RINGERS 1,000 ML IV SCH (04:32)
[2019-03-14 04:39] VITALS: BP 131/75
[2019-03-14] MEDS: inSUlin ASPART (NovoLOG) 1 UNIT/0.01 ML (CHARGE PER UNIT) SC SCH ×4 (06:11→12:50)
[2019-03-14] MEDS: oxyCODONE/APAP 10/325MG (PERCOCET 10) TABLET PO PRN ×2 (06:21→12:51)
[2019-03-14] MEDS: PIPERACILLIN/TAZOBACTAM (BULK) 4.5 GM in NS (IVPB) 100 ML IV SCH (06:21)
[2019-03-14 08:00] VITALS: BP 149/72
[2019-03-14] MEDS ORDERED: UMECLIDINIUM BROMIDE (INCRUSE ELLIPTA) 7'S IH SCH (08:00)
[2019-03-14] MEDS ORDERED: TROUGH ORDER-PHARMACY XX ONE (08:00)
[2019-03-14] MEDS: fentaNYL INJECTION 100 MCG/2 ML AMP IV PRN (08:41)
[2019-03-14] MEDS: PREGABALIN 100 MG (LYRICA) CAPSULE PO SCH ×2 (08:42→12:51)
--- NOTE | 2019-03-14 08:55 | NUR ---
Vancomycin - Trough 12.1, will increase dose to 1750mg every 12 hours. repeat trough prior 3rd dose which would 03/15 @ 0800.
[2019-03-14] MEDS ORDERED: PANTOPRAZOLE 40 MG (PROTONIX) TAB PO SCH (09:00)
[2019-03-14] MEDS ORDERED: FLUTICASONE NASAL SPRAY (FLONASE) 16 GM BTL NS SCH (09:00)
[2019-03-14] MEDS ORDERED: VANCOMYCIN 1,750 MG/NS 500 ML IVPB IV SCH ×2 (09:00)
[2019-03-14] MEDS ORDERED: LOSARTAN 25 MG (COZAAR) TAB PO SCH (09:00)
[2019-03-14] MEDS ORDERED: meTOproloL SUCCINATE 50 MG (TOPROL XL) TAB PO SCH (09:00)
[2019-03-14] MEDS: RT-ADVAIR HFA 115/21 MCG PER PUFF IH SCH (10:02)
[2019-03-14 12:00] VITALS: BP 129/91
--- NOTE | 2019-03-14 12:41 | Progress Note-Hospitalist ---
Subjective HPI/CC On Admission Date Seen by Provider: Mar 14, 2019 Time Seen by Provider: 10:30 Chief complaint: Left foot cellulitis status post recent left great toe amputation due to osteomyelitis History of present illness: This is a 58-year-old white male Dr. Haddad [facility] who presented to the ER with left foot pain and redness consistent with cellulitis. He was found to have significant cellulitis involving the amputation site in addition to a fracture of the second toe so he was admitted placed on IV antibiotics and Dr. Nava will be consulted. The antibiotics have already improved the cellulitis of great deal. He does see Dr. Ackerman on a regular basis. We have restarted all of his home medications including his insulin. He does sleep with his sleep apnea machine. Focused Exam Lactate Level 03/12/19 21:45: Lactic Acid Level 1.17 Objective Exam Vital Signs Vital Signs Date Time Temp Pulse Resp B/P (MAP) Pulse Ox O2 Delivery O2 Flow Rate FiO2 03/14/19 12:51 98.0 03/14/19 12:00 62 20 129/91 (104) 100 Nasal Cannula 2.00 03/13/19 20:14 21 Capillary Refill : Less Than 3 SecondsLess Than 3 Seconds General Appearance: No Apparent Distress, WD/WN, Chronically ill HEENT: PERRL/EOMI, Normal ENT Inspection, Pharynx Normal, Moist Mucous Membranes Neck: Full Range of Motion, Normal Inspection, Non Tender Respiratory: Chest Non Tender, Lungs Clear, Normal Breath Sounds, No Accessory Muscle Use, No Respiratory Distress Cardiovascular: Regular Rate, Rhythm, No Edema, No Gallop, No JVD, No Murmur, Normal Peripheral Pulses Gastrointestinal: Normal Bowel Sounds, No Organomegaly, No Pulsatile Mass, Non Tender, Soft Back: Normal Inspection, No CVA Tenderness, No Vertebral Tenderness Extremity: Normal Capillary Refill, Normal Inspection, Normal Range of Motion, Non Tender, No Calf Tenderness, No Pedal Edema, Swelling (left foot with edema and erythema) Neurologic/Psychiatric: Alert, Oriented x3, No Motor/Sensory Deficits, Normal Mood/Affect Skin: Normal Color, Warm/Dry Lymphatic: No Adenopathy Results/Procedures Lab Patient resulted labs reviewed. Diagnosis/Problems Diagnosis/Problems (1) Cellulitis of left foot Status: Acute (2) RENAE treated with BiPAP Status: Chronic (3) Toe fracture, left Status: Acute Qualifiers: Encounter type: initial encounter Toe: lesser toe Fracture type: closed Phalanx: proximal Fracture alignment: displaced Qualified Codes: S92.512A - Displaced fracture of proximal phalanx of left lesser toe(s), initial encounter for closed fracture (4) Sepsis Status: Acute Qualifiers: Sepsis type: sepsis due to unspecified organism Qualified Codes: A41.9 - Sepsis, unspecified organism (5) Interstitial lung disease (6) Diabetes mellitus Status: Acute Clinical Quality Measures DVT/VTE Risk/Contraindication: Risk Factor Score Per Nursin RFS Level Per Nursing on Admit: 4+=Very High Smoking Cessation Counseling: Counseling-Symptomatic: 3-10 Minutes Discussed Options Including: SHANNON Sheldon DO Mar 14, 2019 12:41
[2019-03-14] MEDS ORDERED: OXYC-465 PO (13:03)
[2019-03-14] MEDS ORDERED: AMOX-358 PO (13:03)
--- NOTE | 2019-03-14 13:04 | Discharge Summary-Hospitalist ---
Diagnosis/Chief Complaint Date of Admission Mar 12, 2019 at 22:43 Date of Discharge Discharge Date: Mar 14, 2019 Admission Diagnosis Assessment: Cellulitis of the left foot around recent amputation site of left great toe Fracture second toe Diabetes mellitus insulin requiring CAD RENAE on BiPAP Plan: IV antibiotics Dr. Nava consultation Home meds Monitor closely Discharge Diagnosis (1) Cellulitis of left foot Status: Acute (2) RENAE treated with BiPAP Status: Chronic (3) Toe fracture, left Status: Acute (4) Sepsis Status: Acute (5) Interstitial lung disease (6) Diabetes mellitus Status: Acute Discharge Summary Discharge Physical Exam Allergies: Coded Allergies: ceftriaxone (Verified Allergy, Intermediate, 08/11/18) Patient experienced reaction approx. 6 hrs after receiving rocephin. He experienced redness, itching and shortness of air. Benadryl was administered and it resolved. Vitals & I&Os Vital Signs Date Time Temp Pulse Resp B/P (MAP) Pulse Ox O2 Delivery O2 Flow Rate FiO2 03/14/19 12:51 98.0 03/14/19 12:00 62 20 129/91 (104) 100 Nasal Cannula 2.00 03/13/19 20:14 21 General Appearance: No Apparent Distress, WD/WN, Chronically ill Skin: Other Neurologic/Psychiatric: Alert, Oriented x3, No Motor/Sensory Deficits, Normal Mood/Affect Hospital Course Was the Problem List Reviewed?: Yes Hospital course: Patient had an uneventful hospital course after he was admitted through the ER with cellulitis of the left foot status post recent right toe amputation due to severe osteomyelitis and unable to save the toe performed by Dr. Nava who was placed empirically on broad-spectrum antibiotics and stabilized. Sepsis was treated fully. Patient was doing well bowels are moving eating and drinking well and he was assessed to be improving but he started asking for more pain medication which he is on chronic oxycodone and I was uncomfortable with initiating more pain medication when everything really was resolved so he was discharged in improved condition cellulitis nearly resolved to the left foot and patient was discharged on Augmentin 875 mg twice daily in addition to only 10 pills of the chronic pain medication he takes at home. He wanted to leave AMA but I felt compelled to prescribe the antibiotics prior to discharge. Labs (last 24 hrs) Laboratory Tests 03/13/19 15:39: Glucometer 128H 03/13/19 20:59: Glucometer 122H 03/14/19 06:06: Glucometer 80 03/14/19 08:19: Vancomycin Level Trough 12.1 03/14/19 11:29: Glucometer 117H Microbiology 03/12/19 Blood Culture - Preliminary, Resulted No growth Patient resulted labs reviewed. Pending Labs Laboratory Tests 03/14/19 08:19: Vancomycin Level Trough 12.1 03/14/19 11:29: Glucometer 117 Discussion & Recommendations Discharge Planning: <30 minutes discharge planning Discharge Home Medications: Active Scripts Active Augmentin 875-125 Tablet (Amoxicillin/Potassium Clav) 1 Each Tablet 1 Each PO BID Oxycodone-Acetaminophen 10-325 (Oxycodone HCl/Acetaminophen) 1 Each Tablet 1 Tab PO QID PRN Reported Rhinocort Allergy (Budesonide) 8.43 Ml Russell.pump 8.43 Ml NS BID PRN Novolog (Insulin Aspart) 100 Unit/1 Ml Susp 10 Unit SQ 1200 Metoprolol Succinate 50 Mg Tab.er.24h 50 Mg PO DAILY Losartan Potassium 25 Mg Tablet 25 Mg PO DAILY Lyrica (Pregabalin) 300 Mg Capsule 300 Mg PO TID Albuterol Sulfate 2.5 Mg/3 Ml Vial.neb 2.5 Mg NEB Q6H PRN Symbicort 160-4.5 Mcg Inhaler (Budesonide/Formoterol Fumarate) 10.2 Gm Hfa.aer.ad 2 Puff INH BID Ventolin Hfa (Albuterol Sulfate) 18 Gm Hfa.aer.ad 2 Puff INH Q6H PRN Spiriva Respimat 2.5MCG/ACTUATION (Tiotropium [place]) 4 Gm Mist.inhal 2 Puff INH DAILY LAST PICKED UP 09-14-2018 Levemir (Insulin Determir) 1,000 Units/10 Ml Soln 50 Units SQ BID LAST PICKED UP 09-14-2018 Novolog (Insulin Aspart) 100 Unit/1 Ml Susp 20 Units SQ BID WITH MEALS Pantoprazole Sodium 40 Mg Tablet.dr 40 Mg PO DAILY LAST PICKED UP 12-16-2018 #30/30DS Instructions to patient/family Please see electronic discharge instructions given to patient. Clinical Quality Measures DVT/VTE Risk/Contraindication: Risk Factor Score Per Nursin RFS Level Per Nursing on Admit: 4+=Very High Smoking Cessation Counseling: Counseling-Symptomatic: 3-10 Minutes Discussed Options Including: Chantix Problem Qualifiers (1) Toe fracture, left: Encounter type: initial encounter Toe: lesser toe Fracture type: closed Phalanx: proximal Fracture alignment: displaced Qualified Codes: S92.512A - Displaced fracture of proximal phalanx of left lesser toe(s), initial encounter for closed fracture (2) Sepsis: Sepsis type: sepsis due to unspecified organism Qualified Codes: A41.9 - Sepsis, unspecified organism SHANNON RODRIGUEZ DO Mar 14, 2019 13:04
[2019-03-14 13:30] VITALS: BP 129/91
[2019-03-15] MEDS ORDERED: TROUGH ORDER-PHARMACY XX NR (08:00)
== END 2019-03-14 13:30 | disposition home or self-care (01) | DRG 564 ==
LOC: EDUNIT# 21:28 → ER 21:29 → 4TH 22:43
PROVIDERS: ADMIT Internal Medicine; ATTEND Internal Medicine
DX: T87.44 Infection of amputation stump, left lower extremity (principal); T87.81 Dehiscence of amputation stump; L03.116 Cellulitis of left lower limb; A41.1 Sepsis due to other specified staphylococcus; S92.512A Displaced fracture of proximal phalanx of left lesser toe(s), initial encounter for closed fracture; E11.40 Type 2 diabetes mellitus with diabetic neuropathy, unspecified; G47.33 Obstructive sleep apnea (adult) (pediatric); J44.9 Chronic obstructive pulmonary disease, unspecified; J84.9 Interstitial pulmonary disease, unspecified; I44.7 Left bundle-branch block, unspecified; I25.10 Atherosclerotic heart disease of native coronary artery without angina pectoris; E78.00 Pure hypercholesterolemia, unspecified; I10 Essential (primary) hypertension; G25.81 Restless legs syndrome; K21.9 Gastro-esophageal reflux disease without esophagitis; M79.7 Fibromyalgia; F41.9 Anxiety disorder, unspecified; F32.9 Major depressive disorder, single episode, unspecified; Z86.73 Personal history of transient ischemic attack (TIA), and cerebral infarction without residual deficits; Z79.4 Long term (current) use of insulin; Z87.891 Personal history of nicotine dependence; W50.0XXA Accidental hit or strike by another person, initial encounter
CPT/HCPCS: 36415; 80053; 80202; 82962; 83605; 85007; 85025; 85027; 87040; 96374; 96375; 99282

== ENCOUNTER → 2019-03-12 | Outpatient (CLI) | payer MEDICARE ==
[~2019-03-12] MED LIST changes: +AMOX-358 PO; +FAMC500T17 PO; -METO-370; +METO-370 PO; +MINO100C2 PO; +OXYC-465 PO
== END ==
LOC: WOUNDCARE 09:45
PROVIDERS: ATTEND Nurse Practitioner
DX: E11.621 Type 2 diabetes mellitus with foot ulcer (principal); L97.521 Non-pressure chronic ulcer of other part of left foot limited to breakdown of skin; M86.472 Chronic osteomyelitis with draining sinus, left ankle and foot
CPT/HCPCS: 99213

== ENCOUNTER → 2019-03-12 | Outpatient (CLI) | payer MEDICARE ==
[2019-03-12 12:10] LABS: BASOPHILS # (AUTO) 0.1 10^3/uL (0.0-0.1); BASOPHILS % (AUTO) 1 % (0-10); EOSINOPHILS # (AUTO) 0.3 10^3/uL (0.0-0.3); EOSINOPHILS % (AUTO) 2 % (0-10); HEMATOCRIT 42 % (40-54); HEMOGLOBIN 14.4 G/DL (13.3-17.7); LYMPHOCYTES # (AUTO) 3.2 X 10^3 (1.0-4.0); LYMPHOCYTES % (AUTO) 24 % (12-44); MEAN CORPUSCULAR HEMOGLOBIN 29 PG (25-34); MEAN CORPUSCULAR HGB CONC 35 G/DL (32-36); MEAN CORPUSCULAR VOLUME 83 FL (80-99); MEAN PLATELET VOLUME 10.8 FL (7.4-10.4); MONOCYTES % (AUTO) 7 % (0-12); NEUTROPHILS # (AUTO) 8.6 X 10^3 (1.8-7.8); NEUTROPHILS % (AUTO) 66 % (42-75); PLATELET COUNT 207 10^3/uL (130-400); RED CELL DISTRIBUTION WIDTH 14.7 % (10.0-14.5); WHITE BLOOD COUNT 13.2 10^3/uL (4.3-11.0)
--- NOTE | 2019-03-12 17:05 | Diagnostic Imaging Report ---
INDICATION: Left great toe amputation on February 16. Patient complains of redness and swelling. TIME OF EXAM: 12:14 p.m. FINDINGS: Post surgical changes of amputation of the great toe is noted. Overlying soft tissues are unremarkable. No soft tissue gas is seen. There is a fracture at the base of the proximal phalanx of the second toe which extends into the articular surface of the MTP joint. There is some distraction of the fracture fragment. Remaining phalanges and metatarsals are intact. Midfoot and hindfoot are unremarkable apart from small posterior and plantar calcaneal spurs. IMPRESSION: 1. Great toe amputation. 2. Acute appearing fracture at the base of the proximal phalanx, second toe. Dictated by: Dictated on workstation # [id number]
== END ==
LOC: RAD 11:32
PROVIDERS: ATTEND Nurse Practitioner
DX: S92.512A Displaced fracture of proximal phalanx of left lesser toe(s), initial encounter for closed fracture (principal); E11.621 Type 2 diabetes mellitus with foot ulcer; L97.521 Non-pressure chronic ulcer of other part of left foot limited to breakdown of skin; M86.472 Chronic osteomyelitis with draining sinus, left ankle and foot; Z89.412 Acquired absence of left great toe
CPT/HCPCS: 36415; 73630; 85025

== ENCOUNTER → 2019-03-16 | Outpatient (CLI) | payer MEDICARE ==
[~2019-03-16] MED LIST changes: +AMOX-358 PO; +FAMC500T17 PO; +MINO100C2 PO; +OXYC-465 PO
== END ==
LOC: WOUNDCARE 08:09
PROVIDERS: ATTEND Surgery
DX: E11.621 Type 2 diabetes mellitus with foot ulcer (principal); L97.521 Non-pressure chronic ulcer of other part of left foot limited to breakdown of skin; L97.522 Non-pressure chronic ulcer of other part of left foot with fat layer exposed; E11.69 Type 2 diabetes mellitus with other specified complication; M86.472 Chronic osteomyelitis with draining sinus, left ankle and foot; E11.42 Type 2 diabetes mellitus with diabetic polyneuropathy
CPT/HCPCS: 99212

== ENCOUNTER → 2019-03-23 | Outpatient (CLI) | payer MEDICARE | LOC: WOUNDCARE 08:09 | PROVIDERS: ATTEND Surgery | DX: L97.522 Non-pressure chronic ulcer of other part of left foot with fat layer exposed (principal); E11.621 Type 2 diabetes mellitus with foot ulcer; E11.42 Type 2 diabetes mellitus with diabetic polyneuropathy | CPT/HCPCS: 99212 ==

== ENCOUNTER → 2019-05-19 | Outpatient (CLI) | payer MEDICARE ==
[~2019-05-19] MED LIST changes: +LINE600T15 PO; -LINE600T33 PO
== END ==
LOC: WOUNDCARE 14:47
PROVIDERS: ATTEND Surgery
DX: E11.621 Type 2 diabetes mellitus with foot ulcer (principal); E11.42 Type 2 diabetes mellitus with diabetic polyneuropathy; E11.52 Type 2 diabetes mellitus with diabetic peripheral angiopathy with gangrene; L97.522 Non-pressure chronic ulcer of other part of left foot with fat layer exposed; L97.521 Non-pressure chronic ulcer of other part of left foot limited to breakdown of skin; I96 Gangrene, not elsewhere classified; M20.42 Other hammer toe(s) (acquired), left foot
CPT/HCPCS: 99212

== ENCOUNTER → 2019-06-26 | Outpatient (CLI) | payer MEDICARE ==
[~2019-06-26] MED LIST changes: +RT-ALBUTEROL SULF 2.5 MG/3 ML PRE-MIX VIAL INH ONE; +RT-ALBUTEROL SULF 2.5 MG/3 ML PRE-MIX VIAL ONE
== END ==
LOC: RT 13:45
PROVIDERS: ATTEND Nurse Practitioner Family
DX: J84.9 Interstitial pulmonary disease, unspecified (principal); J44.9 Chronic obstructive pulmonary disease, unspecified; G47.33 Obstructive sleep apnea (adult) (pediatric); M35.00 Sjogren syndrome, unspecified; R91.1 Solitary pulmonary nodule; Z72.0 Tobacco use
CPT/HCPCS: 94060; 94726; 94729

== ENCOUNTER → 2019-07-06 | Outpatient (CLI) | payer MEDICARE ==
[~2019-07-06] VITALS: Ht 188 cm; Wt 109.0 kg
[~2019-07-06] MED LIST changes: +CATHETER FLUSH 10 ML SYR IV PRN; +REGADENOSON 0.4 MG/5 ML SYR (LEXISCAN) IV ONE; -RT-ALBUTEROL SULF 2.5 MG/3 ML PRE-MIX VIAL INH ONE; -RT-ALBUTEROL SULF 2.5 MG/3 ML PRE-MIX VIAL ONE
[2019-07-06 07:51] LABS: ALANINE AMINOTRANSFERASE 14 U/L (0-55); ALBUMIN 4.2 GM/DL (3.2-4.5); ALKALINE PHOSPHATASE 93 U/L (40-136); BILIRUBIN,TOTAL 0.3 MG/DL (0.1-1.0); BUN/CREATININE RATIO 11; CALCIUM 9.5 MG/DL (8.5-10.1); CARBON DIOXIDE 25 MMOL/L (21-32); CHLORIDE 105 MMOL/L (98-107); CHOLESTEROL 173 MG/DL (< 200); CREATININE SERUM 0.84 MG/DL (0.60-1.30); GFR ESTIMATED > 60; GLUCOSE 171 MG/DL (70-105); HDL CHOLESTEROL 35 MG/DL (40-60); POTASSIUM 4.5 MMOL/L (3.6-5.0); SODIUM 139 MMOL/L (135-145); TOTAL PROTEIN 7.6 GM/DL (6.4-8.2); TRIGLYCERIDES 217 MG/DL (<150); VLDL CHOLESTEROL 43 MG/DL (5-40)
[2019-07-06 09:13] VITALS: BP 135/79
--- NOTE | 2019-07-06 15:01 | STRESS TEST ---
DATE OF SERVICE: 07/06/2019 LEXISCAN MYOVIEW STRESS TEST REPORT REFERRING PHYSICIAN: Ashley Haddad MD Baseline heart rate is 71. Baseline blood pressure 135/79. Baseline EKG is sinus rhythm with left bundle branch block. In summary, the patient was injected with 10.17 mCi of technetium-99 Myoview and the resting images were obtained. Then, the patient received 0.4 mg of Lexiscan followed by 30.17 mCi of technetium-99 Myoview. Throughout the test, there were no EKG changes. The resting and stress images were reviewed and compared in the short axis, horizontal long axis, and vertical long axis views. Review of the images showed fix defect involving the anteroseptum with no significant reversibility. SSS is 6, SDS 0, TID value 1.17. On the gated images, the left ventricle is normal in size with hypokinesia at the septum. Calculated ejection fraction 49%. CONCLUSION: 1. The patient tolerated Lexiscan well. 2. Baseline left bundle-branch block persisted throughout test. 3. Fixed defect at the septum with no significant ischemia. 4. Normal left ventricular size with hypokinesia at the septum, probably due to the underlying left bundle-branch block. Calculated ejection fraction 49%. Job ID: [id number] DocumentID: [id number] Dictated Date: 07/06/2019 12:30:17 Vegetable Preparer Date: 07/06/2019 15:00:39 Dictated By: JUSTICE VARGAS MD
== END ==
LOC: CARD 07:10
PROVIDERS: ATTEND Internal Medicine Cardiovascular Disease
DX: I44.7 Left bundle-branch block, unspecified (principal); I51.0 Cardiac septal defect, acquired; I51.89 Other ill-defined heart diseases; F17.201 Nicotine dependence, unspecified, in remission; I07.1 Rheumatic tricuspid insufficiency
CPT/HCPCS: 36415; 78452; 80053; 80061; 93017

== ENCOUNTER 2019-08-03 11:06 | Outpatient (CLI) | payer MEDICARE ==
[~2019-08-03] VITALS: Ht 185.5 cm; Wt 109.0 kg
[~2019-08-03 11:06] MED LIST changes: -CATHETER FLUSH 10 ML SYR IV PRN; -REGADENOSON 0.4 MG/5 ML SYR (LEXISCAN) IV ONE
--- NOTE | 2019-08-03 12:33 | Diagnostic Imaging Report ---
INDICATION: PICC line placement. Frontal chest obtained at 12:05 p.m. compared to 12/17/2018. FINDINGS: There is left-sided PICC line placed tip overlying the upper SVC. Heart is normal in size. Lungs appear There is no pneumothorax or pleural fluid. IMPRESSION: Left-sided PICC line tip overlies upper SVC. There is no acute pulmonary infiltrate or pleural fluid. Dictated by: Dictated on workstation # [id number]
[2019-08-03 12:40] VITALS: BP 119/79
== END 2019-08-03 12:40 | disposition home or self-care (01) ==
LOC: SDC 11:06
PROVIDERS: ATTEND Family Medicine
DX: Z79.2 Long term (current) use of antibiotics (principal)
CPT/HCPCS: 36569; 71045; 76937

== ENCOUNTER → 2019-08-10 | Outpatient (CLI) | payer MEDICARE ==
[2019-08-10 11:22] LABS: BASOPHILS # (AUTO) 0.1 10^3/uL (0.0-0.1); BASOPHILS % (AUTO) 1 % (0-10); EOSINOPHILS # (AUTO) 1.1 10^3/uL (0.0-0.3); EOSINOPHILS % (AUTO) 8 % (0-10); HEMATOCRIT 39 % (40-54); HEMOGLOBIN 12.9 G/DL (13.3-17.7); LYMPHOCYTES # (AUTO) 2.5 X 10^3 (1.0-4.0); LYMPHOCYTES % (AUTO) 19 % (12-44); MEAN CORPUSCULAR HEMOGLOBIN 28 PG (25-34); MEAN CORPUSCULAR HGB CONC 33 G/DL (32-36); MEAN CORPUSCULAR VOLUME 86 FL (80-99); MEAN PLATELET VOLUME 10.9 FL (7.4-10.4); MONOCYTES % (AUTO) 7 % (0-12); NEUTROPHILS # (AUTO) 8.8 X 10^3 (1.8-7.8); NEUTROPHILS % (AUTO) 65 % (42-75); PLATELET COUNT 205 10^3/uL (130-400); RED CELL DISTRIBUTION WIDTH 14.6 % (10.0-14.5); WHITE BLOOD COUNT 13.6 10^3/uL (4.3-11.0)
--- NOTE | 2019-08-10 14:40 | Diagnostic Imaging Report ---
INDICATION: Respiratory infection PA and lateral chest Left upper extremity PICC line tip projects over the SVC. Heart size and pulmonary vascularity are normal. There is a small cavitary lesion in the left upper lobe measures 2.2 cm in diameter. There are no effusions or pneumothoraces. IMPRESSION: Cavitary lesion left upper lobe. CRITICAL FINDING: Report was called to [facility]/business office coordinator of Vanita Hale by ericka at 2:40 p.m. Dictated by: Dictated on workstation # [id number]
== END ==
LOC: RAD 10:52
PROVIDERS: ATTEND Nurse Practitioner Family
DX: J06.9 Acute upper respiratory infection, unspecified (principal); R91.1 Solitary pulmonary nodule
CPT/HCPCS: 36415; 71046; 85025

== ENCOUNTER 2019-08-17 13:57 | Emergency (ER) | payer MEDICARE ==
[~2019-08-17] VITALS: Ht 187 cm; Wt 113.6 kg
[~2019-08-17 13:57] MED LIST changes: -HOLD METFORMIN - RECEIVED CONTRAST 20 ML VIAL IV SCH; -IOHEXOL 350 MG/ML 100 ML (OMNIPAQUE 350) VIAL IV ONE; -NS 100 ML (IVPB) BAG IV ONE
--- NOTE | 2019-08-17 14:10 | NUR ---
N95 Mask placed on patient and staff are using N95 masks and gloves in room with patient.
--- NOTE | 2019-08-17 14:12 | ED Dyspnea ---
General Stated Complaint: POSS TB Source of Information: Patient Exam Limitations: No Limitations History of Present Illness Date Seen by Provider: Aug 17, 2019 Time Seen by Provider: 14:09 Initial Comments 58-year-old male sent in by Dr. Palmer's office. Patient had a CT this morning that showed a cavitary lesion with a steak irregular wall that was spiculated. Patient did have a couple days of hemoptysis. Patient reports that this has resolved. Patient has a differential that includes cancer versus infection versus to the. Patient was sent here to the ER for further evaluation with labs. Patient is normally on 3 L home oxygen due to severe chronic COPD. Patient is currently getting IV antibiotics for a left foot infection for with potential partial left foot amputation. Patient denies any fevers chills nausea vomiting to me. Allergies and Home Medications Allergies Coded Allergies: ceftriaxone (Verified Allergy, Intermediate, 08/11/18) Patient experienced reaction approx. 6 hrs after receiving rocephin. He experienced redness, itching and shortness of air. Benadryl was administered and it resolved. Home Medications Albuterol Sulfate 18 Gm Hfa.aer.ad, 2 PUFF INH Q6H PRN for SHORTNESS OF BREATH, (Reported) Albuterol Sulfate 2.5 Mg/3 Ml Vial.neb, 2.5 MG NEB Q6H PRN for SHORTNESS OF BREATH, (Reported) Amoxicillin/Potassium Clav 1 Each Tablet, 1 EACH PO BID Prescribed by: SHANNON RODRIGUEZ on 03/14/19 1303 Budesonide 8.43 Ml Bell.pump, 8.43 ML NS BID PRN for ALLERGIES, (Reported) Budesonide/Formoterol Fumarate 10.2 Gm Hfa.aer.ad, 2 PUFF INH BID, (Reported) Insulin Aspart 100 Unit/1 Ml Susp, 20 UNITS SQ BID WITH MEALS, (Reported) Insulin Aspart 100 Unit/1 Ml Susp, 10 UNIT SQ 1200, (Reported) Insulin Determir 1,000 Units/10 Ml Soln, 50 UNITS SQ BID, (Reported) LAST PICKED UP 09-14-2018 Losartan Potassium 25 Mg Tablet, 25 MG PO DAILY, (Reported) Metoprolol Succinate 50 Mg Tab.er.24h, 50 MG PO DAILY, (Reported) Oxycodone HCl/Acetaminophen 1 Each Tablet, 1 TAB PO QID PRN for PAIN-MODERATE Prescribed by: SHANNON RODRIGUEZ on 03/14/19 1303 Pantoprazole Sodium 40 Mg Tablet.dr, 40 MG PO DAILY, (Reported) LAST PICKED UP 12-16-2018 #30/30DS Pregabalin 300 Mg Capsule, 300 MG PO TID, (Reported) Tiotropium [place] 4 Gm Mist.inhal, 2 PUFF INH DAILY, (Reported) LAST PICKED UP 09-14-2018 Patient Home Medication List Home Medication List Reviewed: Yes Review of Systems Review of Systems Constitutional: No chills, No fever EENTM: no symptoms reported Respiratory: see HPI Cardiovascular: no symptoms reported Gastrointestinal: no symptoms reported Genitourinary: no symptoms reported Musculoskeletal: no symptoms reported Skin: no symptoms reported Past Ftpxkxq-Kdntxv-Zioxri Hx Past Med/Social Hx: Reviewed Nursing Past Med/Soc Hx Patient Social History Alcohol Beverage of Choice: Beer Drug of Choice: CANNIBUS Type Used: Cigarettes, Electronic/Vapor Former Smoker, Quit: Jul 17, 2017 2nd Hand Smoke Exposure: No Recent Hopitalizations: No Immunizations Up To Date Tetanus Booster (TDap): Less than 5yrs PED Vaccines UTD: No Date of Pneumonia Vaccine: January 20, 2013 Date of Influenza Vaccine: Jun 20, 2018 Seasonal Allergies Seasonal Allergies: Yes Past Medical History Surgeries: Yes Abdominal, Cardiac, Orthopedic Respiratory: Yes Pneumonia, Sleep Apnea, COPD Currently Using CPAP: No Currently Using BIPAP: Yes Cardiac: Yes (LBBB, CARDIAC [id number] DISEASE/NO INTERVENTION) Coronary Artery Disease, High Cholesterol, Hypertension Neurological: Yes (NEUROPATHY IN FEET; RESTLESS LEG SYNDROME) Neuropathy, TIA Reproductive Disorders: No Sexually Transmitted Disease: No HIV/AIDS: No Genitourinary: No Gastrointestinal: Yes Gastroesophageal Reflux, Hemorrhoids, Polyps Musculoskeletal: Yes Degenerate Disk Disease, Arthritis, Fibromyalgia, Chronic Back Pain Endocrine: Yes Diabetes, Insulin dep HEENT: No Loss of Vision: Denies Hearing Impairment: Hard of Hearing Cancer: No Psychosocial: Yes Anxiety, Suicide Attempts, Depression Integumentary: Yes (DIABETIC FOOT ULCERS/CELLULITIS/OSTEOMYELITIS; MRSA) Blood Disorders: No Adverse Reaction/Blood Tranf: No Family Medical History Cancer 03 MOTHER Cancer of colon 03 MOTHER Cataract 03 MOTHER Chest pain 03 FATHER Family history: Cardiovascular disease 03 FATHER Family history: Diabetes mellitus 09 BROTHER Headache 03 FATHER 03 MOTHER 09 BROTHER 09 BROTHER Heart disease 03 FATHER Myocardial infarction 03 FATHER Stroke 09 BROTHER No Family History of: Abdominal aortic aneurysm Hi's disease Alcoholism Aphasia Congenital heart disease Congestive heart failure Cystic fibrosis Dementia Dysphagia Family history: Allergy Family history: Alzheimer's disease Family history: Arthritis Family history: Asthma Family history: Breast disease Family history: Coronary thrombosis Family history: Gastrointestinal disease Family history: Glaucoma Family history: Hypertension Family history: Osteoporosis Family history: Thyroid disorder Hearing loss Hereditary disease History of - anemia History of - disorder History of - respiratory disease History of drug abuse Human immunodeficiency virus (HIV) seropositivity Hypercholesterolemia Infertile Kidney disease Malignant neoplasm of lung Parkinson's disease Prostate cancer Psychotic disorder Seizure disorder Tuberculosis Visual impairment No Pertinent Family Hx Physical Exam Vital Signs Vital Signs - First Documented 08/17/19 14:05 Temp 36.2 Pulse 81 Resp 16 B/P (MAP) 159/82 (107) Pulse Ox 97 O2 Delivery Nasal Cannula O2 Flow Rate 3.00 Capillary Refill : Height, Weight, BMI Height: 6'2.00" Weight: 230lbs. 0.0oz. 104.293235we; 30.83 BMI Method:Stated General Appearance: No Apparent Distress, WD/WN Neck: Non Tender Cardiovascular: Regular Rate, Rhythm Gastrointestinal: Non Tender Neurologic/Psychiatric: Alert, Oriented x3 Skin: Normal Color, Warm/Dry Focused Exam Lactate Level 08/17/19 14:18: Lactic Acid Level 2.31*H Lactic Acid Level Laboratory Tests Test 08/17/19 14:18 Lactic Acid Level 2.31 MMOL/L (0.50-2.00) *H Progress/Results/Core Measures Results/Orders Lab Results Laboratory Tests Test 08/17/19 14:18 Range/Units White Blood Count 15.1 H 4.3-11.0 10^3/uL Red Blood Count 4.38 4.35-5.85 10^6/uL Hemoglobin 12.3 L 13.3-17.7 G/DL Hematocrit 38 L 40-54 % Mean Corpuscular Volume 87 80-99 FL Mean Corpuscular Hemoglobin 28 25-34 PG Mean Corpuscular Hemoglobin Concent 32 32-36 G/DL Red Cell Distribution Width 15.5 H 10.0-14.5 % Platelet Count 208 130-400 10^3/uL Mean Platelet Volume 10.6 H 7.4-10.4 FL Neutrophils (%) (Auto) 82 H 42-75 % Lymphocytes (%) (Auto) 12 12-44 % Monocytes (%) (Auto) 5 0-12 % Eosinophils (%) (Auto) 1 0-10 % Basophils (%) (Auto) 1 0-10 % Neutrophils # (Auto) 12.3 H 1.8-7.8 X 10^3 Lymphocytes # (Auto) 1.9 1.0-4.0 X 10^3 Monocytes # (Auto) 0.7 0.0-1.0 X 10^3 Eosinophils # (Auto) 0.2 0.0-0.3 10^3/uL Basophils # (Auto) 0.1 0.0-0.1 10^3/uL Neutrophils % (Manual) 74 % Lymphocytes % (Manual) 20 % Monocytes % (Manual) 3 % Eosinophils % (Manual) 1 % Basophils % (Manual) 0 % Band Neutrophils 2 % Anisocytosis SLIGHT Prothrombin Time 13.2 12.2-14.7 SEC INR Comment 1.0 0.8-1.4 Activated Partial Thromboplast Time 29 24-35 SEC Sodium Level 136 135-145 MMOL/L Potassium Level 4.7 3.6-5.0 MMOL/L Chloride Level 100 98-107 MMOL/L Carbon Dioxide Level 26 21-32 MMOL/L Anion Gap 10 5-14 MMOL/L Blood Urea Nitrogen 15 7-18 MG/DL Creatinine 1.13 0.60-1.30 MG/DL Estimat Glomerular Filtration Rate > 60 BUN/Creatinine Ratio 13 Glucose Level 287 H 70-105 MG/DL Lactic Acid Level 2.31 *H 0.50-2.00 MMOL/L Calcium Level 8.7 8.5-10.1 MG/DL Corrected Calcium 8.5 8.5-10.1 MG/DL Total Bilirubin 0.5 0.1-1.0 MG/DL Aspartate Amino Transf (AST/SGOT) 13 5-34 U/L Alanine Aminotransferase (ALT/SGPT) 20 0-55 U/L Alkaline Phosphatase 73 40-136 U/L Total Protein 7.0 6.4-8.2 GM/DL Albumin 4.2 3.2-4.5 GM/DL My Orders Orders - WYNN,RAN L DO Cbc With Automated Diff (08/17/19 13:59) Comprehensive Metabolic Panel (08/17/19 13:59) Lactic Acid Analyzer (08/17/19 13:59) Protime With Inr (08/17/19 14:23) Partial Thromboplastin Time (08/17/19 14:23) Manual Differential (08/17/19 14:18) Hydrocodone/Apap 10/325 Tablet (Lortab 1 (08/17/19 15:30) Piperacillin/Tazobactam (Bulk) (Zosyn In (08/17/19 15:30) Ed Iv/Invasive Line Start (08/17/19 15:27) Ns Iv 1000 Ml (Sodium Chloride 0.9%) (08/17/19 15:27) Medications Given in ED Current Medications Medications Dose Ordered Sig/Gale Route Start Time Stop Time Status Last Admin Dose Admin Acetaminophen/ Hydrocodone Bitart 1 ea ONCE ONCE PO 08/17/19 15:30 08/17/19 15:31 DC 08/17/19 15:29 1 EA Piperacillin Sod/ Tazobactam Sod 4.5 gm/Sodium Chloride 120 ml @ 240 mls/hr ONCE ONCE IV 08/17/19 15:30 08/17/19 15:59 08/17/19 15:39 240 MLS/HR Vital Signs/I&O 08/17/19 08/17/19 14:05 14:58 Temp 36.2 Pulse 81 Resp 16 B/P (MAP) 159/82 (107) Pulse Ox 97 O2 Delivery Nasal Cannula Nasal Cannula O2 Flow Rate 3.00 3.00 Departure Impression Primary Impression: Pneumonia Qualified Codes: J18.1 - Lobar pneumonia, unspecified organism Additional Impressions: Abnormal lung scan Hemoptysis Disposition: XFER SHT-TRM HOSP Condition: Stable Transfer Transfer Reason: Diversion Time Spoke to Accepting Phy: 15:40 Transfer Progress Notes Patient with concerns for pneumonia with a cavitary lesion on lung scan. Apparently on diversion so patient will be transferred to [facility] with accepting Dr. Rodriguez. Patient transferred in stable condition Transfer Facility: [facility] Departure-Patient Inst. Referrals: JULIET RODRIGUEZ MD (PCP/Family) Primary Care Physician RAN WYNN DO Aug 17, 2019 14:12 POS
--- NOTE | 2019-08-17 14:18 | NUR ---
Patient has a single lumen PICC line present to left upper arm upon arrival. He states he has been administering Vancomycin 1.5 grams at home through the PICC for the left foot wound. PICC line flushes easily and has good blood return. Blood for labs drawn through PICC.
[2019-08-17 14:27] LABS: BASOPHILS # (AUTO) 0.1 10^3/uL (0.0-0.1); BASOPHILS % (AUTO) 1 % (0-10); EOSINOPHILS # (AUTO) 0.2 10^3/uL (0.0-0.3); EOSINOPHILS % (AUTO) 1 % (0-10); HEMATOCRIT 38 % (40-54); HEMOGLOBIN 12.3 G/DL (13.3-17.7); LYMPHOCYTES # (AUTO) 1.9 X 10^3 (1.0-4.0); LYMPHOCYTES % (AUTO) 12 % (12-44); MEAN CORPUSCULAR HEMOGLOBIN 28 PG (25-34); MEAN CORPUSCULAR HGB CONC 32 G/DL (32-36); MEAN CORPUSCULAR VOLUME 87 FL (80-99); MEAN PLATELET VOLUME 10.6 FL (7.4-10.4); MONOCYTES # (AUTO) 0.7 X 10^3 (0.0-1.0); MONOCYTES % (AUTO) 5 % (0-12); NEUTROPHILS # (AUTO) 12.3 X 10^3 (1.8-7.8); NEUTROPHILS % (AUTO) 82 % (42-75); PLATELET COUNT 208 10^3/uL (130-400); RED CELL DISTRIBUTION WIDTH 15.5 % (10.0-14.5); WHITE BLOOD COUNT 15.1 10^3/uL (4.3-11.0)
[2019-08-17 14:39] LABS: PROTHROMBIN TIME PATIENT 13.2 SEC (12.2-14.7)
[2019-08-17 14:45] LABS: ALANINE AMINOTRANSFERASE 20 U/L (0-55); ALBUMIN 4.2 GM/DL (3.2-4.5); ALKALINE PHOSPHATASE 73 U/L (40-136); BILIRUBIN,TOTAL 0.5 MG/DL (0.1-1.0); BUN/CREATININE RATIO 13; CALCIUM 8.7 MG/DL (8.5-10.1); CARBON DIOXIDE 26 MMOL/L (21-32); CHLORIDE 100 MMOL/L (98-107); CREATININE SERUM 1.13 MG/DL (0.60-1.30); GFR ESTIMATED > 60; GLUCOSE 287 MG/DL (70-105); POTASSIUM 4.7 MMOL/L (3.6-5.0); SODIUM 136 MMOL/L (135-145)
[2019-08-17 14:49] LABS: ANISOCYTOSIS SLIGHT; BAND NEUTROPHILS 2 %; BASOPHILS % (MANUAL) 0 %; EOSINOPHILS % (MANUAL) 1 %; LYMPHOCYTES % (MANUAL) 20 %; MONOCYTES % (MANUAL) 3 %; NEUTROPHILS % (MANUAL) 74 %
[2019-08-17] MEDS ORDERED: NS IV 1000 ML 1,000 ML IV SCH (15:27)
[2019-08-17] MEDS ORDERED: HYDROcodone/APAP 10 MG/325 MG (LORTAB) TAB PO ONE (15:30)
[2019-08-17] MEDS ORDERED: PIPERACILLIN/TAZOBACTAM (BULK) 4.5 GM in NS (IVPB) 100 ML IV ONE (15:30)
--- NOTE | 2019-08-17 15:55 | NUR ---
Report given to Yara AUGUSTINE at [facility]. Patient will go to room 112.
--- NOTE | 2019-08-17 16:18 | NUR ---
Patient refused to be transported by EMS to [facility]. Patient signs Refusal form.
[2019-08-17 16:20] VITALS: BP 152/83
--- OUTSIDE RECORDS SUMMARY | 2019-09-11 12:28 | XMS REPORT | Clinical Summary ---
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 If you d o not see the information that you expected, contact Release of Information in [facility] [employer] Information Management department at [phone] for further assistan ce in locating additional records.[facility] Allergies Comments Active Allergy Reactions [...] of Breath. Shake well before use. Active hybzzscuahm-ovjodkrojr-md Inject 0.25 10 mL 3 entolamine(#)(+) mL [...] PDE-5 therapy. Risk factor reduction of smoking cessat ion, diabetic control, hypertension control, cholesterol control, diet, and exercise were all stressed to the patient. Treatment options reviewed included ora l phosphodiesterase-5 inhibitors, intraurethral suppositories, intra cave rnosal injections, vacuum erection device, and penile prosthesis. 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 ILD (interstitial lung disease) 06/29/2013 Dyspnea 06/29/2013 Long-term use of immunosuppressant medication 2012 Family History Medical History Relation Name Comments Coronary Artery Disease Father Cancer Mother colon Relation Name Status Comments Father Mother Social History Date Tobacco Use Types Packs/Day Years Used Current Every Day Smoker Cigarettes 1 30 Smokeless Tobacco: Never Used Comments: Down to 0.5ppd/day since 2012 as of 06/23/13 Drinks/Week oz/Week Comments Alcohol Use No Sex Assigned at Date Recorded Not on file Industry Job Start Date Occupation Not on file Not on file Not on file Travel End Travel History Travel Start No recent travel history available. Last Filed Vital Signs Reading Time Taken Comments Vital Sign 143/67 01/29/2018 3:02 PM CDT Blood Pressure 90 01/29/2018 3:02 PM CDT Pulse 36.9 C (98.4 F) 06/23/2013 12:35 PM CDT Temperature 20 06/23/2013 12:35 PM CDT Respiratory Rate 96% 06/23/2013 12:35 PM CDT RA Oxygen Saturation - - Inhaled Oxygen Concentration 113.3 kg (249 lb 12.8 oz) 01/29/2018 3:02 PM CDT Weight 188 cm (6' 2") 01/29/2018 3:02 PM CDT Height 32.07 01/29/2018 3:02 PM CDT Body Mass Index Plan of Treatment Health Maintenance Due Date Last Done Comments HEPATITIS C SCREENING 1962 MEDICARE ANNUAL WELLNESS 1962 VISIT DTAP/TDAP VACCINES (1 - 1973 Tdap) HIV SCREENING 1977 PHYSICAL (COMPREHENSIVE) 1980 EXAM COLORECTAL CANCER 2012 SCREENING SHINGLES RECOMBINANT 2012 VACCINE (1 of 2) INFLUENZA VACCINE 04/16/2019 Results Not on filefrom Last 3 Months Insurance Type Payer Benefit Subscriber ID Effective Phone Address Plan / Dates Group Medicare HU[employer]NA MEDICARE HU[employer]NA xxxxxxxxx 2017-P CHOICE PPO resent [id number] Advance Directives Patient Director Hardware Explanation Type Date Recorded Advance 06/16/2013 2:18 PM Directive/DPOA
--- OUTSIDE RECORDS SUMMARY | 2019-09-11 12:29 | XMS REPORT ---
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 Active 149987197 Problem Abdominal pain R10.9 Active 20949 001 Problem Change in bowel habit R19.4 Active 15962366 Problem Coronary atherosclerosis due to lipid rich plaque I25.83 Active 11972991 Problem Type 2 diabetes 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 E11.8 Active 36868066 Problem Impotence N52.9 Active 150806094 Problem Family history of colon cancer Z80.0 Active 591224997 Problem Diabetic neuropathy, painful E11.40 A ctive 146376369 Problem Arm paresthesia, right R20.2 Active 38627669 Problem Gastroesophageal reflux disease without esophagitis K21.9 Active 837868721 Problem Drug abuse, opioid type F11.10 Active 6623940 Problem COPD exacerbation J44.1 Active 19 7028462 Problem Obstructive sleep apnea syndrome G47.33 Active 10235096 Problem Diverticulitis K57.92 Active 12104 6006 Problem Pain of right upper extremity M79.601 Active 937446911 Problem Respiratory bronchiolitis interstitial lung disease J84.115 Active 708818688 Problem Hypoxia R09.02 Active 070727086 Problem Interstitial lung disease J84.9 Acti ve [id number] ALLERGIES No Information ENCOUNTERS Encounter Location Date Diagnosis [facility] [address] [facility] [id number] [address] [place] [address] Aug, [facility] [address] 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 [id number] [address] [place] [address] Jul, [facility] [address] [facility] [id number] [address] [place] [address] Jul, [facility] [address] [place] [id number] [place] [address] Jul, Diabetic neuropathy, painful E11.40 [place] [address] [address] Jul, Type 2 diabetes mellitus wit h complication E11.8 [facility] [address] [place] [id number] [place] [address] Jun, Diabetic neuropathy, painful E11.40 [facility] [address] [address] Jun, [facility] [address] [address] Jun, Type 2 diabetes mellitus wit h complication E11.8 ; Other viral agents as the cause of diseases classified elsewhere B97.89 ; Acute upper respiratory infection, unspecified J06.9 ; Acute recurrent maxillary sinusitis J01.01 ; Sore throat J02.9 and Headache R51 [facility] [id number] [place] [address] Jun, Right lower quadrant abdomin al pain R10.31 and Type 2 diabetes 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 E11.8 [place] [address] [place] [id number] [place] [address] May, Diabetic neuropathy, painful E11.40 [facility] [address] [place] [id number] [address] [place] [address] 06 May, 2017 COPD exacerbation J44.1 and Type 2 diabetes 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 E11.8 [facility] [address] [place] [id number] [address] [place] [address] Apr, Diabetic neuropathy, painful E11.40 [place] [address] [address] Apr, Diabetic neuropathy, painful E11.40 [facility] [place] [address] [address] Mar, Bronchitis J40 [place] [address] [address] January, Type 2 diabetes mellitus wit h complication E11.8 ; Diabetic neuropathy, painful E11.40 ; Impotence N52.9 ; Coronary atherosclerosis due to lipid rich plaque I25.83 ; nursing home 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.4 ; Interstitial lung disease J84.9 ; Hypoxia R09.02 ; Essential hypertension I10 ; Gastroesophageal reflux disease without esophagitis K21.9 ; Left upper arm pain M79.622 and Cervical spinal stenosis M48.02 [facility] [place] [address] [address] January, Viral gastroenteritis A08.4 [place] [address] [address] Dec, Diabetic neuropathy, painful E11.40 [place] [address] [place] [id number] [place] [id number] Oct, [place] [address] [address] Oct, Acute right-sided weakness M 62.89 and Slurring of speech R47.81 [place] [address] [address] Sep, Type 2 diabetes mellitus wit h complication E11.8 ; Diabetic neuropathy, painful E11.40 ; Impotence N52.9 ; Coronary atherosclerosis due to lipid rich plaque I25.83 ; nursing home 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.4 ; Interstitial lung disease J84.9 ; Hypoxia R09.02 ; Essential hypertension I10 and Gastroesophageal reflux disease without esophagitis K21.9 [facility] [address] [facility] [id number] [address] [place] [address] Sep, Bronchitis J40 [facility] [address] [facility] [id number] [address] [place] [address] Aug, Gastroenteritis and colitis, viral A08.4 [facility] [address] [facility] [id number] [address] [place] [address] Aug, [facility] [address] 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 [id number] [address] [place] [address] 30 May, 2016 Bronchitis J40 [facility] [address] [facility] [id number] [address] [place] [address] 29 May, 2016 [facility] [address] [facility] [id number] [address] [place] [address] May, Pain of right upper extremit y M79.601 [facility] [address] [facility] [id number] [address] [place] [address] May, [facility] [address] [facility] [id number] [address] [place] [address] 15 May, 2016 [facility] [address] [facility] [id number] [address] [place] [address] 07 May, 2016 Right hand pain M79.641 [facility] [address] [facility] [id number] [address] [place] [address] Apr, [facility] [address] [facility] [id number] [address] [place] [address] Apr, [facility] [address] [id number] [address] [place] [address] Mar, [facility] [address] [facility] [id number] [address] [place] [address] Mar, Essential hypertension I10 [facility] [address] [facility] [id number] [address] [place] [address] Feb, [facility] [address] [facility] [id number] [address] [place] [address] Feb, Interstitial lung disease J8 4.9 and Bronchitis J40 [place] [address] [facility] [id number] [address] [place] [address] Feb, [place] [address] 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 [id number] [address] [place] [address] January, [place] [address] [facility] [id number] [address] [place] [address] January, Arm paresthesia, right R20.2 and Pain of right upper extremity M79.601 [place] [address] [facility] [id number] [address] [place] [address] Dec, Lumbar strain S39.012A [place] [address] [facility] [id number] [address] [place] [address] Nov, Diabetic neuropathy, painful E11.40 ; Respiratory bronchiolitis interstitial lung disease J84.115 ; Pain of right upper extremity M79.601 and Arm paresthesia, right R20.2 [place] [address] [facility] [id number] [address] [place] [address] Nov, Diabetic neuropathy, painful E11.40 [facility] [address] [address] Sep, Type 2 diabetes mellitus wit h complication E11.8 ; Impotence N52.9 ; Coronary atherosclerosis due to lipid rich plaque I25.83 ; nursing home 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.4 ; Diabetic neuropathy, painful E11.40 ; Chest pain R07.9 and Restless leg G25.[address] [address] Sep, [address] [address] Jul, COPD (chronic obstructive pu lmonary disease) with acute bronchitis J44.[address] [address] Jun, Abdominal pain R10.9 ; Famil y history of colon cancer Z80.0 and Diverticulitis K57.[address] [address] Jun, Abdominal pain R10.9 and Div erticulitis K57.[address] [address] Apr, Diabetes with other specifie d manifestations, type II or unspecified type, not stated as uncontrolled 250.80 ; Coronary atherosclerosis of unspecified type of vessel, [place] or graft 414.00 ; Unspecified essential hypertension 401.9 ; Impotence of organic origin 607.84 ; Sleep apnea 780.57 and Interstitial lung disease [address] [address] Dec, [address] [address] Dec, [address] [address] Nov, [address] [address] Nov, [facility] [address] [id number] [address] [place] [address], [place] [address] Nov, [facility] [address] [id number] [address] [place] [address], [place] [address] Nov, [facility] [address] [id number] [address] [place] [address], [place] [address] Nov, [facility] [address] [id number] [address] [place] [address], [place] [address] Nov, [facility] [address] [id number] [address] [place] [address], [place] [address] Nov, [facility] [address] [id number] [address] [place] [address], [place] [address] Nov, [facility] [address] [id number] [address] [place] [address], [place] [address] Nov, [facility] [address] [id number] [address] [place] [address], [place] [address] Nov, [facility] [address] [id number] [address] [place] [address], [place] [address] Oct, [facility] [address] [id number] [address] [place] [address], [place] [address] Oct, 2014 [facility] [address] [id number] [address] [place] [address], [place] [address] Oct, 2014 [facility] [address] [id number] [address] [place] [address] Oct, 2014 [facility] [address] [id number] [address] [place] [address], [place] [address] Oct, 2014 [facility] [address] [id number] [address] [place] [address], [place] [address] Oct, 2014 [facility] [address] [id number] [address] [place] [address], [place] [address] Oct, 2014 [facility] [address] [id number] [address] [place] [address], [place] [address] 04 Oct, 2014 [facility] [address] [id number] [address] [place] [address], [place] [address] Oct, 2014 [facility] [address] [id number] [address] [place] [address], [place] [address] Oct, 2014 [facility] [address] [id number] [address] [place] [address], [place] [address] Oct, 2014 [facility] [address] [id number] [address] [place] [address], [place] [address] Jul, [facility] [address] [id number] [address] [place] [address], [place] [address] Jul, [facility] [address] [id number] [address] [place] [address], [place] [address] Jun, [facility] [address] [id number] [address] [place] [address], [place] [address] 29 Jun, 2014 [facility] [address] [id number] [address] [place] [address], [place] [address] Jun, [facility] [address] [id number] [address] [place] [address], [place] [address] 17 Jun, 2014 [facility] [address] [id number] [address] [place] [address], [place] [address] 15 Jun, 2014 [facility] [address] [id number] [address] [place] [address], [place] [address] 15 Jun, 2014 [facility] [address] [id number] [address] [place] [address], [place] [address] 14 Jun, 2014 [facility] [address] [id number] [address] [place] [address], [place] [address] 14 Jun, 2014 [facility] [address] [id number] [address] [place] [address], [place] [address] 13 Jun, 2014 [facility] [address] [id number] [address] [place] [address], [place] [address] Jun, [facility] [address] [id number] [address] [place] [address], [place] [address] 08 Jun, 2014 [facility] [address] [id number] [address] [place] [address], [place] [address] 08 Jun, 2014 [facility] [address] [id number] [address] [place] [address], [place] [address] Jun, [facility] [address] [id number] [address] [place] [address], [place] [address] Jun, [facility] [address] [id number] [address] [place] [address], [place] [address] 30 May, 2014 [facility] [address] [id number] [address] [place] [address], [place] [address] 30 May, 2014 [facility] [address] [id number] [address] [place] [address], [place] [address] May, [facility] [address] [id number] [address] [place] [address], [place] [address] May, [facility] [address] [id number] [address] [place] [address], [place] [address] 05 May, 2014 [facility] [address] [id number] [address] [place] [address], [place] [address] 05 May, 2014 [facility] [address] [id number] [address] [place] [address], [place] [address] Apr, [facility] [address] [id number] [address] [place] [address], [place] [address] Apr, [facility] [address] [id number] [address] [place] [address], [place] [address] Apr, [facility] [address] [id number] [address] [place] [address], [place] [address] Apr, [facility] [address] [id number] [address] [place] [address], [place] [address] Apr, [facility] [address] [id number] [address] [place] [address], [place] [address] Apr, [facility] [address] [id number] [facility] [place] [address] Apr, [facility] [address] [id number] [facility] [place] [address] Apr, [facility] [address] [id number] [facility] [place] [address] Apr, [facility] [address] [id number] [address] [place] [address], [place] [address] Apr, [facility] [address] [id number] [address] [place] [address], [place] [address] Apr, [facility] [address] [id number] [address] [place] [address], [place] [address] Apr, [facility] [address] [id number] [address] [place] [address], [place] [address] Mar, [facility] [address] [id number] [address] [place] [address], [place] [address] Mar, [facility] [address] [id number] [address] [place] [address], [place] [address] Mar, [facility] [address] [id number] [address] [place] [address], [place] [address] Mar, [facility] [address] [id number] [address] [place] [address], [place] [address] Mar, [facility] [address] [id number] [address] [place] [address], [place] [address] Mar, [facility] [address] [id number] [address] [place] [address], [place] [address] Mar, [facility] [address] [id number] [address] [place] [address], [place] [address] Mar, [facility] [address] [id number] [address] [place] [address], [place] [address] Mar, [facility] [address] [id number] [facility] [place] [address] Mar, [facility] [address] [id number] [facility] [place] [address] Mar, [facility] [address] [id number] [facility] [place] [address] Feb, [facility] [address] [id number] [facility] [place] [address] Feb, [facility] [address] [id number] [address] [place] [address], [place] [address] Feb, [facility] [address] [id number] [address] [place] [address], [place] [address] Feb, [facility] [address] [id number] [address] [place] [address], [place] [address] Feb, [facility] [address] [id number] [address] [place] [address], [place] [address] Feb, [facility] [address] [id number] [address] [place] [address], [place] [address] Feb, [facility] [address] [id number] [address] [place] [address], [place] [address] Feb, [facility] [address] [id number] [address] [place] [address], [place] [address] Feb, [facility] [address] [id number] [address] [place] [address], [place] [address] Feb, [facility] [address] [id number] [address] [place] [address], [place] [address] January, [facility] [address] [id number] [address] [place] [address], [place] [address] January, [facility] [address] [id number] [address] [place] [address], [place] [address] January, [facility] [address] [id number] [address] [place] [address], [place] [address] January, [facility] [address] [id number] [facility] [place] [address] January, [facility] [address] [id number] [address] [place] [address], [place] [address] January, [facility] [address] [id number] [address] [place] [address], [place] [address] January, [facility] [address] [id number] [address] [place] [address], [place] [address] January, [facility] [address] [id number] [address] [place] [address], [place] [address] January, [facility] [address] [id number] [address] [place] [address], [place] [address] January, [facility] [address] [id number] [address] [place] [address], [place] [address] January, [facility] [address] [id number] [address] [place] [address], [place] [address] January, [facility] [address] [id number] [address] [place] [address], [place] [address] January, [facility] [address] [id number] [address] [place] [address], [place] [address] January, [facility] [address] [id number] [address] [place] [address], [place] [address] January, [facility] [address] [id number] [address] [place] [address], [place] [address] January, [facility] [address] [id number] [address] [place] [address], [place] [address] Dec, [facility] [address] [id number] [address] [place] [address], [place] [address] Dec, [facility] [address] [id number] [address] [place] [address], [place] [address] Dec, [facility] [address] [id number] [address] [place] [address], [place] [address] 17 Dec, 2013 [facility] [address] [id number] [address] [place] [address], [place] [address] Dec, [facility] [address] [id number] [address] [place] [address], [place] [address] Dec, [facility] [address] [id number] [address] [place] [address], [place] [address] Dec, [facility] [address] [id number] [address] [place] [address], [place] [address] Dec, [facility] [address] [id number] [address] [place] [address], [place] [address] Dec, [facility] [address] [id number] [address] [place] [address], [place] [address] Dec, [facility] [address] [id number] [address] [place] [address], [place] [address] Nov, [facility] [address] [id number] [address] [place] [address], [place] [address] Nov, [facility] [address] [id number] [address] [place] [address], [place] [address] Oct, [facility] [address] [id number] [address] [place] [address], [place] [address] Oct, [facility] [address] [id number] [address] [place] [address], [place] [address] Oct, [facility] [address] [id number] [address] [place] [address], [place] [address] Sep, [facility] [address] [id number] [address] [place] [place] [address], [place] [address] Sep, [facility] [address] [id number] [address] [place] [address], [place] [address] Sep, [facility] [address] [id number] [address] [place] [address], [place] [address] Sep, [facility] [address] [id number] [address] [place] [address], [place] [address] Sep, [facility] [address] [id number] [address] [place] [address], [place] [address] Sep, [facility] [address] [id number] [address] [place] [address], [place] [address] Sep, [facility] [address] [id number] [address] [place] [address], [place] [address] Sep, [facility] [address] [id number] [address] [place] [address], [place] [address] Sep, [facility] [address] [id number] [address] [place] [address], [place] [address] Sep, [facility] [address] [id number] [address] [place] [address], [place] [address] Sep, [facility] [address] [id number] [address] [place] [address], [place] [address] Sep, [facility] [address] [id number] [address] [place] [address], [place] [address] Aug, [facility] [address] [id number] [address] [place] [address], [place] [address] Aug, [facility] [address] [id number] [address] [place] [address], [place] [address] Aug, [facility] [address] [id number] [address] [place] [address], [place] [address] Aug, [facility] [address] [id number] [address] [place] [address], [place] [address] Jul, [facility] [address] [id number] [address] [place] [address], [place] [address] Jul, [facility] [address] [id number] [address] [place] [address], [place] [address] Jun, [facility] [address] [id number] [address] [place] [address] [place] [address] 30 Jun, 2013 [facility] [address] [id number] [address] [place] [address], [place] [address] Jun, [facility] [address] [id number] [address] [place] [address], [place] [address] Jun, [facility] [address] [id number] [address] [place] [address], [place] [address] Jun, [facility] [address] [id number] [address] [place] [address], [place] [address] Jun, [facility] [address] [id number] [address] [place] [address], [place] [address] Jun, [facility] [address] [id number] [address] [place] [address], [place] [address] Jun, [facility] [address] [id number] [address] [place] [address], [place] [address] 24 May, 2012 [facility] [address] [id number] [address] [place] [address], [place] [address] 23 May, 2012 [facility] [address] [id number] [address] [place] [address], [place] [address] 18 May, 2012 [facility] [address] [id number] [address] [place] [address], [place] [address] 13 May, 2012 [facility] [address] [id number] [address] [place] [address], [place] [address] 11 May, 2012 [facility] [address] [id number] [address] [place] [address], [place] [address] 06 May, 2012 [facility] [address] [id number] [address] [place] [address], [place] [address] 03 May, 2012 [facility] [address] [id number] [address] [place] [address], [place] [address] 30 Apr, 2013 [facility] [address] [id number] [address] [place] [address], [place] [address] 22 Apr, 2013 [facility] [address] [id number] [address] [place] [address], [place] [address] Apr, [facility] [address] [id number] [address] [place] [address], [place] [address] Apr, [facility] [address] [id number] [address] [place] [address], [place] [address] Apr, [facility] [address] [id number] [address] [place] [address], [place] [address] Apr, [facility] [address] [id number] [address] [place] [address], [place] [address] Apr, [facility] [address] [id number] [address] [place] [address], [place] [address] Mar, [facility] [address] [id number] [address] [place] [address], [place] [address] Mar, [facility] [address] [id number] [address] [place] [address], [place] [address] Mar, [facility] [address] [id number] [address] [place] [address], [place] [address] Mar, [facility] [address] [id number] [address] [place] [address], [place] [address] Mar, [facility] [address] [id number] [address] [place] [address], [place] [address] Mar, [facility] [address] [id number] [address] [place] [address], [place] [address] Mar, [facility] [address] [id number] [address] [place] [address], [place] [address] Mar, [facility] [address] [id number] [address] [place] [address], [place] [address] Feb, [facility] [address] [id number] [address] [place] [address], [place] [address] Feb, [facility] [address] [id number] [address] [place] [address], [place] [address] Feb, [facility] [address] [id number] [address] [place] [address], [place] [address] January, [facility] [address] [id number] [address] [place] [address], [place] [address] January, [facility] [address] [id number] [address] [place] [address], [place] [address] January, [facility] [address] [id number] [address] [place] [address], [place] [address] January, [facility] [address] [id number] [address] [place] [address], [place] [address] January, [facility] [address] [id number] [address] [place] [address], [place] [address] January, [facility] [address] [id number] [address] [place] [address], [place] [address] January, [facility] [address] [id number] [address] [place] [address], [place] [address] January, [facility] [address] [id number] [address] [place] [address], [place] [address] Dec, [facility] [address] [id number] [address] [place] [address], [place] [address] Dec, [facility] [address] [id number] [address] [place] [address], [place] [address] Dec, [facility] [address] [id number] [address] [place] [address], [place] [address] Dec, [facility] [address] [id number] [address] [place] [address], [place] [address] Dec, [facility] [address] [id number] [address] [place] [address], [place] [address] Nov, [facility] [address] [id number] [address] [place] [address], [place] [address] Nov, [facility] [address] [id number] [address] [place] [address], [place] [address] 19 Nov, 2012 [facility] [address] [id number] [address] [place] [address], [place] [address] 18 Nov, 2012 [facility] [address] [id number] [address] [place] [address], [place] [address] 18 Nov, 2012 [facility] [address] [id number] [address] [place] [address], [place] [address] 14 Nov, 2012 [facility] [address] [id number] [address] [place] [address], [place] [address] 11 Nov, 2012 [facility] [address] [id number] [address] [place] [address], [place] [address] 11 Nov, 2012 [facility] [address] [id number] [address] [place] [address], [place] [address] 21 Oct, 2012 [facility] [address] [id number] [address] [place] [address], [place] [address] 21 Oct, 2012 [facility] [address] [id number] [address] [place] [address], [place] [address] 12 Oct, 2012 [facility] [address] [id number] [address] [place] [address], [place] [address] 08 Oct, 2012 [facility] [address] [id number] [address] [place] [address], [place] [address] 07 Oct, 2012 [facility] [address] [id number] [address] [place] [address], [place] [address] 07 Oct, 2012 [facility] [address] [id number] [address] [place] [address], [place] [address] 05 Oct, 2012 [facility] [address] [id number] [address] [place] [address], [place] [address] 04 Oct, 2012 [facility] [address] [id number] [address] [place] [address], [place] [address] 04 Oct, 2012 [facility] [address] [id number] [address] [place] [address], [place] [address] Sep, [facility] [address] [id number] [address] [place] [address], [place] [address] Sep, [facility] [address] [id number] [address] [place] [address], [place] [address] Sep, [facility] [address] [id number] [address] [place] [address], [place] [address] Sep, [facility] [address] [id number] [address] [place] [address], [place] [address] Sep, [facility] [address] [id number] [address] [place] [address], [place] [address] Sep, [facility] [address] [id number] [address] [place] [address], [place] [address] Aug, [facility] [address] [id number] [address] [place] [address], [place] [address] Aug, [facility] [address] [id number] [address] [place] [address], [place] [address] Aug, [facility] [address] [id number] [address] [place] [address], [place] [address] Aug, [facility] [address] [id number] [address] [place] [address], [place] [address] Aug, [facility] [address] [id number] [address] [place] [address], [place] [address] 18 Aug, 2012 [facility] [address] [id number] [address] [place] [address], [place] [address] 13 Aug, 2012 [facility] [address] [id number] [address] [place] [address], [place] [address] Aug, [facility] [address] [id number] [address] [place] [address], [place] [address] Aug, [facility] [address] [id number] [address] [place] [address], [place] [address] Jul, [facility] [address] [id number] [address] [place] [address] Jul, [facility] [address] [id number] [address] [place] [address] Jul, [facility] [address] [id number] [address] [place] [address] Jul, [facility] [address] [facility] [id number] [address] [place] [address] Nov, [facility] [address] [facility] [id number] [address] [place] [address] Sep, [facility] [address] [facility] [id number] [address] [place] [address] Aug, [facility] [address] [facility] [id number] [address] [place] [address] Aug, [facility] [address] [facility] [id number] [address] [place] [address] Aug, [facility] [address] [facility] [id number] [address] [place] [address] Jul, IMMUNIZATIONS No Known Immunizations SOCIAL HISTORY Never Assessed REASON FOR VISIT PLAN OF CARE VITAL SIGNS MEDICATIONS Unknown Medications RESULTS No Results PROCEDURES Procedure Date Ordered Result Body Site COMPLETE CBC W/AUTO DIFF WBC Jun 30, 2014 BASIC METABOLIC PANEL Jun 30, 2014 VENIPUNCT, ROUTINE* Jun 30, 2014 INSTRUCTIONS MEDICATIONS ADMINISTERED No Known Medications MEDICAL (GENERAL) HISTORY Type Description Date Medical History hypertension Medical History interstitial lung disease Medical History sleep apnea-severe RENAE uses BiPAP Medical History gastroesophageal reflux disease (GERD) Medical History hyperlipidemia Medical History type II diabetes Medical History degenerative disease lumbosacral spine w ith radiculopathy Medical History restless leg syndrome Medical History TIA Medical History neuropathy Medical History depression Medical History hx of narcotic abuse/misuse Medical History Other and unspecified alcoho l dependence, unspecified drunkenness Medical History Ulcer of other part of foot 2013 Medical History hernia Medical History Combinations of drug depende nce excluding opioid type drug, unspecified abuse Medical History Major depressive disorder, recurrent epi sode, moderate Medical History Restless legs syndrome [RLS] Medical History Unspecified alveolar and parietoalveolar pneumonopathy Medical History Colonoscopy 2014 Dr. Nava Surgical History heart cath-40-50% ostial LAD stenosis, mild irregularity in the diatal LAD, EF 40% w/ hypokinesia involving the interior wall possible LBBB 11/2011 Surgical History transesophageal echocardiogram-EF 55-60% , normal RVSP 04/2013 Surgical History heart cath-50% occlusion of proximal LAD, no stent--Lupe to monitor 09/2013 Surgical History laminectomy with discectomy/ cervical spine fusion C4-6 05/2005 and 02/2006 Surgical History arthroscopic knee surgery-right 05/2005 [facility] Colonoscopy Elijah (1 Polyp) repeat 5 year s 2019 2014 Surgical History right rotator cuff surgery 06/27/2016 Hospitalization History Overdosed on Clonazepam #35. Lori melendrez 03/2014 Hospitalization History Overdosed on Xanax 07/2012 Hospitalization History Hypostension-medication side effect-[facility] 03/13/16
--- OUTSIDE RECORDS SUMMARY | 2019-09-11 12:29 | XMS REPORT ---
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 Active 667325935 Problem Abdominal pain R10.9 Active 48518 001 Problem Change in bowel habit R19.4 Active 92944636 Problem Coronary atherosclerosis due to lipid rich plaque I25.83 Active 48882139 Problem Type 2 diabetes 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 E11.8 Active 12733732 Problem Impotence N52.9 Active 627306140 Problem Family history of colon cancer Z80.0 Active 245260032 Problem Diabetic neuropathy, painful E11.40 A ctive 676432455 Problem Arm paresthesia, right R20.2 Active 56066324 Problem Gastroesophageal reflux disease without esophagitis K21.9 Active 100490080 Problem Drug abuse, opioid type F11.10 Active 7504771 Problem COPD exacerbation J44.1 Active 19 0590126 Problem Obstructive sleep apnea syndrome G47.33 Active 42314754 Problem Diverticulitis K57.92 Active 64130 6006 Problem Pain of right upper extremity M79.601 Active 004844372 Problem Respiratory bronchiolitis interstitial lung disease J84.115 Active 202401472 Problem Hypoxia R09.02 Active 366020147 Problem Interstitial lung disease J84.9 Acti ve [id number] ALLERGIES No Information ENCOUNTERS Encounter Location Date Diagnosis [facility] [address] [facility] [id number] [address] [place] [address] Aug, [facility] [address] [facility] [id number] [address] [place] [address] Aug, Diabetic neuropathy, painful E11.40 ; Interstitial lung disease J84.9 ; Chronic cough R05 ; Type 2 diabetes 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 E11.8 and 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 [facility] [address] [facility] [id number] [address] [place] [address] Jul, [facility] [address] [facility] [id number] [address] [place] [address] Jul, [facility] [address] [place] [id number] [place] [address] Jul, Diabetic neuropathy, painful E11.40 [place] [address] [address] Jul, Type 2 diabetes mellitus wit h complication E11.8 [facility] [address] [place] [id number] [place] [address] Jun, Diabetic neuropathy, painful E11.40 [facility] [address] [address] Jun, [facility] [address] [address] Jun, Type 2 diabetes mellitus wit h complication E11.8 ; Other viral agents as the cause of diseases classified elsewhere B97.89 ; Acute upper respiratory infection, unspecified J06.9 ; Acute recurrent maxillary sinusitis J01.01 ; Sore throat J02.9 and Headache R51 [facility] [id number] [place] [address] Jun, Right lower quadrant abdomin al pain R10.31 and Type 2 diabetes 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 E11.8 [place] [address] [place] [id number] [place] [address] May, Diabetic neuropathy, painful E11.40 [facility] [address] [place] [id number] [address] [place] [address] 06 May, 2017 COPD exacerbation J44.1 and Type 2 diabetes 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 E11.8 [facility] [address] [place] [id number] [place] [address] Apr, Diabetic neuropathy, painful E11.40 [place] [address] [address] Apr, Diabetic neuropathy, painful E11.[address] [facility] WALK [facility] [place] [address] [address] Mar, Bronchitis J40 [place] [address] [address] January, Type 2 diabetes mellitus wit h complication E11.8 ; Diabetic neuropathy, painful E11.40 ; Impotence N52.9 ; Coronary atherosclerosis due to lipid rich plaque I25.83 ; residential 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.4 ; Interstitial lung disease J84.9 ; Hypoxia R09.02 ; Essential hypertension I10 ; Gastroesophageal reflux disease without esophagitis K21.9 ; Left upper arm pain M79.622 and Cervical spinal stenosis M48.[address] [facility] [place] [address] [address] January, Viral gastroenteritis A08.4 [place] [address] [address] Dec, Diabetic neuropathy, painful E11.40 [place] [address] [address] [place] [id number] [place] [id number] Oct, [place] [address] [address] Oct, Acute right-sided weakness M 62.89 and Slurring of speech R47.81 [place] [address] [address] Sep, Type 2 diabetes mellitus wit h complication E11.8 ; Diabetic neuropathy, painful E11.40 ; Impotence N52.9 ; Coronary atherosclerosis due to lipid rich plaque I25.83 ; residential 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.4 ; Interstitial lung disease J84.9 ; Hypoxia R09.02 ; Essential hypertension I10 and Gastroesophageal reflux disease without esophagitis K21.9 [facility] [address] [facility] [id number] [address] [place] [address] Sep, Bronchitis J40 [facility] [address] [facility] [id number] [address] [place] [address] Aug, Gastroenteritis and colitis, viral A08.4 [facility] [address] [facility] [id number] [address] [place] [address] Aug, [facility] [address] [facility] [id number] [address] [place] [address] Jun, Type 2 diabetes mellitus wit h complication E11.8 ; Diabetic neuropathy, painful E11.40 ; Impotence N52.9 ; Coronary atherosclerosis due to lipid rich plaque I25.83 ; 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 ; Interstitial lung disease J84.9 ; Hypoxia R09.02 and Essential hypertension I10 [facility] [address] [facility] [id number] [address] [place] [address] 30 May, 2016 Bronchitis J40 [facility] [address] [facility] [id number] [address] [place] [address] 29 May, 2016 [facility] [address] [facility] [id number] [address] [place] [address] May, Pain of right upper extremit y M79.601 [facility] [address] [facility] [id number] [address] [place] [address] May, [facility] [address] [facility] [id number] [address] [place] [address] 15 May, 2016 [facility] [address] [facility] [id number] [address] [place] [address] 07 May, 2016 Right hand pain M79.641 [facility] [address] [facility] [id number] [address] [place] [address] Apr, [facility] [address] [facility] [id number] [address] [place] [address] Apr, [facility] [address] [id number] [address] [place] [address] Mar, [facility] [address] [facility] [id number] [address] [place] [address] Mar, Essential hypertension I10 [facility] [address] [facility] [id number] [address] [place] [address] Feb, [facility] [address] [facility] [id number] [address] [place] [address] Feb, Interstitial lung disease J8 4.9 and Bronchitis J40 [place] [address] [facility] [id number] [address] [place] [address] Feb, [place] [address] [facility] [id number] [address] [place] [address] Feb, Type 2 diabetes mellitus wit h complication E11.8 ; Impotence N52.9 ; Coronary atherosclerosis due to lipid rich plaque I25.83 ; 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 and Diabetic neuropathy, painful E11.40 [place] [address] [facility] [id number] [address] [place] [address] January, [place] [address] [facility] [id number] [address] [place] [address] January, Arm paresthesia, right R20.2 and Pain of right upper extremity M79.601 [place] [address] [facility] [id number] [address] [place] [address] Dec, Lumbar strain S39.012A [place] [address] [facility] [id number] [address] [place] [address] Nov, Diabetic neuropathy, painful E11.40 ; Respiratory bronchiolitis interstitial lung disease J84.115 ; Pain of right upper extremity M79.601 and Arm paresthesia, right R20.2 [place] [address] [facility] [id number] [address] [place] [address] Nov, Diabetic neuropathy, painful E11.[address] [facility] [address] Sep, Type 2 diabetes mellitus wit h complication E11.8 ; Impotence N52.9 ; Coronary atherosclerosis due to lipid rich plaque I25.83 ; residential 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.4 ; Diabetic neuropathy, painful E11.40 ; Chest pain R07.9 and Restless leg G25.[address] [address] Sep, [address] [address] Jul, COPD (chronic obstructive pu lmonary disease) with acute bronchitis J44.[address] [address] Jun, Abdominal pain R10.9 ; Famil y history of colon cancer Z80.0 and Diverticulitis K57.[address] [address] Jun, Abdominal pain R10.9 and Div erticulitis K57.[address] [address] Apr, Diabetes with other specifie d manifestations, type II or unspecified type, not stated as uncontrolled 250.80 ; Coronary atherosclerosis of unspecified type of vessel, pechanga or graft 414.00 ; Unspecified essential hypertension 401.9 ; Impotence of organic origin 607.84 ; Sleep apnea 780.57 and Interstitial lung disease [address] [address] Dec, [address] [address] Dec, [address] [address] Nov, [address] [address] Nov, [facility] [address] [id number] [address] [place] [address], [place] [address] Nov, [facility] [address] [id number] [address] [place] [address], [place] [address] Nov, [facility] [address] [id number] [address] [place] [address], [place] [address] Nov, [facility] [address] [id number] [address] [place] [address], [place] [address] Nov, [facility] [address] [id number] [address] [place] [address], [place] [address] Nov, [facility] [address] [id number] [address] [place] [address], [place] [address] Nov, [facility] [address] [id number] [address] [place] [address], [place] [address] Nov, [facility] [address] [id number] [address] [place] [address], [place] [address] Nov, [facility] [address] [id number] [address] [place] [address], [place] [address] Oct, [facility] [address] [id number] [address] [place] [address], [place] [address] Oct, 2014 [facility] [address] [id number] [address] [place] [address], [place] [address] Oct, 2014 [facility] [address] [id number] [address] [place] [address] Oct, 2014 [facility] [address] [id number] [address] [place] [address], [place] [address] Oct, 2014 [facility] [address] [id number] [address] [place] [address], [place] [address] Oct, 2014 [facility] [address] [id number] [address] [place] [address], [place] [address] Oct, 2014 [facility] [address] [id number] [address] [place] [address], [place] [address] 04 Oct, 2014 [facility] [address] [id number] [address] [place] [address], [place] [address] Oct, 2014 [facility] [address] [id number] [address] [place] [address], [place] [address] Oct, 2014 [facility] [address] [id number] [address] [place] [address], [place] [address] Oct, 2014 [facility] [address] [id number] [address] [place] [address], [place] [address] Jul, [facility] [address] [id number] [address] [place] [address], [place] [address] Jul, [facility] [address] [id number] [address] [place] [address], [place] [address] Jun, [facility] [address] [id number] [address] [place] [address], [place] [address] 29 Jun, 2014 [facility] [address] [id number] [address] [place] [address], [place] [address] Jun, [facility] [address] [id number] [address] [place] [address], [place] [address] 17 Jun, 2014 [facility] [address] [id number] [address] [place] [address], [place] [address] 15 Jun, 2014 [facility] [address] [id number] [address] [place] [address], [place] [address] 15 Jun, 2014 [facility] [address] [id number] [address] [place] [address], [place] [address] 14 Jun, 2014 [facility] [address] [id number] [address] [place] [address], [place] [address] 14 Jun, 2014 [facility] [address] [id number] [address] [place] [address], [place] [address] 13 Jun, 2014 [facility] [address] [id number] [address] [place] [address], [place] [address] Jun, [facility] [address] [id number] [address] [place] [address], [place] [address] 08 Jun, 2014 [facility] [address] [id number] [address] [place] [address], [place] [address] 08 Jun, 2014 [facility] [address] [id number] [address] [place] [address], [place] [address] Jun, [facility] [address] [id number] [address] [place] [address], [place] [address] Jun, [facility] [address] [id number] [address] [place] [address], [place] [address] 30 May, 2014 [facility] [address] [id number] [address] [place] [address], [place] [address] 30 May, 2014 [facility] [address] [id number] [address] [place] [address], [place] [address] May, [facility] [address] [id number] [address] [place] [address], [place] [address] May, [facility] [address] [id number] [address] [place] [address], [place] [address] 05 May, 2014 [facility] [address] [id number] [address] [place] [address], [place] [address] 05 May, 2014 [facility] [address] [id number] [address] [place] [address], [place] [address] Apr, [facility] [address] [id number] [address] [place] [address], [place] [address] Apr, [facility] [address] [id number] [address] [place] [address], [place] [address] Apr, [facility] [address] [id number] [address] [place] [address], [place] [address] Apr, [facility] [address] [id number] [address] [place] [address], [place] [address] Apr, [facility] [address] [id number] [address] [place] [address], [place] [address] Apr, [facility] [address] [id number] [facility] [place] [address] Apr, [facility] [address] [id number] [facility] [place] [address] Apr, [facility] [address] [id number] [facility] [place] [address] Apr, [facility] [address] [id number] [address] [place] [address], [place] [address] Apr, [facility] [address] [id number] [address] [place] [address], [place] [address] Apr, [facility] [address] [id number] [address] [place] [address], [place] [address] Apr, [facility] [address] [id number] [address] [place] [address], [place] [address] Mar, [facility] [address] [id number] [address] [place] [address], [place] [address] Mar, [facility] [address] [id number] [address] [place] [address], [place] [address] Mar, [facility] [address] [id number] [address] [place] [address], [place] [address] Mar, [facility] [address] [id number] [address] [place] [address], [place] [address] Mar, [facility] [address] [id number] [address] [place] [address], [place] [address] Mar, [facility] [address] [id number] [address] [place] [address], [place] [address] Mar, [facility] [address] [id number] [address] [place] [address], [place] [address] Mar, [facility] [address] [id number] [address] [place] [address], [place] [address] Mar, [facility] [address] [id number] [facility] [place] [address] Mar, [facility] [address] [id number] [facility] [place] [address] Mar, [facility] [address] [id number] [facility] [place] [address] Feb, [facility] [address] [id number] [facility] [place] [address] Feb, [facility] [address] [id number] [address] [place] [address], [place] [address] Feb, [facility] [address] [id number] [address] [place] [address], [place] [address] Feb, [facility] [address] [id number] [address] [place] [address], [place] [address] Feb, [facility] [address] [id number] [address] [place] [address], [place] [address] Feb, [facility] [address] [id number] [address] [place] [address], [place] [address] Feb, [facility] [address] [id number] [address] [place] [address], [place] [address] Feb, [facility] [address] [id number] [address] [place] [address], [place] [address] Feb, [facility] [address] [id number] [address] [place] [address], [place] [address] Feb, [facility] [address] [id number] [address] [place] [address], [place] [address] January, [facility] [address] [id number] [address] [place] [address], [place] [address] January, [facility] [address] [id number] [address] [place] [address], [place] [address] January, [facility] [address] [id number] [address] [place] [address], [place] [address] January, [facility] [address] [id number] [facility] [place] [address] January, [facility] [address] [id number] [address] [place] [address], [place] [address] January, [facility] [address] [id number] [address] [place] [address], [place] [address] January, [facility] [address] [id number] [address] [place] [address], [place] [address] January, [facility] [address] [id number] [address] [place] [address], [place] [address] January, [facility] [address] [id number] [address] [place] [address], [place] [address] January, [facility] [address] [id number] [address] [place] [address], [place] [address] January, [facility] [address] [id number] [address] [place] [address], [place] [address] January, [facility] [address] [id number] [address] [place] [address], [place] [address] January, [facility] [address] [id number] [address] [place] [address], [place] [address] January, [facility] [address] [id number] [address] [place] [address], [place] [address] January, [facility] [address] [id number] [address] [place] [address], [place] [address] January, [facility] [address] [id number] [address] [place] [address], [place] [address] Dec, [facility] [address] [id number] [address] [place] [address], [place] [address] Dec, [facility] [address] [id number] [address] [place] [address], [place] [address] Dec, [facility] [address] [id number] [address] [place] [address], [place] [id number] 17 Dec, 2013 [facility] [address] [id number] [address] [place] [address], [place] [address] Dec, [facility] [address] [id number] [address] [place] [address], [place] [address] Dec, [facility] [address] [id number] [address] [place] [address], [place] [address] Dec, [facility] [address] [id number] [address] [place] [address], [place] [address] Dec, [facility] [address] [id number] [address] [place] [address], [place] [address] Dec, [facility] [address] [id number] [address] [place] [address], [place] [address] Dec, [facility] [address] [id number] [address] [place] [address], [place] [address] Nov, [facility] [address] [id number] [address] [place] [address], [place] [address] Nov, [facility] [address] [id number] [address] [place] [address], [place] [address] Oct, [facility] [address] [id number] [address] [place] [address], [place] [address] Oct, [facility] [address] [id number] [address] [place] [address], [place] [address] Oct, [facility] [address] [id number] [address] [place] [address], [place] [address] Sep, [facility] [address] [id number] [address] [place] [address], [place] [address] Sep, [facility] [address] [id number] [address] [place] [address], [place] [address] Sep, [facility] [address] [id number] [address] [place] [address], [place] [address] Sep, [facility] [address] [id number] [address] [place] [address], [place] [address] Sep, [facility] [address] [id number] [address] [place] [address], [place] [address] Sep, [facility] [address] [id number] [address] [place] [address], [place] [address] Sep, [facility] [address] [id number] [address] [place] [address], [place] [address] Sep, [facility] [address] [id number] [address] [place] [address], [place] [address] Sep, [facility] [address] [id number] [address] [place] [address], [place] [address] Sep, [facility] [address] [id number] [address] [place] [address], [place] [address] Sep, [facility] [address] [id number] [address] [place] [address], [place] [address] Sep, [facility] [address] [id number] [address] [place] [address], [place] [address] Aug, [facility] [address] [id number] [address] [place] [address], [place] [address] Aug, [facility] [address] [id number] [address] [place] [address], [place] [address] Aug, [facility] [address] [id number] [address] [place] [address], [place] [address] Aug, [facility] [address] [id number] [address] [place] [address], [place] [address] Jul, [facility] [address] [id number] [address] [place] [address], [place] [address] Jul, [facility] [address] [id number] [address] [place] [address], [place] [address] Jun, [facility] [address] [id number] [address] [place] [address] [place] [address] 30 Jun, 2013 [facility] [address] [id number] [address] [place] [address], [place] [address] Jun, [facility] [address] [id number] [address] [place] [address], [place] [address] Jun, [facility] [address] [id number] [address] [place] [address], [place] [address] Jun, [facility] [address] [id number] [address] [place] [address], [place] [address] Jun, [facility] [address] [id number] [address] [place] [address], [place] [address] Jun, [facility] [address] [id number] [address] [place] [address], [place] [address] Jun, [facility] [address] [id number] [address] [place] [address], [place] [address] 24 May, 2012 [facility] [address] [id number] [address] [place] [address], [place] [address] 23 May, 2012 [facility] [address] [id number] [address] [place] [address], [place] [address] 18 May, 2012 [facility] [address] [id number] [address] [place] [address], [place] [address] 13 May, 2012 [facility] [address] [id number] [address] [place] [address], [place] [address] 11 May, 2012 [facility] [address] [id number] [address] [place] [address], [place] [address] 06 May, 2012 [facility] [address] [id number] [address] [place] [address], [place] [address] 03 May, 2012 [facility] [address] [id number] [address] [place] [address], [place] [address] 30 Apr, 2013 [facility] [address] [id number] [address] [place] [address], [place] [address] 22 Apr, 2013 [facility] [address] [id number] [address] [place] [address], [place] [address] Apr, [facility] [address] [id number] [address] [place] [address], [place] [address] Apr, [facility] [address] [id number] [address] [place] [address], [place] [address] Apr, [facility] [address] [id number] [address] [place] [address], [place] [address] Apr, [facility] [address] [id number] [address] [place] [address], [place] [address] Apr, [facility] [address] [id number] [address] [place] [address], [place] [address] Mar, [facility] [address] [id number] [address] [place] [address], [place] [address] Mar, [facility] [address] [id number] [address] [place] [address], [place] [address] Mar, [facility] [address] [id number] [address] [place] [address], [place] [address] Mar, [facility] [address] [id number] [address] [place] [address], [place] [address] Mar, [facility] [address] [id number] [address] [place] [address], [place] [address] Mar, [facility] [address] [id number] [address] [place] [address], [place] [address] Mar, [facility] [address] [id number] [address] [place] [address], [place] [address] Mar, [facility] [address] [id number] [address] [place] [address], [place] [address] Feb, [facility] [address] [id number] [address] [place] [address], [place] [address] Feb, [facility] [address] [id number] [address] [place] [address], [place] [address] Feb, [facility] [address] [id number] [address] [place] [address], [place] [address] January, [facility] [address] [id number] [address] [place] [address], [place] [address] January, [facility] [address] [id number] [address] [place] [address], [place] [address] January, [facility] [address] [id number] [address] [place] [address], [place] [address] January, [facility] [address] [id number] [address] [place] [address], [place] [address] January, [facility] [address] [id number] [address] [place] [address], [place] [address] January, [facility] [address] [id number] [address] [place] [address], [place] [address] January, [facility] [address] [id number] [address] [place] [address], [place] [address] January, [facility] [address] [id number] [address] [place] [address], [place] [address] Dec, [facility] [address] [id number] [address] [place] [address], [place] [address] Dec, [facility] [address] [id number] [address] [place] [address], [place] [address] Dec, [facility] [address] [id number] [address] [place] [address], [place] [address] Dec, [facility] [address] [id number] [address] [place] [address], [place] [address] Dec, [facility] [address] [id number] [address] [place] [address], [place] [address] Nov, [facility] [address] [id number] [address] [place] [address], [place] [address] Nov, [facility] [address] [id number] [address] [place] [address], [place] [address] 19 Nov, 2012 [facility] [address] [id number] [address] [place] [address], [place] [address] 18 Nov, 2012 [facility] [address] [id number] [address] [place] [address], [place] [address] 18 Nov, 2012 [facility] [address] [id number] [address] [place] [address], [place] [address] 14 Nov, 2012 [facility] [address] [id number] [address] [place] [address], [place] [address] 11 Nov, 2012 [facility] [address] [id number] [address] [place] [address], [place] [address] 11 Nov, 2012 [facility] [address] [id number] [address] [place] [address], [place] [address] 21 Oct, 2012 [facility] [address] [id number] [address] [place] [address], [place] [address] 21 Oct, 2012 [facility] [address] [id number] [address] [place] [address], [place] [address] 12 Oct, 2012 [facility] [address] [id number] [address] [place] [address], [place] [address] 08 Oct, 2012 [facility] [address] [id number] [address] [place] [address], [place] [address] 07 Oct, 2012 [facility] [address] [id number] [address] [place] [address], [place] [address] 07 Oct, 2012 [facility] [address] [id number] [address] [place] [address], [place] [address] 05 Oct, 2012 [facility] [address] [id number] [address] [place] [address], [place] [address] 04 Oct, 2012 [facility] [address] [id number] [address] [place] [address], [place] [address] 04 Oct, 2012 [facility] [address] [id number] [address] [place] [address], [place] [address] Sep, [facility] [address] [id number] [address] [place] [address], [place] [address] Sep, [facility] [address] [id number] [address] [place] [address], [place] [address] Sep, [facility] [address] [id number] [address] [place] [address], [place] [address] Sep, [facility] [address] [id number] [address] [place] [address], [place] [address] Sep, [facility] [address] [id number] [address] [place] [address], [place] [address] Sep, [facility] [address] [id number] [address] [place] [address], [place] [address] Aug, [facility] [address] [id number] [address] [place] [address], [place] [address] Aug, [facility] [address] [id number] [address] [place] [address], [place] [address] Aug, [facility] [address] [id number] [address] [place] [address], [place] [address] Aug, [facility] [address] [id number] [address] [place] [address], [place] [address] Aug, [facility] [address] [id number] [address] [place] [address], [place] [address] 18 Aug, 2012 [facility] [address] [id number] [address] [place] [address], [place] [address] 13 Aug, 2012 [facility] [address] [id number] [address] [place] [address], [place] [address] Aug, [facility] [address] [id number] [address] [place] [address], [place] [address] Aug, [facility] [address] [id number] [address] [place] [address], [place] [address] Jul, [facility] [address] [id number] [address] [place] [address] Jul, [facility] [address] [id number] [address] [place] [address] Jul, [facility] [address] [id number] [address] [place] [address] Jul, [facility] [address] [facility] [id number] [address] [place] [address] Nov, [facility] [address] [facility] [id number] [address] [place] [address] Sep, [facility] [address] [facility] [id number] [address] [place] [address] Aug, [facility] [address] [facility] [id number] [address] [place] [address] Aug, [facility] [address] [facility] [id number] [address] [place] [id number] Aug, [facility] [address] [facility] [id number] [address] [place] [address] Jul, IMMUNIZATIONS No Known Immunizations SOCIAL HISTORY [...] 05/2005 Surgical History Right Rotator Cuff Repair [facility] 06/2016 Surgical History Colonoscopy Kido (1 Polyp) repeat 5 year s 2019 2014 Surgical History right rotator cuff surgery 06/27/2016 Hospitalization History Overdosed on Clonazepam #35. Lori parvin 03/2014 Hospitalization History Overdosed on Xanax 07/2012 Hospitalization History Hypostension-medication side effect-[facility] 03/13/16
--- OUTSIDE RECORDS SUMMARY | 2019-09-11 12:29 | XMS REPORT ---
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 Active 592271877 Problem Abdominal pain R10.9 Active 29640 001 Problem Change in bowel habit R19.4 Active 42746458 Problem Coronary atherosclerosis due to lipid rich plaque I25.83 Active 27980002 Problem Type 2 diabetes 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 E11.8 Active 43056444 Problem Impotence N52.9 Active 869470236 Problem Family history of colon cancer Z80.0 Active 166727852 Problem Diabetic neuropathy, painful E11.40 A ctive 568925965 Problem Arm paresthesia, right R20.2 Active 46148359 Problem Gastroesophageal reflux disease without esophagitis K21.9 Active 628830877 Problem Drug abuse, opioid type F11.10 Active 3616658 Problem COPD exacerbation J44.1 Active 19 6591167 Problem Obstructive sleep apnea syndrome G47.33 Active 64960564 Problem Diverticulitis K57.92 Active 53318 6006 Problem Pain of right upper extremity M79.601 Active 446945351 Problem Respiratory bronchiolitis interstitial lung disease J84.115 Active 352376355 Problem Hypoxia R09.02 Active 051928016 Problem Interstitial lung disease J84.9 Acti ve [id number] ALLERGIES No Information ENCOUNTERS Encounter Location Date Diagnosis [facility] [address] [facility] [id number] [address] [place] [address] Aug, [facility] [address] [facility] [id number] [address] [place] [address] Aug, Diabetic neuropathy, painful E11.40 ; Interstitial lung disease J84.9 ; Chronic cough R05 ; Type 2 diabetes 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 E11.8 and 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 [facility] [address] [facility] [id number] [address] [place] [address] Jul, [facility] [address] [facility] [id number] [address] [place] [address] Jul, [facility] [address] [place] [id number] [place] [address] Jul, Diabetic neuropathy, painful E11.40 [place] [address] [address] Jul, Type 2 diabetes mellitus wit h complication E11.8 [facility] [place] [address] [place] [id number] [place] [address] Jun, Diabetic neuropathy, painful E11.40 [facility] [address] [address] Jun, [facility] [address] [address] Jun, Type 2 diabetes mellitus wit h complication E11.8 ; Other viral agents as the cause of diseases classified elsewhere B97.89 ; Acute upper respiratory infection, unspecified J06.9 ; Acute recurrent maxillary sinusitis J01.01 ; Sore throat J02.9 and Headache R51 [facility] [id number] [place] [address] Jun, Right lower quadrant abdomin al pain R10.31 and Type 2 diabetes 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 E11.8 [place] [address] [place] [id number] [place] [address] May, Diabetic neuropathy, painful E11.40 [facility] [address] [place] [id number] [address] [place] [address] 06 May, 2017 COPD exacerbation J44.1 and Type 2 diabetes 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 E11.8 [facility] [address] [place] [id number] [address] [place] [address] Apr, Diabetic neuropathy, painful E11.40 [place] [address] [address] Apr, Diabetic neuropathy, painful E11.40 [facility] [place] [address] [address] Mar, Bronchitis J40 [place] [address] [address] January, Type 2 diabetes mellitus wit h complication E11.8 ; Diabetic neuropathy, painful E11.40 ; Impotence N52.9 ; Coronary atherosclerosis due to lipid rich plaque I25.83 ; alf 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.4 ; Interstitial lung disease J84.9 ; Hypoxia R09.02 ; Essential hypertension I10 ; Gastroesophageal reflux disease without esophagitis K21.9 ; Left upper arm pain M79.622 and Cervical spinal stenosis M48.02 [facility] [place] [address] [address] January, Viral gastroenteritis A08.4 [place] [address] [address] Dec, Diabetic neuropathy, painful E11.40 [place] [address] [address] [place] [id number] [place] [id number] Oct, [place] [address] [address] Oct, Acute right-sided weakness M 62.89 and Slurring of speech R47.81 [place] [address] [address] Sep, Type 2 diabetes mellitus wit h complication E11.8 ; Diabetic neuropathy, painful E11.40 ; Impotence N52.9 ; Coronary atherosclerosis due to lipid rich plaque I25.83 ; alf 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.4 ; Interstitial lung disease J84.9 ; Hypoxia R09.02 ; Essential hypertension I10 and Gastroesophageal reflux disease without esophagitis K21.9 [facility] [address] [facility] [id number] [address] [place] [address] Sep, Bronchitis J40 [facility] [address] [facility] [id number] [address] [place] [address] Aug, Gastroenteritis and colitis, viral A08.4 [facility] [address] [facility] [id number] [address] [place] [address] Aug, [facility] [address] [facility] [id number] [address] [place] [address] Jun, Type 2 diabetes mellitus wit h complication E11.8 ; Diabetic neuropathy, painful E11.40 ; Impotence N52.9 ; Coronary atherosclerosis due to lipid rich plaque I25.83 ; 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 ; Interstitial lung disease J84.9 ; Hypoxia R09.02 and Essential hypertension I10 [facility] [address] [facility] [id number] [address] [place] [address] 30 May, 2016 Bronchitis J40 [facility] [address] [facility] [id number] [address] [place] [address] 29 May, 2016 [facility] [address] [facility] [id number] [address] [place] [address] May, Pain of right upper extremit y M79.601 [facility] [address] [facility] [id number] [address] [place] [address] May, [facility] [address] [facility] [id number] [address] [place] [address] 15 May, 2016 [facility] [address] [facility] [id number] [address] [place] [address] 07 May, 2016 Right hand pain M79.641 [facility] [address] [facility] [id number] [address] [place] [address] Apr, [facility] [address] [facility] [id number] [address] [place] [address] Apr, [facility] [address] [id number] [address] [place] [address] Mar, [facility] [address] [facility] [id number] [address] [place] [address] Mar, Essential hypertension I10 [facility] [address] [facility] [id number] [address] [place] [address] Feb, [facility] [address] [facility] [id number] [address] [place] [address] Feb, Interstitial lung disease J8 4.9 and Bronchitis J40 [place] [address] [facility] [id number] [address] [place] [address] Feb, [place] [address] [facility] [id number] [address] [place] [address] Feb, Type 2 diabetes mellitus wit h complication E11.8 ; Impotence N52.9 ; Coronary atherosclerosis due to lipid rich plaque I25.83 ; 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 and Diabetic neuropathy, painful E11.40 [place] [address] [facility] [id number] [address] [place] [address] January, [place] [address] [address] [facility] [id number] [address] [place] [address] January, Arm paresthesia, right R20.2 and Pain of right upper extremity M79.601 [place] [address] [address] [facility] [id number] [address] [place] [address] Dec, Lumbar strain S39.012A [place] [address] [address] [facility] [id number] [address] [place] [address] Nov, Diabetic neuropathy, painful E11.40 ; Respiratory bronchiolitis interstitial lung disease J84.115 ; Pain of right upper extremity M79.601 and Arm paresthesia, right R20.2 [place] [address] [address] [facility] [id number] [address] [place] [address] Nov, Diabetic neuropathy, painful E11.[address] [facility] [address] Sep, Type 2 diabetes mellitus wit h complication E11.8 ; Impotence N52.9 ; Coronary atherosclerosis due to lipid rich plaque I25.83 ; alf 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.4 ; Diabetic neuropathy, painful E11.40 ; Chest pain R07.9 and Restless leg G25.[address] [address] Sep, [address] [address] Jul, COPD (chronic obstructive pu lmonary disease) with acute bronchitis J44.[address] [address] Jun, Abdominal pain R10.9 ; Famil y history of colon cancer Z80.0 and Diverticulitis K57.[address] [address] Jun, Abdominal pain R10.9 and Div erticulitis K57.[address] [address] Apr, Diabetes with other specifie d manifestations, type II or unspecified type, not stated as uncontrolled 250.80 ; Coronary atherosclerosis of unspecified type of vessel, [place] or graft 414.00 ; Unspecified essential hypertension 401.9 ; Impotence of organic origin 607.84 ; Sleep apnea 780.57 and Interstitial lung disease [address] [address] Dec, [address] [address] Dec, [address] [address] Nov, [address] [address] Nov, [facility] [address] [id number] [address] [place] [address], [place] [address] Nov, [facility] [address] [id number] [address] [place] [address], [place] [address] Nov, [facility] [address] [id number] [address] [place] [address], [place] [address] Nov, [facility] [address] [id number] [address] [place] [address], [place] [address] Nov, [facility] [address] [id number] [address] [place] [address], [place] [address] Nov, [facility] [address] [id number] [address] [place] [address], [place] [address] Nov, [facility] [address] [id number] [address] [place] [address], [place] [address] Nov, [facility] [address] [id number] [address] [place] [address], [place] [address] Nov, [facility] [address] [id number] [address] [place] [address], [place] [address] Oct, [facility] [address] [id number] [address] [place] [address], [place] [address] Oct, 2014 [facility] [address] [id number] [address] [place] [address], [place] [address] Oct, 2014 [facility] [address] [id number] [address] [place] [address] Oct, 2014 [facility] [address] [id number] [address] [place] [address], [place] [address] Oct, 2014 [facility] [address] [id number] [address] [place] [address], [place] [address] Oct, 2014 [facility] [address] [id number] [address] [place] [address], [place] [address] Oct, 2014 [facility] [address] [id number] [address] [place] [address], [place] [address] 04 Oct, 2014 [facility] [address] [id number] [address] [place] [address], [place] [address] Oct, 2014 [facility] [address] [id number] [address] [place] [address], [place] [address] Oct, 2014 [facility] [address] [id number] [address] [place] [address], [place] [address] Oct, 2014 [facility] [address] [id number] [address] [place] [address], [place] [address] Jul, [facility] [address] [id number] [address] [place] [address], [place] [address] Jul, [facility] [address] [id number] [address] [place] [address], [place] [address] Jun, [facility] [address] [id number] [address] [place] [address], [place] [address] 29 Jun, 2014 [facility] [address] [id number] [address] [place] [address], [place] [address] Jun, [facility] [address] [id number] [address] [place] [address], [place] [address] 17 Jun, 2014 [facility] [address] [id number] [address] [place] [address], [place] [address] 15 Jun, 2014 [facility] [address] [id number] [address] [place] [address], [place] [address] 15 Jun, 2014 [facility] [address] [id number] [address] [place] [address], [place] [address] 14 Jun, 2014 [facility] [address] [id number] [address] [place] [address], [place] [address] 14 Jun, 2014 [facility] [address] [id number] [address] [place] [address], [place] [address] 13 Jun, 2014 [facility] [address] [id number] [address] [place] [address], [place] [address] Jun, [facility] [address] [id number] [address] [place] [address], [place] [address] 08 Jun, 2014 [facility] [address] [id number] [address] [place] [address], [place] [address] 08 Jun, 2014 [facility] [address] [id number] [address] [place] [address], [place] [address] Jun, [facility] [address] [id number] [address] [place] [address], [place] [address] Jun, [facility] [address] [id number] [address] [place] [address], [place] [address] 30 May, 2014 [facility] [address] [id number] [address] [place] [address], [place] [address] 30 May, 2014 [facility] [address] [id number] [address] [place] [address], [place] [address] May, [facility] [address] [id number] [address] [place] [address], [place] [address] May, [facility] [address] [id number] [address] [place] [address], [place] [address] 05 May, 2014 [facility] [address] [id number] [address] [place] [address], [place] [address] 05 May, 2014 [facility] [address] [id number] [address] [place] [address], [place] [address] Apr, [facility] [address] [id number] [address] [place] [address], [place] [address] Apr, [facility] [address] [id number] [address] [place] [address], [place] [address] Apr, [facility] [address] [id number] [address] [place] [address], [place] [address] Apr, [facility] [address] [id number] [address] [place] [address], [place] [address] Apr, [facility] [address] [id number] [address] [place] [address], [place] [address] Apr, [facility] [address] [id number] [facility] [place] [address] Apr, [facility] [address] [id number] [facility] [place] [address] Apr, [facility] [address] [id number] [facility] [place] [address] Apr, [facility] [address] [id number] [address] [place] [address], [place] [address] Apr, [facility] [address] [id number] [address] [place] [address], [place] [address] Apr, [facility] [address] [id number] [address] [place] [address], [place] [address] Apr, [facility] [address] [id number] [address] [place] [address], [place] [address] Mar, [facility] [address] [id number] [address] [place] [address], [place] [address] Mar, [facility] [address] [id number] [address] [place] [address], [place] [address] Mar, [facility] [address] [id number] [address] [place] [address], [place] [address] Mar, [facility] [address] [id number] [address] [place] [address], [place] [address] Mar, [facility] [address] [id number] [address] [place] [address], [place] [address] Mar, [facility] [address] [id number] [address] [place] [address], [place] [address] Mar, [facility] [address] [id number] [address] [place] [address], [place] [address] Mar, [facility] [address] [id number] [address] [place] [address], [place] [address] Mar, [facility] [address] [id number] [facility] [place] [address] Mar, [facility] [address] [id number] [facility] [place] [address] Mar, [facility] [address] [id number] [facility] [place] [address] Feb, [facility] [address] [id number] [facility] [place] [address] Feb, [facility] [address] [id number] [address] [place] [address], [place] [address] Feb, [facility] [address] [id number] [address] [place] [address], [place] [address] Feb, [facility] [address] [id number] [address] [place] [address], [place] [address] Feb, [facility] [address] [id number] [address] [place] [address], [place] [address] Feb, [facility] [address] [id number] [address] [place] [address], [place] [address] Feb, [facility] [address] [id number] [address] [place] [address], [place] [address] Feb, [facility] [address] [id number] [address] [place] [address], [place] [address] Feb, [facility] [address] [id number] [address] [place] [address], [place] [address] Feb, [facility] [address] [id number] [address] [place] [address], [place] [address] January, [facility] [address] [id number] [address] [place] [address], [place] [address] January, [facility] [address] [id number] [address] [place] [address], [place] [address] January, [facility] [address] [id number] [address] [place] [address], [place] [address] January, [facility] [address] [id number] [facility] [place] [address] January, [facility] [address] [id number] [address] [place] [address], [place] [address] January, [facility] [address] [id number] [address] [place] [address], [place] [address] January, [facility] [address] [id number] [address] [place] [address], [place] [address] January, [facility] [address] [id number] [address] [place] [address], [place] [address] January, [facility] [address] [id number] [address] [place] [address], [place] [address] January, [facility] [address] [id number] [address] [place] [address], [place] [address] January, [facility] [address] [id number] [address] [place] [address], [place] [address] January, [facility] [address] [id number] [address] [place] [address], [place] [address] January, [facility] [address] [id number] [address] [place] [address], [place] [address] January, [facility] [address] [id number] [address] [place] [address], [place] [address] January, [facility] [address] [id number] [address] [place] [address], [place] [address] January, [facility] [address] [id number] [address] [place] [address], [place] [address] Dec, [facility] [address] [id number] [address] [place] [address], [place] [address] Dec, [facility] [address] [id number] [address] [place] [address], [place] [address] Dec, [facility] [address] [id number] [address] [place] [address], [place] [id number] 17 Dec, 2013 [facility] [address] [id number] [address] [place] [address], [place] [address] Dec, [facility] [address] [id number] [address] [place] [address], [place] [id number] Dec, [facility] [address] [id number] [address] [place] [address], [place] [id number] Dec, [facility] [address] [id number] [address] [place] [address], [place] [address] Dec, [facility] [address] [id number] [address] [place] [address], [place] [id number] Dec, [facility] [address] [id number] [address] [place] [address], [place] [address] Dec, [facility] [address] [id number] [address] [place] [address], [place] [address] Nov, [facility] [address] [id number] [address] [place] [address], [place] [address] Nov, [facility] [address] [id number] [address] [place] [address], [place] [address] Oct, [facility] [address] [id number] [address] [place] [address], [place] [address] Oct, [facility] [address] [id number] [address] [place] [address], [place] [address] Oct, [facility] [address] [id number] [address] [place] [address], [place] [address] Sep, [facility] [address] [id number] [address] [place] [address], [place] [id number] Sep, [facility] [address] [id number] [address] [place] [address], [place] [address] Sep, [facility] [address] [id number] [address] [place] [address], [place] [address] Sep, [facility] [address] [id number] [address] [place] [address], [place] [address] Sep, [facility] [address] [id number] [address] [place] [address], [place] [id number] Sep, [facility] [address] [id number] [address] [place] [address], [place] [address] Sep, [facility] [address] [id number] [address] [place] [address], [place] [id number] Sep, [facility] [address] [id number] [address] [place] [address], [place] [address] Sep, [facility] [address] [id number] [address] [place] [address], [place] [address] Sep, [facility] [address] [id number] [address] [place] [address], [place] [address] Sep, [facility] [address] [id number] [address] [place] [address], [place] [address] Sep, [facility] [address] [id number] [address] [place] [address], [place] [address] Aug, [facility] [address] [id number] [address] [place] [address], [place] [address] Aug, [facility] [address] [id number] [address] [place] [address], [place] [address] Aug, [facility] [address] [id number] [address] [place] [address], [place] [address] Aug, [facility] [address] [id number] [address] [place] [address], [place] [address] Jul, [facility] [address] [id number] [address] [place] [address], [place] [address] Jul, [facility] [address] [id number] [address] [place] [address], [place] [address] Jun, [facility] [address] [id number] [address] [place] [address] [place] [address] 30 Jun, 2013 [facility] [address] [id number] [address] [place] [address], [place] [address] Jun, [facility] [address] [id number] [address] [place] [address], [place] [address] Jun, [facility] [address] [id number] [address] [place] [address], [place] [address] Jun, [facility] [address] [id number] [address] [place] [address], [place] [address] Jun, [facility] [address] [id number] [address] [place] [address], [place] [address] Jun, [facility] [address] [id number] [address] [place] [address], [place] [address] Jun, [facility] [address] [id number] [address] [place] [address], [place] [address] 24 May, 2012 [facility] [address] [id number] [address] [place] [address], [place] [address] 23 May, 2012 [facility] [address] [id number] [address] [place] [address], [place] [address] 18 May, 2012 [facility] [address] [id number] [address] [place] [address], [place] [address] 13 May, 2012 [facility] [address] [id number] [address] [place] [address], [place] [address] 11 May, 2012 [facility] [address] [id number] [address] [place] [address], [place] [address] 06 May, 2012 [facility] [address] [id number] [address] [place] [address], [place] [address] 03 May, 2012 [facility] [address] [id number] [address] [place] [address], [place] [address] 30 Apr, 2013 [facility] [address] [id number] [address] [place] [address], [place] [address] 22 Apr, 2013 [facility] [address] [id number] [address] [place] [address], [place] [address] Apr, [facility] [address] [id number] [address] [place] [address], [place] [address] Apr, [facility] [address] [id number] [address] [place] [address], [place] [address] Apr, [facility] [address] [id number] [address] [place] [address], [place] [address] Apr, [facility] [address] [id number] [address] [place] [address], [place] [address] Apr, [facility] [address] [id number] [address] [place] [address], [place] [address] Mar, [facility] [address] [id number] [address] [place] [address], [place] [address] Mar, [facility] [address] [id number] [address] [place] [address], [place] [address] Mar, [facility] [address] [id number] [address] [place] [address], [place] [address] Mar, [facility] [address] [id number] [address] [place] [address], [place] [address] Mar, [facility] [address] [id number] [address] [place] [address], [place] [address] Mar, [facility] [address] [id number] [address] [place] [address], [place] [address] Mar, [facility] [address] [id number] [address] [place] [address], [place] [address] Mar, [facility] [address] [id number] [address] [place] [address], [place] [address] Feb, [facility] [address] [id number] [address] [place] [address], [place] [address] Feb, [facility] [address] [id number] [address] [place] [address], [place] [address] Feb, [facility] [address] [id number] [address] [place] [address], [place] [address] January, [facility] [address] [id number] [address] [place] [address], [place] [address] January, [facility] [address] [id number] [address] [place] [address], [place] [address] January, [facility] [address] [id number] [address] [place] [address], [place] [address] January, [facility] [address] [id number] [address] [place] [address], [place] [address] January, [facility] [address] [id number] [address] [place] [address], [place] [address] January, [facility] [address] [id number] [address] [place] [address], [place] [address] January, [facility] [address] [id number] [address] [place] [address], [place] [address] January, [facility] [address] [id number] [address] [place] [address], [place] [address] Dec, [facility] [address] [id number] [address] [place] [address], [place] [address] Dec, [facility] [address] [id number] [address] [place] [address], [place] [address] Dec, [facility] [address] [id number] [address] [place] [address], [place] [address] Dec, [facility] [address] [id number] [address] [place] [address], [place] [address] Dec, [facility] [address] [id number] [address] [place] [address], [place] [address] Nov, [facility] [address] [id number] [address] [place] [address], [place] [address] Nov, [facility] [address] [id number] [address] [place] [address], [place] [address] 19 Nov, 2012 [facility] [address] [id number] [address] [place] [address], [place] [address] 18 Nov, 2012 [facility] [address] [id number] [address] [place] [address], [place] [address] 18 Nov, 2012 [facility] [address] [id number] [address] [place] [address], [place] [address] 14 Nov, 2012 [facility] [address] [id number] [address] [place] [address], [place] [address] 11 Nov, 2012 [facility] [address] [id number] [address] [place] [address], [place] [address] 11 Nov, 2012 [facility] [address] [id number] [address] [place] [address], [place] [address] 21 Oct, 2012 [facility] [address] [id number] [address] [place] [address], [place] [address] 21 Oct, 2012 [facility] [address] [id number] [address] [place] [address], [place] [address] 12 Oct, 2012 [facility] [address] [id number] [address] [place] [address], [place] [address] 08 Oct, 2012 [facility] [address] [id number] [address] [place] [address], [place] [address] 07 Oct, 2012 [facility] [address] [id number] [address] [place] [address], [place] [address] 07 Oct, 2012 [facility] [address] [id number] [address] [place] [address], [place] [address] 05 Oct, 2012 [facility] [address] [id number] [address] [place] [address], [place] [address] 04 Oct, 2012 [facility] [address] [id number] [address] [place] [address], [place] [address] 04 Oct, 2012 [facility] [address] [id number] [address] [place] [address], [place] [address] Sep, [facility] [address] [id number] [address] [place] [address], [place] [address] Sep, [facility] [address] [id number] [address] [place] [address], [place] [address] Sep, [facility] [address] [id number] [address] [place] [address], [place] [address] Sep, [facility] [address] [id number] [address] [place] [address], [place] [address] Sep, [facility] [address] [id number] [address] [place] [address], [place] [address] Sep, [facility] [address] [id number] [address] [place] [address], [place] [address] Aug, [facility] [address] [id number] [address] [place] [address], [place] [address] Aug, [facility] [address] [id number] [address] [place] [address], [place] [address] Aug, [facility] [address] [id number] [address] [place] [address], [place] [address] Aug, [facility] [address] [id number] [address] [place] [address], [place] [address] Aug, [facility] [address] [id number] [address] [place] [address], [place] [address] 18 Aug, 2012 [facility] [address] [id number] [address] [place] [address], [place] [address] 13 Aug, 2012 [facility] [address] [id number] [address] [place] [address], [place] [address] Aug, [facility] [address] [id number] [address] [place] [address], [place] [address] Aug, [facility] [address] [id number] [address] [place] [address], [place] [address] Jul, [facility] [address] [id number] [address] [place] [address] Jul, [facility] [place] [address] [id number] [address] [place] [id number] Jul, [facility] [place] [address] [id number] [address] [place] [address] Jul, [facility] [place] [address] [facility] [id number] [address] [place] [id number] Nov, [facility] [place] [address] [id number] [address] [place] [id number] Sep, [facility] [place] [address] [facility] [id number] [address] [place] [id number] Aug, [facility] [place] [address] [facility] [id number] [address] [place] [id number] Aug, [facility] [place] [address] [facility] [id number] [address] [place] [id number] Aug, [facility] [place] [address] [facility] [id number] [address] [place] [id number] Jul, IMMUNIZATIONS Vaccine Route Administration Date Status FLU Vaccine (History) Unknown Jul 14, 2014 Administer ed SOCIAL HISTORY Never Assessed REASON FOR VISIT PLAN OF CARE VITAL SIGNS Height 74 in 2014-07-14 Weight 245 lbs 2014-07-14 Temperature 97.2 degrees Fahrenheit 2014-07-14 Heart Rate 80 bpm 2014-07-14 Respiratory Rate 18 2014-07-14 Blood pressure systolic 150 mmHg 2014-07-14 Blood pressure diastolic 90 mmHg 2014-07-14 MEDICATIONS Unknown Medications RESULTS No Results PROCEDURES [...] 05/2005 Surgical History Right Rotator Cuff Repair [facility] 06/2016 Surgical History Colonoscopy Elijah (1 Polyp) repeat 5 year s 2019 2014 Surgical History right rotator cuff surgery 06/27/2016 Hospitalization History Overdosed on Clonazepam #35. Lori melendrez 03/2014 Hospitalization History Overdosed on Xanax 07/2012 Hospitalization History Hypostension-medication side effect-[facility] 03/13/16
--- OUTSIDE RECORDS SUMMARY | 2019-09-11 12:29 | XMS REPORT ---
Author Author Miguel CHAPPELL Organization 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 Active 266366922 Problem Abdominal pain R10.9 Active 07957 001 Problem Change in bowel habit R19.4 Active 18941022 Problem Coronary atherosclerosis due to lipid rich plaque I25.83 Active 17912046 Problem Type 2 diabetes 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 E11.8 Active 55995211 Problem Impotence N52.9 Active 817594554 Problem Family history of colon cancer Z80.0 Active 985560900 Problem Diabetic neuropathy, painful E11.40 A ctive 675697294 Problem Arm paresthesia, right R20.2 Active 56628249 Problem Gastroesophageal reflux disease without esophagitis K21.9 Active 782597440 Problem Drug abuse, opioid type F11.10 Active 6605563 Problem COPD exacerbation J44.1 Active 19 1847880 Problem Obstructive sleep apnea syndrome G47.33 Active 54777093 Problem Diverticulitis K57.92 Active 36691 6006 Problem Pain of right upper extremity M79.601 Active 655560351 Problem Respiratory bronchiolitis interstitial lung disease J84.115 Active 831973416 Problem Hypoxia R09.02 Active 502843702 Problem Interstitial lung disease J84.9 Acti ve [id number] ALLERGIES No Information ENCOUNTERS Encounter Location Date Diagnosis [facility] [address] [facility] [id number] [address] [place] [address] Aug, [facility] [address] 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 [address] [facility] [id number] [address] [place] [address] Jul, [facility] [address] [facility] [id number] [address] [place] [address] Jul, [facility] [address] [place] [id number] [place] [address] Jul, Diabetic neuropathy, painful E11.40 [place] [address] [address] Jul, Type 2 diabetes mellitus wit h complication E11.8 [facility] [address] [place] [id number] [place] [address] Jun, Diabetic neuropathy, painful E11.40 [facility] [address] [address] Jun, [facility] [address] [address] Jun, Type 2 diabetes mellitus wit h complication E11.8 ; Other viral agents as the cause of diseases classified elsewhere B97.89 ; Acute upper respiratory infection, unspecified J06.9 ; Acute recurrent maxillary sinusitis J01.01 ; Sore throat J02.[address] [facility] [id number] [place] [address] Jun, Right lower quadrant abdomin al pain R10.31 and Type 2 diabetes 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 E11.8 [place] [address] [place] [id number] [place] [address] May, Diabetic neuropathy, painful E11.40 [facility] [address] [place] [id number] [place] [address] 06 May, 2017 COPD exacerbation J44.1 and Type 2 diabetes 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 E11.8 [facility] [address] [place] [id number] [place] [address] Apr, Diabetic neuropathy, painful E11.40 [place] [address] [address] Apr, Diabetic neuropathy, painful E11.40 [facility] [place] [address] [address] Mar, Bronchitis J40 [place] [address] [address] January, Type 2 diabetes mellitus wit h complication E11.8 ; Diabetic neuropathy, painful E11.40 ; Impotence N52.9 ; Coronary atherosclerosis due to lipid rich plaque I25.83 ; retirement 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.4 ; Interstitial lung disease J84.9 ; Hypoxia R09.02 ; Essential hypertension I10 ; Gastroesophageal reflux disease without esophagitis K21.9 ; Left upper arm pain M79.622 and Cervical spinal stenosis M48.02 [facility] [place] [address] [address] January, Viral gastroenteritis A08.4 [place] [address] [address] Dec, Diabetic neuropathy, painful E11.40 [place] [address] [address] [place] [id number] [place] [id number] Oct, [place] [address] [address] Oct, Acute right-sided weakness M 62.89 and Slurring of speech R47.81 [place] [address] [address] Sep, Type 2 diabetes mellitus wit h complication E11.8 ; Diabetic neuropathy, painful E11.40 ; Impotence N52.9 ; Coronary atherosclerosis due to lipid rich plaque I25.83 ; retirement 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.4 ; Interstitial lung disease J84.9 ; Hypoxia R09.02 ; Essential hypertension I10 and Gastroesophageal reflux disease without esophagitis K21.9 [facility] [address] [facility] [id number] [address] [place] [address] Sep, Bronchitis J40 [facility] [address] [facility] [id number] [address] [place] [address] Aug, Gastroenteritis and colitis, viral A08.4 [facility] [address] [facility] [id number] [address] [place] [address] Aug, [facility] [address] 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 [address] [facility] [id number] [address] [place] [address] 30 May, [address] [facility] [address] [facility] [id number] [address] [place] [address] 29 [address], [address] [facility] [address] [facility] [id number] [address] [place] [address] May, Pain of right upper extremit y M79.601 [facility] [address] [facility] [id number] [address] [place] [address] May, [facility] [address] [facility] [id number] [address] [place] [address] 15 May, 2016 [facility] [address] [facility] [id number] [address] [place] [address] 07 May, 2016 Right hand pain M79.641 [facility] [address] [facility] [id number] [address] [place] [address] Apr, [facility] [address] [facility] [id number] [address] [place] [address] Apr, [facility] [address] [id number] [address] [place] [address] Mar, [facility] [address] [facility] [id number] [address] [place] [address] Mar, Essential hypertension I10 [facility] [address] [facility] [id number] [address] [place] [address] Feb, [facility] [address] [facility] [id number] [address] [place] [address] Feb, Interstitial lung disease J8 4.9 and Bronchitis J40 [place] [address] [facility] [id number] [address] [place] [address] Feb, [place] [address] 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 [id number] [address] [place] [address] January, [place] [address] [facility] [id number] [address] [place] [address] January, Arm paresthesia, right R20.2 and Pain of right upper extremity M79.601 [place] [address] [facility] [id number] [address] [place] [address] Dec, Lumbar strain S39.012A [place] [address] [facility] [id number] [address] [place] [address] Nov, Diabetic neuropathy, painful E11.40 ; Respiratory bronchiolitis interstitial lung disease J84.115 ; Pain of right upper extremity M79.601 and Arm paresthesia, right R20.2 [place] [address] [facility] [id number] [address] [place] [address] Nov, Diabetic neuropathy, painful E11.40 [facility] [address] [address] Sep, Type 2 diabetes mellitus wit h complication E11.8 ; Impotence N52.9 ; Coronary atherosclerosis due to lipid rich plaque I25.83 ; retirement 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.4 ; Diabetic neuropathy, painful E11.40 ; Chest pain R07.9 and Restless leg G25.[address] [address] Sep, [address] [address] Jul, COPD (chronic obstructive pu lmonary disease) with acute bronchitis J44.[address] [address] Jun, Abdominal pain R10.9 ; Famil y history of colon cancer Z80.0 and Diverticulitis K57.[address] [address] Jun, Abdominal pain R10.9 and Div erticulitis K57.[address] [address] Apr, Diabetes with other specifie d manifestations, type II or unspecified type, not stated as uncontrolled 250.80 ; Coronary atherosclerosis of unspecified type of vessel, buckland or graft 414.00 ; Unspecified essential hypertension 401.9 ; Impotence of organic origin 607.84 ; Sleep apnea 780.57 and Interstitial lung disease [address] [address] Dec, [address] [address] Dec, [address] [address] Nov, [address] [address] Nov, [facility] [address] [id number] [address] [place] [address], [place] [address] Nov, [facility] [address] [id number] [address] [place] [address], [place] [address] Nov, [facility] [address] [id number] [address] [place] [address], [place] [address] Nov, [facility] [address] [id number] [address] [place] [address], [place] [address] Nov, [facility] [address] [id number] [address] [place] [address], [place] [address] Nov, [facility] [address] [id number] [address] [place] [address], [place] [address] Nov, [facility] [address] [id number] [address] [place] [address], [place] [address] Nov, [facility] [address] [id number] [address] [place] [address], [place] [address] Nov, [facility] [address] [id number] [address] [place] [address], [place] [address] Oct, [facility] [address] [id number] [address] [place] [address], [place] [address] Oct, 2014 [facility] [address] [id number] [address] [place] [address], [place] [address] Oct, 2014 [facility] [address] [id number] [address] [place] [phone] Oct, 2014 [facility] [address] [id number] [address] [place] [address], [place] [address] Oct, 2014 [facility] [address] [id number] [address] [place] [address], [place] [address] Oct, 2014 [facility] [address] [id number] [address] [place] [address], [place] [address] Oct, 2014 [facility] [address] [id number] [address] [place] [address], [place] [address] 04 Oct, 2014 [facility] [address] [id number] [address] [place] [address], [place] [address] Oct, 2014 [facility] [address] [id number] [address] [place] [address], [place] [address] Oct, 2014 [facility] [address] [id number] [address] [place] [address], [place] [address] Oct, 2014 [facility] [address] [id number] [address] [place] [address], [place] [address] Jul, [facility] [address] [id number] [address] [place] [address], [place] [address] Jul, [facility] [address] [id number] [address] [place] [address], [place] [address] Jun, [facility] [address] [id number] [address] [place] [address], [place] [address] 29 Jun, 2014 [facility] [address] [id number] [address] [place] [address], [place] [address] Jun, [facility] [address] [id number] [address] [place] [address], [place] [address] 17 Jun, 2014 [facility] [address] [id number] [address] [place] [address], [place] [address] 15 Jun, 2014 [facility] [address] [id number] [address] [place] [address], [place] [address] 15 Jun, 2014 [facility] [address] [id number] [address] [place] [address], [place] [address] 14 Jun, 2014 [facility] [address] [id number] [address] [place] [address], [place] [address] 14 Jun, 2014 [facility] [address] [id number] [address] [place] [address], [place] [address] 13 Jun, 2014 [facility] [address] [id number] [address] [place] [address], [place] [address] Jun, [facility] [address] [id number] [address] [place] [address], [place] [address] 08 Jun, 2014 [facility] [address] [id number] [address] [place] [address], [place] [address] 08 Jun, 2014 [facility] [address] [id number] [address] [place] [address], [place] [address] Jun, [facility] [address] [id number] [address] [place] [address], [place] [address] Jun, [facility] [address] [id number] [address] [place] [address], [place] [address] 30 May, 2014 [facility] [address] [id number] [address] [place] [address], [place] [address] 30 May, 2014 [facility] [address] [id number] [address] [place] [address], [place] [address] May, [facility] [address] [id number] [address] [place] [address], [place] [address] May, [facility] [address] [id number] [address] [place] [address], [place] [address] 05 May, 2014 [facility] [address] [id number] [address] [place] [address], [place] [address] 05 May, 2014 [facility] [address] [id number] [address] [place] [address], [place] [address] Apr, [facility] [address] [id number] [address] [place] [address], [place] [address] Apr, [facility] [address] [id number] [address] [place] [address], [place] [address] Apr, [facility] [address] [id number] [address] [place] [address], [place] [address] Apr, [facility] [address] [id number] [address] [place] [address], [place] [address] Apr, [facility] [address] [id number] [address] [place] [address], [place] [address] Apr, [facility] [address] [id number] [facility] [place] [address] Apr, [facility] [address] [id number] [facility] [place] [address] Apr, [facility] [address] [id number] [facility] [place] [address] Apr, [facility] [address] [id number] [address] [place] [address], [place] [address] Apr, [facility] [address] [id number] [address] [place] [address], [place] [address] Apr, [facility] [address] [id number] [address] [place] [address], [place] [address] Apr, [facility] [address] [id number] [address] [place] [address], [place] [address] Mar, [facility] [address] [id number] [address] [place] [address], [place] [address] Mar, [facility] [address] [id number] [address] [place] [address], [place] [address] Mar, [facility] [address] [id number] [address] [place] [address], [place] [address] Mar, [facility] [address] [id number] [address] [place] [address], [place] [address] Mar, [facility] [address] [id number] [address] [place] [address], [place] [address] Mar, [facility] [address] [id number] [address] [place] [address], [place] [address] Mar, [facility] [address] [id number] [address] [place] [address], [place] [address] Mar, [facility] [address] [id number] [address] [place] [address], [place] [address] Mar, [facility] [address] [id number] [facility] [place] [address] Mar, [facility] [address] [id number] [facility] [place] [address] Mar, [facility] [address] [id number] [facility] [place] [address] Feb, [facility] [address] [id number] [facility] [place] [address] Feb, [facility] [address] [id number] [address] [place] [address], [place] [address] Feb, [facility] [address] [id number] [address] [place] [address], [place] [address] Feb, [facility] [address] [id number] [address] [place] [address], [place] [address] Feb, [facility] [address] [id number] [address] [place] [address], [place] [address] Feb, [facility] [address] [id number] [address] [place] [address], [place] [address] Feb, [facility] [address] [id number] [address] [place] [address], [place] [address] Feb, [facility] [address] [id number] [address] [place] [address], [place] [address] Feb, [facility] [address] [id number] [address] [place] [address], [place] [address] Feb, [facility] [address] [id number] [address] [place] [address], [place] [address] January, [facility] [address] [id number] [address] [place] [address], [place] [address] January, [facility] [address] [id number] [address] [place] [address], [place] [address] January, [facility] [address] [id number] [address] [place] [address], [place] [address] January, [facility] [address] [id number] [facility] [place] [address] January, [facility] [address] [id number] [address] [place] [address], [place] [address] January, [facility] [address] [id number] [address] [place] [address], [place] [address] January, [facility] [address] [id number] [address] [place] [address], [place] [address] January, [facility] [address] [id number] [address] [place] [address], [place] [address] January, [facility] [address] [id number] [address] [place] [address], [place] [address] January, [facility] [address] [id number] [address] [place] [address], [place] [address] January, [facility] [address] [id number] [address] [place] [address], [place] [address] January, [facility] [address] [id number] [address] [place] [address], [place] [address] January, [facility] [address] [id number] [address] [place] [address], [place] [address] January, [facility] [address] [id number] [address] [place] [address], [place] [address] January, [facility] [address] [id number] [address] [place] [address], [place] [address] January, [facility] [address] [id number] [address] [place] [address], [place] [address] Dec, [facility] [address] [id number] [address] [place] [address], [place] [address] Dec, [facility] [address] [id number] [address] [place] [address], [place] [address] Dec, [facility] [address] [id number] [address] [place] [address], [place] [address] 17 Dec, 2013 [facility] [address] [id number] [address] [place] [address], [place] [address] Dec, [facility] [address] [id number] [address] [place] [address], [place] [address] Dec, [facility] [address] [id number] [address] [place] [address], [place] [address] Dec, [facility] [address] [id number] [address] [place] [address], [place] [address] Dec, [facility] [address] [id number] [address] [place] [address], [place] [address] Dec, [facility] [address] [id number] [address] [place] [address], [place] [address] Dec, [facility] [address] [id number] [address] [place] [address], [place] [address] Nov, [facility] [address] [id number] [address] [place] [address], [place] [address] Nov, [facility] [address] [id number] [address] [place] [address], [place] [address] Oct, [facility] [address] [id number] [address] [place] [address], [place] [address] Oct, [facility] [address] [id number] [address] [place] [address], [place] [address] Oct, [facility] [address] [id number] [address] [place] [address], [place] [address] Sep, [facility] [address] [id number] [address] [place] [address], [place] [address] Sep, [facility] [address] [id number] [address] [place] [address], [place] [address] Sep, [facility] [address] [id number] [address] [place] [address], [place] [address] Sep, [facility] [address] [id number] [address] [place] [address], [place] [address] Sep, [facility] [address] [id number] [address] [place] [address], [place] [address] Sep, [facility] [address] [id number] [address] [place] [address], [place] [address] Sep, [facility] [address] [id number] [address] [place] [address], [place] [address] Sep, [facility] [address] [id number] [address] [place] [address], [place] [address] Sep, [facility] [address] [id number] [address] [place] [address], [place] [address] Sep, [facility] [address] [id number] [address] [place] [address], [place] [address] Sep, [facility] [address] [id number] [address] [place] [address], [place] [address] Sep, [facility] [address] [id number] [address] [place] [address], [place] [address] Aug, [facility] [address] [id number] [address] [place] [address], [place] [address] Aug, [facility] [address] [id number] [address] [place] [address], [place] [address] Aug, [facility] [address] [id number] [address] [place] [address], [place] [address] Aug, [facility] [address] [id number] [address] [place] [address], [place] [address] Jul, [facility] [address] [id number] [address] [place] [address], [place] [address] Jul, [facility] [address] [id number] [address] [place] [address], [place] [address] Jun, [facility] [address] [id number] [address] [place] [address] [place] [address] 30 Jun, 2013 [facility] [address] [id number] [address] [place] [address], [place] [address] Jun, [facility] [address] [id number] [address] [place] [address], [place] [address] Jun, [facility] [address] [id number] [address] [place] [address], [place] [address] Jun, [facility] [address] [id number] [address] [place] [address], [place] [address] Jun, [facility] [address] [id number] [address] [place] [address], [place] [address] Jun, [facility] [address] [id number] [address] [place] [address], [place] [address] Jun, [facility] [address] [id number] [address] [place] [address], [place] [address] 24 May, 2012 [facility] [address] [id number] [address] [place] [address], [place] [address] 23 May, 2012 [facility] [address] [id number] [address] [place] [address], [place] [address] 18 May, 2012 [facility] [address] [id number] [address] [place] [address], [place] [address] 13 May, 2012 [facility] [address] [id number] [address] [place] [address], [place] [address] 11 May, 2012 [facility] [address] [id number] [address] [place] [address], [place] [address] 06 May, 2012 [facility] [address] [id number] [address] [place] [address], [place] [address] 03 May, 2012 [facility] [address] [id number] [address] [place] [address], [place] [address] 30 Apr, 2013 [facility] [address] [id number] [address] [place] [address], [place] [address] 22 Apr, 2013 [facility] [address] [id number] [address] [place] [address], [place] [address] Apr, [facility] [address] [id number] [address] [place] [address], [place] [address] Apr, [facility] [address] [id number] [address] [place] [address], [place] [address] Apr, [facility] [address] [id number] [address] [place] [address], [place] [address] Apr, [facility] [address] [id number] [address] [place] [address], [place] [address] Apr, [facility] [address] [id number] [address] [place] [address], [place] [address] Mar, [facility] [address] [id number] [address] [place] [address], [place] [address] Mar, [facility] [address] [id number] [address] [place] [address], [place] [address] Mar, [facility] [address] [id number] [address] [place] [address], [place] [address] Mar, [facility] [address] [id number] [address] [place] [address], [place] [address] Mar, [facility] [address] [id number] [address] [place] [address], [place] [address] Mar, [facility] [address] [id number] [address] [place] [address], [place] [address] Mar, [facility] [address] [id number] [address] [place] [address], [place] [address] Mar, [facility] [address] [id number] [address] [place] [address], [place] [address] Feb, [facility] [address] [id number] [address] [place] [address], [place] [address] Feb, [facility] [address] [id number] [address] [place] [address], [place] [address] Feb, [facility] [address] [id number] [address] [place] [address], [place] [address] January, [facility] [address] [id number] [address] [place] [address], [place] [address] January, [facility] [address] [id number] [address] [place] [address], [place] [address] January, [facility] [address] [id number] [address] [place] [address], [place] [address] January, [facility] [address] [id number] [address] [place] [address], [place] [address] January, [facility] [address] [id number] [address] [place] [address], [place] [address] January, [facility] [address] [id number] [address] [place] [address], [place] [address] January, [facility] [address] [id number] [address] [place] [address], [place] [address] January, [facility] [address] [id number] [address] [place] [address], [place] [address] Dec, [facility] [address] [id number] [address] [place] [address], [place] [address] Dec, [facility] [address] [id number] [address] [place] [address], [place] [address] Dec, [facility] [address] [id number] [address] [place] [address], [place] [address] Dec, [facility] [address] [id number] [address] [place] [address], [place] [address] Dec, [facility] [address] [id number] [address] [place] [address], [place] [address] Nov, [facility] [address] [id number] [address] [place] [address], [place] [address] Nov, [facility] [address] [id number] [address] [place] [address], [place] [address] 19 Nov, 2012 [facility] [address] [id number] [address] [place] [address], [place] [address] 18 Nov, 2012 [facility] [address] [id number] [address] [place] [address], [place] [address] 18 Nov, 2012 [facility] [address] [id number] [address] [place] [address], [place] [address] 14 Nov, 2012 [facility] [address] [id number] [address] [place] [address], [place] [address] 11 Nov, 2012 [facility] [address] [id number] [address] [place] [address], [place] [address] 11 Nov, 2012 [facility] [address] [id number] [address] [place] [address], [place] [address] 21 Oct, 2012 [facility] [address] [id number] [address] [place] [address], [place] [address] 21 Oct, 2012 [facility] [address] [id number] [address] [place] [address], [place] [address] 12 Oct, 2012 [facility] [address] [id number] [address] [place] [address], [place] [address] 08 Oct, 2012 [facility] [address] [id number] [address] [place] [address], [place] [address] 07 Oct, 2012 [facility] [address] [id number] [address] [place] [address], [place] [address] 07 Oct, 2012 [facility] [address] [id number] [address] [place] [address], [place] [address] 05 Oct, 2012 [facility] [address] [id number] [address] [place] [address], [place] [address] 04 Oct, 2012 [facility] [address] [id number] [address] [place] [address], [place] [address] 04 Oct, 2012 [facility] [address] [id number] [address] [place] [address], [place] [address] Sep, [facility] [address] [id number] [address] [place] [address], [place] [address] Sep, [facility] [address] [id number] [address] [place] [address], [place] [address] Sep, [facility] [address] [id number] [address] [place] [address], [place] [address] Sep, [facility] [address] [id number] [address] [place] [address], [place] [address] Sep, [facility] [address] [id number] [address] [place] [address], [place] [address] Sep, [facility] [address] [id number] [address] [place] [address], [place] [address] Aug, [facility] [address] [id number] [address] [place] [address], [place] [address] Aug, [facility] [address] [id number] [address] [place] [address], [place] [address] Aug, [facility] [address] [id number] [address] [place] [address], [place] [address] Aug, [facility] [address] [id number] [address] [place] [address], [place] [address] Aug, [facility] [address] [id number] [address] [place] [address], [place] [address] 18 Aug, 2012 [facility] [address] [id number] [address] [place] [address], [place] [address] 13 Aug, 2012 [facility] [address] [id number] [address] [place] [address], [place] [address] Aug, [facility] [address] [id number] [address] [place] [address], [place] [address] Aug, [facility] [address] [id number] [address] [place] [address], [place] [address] Jul, [facility] [address] [id number] [address] [place] [address] Jul, [facility] [address] [id number] [address] [place] [address] Jul, [facility] [address] [id number] [address] [place] [address] Jul, [facility] [address] [facility] [id number] [address] [place] [address] Nov, [facility] [address] [id number] [address] [place] [address] Sep, [facility] [address] [facility] [id number] [address] [place] [address] Aug, [facility] [address] [facility] [id number] [address] [place] [address] Aug, [facility] [address] [facility] [id number] [address] [place] [address] Aug, [facility] [address] [facility] [id number] [address] [place] [address] Jul, IMMUNIZATIONS No Known Immunizations SOCIAL HISTORY Never Assessed REASON FOR VISIT PLAN OF CARE VITAL SIGNS Height 74 in 2014-06-29 Weight 248.4 lbs 2014-06-29 Temperature 97.6 degrees Fahrenheit 2014-06-29 Heart Rate 84 bpm 2014-06-29 Respiratory Rate 20 2014-06-29 Blood pressure systolic 140 mmHg 2014-06-29 Blood pressure diastolic 84 mmHg 2014-06-29 MEDICATIONS Unknown Medications RESULTS No Results PROCEDURES [...] 05/2005 [facility] Colonoscopy Elijah (1 Polyp) repeat 5 year s 2019 2014 Surgical History right rotator cuff surgery 06/27/2016 Hospitalization History Overdosed on Clonazepam #35. Lori mcduffiee 03/2014 Hospitalization History Overdosed on Xanax 07/2012 Hospitalization History Hypostension-medication side effect-[facility]ia [facility] 03/13/16
--- OUTSIDE RECORDS SUMMARY | 2019-09-11 12:29 | XMS REPORT ---
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 Active 529900005 Problem Abdominal pain R10.9 Active 80758 001 Problem Change in bowel habit R19.4 Active 84726541 Problem Coronary atherosclerosis due to lipid rich plaque I25.83 Active 08905985 Problem Type 2 diabetes 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 E11.8 Active 53340803 Problem Impotence N52.9 Active 392327583 Problem Family history of colon cancer Z80.0 Active 936292016 Problem Diabetic neuropathy, painful E11.40 A ctive 782097326 Problem Arm paresthesia, right R20.2 Active 02540633 Problem Gastroesophageal reflux disease without esophagitis K21.9 Active 069101608 Problem Drug abuse, opioid type F11.10 Active 2884626 Problem COPD exacerbation J44.1 Active 19 8147579 Problem Obstructive sleep apnea syndrome G47.33 Active 15815969 Problem Diverticulitis K57.92 Active 34595 6006 Problem Pain of right upper extremity M79.601 Active 374584996 Problem Respiratory bronchiolitis interstitial lung disease J84.115 Active 080221786 Problem Hypoxia R09.02 Active 706109645 Problem Interstitial lung disease J84.9 Acti ve [id number] ALLERGIES No Information ENCOUNTERS Encounter Location Date Diagnosis [facility] [address] [facility] [id number] [address] [place] [address] Aug, [facility] [address] [facility] [id number] [address] [place] [address] Aug, Diabetic neuropathy, painful E11.40 ; Interstitial lung disease J84.9 ; Chronic cough R05 ; Type 2 diabetes 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 E11.8 and 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 [facility] [address] [facility] [id number] [address] [place] [address] Jul, [facility] [address] [facility] [id number] [address] [place] [address] Jul, [facility] [address] [place] [id number] [place] [address] Jul, Diabetic neuropathy, painful E11.40 [place] [address] [address] Jul, Type 2 diabetes mellitus wit h complication E11.8 [facility] [address] [place] [id number] [place] [address] Jun, Diabetic neuropathy, painful E11.40 [facility] [address] [address] Jun, [facility] [address] [address] Jun, Type 2 diabetes mellitus wit h complication E11.8 ; Other viral agents as the cause of diseases classified elsewhere B97.89 ; Acute upper respiratory infection, unspecified J06.9 ; Acute recurrent maxillary sinusitis J01.01 ; Sore throat J02.9 and Headache R51 [facility] [id number] [place] [address] Jun, Right lower quadrant abdomin al pain R10.31 and Type 2 diabetes 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 E11.8 [place] [address] [place] [id number] [place] [address] May, Diabetic neuropathy, painful E11.40 [facility] [address] [place] [id number] [address] [place] [address] 06 May, 2017 COPD exacerbation J44.1 and Type 2 diabetes 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 E11.8 [facility] [address] [place] [id number] [place] [address] Apr, Diabetic neuropathy, painful E11.40 [place] [address] [address] Apr, Diabetic neuropathy, painful E11.40 [facility] [place] [address] [address] Mar, Bronchitis J40 [place] [address] [address] January, Type 2 diabetes mellitus wit h [...] M79.622 and Cervical spinal stenosis M48.02 [facility] [place] [address] [address] January, Viral gastroenteritis A08.4 [place] [address] [address] Dec, Diabetic neuropathy, painful E11.40 [place] [address] [place] [id number] [place] [id number] Oct, [place] [address] [address] Oct, Acute right-sided weakness M 62.89 and Slurring of speech R47.81 [place] [address] [address] Sep, Type 2 diabetes mellitus wit h complication E11.8 ; Diabetic neuropathy, painful E11.40 ; Impotence N52.9 ; Coronary atherosclerosis due to lipid rich plaque I25.83 ; residential 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.4 ; Interstitial lung disease J84.9 ; Hypoxia R09.02 ; Essential hypertension I10 and Gastroesophageal reflux disease without esophagitis K21.9 [facility] [address] [facility] [id number] [address] [place] [address] Sep, Bronchitis J40 [facility] [address] [facility] [id number] [address] [place] [address] Aug, Gastroenteritis and colitis, viral A08.4 [facility] [address] [facility] [id number] [address] [place] [address] Aug, [facility] [address] [facility] [id number] [address] [place] [address] Jun, Type 2 diabetes mellitus wit h complication E11.8 ; Diabetic neuropathy, painful E11.40 ; Impotence N52.9 ; Coronary atherosclerosis due to lipid rich plaque I25.83 ; 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 ; Interstitial lung disease J84.9 ; Hypoxia R09.02 and Essential hypertension I10 [facility] [address] [facility] [id number] [address] [place] [address] 30 May, 2016 Bronchitis J40 [facility] [address] [facility] [id number] [address] [place] [address] 29 May, 2016 [facility] [address] [facility] [id number] [address] [place] [address] May, Pain of right upper extremit y M79.601 [facility] [address] [facility] [id number] [address] [place] [address] May, [facility] [address] [facility] [id number] [address] [place] [address] 15 May, 2016 [facility] [address] [facility] [id number] [address] [place] [address] 07 May, 2016 Right hand pain M79.641 [facility] [address] [facility] [id number] [address] [place] [address] Apr, [facility] [address] [facility] [id number] [address] [place] [address] Apr, [facility] [address] [id number] [address] [place] [address] Mar, [facility] [address] [facility] [id number] [address] [place] [address] Mar, Essential hypertension I10 [facility] [address] [facility] [id number] [address] [place] [address] Feb, [facility] [address] [facility] [id number] [address] [place] [address] Feb, Interstitial lung disease J8 4.9 and Bronchitis J40 [place] [address] [facility] [id number] [address] [place] [address] Feb, [place] [address] [facility] [id number] [address] [place] [address] Feb, Type 2 diabetes mellitus wit h complication E11.8 ; Impotence N52.9 ; Coronary atherosclerosis due to lipid rich plaque I25.83 ; 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 and Diabetic neuropathy, painful E11.40 [place] [address] [address] [facility] [id number] [address] [place] [address] January, [place] [address] [facility] [id number] [address] [place] [address] January, Arm paresthesia, right R20.2 and Pain of right upper extremity M79.601 [place] [address] [facility] [id number] [address] [place] [address] Dec, Lumbar strain S39.012A [place] [address] [facility] [id number] [address] [place] [address] Nov, Diabetic neuropathy, painful E11.40 ; Respiratory bronchiolitis interstitial lung disease J84.115 ; Pain of right upper extremity M79.601 and Arm paresthesia, right R20.2 [place] [address] [facility] [id number] [address] [place] [address] Nov, Diabetic neuropathy, painful E11.[address] [facility] [address] [address] Sep, Type 2 diabetes mellitus wit h complication E11.8 ; Impotence N52.9 ; Coronary atherosclerosis due to lipid rich plaque I25.83 ; residential 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.4 ; Diabetic neuropathy, painful E11.40 ; Chest pain R07.9 and Restless leg G25.[address] [address] Sep, [address] [address] Jul, COPD (chronic obstructive pu lmonary disease) with acute bronchitis J44.[address] [address] Jun, Abdominal pain R10.9 ; Famil y history of colon cancer Z80.0 and Diverticulitis K57.[address] [address] Jun, Abdominal pain R10.9 and Div erticulitis K57.[address] [address] Apr, Diabetes with other specifie d manifestations, type II or unspecified type, not stated as uncontrolled 250.80 ; Coronary atherosclerosis of unspecified type of vessel, [place] or graft 414.00 ; Unspecified essential hypertension 401.9 ; Impotence of organic origin 607.84 ; Sleep apnea 780.57 and Interstitial lung disease [address] [address] Dec, [address] [address] Dec, [address] [address] Nov, [address] [address] Nov, [facility] [address] [id number] [address] [place] [address], [place] [address] Nov, [facility] [address] [id number] [address] [place] [address], [place] [address] Nov, [facility] [address] [id number] [address] [place] [address], [place] [address] Nov, [facility] [address] [id number] [address] [place] [address], [place] [address] Nov, [facility] [address] [id number] [address] [place] [address], [place] [address] Nov, [facility] [address] [id number] [address] [place] [address], [place] [address] Nov, [facility] [address] [id number] [address] [place] [address], [place] [address] Nov, [facility] [address] [id number] [address] [place] [address], [place] [address] Nov, [facility] [address] [id number] [address] [place] [address], [place] [address] Oct, [facility] [address] [id number] [address] [place] [address], [place] [address] Oct, 2014 [facility] [address] [id number] [address] [place] [address], [place] [address] Oct, 2014 [facility] [address] [id number] [address] [place] [address] Oct, 2014 [facility] [address] [id number] [address] [place] [address], [place] [address] Oct, 2014 [facility] [address] [id number] [address] [place] [address], [place] [address] Oct, 2014 [facility] [address] [id number] [address] [place] [address], [place] [address] Oct, 2014 [facility] [address] [id number] [address] [place] [address], [place] [address] 04 Oct, 2014 [facility] [address] [id number] [address] [place] [address], [place] [address] Oct, 2014 [facility] [address] [id number] [address] [place] [address], [place] [address] Oct, 2014 [facility] [address] [id number] [address] [place] [address], [place] [address] Oct, 2014 [facility] [address] [id number] [address] [place] [address], [place] [address] Jul, [facility] [address] [id number] [address] [place] [address], [place] [address] Jul, [facility] [address] [id number] [address] [place] [address], [place] [address] Jun, [facility] [address] [id number] [address] [place] [address], [place] [address] 29 Jun, 2014 [facility] [address] [id number] [address] [place] [address], [place] [address] Jun, [facility] [address] [id number] [address] [place] [address], [place] [address] 17 Jun, 2014 [facility] [address] [id number] [address] [place] [address], [place] [address] 15 Jun, 2014 [facility] [address] [id number] [address] [place] [address], [place] [address] 15 Jun, 2014 [facility] [address] [id number] [address] [place] [address], [place] [address] 14 Jun, 2014 [facility] [address] [id number] [address] [place] [address], [place] [address] 14 Jun, 2014 [facility] [address] [id number] [address] [place] [address], [place] [address] 13 Jun, 2014 [facility] [address] [id number] [address] [place] [address], [place] [address] Jun, [facility] [address] [id number] [address] [place] [address], [place] [address] 08 Jun, 2014 [facility] [address] [id number] [address] [place] [address], [place] [address] 08 Jun, 2014 [facility] [address] [id number] [address] [place] [address], [place] [address] Jun, [facility] [address] [id number] [address] [place] [address], [place] [address] Jun, [facility] [address] [id number] [address] [place] [address], [place] [address] 30 May, 2014 [facility] [address] [id number] [address] [place] [address], [place] [address] 30 May, 2014 [facility] [address] [id number] [address] [place] [address], [place] [address] May, [facility] [address] [id number] [address] [place] [address], [place] [address] May, [facility] [address] [id number] [address] [place] [address], [place] [address] 05 May, 2014 [facility] [address] [id number] [address] [place] [address], [place] [address] 05 May, 2014 [facility] [address] [id number] [address] [place] [address], [place] [address] Apr, [facility] [address] [id number] [address] [place] [address], [place] [address] Apr, [facility] [address] [id number] [address] [place] [address], [place] [address] Apr, [facility] [address] [id number] [address] [place] [address], [place] [address] Apr, [facility] [address] [id number] [address] [place] [address], [place] [address] Apr, [facility] [address] [id number] [address] [place] [address], [place] [address] Apr, [facility] [address] [id number] [facility] [place] [address] Apr, [facility] [address] [id number] [facility] [place] [address] Apr, [facility] [address] [id number] [facility] [place] [address] Apr, [facility] [address] [id number] [address] [place] [address], [place] [address] Apr, [facility] [address] [id number] [address] [place] [address], [place] [address] Apr, [facility] [address] [id number] [address] [place] [address], [place] [address] Apr, [facility] [address] [id number] [address] [place] [address], [place] [address] Mar, [facility] [address] [id number] [address] [place] [address], [place] [address] Mar, [facility] [address] [id number] [address] [place] [address], [place] [address] Mar, [facility] [address] [id number] [address] [place] [address], [place] [address] Mar, [facility] [address] [id number] [address] [place] [address], [place] [address] Mar, [facility] [address] [id number] [address] [place] [address], [place] [address] Mar, [facility] [address] [id number] [address] [place] [address], [place] [address] Mar, [facility] [address] [id number] [address] [place] [address], [place] [address] Mar, [facility] [address] [id number] [address] [place] [address], [place] [address] Mar, [facility] [address] [id number] [facility] [place] [address] Mar, [facility] [address] [id number] [facility] [place] [address] Mar, [facility] [address] [id number] [facility] [place] [address] Feb, [facility] [address] [id number] [facility] [place] [address] Feb, [facility] [address] [id number] [address] [place] [address], [place] [address] Feb, [facility] [address] [id number] [address] [place] [address], [place] [address] Feb, [facility] [address] [id number] [address] [place] [address], [place] [address] Feb, [facility] [address] [id number] [address] [place] [address], [place] [address] Feb, [facility] [address] [id number] [address] [place] [address], [place] [address] Feb, [facility] [address] [id number] [address] [place] [address], [place] [address] Feb, [facility] [address] [id number] [address] [place] [address], [place] [address] Feb, [facility] [address] [id number] [address] [place] [address], [place] [address] Feb, [facility] [address] [id number] [address] [place] [address], [place] [address] January, [facility] [address] [id number] [address] [place] [address], [place] [address] January, [facility] [address] [id number] [address] [place] [address], [place] [address] January, [facility] [address] [id number] [address] [place] [address], [place] [address] January, [facility] [address] [id number] [facility] [place] [address] January, [facility] [address] [id number] [address] [place] [address], [place] [address] January, [facility] [address] [id number] [address] [place] [address], [place] [address] January, [facility] [address] [id number] [address] [place] [address], [place] [address] January, [facility] [address] [id number] [address] [place] [address], [place] [address] January, [facility] [address] [id number] [address] [place] [address], [place] [address] January, [facility] [address] [id number] [address] [place] [address], [place] [address] January, [facility] [address] [id number] [address] [place] [address], [place] [address] January, [facility] [address] [id number] [address] [place] [address], [place] [address] January, [facility] [address] [id number] [address] [place] [address], [place] [address] January, [facility] [address] [id number] [address] [place] [address], [place] [address] January, [facility] [address] [id number] [address] [place] [address], [place] [address] January, [facility] [address] [id number] [address] [place] [address], [place] [address] Dec, [facility] [address] [id number] [address] [place] [address], [place] [address] Dec, [facility] [address] [id number] [address] [place] [address], [place] [address] Dec, [facility] [address] [id number] [address] [place] [address], [place] [address] 17 Dec, 2013 [facility] [address] [id number] [address] [place] [address], [place] [address] Dec, [facility] [address] [id number] [address] [place] [address], [place] [address] Dec, [facility] [address] [id number] [address] [place] [address], [place] [address] Dec, [facility] [address] [id number] [address] [place] [address], [place] [address] Dec, [facility] [address] [id number] [address] [place] [address], [place] [address] Dec, [facility] [address] [id number] [address] [place] [address], [place] [address] Dec, [facility] [address] [id number] [address] [place] [address], [place] [address] Nov, [facility] [address] [id number] [address] [place] [address], [place] [address] Nov, [facility] [address] [id number] [address] [place] [address], [place] [address] Oct, [facility] [address] [id number] [address] [place] [address], [place] [address] Oct, [facility] [address] [id number] [address] [place] [address], [place] [address] Oct, [facility] [address] [id number] [address] [place] [address], [place] [address] Sep, [facility] [address] [id number] [address] [place] [address], [place] [address] Sep, [facility] [address] [id number] [address] [place] [address], [place] [address] Sep, [facility] [address] [id number] [address] [place] [address], [place] [address] Sep, [facility] [address] [id number] [address] [place] [address], [place] [address] Sep, [facility] [address] [id number] [address] [place] [address], [place] [address] Sep, [facility] [address] [id number] [address] [place] [address], [place] [address] Sep, [facility] [address] [id number] [address] [place] [address], [place] [address] Sep, [facility] [address] [id number] [address] [place] [address], [place] [address] Sep, [facility] [address] [id number] [address] [place] [address], [place] [address] Sep, [facility] [address] [id number] [address] [place] [address], [place] [address] Sep, [facility] [address] [id number] [address] [place] [address], [place] [address] Sep, [facility] [facility] [address] [id number] [address] [place] [address], [place] [address] Aug, [facility] [address] [id number] [address] [place] [address], [place] [address] Aug, [facility] [address] [id number] [address] [place] [address], [place] [address] Aug, [facility] [address] [id number] [address] [place] [address], [place] [address] Aug, [facility] [address] [id number] [address] [place] [address], [place] [address] Jul, [facility] [address] [id number] [address] [place] [address], [place] [address] Jul, [facility] [address] [id number] [address] [place] [address], [place] [address] Jun, [facility] [address] [id number] [address] [place] [address] [place] [address] 30 Jun, 2013 [facility] [address] [id number] [address] [place] [address], [place] [address] Jun, [facility] [address] [id number] [address] [place] [address], [place] [address] Jun, [facility] [address] [id number] [address] [place] [address], [place] [address] Jun, [facility] [address] [id number] [address] [place] [address], [place] [address] Jun, [facility] [address] [id number] [address] [place] [address], [place] [address] Jun, [facility] [address] [id number] [address] [place] [address], [place] [address] Jun, [facility] [address] [id number] [address] [place] [address], [place] [address] 24 May, 2012 [facility] [address] [id number] [address] [place] [address], [place] [address] 23 May, 2012 [facility] [address] [id number] [address] [place] [address], [place] [address] 18 May, 2012 [facility] [address] [id number] [address] [place] [address], [place] [address] 13 May, 2012 [facility] [address] [id number] [address] [place] [address], [place] [address] 11 May, 2012 [facility] [address] [id number] [address] [place] [address], [place] [address] 06 May, 2012 [facility] [address] [id number] [address] [place] [address], [place] [address] 03 May, 2012 [facility] [address] [id number] [address] [place] [address], [place] [address] 30 Apr, 2013 [facility] [address] [id number] [address] [place] [address], [place] [address] 22 Apr, 2013 [facility] [address] [id number] [address] [place] [address], [place] [address] Apr, [facility] [address] [id number] [address] [place] [address], [place] [address] Apr, [facility] [address] [id number] [address] [place] [address], [place] [address] Apr, [facility] [address] [id number] [address] [place] [address], [place] [address] Apr, [facility] [address] [id number] [address] [place] [address], [place] [address] Apr, [facility] [address] [id number] [address] [place] [address], [place] [address] Mar, [facility] [address] [id number] [address] [place] [address], [place] [address] Mar, [facility] [address] [id number] [address] [place] [address], [place] [address] Mar, [facility] [address] [id number] [address] [place] [address], [place] [address] Mar, [facility] [address] [id number] [address] [place] [address], [place] [address] Mar, [facility] [address] [id number] [address] [place] [address], [place] [address] Mar, [facility] [address] [id number] [address] [place] [address], [place] [address] Mar, [facility] [address] [id number] [address] [place] [address], [place] [address] Mar, [facility] [address] [id number] [address] [place] [address], [place] [address] Feb, [facility] [address] [id number] [address] [place] [address], [place] [address] Feb, [facility] [address] [id number] [address] [place] [address], [place] [address] Feb, [facility] [address] [id number] [address] [place] [address], [place] [address] January, [facility] [address] [id number] [address] [place] [address], [place] [address] January, [facility] [address] [id number] [address] [place] [address], [place] [address] January, [facility] [address] [id number] [address] [place] [address], [place] [address] January, [facility] [address] [id number] [address] [place] [address], [place] [address] January, [facility] [address] [id number] [address] [place] [address], [place] [address] January, [facility] [address] [id number] [address] [place] [address], [place] [address] January, [facility] [address] [id number] [address] [place] [address], [place] [address] January, [facility] [address] [id number] [address] [place] [address], [place] [address] Dec, [facility] [address] [id number] [address] [place] [address], [place] [address] Dec, [facility] [address] [id number] [address] [place] [address], [place] [address] Dec, [facility] [address] [id number] [address] [place] [address], [place] [address] Dec, [facility] [address] [id number] [address] [place] [address], [place] [address] Dec, [facility] [address] [id number] [address] [place] [address], [place] [address] Nov, [facility] [address] [id number] [address] [place] [address], [place] [address] Nov, [facility] [address] [id number] [address] [place] [address], [place] [address] 19 Nov, 2012 [facility] [address] [id number] [address] [place] [address], [place] [address] 18 Nov, 2012 [facility] [address] [id number] [address] [place] [address], [place] [address] 18 Nov, 2012 [facility] [address] [id number] [address] [place] [address], [place] [address] 14 Nov, 2012 [facility] [address] [id number] [address] [place] [address], [place] [address] 11 Nov, 2012 [facility] [address] [id number] [address] [place] [address], [place] [address] 11 Nov, 2012 [facility] [address] [id number] [address] [place] [address], [place] [address] 21 Oct, 2012 [facility] [address] [id number] [address] [place] [address], [place] [address] 21 Oct, 2012 [facility] [address] [id number] [address] [place] [address], [place] [address] 12 Oct, 2012 [facility] [address] [id number] [address] [place] [address], [place] [address] 08 Oct, 2012 [facility] [address] [id number] [address] [place] [address], [place] [address] 07 Oct, 2012 [facility] [address] [id number] [address] [place] [address], [place] [address] 07 Oct, 2012 [facility] [address] [id number] [address] [place] [address], [place] [address] 05 Oct, 2012 [facility] [address] [id number] [address] [place] [address], [place] [address] 04 Oct, 2012 [facility] [address] [id number] [address] [place] [address], [place] [address] 04 Oct, 2012 [facility] [address] [id number] [address] [place] [address], [place] [address] Sep, [facility] [address] [id number] [address] [place] [address], [place] [address] Sep, [facility] [address] [id number] [address] [place] [address], [place] [address] Sep, [facility] [address] [id number] [address] [place] [address], [place] [address] Sep, [facility] [address] [id number] [address] [place] [address], [place] [address] Sep, [facility] [address] [id number] [address] [place] [address], [place] [address] Sep, [facility] [address] [id number] [address] [place] [address], [place] [address] Aug, [facility] [address] [id number] [address] [place] [address], [place] [address] Aug, [facility] [address] [id number] [address] [place] [address], [place] [address] Aug, [facility] [address] [id number] [address] [place] [address], [place] [address] Aug, [facility] [address] [id number] [address] [place] [address], [place] [address] Aug, [facility] [address] [id number] [address] [place] [address], [place] [address] 18 Aug, 2012 [facility] [address] [id number] [address] [place] [address], [place] [address] 13 Aug, 2012 [facility] [address] [id number] [address] [place] [address], [place] [address] Aug, [facility] [address] [id number] [address] [place] [address], [place] [address] Aug, [facility] [address] [id number] [address] [place] [address], [place] [address] Jul, [facility] [address] [id number] [address] [place] [address] Jul, [facility] [address] [id number] [address] [place] [address] Jul, [facility] [address] [id number] [address] [place] [address] Jul, [facility] [address] [facility] [id number] [address] [place] [address] Nov, [facility] [address] [facility] [id number] [address] [place] [address] Sep, [facility] [address] [facility] [id number] [address] [place] [address] Aug, [facility] [address] [facility] [id number] [address] [place] [address] Aug, [facility] [address] [facility] [id number] [address] [place] [address] Aug, [facility] [address] [facility] [id number] [address] [place] [address] Jul, IMMUNIZATIONS No Known Immunizations SOCIAL HISTORY [...] 05/2005 Surgical History Right Rotator Cuff Repair [facility] 06/2016 Surgical History Colonoscopy Kido (1 Polyp) repeat 5 year s 2019 2014 Surgical History right rotator cuff surgery 06/27/2016 Hospitalization History Overdosed on Clonazepam #35. Lori parvin 03/2014 Hospitalization History Overdosed on Xanax 07/2012 Hospitalization History Hypostension-medication side effect-[facility] 03/13/16
--- OUTSIDE RECORDS SUMMARY | 2019-09-11 12:30 | XMS REPORT ---
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 Active 029208060 Problem Abdominal pain R10.9 Active 94619 001 Problem Change in bowel habit R19.4 Active 06372300 Problem Coronary atherosclerosis due to lipid rich plaque I25.83 Active 65102918 Problem Type 2 diabetes 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 E11.8 Active 60342094 Problem Impotence N52.9 Active 777050947 Problem Family history of colon cancer Z80.0 Active 954213950 Problem Diabetic neuropathy, painful E11.40 A ctive 872660537 Problem Arm paresthesia, right R20.2 Active 79356704 Problem Gastroesophageal reflux disease without esophagitis K21.9 Active 668236072 Problem Drug abuse, opioid type F11.10 Active 0431981 Problem COPD exacerbation J44.1 Active 19 9587772 Problem Obstructive sleep apnea syndrome G47.33 Active 44980459 Problem Diverticulitis K57.92 Active 17035 6006 Problem Pain of right upper extremity M79.601 Active 729302048 Problem Respiratory bronchiolitis interstitial lung disease J84.115 Active 675670849 Problem Hypoxia R09.02 Active 534348688 Problem Interstitial lung disease J84.9 Acti ve [id number] ALLERGIES No Information ENCOUNTERS Encounter Location Date Diagnosis [facility] [address] [facility] [id number] [address] [place] [address] May, [facility] [address] [facility] [id number] [address] [place] [address] Aug, [facility] [address] [facility] [id number] [address] [place] [address] Aug, Diabetic neuropathy, painful E11.40 ; Interstitial lung disease J84.9 ; Chronic cough R05 ; Type 2 diabetes 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 E11.8 and [facility] 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.4 [facility] [address] [facility] [id number] [address] [place] [address] Jul, [facility] [address] [facility] [id number] [address] [place] [address] Jul, [facility] [address] [facility] [id number] [address] [place] [address] Jul, Diabetic neuropathy, painful E11.40 [facility] [address] [facility] [id number] [address] [place] [address] Jul, Type 2 diabetes mellitus wit h complication E11.8 [facility] [address] [facility] [id number] [address] [place] [address] Jun, Diabetic neuropathy, painful E11.40 [facility] [address] [facility] [id number] [address] [place] [address] Jun, [facility] [address] [facility] [id number] [address] [place] [address] Jun, Type 2 diabetes mellitus wit h complication E11.8 ; Other viral agents as the cause of diseases classified elsewhere B97.89 ; Acute upper respiratory infection, unspecified J06.9 ; Acute recurrent maxillary sinusitis J01.01 ; Sore throat J02.9 and Headache R51 [facility] [address] [facility] [id number] [address] [place] [address] Jun, Right lower quadrant abdomin al pain R10.31 and Type 2 diabetes 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 E11.8 [facility] [address] [facility] [id number] [address] [place] [address] 27 May, 2017 Diabetic neuropathy, painful E11.40 [facility] [address] [facility] [id number] [address] [place] [address] May, COPD exacerbation J44.1 and Type 2 diabetes 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 E11.8 [place] [address] [address] Apr, Diabetic neuropathy, painful E11.40 [place] [address] [address] Apr, Diabetic neuropathy, painful E11.40 [facility] [address] [address] Mar, Bronchitis J40 [place] [address] [address] January, Type 2 diabetes mellitus wit h [...] M48.02 [facility] [place] [address] [address] January, Viral gastroenteritis A08.4 [place] [address] [address] [place] [id number] [address] [place] [address] Dec, Diabetic neuropathy, painful E11.40 [facility] [address] [place] [id number] [place] [id number] Oct, [place] [address] [address] [place] [id number] [address] [place] [address] Oct, Acute right-sided weakness M 62.89 and Slurring of speech R47.81 [place] [address] [address] [place] [id number] [address] [place] [address] Sep, Type 2 diabetes mellitus wit h complication E11.8 ; Diabetic neuropathy, painful E11.40 ; Impotence N52.9 ; Coronary atherosclerosis due to lipid rich plaque I25.83 ; 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 ; Interstitial lung disease J84.9 ; Hypoxia R09.02 ; Essential hypertension I10 and Gastroesophageal reflux disease without esophagitis K21.9 [facility] [address] [facility] [id number] [address] [place] [address] Sep, Bronchitis J40 [facility] [address] [facility] [id number] [address] [place] [address] Aug, Gastroenteritis and colitis, viral A08.4 [facility] [address] [facility] [id number] [address] [place] [address] Aug, [place] [address] [facility] [id number] [address] [place] [address] Jun, Type 2 diabetes mellitus wit h complication E11.8 ; Diabetic neuropathy, painful E11.40 ; Impotence N52.9 ; Coronary atherosclerosis due to lipid rich plaque I25.83 ; 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 ; Interstitial lung disease J84.9 ; Hypoxia R09.02 and Essential hypertension I10 [place] [address] [facility] [id number] [address] [place] [address] 30 May, 2016 Bronchitis J40 [facility] [address] [facility] [id number] [address] [place] [address] 29 May, 2016 [place] [address] [facility] [id number] [address] [place] [address] May, Pain of right upper extremit y M79.601 [facility] [address] [id number] [address] [place] [address] May, [place] [address] [id number] [address] [place] [address] 15 May, 2016 [place] [address] [facility] [id number] [address] [place] [address] 07 May, 2016 Right hand pain M79.641 [place] [address] [facility] [id number] [address] [place] [address] Apr, [place] [address] [facility] [id number] [address] [place] [address] Apr, [place] [address] [facility] [id number] [address] [place] [address] Mar, [place] [address] [facility] [id number] [address] [place] [address] Mar, Essential hypertension I10 [place] [address] [facility] [id number] [address] [place] [address] Feb, [place] [address] [facility] [id number] [address] [place] [address] Feb, Interstitial lung disease J8 4.9 and Bronchitis J40 [place] [address] [facility] [id number] [address] [place] [address] Feb, [place] [address] [address] Feb, Type 2 diabetes mellitus wit h complication E11.8 ; Impotence N52.9 ; Coronary atherosclerosis due to lipid rich plaque I25.83 ; 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 and Diabetic neuropathy, painful E11.40 [place] [address] [facility] [id number] [address] [place] [address] January, [place] [address] [place] [id number] [address] [place] [address] January, Arm paresthesia, right R20.2 and Pain of right upper extremity M79.601 [place] [address] [facility] [id number] [address] [place] [address] Dec, Lumbar strain S39.012A [place] [address] [facility] [id number] [address] [place] [address] Nov, Diabetic neuropathy, painful E11.40 ; Respiratory bronchiolitis interstitial lung disease J84.115 ; Pain of right upper extremity M79.601 and Arm paresthesia, right R20.2 [place] [address] [address] Nov, Diabetic neuropathy, painful E11.[address] [address] Sep, Type 2 diabetes mellitus wit h complication E11.8 ; Impotence N52.9 ; Coronary atherosclerosis due to lipid rich plaque I25.83 ; [facility] 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.4 ; Diabetic neuropathy, painful E11.40 ; Chest pain R07.9 and Restless leg G25.81 [place] [address] [address] Sep, [address] [address] Jul, COPD (chronic obstructive pu lmonary disease) with acute bronchitis J44.[address] [address] Jun, Abdominal pain R10.9 ; Famil y history of colon cancer Z80.0 and Diverticulitis K57.[address] [address] Jun, Abdominal pain R10.9 and Div erticulitis K57.[address] [address] Apr, Diabetes with other specifie d manifestations, type II or unspecified type, not stated as uncontrolled 250.80 ; Coronary atherosclerosis of unspecified type of vessel, lac vieux or graft 414.00 ; Unspecified essential hypertension 401.9 ; Impotence of organic origin 607.84 ; Sleep apnea 780.57 and Interstitial lung disease [address] [address] Dec, [address] [address] Dec, [address] [address] Nov, [facility] [address] [id number] [address] [place] [address], [place] [address] Nov, [facility] [address] [id number] [address] [place] [address], [place] [address] Nov, [facility] [address] [id number] [address] [place] [address], [place] [address] Nov, [facility] [address] [id number] [address] [place] [address], [place] [address] Nov, [facility] [address] [id number] [address] [place] [address], [place] [address] Nov, [facility] [address] [id number] [address] [place] [address], [place] [address] Nov, [facility] [address] [id number] [address] [place] [address], [place] [address] Nov, [facility] [address] [id number] [address] [place] [address], [place] [address] Nov, [facility] [address] [id number] [address] [place] [address], [place] [address] Nov, [facility] [address] [id number] [address] [place] [address], [place] [address] Oct, [facility] [address] [id number] [address] [place] [address], [place] [address] Oct, [facility] [address] [id number] [address] [place] [address] Oct, [facility] [address] [id number] [address] [place] [address], [place] [address] Oct, [facility] [address] [id number] [address] [place] [address], [place] [address] Oct, 2014 [facility] [address] [id number] [address] [place] [address], [place] [address] Oct, 2014 [facility] [address] [id number] [address] [place] [address], [place] [address] 04 Oct, 2014 [facility] [address] [id number] [address] [place] [address], [place] [address] 04 Oct, 2014 [facility] [address] [id number] [address] [place] [address], [place] [address] Oct, 2014 [facility] [address] [id number] [address] [place] [address], [place] [address] Oct, 2014 [facility] [address] [id number] [address] [place] [address], [place] [address] Oct, 2014 [facility] [address] [id number] [address] [place] [address], [place] [address] Jul, [facility] [address] [id number] [address] [place] [address], [place] [address] Jul, [facility] [address] [id number] [address] [place] [address], [place] [address] Jun, [facility] [address] [id number] [address] [place] [address], [place] [address] 29 Jun, 2014 [facility] [address] [id number] [address] [place] [address], [place] [address] Jun, [facility] [address] [id number] [address] [place] [address], [place] [address] 17 Jun, 2014 [facility] [address] [id number] [address] [place] [address], [place] [address] 15 Jun, 2014 [facility] [address] [id number] [address] [place] [address], [place] [address] 15 Jun, 2014 [facility] [address] [id number] [address] [place] [address], [place] [address] 14 Jun, 2014 [facility] [address] [id number] [address] [place] [address], [place] [address] 14 Jun, 2014 [facility] [address] [id number] [address] [place] [address], [place] [address] Jun, [facility] [address] [id number] [address] [place] [address], [place] [address] Jun, [facility] [address] [id number] [address] [place] [address], [place] [address] 08 Jun, 2014 [facility] [address] [id number] [address] [place] [address], [place] [address] Jun, [facility] [address] [id number] [address] [place] [address], [place] [address] Jun, [facility] [address] [id number] [address] [place] [address], [place] [address] Jun, [facility] [address] [id number] [address] [place] [address], [place] [address] 30 May, 2014 [facility] [address] [id number] [address] [place] [address], [place] [address] 30 May, 2014 [facility] [address] [id number] [address] [place] [address], [place] [address] May, [facility] [address] [id number] [address] [place] [address], [place] [address] May, [facility] [address] [id number] [address] [place] [address], [place] [address] 05 May, 2014 [facility] [address] [id number] [address] [place] [address], [place] [address] May, [facility] [address] [id number] [address] [place] [address], [place] [address] Apr, [facility] [address] [id number] [address] [place] [address], [place] [address] Apr, [facility] [address] [id number] [address] [place] [address], [place] [address] Apr, [facility] [address] [id number] [address] [place] [address], [place] [address] Apr, [facility] [address] [id number] [address] [place] [address], [place] [address] Apr, [facility] [address] [id number] [facility] [place] [address] Apr, [facility] [address] [id number] [facility] [place] [address] Apr, [facility] [address] [id number] [facility] [place] [address] Apr, [facility] [address] [id number] [facility] [place] [address] Apr, [facility] [address] [id number] [address] [place] [address], [place] [address] Apr, [facility] [address] [id number] [address] [place] [address], [place] [address] Apr, [facility] [address] [id number] [address] [place] [address], [place] [address] Apr, [facility] [address] [id number] [address] [place] [address], [place] [address] Mar, [facility] [address] [id number] [address] [place] [address], [place] [address] Mar, [facility] [address] [id number] [address] [place] [address], [place] [address] Mar, [facility] [address] [id number] [address] [place] [address], [place] [address] Mar, [facility] [address] [id number] [address] [place] [address], [place] [address] Mar, [facility] [address] [id number] [address] [place] [address], [place] [address] Mar, [facility] [address] [id number] [address] [place] [address], [place] [address] Mar, [facility] [address] [id number] [address] [place] [address], [place] [address] Mar, [facility] [address] [id number] [facility] [place] [address] Mar, [facility] [address] [id number] [facility] [place] [address] Mar, [facility] [address] [id number] [facility] [place] [address] Mar, [facility] [address] [id number] [facility] [place] [address] Feb, [facility] [address] [id number] [address] [place] [address], [place] [address] Feb, [facility] [address] [id number] [address] [place] [address], [place] [address] Feb, [facility] [address] [id number] [address] [place] [address], [place] [address] Feb, [facility] [address] [id number] [address] [place] [address], [place] [address] Feb, [facility] [address] [id number] [address] [place] [address], [place] [address] Feb, [facility] [address] [id number] [address] [place] [address], [place] [address] Feb, [facility] [address] [id number] [address] [place] [address], [place] [address] Feb, [facility] [address] [id number] [address] [place] [address], [place] [address] Feb, [facility] [address] [id number] [address] [place] [address], [place] [address] Feb, [facility] [address] [id number] [address] [place] [address], [place] [address] January, [facility] [address] [id number] [address] [place] [address], [place] [address] January, [facility] [address] [id number] [address] [place] [address], [place] [address] January, [facility] [address] [id number] [facility] [place] [address] January, [facility] [address] [id number] [address] [place] [address], [place] [address] January, [facility] [address] [id number] [address] [place] [address], [place] [address] January, [facility] [address] [id number] [address] [place] [address], [place] [address] January, [facility] [address] [id number] [address] [place] [address], [place] [address] January, [facility] [address] [id number] [address] [place] [address], [place] [address] January, [facility] [address] [id number] [address] [place] [address], [place] [address] January, [facility] [address] [id number] [address] [place] [address], [place] [address] January, [facility] [address] [id number] [address] [place] [address], [place] [address] January, [facility] [address] [id number] [address] [place] [address], [place] [address] January, [facility] [address] [id number] [address] [place] [address], [place] [address] January, [facility] [address] [id number] [address] [place] [address], [place] [address] January, [facility] [address] [id number] [address] [place] [address], [place] [address] January, [facility] [address] [id number] [address] [place] [address], [place] [address] Dec, [facility] [address] [id number] [address] [place] [address], [place] [address] Dec, [facility] [address] [id number] [address] [place] [address], [place] [address] Dec, [facility] [address] [id number] [address] [place] [address], [place] [address] Dec, [facility] [address] [id number] [address] [place] [address], [place] [address] Dec, [facility] [address] [id number] [address] [place] [address], [place] [address] Dec, [facility] [address] [id number] [address] [place] [address], [place] [address] Dec, [facility] [address] [id number] [address] [place] [address], [place] [address] Dec, [facility] [address] [id number] [address] [place] [address], [place] [address] Dec, [facility] [address] [id number] [address] [place] [address], [place] [address] Dec, [facility] [address] [id number] [address] [place] [address], [place] [address] Nov, [facility] [address] [id number] [address] [place] [address], [place] [address] Nov, [facility] [address] [id number] [address] [place] [address], [place] [address] Oct, [facility] [address] [id number] [address] [place] [address], [place] [address] Oct, [facility] [address] [id number] [address] [place] [address], [place] [address] Oct, [facility] [address] [id number] [address] [place] [address], [place] [address] Sep, [facility] [address] [id number] [address] [place] [address], [place] [address] Sep, [facility] [address] [id number] [address] [place] [address], [place] [address] Sep, [facility] [address] [id number] [address] [place] [address], [place] [address] Sep, [facility] [address] [id number] [address] [place] [address], [place] [address] Sep, [facility] [address] [id number] [address] [place] [address], [place] [address] Sep, [facility] [address] [id number] [address] [place] [address], [place] [address] Sep, [facility] [address] [id number] [address] [place], [place] [address], [place] [address] Sep, [facility] [address] [id number] [address] [place] [address], [place] [address] Sep, [facility] [address] [id number] [address] [place] [address], [place] [address] Sep, [facility] [address] [id number] [address] [place] [address], [place] [address] Sep, [facility] [address] [id number] [address] [place] [address], [place] [address] Sep, [facility] [address] [id number] [address] [place] [address], [place] [address] Aug, [facility] [address] [id number] [address] [place] [address], [place] [address] Aug, [facility] [address] [id number] [address] [place] [address], [place] [address] Aug, [facility] [address] [id number] [address] [place] [address], [place] [address] Aug, [facility] [address] [id number] [address] [place] [address], [place] [address] Jul, [facility] [address] [id number] [address] [place] [address], [place] [address] Jul, [facility] [address] [id number] [address] [place] [address] [place] [address] Jun, [facility] [address] [id number] [address] [place] [address], [place] [address] Jun, [facility] [address] [id number] [address] [place] [address], [place] [address] Jun, [facility] [address] [id number] [address] [place] [address], [place] [address] Jun, [facility] [address] [id number] [address] [place] [address], [place] [address] Jun, [facility] [address] [id number] [address] [place] [address], [place] [address] Jun, [facility] [address] [id number] [address] [place] [address], [place] [address] Jun, [facility] [address] [id number] [address] [place] [address], [place] [address] Jun, [facility] [address] [id number] [address] [place] [address], [place] [address] 24 May, 2012 [facility] [address] [id number] [address] [place] [address], [place] [address] 23 May, 2012 [facility] [address] [id number] [address] [place] [address], [place] [address] 18 May, 2012 [facility] [address] [id number] [address] [place] [address], [place] [address] 13 May, 2012 [facility] [address] [id number] [address] [place] [address], [place] [address] 11 May, 2012 [facility] [address] [id number] [address] [place] [address], [place] [address] 06 May, 2012 [facility] [address] [id number] [address] [place] [address], [place] [address] 03 May, 2012 [facility] [address] [id number] [address] [place] [address], [place] [address] 30 Apr, 2013 [facility] [address] [id number] [address] [place] [address], [place] [address] Apr, [facility] [address] [id number] [address] [place] [address], [place] [address] Apr, [facility] [address] [id number] [address] [place] [address], [place] [address] Apr, [facility] [address] [id number] [address] [place] [address], [place] [address] Apr, [facility] [address] [id number] [address] [place] [address], [place] [address] Apr, [facility] [address] [id number] [address] [place] [address], [place] [address] Apr, [facility] [address] [id number] [address] [place] [address], [place] [address] Mar, [facility] [address] [id number] [address] [place] [address], [place] [address] Mar, [facility] [address] [id number] [address] [place] [address], [place] [address] Mar, [facility] [address] [id number] [address] [place] [address], [place] [address] Mar, [facility] [address] [id number] [address] [place] [address], [place] [address] Mar, [facility] [address] [id number] [address] [place] [address], [place] [address] Mar, [facility] [address] [id number] [address] [place] [address], [place] [address] Mar, [facility] [address] [id number] [address] [place] [address], [place] [address] Mar, [facility] [address] [id number] [address] [place] [address], [place] [address] Feb, [facility] [address] [id number] [address] [place] [address], [place] [address] Feb, [facility] [address] [id number] [address] [place] [address], [place] [address] Feb, [facility] [address] [id number] [address] [place] [address], [place] [address] January, [facility] [address] [id number] [address] [place] [address], [place] [address] January, [facility] [address] [id number] [address] [place] [address], [place] [address] January, [facility] [address] [id number] [address] [place] [address], [place] [address] January, [facility] [address] [id number] [address] [place] [address], [place] [address] January, [facility] [address] [id number] [address] [place] [address], [place] [address] January, [facility] [address] [id number] [address] [place] [address], [place] [address] January, [facility] [address] [id number] [address] [place] [address], [place] [address] January, [facility] [address] [id number] [address] [place] [address], [place] [address] Dec, [facility] [address] [id number] [address] [place] [address], [place] [address] Dec, [facility] [address] [id number] [address] [place] [address], [place] [address] Dec, [facility] [address] [id number] [address] [place] [address], [place] [address] Dec, [facility] [address] [id number] [address] [place] [address], [place] [address] Dec, [facility] [address] [id number] [address] [place] [address], [place] [address] Nov, [facility] [address] [id number] [address] [place] [address], [place] [address] 21 Nov, 2012 [facility] [address] [id number] [address] [place] [address], [place] [address] 19 Nov, 2012 [facility] [address] [id number] [address] [place] [address], [place] [address] 18 Nov, 2012 [facility] [address] [id number] [address] [place] [address], [place] [address] 18 Nov, 2012 [facility] [address] [id number] [address] [place] [address], [place] [address] 14 Nov, 2012 [facility] [address] [id number] [address] [place] [address], [place] [address] 11 Nov, 2012 [facility] [address] [id number] [address] [place] [address], [place] [address] 11 Nov, 2012 [facility] [address] [id number] [address] [place] [address], [place] [address] 21 Oct, 2012 [facility] [address] [id number] [address] [place] [address], [place] [address] 21 Oct, 2012 [facility] [address] [id number] [address] [place] [address], [place] [address] 12 Oct, 2012 [facility] [address] [id number] [address] [place] [address], [place] [address] 08 Oct, 2012 [facility] [address] [id number] [address] [place] [address], [place] [address] 07 Oct, 2012 [facility] [address] [id number] [address] [place] [address], [place] [address] 07 Oct, 2012 [facility] [address] [id number] [address] [place] [address], [place] [address] 05 Oct, 2012 [facility] [address] [id number] [address] [place] [address] 04 Oct, 2012 [facility] [address] [id number] [address] [place] [address] Oct, [facility] [address] [id number] [address] [place] [address], [place] [address] Sep, [facility] [address] [id number] [address] [place] [address], [place] [address] Sep, [facility] [address] [id number] [address] [place] [address], [place] [address] Sep, [facility] [address] [id number] [address] [place] [address], [place] [address] Sep, [facility] [address] [id number] [address] [place] [address], [place] [address] Sep, [facility] [address] [id number] [address] [place] [address], [place] [address] Sep, [facility] [address] [id number] [address] [place] [address], [place] [address] Aug, [facility] [address] [id number] [address] [place] [address], [place] [address] Aug, [facility] [address] [id number] [address] [place] [address], [place] [address] Aug, [facility] [address] [id number] [address] [place] [address], [place] [address] Aug, [facility] [address] [id number] [address] [place] [address], [place] [address] Aug, [facility] [address] [id number] [address] [place] [address], [place] [address] 18 Aug, 2012 [facility] [address] [id number] [address] [place] [address], [place] [address] 13 Aug, 2012 [facility] [address] [id number] [address] [place] [address], [place] [address] Aug, [facility] [address] [id number] [address] [place] [address], [place] [address] Aug, [facility] [address] [id number] [address] [place] [address] Jul, [facility] [address] [id number] [address] [place] [address] Jul, [facility] [address] [id number] [address] [place] [address] Jul, [facility] [address] [id number] [address] [place] [address] Jul, [facility] [address] [id number] [address] [place] [address] Nov, [facility] [address] [facility] [id number] [address] [place] [address] Sep, [facility] [address] [facility] [id number] [address] [place] [address] Aug, [facility] [address] [facility] [id number] [address] [place] [address] Aug, [facility] [address] [facility] [id number] [address] [place] [address] Aug, [facility] [address] [facility] [id number] [address] [place] [address] Jul, IMMUNIZATIONS No Known Immunizations SOCIAL HISTORY [...] Xanax 07/2012 Hospitalization History Hypostension-medication side effect-[facility] 03/13/16
--- OUTSIDE RECORDS SUMMARY | 2019-09-11 12:30 | XMS REPORT ---
Author Author BENITEZMiguel MANCINI Organization [facility] Address [address] [place] [address] Care Team Providers Care Security Police Officer Name Role Phone KENYATTA MARQUIS Unavailable PROBLEMS Type Condition ICD9-CM Code [id number]-EV Code Onset Dates Condition S tatus SNOMED Code Problem Neuropathy G62.9 Active 301216999 Problem Essential hypertension I10 Active 64052795 Problem [facility] 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.4 Active 996699432 Problem Abdominal pain R10.9 Active 37301 001 Problem Change in bowel habit R19.4 Active 46245649 Problem Coronary atherosclerosis due to lipid rich plaque I25.83 Active 76059808 Problem Type 2 diabetes 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 E11.8 Active 37168271 Problem Impotence N52.9 Active 020102711 Problem Family history of colon cancer Z80.0 Active 631751089 Problem Diabetic neuropathy, painful E11.40 A ctive 105825809 Problem Arm paresthesia, right R20.2 Active 29904145 Problem Gastroesophageal reflux disease without esophagitis K21.9 Active 326786942 Problem Drug abuse, opioid type F11.10 Active 6766914 Problem COPD exacerbation J44.1 Active 19 7312653 Problem Obstructive sleep apnea syndrome G47.33 Active 23544340 Problem Diverticulitis K57.92 Active 39046 6006 Problem Pain of right upper extremity M79.601 Active 243462307 Problem Respiratory bronchiolitis interstitial lung disease J84.115 Active 611733538 Problem Hypoxia R09.02 Active 013259321 Problem Interstitial lung disease J84.9 Acti ve [id number] ALLERGIES No Information ENCOUNTERS Encounter Location Date Diagnosis [facility] [address] [facility] [id number] [address] [place] [address] Aug, [facility] [address] [facility] [id number] [address] [place] [address] Aug, Diabetic neuropathy, painful E11.40 ; Interstitial lung disease J84.9 ; Chronic cough R05 ; Type 2 diabetes 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 E11.8 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 [facility] [address] [place] [address] Jul, [facility] [address] [place] [id number] [address] [place] [address] Jul, [facility] [address] [place] [id number] [place] [address] Jul, Diabetic neuropathy, painful E11.40 [place] [address] [address] [place] [id number] [place] [address] Jul, Type 2 diabetes mellitus wit h complication E11.8 [place] [address] [place] [id number] [place] [address] Jun, Diabetic neuropathy, painful E11.40 [facility] [address] [address] Jun, [facility] [address] [place] [id number] [place] [address] Jun, Type 2 diabetes mellitus wit h complication E11.8 ; Other viral agents as the cause of diseases classified elsewhere B97.89 ; Acute upper respiratory infection, unspecified J06.9 ; Acute recurrent maxillary sinusitis J01.01 ; Sore throat J02.9 and Headache R51 [facility] [address] [place] [address] Jun, Right lower quadrant abdomin al pain R10.31 and Type 2 diabetes 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 E11.8 [place] [address] [place] [id number] [address] [place] [address] May, Diabetic neuropathy, painful E11.40 [facility] [address] [place] [id number] [place] [address] 06 May, 2017 COPD exacerbation J44.1 and Type 2 diabetes 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 E11.8 [facility] [address] [place] [id number] [address] [place] [address] Apr, Diabetic neuropathy, painful E11.40 [place] [address] [address] Apr, Diabetic neuropathy, painful E11.40 [facility] [address] [address] Mar, Bronchitis J40 [place] [address] [address] January, Type 2 diabetes mellitus wit h complication E11.8 ; Diabetic neuropathy, painful E11.40 ; Impotence N52.9 ; Coronary atherosclerosis due to lipid rich plaque I25.83 ; 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 ; Interstitial lung disease J84.9 ; Hypoxia R09.02 ; Essential hypertension I10 ; Gastroesophageal reflux disease without esophagitis K21.9 ; Left upper arm pain M79.622 and Cervical spinal stenosis M48.02 [facility] [place] [address] [address] January, Viral gastroenteritis A08.4 [place] [address] [address] Dec, Diabetic neuropathy, painful E11.40 [facility] [address] [id number] Oct, [place] [address] [address] Oct, Acute right-sided weakness M 62.89 and Slurring of speech R47.81 [place] [address] [address] Sep, Type 2 diabetes mellitus wit h complication E11.8 ; Diabetic neuropathy, painful E11.40 ; Impotence N52.9 ; Coronary atherosclerosis due to lipid rich plaque I25.83 ; [facility] 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.4 ; Interstitial lung disease J84.9 ; Hypoxia R09.02 ; Essential hypertension I10 and Gastroesophageal reflux disease without esophagitis K21.9 [facility] [address] [facility] [id number] [address] [place] [address] Sep, Bronchitis J40 [facility] [address] [facility] [id number] [address] [place] [address] Aug, Gastroenteritis and colitis, viral A08.4 [facility] [address] [facility] [id number] [address] [place] [address] Aug, [facility] [address] [facility] [id number] [address] [place] [address] Jun, Type 2 diabetes mellitus wit h complication E11.8 ; Diabetic neuropathy, painful E11.40 ; Impotence N52.9 ; Coronary atherosclerosis due to lipid rich plaque I25.83 ; [facility] 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.4 ; Interstitial lung disease J84.9 ; Hypoxia R09.02 and Essential hypertension I10 [facility] [address] [facility] [id number] [address] [place] [address] 30 May, 2016 Bronchitis J40 [facility] [address] [facility] [id number] [address] [place] [address] 29 May, 2016 [facility] [address] [facility] [id number] [address] [place] [address] May, Pain of right upper extremit y M79.601 [facility] [address] [facility] [id number] [address] [place] [address] May, [facility] [address] [facility] [id number] [address] [place] [address] 15 May, 2016 [facility] [address] [id number] [address] [place] [address] 07 May, 2016 Right hand pain M79.641 [facility] [address] [facility] [id number] [address] [place] [address] Apr, [facility] [address] [facility] [id number] [address] [place] [address] Apr, [facility] [address] [facility] [id number] [address] [place] [address] Mar, [facility] [address] [facility] [id number] [address] [place] [address] Mar, Essential hypertension I10 [facility] [address] [facility] [id number] [address] [place] [address] Feb, [place] [address] [facility] [id number] [address] [place] [address] Feb, Interstitial lung disease J8 4.9 and Bronchitis J40 [place] [address] [facility] [id number] [address] [place] [address] Feb, [place] [address] [facility] [id number] [address] [place] [address] Feb, Type 2 diabetes mellitus wit h complication E11.8 ; Impotence N52.9 ; Coronary atherosclerosis due to lipid rich plaque I25.83 ; 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 and Diabetic neuropathy, painful E11.40 [place] [address] [facility] [id number] [address] [place] [address] January, [place] [address] [facility] [id number] [address] [place] [address] January, Arm paresthesia, right R20.2 and Pain of right upper extremity M79.601 [place] [address] [facility] [id number] [address] [place] [address] Dec, Lumbar strain S39.012A [place] [address] [facility] [id number] [address] [place] [address] Nov, Diabetic neuropathy, painful E11.40 ; Respiratory bronchiolitis interstitial lung disease J84.115 ; Pain of right upper extremity M79.601 and Arm paresthesia, right R20.2 [place] [address] [facility] [id number] [address] [place] [address] Nov, Diabetic neuropathy, painful E11.40 [facility] [address] [address] Sep, Type 2 diabetes mellitus wit h complication E11.8 ; Impotence N52.9 ; Coronary atherosclerosis due to lipid rich plaque I25.83 ; 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 ; Diabetic neuropathy, painful E11.40 ; Chest pain R07.9 and Restless leg G25.[address] [address] Sep, [address] [address] Jul, COPD (chronic obstructive pu lmonary disease) with acute bronchitis J44.[address] [address] Jun, Abdominal pain R10.9 ; Famil y history of colon cancer Z80.0 and Diverticulitis K57.[address] [address] Jun, Abdominal pain R10.9 and Div erticulitis K57.[address] [address] Apr, Diabetes with other specifie d manifestations, type II or unspecified type, not stated as uncontrolled 250.80 ; Coronary atherosclerosis of unspecified type of vessel, [place] or graft 414.00 ; Unspecified essential hypertension 401.9 ; Impotence of organic origin 607.84 ; Sleep apnea 780.57 and Interstitial lung disease [address] [address] Dec, [address] [address] Dec, [address] [address] Nov, [address] [address] Nov, [facility] [address] [id number] [address] [place] [address], [place] [address] Nov, [facility] [address] [id number] [address] [place] [address], [place] [address] Nov, [facility] [address] [id number] [address] [place] [address], [place] [address] Nov, [facility] [address] [id number] [address] [place] [address], [place] [address] Nov, [facility] [address] [id number] [address] [place] [address], [place] [address] Nov, [facility] [address] [id number] [address] [place] [address], [place] [address] Nov, [facility] [address] [id number] [address] [place] [address], [place] [address] Nov, [facility] [address] [id number] [address] [place] [address], [place] [address] Nov, [facility] [address] [id number] [address] [place] [address], [place] [address] Oct, [facility] [address] [id number] [address] [place] [address], [place] [address] Oct, 2014 [facility] [address] [id number] [address] [place] [address], [place] [address] Oct, 2014 [facility] [address] [id number] [address] [place] [phone] Oct, 2014 [facility] [address] [id number] [address] [place] [address], [place] [address] Oct, 2014 [facility] [address] [id number] [address] [place] [address], [place] [address] Oct, 2014 [facility] [address] [id number] [address] [place] [address], [place] [address] Oct, 2014 [facility] [address] [id number] [address] [place] [address], [place] [address] 04 Oct, 2014 [facility] [address] [id number] [address] [place] [address], [place] [address] Oct, 2014 [facility] [address] [id number] [address] [place] [address], [place] [address] Oct, 2014 [facility] [address] [id number] [address] [place] [address], [place] [address] Oct, 2014 [facility] [address] [id number] [address] [place] [address], [place] [address] Jul, [facility] [address] [id number] [address] [place] [address], [place] [address] Jul, [facility] [address] [id number] [address] [place] [address], [place] [address] Jun, [facility] [address] [id number] [address] [place] [address], [place] [address] 29 Jun, 2014 [facility] [address] [id number] [address] [place] [address], [place] [address] Jun, [facility] [address] [id number] [address] [place] [address], [place] [address] 17 Jun, 2014 [facility] [address] [id number] [address] [place] [address], [place] [address] 15 Jun, 2014 [facility] [address] [id number] [address] [place] [address], [place] [address] 15 Jun, 2014 [facility] [address] [id number] [address] [place] [address], [place] [address] 14 Jun, 2014 [facility] [address] [id number] [address] [place] [address], [place] [address] 14 Jun, 2014 [facility] [address] [id number] [address] [place] [address], [place] [address] 13 Jun, 2014 [facility] [address] [id number] [address] [place] [address], [place] [address] Jun, [facility] [address] [id number] [address] [place] [address], [place] [address] 08 Jun, 2014 [facility] [address] [id number] [address] [place] [address], [place] [address] 08 Jun, 2014 [facility] [address] [id number] [address] [place] [address], [place] [address] Jun, [facility] [address] [id number] [address] [place] [address], [place] [address] Jun, [facility] [address] [id number] [address] [place] [address], [place] [address] 30 May, 2014 [facility] [address] [id number] [address] [place] [address], [place] [address] 30 May, 2014 [facility] [address] [id number] [address] [place] [address], [place] [address] May, [facility] [address] [id number] [address] [place] [address], [place] [address] May, [facility] [address] [id number] [address] [place] [address], [place] [address] 05 May, 2014 [facility] [address] [id number] [address] [place] [address], [place] [address] 05 May, 2014 [facility] [address] [id number] [address] [place] [address], [place] [address] Apr, [facility] [address] [id number] [address] [place] [address], [place] [address] Apr, [facility] [address] [id number] [address] [place] [address], [place] [address] Apr, [facility] [address] [id number] [address] [place] [address], [place] [address] Apr, [facility] [address] [id number] [address] [place] [address], [place] [address] Apr, [facility] [address] [id number] [address] [place] [address], [place] [address] Apr, [facility] [address] [id number] [facility] [place] [address] Apr, [facility] [address] [id number] [address] [place] [address], [place] [address] Apr, [facility] [address] [id number] [address] [place] [address], [place] [address] Apr, [facility] [address] [id number] [address] [place] [address], [place] [address] Apr, [facility] [address] [id number] [address] [place] [address], [place] [address] Apr, [facility] [address] [id number] [address] [place] [address], [place] [address] Apr, [facility] [address] [id number] [address] [place] [address], [place] [address] Mar, [facility] [address] [id number] [address] [place] [address], [place] [address] Mar, [facility] [address] [id number] [address] [place] [address], [place] [address] Mar, [facility] [address] [id number] [address] [place] [address], [place] [address] Mar, [facility] [address] [id number] [address] [place] [address], [place] [address] Mar, [facility] [address] [id number] [address] [place] [address], [place] [address] Mar, [facility] [address] [id number] [address] [place] [address], [place] [address] Mar, [facility] [address] [id number] [address] [place] [address], [place] [address] Mar, [facility] [address] [id number] [address] [place] [address], [place] [address] Mar, [facility] [address] [id number] [facility] [place] [address] Mar, [facility] [address] [id number] [facility] [place] [address] Mar, [facility] [address] [id number] [facility] [place] [address] Feb, [facility] [address] [id number] [facility] [place] [address] Feb, [facility] [address] [id number] [facility] [place] [address] Feb, [facility] [address] [id number] [address] [place] [address], [place] [address] Feb, [facility] [address] [id number] [address] [place] [address], [place] [address] Feb, [facility] [address] [id number] [address] [place] [address], [place] [address] Feb, [facility] [address] [id number] [address] [place] [address], [place] [address] Feb, [facility] [address] [id number] [address] [place] [address], [place] [address] Feb, [facility] [address] [id number] [address] [place] [address], [place] [address] Feb, [facility] [address] [id number] [address] [place] [address], [place] [address] Feb, [facility] [address] [id number] [address] [place] [address], [place] [address] January, [facility] [address] [id number] [address] [place] [address], [place] [address] January, [facility] [address] [id number] [address] [place] [address], [place] [address] January, [facility] [address] [id number] [address] [place] [address], [place] [address] January, [facility] [address] [id number] [facility] [place] [address] January, [facility] [address] [id number] [facility] [place] [address] January, [facility] [address] [id number] [address] [place] [address], [place] [address] January, [facility] [address] [id number] [address] [place] [address], [place] [address] January, [facility] [address] [id number] [address] [place] [address], [place] [address] January, [facility] [address] [id number] [address] [place] [address], [place] [address] January, [facility] [address] [id number] [address] [place] [address], [place] [address] January, [facility] [address] [id number] [address] [place] [address], [place] [address] January, [facility] [address] [id number] [address] [place] [address], [place] [address] January, [facility] [address] [id number] [address] [place] [address], [place] [address] January, [facility] [address] [id number] [address] [place] [address], [place] [address] January, [facility] [address] [id number] [address] [place] [address], [place] [address] January, [facility] [address] [id number] [address] [place] [address], [place] [address] Dec, [facility] [address] [id number] [address] [place] [address], [place] [address] Dec, [facility] [address] [id number] [address] [place] [address], [place] [address] Dec, [facility] [address] [id number] [address] [place] [address], [place] [address] 17 Dec, 2013 [facility] [address] [id number] [address] [place] [address], [place] [address] Dec, [facility] [address] [id number] [address] [place] [address], [place] [address] Dec, [facility] [address] [id number] [address] [place] [address], [place] [address] Dec, [facility] [address] [id number] [address] [place] [address], [place] [address] Dec, [facility] [address] [id number] [address] [place] [address], [place] [address] Dec, [facility] [address] [id number] [address] [place] [address], [place] [address] Dec, [facility] [address] [id number] [address] [place] [address], [place] [address] Nov, [facility] [address] [id number] [address] [place] [address], [place] [address] Nov, [facility] [address] [id number] [address] [place] [address], [place] [address] 07 Oct, 2013 [facility] [address] [id number] [address] [place] [address], [place] [address] 07 Oct, 2013 [facility] [address] [id number] [address] [place] [address], [place] [address] Oct, [facility] [address] [id number] [address] [place] [address], [place] [address] Sep, [facility] [address] [id number] [address] [place] [address], [place] [address] Sep, [facility] [address] [id number] [address] [place] [address], [place] [address] Sep, [facility] [address] [id number] [address] [place] [address], [place] [address] Sep, [facility] [address] [id number] [address] [place] [address], [place] [address] Sep, [facility] [address] [id number] [address] [place] [address], [place] [address] Sep, [facility] [address] [id number] [address] [place] [address], [place] [address] Sep, [facility] [address] [id number] [address] [place] [address], [place] [address] Sep, [facility] [address] [id number] [address] [place] [address], [place] [address] Sep, [facility] [address] [id number] [address] [place] [address], [place] [address] Sep, [facility] [address] [id number] [address] [place] [address], [place] [address] Sep, [facility] [address] [id number] [address] [place] [address], [place] [address] Sep, [facility] [address] [id number] [address] [place] [address], [place] [address] Aug, [facility] [address] [id number] [address] [place] [address] Aug, [facility] [address] [id number] [address] [place] [address], [place] [address] Aug, [facility] [address] [id number] [address] [place] [address] Aug, [facility] [address] [id number] [address] [place] [address], [place] [address] Jul, [facility] [address] [id number] [address] [place] [address], [place] [address] Jul, [facility] [address] [id number] [address] [place] [address], [place] [address] Jun, [facility] [address] [id number] [address] [place] [address] 30 Jun, 2013 [facility] [address] [id number] [address] [place] [address], [place] [address] Jun, [facility] [address] [id number] [address] [place] [address], [place] [address] Jun, [facility] [address] [id number] [address] [place] [address], [place] [address] Jun, [facility] [address] [id number] [address] [place] [address], [place] [address] Jun, [facility] [address] [id number] [address] [place] [address], [place] [address] Jun, [facility] [address] [id number] [address] [place] [address], [place] [address] Jun, [facility] [address] [id number] [address] [place] [address], [place] [address] 24 May, 2013 [facility] [address] [id number] [address] [place] [address], [place] [address] 23 May, 2013 [facility] [address] [id number] [address] [place] [address], [place] [address] 18 May, 2013 [facility] [address] [id number] [address] [place] [address], [place] [address] 13 May, 2013 [facility] [address] [id number] [address] [place] [address], [place] [address] 11 May, 2012 [facility] [address] [id number] [address] [place] [address], [place] [address] 06 May, 2012 [facility] [address] [id number] [address] [place] [address], [place] [address] 03 May, 2012 [facility] [address] [id number] [address] [place] [address], [place] [address] 30 Apr, 2013 [facility] [address] [id number] [address] [place] [address], [place] [address] Apr, [facility] [address] [id number] [facility] [place] [address] Apr, [facility] [address] [id number] [address] [place] [address], [place] [address] Apr, [facility] [address] [id number] [address] [place] [address], [place] [address] Apr, [facility] [address] [id number] [address] [place] [address], [place] [address] Apr, [facility] [address] [id number] [address] [place] [address], [place] [address] Apr, [facility] [address] [id number] [address] [place] [address], [place] [address] Mar, [facility] [address] [id number] [address] [place] [address], [place] [address] Mar, [facility] [address] [id number] [address] [place] [address], [place] [address] Mar, [facility] [address] [id number] [address] [place] [address], [place] [address] Mar, [facility] [address] [id number] [address] [place] [address], [place] [address] Mar, [facility] [address] [id number] [address] [place] [address], [place] [address] Mar, [facility] [address] [id number] [address] [place] [address], [place] [address] Mar, [facility] [address] [id number] [address] [place] [address], [place] [address] Mar, [facility] [address] [id number] [address] [place] [address], [place] [address] Feb, [facility] [address] [id number] [address] [place] [address], [place] [address] Feb, [facility] [address] [id number] [address] [place] [address], [place] [address] Feb, [facility] [address] [id number] [address] [place] [address], [place] [address] January, [facility] [address] [id number] [address] [place] [address], [place] [address] January, [facility] [address] [id number] [address] [place] [address], [place] [address] January, [facility] [address] [id number] [address] [place] [address], [place] [address] January, [facility] [address] [id number] [address] [place] [address], [place] [address] January, [facility] [address] [id number] [address] [place] [address], [place] [address] January, [facility] [address] [id number] [address] [place] [address], [place] [address] January, [facility] [address] [id number] [address] [place] [address], [place] [address] January, [facility] [address] [id number] [address] [place] [address], [place] [address] Dec, [facility] [address] [id number] [address] [place] [address], [place] [address] Dec, [facility] [address] [id number] [address] [place] [address], [place] [address] Dec, [facility] [address] [id number] [address] [place] [address], [place] [address] Dec, [facility] [address] [id number] [address] [place] [address], [place] [address] Dec, [facility] [address] [id number] [address] [place] [address], [place] [address] Nov, [facility] [address] [id number] [address] [place] [address], [place] [address] Nov, [facility] [address] [id number] [address] [place] [address], [place] [address] 19 Nov, 2012 [facility] [address] [id number] [address] [place] [address], [place] [address] 18 Nov, 2012 [facility] [address] [id number] [address] [place] [address], [place] [address] 18 Nov, 2012 [facility] [address] [id number] [address] [place] [address], [place] [address] 14 Nov, 2012 [facility] [address] [id number] [address] [place] [address], [place] [address] 11 Nov, 2012 [facility] [address] [id number] [address] [place] [address], [place] [address] 11 Nov, 2012 [facility] [address] [id number] [address] [place] [address], [place] [address] 21 Oct, 2012 [facility] [address] [id number] [address] [place] [address], [place] [address] 21 Oct, 2012 [facility] [address] [id number] [address] [place] [address], [place] [address] 12 Oct, 2012 [facility] [address] [id number] [address] [place] [address], [place] [address] 08 Oct, 2012 [facility] [address] [id number] [address] [place] [address], [place] [address] 07 Oct, 2012 [facility] [address] [id number] [address] [place] [address], [place] [address] 07 Oct, 2012 [facility] [address] [id number] [address] [place] [address], [place] [address] 05 Oct, 2012 [facility] [address] [id number] [address] [place] [address], [place] [address] 04 Oct, 2012 [facility] [address] [id number] [address] [place] [address], [place] [address] 04 Oct, 2012 [facility] [address] [id number] [address] [place] [address], [place] [address] Sep, [facility] [address] [id number] [address] [place] [address], [place] [address] Sep, [facility] [address] [id number] [address] [place] [address], [place] [address] Sep, [facility] [address] [id number] [address] [place] [address], [place] [address] Sep, [facility] [address] [id number] [address] [place] [address], [place] [address] Sep, [facility] [address] [id number] [address] [place] [address], [place] [address] Sep, [facility] [address] [id number] [address] [place] [address], [place] [address] Aug, [facility] [address] [id number] [address] [place] [address], [place] [address] Aug, [facility] [address] [id number] [address] [place] [address], [place] [address] Aug, [facility] [address] [id number] [address] [place] [address], [place] [address] Aug, [facility] [address] [id number] [address] [place] [address], [place] [address] Aug, [facility] [address] [id number] [address] [place] [address], [place] [address] Aug, [facility] [address] [id number] [address] [place] [address], [place] [address] Aug, [facility] [address] [id number] [address] [place] [address], [place] [address] Aug, [facility] [address] [id number] [address] [place] [address], [place] [address] Aug, [facility] [address] [id number] [address] [place] [address], [place] [address] Jul, [facility] [address] [id number] [address] [place] [address] Jul, [facility] [address] [id number] [address] [place] [address] Jul, [facility] [address] [id number] [address] [place] [address] Jul, [facility] [address] [facility] [id number] [address] [place] [address] Nov, [facility] [address] [facility] [id number] [address] [place] [address] Sep, [facility] [address] [facility] [id number] [address] [place] [address] Aug, [facility] [address] [facility] [id number] [address] [place] [address] Aug, [facility] [address] [facility] [id number] [address] [place] [address] Aug, [facility] [address] [facility] [id number] [address] [place] [address] Jul, IMMUNIZATIONS No Known Immunizations SOCIAL HISTORY [...] 05/2005 Surgical History Right Rotator Cuff Repair Alixda 06/2016 Surgical History Colonoscopy Kido (1 Polyp) repeat 5 year s 2019 2014 Surgical History right rotator cuff surgery 06/27/2016 Hospitalization History Overdosed on Clonazepam #35. Osalissethto parvin 03/2014 Hospitalization History Overdosed on Xanax 07/2012 Hospitalization History Hypostension-medication side effect-Via [facility] 03/13/16
--- OUTSIDE RECORDS SUMMARY | 2019-09-11 12:30 | XMS REPORT ---
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 Active 003643583 Problem Abdominal pain R10.9 Active 29433 001 Problem Change in bowel habit R19.4 Active 36984541 Problem Coronary atherosclerosis due to lipid rich plaque I25.83 Active 79481260 Problem Type 2 diabetes 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 E11.8 Active 08374400 Problem Impotence N52.9 Active 873455601 Problem Family history of colon cancer Z80.0 Active 045455897 Problem Diabetic neuropathy, painful E11.40 A ctive 462930599 Problem Arm paresthesia, right R20.2 Active 21448907 Problem Gastroesophageal reflux disease without esophagitis K21.9 Active 465992477 Problem Drug abuse, opioid type F11.10 Active 0858872 Problem COPD exacerbation J44.1 Active 19 1989146 Problem Obstructive sleep apnea syndrome G47.33 Active 94602699 Problem Diverticulitis K57.92 Active 87348 6006 Problem Pain of right upper extremity M79.601 Active 119450494 Problem Respiratory bronchiolitis interstitial lung disease J84.115 Active 111374807 Problem Hypoxia R09.02 Active 969928395 Problem Interstitial lung disease J84.9 Acti ve [id number] ALLERGIES No Information ENCOUNTERS Encounter Location Date Diagnosis [facility] [address] [facility] [id number] [address] [place] [address] Aug, [facility] [address] [facility] [id number] [address] [place] [address] Aug, Diabetic neuropathy, painful E11.40 ; Interstitial lung disease J84.9 ; Chronic cough R05 ; Type 2 diabetes 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 E11.8 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 [facility] [address] [facility] [id number] [address] [place] [address] Jul, [facility] [address] [facility] [id number] [address] [place] [address] Jul, [facility] [address] [place] [id number] [place] [address] Jul, Diabetic neuropathy, painful E11.40 [place] [address] [address] Jul, Type 2 diabetes mellitus wit h complication E11.8 [facility] [address] [place] [id number] [place] [address] Jun, Diabetic neuropathy, painful E11.40 [facility] [address] [address] Jun, [facility] [address] [address] Jun, Type 2 diabetes mellitus wit h complication E11.8 ; Other viral agents as the cause of diseases classified elsewhere B97.89 ; Acute upper respiratory infection, unspecified J06.9 ; Acute recurrent maxillary sinusitis J01.01 ; Sore throat J02.9 and Headache R51 [facility] [id number] [place] [address] Jun, Right lower quadrant abdomin al pain R10.31 and Type 2 diabetes 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 E11.8 [place] [address] [place] [id number] [place] [address] May, Diabetic neuropathy, painful E11.40 [facility] [address] [place] [id number] [address] [place] [address] 06 May, 2017 COPD exacerbation J44.1 and Type 2 diabetes 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 E11.8 [facility] [address] [place] [id number] [address] [place] [address] Apr, Diabetic neuropathy, painful E11.40 [place] [address] [address] Apr, Diabetic neuropathy, painful E11.40 [facility] [place] [address] [address] Mar, Bronchitis J40 [place] [address] [address] January, Type 2 diabetes mellitus wit h complication E11.8 ; Diabetic neuropathy, painful E11.40 ; Impotence N52.9 ; Coronary atherosclerosis due to lipid rich plaque I25.83 ; halfway 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.4 ; Interstitial lung disease J84.9 ; Hypoxia R09.02 ; Essential hypertension I10 ; Gastroesophageal reflux disease without esophagitis K21.9 ; Left upper arm pain M79.622 and Cervical spinal stenosis M48.02 [facility] [place] [address] [address] January, Viral gastroenteritis A08.4 [place] [address] [address] Dec, Diabetic neuropathy, painful E11.40 [place] [address] [place] [id number] [place] [id number] Oct, [place] [address] [address] Oct, Acute right-sided weakness M 62.89 and Slurring of speech R47.81 [place] [address] [address] Sep, Type 2 diabetes mellitus wit h complication E11.8 ; Diabetic neuropathy, painful E11.40 ; Impotence N52.9 ; Coronary atherosclerosis due to lipid rich plaque I25.83 ; halfway 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.4 ; Interstitial lung disease J84.9 ; Hypoxia R09.02 ; Essential hypertension I10 and Gastroesophageal reflux disease without esophagitis K21.9 [facility] [address] [facility] [id number] [address] [place] [address] Sep, Bronchitis J40 [facility] [address] [facility] [id number] [address] [place] [address] Aug, Gastroenteritis and colitis, viral A08.4 [facility] [address] [facility] [id number] [address] [place] [address] Aug, [facility] [address] [facility] [id number] [address] [place] [address] Jun, Type 2 diabetes mellitus wit h complication E11.8 ; Diabetic neuropathy, painful E11.40 ; Impotence N52.9 ; Coronary atherosclerosis due to lipid rich plaque I25.83 ; 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 ; Interstitial lung disease J84.9 ; Hypoxia R09.02 and Essential hypertension I10 [facility] [address] [facility] [id number] [address] [place] [address] 30 May, 2016 Bronchitis J40 [facility] [address] [facility] [id number] [address] [place] [address] 29 May, 2016 [facility] [address] [facility] [id number] [address] [place] [address] May, Pain of right upper extremit y M79.601 [facility] [address] [facility] [id number] [address] [place] [address] May, [facility] [address] [facility] [id number] [address] [place] [address] 15 May, 2016 [facility] [address] [facility] [id number] [address] [place] [address] 07 May, 2016 Right hand pain M79.641 [facility] [address] [facility] [id number] [address] [place] [address] Apr, [facility] [address] [facility] [id number] [address] [place] [address] Apr, [facility] [address] [id number] [address] [place] [address] Mar, [facility] [address] [facility] [id number] [address] [place] [address] Mar, Essential hypertension I10 [facility] [address] [facility] [id number] [address] [place] [address] Feb, [facility] [address] [facility] [id number] [address] [place] [address] Feb, Interstitial lung disease J8 4.9 and Bronchitis J40 [place] [address] [facility] [id number] [address] [place] [address] Feb, [place] [address] [facility] [id number] [address] [place] [address] Feb, Type 2 diabetes mellitus wit h complication E11.8 ; Impotence N52.9 ; Coronary atherosclerosis due to lipid rich plaque I25.83 ; 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 and Diabetic neuropathy, painful E11.40 [place] [address] [facility] [id number] [address] [place] [address] January, [place] [address] [facility] [id number] [address] [place] [address] January, Arm paresthesia, right R20.2 and Pain of right upper extremity M79.601 [place] [address] [facility] [id number] [address] [place] [address] Dec, Lumbar strain S39.012A [place] [address] [facility] [id number] [address] [place] [address] Nov, Diabetic neuropathy, painful E11.40 ; Respiratory bronchiolitis interstitial lung disease J84.115 ; Pain of right upper extremity M79.601 and Arm paresthesia, right R20.2 [place] [address] [facility] [id number] [address] [place] [address] Nov, Diabetic neuropathy, painful E11.[address] [facility] [address] Sep, Type 2 diabetes mellitus wit h complication E11.8 ; Impotence N52.9 ; Coronary atherosclerosis due to lipid rich plaque I25.83 ; halfway 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.4 ; Diabetic neuropathy, painful E11.40 ; Chest pain R07.9 and Restless leg G25.[address] [address] Sep, [address] [address] Jul, COPD (chronic obstructive pu lmonary disease) with acute bronchitis J44.[address] [address] Jun, Abdominal pain R10.9 ; Famil y history of colon cancer Z80.0 and Diverticulitis K57.[address] [address] Jun, Abdominal pain R10.9 and Div erticulitis K57.[address] [address] Apr, Diabetes with other specifie d manifestations, type II or unspecified type, not stated as uncontrolled 250.80 ; Coronary atherosclerosis of unspecified type of vessel, chinik or graft 414.00 ; Unspecified essential hypertension 401.9 ; Impotence of organic origin 607.84 ; Sleep apnea 780.57 and Interstitial lung disease [address] [address] Dec, [address] [address] Dec, [address] [address] Nov, [address] [address] Nov, [facility] [address] [id number] [address] [place] [address], [place] [address] Nov, [facility] [address] [id number] [address] [place] [address], [place] [address] Nov, [facility] [address] [id number] [address] [place] [address], [place] [address] Nov, [facility] [address] [id number] [address] [place] [address], [place] [address] Nov, [facility] [address] [id number] [address] [place] [address], [place] [address] Nov, [facility] [address] [id number] [address] [place] [address], [place] [address] Nov, [facility] [address] [id number] [address] [place] [address], [place] [address] Nov, [facility] [address] [id number] [address] [place] [address], [place] [address] Nov, [facility] [address] [id number] [address] [place] [address], [place] [address] Oct, [facility] [address] [id number] [address] [place] [address], [place] [address] Oct, 2014 [facility] [address] [id number] [address] [place] [address], [place] [address] Oct, 2014 [facility] [address] [id number] [address] [place] [address] Oct, 2014 [facility] [address] [id number] [address] [place] [address], [place] [address] Oct, 2014 [facility] [address] [id number] [address] [place] [address], [place] [address] Oct, 2014 [facility] [address] [id number] [address] [place] [address], [place] [address] Oct, 2014 [facility] [address] [id number] [address] [place] [address], [place] [address] 04 Oct, 2014 [facility] [address] [id number] [address] [place] [address], [place] [address] Oct, 2014 [facility] [address] [id number] [address] [place] [address], [place] [address] Oct, 2014 [facility] [address] [id number] [address] [place] [address], [place] [address] Oct, 2014 [facility] [address] [id number] [address] [place] [address], [place] [address] Jul, [facility] [address] [id number] [address] [place] [address], [place] [address] Jul, [facility] [address] [id number] [address] [place] [address], [place] [address] Jun, [facility] [address] [id number] [address] [place] [address], [place] [address] 29 Jun, 2014 [facility] [address] [id number] [address] [place] [address], [place] [address] Jun, [facility] [address] [id number] [address] [place] [address], [place] [address] 17 Jun, 2014 [facility] [address] [id number] [address] [place] [address], [place] [address] 15 Jun, 2014 [facility] [address] [id number] [address] [place] [address], [place] [address] 15 Jun, 2014 [facility] [address] [id number] [address] [place] [address], [place] [address] 14 Jun, 2014 [facility] [address] [id number] [address] [place] [address], [place] [address] 14 Jun, 2014 [facility] [address] [id number] [address] [place] [address], [place] [address] 13 Jun, 2014 [facility] [address] [id number] [address] [place] [address], [place] [address] Jun, [facility] [address] [id number] [address] [place] [address], [place] [address] 08 Jun, 2014 [facility] [address] [id number] [address] [place] [address], [place] [address] 08 Jun, 2014 [facility] [address] [id number] [address] [place] [address], [place] [address] Jun, [facility] [address] [id number] [address] [place] [address], [place] [address] Jun, [facility] [address] [id number] [address] [place] [address], [place] [address] 30 May, 2014 [facility] [address] [id number] [address] [place] [address], [place] [address] 30 May, 2014 [facility] [address] [id number] [address] [place] [address], [place] [address] May, [facility] [address] [id number] [address] [place] [address], [place] [address] May, [facility] [address] [id number] [address] [place] [address], [place] [address] 05 May, 2014 [facility] [address] [id number] [address] [place] [address], [place] [address] 05 May, 2014 [facility] [address] [id number] [address] [place] [address], [place] [address] Apr, [facility] [address] [id number] [address] [place] [address], [place] [address] Apr, [facility] [address] [id number] [address] [place] [address], [place] [address] Apr, [facility] [address] [id number] [address] [place] [address], [place] [address] Apr, [facility] [address] [id number] [address] [place] [address], [place] [address] Apr, [facility] [address] [id number] [address] [place] [address], [place] [address] Apr, [facility] [address] [id number] [facility] [place] [address] Apr, [facility] [address] [id number] [facility] [place] [address] Apr, [facility] [address] [id number] [facility] [place] [address] Apr, [facility] [address] [id number] [address] [place] [address], [place] [address] Apr, [facility] [address] [id number] [address] [place] [address], [place] [address] Apr, [facility] [address] [id number] [address] [place] [address], [place] [address] Apr, [facility] [address] [id number] [address] [place] [address], [place] [address] Mar, [facility] [address] [id number] [address] [place] [address], [place] [address] Mar, [facility] [address] [id number] [address] [place] [address], [place] [address] Mar, [facility] [address] [id number] [address] [place] [address], [place] [address] Mar, [facility] [address] [id number] [address] [place] [address], [place] [address] Mar, [facility] [address] [id number] [address] [place] [address], [place] [address] Mar, [facility] [address] [id number] [address] [place] [address], [place] [address] Mar, [facility] [address] [id number] [address] [place] [address], [place] [address] Mar, [facility] [address] [id number] [address] [place] [address], [place] [address] Mar, [facility] [address] [id number] [facility] [place] [address] Mar, [facility] [address] [id number] [facility] [place] [address] Mar, [facility] [address] [id number] [facility] [place] [address] Feb, [facility] [address] [id number] [facility] [place] [address] Feb, [facility] [address] [id number] [address] [place] [address], [place] [address] Feb, [facility] [address] [id number] [address] [place] [address], [place] [address] Feb, [facility] [address] [id number] [address] [place] [address], [place] [address] Feb, [facility] [address] [id number] [address] [place] [address], [place] [address] Feb, [facility] [address] [id number] [address] [place] [address], [place] [address] Feb, [facility] [address] [id number] [address] [place] [address], [place] [address] Feb, [facility] [address] [id number] [address] [place] [address], [place] [address] Feb, [facility] [address] [id number] [address] [place] [address], [place] [address] Feb, [facility] [address] [id number] [address] [place] [address], [place] [address] January, [facility] [address] [id number] [address] [place] [address], [place] [address] January, [facility] [address] [id number] [address] [place] [address], [place] [address] January, [facility] [address] [id number] [address] [place] [address], [place] [address] January, [facility] [address] [id number] [facility] [place] [address] January, [facility] [address] [id number] [address] [place] [address], [place] [address] January, [facility] [address] [id number] [address] [place] [address], [place] [address] January, [facility] [address] [id number] [address] [place] [address], [place] [address] January, [facility] [address] [id number] [address] [place] [address], [place] [address] January, [facility] [address] [id number] [address] [place] [address], [place] [address] January, [facility] [address] [id number] [address] [place] [address], [place] [address] January, [facility] [address] [id number] [address] [place] [address], [place] [address] January, [facility] [address] [id number] [address] [place] [address], [place] [address] January, [facility] [address] [id number] [address] [place] [address], [place] [address] January, [facility] [address] [id number] [address] [place] [address], [place] [address] January, [facility] [address] [id number] [address] [place] [address], [place] [address] January, [facility] [address] [id number] [address] [place] [address], [place] [address] Dec, [facility] [address] [id number] [address] [place] [address], [place] [address] Dec, [facility] [address] [id number] [address] [place] [address], [place] [address] Dec, [facility] [address] [id number] [address] [place] [address], [place] [address] 17 Dec, 2013 [facility] [address] [id number] [address] [place] [address], [place] [address] Dec, [facility] [address] [id number] [address] [place] [address], [place] [address] Dec, [facility] [address] [id number] [address] [place] [address], [place] [address] Dec, [facility] [address] [id number] [address] [place] [address], [place] [address] Dec, [facility] [address] [id number] [address] [place] [address], [place] [address] Dec, [facility] [address] [id number] [address] [place] [address], [place] [address] Dec, [facility] [address] [id number] [address] [place] [address], [place] [address] Nov, [facility] [address] [id number] [address] [place] [address], [place] [address] Nov, [facility] [address] [id number] [address] [place] [address], [place] [address] Oct, [facility] [address] [id number] [address] [place] [address], [place] [address] Oct, [facility] [address] [id number] [address] [place] [address], [place] [address] Oct, [facility] [address] [id number] [address] [place] [address], [place] [address] Sep, [facility] [address] [id number] [address] [place] [address], [place] [address] Sep, [facility] [address] [id number] [address] [place] [address], [place] [address] Sep, [facility] [address] [id number] [address] [place] [address], [place] [address] Sep, [facility] [address] [id number] [address] [place] [address], [place] [address] Sep, [facility] [address] [id number] [address] [place] [address], [place] [address] Sep, [facility] [address] [id number] [address] [place] [address], [place] [address] Sep, [facility] [address] [id number] [address] [place] [address], [place] [address] Sep, [facility] [address] [id number] [address] [place] [address], [place] [address] Sep, [facility] [address] [id number] [address] [place] [address], [place] [address] Sep, [facility] [address] [id number] [address] [place] [address], [place] [address] Sep, [facility] [address] [id number] [address] [place] [address], [place] [address] Sep, [facility] [address] [id number] [address] [place] [address], [place] [address] Aug, [facility] [address] [id number] [address] [place] [address], [place] [address] Aug, [facility] [address] [id number] [address] [place] [address], [place] [address] Aug, [facility] [address] [id number] [address] [place] [address], [place] [address] Aug, [facility] [address] [id number] [address] [place] [address], [place] [address] Jul, [facility] [address] [id number] [address] [place] [address], [place] [address] Jul, [facility] [address] [id number] [address] [place] [address], [place] [address] Jun, [facility] [address] [id number] [address] [place] [address] [place] [address] 30 Jun, 2013 [facility] [address] [id number] [address] [place] [address], [place] [address] Jun, [facility] [address] [id number] [address] [place] [address], [place] [address] Jun, [facility] [address] [id number] [address] [place] [address], [place] [address] Jun, [facility] [address] [id number] [address] [place] [address], [place] [address] Jun, [facility] [address] [id number] [address] [place] [address], [place] [address] Jun, [facility] [address] [id number] [address] [place] [address], [place] [address] Jun, [facility] [address] [id number] [address] [place] [address], [place] [address] 24 May, 2012 [facility] [address] [id number] [address] [place] [address], [place] [address] 23 May, 2012 [facility] [address] [id number] [address] [place] [address], [place] [address] 18 May, 2012 [facility] [address] [id number] [address] [place] [address], [place] [address] 13 May, 2012 [facility] [address] [id number] [address] [place] [address], [place] [address] 11 May, 2012 [facility] [address] [id number] [address] [place] [address], [place] [address] 06 May, 2012 [facility] [address] [id number] [address] [place] [address], [place] [address] 03 May, 2012 [facility] [address] [id number] [address] [place] [address], [place] [address] 30 Apr, 2013 [facility] [address] [id number] [address] [place] [address], [place] [address] 22 Apr, 2013 [facility] [address] [id number] [address] [place] [address], [place] [address] Apr, [facility] [address] [id number] [address] [place] [address], [place] [address] Apr, [facility] [address] [id number] [address] [place] [address], [place] [address] Apr, [facility] [address] [id number] [address] [place] [address], [place] [address] Apr, [facility] [address] [id number] [address] [place] [address], [place] [address] Apr, [facility] [address] [id number] [address] [place] [address], [place] [address] Mar, [facility] [address] [id number] [address] [place] [address], [place] [address] Mar, [facility] [address] [id number] [address] [place] [address], [place] [address] Mar, [facility] [address] [id number] [address] [place] [address], [place] [address] Mar, [facility] [address] [id number] [address] [place] [address], [place] [address] Mar, [facility] [address] [id number] [address] [place] [address], [place] [address] Mar, [facility] [address] [id number] [address] [place] [address], [place] [address] Mar, [facility] [address] [id number] [address] [place] [address], [place] [address] Mar, [facility] [address] [id number] [address] [place] [address], [place] [address] Feb, [facility] [address] [id number] [address] [place] [address], [place] [address] Feb, [facility] [address] [id number] [address] [place] [address], [place] [address] Feb, [facility] [address] [id number] [address] [place] [address], [place] [address] January, [facility] [address] [id number] [address] [place] [address], [place] [address] January, [facility] [address] [id number] [address] [place] [address], [place] [address] January, [facility] [address] [id number] [address] [place] [address], [place] [address] January, [facility] [address] [id number] [address] [place] [address], [place] [address] January, [facility] [address] [id number] [address] [place] [address], [place] [address] January, [facility] [address] [id number] [address] [place] [address], [place] [address] January, [facility] [address] [id number] [address] [place] [address], [place] [address] January, [facility] [address] [id number] [address] [place] [address], [place] [address] Dec, [facility] [address] [id number] [address] [place] [address], [place] [address] Dec, [facility] [address] [id number] [address] [place] [address], [place] [address] Dec, [facility] [address] [id number] [address] [place] [address], [place] [address] Dec, [facility] [address] [id number] [address] [place] [address], [place] [address] Dec, [facility] [address] [id number] [address] [place] [address], [place] [address] Nov, [facility] [address] [id number] [address] [place] [address], [place] [address] Nov, [facility] [address] [id number] [address] [place] [address], [place] [address] 19 Nov, 2012 [facility] [address] [id number] [address] [place] [address], [place] [address] 18 Nov, 2012 [facility] [address] [id number] [address] [place] [address], [place] [address] 18 Nov, 2012 [facility] [address] [id number] [address] [place] [address], [place] [address] 14 Nov, 2012 [facility] [address] [id number] [address] [place] [address], [place] [address] 11 Nov, 2012 [facility] [address] [id number] [address] [place] [address], [place] [address] 11 Nov, 2012 [facility] [address] [id number] [address] [place] [address], [place] [address] 21 Oct, 2012 [facility] [address] [id number] [address] [place] [address], [place] [address] 21 Oct, 2012 [facility] [address] [id number] [address] [place] [address], [place] [address] 12 Oct, 2012 [facility] [address] [id number] [address] [place] [address], [place] [address] 08 Oct, 2012 [facility] [address] [id number] [address] [place] [address], [place] [address] 07 Oct, 2012 [facility] [address] [id number] [address] [place] [address], [place] [address] 07 Oct, 2012 [facility] [address] [id number] [address] [place] [address], [place] [address] 05 Oct, 2012 [facility] [address] [id number] [address] [place] [address], [place] [address] 04 Oct, 2012 [facility] [address] [id number] [address] [place] [address], [place] [address] 04 Oct, 2012 [facility] [address] [id number] [address] [place] [address], [place] [address] Sep, [facility] [address] [id number] [address] [place] [address], [place] [address] Sep, [facility] [address] [id number] [address] [place] [address], [place] [address] Sep, [facility] [address] [id number] [address] [place] [address], [place] [address] Sep, [facility] [address] [id number] [address] [place] [address], [place] [address] Sep, [facility] [address] [id number] [address] [place] [address], [place] [address] Sep, [facility] [address] [id number] [address] [place] [address], [place] [address] Aug, [facility] [address] [id number] [address] [place] [address], [place] [address] Aug, [facility] [address] [id number] [address] [place] [address], [place] [address] Aug, [facility] [address] [id number] [address] [place] [address], [place] [address] Aug, [facility] [address] [id number] [address] [place] [address], [place] [address] Aug, [facility] [address] [id number] [address] [place] [address], [place] [address] 18 Aug, 2012 [facility] [address] [id number] [address] [place] [address], [place] [address] 13 Aug, 2012 [facility] [address] [id number] [address] [place] [address], [place] [address] Aug, [facility] [address] [id number] [address] [place] [address], [place] [address] Aug, [facility] [address] [id number] [address] [place] [address], [place] [address] Jul, [facility] [address] [id number] [address] [place] [address] Jul, [facility] [address] [id number] [address] [place] [address] Jul, [facility] [address] [id number] [address] [place] [address] Jul, [facility] [address] [facility] [id number] [address] [place] [address] Nov, [facility] [address] [facility] [id number] [address] [place] [address] Sep, [facility] [address] [facility] [id number] [address] [place] [address] Aug, [facility] [address] [facility] [id number] [address] [place] [address] Aug, [facility] [address] [facility] [id number] [address] [place] [address] Aug, [facility] [address] [facility] [id number] [address] [place] [address] Jul, IMMUNIZATIONS No Known Immunizations SOCIAL HISTORY [...] Surgical History Right Rotator Cuff Repair [facility] 06/2016 Surgical History Colonoscopy Kido (1 Polyp) repeat 5 year s 2019 2014 Surgical History right rotator cuff surgery 06/27/2016 Hospitalization History Overdosed on Clonazepam #35. Lori parvin 03/2014 Hospitalization History Overdosed on Xanax 07/2012 Hospitalization History Hypostension-medication side effect-[facility] 03/13/16
--- OUTSIDE RECORDS SUMMARY | 2019-09-11 12:30 | XMS REPORT ---
Author Author ASH Miguel CHANELL Organization 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 Name Role Phone CHANELL ALEMAN Unavailable PROBLEMS Type Condition ICD9-CM Code [id number] Code Onset Dates Condition S tatus SNOMED Code Problem Neuropathy G62.9 Active 991669612 Problem Essential hypertension I10 Active 16382095 Problem alf 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.4 Active 222799261 Problem Abdominal pain R10.9 Active 39854 001 Problem Change in bowel habit R19.4 Active 73947621 Problem Coronary atherosclerosis due to lipid rich plaque I25.83 Active 53871949 Problem Type 2 diabetes 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 E11.8 Active 78127318 Problem Impotence N52.9 Active 730197182 Problem Family history of colon cancer Z80.0 Active 643460039 Problem Diabetic neuropathy, painful E11.40 A ctive 040087711 Problem Arm paresthesia, right R20.2 Active 83203337 Problem Gastroesophageal reflux disease without esophagitis K21.9 Active 990403318 Problem Drug abuse, opioid type F11.10 Active 4258318 Problem COPD exacerbation J44.1 Active 19 9874454 Problem Obstructive sleep apnea syndrome G47.33 Active 50612074 Problem Diverticulitis K57.92 Active 35946 6006 Problem Pain of right upper extremity M79.601 Active 465462578 Problem Respiratory bronchiolitis interstitial lung disease J84.115 Active 661073069 Problem Hypoxia R09.02 Active 328863341 Problem Interstitial lung disease J84.9 Acti ve [id number] ALLERGIES No Information ENCOUNTERS Encounter Location Date Diagnosis [facility] [address] [facility] [id number] [address] [place] [address] Aug, [facility] [address] [facility] [id number] [address] [place] [address] Aug, Diabetic neuropathy, painful E11.40 ; Interstitial lung disease J84.9 ; Chronic cough R05 ; Type 2 diabetes 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 E11.8 and community outreach coordinator 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.4 [facility] [address] [facility] [id number] [address] [place] [address] Jul, [facility] [address] [place] [id number] [address] [place] [address] Jul, [facility] [address] [facility] [id number] [address] [place] [address] Jul, Diabetic neuropathy, painful E11.40 [facility] [address] [facility] [id number] [address] [place] [address] Jul, Type 2 diabetes mellitus wit h complication E11.8 [facility] [address] [place] [id number] [address] [place] [address] Jun, Diabetic neuropathy, painful E11.40 [facility] [address] [place] [id number] [address] [place] [address] Jun, [facility] [address] [place] [id number] [address] [place] [address] Jun, Type 2 diabetes mellitus wit h complication E11.8 ; Other viral agents as the cause of diseases classified elsewhere B97.89 ; Acute upper respiratory infection, unspecified J06.9 ; Acute recurrent maxillary sinusitis J01.01 ; Sore throat J02.[address] [facility] [address] [place] [id number] [address] [place] [address] Jun, Right lower quadrant abdomin al pain R10.31 and Type 2 diabetes 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 E11.8 [place] [address] [place] [id number] [address] [place] [address] May, Diabetic neuropathy, painful E11.40 [facility] [address] [place] [id number] [address] [place] [address] May, COPD exacerbation J44.1 and Type 2 diabetes 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 E11.8 [facility] [address] [place] [address] [address] Apr, Diabetic neuropathy, painful E11.40 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.4 ; Interstitial lung disease J84.9 ; Hypoxia R09.02 ; Essential hypertension I10 ; Gastroesophageal reflux disease without esophagitis K21.9 ; Left upper arm pain M79.622 and Cervical spinal stenosis M48.02 [facility] [address] [address] January, Viral gastroenteritis A08.4 [place] [address] [address] Dec, Diabetic neuropathy, painful E11.40 [facility] [address] [place] [id number] [place] [id number] Oct, [place] [address] [address] Oct, Acute right-sided weakness M 62.89 and Slurring of speech R47.81 [place] [address] [place] [id number] [address] [place] [address] Sep, Type 2 diabetes mellitus wit h complication E11.8 ; Diabetic neuropathy, painful E11.40 ; Impotence N52.9 ; Coronary atherosclerosis due to lipid rich plaque I25.83 ; alf 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.4 ; Interstitial lung disease J84.9 ; Hypoxia R09.02 ; Essential hypertension I10 and Gastroesophageal reflux disease without esophagitis K21.9 [facility] [address] [facility] [id number] [address] [place] [address] Sep, Bronchitis J40 [facility] [address] [facility] [id number] [address] [place] [address] Aug, Gastroenteritis and colitis, viral A08.4 [facility] [address] [facility] [id number] [address] [place] [address] Aug, [facility] [address] [facility] [id number] [address] [place] [address] Jun, Type 2 diabetes mellitus wit h complication E11.8 ; Diabetic neuropathy, painful E11.40 ; Impotence N52.9 ; Coronary atherosclerosis due to lipid rich plaque I25.83 ; alf 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.4 ; Interstitial lung disease J84.9 ; Hypoxia R09.02 and Essential hypertension I10 [facility] [address] [place] [id number] [address] [place] [address] 30 May, [address] [facility] [address] [facility] [id number] [address] [place] [address] [address], [address] [facility] [address] [facility] [id number] [address] [place] [address] May, Pain of right upper extremit y M79.601 [facility] [address] [facility] [id number] [address] [place] [address] May, [facility] [address] [facility] [id number] [address] [place] [address] 15 May, 2016 [facility] [address] [facility] [id number] [address] [place] [address] 07 May, 2016 Right hand pain M79.641 [facility] [address] [facility] [id number] [address] [place] [address] Apr, [facility] [address] [facility] [id number] [address] [place] [address] Apr, [place] [address] [id number] [address] [place] [address] Mar, [facility] [address] [facility] [id number] [address] [place] [address] Mar, Essential hypertension I10 [facility] [address] [facility] [id number] [address] [place] [address] Feb, [facility] [address] [facility] [id number] [address] [place] [address] Feb, Interstitial lung disease J8 4.[address] [facility] [address] [facility] [id number] [address] [place] [address] Feb, [place] [address] [facility] [id number] [address] [place] [address] Feb, Type 2 diabetes mellitus wit h complication E11.8 ; Impotence N52.9 ; Coronary atherosclerosis due to lipid rich plaque I25.83 ; community outreach coordinator 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.4 and Diabetic neuropathy, painful E11.40 [facility] [address] [facility] [id number] [address] [place] [address] January, [place] [address] [facility] [id number] [address] [place] [address] January, Arm paresthesia, right R20.2 and Pain of right upper extremity M79.601 [place] [address] [facility] [id number] [address] [place] [address] Dec, Lumbar strain S39.012A [facility] [address] [facility] [id number] [address] [place] [address] Nov, Diabetic neuropathy, painful E11.40 ; Respiratory bronchiolitis interstitial lung disease J84.115 ; Pain of right upper extremity M79.601 and Arm paresthesia, right R20.2 [facility] [address] [facility] [id number] [address] [place] [address] Nov, Diabetic neuropathy, painful E11.40 [place] [address] [address] Sep, Type 2 diabetes mellitus wit h complication E11.8 ; Impotence N52.9 ; Coronary atherosclerosis due to lipid rich plaque I25.83 ; community outreach coordinator 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.4 ; Diabetic neuropathy, painful E11.40 ; Chest pain R07.9 and Restless leg G25.[address] [address] Sep, [address] [address] Jul, COPD (chronic obstructive pu lmonary disease) with acute bronchitis J44.[address] [address] Jun, Abdominal pain R10.9 ; Famil y history of colon cancer Z80.0 and Diverticulitis K57.[address] [address] Jun, Abdominal pain R10.9 and Div erticulitis K57.[address] [address] Apr, Diabetes with other specifie d manifestations, type II or unspecified type, not stated as uncontrolled 250.80 ; Coronary atherosclerosis of unspecified type of vessel, [place] or graft 414.00 ; Unspecified essential hypertension 401.9 ; Impotence of organic origin 607.84 ; Sleep apnea 780.57 and Interstitial lung disease [address] [place] [address] [address] Dec, [address] [address] Dec, [place] [address] [address] Nov, [address] [address] Nov, [facility] [place] [facility] [address] [id number] [address] [place] [address], [place] [address] 23 Nov, 2014 [facility] [place] [facility] [address] [id number] [address] [place] [address], [place] [address] 23 Nov, 2014 [facility] [place] [facility] [address] [id number] [address] [place] [address], [place] [address] 20 Nov, 2014 [facility] [place] [facility] [address] [id number] [address] [place] [address], [place] [address] 20 Nov, 2014 [facility] [place] [facility] [address] [id number] [address] [place] [address], [place] [address] 20 Nov, 2014 [facility] [place] [facility] [address] [id number] [address] [place] [address], [place] [address] Nov, [facility] [place] [facility] [address] [id number] [address] [place] [address], [place] [address] Nov, [facility] [place] [facility] [address] [id number] [address] [place] [address], [place] [address] Nov, [facility] [place] [facility] [address] [id number] [address] [place] [address], [place] [address] Oct, 2014 [facility] [place] [facility] [address] [id number] [address] [place] [address], [place] [address] Oct, 2014 [facility] [place] [facility] [address] [id number] [address] [place] [address], [place] [address] Oct, 2014 [facility] [place] [facility] [address] [id number] [address] [place] [address], [place] [address] Oct, 2014 [facility] [place] [facility] [address] [id number] [address] [place] [address], [place] [address] Oct, 2014 [facility] [place] [facility] [address] [id number] [address] [place] [address], [place] [address] Oct, 2014 [facility] [place] [facility] [address] [id number] [address] [place] [address], [place] [address] Oct, 2014 [facility] [place] [facility] [address] [id number] [address] [place] [address], [place] [address] 04 Oct, 2014 [facility] [address] [id number] [address] [place] [address], [place] [address] Oct, 2014 [facility] [address] [id number] [address] [place] [address], [place] [address] Oct, 2014 [facility] [address] [id number] [address] [place] [address], [place] [address] Oct, 2014 [facility] [address] [id number] [address] [place] [address], [place] [address] Jul, [facility] [address] [id number] [address] [place] [address], [place] [address] Jul, [facility] [address] [id number] [address] [place] [address], [place] [address] Jun, [facility] [address] [id number] [address] [place] [address], [place] [address] 29 Jun, 2014 [facility] [address] [id number] [address] [place] [address], [place] [address] 17 Jun, 2014 [facility] [address] [id number] [address] [place] [address], [place] [address] 17 Jun, 2014 [facility] [address] [id number] [address] [place] [address], [place] [address] 15 Jun, 2014 [facility] [place] [facility] [address] [id number] [address] [place] [address], [place] [address] 15 Jun, 2014 [facility] [address] [id number] [address] [place] [address], [place] [address] 14 Jun, 2014 [facility] [place] [facility] [address] [id number] [address] [place] [address], [place] [address] 14 Jun, 2014 [facility] [place] [facility] [address] [id number] [address] [place] [address], [place] [address] 13 Jun, 2014 [facility] [place] [facility] [address] [id number] [address] [place] [address], [place] [address] 13 Jun, 2014 [facility] [place] [facility] [address] [id number] [address] [place] [address], [place] [address] 08 Jun, 2014 [facility] [place] [facility] [address] [id number] [address] [place] [address], [place] [address] 08 Jun, 2014 [facility] [place] [facility] [address] [id number] [address] [place] [address], [place] [address] Jun, [facility] [place] [facility] [address] [id number] [address] [place] [address], [place] [address] Jun, [facility] [address] [id number] [address] [place] [address], [place] [address] 30 May, 2014 [facility] [place] [facility] [address] [id number] [address] [place] [address], [place] [address] 30 May, 2013 [facility] [address] [id number] [address] [place] [address], [place] [address] May, 2013 [facility] [place] [facility] [address] [id number] [address] [place] [address], [place] [address] May, 2013 [facility] [place] [facility] [address] [id number] [address] [place] [address], [place] [address] May, [facility] [place] [facility] [address] [id number] [address] [place] [address], [place] [address] 05 May, 2014 [facility] [place] [facility] [address] [id number] [address] [place] [address], [place] [address] Apr, [facility] [place] [facility] [address] [id number] [address] [place] [address], [place] [address] Apr, [facility] [place] [facility] [address] [id number] [address] [place] [address], [place] [address] Apr, [facility] [place] [facility] [address] [id number] [address] [place] [address], [place] [address] Apr, [facility] [place] [facility] [address] [id number] [address] [place] [address], [place] [address] Apr, [facility] [place] [facility] [address] [id number] [address] [place] [address], [place] [address] Apr, [facility] [address] [id number] [address] [place] [address], [place] [address] Apr, [facility] [place] [facility] [address] [id number] [address] [place] [address], [place] [address] Apr, [facility] [address] [id number] [address] [place] [address], [place] [address] Apr, [facility] [place] [facility] [address] [id number] [address] [place] [address], [place] [address] Apr, [facility] [address] [id number] [address] [place] [address], [place] [address] Apr, [facility] [address] [id number] [address] [place] [address], [place] [address] Apr, [facility] [address] [id number] [address] [place] [address], [place] [address] Mar, [facility] [address] [id number] [address] [place] [address], [place] [address] Mar, [facility] [address] [id number] [address] [place] [address], [place] [address] Mar, [facility] [address] [id number] [address] [place] [address], [place] [address] Mar, [facility] [place] [facility] [address] [id number] [address] [place] [address], [place] [address] Mar, [facility] [place] [facility] [address] [id number] [address] [place] [address], [place] [address] Mar, [facility] [place] [facility] [address] [id number] [address] [place] [address], [place] [address] Mar, [facility] [place] [facility] [address] [id number] [address] [place] [address], [place] [address] Mar, [facility] [place] [facility] [address] [id number] [address] [place] [address], [place] [address] Mar, [facility] [place] [facility] [address] [id number] [facility] [place] [address] Mar, [facility] [place] [facility] [address] [id number] [facility] [place] [address] Mar, [facility] [place] [facility] [address] [id number] [facility] [place] [address] Feb, [facility] [place] [facility] [address] [id number] [facility] [place] [address] Feb, [facility] [place] [facility] [address] [id number] [facility] [place] [address] Feb, [facility] [place] [facility] [address] [id number] [address] [place] [address], [place] [address] Feb, [facility] [place] [facility] [address] [id number] [address] [place] [address], [place] [address] Feb, [facility] [place] [facility] [address] [id number] [address] [place] [address], [place] [address] Feb, [facility] [address] [id number] [address] [place] [address], [place] [address] Feb, [facility] [place] [facility] [address] [id number] [address] [place] [address], [place] [address] Feb, [facility] [place] [facility] [address] [id number] [address] [place] [address], [place] [address] Feb, [facility] [place] [facility] [address] [id number] [address] [place] [address], [place] [address] Feb, [facility] [place] [facility] [address] [id number] [address] [place] [address], [place] [address] January, [facility] [place] [facility] [address] [id number] [address] [place] [address], [place] [address] January, [facility] [place] [facility] [address] [id number] [address] [place] [address], [place] [address] January, [facility] [place] [facility] [address] [id number] [address] [place] [address], [place] [address] January, [facility] [address] [id number] [facility] [place] [address] January, [facility] [address] [id number] [address] [place] [address], [place] [address] January, [facility] [address] [id number] [address] [place] [address], [place] [address] January, [facility] [address] [id number] [address] [place] [address], [place] [address] January, [facility] [address] [id number] [address] [place] [address], [place] [address] January, [facility] [address] [id number] [address] [place] [address], [place] [address] January, [facility] [address] [id number] [address] [place] [address], [place] [address] January, [facility] [address] [id number] [address] [place] [address], [place] [address] January, [facility] [address] [id number] [address] [place] [address], [place] [address] January, [facility] [address] [id number] [address] [place] [address], [place] [address] January, [facility] [address] [id number] [address] [place] [address], [place] [address] January, [facility] [address] [id number] [address] [place] [address], [place] [address] January, [facility] [address] [id number] [address] [place] [address], [place] [address] Dec, [facility] [address] [id number] [address] [place] [address], [place] [address] Dec, [facility] [address] [id number] [address] [place] [address], [place] [address] Dec, [facility] [address] [id number] [address] [place] [address], [place] [address] 17 Dec, 2013 [facility] [address] [id number] [address] [place] [address], [place] [address] Dec, [facility] [address] [id number] [address] [place] [address], [place] [address] Dec, [facility] [address] [id number] [address] [place] [address], [place] [address] Dec, [facility] [address] [id number] [address] [place] [address], [place] [address] Dec, [facility] [address] [id number] [address] [place] [address], [place] [address] Dec, [facility] [address] [id number] [address] [place] [address], [place] [address] Dec, [facility] [address] [id number] [address] [place] [address], [place] [address] Nov, [facility] [address] [id number] [address] [place] [address], [place] [address] Nov, [facility] [address] [id number] [address] [place] [address], [place] [address] Oct, [facility] [address] [id number] [address] [place] [address], [place] [address] Oct, [facility] [address] [id number] [address] [place] [address], [place] [address] Oct, [facility] [address] [id number] [address] [place] [address], [place] [address] Sep, [facility] [address] [id number] [address] [place] [address], [place] [address] Sep, [facility] [address] [id number] [address] [place] [address], [place] [address] Sep, [facility] [address] [id number] [address] [place] [address], [place] [address] Sep, [facility] [address] [id number] [address] [place] [address], [place] [address] Sep, [facility] [address] [id number] [address] [place] [address], [place] [address] Sep, [facility] [address] [id number] [address] [place] [address], [place] [address] Sep, [facility] [address] [id number] [address] [place] [address], [place] [address] Sep, [facility] [address] [id number] [address] [place] [address], [place] [address] Sep, [facility] [address] [id number] [address] [place] [address], [place] [address] Sep, [facility] [address] [id number] [address] [place] [address], [place] [address] Sep, [facility] [address] [id number] [address] [place] [address], [place] [address] Sep, [facility] [address] [id number] [address] [place] [address], [place] [address] Aug, [facility] [address] [id number] [address] [place] [address], [place] [address] Aug, [facility] [address] [id number] [address] [place] [address], [place] [address] Aug, [facility] [address] [id number] [address] [place] [address], [place] [address] Aug, [facility] [address] [id number] [address] [place] [address], [place] [address] Jul, [facility] [address] [id number] [address] [place] [address], [place] [address] Jul, [facility] [address] [id number] [address] [place] [address], [place] [address] Jun, [facility] [address] [id number] [address] [place] [address] Jun, [facility] [address] [id number] [address] [place] [address], [place] [address] Jun, [facility] [address] [id number] [address] [place] [address], [place] [address] Jun, [facility] [address] [id number] [address] [place] [address], [place] [address] Jun, [facility] [address] [id number] [address] [place] [address] Jun, [facility] [address] [id number] [address] [place] [address], [place] [address] Jun, [facility] [address] [id number] [address] [place] [address], [place] [address] Jun, [facility] [address] [id number] [address] [place] [address], [place] [address] 24 May, 2013 [facility] [address] [id number] [address] [place] [address], [place] [address] 23 May, 2013 [facility] [address] [id number] [address] [place] [address], [place] [address] 18 May, 2013 [facility] [address] [id number] [address] [place] [address], [place] [address] 13 May, 2013 [facility] [address] [id number] [address] [place] [address], [place] [address] 11 May, 2012 [facility] [address] [id number] [address] [place] [address] 06 May, 2012 [facility] [address] [id number] [address] [place] [address], [place] [address] 03 May, 2012 [facility] [address] [id number] [address] [place] [address], [place] [address] 30 Apr, 2013 [facility] [address] [id number] [address] [place] [address], [place] [address] Apr, [facility] [address] [id number] [address] [place] [address], [place] [address] Apr, [facility] [address] [id number] [address] [place] [address], [place] [address] Apr, [facility] [address] [id number] [address] [place] [address], [place] [address] Apr, [facility] [address] [id number] [address] [place] [address], [place] [address] Apr, [facility] [address] [id number] [address] [place] [address], [place] [address] Apr, [facility] [address] [id number] [address] [place] [address], [place] [address] Mar, [facility] [address] [id number] [address] [place] [address], [place] [address] Mar, [facility] [address] [id number] [address] [place] [address], [place] [address] Mar, [facility] [address] [id number] [address] [place] [address], [place] [address] Mar, [facility] [address] [id number] [address] [place] [address], [place] [address] Mar, [facility] [address] [id number] [address] [place] [address], [place] [address] Mar, [facility] [address] [id number] [address] [place] [address], [place] [address] Mar, [facility] [address] [id number] [address] [place] [address], [place] [address] Mar, [facility] [address] [id number] [address] [place] [address], [place] [address] Feb, [facility] [address] [id number] [address] [place] [address], [place] [address] Feb, [facility] [address] [id number] [address] [place] [address], [place] [address] Feb, [facility] [address] [id number] [address] [place] [address], [place] [address] January, [facility] [address] [id number] [address] [place] [address], [place] [address] January, [facility] [address] [id number] [address] [place] [address], [place] [address] January, [facility] [address] [id number] [address] [place] [address], [place] [address] January, [facility] [address] [id number] [address] [place] [address], [place] [address] January, [facility] [address] [id number] [address] [place] [address], [place] [address] January, [facility] [address] [id number] [address] [place] [address], [place] [address] January, [facility] [address] [id number] [address] [place] [address], [place] [address] January, [facility] [address] [id number] [address] [place] [address], [place] [address] Dec, [facility] [address] [id number] [address] [place] [address], [place] [address] Dec, [facility] [address] [id number] [address] [place] [address], [place] [address] Dec, [facility] [address] [id number] [address] [place] [address], [place] [address] Dec, [facility] [address] [id number] [address] [place] [address], [place] [address] Dec, [facility] [address] [id number] [address] [place] [address], [place] [address] Nov, [facility] [address] [id number] [address] [place] [address], [place] [address] Nov, [facility] [address] [id number] [address] [place] [address], [place] [address] 19 Nov, 2012 [facility] [address] [id number] [address] [place] [address], [place] [address] 18 Nov, 2012 [facility] [address] [id number] [address] [place] [address], [place] [address] 18 Nov, 2012 [facility] [address] [id number] [address] [place] [address], [place] [address] 14 Nov, 2012 [facility] [address] [id number] [address] [place] [address], [place] [address] 11 Nov, 2012 [facility] [address] [id number] [address] [place] [address], [place] [address] 11 Nov, 2012 [facility] [address] [id number] [address] [place] [address], [place] [address] 21 Oct, 2012 [facility] [address] [id number] [address] [place] [address], [place] [address] 21 Oct, 2012 [facility] [address] [id number] [address] [place] [address], [place] [address] 12 Oct, 2012 [facility] [address] [id number] [address] [place] [address], [place] [address] 08 Oct, 2012 [facility] [address] [id number] [address] [place] [address], [place] [address] 07 Oct, 2012 [facility] [address] [id number] [address] [place] [address], [place] [address] 07 Oct, 2012 [facility] [address] [id number] [address] [place] [address], [place] [address] 05 Oct, 2012 [facility] [address] [id number] [address] [place] [address], [place] [address] 04 Oct, 2012 [facility] [address] [id number] [address] [place] [address], [place] [address] 04 Oct, 2012 [facility] [address] [id number] [address] [place] [address], [place] [address] Sep, [facility] [address] [id number] [address] [place] [address], [place] [address] Sep, [facility] [address] [id number] [address] [place] [address], [place] [address] Sep, [facility] [address] [id number] [address] [place] [address], [place] [address] Sep, [facility] [address] [id number] [address] [place] [address], [place] [address] Sep, [facility] [address] [id number] [address] [place] [address], [place] [address] Sep, [facility] [address] [id number] [address] [place] [address], [place] [address] Aug, [facility] [address] [id number] [address] [place] [address], [place] [address] Aug, [facility] [address] [id number] [address] [place] [address], [place] [address] Aug, [facility] [address] [id number] [address] [place] [address], [place] [address] Aug, [facility] [address] [id number] [address] [place] [address], [place] [address] Aug, [facility] [address] [id number] [address] [place] [address], [place] [address] Aug, [facility] [address] [id number] [address] [place] [address], [place] [address] Aug, [facility] [address] [id number] [address] [place] [address], [place] [address] Aug, [facility] [address] [id number] [address] [place] [address], [place] [address] Aug, [facility] [address] [id number] [address] [place] [address], [place] [address] Jul, [facility] [address] [id number] [address] [place] [address] Jul, [facility] [address] [facility] [id number] [address] [place] [address] Jul, [facility] [address] [facility] [id number] [address] [place] [address] Jul, [facility] [address] [facility] [id number] [address] [place] [address] Nov, [facility] [address] [facility] [id number] [address] [place] [address] Sep, [facility] [address] [facility] [id number] [address] [place] [address] Aug, [facility] [address] [facility] [id number] [address] [place] [address] Aug, [facility] [address] [facility] [id number] [address] [place] [address] Aug, [facility] [address] [facility] [id number] [address] [place] [address] Jul, IMMUNIZATIONS No Known Immunizations SOCIAL HISTORY [...] 05/2005 Surgical History Right Rotator Cuff Repair Zada 06/2016 Surgical History Colonoscopy Kido (1 Polyp) repeat 5 year s 2019 2014 Surgical History right rotator cuff surgery 06/27/2016 Hospitalization History Overdosed on Clonazepam #35. Osalissethto parvin 03/2014 Hospitalization History Overdosed on Xanax 07/2012 Hospitalization History Hypostension-medication side effect-[facility]ia [facility] 03/13/16
--- OUTSIDE RECORDS SUMMARY | 2019-09-11 12:31 | XMS REPORT ---
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 Active 856126913 Problem Abdominal pain R10.9 Active 37563 001 Problem Change in bowel habit R19.4 Active 63453403 Problem Coronary atherosclerosis due to lipid rich plaque I25.83 Active 09540623 Problem Type 2 diabetes 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 E11.8 Active 07571753 Problem Impotence N52.9 Active 616390350 Problem Family history of colon cancer Z80.0 Active 901467408 Problem Diabetic neuropathy, painful E11.40 A ctive 356865250 Problem Arm paresthesia, right R20.2 Active 91374397 Problem Gastroesophageal reflux disease without esophagitis K21.9 Active 715689071 Problem Drug abuse, opioid type F11.10 Active 6758746 Problem COPD exacerbation J44.1 Active 19 6725425 Problem Obstructive sleep apnea syndrome G47.33 Active 72300310 Problem Diverticulitis K57.92 Active 92738 6006 Problem Pain of right upper extremity M79.601 Active 032643333 Problem Respiratory bronchiolitis interstitial lung disease J84.115 Active 348365354 Problem Hypoxia R09.02 Active 688957632 Problem Interstitial lung disease J84.9 Acti ve [id number] ALLERGIES No Information ENCOUNTERS Encounter Location Date Diagnosis [facility] [address] [facility] [id number] [address] [place] [address] Aug, [facility] [address] [facility] [id number] [address] [place] [address] Aug, Diabetic neuropathy, painful E11.40 ; Interstitial lung disease J84.9 ; Chronic cough R05 ; Type 2 diabetes 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 E11.8 and 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 [facility] [address] [facility] [id number] [address] [place] [address] Jul, [facility] [address] [facility] [id number] [address] [place] [address] Jul, [facility] [address] [place] [id number] [place] [address] Jul, Diabetic neuropathy, painful E11.40 [place] [address] [address] Jul, Type 2 diabetes mellitus wit h complication E11.8 [facility] [address] [place] [id number] [place] [address] Jun, Diabetic neuropathy, painful E11.40 [facility] [address] [address] Jun, [facility] [address] [address] Jun, Type 2 diabetes mellitus wit h complication E11.8 ; Other viral agents as the cause of diseases classified elsewhere B97.89 ; Acute upper respiratory infection, unspecified J06.9 ; Acute recurrent maxillary sinusitis J01.01 ; Sore throat J02.9 and Headache R51 [facility] [id number] [place] [address] Jun, Right lower quadrant abdomin al pain R10.31 and Type 2 diabetes 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 E11.8 [place] [address] [place] [id number] [place] [address] May, Diabetic neuropathy, painful E11.40 [facility] [address] [place] [id number] [address] [place] [address] 06 May, 2017 COPD exacerbation J44.1 and Type 2 diabetes 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 E11.8 [facility] [address] [place] [id number] [place] [address] Apr, Diabetic neuropathy, painful E11.40 [place] [address] [address] Apr, Diabetic neuropathy, painful E11.40 [facility] [place] [address] [address] Mar, Bronchitis J40 [place] [address] [address] January, Type 2 diabetes mellitus wit h [...] M79.622 and Cervical spinal stenosis M48.02 [facility] [place] [address] [address] January, Viral gastroenteritis A08.4 [place] [address] [address] Dec, Diabetic neuropathy, painful E11.40 [place] [address] [place] [id number] [place] [id number] Oct, [place] [address] [address] Oct, Acute right-sided weakness M 62.89 and Slurring of speech R47.81 [place] [address] [address] Sep, Type 2 diabetes mellitus wit h complication E11.8 ; Diabetic neuropathy, painful E11.40 ; Impotence N52.9 ; Coronary atherosclerosis due to lipid rich plaque I25.83 ; alf 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.4 ; Interstitial lung disease J84.9 ; Hypoxia R09.02 ; Essential hypertension I10 and Gastroesophageal reflux disease without esophagitis K21.9 [facility] [address] [facility] [id number] [address] [place] [address] Sep, Bronchitis J40 [facility] [address] [facility] [id number] [address] [place] [address] Aug, Gastroenteritis and colitis, viral A08.4 [facility] [address] [facility] [id number] [address] [place] [address] Aug, [facility] [address] [facility] [id number] [address] [place] [address] Jun, Type 2 diabetes mellitus wit h complication E11.8 ; Diabetic neuropathy, painful E11.40 ; Impotence N52.9 ; Coronary atherosclerosis due to lipid rich plaque I25.83 ; 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 ; Interstitial lung disease J84.9 ; Hypoxia R09.02 and Essential hypertension I10 [facility] [address] [facility] [id number] [address] [place] [address] 30 May, 2016 Bronchitis J40 [facility] [address] [facility] [id number] [address] [place] [address] 29 May, 2016 [facility] [address] [facility] [id number] [address] [place] [address] May, Pain of right upper extremit y M79.601 [facility] [address] [facility] [id number] [address] [place] [address] May, [facility] [address] [facility] [id number] [address] [place] [address] 15 May, 2016 [facility] [address] [facility] [id number] [address] [place] [address] 07 May, 2016 Right hand pain M79.641 [facility] [address] [facility] [id number] [address] [place] [address] Apr, [facility] [address] [facility] [id number] [address] [place] [address] Apr, [facility] [address] [id number] [address] [place] [address] Mar, [facility] [address] [facility] [id number] [address] [place] [address] Mar, Essential hypertension I10 [facility] [address] [facility] [id number] [address] [place] [address] Feb, [facility] [address] [facility] [id number] [address] [place] [address] Feb, Interstitial lung disease J8 4.9 and Bronchitis J40 [place] [address] [facility] [id number] [address] [place] [address] Feb, [place] [address] [facility] [id number] [address] [place] [address] Feb, Type 2 diabetes mellitus wit h complication E11.8 ; Impotence N52.9 ; Coronary atherosclerosis due to lipid rich plaque I25.83 ; 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 and Diabetic neuropathy, painful E11.40 [place] [address] [facility] [id number] [address] [place] [address] January, [place] [address] [facility] [id number] [address] [place] [address] January, Arm paresthesia, right R20.2 and Pain of right upper extremity M79.601 [place] [address] [facility] [id number] [address] [place] [address] Dec, Lumbar strain S39.012A [place] [address] [facility] [id number] [address] [place] [address] Nov, Diabetic neuropathy, painful E11.40 ; Respiratory bronchiolitis interstitial lung disease J84.115 ; Pain of right upper extremity M79.601 and Arm paresthesia, right R20.2 [place] [address] [facility] [id number] [address] [place] [address] Nov, Diabetic neuropathy, painful E11.[address] [facility] [address] Sep, Type 2 diabetes mellitus wit h complication E11.8 ; Impotence N52.9 ; Coronary atherosclerosis due to lipid rich plaque I25.83 ; alf 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.4 ; Diabetic neuropathy, painful E11.40 ; Chest pain R07.9 and Restless leg G25.[address] [address] Sep, [address] [address] Jul, COPD (chronic obstructive pu lmonary disease) with acute bronchitis J44.[address] [address] Jun, Abdominal pain R10.9 ; Famil y history of colon cancer Z80.0 and Diverticulitis K57.[address] [address] Jun, Abdominal pain R10.9 and Div erticulitis K57.[address] [address] Apr, Diabetes with other specifie d manifestations, type II or unspecified type, not stated as uncontrolled 250.80 ; Coronary atherosclerosis of unspecified type of vessel, [place] owingeh or graft 414.00 ; Unspecified essential hypertension 401.9 ; Impotence of organic origin 607.84 ; Sleep apnea 780.57 and Interstitial lung disease [address] [address] Dec, [address] [address] Dec, [address] [address] Nov, [address] [address] Nov, [facility] [address] [id number] [address] [place] [address], [place] [address] Nov, [facility] [address] [id number] [address] [place] [address], [place] [address] Nov, [facility] [address] [id number] [address] [place] [address], [place] [address] Nov, [facility] [address] [id number] [address] [place] [address], [place] [address] Nov, [facility] [address] [id number] [address] [place] [address], [place] [address] Nov, [facility] [address] [id number] [address] [place] [address], [place] [address] Nov, [facility] [address] [id number] [address] [place] [address], [place] [address] Nov, [facility] [address] [id number] [address] [place] [address], [place] [address] Nov, [facility] [address] [id number] [address] [place] [address], [place] [address] Oct, [facility] [address] [id number] [address] [place] [address], [place] [address] Oct, 2014 [facility] [address] [id number] [address] [place] [address], [place] [address] Oct, 2014 [facility] [address] [id number] [address] [place] [address] Oct, 2014 [facility] [address] [id number] [address] [place] [address], [place] [address] Oct, 2014 [facility] [address] [id number] [address] [place] [address], [place] [address] Oct, 2014 [facility] [address] [id number] [address] [place] [address], [place] [address] Oct, 2014 [facility] [address] [id number] [address] [place] [address], [place] [address] 04 Oct, 2014 [facility] [address] [id number] [address] [place] [address], [place] [address] Oct, 2014 [facility] [address] [id number] [address] [place] [address], [place] [address] Oct, 2014 [facility] [address] [id number] [address] [place] [address], [place] [address] Oct, 2014 [facility] [address] [id number] [address] [place] [address], [place] [address] Jul, [facility] [address] [id number] [address] [place] [address], [place] [address] Jul, [facility] [address] [id number] [address] [place] [address], [place] [address] Jun, [facility] [address] [id number] [address] [place] [address], [place] [address] 29 Jun, 2014 [facility] [address] [id number] [address] [place] [address], [place] [address] Jun, [facility] [address] [id number] [address] [place] [address], [place] [address] 17 Jun, 2014 [facility] [address] [id number] [address] [place] [address], [place] [address] 15 Jun, 2014 [facility] [address] [id number] [address] [place] [address], [place] [address] 15 Jun, 2014 [facility] [address] [id number] [address] [place] [address], [place] [address] 14 Jun, 2014 [facility] [address] [id number] [address] [place] [address], [place] [address] 14 Jun, 2014 [facility] [address] [id number] [address] [place] [address], [place] [address] 13 Jun, 2014 [facility] [address] [id number] [address] [place] [address], [place] [address] Jun, [facility] [address] [id number] [address] [place] [address], [place] [address] 08 Jun, 2014 [facility] [address] [id number] [address] [place] [address], [place] [address] 08 Jun, 2014 [facility] [address] [id number] [address] [place] [address], [place] [address] Jun, [facility] [address] [id number] [address] [place] [address], [place] [address] Jun, [facility] [address] [id number] [address] [place] [address], [place] [address] 30 May, 2014 [facility] [address] [id number] [address] [place] [address], [place] [address] 30 May, 2014 [facility] [address] [id number] [address] [place] [address], [place] [address] May, [facility] [address] [id number] [address] [place] [address], [place] [address] May, [facility] [address] [id number] [address] [place] [address], [place] [address] 05 May, 2014 [facility] [address] [id number] [address] [place] [address], [place] [address] 05 May, 2014 [facility] [address] [id number] [address] [place] [address], [place] [address] Apr, [facility] [address] [id number] [address] [place] [address], [place] [address] Apr, [facility] [address] [id number] [address] [place] [address], [place] [address] Apr, [facility] [address] [id number] [address] [place] [address], [place] [address] Apr, [facility] [address] [id number] [address] [place] [address], [place] [address] Apr, [facility] [address] [id number] [address] [place] [address], [place] [address] Apr, [facility] [address] [id number] [facility] [place] [address] Apr, [facility] [address] [id number] [facility] [place] [address] Apr, [facility] [address] [id number] [facility] [place] [address] Apr, [facility] [address] [id number] [address] [place] [address], [place] [address] Apr, [facility] [address] [id number] [address] [place] [address], [place] [address] Apr, [facility] [address] [id number] [address] [place] [address], [place] [address] Apr, [facility] [address] [id number] [address] [place] [address], [place] [address] Mar, [facility] [address] [id number] [address] [place] [address], [place] [address] Mar, [facility] [address] [id number] [address] [place] [address], [place] [address] Mar, [facility] [address] [id number] [address] [place] [address], [place] [address] Mar, [facility] [address] [id number] [address] [place] [address], [place] [address] Mar, [facility] [address] [id number] [address] [place] [address], [place] [address] Mar, [facility] [address] [id number] [address] [place] [address], [place] [address] Mar, [facility] [address] [id number] [address] [place] [address], [place] [address] Mar, [facility] [address] [id number] [address] [place] [address], [place] [address] Mar, [facility] [address] [id number] [facility] [place] [address] Mar, [facility] [address] [id number] [facility] [place] [address] Mar, [facility] [address] [id number] [facility] [place] [address] Feb, [facility] [address] [id number] [facility] [place] [address] Feb, [facility] [address] [id number] [address] [place] [address], [place] [address] Feb, [facility] [address] [id number] [address] [place] [address], [place] [address] Feb, [facility] [address] [id number] [address] [place] [address], [place] [address] Feb, [facility] [address] [id number] [address] [place] [address], [place] [address] Feb, [facility] [address] [id number] [address] [place] [address], [place] [address] Feb, [facility] [address] [id number] [address] [place] [address], [place] [address] Feb, [facility] [address] [id number] [address] [place] [address], [place] [address] Feb, [facility] [address] [id number] [address] [place] [address], [place] [address] Feb, [facility] [address] [id number] [address] [place] [address], [place] [address] January, [facility] [address] [id number] [address] [place] [address], [place] [address] January, [facility] [address] [id number] [address] [place] [address], [place] [address] January, [facility] [address] [id number] [address] [place] [address], [place] [address] January, [facility] [address] [id number] [facility] [place] [address] January, [facility] [address] [id number] [address] [place] [address], [place] [address] January, [facility] [address] [id number] [address] [place] [address], [place] [address] January, [facility] [address] [id number] [address] [place] [address], [place] [address] January, [facility] [address] [id number] [address] [place] [address], [place] [address] January, [facility] [address] [id number] [address] [place] [address], [place] [address] January, [facility] [address] [id number] [address] [place] [address], [place] [address] January, [facility] [address] [id number] [address] [place] [address], [place] [address] January, [facility] [address] [id number] [address] [place] [address], [place] [address] January, [facility] [address] [id number] [address] [place] [address], [place] [address] January, [facility] [address] [id number] [address] [place] [address], [place] [address] January, [facility] [address] [id number] [address] [place] [address], [place] [address] January, [facility] [address] [id number] [address] [place] [address], [place] [address] Dec, [facility] [address] [id number] [address] [place] [address], [place] [address] Dec, [facility] [address] [id number] [address] [place] [address], [place] [address] Dec, [facility] [address] [id number] [address] [place] [address], [place] [address] 17 Dec, 2013 [facility] [address] [id number] [address] [place] [address], [place] [address] Dec, [facility] [address] [id number] [address] [place] [address], [place] [address] Dec, [facility] [address] [id number] [address] [place] [address], [place] [address] Dec, [facility] [address] [id number] [address] [place] [address], [place] [address] Dec, [facility] [address] [id number] [address] [place] [address], [place] [address] Dec, [facility] [address] [id number] [address] [place] [address], [place] [address] Dec, [facility] [address] [id number] [address] [place] [address], [place] [address] Nov, [facility] [address] [id number] [address] [place] [address], [place] [address] Nov, [facility] [address] [id number] [address] [place] [address], [place] [address] Oct, [facility] [address] [id number] [address] [place] [address], [place] [address] Oct, [facility] [address] [id number] [address] [place] [address], [place] [address] Oct, [facility] [address] [id number] [address] [place] [address], [place] [address] Sep, [facility] [address] [id number] [address] [place] [address], [place] [address] Sep, [facility] [address] [id number] [address] [place] [address], [place] [address] Sep, [facility] [address] [id number] [address] [place] [address], [place] [address] Sep, [facility] [address] [id number] [address] [place] [address], [place] [address] Sep, [facility] [address] [id number] [address] [place] [address], [place] [address] Sep, [facility] [address] [id number] [address] [place] [address], [place] [address] Sep, [facility] [address] [id number] [address] [place] [address], [place] [address] Sep, [facility] [address] [id number] [address] [place] [address], [place] [address] Sep, [facility] [address] [id number] [address] [place] [address], [place] [address] Sep, [facility] [address] [id number] [address] [place] [address], [place] [address] Sep, [facility] [address] [id number] [address] [place] [address], [place] [address] Sep, [facility] [address] [id number] [address] [place] [address], [place] [address] Aug, [facility] [address] [id number] [address] [place] [address], [place] [address] Aug, [facility] [address] [id number] [address] [place] [address], [place] [address] Aug, [facility] [address] [id number] [address] [place] [address], [place] [address] Aug, [facility] [address] [id number] [address] [place] [address], [place] [address] Jul, [facility] [address] [id number] [address] [place] [address], [place] [address] Jul, [facility] [address] [id number] [address] [place] [address], [place] [address] Jun, [facility] [address] [id number] [address] [place] [address] [place] [address] 30 Jun, 2013 [facility] [address] [id number] [address] [place] [address], [place] [address] Jun, [facility] [address] [id number] [address] [place] [address], [place] [address] Jun, [facility] [address] [id number] [address] [place] [address], [place] [address] Jun, [facility] [address] [id number] [address] [place] [address], [place] [address] Jun, [facility] [address] [id number] [address] [place] [address], [place] [address] Jun, [facility] [address] [id number] [address] [place] [address], [place] [address] Jun, [facility] [address] [id number] [address] [place] [address], [place] [address] 24 May, 2012 [facility] [address] [id number] [address] [place] [address], [place] [address] 23 May, 2012 [facility] [address] [id number] [address] [place] [address], [place] [address] 18 May, 2012 [facility] [address] [id number] [address] [place] [address], [place] [address] 13 May, 2012 [facility] [address] [id number] [address] [place] [address], [place] [address] 11 May, 2012 [facility] [address] [id number] [address] [place] [address], [place] [address] 06 May, 2012 [facility] [address] [id number] [address] [place] [address], [place] [address] 03 May, 2012 [facility] [address] [id number] [address] [place] [address], [place] [address] 30 Apr, 2013 [facility] [address] [id number] [address] [place] [address], [place] [address] 22 Apr, 2013 [facility] [address] [id number] [address] [place] [address], [place] [address] Apr, [facility] [address] [id number] [address] [place] [address], [place] [address] Apr, [facility] [address] [id number] [address] [place] [address], [place] [address] Apr, [facility] [address] [id number] [address] [place] [address], [place] [address] Apr, [facility] [address] [id number] [address] [place] [address], [place] [address] Apr, [facility] [address] [id number] [address] [place] [address], [place] [address] Mar, [facility] [address] [id number] [address] [place] [address], [place] [address] Mar, [facility] [address] [id number] [address] [place] [address], [place] [address] Mar, [facility] [address] [id number] [address] [place] [address], [place] [address] Mar, [facility] [address] [id number] [address] [place] [address], [place] [address] Mar, [facility] [address] [id number] [address] [place] [address], [place] [address] Mar, [facility] [address] [id number] [address] [place] [address], [place] [address] Mar, [facility] [address] [id number] [address] [place] [address], [place] [address] Mar, [facility] [address] [id number] [address] [place] [address], [place] [address] Feb, [facility] [address] [id number] [address] [place] [address], [place] [address] Feb, [facility] [address] [id number] [address] [place] [address], [place] [address] Feb, [facility] [address] [id number] [address] [place] [address], [place] [address] January, [facility] [address] [id number] [address] [place] [address], [place] [address] January, [facility] [address] [id number] [address] [place] [address], [place] [address] January, [facility] [address] [id number] [address] [place] [address], [place] [address] January, [facility] [address] [id number] [address] [place] [address], [place] [address] January, [facility] [address] [id number] [address] [place] [address], [place] [address] January, [facility] [address] [id number] [address] [place] [address], [place] [address] January, [facility] [address] [id number] [address] [place] [address], [place] [address] January, [facility] [address] [id number] [address] [place] [address], [place] [address] Dec, [facility] [address] [id number] [address] [place] [address], [place] [address] Dec, [facility] [address] [id number] [address] [place] [address], [place] [address] Dec, [facility] [address] [id number] [address] [place] [address], [place] [address] Dec, [facility] [address] [id number] [address] [place] [address], [place] [address] Dec, [facility] [address] [id number] [address] [place] [address], [place] [address] Nov, [facility] [address] [id number] [address] [place] [address], [place] [address] Nov, [facility] [address] [id number] [address] [place] [address], [place] [address] 19 Nov, 2012 [facility] [address] [id number] [address] [place] [address], [place] [address] 18 Nov, 2012 [facility] [address] [id number] [address] [place] [address], [place] [address] 18 Nov, 2012 [facility] [address] [id number] [address] [place] [address], [place] [address] 14 Nov, 2012 [facility] [address] [id number] [address] [place] [address], [place] [address] 11 Nov, 2012 [facility] [address] [id number] [address] [place] [address], [place] [address] 11 Nov, 2012 [facility] [address] [id number] [address] [place] [address], [place] [address] 21 Oct, 2012 [facility] [address] [id number] [address] [place] [address], [place] [address] 21 Oct, 2012 [facility] [address] [id number] [address] [place] [address], [place] [address] 12 Oct, 2012 [facility] [address] [id number] [address] [place] [address], [place] [address] 08 Oct, 2012 [facility] [address] [id number] [address] [place] [address], [place] [address] 07 Oct, 2012 [facility] [address] [id number] [address] [place] [address], [place] [address] 07 Oct, 2012 [facility] [address] [id number] [address] [place] [address], [place] [address] 05 Oct, 2012 [facility] [address] [id number] [address] [place] [address], [place] [address] 04 Oct, 2012 [facility] [address] [id number] [address] [place] [address], [place] [address] 04 Oct, 2012 [facility] [address] [id number] [address] [place] [address], [place] [address] Sep, [facility] [address] [id number] [address] [place] [address], [place] [address] Sep, [facility] [address] [id number] [address] [place] [address], [place] [address] Sep, [facility] [address] [id number] [address] [place] [address], [place] [address] Sep, [facility] [address] [id number] [address] [place] [address], [place] [address] Sep, [facility] [address] [id number] [address] [place] [address], [place] [address] Sep, [facility] [address] [id number] [address] [place] [address], [place] [address] Aug, [facility] [address] [id number] [address] [place] [address], [place] [address] Aug, [facility] [address] [id number] [address] [place] [address], [place] [address] Aug, [facility] [address] [id number] [address] [place] [address], [place] [address] Aug, [facility] [address] [id number] [address] [place] [address], [place] [address] Aug, [facility] [address] [id number] [address] [place] [address], [place] [address] 18 Aug, 2012 [facility] [address] [id number] [address] [place] [address], [place] [address] 13 Aug, 2012 [facility] [address] [id number] [address] [place] [address], [place] [address] Aug, [facility] [address] [id number] [address] [place] [address], [place] [address] Aug, [facility] [address] [id number] [address] [place] [address], [place] [address] Jul, [facility] [address] [id number] [address] [place] [address] Jul, [facility] [address] [id number] [address] [place] [address] Jul, [facility] [address] [id number] [address] [place] [address] Jul, [facility] [address] [facility] [id number] [address] [place] [address] Nov, [facility] [address] [facility] [id number] [address] [place] [address] Sep, [facility] [address] [facility] [id number] [address] [place] [address] Aug, [facility] [address] [facility] [id number] [address] [place] [address] Aug, [facility] [address] [facility] [id number] [address] [place] [address] Aug, [facility] [address] [facility] [id number] [address] [place] [address] Jul, IMMUNIZATIONS No Known Immunizations SOCIAL HISTORY [...] 05/2005 Surgical History Right Rotator Cuff Repair [facility] 06/2016 Surgical History Colonoscopy Kido (1 Polyp) repeat 5 year s 2019 2014 Surgical History right rotator cuff surgery 06/27/2016 Hospitalization History Overdosed on Clonazepam #35. Lori parvin 03/2014 Hospitalization History Overdosed on Xanax 07/2012 Hospitalization History Hypostension-medication side effect-[facility] 03/13/16
--- OUTSIDE RECORDS SUMMARY | 2019-09-11 12:31 | XMS REPORT ---
Author Author Miguel VERDUZCO Organization [facility] Address [address] [place] [address] Care Team Providers Care Salesperson Neckties Name Role Phone JOSE VERDUZCO Unavailable PROBLEMS Type Condition ICD9-CM Code ABF25-WG Code Onset Dates Condition S tatus SNOMED Code Problem Neuropathy G62.9 Active 349914946 Problem Essential hypertension I10 Active 53383173 Problem nursing home 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.4 Active 148565201 Problem Abdominal pain R10.9 Active 73475 001 Problem Change in bowel habit R19.4 Active 55810380 Problem Coronary atherosclerosis due to lipid rich plaque I25.83 Active 79713030 Problem Type 2 diabetes 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 E11.8 Active 57686477 Problem Impotence N52.9 Active 962108549 Problem Family history of colon cancer Z80.0 Active 234139125 Problem Diabetic neuropathy, painful E11.40 A ctive 580870734 Problem Arm paresthesia, right R20.2 Active 18306997 Problem Gastroesophageal reflux disease without esophagitis K21.9 Active 459269393 Problem Drug abuse, opioid type F11.10 Active 7941228 Problem COPD exacerbation J44.1 Active 19 6271740 Problem Obstructive sleep apnea syndrome G47.33 Active 34942010 Problem Diverticulitis K57.92 Active 42220 6006 Problem Pain of right upper extremity M79.601 Active 720244061 Problem Respiratory bronchiolitis interstitial lung disease J84.115 Active 855151041 Problem Hypoxia R09.02 Active 352754848 Problem Interstitial lung disease J84.9 Acti ve [id number] ALLERGIES No Information ENCOUNTERS Encounter Location Date Diagnosis [facility] [address] [facility] [id number] [address] [place] [address] Aug, [facility] [address] [facility] [id number] [address] [place] [address] Aug, Diabetic neuropathy, painful E11.40 ; Interstitial lung disease J84.9 ; Chronic cough R05 ; Type 2 diabetes 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 E11.8 and 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 [facility] [address] [facility] [id number] [address] [place] [address] Jul, [facility] [address] [facility] [id number] [address] [place] [address] Jul, [facility] [address] [place] [id number] [place] [address] Jul, Diabetic neuropathy, painful E11.40 [place] [address] [address] Jul, Type 2 diabetes mellitus wit h complication E11.8 [facility] [address] [place] [id number] [place] [address] Jun, Diabetic neuropathy, painful E11.40 [facility] [address] [address] Jun, [facility] [address] [address] Jun, Type 2 diabetes mellitus wit h complication E11.8 ; Other viral agents as the cause of diseases classified elsewhere B97.89 ; Acute upper respiratory infection, unspecified J06.9 ; Acute recurrent maxillary sinusitis J01.01 ; Sore throat J02.9 and Headache R51 [facility] [id number] [place] [address] Jun, Right lower quadrant abdomin al pain R10.31 and Type 2 diabetes 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 E11.8 [place] [address] [place] [id number] [place] [address] May, Diabetic neuropathy, painful E11.40 [facility] [address] [place] [id number] [address] [place] [address] 06 May, 2017 COPD exacerbation J44.1 and Type 2 diabetes 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 E11.8 [facility] [address] [place] [id number] [address] [place] [address] Apr, Diabetic neuropathy, painful E11.40 [place] [address] [address] Apr, Diabetic neuropathy, painful E11.40 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 WALK [place] [address] [address] January, Viral gastroenteritis A08.4 [place] [address] [address] Dec, Diabetic neuropathy, painful E11.40 [place] [address] [place] [id number] [place] [id number] Oct, [place] [address] [address] Oct, Acute right-sided weakness M 62.89 and Slurring of speech R47.81 [place] [address] [address] Sep, Type 2 diabetes mellitus wit h complication E11.8 ; Diabetic neuropathy, painful E11.40 ; Impotence N52.9 ; Coronary atherosclerosis due to lipid rich plaque I25.83 ; nursing home 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.4 ; Interstitial lung disease J84.9 ; Hypoxia R09.02 ; Essential hypertension I10 and Gastroesophageal reflux disease without esophagitis K21.9 [facility] [address] [facility] [id number] [address] [place] [address] Sep, Bronchitis J40 [facility] [address] [facility] [id number] [address] [place] [address] Aug, Gastroenteritis and colitis, viral A08.4 [facility] [address] [facility] [id number] [address] [place] [address] Aug, [facility] [address] [facility] [id number] [address] [place] [address] Jun, Type 2 diabetes mellitus wit h complication E11.8 ; Diabetic neuropathy, painful E11.40 ; Impotence N52.9 ; Coronary atherosclerosis due to lipid rich plaque I25.83 ; nursing home 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.4 ; Interstitial lung disease J84.9 ; Hypoxia R09.02 and Essential hypertension I10 [facility] [address] [facility] [id number] [address] [place] [address] 30 May, 2016 Bronchitis J40 [facility] [address] [facility] [id number] [address] [place] [address] 29 May, 2016 [facility] [address] [facility] [id number] [address] [place] [address] May, Pain of right upper extremit y M79.601 [facility] [address] [facility] [id number] [address] [place] [address] May, [facility] [address] [facility] [id number] [address] [place] [address] 15 May, 2016 [facility] [address] [facility] [id number] [address] [place] [address] 07 May, 2016 Right hand pain M79.641 [facility] [address] [facility] [id number] [address] [place] [address] Apr, [facility] [address] [facility] [id number] [address] [place] [address] Apr, [facility] [address] [id number] [address] [place] [address] Mar, [facility] [address] [facility] [id number] [address] [place] [address] Mar, Essential hypertension I10 [facility] [address] [facility] [id number] [address] [place] [address] Feb, [facility] [address] [facility] [id number] [address] [place] [address] Feb, Interstitial lung disease J8 4.9 and Bronchitis J40 [place] [address] [facility] [id number] [address] [place] [address] Feb, [place] [address] [facility] [id number] [address] [place] [address] Feb, Type 2 diabetes mellitus wit h complication E11.8 ; Impotence N52.9 ; Coronary atherosclerosis due to lipid rich plaque I25.83 ; 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 and Diabetic neuropathy, painful E11.40 [place] [address] [facility] [id number] [address] [place] [address] January, [place] [address] [facility] [id number] [address] [place] [address] January, Arm paresthesia, right R20.2 and Pain of right upper extremity M79.601 [place] [address] [facility] [id number] [address] [place] [address] Dec, Lumbar strain S39.012A [place] [address] [facility] [id number] [address] [place] [address] Nov, Diabetic neuropathy, painful E11.40 ; Respiratory bronchiolitis interstitial lung disease J84.115 ; Pain of right upper extremity M79.601 and Arm paresthesia, right R20.2 [place] [address] [facility] [id number] [address] [place] [address] Nov, Diabetic neuropathy, painful E11.[address] [facility] [address] [address] Sep, Type 2 diabetes mellitus wit h complication E11.8 ; Impotence N52.9 ; Coronary atherosclerosis due to lipid rich plaque I25.83 ; nursing home 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.4 ; Diabetic neuropathy, painful E11.40 ; Chest pain R07.9 and Restless leg G25.[address] [address] Sep, [address] [address] Jul, COPD (chronic obstructive pu lmonary disease) with acute bronchitis J44.[address] [address] Jun, Abdominal pain R10.9 ; Famil y history of colon cancer Z80.0 and Diverticulitis K57.[address] [address] Jun, Abdominal pain R10.9 and Div erticulitis K57.[address] [address] Apr, Diabetes with other specifie d manifestations, type II or unspecified type, not stated as uncontrolled 250.80 ; Coronary atherosclerosis of unspecified type of vessel, [place] or graft 414.00 ; Unspecified essential hypertension 401.9 ; Impotence of organic origin 607.84 ; Sleep apnea 780.57 and Interstitial lung disease [address] [address] Dec, [address] [address] Dec, [address] [address] Nov, [address] [address] Nov, [facility] [address] [id number] [address] [place] [address], [place] [address] Nov, [facility] [address] [id number] [address] [place] [address], [place] [address] Nov, [facility] [address] [id number] [address] [place] [address], [place] [address] Nov, [facility] [address] [id number] [address] [place] [address], [place] [address] Nov, [facility] [address] [id number] [address] [place] [address], [place] [address] Nov, [facility] [address] [id number] [address] [place] [address], [place] [address] Nov, [facility] [address] [id number] [address] [place] [address], [place] [address] Nov, [facility] [address] [id number] [address] [place] [address], [place] [address] Nov, [facility] [address] [id number] [address] [place] [address], [place] [address] Oct, [facility] [address] [id number] [address] [place] [address], [place] [address] Oct, 2014 [facility] [address] [id number] [address] [place] [address], [place] [address] Oct, 2014 [facility] [address] [id number] [address] [place] [address] Oct, 2014 [facility] [address] [id number] [address] [place] [address], [place] [address] Oct, 2014 [facility] [address] [id number] [address] [place] [address], [place] [address] Oct, 2014 [facility] [address] [id number] [address] [place] [address], [place] [address] Oct, 2014 [facility] [address] [id number] [address] [place] [address], [place] [address] 04 Oct, 2014 [facility] [address] [id number] [address] [place] [address], [place] [address] Oct, 2014 [facility] [address] [id number] [address] [place] [address], [place] [address] Oct, 2014 [facility] [address] [id number] [address] [place] [address], [place] [address] Oct, 2014 [facility] [address] [id number] [address] [place] [address], [place] [address] Jul, [facility] [address] [id number] [address] [place] [address], [place] [address] Jul, [facility] [address] [id number] [address] [place] [address], [place] [address] Jun, [facility] [address] [id number] [address] [place] [address], [place] [address] 29 Jun, 2014 [facility] [address] [id number] [address] [place] [address], [place] [address] Jun, [facility] [address] [id number] [address] [place] [address], [place] [address] 17 Jun, 2014 [facility] [address] [id number] [address] [place] [address], [place] [address] 15 Jun, 2014 [facility] [address] [id number] [address] [place] [address], [place] [address] 15 Jun, 2014 [facility] [address] [id number] [address] [place] [address], [place] [address] 14 Jun, 2014 [facility] [address] [id number] [address] [place] [address], [place] [address] 14 Jun, 2014 [facility] [address] [id number] [address] [place] [address], [place] [address] 13 Jun, 2014 [facility] [address] [id number] [address] [place] [address], [place] [address] Jun, [facility] [address] [id number] [address] [place] [address], [place] [address] 08 Jun, 2014 [facility] [address] [id number] [address] [place] [address], [place] [address] 08 Jun, 2014 [facility] [address] [id number] [address] [place] [address], [place] [address] Jun, [facility] [address] [id number] [address] [place] [address], [place] [address] Jun, [facility] [address] [id number] [address] [place] [address], [place] [address] 30 May, 2014 [facility] [address] [id number] [address] [place] [address], [place] [address] 30 May, 2014 [facility] [address] [id number] [address] [place] [address], [place] [address] May, [facility] [address] [id number] [address] [place] [address], [place] [address] May, [facility] [address] [id number] [address] [place] [address], [place] [address] 05 May, 2014 [facility] [address] [id number] [address] [place] [address], [place] [address] 05 May, 2014 [facility] [address] [id number] [address] [place] [address], [place] [address] Apr, [facility] [address] [id number] [address] [place] [address], [place] [address] Apr, [facility] [address] [id number] [address] [place] [address], [place] [address] Apr, [facility] [address] [id number] [address] [place] [address], [place] [address] Apr, [facility] [address] [id number] [address] [place] [address], [place] [address] Apr, [facility] [address] [id number] [address] [place] [address], [place] [address] Apr, [facility] [address] [id number] [facility] [place] [address] Apr, [facility] [address] [id number] [facility] [place] [address] Apr, [facility] [address] [id number] [facility] [place] [address] Apr, [facility] [address] [id number] [address] [place] [address], [place] [address] Apr, [facility] [address] [id number] [address] [place] [address], [place] [address] Apr, [facility] [address] [id number] [address] [place] [address], [place] [address] Apr, [facility] [address] [id number] [address] [place] [address], [place] [address] Mar, [facility] [address] [id number] [address] [place] [address], [place] [address] Mar, [facility] [address] [id number] [address] [place] [address], [place] [address] Mar, [facility] [address] [id number] [address] [place] [address], [place] [address] Mar, [facility] [address] [id number] [address] [place] [address], [place] [address] Mar, [facility] [address] [id number] [address] [place] [address], [place] [address] Mar, [facility] [address] [id number] [address] [place] [address], [place] [address] Mar, [facility] [address] [id number] [address] [place] [address], [place] [address] Mar, [facility] [address] [id number] [address] [place] [address], [place] [address] Mar, [facility] [address] [id number] [facility] [address] Mar, [facility] [address] [id number] [facility] [place] [address] Mar, [facility] [address] [id number] [facility] [address] Feb, [facility] [address] [id number] [facility] [address] Feb, [facility] [address] [id number] [address] [place] [address], [place] [address] Feb, [facility] [address] [id number] [address] [place] [address], [place] [address] Feb, [facility] [address] [id number] [address] [place] [address], [place] [address] Feb, [facility] [address] [id number] [address] [place] [address], [place] [address] Feb, [facility] [address] [id number] [address] [place] [address], [place] [address] Feb, [facility] [address] [id number] [address] [place] [address], [place] [address] Feb, [facility] [address] [id number] [address] [place] [address], [place] [address] Feb, [facility] [address] [id number] [address] [place] [address], [place] [address] Feb, [facility] [address] [id number] [address] [place] [address], [place] [address] January, [facility] [address] [id number] [address] [place] [address], [place] [address] January, [facility] [address] [id number] [address] [place] [address], [place] [address] January, [facility] [address] [id number] [address] [place] [address], [place] [address] January, [facility] [address] [id number] [facility] [place] [address] January, [facility] [address] [id number] [address] [place] [address], [place] [address] January, [facility] [address] [id number] [address] [place] [address], [place] [address] January, [facility] [address] [id number] [address] [place] [address], [place] [address] January, [facility] [address] [id number] [address] [place] [address], [place] [address] January, [facility] [address] [id number] [address] [place] [address], [place] [address] January, [facility] [address] [id number] [address] [place] [address], [place] [address] January, [facility] [address] [id number] [address] [place] [address], [place] [address] January, [facility] [address] [id number] [address] [place] [address], [place] [address] January, [facility] [address] [id number] [address] [place] [address], [place] [address] January, [facility] [address] [id number] [address] [place] [address], [place] [address] January, [facility] [address] [id number] [address] [place] [address], [place] [address] January, [facility] [address] [id number] [address] [place] [address], [place] [address] Dec, [facility] [address] [id number] [address] [place] [address], [place] [address] Dec, [facility] [address] [id number] [address] [place] [address], [place] [address] Dec, [facility] [address] [id number] [address] [place] [address], [place] [address] 17 Dec, 2013 [facility] [address] [id number] [address] [place] [address], [place] [address] Dec, [facility] [address] [id number] [address] [place] [address], [place] [address] Dec, [facility] [address] [id number] [address] [place] [address], [place] [address] Dec, [facility] [address] [id number] [address] [place] [address], [place] [address] Dec, [facility] [address] [id number] [address] [place] [address], [place] [address] Dec, [facility] [address] [id number] [address] [place] [address], [place] [address] Dec, [facility] [address] [id number] [address] [place] [address], [place] [address] Nov, [facility] [address] [id number] [address] [place] [address], [place] [address] Nov, [facility] [address] [id number] [address] [place] [address], [place] [address] Oct, [facility] [address] [id number] [address] [place] [address], [place] [address] Oct, [facility] [address] [id number] [address] [place] [address], [place] [address] Oct, [facility] [address] [id number] [address] [place] [address], [place] [address] Sep, [facility] [address] [id number] [address] [place] [address], [place] [address] Sep, [facility] [address] [id number] [address] [place] [address], [place] [address] Sep, [facility] [address] [id number] [address] [place] [address], [place] [address] Sep, [facility] [address] [id number] [address] [place], [place] [address], [place] [address] Sep, [facility] [address] [id number] [address] [place] [address], [place] [address] Sep, [facility] [address] [id number] [address] [place] [address], [place] [address] Sep, [facility] [address] [id number] [address] [place] [address], [place] [address] Sep, [facility] [address] [id number] [address] [place] [address], [place] [address] Sep, [facility] [address] [id number] [address] [place] [address], [place] [address] Sep, [facility] [address] [id number] [address] [place] [address], [place] [address] Sep, [facility] [address] [id number] [address] [place] [address], [place] [address] Sep, [facility] [address] [id number] [address] [place] [address], [place] [address] Aug, [facility] [address] [id number] [address] [place] [address], [place] [address] Aug, [facility] [address] [id number] [address] [place] [address], [place] [address] Aug, [facility] [address] [id number] [address] [place] [address], [place] [address] Aug, [facility] [address] [id number] [address] [place] [address], [place] [address] Jul, [facility] [address] [id number] [address] [place] [address], [place] [address] Jul, [facility] [address] [id number] [address] [place] [address], [place] [address] Jun, [facility] [address] [id number] [address] [place] [address] [place] [address] 30 Jun, 2013 [facility] [address] [id number] [address] [place] [address], [place] [address] Jun, [facility] [address] [id number] [address] [place] [address], [place] [address] Jun, [facility] [address] [id number] [address] [place] [address], [place] [address] Jun, [facility] [address] [id number] [address] [place] [address], [place] [address] Jun, [facility] [address] [id number] [address] [place] [address], [place] [address] Jun, [facility] [address] [id number] [address] [place] [address], [place] [address] Jun, [facility] [address] [id number] [address] [place] [address], [place] [address] 24 May, 2012 [facility] [address] [id number] [address] [place] [address], [place] [address] 23 May, 2012 [facility] [address] [id number] [address] [place] [address], [place] [address] 18 May, 2012 [facility] [address] [id number] [address] [place] [address], [place] [address] 13 May, 2012 [facility] [address] [id number] [address] [place] [address], [place] [address] 11 May, 2012 [facility] [address] [id number] [address] [place] [address], [place] [address] 06 May, 2012 [facility] [address] [id number] [address] [place] [address], [place] [address] 03 May, 2012 [facility] [address] [id number] [address] [place] [address], [place] [address] 30 Apr, 2013 [facility] [address] [id number] [address] [place] [address], [place] [address] 22 Apr, 2013 [facility] [address] [id number] [address] [place] [address], [place] [address] Apr, [facility] [address] [id number] [address] [place] [address], [place] [address] Apr, [facility] [address] [id number] [address] [place] [address], [place] [address] Apr, [facility] [address] [id number] [address] [place] [address], [place] [address] Apr, [facility] [address] [id number] [address] [place] [address], [place] [address] Apr, [facility] [address] [id number] [address] [place] [address], [place] [address] Mar, [facility] [address] [id number] [address] [place] [address], [place] [address] Mar, [facility] [address] [id number] [address] [place] [address], [place] [address] Mar, [facility] [address] [id number] [address] [place] [address], [place] [address] Mar, [facility] [address] [id number] [address] [place] [address], [place] [address] Mar, [facility] [address] [id number] [address] [place] [address], [place] [address] Mar, [facility] [address] [id number] [address] [place] [address], [place] [address] Mar, [facility] [address] [id number] [address] [place] [address], [place] [address] Mar, [facility] [address] [id number] [address] [place] [address], [place] [address] Feb, [facility] [address] [id number] [address] [place] [address], [place] [address] Feb, [facility] [address] [id number] [address] [place] [address], [place] [address] Feb, [facility] [address] [id number] [address] [place] [address], [place] [address] January, [facility] [address] [id number] [address] [place] [address], [place] [address] January, [facility] [address] [id number] [address] [place] [address], [place] [address] January, [facility] [address] [id number] [address] [place] [address], [place] [address] January, [facility] [address] [id number] [address] [place] [address], [place] [address] January, [facility] [address] [id number] [address] [place] [address], [place] [address] January, [facility] [address] [id number] [address] [place] [address], [place] [address] January, [facility] [address] [id number] [address] [place] [address], [place] [address] January, [facility] [address] [id number] [address] [place] [address], [place] [address] Dec, [facility] [address] [id number] [address] [place] [address], [place] [address] Dec, [facility] [address] [id number] [address] [place] [address], [place] [address] Dec, [facility] [address] [id number] [address] [place] [address], [place] [address] Dec, [facility] [address] [id number] [address] [place] [address], [place] [address] Dec, [facility] [address] [id number] [address] [place] [address], [place] [address] Nov, [facility] [address] [id number] [address] [place] [address], [place] [address] Nov, [facility] [address] [id number] [address] [place] [address], [place] [address] 19 Nov, 2012 [facility] [address] [id number] [address] [place] [address], [place] [address] 18 Nov, 2012 [facility] [address] [id number] [address] [place] [address], [place] [address] 18 Nov, 2012 [facility] [address] [id number] [address] [place] [address], [place] [address] 14 Nov, 2012 [facility] [address] [id number] [address] [place] [address], [place] [address] 11 Nov, 2012 [facility] [address] [id number] [address] [place] [address], [place] [address] 11 Nov, 2012 [facility] [address] [id number] [address] [place] [address], [place] [address] 21 Oct, 2012 [facility] [address] [id number] [address] [place] [address], [place] [address] 21 Oct, 2012 [facility] [address] [id number] [address] [place] [address], [place] [address] 12 Oct, 2012 [facility] [address] [id number] [address] [place] [address], [place] [address] 08 Oct, 2012 [facility] [address] [id number] [address] [place] [address], [place] [address] 07 Oct, 2012 [facility] [address] [id number] [address] [place] [address], [place] [address] 07 Oct, 2012 [facility] [address] [id number] [address] [place] [address], [place] [address] 05 Oct, 2012 [facility] [address] [id number] [address] [place] [address], [place] [address] 04 Oct, 2012 [facility] [address] [id number] [address] [place] [address], [place] [address] 04 Oct, 2012 [facility] [address] [id number] [address] [place] [address], [place] [address] Sep, [facility] [address] [id number] [address] [place] [address], [place] [address] Sep, [facility] [address] [id number] [address] [place] [address], [place] [address] Sep, [facility] [address] [id number] [address] [place] [address], [place] [address] Sep, [facility] [address] [id number] [address] [place] [address], [place] [address] Sep, [facility] [address] [id number] [address] [place] [address], [place] [address] Sep, [facility] [address] [id number] [address] [place] [address], [place] [address] Aug, [facility] [address] [id number] [address] [place] [address], [place] [address] Aug, [facility] [address] [id number] [address] [place] [address], [place] [address] Aug, [facility] [address] [id number] [address] [place] [address], [place] [address] Aug, [facility] [address] [id number] [address] [place] [address], [place] [address] Aug, [facility] [address] [id number] [address] [place] [address], [place] [address] 18 Aug, 2012 [facility] [address] [id number] [address] [place] [address], [place] [address] 13 Aug, 2012 [facility] [address] [id number] [address] [place] [address], [place] [address] Aug, [facility] [address] [id number] [address] [place] [address], [place] [address] Aug, [facility] [address] [id number] [address] [place] [address], [place] [address] Jul, [facility] [address] [id number] [address] [place] [address] Jul, [facility] [address] [id number] [address] [place] [address] Jul, [facility] [address] [id number] [address] [place] [address] Jul, [facility] [address] [id number] [address] [place] [address] Nov, [facility] [address] [id number] [address] [place] [address] Sep, [facility] [address] [facility] [id number] [address] [place] [address] Aug, [facility] [address] [facility] [id number] [address] [place] [address] Aug, [facility] [address] [facility] [id number] [address] [place] [address] Aug, [facility] [address] [facility] [id number] [address] [place] [address] Jul, IMMUNIZATIONS No Known Immunizations SOCIAL HISTORY Never Assessed REASON FOR VISIT PLAN OF CARE VITAL SIGNS Height 74 in 2014-06-23 Weight 248 lbs 2014-06-23 Temperature 97.8 degrees Fahrenheit 2014-06-23 Heart Rate 88 bpm 2014-06-23 Respiratory Rate 20 2014-06-23 Blood pressure systolic 142 mmHg 2014-06-23 Blood pressure diastolic 80 mmHg 2014-06-23 MEDICATIONS Unknown Medications RESULTS No Results PROCEDURES Procedure Date Ordered Result Body Site GLUCOSE BLOOD TEST Jun 23, 2014 INSTRUCTIONS MEDICATIONS ADMINISTERED No Known Medications [...] Xanax 07/2012 Hospitalization History Hypostension-medication side effect-[facility]ia [facility] 03/13/16
--- OUTSIDE RECORDS SUMMARY | 2019-09-11 12:31 | XMS REPORT ---
Author Author Miguel Freeman Doctor Organization [facility] Address Unknown Phone Unavailable Care Team Providers Care Skiver Sock Linings Name Role Phone Migration, Doctor Unavailable Unavailable PROBLEMS Type Condition ICD9-CM Code [id number] Code Onset Dates Condition S tatus SNOMED Code Problem Neuropathy G62.9 Active 646524285 Problem Essential hypertension I10 Active 58651427 Problem senior care 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.4 Active 996330811 Problem Abdominal pain R10.9 Active 91756 001 Problem Change in bowel habit R19.4 Active 46994311 Problem Coronary atherosclerosis due to lipid rich plaque I25.83 Active 82961422 Problem Type 2 diabetes 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 E11.8 Active 22669876 Problem Impotence N52.9 Active 345745604 Problem Family history of colon cancer Z80.0 Active 928254400 Problem Diabetic neuropathy, painful E11.40 A ctive 387385641 Problem Arm paresthesia, right R20.2 Active 12025989 Problem Gastroesophageal reflux disease without esophagitis K21.9 Active 487295118 Problem Drug abuse, opioid type F11.10 Active 2008662 Problem COPD exacerbation J44.1 Active 19 1925984 Problem Obstructive sleep apnea syndrome G47.33 Active 36685721 Problem Diverticulitis K57.92 Active 54811 6006 Problem Pain of right upper extremity M79.601 Active 168471684 Problem Respiratory bronchiolitis interstitial lung disease J84.115 Active 182683599 Problem Hypoxia R09.02 Active 923682685 Problem Interstitial lung disease J84.9 Acti ve [id number] ALLERGIES No Information ENCOUNTERS Encounter Location Date Diagnosis [facility] [address] [facility] [id number] [address] [place] [address] May, [facility] [address] [facility] [id number] [address] [place] [address] Aug, [facility] [address] [facility] [id number] [address] [place] [address] Aug, Diabetic neuropathy, painful E11.40 ; Interstitial lung disease J84.9 ; Chronic cough R05 ; Type 2 diabetes 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 E11.8 and senior care 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.4 [facility] [address] [address] Jul, [facility] [address] [place] [id number] [place] [address] Jul, [facility] [address] [address] Jul, Diabetic neuropathy, painful E11.40 [place] [address] [address] Jul, Type 2 diabetes mellitus wit h complication E11.8 [place] [address] [address] Jun, Diabetic neuropathy, painful E11.40 [facility] [address] [address] Jun, [facility] [address] [address] Jun, Type 2 diabetes mellitus wit h complication E11.8 ; Other viral agents as the cause of diseases classified elsewhere B97.89 ; Acute upper respiratory infection, unspecified J06.9 ; Acute recurrent maxillary sinusitis J01.01 ; Sore throat J02.9 and Headache R51 [place] [address] [address] Jun, Right lower quadrant abdomin al pain R10.31 and Type 2 diabetes 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 E11.8 [place] [address] [address] May, Diabetic neuropathy, painful E11.40 [place] [address] [address] 06 May, 2017 COPD exacerbation J44.1 and Type 2 diabetes 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 E11.8 [place] [address] [place] [id number] [address] [place] [address] Apr, Diabetic neuropathy, painful E11.40 [place] [address] [address] Apr, Diabetic neuropathy, painful E11.40 [facility] [address] [address] Mar, Bronchitis J40 [place] [address] [address] January, Type 2 diabetes mellitus wit h complication E11.8 ; Diabetic neuropathy, painful E11.40 ; Impotence N52.9 ; Coronary atherosclerosis due to lipid rich plaque I25.83 ; senior care 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.4 ; Interstitial lung disease J84.9 ; Hypoxia R09.02 ; Essential hypertension I10 ; Gastroesophageal reflux disease without esophagitis K21.9 ; Left upper arm pain M79.622 and Cervical spinal stenosis M48.02 [facility] [place] [address] [address] January, Viral gastroenteritis A08.4 [place] [address] [address] Dec, Diabetic neuropathy, painful E11.40 [facility] [address] [place] [id number] [place] [id number] Oct, [place] [address] [address] Oct, Acute right-sided weakness M 62.89 and Slurring of speech R47.81 [place] [address] [address] Sep, Type 2 diabetes mellitus wit h complication E11.8 ; Diabetic neuropathy, painful E11.40 ; Impotence N52.9 ; Coronary atherosclerosis due to lipid rich plaque I25.83 ; manager terminal 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.4 ; Interstitial lung disease J84.9 ; Hypoxia R09.02 ; Essential hypertension I10 and Gastroesophageal reflux disease without esophagitis K21.9 [facility] [address] [facility] [id number] [address] [place] [address] Sep, Bronchitis J40 [facility] [address] [facility] [id number] [address] [place] [address] Aug, Gastroenteritis and colitis, viral A08.4 [facility] [address] [facility] [id number] [address] [place] [address] Aug, [facility] [address] [facility] [id number] [address] [place] [address] Jun, Type 2 diabetes mellitus wit h complication E11.8 ; Diabetic neuropathy, painful E11.40 ; Impotence N52.9 ; Coronary atherosclerosis due to lipid rich plaque I25.83 ; senior care 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.4 ; Interstitial lung disease J84.9 ; Hypoxia R09.02 and Essential hypertension I10 [facility] [address] [facility] [id number] [address] [place] [address] 30 May, 2016 Bronchitis J40 [facility] [address] [facility] [id number] [address] [place] [address] 29 May, 2016 [place] [address] [facility] [id number] [address] [place] [address] May, Pain of right upper extremit y M79.601 [place] [address] [facility] [id number] [address] [place] [address] May, [place] [address] [facility] [id number] [address] [place] [address] 15 May, 2016 [place] [address] [facility] [id number] [address] [place] [address] 07 May, 2016 Right hand pain M79.641 [place] [address] [facility] [id number] [address] [place] [address] Apr, [place] [address] [place] [id number] [address] [place] [address] Apr, [facility] [address] [facility] [id number] [address] [place] [address] Mar, [facility] [address] [facility] [id number] [address] [place] [address] Mar, Essential hypertension I10 [facility] [address] [facility] [id number] [address] [place] [address] Feb, [facility] [address] [facility] [id number] [address] [place] [address] Feb, Interstitial lung disease J8 4.9 and Bronchitis J40 [place] [address] [facility] [id number] [address] [place] [address] Feb, [place] [address] [facility] [id number] [address] [place] [address] Feb, Type 2 diabetes mellitus wit h complication E11.8 ; Impotence N52.9 ; Coronary atherosclerosis due to lipid rich plaque I25.83 ; senior care 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.4 and Diabetic neuropathy, painful E11.40 [place] [address] [place] [address] January, [place] [address] [place] [address] January, Arm paresthesia, right R20.2 and Pain of right upper extremity M79.601 [place] [address] [place] [address] Dec, Lumbar strain S39.012A [place] [address] [facility] [id number] [address] [place] [address] Nov, Diabetic neuropathy, painful E11.40 ; Respiratory bronchiolitis interstitial lung disease J84.115 ; Pain of right upper extremity M79.601 and Arm paresthesia, right R20.2 [place] [address] [place] [id number] [address] [place] [address] Nov, Diabetic neuropathy, painful E11.[address] [address] Sep, Type 2 diabetes mellitus wit h complication E11.8 ; Impotence N52.9 ; Coronary atherosclerosis due to lipid rich plaque I25.83 ; senior care 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.4 ; Diabetic neuropathy, painful E11.40 ; Chest pain R07.9 and Restless leg G25.[address] [address] Sep, [address] [address] Jul, COPD (chronic obstructive pu lmonary disease) with acute bronchitis J44.[address] [address] Jun, Abdominal pain R10.9 ; Famil y history of colon cancer Z80.0 and Diverticulitis K57.[address] [address] Jun, Abdominal pain R10.9 and Div erticulitis K57.[address] [address] Apr, Diabetes with other specifie d manifestations, type II or unspecified type, not stated as uncontrolled 250.80 ; Coronary atherosclerosis of unspecified type of vessel, [place] or graft 414.00 ; Unspecified essential hypertension 401.9 ; Impotence of organic origin 607.84 ; Sleep apnea 780.57 and Interstitial lung disease [address] [address] Dec, [address] [address] Dec, [address] [address] Nov, [address] [address] Nov, [facility] [address] [id number] [address] [place] [address], [place] [address] Nov, [facility] [address] [id number] [address] [place] [address], [place] [address] Nov, [facility] [address] [id number] [address] [place] [address], [place] [address] Nov, [facility] [address] [id number] [address] [place] [address], [place] [address] Nov, [facility] [address] [id number] [address] [place] [address], [place] [address] Nov, [facility] [address] [id number] [address] [place] [address], [place] [address] Nov, [facility] [address] [id number] [address] [place] [address], [place] [address] Nov, [facility] [address] [id number] [address] [place] [address], [place] [address] Nov, [facility] [address] [id number] [address] [place] [address], [place] [address] Oct, 2014 [facility] [address] [id number] [address] [place] [address], [place] [address] Oct, 2014 [facility] [address] [id number] [address] [place] [address], [place] [address] Oct, 2014 [facility] [address] [id number] [address] [place] [address], [place] [address] Oct, 2014 [facility] [address] [id number] [address] [place] [address], [place] [address] Oct, 2014 [facility] [address] [id number] [address] [place] [address], [place] [address] Oct, 2014 [facility] [address] [id number] [address] [place] [address], [place] [address] Oct, 2014 [facility] [address] [id number] [address] [place] [address], [place] [address] 04 Oct, 2014 [facility] [address] [id number] [address] [place] [address], [place] [address] Oct, 2014 [facility] [address] [id number] [address] [place] [address], [place] [address] Oct, 2014 [facility] [address] [id number] [address] [place] [address], [place] [address] Oct, 2014 [facility] [address] [id number] [address] [place] [address], [place] [address] Jul, [facility] [address] [id number] [address] [place] [address], [place] [address] Jul, [facility] [address] [id number] [address] [place] [address], [place] [address] 29 Jun, 2014 [facility] [address] [id number] [address] [place] [address], [place] [address] 29 Jun, 2014 [facility] [address] [id number] [address] [place] [address], [place] [address] 17 Jun, 2014 [facility] [address] [id number] [address] [place] [address], [place] [address] 17 Jun, 2014 [facility] [address] [id number] [address] [place] [address], [place] [address] 15 Jun, 2014 [facility] [address] [id number] [address] [place] [address], [place] [address] 15 Jun, 2014 [facility] [address] [id number] [address] [place] [address], [place] [address] 14 Jun, 2014 [facility] [address] [id number] [address] [place] [address], [place] [address] 14 Jun, 2014 [facility] [address] [id number] [address] [place] [address], [place] [address] 13 Jun, 2014 [facility] [address] [id number] [address] [place] [address], [place] [address] Jun, [facility] [address] [id number] [address] [place] [address], [place] [address] 08 Jun, 2014 [facility] [address] [id number] [address] [place] [address], [place] [address] 08 Jun, 2014 [facility] [address] [id number] [address] [place] [address], [place] [address] Jun, [facility] [address] [id number] [address] [place] [address], [place] [address] Jun, [facility] [address] [id number] [address] [place] [address], [place] [address] 30 May, 2014 [facility] [address] [id number] [address] [place] [address], [place] [address] 30 May, 2014 [facility] [address] [id number] [address] [place] [address], [place] [address] May, [facility] [address] [id number] [address] [place] [address], [place] [address] May, [facility] [address] [id number] [address] [place] [address], [place] [address] 05 May, 2014 [facility] [address] [id number] [address] [place] [address], [place] [address] 05 May, 2014 [facility] [address] [id number] [address] [place] [address], [place] [address] Apr, [facility] [address] [id number] [address] [place] [address], [place] [address] Apr, [facility] [address] [id number] [address] [place] [address], [place] [address] Apr, [facility] [address] [id number] [address] [place] [address], [place] [address] Apr, [facility] [address] [id number] [address] [place] [address], [place] [address] Apr, [facility] [address] [id number] [facility] [place] [address] Apr, [facility] [address] [id number] [address] [place] [address], [place] [address] Apr, [facility] [address] [id number] [address] [place] [address], [place] [address] Apr, [facility] [address] [id number] [address] [place] [address], [place] [address] Apr, [facility] [address] [id number] [address] [place] [address], [place] [address] Apr, [facility] [address] [id number] [address] [place] [address], [place] [address] Apr, [facility] [address] [id number] [address] [place] [address], [place] [address] Apr, [facility] [address] [id number] [address] [place] [address], [place] [address] Mar, [facility] [address] [id number] [address] [place] [address], [place] [address] Mar, [facility] [address] [id number] [address] [place] [address], [place] [address] Mar, [facility] [address] [id number] [address] [place] [address], [place] [address] Mar, [facility] [address] [id number] [address] [place] [address], [place] [address] Mar, [facility] [address] [id number] [address] [place] [address], [place] [address] Mar, [facility] [address] [id number] [address] [place] [address], [place] [address] Mar, [facility] [address] [id number] [address] [place] [address], [place] [address] Mar, [facility] [address] [id number] [address] [place] [address], [place] [address] Mar, [facility] [address] [id number] [facility] [place] [address] Mar, [facility] [address] [id number] [address] [place] [address], [place] [address] Mar, [facility] [address] [id number] [address] [place] [address], [place] [address] Feb, [facility] [address] [id number] [address] [place] [address], [place] [address] Feb, [facility] [address] [id number] [address] [place] [address], [place] [address] Feb, [facility] [address] [id number] [address] [place] [address], [place] [address] Feb, [facility] [address] [id number] [address] [place] [address], [place] [address] Feb, [facility] [address] [id number] [address] [place] [address], [place] [address] Feb, [facility] [address] [id number] [address] [place] [address], [place] [address] Feb, [facility] [address] [id number] [address] [place] [address], [place] [address] Feb, [facility] [address] [id number] [address] [place] [address], [place] [address] Feb, [facility] [address] [id number] [address] [place] [address], [place] [address] Feb, [facility] [address] [id number] [address] [place] [address], [place] [address] January, [facility] [address] [id number] [address] [place] [address], [place] [address] January, [facility] [address] [id number] [address] [place] [address], [place] [address] January, [facility] [address] [id number] [address] [place] [address], [place] [address] January, [facility] [address] [id number] [facility] [place] [address] January, [facility] [address] [id number] [address] [place] [address], [place] [address] January, [facility] [address] [id number] [address] [place] [address], [place] [address] January, [facility] [address] [id number] [address] [place] [address], [place] [address] January, [facility] [address] [id number] [address] [place] [address], [place] [address] January, [facility] [address] [id number] [address] [place] [address], [place] [address] January, [facility] [address] [id number] [address] [place] [address], [place] [address] January, [facility] [address] [id number] [address] [place] [address], [place] [address] January, [facility] [address] [id number] [address] [place] [address], [place] [address] January, [facility] [address] [id number] [address] [place] [address], [place] [address] January, [facility] [address] [id number] [address] [place] [address], [place] [address] January, [facility] [address] [id number] [address] [place] [address], [place] [address] January, [facility] [address] [id number] [address] [place] [address], [place] [address] Dec, [facility] [address] [id number] [address] [place] [address], [place] [address] Dec, [facility] [address] [id number] [address] [place] [address], [place] [address] Dec, [facility] [address] [id number] [address] [place] [address], [place] [address] 17 Dec, 2013 [facility] [address] [id number] [address] [place] [address], [place] [address] Dec, [facility] [address] [id number] [address] [place] [address], [place] [address] Dec, [facility] [address] [id number] [address] [place] [address], [place] [id number] Dec, [facility] [address] [id number] [address] [place] [address], [place] [address] Dec, [facility] [address] [id number] [address] [place] [address], [place] [id number] Dec, [facility] [address] [id number] [address] [place] [address], [place] [address] Dec, [facility] [address] [id number] [address] [place] [address], [place] [address] Nov, [facility] [address] [id number] [address] [place] [address], [place] [id number] Nov, [facility] [address] [id number] [address] [place] [address], [place] [address] Oct, [facility] [address] [id number] [address] [place] [address], [place] [id number] Oct, [facility] [address] [id number] [address] [place] [address], [place] [id number] Oct, [facility] [address] [id number] [address] [place] [address], [place] [id number] Sep, [facility] [address] [id number] [address] [place] [address], [place] [address] Sep, [facility] [address] [id number] [address] [place] [address], [place] [address] Sep, [facility] [address] [id number] [address] [place] [address], [place] [address] Sep, [facility] [address] [id number] [address] [place] [address], [place] [address] Sep, [facility] [address] [id number] [address] [place] [address], [place] [address] Sep, [facility] [address] [id number] [address] [place] [address], [place] [address] Sep, [facility] [address] [id number] [address] [place] [address], [place] [address] Sep, [facility] [address] [id number] [address] [place] [address], [place] [address] Sep, [facility] [address] [id number] [address] [place] [address], [place] [address] Sep, [facility] [address] [id number] [address] [place] [address], [place] [address] Sep, [facility] [address] [id number] [address] [place] [address], [place] [address] Sep, [facility] [address] [id number] [address] [place] [address], [place] [address] Aug, [facility] [address] [id number] [address] [place] [address], [place] [address] Aug, [facility] [address] [id number] [address] [place] [address], [place] [address] Aug, [facility] [address] [id number] [address] [place] [address], [place] [address] Aug, [facility] [address] [id number] [address] [place] [address], [place] [id number] Jul, [facility] [address] [id number] [address] [place] [address], [place] [address] Jul, [facility] [address] [id number] [address] [place] [address], [place] [address] Jun, [facility] [address] [id number] [address] [place] [address], [place] [id number] 30 Jun, 2013 [facility] [address] [id number] [address] [place] [address], [place] [address] Jun, [facility] [address] [id number] [address] [place] [address], [place] [address] Jun, [facility] [address] [id number] [address] [place] [address], [place] [address] Jun, [facility] [address] [id number] [address] [place] [address], [place] [address] Jun, [facility] [address] [id number] 05 [place] [address], [place] [id number] Jun, [facility] [address] [id number] [address] [place] [address], [place] [id number] Jun, [facility] [address] [id number] [address] [place] [address], [place] [id number] 24 May, 2012 [facility] [address] [id number] [address] [place] [address], [place] [id number] 23 May, 2012 [facility] [address] [id number] [address] [place] [address], [place] [id number] 18 May, 2012 [facility] [address] [id number] [address] [place] [address], [place] [id number] 13 May, 2012 [facility] [address] [id number] [address] [place] [address], [place] [id number] 11 May, 2012 [facility] [address] [id number] [address] [place] [address], [place] [id number] 06 May, 2012 [facility] [address] [id number] [address] [place] [address], [place] [id number] 03 May, 2012 [facility] [address] [id number] [address] [place] [address], [place] [id number] 30 Apr, 2013 [facility] [address] [id number] [address] [place] [address], [place] [id number] Apr, [facility] [address] [id number] [address] [place] [address], [place] [id number] Apr, [facility] [address] [id number] [address] [place] [address], [place] [id number] Apr, [facility] [address] [id number] [address] [place] [address], [place] [id number] Apr, [facility] [address] [id number] [address] [place] [address], [place] [id number] Apr, [facility] [address] [id number] [address] [place] [address], [place] [address] Apr, [facility] [address] [id number] [address] [place] [address], [place] [id number] Mar, [facility] [address] [id number] [address] [place] [address], [place] [id number] Mar, [facility] [address] [id number] [address] [place] [address], [place] [id number] Mar, [facility] [address] [id number] [address] [place] [address], [place] [id number] Mar, [facility] [address] [id number] [address] [place] [address], [place] [id number] Mar, [facility] [address] [id number] [address] [place] [address], [place] [id number] Mar, [facility] [address] [id number] [address] [place] [address], [place] [phone] Mar, [facility] [address] [id number] [address] [place] [address], [place] [id number] Mar, [facility] [address] [id number] [address] [place] [address], [place] [id number] Feb, [facility] [address] [id number] [address] [place] [address], [place] [id number] Feb, [facility] [address] [id number] [address] [place] [address], [place] [id number] Feb, [facility] [address] [id number] [address] [place] [address], [place] [id number] January, [facility] [address] [id number] [address] [place] [address], [place] [id number] January, [facility] [address] [id number] [address] [place] [address], [place] [id number] January, [facility] [address] [id number] [address] [place] [address], [place] [id number] January, [facility] [address] [id number] [address] [place] [address], [place] [id number] January, [facility] [address] [id number] [address] [place] [address], [place] [id number] January, [facility] [address] [id number] [address] [place] [address], [place] [phone] January, [facility] [address] [id number] [address] [place] [address], [place] [id number] January, [facility] [address] [id number] [address] [place] [address], [place] [id number] Dec, [facility] [address] [id number] [address] [place] [address], [place] [id number] Dec, [facility] [address] [id number] [address] [place] [address], [place] [id number] Dec, [facility] [address] [id number] [address] [place] [address], [place] [id number] Dec, [facility] [address] [id number] [address] [place] [address], [place] [phone] Dec, [facility] [address] [id number] [address] [place] [address], [place] [phone] Nov, [facility] [address] [id number] [address] [place] [address], [place] [id number] Nov, [facility] [address] [id number] [address] [place] [address], [place] [id number] 19 Nov, 2012 [facility] [address] [id number] [address] [place] [address], [place] [id number] 18 Nov, 2012 [facility] [address] [id number] [address] [place] [address], [place] [id number] 18 Nov, 2012 [facility] [address] [id number] [address] [place] [address], [place] [id number] 14 Nov, 2012 [facility] [address] [id number] [address] [place] [address], [place] [id number] 11 Nov, 2012 [facility] [address] [id number] [address] [place] [address], [place] [id number] 11 Nov, 2012 [facility] [address] [id number] [address] [place] [address], [place] [id number] 21 Oct, 2012 [facility] [address] [id number] [address] [place] [address], [place] [id number] 21 Oct, 2012 [facility] [address] [id number] [address] [place] [address], [place] [id number] 12 Oct, 2012 [facility] [address] [id number] [address] [place] [address], [place] [id number] 08 Oct, 2012 [facility] [address] [id number] [address] [place] [address], [place] [id number] 07 Oct, 2012 [facility] [address] [id number] [address] [place] [address], [place] [id number] 07 Oct, 2012 [facility] [address] [id number] [address] [place] [address], [place] [id number] 05 Oct, 2012 [facility] [address] [id number] [address] [place] [address], [place] [id number] 04 Oct, 2012 [facility] [address] [id number] [address] [place] [address], [place] [id number] 04 Oct, 2012 [facility] [address] [id number] [address] [place] [address], [place] [phone] Sep, [facility] [address] [id number] [address] [place] [address], [place] [id number] Sep, [facility] [address] [id number] [address] [place] [address], [place] [id number] Sep, [facility] [address] [id number] [address] [place] [address], [place] [id number] Sep, [facility] [address] [id number] [address] [place] [address], [place] [id number] Sep, [facility] [address] [id number] [address] [place] [address], [place] [id number] Sep, [facility] [address] [id number] [address] [place] [address], [place] [id number] Aug, [facility] [address] [id number] [address] [place] [address], [place] [id number] Aug, [facility] [address] [id number] [address] [place] [address], [place] [id number] Aug, [facility] [address] [id number] [address] [place] [address], [place] [id number] Aug, [facility] [address] [id number] [address] [place] [address], [place] [id number] Aug, [facility] [address] [id number] [address] [place] [address], [place] [id number] Aug, [facility] [address] [id number] [address] [place] [address], [place] [id number] 13 Aug, 2012 [facility] [address] [id number] [address] [place] [address], [place] [id number] Aug, [facility] [address] [id number] [address] [place] [address], [place] [id number] Aug, [facility] [address] [id number] [address] [place] [address], [place] [id number] 30 Jul, 2012 [facility] [address] [id number] [address] [place] [id number] Jul, [facility] [address] [id number] [address] [place] [phone] Jul, [facility] [address] [id number] [address] [place] [id number] Jul, [facility] [address] [facility] [id number] [address] [place] [id number] Nov, [facility] [address] [facility] [id number] [address] [place] [phone] Sep, [facility] [address] [facility] [id number] [address] [place] [phone] Aug, [facility] [address] [facility] [id number] [address] [place] [phone] Aug, [facility] [address] [facility] [id number] [address] [place] [phone] Aug, [facility] [address] [facility] [id number] [address] [place] [id number] Jul, IMMUNIZATIONS No Known Immunizations SOCIAL HISTORY [...] 05/2005 Surgical History Right Rotator Cuff Repair [facility] 06/2016 Surgical History Colonoscopy Kido (1 Polyp) repeat 5 year s 2019 2014 Surgical History right rotator cuff surgery 06/27/2016 Hospitalization History Overdosed on Clonazepam #35. Lori mcduffiee 03/2014 Hospitalization History Overdosed on Xanax 07/2012 Hospitalization History Hypostension-medication side effect-[facility]ia [facility] 03/13/16
--- OUTSIDE RECORDS SUMMARY | 2019-09-11 12:31 | XMS REPORT ---
Author Author Miguel VERDUZCO Organization [facility] Address [address] [place] [address] Care Team Providers Care Professor Of Nursing Name Role Phone JOSE VERDUZCO Unavailable PROBLEMS Type Condition ICD9-CM Code [id number] Code Onset Dates Condition S tatus SNOMED Code Problem Neuropathy G62.9 Active 581715505 Problem Essential hypertension I10 Active 14479134 Problem long-term 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.4 Active 140635651 Problem Abdominal pain R10.9 Active 89601 001 Problem Change in bowel habit R19.4 Active 62942570 Problem Coronary atherosclerosis due to lipid rich plaque I25.83 Active 53449531 Problem Type 2 diabetes 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 E11.8 Active 01376913 Problem Impotence N52.9 Active 256459634 Problem Family history of colon cancer Z80.0 Active 476640319 Problem Diabetic neuropathy, painful E11.40 A ctive 525131284 Problem Arm paresthesia, right R20.2 Active 61215557 Problem Gastroesophageal reflux disease without esophagitis K21.9 Active 141053517 Problem Drug abuse, opioid type F11.10 Active 1694644 Problem COPD exacerbation J44.1 Active 19 5635809 Problem Obstructive sleep apnea syndrome G47.33 Active 53672851 Problem Diverticulitis K57.92 Active 96812 6006 Problem Pain of right upper extremity M79.601 Active 210725048 Problem Respiratory bronchiolitis interstitial lung disease J84.115 Active 795631166 Problem Hypoxia R09.02 Active 776695707 Problem Interstitial lung disease J84.9 Acti ve [id number] ALLERGIES No Information ENCOUNTERS Encounter Location Date Diagnosis [facility] [address] [facility] [id number] [address] [place] [address] Aug, [facility] [address] [facility] [id number] [address] [place] [address] Aug, Diabetic neuropathy, painful E11.40 ; Interstitial lung disease J84.9 ; Chronic cough R05 ; Type 2 diabetes 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 E11.8 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 [facility] [address] [facility] [id number] [address] [place] [phone] Jul, [facility] [address] [facility] [id number] [address] [place] [address] Jul, [facility] [address] [place] [id number] [place] [address] Jul, Diabetic neuropathy, painful E11.40 [place] [address] [address] Jul, Type 2 diabetes mellitus wit h complication E11.8 [facility] [address] [place] [id number] [place] [address] Jun, Diabetic neuropathy, painful E11.40 [facility] [address] [address] Jun, [facility] [address] [address] Jun, Type 2 diabetes mellitus wit h complication E11.8 ; Other viral agents as the cause of diseases classified elsewhere B97.89 ; Acute upper respiratory infection, unspecified J06.9 ; Acute recurrent maxillary sinusitis J01.01 ; Sore throat J02.9 and Headache R51 [facility] [id number] [place] [address] Jun, Right lower quadrant abdomin al pain R10.31 and Type 2 diabetes 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 E11.8 [place] [address] [place] [id number] [place] [address] May, Diabetic neuropathy, painful E11.40 [facility] [address] [place] [id number] [address] [place] [address] 06 May, 2017 COPD exacerbation J44.1 and Type 2 diabetes 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 E11.8 [facility] [address] [place] [id number] [address] [place] [address] Apr, Diabetic neuropathy, painful E11.40 [place] [address] [address] Apr, Diabetic neuropathy, painful E11.40 [facility] [place] [address] [address] Mar, Bronchitis J40 [place] [address] [address] January, Type 2 diabetes mellitus wit h complication E11.8 ; Diabetic neuropathy, painful E11.40 ; Impotence N52.9 ; Coronary atherosclerosis due to lipid rich plaque I25.83 ; 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 ; Interstitial lung disease J84.9 ; Hypoxia R09.02 ; Essential hypertension I10 ; Gastroesophageal reflux disease without esophagitis K21.9 ; Left upper arm pain M79.622 and Cervical spinal stenosis M48.02 [facility] [place] [address] [address] January, Viral gastroenteritis A08.4 [place] [address] [address] Dec, Diabetic neuropathy, painful E11.40 [place] [address] [place] [id number] [place] [id number] Oct, [place] [address] [address] Oct, Acute right-sided weakness M 62.89 and Slurring of speech R47.81 [place] [address] [address] Sep, Type 2 diabetes mellitus wit h complication E11.8 ; Diabetic neuropathy, painful E11.40 ; Impotence N52.9 ; Coronary atherosclerosis due to lipid rich plaque I25.83 ; long-term 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.4 ; Interstitial lung disease J84.9 ; Hypoxia R09.02 ; Essential hypertension I10 and Gastroesophageal reflux disease without esophagitis K21.9 [facility] [address] [facility] [id number] [address] [place] [address] Sep, Bronchitis J40 [facility] [address] [facility] [id number] [address] [place] [address] Aug, Gastroenteritis and colitis, viral A08.4 [facility] [address] [facility] [id number] [address] [place] [address] Aug, [facility] [address] [facility] [id number] [address] [place] [address] Jun, Type 2 diabetes mellitus wit h complication E11.8 ; Diabetic neuropathy, painful E11.40 ; Impotence N52.9 ; Coronary atherosclerosis due to lipid rich plaque I25.83 ; long-term 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.4 ; Interstitial lung disease J84.9 ; Hypoxia R09.02 and Essential hypertension I10 [facility] [address] [facility] [id number] [address] [place] [address] 30 May, 2016 Bronchitis J40 [facility] [address] [facility] [id number] [address] [place] [address] 29 May, 2016 [facility] [address] [facility] [id number] [address] [place] [address] May, Pain of right upper extremit y M79.601 [facility] [address] [facility] [id number] [address] [place] [address] May, [facility] [address] [facility] [id number] [address] [place] [address] 15 May, 2016 [facility] [address] [facility] [id number] [address] [place] [address] 07 May, 2016 Right hand pain M79.641 [facility] [address] [facility] [id number] [address] [place] [address] Apr, [facility] [address] [facility] [id number] [address] [place] [address] Apr, [facility] [address] [id number] [address] [place] [address] Mar, [facility] [address] [facility] [id number] [address] [place] [address] Mar, Essential hypertension I10 [facility] [address] [facility] [id number] [address] [place] [address] Feb, [facility] [address] [facility] [id number] [address] [place] [address] Feb, Interstitial lung disease J8 4.9 and Bronchitis J40 [place] [address] [facility] [id number] [address] [place] [address] Feb, [place] [address] [facility] [id number] [address] [place] [address] Feb, Type 2 diabetes mellitus wit h complication E11.8 ; Impotence N52.9 ; Coronary atherosclerosis due to lipid rich plaque I25.83 ; 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 and Diabetic neuropathy, painful E11.40 [place] [address] [facility] [id number] [address] [place] [address] January, [place] [address] [facility] [id number] [address] [place] [address] January, Arm paresthesia, right R20.2 and Pain of right upper extremity M79.601 [place] [address] [facility] [id number] [address] [place] [address] Dec, Lumbar strain S39.012A [place] [address] [facility] [id number] [address] [place] [address] Nov, Diabetic neuropathy, painful E11.40 ; Respiratory bronchiolitis interstitial lung disease J84.115 ; Pain of right upper extremity M79.601 and Arm paresthesia, right R20.2 [place] [address] [facility] [id number] [address] [place] [address] Nov, Diabetic neuropathy, painful E11.40 [facility] [address] Sep, Type 2 diabetes mellitus wit h complication E11.8 ; Impotence N52.9 ; Coronary atherosclerosis due to lipid rich plaque I25.83 ; long-term 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.4 ; Diabetic neuropathy, painful E11.40 ; Chest pain R07.9 and Restless leg G25.[address] [address] Sep, [address] [address] Jul, COPD (chronic obstructive pu lmonary disease) with acute bronchitis J44.[address] [address] Jun, Abdominal pain R10.9 ; Famil y history of colon cancer Z80.0 and Diverticulitis K57.[address] [address] Jun, Abdominal pain R10.9 and Div erticulitis K57.[address] [address] Apr, Diabetes with other specifie d manifestations, type II or unspecified type, not stated as uncontrolled 250.80 ; Coronary atherosclerosis of unspecified type of vessel, jackson or graft 414.00 ; Unspecified essential hypertension 401.9 ; Impotence of organic origin 607.84 ; Sleep apnea 780.57 and Interstitial lung disease [address] [address] Dec, [address] [address] Dec, [address] [address] Nov, [address] [address] Nov, [facility] [address] [id number] [address] [place] [address], [place] [address] Nov, [facility] [address] [id number] [address] [place] [address], [place] [address] Nov, [facility] [address] [id number] [address] [place] [address], [place] [address] Nov, [facility] [address] [id number] [address] [place] [address], [place] [address] Nov, [facility] [address] [id number] [address] [place] [address], [place] [address] Nov, [facility] [address] [id number] [address] [place] [address], [place] [address] Nov, [facility] [address] [id number] [address] [place] [address], [place] [address] Nov, [facility] [address] [id number] [address] [place] [address], [place] [address] Nov, [facility] [address] [id number] [address] [place] [address], [place] [address] Oct, [facility] [address] [id number] [address] [place] [address], [place] [address] Oct, 2014 [facility] [address] [id number] [address] [place] [address], [place] [address] Oct, 2014 [facility] [address] [id number] [address] [place] [phone] Oct, 2014 [facility] [address] [id number] [address] [place] [address], [place] [address] Oct, 2014 [facility] [address] [id number] [address] [place] [address], [place] [address] Oct, 2014 [facility] [address] [id number] [address] [place] [address], [place] [address] Oct, 2014 [facility] [address] [id number] [address] [place] [address], [place] [address] 04 Oct, 2014 [facility] [address] [id number] [address] [place] [address], [place] [address] Oct, 2014 [facility] [address] [id number] [address] [place] [address], [place] [address] Oct, 2014 [facility] [address] [id number] [address] [place] [address], [place] [address] Oct, 2014 [facility] [address] [id number] [address] [place] [address], [place] [address] Jul, [facility] [address] [id number] [address] [place] [address], [place] [address] Jul, [facility] [address] [id number] [address] [place] [address], [place] [address] Jun, [facility] [address] [id number] [address] [place] [address], [place] [address] 29 Jun, 2014 [facility] [address] [id number] [address] [place] [address], [place] [address] Jun, [facility] [address] [id number] [address] [place] [address], [place] [address] 17 Jun, 2014 [facility] [address] [id number] [address] [place] [address], [place] [address] 15 Jun, 2014 [facility] [address] [id number] [address] [place] [address], [place] [address] 15 Jun, 2014 [facility] [address] [id number] [address] [place] [address], [place] [address] 14 Jun, 2014 [facility] [address] [id number] [address] [place] [address], [place] [address] 14 Jun, 2014 [facility] [address] [id number] [address] [place] [address], [place] [address] 13 Jun, 2014 [facility] [address] [id number] [address] [place] [address], [place] [address] Jun, [facility] [address] [id number] [address] [place] [address], [place] [address] 08 Jun, 2014 [facility] [address] [id number] [address] [place] [address], [place] [address] 08 Jun, 2014 [facility] [address] [id number] [address] [place] [address], [place] [address] Jun, [facility] [address] [id number] [address] [place] [address], [place] [address] Jun, [facility] [address] [id number] [address] [place] [address], [place] [address] 30 May, 2014 [facility] [address] [id number] [address] [place] [address], [place] [address] 30 May, 2014 [facility] [address] [id number] [address] [place] [address], [place] [address] May, [facility] [address] [id number] [address] [place] [address], [place] [address] May, [facility] [address] [id number] [address] [place] [address], [place] [address] 05 May, 2014 [facility] [address] [id number] [address] [place] [address], [place] [address] 05 May, 2014 [facility] [address] [id number] [address] [place] [address], [place] [address] Apr, [facility] [address] [id number] [address] [place] [address], [place] [address] Apr, [facility] [address] [id number] [address] [place] [address], [place] [address] Apr, [facility] [address] [id number] [address] [place] [address], [place] [address] Apr, [facility] [address] [id number] [address] [place] [address], [place] [address] Apr, [facility] [address] [id number] [address] [place] [address], [place] [address] Apr, [facility] [address] [id number] [facility] [place] [address] Apr, [facility] [address] [id number] [facility] [place] [address] Apr, [facility] [address] [id number] [facility] [place] [address] Apr, [facility] [address] [id number] [address] [place] [address], [place] [address] Apr, [facility] [address] [id number] [address] [place] [address], [place] [address] Apr, [facility] [address] [id number] [address] [place] [address], [place] [address] Apr, [facility] [address] [id number] [address] [place] [address], [place] [address] Mar, [facility] [address] [id number] [address] [place] [address], [place] [address] Mar, [facility] [address] [id number] [address] [place] [address], [place] [address] Mar, [facility] [address] [id number] [address] [place] [address], [place] [address] Mar, [facility] [address] [id number] [address] [place] [address], [place] [address] Mar, [facility] [address] [id number] [address] [place] [address], [place] [address] Mar, [facility] [address] [id number] [address] [place] [address], [place] [address] Mar, [facility] [address] [id number] [address] [place] [address], [place] [address] Mar, [facility] [address] [id number] [address] [place] [address], [place] [address] Mar, [facility] [address] [id number] [facility] [place] [address] Mar, [facility] [address] [id number] [facility] [place] [address] Mar, [facility] [address] [id number] [facility] [place] [address] Feb, [facility] [address] [id number] [facility] [place] [address] Feb, [facility] [address] [id number] [address] [place] [address], [place] [address] Feb, [facility] [address] [id number] [address] [place] [address], [place] [address] Feb, [facility] [address] [id number] [address] [place] [address], [place] [address] Feb, [facility] [address] [id number] [address] [place] [address], [place] [address] Feb, [facility] [address] [id number] [address] [place] [address], [place] [address] Feb, [facility] [address] [id number] [address] [place] [address], [place] [address] Feb, [facility] [address] [id number] [address] [place] [address], [place] [address] Feb, [facility] [address] [id number] [address] [place] [address], [place] [address] Feb, [facility] [address] [id number] [address] [place] [address], [place] [address] January, [facility] [address] [id number] [address] [place] [address], [place] [address] January, [facility] [address] [id number] [address] [place] [address], [place] [address] January, [facility] [address] [id number] [address] [place] [address], [place] [address] January, [facility] [address] [id number] [facility] [place] [address] January, [facility] [address] [id number] [address] [place] [address], [place] [address] January, [facility] [address] [id number] [address] [place] [address], [place] [address] January, [facility] [address] [id number] [address] [place] [address], [place] [address] January, [facility] [address] [id number] [address] [place] [address], [place] [address] January, [facility] [address] [id number] [address] [place] [address], [place] [address] January, [facility] [address] [id number] [address] [place] [address], [place] [address] January, [facility] [address] [id number] [address] [place] [address], [place] [address] January, [facility] [address] [id number] [address] [place] [address], [place] [address] January, [facility] [address] [id number] [address] [place] [address], [place] [address] January, [facility] [address] [id number] [address] [place] [address], [place] [address] January, [facility] [address] [id number] [address] [place] [address], [place] [address] January, [facility] [address] [id number] [address] [place] [address], [place] [address] Dec, [facility] [address] [id number] [address] [place] [address], [place] [address] Dec, [facility] [address] [id number] [address] [place] [address], [place] [address] Dec, [facility] [address] [id number] [address] [place] [address], [place] [address] 17 Dec, 2013 [facility] [address] [id number] [address] [place] [address], [place] [address] Dec, [facility] [address] [id number] [address] [place] [address], [place] [address] Dec, [facility] [address] [id number] [address] [place] [address], [place] [address] Dec, [facility] [address] [id number] [address] [place] [address], [place] [address] Dec, [facility] [address] [id number] [address] [place] [address], [place] [address] Dec, [facility] [address] [id number] [address] [place] [address], [place] [address] Dec, [facility] [address] [id number] [address] [place] [address], [place] [address] Nov, [facility] [address] [id number] [address] [place] [address], [place] [address] Nov, [facility] [address] [id number] [address] [place] [address], [place] [address] Oct, [facility] [address] [id number] [address] [place] [address], [place] [address] Oct, [facility] [address] [id number] [address] [place] [address], [place] [address] Oct, [facility] [address] [id number] [address] [place] [address], [place] [address] Sep, [facility] [address] [id number] [address] [place] [address], [place] [address] Sep, [facility] [address] [id number] [address] [place] [address], [place] [address] Sep, [facility] [address] [id number] [address] [place] [address], [place] [address] Sep, [facility] [address] [id number] [address] [place] [address], [place] [address] Sep, [facility] [address] [id number] [address] [place] [address], [place] [address] Sep, [facility] [address] [id number] [address] [place] [address], [place] [address] Sep, [facility] [address] [id number] [address] [place] [address], [place] [address] Sep, [facility] [address] [id number] [address] [place] [address], [place] [address] Sep, [facility] [address] [id number] [address] [place] [address], [place] [address] Sep, [facility] [address] [id number] [address] [place] [address], [place] [address] Sep, [facility] [address] [id number] [address] [place] [address], [place] [address] Sep, [facility] [address] [id number] [address] [place] [address], [place] [address] Aug, [facility] [address] [id number] [address] [place] [address], [place] [address] Aug, [facility] [address] [id number] [address] [place] [address], [place] [address] Aug, [facility] [address] [id number] 06 [place] [address], [place] [address] Aug, [facility] [address] [id number] [address] [place] [address], [place] [address] Jul, [facility] [address] [id number] [address] [place] [address], [place] [address] Jul, [facility] [address] [id number] [address] [place] [address], [place] [address] Jun, [facility] [address] [id number] [address] [place] [address] [place] [address] 30 Jun, 2013 [facility] [address] [id number] [address] [place] [address], [place] [address] Jun, [facility] [address] [id number] [address] [place] [address], [place] [address] Jun, [facility] [address] [id number] [address] [place] [address], [place] [address] Jun, [facility] [address] [id number] [address] [place] [address], [place] [address] Jun, [facility] [address] [id number] [address] [place] [address], [place] [address] Jun, [facility] [address] [id number] [address] [place] [address], [place] [address] Jun, [facility] [address] [id number] [address] [place] [address], [place] [address] 24 May, 2012 [facility] [address] [id number] [address] [place] [address], [place] [address] 23 May, 2012 [facility] [address] [id number] [address] [place] [address], [place] [address] 18 May, 2012 [facility] [address] [id number] [address] [place] [address], [place] [address] 13 May, 2012 [facility] [address] [id number] [address] [place] [address], [place] [address] 11 May, 2012 [facility] [address] [id number] [address] [place] [address], [place] [address] 06 May, 2012 [facility] [address] [id number] [address] [place] [address], [place] [address] 03 May, 2012 [facility] [address] [id number] [address] [place] [address], [place] [address] 30 Apr, 2013 [facility] [address] [id number] [address] [place] [address], [place] [address] 22 Apr, 2013 [facility] [address] [id number] [address] [place] [address], [place] [address] Apr, [facility] [address] [id number] [address] [place] [address], [place] [address] Apr, [facility] [address] [id number] [address] [place] [address], [place] [address] Apr, [facility] [address] [id number] [address] [place] [address], [place] [address] Apr, [facility] [address] [id number] [address] [place] [address], [place] [address] Apr, [facility] [address] [id number] [address] [place] [address], [place] [address] Mar, [facility] [address] [id number] [address] [place] [address], [place] [address] Mar, [facility] [address] [id number] [address] [place] [address], [place] [address] Mar, [facility] [address] [id number] [address] [place] [address], [place] [address] Mar, [facility] [address] [id number] [address] [place] [address], [place] [address] Mar, [facility] [address] [id number] [address] [place] [address], [place] [address] Mar, [facility] [address] [id number] [address] [place] [address], [place] [address] Mar, [facility] [address] [id number] [address] [place] [address], [place] [address] Mar, [facility] [address] [id number] [address] [place] [address], [place] [address] Feb, [facility] [address] [id number] [address] [place] [address], [place] [address] Feb, [facility] [address] [id number] [address] [place] [address], [place] [address] Feb, [facility] [address] [id number] [address] [place] [address], [place] [address] January, [facility] [address] [id number] [address] [place] [address], [place] [address] January, [facility] [address] [id number] [address] [place] [address], [place] [address] January, [facility] [address] [id number] [address] [place] [address], [place] [address] January, [facility] [address] [id number] [address] [place] [address], [place] [address] January, [facility] [address] [id number] [address] [place] [address], [place] [address] January, [facility] [address] [id number] [address] [place] [address], [place] [address] January, [facility] [address] [id number] [address] [place] [address], [place] [address] January, [facility] [address] [id number] [address] [place] [address], [place] [address] Dec, [facility] [address] [id number] [address] [place] [address], [place] [address] Dec, [facility] [address] [id number] [address] [place] [address], [place] [address] Dec, [facility] [address] [id number] [address] [place] [address], [place] [address] Dec, [facility] [address] [id number] [address] [place] [address], [place] [address] Dec, [facility] [address] [id number] [address] [place] [address], [place] [address] Nov, [facility] [address] [id number] [address] [place] [address], [place] [address] Nov, [facility] [address] [id number] [address] [place] [address], [place] [address] 19 Nov, 2012 [facility] [address] [id number] [address] [place] [address], [place] [address] 18 Nov, 2012 [facility] [address] [id number] [address] [place] [address], [place] [address] 18 Nov, 2012 [facility] [address] [id number] [address] [place] [address], [place] [address] 14 Nov, 2012 [facility] [address] [id number] [address] [place] [address], [place] [address] 11 Nov, 2012 [facility] [address] [id number] [address] [place] [address], [place] [address] 11 Nov, 2012 [facility] [address] [id number] [address] [place] [address], [place] [address] 21 Oct, 2012 [facility] [address] [id number] [address] [place] [address], [place] [address] 21 Oct, 2012 [facility] [address] [id number] [address] [place] [address], [place] [address] 12 Oct, 2012 [facility] [address] [id number] [address] [place] [address], [place] [address] 08 Oct, 2012 [facility] [address] [id number] [address] [place] [address], [place] [address] 07 Oct, 2012 [facility] [address] [id number] [address] [place] [address], [place] [address] 07 Oct, 2012 [facility] [address] [id number] [address] [place] [address], [place] [address] 05 Oct, 2012 [facility] [address] [id number] [address] [place] [address], [place] [address] 04 Oct, 2012 [facility] [address] [id number] [address] [place] [address], [place] [address] 04 Oct, 2012 [facility] [address] [id number] [address] [place] [address], [place] [address] Sep, [facility] [address] [id number] [address] [place] [address], [place] [address] Sep, [facility] [address] [id number] [address] [place] [address], [place] [address] Sep, [facility] [address] [id number] [address] [place] [address], [place] [address] Sep, [facility] [address] [id number] [address] [place] [address], [place] [address] Sep, [facility] [address] [id number] [address] [place] [address], [place] [address] Sep, [facility] [address] [id number] [address] [place] [address], [place] [address] Aug, [facility] [address] [id number] [address] [place] [address], [place] [address] Aug, [facility] [address] [id number] [address] [place] [address], [place] [address] Aug, [facility] [address] [id number] [address] [place] [address], [place] [address] Aug, [facility] [address] [id number] [address] [place] [address], [place] [address] Aug, [facility] [address] [id number] [address] [place] [address], [place] [address] 18 Aug, 2012 [facility] [address] [id number] [address] [place] [address], [place] [address] 13 Aug, 2012 [facility] [address] [id number] [address] [place] [address], [place] [address] Aug, [facility] [address] [id number] [address] [place] [address], [place] [address] Aug, [facility] [address] [id number] [address] [place] [address], [place] [address] Jul, [facility] [address] [id number] [address] [place] [address] Jul, [facility] [address] [id number] [address] [place] [address] Jul, [facility] [address] [id number] [address] [place] [address] Jul, [facility] [address] [id number] [address] [place] [address] Nov, [facility] [address] [id number] [address] [place] [address] Sep, [facility] [address] [id number] [address] [place] [address] Aug, [facility] [address] [id number] [address] [place] [address] Aug, [facility] [address] [id number] [address] [place] [phone] Aug, [facility] [address] [id number] [address] [place] [address] Jul, IMMUNIZATIONS No Known Immunizations SOCIAL HISTORY Never Assessed REASON FOR VISIT PLAN OF CARE VITAL SIGNS Height 74 in 2014-06-22 Weight 250 lbs 2014-06-22 Temperature 98.2 degrees Fahrenheit 2014-06-22 Heart Rate 90 bpm 2014-06-22 Respiratory Rate 20 2014-06-22 Blood pressure systolic 118 mmHg 2014-06-22 Blood pressure diastolic 72 mmHg 2014-06-22 MEDICATIONS Unknown Medications RESULTS No Results PROCEDURES Procedure Date Ordered Result Body Site COMPLETE CBC W/AUTO DIFF WBC Jun 22, 2014 GLUCOSE BLOOD TEST Jun 22, 2014 COMPREHEN METABOLIC PANEL Jun 22, 2014 URINALYSIS, AUTO, W/O SCOPE Jun 22, 2014 VENIPUNCT, ROUTINE* Jun 22, 2014 INSTRUCTIONS MEDICATIONS ADMINISTERED No Known Medications [...] 05/2005 Surgical History Right Rotator Cuff Repair [facility] 06/2016 Surgical History Reginaldo Nava (1 Polyp) repeat 5 year s 2019 2014 Surgical History right rotator cuff surgery 06/27/2016 Hospitalization History Overdosed on Clonazepam #35. [place] [facility] 03/2014 Hospitalization History Overdosed on Xanax 07/2012 Hospitalization History Hypostension-medication side effect[facility] 03/13/16
--- OUTSIDE RECORDS SUMMARY | 2019-09-11 12:31 | XMS REPORT ---
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 Active 281642491 Problem Abdominal pain R10.9 Active 25717 001 Problem Change in bowel habit R19.4 Active 75708763 Problem Coronary atherosclerosis due to lipid rich plaque I25.83 Active 21305782 Problem Type 2 diabetes 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 E11.8 Active 91009906 Problem Impotence N52.9 Active 908079143 Problem Family history of colon cancer Z80.0 Active 125933552 Problem Diabetic neuropathy, painful E11.40 A ctive 873726680 Problem Arm paresthesia, right R20.2 Active 96068690 Problem Gastroesophageal reflux disease without esophagitis K21.9 Active 583795817 Problem Drug abuse, opioid type F11.10 Active 5978138 Problem COPD exacerbation J44.1 Active 19 2323730 Problem Obstructive sleep apnea syndrome G47.33 Active 95371488 Problem Diverticulitis K57.92 Active 27129 6006 Problem Pain of right upper extremity M79.601 Active 432075976 Problem Respiratory bronchiolitis interstitial lung disease J84.115 Active 010069543 Problem Hypoxia R09.02 Active 198841880 Problem Interstitial lung disease J84.9 Acti ve [id number] ALLERGIES No Information ENCOUNTERS Encounter Location Date Diagnosis [facility] [address] [facility] [id number] [address] [place] [address] Aug, [facility] [address] [facility] [id number] [address] [place] [address] Aug, Diabetic neuropathy, painful E11.40 ; Interstitial lung disease J84.9 ; Chronic cough R05 ; Type 2 diabetes 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 E11.8 and long term care phlebotomist 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.4 [facility] [address] [facility] [id number] [address] [place] [address] Jul, [facility] [address] [facility] [id number] [address] [place] [address] Jul, [facility] [address] [place] [id number] [place] [address] Jul, Diabetic neuropathy, painful E11.40 [place] [address] [address] Jul, Type 2 diabetes mellitus wit h complication E11.8 [facility] [address] [place] [id number] [place] [address] Jun, Diabetic neuropathy, painful E11.40 [facility] [address] [address] Jun, [facility] [address] [address] Jun, Type 2 diabetes mellitus wit h complication E11.8 ; Other viral agents as the cause of diseases classified elsewhere B97.89 ; Acute upper respiratory infection, unspecified J06.9 ; Acute recurrent maxillary sinusitis J01.01 ; Sore throat J02.9 and Headache R51 [facility] [id number] [place] [address] Jun, Right lower quadrant abdomin al pain R10.31 and Type 2 diabetes 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 E11.8 [place] [address] [place] [id number] [place] [address] May, Diabetic neuropathy, painful E11.40 [facility] [address] [place] [id number] [address] [place] [address] 06 May, 2017 COPD exacerbation J44.1 and Type 2 diabetes mellitus with complication E11.8 [facility] [address] [place] [id number] [place] [address] Apr, Diabetic neuropathy, painful E11.40 [place] [address] [address] Apr, Diabetic neuropathy, painful E11.40 [facility] [place] [address] [address] Mar, Bronchitis J40 [place] [address] [address] January, Type 2 diabetes mellitus wit h [...] M48.02 [facility] [place] [address] [address] January, Viral gastroenteritis A08.4 [place] [address] [address] Dec, Diabetic neuropathy, painful E11.40 [place] [address] [address] [place] [id number] [place] [id number] Oct, [place] [address] [address] Oct, Acute right-sided weakness M 62.89 and Slurring of speech R47.81 [place] [address] [address] Sep, Type 2 diabetes mellitus wit h complication E11.8 ; Diabetic neuropathy, painful E11.40 ; Impotence N52.9 ; Coronary atherosclerosis due to lipid rich plaque I25.83 ; care home 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.4 ; Interstitial lung disease J84.9 ; Hypoxia R09.02 ; Essential hypertension I10 and Gastroesophageal reflux disease without esophagitis K21.9 [facility] [address] [facility] [id number] [address] [place] [address] Sep, Bronchitis J40 [facility] [address] [facility] [id number] [address] [place] [address] Aug, Gastroenteritis and colitis, viral A08.4 [facility] [address] [facility] [id number] [address] [place] [address] Aug, [facility] [address] [facility] [id number] [address] [place] [address] Jun, Type 2 diabetes mellitus wit h complication E11.8 ; Diabetic neuropathy, painful E11.40 ; Impotence N52.9 ; Coronary atherosclerosis due to lipid rich plaque I25.83 ; long term care phlebotomist 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.4 ; Interstitial lung disease J84.9 ; Hypoxia R09.02 and Essential hypertension I10 [facility] [address] [facility] [id number] [address] [place] [address] 30 May, 2016 Bronchitis J40 [facility] [address] [facility] [id number] [address] [place] [address] 29 May, 2016 [facility] [address] [facility] [id number] [address] [place] [address] May, Pain of right upper extremit y M79.601 [facility] [address] [facility] [id number] [address] [place] [address] May, [facility] [address] [facility] [id number] [address] [place] [address] 15 May, 2016 [facility] [address] [facility] [id number] [address] [place] [address] 07 May, 2016 Right hand pain M79.641 [facility] [address] [facility] [id number] [address] [place] [address] Apr, [facility] [address] [facility] [id number] [address] [place] [address] Apr, [facility] [address] [id number] [address] [place] [address] Mar, [facility] [address] [facility] [id number] [address] [place] [address] Mar, Essential hypertension I10 [facility] [address] [facility] [id number] [address] [place] [address] Feb, [facility] [address] [facility] [id number] [address] [place] [address] Feb, Interstitial lung disease J8 4.9 and Bronchitis J40 [place] [address] [address] [facility] [id number] [address] [place] [address] Feb, [place] [address] [address] [facility] [id number] [address] [place] [address] Feb, Type 2 diabetes mellitus wit h complication E11.8 ; Impotence N52.9 ; Coronary atherosclerosis due to lipid rich plaque I25.83 ; long term care phlebotomist 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.4 and Diabetic neuropathy, painful E11.40 [place] [address] [address] [facility] [id number] [address] [place] [address] January, [place] [address] [address] [facility] [id number] [address] [place] [address] January, Arm paresthesia, right R20.2 and Pain of right upper extremity M79.601 [place] [address] [address] [facility] [id number] [address] [place] [address] Dec, Lumbar strain S39.012A [place] [address] [address] [facility] [id number] [address] [place] [address] Nov, Diabetic neuropathy, painful E11.40 ; Respiratory bronchiolitis interstitial lung disease J84.115 ; Pain of right upper extremity M79.601 and Arm paresthesia, right R20.2 [place] [address] [address] [facility] [id number] [address] [place] [address] Nov, Diabetic neuropathy, painful E11.40 [facility] [address] Sep, Type 2 diabetes mellitus wit h complication E11.8 ; Impotence N52.9 ; Coronary atherosclerosis due to lipid rich plaque I25.83 ; care home 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.4 ; Diabetic neuropathy, painful E11.40 ; Chest pain R07.9 and Restless leg G25.[address] [address] Sep, [address] [address] Jul, COPD (chronic obstructive pu lmonary disease) with acute bronchitis J44.[address] [address] Jun, Abdominal pain R10.9 ; Famil y history of colon cancer Z80.0 and Diverticulitis K57.[address] [address] Jun, Abdominal pain R10.9 and Div erticulitis K57.[address] [address] Apr, Diabetes with other specifie d manifestations, type II or unspecified type, not stated as uncontrolled 250.80 ; Coronary atherosclerosis of unspecified type of vessel, tribe or graft 414.00 ; Unspecified essential hypertension 401.9 ; Impotence of organic origin 607.84 ; Sleep apnea 780.57 and Interstitial lung disease [address] [address] Dec, [address] [address] Dec, [address] [address] Nov, [address] [address] Nov, [facility] [address] [id number] [address] [place] [address], [place] [address] Nov, [facility] [address] [id number] [address] [place] [address], [place] [address] Nov, [facility] [address] [id number] [address] [place] [address], [place] [address] Nov, [facility] [address] [id number] [address] [place] [address], [place] [address] Nov, [facility] [address] [id number] [address] [place] [address], [place] [address] Nov, [facility] [address] [id number] [address] [place] [address], [place] [address] Nov, [facility] [address] [id number] [address] [place] [address], [place] [address] Nov, [facility] [address] [id number] [address] [place] [address], [place] [address] Nov, [facility] [address] [id number] [address] [place] [address], [place] [address] Oct, [facility] [address] [id number] [address] [place] [address], [place] [address] Oct, 2014 [facility] [address] [id number] [address] [place] [address], [place] [address] Oct, 2014 [facility] [address] [id number] [address] [place] [address] Oct, 2014 [facility] [address] [id number] [address] [place] [address], [place] [address] Oct, 2014 [facility] [address] [id number] [address] [place] [address], [place] [address] Oct, 2014 [facility] [address] [id number] [address] [place] [address], [place] [address] Oct, 2014 [facility] [address] [id number] [address] [place] [address], [place] [address] 04 Oct, 2014 [facility] [address] [id number] [address] [place] [address], [place] [address] Oct, 2014 [facility] [address] [id number] [address] [place] [address], [place] [address] Oct, 2014 [facility] [address] [id number] [address] [place] [address], [place] [address] Oct, 2014 [facility] [address] [id number] [address] [place] [address], [place] [address] Jul, [facility] [address] [id number] [address] [place] [address], [place] [address] Jul, [facility] [address] [id number] [address] [place] [address], [place] [address] Jun, [facility] [address] [id number] [address] [place] [address], [place] [address] 29 Jun, 2014 [facility] [address] [id number] [address] [place] [address], [place] [address] Jun, [facility] [address] [id number] [address] [place] [address], [place] [address] 17 Jun, 2014 [facility] [address] [id number] [address] [place] [address], [place] [address] 15 Jun, 2014 [facility] [address] [id number] [address] [place] [address], [place] [address] 15 Jun, 2014 [facility] [address] [id number] [address] [place] [address], [place] [address] 14 Jun, 2014 [facility] [address] [id number] [address] [place] [address], [place] [address] 14 Jun, 2014 [facility] [address] [id number] [address] [place] [address], [place] [address] 13 Jun, 2014 [facility] [address] [id number] [address] [place] [address], [place] [address] Jun, [facility] [address] [id number] [address] [place] [address], [place] [address] 08 Jun, 2014 [facility] [address] [id number] [address] [place] [address], [place] [address] 08 Jun, 2014 [facility] [address] [id number] [address] [place] [address], [place] [address] Jun, [facility] [address] [id number] [address] [place] [address], [place] [address] Jun, [facility] [address] [id number] [address] [place] [address], [place] [address] 30 May, 2014 [facility] [address] [id number] [address] [place] [address], [place] [address] 30 May, 2014 [facility] [address] [id number] [address] [place] [address], [place] [address] May, [facility] [address] [id number] [address] [place] [address], [place] [address] May, [facility] [address] [id number] [address] [place] [address], [place] [address] 05 May, 2014 [facility] [address] [id number] [address] [place] [address], [place] [address] 05 May, 2014 [facility] [address] [id number] [address] [place] [address], [place] [address] Apr, [facility] [address] [id number] [address] [place] [address], [place] [address] Apr, [facility] [address] [id number] [address] [place] [address], [place] [address] Apr, [facility] [address] [id number] [address] [place] [address], [place] [address] Apr, [facility] [address] [id number] [address] [place] [address], [place] [address] Apr, [facility] [address] [id number] [address] [place] [address], [place] [address] Apr, [facility] [address] [id number] [facility] [place] [address] Apr, [facility] [address] [id number] [facility] [place] [address] Apr, [facility] [address] [id number] [facility] [place] [address] Apr, [facility] [address] [id number] [address] [place] [address], [place] [address] Apr, [facility] [address] [id number] [address] [place] [address], [place] [address] Apr, [facility] [address] [id number] [address] [place] [address], [place] [address] Apr, [facility] [address] [id number] [address] [place] [address], [place] [address] Mar, [facility] [address] [id number] [address] [place] [address], [place] [address] Mar, [facility] [address] [id number] [address] [place] [address], [place] [address] Mar, [facility] [address] [id number] [address] [place] [address], [place] [address] Mar, [facility] [address] [id number] [address] [place] [address], [place] [address] Mar, [facility] [address] [id number] [address] [place] [address], [place] [address] Mar, [facility] [address] [id number] [address] [place] [address], [place] [address] Mar, [facility] [address] [id number] [address] [place] [address], [place] [address] Mar, [facility] [address] [id number] [address] [place] [address], [place] [address] Mar, [facility] [address] [id number] [facility] [place] [address] Mar, [facility] [address] [id number] [facility] [place] [address] Mar, [facility] [address] [id number] [facility] [place] [address] Feb, [facility] [address] [id number] [facility] [place] [address] Feb, [facility] [address] [id number] [address] [place] [address], [place] [address] Feb, [facility] [address] [id number] [address] [place] [address], [place] [address] Feb, [facility] [address] [id number] [address] [place] [address], [place] [address] Feb, [facility] [address] [id number] [address] [place] [address], [place] [address] Feb, [facility] [address] [id number] [address] [place] [address], [place] [address] Feb, [facility] [address] [id number] [address] [place] [address], [place] [address] Feb, [facility] [address] [id number] [address] [place] [address], [place] [address] Feb, [facility] [address] [id number] [address] [place] [address], [place] [address] Feb, [facility] [address] [id number] [address] [place] [address], [place] [address] January, [facility] [address] [id number] [address] [place] [address], [place] [address] January, [facility] [address] [id number] [address] [place] [address], [place] [address] January, [facility] [address] [id number] [address] [place] [address], [place] [address] January, [facility] [address] [id number] [facility] [place] [address] January, [facility] [address] [id number] [address] [place] [address], [place] [address] January, [facility] [address] [id number] [address] [place] [address], [place] [address] January, [facility] [address] [id number] [address] [place] [address], [place] [address] January, [facility] [address] [id number] [address] [place] [address], [place] [address] January, [facility] [address] [id number] [address] [place] [address], [place] [address] January, [facility] [address] [id number] [address] [place] [address], [place] [address] January, [facility] [address] [id number] [address] [place] [address], [place] [address] January, [facility] [address] [id number] [address] [place] [address], [place] [address] January, [facility] [address] [id number] [address] [place] [address], [place] [address] January, [facility] [address] [id number] [address] [place] [address], [place] [address] January, [facility] [address] [id number] [address] [place] [address], [place] [address] January, [facility] [address] [id number] [address] [place] [address], [place] [address] Dec, [facility] [address] [id number] [address] [place] [address], [place] [address] Dec, [facility] [address] [id number] [address] [place] [address], [place] [address] Dec, [facility] [address] [id number] [address] [place] [address], [place] [address] 17 Dec, 2013 [facility] [address] [id number] [address] [place] [address], [place] [address] Dec, [facility] [address] [id number] [address] [place] [address], [place] [address] Dec, [facility] [address] [id number] [address] [place] [address], [place] [address] Dec, [facility] [address] [id number] [address] [place] [address], [place] [address] Dec, [facility] [address] [id number] [address] [place] [address], [place] [address] Dec, [facility] [address] [id number] [address] [place] [address], [place] [address] Dec, [facility] [address] [id number] [address] [place] [address], [place] [address] Nov, [facility] [address] [id number] [address] [place] [address], [place] [address] Nov, [facility] [address] [id number] [address] [place] [address], [place] [address] Oct, [facility] [address] [id number] [address] [place] [address], [place] [address] Oct, [facility] [address] [id number] [address] [place] [address], [place] [address] Oct, [facility] [address] [id number] [address] [place] [address], [place] [address] Sep, [facility] [address] [id number] [address] [place] [address], [place] [address] Sep, [facility] [address] [id number] [address] [place] [address], [place] [address] Sep, [facility] [address] [id number] [address] [place] [address], [place] [address] Sep, [facility] [address] [id number] [address] [place] [address], [place] [address] Sep, [facility] [address] [id number] [address] [place] [address], [place] [address] Sep, [facility] [address] [id number] [address] [place] [address], [place] [address] Sep, [facility] [address] [id number] [address] [place] [address], [place] [address] Sep, [facility] [address] [id number] [address] [place] [address], [place] [address] Sep, [facility] [address] [id number] [address] [place] [address], [place] [address] Sep, [facility] [address] [id number] [address] [place] [address], [place] [address] Sep, [facility] [address] [id number] [address] [place] [address], [place] [address] Sep, [facility] [address] [id number] [address] [place] [address], [place] [address] Aug, [facility] [address] [id number] [address] [place] [address], [place] [address] Aug, [facility] [facility] [address] [id number] [address] [place] [address], [place] [address] Aug, [facility] [address] [id number] [address] [place] [address], [place] [address] Aug, [facility] [address] [id number] [address] [place] [address], [place] [address] Jul, [facility] [address] [id number] [address] [place] [address], [place] [address] Jul, [facility] [address] [id number] [address] [place] [address], [place] [address] Jun, [facility] [address] [id number] [address] [place] [address] [place] [address] 30 Jun, 2013 [facility] [address] [id number] [address] [place] [address], [place] [address] Jun, [facility] [address] [id number] [address] [place] [address], [place] [address] Jun, [facility] [address] [id number] [address] [place] [address], [place] [address] Jun, [facility] [address] [id number] [address] [place] [address], [place] [address] Jun, [facility] [address] [id number] [address] [place] [address], [place] [address] Jun, [facility] [address] [id number] [address] [place] [address], [place] [address] Jun, [facility] [address] [id number] [address] [place] [address], [place] [address] 24 May, 2012 [facility] [address] [id number] [address] [place] [address], [place] [address] 23 May, 2012 [facility] [address] [id number] [address] [place] [address], [place] [address] 18 May, 2012 [facility] [address] [id number] [address] [place] [address], [place] [address] 13 May, 2012 [facility] [address] [id number] [address] [place] [address], [place] [address] 11 May, 2012 [facility] [address] [id number] [address] [place] [address], [place] [address] 06 May, 2012 [facility] [address] [id number] [address] [place] [address], [place] [address] 03 May, 2012 [facility] [address] [id number] [address] [place] [address], [place] [address] 30 Apr, 2013 [facility] [address] [id number] [address] [place] [address], [place] [address] 22 Apr, 2013 [facility] [address] [id number] [address] [place] [address], [place] [address] Apr, [facility] [address] [id number] [address] [place] [address], [place] [address] Apr, [facility] [address] [id number] [address] [place] [address], [place] [address] Apr, [facility] [address] [id number] [address] [place] [address], [place] [address] Apr, [facility] [address] [id number] [address] [place] [address], [place] [address] Apr, [facility] [address] [id number] [address] [place] [address], [place] [address] Mar, [facility] [address] [id number] [address] [place] [address], [place] [address] Mar, [facility] [address] [id number] [address] [place] [address], [place] [address] Mar, [facility] [address] [id number] [address] [place] [address], [place] [address] Mar, [facility] [address] [id number] [address] [place] [address], [place] [address] Mar, [facility] [address] [id number] [address] [place] [address], [place] [address] Mar, [facility] [address] [id number] [address] [place] [address], [place] [address] Mar, [facility] [address] [id number] [address] [place] [address], [place] [address] Mar, [facility] [address] [id number] [address] [place] [address], [place] [address] Feb, [facility] [address] [id number] [address] [place] [address], [place] [address] Feb, [facility] [address] [id number] [address] [place] [address], [place] [address] Feb, [facility] [address] [id number] [address] [place] [address], [place] [address] January, [facility] [address] [id number] [address] [place] [address], [place] [address] January, [facility] [address] [id number] [address] [place] [address], [place] [address] January, [facility] [address] [id number] [address] [place] [address], [place] [address] January, [facility] [address] [id number] [address] [place] [address], [place] [address] January, [facility] [address] [id number] [address] [place] [address], [place] [address] January, [facility] [address] [id number] [address] [place] [address], [place] [address] January, [facility] [address] [id number] [address] [place] [address], [place] [address] January, [facility] [address] [id number] [address] [place] [address], [place] [address] Dec, [facility] [address] [id number] [address] [place] [address], [place] [address] Dec, [facility] [address] [id number] [address] [place] [address], [place] [address] Dec, [facility] [address] [id number] [address] [place] [address], [place] [address] Dec, [facility] [address] [id number] [address] [place] [address], [place] [address] Dec, [facility] [address] [id number] [address] [place] [address], [place] [address] Nov, [facility] [address] [id number] [address] [place] [address], [place] [address] Nov, [facility] [address] [id number] [address] [place] [address], [place] [address] 19 Nov, 2012 [facility] [address] [id number] [address] [place] [address], [place] [address] 18 Nov, 2012 [facility] [address] [id number] [address] [place] [address], [place] [address] 18 Nov, 2012 [facility] [address] [id number] [address] [place] [address], [place] [address] 14 Nov, 2012 [facility] [address] [id number] [address] [place] [address], [place] [address] 11 Nov, 2012 [facility] [address] [id number] [address] [place] [address], [place] [address] 11 Nov, 2012 [facility] [address] [id number] [address] [place] [address], [place] [address] 21 Oct, 2012 [facility] [address] [id number] [address] [place] [address], [place] [address] 21 Oct, 2012 [facility] [address] [id number] [address] [place] [address], [place] [address] 12 Oct, 2012 [facility] [address] [id number] [address] [place] [address], [place] [address] 08 Oct, 2012 [facility] [address] [id number] [address] [place] [address], [place] [address] 07 Oct, 2012 [facility] [address] [id number] [address] [place] [address], [place] [address] 07 Oct, 2012 [facility] [address] [id number] [address] [place] [address], [place] [address] 05 Oct, 2012 [facility] [address] [id number] [address] [place] [address], [place] [address] 04 Oct, 2012 [facility] [address] [id number] [address] [place] [address], [place] [address] 04 Oct, 2012 [facility] [address] [id number] [address] [place] [address], [place] [address] Sep, [facility] [address] [id number] [address] [place] [address], [place] [address] Sep, [facility] [address] [id number] [address] [place] [address], [place] [address] Sep, [facility] [address] [id number] [address] [place] [address], [place] [address] Sep, [facility] [address] [id number] [address] [place] [address], [place] [address] Sep, [facility] [address] [id number] [address] [place] [address], [place] [address] Sep, [facility] [address] [id number] [address] [place] [address], [place] [address] Aug, [facility] [address] [id number] [address] [place] [address], [place] [address] Aug, [facility] [address] [id number] [address] [place] [address], [place] [address] Aug, [facility] [address] [id number] [address] [place] [address], [place] [address] Aug, [facility] [address] [id number] [address] [place] [address], [place] [address] Aug, [facility] [address] [id number] [address] [place] [address], [place] [address] 18 Aug, 2012 [facility] [address] [id number] [address] [place] [address], [place] [address] 13 Aug, 2012 [facility] [address] [id number] [address] [place] [address], [place] [address] Aug, [facility] [address] [id number] [address] [place] [address], [place] [address] Aug, [facility] [address] [id number] [address] [place] [address], [place] [address] Jul, [facility] [address] [id number] [address] [place] [address] Jul, [facility] [address] [id number] [address] [place] [address] Jul, [facility] [address] [id number] [address] [place] [address] Jul, [facility] [address] [facility] [id number] [address] [place] [address] Nov, [facility] [address] [facility] [id number] [address] [place] [address] Sep, [facility] [address] [facility] [id number] [address] [place] [address] Aug, [facility] [address] [facility] [id number] [address] [place] [address] Aug, [facility] [address] [facility] [id number] [address] [place] [address] Aug, [facility] [address] [facility] [id number] [address] [place] [address] Jul, IMMUNIZATIONS No Known Immunizations SOCIAL HISTORY [...] 05/2005 Surgical History Right Rotator Cuff Repair [facility] 06/2016 Surgical History Colonoscopy Kido (1 Polyp) repeat 5 year s 2019 2014 Surgical History right rotator cuff surgery 06/27/2016 Hospitalization History Overdosed on Clonazepam #35. Lori parvin 03/2014 Hospitalization History Overdosed on Xanax 07/2012 Hospitalization History Hypostension-medication side effect-[facility] 03/13/16
--- OUTSIDE RECORDS SUMMARY | 2019-09-11 12:32 | XMS REPORT ---
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 Name Role Phone NATHALIA CHAPPELLWNYA Unavailable PROBLEMS Type Condition ICD9-CM Code NML17-PR Code Onset Dates Condition S tatus SNOMED Code Problem Neuropathy G62.9 Active 474015893 Problem Essential hypertension I10 Active 77660293 Problem 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 Active 624936392 Problem Abdominal pain R10.9 Active 39382 001 Problem Change in bowel habit R19.4 Active 50774446 Problem Coronary atherosclerosis due to lipid rich plaque I25.83 Active 49825593 Problem Type 2 diabetes mellitus with complication E11.8 Active 07361287 Problem Impotence N52.9 Active 420240687 Problem Family history of colon cancer Z80.0 Active 364964313 Problem Diabetic neuropathy, painful E11.40 A ctive 796131427 Problem Arm paresthesia, right R20.2 Active 10338092 Problem Gastroesophageal reflux disease without esophagitis K21.9 Active 221803197 Problem Drug abuse, opioid type F11.10 Active 5695949 Problem COPD exacerbation J44.1 Active 19 0613004 Problem Obstructive sleep apnea syndrome G47.33 Active 02281375 Problem Diverticulitis K57.92 Active 51884 6006 Problem Pain of right upper extremity M79.601 Active 934914132 Problem Respiratory bronchiolitis interstitial lung disease J84.115 Active 044104336 Problem Hypoxia R09.02 Active 309607731 Problem Interstitial lung disease J84.9 Acti ve [id number] ALLERGIES No Information ENCOUNTERS Encounter Location Date Diagnosis [facility] [address] [facility] [id number] [address] [place] [address] Aug, [facility] [address] [facility] [id number] [address] [place] [address] Aug, Diabetic neuropathy, painful E11.40 ; Interstitial lung disease J84.9 ; Chronic cough R05 ; Type 2 diabetes mellitus with complication E11.8 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 [facility] [address] [facility] [id number] [address] [place] [address] Jul, [facility] [address] [facility] [id number] [address] [place] [address] Jul, [facility] [address] [place] [id number] [place] [address] Jul, Diabetic neuropathy, painful E11.40 [place] [address] [address] Jul, Type 2 diabetes mellitus wit h complication E11.8 [facility] [address] [place] [id number] [place] [address] Jun, Diabetic neuropathy, painful E11.40 [facility] [address] [address] Jun, [facility] [address] [address] Jun, Type 2 diabetes mellitus wit h complication E11.8 ; Other viral agents as the cause of diseases classified elsewhere B97.89 ; Acute upper respiratory infection, unspecified J06.9 ; Acute recurrent maxillary sinusitis J01.01 ; Sore throat J02.9 and Headache R51 [facility] [address] [place] [address] Jun, Right lower quadrant abdomin al pain R10.31 and Type 2 diabetes mellitus with complication E11.8 [place] [address] [place] [id number] [place] [address] May, Diabetic neuropathy, painful E11.40 [facility] [address] [place] [id number] [address] [place] [address] 06 May, 2017 COPD exacerbation J44.1 and Type 2 diabetes mellitus with complication E11.8 [facility] [address] [place] [id number] [place] [address] Apr, Diabetic neuropathy, painful E11.40 [place] [address] [address] Apr, Diabetic neuropathy, painful E11.40 [facility] [place] [address] [address] Mar, Bronchitis J40 [place] [address] [address] January, Type 2 diabetes mellitus wit h [...] stenosis M48.02 [facility] [place] [address] [address] January, Viral gastroenteritis A08.4 [place] [address] [address] Dec, Diabetic neuropathy, painful E11.40 [place] [address] [place] [id number] [place] [id number] Oct, [place] [address] [address] Oct, Acute right-sided weakness M 62.89 and Slurring of speech R47.81 [place] [address] [address] Sep, Type 2 diabetes mellitus wit h complication E11.8 ; Diabetic neuropathy, painful E11.40 ; Impotence N52.9 ; Coronary atherosclerosis due to lipid rich plaque I25.83 ; senior care 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.4 ; Interstitial lung disease J84.9 ; Hypoxia R09.02 ; Essential hypertension I10 and Gastroesophageal reflux disease without esophagitis K21.9 [facility] [address] [facility] [id number] [address] [place] [address] Sep, Bronchitis J40 [facility] [address] [facility] [id number] [address] [place] [address] Aug, Gastroenteritis and colitis, viral A08.4 [facility] [address] [facility] [id number] [address] [place] [address] Aug, [facility] [address] [facility] [id number] [address] [place] [address] Jun, Type 2 diabetes mellitus wit h complication E11.8 ; Diabetic neuropathy, painful E11.40 ; Impotence N52.9 ; Coronary atherosclerosis due to lipid rich plaque I25.83 ; 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 ; Interstitial lung disease J84.9 ; Hypoxia R09.02 and Essential hypertension I10 [facility] [address] [facility] [id number] [address] [place] [address] 30 May, 2016 Bronchitis J40 [facility] [address] [facility] [id number] [address] [place] [address] 29 May, 2016 [facility] [address] [facility] [id number] [address] [place] [address] May, Pain of right upper extremit y M79.601 [facility] [address] [facility] [id number] [address] [place] [address] May, [facility] [address] [facility] [id number] [address] [place] [address] 15 May, 2016 [facility] [address] [facility] [id number] [address] [place] [address] 07 May, 2016 Right hand pain M79.641 [facility] [address] [facility] [id number] [address] [place] [address] Apr, [facility] [address] [facility] [id number] [address] [place] [address] Apr, [facility] [address] [id number] [address] [place] [address] Mar, [facility] [address] [facility] [id number] [address] [place] [address] Mar, Essential hypertension I10 [facility] [address] [facility] [id number] [address] [place] [address] Feb, [facility] [address] [facility] [id number] [address] [place] [address] Feb, Interstitial lung disease J8 4.9 and Bronchitis J40 [place] [address] [facility] [id number] [address] [place] [address] Feb, [place] [address] [facility] [id number] [address] [place] [address] Feb, Type 2 diabetes mellitus wit h complication E11.8 ; Impotence N52.9 ; Coronary atherosclerosis due to lipid rich plaque I25.83 ; 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 and Diabetic neuropathy, painful E11.40 [place] [address] [facility] [id number] [address] [place] [address] January, [place] [address] [facility] [id number] [address] [place] [address] January, Arm paresthesia, right R20.2 and Pain of right upper extremity M79.601 [place] [address] [facility] [id number] [address] [place] [address] Dec, Lumbar strain S39.012A [place] [address] [facility] [id number] [address] [place] [address] Nov, Diabetic neuropathy, painful E11.40 ; Respiratory bronchiolitis interstitial lung disease J84.115 ; Pain of right upper extremity M79.601 and Arm paresthesia, right R20.2 [place] [address] [facility] [id number] [address] [place] [address] Nov, Diabetic neuropathy, painful E11.40 [facility] [address] Sep, Type 2 diabetes mellitus wit h complication E11.8 ; Impotence N52.9 ; Coronary atherosclerosis due to lipid rich plaque I25.83 ; senior care 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.4 ; Diabetic neuropathy, painful E11.40 ; Chest pain R07.9 and Restless leg G25.[address] [address] Sep, [address] [address] Jul, COPD (chronic obstructive pu lmonary disease) with acute bronchitis J44.[address] [address] Jun, Abdominal pain R10.9 ; Famil y history of colon cancer Z80.0 and Diverticulitis K57.[address] [address] Jun, Abdominal pain R10.9 and Div erticulitis K57.[address] [address] Apr, Diabetes with other specifie d manifestations, type II or unspecified type, not stated as uncontrolled 250.80 ; Coronary atherosclerosis of unspecified type of vessel, [place] or graft 414.00 ; Unspecified essential hypertension 401.9 ; Impotence of organic origin 607.84 ; Sleep apnea 780.57 and Interstitial lung disease [address] [address] Dec, [address] [address] Dec, [address] [address] Nov, [address] [address] Nov, [facility] [address] [id number] [address] [place] [address], [place] [address] Nov, [facility] [address] [id number] [address] [place] [address], [place] [address] Nov, [facility] [address] [id number] [address] [place] [address], [place] [address] Nov, [facility] [address] [id number] [address] [place] [address], [place] [address] Nov, [facility] [address] [id number] [address] [place] [address], [place] [address] Nov, [facility] [address] [id number] [address] [place] [address], [place] [address] Nov, [facility] [address] [id number] [address] [place] [address], [place] [address] Nov, [facility] [address] [id number] [address] [place] [address], [place] [address] Nov, [facility] [address] [id number] [address] [place] [address], [place] [address] Oct, [facility] [address] [id number] [address] [place] [address], [place] [address] Oct, 2014 [facility] [address] [id number] [address] [place] [address], [place] [address] Oct, 2014 [facility] [address] [id number] [address] [place] [address] Oct, 2014 [facility] [address] [id number] [address] [place] [address], [place] [address] Oct, 2014 [facility] [address] [id number] [address] [place] [address], [place] [address] Oct, 2014 [facility] [address] [id number] [address] [place] [address], [place] [address] Oct, 2014 [facility] [address] [id number] [address] [place] [address], [place] [address] 04 Oct, 2014 [facility] [address] [id number] [address] [place] [address], [place] [address] Oct, 2014 [facility] [address] [id number] [address] [place] [address], [place] [address] Oct, 2014 [facility] [address] [id number] [address] [place] [address], [place] [address] Oct, 2014 [facility] [address] [id number] [address] [place] [address], [place] [address] Jul, [facility] [address] [id number] [address] [place] [address], [place] [address] Jul, [facility] [address] [id number] [address] [place] [address], [place] [address] Jun, [facility] [address] [id number] [address] [place] [address], [place] [address] 29 Jun, 2014 [facility] [address] [id number] [address] [place] [address], [place] [address] Jun, [facility] [address] [id number] [address] [place] [address], [place] [address] 17 Jun, 2014 [facility] [address] [id number] [address] [place] [address], [place] [address] 15 Jun, 2014 [facility] [address] [id number] [address] [place] [address], [place] [address] 15 Jun, 2014 [facility] [address] [id number] [address] [place] [address], [place] [address] 14 Jun, 2014 [facility] [address] [id number] [address] [place] [address], [place] [address] 14 Jun, 2014 [facility] [address] [id number] [address] [place] [address], [place] [address] 13 Jun, 2014 [facility] [address] [id number] [address] [place] [address], [place] [address] Jun, [facility] [address] [id number] [address] [place] [address], [place] [address] 08 Jun, 2014 [facility] [address] [id number] [address] [place] [address], [place] [address] 08 Jun, 2014 [facility] [address] [id number] [address] [place] [address], [place] [address] Jun, [facility] [address] [id number] [address] [place] [address], [place] [address] Jun, [facility] [address] [id number] [address] [place] [address], [place] [address] 30 May, 2014 [facility] [address] [id number] [address] [place] [address], [place] [address] 30 May, 2014 [facility] [address] [id number] [address] [place] [address], [place] [address] May, [facility] [address] [id number] [address] [place] [address], [place] [address] May, [facility] [address] [id number] [address] [place] [address], [place] [address] 05 May, 2014 [facility] [address] [id number] [address] [place] [address], [place] [address] 05 May, 2014 [facility] [address] [id number] [address] [place] [address], [place] [address] Apr, [facility] [address] [id number] [address] [place] [address], [place] [address] Apr, [facility] [address] [id number] [address] [place] [address], [place] [address] Apr, [facility] [address] [id number] [address] [place] [address], [place] [address] Apr, [facility] [address] [id number] [address] [place] [address], [place] [address] Apr, [facility] [address] [id number] [address] [place] [address], [place] [address] Apr, [facility] [address] [id number] [facility] [place] [address] Apr, [facility] [address] [id number] [facility] [place] [address] Apr, [facility] [address] [id number] [facility] [place] [address] Apr, [facility] [address] [id number] [address] [place] [address], [place] [address] Apr, [facility] [address] [id number] [address] [place] [address], [place] [address] Apr, [facility] [address] [id number] [address] [place] [address], [place] [address] Apr, [facility] [address] [id number] [address] [place] [address], [place] [address] Mar, [facility] [address] [id number] [address] [place] [address], [place] [address] Mar, [facility] [address] [id number] [address] [place] [address], [place] [address] Mar, [facility] [address] [id number] [address] [place] [address], [place] [address] Mar, [facility] [address] [id number] [address] [place] [address], [place] [address] Mar, [facility] [address] [id number] [address] [place] [address], [place] [address] Mar, [facility] [address] [id number] [address] [place] [address], [place] [address] Mar, [facility] [address] [id number] [address] [place] [address], [place] [address] Mar, [facility] [address] [id number] [address] [place] [address], [place] [address] Mar, [facility] [address] [id number] [facility] [place] [address] Mar, [facility] [address] [id number] [facility] [place] [address] Mar, [facility] [address] [id number] [facility] [place] [address] Feb, [facility] [address] [id number] [facility] [place] [address] Feb, [facility] [address] [id number] [address] [place] [address], [place] [address] Feb, [facility] [address] [id number] [address] [place] [address], [place] [address] Feb, [facility] [address] [id number] [address] [place] [address], [place] [address] Feb, [facility] [address] [id number] [address] [place] [address], [place] [address] Feb, [facility] [address] [id number] [address] [place] [address], [place] [address] Feb, [facility] [address] [id number] [address] [place] [address], [place] [address] Feb, [facility] [address] [id number] [address] [place] [address], [place] [address] Feb, [facility] [address] [id number] [address] [place] [address], [place] [address] Feb, [facility] [address] [id number] [address] [place] [address], [place] [address] January, [facility] [address] [id number] [address] [place] [address], [place] [address] January, [facility] [address] [id number] [address] [place] [address], [place] [address] January, [facility] [address] [id number] [address] [place] [address], [place] [address] January, [facility] [address] [id number] [facility] [place] [address] January, [facility] [address] [id number] [address] [place] [address], [place] [address] January, [facility] [address] [id number] [address] [place] [address], [place] [id number] January, [facility] [address] [id number] [address] [place] [address], [place] [id number] January, [facility] [address] [id number] [address] [place] [address], [place] [id number] January, [facility] [address] [id number] [address] [place] [address], [place] [id number] January, [facility] [address] [id number] [address] [place] [address], [place] [id number] January, [facility] [address] [id number] [address] [place] [address], [place] [id number] January, [facility] [address] [id number] [address] [place] [address], [place] [id number] January, [facility] [address] [id number] [address] [place] [address], [place] [id number] January, [facility] [address] [id number] [address] [place] [address], [place] [id number] January, [facility] [address] [id number] [address] [place] [address], [place] [id number] January, [facility] [address] [id number] [address] [place] [address], [place] [id number] Dec, [facility] [address] [id number] [address] [place] [address], [place] [id number] Dec, [facility] [address] [id number] [address] [place] [address], [place] [id number] Dec, [facility] [address] [id number] [address] [place] [address], [place] [id number] 17 Dec, 2013 [facility] [address] [id number] [address] [place] [address], [place] [id number] Dec, [facility] [address] [id number] [address] [place] [address], [place] [id number] Dec, [facility] [address] [id number] [address] [place] [address], [place] [id number] Dec, [facility] [address] [id number] [address] [place] [address], [place] [id number] Dec, [facility] [address] [id number] [address] [place] [address], [place] [id number] Dec, [facility] [address] [id number] [address] [place] [address], [place] [id number] Dec, [facility] [address] [id number] [address] [place] [address], [place] [id number] Nov, [facility] [address] [id number] [address] [place] [address], [place] [id number] Nov, [facility] [address] [id number] [address] [place] [address], [place] [id number] Oct, [facility] [address] [id number] [address] [place] [address], [place] [id number] Oct, [facility] [address] [id number] [address] [place] [address], [place] [id number] Oct, [facility] [address] [id number] [address] [place] [address], [place] [id number] Sep, [facility] [address] [id number] [address] [place] [address], [place] [id number] Sep, [facility] [address] [id number] [address] [place] [place] [address], [place] [address] Sep, [facility] [address] [id number] [address] [place] [address], [place] [id number] Sep, [facility] [address] [id number] [address] [place] [address], [place] [id number] Sep, [facility] [address] [id number] [address] [place] [address], [place] [id number] Sep, [facility] [address] [id number] [address] [place] [address], [place] [address] Sep, [facility] [address] [id number] [address] [place] [address], [place] [id number] Sep, [facility] [address] [id number] [address] [place] [address], [place] [address] Sep, [facility] [address] [id number] [address] [place] [address], [place] [address] Sep, [facility] [address] [id number] [address] [place] [address], [place] [address] Sep, [facility] [address] [id number] [address] [place] [address], [place] [address] Sep, [facility] [address] [id number] [address] [place] [address], [place] [id number] Aug, [facility] [address] [id number] [address] [place] [address], [place] [address] Aug, [facility] [address] [id number] [address] [place] [address], [place] [address] Aug, [facility] [address] [id number] [address] [place] [address], [place] [address] Aug, [facility] [address] [id number] [address] [place] [address], [place] [id number] Jul, [facility] [address] [id number] [address] [place] [address], [place] [id number] Jul, [facility] [address] [id number] [address] [place] [address], [place] [address] Jun, [facility] [address] [id number] [address] [place] [address] [place] [id number] 30 Jun, 2013 [facility] [address] [id number] [address] [place] [address], [place] [address] Jun, [facility] [address] [id number] [address] [place] [address], [place] [id number] Jun, [facility] [address] [id number] [address] [place] [address], [place] [id number] Jun, [facility] [address] [id number] [address] [place] [address], [place] [address] Jun, [facility] [address] [id number] [address] [place] [address], [place] [address] Jun, [facility] [address] [id number] [address] [place] [address], [place] [address] Jun, [facility] [address] [id number] [address] [place] [address], [place] [id number] 24 May, 2012 [facility] [address] [id number] [address] [place] [address], [place] [id number] 23 May, 2012 [facility] [address] [id number] [address] [place] [address], [place] [id number] 18 May, 2012 [facility] [address] [id number] [address] [place] [address], [place] [id number] 13 May, 2012 [facility] [address] [id number] [address] [place] [address], [place] [id number] 11 May, 2012 [facility] [address] [id number] [address] [place] [address], [place] [id number] 06 May, 2012 [facility] [address] [id number] [address] [place] [address], [place] [id number] 03 May, 2012 [facility] [address] [id number] [address] [place] [address], [place] [id number] 30 Apr, 2013 [facility] [address] [id number] [address] [place] [address], [place] [id number] 22 Apr, 2013 [facility] [address] [id number] [address] [place] [address], [place] [id number] Apr, [facility] [address] [id number] [address] [place] [address], [place] [id number] Apr, [facility] [address] [id number] [address] [place] [address], [place] [id number] Apr, [facility] [address] [id number] [address] [place] [address], [place] [id number] Apr, [facility] [address] [id number] [address] [place] [address], [place] [id number] Apr, [facility] [address] [id number] [address] [place] [address], [place] [id number] Mar, [facility] [address] [id number] [address] [place] [address], [place] [id number] Mar, [facility] [address] [id number] [address] [place] [address], [place] [id number] Mar, [facility] [address] [id number] [address] [place] [address], [place] [id number] Mar, [facility] [address] [id number] [address] [place] [address], [place] [address] Mar, [facility] [address] [id number] [address] [place] [address], [place] [address] Mar, [facility] [address] [id number] [address] [place] [address], [place] [id number] Mar, [facility] [address] [id number] [address] [place] [address], [place] [id number] Mar, [facility] [address] [id number] [address] [place] [address], [place] [id number] Feb, [facility] [address] [id number] [address] [place] [address], [place] [address] Feb, [facility] [address] [id number] [address] [place] [address], [place] [address] Feb, [facility] [address] [id number] [address] [place] [address], [place] [address] January, [facility] [address] [id number] [address] [place] [address], [place] [id number] January, [facility] [address] [id number] [address] [place] [address], [place] [id number] January, [facility] [address] [id number] [address] [place] [address], [place] [address] January, [facility] [address] [id number] [address] [place] [address], [place] [id number] January, [facility] [address] [id number] [address] [place] [address], [place] [id number] January, [facility] [address] [id number] [address] [place] [address], [place] [address] January, [facility] [address] [id number] [address] [place] [address], [place] [id number] January, [facility] [address] [id number] [address] [place] [address], [place] [address] Dec, [facility] [address] [id number] [address] [place] [address], [place] [address] Dec, [facility] [address] [id number] [address] [place] [address], [place] [address] Dec, [facility] [address] [id number] [address] [place] [address], [place] [address] Dec, [facility] [address] [id number] [address] [place] [address], [place] [address] Dec, [facility] [address] [id number] [address] [place] [address], [place] [id number] Nov, [facility] [address] [id number] [address] [place] [address], [place] [id number] Nov, [facility] [address] [id number] [address] [place] [address], [place] [id number] 19 Nov, 2012 [facility] [address] [id number] [address] [place] [address], [place] [id number] 18 Nov, 2012 [facility] [address] [id number] [address] [place] [address], [place] [id number] 18 Nov, 2012 [facility] [address] [id number] [address] [place] [address], [place] [id number] 14 Nov, 2012 [facility] [address] [id number] [address] [place] [address], [place] [address] 11 Nov, 2012 [facility] [address] [id number] [address] [place] [address], [place] [address] 11 Nov, 2012 [facility] [address] [id number] [address] [place] [address], [place] [address] 21 Oct, 2012 [facility] [address] [id number] [address] [place] [address], [place] [id number] 21 Oct, 2012 [facility] [address] [id number] [address] [place] [address], [place] [id number] 12 Oct, 2012 [facility] [address] [id number] [address] [place] [address], [place] [id number] 08 Oct, 2012 [facility] [address] [id number] [address] [place] [address], [place] [id number] 07 Oct, 2012 [facility] [address] [id number] [address] [place] [address], [place] [id number] 07 Oct, 2012 [facility] [address] [id number] [address] [place] [address], [place] [id number] 05 Oct, 2012 [facility] [address] [id number] [address] [place] [address], [place] [id number] 04 Oct, 2012 [facility] [address] [id number] [address] [place] [address], [place] [id number] 04 Oct, 2012 [facility] [address] [id number] [address] [place] [address], [place] [address] Sep, [facility] [address] [id number] [address] [place] [address], [place] [id number] Sep, [facility] [address] [id number] [address] [place] [address], [place] [id number] Sep, [facility] [address] [id number] [address] [place] [address], [place] [address] Sep, [facility] [address] [id number] [address] [place] [address], [place] [address] Sep, [facility] [address] [id number] [address] [place] [address], [place] [id number] Sep, [facility] [address] [id number] [address] [place] [address], [place] [id number] Aug, [facility] [address] [id number] [address] [place] [address], [place] [address] Aug, [facility] [address] [id number] [address] [place] [address], [place] [id number] Aug, [facility] [address] [id number] [address] [place] [address], [place] [address] Aug, [facility] [address] [id number] [address] [place] [address], [place] [id number] Aug, [facility] [address] [id number] [address] [place] [address], [place] [id number] 18 Aug, 2012 [facility] [address] [id number] [address] [place] [address], [place] [id number] 13 Aug, 2012 [facility] [address] [id number] [address] [place] [address], [place] [address] Aug, [facility] [address] [id number] [address] [place] [address], [place] [address] Aug, [facility] [address] [id number] [address] [place] [address], [place] [address] Jul, [facility] [address] [id number] [address] [place] [id number] Jul, [facility] [address] [id number] [address] [place] [id number] Jul, [facility] [address] [id number] [address] [place] [id number] Jul, [facility] [address] [facility] [id number] [address] [place] [id number] Nov, [facility] [address] [id number] [address] [place] [id number] Sep, [facility] [address] [facility] [id number] [address] [place] [id number] Aug, [facility] [address] [facility] [id number] [address] [place] [phone] Aug, [facility] [address] [facility] [id number] [address] [place] [id number] Aug, [facility] [address] [facility] [id number] [address] [place] [id number] Jul, IMMUNIZATIONS No Known Immunizations SOCIAL HISTORY Never Assessed REASON FOR VISIT PLAN OF CARE VITAL SIGNS Height 74 in 2014-11-12 Weight 232.6 lbs 2014-11-12 Temperature 99.1 degrees Fahrenheit 2014-11-12 Heart Rate 110 bpm 2014-11-12 Respiratory Rate 20 2014-11-12 Blood pressure systolic 130 mmHg 2014-11-12 Blood pressure diastolic 78 mmHg 2014-11-12 MEDICATIONS Unknown Medications RESULTS No Results PROCEDURES Procedure Date Ordered Result Body Site ECG MONITOR/RECORD, 24 HRS Nov 12, 2014 INSTRUCTIONS MEDICATIONS ADMINISTERED No Known Medications [...] 05/2005 Surgical History Right Rotator Cuff Repair [facility] 06/2016 Surgical History Colonoscopy Elijah (1 Polyp) repeat 5 year s 2019 2014 Surgical History right rotator cuff surgery 06/27/2016 Hospitalization History Overdosed on Clonazepam #35. Lori melendrez 03/2014 Hospitalization History Overdosed on Xanax 07/2012 Hospitalization History Hypostension-medication side effect-[facility] 03/13/16
--- OUTSIDE RECORDS SUMMARY | 2019-09-11 12:32 | XMS REPORT ---
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 Active 736019211 Problem Abdominal pain R10.9 Active 36541 001 Problem Change in bowel habit R19.4 Active 37850507 Problem Coronary atherosclerosis due to lipid rich plaque I25.83 Active 58383085 Problem Type 2 diabetes mellitus with complication E11.8 Active 13294725 Problem Impotence N52.9 Active 346695806 Problem Family history of colon cancer Z80.0 Active 820351808 Problem Diabetic neuropathy, painful E11.40 A ctive 620292300 Problem Arm paresthesia, right R20.2 Active 40760202 Problem Gastroesophageal reflux disease without esophagitis K21.9 Active 421774044 Problem Drug abuse, opioid type F11.10 Active 4878609 Problem COPD exacerbation J44.1 Active 19 5917606 Problem Obstructive sleep apnea syndrome G47.33 Active 06663928 Problem Diverticulitis K57.92 Active 04593 6006 Problem Pain of right upper extremity M79.601 Active 465277917 Problem Respiratory bronchiolitis interstitial lung disease J84.115 Active 835761869 Problem Hypoxia R09.02 Active 061597558 Problem Interstitial lung disease J84.9 Acti ve [id number] ALLERGIES No Information ENCOUNTERS Encounter Location Date Diagnosis [facility] [address] [facility] [id number] [address] [place] [address] Aug, [facility] [address] [facility] [id number] [address] [place] [address] Aug, Diabetic neuropathy, painful E11.40 ; Interstitial lung disease J84.9 ; Chronic cough R05 ; Type 2 diabetes mellitus with complication E11.8 and 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 [facility] [address] [facility] [id number] [address] [place] [address] Jul, [facility] [address] [facility] [id number] [address] [place] [address] Jul, [facility] [address] [place] [id number] [place] [address] Jul, Diabetic neuropathy, painful E11.40 [place] [address] [address] Jul, Type 2 diabetes mellitus wit h complication E11.8 [facility] [address] [place] [id number] [place] [address] Jun, Diabetic neuropathy, painful E11.40 [facility] [address] [address] Jun, [facility] [address] [address] Jun, Type 2 diabetes mellitus wit h complication E11.8 ; Other viral agents as the cause of diseases classified elsewhere B97.89 ; Acute upper respiratory infection, unspecified J06.9 ; Acute recurrent maxillary sinusitis J01.01 ; Sore throat J02.9 and Headache R51 [facility] [id number] [place] [address] Jun, Right lower quadrant abdomin al pain R10.31 and Type 2 diabetes mellitus with complication E11.8 [place] [address] [address] [place] [id number] [place] [address] May, Diabetic neuropathy, painful E11.40 [facility] [address] [place] [id number] [place] [address] 06 May, 2017 COPD exacerbation J44.1 and Type 2 diabetes mellitus with complication E11.8 [facility] [address] [place] [id number] [place] [address] Apr, Diabetic neuropathy, painful E11.40 [place] [address] [address] Apr, Diabetic neuropathy, painful E11.40 [facility] [place] [address] [address] Mar, Bronchitis J40 [place] [address] [address] January, Type 2 diabetes mellitus wit h complication E11.8 ; Diabetic neuropathy, painful E11.40 ; Impotence N52.9 ; Coronary atherosclerosis due to lipid rich plaque I25.83 ; 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 ; Interstitial lung disease J84.9 ; Hypoxia R09.02 ; Essential hypertension I10 ; Gastroesophageal reflux disease without esophagitis K21.9 ; Left upper arm pain M79.622 and Cervical spinal stenosis M48.02 [facility] [place] [address] [address] January, Viral gastroenteritis A08.4 [place] [address] [address] Dec, Diabetic neuropathy, painful E11.40 [place] [address] [address] [place] [id number] [place] [id number] Oct, [place] [address] [address] Oct, Acute right-sided weakness M 62.89 and Slurring of speech R47.81 [place] [address] [address] Sep, Type 2 diabetes mellitus wit h complication E11.8 ; Diabetic neuropathy, painful E11.40 ; Impotence N52.9 ; Coronary atherosclerosis due to lipid rich plaque I25.83 ; 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 ; Interstitial lung disease J84.9 ; Hypoxia R09.02 ; Essential hypertension I10 and Gastroesophageal reflux disease without esophagitis K21.9 [facility] [address] [facility] [id number] [address] [place] [address] Sep, Bronchitis J40 [facility] [address] [facility] [id number] [address] [place] [address] Aug, Gastroenteritis and colitis, viral A08.4 [facility] [address] [facility] [id number] [address] [place] [address] Aug, [facility] [address] [facility] [id number] [address] [place] [address] Jun, Type 2 diabetes mellitus wit h complication E11.8 ; Diabetic neuropathy, painful E11.40 ; Impotence N52.9 ; Coronary atherosclerosis due to lipid rich plaque I25.83 ; 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 ; Interstitial lung disease J84.9 ; Hypoxia R09.02 and Essential hypertension I10 [facility] [address] [facility] [id number] [address] [place] [address] 30 May, 2016 Bronchitis J40 [facility] [address] [facility] [id number] [address] [place] [address] 29 May, 2016 [facility] [address] [facility] [id number] [address] [place] [address] May, Pain of right upper extremit y M79.601 [facility] [address] [facility] [id number] [address] [place] [address] May, [facility] [address] [facility] [id number] [address] [place] [address] 15 May, 2016 [facility] [address] [facility] [id number] [address] [place] [address] 07 May, 2016 Right hand pain M79.641 [facility] [address] [facility] [id number] [address] [place] [address] Apr, [facility] [address] [facility] [id number] [address] [place] [address] Apr, [facility] [address] [id number] [address] [place] [address] Mar, [facility] [address] [facility] [id number] [address] [place] [address] Mar, Essential hypertension I10 [facility] [address] [facility] [id number] [address] [place] [address] Feb, [facility] [address] [facility] [id number] [address] [place] [address] Feb, Interstitial lung disease J8 4.9 and Bronchitis J40 [place] [address] [address] [facility] [id number] [address] [place] [address] Feb, [place] [address] [address] [facility] [id number] [address] [place] [address] Feb, Type 2 diabetes mellitus wit h complication E11.8 ; Impotence N52.9 ; Coronary atherosclerosis due to lipid rich plaque I25.83 ; 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 and Diabetic neuropathy, painful E11.40 [place] [address] [address] [facility] [id number] [address] [place] [address] January, [place] [address] [address] [facility] [id number] [address] [place] [address] January, Arm paresthesia, right R20.2 and Pain of right upper extremity M79.601 [place] [address] [address] [facility] [id number] [address] [place] [address] Dec, Lumbar strain S39.012A [place] [address] [address] [facility] [id number] [address] [place] [address] Nov, Diabetic neuropathy, painful E11.40 ; Respiratory bronchiolitis interstitial lung disease J84.115 ; Pain of right upper extremity M79.601 and Arm paresthesia, right R20.2 [place] [address] [address] [facility] [id number] [address] [place] [address] Nov, Diabetic neuropathy, painful E11.[address] [facility] [address] Sep, Type 2 diabetes mellitus wit h complication E11.8 ; Impotence N52.9 ; Coronary atherosclerosis due to lipid rich plaque I25.83 ; 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 ; Diabetic neuropathy, painful E11.40 ; Chest pain R07.9 and Restless leg G25.[address] [address] Sep, [address] [address] Jul, COPD (chronic obstructive pu lmonary disease) with acute bronchitis J44.[address] [address] Jun, Abdominal pain R10.9 ; Famil y history of colon cancer Z80.0 and Diverticulitis K57.[address] [address] Jun, Abdominal pain R10.9 and Div erticulitis K57.[address] [address] Apr, Diabetes with other specifie d manifestations, type II or unspecified type, not stated as uncontrolled 250.80 ; Coronary atherosclerosis of unspecified type of vessel, benton or graft 414.00 ; Unspecified essential hypertension 401.9 ; Impotence of organic origin 607.84 ; Sleep apnea 780.57 and Interstitial lung disease [address] [address] Dec, [address] [address] Dec, [address] [address] Nov, [address] [address] Nov, [facility] [address] [id number] [address] [place] [address], [place] [address] Nov, [facility] [address] [id number] [address] [place] [address], [place] [address] Nov, [facility] [address] [id number] [address] [place] [address], [place] [address] Nov, [facility] [address] [id number] [address] [place] [address], [place] [address] Nov, [facility] [address] [id number] [address] [place] [address], [place] [address] Nov, [facility] [address] [id number] [address] [place] [address], [place] [address] Nov, [facility] [address] [id number] [address] [place] [address], [place] [address] Nov, [facility] [address] [id number] [address] [place] [address], [place] [address] Nov, [facility] [address] [id number] [address] [place] [address], [place] [address] Oct, [facility] [address] [id number] [address] [place] [address], [place] [address] Oct, 2014 [facility] [address] [id number] [address] [place] [address], [place] [address] Oct, 2014 [facility] [address] [id number] [address] [place] [address] Oct, 2014 [facility] [address] [id number] [address] [place] [address], [place] [address] Oct, 2014 [facility] [address] [id number] [address] [place] [address], [place] [address] Oct, 2014 [facility] [address] [id number] [address] [place] [address], [place] [address] Oct, 2014 [facility] [address] [id number] [address] [place] [address], [place] [address] 04 Oct, 2014 [facility] [address] [id number] [address] [place] [address], [place] [address] Oct, 2014 [facility] [address] [id number] [address] [place] [address], [place] [address] Oct, 2014 [facility] [address] [id number] [address] [place] [address], [place] [address] Oct, 2014 [facility] [address] [id number] [address] [place] [address], [place] [address] Jul, [facility] [address] [id number] [address] [place] [address], [place] [address] Jul, [facility] [address] [id number] [address] [place] [address], [place] [address] Jun, [facility] [address] [id number] [address] [place] [address], [place] [address] 29 Jun, 2014 [facility] [address] [id number] [address] [place] [address], [place] [address] Jun, [facility] [address] [id number] [address] [place] [address], [place] [address] 17 Jun, 2014 [facility] [address] [id number] [address] [place] [address], [place] [address] 15 Jun, 2014 [facility] [address] [id number] [address] [place] [address], [place] [address] 15 Jun, 2014 [facility] [address] [id number] [address] [place] [address], [place] [address] 14 Jun, 2014 [facility] [address] [id number] [address] [place] [address], [place] [address] 14 Jun, 2014 [facility] [address] [id number] [address] [place] [address], [place] [address] 13 Jun, 2014 [facility] [address] [id number] [address] [place] [address], [place] [address] Jun, [facility] [address] [id number] [address] [place] [address], [place] [address] 08 Jun, 2014 [facility] [address] [id number] [address] [place] [address], [place] [address] 08 Jun, 2014 [facility] [address] [id number] [address] [place] [address], [place] [address] Jun, [facility] [address] [id number] [address] [place] [address], [place] [address] Jun, [facility] [address] [id number] [address] [place] [address], [place] [address] 30 May, 2014 [facility] [address] [id number] [address] [place] [address], [place] [address] 30 May, 2014 [facility] [address] [id number] [address] [place] [address], [place] [address] May, [facility] [address] [id number] [address] [place] [address], [place] [address] May, [facility] [address] [id number] [address] [place] [address], [place] [address] 05 May, 2014 [facility] [address] [id number] [address] [place] [address], [place] [address] 05 May, 2014 [facility] [address] [id number] [address] [place] [address], [place] [address] Apr, [facility] [address] [id number] [address] [place] [address], [place] [address] Apr, [facility] [address] [id number] [address] [place] [address], [place] [address] Apr, [facility] [address] [id number] [address] [place] [address], [place] [address] Apr, [facility] [address] [id number] [address] [place] [address], [place] [address] Apr, [facility] [address] [id number] [address] [place] [address], [place] [address] Apr, [facility] [address] [id number] [facility] [address] Apr, [facility] [address] [id number] [facility] [address] Apr, [facility] [address] [id number] [facility] [address] Apr, [facility] [address] [id number] [address] [place] [address], [place] [address] Apr, [facility] [address] [id number] [address] [place] [address], [place] [address] Apr, [facility] [address] [id number] [address] [place] [address], [place] [address] Apr, [facility] [address] [id number] [address] [place] [address], [place] [address] Mar, [facility] [address] [id number] [address] [place] [address], [place] [address] Mar, [facility] [address] [id number] [address] [place] [address], [place] [address] Mar, [facility] [address] [id number] [address] [place] [address], [place] [address] Mar, [facility] [address] [id number] [address] [place] [address], [place] [address] Mar, [facility] [address] [id number] [address] [place] [address], [place] [address] Mar, [facility] [address] [id number] [address] [place] [address], [place] [address] Mar, [facility] [address] [id number] [address] [place] [address], [place] [address] Mar, [facility] [address] [id number] [address] [place] [address], [place] [address] Mar, [facility] [address] [id number] [facility] [address] Mar, [facility] [address] [id number] [facility] [address] Mar, [facility] [address] [id number] [facility] [address] Feb, [facility] [address] [id number] [facility] [address] Feb, [facility] [address] [id number] [address] [place] [address], [place] [address] Feb, [facility] [address] [id number] [address] [place] [address], [place] [address] Feb, [facility] [address] [id number] [address] [place] [address], [place] [address] Feb, [facility] [address] [id number] [address] [place] [address], [place] [address] Feb, [facility] [address] [id number] [address] [place] [address], [place] [address] Feb, [facility] [address] [id number] [address] [place] [address], [place] [address] Feb, [facility] [address] [id number] [address] [place] [address], [place] [address] Feb, [facility] [address] [id number] [address] [place] [address], [place] [address] Feb, [facility] [address] [id number] [address] [place] [address], [place] [address] January, [facility] [address] [id number] [address] [place] [address], [place] [address] January, [facility] [address] [id number] [address] [place] [address], [place] [address] January, [facility] [address] [id number] [address] [place] [address], [place] [address] January, [facility] [address] [id number] [facility] [address] January, [facility] [address] [id number] [address] [place] [address], [place] [address] January, [facility] [address] [id number] [address] [place] [address], [place] [address] January, [facility] [address] [id number] [address] [place] [address], [place] [address] January, [facility] [address] [id number] [address] [place] [address], [place] [address] January, [facility] [address] [id number] [address] [place] [address], [place] [address] January, [facility] [address] [id number] [address] [place] [address], [place] [address] January, [facility] [address] [id number] [address] [place] [address], [place] [address] January, [facility] [address] [id number] [address] [place] [address], [place] [address] January, [facility] [address] [id number] [address] [place] [address], [place] [address] January, [facility] [address] [id number] [address] [place] [address], [place] [address] January, [facility] [address] [id number] [address] [place] [address], [place] [address] January, [facility] [address] [id number] [address] [place] [address], [place] [address] Dec, [facility] [address] [id number] [address] [place] [address], [place] [address] Dec, [facility] [address] [id number] [address] [place] [address], [place] [address] Dec, [facility] [address] [id number] [address] [place] [address], [place] [address] 17 Dec, 2013 [facility] [address] [id number] [address] [place] [address], [place] [address] Dec, [facility] [address] [id number] [address] [place] [address], [place] [address] Dec, [facility] [address] [id number] [address] [place] [address], [place] [address] Dec, [facility] [address] [id number] [address] [place] [address], [place] [address] Dec, [facility] [address] [id number] [address] [place] [address], [place] [address] Dec, [facility] [address] [id number] [address] [place] [address], [place] [address] Dec, [facility] [address] [id number] [address] [place] [address], [place] [address] Nov, [facility] [address] [id number] [address] [place] [address], [place] [address] Nov, [facility] [address] [id number] [address] [place] [address], [place] [address] Oct, [facility] [address] [id number] [address] [place] [address], [place] [address] Oct, [facility] [address] [id number] [address] [place] [address], [place] [address] Oct, [facility] [address] [id number] [address] [place] [address], [place] [address] Sep, [facility] [address] [id number] [address] [place] [address], [place] [address] Sep, [facility] [address] [id number] [address] [place] [address], [place] [address] Sep, [facility] [address] [id number] [address] [place] [address], [place] [address] Sep, [facility] [address] [id number] [address] [place] [address], [place] [address] Sep, [facility] [address] [id number] [address] [place] [address], [place] [address] Sep, [facility] [address] [id number] [address] [place] [address], [place] [address] Sep, [facility] [address] [id number] [address] [place] [address], [place] [address] Sep, [facility] [address] [id number] [address] [place] [address], [place] [address] Sep, [facility] [address] [id number] [address] [place] [address], [place] [address] Sep, [facility] [address] [id number] [address] [place] [address], [place] [address] Sep, [facility] [address] [id number] [address] [place] [address], [place] [address] Sep, [facility] [address] [id number] [address] [place] [address], [place] [address] Aug, [facility] [address] [id number] [address] [place] [address], [place] [address] Aug, [facility] [address] [id number] [address] [place] [address], [place] [address] Aug, [facility] [address] [id number] [address] [place] [address], [place] [address] Aug, [facility] [address] [id number] [address] [place] [address], [place] [address] Jul, [facility] [address] [id number] [address] [place] [address], [place] [address] Jul, [facility] [address] [id number] [address] [place] [address], [place] [address] Jun, [facility] [address] [id number] [address] [place] [address] [place] [address] 30 Jun, 2013 [facility] [address] [id number] [address] [place] [address], [place] [address] Jun, [facility] [address] [id number] [address] [place] [address], [place] [address] Jun, [facility] [address] [id number] [address] [place] [address], [place] [address] Jun, [facility] [address] [id number] [address] [place] [address], [place] [address] Jun, [facility] [address] [id number] [address] [place] [address], [place] [address] Jun, [facility] [address] [id number] [address] [place] [address], [place] [address] Jun, [facility] [address] [id number] [address] [place] [address], [place] [address] 24 May, 2012 [facility] [address] [id number] [address] [place] [address], [place] [address] 23 May, 2012 [facility] [address] [id number] [address] [place] [address], [place] [address] 18 May, 2012 [facility] [address] [id number] [address] [place] [address], [place] [address] 13 May, 2012 [facility] [address] [id number] [address] [place] [address], [place] [address] 11 May, 2012 [facility] [address] [id number] [address] [place] [address], [place] [address] 06 May, 2012 [facility] [address] [id number] [address] [place] [address], [place] [address] 03 May, 2012 [facility] [address] [id number] [address] [place] [address], [place] [address] 30 Apr, 2013 [facility] [address] [id number] [address] [place] [address], [place] [address] 22 Apr, 2013 [facility] [address] [id number] [address] [place] [address], [place] [address] Apr, [facility] [address] [id number] [address] [place] [address], [place] [address] Apr, [facility] [address] [id number] [address] [place] [address], [place] [address] Apr, [facility] [address] [id number] [address] [place] [address], [place] [address] Apr, [facility] [address] [id number] [address] [place] [address], [place] [address] Apr, [facility] [address] [id number] [address] [place] [address], [place] [address] Mar, [facility] [address] [id number] [address] [place] [address], [place] [address] Mar, [facility] [address] [id number] [address] [place] [address], [place] [address] Mar, [facility] [address] [id number] [address] [place] [address], [place] [address] Mar, [facility] [address] [id number] [address] [place] [address], [place] [address] Mar, [facility] [address] [id number] [address] [place] [address], [place] [address] Mar, [facility] [address] [id number] [address] [place] [address], [place] [address] Mar, [facility] [address] [id number] [address] [place] [address], [place] [address] Mar, [facility] [address] [id number] [address] [place] [address], [place] [address] Feb, [facility] [address] [id number] [address] [place] [address], [place] [address] Feb, [facility] [address] [id number] [address] [place] [address], [place] [address] Feb, [facility] [address] [id number] [address] [place] [address], [place] [address] January, [facility] [address] [id number] [address] [place] [address], [place] [address] January, [facility] [address] [id number] [address] [place] [address], [place] [address] January, [facility] [address] [id number] [address] [place] [address], [place] [address] January, [facility] [address] [id number] [address] [place] [address], [place] [address] January, [facility] [address] [id number] [address] [place] [address], [place] [address] January, [facility] [address] [id number] [address] [place] [address], [place] [address] January, [facility] [address] [id number] [address] [place] [address], [place] [address] January, [facility] [address] [id number] [address] [place] [address], [place] [address] Dec, [facility] [address] [id number] [address] [place] [address], [place] [address] Dec, [facility] [address] [id number] [address] [place] [address], [place] [address] Dec, [facility] [address] [id number] [address] [place] [address], [place] [address] Dec, [facility] [address] [id number] [address] [place] [address], [place] [address] Dec, [facility] [address] [id number] [address] [place] [address], [place] [address] Nov, [facility] [address] [id number] [address] [place] [address], [place] [address] Nov, [facility] [address] [id number] [address] [place] [address], [place] [address] 19 Nov, 2012 [facility] [address] [id number] [address] [place] [address], [place] [address] 18 Nov, 2012 [facility] [address] [id number] [address] [place] [address], [place] [address] 18 Nov, 2012 [facility] [address] [id number] [address] [place] [address], [place] [address] 14 Nov, 2012 [facility] [address] [id number] [address] [place] [address], [place] [address] 11 Nov, 2012 [facility] [address] [id number] [address] [place] [address], [place] [address] 11 Nov, 2012 [facility] [address] [id number] [address] [place] [address], [place] [address] 21 Oct, 2012 [facility] [address] [id number] [address] [place] [address], [place] [address] 21 Oct, 2012 [facility] [address] [id number] [address] [place] [address], [place] [address] 12 Oct, 2012 [facility] [address] [id number] [address] [place] [address], [place] [address] 08 Oct, 2012 [facility] [address] [id number] [address] [place] [address], [place] [address] 07 Oct, 2012 [facility] [address] [id number] [address] [place] [address], [place] [address] 07 Oct, 2012 [facility] [address] [id number] [address] [place] [address], [place] [address] 05 Oct, 2012 [facility] [address] [id number] [address] [place] [address], [place] [address] 04 Oct, 2012 [facility] [address] [id number] [address] [place] [address], [place] [address] 04 Oct, 2012 [facility] [address] [id number] [address] [place] [address], [place] [address] Sep, [facility] [address] [id number] [address] [place] [address], [place] [address] Sep, [facility] [address] [id number] [address] [place] [address], [place] [address] Sep, [facility] [address] [id number] [address] [place] [address], [place] [address] Sep, [facility] [address] [id number] [address] [place] [address], [place] [address] Sep, [facility] [address] [id number] [address] [place] [address], [place] [address] Sep, [facility] [address] [id number] [address] [place] [address], [place] [address] Aug, [facility] [address] [id number] [address] [place] [address], [place] [address] Aug, [facility] [address] [id number] [address] [place] [address], [place] [address] Aug, [facility] [address] [id number] [address] [place] [address], [place] [address] Aug, [facility] [address] [id number] [address] [place] [address], [place] [address] Aug, [facility] [address] [id number] [address] [place] [address], [place] [address] 18 Aug, 2012 [facility] [address] [id number] [address] [place] [address], [place] [address] 13 Aug, 2012 [facility] [address] [id number] [address] [place] [address], [place] [address] Aug, [facility] [address] [id number] [address] [place] [address], [place] [address] Aug, [facility] [address] [id number] [address] [place] [address], [place] [address] Jul, [facility] [address] [id number] [address] [place] [address] Jul, [facility] [address] [id number] [address] [place] [address] Jul, [facility] [address] [id number] [address] [place] [address] Jul, [facility] [address] [facility] [id number] [address] [place] [address] Nov, [facility] [address] [id number] [address] [place] [address] Sep, [facility] [address] [facility] [id number] [address] [place] [address] Aug, [facility] [address] [facility] [id number] [address] [place] [address] Aug, [facility] [address] [facility] [id number] [address] [place] [address] Aug, [facility] [address] [facility] [id number] [address] [place] [address] Jul, IMMUNIZATIONS No Known Immunizations SOCIAL HISTORY Never Assessed REASON FOR VISIT PLAN OF CARE VITAL SIGNS MEDICATIONS Unknown Medications RESULTS No Results PROCEDURES Procedure Date Ordered Result Body Site MRI LUMBAR SPINE W/DYE December 09, 2014 INSTRUCTIONS MEDICATIONS ADMINISTERED No Known Medications [...] 05/2005 [facility] Surgical History Colonoscopy Kido (1 Polyp) repeat 5 year s 2019 2014 Surgical History right rotator cuff surgery 06/27/2016 Hospitalization History Overdosed on Clonazepam #35. Lori melendrez 03/2014 Hospitalization History Overdosed on Xanax 07/2012 Hospitalization History Hypostension-medication side effect-[facility] 03/13/16
--- OUTSIDE RECORDS SUMMARY | 2019-09-11 12:32 | XMS REPORT ---
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.4 Active 757840546 Problem Abdominal pain R10.9 Active 42978 001 Problem Change in bowel habit R19.4 Active 96150339 Problem Coronary atherosclerosis due to lipid rich plaque I25.83 Active 25883657 Problem Type 2 diabetes mellitus with complication E11.8 Active 05784936 Problem Impotence N52.9 Active 022832308 Problem Family history of colon cancer Z80.0 Active 833424418 Problem Diabetic neuropathy, painful E11.40 A ctive 536071277 Problem Arm paresthesia, right R20.2 Active 25324134 Problem Gastroesophageal reflux disease without esophagitis K21.9 Active 821347256 Problem Drug abuse, opioid type F11.10 Active 1708977 Problem COPD exacerbation J44.1 Active 19 9895126 Problem Obstructive sleep apnea syndrome G47.33 Active 39678366 Problem Diverticulitis K57.92 Active 01810 6006 Problem Pain of right upper extremity M79.601 Active 769272617 Problem Respiratory bronchiolitis interstitial lung disease J84.115 Active 624626050 Problem Hypoxia R09.02 Active 606005490 Problem Interstitial lung disease J84.9 Acti ve [id number] ALLERGIES No Information ENCOUNTERS Encounter Location Date Diagnosis [facility] [address] [facility] [id number] [address] [place] [address] Aug, [facility] [address] [facility] [id number] [address] [place] [address] Aug, Diabetic neuropathy, painful E11.40 ; Interstitial lung disease J84.9 ; Chronic cough R05 ; Type 2 diabetes mellitus with complication E11.8 and 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.4 [facility] [address] [facility] [id number] [address] [place] [address] Jul, [facility] [address] [facility] [id number] [address] [place] [address] Jul, [facility] [address] [place] [id number] [place] [address] Jul, Diabetic neuropathy, painful E11.40 [place] [address] [address] Jul, Type 2 diabetes mellitus wit h complication E11.8 [facility] [address] [place] [id number] [place] [address] Jun, Diabetic neuropathy, painful E11.40 [facility] [address] [address] Jun, [facility] [address] [address] Jun, Type 2 diabetes mellitus wit h complication E11.8 ; Other viral agents as the cause of diseases classified elsewhere B97.89 ; Acute upper respiratory infection, unspecified J06.9 ; Acute recurrent maxillary sinusitis J01.01 ; Sore throat J02.9 and Headache R51 [facility] [id number] [place] [address] Jun, Right lower quadrant abdomin al pain R10.31 and Type 2 diabetes mellitus with complication E11.8 [place] [address] [place] [id number] [place] [address] May, Diabetic neuropathy, painful E11.40 [facility] [address] [place] [id number] [place] [address] 06 May, 2017 COPD exacerbation J44.1 and Type 2 diabetes mellitus with complication E11.8 [facility] [address] [place] [id number] [place] [address] Apr, Diabetic neuropathy, painful E11.40 [place] [address] [address] Apr, Diabetic neuropathy, painful E11.40 [facility] [place] [address] [address] Mar, Bronchitis J40 [place] [address] [address] January, Type 2 diabetes mellitus wit h complication E11.8 ; Diabetic neuropathy, painful E11.40 ; Impotence N52.9 ; Coronary atherosclerosis due to lipid rich plaque I25.83 ; half-way current use of insulin Z79.4 ; Interstitial lung disease J84.9 ; Hypoxia R09.02 ; Essential hypertension I10 ; Gastroesophageal reflux disease without esophagitis K21.9 ; Left upper arm pain M79.622 and Cervical spinal stenosis M48.02 [facility] [place] [address] [address] January, Viral gastroenteritis A08.4 [place] [address] [address] Dec, Diabetic neuropathy, painful E11.40 [place] [address] [place] [id number] [place] [id number] Oct, [place] [address] [address] Oct, Acute right-sided weakness M 62.89 and Slurring of speech R47.81 [place] [address] [address] Sep, Type 2 diabetes mellitus wit h complication E11.8 ; Diabetic neuropathy, painful E11.40 ; Impotence N52.9 ; Coronary atherosclerosis due to lipid rich plaque I25.83 ; half-way current use of insulin Z79.4 ; Interstitial lung disease J84.9 ; Hypoxia R09.02 ; Essential hypertension I10 and Gastroesophageal reflux disease without esophagitis K21.9 [facility] [address] [facility] [id number] [address] [place] [address] Sep, Bronchitis J40 [facility] [address] [facility] [id number] [address] [place] [address] Aug, Gastroenteritis and colitis, viral A08.4 [facility] [address] [facility] [id number] [address] [place] [address] Aug, [facility] [address] [facility] [id number] [address] [place] [address] Jun, Type 2 diabetes mellitus wit h complication E11.8 ; Diabetic neuropathy, painful E11.40 ; Impotence N52.9 ; Coronary atherosclerosis due to lipid rich plaque I25.83 ; 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.4 ; Interstitial lung disease J84.9 ; Hypoxia R09.02 and Essential hypertension I10 [facility] [address] [facility] [id number] [address] [place] [address] 30 May, 2016 Bronchitis J40 [facility] [address] [facility] [id number] [address] [place] [address] 29 May, 2016 [facility] [address] [facility] [id number] [address] [place] [address] May, Pain of right upper extremit y M79.601 [facility] [address] [facility] [id number] [address] [place] [address] May, [facility] [address] [facility] [id number] [address] [place] [address] 15 May, 2016 [facility] [address] [facility] [id number] [address] [place] [address] 07 May, 2016 Right hand pain M79.641 [facility] [address] [facility] [id number] [address] [place] [address] Apr, [facility] [address] [facility] [id number] [address] [place] [address] Apr, [facility] [address] [id number] [address] [place] [address] Mar, [facility] [address] [facility] [id number] [address] [place] [address] Mar, Essential hypertension I10 [facility] [address] [facility] [id number] [address] [place] [address] Feb, [facility] [address] [facility] [id number] [address] [place] [address] Feb, Interstitial lung disease J8 4.9 and Bronchitis J40 [place] [address] [facility] [id number] [address] [place] [address] Feb, [place] [address] [facility] [id number] [address] [place] [address] Feb, Type 2 diabetes mellitus wit h complication E11.8 ; Impotence N52.9 ; Coronary atherosclerosis due to lipid rich plaque I25.83 ; 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.4 and Diabetic neuropathy, painful E11.40 [place] [address] [facility] [id number] [address] [place] [address] January, [place] [address] [facility] [id number] [address] [place] [address] January, Arm paresthesia, right R20.2 and Pain of right upper extremity M79.601 [place] [address] [facility] [id number] [address] [place] [address] Dec, Lumbar strain S39.012A [place] [address] [facility] [id number] [address] [place] [address] Nov, Diabetic neuropathy, painful E11.40 ; Respiratory bronchiolitis interstitial lung disease J84.115 ; Pain of right upper extremity M79.601 and Arm paresthesia, right R20.2 [place] [address] [facility] [id number] [address] [place] [address] Nov, Diabetic neuropathy, painful E11.[address] [facility] [address] [address] Sep, Type 2 diabetes mellitus wit h complication E11.8 ; Impotence N52.9 ; Coronary atherosclerosis due to lipid rich plaque I25.83 ; half-way current use of insulin Z79.4 ; Diabetic neuropathy, painful E11.40 ; Chest pain R07.9 and Restless leg G25.[address] [address] Sep, [address] [address] Jul, COPD (chronic obstructive pu lmonary disease) with acute bronchitis J44.[address] [address] Jun, Abdominal pain R10.9 ; Famil y history of colon cancer Z80.0 and Diverticulitis K57.[address] [address] Jun, Abdominal pain R10.9 and Div erticulitis K57.[address] [address] Apr, Diabetes with other specifie d manifestations, type II or unspecified type, not stated as uncontrolled 250.80 ; Coronary atherosclerosis of unspecified type of vessel, [place] or graft 414.00 ; Unspecified essential hypertension 401.9 ; Impotence of organic origin 607.84 ; Sleep apnea 780.57 and Interstitial lung disease [address] [address] Dec, [address] [address] Dec, [address] [address] Nov, [address] [address] Nov, [facility] [address] [id number] [address] [place] [address], [place] [address] Nov, [facility] [place] [facility] [address] [id number] [address] [place] [address], [place] [address] Nov, [facility] [place] [facility] [address] [id number] [address] [place] [address], [place] [address] Nov, [facility] [place] [facility] [address] [id number] [address] [place] [address], [place] [address] Nov, [facility] [place] [facility] [address] [id number] [address] [place] [address], [place] [address] Nov, [facility] [place] [facility] [address] [id number] [address] [place] [address], [place] [address] Nov, [facility] [place] [facility] [address] [id number] [address] [place] [address], [place] [address] Nov, [facility] [place] [facility] [address] [id number] [address] [place] [address], [place] [address] Nov, [facility] [place] [facility] [address] [id number] [address] [place] [address], [place] [address] Oct, [facility] [place] [facility] [address] [id number] [address] [place] [address], [place] [address] Oct, 2014 [facility] [place] [facility] [address] [id number] [address] [place] [address], [place] [address] Oct, 2014 [facility] [place] [facility] [address] [id number] [address] [place] [address] Oct, 2014 [facility] [place] [facility] [address] [id number] [address] [place] [address], [place] [address] Oct, 2014 [facility] [place] [facility] [address] [id number] [address] [place] [address], [place] [address] Oct, 2014 [facility] [place] [facility] [address] [id number] [address] [place] [address], [place] [address] Oct, 2014 [facility] [place] [facility] [address] [id number] [address] [place] [address], [place] [address] 04 Oct, 2014 [facility] [address] [id number] [address] [place] [address], [place] [address] Oct, 2014 [facility] [place] [facility] [address] [id number] [address] [place] [address], [place] [address] Oct, 2014 [facility] [address] [id number] [address] [place] [address], [place] [address] Oct, 2014 [facility] [place] [facility] [address] [id number] [address] [place] [address], [place] [address] Jul, [facility] [address] [id number] [address] [place] [address], [place] [address] Jul, [facility] [address] [id number] [address] [place] [address], [place] [address] Jun, [facility] [place] [facility] [address] [id number] [address] [place] [address], [place] [address] 29 Jun, 2014 [facility] [address] [id number] [address] [place] [address], [place] [address] Jun, [facility] [address] [id number] [address] [place] [address], [place] [address] 17 Jun, 2014 [facility] [address] [id number] [address] [place] [address], [place] [address] 15 Jun, 2014 [facility] [place] [facility] [address] [id number] [address] [place] [address], [place] [address] 15 Jun, 2014 [facility] [place] [facility] [address] [id number] [address] [place] [address], [place] [address] 14 Jun, 2014 [facility] [place] [facility] [address] [id number] [address] [place] [address], [place] [address] 14 Jun, 2014 [facility] [place] [facility] [address] [id number] [address] [place] [address], [place] [address] 13 Jun, 2014 [facility] [place] [facility] [address] [id number] [address] [place] [address], [place] [address] Jun, [facility] [place] [facility] [address] [id number] [address] [place] [address], [place] [address] 08 Jun, 2014 [facility] [place] [facility] [address] [id number] [address] [place] [address], [place] [address] 08 Jun, 2014 [facility] [place] [facility] [address] [id number] [address] [place] [address], [place] [address] Jun, [facility] [place] [facility] [address] [id number] [address] [place] [address], [place] [address] Jun, [facility] [place] [facility] [address] [id number] [address] [place] [address], [place] [address] 30 May, 2014 [facility] [place] [facility] [address] [id number] [address] [place] [address], [place] [address] 30 May, 2014 [facility] [place] [facility] [address] [id number] [address] [place] [address], [place] [address] May, [facility] [place] [facility] [address] [id number] [address] [place] [address], [place] [address] May, [facility] [place] [facility] [address] [id number] [address] [place] [address], [place] [address] 05 May, 2014 [facility] [place] [facility] [address] [id number] [address] [place] [address], [place] [address] 05 May, 2014 [facility] [place] [facility] [address] [id number] [address] [place] [address], [place] [address] Apr, [facility] [place] [facility] [address] [id number] [address] [place] [address], [place] [address] Apr, [facility] [place] [facility] [address] [id number] [address] [place] [address], [place] [address] Apr, [facility] [place] [facility] [address] [id number] [address] [place] [address], [place] [address] Apr, [facility] [place] [facility] [address] [id number] [address] [place] [address], [place] [address] Apr, [facility] [place] [facility] [address] [id number] [address] [place] [address], [place] [address] Apr, [facility] [address] [id number] [facility] [place] [address] Apr, [facility] [place] [facility] [address] [id number] [facility] [place] [address] Apr, [facility] [place] [facility] [address] [id number] [facility] [place] [address] Apr, [facility] [place] [facility] [address] [id number] [address] [place] [address], [place] [address] Apr, [facility] [place] [facility] [address] [id number] [address] [place] [address], [place] [address] Apr, [facility] [place] [facility] [address] [id number] [address] [place] [address], [place] [address] Apr, [facility] [address] [id number] [address] [place] [address], [place] [address] Mar, [facility] [place] [facility] [address] [id number] [address] [place] [address], [place] [address] Mar, [facility] [place] [facility] [address] [id number] [address] [place] [address], [place] [address] Mar, [facility] [place] [facility] [address] [id number] [address] [place] [address], [place] [address] Mar, [facility] [place] [facility] [address] [id number] [address] [place] [address], [place] [address] Mar, [facility] [place] [facility] [address] [id number] [address] [place] [address], [place] [address] Mar, [facility] [place] [facility] [address] [id number] [address] [place] [address], [place] [address] Mar, [facility] [place] [facility] [address] [id number] [address] [place] [address], [place] [address] Mar, [facility] [place] [facility] [address] [id number] [address] [place] [address], [place] [address] Mar, [facility] [place] [facility] [address] [id number] [facility] [place] [address] Mar, [facility] [place] [facility] [address] [id number] [facility] [place] [address] Mar, [facility] [place] [facility] [address] [id number] [facility] [place] [address] Feb, [facility] [place] [facility] [address] [id number] [facility] [place] [address] Feb, [facility] [place] [facility] [address] [id number] [address] [place] [address], [place] [address] Feb, [facility] [place] [facility] [address] [id number] [address] [place] [address], [place] [address] Feb, [facility] [place] [facility] [address] [id number] [address] [place] [address], [place] [address] Feb, [facility] [place] [facility] [address] [id number] [address] [place] [address], [place] [address] Feb, [facility] [place] [facility] [address] [id number] [address] [place] [address], [place] [address] Feb, [facility] [place] [facility] [address] [id number] [address] [place] [address], [place] [address] Feb, [facility] [place] [facility] [address] [id number] [address] [place] [address], [place] [address] Feb, [facility] [place] [facility] [address] [id number] [address] [place] [address], [place] [address] Feb, [facility] [place] [facility] [address] [id number] [address] [place] [address], [place] [address] January, [facility] [place] [facility] [address] [id number] [address] [place] [address], [place] [address] January, [facility] [place] [facility] [address] [id number] [address] [place] [address], [place] [address] January, [facility] [address] [id number] [address] [place] [address], [place] [address] January, [facility] [address] [id number] [facility] [place] [address] January, [facility] [address] [id number] [address] [place] [address], [place] [address] January, [facility] [address] [id number] [address] [place] [address], [place] [address] January, [facility] [address] [id number] [address] [place] [address], [place] [address] January, [facility] [address] [id number] [address] [place] [address], [place] [address] January, [facility] [address] [id number] [address] [place] [address], [place] [address] January, [facility] [address] [id number] [address] [place] [address], [place] [address] January, [facility] [address] [id number] [address] [place] [address], [place] [address] January, [facility] [address] [id number] [address] [place] [address], [place] [address] January, [facility] [address] [id number] [address] [place] [address], [place] [address] January, [facility] [address] [id number] [address] [place] [address], [place] [address] January, [facility] [address] [id number] [address] [place] [address], [place] [address] January, [facility] [address] [id number] [address] [place] [address], [place] [address] Dec, [facility] [address] [id number] [address] [place] [address], [place] [address] Dec, [facility] [address] [id number] [address] [place] [address], [place] [address] Dec, [facility] [address] [id number] [address] [place] [address], [place] [address] 17 Dec, 2013 [facility] [address] [id number] [address] [place] [address], [place] [address] Dec, [facility] [address] [id number] [address] [place] [address], [place] [address] Dec, [facility] [address] [id number] [address] [place] [address], [place] [address] Dec, [facility] [address] [id number] [address] [place] [address], [place] [address] Dec, [facility] [address] [id number] [address] [place] [address], [place] [address] Dec, [facility] [address] [id number] [address] [place] [address], [place] [address] Dec, [facility] [address] [id number] [address] [place] [address], [place] [address] Nov, [facility] [address] [id number] [address] [place] [address], [place] [address] Nov, [facility] [address] [id number] [address] [place] [address], [place] [address] Oct, [facility] [address] [id number] [address] [place] [address], [place] [address] Oct, [facility] [address] [id number] [address] [place] [address], [place] [address] Oct, [facility] [address] [id number] [address] [place] [address], [place] [address] Sep, [facility] [address] [id number] [address] [place] [address], [place] [address] Sep, [facility] [address] [id number] [address] [place] [address], [place] [address] Sep, [facility] [address] [id number] [address] [place] [address], [place] [address] Sep, [facility] [address] [id number] [address] [place] [address], [place] [address] Sep, [facility] [address] [id number] [address] [place] [address], [place] [address] Sep, [facility] [address] [id number] [address] [place] [address], [place] [address] Sep, [facility] [address] [id number] [address] [place] [address], [place] [address] Sep, [facility] [address] [id number] [address] [place] [address], [place] [address] Sep, [facility] [address] [id number] [address] [place] [address], [place] [address] Sep, [facility] [address] [id number] [address] [place] [address], [place] [address] Sep, [facility] [address] [id number] [address] [place] [address], [place] [address] Sep, [facility] [address] [id number] [address] [place] [address], [place] [address] Aug, [facility] [address] [id number] [address] [place] [address], [place] [address] Aug, [facility] [address] [id number] [address] [place] [address], [place] [address] Aug, [facility] [address] [id number] [address] [place] [address], [place] [address] Aug, [facility] [address] [id number] [address] [place] [address], [place] [address] Jul, [facility] [address] [id number] [address] [place] [address], [place] [address] Jul, [facility] [address] [id number] [address] [place] [address], [place] [address] Jun, [facility] [address] [id number] [address] [place] [address] [place] [address] 30 Jun, 2013 [facility] [address] [id number] [address] [place] [address], [place] [address] Jun, [facility] [address] [id number] [address] [place] [address], [place] [address] Jun, [facility] [address] [id number] [address] [place] [address], [place] [address] Jun, [facility] [address] [id number] [address] [place] [address], [place] [address] Jun, [facility] [address] [id number] [address] [place] [address], [place] [address] Jun, [facility] [address] [id number] [address] [place] [address], [place] [address] Jun, [facility] [address] [id number] [address] [place] [address], [place] [address] 24 May, 2012 [facility] [address] [id number] [address] [place] [address], [place] [address] 23 May, 2012 [facility] [address] [id number] [address] [place] [address], [place] [address] 18 May, 2012 [facility] [address] [id number] [address] [place] [address], [place] [address] 13 May, 2012 [facility] [address] [id number] [address] [place] [address], [place] [address] 11 May, 2012 [facility] [address] [id number] [address] [place] [address], [place] [address] 06 May, 2012 [facility] [address] [id number] [address] [place] [address], [place] [address] 03 May, 2012 [facility] [address] [id number] [address] [place] [address], [place] [address] 30 Apr, 2013 [facility] [address] [id number] [address] [place] [address], [place] [address] 22 Apr, 2013 [facility] [address] [id number] [address] [place] [address], [place] [address] Apr, [facility] [address] [id number] [address] [place] [address], [place] [address] Apr, [facility] [address] [id number] [address] [place] [address], [place] [address] Apr, [facility] [address] [id number] [address] [place] [address], [place] [address] Apr, [facility] [address] [id number] [address] [place] [address], [place] [address] Apr, [facility] [address] [id number] [address] [place] [address], [place] [address] Mar, [facility] [address] [id number] [address] [place] [address], [place] [address] Mar, [facility] [address] [id number] [address] [place] [address], [place] [address] Mar, [facility] [address] [id number] [address] [place] [address], [place] [address] Mar, [facility] [address] [id number] [address] [place] [address], [place] [address] Mar, [facility] [address] [id number] [address] [place] [address], [place] [address] Mar, [facility] [address] [id number] [address] [place] [address], [place] [address] Mar, [facility] [address] [id number] [address] [place] [address], [place] [address] Mar, [facility] [address] [id number] [address] [place] [address], [place] [address] Feb, [facility] [address] [id number] [address] [place] [address], [place] [address] Feb, [facility] [address] [id number] [address] [place] [address], [place] [address] Feb, [facility] [address] [id number] [address] [place] [address], [place] [address] January, [facility] [address] [id number] [address] [place] [address], [place] [address] January, [facility] [address] [id number] [address] [place] [address], [place] [address] January, [facility] [address] [id number] [address] [place] [address], [place] [address] January, [facility] [address] [id number] [address] [place] [address], [place] [address] January, [facility] [address] [id number] [address] [place] [address], [place] [address] January, [facility] [address] [id number] [address] [place] [address], [place] [address] January, [facility] [address] [id number] [address] [place] [address], [place] [address] January, [facility] [address] [id number] [address] [place] [address], [place] [address] Dec, [facility] [address] [id number] [address] [place] [address], [place] [address] Dec, [facility] [address] [id number] [address] [place] [address], [place] [address] Dec, [facility] [address] [id number] [address] [place] [address], [place] [address] Dec, [facility] [address] [id number] [address] [place] [address], [place] [address] Dec, [facility] [address] [id number] [address] [place] [address], [place] [address] Nov, [facility] [address] [id number] [address] [place] [address], [place] [address] Nov, [facility] [address] [id number] [address] [place] [address], [place] [address] 19 Nov, 2012 [facility] [address] [id number] [address] [place] [address], [place] [address] 18 Nov, 2012 [facility] [address] [id number] [address] [place] [address], [place] [address] 18 Nov, 2012 [facility] [address] [id number] [address] [place] [address], [place] [address] 14 Nov, 2012 [facility] [address] [id number] [address] [place] [address], [place] [address] 11 Nov, 2012 [facility] [address] [id number] [address] [place] [address], [place] [address] 11 Nov, 2012 [facility] [address] [id number] [address] [place] [address], [place] [address] 21 Oct, 2012 [facility] [address] [id number] [address] [place] [address], [place] [address] 21 Oct, 2012 [facility] [address] [id number] [address] [place] [address], [place] [address] 12 Oct, 2012 [facility] [address] [id number] [address] [place] [address], [place] [address] 08 Oct, 2012 [facility] [address] [id number] [address] [place] [address], [place] [address] 07 Oct, 2012 [facility] [address] [id number] [address] [place] [address], [place] [address] 07 Oct, 2012 [facility] [address] [id number] [address] [place] [address], [place] [address] 05 Oct, 2012 [facility] [address] [id number] [address] [place] [address], [place] [address] 04 Oct, 2012 [facility] [address] [id number] [address] [place] [address], [place] [address] 04 Oct, 2012 [facility] [address] [id number] [address] [place] [address], [place] [address] Sep, [facility] [address] [id number] [address] [place] [address], [place] [address] Sep, [facility] [address] [id number] [address] [place] [address], [place] [address] Sep, [facility] [address] [id number] [address] [place] [address], [place] [address] Sep, [facility] [address] [id number] [address] [place] [address], [place] [address] Sep, [facility] [address] [id number] [address] [place] [address], [place] [address] Sep, [facility] [address] [id number] [address] [place] [address], [place] [address] Aug, [facility] [address] [id number] [address] [place] [address], [place] [address] Aug, [facility] [address] [id number] [address] [place] [address], [place] [address] Aug, [facility] [address] [id number] [address] [place] [address], [place] [address] Aug, [facility] [address] [id number] [address] [place] [address], [place] [address] Aug, [facility] [address] [id number] [address] [place] [address], [place] [address] 18 Aug, 2012 [facility] [address] [id number] [address] [place] [address], [place] [address] 13 Aug, 2012 [facility] [address] [id number] [address] [place] [address], [place] [address] Aug, [facility] [address] [id number] [address] [place] [address], [place] [address] Aug, [facility] [address] [id number] [address] [place] [address], [place] [address] Jul, [facility] [address] [id number] [address] [place] [address] Jul, [facility] [address] [id number] [address] [place] [address] Jul, [facility] [address] [id number] [address] [place] [address] Jul, [facility] [address] [facility] [id number] [address] [place] [address] Nov, [facility] [address] [facility] [id number] [address] [place] [address] Sep, [facility] [address] [facility] [id number] [address] [place] [address] Aug, [facility] [address] [facility] [id number] [address] [place] [address] Aug, [facility] [address] [facility] [id number] [address] [place] [address] Aug, [facility] [address] [facility] [id number] [address] [place] [address] Jul, IMMUNIZATIONS No Known Immunizations SOCIAL HISTORY [...]
--- OUTSIDE RECORDS SUMMARY | 2019-09-11 12:32 | XMS REPORT ---
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9 Active 771758295 Problem Family history of colon cancer Z80.0 Active 263474916 Problem Diabetic neuropathy, painful E11.40 A ctive 819868440 Problem Arm paresthesia, right R20.2 Active 30690231 Problem Gastroesophageal reflux disease without esophagitis K21.9 Active 871255170 Problem Drug abuse, opioid type F11.10 Active 1800928 Problem COPD exacerbation J44.1 Active 19 1013936 Problem Obstructive sleep apnea syndrome G47.33 Active 27232553 Problem Diverticulitis K57.92 Active 19376 6006 Problem Pain of right upper extremity M79.601 Active 326025157 Problem Respiratory bronchiolitis interstitial lung disease J84.115 Active 734223478 Problem Hypoxia R09.02 Active 565665738 Problem Interstitial lung disease J84.9 Acti ve [id number] ALLERGIES No Information ENCOUNTERS Encounter Location Date Diagnosis [facility] [address] [facility] [id number] [address] [place] [address] Aug, [facility] [address] [facility] [id number] [address] [place] [address] Aug, Diabetic neuropathy, painful E11.40 ; Interstitial lung disease J84.9 ; Chronic cough R05 ; Type 2 diabetes mellitus with complication E11.8 and [facility] current use of insulin Z79.4 [facility] [address] [facility] [id number] [address] [place] [address] Jul, [facility] [address] [facility] [id number] [address] [place] [address] Jul, [facility] [address] [facility] [id number] [address] [place] [address] Jul, Diabetic neuropathy, painful E11.40 [facility] [address] [facility] [id number] [address] [place] [address] Jul, Type 2 diabetes mellitus wit h complication E11.8 [facility] [address] [facility] [id number] [address] [place] [address] Jun, Diabetic neuropathy, painful E11.40 [facility] [address] [facility] [id number] [address] [place] [address] Jun, [facility] [address] [facility] [id number] [address] [place] [address] Jun, Type 2 diabetes mellitus wit h complication E11.8 ; Other viral agents as the cause of diseases classified elsewhere B97.89 ; Acute upper respiratory infection, unspecified J06.9 ; Acute recurrent maxillary sinusitis J01.01 ; Sore throat J02.9 and Headache R51 [facility] [address] [facility] [id number] [address] [place] [address] Jun, Right lower quadrant abdomin al pain R10.31 and Type 2 diabetes mellitus with complication E11.8 [facility] [address] [facility] [id number] [address] [place] [address] May, Diabetic neuropathy, painful E11.40 [facility] [address] [facility] [id number] [address] [place] [address] May, COPD exacerbation J44.1 and Type 2 diabetes mellitus with complication E11.8 [facility] [address] [facility] [id number] [address] [place] [address] Apr, Diabetic neuropathy, painful E11.40 [facility] [address] [place] [id number] [address] [place] [address] Apr, Diabetic neuropathy, painful E11.40 [facility] [place] [id number] [address] Mar, Bronchitis J40 [place] [address] [address] January, Type 2 diabetes mellitus wit h [...] Cervical spinal stenosis M48.02 [facility] [place] [address] [address] January, Viral gastroenteritis A08.4 [place] [address] [place] [id number] [address] [place] [address] Dec, Diabetic neuropathy, painful E11.40 [facility] [address] [place] [id number] [place] [id number] Oct, [place] [address] [address] Oct, Acute right-sided weakness M 62.89 and Slurring of speech R47.81 [place] [address] [place] [id number] [address] [place] [address] Sep, Type 2 diabetes mellitus wit h complication E11.8 ; Diabetic neuropathy, painful E11.40 ; Impotence N52.9 ; Coronary atherosclerosis due to lipid rich plaque I25.83 ; 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 ; Interstitial lung disease J84.9 ; Hypoxia R09.02 ; Essential hypertension I10 and Gastroesophageal reflux disease without esophagitis K21.9 [facility] [address] [place] [id number] [address] [place] [address] Sep, Bronchitis J40 [facility] [address] [facility] [id number] [address] [place] [address] Aug, Gastroenteritis and colitis, viral A08.4 [facility] [address] [facility] [id number] [address] [place] [address] Aug, [facility] [address] [facility] [id number] [address] [place] [address] Jun, Type 2 diabetes mellitus wit h complication E11.8 ; Diabetic neuropathy, painful E11.40 ; Impotence N52.9 ; Coronary atherosclerosis due to lipid rich plaque I25.83 ; [facility] current use of insulin Z79.4 ; Interstitial lung disease J84.9 ; Hypoxia R09.02 and Essential hypertension I10 [facility] [address] [facility] [id number] [address] [place] [address] 30 May, 2016 Bronchitis J40 [facility] [address] [facility] [id number] [address] [place] [address] 29 May, 2016 [facility] [address] [facility] [id number] [address] [place] [address] May, Pain of right upper extremit y M79.601 [facility] [address] [facility] [id number] [address] [place] [address] May, [facility] [address] [facility] [id number] [address] [place] [address] 15 May, 2016 [facility] [address] [facility] [id number] [address] [place] [address] May, Right hand pain M79.641 [facility] [address] [facility] [id number] [address] [place] [address] Apr, [facility] [address] [facility] [id number] [address] [place] [address] Apr, [facility] [address] [facility] [id number] [address] [place] [address] Mar, [place] [address] [place] [id number] [address] [place] [address] Mar, Essential hypertension I10 [place] [address] [facility] [id number] [address] [place] [address] Feb, [place] [address] [place] [id number] [address] [place] [address] Feb, Interstitial lung disease J8 4.9 and Bronchitis J40 [place] [address] [place] [id number] [address] [place] [address] Feb, [place] [address] [place] [address] Feb, Type 2 diabetes mellitus wit h complication E11.8 ; Impotence N52.9 ; Coronary atherosclerosis due to lipid rich plaque I25.83 ; [facility] current use of insulin Z79.4 and Diabetic neuropathy, painful E11.40 [place] [address] [place] [address] January, [place] [address] [place] [id number] [address] [place] [address] January, Arm paresthesia, right R20.2 and Pain of right upper extremity M79.601 [place] [address] [place] [address] Dec, Lumbar strain S39.012A [place] [address] [place] [id number] [address] [place] [address] Nov, Diabetic neuropathy, painful E11.40 ; Respiratory bronchiolitis interstitial lung disease J84.115 ; Pain of right upper extremity M79.601 and Arm paresthesia, right R20.2 [place] [address] [place] [id number] [address] [place] [address] Nov, Diabetic neuropathy, painful E11.40 [place] [address] [place] [id number] [address] [place] [address] Sep, Type 2 diabetes mellitus wit h complication E11.8 ; Impotence N52.9 ; Coronary atherosclerosis due to lipid rich plaque I25.83 ; 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 ; Diabetic neuropathy, painful E11.40 ; Chest pain R07.9 and Restless leg G25.81 [place] [address] [address] Sep, [address] [address] Jul, COPD (chronic obstructive pu lmonary disease) with acute bronchitis J44.[address] [address] Jun, Abdominal pain R10.9 ; Famil y history of colon cancer Z80.0 and Diverticulitis K57.[address] [address] Jun, Abdominal pain R10.9 and Div erticulitis K57.[address] [address] Apr, Diabetes with other specifie d manifestations, type II or unspecified type, not stated as uncontrolled 250.80 ; Coronary atherosclerosis of unspecified type of vessel, [place] or graft 414.00 ; Unspecified essential hypertension 401.9 ; Impotence of organic origin 607.84 ; Sleep apnea 780.57 and Interstitial lung disease [address] [address] Dec, [address] [address] Dec, [address] [address] Nov, [address] [address] Nov, [address] [address] Nov, [facility] [address] [id number] [address] [place] [address], [place] [address] Nov, [facility] [address] [id number] [address] [place] [address], [place] [address] Nov, [facility] [address] [id number] [address] [place] [address], [place] [address] Nov, [facility] [address] [id number] [address] [place] [address], [place] [address] Nov, [facility] [address] [id number] [address] [place] [address], [place] [address] Nov, [facility] [address] [id number] [address] [place] [address], [place] [address] Nov, [facility] [address] [id number] [address] [place] [address], [place] [address] Nov, [facility] [address] [id number] [address] [place] [address], [place] [address] Oct, 2014 [facility] [address] [id number] [address] [place] [address], [place] [address] Oct, 2014 [facility] [address] [id number] [address] [place] [address], [place] [address] Oct, 2014 [facility] [address] [id number] [address] [place] [address], [place] [address] Oct, 2014 [facility] [address] [id number] [address] [place] [address], [place] [address] Oct, 2014 [facility] [address] [id number] [address] [place] [address], [place] [address] Oct, 2014 [facility] [address] [id number] [address] [place] [address], [place] [address] Oct, 2014 [facility] [address] [id number] [address] [place] [address], [place] [address] Oct, 2014 [facility] [address] [id number] [address] [place] [address], [place] [address] 03 Oct, 2014 [facility] [address] [id number] [address] [place] [address], [place] [address] Oct, 2014 [facility] [address] [id number] [address] [place] [address], [place] [address] Oct, 2014 [facility] [address] [id number] [address] [place] [address], [place] [address] Jul, 2013 [facility] [address] [id number] [address] [place] [address], [place] [address] Jul, 2013 [facility] [address] [id number] [address] [place] [address], [place] [address] 29 Jun, 2014 [facility] [address] [id number] [address] [place] [address], [place] [address] 29 Jun, 2014 [facility] [address] [id number] [address] [place] [address], [place] [address] 17 Jun, 2014 [facility] [address] [id number] [address] [place] [address], [place] [address] 17 Jun, 2014 [facility] [address] [id number] [address] [place] [address], [place] [address] 15 Jun, 2014 [facility] [address] [id number] [address] [place] [address], [place] [address] 15 Jun, 2014 [facility] [address] [id number] [address] [place] [address], [place] [address] 14 Jun, 2014 [facility] [address] [id number] [address] [place] [address], [place] [address] 14 Jun, 2014 [facility] [address] [id number] [address] [place] [address], [place] [address] 13 Jun, 2014 [facility] [address] [id number] [address] [place] [address], [place] [address] 13 Jun, 2014 [facility] [address] [id number] [address] [place] [address], [place] [address] Jun, [facility] [address] [id number] [address] [place] [address], [place] [address] 08 Jun, 2014 [facility] [address] [id number] [address] [place] [address], [place] [address] Jun, [facility] [address] [id number] [address] [place] [address], [place] [address] Jun, [facility] [address] [id number] [address] [place] [address], [place] [address] 30 May, 2014 [facility] [address] [id number] [address] [place] [address], [place] [address] 30 May, 2014 [facility] [address] [id number] [address] [place] [address], [place] [address] May, [facility] [address] [id number] [address] [place] [address], [place] [address] May, [facility] [address] [id number] [address] [place] [address], [place] [address] May, [facility] [address] [id number] [address] [place] [address], [place] [address] May, [facility] [address] [id number] [address] [place] [address], [place] [address] Apr, [facility] [address] [id number] [address] [place] [address], [place] [address] Apr, [facility] [address] [id number] [address] [place] [address], [place] [address] Apr, [facility] [address] [id number] [address] [place] [address], [place] [address] Apr, [facility] [address] [id number] [address] [place] [address], [place] [address] Apr, [facility] [address] [id number] [address] [place] [address], [place] [address] Apr, [facility] [address] [id number] [facility] [place] [address] Apr, [facility] [address] [id number] [address] [place] [address], [place] [address] Apr, [facility] [address] [id number] [address] [place] [address], [place] [address] Apr, [facility] [address] [id number] [address] [place] [address], [place] [address] Apr, [facility] [address] [id number] [address] [place] [address], [place] [address] Apr, [facility] [address] [id number] [address] [place] [address], [place] [address] Apr, [facility] [address] [id number] [address] [place] [address], [place] [address] Mar, [facility] [address] [id number] [address] [place] [address], [place] [address] Mar, [facility] [address] [id number] [address] [place] [address], [place] [address] Mar, [facility] [address] [id number] [address] [place] [address], [place] [address] Mar, [facility] [address] [id number] [address] [place] [address], [place] [address] Mar, [facility] [address] [id number] [address] [place] [address], [place] [address] Mar, [facility] [address] [id number] [address] [place] [address], [place] [address] Mar, [facility] [address] [id number] [address] [place] [address], [place] [address] Mar, [facility] [address] [id number] [address] [place] [address], [place] [address] Mar, [facility] [address] [id number] [address] [place] [address], [place] [address] Mar, [facility] [address] [id number] [address] [place] [address], [place] [address] Mar, [facility] [address] [id number] [address] [place] [address], [place] [address] Feb, [facility] [address] [id number] [address] [place] [address], [place] [address] Feb, [facility] [address] [id number] [address] [place] [address], [place] [address] Feb, [facility] [address] [id number] [address] [place] [address], [place] [address] Feb, [facility] [address] [id number] [address] [place] [address], [place] [address] Feb, [facility] [address] [id number] [address] [place] [address], [place] [address] Feb, [facility] [address] [id number] [address] [place] [address], [place] [address] Feb, [facility] [address] [id number] [address] [place] [address], [place] [address] Feb, [facility] [address] [id number] [address] [place] [address], [place] [address] Feb, [facility] [address] [id number] [address] [place] [address], [place] [address] Feb, [facility] [address] [id number] [address] [place] [address], [place] [address] January, [facility] [address] [id number] [address] [place] [address], [place] [address] January, [facility] [address] [id number] [address] [place] [address], [place] [address] January, [facility] [address] [id number] [address] [place] [address], [place] [address] January, [facility] [address] [id number] [address] [place] [address], [place] [address] January, [facility] [address] [id number] [facility] [place] [address] January, [facility] [address] [id number] [address] [place] [address], [place] [address] January, [facility] [address] [id number] [address] [place] [address], [place] [address] January, [facility] [address] [id number] [address] [place] [address], [place] [address] January, [facility] [address] [id number] [address] [place] [address], [place] [address] January, [facility] [address] [id number] [address] [place] [address], [place] [address] January, [facility] [address] [id number] [address] [place] [address], [place] [address] January, [facility] [address] [id number] [address] [place] [address], [place] [address] January, [facility] [address] [id number] [address] [place] [address], [place] [address] January, [facility] [address] [id number] [address] [place] [address], [place] [address] January, [facility] [address] [id number] [address] [place] [address], [place] [address] January, [facility] [address] [id number] [address] [place] [address], [place] [address] Dec, [facility] [address] [id number] [address] [place] [address], [place] [address] Dec, [facility] [address] [id number] [address] [place] [address], [place] [address] Dec, [facility] [address] [id number] [address] [place] [address], [place] [address] Dec, [facility] [address] [id number] [facility] [place] [address] Dec, [facility] [address] [id number] [address] [place] [address], [place] [address] Dec, [facility] [address] [id number] [address] [place] [address], [place] [address] Dec, [facility] [address] [id number] [address] [place] [address], [place] [address] Dec, [facility] [address] [id number] [address] [place] [address], [place] [address] Dec, [facility] [address] [id number] [address] [place] [address], [place] [address] Dec, [facility] [address] [id number] [address] [place] [address], [place] [address] Nov, [facility] [address] [id number] [address] [place] [address], [place] [address] Nov, [facility] [address] [id number] [address] [place] [address], [place] [address] Oct, [facility] [address] [id number] [address] [place] [address], [place] [address] Oct, [facility] [address] [id number] [address] [place] [address], [place] [address] Oct, [facility] [address] [id number] [address] [place] [address], [place] [address] Sep, [facility] [address] [id number] [address] [place] [address], [place] [address] Sep, [facility] [address] [id number] [address] [place] [address], [place] [address] Sep, [facility] [address] [id number] [address] [place] [address], [place] [address] Sep, [facility] [address] [id number] [address] [place] [address], [place] [address] Sep, [facility] [address] [id number] [address] [place] [address], [place] [address] Sep, [facility] [address] [id number] [address] [place] [address], [place] [address] Sep, [facility] [address] [id number] [address] [place] [address], [place] [address] Sep, [facility] [address] [id number] [address] [place] [address], [place] [address] Sep, [facility] [address] [id number] [address] [place] [address], [place] [address] Sep, [facility] [address] [id number] [address] [place] [address], [place] [address] Sep, [facility] [address] [id number] [address] [place] [address], [place] [address] Sep, [facility] [address] [id number] [address] [place] [address], [place] [address] Aug, [facility] [address] [id number] [address] [place] [address], [place] [address] Aug, [facility] [address] [id number] [address] [place] [address], [place] [address] Aug, [facility] [address] [id number] [address] [place] [address], [place] [address] Aug, [facility] [address] [id number] [address] [place] [address] Jul, [facility] [address] [id number] [address] [place] [address], [place] [address] Jul, [facility] [address] [id number] [address] [place] [address], [place] [address] Jun, [facility] [address] [id number] [address] [place] [address], [place] [address] Jun, [facility] [address] [id number] [address] [place] [address], [place] [address] Jun, [facility] [address] [id number] [address] [place] [address], [place] [address] Jun, [facility] [address] [id number] [address] [place] [address], [place] [address] Jun, [facility] [address] [id number] [address] [place] [address], [place] [address] Jun, [facility] [address] [id number] [address] [place] [address], [place] [address] Jun, [facility] [address] [id number] [address] [place] [address], [place] [address] Jun, [facility] [address] [id number] [address] [place] [address], [place] [address] 24 May, 2013 [facility] [address] [id number] [address] [place] [address], [place] [address] 23 May, 2012 [facility] [address] [id number] [address] [place] [address], [place] [address] 18 May, 2012 [facility] [address] [id number] [address] [place] [address], [place] [address] 13 May, 2013 [facility] [address] [id number] [address] [place] [address], [place] [address] 11 May, 2013 [facility] [address] [id number] [address] [place] [address], [place] [address] 06 May, 2012 [facility] [address] [id number] [address] [place] [address], [place] [address] 03 May, 2012 [facility] [address] [id number] [address] [place] [address], [place] [address] 30 Apr, 2013 [facility] [address] [id number] [address] [place] [address], [place] [address] Apr, [facility] [address] [id number] [address] [place] [address], [place] [address] Apr, [facility] [address] [id number] [address] [place] [address], [place] [address] Apr, [facility] [address] [id number] [address] [place] [address], [place] [address] Apr, [facility] [address] [id number] [address] [place] [address], [place] [address] Apr, [facility] [address] [id number] [address] [place] [address], [place] [address] Apr, [facility] [address] [id number] [address] [place] [address], [place] [address] Mar, [facility] [address] [id number] [address] [place] [address], [place] [address] Mar, [facility] [address] [id number] [address] [place] [address], [place] [address] Mar, [facility] [address] [id number] [address] [place] [address], [place] [address] Mar, [facility] [address] [id number] [address] [place] [address], [place] [address] Mar, [facility] [address] [id number] [address] [place] [address], [place] [address] Mar, [facility] [address] [id number] [address] [place] [address], [place] [address] Mar, [facility] [address] [id number] [address] [place] [address], [place] [address] Mar, [facility] [address] [id number] [address] [place] [address], [place] [address] Feb, [facility] [address] [id number] [address] [place] [address], [place] [address] Feb, [facility] [address] [id number] [address] [place] [address], [place] [address] Feb, [facility] [address] [id number] [address] [place] [address], [place] [address] January, [facility] [address] [id number] [address] [place] [address], [place] [address] January, [facility] [place] [address] [id number] [address] [place] [address], [place] [address] January, [facility] [address] [id number] [address] [place] [address], [place] [address] January, [facility] [address] [id number] [address] [place] [address], [place] [address] January, [facility] [address] [id number] [address] [place] [address], [place] [address] January, [facility] [place] [address] [id number] [address] [place] [address], [place] [address] January, [facility] [address] [id number] [address] [place] [address], [place] [address] January, [facility] [place] [address] [id number] [address] [place] [address], [place] [address] Dec, [facility] [address] [id number] [address] [place] [address], [place] [address] Dec, [facility] [place] [address] [id number] [address] [place] [address], [place] [address] Dec, [facility] [address] [id number] [address] [place] [address], [place] [address] Dec, [facility] [address] [id number] [address] [place] [address], [place] [address] Dec, [facility] [address] [id number] [address] [place] [address], [place] [address] Nov, [facility] [address] [id number] [address] [place] [address], [place] [address] Nov, [facility] [address] [id number] [address] [place] [address], [place] [address] Nov, [facility] [address] [id number] [address] [place] [address], [place] [address] 18 Nov, 2012 [facility] [address] [id number] [address] [place] [address], [place] [address] 18 Nov, 2012 [facility] [address] [id number] [address] [place] [address], [place] [address] 14 Nov, 2012 [facility] [address] [id number] [address] [place] [address], [place] [address] 11 Nov, 2012 [facility] [address] [id number] [address] [place] [address], [place] [address] 11 Nov, 2012 [facility] [address] [id number] [address] [place] [address], [place] [address] 21 Oct, 2012 [facility] [address] [id number] [address] [place] [address], [place] [address] Oct, [facility] [address] [id number] [address] [place] [address], [place] [address] 12 Oct, 2012 [facility] [place] [address] [id number] [address] [place] [address], [place] [address] 08 Oct, 2012 [facility] [address] [id number] [address] [place] [address], [place] [address] 07 Oct, 2012 [facility] [address] [id number] [address] [place] [address], [place] [address] 07 Oct, 2012 [facility] [address] [id number] [address] [place] [address], [place] [address] 05 Oct, 2012 [facility] [address] [id number] [address] [place] [address], [place] [address] 04 Oct, 2012 [facility] [address] [id number] [address] [place] [address], [place] [address] 04 Oct, 2012 [facility] [address] [id number] [address] [place] [address], [place] [address] Sep, [facility] [address] [id number] [address] [place] [address], [place] [address] Sep, [facility] [address] [id number] [address] [place] [address], [place] [address] Sep, [facility] [address] [id number] [address] [place] [address], [place] [address] Sep, [facility] [address] [id number] [address] [place] [address], [place] [address] Sep, [facility] [address] [id number] [address] [place] [address], [place] [address] Sep, [facility] [address] [id number] [address] [place] [address], [place] [address] Aug, [facility] [address] [id number] [address] [place] [address], [place] [address] Aug, [facility] [address] [id number] [address] [place] [address], [place] [address] Aug, [facility] [address] [id number] [address] [place] [address], [place] [address] Aug, [facility] [address] [id number] [address] [place] [address], [place] [address] Aug, [facility] [address] [id number] [address] [place] [address], [place] [address] Aug, [facility] [address] [id number] [address] [place] [address], [place] [address] Aug, [facility] [address] [id number] [address] [place] [address], [place] [address] Aug, [facility] [address] [id number] [address] [place] [address], [place] [address] Aug, [facility] [address] [id number] [address] [place] [address], [place] [address] Jul, [facility] [address] [id number] [address] [place] [address], [place] [address] Jul, [facility] [address] [id number] [address] [place] [address] Jul, [facility] [address] [id number] [address] [place] [address] Jul, [facility] [address] [id number] [address] [place] [address] Nov, [facility] [address] [facility] [id number] [address] [place] [address] Sep, [facility] [address] [facility] [id number] [address] [place] [address] Aug, [facility] [address] [facility] [id number] [address] [place] [address] Aug, [facility] [address] [facility] [id number] [address] [place] [address] Aug, [facility] [address] [facility] [id number] [address] [place] [address] Jul, IMMUNIZATIONS No Known Immunizations SOCIAL HISTORY Never Assessed REASON FOR VISIT PLAN OF CARE VITAL SIGNS Height 74 in 2014-12-03 Weight 234.25 lbs 2014-12-03 Temperature 98.1 degrees Fahrenheit 2014-12-03 Heart Rate 82 bpm 2014-12-03 Respiratory Rate 20 2014-12-03 Blood pressure systolic 138 mmHg 2014-12-03 Blood pressure diastolic 70 mmHg 2014-12-03 MEDICATIONS Unknown Medications RESULTS No Results PROCEDURES Procedure Date Ordered Result Body Site TTE W/DOPPLER, COMPLETE December 03, 2014 ECHO TRANSTHORACIC December 03, 2014 INSTRUCTIONS MEDICATIONS ADMINISTERED No Known Medications [...] 06/27/2016 Hospitalization History Overdosed on Clonazepam #35. [place] parvin 03/2014 Hospitalization History Overdosed on Xanax 07/2012 Hospitalization History Hypostension-medication side effect-[facility]ia [facility]3] 03/13/16
--- OUTSIDE RECORDS SUMMARY | 2019-09-11 12:33 | XMS REPORT ---
Author Author Miguel Freeman Doctor Organization [facility] Address Unknown Phone Unavailable Care Team Providers Care Guest Laundry Attendant Name Role Phone Migration, Doctor Unavailable Unavailable PROBLEMS Type Condition ICD9-CM Code XVE04-DT Code Onset Dates Condition S tatus SNOMED Code Problem Neuropathy G62.9 Active 162996130 Problem Essential hypertension I10 Active 98646083 Problem correction current use of insulin Z79.4 Active 301580181 Problem Abdominal pain R10.9 Active 64816 001 Problem Change in bowel habit R19.4 Active 15006334 Problem Coronary atherosclerosis due to lipid rich plaque I25.83 Active 99087780 Problem Type 2 diabetes mellitus with complication E11.8 Active 57694238 Problem Impotence N52.9 Active 087432297 Problem Family history of colon cancer Z80.0 Active 329876132 Problem Diabetic neuropathy, painful E11.40 A ctive 083270353 Problem Arm paresthesia, right R20.2 Active 09615850 Problem Gastroesophageal reflux disease without esophagitis K21.9 Active 338495368 Problem Drug abuse, opioid type F11.10 Active 3981067 Problem COPD exacerbation J44.1 Active 19 7546117 Problem Obstructive sleep apnea syndrome G47.33 Active 39194450 Problem Diverticulitis K57.92 Active 51075 6006 Problem Pain of right upper extremity M79.601 Active 476387212 Problem Respiratory bronchiolitis interstitial lung disease J84.115 Active 991174727 Problem Hypoxia R09.02 Active 926393758 Problem Interstitial lung disease J84.9 Acti ve 937242960 ALLERGIES Substance Reaction Event Type Date Status Clonazepam 1 Mg Tablet OVERDOSED ON MEDICATION Non Drug Allergy Dec, Active Tramadol Hcl Oral Tablet 50 Mg 50 Mg Tablet OVERDOSED ON Non Drug Allergy Dec, Active Hydrocodone-acetaminophen 7.5-325 Mg Tablet OVERDOSED ON MED ICATION Non Drug Allergy Dec, Active ENCOUNTERS Encounter Location Date Diagnosis [facility] [address] [facility] [id number] [place] [address] Aug, [facility] [address] [facility] [id number] [address] [place] [address] Aug, Diabetic neuropathy, painful E11.40 ; Interstitial lung disease J84.9 ; Chronic cough R05 ; Type 2 diabetes mellitus with complication E11.8 and correction current use of insulin Z79.4 [facility] [address] [facility] [id number] [address] [place] [address] Jul, [facility] [address] [facility] [id number] [address] [place] [address] Jul, [facility] [address] [facility] [id number] [address] [place] [address] Jul, Diabetic neuropathy, painful E11.40 [facility] [address] [facility] [id number] [address] [place] [address] Jul, Type 2 diabetes mellitus wit h complication E11.8 [facility] [address] [facility] [id number] [address] [place] [address] Jun, Diabetic neuropathy, painful E11.40 [facility] [address] [facility] [id number] [address] [place] [address] Jun, [facility] [address] [facility] [id number] [address] [place] [address] Jun, Type 2 diabetes mellitus wit h complication E11.8 ; Other viral agents as the cause of diseases classified elsewhere B97.89 ; Acute upper respiratory infection, unspecified J06.9 ; Acute recurrent maxillary sinusitis J01.01 ; Sore throat J02.9 and Headache R51 [facility] [address] [facility] [id number] [address] [place] [address] 04 Jun, 2017 Right lower quadrant abdomin al pain R10.31 and Type 2 diabetes mellitus with complication E11.8 [facility] [address] [facility] [id number] [address] [place] [address] 27 May, 2017 Diabetic neuropathy, painful E11.40 [facility] [address] [facility] [id number] [address] [place] [address] May, COPD exacerbation J44.1 and Type 2 diabetes mellitus with complication E11.8 [place] [address] [address] Apr, Diabetic neuropathy, painful E11.40 [place] [address] [address] Apr, Diabetic neuropathy, painful E11.40 [facility] [address] [address] Mar, Bronchitis J40 [place] [address] [address] January, Type 2 diabetes mellitus wit h complication E11.8 ; Diabetic neuropathy, painful E11.40 ; Impotence N52.9 ; Coronary atherosclerosis due to lipid rich plaque I25.83 ; correction current use of insulin Z79.4 ; Interstitial lung disease J84.9 ; Hypoxia R09.02 ; Essential hypertension I10 ; Gastroesophageal reflux disease without esophagitis K21.9 ; Left upper arm pain M79.622 and Cervical spinal stenosis M48.02 [facility] [address] [address] January, Viral gastroenteritis A08.4 [place] [address] [address] [place] [id number] [address] [place] [address] Dec, Diabetic neuropathy, painful E11.40 [facility] [address] [place] [id number] [place] [id number] Oct, [place] [address] [place] [id number] [address] [place] [address] Oct, Acute right-sided weakness M 62.89 and Slurring of speech R47.81 [place] [address] [address] [place] [id number] [address] [place] [address] Sep, Type 2 diabetes mellitus wit h complication E11.8 ; Diabetic neuropathy, painful E11.40 ; Impotence N52.9 ; Coronary atherosclerosis due to lipid rich plaque I25.83 ; 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.4 ; Interstitial lung disease J84.9 ; Hypoxia R09.02 ; Essential hypertension I10 and Gastroesophageal reflux disease without esophagitis K21.9 [facility] [address] [facility] [id number] [address] [place] [address] Sep, Bronchitis J40 [facility] [address] [facility] [id number] [address] [place] [address] Aug, Gastroenteritis and colitis, viral A08.4 [facility] [address] [facility] [id number] [address] [place] [address] Aug, [place] [address] [facility] [id number] [address] [place] [address] Jun, Type 2 diabetes mellitus wit h complication E11.8 ; Diabetic neuropathy, painful E11.40 ; Impotence N52.9 ; Coronary atherosclerosis due to lipid rich plaque I25.83 ; correction current use of insulin Z79.4 ; Interstitial lung disease J84.9 ; Hypoxia R09.02 and Essential hypertension I10 [place] [id number] [facility] [id number] [address] [place] [address] 30 May, 2016 Bronchitis J40 [facility] [address] [facility] [id number] [address] [place] [address] 29 May, 2016 [place] [address] [facility] [id number] [address] [place] [address] May, Pain of right upper extremit y M79.601 [facility] [address] [facility] [id number] [address] [place] [address] May, [place] [address] [facility] [id number] [address] [place] [address] 15 May, 2016 [place] [address] [facility] [id number] [address] [place] [address] 07 May, 2016 Right hand pain M79.641 [place] [address] [facility] [id number] [address] [place] [address] Apr, [facility] [address] [facility] [id number] [address] [place] [address] Apr, [facility] [address] [facility] [id number] [address] [place] [address] Mar, [facility] [address] [facility] [id number] [address] [place] [address] Mar, Essential hypertension I10 [place] [address] [facility] [id number] [address] [place] [address] Feb, [place] [address] [facility] [id number] [address] [place] [address] Feb, Interstitial lung disease J8 4.9 and Bronchitis J40 [place] [address] [place] [id number] [place] [address] Feb, [place] [address] [address] Feb, Type 2 diabetes mellitus wit h complication E11.8 ; Impotence N52.9 ; Coronary atherosclerosis due to lipid rich plaque I25.83 ; correction current use of insulin Z79.4 and Diabetic neuropathy, painful E11.40 [place] [address] [place] [id number] [address] [place] [address] January, [place] [address] [place] [id number] [address] [place] [address] January, Arm paresthesia, right R20.2 and Pain of right upper extremity M79.601 [place] [address] [facility] [id number] [address] [place] [address] Dec, Lumbar strain S39.012A [place] [address] [facility] [id number] [address] [place] [address] Nov, Diabetic neuropathy, painful E11.40 ; Respiratory bronchiolitis interstitial lung disease J84.115 ; Pain of right upper extremity M79.601 and Arm paresthesia, right R20.2 [place] [address] [address] Nov, Diabetic neuropathy, painful E11.[address] [address] Sep, Type 2 diabetes mellitus wit h complication E11.8 ; Impotence N52.9 ; Coronary atherosclerosis due to lipid rich plaque I25.83 ; correction current use of insulin Z79.4 ; Diabetic neuropathy, painful E11.40 ; Chest pain R07.9 and Restless leg G25.[address] [address] Sep, [address] [address] Jul, COPD (chronic obstructive pu lmonary disease) with acute bronchitis J44.[address] [address] Jun, Abdominal pain R10.9 ; Famil y history of colon cancer Z80.0 and Diverticulitis K57.[address] [address] Jun, Abdominal pain R10.9 and Div erticulitis K57.[address] [address] Apr, Diabetes with other specifie d manifestations, type II or unspecified type, not stated as uncontrolled 250.80 ; Coronary atherosclerosis of unspecified type of vessel, yocha dehe or graft 414.00 ; Unspecified essential hypertension 401.9 ; Impotence of organic origin 607.84 ; Sleep apnea 780.57 and Interstitial lung disease [address] [address] Dec, [address] [address] Dec, [address] [address] Nov, [facility] [address] [id number] [address] [place] [address], [place] [address] Nov, [facility] [address] [id number] [address] [place] [address], [place] [address] Nov, [facility] [address] [id number] [address] [place] [address], [place] [address] Nov, [facility] [address] [id number] [address] [place] [address], [place] [address] Nov, [facility] [address] [id number] [address] [place] [address], [place] [address] Nov, [facility] [address] [id number] [address] [place] [address], [place] [address] Nov, [facility] [address] [id number] [address] [place] [address], [place] [address] Nov, [facility] [address] [id number] [address] [place] [address], [place] [address] Nov, [facility] [address] [id number] [address] [place] [address], [place] [address] Nov, [facility] [address] [id number] [address] [place] [address], [place] [address] Oct, [facility] [address] [id number] [address] [place] [address], [place] [address] Oct, 2014 [facility] [address] [id number] [address] [place] [address], [place] [address] Oct, 2014 [facility] [address] [id number] [address] [place] [address], [place] [address] Oct, 2014 [facility] [address] [id number] [address] [place] [address], [place] [address] Oct, 2014 [facility] [address] [id number] [address] [place] [address], [place] [address] Oct, 2014 [facility] [address] [id number] [address] [place] [address], [place] [address] 04 Oct, 2014 [facility] [address] [id number] [address] [place] [address], [place] [address] Oct, 2014 [facility] [address] [id number] [address] [place] [address], [place] [address] Oct, 2014 [facility] [address] [id number] [address] [place] [address], [place] [address] Oct, 2014 [facility] [address] [id number] [address] [place] [address], [place] [address] Oct, 2014 [facility] [address] [id number] [address] [place] [address], [place] [address] Jul, [facility] [address] [id number] [address] [place] [address], [place] [address] Jul, [facility] [address] [id number] [address] [place] [address], [place] [address] Jun, [facility] [address] [id number] [address] [place] [address], [place] [address] 29 Jun, 2014 [facility] [address] [id number] [address] [place] [address], [place] [address] Jun, [facility] [address] [id number] [address] [place] [address], [place] [address] 17 Jun, 2014 [facility] [address] [id number] [address] [place] [address] 15 Jun, 2014 [facility] [address] [id number] [address] [place] [address], [place] [address] 15 Jun, 2014 [facility] [address] [id number] [address] [place] [address], [place] [address] 14 Jun, 2014 [facility] [address] [id number] [address] [place] [address] 14 Jun, 2014 [facility] [address] [id number] [address] [place] [address] Jun, [facility] [address] [id number] [address] [place] [address], [place] [address] 13 Jun, 2014 [facility] [address] [id number] [address] [place] [address], [place] [address] 08 Jun, 2014 [facility] [address] [id number] [address] [place] [address], [place] [address] 08 Jun, 2014 [facility] [address] [id number] [address] [place] [address], [place] [address] Jun, [facility] [address] [id number] [address] [place] [address], [place] [address] Jun, [facility] [address] [id number] [address] [place] [address], [place] [address] 30 May, 2014 [facility] [address] [id number] [address] [place] [address], [place] [address] 30 May, 2014 [facility] [address] [id number] [address] [place] [address], [place] [address] May, [facility] [address] [id number] [address] [place] [address], [place] [address] May, [facility] [address] [id number] [address] [place] [address], [place] [address] 05 May, 2014 [facility] [address] [id number] [address] [place] [address], [place] [address] May, [facility] [address] [id number] [address] [place] [address], [place] [address] Apr, [facility] [address] [id number] [address] [place] [address], [place] [address] Apr, [facility] [address] [id number] [address] [place] [address], [place] [address] Apr, [facility] [address] [id number] [address] [place] [address], [place] [address] Apr, [facility] [address] [id number] [facility] [place] [address] Apr, [facility] [address] [id number] [facility] [place] [address] Apr, [facility] [address] [id number] [facility] [place] [address] Apr, [facility] [address] [id number] [address] [place] [address], [place] [address] Apr, [facility] [address] [id number] [address] [place] [address], [place] [address] Apr, [facility] [address] [id number] [address] [place] [address], [place] [address] Apr, [facility] [address] [id number] [address] [place] [address], [place] [address] Apr, [facility] [address] [id number] [address] [place] [address], [place] [address] Apr, [facility] [address] [id number] [address] [place] [address], [place] [address] Mar, [facility] [address] [id number] [address] [place] [address], [place] [address] Mar, [facility] [address] [id number] [address] [place] [address], [place] [address] Mar, [facility] [address] [id number] [address] [place] [address], [place] [address] Mar, [facility] [address] [id number] [address] [place] [address], [place] [address] Mar, [facility] [address] [id number] [address] [place] [address], [place] [address] Mar, [facility] [address] [id number] [address] [place] [address], [place] [address] Mar, [facility] [address] [id number] [address] [place] [address], [place] [address] Mar, [facility] [address] [id number] [address] [place] [address], [place] [address] Mar, [facility] [address] [id number] [address] [place] [address], [place] [address] Mar, [facility] [address] [id number] [address] [place] [address], [place] [address] Mar, [facility] [address] [id number] [address] [place] [address], [place] [address] Feb, [facility] [address] [id number] [address] [place] [address], [place] [address] Feb, [facility] [address] [id number] [address] [place] [address], [place] [address] Feb, [facility] [address] [id number] [address] [place] [address], [place] [address] Feb, [facility] [address] [id number] [address] [place] [address], [place] [address] Feb, [facility] [address] [id number] [address] [place] [address], [place] [address] Feb, [facility] [address] [id number] [address] [place] [address], [place] [address] Feb, [facility] [address] [id number] [address] [place] [address], [place] [address] Feb, [facility] [address] [id number] [address] [place] [address], [place] [address] Feb, [facility] [address] [id number] [address] [place] [address], [place] [address] Feb, [facility] [address] [id number] [address] [place] [address], [place] [address] January, [facility] [address] [id number] [address] [place] [address], [place] [address] January, [facility] [address] [id number] [address] [place] [address], [place] [address] January, [facility] [address] [id number] [address] [place] [address], [place] [address] January, [facility] [address] [id number] [address] [place] [address], [place] [address] January, [facility] [address] [id number] [address] [place] [address], [place] [address] January, [facility] [address] [id number] [address] [place] [address], [place] [address] January, [facility] [address] [id number] [address] [place] [address], [place] [address] January, [facility] [address] [id number] [address] [place] [address], [place] [address] January, [facility] [address] [id number] [address] [place] [address], [place] [address] January, [facility] [address] [id number] [address] [place] [address], [place] [address] January, [facility] [address] [id number] [address] [place] [address], [place] [address] January, [facility] [address] [id number] [address] [place] [address], [place] [address] January, [facility] [address] [id number] [address] [place] [address], [place] [address] January, [facility] [address] [id number] [address] [place] [address], [place] [address] January, [facility] [address] [id number] [address] [place] [address], [place] [address] January, [facility] [address] [id number] [address] [place] [address], [place] [address] Dec, [facility] [address] [id number] [address] [place] [address], [place] [address] Dec, [facility] [address] [id number] [facility] [place] [address] Dec, [facility] [address] [id number] [address] [place] [address], [place] [address] Dec, [facility] [address] [id number] [address] [place] [address], [place] [address] Dec, [facility] [address] [id number] [address] [place] [address], [place] [address] Dec, [facility] [address] [id number] [address] [place] [address], [place] [address] Dec, [facility] [address] [id number] [address] [place] [address], [place] [address] Dec, [facility] [address] [id number] [address] [place] [address], [place] [address] Dec, [facility] [address] [id number] [address] [place] [address], [place] [address] Dec, [facility] [address] [id number] [address] [place] [address], [place] [address] Nov, [facility] [address] [id number] [address] [place] [address], [place] [address] Nov, [facility] [address] [id number] [address] [place] [address], [place] [address] Oct, [facility] [address] [id number] [address] [place] [address], [place] [address] Oct, [facility] [address] [id number] [address] [place] [address], [place] [address] Oct, [facility] [address] [id number] [address] [place] [address], [place] [address] Sep, [facility] [address] [id number] [address] [place] [address], [place] [address] Sep, [facility] [address] [id number] [address] [place] [address], [place] [address] Sep, [facility] [address] [id number] [address] [place] [address], [place] [address] Sep, [facility] [address] [id number] [address] [place] [address], [place] [address] Sep, [facility] [address] [id number] [address] [place] [address], [place] [address] Sep, [facility] [address] [id number] [address] [place] [address], [place] [address] Sep, [facility] [address] [id number] [address] [place] [address], [place] [address] Sep, [facility] [address] [id number] [address] [place] [address], [place] [address] Sep, [facility] [address] [id number] [address] [place] [address], [place] [address] Sep, [facility] [address] [id number] [address] [place] [address], [place] [address] Sep, [facility] [address] [id number] [address] [place] [address], [place] [address] Sep, [facility] [address] [id number] [address] [place] [address], [place] [address] Aug, [facility] [address] [id number] [address] [place] [address], [place] [address] Aug, [facility] [address] [id number] [address] [place] [address], [place] [address] Aug, [facility] [address] [id number] [address] [place] [address], [place] [address] Aug, [facility] [address] [id number] [address] [place] [address], [place] [address] Jul, [facility] [address] [id number] [address] [place] [address], [place] [address] Jul, [facility] [address] [id number] [address] [place] [address], [place] [address] 30 Jun, 2013 [facility] [address] [id number] [address] [place] [address], [place] [address] Jun, [facility] [address] [id number] [address] [place] [address], [place] [address] Jun, [facility] [address] [id number] [address] [place] [address], [place] [address] Jun, [facility] [address] [id number] [address] [place] [address], [place] [address] Jun, [facility] [address] [id number] [address] [place] [address], [place] [address] Jun, [facility] [address] [id number] [address] [place] [address], [place] [address] Jun, [facility] [address] [id number] [address] [place] [address], [place] [address] Jun, [facility] [address] [id number] [address] [place] [address], [place] [address] 24 May, 2013 [facility] [address] [id number] [address] [place] [address], [place] [address] 23 May, 2012 [facility] [address] [id number] [address] [place] [address], [place] [address] 18 May, 2012 [facility] [address] [id number] [address] [place] [address], [place] [address] 13 May, 2012 [facility] [address] [id number] [address] [place] [address], [place] [address] 11 May, 2012 [facility] [address] [id number] [address] [place] [address], [place] [address] 06 May, 2012 [facility] [address] [id number] [address] [place] [address], [place] [address] 03 May, 2012 [facility] [address] [id number] [address] [place] [address], [place] [address] Apr, [facility] [address] [id number] [address] [place] [address], [place] [address] Apr, [facility] [address] [id number] [address] [place] [address], [place] [address] Apr, [facility] [address] [id number] [address] [place] [address], [place] [address] Apr, [facility] [address] [id number] [address] [place] [address], [place] [address] Apr, [facility] [address] [id number] [address] [place] [address], [place] [address] Apr, [facility] [address] [id number] [address] [place] [address], [place] [address] Apr, [facility] [address] [id number] [address] [place] [address], [place] [address] Mar, [facility] [address] [id number] [address] [place] [address], [place] [address] Mar, [facility] [address] [id number] [address] [place] [address], [place] [address] Mar, [facility] [address] [id number] [address] [place] [address], [place] [address] Mar, [facility] [address] [id number] [address] [place] [address], [place] [address] Mar, [facility] [address] [id number] [address] [place] [address], [place] [address] Mar, [facility] [address] [id number] [address] [place] [address], [place] [address] Mar, [facility] [address] [id number] [address] [place] [address], [place] [address] Mar, [facility] [address] [id number] [address] [place] [address], [place] [address] Feb, [facility] [address] [id number] [address] [place] [address], [place] [address] Feb, [facility] [address] [id number] [address] [place] [address], [place] [address] Feb, [facility] [address] [id number] [address] [place] [address], [place] [address] January, [facility] [address] [id number] [address] [place] [address], [place] [address] January, [facility] [address] [id number] [address] [place] [address], [place] [address] January, [facility] [address] [id number] [address] [place] [address], [place] [address] January, [facility] [address] [id number] [address] [place] [address], [place] [address] January, [facility] [address] [id number] [address] [place] [address], [place] [address] January, [facility] [address] [id number] [address] [place] [address], [place] [address] January, [facility] [address] [id number] [address] [place] [address], [place] [address] January, [facility] [address] [id number] [address] [place] [address], [place] [address] Dec, [facility] [address] [id number] [address] [place] [address], [place] [address] Dec, [facility] [address] [id number] [address] [place] [address], [place] [address] Dec, [facility] [address] [id number] [address] [place] [address], [place] [address] Dec, [facility] [address] [id number] [address] [place] [address], [place] [address] Dec, [facility] [address] [id number] [address] [place] [address], [place] [address] Nov, [facility] [address] [id number] [address] [place] [address], [place] [address] 21 Nov, 2012 [facility] [address] [id number] [address] [place] [address], [place] [address] 19 Nov, 2012 [facility] [address] [id number] [address] [place] [address], [place] [address] 18 Nov, 2012 [facility] [address] [id number] [address] [place] [address], [place] [address] 18 Nov, 2012 [facility] [address] [id number] [address] [place] [address], [place] [address] 14 Nov, 2012 [facility] [address] [id number] [address] [place] [address], [place] [address] 11 Nov, 2012 [facility] [address] [id number] [address] [place] [address], [place] [address] 11 Nov, 2012 [facility] [address] [id number] [address] [place] [address], [place] [address] 21 Oct, 2012 [facility] [address] [id number] [address] [place] [address], [place] [address] 21 Oct, 2012 [facility] [address] [id number] [address] [place] [address], [place] [address] 12 Oct, 2012 [facility] [address] [id number] [address] [place] [address], [place] [address] 08 Oct, 2012 [facility] [address] [id number] [address] [place] [address], [place] [address] 07 Oct, 2012 [facility] [address] [id number] [address] [place] [address], [place] [address] 07 Oct, 2012 [facility] [address] [id number] [address] [place] [address], [place] [address] 05 Oct, 2012 [facility] [address] [id number] [address] [place] [address], [place] [address] 04 Oct, 2012 [facility] [address] [id number] [address] [place] [address], [place] [address] 04 Oct, 2012 [facility] [address] [id number] [address] [place] [address], [place] [address] Sep, [facility] [address] [id number] [address] [place] [address], [place] [address] Sep, [facility] [address] [id number] [address] [place] [address], [place] [address] Sep, [facility] [address] [id number] [address] [place] [address], [place] [address] Sep, [facility] [address] [id number] [address] [place] [address], [place] [address] Sep, [facility] [address] [id number] [address] [place] [address], [place] [address] Sep, [facility] [address] [id number] [address] [place] [address], [place] [address] Aug, [facility] [address] [id number] [address] [place] [address], [place] [address] Aug, [facility] [address] [id number] [address] [place] [address], [place] [address] Aug, [facility] [address] [id number] [address] [place] [address], [place] [address] Aug, [facility] [address] [id number] [address] [place] [address], [place] [address] Aug, [facility] [address] [id number] [address] [place] [address], [place] [address] 18 Aug, 2012 [facility] [address] [id number] [address] [place] [address], [place] [address] 13 Aug, 2012 [facility] [address] [id number] [address] [place] [address], [place] [address] Aug, [facility] [address] [id number] [address] [place] [address], [place] [address] Aug, [facility] [address] [id number] [address] [place] [address] Jul, [facility] [address] [id number] [address] [place] [address] Jul, [facility] [address] [id number] [address] [place] [address] Jul, [facility] [address] [id number] [address] [place] [address] Jul, [facility] [address] [id number] [address] [place] [address] Nov, [facility] [address] [id number] [address] [place] [address] Sep, [facility] [address] [id number] [address] [place] [address] Aug, [facility] [address] [id number] [address] [place] [address] Aug, [facility] [address] [id number] [address] [place] [address] Aug, [facility] [address] [id number] [address] [place] [address] Jul, IMMUNIZATIONS No Known Immunizations SOCIAL HISTORY Never Assessed REASON FOR VISIT EMR[place] [place] VITAL SIGNS MEDICATIONS Medication Instructions Dosage Frequency Start Date End Date Duration S tatus Bactroban 2 % 1 gretchen by Topical route 2 times per day f or 14 day(s) January, Active Fentanyl 50 mcg/hr 1 PATCH by Topical route every 72 h ours for 1 dose(s) Aug, Active Lisinopril 20 mg take 1 tablet by Oral route 1 time pe r day voucher x 1 Oct, Active Questran Light 4 gram 4 g by Oral route 2 times per da y for 10 day Jun, Active Augmentin 875-125 mg 1 tablet by Oral route 2 times pe r day for 10 day(s) January, Active Aspirin 325 mg 1 tablet by Oral route 1 time per day Oct, Active Levemir 100 unit/mL inject 60 Units by S ubcutaneous route 1 time per day at bedtime Oct, Active Omnicef 300 mg 2 capsule by Oral route 1 time per day for 7 day(s) Nov, Active Flexeril 10 mg 1 tablet by Oral route 3 times per day PRN muscle spasm Nov, Active Metoprolol Tartrate 50 mg take 1 tablet (50 mg) by oral route 2 times per day with meals Oct, Active Cialis 5 mg 1 tablet by Oral route 1 time per day PRN as needed Jun, Active PredniSONE 20 mg 2 tablet by Oral route 1 time per day for 5 day(s) Nov, Active NovoLog 100 unit/mL inject 10 Units by S ubcutaneous route 3 times per day before meals Oct, Active Bactrim DS 800-160 mg 1 tablet by Oral route 2 times p er day for 10 day(s) Dec, Active Flagyl 500 mg 1 tablet by Oral route 2 times per day f or 7 days Jun, Active RESULTS No Results PROCEDURES No Known [...] Cuff Repair Alixfuda 06/2016 Surgical History Colonoscopy Kido (1 Polyp) repeat 5 year s 2019 2014 Surgical History right rotator cuff surgery 06/27/2016 Hospitalization History Overdosed on Clonazepam #35. Lori melendrez 03/2014 Hospitalization History Overdosed on Xanax 07/2012 Hospitalization History Hypostension-medication side effect-[facility] 03/13/16
--- OUTSIDE RECORDS SUMMARY | 2019-09-11 12:33 | XMS REPORT ---
Author Author Miguel CHAPPELL Organization [facility] Address [address] [place] [address] Care Team Providers Care Process Improvement Engineer Name Role Phone NATHALIA CHAPPELLWNYA Unavailable PROBLEMS Type Condition ICD9-CM Code QIL83-SX Code Onset Dates Condition S tatus SNOMED Code Problem Neuropathy G62.9 Active 462596653 Problem Essential hypertension I10 Active 76233728 Problem terminal carman current use of insulin Z79.4 Active 516812752 Problem Abdominal pain R10.9 Active 45269 001 Problem Change in bowel habit R19.4 Active 50862871 Problem Coronary atherosclerosis due to lipid rich plaque I25.83 Active 80173046 Problem Type 2 diabetes mellitus with complication E11.8 Active 09457389 Problem Impotence N52.9 Active 428807097 Problem Family history of colon cancer Z80.0 Active 829248781 Problem Diabetic neuropathy, painful E11.40 A ctive 786096376 Problem Arm paresthesia, right R20.2 Active 29809337 Problem Gastroesophageal reflux disease without esophagitis K21.9 Active 603654213 Problem Drug abuse, opioid type F11.10 Active 4928661 Problem COPD exacerbation J44.1 Active 19 5504564 Problem Obstructive sleep apnea syndrome G47.33 Active 48554414 Problem Diverticulitis K57.92 Active 21350 6006 Problem Pain of right upper extremity M79.601 Active 834338934 Problem Respiratory bronchiolitis interstitial lung disease J84.115 Active 555946107 Problem Hypoxia R09.02 Active 288857922 Problem Interstitial lung disease J84.9 Acti ve [id number] ALLERGIES No Information ENCOUNTERS Encounter Location Date Diagnosis [facility] [address] [facility] [id number] [address] [place] [address] Aug, [facility] [address] [facility] [id number] [address] [place] [address] Aug, Diabetic neuropathy, painful E11.40 ; Interstitial lung disease J84.9 ; Chronic cough R05 ; Type 2 diabetes mellitus with complication E11.8 and terminal carman current use of insulin Z79.4 [facility] [address] [facility] [id number] [address] [place] [address] Jul, [facility] [address] [facility] [id number] [address] [place] [address] Jul, [facility] [address] [place] [id number] [place] [address] Jul, Diabetic neuropathy, painful E11.40 [place] [address] [address] Jul, Type 2 diabetes mellitus wit h complication E11.8 [facility] [address] [place] [id number] [place] [address] Jun, Diabetic neuropathy, painful E11.40 [facility] [address] [address] Jun, [facility] [address] [address] Jun, Type 2 diabetes mellitus wit h complication E11.8 ; Other viral agents as the cause of diseases classified elsewhere B97.89 ; Acute upper respiratory infection, unspecified J06.9 ; Acute recurrent maxillary sinusitis J01.01 ; Sore throat J02.9 and Headache R51 [facility] [id number] [place] [address] Jun, Right lower quadrant abdomin al pain R10.31 and Type 2 diabetes mellitus with complication E11.8 [place] [address] [place] [id number] [place] [address] May, Diabetic neuropathy, painful E11.40 [facility] [address] [place] [id number] [address] [place] [address] 06 May, 2017 COPD exacerbation J44.1 and Type 2 diabetes mellitus with complication E11.8 [facility] [address] [place] [id number] [address] [place] [address] Apr, Diabetic neuropathy, painful E11.40 [place] [address] [address] Apr, Diabetic neuropathy, painful E11.40 [facility] [place] [address] [address] Mar, Bronchitis J40 [place] [address] [address] January, Type 2 diabetes mellitus wit h complication E11.8 ; Diabetic neuropathy, painful E11.40 ; Impotence N52.9 ; Coronary atherosclerosis due to lipid rich plaque I25.83 ; assisted current use of insulin Z79.4 ; Interstitial lung disease J84.9 ; Hypoxia R09.02 ; Essential hypertension I10 ; Gastroesophageal reflux disease without esophagitis K21.9 ; Left upper arm pain M79.622 and Cervical spinal stenosis M48.02 [facility] [place] [address] [address] January, Viral gastroenteritis A08.4 [place] [address] [address] Dec, Diabetic neuropathy, painful E11.40 [place] [address] [place] [id number] [place] [id number] Oct, [place] [address] [address] Oct, Acute right-sided weakness M 62.89 and Slurring of speech R47.81 [place] [address] [address] Sep, Type 2 diabetes mellitus wit h complication E11.8 ; Diabetic neuropathy, painful E11.40 ; Impotence N52.9 ; Coronary atherosclerosis due to lipid rich plaque I25.83 ; assisted current use of insulin Z79.4 ; Interstitial lung disease J84.9 ; Hypoxia R09.02 ; Essential hypertension I10 and Gastroesophageal reflux disease without esophagitis K21.9 [facility] [address] [facility] [id number] [address] [place] [address] Sep, Bronchitis J40 [facility] [address] [facility] [id number] [address] [place] [address] Aug, Gastroenteritis and colitis, viral A08.4 [facility] [address] [facility] [id number] [address] [place] [address] Aug, [facility] [address] [facility] [id number] [address] [place] [address] Jun, Type 2 diabetes mellitus wit h complication E11.8 ; Diabetic neuropathy, painful E11.40 ; Impotence N52.9 ; Coronary atherosclerosis due to lipid rich plaque I25.83 ; terminal carman current use of insulin Z79.4 ; Interstitial lung disease J84.9 ; Hypoxia R09.02 and Essential hypertension I10 [facility] [address] [facility] [id number] [address] [place] [address] 30 May, 2016 Bronchitis J40 [facility] [address] [facility] [id number] [address] [place] [address] 29 May, 2016 [facility] [address] [facility] [id number] [address] [place] [address] May, Pain of right upper extremit y M79.601 [facility] [address] [facility] [id number] [address] [place] [address] May, [facility] [address] [facility] [id number] [address] [place] [address] 15 May, 2016 [facility] [address] [facility] [id number] [address] [place] [address] 07 May, 2016 Right hand pain M79.641 [facility] [address] [facility] [id number] [address] [place] [address] Apr, [facility] [address] [facility] [id number] [address] [place] [address] Apr, [facility] [address] [id number] [address] [place] [address] Mar, [facility] [address] [facility] [id number] [address] [place] [address] Mar, Essential hypertension I10 [facility] [address] [facility] [id number] [address] [place] [phone] Feb, [facility] [address] [facility] [id number] [address] [place] [address] Feb, Interstitial lung disease J8 4.9 and Bronchitis J40 [place] [address] [facility] [id number] [address] [place] [address] Feb, [place] [address] [facility] [id number] [address] [place] [address] Feb, Type 2 diabetes mellitus wit h complication E11.8 ; Impotence N52.9 ; Coronary atherosclerosis due to lipid rich plaque I25.83 ; terminal carman current use of insulin Z79.4 and Diabetic neuropathy, painful E11.40 [place] [address] [facility] [id number] [address] [place] [address] January, [place] [address] [facility] [id number] [address] [place] [address] January, Arm paresthesia, right R20.2 and Pain of right upper extremity M79.601 [place] [address] [facility] [id number] [address] [place] [address] Dec, Lumbar strain S39.012A [place] [address] [facility] [id number] [address] [place] [address] Nov, Diabetic neuropathy, painful E11.40 ; Respiratory bronchiolitis interstitial lung disease J84.115 ; Pain of right upper extremity M79.601 and Arm paresthesia, right R20.2 [place] [address] [facility] [id number] [address] [place] [address] Nov, Diabetic neuropathy, painful E11.[address] [facility] [address] [address] Sep, Type 2 diabetes mellitus wit h complication E11.8 ; Impotence N52.9 ; Coronary atherosclerosis due to lipid rich plaque I25.83 ; assisted current use of insulin Z79.4 ; Diabetic neuropathy, painful E11.40 ; Chest pain R07.9 and Restless leg G25.[address] [address] Sep, [address] [address] Jul, COPD (chronic obstructive pu lmonary disease) with acute bronchitis J44.[address] [address] Jun, Abdominal pain R10.9 ; Famil y history of colon cancer Z80.0 and Diverticulitis K57.[address] [address] Jun, Abdominal pain R10.9 and Div erticulitis K57.[address] [address] Apr, Diabetes with other specifie d manifestations, type II or unspecified type, not stated as uncontrolled 250.80 ; Coronary atherosclerosis of unspecified type of vessel, [place] or graft 414.00 ; Unspecified essential hypertension 401.9 ; Impotence of organic origin 607.84 ; Sleep apnea 780.57 and Interstitial lung disease [address] [address] Dec, [address] [address] Dec, [address] [address] Nov, [address] [address] Nov, [facility] [address] [id number] [address] [place] [address], [place] [address] Nov, [facility] [address] [id number] [address] [place] [address], [place] [address] Nov, [facility] [address] [id number] [address] [place] [address], [place] [address] Nov, [facility] [address] [id number] [address] [place] [address], [place] [address] Nov, [facility] [address] [id number] [address] [place] [address], [place] [address] Nov, [facility] [address] [id number] [address] [place] [address], [place] [address] Nov, [facility] [address] [id number] [address] [place] [address], [place] [address] Nov, [facility] [address] [id number] [address] [place] [address], [place] [address] Nov, [facility] [address] [id number] [address] [place] [address], [place] [address] Oct, [facility] [address] [id number] [address] [place] [address], [place] [address] Oct, 2014 [facility] [address] [id number] [address] [place] [address], [place] [address] Oct, 2014 [facility] [address] [id number] [address] [place] [phone] Oct, 2014 [facility] [address] [id number] [address] [place] [address], [place] [address] Oct, 2014 [facility] [address] [id number] [address] [place] [address], [place] [address] Oct, 2014 [facility] [address] [id number] [address] [place] [address], [place] [address] Oct, 2014 [facility] [address] [id number] [address] [place] [address], [place] [address] 04 Oct, 2014 [facility] [address] [id number] [address] [place] [address], [place] [address] Oct, 2014 [facility] [address] [id number] [address] [place] [address], [place] [address] Oct, 2014 [facility] [address] [id number] [address] [place] [address], [place] [address] Oct, 2014 [facility] [address] [id number] [address] [place] [address], [place] [address] Jul, [facility] [address] [id number] [address] [place] [address], [place] [address] Jul, [facility] [address] [id number] [address] [place] [address], [place] [address] Jun, [facility] [address] [id number] [address] [place] [address], [place] [address] 29 Jun, 2014 [facility] [address] [id number] [address] [place] [address], [place] [address] Jun, [facility] [address] [id number] [address] [place] [address], [place] [address] 17 Jun, 2014 [facility] [address] [id number] [address] [place] [address], [place] [address] 15 Jun, 2014 [facility] [address] [id number] [address] [place] [address], [place] [address] 15 Jun, 2014 [facility] [address] [id number] [address] [place] [address], [place] [address] 14 Jun, 2014 [facility] [address] [id number] [address] [place] [address], [place] [address] 14 Jun, 2014 [facility] [address] [id number] [address] [place] [address], [place] [address] 13 Jun, 2014 [facility] [address] [id number] [address] [place] [address], [place] [address] Jun, [facility] [address] [id number] [address] [place] [address], [place] [address] 08 Jun, 2014 [facility] [address] [id number] [address] [place] [address], [place] [address] 08 Jun, 2014 [facility] [address] [id number] [address] [place] [address], [place] [address] Jun, [facility] [address] [id number] [address] [place] [address], [place] [address] Jun, [facility] [address] [id number] [address] [place] [address], [place] [address] 30 May, 2014 [facility] [address] [id number] [address] [place] [address], [place] [address] 30 May, 2014 [facility] [address] [id number] [address] [place] [address], [place] [address] May, [facility] [address] [id number] [address] [place] [address], [place] [address] May, [facility] [address] [id number] [address] [place] [address], [place] [address] 05 May, 2014 [facility] [address] [id number] [address] [place] [address], [place] [address] 05 May, 2014 [facility] [address] [id number] [address] [place] [address], [place] [address] Apr, [facility] [address] [id number] [address] [place] [address], [place] [address] Apr, [facility] [address] [id number] [address] [place] [address], [place] [address] Apr, [facility] [address] [id number] [address] [place] [address], [place] [address] Apr, [facility] [address] [id number] [address] [place] [address], [place] [address] Apr, [facility] [address] [id number] [address] [place] [address], [place] [address] Apr, [facility] [address] [id number] [facility] [place] [address] Apr, [facility] [address] [id number] [facility] [place] [address] Apr, [facility] [address] [id number] [facility] [place] [address] Apr, [facility] [address] [id number] [address] [place] [address], [place] [address] Apr, [facility] [address] [id number] [address] [place] [address], [place] [address] Apr, [facility] [address] [id number] [address] [place] [address], [place] [address] Apr, [facility] [address] [id number] [address] [place] [address], [place] [address] Mar, [facility] [address] [id number] [address] [place] [address], [place] [address] Mar, [facility] [address] [id number] [address] [place] [address], [place] [address] Mar, [facility] [address] [id number] [address] [place] [address], [place] [address] Mar, [facility] [address] [id number] [address] [place] [address], [place] [address] Mar, [facility] [address] [id number] [address] [place] [address], [place] [address] Mar, [facility] [address] [id number] [address] [place] [address], [place] [address] Mar, [facility] [address] [id number] [address] [place] [address], [place] [address] Mar, [facility] [address] [id number] [address] [place] [address], [place] [address] Mar, [facility] [address] [id number] [facility] [place] [address] Mar, [facility] [address] [id number] [facility] [place] [address] Mar, [facility] [address] [id number] [facility] [place] [address] Feb, [facility] [address] [id number] [facility] [place] [address] Feb, [facility] [address] [id number] [address] [place] [address], [place] [address] Feb, [facility] [address] [id number] [address] [place] [address], [place] [address] Feb, [facility] [address] [id number] [address] [place] [address], [place] [address] Feb, [facility] [address] [id number] [address] [place] [address], [place] [address] Feb, [facility] [address] [id number] [address] [place] [address], [place] [address] Feb, [facility] [address] [id number] [address] [place] [address], [place] [address] Feb, [facility] [address] [id number] [address] [place] [address], [place] [address] Feb, [facility] [address] [id number] [address] [place] [address], [place] [address] Feb, [facility] [address] [id number] [address] [place] [address], [place] [address] January, [facility] [address] [id number] [address] [place] [address], [place] [address] January, [facility] [address] [id number] [address] [place] [address], [place] [address] January, [facility] [address] [id number] [address] [place] [address], [place] [address] January, [facility] [address] [id number] [facility] [place] [address] January, [facility] [address] [id number] [address] [place] [address], [place] [address] January, [facility] [address] [id number] [address] [place] [address], [place] [address] January, [facility] [address] [id number] [address] [place] [address], [place] [address] January, [facility] [address] [id number] [address] [place] [address], [place] [address] January, [facility] [address] [id number] [address] [place] [address], [place] [address] January, [facility] [address] [id number] [address] [place] [address], [place] [address] January, [facility] [address] [id number] [address] [place] [address], [place] [address] January, [facility] [address] [id number] [address] [place] [address], [place] [address] January, [facility] [address] [id number] [address] [place] [address], [place] [address] January, [facility] [address] [id number] [address] [place] [address], [place] [address] January, [facility] [address] [id number] [address] [place] [address], [place] [address] January, [facility] [address] [id number] [address] [place] [address], [place] [address] Dec, [facility] [address] [id number] [address] [place] [address], [place] [address] Dec, [facility] [address] [id number] [address] [place] [address], [place] [address] Dec, [facility] [address] [id number] [address] [place] [address], [place] [address] 17 Dec, 2013 [facility] [address] [id number] [address] [place] [address], [place] [address] Dec, [facility] [address] [id number] [address] [place] [address], [place] [address] Dec, [facility] [address] [id number] [address] [place] [address], [place] [address] Dec, [facility] [address] [id number] [address] [place] [address], [place] [address] Dec, [facility] [address] [id number] [address] [place] [address], [place] [address] Dec, [facility] [address] [id number] [address] [place] [address], [place] [address] Dec, [facility] [address] [id number] [address] [place] [address], [place] [address] Nov, [facility] [address] [id number] [address] [place] [address], [place] [address] Nov, [facility] [address] [id number] [address] [place] [address], [place] [address] Oct, [facility] [address] [id number] [address] [place] [address], [place] [address] Oct, [facility] [address] [id number] [address] [place] [address], [place] [address] Oct, [facility] [address] [id number] [address] [place] [address], [place] [address] Sep, [facility] [address] [id number] [address] [place] [address], [place] [address] Sep, [facility] [address] [id number] [address] [place] [address], [place] [address] Sep, [facility] [address] [id number] [address] [place] [address], [place] [address] Sep, [facility] [address] [id number] [address] [place] [address], [place] [address] Sep, [facility] [address] [id number] [address] [place] [address], [place] [address] Sep, [facility] [address] [id number] [address] [place] [address], [place] [address] Sep, [facility] [address] [id number] [address] [place] [address], [place] [address] Sep, [facility] [address] [id number] [address] [place] [address], [place] [address] Sep, [facility] [address] [id number] [address] [place] [address], [place] [address] Sep, [facility] [address] [id number] [address] [place] [address], [place] [address] Sep, [facility] [address] [id number] [address] [place] [address], [place] [address] Sep, [facility] [address] [id number] [address] [place] [address], [place] [address] Aug, [facility] [address] [id number] [address] [place] [address], [place] [address] Aug, [facility] [address] [id number] [address] [place] [address], [place] [address] Aug, [facility] [address] [id number] [address] [place] [address], [place] [address] Aug, [facility] [address] [id number] [address] [place] [address], [place] [address] Jul, [facility] [address] [id number] [address] [place] [address], [place] [address] Jul, [facility] [address] [id number] [address] [place] [address], [place] [address] Jun, [facility] [address] [id number] [address] [place] [address] [place] [address] 30 Jun, 2013 [facility] [address] [id number] [address] [place] [address], [place] [address] Jun, [facility] [address] [id number] [address] [place] [address], [place] [address] Jun, [facility] [address] [id number] [address] [place] [address], [place] [address] Jun, [facility] [address] [id number] [address] [place] [address], [place] [address] Jun, [facility] [address] [id number] [address] [place] [address], [place] [address] Jun, [facility] [address] [id number] [address] [place] [address], [place] [address] Jun, [facility] [address] [id number] [address] [place] [address], [place] [address] 24 May, 2012 [facility] [address] [id number] [address] [place] [address], [place] [address] 23 May, 2012 [facility] [address] [id number] [address] [place] [address], [place] [address] 18 May, 2012 [facility] [address] [id number] [address] [place] [address], [place] [address] 13 May, 2012 [facility] [address] [id number] [address] [place] [address], [place] [address] 11 May, 2012 [facility] [address] [id number] [address] [place] [address], [place] [address] 06 May, 2012 [facility] [address] [id number] [address] [place] [address], [place] [address] 03 May, 2012 [facility] [address] [id number] [address] [place] [address], [place] [address] 30 Apr, 2013 [facility] [address] [id number] [address] [place] [address], [place] [address] 22 Apr, 2013 [facility] [address] [id number] [address] [place] [address], [place] [address] Apr, [facility] [address] [id number] [address] [place] [address], [place] [address] Apr, [facility] [address] [id number] [address] [place] [address], [place] [address] Apr, [facility] [address] [id number] [address] [place] [address], [place] [address] Apr, [facility] [address] [id number] [address] [place] [address], [place] [address] Apr, [facility] [address] [id number] [address] [place] [address], [place] [address] Mar, [facility] [address] [id number] [address] [place] [address], [place] [address] Mar, [facility] [address] [id number] [address] [place] [address], [place] [address] Mar, [facility] [address] [id number] [address] [place] [address], [place] [address] Mar, [facility] [address] [id number] [address] [place] [address], [place] [address] Mar, [facility] [address] [id number] [address] [place] [address], [place] [address] Mar, [facility] [address] [id number] [address] [place] [address], [place] [address] Mar, [facility] [address] [id number] [address] [place] [address], [place] [address] Mar, [facility] [address] [id number] [address] [place] [address], [place] [address] Feb, [facility] [address] [id number] [address] [place] [address], [place] [address] Feb, [facility] [address] [id number] [address] [place] [address], [place] [address] Feb, [facility] [address] [id number] [address] [place] [address], [place] [address] January, [facility] [address] [id number] [address] [place] [address], [place] [address] January, [facility] [address] [id number] [address] [place] [address], [place] [address] January, [facility] [address] [id number] [address] [place] [address], [place] [address] January, [facility] [address] [id number] [address] [place] [address], [place] [address] January, [facility] [address] [id number] [address] [place] [address], [place] [address] January, [facility] [address] [id number] [address] [place] [address], [place] [address] January, [facility] [address] [id number] [address] [place] [address], [place] [address] January, [facility] [address] [id number] [address] [place] [address], [place] [address] Dec, [facility] [address] [id number] [address] [place] [address], [place] [address] Dec, [facility] [address] [id number] [address] [place] [address], [place] [address] Dec, [facility] [address] [id number] [address] [place] [address], [place] [address] Dec, [facility] [address] [id number] [address] [place] [address], [place] [address] Dec, [facility] [address] [id number] [address] [place] [address], [place] [address] Nov, [facility] [address] [id number] [address] [place] [address], [place] [address] Nov, [facility] [address] [id number] [address] [place] [address], [place] [address] 19 Nov, 2012 [facility] [address] [id number] [address] [place] [address], [place] [address] 18 Nov, 2012 [facility] [address] [id number] [address] [place] [address], [place] [address] 18 Nov, 2012 [facility] [address] [id number] [address] [place] [address], [place] [address] 14 Nov, 2012 [facility] [address] [id number] [address] [place] [address], [place] [address] 11 Nov, 2012 [facility] [address] [id number] [address] [place] [address], [place] [address] 11 Nov, 2012 [facility] [address] [id number] [address] [place] [address], [place] [address] 21 Oct, 2012 [facility] [address] [id number] [address] [place] [address], [place] [address] 21 Oct, 2012 [facility] [address] [id number] [address] [place] [address], [place] [address] 12 Oct, 2012 [facility] [address] [id number] [address] [place] [address], [place] [address] 08 Oct, 2012 [facility] [address] [id number] [address] [place] [address], [place] [address] 07 Oct, 2012 [facility] [address] [id number] [address] [place] [address], [place] [address] 07 Oct, 2012 [facility] [address] [id number] [address] [place] [address], [place] [address] 05 Oct, 2012 [facility] [address] [id number] [address] [place] [address], [place] [address] 04 Oct, 2012 [facility] [address] [id number] [address] [place] [address], [place] [address] 04 Oct, 2012 [facility] [address] [id number] [address] [place] [address], [place] [address] Sep, [facility] [address] [id number] [address] [place] [address], [place] [address] Sep, [facility] [address] [id number] [address] [place] [address], [place] [address] Sep, [facility] [address] [id number] [address] [place] [address], [place] [address] Sep, [facility] [address] [id number] [address] [place] [address], [place] [address] Sep, [facility] [address] [id number] [address] [place] [address], [place] [address] Sep, [facility] [address] [id number] [address] [place] [address], [place] [address] Aug, [facility] [address] [id number] [address] [place] [address], [place] [address] Aug, [facility] [address] [id number] [address] [place] [address], [place] [address] Aug, [facility] [address] [id number] [address] [place] [address], [place] [address] Aug, [facility] [address] [id number] [address] [place] [address], [place] [address] Aug, [facility] [address] [id number] [address] [place] [address], [place] [address] 18 Aug, 2012 [facility] [address] [id number] [address] [place] [address], [place] [address] 13 Aug, 2012 [facility] [address] [id number] [address] [place] [address], [place] [address] Aug, [facility] [address] [id number] [address] [place] [address], [place] [address] Aug, [facility] [address] [id number] [address] [place] [address], [place] [address] Jul, [facility] [address] [id number] [address] [place] [address] Jul, [facility] [address] [id number] [address] [place] [address] Jul, [facility] [address] [id number] [address] [place] [address] Jul, [facility] [address] [facility] [id number] [address] [place] [address] Nov, [facility] [address] [facility] [id number] [address] [place] [address] Sep, [facility] [address] [facility] [id number] [address] [place] [address] Aug, [facility] [address] [facility] [id number] [address] [place] [address] Aug, [facility] [address] [facility] [id number] [address] [place] [phone] Aug, [facility] [address] [facility] [id number] [address] [place] [address] Jul, IMMUNIZATIONS No Known Immunizations SOCIAL HISTORY [...]
--- OUTSIDE RECORDS SUMMARY | 2019-09-11 12:33 | XMS REPORT ---
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10 Active 5082885 Problem COPD exacerbation J44.1 Active 19 8837919 Problem Obstructive sleep apnea syndrome G47.33 Active 01033009 Problem Diverticulitis K57.92 Active 22991 6006 Problem Pain of right upper extremity M79.601 Active 703142320 Problem Respiratory bronchiolitis interstitial lung disease J84.115 Active 275218344 Problem Hypoxia R09.02 Active 620320300 Problem Interstitial lung disease J84.9 Acti ve [id number] ALLERGIES No Information ENCOUNTERS Encounter Location Date Diagnosis [facility] [place] [address] [facility] [id number] [address] [place] [phone] Aug, [facility] [place] [address] [facility] [id number] [address] [place] [phone] Aug, Diabetic neuropathy, painful E11.40 ; Interstitial lung disease J84.9 ; Chronic cough R05 ; Type 2 diabetes mellitus with complication E11.8 and 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 [facility] [place] [address] [facility] [id number] [address] [place] [phone] Jul, [facility] [place] [address] [facility] [id number] [address] [place] [phone] Jul, [facility] [place] [address] [place] [id number] [place] [phone] Jul, Diabetic neuropathy, painful E11.40 [place] [address] [address] Jul, Type 2 diabetes mellitus wit h complication E11.8 [facility] [place] [address] [place] [id number] [place] [phone] Jun, Diabetic neuropathy, painful E11.40 [facility] [place] [address] [address] Jun, [facility] [address] [address] Jun, Type 2 diabetes mellitus wit h complication E11.8 ; Other viral agents as the cause of diseases classified elsewhere B97.89 ; Acute upper respiratory infection, unspecified J06.9 ; Acute recurrent maxillary sinusitis J01.01 ; Sore throat J02.9 and Headache R51 [facility] [place] [id number] [place] [phone] Jun, Right lower quadrant abdomin al pain R10.31 and Type 2 diabetes mellitus with complication E11.8 [place] [address] [place] [id number] [place] [address] May, Diabetic neuropathy, painful E11.40 [facility] [place] [address] [place] [id number] [address] [place] [phone] 06 May, 2017 COPD exacerbation J44.1 and Type 2 diabetes mellitus with complication E11.8 [facility] [place] [address] [place] [id number] [address] [place] [phone] Apr, Diabetic neuropathy, painful E11.40 [place] [address] [address] Apr, Diabetic neuropathy, painful E11.40 [facility] [place] [address] [address] Mar, Bronchitis J40 [place] [address] [address] January, Type 2 diabetes mellitus wit h complication E11.8 ; Diabetic neuropathy, painful E11.40 ; Impotence N52.9 ; Coronary atherosclerosis due to lipid rich plaque I25.83 ; 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.4 ; Interstitial lung disease J84.9 ; Hypoxia R09.02 ; Essential hypertension I10 ; Gastroesophageal reflux disease without esophagitis K21.9 ; Left upper arm pain M79.622 and Cervical spinal stenosis M48.02 [facility] [place] [address] [address] January, Viral gastroenteritis A08.4 [place] [address] [address] Dec, Diabetic neuropathy, painful E11.40 [place] [address] [address] [place] [id number] [place] [id number] Oct, [place] [address] [address] Oct, Acute right-sided weakness M 62.89 and Slurring of speech R47.81 [place] [address] [address] Sep, Type 2 diabetes mellitus wit h complication E11.8 ; Diabetic neuropathy, painful E11.40 ; Impotence N52.9 ; Coronary atherosclerosis due to lipid rich plaque I25.83 ; 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.4 ; Interstitial lung disease J84.9 ; Hypoxia R09.02 ; Essential hypertension I10 and Gastroesophageal reflux disease without esophagitis K21.9 [facility] [address] [facility] [id number] [address] [place] [phone] Sep, Bronchitis J40 [facility] [address] [facility] [id number] [address] [place] [phone] Aug, Gastroenteritis and colitis, viral A08.4 [facility] [place] [address] [facility] [id number] [address] [place] [phone] Aug, [facility] [place] [address] [facility] [id number] [address] [place] [phone] Jun, Type 2 diabetes mellitus wit h complication E11.8 ; Diabetic neuropathy, painful E11.40 ; Impotence N52.9 ; Coronary atherosclerosis due to lipid rich plaque I25.83 ; 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 ; Interstitial lung disease J84.9 ; Hypoxia R09.02 and Essential hypertension I10 [facility] [place] [address] [facility] [id number] [address] [place] [id number] 30 May, 2016 Bronchitis J40 [facility] [place] [address] [facility] [id number] [address] [place] [phone] 29 May, 2016 [facility] [place] [address] [facility] [id number] [address] [place] [phone] May, Pain of right upper extremit y M79.601 [facility] [place] [address] [facility] [id number] [address] [place] [phone] May, [facility] [place] [address] [facility] [id number] [address] [place] [phone] 15 May, 2016 [facility] [place] [address] [facility] [id number] [address] [place] [phone] 07 May, 2016 Right hand pain M79.641 [facility] [place] [address] [facility] [id number] [address] [place] [phone] Apr, [facility] [place] [address] [facility] [id number] [address] [place] [phone] Apr, [facility] [place] [address] [id number] [address] [place] [phone] Mar, [facility] [place] [address] [facility] [id number] [address] [place] [phone] Mar, Essential hypertension I10 [facility] [place] [address] [facility] [id number] [address] [place] [phone] Feb, [facility] [place] [address] [facility] [id number] [address] [place] [phone] Feb, Interstitial lung disease J8 4.9 and Bronchitis J40 [place] [address] [facility] [id number] [address] [place] [phone] Feb, [place] [address] [address] [facility] [id number] [address] [place] [phone] Feb, Type 2 diabetes mellitus wit h complication E11.8 ; Impotence N52.9 ; Coronary atherosclerosis due to lipid rich plaque I25.83 ; 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 and Diabetic neuropathy, painful E11.40 [place] [address] [address] [facility] [id number] [address] [place] [phone] January, [place] [address] [address] [facility] [id number] [address] [place] [phone] January, Arm paresthesia, right R20.2 and Pain of right upper extremity M79.601 [place] [address] [address] [facility] [id number] [address] [place] [phone] Dec, Lumbar strain S39.012A [place] [address] [address] [facility] [id number] [address] [place] [phone] Nov, Diabetic neuropathy, painful E11.40 ; Respiratory bronchiolitis interstitial lung disease J84.115 ; Pain of right upper extremity M79.601 and Arm paresthesia, right R20.2 [place] [address] [address] [facility] [id number] [address] [place] [phone] Nov, Diabetic neuropathy, painful E11.[address] [facility] [address] [address] Sep, Type 2 diabetes mellitus wit h complication E11.8 ; Impotence N52.9 ; Coronary atherosclerosis due to lipid rich plaque I25.83 ; 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.4 ; Diabetic neuropathy, painful E11.40 ; Chest pain R07.9 and Restless leg G25.[address] [address] Sep, [address] [address] Jul, COPD (chronic obstructive pu lmonary disease) with acute bronchitis J44.[address] [address] Jun, Abdominal pain R10.9 ; Famil y history of colon cancer Z80.0 and Diverticulitis K57.[address] [address] Jun, Abdominal pain R10.9 and Div erticulitis K57.[address] [address] Apr, Diabetes with other specifie d manifestations, type II or unspecified type, not stated as uncontrolled 250.80 ; Coronary atherosclerosis of unspecified type of vessel, [place] or graft 414.00 ; Unspecified essential hypertension 401.9 ; Impotence of organic origin 607.84 ; Sleep apnea 780.57 and Interstitial lung disease [address] [address] Dec, [address] [address] Dec, [address] [address] Nov, [address] [address] Nov, [facility] [address] [id number] [address] [place] [address], [place] [address] Nov, [facility] [address] [id number] [address] [place] [address], [place] [address] Nov, [facility] [address] [id number] [address] [place] [address], [place] [address] Nov, [facility] [address] [id number] [address] [place] [address], [place] [address] Nov, [facility] [address] [id number] [address] [place] [address], [place] [address] Nov, [facility] [address] [id number] [address] [place] [address], [place] [address] Nov, [facility] [address] [id number] [address] [place] [address], [place] [address] Nov, [facility] [address] [id number] [address] [place] [address], [place] [address] Nov, [facility] [address] [id number] [address] [place] [address], [place] [id number] Oct, [facility] [address] [id number] [address] [place] [address], [place] [address] Oct, 2014 [facility] [address] [id number] [address] [place] [address], [place] [address] Oct, 2014 [facility] [address] [id number] [address] [place] [phone] Oct, 2014 [facility] [address] [id number] [address] [place] [address], [place] [address] Oct, 2014 [facility] [address] [id number] [address] [place] [address], [place] [address] Oct, 2014 [facility] [address] [id number] [address] [place] [address], [place] [address] Oct, 2014 [facility] [address] [id number] [address] [place] [address], [place] [address] 04 Oct, 2014 [facility] [address] [id number] [address] [place] [address], [place] [address] Oct, 2014 [facility] [address] [id number] [address] [place] [address], [place] [address] Oct, 2014 [facility] [address] [id number] [address] [place] [address], [place] [address] Oct, 2014 [facility] [address] [id number] [address] [place] [address], [place] [address] Jul, [facility] [address] [id number] [address] [place] [address], [place] [address] Jul, [facility] [address] [id number] [address] [place] [address], [place] [address] Jun, [facility] [address] [id number] [address] [place] [address], [place] [address] 29 Jun, 2014 [facility] [address] [id number] [address] [place] [address], [place] [address] Jun, [facility] [address] [id number] [address] [place] [address], [place] [id number] 17 Jun, 2014 [facility] [address] [id number] [address] [place] [address], [place] [address] 15 Jun, 2014 [facility] [address] [id number] [address] [place] [address], [place] [id number] 15 Jun, 2014 [facility] [address] [id number] [address] [place] [address], [place] [id number] 14 Jun, 2014 [facility] [address] [id number] [address] [place] [address], [place] [address] 14 Jun, 2014 [facility] [address] [id number] [address] [place] [address], [place] [address] 13 Jun, 2014 [facility] [address] [id number] [address] [place] [address], [place] [address] Jun, [facility] [address] [id number] [address] [place] [address], [place] [address] 08 Jun, 2014 [facility] [address] [id number] [address] [place] [address], [place] [address] 08 Jun, 2014 [facility] [address] [id number] [address] [place] [address], [place] [address] Jun, [facility] [address] [id number] [address] [place] [address], [place] [address] Jun, [facility] [address] [id number] [address] [place] [address], [place] [address] 30 May, 2014 [facility] [address] [id number] [address] [place] [address], [place] [address] 30 May, 2014 [facility] [address] [id number] [address] [place] [address], [place] [address] May, [facility] [address] [id number] [address] [place] [address], [place] [address] May, [facility] [address] [id number] [address] [place] [address], [place] [address] 05 May, 2014 [facility] [address] [id number] [address] [place] [address], [place] [address] 05 May, 2014 [facility] [address] [id number] [address] [place] [address], [place] [address] Apr, [facility] [address] [id number] [address] [place] [address], [place] [address] Apr, [facility] [address] [id number] [address] [place] [address], [place] [address] Apr, [facility] [address] [id number] [address] [place] [address], [place] [address] Apr, [facility] [address] [id number] [address] [place] [address], [place] [address] Apr, [facility] [address] [id number] [address] [place] [address], [place] [address] Apr, [facility] [address] [id number] [facility] [place] [address] Apr, [facility] [address] [id number] [facility] [place] [address] Apr, [facility] [address] [id number] [facility] [place] [address] Apr, [facility] [address] [id number] [address] [place] [address], [place] [id number] Apr, [facility] [address] [id number] [address] [place] [address], [place] [address] Apr, [facility] [address] [id number] [address] [place] [address], [place] [address] Apr, [facility] [address] [id number] [address] [place] [address], [place] [address] Mar, [facility] [address] [id number] [address] [place] [address], [place] [address] Mar, [facility] [address] [id number] [address] [place] [address], [place] [address] Mar, [facility] [address] [id number] [address] [place] [address], [place] [address] Mar, [facility] [address] [id number] [address] [place] [address], [place] [address] Mar, [facility] [address] [id number] [address] [place] [address], [place] [address] Mar, [facility] [address] [id number] [address] [place] [address], [place] [address] Mar, [facility] [address] [id number] [address] [place] [address], [place] [address] Mar, [facility] [address] [id number] [address] [place] [address], [place] [address] Mar, [facility] [address] [id number] [facility] [place] [address] Mar, [facility] [address] [id number] [facility] [place] [address] Mar, [facility] [address] [id number] [facility] [place] [address] Feb, [facility] [address] [id number] [facility] [place] [address] Feb, [facility] [address] [id number] [address] [place] [address], [place] [address] Feb, [facility] [address] [id number] [address] [place] [address], [place] [address] Feb, [facility] [address] [id number] [address] [place] [address], [place] [address] Feb, [facility] [address] [id number] [address] [place] [address], [place] [address] Feb, [facility] [address] [id number] [address] [place] [address], [place] [address] Feb, [facility] [address] [id number] [address] [place] [address], [place] [address] Feb, [facility] [address] [id number] [address] [place] [address], [place] [address] Feb, [facility] [address] [id number] [address] [place] [address], [place] [address] Feb, [facility] [address] [id number] [address] [place] [address], [place] [address] January, [facility] [address] [id number] [address] [place] [address], [place] [address] January, [facility] [address] [id number] [address] [place] [address], [place] [address] January, [facility] [address] [id number] [address] [place] [address], [place] [address] January, [facility] [address] [id number] [facility] [place] [address] January, [facility] [address] [id number] [address] [place] [address], [place] [address] January, [facility] [address] [id number] [address] [place] [address], [place] [address] January, [facility] [address] [id number] [address] [place] [address], [place] [id number] January, [facility] [address] [id number] [address] [place] [address], [place] [id number] January, [facility] [address] [id number] [address] [place] [address], [place] [id number] January, [facility] [address] [id number] [address] [place] [address], [place] [id number] January, [facility] [address] [id number] [address] [place] [address], [place] [id number] January, [facility] [address] [id number] [address] [place] [address], [place] [id number] January, [facility] [address] [id number] [address] [place] [address], [place] [id number] January, [facility] [address] [id number] [address] [place] [address], [place] [id number] January, [facility] [address] [id number] [address] [place] [address], [place] [id number] January, [facility] [address] [id number] [address] [place] [address], [place] [id number] Dec, [facility] [address] [id number] [address] [place] [address], [place] [id number] Dec, [facility] [address] [id number] [address] [place] [address], [place] [id number] Dec, [facility] [address] [id number] [address] [place] [address], [place] [id number] 17 Dec, 2013 [facility] [address] [id number] [address] [place] [address], [place] [id number] Dec, [facility] [address] [id number] [address] [place] [address], [place] [id number] Dec, [facility] [address] [id number] [address] [place] [address], [place] [id number] Dec, [facility] [address] [id number] [address] [place] [address], [place] [id number] Dec, [facility] [address] [id number] [address] [place] [address], [place] [id number] Dec, [facility] [address] [id number] [address] [place] [address], [place] [id number] Dec, [facility] [address] [id number] [address] [place] [address], [place] [id number] Nov, [facility] [address] [id number] [address] [place] [address], [place] [id number] Nov, [facility] [address] [id number] [address] [place] [address], [place] [id number] Oct, [facility] [address] [id number] [address] [place] [address], [place] [id number] Oct, [facility] [address] [id number] [address] [place] [address], [place] [id number] Oct, [facility] [address] [id number] [address] [place] [address], [place] [id number] Sep, [facility] [address] [id number] [address] [place] [address], [place] [id number] Sep, [facility] [address] [id number] [address] [place] [address], [place] [id number] Sep, [facility] [address] [id number] [address] [place] [address], [place] [id number] Sep, [facility] [address] [id number] [address] [place] [address], [place] [id number] Sep, [facility] [address] [id number] [address] [place] [address], [place] [id number] Sep, [facility] [address] [id number] [address] [place] [address], [place] [id number] Sep, [facility] [address] [id number] [address] [place] [address], [place] [id number] Sep, [facility] [address] [id number] [address] [place] [address], [place] [address] Sep, [facility] [address] [id number] [address] [place] [address], [place] [id number] Sep, [facility] [address] [id number] [address] [place] [address], [place] [id number] Sep, [facility] [address] [id number] [address] [place] [address], [place] [id number] Sep, [facility] [address] [id number] [address] [place] [address], [place] [id number] Aug, [facility] [address] [id number] [address] [place] [address], [place] [id number] Aug, [facility] [address] [id number] [address] [place] [address], [place] [id number] Aug, [facility] [address] [id number] [address] [place] [address], [place] [id number] Aug, [facility] [address] [id number] [address] [place] [address], [place] [id number] Jul, [facility] [address] [id number] [address] [place] [address], [place] [id number] Jul, [facility] [address] [id number] [address] [place] [address], [place] [id number] Jun, [facility] [address] [id number] [address] [place] [address] [place] [id number] 30 Jun, 2013 [facility] [address] [id number] [address] [place] [address], [place] [id number] Jun, [facility] [address] [id number] [address] [place] [address], [place] [id number] Jun, [facility] [address] [id number] [address] [place] [address], [place] [id number] Jun, [facility] [address] [id number] [address] [place] [address], [place] [id number] Jun, [facility] [address] [id number] [address] [place] [address], [place] [id number] Jun, [facility] [address] [id number] [address] [place] [address], [place] [id number] Jun, [facility] [address] [id number] [address] [place] [address], [place] [id number] 24 May, 2012 [facility] [address] [id number] [address] [place] [address], [place] [id number] 23 May, 2012 [facility] [address] [id number] [address] [place] [address], [place] [id number] 18 May, 2012 [facility] [address] [id number] [address] [place] [address], [place] [id number] 13 May, 2012 [facility] [address] [id number] [address] [place] [address], [place] [id number] 11 May, 2012 [facility] [address] [id number] [address] [place] [address], [place] [id number] 06 May, 2012 [facility] [address] [id number] [address] [place] [address], [place] [id number] 03 May, 2012 [facility] [address] [id number] [address] [place] [address], [place] [id number] 30 Apr, 2013 [facility] [address] [id number] [address] [place] [address], [place] [id number] 22 Apr, 2013 [facility] [address] [id number] [address] [place] [address], [place] [id number] Apr, [facility] [address] [id number] [address] [place] [address], [place] [id number] Apr, [facility] [address] [id number] [address] [place] [address], [place] [id number] Apr, [facility] [address] [id number] [address] [place] [address], [place] [id number] Apr, [facility] [address] [id number] [address] [place] [address], [place] [id number] Apr, [facility] [address] [id number] [address] [place] [address], [place] [id number] Mar, [facility] [address] [id number] [address] [place] [address], [place] [id number] Mar, [facility] [address] [id number] [address] [place] [address], [place] [id number] Mar, [facility] [address] [id number] [address] [place] [address], [place] [id number] Mar, [facility] [address] [id number] [address] [place] [address], [place] [id number] Mar, [facility] [address] [id number] [address] [place] [address], [place] [id number] Mar, [facility] [address] [id number] [address] [place] [address], [place] [id number] Mar, [facility] [address] [id number] [address] [place] [address], [place] [id number] Mar, [facility] [address] [id number] [address] [place] [address], [place] [id number] Feb, [facility] [address] [id number] [address] [place] [address], [place] [id number] Feb, [facility] [address] [id number] [address] [place] [address], [place] [id number] Feb, [facility] [address] [id number] [address] [place] [address], [place] [id number] January, [facility] [address] [id number] [address] [place] [address], [place] [id number] January, [facility] [address] [id number] [address] [place] [address], [place] [id number] January, [facility] [address] [id number] [address] [place] [address], [place] [id number] January, [facility] [address] [id number] [address] [place] [address], [place] [id number] January, [facility] [address] [id number] [address] [place] [address], [place] [id number] January, [facility] [address] [id number] [address] [place] [address], [place] [id number] January, [facility] [address] [id number] [address] [place] [address], [place] [id number] January, [facility] [address] [id number] [address] [place] [address], [place] [id number] Dec, [facility] [address] [id number] [address] [place] [address], [place] [id number] Dec, [facility] [address] [id number] [address] [place] [address], [place] [id number] Dec, [facility] [address] [id number] [address] [place] [address], [place] [id number] Dec, [facility] [address] [id number] [address] [place] [address], [place] [id number] Dec, [facility] [address] [id number] [address] [place] [address], [place] [id number] Nov, [facility] [address] [id number] [address] [place] [address], [place] [id number] Nov, [facility] [address] [id number] [address] [place] [address], [place] [id number] 19 Nov, 2012 [facility] [address] [id number] [address] [place] [address], [place] [id number] 18 Nov, 2012 [facility] [address] [id number] [address] [place] [address], [place] [id number] 18 Nov, 2012 [facility] [address] [id number] [address] [place] [address], [place] [id number] 14 Nov, 2012 [facility] [address] [id number] [address] [place] [address], [place] [id number] 11 Nov, 2012 [facility] [address] [id number] [address] [place] [address], [place] [id number] 11 Nov, 2012 [facility] [address] [id number] [address] [place] [address], [place] [id number] 21 Oct, 2012 [facility] [address] [id number] [address] [place] [address], [place] [id number] 21 Oct, 2012 [facility] [address] [id number] [address] [place] [address], [place] [id number] 12 Oct, 2012 [facility] [address] [id number] [address] [place] [address], [place] [id number] 08 Oct, 2012 [facility] [address] [id number] [address] [place] [address], [place] [id number] 07 Oct, 2012 [facility] [address] [id number] [address] [place] [address], [place] [id number] 07 Oct, 2012 [facility] [address] [id number] [address] [place] [address], [place] [id number] 05 Oct, 2012 [facility] [address] [id number] [address] [place] [address], [place] [id number] 04 Oct, 2012 [facility] [address] [id number] [address] [place] [address], [place] [id number] 04 Oct, 2012 [facility] [address] [id number] [address] [place] [address], [place] [id number] Sep, [facility] [address] [id number] [address] [place] [address], [place] [id number] Sep, [facility] [address] [id number] [address] [place] [address], [place] [id number] Sep, [facility] [address] [id number] [address] [place] [address], [place] [id number] Sep, [facility] [address] [id number] [address] [place] [address], [place] [id number] Sep, [facility] [address] [id number] [address] [place] [address], [place] [id number] Sep, [facility] [address] [id number] [address] [place] [address], [place] [id number] Aug, [facility] [address] [id number] [address] [place] [address], [place] [id number] Aug, [facility] [address] [id number] [address] [place] [address], [place] [id number] Aug, [facility] [address] [id number] [address] [place] [address], [place] [id number] Aug, [facility] [address] [id number] [address] [place] [address], [place] [id number] Aug, [facility] [address] [id number] [address] [place] [address], [place] [id number] 18 Aug, 2012 [facility] [address] [id number] [address] [place] [address], [place] [id number] 13 Aug, 2012 [facility] [address] [id number] [address] [place] [address], [place] [id number] Aug, [facility] [address] [id number] [address] [place] [address], [place] [id number] Aug, [facility] [address] [id number] [address] [place] [address], [place] [id number] Jul, [facility] [address] [id number] [address] [place] [id number] Jul, [facility] [address] [id number] [address] [place] [id number] Jul, [facility] [address] [id number] [address] [place] [id number] Jul, [facility] [address] [facility] [id number] [address] [place] [id number] Nov, [facility] [place] [address] [facility] [id number] [address] [place] [id number] Sep, [facility] [place] [address] [facility] [id number] [address] [place] [id number] Aug, [facility] [place] [address] [facility] [id number] [address] [place] [id number] Aug, [facility] [place] [address] [facility] [id number] [address] [place] [id number] Aug, [facility] [place] [address] [facility] [id number] [address] [place] [id number] Jul, IMMUNIZATIONS No Known Immunizations SOCIAL HISTORY [...] Rotator Cuff Repair [facility] 06/2016 Surgical History Colonoscopy Kido (1 Polyp) repeat 5 year s 2019 2014 Surgical History right rotator cuff surgery 06/27/2016 Hospitalization History Overdosed on Clonazepam #35. Lori parvin 03/2014 Hospitalization History Overdosed on Xanax 07/2012 Hospitalization History Hypostension-medication side effect-[facility] 03/13/16
--- OUTSIDE RECORDS SUMMARY | 2019-09-11 12:33 | XMS REPORT ---
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 Active 586813659 Problem Abdominal pain R10.9 Active 85642 001 Problem Change in bowel habit R19.4 Active 75629237 Problem Coronary atherosclerosis due to lipid rich plaque I25.83 Active 99076904 Problem Type 2 diabetes mellitus with complication E11.8 Active 19085848 Problem Impotence N52.9 Active 006227466 Problem Family history of colon cancer Z80.0 Active 322632446 Problem Diabetic neuropathy, painful E11.40 A ctive 208682933 Problem Arm paresthesia, right R20.2 Active 38206285 Problem Gastroesophageal reflux disease without esophagitis K21.9 Active 428634413 Problem Drug abuse, opioid type F11.10 Active 1455441 Problem COPD exacerbation J44.1 Active 19 0755997 Problem Obstructive sleep apnea syndrome G47.33 Active 79601191 Problem Diverticulitis K57.92 Active 56147 6006 Problem Pain of right upper extremity M79.601 Active 310531544 Problem Respiratory bronchiolitis interstitial lung disease J84.115 Active 428882748 Problem Hypoxia R09.02 Active 372140012 Problem Interstitial lung disease J84.9 Acti ve [id number] ALLERGIES No Information ENCOUNTERS Encounter Location Date Diagnosis [facility] [address] [facility] [id number] [address] [place] [address] Aug, [facility] [address] [facility] [id number] [address] [place] [address] Aug, Diabetic neuropathy, painful E11.40 ; Interstitial lung disease J84.9 ; Chronic cough R05 ; Type 2 diabetes mellitus with complication E11.8 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 [facility] [address] [facility] [id number] [address] [place] [address] Jul, [facility] [address] [facility] [id number] [address] [place] [address] Jul, [facility] [address] [place] [id number] [place] [address] Jul, Diabetic neuropathy, painful E11.40 [place] [address] [address] Jul, Type 2 diabetes mellitus wit h complication E11.8 [facility] [address] [place] [id number] [place] [address] Jun, Diabetic neuropathy, painful E11.40 [facility] [address] [address] Jun, [facility] [address] [address] Jun, Type 2 diabetes mellitus wit h complication E11.8 ; Other viral agents as the cause of diseases classified elsewhere B97.89 ; Acute upper respiratory infection, unspecified J06.9 ; Acute recurrent maxillary sinusitis J01.01 ; Sore throat J02.9 and Headache R51 [facility] [id number] [place] [address] Jun, Right lower quadrant abdomin al pain R10.31 and Type 2 diabetes mellitus with complication E11.8 [place] [address] [place] [id number] [place] [address] May, Diabetic neuropathy, painful E11.40 [facility] [address] [place] [id number] [address] [place] [address] 06 May, 2017 COPD exacerbation J44.1 and Type 2 diabetes mellitus with complication E11.8 [facility] [address] [place] [id number] [address] [place] [address] Apr, Diabetic neuropathy, painful E11.40 [place] [address] [address] Apr, Diabetic neuropathy, painful E11.40 [facility] [place] [address] [address] Mar, Bronchitis J40 [place] [address] [address] January, Type 2 diabetes mellitus wit h complication E11.8 ; Diabetic neuropathy, painful E11.40 ; Impotence N52.9 ; Coronary atherosclerosis due to lipid rich plaque I25.83 ; residential current use of insulin Z79.4 ; Interstitial lung disease J84.9 ; Hypoxia R09.02 ; Essential hypertension I10 ; Gastroesophageal reflux disease without esophagitis K21.9 ; Left upper arm pain M79.622 and Cervical spinal stenosis M48.02 [facility] [place] [address] [address] January, Viral gastroenteritis A08.4 [place] [address] [address] Dec, Diabetic neuropathy, painful E11.40 [place] [address] [address] [place] [id number] [place] [id number] Oct, [place] [address] [address] Oct, Acute right-sided weakness M 62.89 and Slurring of speech R47.81 [place] [address] [address] Sep, Type 2 diabetes mellitus wit h complication E11.8 ; Diabetic neuropathy, painful E11.40 ; Impotence N52.9 ; Coronary atherosclerosis due to lipid rich plaque I25.83 ; residential current use of insulin Z79.4 ; Interstitial lung disease J84.9 ; Hypoxia R09.02 ; Essential hypertension I10 and Gastroesophageal reflux disease without esophagitis K21.9 [facility] [address] [facility] [id number] [address] [place] [address] Sep, Bronchitis J40 [facility] [address] [facility] [id number] [address] [place] [address] Aug, Gastroenteritis and colitis, viral A08.4 [facility] [address] [facility] [id number] [address] [place] [address] Aug, [facility] [address] [facility] [id number] [address] [place] [address] Jun, Type 2 diabetes mellitus wit h complication E11.8 ; Diabetic neuropathy, painful E11.40 ; Impotence N52.9 ; Coronary atherosclerosis due to lipid rich plaque I25.83 ; 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 ; Interstitial lung disease J84.9 ; Hypoxia R09.02 and Essential hypertension I10 [facility] [address] [facility] [id number] [address] [place] [address] 30 May, 2016 Bronchitis J40 [facility] [address] [facility] [id number] [address] [place] [address] 29 May, 2016 [facility] [address] [facility] [id number] [address] [place] [address] May, Pain of right upper extremit y M79.601 [facility] [address] [facility] [id number] [address] [place] [address] May, [facility] [address] [facility] [id number] [address] [place] [id number] 15 May, 2016 [facility] [address] [facility] [id number] [address] [place] [address] 07 May, 2016 Right hand pain M79.641 [facility] [address] [facility] [id number] [address] [place] [address] Apr, [facility] [address] [facility] [id number] [address] [place] [address] Apr, [facility] [address] [id number] [address] [place] [address] Mar, [facility] [address] [facility] [id number] [address] [place] [address] Mar, Essential hypertension I10 [facility] [address] [facility] [id number] [address] [place] [address] Feb, [facility] [address] [facility] [id number] [address] [place] [address] Feb, Interstitial lung disease J8 4.9 and Bronchitis J40 [place] [address] [address] [facility] [id number] [address] [place] [address] Feb, [place] [address] [address] [facility] [id number] [address] [place] [address] Feb, Type 2 diabetes mellitus wit h complication E11.8 ; Impotence N52.9 ; Coronary atherosclerosis due to lipid rich plaque I25.83 ; 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 and Diabetic neuropathy, painful E11.40 [place] [address] [facility] [id number] [address] [place] [address] January, [place] [address] [facility] [id number] [address] [place] [address] January, Arm paresthesia, right R20.2 and Pain of right upper extremity M79.601 [place] [address] [address] [facility] [id number] [address] [place] [address] Dec, Lumbar strain S39.012A [place] [address] [facility] [id number] [address] [place] [address] Nov, Diabetic neuropathy, painful E11.40 ; Respiratory bronchiolitis interstitial lung disease J84.115 ; Pain of right upper extremity M79.601 and Arm paresthesia, right R20.2 [place] [address] [facility] [id number] [address] [place] [address] Nov, Diabetic neuropathy, painful E11.40 [facility] [address] Sep, Type 2 diabetes mellitus wit h complication E11.8 ; Impotence N52.9 ; Coronary atherosclerosis due to lipid rich plaque I25.83 ; residential current use of insulin Z79.4 ; Diabetic neuropathy, painful E11.40 ; Chest pain R07.9 and Restless leg G25.[address] [address] Sep, [address] [address] Jul, COPD (chronic obstructive pu lmonary disease) with acute bronchitis J44.[address] [address] Jun, Abdominal pain R10.9 ; Famil y history of colon cancer Z80.0 and Diverticulitis K57.[address] [address] Jun, Abdominal pain R10.9 and Div erticulitis K57.[address] [address] Apr, Diabetes with other specifie d manifestations, type II or unspecified type, not stated as uncontrolled 250.80 ; Coronary atherosclerosis of unspecified type of vessel, nez perce or graft 414.00 ; Unspecified essential hypertension 401.9 ; Impotence of organic origin 607.84 ; Sleep apnea 780.57 and Interstitial lung disease [address] [address] Dec, [address] [address] Dec, [address] [address] Nov, [address] [address] Nov, [facility] [address] [id number] [address] [place] [address], [place] [address] Nov, [facility] [address] [id number] [address] [place] [address], [place] [address] Nov, [facility] [address] [id number] [address] [place] [address], [place] [address] Nov, [facility] [address] [id number] [address] [place] [address], [place] [address] Nov, [facility] [address] [id number] [address] [place] [address], [place] [address] Nov, [facility] [address] [id number] [address] [place] [address], [place] [address] Nov, [facility] [address] [id number] [address] [place] [address], [place] [address] Nov, [facility] [address] [id number] [address] [place] [address], [place] [address] Nov, [facility] [address] [id number] [address] [place] [address], [place] [address] Oct, [facility] [address] [id number] [address] [place] [address], [place] [address] Oct, 2014 [facility] [address] [id number] [address] [place] [address], [place] [address] Oct, 2014 [facility] [address] [id number] [address] [place] [id number] Oct, 2014 [facility] [address] [id number] [address] [place] [address], [place] [address] Oct, 2014 [facility] [address] [id number] [address] [place] [address], [place] [address] Oct, 2014 [facility] [address] [id number] [address] [place] [address], [place] [address] Oct, 2014 [facility] [address] [id number] [address] [place] [address], [place] [address] 04 Oct, 2014 [facility] [address] [id number] [address] [place] [address], [place] [address] Oct, 2014 [facility] [address] [id number] [address] [place] [address], [place] [address] Oct, 2014 [facility] [address] [id number] [address] [place] [address], [place] [address] Oct, 2014 [facility] [address] [id number] [address] [place] [address], [place] [address] Jul, [facility] [address] [id number] [address] [place] [address], [place] [address] Jul, [facility] [address] [id number] [address] [place] [address], [place] [address] Jun, [facility] [address] [id number] [address] [place] [address], [place] [address] 29 Jun, 2014 [facility] [address] [id number] [address] [place] [address], [place] [address] Jun, [facility] [address] [id number] [address] [place] [address], [place] [address] 17 Jun, 2014 [facility] [address] [id number] [address] [place] [address], [place] [address] 15 Jun, 2014 [facility] [address] [id number] [address] [place] [address], [place] [address] 15 Jun, 2014 [facility] [address] [id number] [address] [place] [address], [place] [address] 14 Jun, 2014 [facility] [address] [id number] [address] [place] [address], [place] [address] 14 Jun, 2014 [facility] [address] [id number] [address] [place] [address], [place] [address] 13 Jun, 2014 [facility] [address] [id number] [address] [place] [address], [place] [address] Jun, [facility] [address] [id number] [address] [place] [address], [place] [address] 08 Jun, 2014 [facility] [address] [id number] [address] [place] [address], [place] [address] 08 Jun, 2014 [facility] [address] [id number] [address] [place] [address], [place] [address] Jun, [facility] [address] [id number] [address] [place] [address], [place] [address] Jun, [facility] [address] [id number] [address] [place] [address], [place] [address] 30 May, 2014 [facility] [address] [id number] [address] [place] [address], [place] [address] 30 May, 2014 [facility] [address] [id number] [address] [place] [address], [place] [address] May, [facility] [address] [id number] [address] [place] [address], [place] [address] May, [facility] [address] [id number] [address] [place] [address], [place] [address] 05 May, 2014 [facility] [address] [id number] [address] [place] [address], [place] [address] 05 May, 2014 [facility] [address] [id number] [address] [place] [address], [place] [address] Apr, [facility] [address] [id number] [address] [place] [address], [place] [address] Apr, [facility] [address] [id number] [address] [place] [address], [place] [address] Apr, [facility] [address] [id number] [address] [place] [address], [place] [address] Apr, [facility] [address] [id number] [address] [place] [address], [place] [address] Apr, [facility] [address] [id number] [address] [place] [address], [place] [address] Apr, [facility] [address] [id number] [facility] [place] [address] Apr, [facility] [address] [id number] [facility] [place] [address] Apr, [facility] [address] [id number] [facility] [place] [address] Apr, [facility] [address] [id number] [address] [place] [address], [place] [address] Apr, [facility] [address] [id number] [address] [place] [address], [place] [address] Apr, [facility] [address] [id number] [address] [place] [address], [place] [address] Apr, [facility] [address] [id number] [address] [place] [address], [place] [address] Mar, [facility] [address] [id number] [address] [place] [address], [place] [address] Mar, [facility] [address] [id number] [address] [place] [address], [place] [address] Mar, [facility] [address] [id number] [address] [place] [address], [place] [address] Mar, [facility] [address] [id number] [address] [place] [address], [place] [address] Mar, [facility] [address] [id number] [address] [place] [address], [place] [address] Mar, [facility] [address] [id number] [address] [place] [address], [place] [address] Mar, [facility] [address] [id number] [address] [place] [address], [place] [address] Mar, [facility] [address] [id number] [address] [place] [address], [place] [address] Mar, [facility] [address] [id number] [facility] [place] [address] Mar, [facility] [address] [id number] [facility] [place] [address] Mar, [facility] [address] [id number] [facility] [place] [address] Feb, [facility] [address] [id number] [facility] [place] [address] Feb, [facility] [address] [id number] [address] [place] [address], [place] [address] Feb, [facility] [address] [id number] [address] [place] [address], [place] [address] Feb, [facility] [address] [id number] [address] [place] [address], [place] [address] Feb, [facility] [address] [id number] [address] [place] [address], [place] [address] Feb, [facility] [address] [id number] [address] [place] [address], [place] [address] Feb, [facility] [address] [id number] [address] [place] [address], [place] [address] Feb, [facility] [address] [id number] [address] [place] [address], [place] [address] Feb, [facility] [address] [id number] [address] [place] [address], [place] [address] Feb, [facility] [address] [id number] [address] [place] [address], [place] [address] January, [facility] [address] [id number] [address] [place] [address], [place] [address] January, [facility] [address] [id number] [address] [place] [address], [place] [address] January, [facility] [address] [id number] [address] [place] [address], [place] [address] January, [facility] [address] [id number] [facility] [place] [address] January, [facility] [address] [id number] [address] [place] [address], [place] [address] January, [facility] [address] [id number] [address] [place] [address], [place] [address] January, [facility] [address] [id number] [address] [place] [address], [place] [address] January, [facility] [address] [id number] [address] [place] [address], [place] [address] January, [facility] [address] [id number] [address] [place] [address], [place] [address] January, [facility] [address] [id number] [address] [place] [address], [place] [address] January, [facility] [address] [id number] [address] [place] [address], [place] [address] January, [facility] [address] [id number] [address] [place] [address], [place] [address] January, [facility] [address] [id number] [address] [place] [address], [place] [address] January, [facility] [address] [id number] [address] [place] [address], [place] [address] January, [facility] [address] [id number] [address] [place] [address], [place] [address] January, [facility] [address] [id number] [address] [place] [address], [place] [address] Dec, [facility] [address] [id number] [address] [place] [address], [place] [address] Dec, [facility] [address] [id number] [address] [place] [address], [place] [address] Dec, [facility] [address] [id number] [address] [place] [address], [place] [address] 17 Dec, 2013 [facility] [address] [id number] [address] [place] [address], [place] [address] Dec, [facility] [address] [id number] [address] [place] [address], [place] [address] Dec, [facility] [address] [id number] [address] [place] [address], [place] [address] Dec, [facility] [address] [id number] [address] [place] [address], [place] [address] Dec, [facility] [address] [id number] [address] [place] [address], [place] [address] Dec, [facility] [address] [id number] [address] [place] [address], [place] [address] Dec, [facility] [address] [id number] [address] [place] [address], [place] [address] Nov, [facility] [address] [id number] [address] [place] [address], [place] [address] Nov, [facility] [address] [id number] [address] [place] [address], [place] [address] Oct, [facility] [address] [id number] [address] [place] [address], [place] [address] Oct, [facility] [address] [id number] [address] [place] [address], [place] [address] Oct, [facility] [address] [id number] [address] [place] [address], [place] [address] Sep, [facility] [address] [id number] [address] [place] [address], [place] [address] Sep, [facility] [address] [id number] [address] [place] [address], [place] [address] Sep, [facility] [address] [id number] [address] [place] [address], [place] [address] Sep, [facility] [address] [id number] [address] [place] [address], [place] [address] Sep, [facility] [address] [id number] [address] [place] [address], [place] [address] Sep, [facility] [address] [id number] [address] [place] [address], [place] [address] Sep, [facility] [address] [id number] [address] [place] [address], [place] [address] Sep, [facility] [address] [id number] [address] [place] [address], [place] [address] Sep, [facility] [address] [id number] [address] [place] [address], [place] [address] Sep, [facility] [address] [id number] [address] [place] [address], [place] [address] Sep, [facility] [address] [id number] [address] [place] [address], [place] [address] Sep, [facility] [address] [id number] [address] [place] [address], [place] [address] Aug, [facility] [address] [id number] [address] [place] [address], [place] [address] Aug, [facility] [address] [id number] [address] [place] [address], [place] [address] Aug, [facility] [address] [id number] [address] [place] [address], [place] [address] Aug, [facility] [address] [id number] [address] [place] [address], [place] [address] Jul, [facility] [address] [id number] [address] [place] [address], [place] [address] Jul, [facility] [address] [id number] [address] [place] [address], [place] [address] Jun, [facility] [address] [id number] [address] [place] [address] [place] [address] 30 Jun, 2013 [facility] [address] [id number] [address] [place] [address], [place] [address] Jun, [facility] [address] [id number] [address] [place] [address], [place] [address] Jun, [facility] [address] [id number] [address] [place] [address], [place] [address] Jun, [facility] [address] [id number] [address] [place] [address], [place] [address] Jun, [facility] [address] [id number] [address] [place] [address], [place] [address] Jun, [facility] [address] [id number] [address] [place] [address], [place] [address] Jun, [facility] [address] [id number] [address] [place] [address], [place] [address] 24 May, 2012 [facility] [address] [id number] [address] [place] [address], [place] [address] 23 May, 2012 [facility] [address] [id number] [address] [place] [address], [place] [address] 18 May, 2012 [facility] [address] [id number] [address] [place] [address], [place] [address] 13 May, 2012 [facility] [address] [id number] [address] [place] [address], [place] [address] 11 May, 2012 [facility] [address] [id number] [address] [place] [address], [place] [address] 06 May, 2012 [facility] [address] [id number] [address] [place] [address], [place] [address] 03 May, 2012 [facility] [address] [id number] [address] [place] [address], [place] [address] 30 Apr, 2013 [facility] [address] [id number] [address] [place] [address], [place] [address] 22 Apr, 2013 [facility] [address] [id number] [address] [place] [address], [place] [address] Apr, [facility] [address] [id number] [address] [place] [address], [place] [address] Apr, [facility] [address] [id number] [address] [place] [address], [place] [address] Apr, [facility] [address] [id number] [address] [place] [address], [place] [address] Apr, [facility] [address] [id number] [address] [place] [address], [place] [address] Apr, [facility] [address] [id number] [address] [place] [address], [place] [address] Mar, [facility] [address] [id number] [address] [place] [address], [place] [address] Mar, [facility] [address] [id number] [address] [place] [address], [place] [address] Mar, [facility] [address] [id number] [address] [place] [address], [place] [address] Mar, [facility] [address] [id number] [address] [place] [address], [place] [address] Mar, [facility] [address] [id number] [address] [place] [address], [place] [address] Mar, [facility] [address] [id number] [address] [place] [address], [place] [address] Mar, [facility] [address] [id number] [address] [place] [address], [place] [address] Mar, [facility] [address] [id number] [address] [place] [address], [place] [address] Feb, [facility] [address] [id number] [address] [place] [address], [place] [address] Feb, [facility] [address] [id number] [address] [place] [address], [place] [address] Feb, [facility] [address] [id number] [address] [place] [address], [place] [address] January, [facility] [address] [id number] [address] [place] [address], [place] [address] January, [facility] [address] [id number] [address] [place] [address], [place] [address] January, [facility] [address] [id number] [address] [place] [address], [place] [address] January, [facility] [address] [id number] [address] [place] [address], [place] [address] January, [facility] [address] [id number] [address] [place] [address], [place] [address] January, [facility] [address] [id number] [address] [place] [address], [place] [address] January, [facility] [address] [id number] [address] [place] [address], [place] [address] January, [facility] [address] [id number] [address] [place] [address], [place] [address] Dec, [facility] [address] [id number] [address] [place] [address], [place] [address] Dec, [facility] [address] [id number] [address] [place] [address], [place] [address] Dec, [facility] [address] [id number] [address] [place] [address], [place] [address] Dec, [facility] [address] [id number] [address] [place] [address], [place] [address] Dec, [facility] [address] [id number] [address] [place] [address], [place] [address] Nov, [facility] [address] [id number] [address] [place] [address], [place] [address] Nov, [facility] [address] [id number] [address] [place] [address], [place] [address] 19 Nov, 2012 [facility] [address] [id number] [address] [place] [address], [place] [address] 18 Nov, 2012 [facility] [address] [id number] [address] [place] [address], [place] [address] 18 Nov, 2012 [facility] [address] [id number] [address] [place] [address], [place] [address] 14 Nov, 2012 [facility] [address] [id number] [address] [place] [address], [place] [address] 11 Nov, 2012 [facility] [address] [id number] [address] [place] [address], [place] [address] 11 Nov, 2012 [facility] [address] [id number] [address] [place] [address], [place] [address] 21 Oct, 2012 [facility] [address] [id number] [address] [place] [address], [place] [address] 21 Oct, 2012 [facility] [address] [id number] [address] [place] [address], [place] [address] 12 Oct, 2012 [facility] [address] [id number] [address] [place] [address], [place] [address] 08 Oct, 2012 [facility] [address] [id number] [address] [place] [address], [place] [address] 07 Oct, 2012 [facility] [address] [id number] [address] [place] [address], [place] [address] 07 Oct, 2012 [facility] [address] [id number] [address] [place] [address], [place] [address] 05 Oct, 2012 [facility] [address] [id number] [address] [place] [address], [place] [address] 04 Oct, 2012 [facility] [address] [id number] [address] [place] [address], [place] [address] 04 Oct, 2012 [facility] [address] [id number] [address] [place] [address], [place] [address] Sep, [facility] [address] [id number] [address] [place] [address], [place] [address] Sep, [facility] [address] [id number] [address] [place] [address], [place] [address] Sep, [facility] [address] [id number] [address] [place] [address], [place] [address] Sep, [facility] [address] [id number] [address] [place] [address], [place] [address] Sep, [facility] [address] [id number] [address] [place] [address], [place] [address] Sep, [facility] [address] [id number] [address] [place] [address], [place] [address] Aug, [facility] [address] [id number] [address] [place] [address], [place] [address] Aug, [facility] [address] [id number] [address] [place] [address], [place] [address] Aug, [facility] [address] [id number] [address] [place] [address], [place] [address] Aug, [facility] [address] [id number] [address] [place] [address], [place] [address] Aug, [facility] [address] [id number] [address] [place] [address], [place] [address] 18 Aug, 2012 [facility] [address] [id number] [address] [place] [address], [place] [address] 13 Aug, 2012 [facility] [address] [id number] [address] [place] [address], [place] [address] Aug, [facility] [address] [id number] [address] [place] [address], [place] [address] Aug, [facility] [address] [id number] [address] [place] [address], [place] [address] Jul, [facility] [address] [id number] [address] [place] [id number] Jul, [facility] [address] [id number] [address] [place] [id number] Jul, [facility] [address] [id number] [address] [place] [id number] Jul, [facility] [address] [id number] [address] [place] [id number] Nov, [facility] [address] [id number] [address] [place] [address] Sep, [facility] [address] [facility] [id number] [address] [place] [address] Aug, [facility] [address] [id number] [address] [place] [id number] Aug, [facility] [address] [facility] [id number] [address] [place] [id number] Aug, [facility] [address] [facility] [id number] [address] [place] [id number] Jul, IMMUNIZATIONS No Known Immunizations SOCIAL HISTORY Never Assessed REASON FOR VISIT PLAN OF CARE VITAL SIGNS Height 74 in 2014-12-02 Weight 231.5 lbs 2014-12-02 Temperature 97.8 degrees Fahrenheit 2014-12-02 Heart Rate 92 bpm 2014-12-02 Respiratory Rate 18 2014-12-02 Blood pressure systolic 132 mmHg 2014-12-02 Blood pressure diastolic 86 mmHg 2014-12-02 MEDICATIONS Unknown Medications RESULTS No Results PROCEDURES Procedure Date Ordered Result Body Site ECHO EXAMINATION PROCEDURE December 02, 2014 INSTRUCTIONS MEDICATIONS ADMINISTERED No Known Medications [...]
--- OUTSIDE RECORDS SUMMARY | 2019-09-11 12:39 | XMS REPORT | Continuity of Care Document ---
Author Organization Unknown Address Unknown Phone Unavailable Allergies Active Description Code Type Severity Reaction Onset Reported/Identified Relationship to Patient Clinical Status Yes No Known Drug Allergies [id number] Drug Allergy Unknown N/A 05/31/2013 Yes clonazepam 1 mg tablet Drug Allergy N/A N/A 05/12/2014 Yes hydrocodone-acetaminophen 7.5-325 mg tablet Drug Allergy N/A N/A 4 Yes Tramadol hcl oral tablet 50 mg 50 mg tablet Drug Allergy N/A N/A 4 Yes ceftriaxone [id number] Drug Aller gy Unknown N/A 07/03/2017 Yes ceftriaxone [id number] Drug Aller gy Moderate N/A 08/11/2018 Medications There is no data. Problems Date Dx Coded Attending Type Code Diagnosis Diagnosed By 08/15/1014 LIZZETTE OLSON APRN Ot E11.69 TYPE 2 DIABETES MELLITUS WITH OTHER SPEC 08/15/1014 LIZZETTE OLSON APRN Ot M86.472 CHRONIC OSTEOMYELITIS W DRAINING SINUS, 08/15/1109 ANAID WALLIS, KIMBER Le Ot M25.511 PAIN IN RIGHT SHOULDER 08/15/1109 ANAID WALLIS, KIMBER Le Ot Z47.89 ENCOUNTER FOR OTHER ORTHOPEDIC AFTERCARE 10/25/2010 Ot 250.02 LOAN B YAHAIRA WO COMPL, TYPE II OR UNSPEC TY 10/25/2010 Ot 272.4 HYPE RLIPIDEMIA NEC/NOS 10/25/2010 Ot 276.51 DEH YDRATION 10/25/2010 Ot 308.1 STRE SS REACTION, FUGUE 10/25/2010 Ot 401.9 HYPE RTENSION NOS 10/25/2010 Ot 787.91 LOAN RRHEA 10/25/2010 Ot V58.67 JS G-TERM (CURRENT) USE OF INSULIN 10/25/2010 Ot V58.69 OTH MED,LT,CURRENT USE 08/08/2011 JUDY MERCER APRN 250.90 DIABETES TYPE 2 W/ COMPLICATIONS (UNSPEC) 08/08/2011 SYLVIE PATIENT COORDINATOR, JUDY T 27 2.4 HYPERLIPIDEMIA 08/08/2011 JUDY MERCER APRN T 40 1.1 HYPERTENSION, BENIGN ESSENTIAL 08/08/2011 SYLVIE MINER, JUDY T 845.00 SPRAIN/STRAIN ANKLE 08/08/2011 TESSA MCKEON MD 250.9 0 DIABETES MELLITUS TYPE 2 WITH COMPLICATION 08/08/2011 TESSA MCKEON MD 272.4 HYPERLIPIDEMIA 08/08/2011 TESSA MCKEON MD 401.1 HYPERTENSION, BENIGN ESSENTIAL 08/08/2011 TESSA MCKEON MD 845.0 0 SPRAIN/STRAIN ANKLE 08/08/2011 PATY LATHAM MD 250.90 DIABETES MELLITUS TYPE 2 WITH COMPLICATION 08/08/2011 PATY LATHAM MD 272.4 HYPERLIPIDEMIA 08/08/2011 PATY LATHAM MD 401.1 ESSENTIAL HYPERTENSION BENIGN 08/08/2011 PATY LATHMA MD 845.00 SPRAIN/STRAIN ANKLE 08/08/2011 TESSA MCKEON MD 250.9 0 DIABETES MELLITUS TYPE 2 WITH COMPLICATION 08/08/2011 TESSA MCKEON MD 272.4 HYPERLIPIDEMIA 08/08/2011 TESSA MCKEON MD 401.1 ESSENTIAL HYPERTENSION BENIGN 08/08/2011 TESSA MCKEON MD 845.0 0 SPRAIN/STRAIN ANKLE 08/08/2011 PATY LATHAM MD 250.90 DIABETES MELLITUS TYPE 2 WITH COMPLICATION 08/08/2011 PATY LATHAM MD 272.4 HYPERLIPIDEMIA 08/08/2011 PATY LATHAM MD 401.1 ESSENTIAL HYPERTENSION BENIGN 08/08/2011 PATY LATHAM MD 845.00 SPRAIN/STRAIN ANKLE 08/08/2011 250.90 LOAN BETES MELLITUS TYPE 2 WITH COMPLICATION 08/08/2011 272.4 HYPE RLIPIDEMIA 08/08/2011 401.1 ESSE NTIAL HYPERTENSION BENIGN 08/08/2011 845.00 SPR AIN/STRAIN ANKLE 08/08/2011 TESSA MCKEON MD 250.9 0 DIABETES MELLITUS TYPE 2 WITH COMPLICATION 08/08/2011 TESSA MCKEON MD 272.4 HYPERLIPIDEMIA 08/08/2011 TESSA MCKEON MD 401.1 ESSENTIAL HYPERTENSION BENIGN 08/08/2011 TESSA MCKEON MD 845.0 0 SPRAIN/STRAIN ANKLE 08/08/2011 250.90 LOAN BETES MELLITUS TYPE 2 WITH COMPLICATION 08/08/2011 272.4 HYPE RLIPIDEMIA 08/08/2011 401.1 ESSE NTIAL HYPERTENSION BENIGN 08/08/2011 845.00 SPR AIN/STRAIN ANKLE 08/08/2011 250.90 LOAN BETES MELLITUS TYPE 2 WITH COMPLICATION 08/08/2011 272.4 HYPE RLIPIDEMIA 08/08/2011 401.1 ESSE NTIAL HYPERTENSION BENIGN 08/08/2011 845.00 SPR AIN/STRAIN ANKLE 08/08/2011 250.90 LOAN BETES MELLITUS TYPE 2 WITH COMPLICATION 08/08/2011 272.4 HYPE RLIPIDEMIA 08/08/2011 401.1 ESSE NTIAL HYPERTENSION BENIGN 08/08/2011 845.00 SPR AIN/STRAIN ANKLE 08/08/2011 NOA WALLIS, PATY Russell 250.90 DIABETES MELLITUS TYPE 2 WITH COMPLICATION 08/08/2011 PATY LATHAM MD 272.4 HYPERLIPIDEMIA 08/08/2011 NOA WALLIS, PATY Russell 401.1 ESSENTIAL HYPERTENSION BENIGN 08/08/2011 NOA WALLIS, PATY Russell 845.00 SPRAIN/STRAIN ANKLE 08/08/2011 250.90 LOAN BETES MELLITUS TYPE 2 WITH COMPLICATION 08/08/2011 272.4 HYPE RLIPIDEMIA 08/08/2011 401.1 ESSE NTIAL HYPERTENSION BENIGN 08/08/2011 845.00 SPR AIN/STRAIN ANKLE 08/08/2011 250.90 LOAN BETES MELLITUS TYPE 2 WITH COMPLICATION 08/08/2011 272.4 HYPE RLIPIDEMIA 08/08/2011 401.1 ESSE NTIAL HYPERTENSION BENIGN 08/08/2011 845.00 SPR AIN/STRAIN ANKLE 08/08/2011 250.90 LOAN BETES MELLITUS TYPE 2 WITH COMPLICATION 08/08/2011 272.4 HYPE RLIPIDEMIA 08/08/2011 401.1 ESSE NTIAL HYPERTENSION BENIGN 08/08/2011 845.00 SPR AIN/STRAIN ANKLE 08/08/2011 250.90 LOAN BETES MELLITUS TYPE 2 WITH COMPLICATION 08/08/2011 272.4 HYPE RLIPIDEMIA 08/08/2011 401.1 ESSE NTIAL HYPERTENSION BENIGN 08/08/2011 845.00 SPR AIN/STRAIN ANKLE 08/08/2011 250.90 LOAN BETES MELLITUS TYPE 2 WITH COMPLICATION 08/08/2011 272.4 HYPE RLIPIDEMIA 08/08/2011 401.1 ESSE NTIAL HYPERTENSION BENIGN 08/08/2011 845.00 SPR AIN/STRAIN ANKLE 08/08/2011 250.90 LOAN BETES MELLITUS TYPE 2 WITH COMPLICATION 08/08/2011 272.4 HYPE RLIPIDEMIA 08/08/2011 401.1 ESSE NTIAL HYPERTENSION BENIGN 08/08/2011 845.00 SPR AIN/STRAIN ANKLE 08/08/2011 PATY LATHAM MD 250.90 DIABETES [...] LATHAM MD 845.00 SPRAIN/STRAIN ANKLE 08/08/2011 SIMPSON DO NELI K 250.90 DIABETES MELLITUS TYPE 2 WITH COMPLICATION 08/08/2011 SIMPSON DO NELI K 272.4 HYPERLIPIDEMIA 08/08/2011 SIMPSON DO NELI K 401.1 ESSENTIAL HYPERTENSION BENIGN 08/08/2011 SIMPSON , NELI K 845.00 SPRAIN/STRAIN ANKLE 08/08/2011 TESSA MCKEON MD 250.9 0 DIABETES MELLITUS TYPE 2 WITH COMPLICATION 08/08/2011 TESSA MCKEON MD 272.4 HYPERLIPIDEMIA 08/08/2011 TESSA MCKEON MD 401.1 ESSENTIAL HYPERTENSION BENIGN 08/08/2011 TESSA MCKEON MD 845.0 0 SPRAIN/STRAIN ANKLE 08/08/2011 PATY LATHAM MD 250.90 DIABETES MELLITUS TYPE 2 WITH COMPLICATION 08/08/2011 PATY LATHAM MD 272.4 HYPERLIPIDEMIA 08/08/2011 PATY LATHAM MD 401.1 ESSENTIAL HYPERTENSION BENIGN 08/08/2011 PATY LATHAM MD 845.00 SPRAIN/STRAIN ANKLE 08/08/2011 SIMPSON DO NELI K 250.90 DIABETES MELLITUS TYPE 2 [...] NELI K 845.00 SPRAIN/STRAIN ANKLE 08/08/2011 MADL PATIENT COORDINATOR, TATYANA L 250 .90 DIABETES MELLITUS TYPE 2 WITH COMPLICATION 08/08/2011 MADL PATIENT COORDINATOR, TATYANA L 272 .4 HYPERLIPIDEMIA 08/08/2011 MADL PATIENT COORDINATOR, TATYANA L 401 .1 ESSENTIAL HYPERTENSION BENIGN 08/08/2011 MADL PATIENT COORDINATOR, TATYANA L 845 .00 SPRAIN/STRAIN ANKLE 08/08/2011 MADL PATIENT COORDINATOR, TATYANA L 250 .90 DIABETES MELLITUS TYPE 2 WITH COMPLICATION 08/08/2011 MADL PATIENT COORDINATOR, TATYANA L 272 .4 HYPERLIPIDEMIA 08/08/2011 MADL PATIENT COORDINATOR, TATYANA L 401 .1 ESSENTIAL HYPERTENSION BENIGN 08/08/2011 MADL PATIENT COORDINATOR, TATYANA L 845 .00 SPRAIN/STRAIN ANKLE 08/08/2011 MADL PATIENT COORDINATOR, TATYANA L 250 .90 DIABETES MELLITUS TYPE 2 WITH COMPLICATION 08/08/2011 MADL PATIENT COORDINATOR, TATYANA L 272 .4 HYPERLIPIDEMIA 08/08/2011 MADL PATIENT COORDINATOR, TATYANA L 401 .1 ESSENTIAL HYPERTENSION BENIGN 08/08/2011 MADL PATIENT COORDINATOR, TATYANA L 845 .00 SPRAIN/STRAIN ANKLE 08/08/2011 SIMPSON DO, NELI K 250.90 DIABETES MELLITUS TYPE 2 WITH COMPLICATION 08/08/2011 SIMPSON DO, NELI K 272.4 HYPERLIPIDEMIA 08/08/2011 SIMPSON DO, NELI K 401.1 ESSENTIAL HYPERTENSION BENIGN 08/08/2011 SIMPSON DO, NELI K 845.00 SPRAIN/STRAIN ANKLE 08/08/2011 [facility], [place] R 250.90 DIABETES MELLITUS TYPE 2 WITH COMPLICATION 08/08/2011 [facility], [place] R 272.4 HYPERLIPIDEMIA 08/08/2011 [facility], [place]ER[place] R 401.1 ESSENTIAL HYPERTENSION BENIGN 08/08/2011 [facility], [place] R 845.00 SPRAIN/STRAIN ANKLE 08/08/2011 [facility], [place] R 250.90 DIABETES MELLITUS TYPE 2 WITH COMPLICATION 08/08/2011 [facility], [place] R 272.4 HYPERLIPIDEMIA 08/08/2011 [facility], [place] R 401.1 ESSENTIAL HYPERTENSION BENIGN 08/08/2011 [facility], [place] R 845.00 SPRAIN/STRAIN ANKLE 08/08/2011 MADL PATIENT COORDINATOR, TATYANA L 250 .90 DIABETES MELLITUS TYPE 2 WITH COMPLICATION 08/08/2011 MADL PATIENT COORDINATOR, TATYANA L 272 .4 HYPERLIPIDEMIA 08/08/2011 MADL PATIENT COORDINATOR, TATYANA L 401 .1 ESSENTIAL HYPERTENSION BENIGN 08/08/2011 MADL PATIENT COORDINATOR, TATYANA L 845 .00 SPRAIN/STRAIN ANKLE 08/08/2011 SIMPSON DO, NELI K [...] NELI K 845.00 SPRAIN/STRAIN ANKLE 08/08/2011 MADL PATIENT COORDINATOR, TATYANA L 250 .90 DIABETES MELLITUS TYPE 2 WITH COMPLICATION 08/08/2011 MADL PATIENT COORDINATOR, TATYANA L 272 .4 HYPERLIPIDEMIA 08/08/2011 MADL PATIENT COORDINATOR, TATYANA L 401 .1 ESSENTIAL HYPERTENSION BENIGN 08/08/2011 MADL PATIENT COORDINATOR, TATYANA L 845 .00 SPRAIN/STRAIN ANKLE 08/08/2011 LUBA PATIENT COORDINATOR, JOSE S 250.90 DIABETES MELLITUS TYPE 2 WITH COMPLICATION 08/08/2011 [facility] PATIENT COORDINATOR, JOSE S 272.4 HYPERLIPIDEMIA 08/08/2011 LU[facility] PATIENT COORDINATOR, JOSE S 401.1 ESSENTIAL HYPERTENSION BENIGN 08/08/2011 LU[facility] PATIENT COORDINATOR, JOSE S 845.00 SPRAIN/STRAIN ANKLE 08/08/2011 MADL PATIENT COORDINATOR, TATYANA L 250 .90 DIABETES MELLITUS TYPE 2 WITH COMPLICATION 08/08/2011 MADL PATIENT COORDINATOR, TATYANA L 272 .4 HYPERLIPIDEMIA 08/08/2011 MADL PATIENT COORDINATOR, TATYANA L 401 .1 ESSENTIAL HYPERTENSION BENIGN 08/08/2011 MADL PATIENT COORDINATOR, TATYANA L 845 .00 SPRAIN/STRAIN ANKLE 08/08/2011 MADL PATIENT COORDINATOR, TATYANA L 250 .90 DIABETES MELLITUS TYPE 2 WITH COMPLICATION 08/08/2011 MADL PATIENT COORDINATOR, TATYANA L 272 .4 HYPERLIPIDEMIA 08/08/2011 MADL PATIENT COORDINATOR, TATYANA L 401 .1 ESSENTIAL HYPERTENSION BENIGN 08/08/2011 MADL PATIENT COORDINATOR, TATYANA L 845 .00 SPRAIN/STRAIN ANKLE 08/08/2011 MADL PATIENT COORDINATOR, TATYANA L 250 .90 DIABETES MELLITUS TYPE 2 WITH COMPLICATION 08/08/2011 MADL PATIENT COORDINATOR, TATYANA L 272 .4 HYPERLIPIDEMIA 08/08/2011 MADL PATIENT COORDINATOR, TATYANA L 401 .1 ESSENTIAL HYPERTENSION BENIGN 08/08/2011 MADL PATIENT COORDINATOR, TATYANA L 845 .00 SPRAIN/STRAIN ANKLE 08/08/2011 LUBA PATIENT COORDINATOR, JOSE S 250.90 DIABETES MELLITUS TYPE 2 WITH COMPLICATION 08/08/2011 [facility] PATIENT COORDINATOR, JOSE S 272.4 HYPERLIPIDEMIA 08/08/2011 [facility] PATIENT COORDINATOR, JOSE S 401.1 ESSENTIAL HYPERTENSION BENIGN 08/08/2011 LU[facility] PATIENT COORDINATOR, JOSE S 845.00 SPRAIN/STRAIN ANKLE 08/08/2011 MADL PATIENT COORDINATOR, TATYANA L 250 .90 DIABETES MELLITUS TYPE 2 WITH COMPLICATION 08/08/2011 MADL PATIENT COORDINATOR, TATYANA L 272 .4 HYPERLIPIDEMIA 08/08/2011 MADL PATIENT COORDINATOR, TATYANA L 401 .1 ESSENTIAL HYPERTENSION BENIGN 08/08/2011 MADL PATIENT COORDINATOR, TATYANA L 845 .00 SPRAIN/STRAIN ANKLE 08/08/2011 JUSTICE VARGAS MD 250.90 DIABETES MELLITUS TYPE 2 WITH COMPLICATION 08/08/2011 JUSTICE VARGAS MD 272.4 HYPERLIPIDEMIA 08/08/2011 JUSTICE VARGAS MD 401.1 ESSENTIAL HYPERTENSION BENIGN 08/08/2011 ALICIA WALLIS, JUSTICE 845.00 SPRAIN/STRAIN ANKLE 08/08/2011 TATYANA CHAPPELL APRN L 250 .90 DIABETES MELLITUS TYPE 2 WITH COMPLICATION 08/08/2011 TATYANA CHAPPELL APRN L 272 .4 HYPERLIPIDEMIA 08/08/2011 MISTI ISBELLNTATYANA L 401 .1 ESSENTIAL HYPERTENSION BENIGN 08/08/2011 TATYANA CHAPPELL APRN L 845 .00 SPRAIN/STRAIN ANKLE 08/14/2012 Ot 250.00 LOAN Rafy YAHAIRA WO COMPL, TYPE II OR UNSPEC TY 08/14/2012 Ot 272.4 HYPE RLIPIDEMIA NEC/NOS 08/14/2012 Ot 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 08/14/2012 Ot 338.29 OTH ER CHRONIC PAIN 08/14/2012 Ot 401.9 HYPE RTENSION NOS 08/14/2012 Ot 719.41 CHANELLE NT PAIN-SHLDER 08/14/2012 Ot 723.1 CERV ICALGIA 08/14/2012 Ot 794.31 ABN ORM ELECTROCARDIOGRAM 08/14/2012 Ot 966.3 POIS -ANTICONVUL NEC/NOS 08/14/2012 Ot E849.0 ACC IDENT IN HOME 08/14/2012 Ot E950.4 [place] [facility]- DRUG/MEDICIN NEC 08/14/2012 Ot V58.67 JS G-TERM (CURRENT) USE OF INSULIN 08/15/2012 JUDY MERCER APRN 72 3.9 CERVICAL NECK DISORDER NOS 08/15/2012 TESSA MCKEON MD 723.9 DISORDERS OF CERVICAL REGION 08/15/2012 PATY LATHAM MD 723.9 DISORDERS OF CERVICAL REGION 08/15/2012 TESSA MCKEON MD 723.9 DISORDERS OF CERVICAL REGION 08/15/2012 PATY LATHAM MD 723.9 DISORDERS OF CERVICAL REGION 08/15/2012 723.9 DISO RDERS OF CERVICAL REGION 08/15/2012 TESSA MCKEON MD 723.9 DISORDERS OF CERVICAL REGION 08/15/2012 723.9 DISO RDERS OF CERVICAL REGION 08/15/2012 723.9 DISO RDERS OF CERVICAL REGION 08/15/2012 723.9 DISO RDERS OF CERVICAL REGION 08/15/2012 PATY LATHAM MD 723.9 DISORDERS OF CERVICAL REGION 08/15/2012 723.9 DISO RDERS OF CERVICAL REGION 08/15/2012 723.9 DISO RDERS OF CERVICAL REGION 08/15/2012 723.9 DISO RDERS OF CERVICAL REGION 08/15/2012 723.9 DISO RDERS OF CERVICAL REGION 08/15/2012 723.9 DISO RDERS OF CERVICAL REGION 08/15/2012 723.9 DISO RDERS OF CERVICAL REGION 08/15/2012 NOA WALLIS, PATY Russell 723.9 DISORDERS OF CERVICAL REGION 08/15/2012 PATY LATHAM MD 723.9 DISORDERS OF CERVICAL REGION 08/15/2012 SIMPSON DO, NELI K 723.9 DISORDERS OF CERVICAL REGION 08/15/2012 TESSA MCKEON MD 723.9 DISORDERS OF CERVICAL REGION 08/15/2012 PATY LATHAM MD 723.9 DISORDERS OF CERVICAL REGION 08/15/2012 SIMPSON DO, NELI K 723.9 DISORDERS OF CERVICAL REGION 08/15/2012 SIMPSON DO, NELI K 723.9 DISORDERS OF CERVICAL REGION 08/15/2012 MADL PATIENT COORDINATOR, TATYANA L 723 .9 DISORDERS OF CERVICAL REGION 08/15/2012 MADL PATIENT COORDINATOR, TATYANA L 723 .9 DISORDERS OF CERVICAL REGION 08/15/2012 MADL PATIENT COORDINATOR, TATYANA L 723 .9 DISORDERS OF CERVICAL REGION 08/15/2012 SIMPSON DO, NELI K 723.9 DISORDERS OF CERVICAL REGION 08/15/[address] [facility], [place] R 723.9 DISORDERS OF CERVICAL REGION 08/15/2012 [facility], [place] R 723.9 DISORDERS OF CERVICAL REGION 08/15/2012 MADL PATIENT COORDINATOR, TATYANA L 723 .9 DISORDERS OF CERVICAL REGION 08/15/2012 SIMPSON DO, NELI K 723.9 DISORDERS OF CERVICAL REGION 08/15/2012 SIMPSON DO, NELI K 723.9 DISORDERS OF CERVICAL REGION 08/15/2012 MADL PATIENT COORDINATOR, TATYANA L 723 .9 DISORDERS OF CERVICAL REGION 08/15/2012 JOSE VERDUZCO APRN 723.9 DISORDERS OF CERVICAL REGION 08/15/2012 MADL PATIENT COORDINATOR, TATYANA L 723 .9 DISORDERS OF CERVICAL REGION 08/15/2012 MADL PATIENT COORDINATOR, TATYANA L 723 .9 DISORDERS OF CERVICAL REGION 08/15/2012 MADL PATIENT COORDINATOR, TATYANA L 723 .9 DISORDERS OF CERVICAL REGION 08/15/2012 [facility] PATIENT COORDINATOR, JOSE S 723.9 DISORDERS OF CERVICAL REGION 08/15/2012 MADGray PATIENT COORDINATOR, TATYANA L 723 .9 DISORDERS OF CERVICAL REGION 08/15/2012 JUSTICE VARGAS MD 723.9 DISORDERS OF CERVICAL REGION 08/15/2012 JOANL PATIENT COORDINATOR, TATYANA L 723 .9 DISORDERS OF CERVICAL REGION 09/05/2012 PATY LATHAM MD 786.05 shortness of breath 09/05/2012 TESSA MCKEON MD 786.0 5 shortness of breath 09/05/2012 PATY LATHAM MD 786.05 shortness of breath 09/05/2012 786.05 adrian rtness of breath 09/05/2012 TESSA MCKEON MD 786.0 5 shortness of breath 09/05/2012 786.05 adrian rtness of breath 09/05/2012 786.05 adrian rtness of breath 09/05/2012 786.05 adrian rtness of breath 09/05/2012 PATY LATHAM MD 786.05 shortness of breath 09/05/2012 786.05 adrian rtness of breath 09/05/2012 786.05 adrian rtness of breath 09/05/2012 786.05 adrian rtness of breath 09/05/2012 786.05 adrian rtness of breath 09/05/2012 786.05 adrian rtness of breath 09/05/2012 786.05 adrian rtness of breath 09/05/2012 PATY LATHAM MD 786.05 shortness of breath 09/05/2012 PATY LATHAM MD 786.05 shortness of breath 09/05/2012 TATIANA LAGUNA NELI K 786.05 shortness of breath 09/05/2012 TESSA MCKEON MD 786.0 5 shortness of breath 09/05/2012 PATY LATHAM MD 786.05 shortness of breath 09/05/2012 SIMPSON DO NELI K 786.05 shortness of breath 09/05/2012 SIMPSON DO NELI K 786.05 shortness of breath 09/05/2012 MADL PATIENT COORDINATOR, TATYANA L 786 .05 shortness of breath 09/05/2012 MADL PATIENT COORDINATOR, TATYANA L 786 .05 shortness of breath 09/05/2012 MADL PATIENT COORDINATOR, TATYANA L 786 .05 shortness of breath 09/05/2012 SIMPSON DO, NELI K 786.05 shortness of breath 09/05/2012 [facility], [place] R 786.05 shortness of breath 09/05/2012 [facility], [place] R 786.05 shortness of breath 09/05/2012 MADL PATIENT COORDINATOR, TATYANA L 786 .05 shortness of breath 09/05/2012 SIMPSON DO, NELI K 786.05 shortness of breath 09/05/2012 SIMPSON DO, NELI K 786.05 shortness of breath 09/05/2012 MADL PATIENT COORDINATOR, TATYANA L 786 .05 shortness of breath 09/05/2012 [facility] PATIENT COORDINATOR, JOSE S 786.05 shortness of breath 09/05/2012 MADL PATIENT COORDINATOR, TATYANA L 786 .05 shortness of breath 09/05/2012 MADL PATIENT COORDINATOR, TATYANA L 786 .05 shortness of breath 09/05/2012 MADL PATIENT COORDINATOR, TATYANA L 786 .05 shortness of breath 09/05/2012 [facility] PATIENT COORDINATOR, JOSE S 786.05 shortness of breath 09/05/2012 MADL PATIENT COORDINATOR, TATYANA L 786 .05 shortness of breath 09/05/2012 ALICIA WALLIS, JUSTICE 786.05 shortness of breath 09/05/2012 MADL PATIENT COORDINATOR, TATYANA L 786 .05 shortness of breath 10/21/2012 296.32 MO DEPRESSIVE RECURRENT MODERATE 10/21/2012 304.80 SA POLYSUB DEP 10/21/2012 TESSA MCKEON MD 296.3 2 MAJOR DEPRESSION RECURRENT MODERATE 10/21/2012 TESAS MCKEON MD 304.8 0 SA POLYSUB DEP 10/21/2012 296.32 ORESTES OR DEPRESSION RECURRENT MODERATE 10/21/2012 304.80 SA POLYSUB DEP 10/21/2012 296.32 ORESTES OR DEPRESSION RECURRENT MODERATE 10/21/2012 304.80 SA POLYSUB DEP 10/21/2012 296.32 ORESTES OR DEPRESSION RECURRENT MODERATE 10/21/2012 304.80 SA POLYSUB DEP 10/21/2012 PATY LATHAM MD 296.32 MAJOR DEPRESSION RECURRENT MODERATE 10/21/2012 PATY LATHAM MD 304.80 SA POLYSUB DEP 10/21/2012 296.32 ORESTES OR DEPRESSION RECURRENT MODERATE 10/21/2012 304.80 SA POLYSUB DEP 10/21/2012 296.32 ORESTES OR DEPRESSION RECURRENT MODERATE 10/21/2012 304.80 SA POLYSUB DEP 10/21/2012 296.32 ORESTES OR DEPRESSION RECURRENT MODERATE 10/21/2012 304.80 SA POLYSUB DEP 10/21/2012 296.32 ORESTES OR DEPRESSION RECURRENT MODERATE 10/21/2012 304.80 SA POLYSUB DEP 10/21/2012 296.32 ORESTES OR DEPRESSION RECURRENT MODERATE 10/21/2012 304.80 SA POLYSUB DEP 10/21/2012 296.32 ORESTES OR DEPRESSION RECURRENT MODERATE 10/21/2012 304.80 SA POLYSUB DEP 10/21/2012 PATY LATHAM MD 296.32 MAJOR DEPRESSION RECURRENT MODERATE 10/21/2012 PATY LATHAM MD 304.80 SA POLYSUB DEP 10/21/2012 PATY LATHAM MD 296.32 MAJOR DEPRESSION RECURRENT MODERATE 10/21/2012 PATY LATHAM MD 304.80 SA POLYSUB DEP 10/21/2012 SIMPSON PETER LAGUNAA K 296.32 MAJOR DEPRESSION RECURRENT MODERATE 10/21/2012 SIMPSON DO NELI K 304.80 SA POLYSUB DEP 10/21/2012 TESSA MCKEON MD 296.3 2 MAJOR DEPRESSION RECURRENT MODERATE 10/21/2012 TESSA MCKEON MD 304.8 0 SA POLYSUB DEP 10/21/2012 PATY LATHAM MD 296.32 MAJOR DEPRESSION RECURRENT MODERATE 10/21/2012 PATY LATHAM MD 304.80 SA POLYSUB DEP 10/21/2012 SIMPSON DO NELI K 296.32 MAJOR DEPRESSION RECURRENT MODERATE 10/21/2012 SIMPSON DO NELI K 304.80 SA POLYSUB DEP 10/21/2012 SIMPSON DO NELI K 296.32 MAJOR DEPRESSION RECURRENT MODERATE 10/21/2012 SIMPSON DO NELI K 304.80 SA POLYSUB DEP 10/21/2012 MADL PATIENT COORDINATOR, TATYANA L 296 .32 MAJOR DEPRESSION RECURRENT MODERATE 10/21/2012 MADL PATIENT COORDINATOR, TATYANA L 304 .80 SA POLYSUB DEP 10/21/2012 MADL PATIENT COORDINATOR, TATYANA L 296 .32 MAJOR DEPRESSION RECURRENT MODERATE 10/21/2012 MADL PATIENT COORDINATOR, TATYANA L 304 .80 SA POLYSUB DEP 10/21/2012 MADL PATIENT COORDINATOR, TATYANA L 296 .32 MAJOR DEPRESSION RECURRENT MODERATE 10/21/2012 MADL PATIENT COORDINATOR, TATYANA L 304 .80 SA POLYSUB DEP 10/21/2012 SIMPSON DO NELI K 296.32 MAJOR DEPRESSION RECURRENT MODERATE 10/21/2012 SIMPSON DO, NELI K 304.80 SA POLYSUB DEP 10/21/2012 [facility], [place] R 296.32 MAJOR DEPRESSION RECURRENT MODERATE 10/21/2012 [facility], [place] R 304.80 SA POLYSUB DEP 10/21/2012 [facility], [place] R 296.32 MAJOR DEPRESSION RECURRENT MODERATE 10/21/2012 [facility], [place] R 304.80 SA POLYSUB DEP 10/21/2012 MADL PATIENT COORDINATOR, TATYANA L 296 .32 MAJOR DEPRESSION RECURRENT MODERATE 10/21/2012 MADL PATIENT COORDINATOR, TATYANA L 304 .80 SA POLYSUB DEP 10/21/2012 SIMPSON DO, NELI K 296.32 MAJOR DEPRESSION RECURRENT MODERATE 10/21/2012 SIMPSON DO, NELI K 304.80 SA POLYSUB DEP 10/21/2012 SIMPSON DO, NELI K 296.32 MAJOR DEPRESSION RECURRENT MODERATE 10/21/2012 SIMPSON DO, NELI K 304.80 SA POLYSUB DEP 10/21/2012 MADL PATIENT COORDINATOR, TATYANA L 296 .32 MAJOR DEPRESSION RECURRENT MODERATE 10/21/2012 MADL PATIENT COORDINATOR, TATYANA L 304 .80 SA POLYSUB DEP 10/21/2012 LUBA PATIENT COORDINATOR, JOSE S 296.32 MAJOR DEPRESSION RECURRENT MODERATE 10/21/2012 LUBA PATIENT COORDINATOR, JOSE S 304.80 SA POLYSUB DEP 10/21/2012 MADL PATIENT COORDINATOR, TATYANA L 296 .32 MAJOR DEPRESSION RECURRENT MODERATE 10/21/2012 MADL PATIENT COORDINATOR, TATYANA L 304 .80 SA POLYSUB DEP 10/21/2012 MADL PATIENT COORDINATOR, TATYANA L 296 .32 MAJOR DEPRESSION RECURRENT MODERATE 10/21/2012 MADL PATIENT COORDINATOR, TATYANA L 304 .80 SA POLYSUB DEP 10/21/2012 MADL PATIENT COORDINATOR, TATYANA L 296 .32 MAJOR DEPRESSION RECURRENT MODERATE 10/21/2012 MADL PATIENT COORDINATOR, TATYANA L 304 .80 SA POLYSUB DEP 10/21/2012 LUBA PATIENT COORDINATOR, JOSE S 296.32 MAJOR DEPRESSION RECURRENT MODERATE 10/21/2012 LUBA PATIENT COORDINATOR, JOSE S 304.80 SA POLYSUB DEP 10/21/2012 MADL PATIENT COORDINATOR, TATYANA L 296 .32 MAJOR DEPRESSION RECURRENT MODERATE 10/21/2012 MADL PATIENT COORDINATOR, TATYANA L 304 .80 SA POLYSUB DEP 10/21/2012 ALICIA WALLIS, JUSTICE 296.32 MAJOR DEPRESSION RECURRENT MODERATE 10/21/2012 JUSTICE VARGAS MD 304.80 SA POLYSUB DEP 10/21/2012 MADL PATIENT COORDINATOR, TATYANA L 296 .32 MAJOR DEPRESSION RECURRENT MODERATE 10/21/2012 MADL PATIENT COORDINATOR, TATYANA L 304 .80 SA POLYSUB DEP 10/28/2012 TESSA MCKEON MD 288.6 0 LEUKOCYTOSIS 10/28/2012 288.60 WARREN KOCYTOSIS 10/28/2012 288.60 WARREN KOCYTOSIS 10/28/2012 288.60 WARREN KOCYTOSIS 10/28/2012 PATY LATHAM MD 288.60 LEUKOCYTOSIS 10/28/2012 288.60 WARREN KOCYTOSIS 10/28/2012 288.60 WARREN KOCYTOSIS 10/28/2012 288.60 WARREN KOCYTOSIS 10/28/2012 288.60 WARREN KOCYTOSIS 10/28/2012 288.60 WARREN KOCYTOSIS 10/28/2012 288.60 WARREN KOCYTOSIS 10/28/2012 PATY LATAHM MD 288.60 LEUKOCYTOSIS 10/28/2012 PATY LATHAM MD 288.60 LEUKOCYTOSIS 10/28/2012 SIMPSON DONELI K 288.60 LEUKOCYTOSIS 10/28/2012 TESSA MCKEON MD 288.6 0 LEUKOCYTOSIS 10/28/2012 PATY LATHAM MD 288.60 LEUKOCYTOSIS 10/28/2012 SIMPSON DOPETERA K 288.60 LEUKOCYTOSIS 10/28/2012 SIMPSON DO NELI K 288.60 LEUKOCYTOSIS 10/28/2012 MAD PATIENT COORDINATOR, TATYANA L 288 .60 LEUKOCYTOSIS 10/28/2012 MADL PATIENT COORDINATOR, TATYANA L 288 .60 LEUKOCYTOSIS 10/28/2012 MADL PATIENT COORDINATOR, TATYANA L 288 .60 LEUKOCYTOSIS 10/28/2012 SIMPSON DO, NELI K 288.60 LEUKOCYTOSIS 10/28/2012 [facility], FERNANDA R 288.60 LEUKOCYTOSIS 10/28/2012 [facility], FERNANDA R 288.60 LEUKOCYTOSIS 10/28/2012 MADL PATIENT COORDINATOR, TATYANA L 288 .60 LEUKOCYTOSIS 10/28/2012 SIMPSON DO, NELI K 288.60 LEUKOCYTOSIS 10/28/2012 SIMPSON DO, NELI K 288.60 LEUKOCYTOSIS 10/28/2012 MADL PATIENT COORDINATOR, TATYANA L 288 .60 LEUKOCYTOSIS 10/28/2012 LUBA PATIENT COORDINATOR, JOSE S 288.60 LEUKOCYTOSIS 10/28/2012 MADL PATIENT COORDINATOR, TATYANA L 288 .60 LEUKOCYTOSIS 10/28/2012 MADL PATIENT COORDINATOR, TATYANA L 288 .60 LEUKOCYTOSIS 10/28/2012 MADL PATIENT COORDINATOR, TATYANA L 288 .60 LEUKOCYTOSIS 10/28/2012 LUBA PATIENT COORDINATOR, JOSE S 288.60 LEUKOCYTOSIS 10/28/2012 MADL PATIENT COORDINATOR, TATYANA L 288 .60 LEUKOCYTOSIS 10/28/2012 JUSTICE VARGAS MD 288.60 LEUKOCYTOSIS 10/28/2012 MADL PATIENT COORDINATOR, TATYANA L 288 .60 LEUKOCYTOSIS 12/01/2012 PATY LATHAM MD 466.0 ACUTE BRONCHITIS 12/01/2012 466.0 ACUT E BRONCHITIS 12/01/2012 466.0 ACUT E BRONCHITIS 12/01/2012 466.0 ACUT E BRONCHITIS 12/01/2012 466.0 ACUT E BRONCHITIS 12/01/2012 466.0 ACUT E BRONCHITIS 12/01/2012 466.0 ACUT E BRONCHITIS 12/01/2012 PATY LATHAM MD 466.0 ACUTE BRONCHITIS 12/01/2012 PATY LATHAM MD 466.0 ACUTE BRONCHITIS 12/01/2012 NELI SIMPSON DO 466.0 ACUTE BRONCHITIS 12/01/2012 TESSA MCKEON MD 466.0 ACUTE BRONCHITIS 12/01/2012 PATY LATHAM MD 466.0 ACUTE BRONCHITIS 12/01/2012 SIMPSON DO, NELI K 466.0 ACUTE BRONCHITIS 12/01/2012 SIMPSON DO, NELI K 466.0 ACUTE BRONCHITIS 12/01/2012 MADL PATIENT COORDINATOR, TATYANA L 466 .0 ACUTE BRONCHITIS 12/01/2012 MADL PATIENT COORDINATOR, TATYANA L 466 .0 ACUTE BRONCHITIS 12/01/2012 MADL PATIENT COORDINATOR, TATYANA L 466 .0 ACUTE BRONCHITIS 12/01/2012 SIMPSON DO, NELI K 466.0 ACUTE BRONCHITIS 12/01/2012 [facility], [place] R 466.0 ACUTE BRONCHITIS 12/01/2012 [facility], [place] 466.0 ACUTE BRONCHITIS 12/01/2012 MADL PATIENT COORDINATOR, TATYANA L 466 .0 ACUTE BRONCHITIS 12/01/2012 SIMPSON DO, NELI K 466.0 ACUTE BRONCHITIS 12/01/2012 SIMPSON DO, NELI K 466.0 ACUTE BRONCHITIS 12/01/2012 MADL PATIENT COORDINATOR, TATYANA L 466 .0 ACUTE BRONCHITIS 12/01/2012 LUBA PATIENT COORDINATOR, JOSE S 466.0 ACUTE BRONCHITIS 12/01/2012 MADL PATIENT COORDINATOR, TATYANA L 466 .0 ACUTE BRONCHITIS 12/01/2012 MADL PATIENT COORDINATOR, TATYANA L 466 .0 ACUTE BRONCHITIS 12/01/2012 MADL PATIENT COORDINATOR, TATYANA L 466 .0 ACUTE BRONCHITIS 12/01/2012 LUBA PATIENT COORDINATOR, JOSE S 466.0 ACUTE BRONCHITIS 12/01/2012 MADL PATIENT COORDINATOR, TATYANA L 466 .0 ACUTE BRONCHITIS 12/01/2012 ALICIA WALLIS, JUSTICE 466.0 ACUTE BRONCHITIS 12/01/2012 MADL PATIENT COORDINATOR, TATYANA L 466 .0 ACUTE BRONCHITIS 02/04/2013 NOA WALLIS, PATY Russell Ot 722.0 CERVICAL DISC DISPLACMNT 02/26/2013 780.50 UNS PECIFIED SLEEP DISTURBANCE 02/26/[address] BITE NONVENOMOUS OF OTHER MULTIPLE AND UNSPECIFIED SITES WITHOUT INFECTION 02/26/2013 780.50 UNS PECIFIED SLEEP DISTURBANCE 02/26/[address] BITE NONVENOMOUS OF OTHER MULTIPLE AND UNSPECIFIED SITES WITHOUT INFECTION 02/26/2013 780.50 UNS PECIFIED SLEEP DISTURBANCE 02/26/[address] BITE NONVENOMOUS OF OTHER MULTIPLE AND UNSPECIFIED SITES WITHOUT INFECTION 02/26/2013 780.50 UNS PECIFIED SLEEP DISTURBANCE 02/26/[address] BITE NONVENOMOUS OF OTHER MULTIPLE AND UNSPECIFIED SITES WITHOUT INFECTION 02/26/2013 PATY LATHAM MD 780.50 UNSPECIFIED SLEEP DISTURBANCE 02/26/2013 PATY LATHAM MD 919.4 INSECT BITE NONVENOMOUS OF OTHER MULTIPL E AND UNSPECIFIED SITES WITHOUT INFECTION 02/26/2013 PATY LATHAM MD 780.50 UNSPECIFIED SLEEP DISTURBANCE 02/26/2013 PATY LATHAM MD 919.4 INSECT BITE NONVENOMOUS OF OTHER MULTIPL E AND UNSPECIFIED SITES WITHOUT INFECTION 02/26/2013 SIMPSON DO NELI K 780.50 UNSPECIFIED SLEEP DISTURBANCE 02/26/2013 SIMPSON DO, NELI K 919.4 INSECT BITE NONVENOMOUS OF OTHER MULTIPLE AND UNSPECIFIED SITES WITHOUT INFECTION 02/26/2013 TESSA MCKEON MD 780.5 0 UNSPECIFIED SLEEP DISTURBANCE 02/26/2013 TESSA MCKEON MD 919.4 INSECT BITE NONVENOMOUS OF OTHER MULTIPLE AND UNSPECIFIED SITES WITHOUT INFECTION 02/26/2013 PATY LATHAM MD 780.50 UNSPECIFIED SLEEP DISTURBANCE 02/26/2013 PATY LATHAM MD 919.4 INSECT BITE NONVENOMOUS OF OTHER MULTIPL E AND UNSPECIFIED SITES WITHOUT INFECTION 02/26/2013 SIMPSON DO, NELI K 780.50 UNSPECIFIED SLEEP DISTURBANCE 02/26/2013 SIMPSON DO, NELI K 919.4 INSECT BITE NONVENOMOUS OF OTHER MULTIPLE AND UNSPECIFIED SITES WITHOUT INFECTION 02/26/2013 SIMPSON DO, NELI K 780.50 UNSPECIFIED SLEEP DISTURBANCE 02/26/2013 SIMPSON DO, NELI K 919.4 INSECT BITE NONVENOMOUS OF OTHER MULTIPLE AND UNSPECIFIED SITES WITHOUT INFECTION 02/26/2013 MADL PATIENT COORDINATOR, TATYANA L 780 .50 UNSPECIFIED SLEEP DISTURBANCE 02/26/2013 MADL PATIENT COORDINATOR, TATYANA L 919 .4 INSECT BITE NONVENOMOUS OF OTHER MULTIPLE AND UNSPECIFIED SITES WITHOUT INFECTION 02/26/2013 MADL PATIENT COORDINATOR, TATYANA L 780 .50 UNSPECIFIED SLEEP DISTURBANCE 02/26/2013 MADL PATIENT COORDINATOR, TATYANA L 919 .4 INSECT BITE NONVENOMOUS OF OTHER MULTIPLE AND UNSPECIFIED SITES WITHOUT INFECTION 02/26/2013 MADL PATIENT COORDINATOR, TATYANA L 780 .50 UNSPECIFIED SLEEP DISTURBANCE 02/26/2013 MADL PATIENT COORDINATOR, TATYANA L 919 .4 INSECT BITE NONVENOMOUS OF OTHER MULTIPLE AND UNSPECIFIED SITES WITHOUT INFECTION 02/26/2013 SIMPSON DO, NELI K 780.50 UNSPECIFIED SLEEP DISTURBANCE 02/26/2013 SIMPSON DO, NELI K 919.4 INSECT BITE NONVENOMOUS OF OTHER MULTIPLE AND UNSPECIFIED SITES WITHOUT INFECTION 02/26/2013 [facility], [place] 780.50 UNSPECIFIED SLEEP DISTURBANCE 02/26/2013 [facility], [place] 919.4 INSECT BITE NONVENOMOUS OF OTHER MULTIPL E AND UNSPECIFIED SITES WITHOUT INFECTION 02/26/2013 [facility], [place] 780.50 UNSPECIFIED SLEEP DISTURBANCE 02/26/2013 [facility], [place] 919.4 INSECT BITE NONVENOMOUS OF OTHER MULTIPL E AND UNSPECIFIED SITES WITHOUT INFECTION 02/26/2013 MADL PATIENT COORDINATOR, TATYANA L 780 .50 UNSPECIFIED SLEEP DISTURBANCE 02/26/2013 MADL PATIENT COORDINATOR, TATYANA L 919 .4 INSECT BITE NONVENOMOUS OF OTHER MULTIPLE AND [...] AND UNSPECIFIED SITES WITHOUT INFECTION 02/26/2013 MADL PATIENT COORDINATOR, TATYANA L 780 .50 UNSPECIFIED SLEEP DISTURBANCE 02/26/2013 MADL PATIENT COORDINATOR, TATYANA L 919 .4 INSECT BITE NONVENOMOUS OF OTHER MULTIPLE AND UNSPECIFIED SITES WITHOUT INFECTION 02/26/2013 LUBA PATIENT COORDINATOR, JOSE S 780.50 UNSPECIFIED SLEEP DISTURBANCE 02/26/2013 LUBA PATIENT COORDINATOR, JOSE S 919.4 INSECT BITE NONVENOMOUS OF OTHER MULTIPL E AND UNSPECIFIED SITES WITHOUT INFECTION 02/26/2013 MADL PATIENT COORDINATOR, TATYANA L 780 .50 UNSPECIFIED SLEEP DISTURBANCE 02/26/2013 MADL PATIENT COORDINATOR, TATYANA L 919 .4 INSECT BITE NONVENOMOUS OF OTHER MULTIPLE AND UNSPECIFIED SITES WITHOUT INFECTION 02/26/2013 MADL PATIENT COORDINATOR, TATYANA L 780 .50 UNSPECIFIED SLEEP DISTURBANCE 02/26/2013 MADL PATIENT COORDINATOR, TATYANA L 919 .4 INSECT BITE NONVENOMOUS OF OTHER MULTIPLE AND UNSPECIFIED SITES WITHOUT INFECTION 02/26/2013 MADL PATIENT COORDINATOR, TATYANA L 780 .50 UNSPECIFIED SLEEP DISTURBANCE 02/26/2013 MADL PATIENT COORDINATOR, TATYANA L 919 .4 INSECT BITE NONVENOMOUS OF OTHER MULTIPLE AND UNSPECIFIED SITES WITHOUT INFECTION 02/26/2013 LUBA PATIENT COORDINATOR, JOSE S 780.50 UNSPECIFIED SLEEP DISTURBANCE 02/26/2013 LUBA PATIENT COORDINATOR, JOSE S 919.4 INSECT BITE NONVENOMOUS OF OTHER MULTIPL E AND UNSPECIFIED SITES WITHOUT INFECTION 02/26/2013 MADL PATIENT COORDINATOR, TATYANA L 780 .50 UNSPECIFIED SLEEP DISTURBANCE 02/26/2013 MADL PATIENT COORDINATOR, TATYANA L 919 .4 INSECT BITE NONVENOMOUS OF OTHER MULTIPLE AND UNSPECIFIED SITES WITHOUT INFECTION 02/26/2013 JUSTICE VARGAS MD 780.50 UNSPECIFIED SLEEP DISTURBANCE 02/26/2013 JUSTICE VARGAS MD 919.4 INSECT BITE NONVENOMOUS OF OTHER MULTIPLE AND UNSPECIFIED SITES WITHOUT INFECTION 02/26/2013 MADL PATIENT COORDINATOR, TATYANA L 780 .50 UNSPECIFIED SLEEP DISTURBANCE 02/26/2013 MADL PATIENT COORDINATOR, TATYANA L 919 .4 INSECT BITE NONVENOMOUS OF OTHER MULTIPLE AND UNSPECIFIED SITES WITHOUT INFECTION 02/26/2013 JULIET MACE DO Ot 292.0 DRUG WITHDRAWAL 02/26/2013 JULIET MACE DO Ot 782.0 SKIN SENSATION DISTURB 02/26/2013 RONA ENRIQUE MD Ot 729 .5 PAIN IN LIMB 02/26/2013 RONA ENRIQUE MD Ot 781 .0 ABN INVOLUN MOVEMENT NEC 02/26/2013 RONA ENRIQUE MD Ot V15.81 HX OF PAST NONCOMPLIANCE 02/26/2013 RONA ENRIQUE MD Ot V58.69 OTH MED,LT,CURRENT USE 03/31/2013 719.47 ANA N IN JOINT INVOLVING ANKLE AND FOOT 03/31/2013 719.47 ANA N IN JOINT INVOLVING ANKLE AND FOOT 03/31/2013 719.47 ANA N IN JOINT INVOLVING ANKLE AND FOOT 03/31/2013 PATY LATHAM MD 719.47 PAIN IN JOINT INVOLVING ANKLE AND FOOT 03/31/2013 PATY LATHAM MD 719.47 PAIN IN JOINT INVOLVING ANKLE AND FOOT 03/31/2013 NELI SIMPSON DO 719.47 PAIN IN JOINT INVOLVING ANKLE AND FOOT 03/31/2013 TESSA MCKEON MD 719.4 7 PAIN IN JOINT INVOLVING ANKLE AND FOOT 03/31/2013 PATY LATHAM MD 719.47 PAIN IN JOINT INVOLVING ANKLE AND FOOT 03/31/2013 NELI SIMPSON DO 719.47 PAIN IN JOINT INVOLVING ANKLE AND FOOT 03/31/2013 NELI SIMPSON DO 719.47 PAIN IN JOINT INVOLVING ANKLE AND FOOT 03/31/2013 MAX CHAPPELL APRNA L 719 .47 PAIN IN JOINT INVOLVING ANKLE AND FOOT 03/31/2013 MISTI MINER TATYANA L 719 .47 PAIN IN JOINT INVOLVING ANKLE AND FOOT 03/31/2013 MISTI MINER TATYANA L 719 .47 PAIN IN JOINT INVOLVING ANKLE AND FOOT 03/31/2013 NELI SIMPSON DO K 719.47 PAIN IN JOINT INVOLVING ANKLE AND FOOT 03/31/[address] [facility] IN JOINT INVOLVING ANKLE AND FOOT 03/31/[address] [facility] 719.47 PAIN IN JOINT INVOLVING ANKLE AND FOOT 03/31/2013 MISTI MINER TATYANA L 719 .47 PAIN IN JOINT INVOLVING ANKLE AND FOOT 03/31/2013 TATIANA DO NELI K 719.47 PAIN IN JOINT INVOLVING ANKLE AND FOOT 03/31/2013 SIMPSON DO NELI K 719.47 PAIN IN JOINT INVOLVING ANKLE AND FOOT 03/31/2013 MADGray PATIENT COORDINATOR TATYANA L 719 .47 PAIN IN JOINT INVOLVING ANKLE AND FOOT 03/31/2013 CHAGO VERDUZCO APRNA Jessica 719.47 PAIN IN JOINT INVOLVING ANKLE AND FOOT 03/31/2013 MADGray MINER TATYANA L 719 .47 PAIN IN JOINT INVOLVING ANKLE AND FOOT 03/31/2013 JOANL PATIENT COORDINATORMAXA L 719 .47 PAIN IN JOINT INVOLVING ANKLE AND FOOT 03/31/2013 MADL PATIENT COORDINATOR, TATYANA L 719 .47 PAIN IN JOINT INVOLVING ANKLE AND FOOT 03/31/2013 JOSE VERDUZCO APRN 719.47 PAIN IN JOINT INVOLVING ANKLE AND FOOT 03/31/2013 MISTI PATIENT COORDINATORTATYANA Dunn L 719 .47 PAIN IN JOINT INVOLVING ANKLE AND FOOT 03/31/2013 JUSTICE VARGAS MD 719.47 PAIN IN JOINT INVOLVING ANKLE AND FOOT 03/31/2013 MADL PATIENT COORDINATORTATYANA Dunn L 719 .47 PAIN IN JOINT INVOLVING ANKLE AND FOOT 04/01/2013 799.02 HYP OXEMIA 04/01/2013 799.02 HYP OXEMIA 04/01/2013 PATY LATHAM MD 799.02 HYPOXEMIA 04/01/2013 PATY LATHAM MD 799.02 HYPOXEMIA 04/01/2013 SIMPSON DO, NELI K 799.02 HYPOXEMIA 04/01/2013 TESSA MCKEON MD 799.0 2 HYPOXEMIA 04/01/2013 PATY LATHAM MD 799.02 HYPOXEMIA 04/01/2013 SIMPSON DO, NELI K 799.02 HYPOXEMIA 04/01/2013 SIMPSON DO, NELI K 799.02 HYPOXEMIA 04/01/2013 MADL PATIENT COORDINATOR, TATYANA L 799 .02 HYPOXEMIA 04/01/2013 MADL PATIENT COORDINATOR, TATYANA L 799 .02 HYPOXEMIA 04/01/2013 MADL PATIENT COORDINATOR, TATYANA L 799 .02 HYPOXEMIA 04/01/2013 SIMPSON DO, NELI K 799.02 HYPOXEMIA 04/01/2013 [facility], [place] R 799.02 HYPOXEMIA 04/01/2013 [facility], [place] 799.02 HYPOXEMIA 04/01/2013 MADL PATIENT COORDINATOR, TATYANA L 799 .02 HYPOXEMIA 04/01/2013 SIMPSON DO, NELI K 799.02 HYPOXEMIA 04/01/2013 SIMPSON DO, NELI K 799.02 HYPOXEMIA 04/01/2013 MADL PATIENT COORDINATOR, TATYANA L 799 .02 HYPOXEMIA 04/01/2013 JOSE VERDUZCO APRN S 799.02 HYPOXEMIA 04/01/2013 MADL PATIENT COORDINATOR, TATYANA L 799 .02 HYPOXEMIA 04/01/2013 MADL PATIENT COORDINATOR, TATYANA L 799 .02 HYPOXEMIA 04/01/2013 MADL PATIENT COORDINATOR, TATYANA L 799 .02 HYPOXEMIA 04/01/2013 LUBA PATIENT COORDINATOR, JOSE S 799.02 HYPOXEMIA 04/01/2013 MADL PATIENT COORDINATOR, TATYANA L 799 .02 HYPOXEMIA 04/01/2013 JUSTICE VARGAS MD 799.02 HYPOXEMIA 04/01/2013 MADL PATIENT COORDINATOR, TATYANA L 799 .02 HYPOXEMIA 04/02/2013 NOA WALLIS, PATY Russell Ot 327.23 OBSTRUCTIVE SLEEP APNEA (ADULT) (PEDIATR 04/04/2013 MIKE WALLIS, TESSA Zhang Ot 250.00 DIAB YAHAIRA WO COMPL, TYPE II OR UNSPEC TY 04/04/2013 TESSA MCKEON MD Ot 288.60 LEUKOCYTOSIS, UNSPECIFIED 04/04/2013 TESSA MCKEON MD Ot 305 .1 TOBACCO USE DISORDER 04/04/2013 TESSA MCKEON MD [...] LATHAM MD Ot 414.01 CORONARY ATHEROSCLEROSIS OF [place] CORON 06/04/2013 PATY LATHAM MD Ot 425.4 [...] OF INSULIN 06/04/2013 PATY LATHAM MD Ot V58.69 OTH MED,LT,CURRENT USE 06/07/2013 JULIET MACE DO Ot 558.9 NONINF GASTROENTERIT NEC 06/07/2013 JULIET MACE DO Ot 789.00 ABDOMINAL PAIN, UNSPECIFIED SITE 06/09/2013 PATY LATHAM MD 333.94 RESTLESS LEGS SYNDROME 06/09/2013 PATY LATHAM MD 536.8 GASTROPATHY HYPERSECRETORY 06/09/2013 PATY LATHAM MD 333.94 RESTLESS LEGS SYNDROME 06/09/2013 PATY LATHAM MD 536.8 GASTROPATHY HYPERSECRETORY 06/09/2013 NELI SIMPSON DO 333.94 RESTLESS LEGS SYNDROME 06/09/2013 NELI SIMPSON DO 536.8 GASTROPATHY HYPERSECRETORY 06/09/2013 TESSA MCKEON MD 333.9 4 RESTLESS LEGS SYNDROME 06/09/2013 MIKE WALLIS, TESSA 536.8 GASTROPATHY HYPERSECRETORY 06/09/2013 NOA WALLIS, PATY Russell 333.94 RESTLESS LEGS SYNDROME 06/09/2013 NOA WALLIS, PATY Russell 536.8 GASTROPATHY HYPERSECRETORY 06/09/2013 SIMPSON DO, NELI K 333.94 RESTLESS LEGS SYNDROME 06/09/2013 SIMPSON DO, NELI K 536.8 GASTROPATHY HYPERSECRETORY 06/09/2013 SIMPSON DO, NELI K 333.94 RESTLESS LEGS SYNDROME 06/09/2013 SIMPSON DO, NELI K 536.8 GASTROPATHY HYPERSECRETORY 06/09/2013 MADL PATIENT COORDINATOR, TATYANA L 333 .94 RESTLESS LEGS SYNDROME 06/09/2013 MADL PATIENT COORDINATOR, TATYANA L 536 .8 GASTROPATHY HYPERSECRETORY 06/09/2013 MADL PATIENT COORDINATOR, TATYANA L 333 .94 RESTLESS LEGS SYNDROME 06/09/2013 MADL PATIENT COORDINATOR, TATYANA L 536 .8 GASTROPATHY HYPERSECRETORY 06/09/2013 MADL PATIENT COORDINATOR, TATYANA L 333 .94 RESTLESS LEGS SYNDROME 06/09/2013 MADL PATIENT COORDINATOR, TATYANA L 536 .8 GASTROPATHY HYPERSECRETORY 06/09/2013 SIMPSON DO, NELI K 333.94 RESTLESS LEGS SYNDROME 06/09/2013 SIMPSON DO, NELI K 536.8 GASTROPATHY HYPERSECRETORY 06/09/2013 [facility], [place] R 333.94 RESTLESS LEGS SYNDROME 06/09/2013 [facility], [place] 536.8 GASTROPATHY HYPERSECRETORY 06/09/2013 [facility], [place] 333.94 RESTLESS LEGS SYNDROME 06/09/2013 [facility], [place] 536.8 GASTROPATHY HYPERSECRETORY 06/09/2013 MADL PATIENT COORDINATOR, TATYANA L 333 .94 RESTLESS LEGS SYNDROME 06/09/2013 MADL PATIENT COORDINATOR, TATYANA L 536 .8 GASTROPATHY HYPERSECRETORY 06/09/2013 SIMPSON DO, NELI K 333.94 RESTLESS LEGS SYNDROME 06/09/2013 SIMPSON DO, NELI K 536.8 GASTROPATHY HYPERSECRETORY 06/09/2013 SIMPSON DO, NELI K 333.94 RESTLESS LEGS SYNDROME 06/09/2013 SIMPSON DO, NELI K 536.8 GASTROPATHY HYPERSECRETORY 06/09/2013 MADL PATIENT COORDINATOR, TATYANA L 333 .94 RESTLESS LEGS SYNDROME 06/09/2013 MADL PATIENT COORDINATOR, TATYANA L 536 .8 GASTROPATHY HYPERSECRETORY 06/09/2013 LUBA PATIENT COORDINATOR, JOSE S 333.94 RESTLESS LEGS SYNDROME 06/09/2013 LUBA PATIENT COORDINATOR, JOSE S 536.8 GASTROPATHY HYPERSECRETORY 06/09/2013 MADL PATIENT COORDINATOR, TATYANA L 333 .94 RESTLESS LEGS SYNDROME 06/09/2013 MADL PATIENT COORDINATOR, TATYANA L 536 .8 GASTROPATHY HYPERSECRETORY 06/09/2013 MADL PATIENT COORDINATOR, TATYANA L 333 .94 RESTLESS LEGS SYNDROME 06/09/2013 MADL PATIENT COORDINATOR, TATYANA L 536 .8 GASTROPATHY HYPERSECRETORY 06/09/2013 MADL PATIENT COORDINATOR, TATYANA L 333 .94 RESTLESS LEGS SYNDROME 06/09/2013 MADL PATIENT COORDINATOR, TATYANA L 536 .8 GASTROPATHY HYPERSECRETORY 06/09/2013 LUBA PATIENT COORDINATOR, JOSE S 333.94 RESTLESS LEGS SYNDROME 06/09/2013 LUBA PATIENT COORDINATOR, JOSE S 536.8 GASTROPATHY HYPERSECRETORY 06/09/2013 MADL PATIENT COORDINATOR, TATYANA L 333 .94 RESTLESS LEGS SYNDROME 06/09/2013 MADL PATIENT COORDINATOR, TATYANA L 536 .8 GASTROPATHY HYPERSECRETORY 06/09/2013 JUSTICE VARGAS MD 333.94 RESTLESS LEGS SYNDROME 06/09/2013 JUSTICE VARGAS MD 536.8 GASTROPATHY HYPERSECRETORY 06/09/2013 MADL PATIENT COORDINATOR, TATYANA L 333 .94 RESTLESS LEGS SYNDROME 06/09/2013 MADL PATIENT COORDINATOR, TATYANA L 536 .8 GASTROPATHY HYPERSECRETORY 10/05/2013 NELI SIMPSON DO K Ot 250.00 DIAB YAHAIRA WO COMPL, TYPE II OR UNSPEC TY 10/05/2013 SIMPSON DO NELI K Ot 272.4 HYPERLIPIDEMIA NEC/NOS 10/05/2013 TATIANA LAGUNA NELI K Ot 288.60 LEUKOCYTOSIS, UNSPECIFIED 10/05/2013 SIMPSON DO NELI K Ot 305.1 TOBACCO USE DISORDER 10/05/2013 TATIANA LAGUNA NELI K Ot 401.9 HYPERTENSION NOS 10/05/2013 TATIANA LAGUNA NELI K Ot 414.01 CORONARY ATHEROSCLEROSIS OF [place] CORON 10/05/2013 SIMPSON DO NELI K Ot 426.3 LEFT BB BLOCK NEC 10/05/2013 PETER SIMPSON DOA K Ot 428.0 CONGESTIVE HEART FAILURE NOS 10/05/2013 SIMPSON DO NELI K Ot 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 10/05/2013 SIMPSON PETER LAGUNAA K Ot 530.81 ESOPHAGEAL REFLUX 10/05/2013 PETER SIMPSON DOA K Ot 780.79 OTH MALAISE FATIGUE 10/05/2013 SIMPSON DO NELI K Ot E932.0 ADV EFF CORTICOSTEROIDS 10/23/2013 PATY LATHAM MD 516.9 UNSPECIFIED ALVEOLAR AND PARIETOALVEOLAR PNEUMONOPATHY 10/23/2013 PATY LATHAM MD 786.50 UNSPECIFIED CHEST PAIN 10/23/2013 PETER SIMPSON DOA K 516.9 UNSPECIFIED ALVEOLAR AND PARIETOALVEOLAR PNEUMONOPATHY 10/23/2013 PETER SIMPSON DOA K 786.50 UNSPECIFIED CHEST PAIN 10/23/2013 PETER SIMPSON DOA K 516.9 UNSPECIFIED ALVEOLAR AND PARIETOALVEOLAR PNEUMONOPATHY 10/23/2013 PETER SIMPSON DOA K 786.50 UNSPECIFIED CHEST PAIN 10/23/2013 MADL PATIENT COORDINATOR, TATYANA L 516 .9 UNSPECIFIED ALVEOLAR AND PARIETOALVEOLAR PNEUMONOPATHY 10/23/2013 MADL PATIENT COORDINATOR, TATYANA L 786 .50 UNSPECIFIED CHEST PAIN 10/23/2013 MADL PATIENT COORDINATOR, TATYANA L 516 .9 UNSPECIFIED ALVEOLAR AND PARIETOALVEOLAR PNEUMONOPATHY 10/23/2013 MADL PATIENT COORDINATOR, TATYANA L 786 .50 UNSPECIFIED CHEST PAIN 10/23/2013 MADL PATIENT COORDINATOR, TATYANA L 516 .9 UNSPECIFIED ALVEOLAR AND PARIETOALVEOLAR PNEUMONOPATHY 10/23/2013 MADL PATIENT COORDINATOR, TATYANA L 786 .50 UNSPECIFIED CHEST PAIN 10/23/2013 SIMPSON DO, NELI K 516.9 UNSPECIFIED ALVEOLAR AND PARIETOALVEOLAR PNEUMONOPATHY 10/23/2013 SIMPSON DO, NELI K 786.50 UNSPECIFIED CHEST PAIN 10/23/2013 [facility], [place] R 516.9 UNSPECIFIED ALVEOLAR AND PARIETOALVEOLAR PNEUMONOPATHY 10/23/2013 [facility], [place] R 786.50 UNSPECIFIED CHEST PAIN 10/23/2013 [facility], [place] R 516.9 UNSPECIFIED ALVEOLAR AND PARIETOALVEOLAR PNEUMONOPATHY 10/23/2013 [facility], [place] R 786.50 UNSPECIFIED CHEST PAIN 10/23/2013 MADL PATIENT COORDINATOR, TATYANA L 516 .9 UNSPECIFIED ALVEOLAR AND PARIETOALVEOLAR PNEUMONOPATHY 10/23/2013 MADL PATIENT COORDINATOR, TATYANA L 786 .50 UNSPECIFIED CHEST PAIN 10/23/2013 SIMPSON DO, NELI K 516.9 UNSPECIFIED ALVEOLAR AND PARIETOALVEOLAR PNEUMONOPATHY 10/23/2013 SIMPSON DO, NELI K 786.50 UNSPECIFIED CHEST PAIN 10/23/2013 SIMPSON DO, NELI K 516.9 UNSPECIFIED ALVEOLAR AND PARIETOALVEOLAR PNEUMONOPATHY 10/23/2013 SIMPSON DO, NELI K 786.50 UNSPECIFIED CHEST PAIN 10/23/2013 MADL PATIENT COORDINATOR, TATYANA L 516 .9 UNSPECIFIED ALVEOLAR AND PARIETOALVEOLAR PNEUMONOPATHY 10/23/2013 MADL PATIENT COORDINATOR, TATYANA L 786 .50 UNSPECIFIED CHEST PAIN 10/23/2013 LUBA PATIENT COORDINATOR, JOSE S 516.9 UNSPECIFIED ALVEOLAR AND PARIETOALVEOLAR PNEUMONOPATHY 10/23/2013 LUBA PATIENT COORDINATOR, JOSE S 786.50 UNSPECIFIED CHEST PAIN 10/23/2013 MADL PATIENT COORDINATOR, TATYANA L 516 .9 UNSPECIFIED ALVEOLAR AND PARIETOALVEOLAR PNEUMONOPATHY 10/23/2013 MADL PATIENT COORDINATOR, TATYANA L 786 .50 UNSPECIFIED CHEST PAIN 10/23/2013 MADL PATIENT COORDINATOR, TATYANA L 516 .9 UNSPECIFIED ALVEOLAR AND PARIETOALVEOLAR PNEUMONOPATHY 10/23/2013 MADL PATIENT COORDINATOR, TATYANA L 786 .50 UNSPECIFIED CHEST PAIN 10/23/2013 MADL PATIENT COORDINATOR, TATYANA L 516 .9 UNSPECIFIED ALVEOLAR AND PARIETOALVEOLAR PNEUMONOPATHY 10/23/2013 MADL PATIENT COORDINATOR, TATYANA L 786 .50 UNSPECIFIED CHEST PAIN 10/23/2013 LUBA MINER JOSE S 516.9 UNSPECIFIED ALVEOLAR AND PARIETOALVEOLAR PNEUMONOPATHY 10/23/2013 LUBA PATIENT COORDINATOR, JOSE S 786.50 UNSPECIFIED CHEST PAIN 10/23/2013 MADL PATIENT COORDINATOR, TATYANA L 516 .9 UNSPECIFIED ALVEOLAR AND PARIETOALVEOLAR PNEUMONOPATHY 10/23/2013 MISTI PATIENT COORDINATOR, TATYANA L 786 .50 UNSPECIFIED CHEST PAIN 10/23/2013 JUSTICE VARGAS MD 516.9 UNSPECIFIED ALVEOLAR AND PARIETOALVEOLAR PNEUMONOPATHY 10/23/2013 JUSTICE VARGAS MD 786.50 UNSPECIFIED CHEST PAIN 10/23/2013 MISTI MINER, TATYANA L 516 .9 UNSPECIFIED ALVEOLAR AND PARIETOALVEOLAR PNEUMONOPATHY 10/23/2013 MISTI MINER TATYANA L 786 .50 UNSPECIFIED CHEST PAIN 11/17/2013 BRENDON PLUNKETT DO Ot 327. 23 OBSTRUCTIVE SLEEP APNEA (ADULT) (PEDIATR 11/17/2013 BRENDON PLUNKETT DO Ot 401. 9 HYPERTENSION NOS 11/17/2013 BRENDON PLUNKETT DO Ot 414. 9 CHR ISCHEMIC HRT DIS NOS 11/17/2013 BRENDON PLUNKETT DO Ot 786. 09 RESPIRATORY ABNORM NEC 12/11/2013 MAIA WALLIS, ALEXI Pace Ot 250. 00 DIAB YAHAIRA WO COMPL, TYPE II OR UNSPEC TY 12/11/2013 MAIA WALLIS, ALEXI Pace Ot 790. 29 OTHER ABNORMAL GLUCOSE 12/11/2013 MAIA WALLIS, ALEXI Pace Ot V58. 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 12/17/2013 TATYANA CHAPPELL APRN L 274 .00 GOUTY ARTHROPATHY UNSPECIFIED 12/17/2013 MADL PATIENT COORDINATOR, TATYANA L 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 12/17/2013 MADL PATIENT COORDINATOR, TATYANA L 274 .00 GOUTY ARTHROPATHY UNSPECIFIED 12/17/2013 MADL PATIENT COORDINATOR, TATYANA L 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 12/17/2013 MADL PATIENT COORDINATOR, TATYANA L 274 .00 GOUTY ARTHROPATHY UNSPECIFIED 12/17/2013 MADL PATIENT COORDINATOR, TATYANA L 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 12/17/2013 SIMPSON DO, NELI K 274.00 GOUTY ARTHROPATHY UNSPECIFIED 12/17/2013 SIMPSON DO, NELI K 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 12/17/2013 [facility], FERNANDA R 274.00 GOUTY ARTHROPATHY UNSPECIFIED 12/17/2013 [facility], FERNANDA R 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 12/17/2013 [facility], FERNANDA R 274.00 GOUTY ARTHROPATHY UNSPECIFIED 12/17/2013 [facility], FERNANDA R 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 12/17/2013 MAD PATIENT COORDINATOR, TATYANA L 274 .00 GOUTY ARTHROPATHY UNSPECIFIED 12/17/2013 MADL PATIENT COORDINATOR, TATYANA L 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 12/17/2013 SIMPSON DO, NELI K 274.00 GOUTY ARTHROPATHY UNSPECIFIED 12/17/2013 SIMPSON DO, NELI K 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 12/17/2013 SIMPSON DO, NELI K 274.00 GOUTY ARTHROPATHY UNSPECIFIED 12/17/2013 SIMPSON DO, NELI K 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 12/17/2013 MADL PATIENT COORDINATOR, TATYANA L 274 .00 GOUTY ARTHROPATHY UNSPECIFIED 12/17/2013 MADL PATIENT COORDINATOR, TATYANA L 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 12/17/2013 [facility] PATIENT COORDINATOR, JOSE S 274.00 GOUTY ARTHROPATHY UNSPECIFIED 12/17/2013 LU[facility] PATIENT COORDINATOR, JOSE S 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 12/17/2013 MADL PATIENT COORDINATOR, TATYANA L 274 .00 GOUTY ARTHROPATHY UNSPECIFIED 12/17/2013 MADL PATIENT COORDINATOR, TATYANA L 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 12/17/2013 MADL PATIENT COORDINATOR, TATYANA L 274 .00 GOUTY ARTHROPATHY UNSPECIFIED 12/17/2013 MADL PATIENT COORDINATOR, TATYANA L 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 12/17/2013 MADL PATIENT COORDINATOR, TATYANA L 274 .00 GOUTY ARTHROPATHY UNSPECIFIED 12/17/2013 MADL PATIENT COORDINATOR, TATYANA L 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 12/17/2013 [facility] PATIENT COORDINATOR, JOSE S 274.00 GOUTY ARTHROPATHY UNSPECIFIED 12/17/2013 LUBA PATIENT COORDINATOR, JOSE S 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 12/17/2013 MADL PATIENT COORDINATOR, TATYANA L 274 .00 GOUTY ARTHROPATHY UNSPECIFIED 12/17/2013 MADL PATIENT COORDINATOR, TATYANA L 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 12/17/2013 ALICIA WALLIS, BASHAR 274.00 GOUTY ARTHROPATHY UNSPECIFIED 12/17/2013 ALICIA WALLIS BASHAR 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 12/17/2013 MADL PATIENT COORDINATOR, TATYANA L 274 .00 GOUTY ARTHROPATHY UNSPECIFIED 12/17/2013 MADL PATIENT COORDINATOR, TATYANA L 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 12/26/2013 NELI SIMPSON DO K 110.1 DERMATOPHYTOSIS OF NAIL 12/26/2013 PETER SIMPSON DOA K 681.10 UNSPECIFIED CELLULITIS AND ABSCESS OF TOE 12/26/2013 MADL PATIENT COORDINATOR, TATYANA L 110 .1 DERMATOPHYTOSIS OF NAIL 12/26/2013 MADL PATIENT COORDINATOR, TATYANA L 681 .10 UNSPECIFIED CELLULITIS AND ABSCESS OF TOE 12/26/2013 MADL PATIENT COORDINATOR, TATYANA L 110 .1 DERMATOPHYTOSIS OF NAIL 12/26/2013 MADL PATIENT COORDINATOR, TATYANA L 681 .10 UNSPECIFIED CELLULITIS AND ABSCESS OF TOE 12/26/2013 MADL PATIENT COORDINATOR, TATYANA L 110 .1 DERMATOPHYTOSIS OF NAIL 12/26/2013 MADL PATIENT COORDINATOR, TATYANA L 681 .10 UNSPECIFIED CELLULITIS AND ABSCESS OF TOE 12/26/2013 TATIANA LAGUNA NELI K 110.1 DERMATOPHYTOSIS OF NAIL 12/26/2013 PETER SIMPSON DOA K 681.10 UNSPECIFIED CELLULITIS AND ABSCESS OF TOE 12/26/2013 [facility], FERNANDA R 110.1 DERMATOPHYTOSIS OF NAIL 12/26/2013 [facility], FERNANDA R 681.10 UNSPECIFIED CELLULITIS AND ABSCESS OF TOE 12/26/2013 [facility], FERNANDA R 110.1 DERMATOPHYTOSIS OF NAIL 12/26/2013 [facility], FER[place]DA R 681.10 UNSPECIFIED CELLULITIS AND ABSCESS OF TOE 12/26/2013 MADL PATIENT COORDINATOR, TATYANA L 110 .1 DERMATOPHYTOSIS OF NAIL 12/26/2013 MADL PATIENT COORDINATOR, TATYANA L 681 .10 UNSPECIFIED CELLULITIS AND ABSCESS OF TOE 12/26/2013 SIMPSON DO, NELI K 110.1 DERMATOPHYTOSIS OF NAIL 12/26/2013 SIMPSON DO, NELI K 681.10 UNSPECIFIED CELLULITIS AND ABSCESS OF TOE 12/26/2013 SIMPSON DO, NELI K 110.1 DERMATOPHYTOSIS OF NAIL 12/26/2013 SIMPSON DO NELI K 681.10 UNSPECIFIED CELLULITIS AND ABSCESS OF TOE 12/26/2013 MADL PATIENT COORDINATOR, TATYANA L 110 .1 DERMATOPHYTOSIS OF NAIL 12/26/2013 MADL PATIENT COORDINATOR, TATYANA L 681 .10 UNSPECIFIED CELLULITIS AND ABSCESS OF TOE 12/26/2013 LUBA MINER, JOSE S 110.1 DERMATOPHYTOSIS OF NAIL 12/26/2013 LUBA PATIENT COORDINATOR, JOSE S 681.10 UNSPECIFIED CELLULITIS AND ABSCESS OF TOE 12/26/2013 MADL PATIENT COORDINATOR, TATYANA L 110 .1 DERMATOPHYTOSIS OF NAIL 12/26/2013 MADL PATIENT COORDINATOR, TATYANA L 681 .10 UNSPECIFIED CELLULITIS AND ABSCESS OF TOE 12/26/2013 MADL PATIENT COORDINATOR, TATYANA L 110 .1 DERMATOPHYTOSIS OF NAIL 12/26/2013 MADL PATIENT COORDINATOR, TATYANA L 681 .10 UNSPECIFIED CELLULITIS AND ABSCESS OF TOE 12/26/2013 MADL PATIENT COORDINATOR, TATYANA L 110 .1 DERMATOPHYTOSIS OF NAIL 12/26/2013 MADL PATIENT COORDINATOR, TATYANA L 681 .10 UNSPECIFIED CELLULITIS AND ABSCESS OF TOE 12/26/2013 LUBA MINER JOSE S 110.1 DERMATOPHYTOSIS OF NAIL 12/26/2013 LUBA MINER JOSE S 681.10 UNSPECIFIED CELLULITIS AND ABSCESS OF TOE 12/26/2013 JOANL PATIENT COORDINATOR, TATYANA L 110 .1 DERMATOPHYTOSIS OF NAIL 12/26/2013 MADL PATIENT COORDINATOR, TATYANA L 681 .10 UNSPECIFIED CELLULITIS AND ABSCESS OF TOE 12/26/2013 JUSTICE VARGAS MD 110.1 DERMATOPHYTOSIS OF NAIL 12/26/2013 JUSTICE VARGAS MD 681.10 UNSPECIFIED CELLULITIS AND ABSCESS OF TOE 12/26/2013 MADL PATIENT COORDINATOR, TATYANA L 110 .1 DERMATOPHYTOSIS OF NAIL 12/26/2013 MADL PATIENT COORDINATOR, TATYANA L 681 .10 UNSPECIFIED CELLULITIS AND ABSCESS OF TOE 01/20/2014 BRENDON PLUNKETT DO Ot 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 02/01/2014 MISTI MINER, TATYANA L 250 .80 DIABETES WITH OTHER SPECIFIED MANIFESTATIONS TYPE II OR UNSPECIFIED TYPE NOT STATED UNCONTROLLED 02/01/2014 MISTI MINER, TATYANA L 250 .80 DIABETES WITH OTHER SPECIFIED MANIFESTATIONS TYPE II OR UNSPECIFIED TYPE NOT STATED UNCONTROLLED 02/01/2014 MISTI PATIENT COORDINATOR, TATYANA L 250 .80 DIABETES WITH OTHER SPECIFIED MANIFESTATIONS TYPE II OR UNSPECIFIED TYPE NOT STATED UNCONTROLLED 02/01/2014 NELI SIMPSON DO 250.80 DIABETES WITH OTHER SPECIFIED MANIFESTATIONS TYPE II OR UNSPECIFIED TYPE NOT STATED UNCONTROLLED 02/01/2014 [facility] 250.80 DIABETES WITH OTHER SPECIFIED MANIFESTAT IONS TYPE II OR UNSPECIFIED TYPE NOT STATED UNCONTROLLED 02/01/[address] [facility], FERNANDA R 250.80 DIABETES WITH OTHER SPECIFIED MANIFESTAT IONS TYPE II OR UNSPECIFIED TYPE NOT STATED UNCONTROLLED 02/01/2014 MISTI MINER, TATYANA L 250 .80 DIABETES WITH OTHER SPECIFIED MANIFESTATIONS TYPE II OR UNSPECIFIED TYPE NOT STATED UNCONTROLLED 02/01/2014 NELI SIMPSON DO 250.80 DIABETES WITH OTHER SPECIFIED MANIFESTATIONS TYPE II OR UNSPECIFIED TYPE NOT STATED UNCONTROLLED 02/01/2014 NELI SIMPSON DO 250.80 DIABETES WITH OTHER SPECIFIED MANIFESTATIONS TYPE II OR UNSPECIFIED TYPE NOT STATED UNCONTROLLED 02/01/2014 MISTI MINER, TATYANA L 250 .80 DIABETES WITH OTHER SPECIFIED MANIFESTATIONS TYPE II OR UNSPECIFIED TYPE NOT STATED UNCONTROLLED 02/01/2014 LUBA PATIENT COORDINATORCHAGO DunnA S 250.80 DIABETES WITH OTHER SPECIFIED MANIFESTAT IONS TYPE II OR UNSPECIFIED TYPE NOT STATED UNCONTROLLED 02/01/2014 MADL PATIENT COORDINATOR, TATYANA L 250 .80 DIABETES WITH OTHER SPECIFIED MANIFESTATIONS TYPE II OR UNSPECIFIED TYPE NOT STATED UNCONTROLLED 02/01/2014 MADL PATIENT COORDINATOR, TATYANA L 250 .80 DIABETES WITH OTHER SPECIFIED MANIFESTATIONS TYPE II OR UNSPECIFIED TYPE NOT STATED UNCONTROLLED 02/01/2014 MADL PATIENT COORDINATOR, TATYANA L 250 .80 DIABETES WITH OTHER SPECIFIED MANIFESTATIONS TYPE II OR UNSPECIFIED TYPE NOT STATED UNCONTROLLED 02/01/2014 LUBA PATIENT COORDINATORABBEY DunnNDA S 250.80 DIABETES WITH OTHER SPECIFIED MANIFESTAT IONS TYPE II OR UNSPECIFIED TYPE NOT STATED UNCONTROLLED 02/01/2014 MADL PATIENT COORDINATOR, TATYANA L 250 .80 DIABETES WITH OTHER SPECIFIED MANIFESTATIONS TYPE II OR UNSPECIFIED TYPE NOT STATED UNCONTROLLED 02/01/2014 JUSTICE VARGAS MD 250.80 DIABETES WITH OTHER SPECIFIED MANIFESTATIONS TYPE II OR UNSPECIFIED TYPE NOT STATED UNCONTROLLED 02/01/2014 MADL PATIENT COORDINATOR, TATYANA L 250 .80 DIABETES WITH OTHER SPECIFIED MANIFESTATIONS TYPE II OR UNSPECIFIED TYPE NOT STATED UNCONTROLLED 02/25/2014 MADTATYANA Castellano L SERVICE DISMANTLER Ot 250.80 DIAB W OTH SPEC MANIFEST, TYPE II OR UNS 02/25/2014 MADMAX CastellanoA L SERVICE DISMANTLER Ot 707.10 ULCER OF LOWER LIMB NOS 03/05/2014 NELI SIMPSON DO 356.9 NEUROPATHY 03/05/2014 NELI SIMPSON DO 707.15 ULCER-FOOT/TOES 03/05/2014 [facility], FER[place]DA R 356.9 NEUROPATHY 03/05/2014 [facility], [place]ER[place]DA R 707.15 ULCER-FOOT/TOES 03/05/2014 [facility], [place]ER[place] R 356.9 NEUROPATHY 03/05/2014 [facility], [place]ER[place] R 707.15 ULCER-FOOT/TOES 03/05/2014 TATYANA CHAPPELL APRN 356 .9 NEUROPATHY 03/05/2014 MISTI PATIENT COORDINATORTATYANA Dunn L 707 .15 ULCER-FOOT/TOES 03/05/2014 SIMPSON DO, NELI K 356.9 NEUROPATHY 03/05/2014 SIMPSON DO, NELI K 707.15 ULCER-FOOT/TOES 03/05/2014 SIMPSON DO, NELI K 356.9 NEUROPATHY 03/05/2014 SIMPSON DO, NELI K 707.15 ULCER-FOOT/TOES 03/05/2014 MADL PATIENT COORDINATOR, TATYANA L 356 .9 NEUROPATHY 03/05/2014 MADL PATIENT COORDINATOR, TATYANA L 707 .15 ULCER-FOOT/TOES 03/05/2014 LUBA PATIENT COORDINATOR, JOSE S 356.9 NEUROPATHY 03/05/2014 LUBA PATIENT COORDINATOR, JOSE S 707.15 ULCER-FOOT/TOES 03/05/2014 MADL PATIENT COORDINATOR, TATYANA L 356 .9 NEUROPATHY 03/05/2014 MADL PATIENT COORDINATOR, TATYANA L 707 .15 ULCER-FOOT/TOES 03/05/2014 MADL PATIENT COORDINATOR, TATYANA L 356 .9 NEUROPATHY 03/05/2014 MADL PATIENT COORDINATOR, TATYANA L 707 .15 ULCER-FOOT/TOES 03/05/2014 MADL PATIENT COORDINATOR, TATYANA L 356 .9 NEUROPATHY 03/05/2014 MADL PATIENT COORDINATOR, TATYANA L 707 .15 ULCER-FOOT/TOES 03/05/2014 LUBA PATIENT COORDINATOR, JOSE S 356.9 NEUROPATHY 03/05/2014 LUBA PATIENT COORDINATOR, JOSE S 707.15 ULCER-FOOT/TOES 03/05/2014 MADL PATIENT COORDINATOR, TATYANA L 356 .9 NEUROPATHY 03/05/2014 MADL PATIENT COORDINATOR, TATYANA L 707 .15 ULCER-FOOT/TOES 03/05/2014 JUSTICE VARGAS MD 356.9 NEUROPATHY 03/05/2014 JUSTICE VARGAS MD 707.15 ULCER-FOOT/TOES 03/05/2014 MADL PATIENT COORDINATOR, TATYANA L 356 .9 NEUROPATHY 03/05/2014 MADL PATIENT COORDINATOR, TATYANA L 707 .15 ULCER-FOOT/TOES 03/12/[address] MO DYSTHYMIC DISORDER 03/12/[address] [facility] MO DYSTHYMIC DISORDER 03/12/2014 MADL PATIENT COORDINATOR, TATYANA L 300 .4 MO DYSTHYMIC DISORDER 03/12/2014 SIMPSON DO, NELI K 300.4 MO DYSTHYMIC DISORDER 03/12/2014 SIMPSON DO, NELI K 300.4 MO DYSTHYMIC DISORDER 03/12/2014 MADL PATIENT COORDINATOR, TATYANA L 300 .4 MO DYSTHYMIC DISORDER 03/12/2014 LUBA PATIENT COORDINATOR, JOSE S 300.4 MO DYSTHYMIC DISORDER 03/12/2014 MADL PATIENT COORDINATOR, TATYANA L 300 .4 MO DYSTHYMIC DISORDER 03/12/2014 MADL PATIENT COORDINATOR, TATYANA L 300 .4 MO DYSTHYMIC DISORDER 03/12/2014 MADL PATIENT COORDINATOR, TATYANA L 300 .4 MO DYSTHYMIC DISORDER 03/12/2014 LUBA PATIENT COORDINATOR, JOSE S 300.4 MO DYSTHYMIC DISORDER 03/12/2014 MADL PATIENT COORDINATOR, TATYANA L 300 .4 MO DYSTHYMIC DISORDER 03/12/2014 JUSTICE VARGAS MD 300.4 MO DYSTHYMIC DISORDER 03/12/2014 MADL PATIENT COORDINATOR, TATYANA L 300 .4 MO DYSTHYMIC DISORDER 03/12/2014 RODRI LAGUNA JULIET K Ot 250.00 DIAB YAHAIRA WO COMPL, TYPE II OR UNSPEC TY 03/12/2014 RODRI JULIET LAGUNA Ot 298.9 PSYCHOSIS NOS 03/12/2014 RODRI DO JULIET K Ot V58.67 LONG-TERM (CURRENT) USE OF INSULIN 03/12/2014 RODRI DO JULIET K Ot V58.69 OTH MED,LT,CURRENT USE 04/09/2014 JOANGray PATIENT COORDINATOR, TATYANA L 300 .00 ANXIETY UNSPEC 04/09/2014 SIMPSON DO NELI K 300.00 ANXIETY UNSPEC 04/09/2014 SIPMSON DO NELI K 300.00 ANXIETY UNSPEC 04/09/2014 MADL PATIENT COORDINATOR, TATYANA L 300 .00 ANXIETY UNSPEC 04/09/2014 CHAGO VERDUZCO APRNA S 300.00 ANXIETY UNSPEC 04/09/2014 MADL PATIENT COORDINATOR, TATYANA L 300 .00 ANXIETY UNSPEC 04/09/2014 MADL PATIENT COORDINATOR, TATYANA L 300 .00 ANXIETY UNSPEC 04/09/2014 MADL PATIENT COORDINATOR, TATYANA L 300 .00 ANXIETY UNSPEC 04/09/2014 JOSE VERDUZCO APRN S 300.00 ANXIETY UNSPEC 04/09/2014 MADL PATIENT COORDINATOR, TATYANA L 300 .00 ANXIETY UNSPEC 04/09/2014 JUSTICE VARGAS MD 300.00 ANXIETY UNSPEC 04/09/2014 MADL PATIENT COORDINATOR, TATYANA L 300 .00 ANXIETY UNSPEC 04/11/2014 MIKE WALLIS, TESSA Zhang Ot 250.00 DIAB YAHAIRA WO COMPL, TYPE II OR UNSPEC TY 04/11/2014 MIKE WALLIS, TESSA Zhang Ot 272 .4 HYPERLIPIDEMIA NEC/NOS 04/11/2014 MIKE WALLIS, TESSA Zhang Ot 305.20 CANNABIS ABUSE-UNSPEC 04/11/2014 TESSA MCKEON MD Ot 401 .9 HYPERTENSION NOS 04/11/2014 MIKE WALLIS, TESSA Zhang Ot 780.09 OTHER ALTERATION OF CONSCIOUSNESS 04/11/2014 MIKE WALLIS, TESSA Zhang Ot 965 .8 POIS-ANALGES/ANTIPYR NEC 04/11/2014 TESSA MCKEON MD Ot 969 .4 POIS-BENZODIAZEPINE TAVAREZ 04/11/2014 MIKE WALLIS, TESSA Zhang Ot E950.0 SUICIDE-ANALGESICS 04/11/2014 TESSA MCKEON MD Ot 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 04/11/2014 MIKE WALLIS, TESSA Zhang Ot V15.82 HISTORY OF TOBACCO USE 05/12/2014 PETER SIMPSON DOA K 303.90 ALCOHOLISM 05/12/2014 PETER SIMPSON DOA K 304.90 UNSPECIFIED DRUG DEPENDENCE UNSPECIFIED USE 05/12/2014 NELI SIMPSON DO K 607.84 IMPOTENCE OF ORGANIC ORIGIN 05/12/2014 PETER SIMPSON DOA K 303.90 ALCOHOLISM 05/12/2014 SIMPSON DO NELI K 304.90 UNSPECIFIED DRUG DEPENDENCE UNSPECIFIED USE 05/12/2014 SIMPSON DO NELI K 607.84 IMPOTENCE OF ORGANIC ORIGIN 05/12/2014 MADL PATIENT COORDINATORRAUDEL DunnNYA L 303 .90 ALCOHOLISM 05/12/2014 MADL PATIENT COORDINATOR, TATYANA L 304 .90 UNSPECIFIED DRUG DEPENDENCE UNSPECIFIED USE 05/12/2014 MADL PATIENT COORDINATORRAUDEL DunnNYA L 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 05/12/2014 JOSE VERDUZCO APRN S 303.90 ALCOHOLISM 05/12/2014 LUBA PATIENT COORDINATOR, JOSE S 304.90 UNSPECIFIED DRUG DEPENDENCE UNSPECIFIED USE 05/12/2014 LUBA MINER JOSE S 607.84 IMPOTENCE OF ORGANIC ORIGIN 05/12/2014 MADL PATIENT COORDINATOR, TATYANA L 303 .90 ALCOHOLISM 05/12/2014 MADL PATIENT COORDINATOR, TATYANA L 304 .90 UNSPECIFIED DRUG DEPENDENCE UNSPECIFIED USE 05/12/2014 MADL PATIENT COORDINATOR, TATYANA L 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 05/12/2014 MADL PATIENT COORDINATOR, TATYANA L 303 .90 ALCOHOLISM 05/12/2014 MADL PATIENT COORDINATOR, TATYANA L 304 .90 UNSPECIFIED DRUG DEPENDENCE UNSPECIFIED USE 05/12/2014 MADL PATIENT COORDINATOR, TATYANA L 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 05/12/2014 MADL PATIENT COORDINATOR, TATYANA L 303 .90 ALCOHOLISM 05/12/2014 MADL PATIENT COORDINATOR, TATYANA L 304 .90 UNSPECIFIED DRUG DEPENDENCE UNSPECIFIED USE 05/12/2014 MADL PATIENT COORDINATOR, TATYANA L 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 05/12/2014 LUBA MINER, JOSE S 303.90 ALCOHOLISM 05/12/2014 LUBA PATIENT COORDINATOR, JOSE S 304.90 UNSPECIFIED DRUG DEPENDENCE UNSPECIFIED USE 05/12/2014 LUBA PATIENT COORDINATOR, JOSE S 607.84 IMPOTENCE OF ORGANIC ORIGIN 05/12/2014 MADL PATIENT COORDINATOR, TATYANA L 303 .90 ALCOHOLISM 05/12/2014 MADL PATIENT COORDINATOR, TATYANA L 304 .90 UNSPECIFIED DRUG DEPENDENCE UNSPECIFIED USE 05/12/2014 MADL PATIENT COORDINATOR, TATYANA L 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 05/12/2014 ALICIA WALLIS, JUSTICE 303.90 ALCOHOLISM 05/12/2014 ALICIA WALLIS, JUSTICE 304.90 UNSPECIFIED DRUG DEPENDENCE UNSPECIFIED USE 05/12/2014 ALICIA WALLIS, JUSTICE 607.84 IMPOTENCE OF ORGANIC ORIGIN 05/12/2014 MADL PATIENT COORDINATOR, TATYANA L 303 .90 ALCOHOLISM 05/12/2014 MADL PATIENT COORDINATOR, TATYANA L 304 .90 UNSPECIFIED DRUG DEPENDENCE UNSPECIFIED USE 05/12/2014 MADL PATIENT COORDINATOR, TATYANA L 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 06/22/2014 LUBA PATIENT COORDINATOR, JOSE S 276.51 DEHYDRATION 06/22/2014 LUBA PATIENT COORDINATOR, JOSE S 787.91 DIARRHEA 06/22/2014 MADL PATIENT COORDINATOR, TATYANA L 276 .51 DEHYDRATION 06/22/2014 MADL PATIENT COORDINATOR, TATYANA L 787 .91 DIARRHEA 06/22/2014 MADL PATIENT COORDINATOR, TATYANA L 276 .51 DEHYDRATION 06/22/2014 MADL PATIENT COORDINATOR, TATYANA L 787 .91 DIARRHEA 06/22/2014 MADL PATIENT COORDINATOR, TATYANA L 276 .51 DEHYDRATION 06/22/2014 MADL PATIENT COORDINATOR, TATYANA L 787 .91 DIARRHEA 06/22/2014 LUBA PATIENT COORDINATOR, JOSE S 276.51 DEHYDRATION 06/22/2014 LUBA PATIENT COORDINATOR, JOSE S 787.91 DIARRHEA 06/22/2014 MADL PATIENT COORDINATOR, TATYANA L 276 .51 DEHYDRATION 06/22/2014 MADL PATIENT COORDINATOR, TATYANA L 787 .91 DIARRHEA 06/22/2014 ALICIA WALLIS, BASCHARLEY 276.51 DEHYDRATION 06/22/2014 JUSTICE VARGAS MD 787.91 DIARRHEA 06/22/2014 MADL PATIENT COORDINATOR, TATYANA L 276 .51 DEHYDRATION 06/22/2014 MADL PATIENT COORDINATOR, TATYANA L 787 .91 DIARRHEA 06/29/2014 MADL PATIENT COORDINATOR, TATYANA L 787 .99 OTHER SYMPTOMS INVOLVING DIGESTIVE SYSTEM 06/29/2014 MADL PATIENT COORDINATOR, TATYANA L 787 .99 OTHER SYMPTOMS INVOLVING DIGESTIVE SYSTEM 06/29/2014 MADL PATIENT COORDINATOR, TATYANA L 787 .99 OTHER SYMPTOMS INVOLVING DIGESTIVE SYSTEM 06/29/2014 LUBA PATIENT COORDINATOR, JOSE S 787.99 OTHER SYMPTOMS INVOLVING DIGESTIVE SYSTEM 06/29/2014 MADL PATIENT COORDINATOR, TATYANA L 787 .99 OTHER SYMPTOMS INVOLVING DIGESTIVE SYSTEM 06/29/2014 ALICIA WALLIS, BASHAR 787.99 OTHER SYMPTOMS INVOLVING DIGESTIVE SYSTEM 06/29/2014 MADL PATIENT COORDINATOR, TATYANA L 787 .99 OTHER SYMPTOMS INVOLVING DIGESTIVE SYSTEM 07/14/2014 MADL PATIENT COORDINATOR, TATYANA L 302 .72 PSYCHOSEXUAL DYSFUNCTION WITH INHIBITED SEXUAL EXCITEMENT 07/14/2014 MADL PATIENT COORDINATORNATHALIATATYANA L V04 .81 FLU SHOT 07/14/2014 LUBA PATIENT COORDINATOR, JOSE S 302.72 PSYCHOSEXUAL DYSFUNCTION WITH INHIBITED SEXUAL EXCITEM ENT 07/14/2014 LUBA PATIENT COORDINATOR, JOSE S V04.81 FLU SHOT 07/14/2014 MADL PATIENT COORDINATORRAUDELTATYANA L 302 .72 PSYCHOSEXUAL DYSFUNCTION WITH INHIBITED SEXUAL EXCITEMENT 07/14/2014 MADL PATIENT COORDINATOR, TATYANA L V04 .81 FLU SHOT 07/14/2014 JUSTICE VARGAS MD 302.72 PSYCHOSEXUAL DYSFUNCTION WITH INHIBITED SEXUAL EXCITEMENT 07/14/2014 JUSTICE VARGAS MD V04.81 FLU SHOT 07/14/2014 MADL PATIENT COORDINATOR, TATYANA L 302 .72 PSYCHOSEXUAL DYSFUNCTION WITH INHIBITED SEXUAL EXCITEMENT 07/14/2014 MADL PATIENT COORDINATOR, TATYANA L V04 .81 FLU SHOT 10/18/2014 MADL PATIENT COORDINATOR, TATYANA L 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 10/18/2014 MISTI PATIENT COORDINATOR, TATYANA L 414 .00 CORONARY ATHEROSCLEROSIS OF UNSPECIFIED TYPE OF VESSEL [place] OR GRAFT 10/18/2014 JUSTICE VARGAS MD 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 10/18/2014 JUSTICE VARGAS MD 414.00 CORONARY ATHEROSCLEROSIS OF UNSPECIFIED TYPE OF VESSEL [place] OR GRAFT 10/18/2014 JOANL PATIENT COORDINATOR, TATYANA L 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 10/18/2014 JOANL PATIENT COORDINATOR, TATYANA L 414 .00 CORONARY ATHEROSCLEROSIS OF UNSPECIFIED TYPE OF VESSEL [place] OR GRAFT 12/02/2014 JUSTICE VARGAS MD 782.2 LOCALIZED SUPERFICIAL SWELLING MASS OR LUMP 12/02/2014 MAX CHAPPELL APRNA L 782 .2 LOCALIZED SUPERFICIAL SWELLING MASS OR LUMP 12/03/2014 JUSTICE VARGAS MD 401.9 HYPERTENSION, UNSPECIFIED ESSENTIAL 12/03/2014 MISTI MINER TATYANA L 401 .9 HYPERTENSION, UNSPECIFIED ESSENTIAL 12/03/2014 IVÁN GRACE PATIENT COORDINATOR Ot 719.45 JOINT PAIN-PELVIS 12/03/2014 IVÁN GRACE APRN Ot 724 .3 SCIATICA 12/09/2014 ALICIA WALLIS, JUSTICE 719.45 PAIN- HIP 12/09/2014 MISTI MINER TATYANA Gray 719 .45 PAIN- HIP 12/20/2014 TATYANA CHAPPELL SERVICE DISMANTLER Ot 722.10 12/20/2014 TATYANA CHAPPELL SERVICE DISMANTLER Ot 722.52 12/23/2014 Ot 782.2 01/03/2015 RENEE WALLIS, LILIBETH Thomas Ot 780.4 DIZZINESS AND GIDDINESS 01/03/2015 LILIBETH DURAN MD Ot 787.02 NAUSEA ALONE 01/10/2015 MISTITATYANA Gray SERVICE DISMANTLER Ot 722.10 01/10/2015 MISTITATYANA Gray SERVICE DISMANTLER Ot 722.52 01/19/2015 MONICA LANGE Ot 272.4 01/19/2015 MONICA LANGE Ot 401.9 01/19/2015 MONICA LANGE Ot 414.00 01/19/2015 MONICA LANGE Ot 786.50 01/30/2015 BRENDON PLUNKETT DO Ot 250. 01 01/30/2015 BRENDON PLUNKETT DO Ot 278. 00 01/30/2015 BRENDON PLUNKETT DO Ot 327. 23 01/30/2015 BRENDON PLUNKETT DO Ot 426. 3 01/30/2015 BRENDON PLUNKETT DO Ot 515 01/30/2015 BRENDON PLUNKETT DO Ot 516. 8 01/30/2015 BRENDON PLUNKETT DO Ot 785. 1 01/30/2015 ALICIA WALLIS, JUSTICE Parker Ot 250. 00 01/30/2015 ALICIA WALLIS, JUSTICE Parker Ot 401. 9 01/30/2015 ALICIA WALLIS, JUSTICE Parker Ot 426. 3 01/30/2015 ALICIA WALLIS, JUSTICE Parker Ot 515 01/30/2015 JUSTICE VARGAS MD Ot 786. 50 01/30/2015 BRENDON PLUNKETT DO Ot 278. 00 01/30/2015 BRENDON PLUNKETT DO Ot 327. 23 01/30/2015 BRENDON PLUNKETT DO Ot 515 01/30/2015 BRENDON PLUNKETT DO Ot 786. 50 01/30/2015 BRENDON PLUNKETT DO Ot 793. 19 01/30/2015 JULIET MACE DO Ot 298.9 01/30/2015 JULIET MACE DO Ot 348.89 01/30/2015 MADL, TATYANA L SERVICE DISMANTLER Ot 272 .4 01/30/2015 MADL, TATYANA L SERVICE DISMANTLER Ot 401 .1 01/30/2015 MADL, TATYANA L SERVICE DISMANTLER Ot 414.00 01/30/2015 MADL, TATYANA L SERVICE DISMANTLER Ot 786.50 01/30/2015 Ot 782.2 01/30/2015 MONICA LANGE Ot 272.4 01/30/2015 MONICA LANGE Ot 401.9 01/30/2015 MONICA LANGE Ot 414.00 01/30/2015 MONICA LANGE Ot 786.50 01/30/2015 JOANL, TATYANA L SERVICE DISMANTLER Ot 722.10 01/30/2015 MADL, TATYANA L SERVICE DISMANTLER Ot 722.52 01/30/2015 IVÁN GRACE PATIENT COORDINATOR Ot 250.00 DIAB YAHAIRA WO COMPL, TYPE II OR UNSPEC TY 01/30/2015 IVÁN GRACE PATIENT COORDINATOR Ot 401 .9 HYPERTENSION NOS 01/30/2015 IVÁN GRACE PATIENT COORDINATOR Ot 530.81 ESOPHAGEAL REFLUX 01/30/2015 IVÁN GRACE PATIENT COORDINATOR Ot 787.91 DIARRHEA 01/30/2015 IVÁN GRACE PATIENT COORDINATOR Ot V58.67 LONG-TERM (CURRENT) USE OF INSULIN 02/20/2015 JOANL, TATYANA L SERVICE DISMANTLER Ot 272 .4 HYPERLIPIDEMIA NEC/NOS 02/20/2015 MADL, TATYANA L SERVICE DISMANTLER Ot 401 .1 BENIGN HYPERTENSION 02/20/2015 MADL, TATYANA L SERVICE DISMANTLER Ot 414.00 CORON ATHEROSCLER NOS TYPE VESSEL, NATIV 02/20/2015 MADL, TATYANA L SERVICE DISMANTLER Ot 786.50 CHEST PAIN NOS 03/01/2015 Ot [...] PAIN 07/13/2015 LILIBETH DURAN MD Ot Z79.4 PENITENTIARY (CURRENT) USE OF INSULIN 07/13/2015 BRENDON PLUNKETT DO Ot 250. 01 07/13/2015 BRENDON PLUNKETT DO Ot 278. 00 07/13/2015 BRENDON PLUNKETT DO Ot 327. 23 07/13/2015 BRENDON PLUNKETT DO Ot 426. 3 07/13/2015 BRENDON PLUNKETT DO Ot 515 07/13/2015 BRENDON PLUNKETT DO Ot 516. 8 07/13/2015 BRENDON PLUNKETT DO Ot 785. 1 07/13/2015 ALICIA WALLIS, JUSTICE Parker Ot 250. 00 07/13/2015 ALICIA WALLIS, JUSTICE Parker Ot 401. 9 07/13/2015 JUSTICE VARGAS MD Ot 426. 3 07/13/2015 ALICIA WALLIS, JUSTICE Parker Ot 515 07/13/2015 JUSTICE VARGAS MD Ot 786. 50 07/13/2015 BRENDON PLUNKETT DO Ot 278. 00 07/13/2015 BRENDON PLUNKETT DO Ot 327. 23 07/13/2015 BRENDON PLUNKETT DO Ot 515 07/13/2015 BRENDON PLUNKETT DO Ot 786. 50 07/13/2015 BRENDON PLUNKETT DO Ot 793. 19 07/13/2015 JULIET MACE DO Ot 298.9 07/13/2015 JULIET MACE DO Ot 348.89 07/13/2015 Ot 782.2 07/13/2015 MONICA LANGE Ot 272.4 07/13/2015 MONICA LANGE Ot 401.9 07/13/2015 MONICA LANGE Ot 414.00 07/13/2015 MONICA LANGE Ot 786.50 07/13/2015 MADTATYANA Castellano SERVICE DISMANTLER Ot 722.10 07/13/2015 MADTATYANA Castellano SERVICE DISMANTLER Ot 722.52 07/13/2015 MADTATYANA Castellano SERVICE DISMANTLER Ot 272 .4 07/13/2015 MADTATYANA Castellano SERVICE DISMANTLER Ot 401 .1 07/13/2015 MADTATYANA Castellano SERVICE DISMANTLER Ot 414.00 07/13/2015 MADTATYANA Castellano SERVICE DISMANTLER Ot 786.50 07/22/2015 NONI CAMPBELL MD, Ot K62.1 RECTAL POLYP 07/22/2015 NONI CAMPBELL MD, Ot K64.1 SECOND DEGREE HEMORRHOIDS 07/22/2015 NONI CAMPBELL MD, Ot R19.4 CHANGE IN BOWEL HABIT 07/22/2015 NONI CAMPBELL MD, Ot R19.7 DIARRHEA, UNSPECIFIED 07/22/2015 NONI CAMPBELL MD, Ot Z80.0 FAMILY HISTORY OF MALIGNANT NEOPLASM OF 09/26/2015 NONI CAMPBELL MD, Ot R10.11 10/24/2015 JUSTICE VARGAS MD, Ot E11. 65 TYPE 2 DIABETES MELLITUS WITH HYPERGLYCE 10/24/2015 JUSTICE VARGAS MD, Ot E78. 5 HYPERLIPIDEMIA, UNSPECIFIED 10/24/2015 JUSTICE VARGAS MD, Ot F12. 10 CANNABIS ABUSE, UNCOMPLICATED 10/24/2015 JUSTICE VARGAS MD, Ot F17.210 NICOTINE DEPENDENCE, CIGARETTES, UNCOMPL 10/24/2015 JUSTICE VARGAS MD, Ot F32. 9 MAJOR DEPRESSIVE DISORDER, SINGLE EPISOD 10/24/2015 JUSTICE VARGAS MD, Ot F41. 9 ANXIETY DISORDER, UNSPECIFIED 10/24/2015 JUSTICE VARGAS MD, Ot I10 ESSENTIAL (PRIMARY) HYPERTENSION 10/24/2015 JUSTICE VARGAS MD, Ot I25. 10 ATHSCL HEART DISEASE OF [place] CORONARY 10/24/2015 JUSTICE VARGAS MD, Ot J44. 9 CHRONIC OBSTRUCTIVE PULMONARY DISEASE, U 10/24/2015 JUSTICE VARGAS MD, Ot K21. 9 GASTRO-ESOPHAGEAL REFLUX DISEASE WITHOUT 10/24/2015 JUSTICE VARGAS MD, Ot K44. 9 DIAPHRAGMATIC HERNIA WITHOUT OBSTRUCTION 10/24/2015 JUSTICE VARGAS MD Ot R07. 9 CHEST PAIN, UNSPECIFIED 10/24/2015 JUSTICE VARGAS MD Ot Z79. 4 BELLOWS TESTER (CURRENT) USE OF INSULIN 10/24/2015 JUSTICE VARGAS MD Ot Z91. 14 PATIENT'S OTHER NONCOMPLIANCE WITH MEDIC 01/02/2016 BRENDON PLUNKETT DO Ot 250. 01 DIAB YAHAIRA WO COMPL, TYPE I [JUVENILE TYP 01/02/2016 BRENDON PLUNKETT DO Ot 278. 00 OBESITY, NOS 01/02/2016 BRENDON PLUNKETT DO Ot 327. 23 OBSTRUCTIVE SLEEP APNEA (ADULT) (PEDIATR 01/02/2016 BRENDON PLUNKETT DO Ot 426. 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 8 ALVEOL PNEUMONOPATHY NEC 01/02/2016 BRENDON PLUNKETT DO Ot 785. 1 PALPITATIONS 01/02/2016 JUSTICE VARGAS MD Ot 250. 00 DIAB YAHAIRA WO COMPL, TYPE II OR UNSPEC TY 01/02/2016 JUSTICE VARGAS MD Ot 401. 9 HYPERTENSION NOS 01/02/2016 JUSTICE VARGAS MD Ot 426. 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 50 CHEST PAIN NOS 01/02/2016 BRENDON PLUNKETT DO Ot 278. 00 OBESITY, NOS 01/02/2016 BRENDON PLUNKETT DO Ot 327. 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 50 CHEST PAIN NOS 01/02/2016 BRENDON PLUNKETT DO Ot 793. 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 01/02/2016 Ot 782.2 LOCA L SUPRFICIAL SWELLNG 01/02/2016 MONICA LANGE Ot 272.4 HYPERLIPIDEMIA NEC/NOS 01/02/2016 MONICA LANGE Ot 401.9 HYPERTENSION NOS 01/02/2016 MONICA LANGE Ot 414.00 CORON ATHEROSCLER NOS TYPE VESSEL, NATIV 01/02/2016 MONICA LANGE Ot 786.50 CHEST PAIN NOS 01/02/2016 MADL, TATYANA L SERVICE DISMANTLER Ot 722.10 LUMBAR DISC DISPLACEMENT 01/02/2016 MADL, TATYANA L SERVICE DISMANTLER Ot 722.52 LUMB/LUMBOSAC DISC DEGEN 01/02/2016 MADL, TATYANA L SERVICE DISMANTLER Ot 272 .4 HYPERLIPIDEMIA NEC/NOS 01/02/2016 MADL, TATYANA L SERVICE DISMANTLER Ot 401 .1 BENIGN HYPERTENSION 01/02/2016 MADL, TATYANA L SERVICE DISMANTLER Ot 414.00 CORON ATHEROSCLER NOS TYPE VESSEL, NATIV 01/02/2016 MADL, TATYANA L SERVICE DISMANTLER Ot 786.50 CHEST PAIN NOS 01/02/2016 NONI CAMPBELL MD Ot Z01.81 8 ENCOUNTER FOR OTHER PREPROCEDURAL EXAMIN 01/02/2016 NONI CAMPBELL MD Ot R10.11 RIGHT UPPER QUADRANT PAIN 01/03/2016 MADL, TATYANA L SERVICE DISMANTLER Ot M79.601 PAIN IN RIGHT ARM 01/03/2016 MADL, TATYANA L SERVICE DISMANTLER Ot R20 .2 PARESTHESIA OF SKIN 02/07/2016 MADL, TATYANA L SERVICE DISMANTLER Ot M79.601 PAIN IN RIGHT ARM 02/07/2016 MADL, TATYANA L SERVICE DISMANTLER Ot R20 .2 PARESTHESIA OF SKIN 03/14/2016 NINFA VU MD Ot E11 .9 TYPE 2 DIABETES MELLITUS WITHOUT COMPLIC 03/14/2016 NINFA VU MD Ot G47.30 SLEEP APNEA, UNSPECIFIED 03/14/2016 NINFA VU MD Ot G57.91 UNSPECIFIED MONONEUROPATHY OF RIGHT LOWE 03/14/2016 NINFA VU MD Ot G57.92 UNSPECIFIED MONONEUROPATHY OF LEFT LOWER 03/14/2016 NINFA VU MD Ot I10 ESSENTIAL (PRIMARY) HYPERTENSION 03/14/2016 NINFA VU MD Ot I95 .2 HYPOTENSION DUE TO DRUGS 03/14/2016 NINFA VU MD Ot J44 .9 CHRONIC OBSTRUCTIVE PULMONARY DISEASE, U 03/14/2016 NINFA VU MD Ot K21 .9 GASTRO-ESOPHAGEAL REFLUX DISEASE WITHOUT 03/14/2016 NINFA VU MD Ot K44 .9 DIAPHRAGMATIC HERNIA WITHOUT OBSTRUCTION 03/14/2016 NINFA VU MD, Ot T46.7X5A ADVERSE EFFECT OF PERIPHERAL VASODILATOR 03/14/2016 NINFA VU MD Ot Z79 .4 BELLOWS TESTER (CURRENT) USE OF INSULIN 03/14/2016 NINFA VU MD Ot Z87.891 PERSONAL HISTORY OF NICOTINE DEPENDENCE 03/15/2016 BRENDON PLUNKETT DO Ot 250. 01 DIAB YAHAIRA WO COMPL, TYPE I [JUVENILE TYP 03/15/2016 BRENDON PLUNKETT DO Ot 278. 00 OBESITY, NOS 03/15/2016 BRENDON PLUNKETT DO Ot 327. 23 OBSTRUCTIVE SLEEP APNEA (ADULT) (PEDIATR 03/15/2016 BRENDON PLUNKETT DO Ot 426. 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 8 ALVEOL PNEUMONOPATHY NEC 03/15/2016 BRENDON PLUNKETT DO Ot 785. 1 PALPITATIONS 03/15/2016 JUSTICE VARGAS MD Ot 250. 00 DIAB YAHAIRA WO COMPL, TYPE II OR UNSPEC TY 03/15/2016 JUSTICE VARGAS MD Ot 401. 9 HYPERTENSION NOS 03/15/2016 JUSTICE VARGAS MD Ot 426. 3 LEFT BB BLOCK NEC 03/15/2016 JUSTICE VARGAS MD Ot 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 03/15/2016 JUSTICE VARGAS MD Ot 786. 50 CHEST PAIN NOS 03/15/2016 BRENDON PLUNKETT DO Ot 278. 00 OBESITY, NOS 03/15/2016 BRENDON PLUNKETT DO Ot 327. 23 OBSTRUCTIVE SLEEP APNEA (ADULT) (PEDIATR 03/15/2016 BRENDON PLUNKETT DO Ot 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 03/15/2016 BRENDON PLUNKETT DO Ot 786. 50 CHEST PAIN NOS 03/15/2016 BRENDON PLUNKETT DO Ot 793. 19 OTHER NONSPECIFIC ABNORMAL FINDING OF DEL 03/15/2016 JULIET MACE DO Ot 298.9 PSYCHOSIS NOS 03/15/2016 JULIET MACE DO Ot 348.89 OTHER CONDITIONS OF BRAIN 03/15/2016 Ot 782.2 LOCA L SUPRFICIAL SWELLNG 03/15/2016 MONICA LANGE Ot 272.4 HYPERLIPIDEMIA NEC/NOS 03/15/2016 MONICA LANGE Ot 401.9 HYPERTENSION NOS 03/15/2016 MONICA LANGE Ot 414.00 CORON ATHEROSCLER NOS TYPE VESSEL, NATIV 03/15/2016 MONICA LANGE Ot 786.50 CHEST PAIN NOS 03/15/2016 MADL, TATYANA L SERVICE DISMANTLER Ot 722.10 LUMBAR DISC DISPLACEMENT 03/15/2016 MADL, TATYANA L SERVICE DISMANTLER Ot 722.52 LUMB/LUMBOSAC DISC DEGEN 03/15/2016 MADL, TATYANA L SERVICE DISMANTLER Ot 272 .4 HYPERLIPIDEMIA NEC/NOS 03/15/2016 MADL, TATYANA L SERVICE DISMANTLER Ot 401 .1 BENIGN HYPERTENSION 03/15/2016 MADL, TATYANA L SERVICE DISMANTLER Ot 414.00 CORON ATHEROSCLER NOS TYPE VESSEL, NATIV 03/15/2016 MADL, TATYANA L SERVICE DISMANTLER Ot 786.50 CHEST PAIN NOS 03/15/2016 NONI CAMPBELL MD Ot Z01.81 8 ENCOUNTER FOR OTHER PREPROCEDURAL EXAMIN 03/15/2016 NONI CAMPBELL MD Ot R10.11 RIGHT UPPER QUADRANT PAIN 03/15/2016 MADL, TATYANA L SERVICE DISMANTLER Ot M79.601 PAIN IN RIGHT ARM 03/15/2016 MADL, TATYANA L SERVICE DISMANTLER Ot R20 .2 PARESTHESIA OF SKIN 05/29/2016 BRENDON PLUNKETT DO Ot 250. 01 DIAB YAHAIRA WO COMPL, TYPE I [JUVENILE TYP 05/29/2016 BRENDON PLUNKETT DO Ot 278. 00 OBESITY, NOS 05/29/2016 BRENDON PLUNKETT DO Ot 327. 23 OBSTRUCTIVE SLEEP APNEA (ADULT) (PEDIATR 05/29/2016 BRENDON PLUNKETT DO Ot 426. 3 LEFT BB BLOCK NEC 05/29/2016 BRENDON PLUNKETT DO Ot 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 05/29/2016 BRENDON PLUNKETT DO Ot 516. 8 ALVEOL PNEUMONOPATHY NEC 05/29/2016 BRENDON PLUNKETT DO Ot 785. 1 PALPITATIONS 05/29/2016 JUSTICE VARGAS MD Ot 250. 00 DIAB YAHAIRA WO COMPL, TYPE II OR UNSPEC TY 05/29/2016 JUSTICE VARGAS MD Ot 401. 9 HYPERTENSION NOS 05/29/2016 JUSTICE VARGAS MD Ot 426. 3 LEFT BB BLOCK NEC 05/29/2016 JUSTICE VARGAS MD Ot 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 05/29/2016 JUSTICE VARGAS MD Ot 786. 50 CHEST PAIN NOS 05/29/2016 BRENDON PLUNKETT DO Ot 278. 00 OBESITY, NOS 05/29/2016 BRENDON PLUNKETT DO Ot 327. 23 OBSTRUCTIVE SLEEP APNEA (ADULT) (PEDIATR 05/29/2016 BRENDON PLUNKETT DO Ot 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 05/29/2016 BRENDON PLUNKETT DO Ot 786. 50 CHEST PAIN NOS 05/29/2016 BRENDON PLUNKETT DO Ot 793. 19 OTHER NONSPECIFIC ABNORMAL FINDING OF DEL 05/29/2016 JULIET MACE DO Ot 298.9 PSYCHOSIS NOS 05/29/2016 JULIET MACE DO Ot 348.89 OTHER CONDITIONS OF BRAIN 05/29/2016 Ot 782.2 LOCA L SUPRFICIAL SWELLNG 05/29/2016 MONICA LANGE Ot 272.4 HYPERLIPIDEMIA NEC/NOS 05/29/2016 MONICA LANGE Ot 401.9 HYPERTENSION NOS 05/29/2016 MONICA LANGE Ot 414.00 CORON ATHEROSCLER NOS TYPE VESSEL, NATIV 05/29/2016 MONICA LANGE Ot 786.50 CHEST PAIN NOS 05/29/2016 MADL, TATYANA L SERVICE DISMANTLER Ot 722.10 LUMBAR DISC DISPLACEMENT 05/29/2016 MADL, TATYANA L SERVICE DISMANTLER Ot 722.52 LUMB/LUMBOSAC DISC DEGEN 05/29/2016 MADL, TATYANA L SERVICE DISMANTLER Ot 272 .4 HYPERLIPIDEMIA NEC/NOS 05/29/2016 MISTITATYANA SERVICE DISMANTLER Ot 401 .1 BENIGN HYPERTENSION 05/29/2016 MISTITATYANA SERVICE DISMANTLER Ot 414.00 CORON ATHEROSCLER NOS TYPE VESSEL, NATIV 05/29/2016 MISTI TATYANA Castellano SERVICE DISMANTLER Ot 786.50 CHEST PAIN NOS 05/29/2016 NONI CAMPBELL MD Ot Z01.81 8 ENCOUNTER FOR OTHER PREPROCEDURAL EXAMIN 05/29/2016 NONI CAMPBELL MD Ot R10.11 RIGHT UPPER QUADRANT PAIN 05/29/2016 MISTI TATYANA L SERVICE DISMANTLER Ot M79.601 PAIN IN RIGHT ARM 05/29/2016 TATYANA CHAPPELL SERVICE DISMANTLER Ot R20 .2 PARESTHESIA OF SKIN 05/29/2016 KIMBER WORRELL MD Ot M75.111 INCOMPLETE ROTATR-CUFF TEAR/RUPTR OF R S 05/30/2016 KIMBER WORRELL MD Ot M75.111 INCOMPLETE ROTATR-CUFF TEAR/RUPTR OF R S 06/14/2016 BRENDON PLUNKETT DO Ot R06. 00 DYSPNEA, UNSPECIFIED 06/15/2016 BRENDON PLUNKETT DO Ot 250. 01 DIAB YAHAIRA WO COMPL, TYPE I [JUVENILE TYP 06/15/2016 BRENDON PLUNKETT DO Ot 278. 00 OBESITY, NOS 06/15/2016 BRENDON PLUNKETT DO Ot 327. 23 OBSTRUCTIVE SLEEP APNEA (ADULT) (PEDIATR 06/15/2016 BRENDON PLUNKETT DO Ot 426. 3 LEFT BB BLOCK NEC 06/15/2016 BRENDON PLUNKETT DO Ot 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 06/15/2016 BRENDON PLUNKETT DO Ot 516. 8 ALVEOL PNEUMONOPATHY NEC 06/15/2016 BRENDON PLUNKETT DO Ot 785. 1 PALPITATIONS 06/15/2016 JUSTICE VARGAS MD Ot 250. 00 DIAB YAHAIRA WO COMPL, TYPE II OR UNSPEC TY 06/15/2016 JUSTICE VARGAS MD Ot 401. 9 HYPERTENSION NOS 06/15/2016 JUSTICE VARGAS MD Ot 426. 3 LEFT BB BLOCK NEC 06/15/2016 JUSTICE VARGAS MD Ot 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 06/15/2016 JUSTICE VARGAS MD Ot 786. 50 CHEST PAIN NOS 06/15/2016 KIARRA DO BRENDON Russell Ot 278. 00 OBESITY, NOS 06/15/2016 KIARRA LAGUNA BRENDON Russell Ot 327. 23 OBSTRUCTIVE SLEEP APNEA (ADULT) (PEDIATR 06/15/2016 KIARRA DO BRENDON Drew Ot 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 06/15/2016 KIARRA LAGUNA BRENDON Russell Ot 786. 50 CHEST PAIN NOS 06/15/2016 BRENDON PLUNKETT DO Ot 793. 19 OTHER NONSPECIFIC ABNORMAL FINDING OF DEL 06/15/2016 RODRI LAGUNA JULIET K Ot 298.9 PSYCHOSIS NOS 06/15/2016 NIURKA MACE DOA K Ot 348.89 OTHER CONDITIONS OF BRAIN 06/15/2016 Ot 782.2 LOCA L SUPRFICIAL SWELLNG 06/15/2016 MONICA LANGE Ot 272.4 HYPERLIPIDEMIA NEC/NOS 06/15/2016 MONICA LANGE Ot 401.9 HYPERTENSION NOS 06/15/2016 MONICA LANGE Ot 414.00 CORON ATHEROSCLER NOS TYPE VESSEL, NATIV 06/15/2016 MONICA LANGE Ot 786.50 CHEST PAIN NOS 06/15/2016 MADL, TATYANA L SERVICE DISMANTLER Ot 722.10 LUMBAR DISC DISPLACEMENT 06/15/2016 MADL, TATYANA L SERVICE DISMANTLER Ot 722.52 LUMB/LUMBOSAC DISC DEGEN 06/15/2016 MADL, TATYANA L SERVICE DISMANTLER Ot 272 .4 HYPERLIPIDEMIA NEC/NOS 06/15/2016 MADL, TATYANA L SERVICE DISMANTLER Ot 401 .1 BENIGN HYPERTENSION 06/15/2016 MADL, TATYANA L SERVICE DISMANTLER Ot 414.00 CORON ATHEROSCLER NOS TYPE VESSEL, NATIV 06/15/2016 MADL, TATYANA L SERVICE DISMANTLER Ot 786.50 CHEST PAIN NOS 06/15/2016 NONI CAMPBELL MD Ot Z01.81 8 ENCOUNTER FOR OTHER PREPROCEDURAL EXAMIN 06/15/2016 NONI CAMPBELL MD Ot R10.11 RIGHT UPPER QUADRANT PAIN 06/15/2016 MADL, TATYANA L SERVICE DISMANTLER Ot M79.601 PAIN IN RIGHT ARM 06/15/2016 MADL, TATYANA L SERVICE DISMANTLER Ot R20 .2 PARESTHESIA OF SKIN 06/15/2016 KIMBER WORRELL MD, Ot M75.111 INCOMPLETE ROTATR-CUFF TEAR/RUPTR OF R S 06/15/2016 BRENDON PLUNKETT DO Ot R06. 00 DYSPNEA, UNSPECIFIED 06/15/2016 BRENDON PLUNKETT DO Ot R06. 00 DYSPNEA, UNSPECIFIED 06/20/2016 KIMBER WORRELL MD Ot M75.111 INCOMPLETE ROTATR-CUFF TEAR/RUPTR OF R S 06/21/2016 KIMBER WORRELL MD Ot M75.111 INCOMPLETE ROTATR-CUFF TEAR/RUPTR OF R S 06/21/2016 KIMBER WORRELL MD Ot Z01.818 ENCOUNTER FOR OTHER PREPROCEDURAL EXAMIN 06/22/2016 KIMBER WORRELL MD, Ot M75.111 INCOMPLETE ROTATR-CUFF TEAR/RUPTR OF R S 06/22/2016 KIMBER WORRELL MD Ot Z01.818 ENCOUNTER FOR OTHER PREPROCEDURAL EXAMIN 06/27/2016 KIMBER WORRELL MD Ot E11.9 TYPE 2 DIABETES MELLITUS WITHOUT COMPLIC 06/27/2016 KIMBER WORRELL MD Ot E78.5 HYPERLIPIDEMIA, UNSPECIFIED 06/27/2016 KIMBER WORRELL MD Ot F17.210 NICOTINE DEPENDENCE, CIGARETTES, UNCOMPL 06/27/2016 KIMBER WORRELL MD Ot F32.9 MAJOR DEPRESSIVE DISORDER, SINGLE EPISOD 06/27/2016 KIMBER WORRELL MD Ot I1 0 ESSENTIAL (PRIMARY) HYPERTENSION 06/27/2016 KIMBER WORRELL MD Ot M75.111 INCOMPLETE ROTATR-CUFF TEAR/RUPTR OF R S 06/27/2016 KIMBER WORRELL MD Ot S43.431A SUPERIOR GLENOID [...] NICOTINE DEPENDENCE, CIGARETTES, UNCOMPL 06/29/2016 KIMBER WORRELL MD, Ot F32.9 MAJOR DEPRESSIVE DISORDER, SINGLE EPISOD 06/29/2016 KIMBER WORRELL MD, Ot I1 0 ESSENTIAL (PRIMARY) HYPERTENSION 06/29/2016 KIMBER WORRELL MD Ot M75.111 INCOMPLETE ROTATR-CUFF TEAR/RUPTR OF R S 06/29/2016 KIMBER WORRELL MD, Ot S43.431A SUPERIOR GLENOID LABRUM LESION OF RIGHT 06/29/2016 KIMBER WORRELL MD, Ot Z86.73 PRSNL HX OF TIA (TIA), AND CEREB INFRC W 07/05/2016 BRENDON PLUNKETT DO Ot R06. 00 DYSPNEA, UNSPECIFIED 07/10/2016 KIMBER WORRELL MD, Ot M25.511 PAIN IN RIGHT SHOULDER 07/10/2016 KIMBER WORRELL MD Ot Z47.89 ENCOUNTER FOR OTHER ORTHOPEDIC AFTERCARE 07/23/2016 BRENDON PLUNKETT DO, Ot R06. 00 DYSPNEA, UNSPECIFIED 07/31/2016 KIMBER WORRELL MD Ot M25.511 PAIN IN RIGHT SHOULDER 07/31/2016 KIMBER WORRELL MD Ot Z47.89 ENCOUNTER FOR OTHER ORTHOPEDIC AFTERCARE 08/07/2016 ADITYA APODACA APRN Ot G47.34 IDIO SLEEP RELATED NONOBSTRUCTIVE ALVEOL 08/07/2016 ADITYA APODACA APRN Ot R06.00 DYSPNEA, UNSPECIFIED 08/07/2016 ADITYA APODACA APRN Ot Z72.0 TOBACCO USE 08/14/2016 KIMBER WORRELL MD Ot M25.511 PAIN IN RIGHT SHOULDER 08/14/2016 KIMBER WORRELL MD Ot Z47.89 ENCOUNTER FOR OTHER ORTHOPEDIC AFTERCARE 08/15/2016 KIMBER WORRELL MD Ot M25.511 PAIN IN RIGHT SHOULDER 08/15/2016 KIMBER WORRELL MD Ot Z47.89 ENCOUNTER FOR OTHER ORTHOPEDIC AFTERCARE 08/29/2016 ADITYA APODACA APRN Ot G47.34 IDIO SLEEP RELATED NONOBSTRUCTIVE ALVEOL 08/29/2016 ADITYA APODACA APRN Ot R06.00 DYSPNEA, UNSPECIFIED 08/29/2016 ADITYA APODACA APRN Ot Z72.0 TOBACCO USE 09/05/2016 ADITYA APODACA APRN Ot G47.34 IDIO SLEEP RELATED NONOBSTRUCTIVE ALVEOL 09/05/2016 ADITYA APODACA APRN Ot R06.00 DYSPNEA, UNSPECIFIED 09/05/2016 ADITYA APODACA APRN Ot Z72.0 TOBACCO USE 09/24/2016 RONA ENRIQUE MD Ot E11 .9 TYPE 2 DIABETES MELLITUS WITHOUT COMPLIC 09/24/2016 RONA ENRIQUE MD Ot F17.210 NICOTINE DEPENDENCE, CIGARETTES, UNCOMPL 09/24/2016 RONA ENRIQUE MD Ot I10 ESSENTIAL (PRIMARY) HYPERTENSION 09/24/2016 RONA ENRIQUE MD Ot J06 .9 ACUTE UPPER RESPIRATORY INFECTION, UNSPE 09/24/2016 RONA ENRIQUE MD Ot J44 .9 CHRONIC OBSTRUCTIVE PULMONARY DISEASE, U 09/24/2016 RONA ENRIQUE MD Ot R05 COUGH 09/24/2016 RONA ENRIQUE MD Ot R42 DIZZINESS AND GIDDINESS 09/24/2016 RONA ENRIQUE MD Ot R91 .8 OTHER NONSPECIFIC ABNORMAL FINDING OF DEL 09/24/2016 RONA ENRIQUE MD Ot Z79 .4 PENITENTIARY (CURRENT) USE OF INSULIN 09/24/2016 RONA ENRIQUE MD Ot Z79.899 OTHER BELLOWS TESTER (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 THERAPY 09/25/2016 RONA ENRIQUE MD Ot E11 .9 TYPE 2 DIABETES MELLITUS WITHOUT COMPLIC 09/25/2016 RONA ENRIQUE MD Ot F17.210 NICOTINE DEPENDENCE, CIGARETTES, UNCOMPL 09/25/2016 RONA ENRIQUE MD Ot I10 ESSENTIAL (PRIMARY) HYPERTENSION 09/25/2016 RONA ENRIQUE MD Ot J06 .9 ACUTE UPPER RESPIRATORY INFECTION, UNSPE 09/25/2016 RONA ENRIQUE MD Ot J44 .9 CHRONIC OBSTRUCTIVE PULMONARY DISEASE, U 09/25/2016 RONA ENRIQUE MD Ot R05 COUGH 09/25/2016 RONA ENRIQUE MD Ot R42 DIZZINESS AND GIDDINESS 09/25/2016 RONA ENRIQUE MD Ot R91 .8 OTHER NONSPECIFIC ABNORMAL FINDING OF DEL 09/25/2016 RONA ENRIQUE MD Ot Z79 .4 BELLOWS TESTER (CURRENT) USE OF INSULIN 09/25/2016 RONA ENRIQUE MD Ot Z79.899 OTHER PENITENTIARY (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 THERAPY 09/25/2016 RONA ENRIQUE MD Ot E11 .9 TYPE 2 DIABETES MELLITUS WITHOUT COMPLIC 09/25/2016 RONA ENRIQUE MD Ot F17.210 NICOTINE DEPENDENCE, CIGARETTES, UNCOMPL 09/25/2016 RONA ENRIQUE MD Ot I10 ESSENTIAL (PRIMARY) HYPERTENSION 09/25/2016 RONA ENRIQUE MD Ot J06 .9 ACUTE UPPER RESPIRATORY INFECTION, UNSPE 09/25/2016 RONA ENRIQUE MD Ot J44 .9 CHRONIC OBSTRUCTIVE PULMONARY DISEASE, U 09/25/2016 RONA ENRIQUE MD Ot R05 COUGH 09/25/2016 RONA ENRIQUE MD Ot R42 DIZZINESS AND GIDDINESS 09/25/2016 RONA ENRIQUE MD Ot R91 .8 OTHER NONSPECIFIC ABNORMAL FINDING OF DEL 09/25/2016 RONA ENRIQUE MD Ot Z79 .4 PENITENTIARY (CURRENT) USE OF INSULIN 09/25/2016 RONA ENRIQUE MD Ot Z79.899 OTHER PENITENTIARY (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 THERAPY 09/26/2016 RONA ENRIQUE MD Ot E11 .9 TYPE 2 DIABETES MELLITUS WITHOUT COMPLIC 09/26/2016 RONA ENRIQUE MD Ot F17.210 NICOTINE DEPENDENCE, CIGARETTES, UNCOMPL 09/26/2016 RONA ENRIQUE MD Ot I10 ESSENTIAL (PRIMARY) HYPERTENSION 09/26/2016 RONA ENRIQUE MD Ot J06 .9 ACUTE UPPER RESPIRATORY INFECTION, UNSPE 09/26/2016 RONA NERIQUE MD Ot J44 .9 CHRONIC OBSTRUCTIVE PULMONARY DISEASE, U 09/26/2016 RONA ENRIQUE MD Ot R05 COUGH 09/26/2016 RONA ENRIQUE MD Ot R42 DIZZINESS AND GIDDINESS 09/26/2016 RONA ENRIQUE MD Ot R91 .8 OTHER NONSPECIFIC ABNORMAL FINDING OF DEL 09/26/2016 RONA ENRIQUE MD Ot Z79 .4 BELLOWS TESTER (CURRENT) USE OF INSULIN 09/26/2016 RONA ENRIQUE MD Ot Z79.899 OTHER BELLOWS TESTER (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 THERAPY 09/30/2016 RONA ENRIQUE MD Ot E11 .9 TYPE 2 DIABETES MELLITUS WITHOUT COMPLIC 09/30/2016 RONA ENRIQUE MD Ot F17.210 NICOTINE DEPENDENCE, CIGARETTES, UNCOMPL 09/30/2016 RONA ENRIQUE MD Ot I10 ESSENTIAL (PRIMARY) HYPERTENSION 09/30/2016 RONA ENRIQUE MD Ot J06 .9 ACUTE UPPER RESPIRATORY INFECTION, UNSPE 09/30/2016 RONA ENRIQUE MD Ot J44 .9 CHRONIC OBSTRUCTIVE PULMONARY DISEASE, U 09/30/2016 RONA ENRIQUE MD Ot R05 COUGH 09/30/2016 RONA ENRIQUE MD Ot R42 DIZZINESS AND GIDDINESS 09/30/2016 RONA ENRIQUE MD Ot R91 .8 OTHER NONSPECIFIC ABNORMAL FINDING OF DEL 09/30/2016 RONA ENRIQUE MD Ot Z79 .4 PENITENTIARY (CURRENT) USE OF INSULIN 09/30/2016 RONA ENRIQUE MD Ot Z79.899 OTHER PENITENTIARY (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 THERAPY 11/07/2016 ADITYA APODACA APRN Ot J20.9 ACUTE BRONCHITIS, UNSPECIFIED 11/07/2016 ADITYA APODACA APRN Ot 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 DISEASE, UNSPECIF 11/07/2016 ADITYA APODACA APRN Ot R06.00 DYSPNEA, UNSPECIFIED 11/07/2016 ADITYA APODACA APRN Ot R91.1 SOLITARY PULMONARY NODULE 11/07/2016 ADITYA APODACA APRN Ot Z72.0 TOBACCO USE 11/08/2016 IVÁN GRACE APRN Ot E11 .9 TYPE 2 DIABETES MELLITUS WITHOUT COMPLIC 11/08/2016 IVÁN GRACE APRN Ot F17.210 NICOTINE DEPENDENCE, CIGARETTES, UNCOMPL 11/08/2016 IVÁN GRACE APRN Ot F19.10 OTHER PSYCHOACTIVE SUBSTANCE ABUSE, UNCO 11/08/2016 IVÁN GRACE APRN Ot I10 ESSENTIAL (PRIMARY) HYPERTENSION 11/08/2016 IVÁN GRACE APRN Ot J44 .9 CHRONIC OBSTRUCTIVE PULMONARY DISEASE, U 11/08/2016 IVÁN GRACE APRN Ot R26 .9 UNSPECIFIED ABNORMALITIES OF GAIT AND MO 11/08/2016 IVÁN GRACE APRN Ot R47.81 SLURRED SPEECH 11/08/2016 IVÁN GRACE APRN Ot R51 HEADACHE 11/08/2016 IVÁN GRACE APRN Ot Z79 .4 PENITENTIARY (CURRENT) USE OF INSULIN 11/08/2016 IVÁN GRACE APRN Ot Z79.899 OTHER BELLOWS TESTER (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 THERAPY 11/16/2016 IVÁN GRACE APRN Ot E11 .9 TYPE 2 DIABETES MELLITUS WITHOUT COMPLIC 11/16/2016 IVÁN GRACE APRN Ot F17.210 NICOTINE DEPENDENCE, CIGARETTES, UNCOMPL 11/16/2016 IVÁN GRACE APRN Ot F19.10 OTHER PSYCHOACTIVE SUBSTANCE ABUSE, UNCO 11/16/2016 IVÁN GRACE APRN Ot I10 ESSENTIAL (PRIMARY) HYPERTENSION 11/16/2016 IVÁN GRACE APRN Ot J44 .9 CHRONIC OBSTRUCTIVE PULMONARY DISEASE, U 11/16/2016 IVÁN GRACE APRN Ot R26 .9 UNSPECIFIED ABNORMALITIES OF GAIT AND MO 11/16/2016 IVÁN GRACE APRN Ot R47.81 SLURRED SPEECH 11/16/2016 IVÁN GRACE APRN Ot R51 HEADACHE 11/16/2016 IVÁN GRACE APRN Ot Z79 .4 PENITENTIARY (CURRENT) USE OF INSULIN 11/16/2016 IVÁN GRACE APRN Ot Z79.899 OTHER PENITENTIARY (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 THERAPY 11/27/2016 ADITYA APODACA PATIENT COORDINATOR Ot J20.9 ACUTE BRONCHITIS, UNSPECIFIED 11/27/2016 ADITYA APODACA PATIENT COORDINATOR Ot 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 DISEASE, UNSPECIF 11/27/2016 ADITYA APODACA PATIENT COORDINATOR Ot R06.00 DYSPNEA, UNSPECIFIED 11/27/2016 ADITYA APODACA PATIENT COORDINATOR Ot R91.1 SOLITARY PULMONARY NODULE 11/27/2016 ADITYA APODACA PATIENT COORDINATOR Ot Z72.0 TOBACCO USE 12/03/2016 ADITYA APODACA PATIENT COORDINATOR Ot J20.9 ACUTE BRONCHITIS, UNSPECIFIED 12/03/2016 ADITYA APODACA PATIENT COORDINATOR Ot 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 DISEASE, UNSPECIF 12/03/2016 ADITAY APODACA PATIENT COORDINATOR Ot R06.00 DYSPNEA, UNSPECIFIED 12/03/2016 ADITYA APODACA PATIENT COORDINATOR Ot R91.1 SOLITARY PULMONARY NODULE 12/03/2016 ADITYA APODACA PATIENT COORDINATOR Ot Z72.0 TOBACCO USE 02/15/2017 JOANLTATYANA SERVICE DISMANTLER Ot M48.02 SPINAL STENOSIS, CERVICAL REGION 02/15/2017 JOANTATYANA Castellano SERVICE DISMANTLER Ot M79.622 PAIN IN LEFT UPPER ARM 02/15/2017 TATYANA CHAPPELL SERVICE DISMANTLER Ot Z98 .1 ARTHRODESIS STATUS 02/15/2017 JOANLTATYANA SERVICE DISMANTLER Ot M48.02 SPINAL STENOSIS, CERVICAL REGION 02/15/2017 JOANLTATYANA SERVICE DISMANTLER Ot M79.622 PAIN IN LEFT UPPER ARM 02/15/2017 JOANLTATYANA SERVICE DISMANTLER Ot Z98 .1 ARTHRODESIS STATUS 02/19/2017 ANAID WALLIS, KIMBER Le Ot M75.112 INCOMPLETE ROTATR-CUFF TEAR/RUPTR OF L S 03/05/2017 MADLTATYANA SERVICE DISMANTLER Ot M48.02 SPINAL STENOSIS, CERVICAL REGION 03/05/2017 JOANLTATYANA SERVICE DISMANTLER Ot M79.622 PAIN IN LEFT UPPER ARM 03/05/2017 TATYANA CHAPPELL SERVICE DISMANTLER Ot Z98 .1 ARTHRODESIS STATUS 05/31/2017 BRENDON PLUNKETT DO, Ot J84. 9 INTERSTITIAL PULMONARY DISEASE, UNSPECIF 05/31/2017 BRENDON PLUNKETT DO Ot R91. 8 OTHER NONSPECIFIC ABNORMAL FINDING OF DEL 05/31/2017 BRENDON PLUNKETT DO Ot Z72. 0 TOBACCO USE 07/03/2017 DALE BRANCH MD Ot D72.829 ELEVATED WHITE BLOOD CELL COUNT, UNSPECI 07/03/2017 DALE BRANCH MD Ot E11. 40 TYPE 2 DIABETES MELLITUS WITH DIABETIC N 07/03/2017 DALE BRANCH MD Ot E78. 00 PURE HYPERCHOLESTEROLEMIA, UNSPECIFIED 07/03/2017 DALE BRANCH MD Ot E86. 0 DEHYDRATION 07/03/2017 DALE BRANCH MD Ot F41. 9 ANXIETY DISORDER, UNSPECIFIED 07/03/2017 DALE BRANCH MD Ot I10 ESSENTIAL (PRIMARY) HYPERTENSION 07/03/2017 DALE BRANCH MD Ot J44. 9 CHRONIC OBSTRUCTIVE PULMONARY DISEASE, U 07/03/2017 DALE BRANCH MD Ot J84. 9 INTERSTITIAL PULMONARY DISEASE, UNSPECIF 07/03/2017 DALE BRANCH MD Ot K21. 9 GASTRO-ESOPHAGEAL REFLUX DISEASE WITHOUT 07/03/2017 DALE BRANCH MD Ot M47. 9 SPONDYLOSIS, UNSPECIFIED 07/03/2017 DALE BRANCH MD Ot R10. 31 RIGHT LOWER QUADRANT PAIN 07/03/2017 DALE BRANCH MD Ot T36.4X5A ADVERSE EFFECT OF TETRACYCLINES, INITIAL 07/03/2017 DALE BRANCH MD Ot T38.0X5A ADVERSE EFFECT OF GLUCOCORT/SYNTH ANALOG 07/03/2017 DALE BRANCH MD Ot Z79. 4 BELLOWS TESTER (CURRENT) USE OF INSULIN 07/03/2017 DALE BRANCH MD Ot Z80. 0 FAMILY HISTORY OF MALIGNANT NEOPLASM OF 07/03/2017 DALE BRANCH MD Ot Z82. 49 FAMILY HX OF ISCHEM HEART DIS AND OTH DI 07/03/2017 LILIBETH DURAN MD Ot E11.40 TYPE 2 DIABETES MELLITUS WITH DIABETIC N 07/03/2017 LILIBETH UDRAN MD, Ot E78.00 PURE HYPERCHOLESTEROLEMIA, UNSPECIFIED 07/03/2017 LILIBETH DURAN MD, Ot F41.9 ANXIETY DISORDER, UNSPECIFIED 07/03/2017 LILIBETH DURAN MD, Ot I10 ESSENTIAL (PRIMARY) HYPERTENSION 07/03/2017 LILIBETH DURAN MD, Ot J44.9 CHRONIC OBSTRUCTIVE PULMONARY DISEASE, U 07/03/2017 LILIBETH DURAN MD, Ot K21.9 GASTRO-ESOPHAGEAL REFLUX DISEASE WITHOUT 07/03/2017 LILIBETH DURAN MD, Ot M47.9 SPONDYLOSIS, UNSPECIFIED 07/03/2017 LILIBETH DURAN MD, Ot R10.9 UNSPECIFIED ABDOMINAL PAIN 07/03/2017 LILIBETH [...] ISCHEM HEART DIS AND OTH DI 07/03/2017 MADL, TATYANA L SERVICE DISMANTLER Ot 272 .4 HYPERLIPIDEMIA NEC/NOS 07/03/2017 TATYANA CHAPPELL SERVICE DISMANTLER Ot 401 .1 BENIGN HYPERTENSION 07/03/2017 TATYANA CHAPPELL SERVICE DISMANTLER Ot 414.00 CORON ATHEROSCLER NOS TYPE VESSEL, NATIV 07/03/2017 MISTITATYANA SERVICE DISMANTLER Ot 786.50 CHEST PAIN NOS 07/05/2017 LILIBETH DURAN MD, Ot E11.40 TYPE 2 DIABETES MELLITUS WITH DIABETIC N 07/05/2017 LILIBETH DURAN MD, Ot E78.00 PURE HYPERCHOLESTEROLEMIA, UNSPECIFIED 07/05/2017 LILIBETH DURAN MD, Ot F41.9 ANXIETY DISORDER, UNSPECIFIED 07/05/2017 LILIBETH DURAN MD Ot I10 ESSENTIAL (PRIMARY) HYPERTENSION 07/05/2017 LILIBETH DURAN MD, Ot J44.9 CHRONIC OBSTRUCTIVE PULMONARY DISEASE, U 07/05/2017 LILIBETH DURAN MD, Ot K21.9 GASTRO-ESOPHAGEAL REFLUX DISEASE WITHOUT 07/05/2017 LILIBETH DURAN MD, Ot M47.9 SPONDYLOSIS, UNSPECIFIED 07/05/2017 LILIBETH DURAN MD Ot R10.9 UNSPECIFIED ABDOMINAL PAIN 07/05/2017 LILIBETH DURAN MD, Ot T36.4X5A ADVERSE EFFECT OF TETRACYCLINES, INITIAL 07/05/2017 LILIBETH DURAN MD Ot T38.0X5A ADVERSE EFFECT OF GLUCOCORT/SYNTH ANALOG 07/05/2017 LILIBETH DURAN MD Ot T78.40XA ALLERGY, UNSPECIFIED, INITIAL ENCOUNTER 07/05/2017 LILIBETH DURAN MD Ot Z80.0 FAMILY HISTORY OF MALIGNANT NEOPLASM OF 07/05/2017 LILIBETH DURAN MD Ot Z82.49 FAMILY HX OF ISCHEM HEART DIS AND OTH DI 07/09/2017 DALE BRANCH MD Ot D72.829 ELEVATED WHITE BLOOD CELL COUNT, UNSPECI 07/09/2017 DALE BRANCH MD Ot E11. 40 TYPE 2 DIABETES MELLITUS WITH DIABETIC N 07/09/2017 DALE BRANCH MD Ot E78. 00 PURE HYPERCHOLESTEROLEMIA, UNSPECIFIED 07/09/2017 DALE BRANCH MD Ot E86. 0 DEHYDRATION 07/09/2017 DALE BRANCH MD Ot F41. 9 ANXIETY DISORDER, UNSPECIFIED 07/09/2017 DALE BRANCH MD Ot I10 ESSENTIAL (PRIMARY) HYPERTENSION 07/09/2017 DALE BRANCH MD Ot J84. 9 INTERSTITIAL PULMONARY DISEASE, UNSPECIF 07/09/2017 DALE BRANCH MD Ot M47. 9 SPONDYLOSIS, UNSPECIFIED 07/09/2017 DALE BRANCH MD Ot R10. 31 RIGHT LOWER QUADRANT PAIN 07/09/2017 DALE BRANCH MD Ot Z79. 4 BELLOWS TESTER (CURRENT) USE OF INSULIN 07/09/2017 DALE BRANCH MD Ot Z80. 0 FAMILY HISTORY OF MALIGNANT NEOPLASM OF 07/09/2017 DALE BRANCH MD Ot Z82. 49 FAMILY HX OF ISCHEM HEART DIS AND OTH DI 07/15/2017 IVÁN GRACE APRN Ot E11.40 TYPE 2 DIABETES MELLITUS WITH DIABETIC N 07/15/2017 IVÁN GRACE APRN Ot E78.00 PURE HYPERCHOLESTEROLEMIA, UNSPECIFIED 07/15/2017 IVÁN GRACE APRN Ot F12.90 CANNABIS USE, UNSPECIFIED, UNCOMPLICATED 07/15/2017 IVÁN GRACE APRN Ot F17.210 NICOTINE DEPENDENCE, CIGARETTES, UNCOMPL 07/15/2017 IVÁN GRACE APRN Ot F41 .9 ANXIETY DISORDER, UNSPECIFIED 07/15/2017 IVÁN GRACE APRN Ot I10 ESSENTIAL (PRIMARY) HYPERTENSION 07/15/2017 IVÁN GRACE APRN Ot J44 .9 CHRONIC OBSTRUCTIVE PULMONARY DISEASE, U 07/15/2017 IVÁN GRACE APRN Ot J84 .9 INTERSTITIAL PULMONARY DISEASE, UNSPECIF 07/15/2017 IVÁN GRACE APRN Ot K21 .9 GASTRO-ESOPHAGEAL REFLUX DISEASE WITHOUT 07/15/2017 IVÁN GRACE APRN Ot R06.00 DYSPNEA, UNSPECIFIED 07/15/2017 IVÁN GRACE APRN Ot Z79 .4 PENITENTIARY (CURRENT) USE OF INSULIN 07/15/2017 IVNÁ GRACE APRN Ot Z80 .0 FAMILY HISTORY OF MALIGNANT NEOPLASM OF 07/15/2017 IVÁN GRACE APRN Ot Z82.49 FAMILY HX OF ISCHEM HEART DIS AND OTH DI 07/15/2017 IVÁN GRACE APRN Ot Z87.01 PERSONAL HISTORY OF PNEUMONIA (RECURRENT 07/16/2017 DALE BRANCH MD Ot D72.829 ELEVATED WHITE BLOOD CELL COUNT, UNSPECI 07/16/2017 DALE BRANCH MD Ot E11. 40 TYPE 2 DIABETES MELLITUS WITH DIABETIC N 07/16/2017 DALE BRANCH MD Ot E78. 00 PURE HYPERCHOLESTEROLEMIA, UNSPECIFIED 07/16/2017 DALE BRANCH MD Ot E86. 0 DEHYDRATION 07/16/2017 DALE BRANCH MD Ot F41. 9 ANXIETY DISORDER, UNSPECIFIED 07/16/2017 DALE BRANCH MD Ot I10 ESSENTIAL (PRIMARY) HYPERTENSION 07/16/2017 DALE BRANCH MD Ot J84. 9 INTERSTITIAL PULMONARY DISEASE, UNSPECIF 07/16/2017 DALE BRANCH MD Ot M47. 9 SPONDYLOSIS, UNSPECIFIED 07/16/2017 DALE BRANCH MD Ot R10. 31 RIGHT LOWER QUADRANT PAIN 07/16/2017 DALE BRANCH MD Ot Z79. 4 BELLOWS TESTER (CURRENT) USE OF INSULIN 07/16/2017 DALE BRANCH MD Ot Z80. 0 FAMILY HISTORY OF MALIGNANT NEOPLASM OF 07/16/2017 DALE BRANCH MD Ot Z82. 49 FAMILY HX OF ISCHEM HEART DIS AND OTH DI 07/17/2017 IVÁN GRACE APRN Ot E11.40 TYPE 2 DIABETES MELLITUS WITH DIABETIC N 07/17/2017 IVÁN GRACE APRN Ot E78.00 PURE HYPERCHOLESTEROLEMIA, UNSPECIFIED 07/17/2017 IVÁN GRACE APRN Ot F12.90 CANNABIS USE, UNSPECIFIED, UNCOMPLICATED 07/17/2017 IVÁN GRACE APRN Ot F17.210 NICOTINE DEPENDENCE, CIGARETTES, UNCOMPL 07/17/2017 IVÁN GRACE APRN Ot F41 .9 ANXIETY DISORDER, UNSPECIFIED 07/17/2017 IVÁN GRACE APRN Ot I10 ESSENTIAL (PRIMARY) HYPERTENSION 07/17/2017 IVÁN GRACE APRN Ot J44 .9 CHRONIC OBSTRUCTIVE PULMONARY DISEASE, U 07/17/2017 IVÁN GRACE APRN Ot J84 .9 INTERSTITIAL PULMONARY DISEASE, UNSPECIF 07/17/2017 IVÁN GRACE APRN Ot K21 .9 GASTRO-ESOPHAGEAL REFLUX DISEASE WITHOUT 07/17/2017 IVÁN GRACE APRN Ot R06.00 DYSPNEA, UNSPECIFIED 07/17/2017 IVÁN GRACE APRN Ot Z79 .4 PENITENTIARY (CURRENT) USE OF INSULIN 07/17/2017 IVÁN GRACE PATIENT COORDINATOR Ot Z80 .0 FAMILY HISTORY OF MALIGNANT NEOPLASM OF 07/17/2017 IVÁN GRACE PATIENT COORDINATOR Ot Z82.49 FAMILY HX OF ISCHEM HEART DIS AND OTH DI 07/17/2017 IVÁN GRACE PATIENT COORDINATOR Ot Z87.01 PERSONAL HISTORY OF PNEUMONIA (RECURRENT 08/05/2017 MADL, TATYANA L SERVICE DISMANTLER Ot 272 .4 HYPERLIPIDEMIA NEC/NOS 08/05/2017 MADL, TATYANA L SERVICE DISMANTLER Ot 401 .1 BENIGN HYPERTENSION 08/05/2017 MADL, TATYANA L SERVICE DISMANTLER Ot 414.00 CORON ATHEROSCLER NOS TYPE VESSEL, NATIV 08/05/2017 MADL, TATYANA L SERVICE DISMANTLER Ot 786.50 CHEST PAIN NOS 08/06/2017 NINFA VU MD Ot E11.43 TYPE 2 DIABETES W DIABETIC AUTONOMIC (PO 08/06/2017 NINFA VU MD, Ot E78.00 PURE HYPERCHOLESTEROLEMIA, UNSPECIFIED 08/06/2017 NINFA VU MD Ot F12.90 CANNABIS USE, UNSPECIFIED, UNCOMPLICATED 08/06/2017 NINFA VU MD, Ot F17.210 NICOTINE DEPENDENCE, CIGARETTES, UNCOMPL 08/06/2017 NINFA VU MD, Ot F41 .9 ANXIETY DISORDER, UNSPECIFIED 08/06/2017 NINFA VU MD, Ot G47.30 SLEEP APNEA, UNSPECIFIED 08/06/2017 NINFA VU MD, Ot I10 ESSENTIAL (PRIMARY) HYPERTENSION 08/06/2017 NINFA VU MD Ot I44 .7 LEFT BUNDLE-BRANCH BLOCK, UNSPECIFIED 08/06/2017 NINFA VU MD Ot I95 .9 HYPOTENSION, UNSPECIFIED 08/06/2017 NINFA VU MD, Ot J44 .9 CHRONIC OBSTRUCTIVE PULMONARY DISEASE, U 08/06/2017 NINFA VU MD, Ot J84 .9 INTERSTITIAL PULMONARY DISEASE, UNSPECIF 08/06/2017 NINFA VU MD, Ot K21 .9 GASTRO-ESOPHAGEAL REFLUX DISEASE WITHOUT 08/06/2017 NINFA VU MD, Ot R00 .1 BRADYCARDIA, UNSPECIFIED 08/06/2017 NINFA VU MD, Ot R42 DIZZINESS AND GIDDINESS 08/06/2017 HORACE MD, NINFA A Ot T40.7X1A POISONING BY CANNABIS (DERIVATIVES), ACC 08/06/2017 NINFA VU MD Ot T42.4X1A POISONING BY BENZODIAZEPINES, ACCIDENTAL 08/06/2017 HORACE WALLIS, NINFA Pace Ot Z79 .4 BELLOWS TESTER (CURRENT) USE OF INSULIN 09/18/2017 ADITYA APODACA PATIENT COORDINATOR Ot J20.9 ACUTE BRONCHITIS, UNSPECIFIED 09/18/2017 ADITYA APODACA PATIENT COORDINATOR Ot 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 DISEASE, UNSPECIF 09/18/2017 LEEANN APODACAINE Nisha PATIENT COORDINATOR Ot M35.00 SICCA SYNDROME, UNSPECIFIED 09/18/2017 LEEANN APODACAINE Nisha PATIENT COORDINATOR Ot R06.00 DYSPNEA, UNSPECIFIED 09/24/2017 ADITYA APODACA PATIENT COORDINATOR Ot 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 DISEASE, UNSPECIF 09/24/2017 LEEANN APODACAINE Nisha PATIENT COORDINATOR Ot R06.00 DYSPNEA, UNSPECIFIED 09/24/2017 LEEANN APODACAINE E PATIENT COORDINATOR Ot R09.02 HYPOXEMIA 09/24/2017 ADITYA APODACA PATIENT COORDINATOR Ot Z72.0 TOBACCO USE 10/15/2017 LEEANN APODACAINE E PATIENT COORDINATOR Ot 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 DISEASE, UNSPECIF 10/15/2017 ADITYA APODACA PATIENT COORDINATOR Ot M35.00 SICCA SYNDROME, UNSPECIFIED 10/15/2017 ADITYA APODACA PATIENT COORDINATOR Ot R06.00 DYSPNEA, UNSPECIFIED 10/17/2017 ILIA WALLIS, NERIS Jeffery Ot E11.40 TYPE 2 DIABETES MELLITUS WITH DIABETIC N 10/17/2017 ILIA WALLIS, NERIS Jfefery Ot E78.00 PURE HYPERCHOLESTEROLEMIA, UNSPECIFIED 10/17/2017 NERIS MORILLO MD Ot F12.90 CANNABIS USE, UNSPECIFIED, UNCOMPLICATED 10/17/2017 NERIS MORILLO MD Ot F41.9 ANXIETY DISORDER, UNSPECIFIED 10/17/2017 NERIS MORILLO MD Ot I10 ESSENTIAL (PRIMARY) HYPERTENSION 10/17/2017 NERIS MORILLO MD Ot I65.23 OCCLUSION AND STENOSIS OF BILATERAL CHAHAL 10/17/2017 NERIS MORILLO MD Ot J44.9 CHRONIC OBSTRUCTIVE PULMONARY DISEASE, U 10/17/2017 NERIS MORILLO MD Ot K21.9 GASTRO-ESOPHAGEAL REFLUX DISEASE WITHOUT 10/17/2017 NERIS MORILLO MD, Ot R07.89 OTHER CHEST PAIN 10/17/2017 NERIS MORILLO MD, Ot R42 DIZZINESS AND GIDDINESS 10/17/2017 NERIS MORILLO MD, Ot Z79.4 BELLOWS TESTER (CURRENT) USE OF INSULIN 10/17/2017 NERIS MORILLO MD, Ot Z79.52 BELLOWS TESTER (CURRENT) USE OF SYSTEMIC STER 10/17/2017 NERIS MORILLO MD, Ot Z87.09 PERSONAL HISTORY OF OTHER DISEASES OF TH 10/17/2017 NERIS MORILLO MD, Ot Z87.891 PERSONAL HISTORY OF NICOTINE DEPENDENCE 10/17/2017 NERIS MORILLO MD, Ot Z88.1 ALLERGY STATUS TO OTHER ANTIBIOTIC AGENT 10/23/2017 NERIS MORILLO MD Ot E11.40 TYPE 2 DIABETES MELLITUS WITH DIABETIC N 10/23/2017 NERIS MORILLO MD, Ot E78.00 PURE HYPERCHOLESTEROLEMIA, UNSPECIFIED 10/23/2017 NERIS MORILLO MD, Ot F12.90 CANNABIS USE, UNSPECIFIED, UNCOMPLICATED 10/23/2017 NERIS MORILLO MD, Ot F41.9 ANXIETY DISORDER, UNSPECIFIED 10/23/2017 NERIS MORILLO MD, Ot I10 ESSENTIAL (PRIMARY) HYPERTENSION 10/23/2017 NERIS MORILLO MD Ot I65.23 OCCLUSION AND STENOSIS OF BILATERAL CHAHAL 10/23/2017 NERIS MORILLO MD, Ot J44.9 CHRONIC OBSTRUCTIVE PULMONARY DISEASE, U 10/23/2017 NERIS MORILLO MD, Ot K21.9 GASTRO-ESOPHAGEAL REFLUX DISEASE WITHOUT 10/23/2017 NERIS MORILLO MD, Ot R07.89 OTHER CHEST PAIN 10/23/2017 NERIS MORILLO MD, Ot R42 DIZZINESS AND GIDDINESS 10/23/2017 NERIS MORILLO MD, Ot Z79.4 PENITENTIARY (CURRENT) USE OF INSULIN 10/23/2017 NERIS MORILLO MD, Ot Z79.52 BELLOWS TESTER (CURRENT) USE OF SYSTEMIC STER 10/23/2017 NERIS [...] I10 ESSENTIAL (PRIMARY) HYPERTENSION 10/25/2017 NERIS MORILLO MD Ot I65.23 OCCLUSION AND STENOSIS OF BILATERAL CHAHAL 10/25/2017 NERIS MORILLO MD, Ot J44.9 CHRONIC OBSTRUCTIVE PULMONARY DISEASE, U 10/25/2017 NERIS MORILLO MD, Ot K21.9 GASTRO-ESOPHAGEAL REFLUX DISEASE WITHOUT 10/25/2017 NERIS MORILLO MD Ot R07.89 OTHER CHEST PAIN 10/25/2017 NERIS MORILLO MD, Ot R42 DIZZINESS AND GIDDINESS 10/25/2017 NERIS MORILLO MD Ot Z79.4 BELLOWS TESTER (CURRENT) USE OF INSULIN 10/25/2017 NERIS MORILLO MD Ot Z79.52 PENITENTIARY (CURRENT) USE OF SYSTEMIC STER 10/25/2017 NERIS MORILLO MD, Ot Z87.09 PERSONAL HISTORY OF OTHER DISEASES OF 10/25/2017 NERIS MORILLO MD, Ot Z87.891 PERSONAL HISTORY OF NICOTINE DEPENDENCE 10/25/2017 NERIS MORILLO MD, Ot Z88.1 ALLERGY STATUS TO OTHER ANTIBIOTIC AGENT 10/30/2017 ADITYA APODACA APRN Ot 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 DISEASE, UNSPECIF 10/30/2017 CONSTANZA, ADITYA E PATIENT COORDINATOR Ot M35.00 SICCA SYNDROME, UNSPECIFIED 10/30/2017 CONSTANZA, ADITYA E PATIENT COORDINATOR Ot R06.00 DYSPNEA, UNSPECIFIED 11/01/2017 CONSTANZA, ADITYA E PATIENT COORDINATOR Ot 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 DISEASE, UNSPECIF 11/01/2017 CONSTANZA, ADITYA E PATIENT COORDINATOR Ot R06.00 DYSPNEA, UNSPECIFIED 11/01/2017 CONSTANZA, ADITYA E PATIENT COORDINATOR Ot R09.02 HYPOXEMIA 11/01/2017 CONSTANZA, ADITYA E PATIENT COORDINATOR Ot Z72.0 TOBACCO USE 11/11/2017 CONSTANZA, ADITYA E PATIENT COORDINATOR Ot 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 DISEASE, UNSPECIF 11/11/2017 CONSTANZA, ADITYA E PATIENT COORDINATOR Ot M35.00 SICCA SYNDROME, UNSPECIFIED 11/11/2017 CONSTANZA, ADITYA E PATIENT COORDINATOR Ot R06.00 DYSPNEA, UNSPECIFIED 11/11/2017 CONSTANZALEEANN MCKEONINE E PATIENT COORDINATOR Ot 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 DISEASE, UNSPECIF 11/11/2017 CONSTANZA, ADITYA E PATIENT COORDINATOR Ot M35.00 SICCA SYNDROME, UNSPECIFIED 11/11/2017 CONSTANZA, ADITYA E PATIENT COORDINATOR Ot R06.00 DYSPNEA, UNSPECIFIED 11/11/2017 CONSTANZA, ADITYA E PATIENT COORDINATOR Ot 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 DISEASE, UNSPECIF 11/11/2017 CONSTANZA, ADITYA E PATIENT COORDINATOR Ot M35.00 SICCA SYNDROME, UNSPECIFIED 11/11/2017 CONSTANZA, ADITYA E PATIENT COORDINATOR Ot R06.00 DYSPNEA, UNSPECIFIED 11/11/2017 Ot 723.1 CERV ICALGIA 11/11/2017 Ot V45.4 ARTH RODESIS STATUS 11/11/2017 Ot 723.9 NECK DISORDER/SYMPT NOS 11/11/2017 PATY LATHAM MD Ot 250.90 [...] HYPOXEMIA 11/11/2017 MAGGY WALLIS, MICHELLE Parker Ot 786. 05 SHORTNESS OF BREATH 11/11/2017 MAGGY WALLIS, MICHELLE Parker Ot 793. 19 OTHER NONSPECIFIC ABNORMAL FINDING OF DEL 11/11/2017 BRENDON PLUNKETT DO Ot 250. 01 DIAB YAHAIRA WO COMPL, TYPE I [JUVENILE TYP 11/11/2017 BRENDON PLUNKETT DO Ot 278. 00 OBESITY, NOS 11/11/2017 BRENDON PLUNKETT DO Ot 327. 23 OBSTRUCTIVE SLEEP APNEA (ADULT) (PEDIATR 11/11/2017 BRENDON PLUNKETT DO Ot 426. 3 LEFT BB BLOCK NEC 11/11/2017 BRENDON PLUNKETT DO Ot 494. 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 8 ALVEOL PNEUMONOPATHY NEC 11/11/2017 BRENDON PLUNKETT DO Ot 785. 1 PALPITATIONS 11/11/2017 BRENDON PLUNKETT DO Ot 786. 05 SHORTNESS OF BREATH 11/11/2017 ALICIA WALLIS, JUSTICE Parker Ot 250. 00 DIAB YAHAIRA WO COMPL, TYPE II OR UNSPEC TY 11/11/2017 ALICIA WALLIS, JUSTICE Parker Ot 401. 9 HYPERTENSION NOS 11/11/2017 JUSTICE VARGAS MD Ot 426. 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 50 CHEST PAIN NOS 11/11/2017 BRENDON PLUNKETT DO Ot V72. 84 EXAM PRE-OPERATIVE NOS 11/11/2017 BRENDON PLUNKETT DO Ot V72. 84 EXAM PRE-OPERATIVE NOS 11/11/2017 BRENDON PLUNKETT DO Ot V72. 84 EXAM PRE-OPERATIVE NOS 11/11/2017 ADITYA APODACA APRN Ot 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 DISEASE, UNSPECIF 11/11/2017 ADITYA APODACA APRN Ot M35.00 SICCA SYNDROME, UNSPECIFIED 11/11/2017 ADITYA APODACA APRN Ot R06.00 DYSPNEA, UNSPECIFIED 11/19/2017 ADITYA APODACA APRN Ot 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 DISEASE, UNSPECIF 11/19/2017 CONSTANZA ADITYA Cameron PATIENT COORDINATOR Ot R06.00 DYSPNEA, UNSPECIFIED 11/19/2017 ADITYA APODACA PATIENT COORDINATOR Ot R09.02 HYPOXEMIA 11/19/2017 ADITYA APODACA PATIENT COORDINATOR Ot Z72.0 TOBACCO USE 11/19/2017 ADITYA APODACA PATIENT COORDINATOR Ot 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 DISEASE, UNSPECIF 11/19/2017 ADITYA APODACA PATIENT COORDINATOR Ot R06.00 DYSPNEA, UNSPECIFIED 11/19/2017 ADITYA APODACA PATIENT COORDINATOR Ot R09.02 HYPOXEMIA 11/19/2017 ADITYA APODACA PATIENT COORDINATOR Ot Z72.0 TOBACCO USE 11/19/2017 Ot 723.1 CERV ICALGIA 11/19/2017 Ot V45.4 ARTH RODESIS STATUS 11/19/2017 Ot 723.9 NECK DISORDER/SYMPT NOS 11/19/2017 NOA WALLIS, PATY Russell Ot [...] HYPOXEMIA 11/19/2017 MAGGY WALLIS, MICHELLE Parker Ot 786. 05 SHORTNESS OF BREATH 11/19/2017 MICHELLE WINTER MD Ot 793. 19 OTHER NONSPECIFIC ABNORMAL FINDING OF DEL 11/19/2017 BRENDON PLUNKETT DO Ot 250. 01 DIAB YAHAIRA WO COMPL, TYPE I [JUVENILE TYP 11/19/2017 BRENDON PLUNKETT DO Ot 278. 00 OBESITY, NOS 11/19/2017 BRENDON PLUNKETT DO Ot 327. 23 OBSTRUCTIVE SLEEP APNEA (ADULT) (PEDIATR 11/19/2017 BRENDON PLUNKETT DO Ot 426. 3 LEFT BB BLOCK NEC 11/19/2017 BRENDON PLUNKETT DO Ot 494. 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 8 ALVEOL PNEUMONOPATHY NEC 11/19/2017 BRENDON PLUNKETT DO Ot 785. 1 PALPITATIONS 11/19/2017 BRENDON PLUNKETT DO Ot 786. 05 SHORTNESS OF BREATH 11/19/2017 ALICIA WALLIS, JUSTICE Parker Ot 250. 00 DIAB YAHAIRA WO COMPL, TYPE II OR UNSPEC TY 11/19/2017 ALICIA WALLIS, JUSTICE Parker Ot 401. 9 HYPERTENSION NOS 11/19/2017 JUSTICE VARGAS MD Ot 426. 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 50 CHEST PAIN NOS 11/19/2017 BRENODN PLUNKETT DO Ot V72. 84 EXAM PRE-OPERATIVE NOS 11/19/2017 BRENDON PLUNKETT DO Ot V72. 84 EXAM PRE-OPERATIVE NOS 11/19/2017 BRENDON PLUNKETT DO Ot V72. 84 EXAM PRE-OPERATIVE NOS 11/19/2017 ADITYA APODACA PATIENT COORDINATOR Ot 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 DISEASE, UNSPECIF 11/19/2017 ADITYA APODACA PATIENT COORDINATOR Ot R06.00 DYSPNEA, UNSPECIFIED 11/19/2017 ADITYA APODACA PATIENT COORDINATOR Ot R09.02 HYPOXEMIA 11/19/2017 ADITYA APODACA PATIENT COORDINATOR Ot Z72.0 TOBACCO USE 11/19/2017 ADITYA APODACA PATIENT COORDINATOR Ot 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 DISEASE, UNSPECIF 11/19/2017 ADITYA APODACA PATIENT COORDINATOR Ot M35.00 SICCA SYNDROME, UNSPECIFIED 11/19/2017 ADITYA APODACA PATIENT COORDINATOR Ot R06.00 DYSPNEA, UNSPECIFIED 12/02/2017 ADITYA APODACA PATIENT COORDINATOR Ot 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 DISEASE, UNSPECIF 12/02/2017 ADITYA APODACA PATIENT COORDINATOR Ot M35.00 SICCA SYNDROME, UNSPECIFIED 12/02/2017 ADITYA APODACA PATIENT COORDINATOR Ot R06.00 DYSPNEA, UNSPECIFIED 12/06/2017 ADITYA APODACA PATIENT COORDINATOR Ot 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 DISEASE, UNSPECIF 12/06/2017 CONSTANZA, ADITYA E PATIENT COORDINATOR Ot R06.00 DYSPNEA, UNSPECIFIED 12/06/2017 CONSTANZA, ADITYA E PATIENT COORDINATOR Ot R09.02 HYPOXEMIA 12/06/2017 CONSTANZA, ADITYA E PATIENT COORDINATOR Ot Z72.0 TOBACCO USE 12/10/2017 CONSTANZA, ADITYA E PATIENT COORDINATOR Ot 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 DISEASE, UNSPECIF 12/10/2017 CONSTANZA, ADITYA E PATIENT COORDINATOR Ot R06.00 DYSPNEA, UNSPECIFIED 12/10/2017 CONSTANZA, ADITYA E PATIENT COORDINATOR Ot R09.02 HYPOXEMIA 12/10/2017 CONSTANZA, ADITYA E PATIENT COORDINATOR Ot Z72.0 TOBACCO USE 12/22/2017 CONSTANZA, ADITYA E PATIENT COORDINATOR Ot 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 DISEASE, UNSPECIF 12/22/2017 CONSTANZA, ADITYA E PATIENT COORDINATOR Ot R06.00 DYSPNEA, UNSPECIFIED 12/22/2017 CONSTANZA, ADITYA E PATIENT COORDINATOR Ot R09.02 HYPOXEMIA 12/22/2017 CONSTAZNA, ADITYA E PATIENT COORDINATOR Ot Z72.0 TOBACCO USE 12/24/2017 CONSTANZA, ADITYA E PATIENT COORDINATOR Ot 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 DISEASE, UNSPECIF 12/24/2017 CONSTANZA, ADITYA E PATIENT COORDINATOR Ot R06.00 DYSPNEA, UNSPECIFIED 12/24/2017 CONSTANZA, ADITYA E PATIENT COORDINATOR Ot R09.02 HYPOXEMIA 12/24/2017 CONSTANZA, ADITYA E PATIENT COORDINATOR Ot Z72.0 TOBACCO USE 12/29/2017 CONSTANZA, ADITYA E PATIENT COORDINATOR Ot 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 DISEASE, UNSPECIF 12/29/2017 CONSTANZA, ADITYA E PATIENT COORDINATOR Ot R06.00 DYSPNEA, UNSPECIFIED 12/29/2017 CONSTANZA, ADITYA E PATIENT COORDINATOR Ot R09.02 HYPOXEMIA 12/29/2017 CONSTANZA, ADITYA E PATIENT COORDINATOR Ot Z72.0 TOBACCO USE 05/23/2018 Ot 723.9 NECK DISORDER/SYMPT NOS 05/23/2018 NOA WALLIS, PATY Russell Ot 250.90 DIAB W UNSPEC COMPL, TYPE II OR UNSPEC T 05/23/2018 NOA WALLIS, PATY Russell Ot 426.3 LEFT BB BLOCK NEC 05/23/2018 NOA WALLIS, PATY Russell Ot 428.20 UNSPEC SYSTOLIC HRT FAILURE 05/23/2018 PATY LATHAM MD Ot 723.9 NECK DISORDER/SYMPT NOS 05/23/2018 PATY LATHAM MD Ot 786.05 SHORTNESS OF BREATH 05/23/2018 PATY LATHAM MD Ot 799.02 HYPOXEMIA 05/23/2018 MAGGY WALLIS, MICHELLE Parker Ot 786. 05 SHORTNESS OF BREATH 05/23/2018 MAGGY WALLIS, MICHELLE Parker Ot 793. 19 OTHER NONSPECIFIC ABNORMAL FINDING OF DEL 05/23/2018 BRENDON PLUNKETT DO Ot 250. 01 DIAB YAHAIRA WO COMPL, TYPE I [JUVENILE TYP 05/23/2018 BRENDON PLUNKETT DO Ot 278. 00 OBESITY, NOS 05/23/2018 BRENDON PLUNKETT DO Ot 327. 23 OBSTRUCTIVE SLEEP APNEA (ADULT) (PEDIATR 05/23/2018 BRENDON PLUNKETT DO Ot 426. 3 LEFT BB BLOCK NEC 05/23/2018 BRENDON PLUNKETT DO Ot 494. 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 8 ALVEOL PNEUMONOPATHY NEC 05/23/2018 BRENDON PLUNKETT DO Ot 785. 1 PALPITATIONS 05/23/2018 BRENDON PLUNKETT DO Ot 786. 05 SHORTNESS OF BREATH 05/23/2018 ALICIA WALLIS, JUSTICE Parker Ot 250. 00 DIAB YAHAIRA WO COMPL, TYPE II OR UNSPEC TY 05/23/2018 ALICIA WALLIS, JUSTICE Parker Ot 401. 9 HYPERTENSION NOS 05/23/2018 JUSTICE VARGAS MD Ot 426. 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 50 CHEST PAIN NOS 05/23/2018 BRENDON PLUNKETT DO Ot V72. 84 EXAM PRE-OPERATIVE NOS 05/23/2018 BRENDON PLUNKETT DO Ot V72. 84 EXAM PRE-OPERATIVE NOS 05/23/2018 BRENDON PLUNKETT DO Ot V72. 84 EXAM PRE-OPERATIVE NOS 05/23/2018 ADITYA APODACA APRN Ot 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 DISEASE, UNSPECIF 05/23/2018 ADITYA APODACA APRN Ot M35.00 SICCA SYNDROME, UNSPECIFIED 05/23/2018 CONSTANZA, ADITYA E PATIENT COORDINATOR Ot R06.00 DYSPNEA, UNSPECIFIED 05/23/2018 ADITYA APODACA PATIENT COORDINATOR Ot 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 DISEASE, UNSPECIF 05/23/2018 ADITYA APODACA PATIENT COORDINATOR Ot R06.00 DYSPNEA, UNSPECIFIED 05/23/2018 ADTIYA APODACA PATIENT COORDINATOR Ot R09.02 HYPOXEMIA 05/23/2018 ADITYA APODACA PATIENT COORDINATOR Ot Z72.0 TOBACCO USE 07/16/2018 WESLEYLIZZETTE PATIENT COORDINATOR Ot E11.621 TYPE 2 DIABETES MELLITUS WITH FOOT ULCER 07/16/2018 WESLEY LIZZETTE R PATIENT COORDINATOR Ot L97.522 NON-PRS CHRONIC ULCER OTH PRT LEFT FOOT 07/16/2018 WESLEYLIZZETTE PATIENT COORDINATOR Ot Z72.0 TOBACCO USE 07/17/2018 WESLEYLIZZETTE PATIENT COORDINATOR Ot E11.621 TYPE 2 DIABETES MELLITUS WITH FOOT ULCER 07/17/2018 WESLEYLIZZETTE PATIENT COORDINATOR Ot L97.512 NON-PRS CHRONIC ULCER OTH PRT RIGHT FOOT 07/17/2018 LIZZETTE OLSON PATIENT COORDINATOR Ot Z72.0 TOBACCO USE 07/22/2018 BRENDON PLUNKETT DO Ot Z01.818 ENCOUNTER FOR OTHER PREPROCEDURAL EXAMIN 07/22/2018 KIMBER STAPLES MD Ot E11.621 TYPE 2 DIABETES MELLITUS WITH FOOT ULCER 07/22/2018 KIMBER STAPLES MD Ot L97.529 NON-PRESSURE CHRONIC ULCER OTH PRT LEFT 07/23/2018 BRENDON PLUNKETT DO Ot Z01.818 ENCOUNTER FOR OTHER PREPROCEDURAL EXAMIN 07/23/2018 BRENDON PLUNKETT DO Ot E11. 40 TYPE 2 DIABETES MELLITUS WITH DIABETIC N 07/23/2018 BRENDON PLUNKETT DO Ot F17.210 NICOTINE DEPENDENCE, CIGARETTES, UNCOMPL 07/23/2018 BRENDON PLUNKETT DO Ot F41. 9 ANXIETY DISORDER, UNSPECIFIED 07/23/2018 BRENDON PLUNKETT DO Ot G47. 33 OBSTRUCTIVE SLEEP APNEA (ADULT) (PEDIATR 07/23/2018 BRENDON PLUNKETT DO Ot I10 ESSENTIAL (PRIMARY) HYPERTENSION 07/23/2018 BRENDON PLUNKETT DO, Ot I20. 9 ANGINA PECTORIS, UNSPECIFIED 07/23/2018 BRENDON PLUNKETT DO Ot J44. 9 CHRONIC OBSTRUCTIVE PULMONARY DISEASE, U 07/23/2018 BRENDON PLUNKETT DO, Ot J84. 9 INTERSTITIAL PULMONARY DISEASE, UNSPECIF 07/23/2018 BRENDON PLUNKETT DO, Ot K21. 9 GASTRO-ESOPHAGEAL REFLUX DISEASE WITHOUT 07/23/2018 BRENDON PLUNKETT DO, Ot M35. 00 SICCA SYNDROME, UNSPECIFIED 07/23/2018 BRENDON PLUNKETT DO Ot R09. 02 HYPOXEMIA 07/23/2018 BRENDON PLUNKETT DO, Ot R91. 1 SOLITARY PULMONARY NODULE 07/23/2018 BRENDON PLUNKETT DO Ot Z79. 4 PENITENTIARY (CURRENT) USE OF INSULIN 07/23/2018 BRENDON PLUNKETT DO, Ot Z79. 82 BELLOWS TESTER (CURRENT) USE OF ASPIRIN 07/23/2018 BRENDON PLUNKETT DO, Ot Z79.899 OTHER BELLOWS TESTER (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 THERAPY 07/23/2018 BRENDON PLUNKETT DO Ot Z86. 19 PERSONAL HISTORY OF OTHER INFECTIOUS AND 07/23/2018 KIMBER STAPLES MD Ot E11.621 TYPE 2 DIABETES MELLITUS WITH FOOT ULCER 07/23/2018 KIMBER STAPLES MD Ot E11.69 TYPE 2 DIABETES MELLITUS WITH OTHER SPEC 07/23/2018 KIMBER STAPLES MD, Ot L97.514 NON-PRS CHRONIC ULCER OTH PRT RIGHT FOOT 07/23/2018 KIMBER STAPLES MD Ot M86.472 CHRONIC OSTEOMYELITIS W DRAINING SINUS, 07/23/2018 KIMBER STAPLES MD Ot Z72 .0 TOBACCO USE 07/24/2018 BRENDON PLUNKETT DO Ot E11. 40 TYPE 2 DIABETES MELLITUS WITH DIABETIC N 07/24/2018 BRENDON PLUNKETT DO Ot F17.210 NICOTINE DEPENDENCE, CIGARETTES, UNCOMPL 07/24/2018 BRENDON PLUNKETT DO Ot F41. 9 ANXIETY DISORDER, UNSPECIFIED 07/24/2018 BRENDON PLUNKETT DO Ot G47. 33 OBSTRUCTIVE SLEEP APNEA (ADULT) (PEDIATR 07/24/2018 BRENDON PLUNKETT DO Ot I10 ESSENTIAL (PRIMARY) HYPERTENSION 07/24/2018 BRENDON PLUNKETT DO, Ot I20. 9 ANGINA PECTORIS, UNSPECIFIED 07/24/2018 BRENDON PLUNKETT DO, Ot J44. 9 CHRONIC OBSTRUCTIVE PULMONARY DISEASE, U 07/24/2018 BRENDON PLUNKETT DO, Ot J84. 9 INTERSTITIAL PULMONARY DISEASE, UNSPECIF 07/24/2018 BRENDON PLUNKETT DO Ot K21. 9 GASTRO-ESOPHAGEAL REFLUX DISEASE WITHOUT 07/24/2018 BRENDON PLUNKETT DO Ot M35. 00 SICCA SYNDROME, UNSPECIFIED 07/24/2018 BRENDON PLUNKETT DO Ot R09. 02 HYPOXEMIA 07/24/2018 BRENDON PLUNKETT DO Ot R91. 1 SOLITARY PULMONARY NODULE 07/24/2018 KIARRABRENDON GRIMALDO DO Ot Z79. 4 BELLOWS TESTER (CURRENT) USE OF INSULIN 07/24/2018 KIARRA LAGUNA BRENDON Russell Ot Z79. 82 BELLOWS TESTER (CURRENT) USE OF ASPIRIN 07/24/2018 KIARRABRENDON GRIMALDO DO Ot Z79.899 OTHER PENITENTIARY (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 THERAPY 07/24/2018 KIARRA BRENDON Russell Ot Z86. 19 PERSONAL HISTORY OF OTHER INFECTIOUS AND 07/29/2018 LIZZETTE OLSON APRN Ot E11.621 TYPE 2 DIABETES MELLITUS WITH FOOT ULCER 07/29/2018 LIZZETTE OLSON PATIENT COORDINATOR Ot L97.522 NON-PRS CHRONIC ULCER OTH PRT LEFT FOOT 07/29/2018 LIZZETTE OLSON APRN Ot Z72.0 TOBACCO USE 07/29/2018 LIZZETTE OLSON APRN Ot E11.621 TYPE 2 DIABETES MELLITUS WITH FOOT ULCER 07/29/2018 LIZZETTE OLSON APRN Ot L97.512 NON-PRS CHRONIC ULCER OTH PRT RIGHT FOOT 07/29/2018 LIZZETTE OLSON PATIENT COORDINATOR Ot Z72.0 TOBACCO USE 07/30/2018 LIZZETTE OLSON PATIENT COORDINATOR Ot E11.621 TYPE 2 DIABETES MELLITUS WITH FOOT ULCER 07/30/2018 LIZZETTE OLSON PATIENT COORDINATOR Ot L97.514 NON-PRS CHRONIC ULCER OTH PRT RIGHT FOOT 07/30/2018 LIZZETTE OLSON PATIENT COORDINATOR Ot M86.472 CHRONIC OSTEOMYELITIS W DRAINING SINUS, 07/30/2018 LIZZETTE OLSON PATIENT COORDINATOR Ot Z72.0 TOBACCO USE 07/31/2018 ADITYA APODACA PATIENT COORDINATOR Ot R91.8 OTHER NONSPECIFIC ABNORMAL FINDING OF DEL 07/31/2018 ADITYA APODACA PATIENT COORDINATOR Ot R91.8 OTHER NONSPECIFIC ABNORMAL FINDING OF DEL 08/05/2018 BEL WALLIS, KIMBER Harris Ot E11.621 TYPE 2 DIABETES MELLITUS WITH FOOT ULCER 08/05/2018 KIMBER STAPLES MD Ot L97.529 NON-PRESSURE CHRONIC ULCER OTH PRT LEFT 08/05/2018 KIMBER STAPLES MD Ot E11.621 TYPE 2 DIABETES MELLITUS WITH FOOT ULCER 08/05/2018 KIMBER STAPLES MD Ot E11.69 TYPE 2 DIABETES MELLITUS WITH OTHER SPEC 08/05/2018 KIMBER STAPLES MD Ot L97.514 NON-PRS CHRONIC ULCER OTH PRT RIGHT FOOT 08/05/2018 KIMBER STAPLES MD Ot M86.472 CHRONIC OSTEOMYELITIS W DRAINING SINUS, 08/05/2018 KIMBER STAPLES MD Ot Z72 .0 TOBACCO USE 08/05/2018 LIZZETTE OLSON APRN Ot E11.621 TYPE 2 DIABETES MELLITUS WITH FOOT ULCER 08/05/2018 LIZZETTE OLSON APRN Ot L97.524 NON-PRS CHRONIC ULCER OTH PRT LEFT FOOT 08/05/2018 LIZZETTE OLSON APRN Ot M86.472 CHRONIC OSTEOMYELITIS W DRAINING SINUS, 08/05/2018 LIZZETTE OLSON PATIENT COORDINATOR Ot Z72.0 TOBACCO USE 08/11/2018 MADL, TATYANA L SERVICE DISMANTLER Ot 272 .4 HYPERLIPIDEMIA NEC/NOS 08/11/2018 MADL, TATYANA L SERVICE DISMANTLER Ot 401 .1 BENIGN HYPERTENSION 08/11/2018 MADL, TATYANA L SERVICE DISMANTLER Ot 414.00 CORON ATHEROSCLER NOS TYPE VESSEL, NATIV 08/11/2018 MADL, TATYANA L SERVICE DISMANTLER Ot 786.50 CHEST PAIN NOS 08/11/2018 ADITYA APODACA PATIENT COORDINATOR Ot 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 DISEASE, UNSPECIF 08/11/2018 ADITYA APODACA PATIENT COORDINATOR Ot R06.00 DYSPNEA, UNSPECIFIED 08/11/2018 ADITYA APODACA PATIENT COORDINATOR Ot R09.02 HYPOXEMIA 08/11/2018 ADITYA APODACA APRN Ot Z72.0 TOBACCO USE 08/11/2018 BRENDON PLUNKETT DO Ot Z01.818 ENCOUNTER FOR OTHER PREPROCEDURAL EXAMIN 08/11/2018 BRENDON PLUNKETT DO Ot Z01.818 ENCOUNTER FOR OTHER PREPROCEDURAL EXAMIN 08/12/2018 ADITYA APODACA APRN Ot R91.8 OTHER NONSPECIFIC ABNORMAL FINDING OF DEL 08/12/2018 LIZZETTE OLSON PATIENT COORDINATOR Ot E11.621 TYPE 2 DIABETES MELLITUS WITH FOOT ULCER 08/12/2018 LIZZETTE OLSON APRN Ot L97.514 NON-PRS CHRONIC ULCER OTH PRT RIGHT FOOT 08/12/2018 LIZZETTE OLSON APRN Ot M86.472 CHRONIC OSTEOMYELITIS W DRAINING SINUS, 08/12/2018 LIZZETTE OLSON APRN Ot Z72.0 TOBACCO USE 08/13/2018 LIZZETTE OLSON APRN Ot E11.621 TYPE 2 DIABETES MELLITUS WITH FOOT ULCER 08/13/2018 LIZZETTE OLSON APRN Ot L97.524 NON-PRS CHRONIC ULCER OTH PRT LEFT FOOT 08/13/2018 LIZZETTE OLSON APRN Ot M86.472 CHRONIC OSTEOMYELITIS W DRAINING SINUS, 08/13/2018 LIZZETTE OLSON APRN Ot Z72.0 TOBACCO USE 08/13/2018 BRENDON PLUNKETT DO Ot F17.200 NICOTINE DEPENDENCE, UNSPECIFIED, UNCOMP 08/13/2018 BRENDON PLUNKETT DO Ot G47. 33 OBSTRUCTIVE SLEEP APNEA (ADULT) (PEDIATR 08/13/2018 BRENDON PLUNKETT DO Ot J44. 9 CHRONIC OBSTRUCTIVE PULMONARY DISEASE, U 08/13/2018 BRENDON PLUNKETT DO Ot J84. 9 INTERSTITIAL PULMONARY DISEASE, UNSPECIF 08/13/2018 BRENDON PLUNKETT DO Ot M35. 00 SICCA SYNDROME, UNSPECIFIED 08/13/2018 BRENDON PLUNKETT DO Ot R91. 8 OTHER NONSPECIFIC ABNORMAL FINDING OF DEL 08/13/2018 BRENDON PLUNKETT DO Ot Z79.899 OTHER BELLOWS TESTER (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 THERAPY 08/15/2018 ADITYA APODACA APRN Ot R04.2 HEMOPTYSIS 08/15/2018 ADITYA APODACA APRN Ot R06.02 SHORTNESS OF BREATH 08/15/2018 ADITYA APODACA APRN Ot Z98.890 OTHER SPECIFIED POSTPROCEDURAL STATES 08/15/2018 LIZZETTE OLSON APRN Ot E11.621 TYPE 2 DIABETES MELLITUS WITH FOOT ULCER 08/15/2018 LIZZETTE OLSON APRN Ot L97.524 NON-PRS CHRONIC ULCER OTH PRT LEFT FOOT 08/15/2018 LIZZETTE OLSON APRN Ot M86.472 CHRONIC OSTEOMYELITIS W DRAINING SINUS, 08/15/2018 LIZZETTE OLSON APRN Ot Z72.0 TOBACCO USE 08/19/2018 LIZZETTE OLSON APRN Ot E11.621 TYPE 2 DIABETES MELLITUS WITH FOOT ULCER 08/19/2018 LIZZETTE OLSON APRN Ot L97.524 NON-PRS CHRONIC ULCER OTH PRT LEFT FOOT 08/19/2018 LIZZETTE OLSON APRN Ot M86.472 CHRONIC OSTEOMYELITIS W DRAINING SINUS, 08/19/2018 LIZZETTE OLSON APRN Ot Z72.0 TOBACCO USE 08/21/2018 BRENDON PLUNKETT DO, Ot E11. 40 TYPE 2 DIABETES MELLITUS WITH DIABETIC N 08/21/2018 BRENDON PLUNKETT DO Ot F17.210 NICOTINE DEPENDENCE, CIGARETTES, UNCOMPL 08/21/2018 BRENDON PLUNKETT DO, Ot F41. 9 ANXIETY DISORDER, UNSPECIFIED 08/21/2018 BRENDON PLUNKETT DO, Ot G47. 33 OBSTRUCTIVE SLEEP APNEA (ADULT) (PEDIATR 08/21/2018 BRENDON PLUNKETT DO Ot I10 ESSENTIAL (PRIMARY) HYPERTENSION 08/21/2018 BRENDON PLUNKETT DO, Ot I20. 9 ANGINA PECTORIS, UNSPECIFIED 08/21/2018 BRENDON PLUNKETT DO, Ot J44. 9 CHRONIC OBSTRUCTIVE PULMONARY DISEASE, U 08/21/2018 BERNDON PLUNKETT DO, Ot J84. 9 INTERSTITIAL PULMONARY DISEASE, UNSPECIF 08/21/2018 BRENDON PLUNKETT DO, Ot K21. 9 GASTRO-ESOPHAGEAL REFLUX DISEASE WITHOUT 08/21/2018 BRENDON PLUNKETT DO Ot M35. 00 SICCA SYNDROME, UNSPECIFIED 08/21/2018 BRENDON PLUNKETT DO Ot R09. 02 HYPOXEMIA 08/21/2018 BRENDON PLUNKETT DO Ot R91. 1 SOLITARY PULMONARY NODULE 08/21/2018 BRENDON PLUNKETT DO, Ot Z79. 4 PENITENTIARY (CURRENT) USE OF INSULIN 08/21/2018 BRENDON PLUNKETT DO, Ot Z79. 82 BELLOWS TESTER (CURRENT) USE OF ASPIRIN 08/21/2018 BRENDON PLUNKETT DO, Ot Z79.899 OTHER PENITENTIARY (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 THERAPY 08/21/2018 BRENDON PLUNKETT DO, Ot Z86. 19 PERSONAL HISTORY OF OTHER INFECTIOUS AND 08/21/2018 LIZZETTE OLSON APRN Ot E11.621 TYPE 2 DIABETES MELLITUS WITH FOOT ULCER 08/21/2018 LIZZETTE OLSON APRN Ot L97.522 NON-PRS CHRONIC ULCER OTH PRT LEFT FOOT 08/21/2018 LIZZETTE OLSON APRN Ot Z72.0 TOBACCO USE 08/22/2018 DAVID SANTAMARIA MD Ot E11.621 TYPE 2 DIABETES MELLITUS WITH FOOT ULCER 08/22/2018 DAVID SANTAMARIA MD, Ot L97.522 NON- PRS CHRONIC ULCER OTH PRT LEFT FOOT 08/22/2018 DAVID SANTAMARIA MD Ot M86.472 CHRONIC OSTEOMYELITIS W DRAINING SINUS, 08/22/2018 DAVID SANTAMARIA MD, Ot Z72.0 TOBACCO USE 08/22/2018 ADITYA APODACA APRN Ot R04.2 HEMOPTYSIS 08/22/2018 ADITYA APODACA APRN Ot R06.02 SHORTNESS OF BREATH 08/22/2018 ADITYA APODACA APRN Ot Z98.890 OTHER SPECIFIED POSTPROCEDURAL STATES 08/26/2018 BRENDON PLUNKETT DO, Ot E11. 40 TYPE 2 DIABETES MELLITUS WITH DIABETIC N 08/26/2018 BRENDON PLUNKETT DO Ot F17.210 NICOTINE DEPENDENCE, CIGARETTES, UNCOMPL 08/26/2018 BRENDON PLUNKETT DO Ot F41. 9 ANXIETY DISORDER, UNSPECIFIED 08/26/2018 BRENDON PLUNKETT DO Ot G47. 33 OBSTRUCTIVE SLEEP APNEA (ADULT) (PEDIATR 08/26/2018 BRENDON PLUNKETT DO Ot I10 ESSENTIAL (PRIMARY) HYPERTENSION 08/26/2018 BRENDON PLUNKETT DO Ot I20. 9 ANGINA PECTORIS, UNSPECIFIED 08/26/2018 BRENDON PLUNKETT DO, Ot J44. 9 CHRONIC OBSTRUCTIVE PULMONARY DISEASE, U 08/26/2018 BRENDON PLUNKETT DO, Ot J84. 9 INTERSTITIAL PULMONARY DISEASE, UNSPECIF 08/26/2018 BRENDON PLUNKETT DO Ot K21. 9 GASTRO-ESOPHAGEAL REFLUX DISEASE WITHOUT 08/26/2018 BRENDON PLUNKETT DO Ot M35. 00 SICCA SYNDROME, UNSPECIFIED 08/26/2018 BRENDON PLUNKETT DO Ot R09. 02 HYPOXEMIA 08/26/2018 BRENDON PLUNKETT DO Ot R91. 1 SOLITARY PULMONARY NODULE 08/26/2018 BRENDON PLUNKETT DO Ot Z79. 4 BELLOWS TESTER (CURRENT) USE OF INSULIN 08/26/2018 BRENDON PLUNKETT DO Ot Z79. 82 BELLOWS TESTER (CURRENT) USE OF ASPIRIN 08/26/2018 BRENDON PLUNKETT DO Ot Z79.899 OTHER PENITENTIARY (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 THERAPY 08/26/2018 BRENDON PLUNKETT DO Ot Z86. 19 PERSONAL HISTORY OF OTHER INFECTIOUS AND 08/26/2018 LIZZETTE OLSON APRN Ot E11.621 TYPE 2 DIABETES MELLITUS WITH FOOT ULCER 08/26/2018 LIZZETTE OLSON APRN Ot L97.524 NON-PRS CHRONIC ULCER OTH PRT LEFT FOOT 08/26/2018 LIZZETTE OLSON PATIENT COORDINATOR Ot M86.472 CHRONIC OSTEOMYELITIS W DRAINING SINUS, 08/26/2018 LIZZETTE OLSON PATIENT COORDINATOR Ot Z72.0 TOBACCO USE 08/27/2018 LIZZETTE OLSON APRN Ot E11.621 TYPE 2 DIABETES MELLITUS WITH FOOT ULCER 08/27/2018 LIZZETTE OLSON PATIENT COORDINATOR Ot L97.522 NON-PRS CHRONIC ULCER OTH PRT LEFT FOOT 08/27/2018 LIZZETTE OLSON APRN Ot M86.472 CHRONIC OSTEOMYELITIS W DRAINING SINUS, 08/27/2018 LIZZETTE OLSON PATIENT COORDINATOR Ot Z72.0 TOBACCO USE 09/01/2018 LIZZETTE OLSON APRN Ot E11.621 TYPE 2 DIABETES MELLITUS WITH FOOT ULCER 09/01/2018 LIZZETTE OLSON APRN Ot L97.524 NON-PRS CHRONIC ULCER OTH PRT LEFT FOOT 09/01/2018 LIZZETTE OLSON PATIENT COORDINATOR Ot M86.472 CHRONIC OSTEOMYELITIS W DRAINING SINUS, 09/01/2018 LIZZETTE OLSON APRN Ot Z72.0 TOBACCO USE 09/01/2018 DAVID SANTAMARIA MD Ot E11.621 TYPE 2 DIABETES MELLITUS WITH FOOT ULCER 09/01/2018 DAVID SANTAMARIA MD Ot L97.522 NON- PRS CHRONIC ULCER OTH PRT LEFT FOOT 09/01/2018 DAVID SANTAMARIA MD Ot M86.472 CHRONIC OSTEOMYELITIS W DRAINING SINUS, 09/01/2018 DAVID SANTAMARIA MD Ot Z72.0 TOBACCO USE 09/03/2018 LIZZETTE OLSON PATIENT COORDINATOR Ot E11.621 TYPE 2 DIABETES MELLITUS WITH FOOT ULCER 09/03/2018 LIZZETTE OLSON PATIENT COORDINATOR Ot L97.522 NON-PRS CHRONIC ULCER OTH PRT LEFT FOOT 09/03/2018 LIZZETTE OLSON APRN Ot M86.472 CHRONIC OSTEOMYELITIS W DRAINING SINUS, 09/03/2018 LIZZETTE OLSON APRN Ot Z72.0 TOBACCO USE 09/03/2018 BRENDON PLUNKETT DO Ot F17.200 NICOTINE DEPENDENCE, UNSPECIFIED, UNCOMP 09/03/2018 BRENDON PLUNKETT DO Ot G47. 33 OBSTRUCTIVE SLEEP APNEA (ADULT) (PEDIATR 09/03/2018 BRENDON PLUNKETT DO Ot J44. 9 CHRONIC OBSTRUCTIVE PULMONARY DISEASE, U 09/03/2018 BRENDON PLUNKETT DO Ot J84. 9 INTERSTITIAL PULMONARY DISEASE, UNSPECIF 09/03/2018 BRENDON PLUNKETT DO Ot M35. 00 SICCA SYNDROME, UNSPECIFIED 09/03/2018 BRENDON PLUNKETT DO Ot R91. 8 OTHER NONSPECIFIC ABNORMAL FINDING OF DEL 09/03/2018 BRENDON PLUNKETT DO Ot Z79.899 OTHER PENITENTIARY (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 THERAPY 09/10/2018 LIZZETTE OLSON PATIENT COORDINATOR Ot E11.621 TYPE 2 DIABETES MELLITUS WITH FOOT ULCER 09/10/2018 LIZZETTE OLSON PATIENT COORDINATOR Ot L97.522 NON-PRS CHRONIC ULCER OTH PRT LEFT FOOT 09/10/2018 LIZZETTE OLSON APRN Ot M86.472 CHRONIC OSTEOMYELITIS W DRAINING SINUS, 09/10/2018 LIZZETTE OLSON APRN Ot Z72.0 TOBACCO USE 09/15/2018 LIZZETTE OLSON APRN Ot E11.621 TYPE 2 DIABETES MELLITUS WITH FOOT ULCER 09/15/2018 LIZZETTE OLSON APRN Ot L97.522 NON-PRS CHRONIC ULCER OTH PRT LEFT FOOT 09/15/2018 LIZZETTE OLSON APRN Ot M86.472 CHRONIC OSTEOMYELITIS W DRAINING SINUS, 09/15/2018 LIZZETTE OLSON APRN Ot Z72.0 TOBACCO USE 09/18/2018 LIZZETTE OLSON APRN Ot E11.621 TYPE 2 DIABETES MELLITUS WITH FOOT ULCER 09/18/2018 LIZZETTE OLSON PATIENT COORDINATOR Ot L97.522 NON-PRS CHRONIC ULCER OTH PRT LEFT FOOT 09/18/2018 LIZZETTE OLSON APRN Ot M86.472 CHRONIC OSTEOMYELITIS W DRAINING SINUS, 09/18/2018 LIZZETTE OLSON APRN Ot Z72.0 TOBACCO USE 09/24/2018 LIZZETTE OLSON PATIENT COORDINATOR Ot E11.621 TYPE 2 DIABETES MELLITUS WITH FOOT ULCER 09/24/2018 LIZZETTE OLSON PATIENT COORDINATOR Ot L97.522 NON-PRS CHRONIC ULCER OTH PRT LEFT FOOT 09/24/2018 LIZZETTE OLSON PATIENT COORDINATOR Ot M86.472 CHRONIC OSTEOMYELITIS W DRAINING SINUS, 09/24/2018 LIZZETTE OLSON PATIENT COORDINATOR Ot Z72.0 TOBACCO USE 09/29/2018 LIZZETTE OLSON PATIENT COORDINATOR Ot E11.621 TYPE 2 DIABETES MELLITUS WITH FOOT ULCER 09/29/2018 LIZZETTE OLSON PATIENT COORDINATOR Ot L97.522 NON-PRS CHRONIC ULCER OTH PRT LEFT FOOT 09/29/2018 LIZZETTE OLSON APRN Ot M86.472 CHRONIC OSTEOMYELITIS W DRAINING SINUS, 09/29/2018 LIZZETTE OLSON PATIENT COORDINATOR Ot Z72.0 TOBACCO USE 10/01/2018 BEL WALLIS, KIMBER Harris Ot E11.621 TYPE 2 DIABETES MELLITUS WITH FOOT ULCER 10/01/2018 KIMBER STAPLES MD Ot L97.522 NON-PRS CHRONIC ULCER OTH PRT LEFT FOOT 10/01/2018 KIMBER STAPLES MD Ot M86.472 CHRONIC OSTEOMYELITIS W DRAINING SINUS, 10/01/2018 KIMBER STAPLES MD Ot Z72 .0 TOBACCO USE 10/08/2018 LIZZETTE OLSON PATIENT COORDINATOR Ot E11.621 TYPE 2 DIABETES MELLITUS WITH FOOT ULCER 10/08/2018 LIZZETTE OLSON PATIENT COORDINATOR Ot L97.522 NON-PRS CHRONIC ULCER OTH PRT LEFT FOOT 10/08/2018 LIZZETTE OLSON APRN Ot M86.472 CHRONIC OSTEOMYELITIS W DRAINING SINUS, 10/08/2018 LIZZETTE OLSON PATIENT COORDINATOR Ot Z72.0 TOBACCO USE 10/15/2018 LIZZETTE OLSON PATIENT COORDINATOR Ot E11.621 TYPE 2 DIABETES MELLITUS WITH FOOT ULCER 10/15/2018 LIZZETTE OLSON PATIENT COORDINATOR Ot L97.522 NON-PRS CHRONIC ULCER OTH PRT LEFT FOOT 10/15/2018 LIZZETTE OLSON PATIENT COORDINATOR Ot M86.472 CHRONIC OSTEOMYELITIS W DRAINING SINUS, 10/15/2018 LIZZETTE OLSON PATIENT COORDINATOR Ot Z72.0 TOBACCO USE 10/20/2018 LIZZETTE OLSON PATIENT COORDINATOR Ot E11.621 TYPE 2 DIABETES MELLITUS WITH FOOT ULCER 10/20/2018 LIZZETTE OLSON PATIENT COORDINATOR Ot L97.522 NON-PRS CHRONIC ULCER OTH PRT LEFT FOOT 10/20/2018 LIZZETTE OLSON PATIENT COORDINATOR Ot M86.472 CHRONIC OSTEOMYELITIS W DRAINING SINUS, 10/20/2018 LIZZETTE OLSON PATIENT COORDINATOR Ot Z72.0 TOBACCO USE 10/22/2018 LIZZETTE OLSON PATIENT COORDINATOR Ot E11.621 TYPE 2 DIABETES MELLITUS WITH FOOT ULCER 10/22/2018 LIZZETTE OLSON PATIENT COORDINATOR Ot L97.522 NON-PRS CHRONIC ULCER OTH PRT LEFT FOOT 10/22/2018 LIZZETTE OLSON PATIENT COORDINATOR Ot M86.472 CHRONIC OSTEOMYELITIS W DRAINING SINUS, 10/22/2018 LIZZETTE OLSON PATIENT COORDINATOR Ot Z72.0 TOBACCO USE 10/22/2018 KIMBER STAPLES MD Ot E11.621 TYPE 2 DIABETES MELLITUS WITH FOOT ULCER 10/22/2018 KIMBER STAPLES MD Ot L97.522 NON-PRS CHRONIC ULCER OTH PRT LEFT FOOT 10/22/2018 KIMBER STAPLES MD Ot M86.472 CHRONIC OSTEOMYELITIS W DRAINING SINUS, 10/22/2018 KIMBER STAPLES MD Ot Z72 .0 TOBACCO USE 10/22/2018 LIZZETTE OLSON PATIENT COORDINATOR Ot E11.621 TYPE 2 DIABETES MELLITUS WITH FOOT ULCER 10/22/2018 LIZZETTE OLSON PATIENT COORDINATOR Ot L97.522 NON-PRS CHRONIC ULCER OTH PRT LEFT FOOT 10/22/2018 LIZZETTE OLSON PATIENT COORDINATOR Ot M86.472 CHRONIC OSTEOMYELITIS W DRAINING SINUS, 10/22/2018 LIZZETTE OLSON PATIENT COORDINATOR Ot Z72.0 TOBACCO USE 10/22/2018 LIZZETTE OLSON PATIENT COORDINATOR Ot E11.621 TYPE 2 DIABETES MELLITUS WITH FOOT ULCER 10/22/2018 LIZZETTE OLSON PATIENT COORDINATOR Ot L97.522 NON-PRS CHRONIC ULCER OTH PRT LEFT FOOT 10/22/2018 LIZZETTE OLSON PATIENT COORDINATOR Ot M86.472 CHRONIC OSTEOMYELITIS W DRAINING SINUS, 10/22/2018 LIZZETTE OLSON PATIENT COORDINATOR Ot Z72.0 TOBACCO USE 10/23/2018 Ot E11.621 TY PE 2 DIABETES MELLITUS WITH FOOT ULCER 10/27/2018 ANAID WALLIS, KIMBER Le Ot Z01.818 ENCOUNTER FOR OTHER PREPROCEDURAL EXAMIN 10/28/2018 KIMBER WORRELL MD, Ot Z01.818 ENCOUNTER FOR OTHER PREPROCEDURAL EXAMIN 10/28/2018 LIZZETTE OLSON APRN Ot E11.621 TYPE 2 DIABETES MELLITUS WITH FOOT ULCER 10/28/2018 LIZZETTE OLSON APRN Ot L97.522 NON-PRS CHRONIC ULCER OTH PRT LEFT FOOT 10/28/2018 LIZZETTE OLSON APRN Ot M86.472 CHRONIC OSTEOMYELITIS W DRAINING SINUS, 10/28/2018 LIZZETTE OLSON APRN Ot Z72.0 TOBACCO USE 10/29/2018 KIMBER WORRELL MD, Ot E11.40 TYPE 2 DIABETES MELLITUS WITH DIABETIC N 10/29/2018 KIMBER WORRELL MD, Ot E78.5 HYPERLIPIDEMIA, UNSPECIFIED 10/29/2018 KIMBER WORRELL MD, Ot F10.20 ALCOHOL DEPENDENCE, UNCOMPLICATED 10/29/2018 KIMBER WORRELL MD, Ot F32.9 MAJOR DEPRESSIVE DISORDER, SINGLE EPISOD 10/29/2018 KIMBER WORRELL MD, Ot G25.81 RESTLESS LEGS SYNDROME 10/29/2018 KIMBER WORRELL MD, Ot G47.33 OBSTRUCTIVE SLEEP APNEA (ADULT) (PEDIATR 10/29/2018 KIMBER WORRELL MD, Ot I1 0 ESSENTIAL (PRIMARY) HYPERTENSION 10/29/2018 KIMBER WORRELL MD, Ot J44.9 CHRONIC OBSTRUCTIVE PULMONARY DISEASE, U 10/29/2018 KIMBER WORRELL MD, Ot 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 DISEASE, UNSPECIF 10/29/2018 KIMBER WORRELL MD, Ot K21.9 GASTRO-ESOPHAGEAL REFLUX DISEASE WITHOUT 10/29/2018 KIMBER WORRELL MD, Ot M65.332 TRIGGER FINGER, LEFT MIDDLE FINGER 10/29/2018 KIMBER WORRELL MD, Ot Z11.2 ENCOUNTER FOR SCREENING FOR OTHER BACTER 10/29/2018 KIMBER WORRELL MD, Ot Z79.4 PENITENTIARY (CURRENT) USE OF INSULIN 10/29/2018 KIMBER WORRELL MD, Ot Z79.899 OTHER BELLOWS TESTER (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 THERAPY 10/29/2018 KIMBER WORRELL MD, Ot Z80.0 FAMILY HISTORY OF MALIGNANT NEOPLASM OF 10/29/2018 KIMBER WORRELL MD, Ot Z88.1 ALLERGY STATUS TO OTHER ANTIBIOTIC AGENT 10/29/2018 KIMBER WORRELL MD, Ot Z88.5 ALLERGY STATUS TO NARCOTIC AGENT STATUS 10/29/2018 KIMBER WORRELL MD, Ot Z95.5 PRESENCE OF CORONARY ANGIOPLASTY IMPLANT 10/29/2018 KIMBER WORRELL MD, Ot Z99.81 DEPENDENCE ON SUPPLEMENTAL OXYGEN 10/31/2018 KIMBER WORRELL MD, Ot E11.40 TYPE 2 DIABETES MELLITUS WITH DIABETIC N 10/31/2018 KIMBER WORRELL MD, Ot E78.5 HYPERLIPIDEMIA, UNSPECIFIED 10/31/2018 KIMBER WORRELL MD, Ot F10.20 ALCOHOL DEPENDENCE, UNCOMPLICATED 10/31/2018 KIMBER WORRELL MD, Ot F32.9 MAJOR DEPRESSIVE DISORDER, SINGLE EPISOD 10/31/2018 KIMBER WORRELL MD, Ot G25.81 RESTLESS LEGS SYNDROME 10/31/2018 KIMBER WORRELL MD, Ot G47.33 OBSTRUCTIVE SLEEP APNEA (ADULT) (PEDIATR 10/31/2018 KIMBER WORRELL MD, Ot I1 0 ESSENTIAL (PRIMARY) HYPERTENSION 10/31/2018 KIMBER WORRELL MD, Ot J44.9 CHRONIC OBSTRUCTIVE PULMONARY DISEASE, U 10/31/2018 KIMBER WORRELL MD, Ot 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 DISEASE, UNSPECIF 10/31/2018 KIMBER WORRELL MD, Ot K21.9 GASTRO-ESOPHAGEAL REFLUX DISEASE WITHOUT 10/31/2018 KIMBER WORRELL MD, Ot M65.332 TRIGGER FINGER, LEFT MIDDLE FINGER 10/31/2018 KIMBER WORRELL MD, Ot Z11.2 ENCOUNTER FOR SCREENING FOR OTHER BACTER 10/31/2018 KIMBER WORRELL MD, Ot Z79.4 PENITENTIARY (CURRENT) USE OF INSULIN 10/31/2018 KIMBER WORRELL MD, Ot Z79.899 OTHER PENITENTIARY (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 THERAPY 10/31/2018 KIMBER WORRELL MD, Ot Z80.0 FAMILY HISTORY OF MALIGNANT NEOPLASM OF 10/31/2018 KIMBER WORRELL MD, Ot Z88.1 ALLERGY STATUS TO OTHER ANTIBIOTIC AGENT 10/31/2018 KIMBER WORRELL MD, Ot Z88.5 ALLERGY STATUS TO NARCOTIC AGENT STATUS 10/31/2018 KIMBER WORRELL MD, Ot Z95.5 PRESENCE OF CORONARY ANGIOPLASTY IMPLANT 10/31/2018 KIMBER WORRELL MD, Ot Z99.81 DEPENDENCE ON SUPPLEMENTAL OXYGEN 11/02/2018 KIMBER WORRELL MD, Ot Z01.818 ENCOUNTER FOR OTHER PREPROCEDURAL EXAMIN 11/04/2018 LIZZETTE OLSON PATIENT COORDINATOR Ot E11.621 TYPE 2 DIABETES MELLITUS WITH FOOT ULCER 11/04/2018 LIZZETTE OLSON PATIENT COORDINATOR Ot L97.522 NON-PRS CHRONIC ULCER OTH PRT LEFT FOOT 11/04/2018 LIZZETTE OLSON PATIENT COORDINATOR Ot M86.472 CHRONIC OSTEOMYELITIS W DRAINING SINUS, 11/04/2018 LIZZETTE OLSON PATIENT COORDINATOR Ot Z72.0 TOBACCO USE 11/04/2018 Ot E11.621 TY PE 2 DIABETES MELLITUS WITH FOOT ULCER 11/05/2018 LIZZETTE OLSON PATIENT COORDINATOR Ot E11.621 TYPE 2 DIABETES MELLITUS WITH FOOT ULCER 11/05/2018 LIZZETTE OLSON PATIENT COORDINATOR Ot L97.523 NON-PRS CHRONIC ULCER OTH PRT LEFT FOOT 11/05/2018 LIZZETTE OLSON PATIENT COORDINATOR Ot M86.472 CHRONIC OSTEOMYELITIS W DRAINING SINUS, 11/05/2018 LIZZETTE OLSON PATIENT COORDINATOR Ot Z72.0 TOBACCO USE 11/10/2018 LIZZETTE OLSON PATIENT COORDINATOR Ot E11.621 TYPE 2 DIABETES MELLITUS WITH FOOT ULCER 11/10/2018 LIZZETTE OLSON PATIENT COORDINATOR Ot L97.523 NON-PRS CHRONIC ULCER OTH PRT LEFT FOOT 11/10/2018 LIZZETTE OLSON PATIENT COORDINATOR Ot M86.472 CHRONIC OSTEOMYELITIS W DRAINING SINUS, 11/10/2018 LIZZETTE OLSON PATIENT COORDINATOR Ot Z72.0 TOBACCO USE 11/10/2018 LIZZETTE OLSON PATIENT COORDINATOR Ot E11.621 TYPE 2 DIABETES MELLITUS WITH FOOT ULCER 11/10/2018 LIZZETTE OLSON PATIENT COORDINATOR Ot L97.522 NON-PRS CHRONIC ULCER OTH PRT LEFT FOOT 11/10/2018 LIZZETTE OLSON PATIENT COORDINATOR Ot M86.472 CHRONIC OSTEOMYELITIS W DRAINING SINUS, 11/10/2018 LIZZETTE OLSON PATIENT COORDINATOR Ot Z72.0 TOBACCO USE 11/17/2018 LIZZETTE OLSON PATIENT COORDINATOR Ot E11.621 TYPE 2 DIABETES MELLITUS WITH FOOT ULCER 11/17/2018 LIZZETTE OLSON PATIENT COORDINATOR Ot L97.523 NON-PRS CHRONIC ULCER OTH PRT LEFT FOOT 11/17/2018 LIZZETTE OLSON PATIENT COORDINATOR Ot M86.472 CHRONIC OSTEOMYELITIS W DRAINING SINUS, 11/17/2018 LIZZETTE OLSON PATIENT COORDINATOR Ot Z72.0 TOBACCO USE 11/26/2018 LIZZETTE OLSON PATIENT COORDINATOR Ot E11.621 TYPE 2 DIABETES MELLITUS WITH FOOT ULCER 11/26/2018 LIZZETTE OLSON PATIENT COORDINATOR Ot L97.523 NON-PRS CHRONIC ULCER OTH PRT LEFT FOOT 11/26/2018 LIZZETTE OLSON PATIENT COORDINATOR Ot M86.472 CHRONIC OSTEOMYELITIS W DRAINING SINUS, 11/26/2018 LIZZETTE OLSON PATIENT COORDINATOR Ot Z72.0 TOBACCO USE 12/01/2018 KIMBER STAPLES MD Ot E11.621 TYPE 2 DIABETES MELLITUS WITH FOOT ULCER 12/01/2018 KIMBER STAPLES MD Ot L97.524 NON-PRS CHRONIC ULCER OTH PRT LEFT FOOT 12/01/2018 KIMBER STAPLES MD Ot M86.472 CHRONIC OSTEOMYELITIS W DRAINING SINUS, 12/01/2018 KIMBER STAPLES MD Ot Z72 .0 TOBACCO USE 12/03/2018 LIZZETTE OLSON PATIENT COORDINATOR Ot E11.621 TYPE 2 DIABETES MELLITUS WITH FOOT ULCER 12/03/2018 LIZZETTE OLSON PATIENT COORDINATOR Ot L97.524 NON-PRS CHRONIC ULCER OTH PRT LEFT FOOT 12/03/2018 LIZZETTE OLSON PATIENT COORDINATOR Ot M86.472 CHRONIC OSTEOMYELITIS W DRAINING SINUS, 12/03/2018 LIZZETTE OLSON PATIENT COORDINATOR Ot Z72.0 TOBACCO USE 12/09/2018 LIZZETTE OLSON PATIENT COORDINATOR Ot E11.621 TYPE 2 DIABETES MELLITUS WITH FOOT ULCER 12/09/2018 LIZZETTE OLSON PATIENT COORDINATOR Ot L97.524 NON-PRS CHRONIC ULCER OTH PRT LEFT FOOT 12/09/2018 LIZZETTE OLSON PATIENT COORDINATOR Ot M86.472 CHRONIC OSTEOMYELITIS W DRAINING SINUS, 12/09/2018 LIZZETTE OLSON PATIENT COORDINATOR Ot Z72.0 TOBACCO USE 12/10/2018 LIZZETTE OLSON PATIENT COORDINATOR Ot E11.621 TYPE 2 DIABETES MELLITUS WITH FOOT ULCER 12/10/2018 LIZZETTE OLSON PATIENT COORDINATOR Ot L97.524 NON-PRS CHRONIC ULCER OTH PRT LEFT FOOT 12/10/2018 LIZZETTE OLSON PATIENT COORDINATOR Ot M86.472 CHRONIC OSTEOMYELITIS W DRAINING SINUS, 12/10/2018 LIZZETTE OLSON PATIENT COORDINATOR Ot Z72.0 TOBACCO USE 12/10/2018 LIZZETTE OLSON PATIENT COORDINATOR Ot E11.621 TYPE 2 DIABETES MELLITUS WITH FOOT ULCER 12/10/2018 LIZZETTE OLSON PATIENT COORDINATOR Ot L97.524 NON-PRS CHRONIC ULCER OTH PRT LEFT FOOT 12/10/2018 LIZZETTE OLSON APRN Ot M86.472 CHRONIC OSTEOMYELITIS W DRAINING SINUS, 12/10/2018 LIZZETTE OLSON APRN Ot Z72.0 TOBACCO USE 12/12/2018 MAGGY WALLIS, MICHELLE Parker Ot 786. 05 SHORTNESS OF BREATH 12/12/2018 MAGGY WALLIS, MICHELLE Parker Ot 793. 19 OTHER NONSPECIFIC ABNORMAL FINDING OF DEL 12/12/2018 BRENDON PLUNKETT DO Ot 250. 01 DIAB YAHAIRA WO COMPL, TYPE I [JUVENILE TYP 12/12/2018 BRENDON PLUNKETT DO Ot 278. 00 OBESITY, NOS 12/12/2018 BRENDON PLUNKETT DO Ot 327. 23 OBSTRUCTIVE SLEEP APNEA (ADULT) (PEDIATR 12/12/2018 BRENDON PLUNKETT DO Ot 426. 3 LEFT BB BLOCK NEC 12/12/2018 BRENDON PLUNKETT DO Ot 494. 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 8 ALVEOL PNEUMONOPATHY NEC 12/12/2018 BRENDON PLUNKETT DO Ot 785. 1 PALPITATIONS 12/12/2018 BRENDON PLUNKETT DO Ot 786. 05 SHORTNESS OF BREATH 12/12/2018 JUSTICE VARGAS MD Ot 250. 00 DIAB YAHAIRA WO COMPL, TYPE II OR UNSPEC TY 12/12/2018 JUSTICE VARGAS MD Ot 401. 9 HYPERTENSION NOS 12/12/2018 JUSTICE VARGAS MD Ot 426. 3 LEFT BB BLOCK NEC 12/12/2018 JUSTICE VARGAS MD Ot 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 12/12/2018 JUSTICE VARGAS MD Ot 786. 50 CHEST PAIN NOS 12/12/2018 BRENDON PLUNKETT DO Ot V72. 84 EXAM PRE-OPERATIVE NOS 12/12/2018 BRENDON PLUNKETT DO Ot V72. 84 EXAM PRE-OPERATIVE NOS 12/12/2018 BRENDON PLUNKETT DO Ot V72. 84 EXAM PRE-OPERATIVE NOS 12/12/2018 CONSTANZA, ADITYA E PATIENT COORDINATOR Ot 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 DISEASE, UNSPECIF 12/12/2018 ADITYA APODACA PATIENT COORDINATOR Ot M35.00 SICCA SYNDROME, UNSPECIFIED 12/12/2018 ADITYA APODACA PATIENT COORDINATOR Ot R06.00 DYSPNEA, UNSPECIFIED 12/12/2018 ADITYA APODACA PATIENT COORDINATOR Ot 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 DISEASE, UNSPECIF 12/12/2018 ADITYA APODACA PATIENT COORDINATOR Ot R06.00 DYSPNEA, UNSPECIFIED 12/12/2018 ADITYA APODACA PATIENT COORDINATOR Ot R09.02 HYPOXEMIA 12/12/2018 ADITYA APODACA PATIENT COORDINATOR Ot Z72.0 TOBACCO USE 12/12/2018 LIZZETTE OLSON PATIENT COORDINATOR Ot E11.621 TYPE 2 DIABETES MELLITUS WITH FOOT ULCER 12/12/2018 LIZZETTE OLSON PATIENT COORDINATOR Ot L97.522 NON-PRS CHRONIC ULCER OTH PRT LEFT FOOT 12/12/2018 LIZZETTE OLSON PATIENT COORDINATOR Ot Z72.0 TOBACCO USE 12/12/2018 LIZZETTE OLSON PATIENT COORDINATOR Ot E11.621 TYPE 2 DIABETES MELLITUS WITH FOOT ULCER 12/12/2018 LIZZETTE OLSON PATIENT COORDINATOR Ot L97.512 NON-PRS CHRONIC ULCER OTH PRT RIGHT FOOT 12/12/2018 LIZZETTE OLSON APRN Ot Z72.0 TOBACCO USE 12/12/2018 KIMBER STAPLES MD Ot E11.621 TYPE 2 DIABETES MELLITUS WITH FOOT ULCER 12/12/2018 KIMBER STAPLES MD Ot E11.69 TYPE 2 DIABETES MELLITUS WITH OTHER SPEC 12/12/2018 KIMBER STAPLES MD Ot L97.514 NON-PRS CHRONIC ULCER OTH PRT RIGHT FOOT 12/12/2018 KIMBER STAPLES MD Ot M86.472 CHRONIC OSTEOMYELITIS W DRAINING SINUS, 12/12/2018 KIMBER STAPLES MD Ot Z72 .0 TOBACCO USE 12/12/2018 KIMBER STAPLES MD Ot E11.621 TYPE 2 DIABETES MELLITUS WITH FOOT ULCER 12/12/2018 KIMBER STAPLES MD Ot L97.529 NON-PRESSURE CHRONIC ULCER OTH PRT LEFT 12/12/2018 ADITYA APODACA PATIENT COORDINATOR Ot R91.8 OTHER NONSPECIFIC ABNORMAL FINDING OF DEL 12/12/2018 LIZZETTE OLSON PATIENT COORDINATOR Ot E11.621 TYPE 2 DIABETES MELLITUS WITH FOOT ULCER 12/12/2018 LIZZETTE OLSON PATIENT COORDINATOR Ot L97.514 NON-PRS CHRONIC ULCER OTH PRT RIGHT FOOT 12/12/2018 LIZZETTE OLSON PATIENT COORDINATOR Ot M86.472 CHRONIC OSTEOMYELITIS W DRAINING SINUS, 12/12/2018 LIZZETTE OLSON PATIENT COORDINATOR Ot Z72.0 TOBACCO USE 12/12/2018 LIZZETTE OLSON PATIENT COORDINATOR Ot E11.621 TYPE 2 DIABETES MELLITUS WITH FOOT ULCER 12/12/2018 LIZZETTE OLSON PATIENT COORDINATOR Ot L97.524 NON-PRS CHRONIC ULCER OTH PRT LEFT FOOT 12/12/2018 LIZZETTE OLSON PATIENT COORDINATOR Ot M86.472 CHRONIC OSTEOMYELITIS W DRAINING SINUS, 12/12/2018 LIZZETTE OLSON PATIENT COORDINATOR Ot Z72.0 TOBACCO USE 12/12/2018 LIZZETTE OLSON PATIENT COORDINATOR Ot E11.621 TYPE 2 DIABETES MELLITUS WITH FOOT ULCER 12/12/2018 LIZZETTE OLSON PATIENT COORDINATOR Ot L97.524 NON-PRS CHRONIC ULCER OTH PRT LEFT FOOT 12/12/2018 LIZZETTE OLSON PATIENT COORDINATOR Ot M86.472 CHRONIC OSTEOMYELITIS W DRAINING SINUS, 12/12/2018 LIZZETTE OLSON PATIENT COORDINATOR Ot Z72.0 TOBACCO USE 12/12/2018 ADITYA APODACA PATIENT COORDINATOR Ot R04.2 HEMOPTYSIS 12/12/2018 ADITYA APODACA PATIENT COORDINATOR Ot R06.02 SHORTNESS OF BREATH 12/12/2018 ADITYA APODACA APRN Ot Z98.890 OTHER SPECIFIED POSTPROCEDURAL STATES 12/12/2018 LIZZETTE OLSON PATIENT COORDINATOR Ot E11.621 TYPE 2 DIABETES MELLITUS WITH FOOT ULCER 12/12/2018 LIZZETTE OLSON PATIENT COORDINATOR Ot L97.524 NON-PRS CHRONIC ULCER OTH PRT LEFT FOOT 12/12/2018 LIZZETTE OLSON PATIENT COORDINATOR Ot M86.472 CHRONIC OSTEOMYELITIS W DRAINING SINUS, 12/12/2018 LIZZETTE OLSON PATIENT COORDINATOR Ot Z72.0 TOBACCO USE 12/12/2018 DAVID SANTAMARIA MD Ot E11.621 TYPE 2 DIABETES MELLITUS WITH FOOT ULCER 12/12/2018 DAVID SANTAMARIA MD Ot L97.522 NON- PRS CHRONIC ULCER OTH PRT LEFT FOOT 12/12/2018 DAVID SANTAMARIA MD Ot M86.472 CHRONIC OSTEOMYELITIS W DRAINING SINUS, 12/12/2018 DAVID SANTAMARIA MD Ot Z72.0 TOBACCO USE 12/12/2018 WESLEYLIZZETTE PATIENT COORDINATOR Ot E11.621 TYPE 2 DIABETES MELLITUS WITH FOOT ULCER 12/12/2018 WESLEYLIZZETTE PATIENT COORDINATOR Ot L97.522 NON-PRS CHRONIC ULCER OTH PRT LEFT FOOT 12/12/2018 LIZZETTE OLSON PATIENT COORDINATOR Ot M86.472 CHRONIC OSTEOMYELITIS W DRAINING SINUS, 12/12/2018 WESLEYLIZZETTE PATIENT COORDINATOR Ot Z72.0 TOBACCO USE 12/12/2018 WESLEYLIZZETTE R PATIENT COORDINATOR Ot E11.621 TYPE 2 DIABETES MELLITUS WITH FOOT ULCER 12/12/2018 WESLEY LIZZETTE R PATIENT COORDINATOR Ot L97.522 NON-PRS CHRONIC ULCER OTH PRT LEFT FOOT 12/12/2018 LIZZETTE OLSON PATIENT COORDINATOR Ot M86.472 CHRONIC OSTEOMYELITIS W DRAINING SINUS, 12/12/2018 LIZZETTE OLSON PATIENT COORDINATOR Ot Z72.0 TOBACCO USE 12/12/2018 LIZZETTE OLSON PATIENT COORDINATOR Ot E11.621 TYPE 2 DIABETES MELLITUS WITH FOOT ULCER 12/12/2018 LIZZETTE OLSON R PATIENT COORDINATOR Ot L97.522 NON-PRS CHRONIC ULCER OTH PRT LEFT FOOT 12/12/2018 LIZZETTE OLSON PATIENT COORDINATOR Ot M86.472 CHRONIC OSTEOMYELITIS W DRAINING SINUS, 12/12/2018 LIZZETTE OLSON PATIENT COORDINATOR Ot Z72.0 TOBACCO USE 12/12/2018 LIZZETTE OLSON PATIENT COORDINATOR Ot E11.621 TYPE 2 DIABETES MELLITUS WITH FOOT ULCER 12/12/2018 LIZZETTE OLSON PATIENT COORDINATOR Ot L97.522 NON-PRS CHRONIC ULCER OTH PRT LEFT FOOT 12/12/2018 LIZZETTE OLSON PATIENT COORDINATOR Ot M86.472 CHRONIC OSTEOMYELITIS W DRAINING SINUS, 12/12/2018 LIZZETTE OLSON PATIENT COORDINATOR Ot Z72.0 TOBACCO USE 12/12/2018 BEL WALLIS, KIMBER Harris Ot E11.621 TYPE 2 DIABETES MELLITUS WITH FOOT ULCER 12/12/2018 KIMBER STAPLES MD Ot L97.522 NON-PRS CHRONIC ULCER OTH PRT LEFT FOOT 12/12/2018 KIMBER STAPLES MD Ot M86.472 CHRONIC OSTEOMYELITIS W DRAINING SINUS, 12/12/2018 KIMBER STAPLES MD Ot Z72 .0 TOBACCO USE 12/12/2018 LIZZETTE OLSON PATIENT COORDINATOR Ot E11.621 TYPE 2 DIABETES MELLITUS WITH FOOT ULCER 12/12/2018 LIZZETTE OLSON PATIENT COORDINATOR Ot L97.522 NON-PRS CHRONIC ULCER OTH PRT LEFT FOOT 12/12/2018 LIZZETTE OLSON PATIENT COORDINATOR Ot M86.472 CHRONIC OSTEOMYELITIS W DRAINING SINUS, 12/12/2018 LIZZETTE OLSON PATIENT COORDINATOR Ot Z72.0 TOBACCO USE 12/12/2018 LIZZETTE OLSON PATIENT COORDINATOR Ot E11.621 TYPE 2 DIABETES MELLITUS WITH FOOT ULCER 12/12/2018 LIZZETTE OLSON PATIENT COORDINATOR Ot L97.522 NON-PRS CHRONIC ULCER OTH PRT LEFT FOOT 12/12/2018 LIZZETTE OLSON PATIENT COORDINATOR Ot M86.472 CHRONIC OSTEOMYELITIS W DRAINING SINUS, 12/12/2018 LIZZETTE OLSON PATIENT COORDINATOR Ot Z72.0 TOBACCO USE 12/12/2018 LIZZETTE OLSON PATIENT COORDINATOR Ot E11.621 TYPE 2 DIABETES MELLITUS WITH FOOT ULCER 12/12/2018 LIZZETTE OLSON PATIENT COORDINATOR Ot L97.522 NON-PRS CHRONIC ULCER OTH PRT LEFT FOOT 12/12/2018 LIZZETTE OLSON PATIENT COORDINATOR Ot M86.472 CHRONIC OSTEOMYELITIS W DRAINING SINUS, 12/12/2018 LIZZETTE OLSON PATIENT COORDINATOR Ot Z72.0 TOBACCO USE 12/12/2018 Ot E11.621 TY PE 2 DIABETES MELLITUS WITH FOOT ULCER 12/12/2018 LIZZETTE OLSON PATIENT COORDINATOR Ot E11.621 TYPE 2 DIABETES MELLITUS WITH FOOT ULCER 12/12/2018 LIZZETTE OLSON PATIENT COORDINATOR Ot L97.522 NON-PRS CHRONIC ULCER OTH PRT LEFT FOOT 12/12/2018 LIZZETTE OLSON PATIENT COORDINATOR Ot M86.472 CHRONIC OSTEOMYELITIS W DRAINING SINUS, 12/12/2018 LIZZETTE OLSON PATIENT COORDINATOR Ot Z72.0 TOBACCO USE 12/12/2018 LIZZETTE OLSON PATIENT COORDINATOR Ot E11.621 TYPE 2 DIABETES MELLITUS WITH FOOT ULCER 12/12/2018 LIZZETTE OLSON PATIENT COORDINATOR Ot L97.523 NON-PRS CHRONIC ULCER OTH PRT LEFT FOOT 12/12/2018 LIZZETTE OLSON PATIENT COORDINATOR Ot M86.472 CHRONIC OSTEOMYELITIS W DRAINING SINUS, 12/12/2018 LIZZETTE OLSON PATIENT COORDINATOR Ot Z72.0 TOBACCO USE 12/12/2018 LIZZETTE OLSON PATIENT COORDINATOR Ot E11.621 TYPE 2 DIABETES MELLITUS WITH FOOT ULCER 12/12/2018 LIZZETTE OLSON PATIENT COORDINATOR Ot L97.523 NON-PRS CHRONIC ULCER OTH PRT LEFT FOOT 12/12/2018 LIZZETTE OLSON PATIENT COORDINATOR Ot M86.472 CHRONIC OSTEOMYELITIS W DRAINING SINUS, 12/12/2018 LIZZETTE OLSON PATIENT COORDINATOR Ot Z72.0 TOBACCO USE 12/12/2018 KIMBER STAPLES MD Ot E11.621 TYPE 2 DIABETES MELLITUS WITH FOOT ULCER 12/12/2018 BEL WALLIS, KIMBER Harris Ot E11.69 TYPE 2 DIABETES MELLITUS WITH OTHER SPEC 12/12/2018 KIMBRE STAPLES MD Ot L97.523 NON-PRS CHRONIC ULCER OTH PRT LEFT FOOT 12/12/2018 KIMBER STAPLES MD Ot M86.472 CHRONIC OSTEOMYELITIS W DRAINING SINUS, 12/12/2018 KIMBER STAPLES MD Ot Z72 .0 TOBACCO USE 12/12/2018 KIMBER STAPLES MD Ot E11.621 TYPE 2 DIABETES MELLITUS WITH FOOT ULCER 12/12/2018 KIMBER STAPLES MD Ot L97.524 NON-PRS CHRONIC ULCER OTH PRT LEFT FOOT 12/12/2018 KIMBER STAPLES MD Ot M86.472 CHRONIC OSTEOMYELITIS W DRAINING SINUS, 12/12/2018 KIMBER STAPLES MD Ot Z72 .0 TOBACCO USE 12/12/2018 LIZZETTE OLSON PATIENT COORDINATOR Ot E11.621 TYPE 2 DIABETES MELLITUS WITH FOOT ULCER 12/12/2018 LIZZETTE OLSON PATIENT COORDINATOR Ot L97.524 NON-PRS CHRONIC ULCER OTH PRT LEFT FOOT 12/12/2018 LIZZETTE OLSON PATIENT COORDINATOR Ot M86.472 CHRONIC OSTEOMYELITIS W DRAINING SINUS, 12/12/2018 LIZZETTE OLSON PATIENT COORDINATOR Ot Z72.0 TOBACCO USE 12/12/2018 LIZZETTE OLSON PATIENT COORDINATOR Ot E11.621 TYPE 2 DIABETES MELLITUS WITH FOOT ULCER 12/12/2018 LIZZETTE OLSON PATIENT COORDINATOR Ot L97.524 NON-PRS CHRONIC ULCER OTH PRT LEFT FOOT 12/12/2018 LIZZETTE OLSON PATIENT COORDINATOR Ot M86.472 CHRONIC OSTEOMYELITIS W DRAINING SINUS, 12/12/2018 LIZZETTE OLSON PATIENT COORDINATOR Ot Z72.0 TOBACCO USE 12/12/2018 LIZZETTE OLSON PATIENT COORDINATOR Ot E11.621 TYPE 2 DIABETES MELLITUS WITH FOOT ULCER 12/12/2018 LIZZETTE OLSON PATIENT COORDINATOR Ot L97.524 NON-PRS CHRONIC ULCER OTH PRT LEFT FOOT 12/12/2018 LIZZETTE OLSON PATIENT COORDINATOR Ot M86.472 CHRONIC OSTEOMYELITIS W DRAINING SINUS, 12/12/2018 LIZZETTE OLSON PATIENT COORDINATOR Ot Z72.0 TOBACCO USE 12/12/2018 ADITYA APODACA PATIENT COORDINATOR Ot R91.8 OTHER NONSPECIFIC ABNORMAL FINDING OF DEL 12/12/2018 LIZZETTE OLSON PATIENT COORDINATOR Ot E11.621 TYPE 2 DIABETES MELLITUS WITH FOOT ULCER 12/12/2018 LIZZETTE OLSON PATIENT COORDINATOR Ot L97.514 NON-PRS CHRONIC ULCER OTH PRT RIGHT FOOT 12/12/2018 LIZZETTE OLSON PATIENT COORDINATOR Ot M86.472 CHRONIC OSTEOMYELITIS W DRAINING SINUS, 12/12/2018 LIZZETTE OLSON PATIENT COORDINATOR Ot Z72.0 TOBACCO USE 12/16/2018 LIZZETTE OLSON PATIENT COORDINATOR Ot E11.621 TYPE 2 DIABETES MELLITUS WITH FOOT ULCER 12/16/2018 LIZZETTE OLSON PATIENT COORDINATOR Ot L97.524 NON-PRS CHRONIC ULCER OTH PRT LEFT FOOT 12/16/2018 LIZZETTE OLSON APRN Ot M86.472 CHRONIC OSTEOMYELITIS W DRAINING SINUS, 12/16/2018 LIZZETTE OLSON PATIENT COORDINATOR Ot Z72.0 TOBACCO USE 12/16/2018 KIMBER STAPLES MD Ot E11.621 TYPE 2 DIABETES MELLITUS WITH FOOT ULCER 12/16/2018 KIMBER STAPLES MD Ot E11.69 TYPE 2 DIABETES MELLITUS WITH OTHER SPEC 12/16/2018 KIBMER STAPLES MD Ot L97.523 NON-PRS CHRONIC ULCER OTH PRT LEFT FOOT 12/16/2018 KIMBER STAPLES MD Ot M86.472 CHRONIC OSTEOMYELITIS W DRAINING SINUS, 12/16/2018 KIMBER STAPLES MD Ot Z72 .0 TOBACCO USE 12/18/2018 LIZZETTE OLSON PATIENT COORDINATOR Ot E11.69 TYPE 2 DIABETES MELLITUS WITH OTHER SPEC 12/18/2018 LIZZETTE OLSON PATIENT COORDINATOR Ot M86.472 CHRONIC OSTEOMYELITIS W DRAINING SINUS, 12/19/2018 LIZZETTE OLSON PATIENT COORDINATOR Ot E11.69 TYPE 2 DIABETES MELLITUS WITH OTHER SPEC 12/19/2018 LIZZETTE OLSON PATIENT COORDINATOR Ot M86.472 CHRONIC OSTEOMYELITIS W DRAINING SINUS, 12/19/2018 Ot E11.40 TYP E 2 DIABETES MELLITUS WITH DIABETIC N 12/19/2018 Ot E78.00 PUR E HYPERCHOLESTEROLEMIA, UNSPECIFIED 12/19/2018 Ot F41.9 ANXI ETY DISORDER, UNSPECIFIED 12/19/2018 Ot G47.30 SLE EP APNEA, UNSPECIFIED 12/19/2018 Ot I10 ESSENT IAL (PRIMARY) HYPERTENSION 12/19/2018 Ot I25.2 OLD MYOCARDIAL INFARCTION 12/19/2018 Ot 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, U 12/19/2018 Ot K21.9 QUINCY RO-ESOPHAGEAL REFLUX DISEASE WITHOUT 12/19/2018 Ot T82.838A H EMORRHAGE DUE TO VASCULAR PROSTH DEV/GR 12/19/2018 Ot Z79.4 PENITENTIARY (CURRENT) USE OF INSULIN 12/19/2018 Ot Z80.0 FAMI LY HISTORY OF MALIGNANT NEOPLASM OF 12/19/2018 Ot Z82.49 FAM LOREN HX OF ISCHEM HEART DIS AND OTH DI 12/19/2018 Ot Z87.01 PER HUSSEIN HISTORY OF PNEUMONIA (RECURRENT 12/19/2018 Ot 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 12/19/2018 Ot Z88.1 SAM RGY STATUS TO OTHER ANTIBIOTIC AGENT 12/19/2018 Ot Z88.6 SAM RGY STATUS TO ANALGESIC AGENT STATUS 12/19/2018 Ot Z88.8 SAM RGY STATUS TO OTH DRUG/MEDS/BIOL SUB 12/19/2018 Ot Z95.5 PRES ENCE OF CORONARY ANGIOPLASTY IMPLANT 12/19/2018 Ot Z98.890 OT HER SPECIFIED POSTPROCEDURAL STATES 12/20/2018 LIZZETTE OSLON APRN Ot E11.69 TYPE 2 DIABETES MELLITUS WITH OTHER SPEC 12/20/2018 LIZZETET OLSON APRN Ot M86.472 CHRONIC OSTEOMYELITIS W DRAINING SINUS, 12/20/2018 LIZZETTE OLSON APRN Ot E11.69 TYPE 2 DIABETES MELLITUS WITH OTHER SPEC 12/20/2018 LIZZETTE OLSON APRN Ot M86.472 CHRONIC OSTEOMYELITIS W DRAINING SINUS, 12/20/2018 LIZZETTE OLSON APRN Ot E11.69 TYPE 2 DIABETES MELLITUS WITH OTHER SPEC 12/20/2018 LIZZETTE OLSON APRN Ot M86.472 CHRONIC OSTEOMYELITIS W DRAINING SINUS, 12/21/2018 LIZZETTE OLSON APRN Ot E11.69 TYPE 2 DIABETES MELLITUS WITH OTHER SPEC 12/21/2018 LIZZETTE OLSON APRN Ot M86.472 CHRONIC OSTEOMYELITIS W DRAINING SINUS, 12/21/2018 LIZZETTE OLSON APRN Ot E11.69 TYPE 2 DIABETES MELLITUS WITH OTHER SPEC 12/21/2018 LIZZETTE OLSON APRN Ot M86.472 CHRONIC OSTEOMYELITIS W DRAINING SINUS, 12/22/2018 Ot E11.40 TYP E 2 DIABETES MELLITUS WITH DIABETIC N 12/22/2018 Ot E78.00 PUR E HYPERCHOLESTEROLEMIA, UNSPECIFIED 12/22/2018 Ot F41.9 ANXI ETY DISORDER, UNSPECIFIED 12/22/2018 Ot G47.30 SLE EP APNEA, UNSPECIFIED 12/22/2018 Ot I10 ESSENT IAL (PRIMARY) HYPERTENSION 12/22/2018 Ot I25.2 OLD MYOCARDIAL INFARCTION 12/22/2018 Ot 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, U 12/22/2018 Ot K21.9 QUINCY RO-ESOPHAGEAL REFLUX DISEASE WITHOUT 12/22/2018 Ot T82.838A H EMORRHAGE DUE TO VASCULAR PROSTH DEV/GR 12/22/2018 Ot Z79.4 BELLOWS TESTER (CURRENT) USE OF INSULIN 12/22/2018 Ot Z80.0 FAMI LY HISTORY OF MALIGNANT NEOPLASM OF 12/22/2018 Ot Z82.49 FAM LOREN HX OF ISCHEM HEART DIS AND OTH DI 12/22/2018 Ot Z87.01 PER HUSSEIN HISTORY OF PNEUMONIA (RECURRENT 12/22/2018 Ot 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 12/22/2018 Ot Z88.1 SAM RGY STATUS TO OTHER ANTIBIOTIC AGENT 12/22/2018 Ot Z88.6 SAM RGY STATUS TO ANALGESIC AGENT STATUS 12/22/2018 Ot Z88.8 SAM RGY STATUS TO OTH DRUG/MEDS/BIOL SUB 12/22/2018 Ot Z95.5 PRES ENCE OF CORONARY ANGIOPLASTY IMPLANT 12/22/2018 Ot Z98.890 OT HER SPECIFIED POSTPROCEDURAL STATES 12/22/2018 LIZZETTE OLSON APRN Ot E11.69 TYPE 2 DIABETES MELLITUS WITH OTHER SPEC 12/22/2018 LIZZETTE OLSON APRN Ot M86.472 CHRONIC OSTEOMYELITIS W DRAINING SINUS, 12/23/2018 LIZZETTE OLSON APRN Ot E11.69 TYPE 2 DIABETES MELLITUS WITH OTHER SPEC 12/23/2018 LIZZETTE OLSON PATIENT COORDINATOR Ot M86.472 CHRONIC OSTEOMYELITIS W DRAINING SINUS, 12/24/2018 LIZZETTE OLSON PATIENT COORDINATOR Ot E11.69 TYPE 2 DIABETES MELLITUS WITH OTHER SPEC 12/24/2018 LIZZETTE OLSON PATIENT COORDINATOR Ot M86.472 CHRONIC OSTEOMYELITIS W DRAINING SINUS, 12/24/2018 LIZZETTE OLSON PATIENT COORDINATOR Ot E11.621 TYPE 2 DIABETES MELLITUS WITH FOOT ULCER 12/24/2018 LIZZETTE OLSON PATIENT COORDINATOR Ot L97.524 NON-PRS CHRONIC ULCER OTH PRT LEFT FOOT 12/24/2018 LIZZETTE OLSON PATIENT COORDINATOR Ot M86.472 CHRONIC OSTEOMYELITIS W DRAINING SINUS, 12/24/2018 LIZZETTE OLSON PATIENT COORDINATOR Ot Z72.0 TOBACCO USE 12/24/2018 LIZZETTE OLSON R PATIENT COORDINATOR Ot E11.69 TYPE 2 DIABETES MELLITUS WITH OTHER SPEC 12/24/2018 LIZZETTE OLSON R PATIENT COORDINATOR Ot M86.472 CHRONIC OSTEOMYELITIS W DRAINING SINUS, 12/25/2018 LIZZETTE OLSON PATIENT COORDINATOR Ot E11.69 TYPE 2 DIABETES MELLITUS WITH OTHER SPEC 12/25/2018 LIZZETTE OLSON R PATIENT COORDINATOR Ot M86.472 CHRONIC OSTEOMYELITIS W DRAINING SINUS, 12/26/2018 LIZZETTE OLSON R PATIENT COORDINATOR Ot E11.69 TYPE 2 DIABETES MELLITUS WITH OTHER SPEC 12/26/2018 LIZZETTE OLSON R PATIENT COORDINATOR Ot M86.472 CHRONIC OSTEOMYELITIS W DRAINING SINUS, 12/26/2018 LIZZETTE OLSON R PATIENT COORDINATOR Ot E11.69 TYPE 2 DIABETES MELLITUS WITH OTHER SPEC 12/26/2018 LIZZETTE OLSON PATIENT COORDINATOR Ot M86.472 CHRONIC OSTEOMYELITIS W DRAINING SINUS, 12/27/2018 LIZZETTE OLSON R PATIENT COORDINATOR Ot E11.69 TYPE 2 DIABETES MELLITUS WITH OTHER SPEC 12/27/2018 LIZZETTE OLSON R PATIENT COORDINATOR Ot M86.472 CHRONIC OSTEOMYELITIS W DRAINING SINUS, 12/27/2018 LIZZETTE OLSON R PATIENT COORDINATOR Ot E11.69 TYPE 2 DIABETES MELLITUS WITH OTHER SPEC 12/27/2018 LIZZETTE OLSON R PATIENT COORDINATOR Ot M86.472 CHRONIC OSTEOMYELITIS W DRAINING SINUS, 12/28/2018 LIZZETTE OLSON R PATIENT COORDINATOR Ot E11.69 TYPE 2 DIABETES MELLITUS WITH OTHER SPEC 12/28/2018 LIZZETTE OLSON PATIENT COORDINATOR Ot M86.472 CHRONIC OSTEOMYELITIS W DRAINING SINUS, 12/28/2018 LIZZETTE OLSON R PATIENT COORDINATOR Ot E11.69 TYPE 2 DIABETES MELLITUS WITH OTHER SPEC 12/28/2018 LIZZETTE OLSON R PATIENT COORDINATOR Ot M86.472 CHRONIC OSTEOMYELITIS W DRAINING SINUS, 12/28/2018 LIZZETTE OLSON R PATIENT COORDINATOR Ot E11.69 TYPE 2 DIABETES MELLITUS WITH OTHER SPEC 12/28/2018 LIZZETTE OLSON R PATIENT COORDINATOR Ot M86.472 CHRONIC OSTEOMYELITIS W DRAINING SINUS, 12/29/2018 LIZZETTE OLSON PATIENT COORDINATOR Ot E11.69 TYPE 2 DIABETES MELLITUS WITH OTHER SPEC 12/29/2018 LIZZETTE OLSON R PATIENT COORDINATOR Ot M86.472 CHRONIC OSTEOMYELITIS W DRAINING SINUS, 12/29/2018 LIZZETTE OLSON R PATIENT COORDINATOR Ot E11.69 TYPE 2 DIABETES MELLITUS WITH OTHER SPEC 12/29/2018 LIZZETTE OLSON R PATIENT COORDINATOR Ot M86.472 CHRONIC OSTEOMYELITIS W DRAINING SINUS, 12/29/2018 LIZZETTE OLSON R PATIENT COORDINATOR Ot E11.621 TYPE 2 DIABETES MELLITUS WITH FOOT ULCER 12/29/2018 LIZZETTE OLSON R PATIENT COORDINATOR Ot L97.524 NON-PRS CHRONIC ULCER OTH PRT LEFT FOOT 12/29/2018 LIZZETTE OLSON PATIENT COORDINATOR Ot M86.472 CHRONIC OSTEOMYELITIS W DRAINING SINUS, 12/29/2018 LIZZETTE OLSON R PATIENT COORDINATOR Ot Z72.0 TOBACCO USE 12/29/2018 LIZZETTE OLSON R PATIENT COORDINATOR Ot E11.69 TYPE 2 DIABETES MELLITUS WITH OTHER SPEC 12/29/2018 LIZZETTE OLSON R PATIENT COORDINATOR Ot M86.472 CHRONIC OSTEOMYELITIS W DRAINING SINUS, 12/30/2018 LIZZETTE OLSON R PATIENT COORDINATOR Ot E11.69 TYPE 2 DIABETES MELLITUS WITH OTHER SPEC 12/30/2018 LIZZETTE OLSON PATIENT COORDINATOR Ot M86.472 CHRONIC OSTEOMYELITIS W DRAINING SINUS, 12/31/2018 LIZZETTE OLSON R PATIENT COORDINATOR Ot E11.69 TYPE 2 DIABETES MELLITUS WITH OTHER SPEC 12/31/2018 LIZZETTE OLSON R PATIENT COORDINATOR Ot M86.472 CHRONIC OSTEOMYELITIS W DRAINING SINUS, 12/31/2018 LIZZETTE OLSON R PATIENT COORDINATOR Ot E11.69 TYPE 2 DIABETES MELLITUS WITH OTHER SPEC 12/31/2018 LIZZETTE OLSON R PATIENT COORDINATOR Ot M86.472 CHRONIC OSTEOMYELITIS W DRAINING SINUS, 12/31/2018 LIZZETTE OLSON PATIENT COORDINATOR Ot E11.69 TYPE 2 DIABETES MELLITUS WITH OTHER SPEC 12/31/2018 WESLEY, LIZZETTE R PATIENT COORDINATOR Ot M86.472 CHRONIC OSTEOMYELITIS W DRAINING SINUS, 01/01/2019 LIZZETTE OLSON R PATIENT COORDINATOR Ot E11.69 TYPE 2 DIABETES MELLITUS WITH OTHER SPEC 01/01/2019 LIZZETTE OLSON R PATIENT COORDINATOR Ot M86.472 CHRONIC OSTEOMYELITIS W DRAINING SINUS, 01/01/2019 LIZZETTE OLSON R PATIENT COORDINATOR Ot E11.69 TYPE 2 DIABETES MELLITUS WITH OTHER SPEC 01/01/2019 LIZZETTE OLSON PATIENT COORDINATOR Ot M86.472 CHRONIC OSTEOMYELITIS W DRAINING SINUS, 01/02/2019 LIZZETTE OLSON R PATIENT COORDINATOR Ot E11.69 TYPE 2 DIABETES MELLITUS WITH OTHER SPEC 01/02/2019 LIZZETTE OLSON R PATIENT COORDINATOR Ot M86.472 CHRONIC OSTEOMYELITIS W DRAINING SINUS, 01/02/2019 LIZZETTE OLSON R PATIENT COORDINATOR Ot E11.69 TYPE 2 DIABETES MELLITUS WITH OTHER SPEC 01/02/2019 LIZZETTE OLSON R PATIENT COORDINATOR Ot M86.472 CHRONIC OSTEOMYELITIS W DRAINING SINUS, 01/03/2019 LIZZETTE OLSON R PATIENT COORDINATOR Ot E11.69 TYPE 2 DIABETES MELLITUS WITH OTHER SPEC 01/03/2019 LIZZETTE OLSON R PATIENT COORDINATOR Ot M86.472 CHRONIC OSTEOMYELITIS W DRAINING SINUS, 01/04/2019 LIZZETTE OLSON R PATIENT COORDINATOR Ot E11.69 TYPE 2 DIABETES MELLITUS WITH OTHER SPEC 01/04/2019 LIZZETTE OLSON R PATIENT COORDINATOR Ot M86.472 CHRONIC OSTEOMYELITIS W DRAINING SINUS, 01/04/2019 LIZZETTE OLSON R PATIENT COORDINATOR Ot E11.69 TYPE 2 DIABETES MELLITUS WITH OTHER SPEC 01/04/2019 LIZZETTE OLSON R PATIENT COORDINATOR Ot M86.472 CHRONIC OSTEOMYELITIS W DRAINING SINUS, 01/04/2019 LIZZETTE OLSON PATIENT COORDINATOR Ot E11.69 TYPE 2 DIABETES MELLITUS WITH OTHER SPEC 01/04/2019 LIZZETTE OLSON R PATIENT COORDINATOR Ot M86.472 CHRONIC OSTEOMYELITIS W DRAINING SINUS, 01/05/2019 WESLEY LIZZETTE R PATIENT COORDINATOR Ot E11.69 TYPE 2 DIABETES MELLITUS WITH OTHER SPEC 01/05/2019 LIZZETTE OLSON R PATIENT COORDINATOR Ot M86.472 CHRONIC OSTEOMYELITIS W DRAINING SINUS, 01/05/2019 LIZZETTE OLSON R PATIENT COORDINATOR Ot E11.69 TYPE 2 DIABETES MELLITUS WITH OTHER SPEC 01/05/2019 LIZZETTE OLSON R PATIENT COORDINATOR Ot M86.472 CHRONIC OSTEOMYELITIS W DRAINING SINUS, 01/05/2019 LIZZETTE OLSON R PATIENT COORDINATOR Ot E11.69 TYPE 2 DIABETES MELLITUS WITH OTHER SPEC 01/05/2019 LIZZETTE OLSON PATIENT COORDINATOR Ot M86.472 CHRONIC OSTEOMYELITIS W DRAINING SINUS, 01/05/2019 LIZZETTE OLSON PATIENT COORDINATOR Ot E11.69 TYPE 2 DIABETES MELLITUS WITH OTHER SPEC 01/05/2019 LIZZETTE OLSON PATIENT COORDINATOR Ot M86.472 CHRONIC OSTEOMYELITIS W DRAINING SINUS, 01/06/2019 LIZZETTE OLSON PATIENT COORDINATOR Ot E11.69 TYPE 2 DIABETES MELLITUS WITH OTHER SPEC 01/06/2019 LIZZETTE OLSON PATIENT COORDINATOR Ot M86.472 CHRONIC OSTEOMYELITIS W DRAINING SINUS, 01/06/2019 LIZZETTE OLSON PATIENT COORDINATOR Ot E11.69 TYPE 2 DIABETES MELLITUS WITH OTHER SPEC 01/06/2019 LIZZETTE OLSON PATIENT COORDINATOR Ot M86.472 CHRONIC OSTEOMYELITIS W DRAINING SINUS, 01/06/2019 LIZZETTE OLSON PATIENT COORDINATOR Ot E11.69 TYPE 2 DIABETES MELLITUS WITH OTHER SPEC 01/06/2019 LIZZETTE OLSON PATIENT COORDINATOR Ot M86.472 CHRONIC OSTEOMYELITIS W DRAINING SINUS, 01/07/2019 LIZZETTE OLSON PATIENT COORDINATOR Ot E11.69 TYPE 2 DIABETES MELLITUS WITH OTHER SPEC 01/07/2019 LIZZETTE OLSON PATIENT COORDINATOR Ot M86.472 CHRONIC OSTEOMYELITIS W DRAINING SINUS, 01/07/2019 LIZZETTE OLSON PATIENT COORDINATOR Ot E11.69 TYPE 2 DIABETES MELLITUS WITH OTHER SPEC 01/07/2019 LIZZETTE OLSON PATIENT COORDINATOR Ot M86.472 CHRONIC OSTEOMYELITIS W DRAINING SINUS, 01/07/2019 LIZZETTE OLSON PATIENT COORDINATOR Ot E11.69 TYPE 2 DIABETES MELLITUS WITH OTHER SPEC 01/07/2019 LIZZETTE OLSON PATIENT COORDINATOR Ot M86.472 CHRONIC OSTEOMYELITIS W DRAINING SINUS, 01/08/2019 LIZZETTE OLSON PATIENT COORDINATOR Ot E11.69 TYPE 2 DIABETES MELLITUS WITH OTHER SPEC 01/08/2019 LIZZETTE OLSON PATIENT COORDINATOR Ot M86.472 CHRONIC OSTEOMYELITIS W DRAINING SINUS, 01/08/2019 LIZZETTE OLSON PATIENT COORDINATOR Ot E11.621 TYPE 2 DIABETES MELLITUS WITH FOOT ULCER 01/08/2019 LIZZETTE OLSON PATIENT COORDINATOR Ot L97.524 NON-PRS CHRONIC ULCER OTH PRT LEFT FOOT 01/08/2019 LIZZETTE OLSON PATIENT COORDINATOR Ot M86.472 CHRONIC OSTEOMYELITIS W DRAINING SINUS, 01/08/2019 LIZZETTE OLSON PATIENT COORDINATOR Ot Z72.0 TOBACCO USE 01/09/2019 LIZZETTE OLSON PATIENT COORDINATOR Ot E11.69 TYPE 2 DIABETES MELLITUS WITH OTHER SPEC 01/09/2019 LIZZETTE OLSON PATIENT COORDINATOR Ot M86.472 CHRONIC OSTEOMYELITIS W DRAINING SINUS, 01/10/2019 LIZZETTE OLSON PATIENT COORDINATOR Ot E11.69 TYPE 2 DIABETES MELLITUS WITH OTHER SPEC 01/10/2019 LIZZETTE OLSON PATIENT COORDINATOR Ot M86.472 CHRONIC OSTEOMYELITIS W DRAINING SINUS, 01/11/2019 LIZZETTE OLSON PATIENT COORDINATOR Ot E11.69 TYPE 2 DIABETES MELLITUS WITH OTHER SPEC 01/11/2019 LIZZETTE OLSON R PATIENT COORDINATOR Ot M86.472 CHRONIC OSTEOMYELITIS W DRAINING SINUS, 01/11/2019 LIZZETTE OLSON PATIENT COORDINATOR Ot E11.69 TYPE 2 DIABETES MELLITUS WITH OTHER SPEC 01/11/2019 LIZZETTE OLSON PATIENT COORDINATOR Ot M86.472 CHRONIC OSTEOMYELITIS W DRAINING SINUS, 01/11/2019 LIZZETTE OLSON PATIENT COORDINATOR Ot E11.69 TYPE 2 DIABETES MELLITUS WITH OTHER SPEC 01/11/2019 LIZZETTE OLSON PATIENT COORDINATOR Ot M86.472 CHRONIC OSTEOMYELITIS W DRAINING SINUS, 01/12/2019 LIZZETTE OLSON PATIENT COORDINATOR Ot E11.69 TYPE 2 DIABETES MELLITUS WITH OTHER SPEC 01/12/2019 LIZZETTE OLSON PATIENT COORDINATOR Ot M86.472 CHRONIC OSTEOMYELITIS W DRAINING SINUS, 01/12/2019 LIZZETTE OLSON PATIENT COORDINATOR Ot E11.69 TYPE 2 DIABETES MELLITUS WITH OTHER SPEC 01/12/2019 LIZZETTE OLSON PATIENT COORDINATOR Ot M86.472 CHRONIC OSTEOMYELITIS W DRAINING SINUS, 01/12/2019 LIZZETTE OLSON PATIENT COORDINATOR Ot E11.621 TYPE 2 DIABETES MELLITUS WITH FOOT ULCER 01/12/2019 LIZZETTE OLSON PATIENT COORDINATOR Ot L97.524 NON-PRS CHRONIC ULCER OTH PRT LEFT FOOT 01/12/2019 LIZZETTE OLSON PATIENT COORDINATOR Ot M86.472 CHRONIC OSTEOMYELITIS W DRAINING SINUS, 01/12/2019 LIZZETTE OLSON PATIENT COORDINATOR Ot Z72.0 TOBACCO USE 01/12/2019 LIZZETTE OLSON PATIENT COORDINATOR Ot E11.69 TYPE 2 DIABETES MELLITUS WITH OTHER SPEC 01/12/2019 LIZZETTE OLSON PATIENT COORDINATOR Ot M86.472 CHRONIC OSTEOMYELITIS W DRAINING SINUS, 01/12/2019 LIZZETTE OLSON PATIENT COORDINATOR Ot E11.69 TYPE 2 DIABETES MELLITUS WITH OTHER SPEC 01/12/2019 LIZZETTE OLSON PATIENT COORDINATOR Ot M86.472 CHRONIC OSTEOMYELITIS W DRAINING SINUS, 01/13/2019 LIZZETTE OLSON PATIENT COORDINATOR Ot E11.69 TYPE 2 DIABETES MELLITUS WITH OTHER SPEC 01/13/2019 LIZZETTE OLSON PATIENT COORDINATOR Ot M86.472 CHRONIC OSTEOMYELITIS W DRAINING SINUS, 01/13/2019 LIZZETTE OLSON PATIENT COORDINATOR Ot E11.69 TYPE 2 DIABETES MELLITUS WITH OTHER SPEC 01/13/2019 LIZZETTE OLSON PATIENT COORDINATOR Ot M86.472 CHRONIC OSTEOMYELITIS W DRAINING SINUS, 01/14/2019 LIZZETTE OLSON PATIENT COORDINATOR Ot E11.69 TYPE 2 DIABETES MELLITUS WITH OTHER SPEC 01/14/2019 LIZZETTE OLSON R PATIENT COORDINATOR Ot M86.472 CHRONIC OSTEOMYELITIS W DRAINING SINUS, 01/14/2019 LIZZETTE OLSON PATIENT COORDINATOR Ot E11.69 TYPE 2 DIABETES MELLITUS WITH OTHER SPEC 01/14/2019 LIZZETTE OLSON PATIENT COORDINATOR Ot M86.472 CHRONIC OSTEOMYELITIS W DRAINING SINUS, 01/14/2019 LIZZETTE OLSON PATIENT COORDINATOR Ot E11.621 TYPE 2 DIABETES MELLITUS WITH FOOT ULCER 01/14/2019 LIZZETTE OLSON PATIENT COORDINATOR Ot L97.524 NON-PRS CHRONIC ULCER OTH PRT LEFT FOOT 01/14/2019 LIZZETTE OLSON PATIENT COORDINATOR Ot M86.472 CHRONIC OSTEOMYELITIS W DRAINING SINUS, 01/14/2019 LIZZETTE OLSON PATIENT COORDINATOR Ot Z72.0 TOBACCO USE 01/14/2019 LIZZETTE OLSON PATIENT COORDINATOR Ot E11.69 TYPE 2 DIABETES MELLITUS WITH OTHER SPEC 01/14/2019 LIZZETTE OLSON PATIENT COORDINATOR Ot M86.472 CHRONIC OSTEOMYELITIS W DRAINING SINUS, 01/14/2019 LIZZETTE OLSON PATIENT COORDINATOR Ot E11.69 TYPE 2 DIABETES MELLITUS WITH OTHER SPEC 01/14/2019 LIZZETTE OLSON PATIENT COORDINATOR Ot M86.472 CHRONIC OSTEOMYELITIS W DRAINING SINUS, 01/15/2019 LIZZETTE OLSON PATIENT COORDINATOR Ot E11.69 TYPE 2 DIABETES MELLITUS WITH OTHER SPEC 01/15/2019 LIZZETTE OLSON R PATIENT COORDINATOR Ot M86.472 CHRONIC OSTEOMYELITIS W DRAINING SINUS, 01/15/2019 LIZZETTE OLSON R PATIENT COORDINATOR Ot E11.69 TYPE 2 DIABETES MELLITUS WITH OTHER SPEC 01/15/2019 LIZZETTE OLSON PATIENT COORDINATOR Ot M86.472 CHRONIC OSTEOMYELITIS W DRAINING SINUS, 01/16/2019 LIZZETTE OLSON PATIENT COORDINATOR Ot E11.621 TYPE 2 DIABETES MELLITUS WITH FOOT ULCER 01/16/2019 LIZZETTE OLSON R PATIENT COORDINATOR Ot L97.524 NON-PRS CHRONIC ULCER OTH PRT LEFT FOOT 01/16/2019 LIZZETTE OLSON PATIENT COORDINATOR Ot M86.472 CHRONIC OSTEOMYELITIS W DRAINING SINUS, 01/16/2019 LIZZETTE OLSON PATIENT COORDINATOR Ot Z72.0 TOBACCO USE 01/17/2019 LIZZETTE OLSON PATIENT COORDINATOR Ot E11.69 TYPE 2 DIABETES MELLITUS WITH OTHER SPEC 01/17/2019 LIZZETTE OLSON R PATIENT COORDINATOR Ot M86.472 CHRONIC OSTEOMYELITIS W DRAINING SINUS, 01/18/2019 LIZZETTE OLSON R PATIENT COORDINATOR Ot E11.69 TYPE 2 DIABETES MELLITUS WITH OTHER SPEC 01/18/2019 LIZZETTE OLSON R PATIENT COORDINATOR Ot M86.472 CHRONIC OSTEOMYELITIS W DRAINING SINUS, 01/18/2019 LIZZETTE OLSON R PATIENT COORDINATOR Ot E11.69 TYPE 2 DIABETES MELLITUS WITH OTHER SPEC 01/18/2019 LIZZETTE OLSON PATIENT COORDINATOR Ot M86.472 CHRONIC OSTEOMYELITIS W DRAINING SINUS, 01/19/2019 LIZZETTE OLSON PATIENT COORDINATOR Ot E11.69 TYPE 2 DIABETES MELLITUS WITH OTHER SPEC 01/19/2019 LIZZETTE OLSON R PATIENT COORDINATOR Ot M86.472 CHRONIC OSTEOMYELITIS W DRAINING SINUS, 01/20/2019 LIZZETTE OLSON R PATIENT COORDINATOR Ot E11.69 TYPE 2 DIABETES MELLITUS WITH OTHER SPEC 01/20/2019 LIZZETTE OLSON R PATIENT COORDINATOR Ot M86.472 CHRONIC OSTEOMYELITIS W DRAINING SINUS, 01/20/2019 LIZZETTE OLSON R PATIENT COORDINATOR Ot E11.69 TYPE 2 DIABETES MELLITUS WITH OTHER SPEC 01/20/2019 LIZZETTE OLSON R PATIENT COORDINATOR Ot M86.472 CHRONIC OSTEOMYELITIS W DRAINING SINUS, 01/20/2019 W[place]LEY LIZZETTE R PATIENT COORDINATOR Ot E11.69 TYPE 2 DIABETES MELLITUS WITH OTHER SPEC 01/20/2019 LIZZETTE OLSON R PATIENT COORDINATOR Ot M86.472 CHRONIC OSTEOMYELITIS W DRAINING SINUS, 01/21/2019 LIZZETTE OLSON R PATIENT COORDINATOR Ot E11.69 TYPE 2 DIABETES MELLITUS WITH OTHER SPEC 01/21/2019 LIZZETTE OLSON R PATIENT COORDINATOR Ot M86.472 CHRONIC OSTEOMYELITIS W DRAINING SINUS, 01/21/2019 LIZZETTE OLSON PATIENT COORDINATOR Ot E11.69 TYPE 2 DIABETES MELLITUS WITH OTHER SPEC 01/21/2019 LIZZETTE OLSON R PATIENT COORDINATOR Ot M86.472 CHRONIC OSTEOMYELITIS W DRAINING SINUS, 01/21/2019 KIMBER STAPLES MD Ot E11.621 TYPE 2 DIABETES MELLITUS WITH FOOT ULCER 01/21/2019 KIMBER STAPLES MD, Ot E11.69 TYPE 2 DIABETES MELLITUS WITH OTHER SPEC 01/21/2019 KIMBER STAPLES MD, Ot L97.526 NON-PRS [facility] OTH PRT L FOOT WITH BNE 01/21/2019 KIMBER STAPLES MD, Ot M86.472 CHRONIC OSTEOMYELITIS W DRAINING SINUS, 01/21/2019 KIMBER STAPLES MD Ot Z72 .0 TOBACCO USE 01/21/2019 KIMBER STAPLES MD, Ot E11.69 TYPE 2 DIABETES MELLITUS WITH OTHER SPEC 01/21/2019 KIMBER STAPLES MD, Ot M86.472 CHRONIC OSTEOMYELITIS W DRAINING SINUS, 01/21/2019 LIZZETTE OLSON PATIENT COORDINATOR Ot E11.69 TYPE 2 DIABETES MELLITUS WITH OTHER SPEC 01/21/2019 LIZZETTE OLSON PATIENT COORDINATOR Ot M86.472 CHRONIC OSTEOMYELITIS W DRAINING SINUS, 01/22/2019 LIZZETTE OLSON PATIENT COORDINATOR Ot E11.69 TYPE 2 DIABETES MELLITUS WITH OTHER SPEC 01/22/2019 LIZZETTE OLSON PATIENT COORDINATOR Ot M86.472 CHRONIC OSTEOMYELITIS W DRAINING SINUS, 01/23/2019 LIZZETTE OLSON PATIENT COORDINATOR Ot E11.69 TYPE 2 DIABETES MELLITUS WITH OTHER SPEC 01/23/2019 LIZZETTE OLSON PATIENT COORDINATOR Ot M86.472 CHRONIC OSTEOMYELITIS W DRAINING SINUS, 01/24/2019 LIZZETTE OLSON PATIENT COORDINATOR Ot E11.69 TYPE 2 DIABETES MELLITUS WITH OTHER SPEC 01/24/2019 LIZZETTE OLSON PATIENT COORDINATOR Ot M86.472 CHRONIC OSTEOMYELITIS W DRAINING SINUS, 01/25/2019 LIZZETTE OLSON R PATIENT COORDINATOR Ot E11.69 TYPE 2 DIABETES MELLITUS WITH OTHER SPEC 01/25/2019 LIZZETTE OLSON PATIENT COORDINATOR Ot M86.472 CHRONIC OSTEOMYELITIS W DRAINING SINUS, 01/25/2019 LIZZETTE OLSON PATIENT COORDINATOR Ot E11.69 TYPE 2 DIABETES MELLITUS WITH OTHER SPEC 01/25/2019 LIZZETTE OLSON PATIENT COORDINATOR Ot M86.472 CHRONIC OSTEOMYELITIS W DRAINING SINUS, 01/26/2019 LIZZETTE OLSON PATIENT COORDINATOR Ot E11.621 TYPE 2 DIABETES MELLITUS WITH FOOT ULCER 01/26/2019 LIZZETTE OLSON PATIENT COORDINATOR Ot L97.524 NON-PRS [facility]RON[facility] OTH PRT LEFT FOOT 01/26/2019 LIZZETTE OLSON PATIENT COORDINATOR Ot M86.472 CHRONIC OSTEOMYELITIS W DRAINING SINUS, 01/26/2019 LIZZETTE OLSON PATIENT COORDINATOR Ot Z72.0 TOBACCO USE 01/30/2019 LIZZETTE OLSON PATIENT COORDINATOR Ot E11.69 TYPE 2 DIABETES MELLITUS WITH OTHER SPEC 01/30/2019 LIZZETTE OLSON PATIENT COORDINATOR Ot M86.472 CHRONIC OSTEOMYELITIS W DRAINING SINUS, 01/30/2019 LIZZETTE OLSON PATIENT COORDINATOR Ot E11.621 TYPE 2 DIABETES MELLITUS WITH FOOT ULCER 01/30/2019 LIZZETTE OLSON PATIENT COORDINATOR Ot L97.524 NON-PRS [facility] OTH PRT LEFT FOOT 01/30/2019 LIZZETTE OLSON PATIENT COORDINATOR Ot M86.472 CHRONIC OSTEOMYELITIS W DRAINING SINUS, 01/30/2019 LIZZETTE OLSON PATIENT COORDINATOR Ot Z72.0 TOBACCO USE 02/02/2019 KIMBER STAPLES MD Ot E11.621 TYPE 2 DIABETES MELLITUS WITH FOOT ULCER 02/02/2019 KIMBER STAPLES MD Ot E11.69 TYPE 2 DIABETES MELLITUS WITH OTHER SPEC 02/02/2019 KIMBER STAPLES MD Ot L97.526 NON-PRS [facility] OT PRT L FOOT WITH BNE 02/02/2019 KIMBER STAPLES MD Ot M86.472 CHRONIC OSTEOMYELITIS W DRAINING SINUS, 02/02/2019 KIMBER STAPLES MD Ot Z72 .0 TOBACCO USE 02/03/2019 LIZZETTE OLSON PATIENT COORDINATOR Ot E11.69 TYPE 2 DIABETES MELLITUS WITH OTHER SPEC 02/03/2019 LIZZETTE OLSON PATIENT COORDINATOR Ot M86.472 CHRONIC OSTEOMYELITIS W DRAINING SINUS, 02/03/2019 LIZZETTE OLSON PATIENT COORDINATOR Ot E11.69 TYPE 2 DIABETES MELLITUS WITH OTHER SPEC 02/03/2019 LIZZETTE OLSON PATIENT COORDINATOR Ot M86.472 CHRONIC OSTEOMYELITIS W DRAINING SINUS, 02/05/2019 LIZZETTE OLSON PATIENT COORDINATOR Ot E11.621 TYPE 2 DIABETES MELLITUS WITH FOOT ULCER 02/05/2019 LIZZETTE OLSON PATIENT COORDINATOR Ot L97.526 NON-PRS [facility] OTH PRT L FOOT WITH BNE 02/05/2019 LIZZETTE OLSON PATIENT COORDINATOR Ot M86.472 CHRONIC OSTEOMYELITIS W DRAINING SINUS, 02/05/2019 LIZZETTE OLSON PATIENT COORDINATOR Ot Z72.0 TOBACCO USE 02/05/2019 LIZZETTE OLSON PATIENT COORDINATOR Ot E11.621 TYPE 2 DIABETES MELLITUS WITH FOOT ULCER 02/05/2019 LIZZETTE OLSON PATIENT COORDINATOR Ot L97.526 NON-PRS [facility] OT PRT L FOOT WITH BNE 02/05/2019 LIZZETTE OLSON PATIENT COORDINATOR Ot M86.472 CHRONIC OSTEOMYELITIS W DRAINING SINUS, 02/05/2019 LIZZETTE OLSON PATIENT COORDINATOR Ot Z72.0 TOBACCO USE 02/05/2019 LIZZETTE OLSON PATIENT COORDINATOR Ot E11.621 TYPE 2 DIABETES MELLITUS WITH FOOT ULCER 02/05/2019 LIZZETTE OLSON PATIENT COORDINATOR Ot L97.526 NON-PRS [facility] PRT L FOOT WITH BNE 02/05/2019 LIZZETTE OLSON PATIENT COORDINATOR Ot M86.472 CHRONIC OSTEOMYELITIS W DRAINING SINUS, 02/05/2019 LIZZETTE OLSON PATIENT COORDINATOR Ot Z72.0 TOBACCO USE 02/12/2019 KIMBER STAPLES MD Ot E11.621 TYPE 2 DIABETES MELLITUS WITH FOOT ULCER 02/12/2019 KIMBER STAPLES MD Ot L97.526 NON-PRS [facility] PRT L FOOT WITH BNE 02/12/2019 KIMBER STAPLES MD Ot M86.472 CHRONIC OSTEOMYELITIS W DRAINING SINUS, 02/12/2019 KIMBER STAPLES MD Ot Z72 .0 TOBACCO USE 02/16/2019 KIMBER STAPLES MD Ot E11.621 TYPE 2 DIABETES MELLITUS WITH FOOT ULCER 02/16/2019 KIMBER STAPLES MD Ot L97.526 NON-PRS [facility] PRT L FOOT WITH BNE 02/16/2019 KIMBER STAPLES MD Ot M86.472 CHRONIC OSTEOMYELITIS W DRAINING SINUS, 02/16/2019 KIMBER STAPLES MD Ot Z72 .0 TOBACCO USE 02/16/2019 RONA ENRIQUE MD Ot A41 .9 SEPSIS, UNSPECIFIED ORGANISM 02/16/2019 RONA ENRIQUE MD Ot B35 .1 TINEA UNGUIUM 02/16/2019 RONA ENRIQUE MD Ot E11.42 TYPE 2 DIABETES MELLITUS WITH DIABETIC P 02/16/2019 RONA ENRIQUE MD Ot E11.621 TYPE 2 DIABETES MELLITUS WITH FOOT ULCER 02/16/2019 RONA ENRIQUE MD Ot E11.65 TYPE 2 DIABETES MELLITUS WITH HYPERGLYCE 02/16/2019 RONA ENRIQUE MD Ot E11.69 TYPE 2 DIABETES MELLITUS WITH OTHER SPEC 02/16/2019 RONA ENRIQUE MD Ot E78.00 PURE HYPERCHOLESTEROLEMIA, UNSPECIFIED 02/16/2019 RONA ENRIQUE MD Ot F32 .9 MAJOR DEPRESSIVE DISORDER, SINGLE EPISOD 02/16/2019 RONA ENRIQUE MD Ot F41 .9 ANXIETY DISORDER, UNSPECIFIED 02/16/2019 RONA ENRIQUE MD Ot G25.81 RESTLESS LEGS SYNDROME 02/16/2019 RONA ENRIQUE MD Ot G47.30 SLEEP APNEA, UNSPECIFIED 02/16/2019 RONA ENRIQUE MD Ot H91.90 UNSPECIFIED HEARING LOSS, UNSPECIFIED EA 02/16/2019 RONA ENRIQUE MD Ot I10 ESSENTIAL (PRIMARY) HYPERTENSION 02/16/2019 RONA ENRIQUE MD Ot I25.10 ATHSCL HEART DISEASE OF [place] CORONARY 02/16/2019 RONA ENRIQUE MD Ot J44 .9 CHRONIC OBSTRUCTIVE PULMONARY DISEASE, U 02/16/2019 RONA ENRIQUE MD Ot J84 .9 INTERSTITIAL PULMONARY DISEASE, UNSPECIF 02/16/2019 RONA ENRIQUE MD Ot K21 .9 GASTRO-ESOPHAGEAL REFLUX DISEASE WITHOUT 02/16/2019 RONA ENRIQUE MD Ot L03.032 CELLULITIS OF LEFT TOE 02/16/2019 RONA ENRIQUE MD Ot L97.524 NON-PRS [facility] OTH PRT LEFT FOOT 02/16/2019 RONA ENRIQUE MD Ot M19.91 PRIMARY OSTEOARTHRITIS, UNSPECIFIED SITE 02/16/2019 RONA ENRIQUE MD Ot M79 .7 FIBROMYALGIA 02/16/2019 RONA ENRIQUE MD Ot M86 .9 OSTEOMYELITIS, UNSPECIFIED 02/16/2019 RONA ENRIQUE MD Ot Z77.29 CONTACT WITH AND EXPOSURE TO OTHER HAZAR 02/16/2019 RONA ENRIQUE MD Ot Z79 .4 BELLOWS TESTER (CURRENT) USE OF INSULIN 02/16/2019 RONA ENRIQUE MD Ot Z86.010 PERSONAL HISTORY OF COLONIC POLYPS 02/16/2019 RONA ENRIQUE MD Ot Z86.73 PRSNL HX OF TIA (TIA), AND CEREB INFRC W 02/16/2019 RONA ENRIQUE MD Ot Z87.891 PERSONAL HISTORY OF NICOTINE DEPENDENCE 02/16/2019 RONA ENRIQUE MD Ot Z91 .5 PERSONAL HISTORY OF SELF-HARM 02/16/2019 RONA ENRIQUE MD Ot A41 .9 SEPSIS, UNSPECIFIED ORGANISM 02/16/2019 RONA ENRIQUE MD Ot B35 .1 TINEA UNGUIUM 02/16/2019 RONA ENRIQUE MD Ot E11.42 TYPE 2 DIABETES MELLITUS WITH DIABETIC P 02/16/2019 RONA ENRIQUE MD Ot E11.621 TYPE 2 DIABETES MELLITUS WITH FOOT ULCER 02/16/2019 RONA ENRIQUE MD Ot E11.65 TYPE 2 DIABETES MELLITUS WITH HYPERGLYCE 02/16/2019 RONA ENRIQUE MD Ot E11.69 TYPE 2 DIABETES MELLITUS WITH OTHER SPEC 02/16/2019 RONA ENRIQUE MD Ot E78.00 PURE HYPERCHOLESTEROLEMIA, UNSPECIFIED 02/16/2019 RONA ENRIQUE MD Ot F32 .9 MAJOR DEPRESSIVE DISORDER, SINGLE EPISOD 02/16/2019 RONA ENRIQUE MD Ot F41 .9 ANXIETY DISORDER, UNSPECIFIED 02/16/2019 RONA ENRIQUE MD Ot G25.81 RESTLESS LEGS SYNDROME 02/16/2019 RONA ENRIQUE MD Ot G47.30 SLEEP APNEA, UNSPECIFIED 02/16/2019 RONA ENRIQUE MD Ot H91.90 UNSPECIFIED HEARING LOSS, UNSPECIFIED EA 02/16/2019 RONA ENRIQUE MD Ot I10 ESSENTIAL (PRIMARY) HYPERTENSION 02/16/2019 RONA ENRIQUE MD Ot I25.10 ATHSCL HEART DISEASE OF [place] CORONARY 02/16/2019 RONA ENRIQUE MD Ot J44 .9 CHRONIC OBSTRUCTIVE PULMONARY DISEASE, U 02/16/2019 RONA ENRIQUE MD Ot J84 .9 INTERSTITIAL PULMONARY DISEASE, UNSPECIF 02/16/2019 RONA ENRIQUE MD Ot K21 .9 GASTRO-ESOPHAGEAL REFLUX DISEASE WITHOUT 02/16/2019 RONA ENRIQUE MD Ot L03.032 CELLULITIS OF LEFT TOE 02/16/2019 RONA ENRIQUE MD Ot L97.524 NON-PRS [facility]RON[facility] OTH PRT LEFT FOOT 02/16/2019 RONA ENRIQUE MD Ot M19.91 PRIMARY OSTEOARTHRITIS, UNSPECIFIED SITE 02/16/2019 RONA ENRIQUE MD Ot M79 .7 FIBROMYALGIA 02/16/2019 RONA ENRIQUE MD Ot M86 .9 OSTEOMYELITIS, UNSPECIFIED 02/16/2019 RONA ENRIQUE MD Ot Z77.29 CONTACT WITH AND EXPOSURE TO OTHER HAZAR 02/16/2019 RONA ENRIQUE MD Ot Z79 .4 PENITENTIARY (CURRENT) USE OF INSULIN 02/16/2019 RONA ENRIQUE MD Ot Z86.010 PERSONAL HISTORY OF COLONIC POLYPS 02/16/2019 RONA ENRIQUE MD Ot Z86.73 PRSNL HX OF TIA (TIA), AND CEREB INFRC W 02/16/2019 RONA ENRIQUE MD, Ot Z87.891 PERSONAL HISTORY OF NICOTINE DEPENDENCE 02/16/2019 RONA ENRIQUE MD Ot Z91 .5 PERSONAL HISTORY OF SELF-HARM 02/17/2019 LIZZETTE OLSON APRN Ot E11.621 TYPE 2 DIABETES MELLITUS WITH FOOT ULCER 02/17/2019 LIZZETTE OLSON APRN Ot L97.526 NON-PRS [facility] OTH PRT L FOOT WITH BNE 02/17/2019 LIZZETTE OLSON APRN Ot M86.472 CHRONIC OSTEOMYELITIS W DRAINING SINUS, 02/17/2019 LIZZETTE OLSON APRN Ot Z72.0 TOBACCO USE 02/17/2019 RONA ENRIQUE MD Ot A41 .9 SEPSIS, UNSPECIFIED ORGANISM 02/17/2019 RONA ENRIQUE MD Ot B35 .1 TINEA UNGUIUM 02/17/2019 RONA ENRIQUE MD Ot E11.42 TYPE 2 DIABETES MELLITUS WITH DIABETIC P 02/17/2019 RONA ENRIQUE MD Ot E11.621 TYPE 2 DIABETES MELLITUS WITH FOOT ULCER 02/17/2019 RONA ENRIQUE MD Ot E11.65 TYPE 2 DIABETES MELLITUS WITH HYPERGLYCE 02/17/2019 RONA ENRIQUE MD Ot E11.69 TYPE 2 DIABETES MELLITUS WITH OTHER SPEC 02/17/2019 RONA ENRIQUE MD Ot E78.00 PURE HYPERCHOLESTEROLEMIA, UNSPECIFIED 02/17/2019 RONA ENRIQUE MD Ot F32 .9 MAJOR DEPRESSIVE DISORDER, SINGLE EPISOD 02/17/2019 RONA ENRIQUE MD Ot F41 .9 ANXIETY DISORDER, UNSPECIFIED 02/17/2019 RONA ENRIQUE MD Ot G25.81 RESTLESS LEGS SYNDROME 02/17/2019 RONA ENRIQUE MD Ot G47.30 SLEEP APNEA, UNSPECIFIED 02/17/2019 RONA ENRIQUE MD Ot G47.33 OBSTRUCTIVE SLEEP APNEA (ADULT) (PEDIATR 02/17/2019 RONA ENRIQUE MD Ot H91.90 UNSPECIFIED HEARING LOSS, UNSPECIFIED EA 02/17/2019 RONA ENRIQUE MD Ot I10 ESSENTIAL (PRIMARY) HYPERTENSION 02/17/2019 RONA ENRIQUE MD Ot I25.10 ATHSCL HEART DISEASE OF [place] CORONARY 02/17/2019 RONA ENRIQUE MD Ot J44 .9 CHRONIC OBSTRUCTIVE PULMONARY DISEASE, U 02/17/2019 RONA ENRIQUE MD Ot J84 .9 INTERSTITIAL PULMONARY DISEASE, UNSPECIF 02/17/2019 RONA ENRIQUE MD Ot K21 .9 GASTRO-ESOPHAGEAL REFLUX DISEASE WITHOUT 02/17/2019 RONA ENRIQUE MD Ot L03.032 CELLULITIS OF LEFT TOE 02/17/2019 RONA ENRIQUE MD Ot L97.524 NON-PRS [facility] OTH PRT LEFT FOOT 02/17/2019 RONA ENRIQUE MD Ot L97.526 NON-PRS [facility] OTH PRT L FOOT WITH BNE 02/17/2019 RONA ENRIQUE MD Ot M19.91 PRIMARY OSTEOARTHRITIS, UNSPECIFIED SITE 02/17/2019 RONA ENRIQUE MD Ot M20.41 OTHER HAMMER TOE(S) (ACQUIRED), RIGHT FO 02/17/2019 RONA ENRIQUE MD Ot M20.42 OTHER HAMMER TOE(S) (ACQUIRED), LEFT ALECIA 02/17/2019 RONA ENRIQUE MD Ot M47 .9 SPONDYLOSIS, UNSPECIFIED 02/17/2019 RONA ENRIQUE MD Ot M79 .7 FIBROMYALGIA 02/17/2019 RONA ENRIQUE MD Ot M86.672 OTHER CHRONIC OSTEOMYELITIS, LEFT ANKLE 02/17/2019 RONA ENRIQUE MD Ot M86 .9 OSTEOMYELITIS, UNSPECIFIED 02/17/2019 RONA ENRIQUE MD Ot M89.572 OSTEOLYSIS, LEFT ANKLE AND FOOT 02/17/2019 RONA ENRIQUE MD Ot Z77.29 CONTACT WITH AND EXPOSURE TO OTHER HAZAR 02/17/2019 RONA ENRIQUE MD Ot Z79 .4 PENITENTIARY (CURRENT) USE OF INSULIN 02/17/2019 RONA ENRIQUE MD Ot Z86.010 PERSONAL HISTORY OF COLONIC POLYPS 02/17/2019 RONA ENRIQUE MD Ot Z86.19 PERSONAL HISTORY OF OTHER INFECTIOUS AND 02/17/2019 RONA ENRIQUE MD Ot Z86.73 PRSNL HX OF TIA (TIA), AND CEREB INFRC W 02/17/2019 RONA ENRIQUE MD Ot Z87.891 PERSONAL HISTORY OF NICOTINE DEPENDENCE 02/17/2019 RONA ENRIQUE MD Ot Z91 .5 PERSONAL HISTORY OF SELF-HARM 02/20/2019 LIZZETTE OLSON PATIENT COORDINATOR Ot E11.621 TYPE 2 DIABETES MELLITUS WITH FOOT ULCER 02/20/2019 LIZZETTE OLSON PATIENT COORDINATOR Ot L97.526 NON-PRS [facility] OTH PRT L FOOT WITH BNE 02/20/2019 LIZZETTE OLSON PATIENT COORDINATOR Ot M86.472 CHRONIC OSTEOMYELITIS W DRAINING SINUS, 02/20/2019 LIZZETTE OLSON PATIENT COORDINATOR Ot Z72.0 TOBACCO USE 03/01/2019 ADITYA APODACA PATIENT COORDINATOR Ot G47.33 OBSTRUCTIVE SLEEP APNEA (ADULT) (PEDIATR 03/01/2019 ADITYA APODACA PATIENT COORDINATOR Ot J44.9 CHRONIC OBSTRUCTIVE PULMONARY DISEASE, U 03/01/2019 ADITYA APODACA PATIENT COORDINATOR Ot 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 DISEASE, UNSPECIF 03/01/2019 ADITYA APODACA PATIENT COORDINATOR Ot J98.4 OTHER DISORDERS OF LUNG 03/01/2019 ADITYA APODACA PATIENT COORDINATOR Ot M35.00 SICCA SYNDROME, UNSPECIFIED 03/01/2019 ADITYA APODACA PATIENT COORDINATOR Ot R91.8 OTHER NONSPECIFIC ABNORMAL FINDING OF DEL 03/03/2019 ADITYA APODACA PATIENT COORDINATOR Ot G47.33 OBSTRUCTIVE SLEEP APNEA (ADULT) (PEDIATR 03/03/2019 ADITYA APODACA PATIENT COORDINATOR Ot J44.9 CHRONIC OBSTRUCTIVE PULMONARY DISEASE, U 03/03/2019 ADITYA APODACA PATIENT COORDINATOR Ot 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 DISEASE, UNSPECIF 03/03/2019 ADITYA APODACA PATIENT COORDINATOR Ot J98.4 OTHER DISORDERS OF LUNG 03/03/2019 ADITYA APODACA APRN Ot M35.00 SICCA SYNDROME, UNSPECIFIED 03/03/2019 ADITYA APODACA APRN Ot R91.8 OTHER NONSPECIFIC ABNORMAL FINDING OF DEL 03/07/2019 KIMBER STAPLES MD, Ot E11.621 TYPE 2 DIABETES MELLITUS WITH FOOT ULCER 03/07/2019 KIMBER STAPLES MD, Ot L97.526 NON-PRS [facility] OTH PRT L FOOT WITH BNE 03/07/2019 KIMBER STAPLES MD, Ot M86.472 CHRONIC OSTEOMYELITIS W DRAINING SINUS, 03/07/2019 KIMBER STAPLES MD, Ot Z72 .0 TOBACCO USE 03/10/2019 ADITYA APODACA APRN Ot G47.33 OBSTRUCTIVE SLEEP APNEA (ADULT) (PEDIATR 03/10/2019 ADITYA APODACA APRN Ot J44.9 CHRONIC OBSTRUCTIVE PULMONARY DISEASE, U 03/10/2019 ADITYA APODACA APRN Ot 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 DISEASE, UNSPECIF 03/10/2019 ADITYA APODACA APRN Ot J98.4 OTHER DISORDERS OF LUNG 03/10/2019 ADITYA APODACA APRN Ot M35.00 SICCA SYNDROME, UNSPECIFIED 03/10/2019 ADITYA APODACA APRN Ot R91.8 OTHER NONSPECIFIC ABNORMAL FINDING OF DEL 03/11/2019 KIMBER STAPLES MD, Ot E11.621 TYPE 2 DIABETES MELLITUS WITH FOOT ULCER 03/11/2019 KIMBER STAPLES MD, Ot L97.522 NON-PRS CHRON[facility] OTH PRT LEFT FOOT 03/11/2019 KIMBER STAPLES MD, Ot M86.472 CHRONIC OSTEOMYELITIS W DRAINING SINUS, 03/13/2019 LIZZETTE OLSON APRN Ot E11.621 TYPE 2 DIABETES MELLITUS WITH FOOT ULCER 03/13/2019 LIZZETTE OLSON APRN Ot L97.521 NON-PRS CHRON[facility] OTH PRT L FOOT NGUYEN 03/13/2019 LIZZETTE OLSON APRN Ot M86.472 CHRONIC OSTEOMYELITIS W DRAINING SINUS, 03/13/2019 LIZZETTE OLSON APRN Ot S92.512A DISP FX OF PROXIMAL PHALAN[place] OF LEFT LESS 03/13/2019 LIZZETTE OLSON APRN Ot 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 03/13/2019 LIZZETTE OLSON APRN Ot E11.621 TYPE 2 DIABETES MELLITUS WITH FOOT ULCER 03/13/2019 LIZZETTE OLSON APRN Ot L97.521 NON-PRS CHRONIC [facility] OTH PRT L FOOT NGUYEN 03/13/2019 LIZZETTE OLSON APRN Ot M86.472 CHRONIC OSTEOMYELITIS W DRAINING SINUS, 03/14/2019 BIB RODRIGUEZ DOI Ot A41.1 SEPSIS DUE TO OTHER SPECIFIED STAPHYLOCO 03/14/2019 BIB RODRIGUEZ DOI Ot E11.40 TYPE 2 DIABETES MELLITUS WITH DIABETIC N 03/14/2019 MICHAEL LAGUNA SHANNON Ot E78.00 PURE HYPERCHOLESTEROLEMIA, UNSPECIFIED 03/14/2019 MICHAEL LAGUNA SHANNON Ot F32.9 MAJOR DEPRESSIVE DISORDER, SINGLE EPISOD 03/14/2019 MICHAEL LAGUNA SHANNON Ot F41.9 ANXIETY DISORDER, UNSPECIFIED 03/14/2019 MICHAEL LAGUNA SHANNON Ot G25.81 RESTLESS LEGS SYNDROME 03/14/2019 MICHAEL LAGUNA SHANNON Ot G47.33 OBSTRUCTIVE SLEEP APNEA (ADULT) (PEDIATR 03/14/2019 MICHAEL LAGUNA SHANNON Ot I10 ESSENTIAL (PRIMARY) HYPERTENSION 03/14/2019 MICHAEL LAGUNA SHANNON Ot I25.10 ATHSCL HEART DISEASE OF [place] CORONARY 03/14/2019 MICHAEL LAGUNA SHANNON Ot I44.7 LEFT BUNDLE-BRANCH BLOCK, UNSPECIFIED 03/14/2019 BIB RODRIGUEZ DOI Ot J44.9 CHRONIC OBSTRUCTIVE PULMONARY DISEASE, U 03/14/2019 MICHAEL LAGUNA SHANNON Ot 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 DISEASE, UNSPECIF 03/14/2019 MICHAEL LAGUNA SHANNON Ot K21.9 GASTRO-ESOPHAGEAL REFLUX DISEASE WITHOUT 03/14/2019 MICHAEL LAGUNA SHANNON Ot L03.11 6 CELLULITIS OF LEFT LOWER LIMB 03/14/2019 MICHAEL LAGUNA SHANNON Ot M79.7 FIBROMYALGIA 03/14/2019 MICHAEL LAGUNA SHANNON Ot S92.51 2A DISP FX OF PROXIMAL PHALANX OF LEFT LESS 03/14/2019 MICHAEL LAGUNA SHANNON Ot T87.44 INFECTION OF AMPUTATION STUMP, LEFT LOWE 03/14/2019 MICHAEL LAGUNA SHANNON Ot T87.81 DEHISCENCE OF AMPUTATION STUMP 03/14/2019 MICHAEL LAGUNA SHANNON Ot W50.0X XA ACCIDENTAL HIT OR STRIKE BY ANOTHER PERS 03/14/2019 SHANNON RODRIGUEZ DO Ot Z79.4 BELLOWS TESTER (CURRENT) USE OF INSULIN 03/14/2019 SHANNON RODRIGUEZ DO Ot Z86.73 PRSNL HX OF TIA (TIA), AND CEREB INFRC W 03/14/2019 SHANNON RODRIGUEZ DO Ot Z87.89 1 PERSONAL HISTORY OF NICOTINE DEPENDENCE 03/16/2019 KIMBER STAPLES MD, Ot E11.621 TYPE 2 DIABETES MELLITUS WITH FOOT ULCER 03/16/2019 KIMBER STAPLES MD, Ot L97.526 NON-PRS [facility] OTH PRT L FOOT WITH BNE 03/16/2019 KIMBER STAPLES MD, Ot M86.472 CHRONIC OSTEOMYELITIS W DRAINING SINUS, 03/16/2019 KIMBER STAPLES MD, Ot Z72 .0 TOBACCO USE 03/20/2019 KIMBER STAPLES MD, Ot E11.42 TYPE 2 DIABETES MELLITUS WITH DIABETIC P 03/20/2019 KIMBER STAPLES MD, Ot E11.621 TYPE 2 DIABETES MELLITUS WITH FOOT ULCER 03/20/2019 KIMBER STAPLES MD, Ot E11.69 TYPE 2 DIABETES MELLITUS WITH OTHER SPEC 03/20/2019 KIMBER STAPLES MD, Ot L97.521 NON-PRS CHRONIC [facility] OTH PRT L FOOT NGUYEN 03/20/2019 KIMBER STAPLES MD, Ot L97.522 NON-PRS CHRONIC [facility] OTH PRT LEFT FOOT 03/20/2019 KIMBER STAPLES MD, Ot M86.472 CHRONIC OSTEOMYELITIS W DRAINING SINUS, 03/22/2019 KIMBER STAPLES MD Ot E11.42 TYPE 2 DIABETES MELLITUS WITH DIABETIC P 03/22/2019 KIMBER STAPLES MD, Ot E11.621 TYPE 2 DIABETES MELLITUS WITH FOOT ULCER 03/22/2019 KIMBER STAPLES MD Ot E11.69 TYPE 2 DIABETES MELLITUS WITH OTHER SPEC 03/22/2019 KIMBER STAPLES MD, Ot L97.521 NON-PRS CHRONIC [facility] OTH PRT L FOOT NGUYEN 03/22/2019 KIMBER STAPLES MD, Ot L97.522 NON-PRS CHRONIC [facility] OTH PRT LEFT FOOT 03/22/2019 KIMBER STAPLES MD, Ot M86.472 CHRONIC OSTEOMYELITIS W DRAINING SINUS, 03/24/2019 LIZZETTE OLSON APRN Ot E11.621 TYPE 2 DIABETES MELLITUS WITH FOOT ULCER 03/24/2019 LIZZETTE OLSON APRN Ot L97.521 NON-PRS CHRONIC [facility] OTH PRT L FOOT NGUYEN 03/24/2019 LIZZETTE OLSON PATIENT COORDINATOR Ot M86.472 CHRONIC OSTEOMYELITIS W DRAINING SINUS, 03/24/2019 LIZZETTE OLSON PATIENT COORDINATOR Ot E11.621 TYPE 2 DIABETES MELLITUS WITH FOOT ULCER 03/24/2019 LIZZETTE OLSON PATIENT COORDINATOR Ot L97.521 NON-PRS CHRONIC [facility] OTH PRT L FOOT NGUYEN 03/24/2019 LIZZETTE OLSON PATIENT COORDINATOR Ot M86.472 CHRONIC OSTEOMYELITIS W DRAINING SINUS, 03/24/2019 LIZZETTE OLSON PATIENT COORDINATOR Ot S92.512A DISP FX OF PROXIMAL PHALANX OF LEFT LESS 03/24/2019 LIZZETTE OLSON PATIENT COORDINATOR Ot 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 03/26/2019 KIMBER STAPLES MD Ot E11.42 TYPE 2 DIABETES MELLITUS WITH DIABETIC P 03/26/2019 KIMBER STAPLES MD, Ot E11.621 TYPE 2 DIABETES MELLITUS WITH FOOT ULCER 03/26/2019 KIMBER STAPLES MD, Ot L97.522 NON-PRS CHRONIC ULCER OTH PRT LEFT FOOT 03/31/2019 KIMBER STAPLES MD Ot E11.42 TYPE 2 DIABETES MELLITUS WITH DIABETIC P 03/31/2019 KIMBER STAPLES MD Ot E11.621 TYPE 2 DIABETES MELLITUS WITH FOOT ULCER 03/31/2019 KIMBER STAPLES MD Ot E11.69 TYPE 2 DIABETES MELLITUS WITH OTHER SPEC 03/31/2019 KIMBER STAPLES MD, Ot L97.521 NON-PRS CHRONIC ULCER OTH PRT L FOOT NGUYEN 03/31/2019 KIMBER STAPLES MD, Ot L97.522 NON-PRS CHRONIC ULCER OTH PRT LEFT FOOT 03/31/2019 KIMBER STAPLES MD Ot M86.472 CHRONIC OSTEOMYELITIS W DRAINING SINUS, 04/22/2019 KIMBER STAPLES MD Ot E11.42 TYPE 2 DIABETES MELLITUS WITH DIABETIC P 04/22/2019 KIMBER STAPLES MD Ot E11.621 TYPE 2 DIABETES MELLITUS WITH FOOT ULCER 04/22/2019 KIMBER STAPLES MD, Ot L97.522 NON-PRS CHRONIC ULCER OTH PRT LEFT FOOT 05/05/2019 KIMBER STAPLES MD Ot E11.42 TYPE 2 DIABETES MELLITUS WITH DIABETIC P 05/05/2019 KIMBER STAPLES MD Ot E11.621 TYPE 2 DIABETES MELLITUS WITH FOOT ULCER 05/05/2019 KIMBER STAPLES MD Ot L97.522 NON-PRS CHRONIC ULCER OTH PRT LEFT FOOT 05/29/2019 KIMBER STAPLES MD Ot E11.42 TYPE 2 DIABETES MELLITUS WITH DIABETIC P 05/29/2019 KIMBER STAPLES MD, Ot E11.52 TYPE 2 DIABETES W DIABETIC PERIPHERAL AN 05/29/2019 KIMBER STAPLES MD, Ot E11.621 TYPE 2 DIABETES MELLITUS WITH FOOT ULCER 05/29/2019 KIMBER STAPLES MD Ot I96 GANGRENE, NOT ELSEWHERE CLASSIFIED 05/29/2019 KIMBER STAPLES MD, Ot L97.521 NON-PRS CHRONIC ULCER OTH PRT L FOOT NGUYEN 05/29/2019 KIMBER STAPLES MD, Ot L97.522 NON-PRS CHRONIC ULCER OTH PRT LEFT FOOT 05/29/2019 KIMBER STAPLES MD Ot M20.42 OTHER HAMMER TOE(S) (ACQUIRED), LEFT ALECIA 06/30/2019 ADITYA APODACA APRN Ot G47.33 OBSTRUCTIVE SLEEP APNEA (ADULT) (PEDIATR 06/30/2019 ADITYA APODACA PATIENT COORDINATOR Ot J44.9 CHRONIC OBSTRUCTIVE PULMONARY DISEASE, U 06/30/2019 ADITYA APODACA PATIENT COORDINATOR Ot 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 DISEASE, UNSPECIF 06/30/2019 ADITYA APODACA PATIENT COORDINATOR Ot M35.00 SICCA SYNDROME, UNSPECIFIED 06/30/2019 ADITYA APODACA PATIENT COORDINATOR Ot R91.1 SOLITARY PULMONARY NODULE 06/30/2019 ADITYA APODACA APRN Ot Z72.0 TOBACCO USE 07/02/2019 ADITYA APODACA PATIENT COORDINATOR Ot G47.33 OBSTRUCTIVE SLEEP APNEA (ADULT) (PEDIATR 07/02/2019 ADITYA APODACA PATIENT COORDINATOR Ot J44.9 CHRONIC OBSTRUCTIVE PULMONARY DISEASE, U 07/02/2019 ADITYA APODACA PATIENT COORDINATOR Ot 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 DISEASE, UNSPECIF 07/02/2019 ADITYA APODACA PATIENT COORDINATOR Ot M35.00 SICCA SYNDROME, UNSPECIFIED 07/02/2019 ADITYA APODACA PATIENT COORDINATOR Ot R91.1 SOLITARY PULMONARY NODULE 07/02/2019 ADITYA APODACA PATIENT COORDINATOR Ot Z72.0 TOBACCO USE 07/06/2019 ALICIA WALLIS, JUSTICE Parker Ot E78. 2 MIXED HYPERLIPIDEMIA 07/08/2019 JUSTICE VARGAS MD Ot F17.201 NICOTINE DEPENDENCE, UNSPECIFIED, IN REM 07/08/2019 JUSTICE VARGAS MD Ot I07. 1 RHEUMATIC TRICUSPID INSUFFICIENCY 07/08/2019 JUSTICE VARGAS MD Ot I44. 7 LEFT BUNDLE-BRANCH BLOCK, UNSPECIFIED 07/08/2019 JUSTICE VARGAS MD Ot I51. 0 CARDIAC SEPTAL DEFECT, ACQUIRED 07/08/2019 JUSTICE VARGAS MD Ot I51. 89 OTHER ILL-DEFINED HEART DISEASES 07/08/2019 ADITYA APODACA APRN Ot G47.33 OBSTRUCTIVE SLEEP APNEA (ADULT) (PEDIATR 07/08/2019 ADITYA APODACA APRN Ot J44.9 CHRONIC OBSTRUCTIVE PULMONARY DISEASE, U 07/08/2019 ADITYA APODACA APRN Ot 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 DISEASE, UNSPECIF 07/08/2019 ADITYA APODACA APRN Ot M35.00 SICCA SYNDROME, UNSPECIFIED 07/08/2019 ADITYA APODACA APRN Ot R91.1 SOLITARY PULMONARY NODULE 07/08/2019 ADITYA APODACA APRN Ot Z72.0 TOBACCO USE 07/21/2019 JUSTICE VARGAS MD Ot F17.201 NICOTINE DEPENDENCE, UNSPECIFIED, IN REM 07/21/2019 JUSTICE VARGAS MD Ot I07. 1 RHEUMATIC TRICUSPID INSUFFICIENCY 07/21/2019 JUSTICE VARGAS MD Ot I44. 7 LEFT BUNDLE-BRANCH BLOCK, UNSPECIFIED 07/21/2019 JUSTICE VARGAS MD Ot I51. 0 CARDIAC SEPTAL DEFECT, ACQUIRED 07/21/2019 JUSTICE VARGAS MD Ot I51. 89 OTHER ILL-DEFINED HEART DISEASES 08/06/2019 JENNIFER WALLIS, JULIET Pace Ot Z79 .2 PENITENTIARY (CURRENT) USE OF ANTIBIOTICS 08/18/2019 ADITYA APODACA APRN Ot F17.201 NICOTINE DEPENDENCE, UNSPECIFIED, IN REM 08/18/2019 ADITYA APODACA APRN Ot J06.9 ACUTE UPPER RESPIRATORY INFECTION, UNSPE 08/18/2019 ADITYA APODACA APRN Ot J44.9 CHRONIC OBSTRUCTIVE PULMONARY DISEASE, U 08/18/2019 ADITYA APODACA APRN Ot R09.02 HYPOXEMIA 08/22/2019 WYNN DO, RAN L Ot E11.4 0 TYPE 2 DIABETES MELLITUS WITH DIABETIC N 08/22/2019 WYNN DO, RAN L Ot E11.6 21 TYPE 2 DIABETES MELLITUS WITH FOOT ULCER 08/22/2019 WYNN DO, RAN L Ot E11.6 9 TYPE 2 DIABETES MELLITUS WITH OTHER SPEC 08/22/2019 WYNN DO, RAN L Ot E78.0 0 PURE HYPERCHOLESTEROLEMIA, UNSPECIFIED 08/22/2019 WYNN DO, RAN L Ot F32.9 MAJOR DEPRESSIVE DISORDER, SINGLE EPISOD 08/22/2019 WYNN DO, RAN L Ot F41.9 ANXIETY DISORDER, UNSPECIFIED 08/22/2019 WYNN DO, RAN L Ot I10 ESSENTIAL (PRIMARY) HYPERTENSION 08/22/2019 WYNN DO, RAN L Ot I25.1 0 ATHSCL HEART DISEASE OF [place] CORONARY 08/22/2019 WYNN DO, RAN L Ot J18.9 PNEUMONIA, UNSPECIFIED ORGANISM 08/22/2019 WYNN DO, RAN L Ot J44.9 CHRONIC OBSTRUCTIVE PULMONARY DISEASE, U 08/22/2019 WYNN DO, RAN L Ot K21.9 GASTRO-ESOPHAGEAL REFLUX DISEASE WITHOUT 08/22/2019 WYNN DO, RAN L Ot M79.7 FIBROMYALGIA 08/22/2019 WYNN DO, RAN L Ot M86.9 OSTEOMYELITIS, UNSPECIFIED 08/22/2019 WYNN DO, RAN L Ot R04.2 HEMOPTYSIS 08/22/2019 WYNN DO, RAN L Ot R94.2 ABNORMAL RESULTS OF PULMONARY FUNCTION S 08/22/2019 WYNN DO, RAN L Ot Z79.4 BELLOWS TESTER (CURRENT) USE OF INSULIN 08/22/2019 WYNN DO, RAN L Ot Z80.0 FAMILY HISTORY OF MALIGNANT NEOPLASM OF 08/22/2019 WYNN DO, RAN L Ot Z86.0 10 PERSONAL HISTORY OF COLONIC POLYPS 08/22/2019 WYNN DO, RAN L Ot Z86.7 3 PRSNL HX OF TIA (TIA), AND CEREB INFRC W 08/22/2019 WYNN DO, RAN L Ot Z87.8 91 PERSONAL HISTORY OF NICOTINE DEPENDENCE 08/22/2019 WYNN DO, RAN L Ot Z88.1 ALLERGY STATUS TO OTHER ANTIBIOTIC AGENT 08/22/2019 WYNN DO, RAN L Ot 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 08/22/2019 WYNN DO, RAN L Ot Z99.8 1 DEPENDENCE ON SUPPLEMENTAL OXYGEN 08/24/2019 WYNN DO, RAN L Ot E11.4 0 TYPE 2 DIABETES MELLITUS WITH DIABETIC N 08/24/2019 WYNN DO, RAN L Ot E11.6 21 TYPE 2 DIABETES MELLITUS WITH FOOT ULCER 08/24/2019 WYNN DO, RAN L Ot E11.6 9 TYPE 2 DIABETES MELLITUS WITH OTHER SPEC 08/24/2019 WYNN DO, RAN L Ot E78.0 0 PURE HYPERCHOLESTEROLEMIA, UNSPECIFIED 08/24/2019 WYNN DO, RAN L Ot F32.9 MAJOR DEPRESSIVE DISORDER, SINGLE EPISOD 08/24/2019 WYNN DO, RAN L Ot F41.9 ANXIETY DISORDER, UNSPECIFIED 08/24/2019 WYNN DO, RAN L Ot I10 ESSENTIAL (PRIMARY) HYPERTENSION 08/24/2019 WYNN DO, RAN L Ot I25.1 0 ATHSCL HEART DISEASE OF [place] CORONARY 08/24/2019 WYNN DO, RAN L Ot J18.9 PNEUMONIA, UNSPECIFIED ORGANISM 08/24/2019 WYNN DO, RAN L Ot J44.9 CHRONIC OBSTRUCTIVE PULMONARY DISEASE, U 08/24/2019 WYNN DO, RAN L Ot K21.9 GASTRO-ESOPHAGEAL REFLUX DISEASE WITHOUT 08/24/2019 WYNN DO, RAN L Ot M79.7 FIBROMYALGIA 08/24/2019 WYNN DO, RAN L Ot M86.9 OSTEOMYELITIS, UNSPECIFIED 08/24/2019 WYNN DO, RAN L Ot R04.2 HEMOPTYSIS 08/24/2019 WYNN DO, RAN L Ot R94.2 ABNORMAL RESULTS OF PULMONARY FUNCTION S 08/24/2019 WYNN DO, RAN L Ot Z79.4 BELLOWS TESTER (CURRENT) USE OF INSULIN 08/24/2019 WYNN DO, RAN L Ot Z80.0 FAMILY HISTORY OF MALIGNANT NEOPLASM OF 08/24/2019 WYNN DO, RAN L Ot Z86.0 10 PERSONAL HISTORY OF COLONIC POLYPS 08/24/2019 WYNN DO, RAN L Ot Z86.7 3 PRSNL HX OF TIA (TIA), AND CEREB INFRC W 08/24/2019 WYNN DO, RAN L Ot Z87.8 91 PERSONAL HISTORY OF NICOTINE DEPENDENCE 08/24/2019 WYNN DO, RAN L Ot Z88.1 ALLERGY STATUS TO OTHER ANTIBIOTIC AGENT 08/24/2019 HYUN WYNN DOR Gray Ot 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 08/24/2019 RAN WYNN DO Ot Z99.8 1 DEPENDENCE ON SUPPLEMENTAL OXYGEN 08/24/2019 ADITYA APODACA PATIENT COORDINATOR Ot J06.9 ACUTE UPPER RESPIRATORY INFECTION, UNSPE 08/24/2019 ADITYA APODACA PATIENT COORDINATOR Ot R91.1 SOLITARY PULMONARY NODULE 08/31/2019 ADITYA APODACA PATIENT COORDINATOR Ot J44.9 CHRONIC OBSTRUCTIVE PULMONARY DISEASE, U 08/31/2019 ADITYA APODACA PATIENT COORDINATOR Ot 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 DISEASE, UNSPECIF 08/31/2019 ADITYA APODACA PATIENT COORDINATOR Ot R91.1 SOLITARY PULMONARY NODULE 08/31/2019 ADITYA APODACA PATIENT COORDINATOR Ot J44.9 CHRONIC OBSTRUCTIVE PULMONARY DISEASE, U 08/31/2019 ADITYA APODACA PATIENT COORDINATOR Ot 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 DISEASE, UNSPECIF 08/31/2019 ADITYA APODACA PATIENT COORDINATOR Ot R91.1 SOLITARY PULMONARY NODULE 08/31/2019 ADITYA APODACA PATIENT COORDINATOR Ot F17.201 NICOTINE DEPENDENCE, UNSPECIFIED, IN REM 08/31/2019 ADITYA APODACA APRN Ot J06.9 ACUTE UPPER RESPIRATORY INFECTION, UNSPE 08/31/2019 ADITYA APODACA APRN Ot J44.9 CHRONIC OBSTRUCTIVE PULMONARY DISEASE, U 08/31/2019 ADITYA APODACA PATIENT COORDINATOR Ot R09.02 HYPOXEMIA Procedures Code Description Performed By Per formed On 37.23 RT/L EFT HEART CARD CATH 12/27/2007 88.53 LT H EART ANGIOCARDIOGRAM 12/27/2007 88.56 JONO GABE ARTERIOGR-2 CATH 12/27/2007 23382 A1C (IN-HOUSE) 08/15/2012 37500 URIN E DRUG SCREEN (IN-HOUSE) 08/22/2012 99129 URIN E DRUG SCREEN (IN-HOUSE) 09/05/2012 32253 ROUT INE VENIPUNCTURE 09/08/2012 83790 CBC 09/08/2012 45904 LIPI D PANEL 09/09/2012 36325 CMP 09/09/2012 [id number] GF R CALC (RESULT ONLY) 09/09/2012 17083 TSH 09/09/2012 65842 URIN E DRUG SCREEN (IN-HOUSE) 09/22/2012 59870 ROUT INE VENIPUNCTURE 10/08/2012 51431 CBC 10/08/2012 URINEDRUG URINE DRUG SCREEN (CON'F) 10/09/2012 31637 XRAY CHEST 2 VIEW 10/29/2012 69215 MYELOGRAM 10/29/2012 15854 PSYC H DIAGNOSTIC EVALUATION 10/29/2012 27371 PULM ONARY FUNCTION TEST (IN- HOUSE) 10/29/2012 43433 URIN E FENTANYL 10/31/2012 61478 SPIR OMETRY 11/27/2012 44492 BRON CHODILATION PRE/POST 11/27/2012 47396 RESP IRATORY FLOW VOLUME LOOP 11/27/2012 49691 A1C (IN-HOUSE) 12/01/2012 16009 URIN E DRUG SCREEN (IN-HOUSE) 12/01/2012 65120 PSYT X PT&/FAMILY 45 MINUTES 12/02/2012 25937 LEIDY URE BLOOD OXYGEN LEVEL 12/03/2012 86842 PSYT X PT&/FAMILY 45 MINUTES 01/08/2013 31406 PSYT X PT&/FAMILY 45 MINUTES 01/20/2013 50436 URIN E DRUG SCREEN (IN-HOUSE) 02/26/2013 58036 SLEE P STUDY 03/03/2013 60110 OXIMETRY 05/01/2013 55941 ECHO 2D 05/05/2013 94.65 DRUG DETOXIFICATION 05/31/2013 76735 A1C (IN-HOUSE) 07/08/2013 37.22 LEFT HEART CARDIAC CATH 10/05/2013 88.53 LT H EART ANGIOCARDIOGRAM 10/05/2013 88.56 JONO GABE ARTERIOGR-2 CATH 10/05/2013 28480 A1C (IN-HOUSE) 10/23/2013 PULMONARY BRENDON PLUNKETT 10/23/2013 64005 ROUT INE VENIPUNCTURE 12/17/2013 06513 CMP 12/17/2013 12759 URIC ACID 12/17/2013 51790 XRAY TOE(S) RIGHT MIN 2 VIEWS 12/31/2013 PODIATRY W ILDE, SARAH 12/31/2013 PHYSICAL W OUND CARE, MTC 02/01/2014 32376 A1C (IN-HOUSE) 02/01/2014 91750 CULT URE WOUND (AEROBIC) 02/04/2014 63286 OXIMETRY 02/09/2014 06489 DEBR KIYA SKIN FULL 03/05/2014 88394 PSYC H DIAGNOSTIC EVALUATION 03/12/2014 58780 PSYT X PT&/FAMILY 45 MINUTES 03/30/2014 87497 MICR O ALBUMIN-IN HOUSE 05/12/2014 40147 A1C (IN-HOUSE) 05/12/2014 62515 ROUT INE VENIPUNCTURE 06/22/2014 13109 GLUC OSE FINGER STICK 06/22/2014 22525 UA L DIONICIO DIP 06/22/2014 11477 CBC 06/22/2014 12003 CMP 06/22/2014 [id number] GF R CALC (RESULT ONLY) 06/22/2014 47617 GLUC OSE FINGER STICK 06/23/2014 GENERAL S ABBEY RAJPUTTT 06/29/2014 69214 ROUT INE VENIPUNCTURE 06/30/2014 70581 CBC 06/30/2014 [id number] GF R CALC (RESULT ONLY) 06/30/2014 78091 BMP 06/30/2014 40764 MRI SPINE (LUMBAR) W/O CONTRAST 12/16/2014 [id number] DE TACHMENT AT LEFT 1ST TOE, COMPLETE, OP 02/16/2019 Results Test Result Range Methicillin resistant Staphylococcus aur eus (MRSA) screening culture - 06/21/16 11:10 Methicillin resistant Staphylococcus aureus (MRSA) scr eening culture NEG NRG Capillary blood glucose measurement by g lucometer (mass/volume) - 06/27/16 07:37 Capillary blood glucose measurement by glucometer (mas s/volume) 297 mg/dL 70-110 Capillary blood glucose measurement by g lucometer (mass/volume) - 06/27/16 08:33 Capillary blood glucose measurement by glucometer (mas s/volume) 286 mg/dL 70-110 Capillary blood glucose measurement by g lucometer (mass/volume) - 06/27/16 10:20 Capillary blood glucose measurement by glucometer (mas s/volume) 215 mg/dL 70-110 Complete blood count (CBC) with automate d white blood cell (WBC) differential - 09/24/16 12:10 Blood leukocytes automated count (number/volume) 8.8 10*3/uL 4.3-11.0 Blood erythrocytes automated count (number/volume) 5.40 10*6/uL 4.35-5.85 Venous blood hemoglobin measurement (mass/volume) 15.8 g/dL 13.3-17.7 Blood hematocrit (volume fraction) 44 % 40-54 Automated erythrocyte mean corpuscular volume 82 [ foz_us] 80-99 Automated erythrocyte mean corpuscular h emoglobin (mass per erythrocyte) 29 pg 25-34 Automated erythrocyte mean corpuscular h emoglobin concentration measurement (mass/volume) 36 g/dL 32-36 Automated erythrocyte distribution width ratio 13. 7 % 10.0- 14.5 Automated blood platelet count (count/volume) 174 10*3/uL [...] 10*3 1.0-4.0 Blood monocytes automated count (number/volume) 0. 8 10*3 0.0-1.0 Automated eosinophil count 0.0 10*3/uL 0 .0-0.3 Automated blood basophil count (count/volume) 0.1 10*3/uL 0.0-0.1 Comprehensive metabolic panel - 09/24/16 12:10 Serum or plasma sodium measurement (moles/volume) 130 mmol/L 135-145 Serum or plasma potassium measurement (moles/volume) 4.0 mmol/L 3.6-5.0 Serum or plasma chloride measurement (moles/volume) 99 mmol/L 98-107 Carbon dioxide 20 mmol/L 21-32 Serum or plasma anion gap determination (moles/volume) 11 mmol/L 5-14 Serum or plasma urea nitrogen measurement (mass/volume ) 11 mg/dL 7-18 Serum or plasma creatinine measurement (mass/volume) 0.84 mg/dL 0.60-1.30 Serum or plasma urea nitrogen/creatinine mass ratio 13 NRG Serum or plasma creatinine measurement w ith calculation of estimated glomerular filtration rate > NRG Serum or plasma glucose measurement (mass/volume) 270 mg/dL 70-105 Serum or plasma calcium measurement (mass/volume) 8.7 mg/dL 8.5-10.1 Serum or plasma total bilirubin measurement (mass/volu me) 0.6 mg/dL 0.1-1.0 Serum or plasma alkaline phosphatase demi surement (enzymatic activity/volume) 81 U/L 40-136 Serum or plasma aspartate aminotransfera se measurement (enzymatic activity/volume) 9 U/L 5-34 Serum or plasma alanine aminotransferase measurement (enzymatic activity/volume) 15 U/L 0-55 Serum or plasma protein measurement (mass/volume) 7.1 g/dL 6.4-8.2 Serum or plasma albumin measurement (mass/volume) 4.2 g/dL 3.2-4.5 Complete urinalysis with reflex to cultu re - 09/24/16 12:50 Urine color determination YELLOW NRG Urine clarity determination CLEAR NR G Urine pH measurement by test strip 5 5-9 Specific gravity of urine by test strip 1.025 1.016-1.022 Urine protein assay by test strip, semi-quantitative 2+ NEGATIVE Urine glucose detection by automated test strip 4+ NEGATIVE Erythrocytes detection in urine sediment by light micr oscopy NEGATIVE NEGATIVE Urine ketones detection by automated test strip NE GATIVE NEGATIVE Urine nitrite detection by test strip NEGATIVE NEGATIVE Urine total bilirubin detection by test strip NEGA TIVE NEGATIVE Urine urobilinogen measurement by automated test strip (mass/volume) NORMAL NORMAL Urine leukocyte esterase detection by dipstick 1+ NEGATIVE Automated urine sediment erythrocyte cou nt by microscopy (number/high power field) NONE NRG Automated urine sediment leukocyte count by microscopy (number/high power field) [HPF] NRG Bacteria detection in urine sediment by light microsco py TRACE NRG Squamous epithelial cells detection in u rine sediment by light microscopy 2-5 NRG Crystals detection in urine sediment by light microsco py NONE NRG Casts detection in urine sediment by light microscopy NONE NRG Mucus detection in urine sediment by light microscopy MODERATE NRG Complete urinalysis with reflex to culture NO NRG Complete blood count (CBC) with automate d white blood cell (WBC) differential - 11/08/16 16:40 Blood leukocytes automated count (number/volume) 18.8 10*3/uL 4.3-11.0 Blood erythrocytes automated count (number/volume) 5.17 10*6/uL 4.35-5.85 Venous blood hemoglobin measurement (mass/volume) 15.5 g/dL 13.3-17.7 Blood hematocrit (volume fraction) 44 % 40-54 Automated erythrocyte mean corpuscular volume 85 [ foz_us] 80-99 Automated erythrocyte mean corpuscular h emoglobin (mass per erythrocyte) 30 pg 25-34 Automated erythrocyte mean corpuscular h emoglobin concentration measurement (mass/volume) 35 g/dL 32-36 Automated erythrocyte distribution width ratio 14. 4 % 10.0- 14.5 Automated blood platelet count (count/volume) 216 10*3/uL [...] 10*3 1.0-4.0 Blood monocytes automated count (number/volume) 1. 0 10*3 0.0-1.0 Automated eosinophil count 0.4 10*3/uL 0 .0-0.3 Automated blood basophil count (count/volume) 0.1 10*3/uL 0.0-0.1 PT panel in platelet poor plasma by coag ulation assay - 11/08/16 16:40 Prothrombin time (PT) in platelet poor plasma by coagu lation assay 13.1 s 12.2-14.7 INR in platelet poor plasma or blood by coagulation as say 1.0 0.8-1.4 Blood manual differential performed dete ction - 11/08/16 16:40 Blood monocytes/100 leukocytes 8 % NRG Manual blood segmented neutrophils/100 leukocytes 67 % NRG Manual blood lymphocytes/100 leukocytes 20 % NRG Manual eosinophils/100 leukocytes in nose 1 % NRG Manual blood basophils/100 leukocytes 1 % NRG Blood lymphocytes variant/100 leukocytes 3 % NRG Blood erythrocyte morphology finding identification NORMAL NRG Comprehensive metabolic panel - 11/08/16 16:40 Serum or plasma sodium measurement (moles/volume) 137 mmol/L 135-145 Serum or plasma potassium measurement (moles/volume) 4.0 mmol/L 3.6-5.0 Serum or plasma chloride measurement (moles/volume) 104 mmol/L 98-107 Carbon dioxide 23 mmol/L 21-32 Serum or plasma anion gap determination (moles/volume) 10 mmol/L 5-14 Serum or plasma urea nitrogen measurement (mass/volume ) 16 mg/dL 7-18 Serum or plasma creatinine measurement (mass/volume) 0.81 mg/dL 0.60-1.30 Serum or plasma urea nitrogen/creatinine mass ratio 20 NRG Serum or plasma creatinine measurement w ith calculation of estimated glomerular filtration rate > NRG Serum or plasma glucose measurement (mass/volume) 152 mg/dL 70-105 Serum or plasma calcium measurement (mass/volume) 9.0 mg/dL 8.5-10.1 Serum or plasma total bilirubin measurement (mass/volu me) 0.7 mg/dL 0.1-1.0 Serum or plasma alkaline phosphatase demi surement (enzymatic activity/volume) 71 U/L 40-136 Serum or plasma aspartate aminotransfera se measurement (enzymatic activity/volume) 14 U/L 5-34 Serum or plasma alanine aminotransferase measurement (enzymatic activity/volume) 20 U/L 0-55 Serum or plasma protein measurement (mass/volume) 7.0 g/dL 6.4-8.2 Serum or plasma albumin measurement (mass/volume) 4.3 g/dL 3.2-4.5 Magnesium - 11/08/16 16:40 Magnesium 2.0 mg/dL 1.8-2.4 Serum or plasma troponin i.cardiac measu rement (mass/volume) - 11/08/16 16:40 Serum or plasma troponin i.cardiac measurement (mass/v olume) < ng/mL <0.30 Serum or plasma ethanol measurement (mas s/volume) - 11/08/16 16:40 Serum or plasma ethanol measurement (mass/volume) < mg/dL <10 Capillary blood glucose measurement by g lucometer (mass/volume) - 11/08/16 16:46 Capillary blood glucose measurement by glucometer (mas s/volume) 152 mg/dL 70-110 Complete urinalysis with reflex to cultu re - 11/08/16 17:17 Urine color determination YELLOW NRG Urine clarity determination CLEAR NR G Urine pH measurement by test strip 7 5-9 Specific gravity of urine by test strip 1.005 1.016-1.022 Urine protein assay by test strip, semi-quantitative NEGATIVE NEGATIVE Urine glucose detection by automated test strip NE GATIVE NEGATIVE Erythrocytes detection in urine sediment by light micr oscopy NEGATIVE NEGATIVE Urine ketones detection by automated test strip NE GATIVE NEGATIVE Urine nitrite detection by test strip NEGATIVE NEGATIVE Urine total bilirubin detection by test strip NEGA TIVE NEGATIVE Urine urobilinogen measurement by automated test strip (mass/volume) NORMAL NORMAL Urine leukocyte esterase detection by dipstick NEG ATIVE NEGATIVE Automated urine sediment erythrocyte cou nt by microscopy (number/high power field) NONE NRG Automated urine sediment leukocyte count by microscopy (number/high power field) NONE NRG Bacteria detection in urine sediment by light microsco py NEGATIVE NRG Squamous epithelial cells detection in u rine sediment by light microscopy 0-2 NRG Crystals detection in urine sediment by light microsco py NONE NRG Casts detection in urine sediment by light microscopy NONE NRG Mucus detection in urine sediment by light microscopy NEGATIVE NRG Complete urinalysis with reflex to culture NO NRG Urine drug screening test - 11/08/16 17: 17 Urine phencyclidine detection by screening method NEGATIVE NEGATIVE Urine benzodiazepines detection by screening method POSITIVE NEGATIVE Urine cocaine detection NEGATIVE NEGATI VE Urine amphetamines detection by screening method N EGATIVE NEGATIVE Urine methamphetamine detection by screening method NEGATIVE NEGATIVE Urine cannabinoids detection by screening method N EGATIVE NEGATIVE Urine opiates detection by screening method NEGATI VE NEGATIVE Urine barbiturates detection NEGATIVE N EGATIVE Screening urine tricyclic antidepressants detection NEGATIVE NEGATIVE Urine methadone detection by screening method NEGA TIVE NEGATIVE Urine oxycodone detection NEGATIVE NEGA TIVE Urine propoxyphene detection NEGATIVE N EGATIVE Cerebrospinal fluid cell count - 7 18:15 Cerebrospinal fluid appearance description CLEAR NRG Cerebrospinal fluid color identification COLORLESS NRG Cerebrospinal fluid leukocytes count (number/volume) 2.22 % 0-5 Cerebrospinal fluid erythrocytes count (number/volume) 0 % 0-0 Cerebrospinal fluid cell count on specimen from last t ube collected 4 NRG Cerebrospinal fluid glucose measurement (mass/volume) - 11/08/16 18:15 Cerebrospinal fluid glucose measurement (mass/volume) 101 mg/dL 50-80 Cerebrospinal fluid protein measurement (mass/volume) - 11/08/16 18:15 Cerebrospinal fluid protein measurement (mass/volume) 90 mg/dL 15-40 Gram stain microscopy - 11/08/16 18:15 GRAM STAIN RESULT 11/08 19:25 BY Rey VELAZQUEZ NR Bacterial cerebrospinal fluid culture - 11/08/16 18:15 Bacterial cerebrospinal fluid culture NG NRG Blood lactic acid measurement (moles/vol ume) - 11/08/16 18:37 Blood lactic acid measurement (moles/volume) 1.1 m mol/L 0.5- 2.0 Bacterial blood culture - 11/08/16 18:37 Bacterial blood culture NG NRG Bacterial blood culture - 11/08/16 18:38 Bacterial blood culture NG NRG Complete blood count (CBC) with automate d white blood cell (WBC) differential - 07/03/17 02:50 Blood leukocytes automated count (number/volume) 23.7 10*3/uL 4.3-11.0 Blood erythrocytes automated count (number/volume) 5.65 10*6/uL 4.35-5.85 Venous blood hemoglobin measurement (mass/volume) 16.6 g/dL 13.3-17.7 Blood hematocrit (volume fraction) 47 % 40-54 Automated erythrocyte mean corpuscular volume 83 [ foz_us] 80-99 Automated erythrocyte mean corpuscular h emoglobin (mass per erythrocyte) 29 pg 25-34 Automated erythrocyte mean corpuscular h emoglobin concentration measurement (mass/volume) 35 g/dL 32-36 Automated erythrocyte distribution width ratio 14. 4 % 10.0- 14.5 Automated blood platelet count (count/volume) 280 10*3/uL [...] 10*3 1.0-4.0 Blood monocytes automated count (number/volume) 1. 2 10*3 0.0-1.0 Automated eosinophil count 0.1 10*3/uL 0 .0-0.3 Automated blood basophil count (count/volume) 0.1 10*3/uL 0.0-0.1 Complete urinalysis with reflex to cultu re - 07/03/17 02:50 Urine color determination YELLOW NRG Urine clarity determination CLEAR NR G Urine pH measurement by test strip 6 5-9 Specific gravity of urine by test strip 1.020 1.016-1.022 Urine protein assay by test strip, semi-quantitative NEGATIVE NEGATIVE Urine glucose detection by automated test strip NE GATIVE NEGATIVE Erythrocytes detection in urine sediment by light micr oscopy NEGATIVE NEGATIVE Urine ketones detection by automated test strip NE GATIVE NEGATIVE Urine nitrite detection by test strip NEGATIVE NEGATIVE Urine total bilirubin detection by test strip NEGA TIVE NEGATIVE Urine urobilinogen measurement by automated test strip (mass/volume) NORMAL NORMAL Urine leukocyte esterase detection by dipstick 1+ NEGATIVE Automated urine sediment erythrocyte cou nt by microscopy (number/high power field) NONE NRG Automated urine sediment leukocyte count by microscopy (number/high power field) RARE NRG Bacteria detection in urine sediment by light microsco py NEGATIVE NRG Squamous epithelial cells detection in u rine sediment by light microscopy RARE NRG Crystals detection in urine sediment by light microsco py NONE NRG Casts detection in urine sediment by light microscopy NONE NRG Mucus detection in urine sediment by light microscopy NEGATIVE NRG Complete urinalysis with reflex to culture NO NRG Urine drug screening test - 07/03/17 02: 50 Urine phencyclidine detection by screening method NEGATIVE NEGATIVE Urine benzodiazepines detection by screening method NEGATIVE NEGATIVE Urine cocaine detection NEGATIVE NEGATI VE Urine amphetamines detection by screening method N EGATIVE NEGATIVE Urine methamphetamine detection by screening method NEGATIVE NEGATIVE Urine cannabinoids detection by screening method N EGATIVE NEGATIVE Urine opiates detection by screening method NEGATI VE NEGATIVE Urine barbiturates detection NEGATIVE N EGATIVE Screening urine tricyclic antidepressants detection NEGATIVE NEGATIVE Urine methadone detection by screening method NEGA TIVE NEGATIVE Urine oxycodone detection NEGATIVE NEGA TIVE Urine propoxyphene detection NEGATIVE N EGATIVE Comprehensive metabolic panel - 07/03/17 02:50 Serum or plasma sodium measurement (moles/volume) 137 mmol/L 135-145 Serum or plasma potassium measurement (moles/volume) 3.7 mmol/L 3.6-5.0 Serum or plasma chloride measurement (moles/volume) 100 mmol/L 98-107 Carbon dioxide 23 mmol/L 21-32 Serum or plasma anion gap determination (moles/volume) 14 mmol/L 5-14 Serum or plasma urea nitrogen measurement (mass/volume ) 18 mg/dL 7-18 Serum or plasma creatinine measurement (mass/volume) 0.85 mg/dL 0.60-1.30 Serum or plasma urea nitrogen/creatinine mass ratio 21 NRG Serum or plasma creatinine measurement w ith calculation of estimated glomerular filtration rate > NRG Serum or plasma glucose measurement (mass/volume) 91 mg/dL 70-105 Serum or plasma calcium measurement (mass/volume) 9.9 mg/dL 8.5-10.1 Serum or plasma total bilirubin measurement (mass/volu me) 0.8 mg/dL 0.1-1.0 Serum or plasma alkaline phosphatase demi surement (enzymatic activity/volume) 72 U/L 40-136 Serum or plasma aspartate aminotransfera se measurement (enzymatic activity/volume) 10 U/L 5-34 Serum or plasma alanine aminotransferase measurement (enzymatic activity/volume) 18 U/L 0-55 Serum or plasma protein measurement (mass/volume) 7.4 g/dL 6.4-8.2 Serum or plasma albumin measurement (mass/volume) 4.3 g/dL 3.2-4.5 Lipase - 07/03/17 02:50 Lipase 13 U/L 8-78 Blood manual differential performed dete ction - 07/03/17 02:50 Blood monocytes/100 leukocytes 8 [...] PT panel in platelet poor plasma by coag ulation assay - 07/03/17 02:50 Prothrombin time (PT) in platelet poor plasma by coagu lation assay 12.7 s 12.2-14.7 INR in platelet poor plasma or blood by coagulation as say 0.9 0.8-1.4 Activated partial thromboplastin time (a PTT) in platelet poor plasma bycoagulation assay - 07/03/17 02:50 Activated partial thromboplastin time (a PTT) in platelet poor plasma bycoagulation assay 26 s 24-35 Blood lactic acid measurement (moles/vol ume) - 07/03/17 03:50 Blood lactic acid measurement (moles/volume) 2.09 mmol/L 0.50-2.00 Bacterial blood culture - 07/03/17 03:50 Bacterial blood culture NG NRG Bacterial blood culture - 07/03/17 03:55 Bacterial blood culture NG NRG Blood lactic acid measurement (moles/vol ume) - 07/03/17 05:50 Blood lactic acid measurement (moles/volume) 1.65 mmol/L 0.50-2.00 Complete blood count (CBC) with automate d white blood cell (WBC) differential - 07/15/17 11:15 Blood leukocytes automated count (number/volume) 20.5 10*3/uL 4.3-11.0 Blood erythrocytes automated count (number/volume) 5.43 10*6/uL 4.35-5.85 Venous blood hemoglobin measurement (mass/volume) 15.9 g/dL 13.3-17.7 Blood hematocrit (volume fraction) 46 % 40-54 Automated erythrocyte mean corpuscular volume 85 [ foz_us] 80-99 Automated erythrocyte mean corpuscular h emoglobin (mass per erythrocyte) 29 pg 25-34 Automated erythrocyte mean corpuscular h emoglobin concentration measurement (mass/volume) 34 g/dL 32-36 Automated erythrocyte distribution width ratio 14. 6 % 10.0- 14.5 Automated blood platelet count (count/volume) 285 10*3/uL [...] 10*3 1.0-4.0 Blood monocytes automated count (number/volume) 1. 1 10*3 0.0-1.0 Automated eosinophil count 0.1 10*3/uL 0 .0-0.3 Automated blood basophil count (count/volume) 0.1 10*3/uL 0.0-0.1 Blood manual differential performed dete ction - 07/15/17 11:15 Blood monocytes/100 leukocytes 6 % NRG Manual blood segmented neutrophils/100 leukocytes 81 % NRG Blood band neutrophils/100 leukocytes 2 % NRG Manual blood lymphocytes/100 leukocytes 10 % NRG Manual eosinophils/100 leukocytes in nose 1 % NRG Manual blood basophils/100 leukocytes 0 % NRG Blood erythrocyte morphology finding identification NORMAL NRG Comprehensive metabolic panel - 07/15/17 11:15 Serum or plasma sodium measurement (moles/volume) 138 mmol/L 135-145 Serum or plasma potassium measurement (moles/volume) 4.3 mmol/L 3.6-5.0 Serum or plasma chloride measurement (moles/volume) 105 mmol/L 98-107 Carbon dioxide 23 mmol/L 21-32 Serum or plasma anion gap determination (moles/volume) 10 mmol/L 5-14 Serum or plasma urea nitrogen measurement (mass/volume ) 12 mg/dL 7-18 Serum or plasma creatinine measurement (mass/volume) 0.70 mg/dL 0.60-1.30 Serum or plasma urea nitrogen/creatinine mass ratio 17 NRG Serum or plasma creatinine measurement w ith calculation of estimated glomerular filtration rate > NRG Serum or plasma glucose measurement (mass/volume) 99 mg/dL 70-105 Serum or plasma calcium measurement (mass/volume) 9.4 mg/dL 8.5-10.1 Serum or plasma total bilirubin measurement (mass/volu me) 0.6 mg/dL 0.1-1.0 Serum or plasma alkaline phosphatase demi surement (enzymatic activity/volume) 59 U/L 40-136 Serum or plasma aspartate aminotransfera se measurement (enzymatic activity/volume) 13 U/L 5-34 Serum or plasma alanine aminotransferase measurement (enzymatic activity/volume) 26 U/L 0-55 Serum or plasma protein measurement (mass/volume) 7.0 g/dL 6.4-8.2 Serum or plasma albumin measurement (mass/volume) 4.1 g/dL 3.2-4.5 Magnesium - 07/15/17 11:15 Magnesium 2.1 mg/dL 1.8-2.4 Serum or plasma troponin i.cardiac measu rement (mass/volume) - 07/15/17 11:15 Serum or plasma troponin i.cardiac measurement (mass/v olume) < ng/mL <0.30 Serum or plasma lithium measurement (mol es/volume) - 07/15/17 11:15 BNP level 87.4 pg/mL <100.0 Lipase - 07/15/17 11:15 Lipase 15 U/L 8-78 Arterial blood gas measurement - 7 13:20 Blood pCO2 37 mm[Hg] 35-45 Blood pO2 94 mm[Hg] 79-93 Arterial blood bicarbonate measurement (moles/volume) 24 mmol/L 23-27 Arterial blood base excess by calculation 0.1 mmol /L -2.5-2.5 Arterial blood oxygen saturation measurement 98 % 94-100 * Inhaled oxygen flow rate ROOM AIR NRG Arterial blood pH measurement with patient temperature correction 7.42 7.37-7.43 Arterial blood carbon dioxide, total measurement (mole s/volume) 25.1 mmol/L 21.0-31.0 Body site LEFT RADIAL NRG Assessment of wrist artery patency prior to arterial p uncture POSITIVE NRG Setting of ventilation mode NO NR G Measurement of body temperature 98.9 NRG Complete blood count (CBC) with automate d white blood cell (WBC) differential - 08/05/17 16:39 Blood leukocytes automated count (number/volume) 15.2 10*3/uL 4.3-11.0 Blood erythrocytes automated count (number/volume) 5.28 10*6/uL 4.35-5.85 Venous blood hemoglobin measurement (mass/volume) 15.5 g/dL 13.3-17.7 Blood hematocrit (volume fraction) 45 % 40-54 Automated erythrocyte mean corpuscular volume 84 [ foz_us] 80-99 Automated erythrocyte mean corpuscular h emoglobin (mass per erythrocyte) 29 pg 25-34 Automated erythrocyte mean corpuscular h emoglobin concentration measurement (mass/volume) 35 g/dL 32-36 Automated erythrocyte distribution width ratio 13. 7 % 10.0- 14.5 Automated blood platelet count (count/volume) 276 10*3/uL [...] 10*3 1.0-4.0 Blood monocytes automated count (number/volume) 1. 0 10*3 0.0-1.0 Automated eosinophil count 0.3 10*3/uL 0 .0-0.3 Automated blood basophil count (count/volume) 0.1 10*3/uL 0.0-0.1 PT panel in platelet poor plasma by coag ulation assay - 08/05/17 16:39 Prothrombin time (PT) in platelet poor plasma by coagu lation assay 12.6 s 12.2-14.7 INR in platelet poor plasma or blood by coagulation as say 0.9 0.8-1.4 Activated partial thromboplastin time (a PTT) in platelet poor plasma bycoagulation assay - 08/05/17 16:39 Activated partial thromboplastin time (a PTT) in platelet poor plasma bycoagulation assay 28 s 24-35 Comprehensive metabolic panel - 08/05/17 16:39 Serum or plasma sodium measurement (moles/volume) 132 mmol/L 135-145 Serum or plasma potassium measurement (moles/volume) 4.5 mmol/L 3.6-5.0 Serum or plasma chloride measurement (moles/volume) 99 mmol/L 98-107 Carbon dioxide 24 mmol/L 21-32 Serum or plasma anion gap determination (moles/volume) 9 mmol/L 5-14 Serum or plasma urea nitrogen measurement (mass/volume ) 17 mg/dL 7-18 Serum or plasma creatinine measurement (mass/volume) 1.04 mg/dL 0.60-1.30 Serum or plasma urea nitrogen/creatinine mass ratio 16 NRG Serum or plasma creatinine measurement w ith calculation of estimated glomerular filtration rate > NRG Serum or plasma glucose measurement (mass/volume) 234 mg/dL 70-105 Serum or plasma calcium measurement (mass/volume) 9.2 mg/dL 8.5-10.1 Serum or plasma total bilirubin measurement (mass/volu me) 0.8 mg/dL 0.1-1.0 Serum or plasma alkaline phosphatase demi surement (enzymatic activity/volume) 53 U/L 40-136 Serum or plasma aspartate aminotransfera se measurement (enzymatic activity/volume) 15 U/L 5-34 Serum or plasma alanine aminotransferase measurement (enzymatic activity/volume) 26 U/L 0-55 Serum or plasma protein measurement (mass/volume) 7.0 g/dL 6.4-8.2 Serum or plasma albumin measurement (mass/volume) 4.1 g/dL 3.2-4.5 Magnesium - 08/05/17 16:39 Magnesium 1.9 mg/dL 1.8-2.4 Blood manual differential performed dete ction - 08/05/17 16:39 Blood monocytes/100 leukocytes 2 % NRG Manual blood segmented neutrophils/100 leukocytes 54 % NRG Blood band neutrophils/100 leukocytes 0 % NRG Manual blood lymphocytes/100 leukocytes 42 % NRG Manual eosinophils/100 leukocytes in nose 0 % NRG Manual blood basophils/100 leukocytes 2 % NRG Blood erythrocyte morphology finding identification NORMAL NRG Serum or plasma lithium measurement (mol es/volume) - 08/05/17 16:39 BNP level 17.5 pg/mL <100.0 Serum or plasma troponin i.cardiac measu rement (mass/volume) - 08/05/17 16:39 Serum or plasma troponin i.cardiac measurement (mass/v olume) < ng/mL <0.30 THYROID STIMULATING HORMONE - 08/05/17 1 6:39 THYROID STIMULATING HORMONE 2.73 u[iU]/mL 0.35-4.94 Capillary blood glucose measurement by g lucometer (mass/volume) - 08/05/17 16:47 Capillary blood glucose measurement by glucometer (mas s/volume) 205 mg/dL 70-110 Influenza virus A and B antigen detectio n - 08/05/17 17:00 FLU RESULT NEGATIVE FOR INFLUENZA A AND B ANTIGENS BY IA NR Blood lactic acid measurement (moles/vol ume) - 08/05/17 17:00 Blood lactic acid measurement (moles/volume) 1.70 mmol/L 0.50-2.00 Bacterial blood culture - 08/05/17 17:00 QUANTITY OF GROWTH Isolated NR Bacterial blood culture [id number] NR Bacterial blood culture - 08/05/17 17:08 Bacterial blood culture NG NR Complete urinalysis with reflex to cultu re - 08/05/17 18:07 Urine color determination MG NRG Urine clarity determination CLEAR NR G Urine pH measurement by test strip 6 5-9 Specific gravity of urine by test strip 1.025 1.016-1.022 Urine protein assay by test strip, semi-quantitative 1+ NEGATIVE Urine glucose detection by automated test strip 1+ NEGATIVE Erythrocytes detection in urine sediment by light micr oscopy NEGATIVE NEGATIVE Urine ketones detection by automated test strip NE GATIVE NEGATIVE Urine nitrite detection by test strip NEGATIVE NEGATIVE Urine total bilirubin detection by test strip NEGA TIVE NEGATIVE Urine urobilinogen measurement by automated test strip (mass/volume) 1 mg/dL NORMAL Urine leukocyte esterase detection by dipstick 1+ NEGATIVE Automated urine sediment erythrocyte cou nt by microscopy (number/high power field) NONE NRG Automated urine sediment leukocyte count by microscopy (number/high power field) [HPF] NRG Bacteria detection in urine sediment by light microsco py NONE NRG Squamous epithelial cells detection in u rine sediment by light microscopy 0-2 NRG Crystals detection in urine sediment by light microsco py NONE NRG Casts detection in urine sediment by light microscopy NONE NRG Mucus detection in urine sediment by light microscopy SMALL NRG Complete urinalysis with reflex to culture NO NRG Urine drug screening test - 08/05/17 18: 07 Urine phencyclidine detection by screening method NEGATIVE NEGATIVE Urine benzodiazepines detection by screening method POSITIVE NEGATIVE Urine cocaine detection NEGATIVE NEGATI VE Urine amphetamines detection by screening method N EGATIVE NEGATIVE Urine methamphetamine detection by screening method NEGATIVE NEGATIVE Urine cannabinoids detection by screening method P OSITIVE NEGATIVE Urine opiates detection by screening method NEGATI VE NEGATIVE Urine barbiturates detection NEGATIVE N EGATIVE Screening urine tricyclic antidepressants detection NEGATIVE NEGATIVE Urine methadone detection by screening method NEGA TIVE NEGATIVE Urine oxycodone detection NEGATIVE NEGA TIVE Urine propoxyphene detection NEGATIVE N EGATIVE Capillary blood glucose measurement by g lucometer (mass/volume) - 08/05/17 21:35 Capillary blood glucose measurement by glucometer (mas s/volume) 178 mg/dL 70-110 Methicillin resistant Staphylococcus aur eus (MRSA) screening culture - 08/06/17 02:59 Methicillin resistant Staphylococcus aureus (MRSA) scr eening culture NEG NRG Complete blood count (CBC) with automate d white blood cell (WBC) differential - 08/06/17 04:35 Blood leukocytes automated count (number/volume) 10.3 10*3/uL 4.3-11.0 Blood erythrocytes automated count (number/volume) 4.53 10*6/uL 4.35-5.85 Venous blood hemoglobin measurement (mass/volume) 13.6 g/dL 13.3-17.7 Blood hematocrit (volume fraction) 39 % 40-54 Automated erythrocyte mean corpuscular volume 87 [ foz_us] 80-99 Automated erythrocyte mean corpuscular h emoglobin (mass per erythrocyte) 30 pg 25-34 Automated erythrocyte mean corpuscular h emoglobin concentration measurement (mass/volume) 35 g/dL 32-36 Automated erythrocyte distribution width ratio 13. 8 % 10.0- 14.5 Automated blood platelet count (count/volume) 181 10*3/uL [...] 10*3 1.0-4.0 Blood monocytes automated count (number/volume) 1. 0 10*3 0.0-1.0 Automated eosinophil count 0.2 10*3/uL 0 .0-0.3 Automated blood basophil count (count/volume) 0.1 10*3/uL 0.0-0.1 Whole blood basic metabolic panel - 07/18 10/02 04:35 Serum or plasma sodium measurement (moles/volume) 137 mmol/L 135-145 Serum or plasma potassium measurement (moles/volume) 4.5 mmol/L 3.6-5.0 Serum or plasma chloride measurement (moles/volume) 109 mmol/L 98-107 Carbon dioxide 18 mmol/L 21-32 Serum or plasma anion gap determination (moles/volume) 10 mmol/L 5-14 Serum or plasma urea nitrogen measurement (mass/volume ) 14 mg/dL 7-18 Serum or plasma creatinine measurement (mass/volume) 0.73 mg/dL 0.60-1.30 Serum or plasma urea nitrogen/creatinine mass ratio 19 NRG Serum or plasma creatinine measurement w ith calculation of estimated glomerular filtration rate > NRG Serum or plasma glucose measurement (mass/volume) 215 mg/dL 70-105 Serum or plasma calcium measurement (mass/volume) 7.8 mg/dL 8.5-10.1 Serum or plasma phosphate measurement (m ass/volume) - 08/06/17 04:35 Serum or plasma phosphate measurement (mass/volume) 3.0 mg/dL 2.3-4.7 Magnesium - 08/06/17 04:35 Magnesium 2.0 mg/dL 1.8-2.4 Capillary blood glucose measurement by g lucometer (mass/volume) - 08/06/17 11:20 Capillary blood glucose measurement by glucometer (mas s/volume) 227 mg/dL 70-110 Capillary blood glucose measurement by g lucometer (mass/volume) - 10/17/17 10:29 Capillary blood glucose measurement by glucometer (mas s/volume) 191 mg/dL 70-110 PT panel in platelet poor plasma by coag ulation assay - 10/17/17 10:30 Prothrombin time (PT) in platelet poor plasma by coagu lation assay 11.9 s 12.2-14.7 INR in platelet poor plasma or blood by coagulation as say 0.9 0.8-1.4 Activated partial thromboplastin time (a PTT) in platelet poor plasma bycoagulation assay - 10/17/17 10:30 Activated partial thromboplastin time (a PTT) in platelet poor plasma bycoagulation assay 28 s 24-35 Complete blood count (CBC) with automate d white blood cell (WBC) differential - 10/17/17 10:30 Blood leukocytes automated count (number/volume) 11.7 10*3/uL 4.3-11.0 Blood erythrocytes automated count (number/volume) 4.98 10*6/uL 4.35-5.85 Venous blood hemoglobin measurement (mass/volume) 15.2 g/dL 13.3-17.7 Blood hematocrit (volume fraction) 44 % 40-54 Automated erythrocyte mean corpuscular volume 87 [ foz_us] 80-99 Automated erythrocyte mean corpuscular h emoglobin (mass per erythrocyte) 31 pg 25-34 Automated erythrocyte mean corpuscular h emoglobin concentration measurement (mass/volume) 35 g/dL 32-36 Automated erythrocyte distribution width ratio 13. 8 % 10.0- 14.5 Automated blood platelet count (count/volume) 183 10*3/uL [...] 10*3 1.0-4.0 Blood monocytes automated count (number/volume) 0. 9 10*3 0.0-1.0 Automated eosinophil count 0.3 10*3/uL 0 .0-0.3 Automated blood basophil count (count/volume) 0.1 10*3/uL 0.0-0.1 Comprehensive metabolic panel - 10/17/17 10:30 Serum or plasma sodium measurement (moles/volume) 135 mmol/L 135-145 Serum or plasma potassium measurement (moles/volume) 4.0 mmol/L 3.6-5.0 Serum or plasma chloride measurement (moles/volume) 102 mmol/L 98-107 Carbon dioxide 22 mmol/L 21-32 Serum or plasma anion gap determination (moles/volume) 11 mmol/L 5-14 Serum or plasma urea nitrogen measurement (mass/volume ) 15 mg/dL 7-18 Serum or plasma creatinine measurement (mass/volume) 0.77 mg/dL 0.60-1.30 Serum or plasma urea nitrogen/creatinine mass ratio 19 NRG Serum or plasma creatinine measurement w ith calculation of estimated glomerular filtration rate > NRG Serum or plasma glucose measurement (mass/volume) 192 mg/dL 70-105 Serum or plasma calcium measurement (mass/volume) 9.4 mg/dL 8.5-10.1 Serum or plasma total bilirubin measurement (mass/volu me) 0.7 mg/dL 0.1-1.0 Serum or plasma alkaline phosphatase demi surement (enzymatic activity/volume) 73 U/L 40-136 Serum or plasma aspartate aminotransfera se measurement (enzymatic activity/volume) 21 U/L 5-34 Serum or plasma alanine aminotransferase measurement (enzymatic activity/volume) 31 U/L 0-55 Serum or plasma protein measurement (mass/volume) 7.3 g/dL 6.4-8.2 Serum or plasma albumin measurement (mass/volume) 4.0 g/dL 3.2-4.5 Magnesium - 10/17/17 10:30 Magnesium 2.0 mg/dL 1.8-2.4 Serum or plasma troponin i.cardiac measu rement (mass/volume) - 10/17/17 10:30 Serum or plasma troponin i.cardiac measurement (mass/v olume) < ng/mL <0.30 Myoglobin, serum - 10/17/17 10:30 Myoglobin, serum 31.2 ng/mL 10.0-92.0 Complete urinalysis with reflex to cultu re - 10/17/17 12:46 Urine color determination YELLOW NRG Urine clarity determination CLEAR NR G Urine pH measurement by test strip 7 5-9 Specific gravity of urine by test strip 1.010 1.016-1.022 Urine protein assay by test strip, semi-quantitative 1+ NEGATIVE Urine glucose detection by automated test strip 4+ NEGATIVE Erythrocytes detection in urine sediment by light micr oscopy NEGATIVE NEGATIVE Urine ketones detection by automated test strip NE GATIVE NEGATIVE Urine nitrite detection by test strip NEGATIVE NEGATIVE Urine total bilirubin detection by test strip NEGA TIVE NEGATIVE Urine urobilinogen measurement by automated test strip (mass/volume) NORMAL NORMAL Urine leukocyte esterase detection by dipstick NEG ATIVE NEGATIVE Automated urine sediment erythrocyte cou nt by microscopy (number/high power field) NONE NRG Automated urine sediment leukocyte count by microscopy (number/high power field) NONE NRG Bacteria detection in urine sediment by light microsco py NEGATIVE NRG Squamous epithelial cells detection in u rine sediment by light microscopy RARE NRG Crystals detection in urine sediment by light microsco py NONE NRG Casts detection in urine sediment by light microscopy NONE NRG Mucus detection in urine sediment by light microscopy NEGATIVE NRG Complete urinalysis with reflex to culture NO NRG Bacteria identification in isolate by an aerobe culture - 07/15/18 09:09 Bacteria identification in isolate by anaerobe culture NOANA NRG Gram stain microscopy - 07/15/18 09:09 Gram stain microscopy No bacteria seen NRG Bacteria identification in wound by cult ure - 07/15/18 09:09 Bacteria identification in wound by culture [id number] NRG FREE TEXT EXTERNAL ID REPORTED 07/18/19 15:05 NRG QUANTITY OF GROWTH Rare NRG FREE TEXT ENTRY 2 SENSITIVITY REPORTED 07/20/18 10: 06 NRG FREE TEXT ENTRY 3 CLINDAMYCIN RESISTANT WITHOUT IN DUCTION [facility] Sensitivity Panel - 07/15/18 09:09 Oxacillin susceptibility test by minimum inhibitory co ncentration 0.5 NRG Clindamycin susceptibility test by minimum inhibitory concentration > NRG Erythromycin susceptibility test by minimum inhibitory concentration > NRG Vancomycin susceptibility test by minimum inhibitory c oncentration 1 NRG Levofloxacin susceptibility test by minimum inhibitory concentration > NRG Rifampin susceptibility test by minimum inhibitory con centration <= NRG Cefazolin susceptibility test by minimum inhibitory co ncentration R NRG Linezolid susceptibility test by minimum inhibitory co ncentration <= NRG Penicillin G susceptibility test by minimum inhibitory concentration 0.25 NRG Moxifloxacin susceptibility test by minimum inhibitory concentration R NRG Minocycline susc ARMINDA <= NRG Bacteria identification in isolate by an aerobe culture - 07/21/18 15:08 Bacteria identification in isolate by anaerobe culture NOANA NRG Gram stain microscopy - 07/21/18 15:08 Gram stain microscopy No bacteria seen NRG Bacteria identification in wound by cult ure - 07/21/18 15:08 Bacteria identification in wound by culture [id number] NRG FREE TEXT EXTERNAL ID REPORTED 07/22/18 17:05 NRG QUANTITY OF GROWTH Rare NRG FREE TEXT ENTRY 2 SUSCEPTIBILITY REPORTED 8, 1405 [facility] Sensitivity Panel - 07/21/18 15:08 Oxacillin susceptibility test by minimum inhibitory co ncentration > NRG Clindamycin susceptibility test by minimum inhibitory concentration > NRG Erythromycin susceptibility test by minimum inhibitory concentration > NRG Vancomycin susceptibility test by minimum inhibitory c oncentration 1 NRG Levofloxacin susceptibility test by minimum inhibitory concentration <= NRG Rifampin susceptibility test by minimum inhibitory con centration <= NRG Cefazolin susceptibility test by minimum inhibitory co ncentration R NRG Linezolid susceptibility test by minimum inhibitory co ncentration 2 NRG Penicillin G susceptibility test by minimum inhibitory concentration > NRG Minocycline susc ARMINDA <= NRG Comprehensive metabolic panel - 07/21/18 16:15 Serum or plasma sodium measurement (moles/volume) 137 mmol/L 135-145 Serum or plasma potassium measurement (moles/volume) 4.0 mmol/L 3.6-5.0 Serum or plasma chloride measurement (moles/volume) 105 mmol/L 98-107 Carbon dioxide 24 mmol/L 21-32 Serum or plasma anion gap determination (moles/volume) 8 mmol/L 5-14 Serum or plasma urea nitrogen measurement (mass/volume ) 11 mg/dL 7-18 Serum or plasma creatinine measurement (mass/volume) 0.74 mg/dL 0.60-1.30 Serum or plasma urea nitrogen/creatinine mass ratio 15 NRG Serum or plasma creatinine measurement w ith calculation of estimated glomerular filtration rate > NRG Serum or plasma glucose measurement (mass/volume) 117 mg/dL 70-105 Serum or plasma calcium measurement (mass/volume) 9.4 mg/dL 8.5-10.1 Serum or plasma total bilirubin measurement (mass/volu me) 0.3 mg/dL 0.1-1.0 Serum or plasma alkaline phosphatase demi surement (enzymatic activity/volume) 89 U/L 40-136 Serum or plasma aspartate aminotransfera se measurement (enzymatic activity/volume) 8 U/L 5-34 Serum or plasma alanine aminotransferase measurement (enzymatic activity/volume) 9 U/L 0-55 Serum or plasma protein measurement (mass/volume) 7.2 g/dL 6.4-8.2 Serum or plasma albumin measurement (mass/volume) 4.2 g/dL 3.2-4.5 CALCIUM CORRECTED 9.2 mg/dL 8.5-10.1 Hemoglobin A1c - 07/21/18 16:15 Blood hemoglobin A1C measurement (mass/volume) 12. 5 % 4.0- 5.6 MEAN BLOOD GLUCOSE 312 % <=126 Capillary blood glucose measurement by g lucometer (mass/volume) - 07/23/18 07:19 Capillary blood glucose measurement by glucometer (mas s/volume) 170 mg/dL 70-110 Sputum Gram stain - 07/23/18 08:28 Sputum Gram stain Mixed Bacterial Maribel NRG Mycobacterium species detection by organ ism specific culture - 07/23/18 08:28 QUANTITY OF GROWTH . NRG Mycobacterium species detection by organism specific c ulture SEE COMMEN NRG Bacteria identification in bronchial spe cimen by aerobe culture - 07/23/18 08:28 QUANTITY OF GROWTH . NRG Bacteria identification in bronchial specimen by aerob e culture SEE COMMEN NRG FTX;REPORTABLE 1,000 CFU/ML NRG C FUNGUS SPUTUM FLUID TISSUE - 07/23/18 08:28 QUANTITY OF GROWTH Rare NRG C FUNGUS SPUTUM FLUID TISSUE [id number] N RG Sputum Gram stain - 07/23/18 08:29 Sputum Gram stain No bacteria seen NRG Mycobacterium species detection by organ ism specific culture - 07/23/18 08:29 QUANTITY OF GROWTH . NRG Mycobacterium species detection by organism specific c ulture SEE COMMEN NRG Bacteria identification in bronchial spe cimen by aerobe culture - 07/23/18 08:29 QUANTITY OF GROWTH . NRG Bacteria identification in bronchial specimen by aerob e culture [id number] NRG FTX;REPORTABLE 500 CFU/ML NRG FREE TEXT ENTRY 2 RML SENT SENSITIVITY REPORT 07/25 12:06 NRG RML Sensitivity Panel - 07/23/18 08:29 Gentamicin susceptibility test by minimum inhibitory c oncentration <= NRG Trimethoprim/sulfamethoxazole susceptibi lity test by minimum inhibitoryconcentration S NRG Levofloxacin susceptibility test by minimum inhibitory concentration <= NRG Ampicillin susceptibility test by minimum inhibitory c oncentration > NRG Cefazolin susceptibility test by minimum inhibitory co ncentration > NRG Ceftriaxone susceptibility test by minimum inhibitory concentration <= NRG Piperacillin/tazobactam susceptibility t est by minimum inhibitory concentration S NRG Ciprofloxacin susceptibility test by minimum inhibitor y concentration <= NRG Meropenem susceptibility test by minimum inhibitory co ncentration <= NRG Amoxicillin and clavulanate potassium susc ARMINDA > NRG C FUNGUS SPUTUM FLUID TISSUE - 07/23/18 08:29 C FUNGUS SPUTUM FLUID TISSUE NG N RG C FUNGUS SPUTUM FLUID TISSUE - 07/23/18 08:30 C FUNGUS SPUTUM FLUID TISSUE NG N RG C FUNGUS SPUTUM FLUID TISSUE - 07/23/18 08:31 C FUNGUS SPUTUM FLUID TISSUE NG N RG Capillary blood glucose measurement by g lucometer (mass/volume) - 08/13/18 07:26 Capillary blood glucose measurement by glucometer (mas s/volume) 148 mg/dL 70-110 Sputum Gram stain - 08/13/18 08:50 Sputum Gram stain No bacteria seen NRG Bacteria identification in bronchial spe cimen by aerobe culture - 08/13/18 08:50 Bacteria identification in bronchial specimen by aerob e culture NG NRG C FUNGUS SPUTUM FLUID TISSUE - 08/13/18 08:50 C FUNGUS SPUTUM FLUID TISSUE NG N RG Sputum Gram stain - 08/13/18 08:51 Sputum Gram stain No bacteria seen NRG Bacteria identification in bronchial spe cimen by aerobe culture - 08/13/18 08:51 QUANTITY OF GROWTH . NRG Bacteria identification in bronchial specimen by aerob e culture [id number] NRG FTX;REPORTABLE 100 CFU/ML NR FREE TEXT ENTRY 2 1305; ID REPORTED 08/14/18 15:05 [facility] - 08/13/18 08:51 Gentamicin susceptibility test by minimum inhibitory c oncentration <= NRG Trimethoprim/sulfamethoxazole susceptibi lity test by minimum inhibitoryconcentration S NRG Levofloxacin susceptibility test by minimum inhibitory concentration <= NRG Ampicillin susceptibility test by minimum inhibitory c oncentration > NRG Cefazolin susceptibility test by minimum inhibitory co ncentration > NRG Ceftriaxone susceptibility test by minimum inhibitory concentration <= NRG Piperacillin/tazobactam susceptibility t est by minimum inhibitory concentration S NRG Ciprofloxacin susceptibility test by minimum inhibitor y concentration <= NRG Meropenem susceptibility test by minimum inhibitory co ncentration <= NRG Amoxicillin and clavulanate potassium susc ARMINDA R NRG C FUNGUS SPUTUM FLUID TISSUE - 08/13/18 08:51 QUANTITY OF GROWTH Rare NRG FTX;REPORTABLE RML SENT FINAL REPORT 09/10/18 16:0 5 NRG C FUNGUS SPUTUM FLUID TISSUE [id number] N RG Mycobacterium species detection by organ ism specific culture - 08/13/18 08:52 QUANTITY OF GROWTH . NRG Mycobacterium species detection by organism specific c ulture SEE COMMEN NRG Bacteria identification in isolate by an aerobe culture - 09/30/18 10:18 Bacteria identification in isolate by anaerobe culture NOANA NRG Gram stain microscopy - 09/30/18 10:18 Bacteria identification in wound by cult ure - 09/30/18 10:18 Bacteria identification in wound by culture [id number] NRG FREE TEXT EXTERNAL ID REPORTED 10/01/18 16:05 NRG QUANTITY OF GROWTH Rare NR FREE TEXT ENTRY 2 SUSCEPTIBILTY REPORTED 10-03-2018 , 08 [facility] Sensitivity Panel - 09/30/18 10:18 Oxacillin susceptibility test by minimum inhibitory co ncentration > NRG Clindamycin susceptibility test by minimum inhibitory concentration > NRG Erythromycin susceptibility test by minimum inhibitory concentration > NRG Vancomycin susceptibility test by minimum inhibitory c oncentration 2 NRG Levofloxacin susceptibility test by minimum inhibitory concentration > NRG Rifampin susceptibility test by minimum inhibitory con centration <= NRG Cefazolin susceptibility test by minimum inhibitory co ncentration R NRG Linezolid susceptibility test by minimum inhibitory co ncentration R NRG Penicillin G susceptibility test by minimum inhibitory concentration > NRG Minocycline susc ARMINDA <= NRG Bacteria identification in isolate by an aerobe culture - 10/21/18 10:20 Bacteria identification in isolate by anaerobe culture NOANA NRG Gram stain microscopy - 10/21/18 10:20 Gram stain microscopy No bacteria NRG Bacteria identification in wound by cult ure - 10/21/18 10:20 Bacteria identification in wound by culture [id number] NRG FREE TEXT EXTERNAL SENSITIVITY RECEIVED 10/24 11:05 NRG QUANTITY OF GROWTH Moderate Growth NRG FREE TEXT ENTRY 2 ID REPORT RECEIVED 10/23 16:05 NRG RML Sensitivity Panel - 10/21/18 10:20 Oxacillin susceptibility test by minimum inhibitory co ncentration <= NRG Clindamycin susceptibility test by minimum inhibitory concentration <= NRG Erythromycin susceptibility test by minimum inhibitory concentration <= NRG Trimethoprim/sulfamethoxazole susceptibi lity test by minimum inhibitoryconcentration S NRG Vancomycin susceptibility test by minimum inhibitory c oncentration <= NRG Levofloxacin susceptibility test by minimum inhibitory concentration 4 NRG Rifampin susceptibility test by minimum inhibitory con centration <= NRG Cefazolin susceptibility test by minimum inhibitory co ncentration <= NRG Linezolid susceptibility test by minimum inhibitory co ncentration 2 NRG Moxifloxacin susceptibility test by minimum inhibitory concentration S NRG Minocycline susc ARMINDA <= NRG RML Sensitivity Panel - 10/21/18 10:20 Oxacillin susceptibility test by minimum inhibitory co ncentration <= NRG Clindamycin susceptibility test by minimum inhibitory concentration <= NRG Erythromycin susceptibility test by minimum inhibitory concentration <= NRG Vancomycin susceptibility test by minimum inhibitory c oncentration <= NRG Levofloxacin susceptibility test by minimum inhibitory concentration <= NRG Rifampin susceptibility test by minimum inhibitory con centration <= NRG Cefazolin susceptibility test by minimum inhibitory co ncentration <= NRG Linezolid susceptibility test by minimum inhibitory co ncentration 2 NRG Minocycline susc ARMINDA <= NRG Hemoglobin A1c - 10/22/18 14:39 Blood hemoglobin A1C measurement (mass/volume) 7.0 % 4.0-5.6 MEAN BLOOD GLUCOSE 154 % <=126 Methicillin resistant Staphylococcus aur eus (MRSA) screening culture - 10/29/18 09:12 Methicillin resistant Staphylococcus aureus (MRSA) scr eening culture NEG NRG Capillary blood glucose measurement by g lucometer (mass/volume) - 10/29/18 09:29 Capillary blood glucose measurement by glucometer (mas s/volume) 141 mg/dL 70-110 Bacteria identification in isolate by an aerobe culture - 12/09/18 09:27 Bacteria identification in isolate by anaerobe culture NOANA NRG Gram stain microscopy - 12/09/18 09:27 Gram stain microscopy No bacteria seen NRG Bacteria identification in wound by cult ure - 12/09/18 09:27 Bacteria identification in wound by culture SEE CO MMEN NRG FREE TEXT EXTERNAL SUSCEPTIBILITY REPORTED 12-12-18 , 5. NRG QUANTITY OF GROWTH . NR FREE TEXT ENTRY 2 ID REPORTED 12/10/18 14:05 NRG RML Sensitivity Panel - 12/09/18 09:27 Oxacillin susceptibility test by minimum inhibitory co ncentration > NRG Clindamycin susceptibility test by minimum inhibitory concentration R NRG Erythromycin susceptibility test by minimum inhibitory concentration > NRG Vancomycin susceptibility test by minimum inhibitory c oncentration 2 NRG Levofloxacin susceptibility test by minimum inhibitory concentration > NRG Rifampin susceptibility test by minimum inhibitory con centration <= NRG Cefazolin susceptibility test by minimum inhibitory co ncentration > NRG Linezolid susceptibility test by minimum inhibitory co ncentration R NRG Penicillin G susceptibility test by minimum inhibitory concentration > NRG Moxifloxacin susceptibility test by minimum inhibitory concentration S NRG Minocycline susc ARMINDA <= NRG Whole blood basic metabolic panel - 12/02 10:25 Serum or plasma sodium measurement (moles/volume) 139 mmol/L 135-145 Serum or plasma potassium measurement (moles/volume) 4.1 mmol/L 3.6-5.0 Serum or plasma chloride measurement (moles/volume) 104 mmol/L 98-107 Carbon dioxide 27 mmol/L 21-32 Serum or plasma anion gap determination (moles/volume) 8 mmol/L 5-14 Serum or plasma urea nitrogen measurement (mass/volume ) 12 mg/dL 7-18 Serum or plasma creatinine measurement (mass/volume) 0.86 mg/dL 0.60-1.30 Serum or plasma urea nitrogen/creatinine mass ratio 14 NRG Serum or plasma creatinine measurement w ith calculation of estimated glomerular filtration rate > NRG Serum or plasma glucose measurement (mass/volume) 82 mg/dL 70-105 Serum or plasma calcium measurement (mass/volume) 9.2 mg/dL 8.5-10.1 Vancomycin trough - 12/19/18 07:50 Vancomycin trough 11.1 ug/mL 10.0-20.0 Vancomycin trough - 12/21/18 08:05 Vancomycin trough 16.0 ug/mL 10.0-20.0 Vancomycin trough - 12/28/18 07:30 Vancomycin trough 15.9 ug/mL 10.0-20.0 Vancomycin trough - 01/05/19 06:37 Vancomycin trough 15.1 ug/mL 10.0-20.0 Vancomycin trough - 01/12/19 07:30 Vancomycin trough 16.2 ug/mL 10.0-20.0 Hemoglobin A1c - 01/19/19 08:45 Blood hemoglobin A1C measurement (mass/volume) 7.9 % 4.0-5.6 MEAN BLOOD GLUCOSE 180 % <=126 Serum or plasma C reactive protein measu rement (mass/volume) - 01/19/19 09:25 Serum or plasma C reactive protein measurement (mass/v olume) 0.32 mg/dL 0.00-0.50 Erythrocyte sedimentation rate by kwadwo gren method - 01/19/19 09:25 Erythrocyte sedimentation rate by westergren method 1 mm 0- 30 Vancomycin trough - 01/20/19 07:16 Vancomycin trough 5.3 ug/mL 10.0-20.0 Vancomycin trough - 01/25/19 08:10 Vancomycin trough 6.4 ug/mL 10.0-20.0 Bacteria identification in isolate by an aerobe culture - 01/27/19 09:11 Bacteria identification in isolate by anaerobe culture NOANA NRG Gram stain microscopy - 01/27/19 09:11 Gram stain microscopy No bacteria seen NRG Bacteria identification in wound by cult ure - 01/27/19 09:11 Bacteria identification in wound by culture [id number] NRG FREE TEXT EXTERNAL FROM [employer] ONLY NRG QUANTITY OF GROWTH Isolated NRG FREE TEXT ENTRY 2 SUSCEPTIBILITY REPORTED 02-02-19904. [facility] Sensitivity [facility] - 01/27/19 09:11 Oxacillin susceptibility test by minimum inhibitory co ncentration > NRG Clindamycin susceptibility test by minimum inhibitory concentration > NRG Erythromycin susceptibility test by minimum inhibitory concentration > NRG Vancomycin susceptibility test by minimum inhibitory c oncentration 2 NRG Levofloxacin susceptibility test by minimum inhibitory concentration > NRG Rifampin susceptibility test by minimum inhibitory con centration <= NRG Cefazolin susceptibility test by minimum inhibitory co ncentration R NRG Linezolid susceptibility test by minimum inhibitory co ncentration > NRG Penicillin G susceptibility test by minimum inhibitory concentration > NRG Moxifloxacin susceptibility test by minimum inhibitory concentration 2 NRG Minocycline susc ARMINDA <= NRG Complete blood count (CBC) with automate d white blood cell (WBC) differential - 02/13/19 18:05 Blood leukocytes automated count (number/volume) 14.5 10*3/uL 4.3-11.0 Blood erythrocytes automated count (number/volume) 5.27 10*6/uL 4.35-5.85 Venous blood hemoglobin measurement (mass/volume) 15.2 g/dL 13.3-17.7 Blood hematocrit (volume fraction) 42 % 40-54 Automated erythrocyte mean corpuscular volume 79 [ foz_us] 80-99 Automated erythrocyte mean corpuscular h emoglobin (mass per erythrocyte) 29 pg 25-34 Automated erythrocyte mean corpuscular h emoglobin concentration measurement (mass/volume) 36 g/dL 32-36 Automated erythrocyte distribution width ratio 14. 0 % 10.0- 14.5 Automated blood platelet count (count/volume) 188 10*3/uL 130-400 Automated blood platelet mean volume measurement 11.5 [foz_us] 7.4-10.4 Automated blood neutrophils/100 leukocytes 73 % 42-75 Automated blood lymphocytes/100 leukocytes 18 % 12-44 Blood monocytes/100 leukocytes 9 % 0-12 Automated blood eosinophils/100 leukocytes 1 % 0-10 Automated blood basophils/100 leukocytes 1 % 0-10 Blood neutrophils automated count (number/volume) 10.5 10*3 1.8-7.8 Blood lymphocytes automated count (number/volume) 2.6 10*3 1.0-4.0 Blood monocytes automated count (number/volume) 1. 2 10*3 0.0-1.0 Automated eosinophil count 0.1 10*3/uL 0 .0-0.3 Automated blood basophil count (count/volume) 0.1 10*3/uL 0.0-0.1 Comprehensive metabolic panel - 02/13/19 18:05 Serum or plasma sodium measurement (moles/volume) 131 mmol/L 135-145 Serum or plasma potassium measurement (moles/volume) 4.2 mmol/L 3.6-5.0 Serum or plasma chloride measurement (moles/volume) 99 mmol/L 98-107 Carbon dioxide 22 mmol/L 21-32 Serum or plasma anion gap determination (moles/volume) 10 mmol/L 5-14 Serum or plasma urea nitrogen measurement (mass/volume ) 14 mg/dL 7-18 Serum or plasma creatinine measurement (mass/volume) 0.93 mg/dL 0.60-1.30 Serum or plasma urea nitrogen/creatinine mass ratio 15 NRG Serum or plasma creatinine measurement w ith calculation of estimated glomerular filtration rate > NRG Serum or plasma glucose measurement (mass/volume) 439 mg/dL 70-105 Serum or plasma calcium measurement (mass/volume) 9.5 mg/dL 8.5-10.1 Serum or plasma total bilirubin measurement (mass/volu me) 0.6 mg/dL 0.1-1.0 Serum or plasma alkaline phosphatase demi surement (enzymatic activity/volume) 74 U/L 40-136 Serum or plasma aspartate aminotransfera se measurement (enzymatic activity/volume) 11 U/L 5-34 Serum or plasma alanine aminotransferase measurement (enzymatic activity/volume) 18 U/L 0-55 Serum or plasma protein measurement (mass/volume) 6.9 g/dL 6.4-8.2 Serum or plasma albumin measurement (mass/volume) 4.2 g/dL 3.2-4.5 CALCIUM CORRECTED 9.3 mg/dL 8.5-10.1 Magnesium - 02/13/19 18:05 Magnesium 1.8 mg/dL 1.8-2.4 Serum or plasma C reactive protein measu rement (mass/volume) - 02/13/19 18:05 Serum or plasma C reactive protein measurement (mass/v olume) 2.13 mg/dL 0.00-0.50 Blood lactic acid measurement (moles/vol ume) - 02/13/19 18:05 Blood lactic acid measurement (moles/volume) 2.80 mmol/L 0.50-2.00 Serum or plasma ethanol measurement (mas s/volume) - 02/13/19 18:05 Serum or plasma ethanol measurement (mass/volume) < mg/dL <10 Blood manual differential performed dete ction - 02/13/19 18:05 Blood monocytes/100 leukocytes 9 % NRG Manual blood segmented neutrophils/100 leukocytes 69 % NRG Blood band neutrophils/100 leukocytes 1 % NRG Manual blood lymphocytes/100 leukocytes 19 % NRG Manual eosinophils/100 leukocytes in nose 1 % NRG Manual blood basophils/100 leukocytes 0 % NRG Blood lymphocytes variant/100 leukocytes 1 % NRG Blood erythrocyte morphology finding identification NORMAL NRG PT panel in platelet poor plasma by coag ulation assay - 02/13/19 18:05 Prothrombin time (PT) in platelet poor plasma by coagu lation assay 13.5 s 12.2-14.7 INR in platelet poor plasma or blood by coagulation as say 1.0 0.8-1.4 Activated partial thromboplastin time (a PTT) in platelet poor plasma bycoagulation assay - 02/13/19 18:05 Activated partial thromboplastin time (a PTT) in platelet poor plasma bycoagulation assay 28 s 24-35 Erythrocyte sedimentation rate by kwadwo gren method - 02/13/19 18:05 Erythrocyte sedimentation rate by westergren method 1 mm 0- 30 Bacterial blood culture - 02/13/19 18:05 Bacterial blood culture NG NRG Complete urinalysis with reflex to cultu re - 02/13/19 18:18 Urine color determination YELLOW NRG Urine clarity determination CLEAR NR G Urine pH measurement by test strip 5 5-9 Specific gravity of urine by test strip 1.015 1.016-1.022 Urine protein assay by test strip, semi-quantitative NEGATIVE NEGATIVE Urine glucose detection by automated test strip 4+ NEGATIVE Erythrocytes detection in urine sediment by light micr oscopy NEGATIVE NEGATIVE Urine ketones detection by automated test strip NE GATIVE NEGATIVE Urine nitrite detection by test strip NEGATIVE NEGATIVE Urine total bilirubin detection by test strip NEGA TIVE NEGATIVE Urine urobilinogen measurement by automated test strip (mass/volume) NORMAL NORMAL Urine leukocyte esterase detection by dipstick NEG ATIVE NEGATIVE Automated urine sediment erythrocyte cou nt by microscopy (number/high power field) NONE NRG Automated urine sediment leukocyte count by microscopy (number/high power field) NONE NRG Bacteria detection in urine sediment by light microsco py NEGATIVE NRG Squamous epithelial cells detection in u rine sediment by light microscopy RARE NRG Crystals detection in urine sediment by light microsco py NONE NRG Casts detection in urine sediment by light microscopy NONE NRG Mucus detection in urine sediment by light microscopy NEGATIVE NRG Complete urinalysis with reflex to culture CULTURE PENDING NRG Urine drug screening test - 02/13/19 18: 18 Urine phencyclidine detection by screening method NEGATIVE NEGATIVE Urine benzodiazepines detection by screening method NEGATIVE NEGATIVE Urine cocaine detection NEGATIVE NEGATI VE Urine amphetamines detection by screening method N EGATIVE NEGATIVE Urine methamphetamine detection by screening method NEGATIVE NEGATIVE Urine cannabinoids detection by screening method N EGATIVE NEGATIVE Urine opiates detection by screening method NEGATI VE NEGATIVE Urine barbiturates detection NEGATIVE N EGATIVE Screening urine tricyclic antidepressants detection NEGATIVE NEGATIVE Urine methadone detection by screening method NEGA TIVE NEGATIVE Urine oxycodone detection POSITIVE NEGA TIVE Urine propoxyphene detection NEGATIVE N EGATIVE Bacterial urine culture - 02/13/19 18:18 Bacterial urine culture NG NRG Gram stain microscopy - 02/13/19 18:18 Gram stain microscopy Mixed Bacterial Maribel NRG Bacteria identification in wound by cult ure - 02/13/19 18:18 Bacteria identification in wound by culture [id number] NRG FREE TEXT EXTERNAL NO BETA STREP, STAPH AUREUS, OR NRG QUANTITY OF GROWTH Many NRG FREE TEXT ENTRY 2 PSEUDOMONAS ISOLATED NRG Bacterial blood culture - 02/13/19 18:40 Bacterial blood culture NG NRG Serum or plasma lactate measurement (mol es/volume) - 02/13/19 20:00 Serum or plasma lactate measurement (moles/volume) 1.96 mmol/L 0.50-2.00 Capillary blood glucose measurement by g lucometer (mass/volume) - 02/13/19 20:23 Capillary blood glucose measurement by glucometer (mas s/volume) 200 mg/dL 70-110 Capillary blood glucose measurement by g lucometer (mass/volume) - 02/13/19 21:14 Capillary blood glucose measurement by glucometer (mas s/volume) 52 mg/dL 70-110 Capillary blood glucose measurement by g lucometer (mass/volume) - 02/13/19 22:04 Capillary blood glucose measurement by glucometer (mas s/volume) 145 mg/dL 70-110 Complete blood count (CBC) with automate d white blood cell (WBC) differential - 02/14/19 04:07 Blood leukocytes automated count (number/volume) 8.6 10*3/uL 4.3-11.0 Blood erythrocytes automated count (number/volume) 4.72 10*6/uL 4.35-5.85 Venous blood hemoglobin measurement (mass/volume) 13.5 g/dL 13.3-17.7 Blood hematocrit (volume fraction) 39 % 40-54 Automated erythrocyte mean corpuscular volume 83 [ foz_us] 80-99 Automated erythrocyte mean corpuscular h emoglobin (mass per erythrocyte) 29 pg 25-34 Automated erythrocyte mean corpuscular h emoglobin concentration measurement (mass/volume) 35 g/dL 32-36 Automated erythrocyte distribution width ratio 14. 4 % 10.0- 14.5 Automated blood platelet count (count/volume) 161 10*3/uL 130-400 Automated blood platelet mean volume measurement 10.8 [foz_us] 7.4-10.4 Automated blood neutrophils/100 leukocytes 60 % 42-75 Automated blood lymphocytes/100 leukocytes 28 % 12-44 Blood monocytes/100 leukocytes 9 % 0-12 Automated blood eosinophils/100 leukocytes 3 % 0-10 Automated blood basophils/100 leukocytes 1 % 0-10 Blood neutrophils automated count (number/volume) 5.2 10*3 1.8-7.8 Blood lymphocytes automated count (number/volume) 2.4 10*3 1.0-4.0 Blood monocytes automated count (number/volume) 0. 7 10*3 0.0-1.0 Automated eosinophil count 0.2 10*3/uL 0 .0-0.3 Automated blood basophil count (count/volume) 0.1 10*3/uL 0.0-0.1 Comprehensive metabolic panel - 02/14/19 04:07 Serum or plasma sodium measurement (moles/volume) 136 mmol/L 135-145 Serum or plasma potassium measurement (moles/volume) 4.0 mmol/L 3.6-5.0 Serum or plasma chloride measurement (moles/volume) 105 mmol/L 98-107 Carbon dioxide 24 mmol/L 21-32 Serum or plasma anion gap determination (moles/volume) 7 mmol/L 5-14 Serum or plasma urea nitrogen measurement (mass/volume ) 13 mg/dL 7-18 Serum or plasma creatinine measurement (mass/volume) 0.81 mg/dL 0.60-1.30 Serum or plasma urea nitrogen/creatinine mass ratio 16 NRG Serum or plasma creatinine measurement w ith calculation of estimated glomerular filtration rate > NRG Serum or plasma glucose measurement (mass/volume) 356 mg/dL 70-105 Serum or plasma calcium measurement (mass/volume) 8.7 mg/dL 8.5-10.1 Serum or plasma total bilirubin measurement (mass/volu me) 0.9 mg/dL 0.1-1.0 Serum or plasma alkaline phosphatase demi surement (enzymatic activity/volume) 63 U/L 40-136 Serum or plasma aspartate aminotransfera se measurement (enzymatic activity/volume) 8 U/L 5-34 Serum or plasma alanine aminotransferase measurement (enzymatic activity/volume) 14 U/L 0-55 Serum or plasma protein measurement (mass/volume) 5.4 g/dL 6.4-8.2 Serum or plasma albumin measurement (mass/volume) 3.3 g/dL 3.2-4.5 CALCIUM CORRECTED 9.3 mg/dL 8.5-10.1 Capillary blood glucose measurement by g lucometer (mass/volume) - 02/14/19 05:04 Capillary blood glucose measurement by glucometer (mas s/volume) 307 mg/dL 70-110 Capillary blood glucose measurement by g lucometer (mass/volume) - 02/14/19 10:49 Capillary blood glucose measurement by glucometer (mas s/volume) 206 mg/dL 70-110 Capillary blood glucose measurement by g lucometer (mass/volume) - 02/14/19 15:44 Capillary blood glucose measurement by glucometer (mas s/volume) 135 mg/dL 70-110 Capillary blood glucose measurement by g lucometer (mass/volume) - 02/14/19 20:12 Capillary blood glucose measurement by glucometer (mas s/volume) 134 mg/dL 70-110 Capillary blood glucose measurement by g lucometer (mass/volume) - 02/15/19 05:11 Capillary blood glucose measurement by glucometer (mas s/volume) 113 mg/dL 70-110 Capillary blood glucose measurement by g lucometer (mass/volume) - 02/15/19 11:06 Capillary blood glucose measurement by glucometer (mas s/volume) 92 mg/dL 70-110 Capillary blood glucose measurement by g lucometer (mass/volume) - 02/15/19 15:44 Capillary blood glucose measurement by glucometer (mas s/volume) 95 mg/dL 70-110 Vancomycin trough - 02/15/19 19:10 Vancomycin trough 11.1 ug/mL 10.0-20.0 Capillary blood glucose measurement by g lucometer (mass/volume) - 02/15/19 19:44 Capillary blood glucose measurement by glucometer (mas s/volume) 90 mg/dL 70-110 Capillary blood glucose measurement by g lucometer (mass/volume) - 02/16/19 05:22 Capillary blood glucose measurement by glucometer (mas s/volume) 163 mg/dL 70-110 Capillary blood glucose measurement by g lucometer (mass/volume) - 02/16/19 11:34 Capillary blood glucose measurement by glucometer (mas s/volume) 140 mg/dL 70-110 Capillary blood glucose measurement by g lucometer (mass/volume) - 02/16/19 16:47 Capillary blood glucose measurement by glucometer (mas s/volume) 138 mg/dL 70-110 Capillary blood glucose measurement by g lucometer (mass/volume) - 02/16/19 22:43 Capillary blood glucose measurement by glucometer (mas s/volume) 190 mg/dL 70-110 Capillary blood glucose measurement by g lucometer (mass/volume) - 02/17/19 05:11 Capillary blood glucose measurement by glucometer (mas s/volume) 220 mg/dL 70-110 Capillary blood glucose measurement by g lucometer (mass/volume) - 02/17/19 09:01 Capillary blood glucose measurement by glucometer (mas s/volume) 56 mg/dL 70-110 Capillary blood glucose measurement by g lucometer (mass/volume) - 02/17/19 11:03 Capillary blood glucose measurement by glucometer (mas s/volume) 135 mg/dL 70-110 Complete blood count (CBC) with automate d white blood cell (WBC) differential - 03/12/19 12:08 Blood leukocytes automated count (number/volume) 13.2 10*3/uL 4.3-11.0 Blood erythrocytes automated count (number/volume) 5.01 10*6/uL 4.35-5.85 Venous blood hemoglobin measurement (mass/volume) 14.4 g/dL 13.3-17.7 Blood hematocrit (volume fraction) 42 % 40-54 Automated erythrocyte mean corpuscular volume 83 [ foz_us] 80-99 Automated erythrocyte mean corpuscular h emoglobin (mass per erythrocyte) 29 pg 25-34 Automated erythrocyte mean corpuscular h emoglobin concentration measurement (mass/volume) 35 g/dL 32-36 Automated erythrocyte distribution width ratio 14. 7 % 10.0- 14.5 Automated blood platelet count (count/volume) 207 10*3/uL 130-400 Automated blood platelet mean volume measurement 10.8 [foz_us] 7.4-10.4 Automated blood neutrophils/100 leukocytes 66 % 42-75 Automated blood lymphocytes/100 leukocytes 24 % 12-44 Blood monocytes/100 leukocytes 7 % 0-12 Automated blood eosinophils/100 leukocytes 2 % 0-10 Automated blood basophils/100 leukocytes 1 % 0-10 Blood neutrophils automated count (number/volume) 8.6 10*3 1.8-7.8 Blood lymphocytes automated count (number/volume) 3.2 10*3 1.0-4.0 Blood monocytes automated count (number/volume) 1. 0 10*3 0.0-1.0 Automated eosinophil count 0.3 10*3/uL 0 .0-0.3 Automated blood basophil count (count/volume) 0.1 10*3/uL 0.0-0.1 Complete blood count (CBC) with automate d white blood cell (WBC) differential - 03/12/19 21:45 Blood leukocytes automated count (number/volume) 21.3 10*3/uL 4.3-11.0 Blood erythrocytes automated count (number/volume) 5.29 10*6/uL 4.35-5.85 Venous blood hemoglobin measurement (mass/volume) 15.1 g/dL 13.3-17.7 Blood hematocrit (volume fraction) 43 % 40-54 Automated erythrocyte mean corpuscular volume 82 [ foz_us] 80-99 Automated erythrocyte mean corpuscular h emoglobin (mass per erythrocyte) 29 pg 25-34 Automated erythrocyte mean corpuscular h emoglobin concentration measurement (mass/volume) 35 g/dL 32-36 Automated erythrocyte distribution width ratio 15. 0 % 10.0- 14.5 Automated blood platelet count (count/volume) 248 10*3/uL 130-400 Automated blood platelet mean volume measurement 11.1 [foz_us] 7.4-10.4 Automated blood neutrophils/100 leukocytes 75 % 42-75 Automated blood lymphocytes/100 leukocytes 18 % 12-44 Blood monocytes/100 leukocytes 5 % 0-12 Automated blood eosinophils/100 leukocytes 1 % 0-10 Automated blood basophils/100 leukocytes 0 % 0-10 Blood neutrophils automated count (number/volume) 16.0 10*3 1.8-7.8 Blood lymphocytes automated count (number/volume) 3.8 10*3 1.0-4.0 Blood monocytes automated count (number/volume) 1. 2 10*3 0.0-1.0 Automated eosinophil count 0.3 10*3/uL 0 .0-0.3 Automated blood basophil count (count/volume) 0.1 10*3/uL 0.0-0.1 Manual absolute plasma cell count - 02/15 04/03 21:45 Blood monocytes/100 leukocytes 6 % NRG Manual blood segmented neutrophils/100 leukocytes 71 % NRG Manual blood lymphocytes/100 leukocytes 22 % NRG Manual eosinophils/100 leukocytes in nose 1 % NRG Blood erythrocyte morphology finding identification NORMAL NRG Blood lactic acid measurement (moles/vol ume) - 03/12/19 21:45 Blood lactic acid measurement (moles/volume) 1.17 mmol/L 0.50-2.00 Comprehensive metabolic panel - 03/12/19 21:45 Serum or plasma sodium measurement (moles/volume) 137 mmol/L 135-145 Serum or plasma potassium measurement (moles/volume) 4.0 mmol/L 3.6-5.0 Serum or plasma chloride measurement (moles/volume) 102 mmol/L 98-107 Carbon dioxide 23 mmol/L 21-32 Serum or plasma anion gap determination (moles/volume) 12 mmol/L 5-14 Serum or plasma urea nitrogen measurement (mass/volume ) 14 mg/dL 7-18 Serum or plasma creatinine measurement (mass/volume) 0.87 mg/dL 0.60-1.30 Serum or plasma urea nitrogen/creatinine mass ratio 16 NRG Serum or plasma creatinine measurement w ith calculation of estimated glomerular filtration rate > NRG Serum or plasma glucose measurement (mass/volume) 91 mg/dL 70-105 Serum or plasma calcium measurement (mass/volume) 9.9 mg/dL 8.5-10.1 Serum or plasma total bilirubin measurement (mass/volu me) 0.7 mg/dL 0.1-1.0 Serum or plasma alkaline phosphatase demi surement (enzymatic activity/volume) 80 U/L 40-136 Serum or plasma aspartate aminotransfera se measurement (enzymatic activity/volume) 13 U/L 5-34 Serum or plasma alanine aminotransferase measurement (enzymatic activity/volume) 15 U/L 0-55 Serum or plasma protein measurement (mass/volume) 7.6 g/dL 6.4-8.2 Serum or plasma albumin measurement (mass/volume) 4.5 g/dL 3.2-4.5 CALCIUM CORRECTED 9.5 mg/dL 8.5-10.1 Bacterial blood culture - 03/12/19 21:45 Bacterial blood culture NG NRG Bacterial blood culture - 03/12/19 22:43 Bacterial blood culture NG NRG Complete blood count (CBC) with automate d white blood cell (WBC) differential - 03/13/19 05:35 Blood leukocytes automated count (number/volume) 11.6 10*3/uL 4.3-11.0 Blood erythrocytes automated count (number/volume) 4.87 10*6/uL 4.35-5.85 Venous blood hemoglobin measurement (mass/volume) 13.8 g/dL 13.3-17.7 Blood hematocrit (volume fraction) 41 % 40-54 Automated erythrocyte mean corpuscular volume 84 [ foz_us] 80-99 Automated erythrocyte mean corpuscular h emoglobin (mass per erythrocyte) 28 pg 25-34 Automated erythrocyte mean corpuscular h emoglobin concentration measurement (mass/volume) 34 g/dL 32-36 Automated erythrocyte distribution width ratio 15. 4 % 10.0- 14.5 Automated blood platelet count (count/volume) 198 10*3/uL 130-400 Automated blood platelet mean volume measurement 11.3 [foz_us] 7.4-10.4 Automated blood neutrophils/100 leukocytes 64 % 42-75 Automated blood lymphocytes/100 leukocytes 25 % 12-44 Blood monocytes/100 leukocytes 7 % 0-12 Automated blood eosinophils/100 leukocytes 3 % 0-10 Automated blood basophils/100 leukocytes 1 % 0-10 Blood neutrophils automated count (number/volume) 7.4 10*3 1.8-7.8 Blood lymphocytes automated count (number/volume) 2.9 10*3 1.0-4.0 Blood monocytes automated count (number/volume) 0. 8 10*3 0.0-1.0 Automated eosinophil count 0.4 10*3/uL 0 .0-0.3 Automated blood basophil count (count/volume) 0.1 10*3/uL 0.0-0.1 Comprehensive metabolic panel - 03/13/19 05:35 Serum or plasma sodium measurement (moles/volume) 136 mmol/L 135-145 Serum or plasma potassium measurement (moles/volume) 3.9 mmol/L 3.6-5.0 Serum or plasma chloride measurement (moles/volume) 105 mmol/L 98-107 Carbon dioxide 19 mmol/L 21-32 Serum or plasma anion gap determination (moles/volume) 12 mmol/L 5-14 Serum or plasma urea nitrogen measurement (mass/volume ) 11 mg/dL 7-18 Serum or plasma creatinine measurement (mass/volume) 0.75 mg/dL 0.60-1.30 Serum or plasma urea nitrogen/creatinine mass ratio 15 NRG Serum or plasma creatinine measurement w ith calculation of estimated glomerular filtration rate > NRG Serum or plasma glucose measurement (mass/volume) 137 mg/dL 70-105 Serum or plasma calcium measurement (mass/volume) 9.0 mg/dL 8.5-10.1 Serum or plasma total bilirubin measurement (mass/volu me) 0.7 mg/dL 0.1-1.0 Serum or plasma alkaline phosphatase demi surement (enzymatic activity/volume) 74 U/L 40-136 Serum or plasma aspartate aminotransfera se measurement (enzymatic activity/volume) 13 U/L 5-34 Serum or plasma alanine aminotransferase measurement (enzymatic activity/volume) 13 U/L 0-55 Serum or plasma protein measurement (mass/volume) 6.8 g/dL 6.4-8.2 Serum or plasma albumin measurement (mass/volume) 4.0 g/dL 3.2-4.5 CALCIUM CORRECTED 9.0 mg/dL 8.5-10.1 Capillary blood glucose measurement by g lucometer (mass/volume) - 03/13/19 05:42 Capillary blood glucose measurement by glucometer (mas s/volume) 134 mg/dL 70-110 Capillary blood glucose measurement by g lucometer (mass/volume) - 03/13/19 10:53 Capillary blood glucose measurement by glucometer (mas s/volume) 180 mg/dL 70-110 Capillary blood glucose measurement by g lucometer (mass/volume) - 03/13/19 15:39 Capillary blood glucose measurement by glucometer (mas s/volume) 128 mg/dL 70-110 Capillary blood glucose measurement by g lucometer (mass/volume) - 03/13/19 20:59 Capillary blood glucose measurement by glucometer (mas s/volume) 122 mg/dL 70-110 Capillary blood glucose measurement by g lucometer (mass/volume) - 03/14/19 06:06 Capillary blood glucose measurement by glucometer (mas s/volume) 80 mg/dL 70-110 Vancomycin trough - 03/14/19 08:19 Vancomycin trough 12.1 ug/mL 10.0-20.0 Capillary blood glucose measurement by g lucometer (mass/volume) - 03/14/19 11:29 Capillary blood glucose measurement by glucometer (mas s/volume) 117 mg/dL 70-110 Complete blood count (CBC) with automate d white blood cell (WBC) differential - 08/17/19 14:18 Blood leukocytes automated count (number/volume) 15.1 10*3/uL 4.3-11.0 Blood erythrocytes automated count (number/volume) 4.38 10*6/uL 4.35-5.85 Venous blood hemoglobin measurement (mass/volume) 12.3 g/dL 13.3-17.7 Blood hematocrit (volume fraction) 38 % 40-54 Automated erythrocyte mean corpuscular volume 87 [ foz_us] 80-99 Automated erythrocyte mean corpuscular h emoglobin (mass per erythrocyte) 28 pg 25-34 Automated erythrocyte mean corpuscular h emoglobin concentration measurement (mass/volume) 32 g/dL 32-36 Automated erythrocyte distribution width ratio 15. 5 % 10.0- 14.5 Automated blood platelet count (count/volume) 208 10*3/uL 130-400 Automated blood platelet mean volume measurement 10.6 [foz_us] 7.4-10.4 Automated blood neutrophils/100 leukocytes 82 % 42-75 Automated blood lymphocytes/100 leukocytes 12 % 12-44 Blood monocytes/100 leukocytes 5 % 0-12 Automated blood eosinophils/100 leukocytes 1 % 0-10 Automated blood basophils/100 leukocytes 1 % 0-10 Blood neutrophils automated count (number/volume) 12.3 10*3 1.8-7.8 Blood lymphocytes automated count (number/volume) 1.9 10*3 1.0-4.0 Blood monocytes automated count (number/volume) 0. 7 10*3 0.0-1.0 Automated eosinophil count 0.2 10*3/uL 0 .0-0.3 Automated blood basophil count (count/volume) 0.1 10*3/uL 0.0-0.1 PT panel in platelet poor plasma by coag ulation assay - 08/17/19 14:18 Prothrombin time (PT) in platelet poor plasma by coagu lation assay 13.2 s 12.2-14.7 INR in platelet poor plasma or blood by coagulation as say 1.0 0.8-1.4 Activated partial thromboplastin time (a PTT) in platelet poor plasma bycoagulation assay - 08/17/19 14:18 Activated partial thromboplastin time (a PTT) in platelet poor plasma bycoagulation assay 29 s 24-35 Comprehensive metabolic panel - 08/17/19 14:18 Serum or plasma sodium measurement (moles/volume) 136 mmol/L 135-145 Serum or plasma potassium measurement (moles/volume) 4.7 mmol/L 3.6-5.0 Serum or plasma chloride measurement (moles/volume) 100 mmol/L 98-107 Carbon dioxide 26 mmol/L 21-32 Serum or plasma anion gap determination (moles/volume) 10 mmol/L 5-14 Serum or plasma urea nitrogen measurement (mass/volume ) 15 mg/dL 7-18 Serum or plasma creatinine measurement (mass/volume) 1.13 mg/dL 0.60-1.30 Serum or plasma urea nitrogen/creatinine mass ratio 13 NRG Serum or plasma creatinine measurement w ith calculation of estimated glomerular filtration rate > NRG Serum or plasma glucose measurement (mass/volume) 287 mg/dL 70-105 Serum or plasma calcium measurement (mass/volume) 8.7 mg/dL 8.5-10.1 Serum or plasma total bilirubin measurement (mass/volu me) 0.5 mg/dL 0.1-1.0 Serum or plasma alkaline phosphatase demi surement (enzymatic activity/volume) 73 U/L 40-136 Serum or plasma aspartate aminotransfera se measurement (enzymatic activity/volume) 13 U/L 5-34 Serum or plasma alanine aminotransferase measurement (enzymatic activity/volume) 20 U/L 0-55 Serum or plasma protein measurement (mass/volume) 7.0 g/dL 6.4-8.2 Serum or plasma albumin measurement (mass/volume) 4.2 g/dL 3.2-4.5 CALCIUM CORRECTED 8.5 mg/dL 8.5-10.1 Manual absolute plasma cell count - 11/04 14:18 Blood monocytes/100 leukocytes 3 % NRG Manual blood segmented neutrophils/100 leukocytes 74 % NRG Blood band neutrophils/100 leukocytes 2 % NRG Manual blood lymphocytes/100 leukocytes 20 % NRG Manual eosinophils/100 leukocytes in nose 1 % NRG Manual blood basophils/100 leukocytes 0 % NRG Blood anisocytosis detection by light microscopy S LIGHT NRG Blood lactic acid measurement (moles/vol ume) - 08/17/19 14:18 Blood lactic acid measurement (moles/volume) 2.31 mmol/L 0.50-2.00 Encounters ACCT No. Visit Date/Time Discharge Status Pt. Type Provider Facility Loc./Unit Complaint [id number] 01/05/2015 10:37:00 01/05/2015 23:59: 59 CLS Outpatient MISTI MINER TATYANA L [id number] 12/03/2014 08:49:00 12/03/2014 23:59: 59 CLS Outpatient JUSTICE VARGAS MD [id number] 10/18/2014 15:07:00 10/18/2014 23:59: 59 CLS Outpatient JOANGray MINER TATYANA L [id number] 07/14/2014 08:47:00 07/14/2014 23:59: 59 CLS Outpatient TATYANA CHAPPELL APRN [id number] 06/30/2014 11:06:00 06/30/2014 23:59: 59 CLS Outpatient MISTI MINER TATYANA L [id number] 06/29/2014 11:05:00 06/29/2014 23:59: 59 CLS Outpatient TATYANA CHAPPELL APRN [id number] 06/23/2014 08:57:00 06/23/2014 23:59: 59 CLS Outpatient JOSE VERDUZCO APRN [id number] 06/23/2014 08:57:00 06/23/2014 23:59: 59 CLS Outpatient JOSE VERDUZCO APRN [id number] 05/19/2014 06:36:00 05/19/2014 23:59: 59 CLS Outpatient SIMPSON DO NELI Hernandez [id number] 05/12/2014 15:51:00 05/12/2014 23:59: 59 CLS Outpatient TATIANA DO NELI Hernandez [id number] 05/12/2014 15:51:00 05/12/2014 23:59: 59 CLS Outpatient MADL PATIENT COORDINATORTATYANA L [id number] 04/09/2014 13:44:00 04/09/2014 23:59: 59 CLS Outpatient MADL PATIENT COORDINATORTATYANA L [id number] 03/30/2014 12:51:00 03/30/2014 23:59: [address] [id number] 03/12/2014 14:10:00 03/12/2014 23:59: 59 CLS Outpatient WESLEY LSFERNANDA Deyanira [id number] 03/05/2014 09:24:00 03/05/2014 23:59: 59 CLS Outpatient SIMPSON DONELI David [id number] 02/09/2014 13:28:00 02/09/2014 23:59: 59 CLS Outpatient MADL PATIENT COORDINATOR, TATYANA L [id number] 02/03/2014 00:00:00 02/03/2014 23:59: 59 CLS Outpatient MADL PATIENT COORDINATORTATYANA L [id number] 02/01/2014 16:00:00 02/01/2014 23:59: 59 CLS Outpatient MADL PATIENT COORDINATORTATYANA L [id number] 12/31/2013 10:31:00 12/31/2013 23:59: 59 CLS Outpatient TATIANA DOPETERKatelynn Hernandez [id number] 12/17/2013 10:09:00 12/17/2013 23:59: 59 CLS Outpatient SIMPSON DONELI [id number] 10/23/2013 11:11:00 10/23/2013 23:59: 59 CLS Outpatient PATY LATHAM MD [id number] 08/27/2013 14:44:00 08/27/2013 23:59: 59 CLS Outpatient MIKE WALLIS, TESSA [id number] 07/16/2013 07:30:00 07/16/2013 23:59: 59 CLS Outpatient SIMPSON DONELI [id number] 07/08/2013 10:23:00 07/08/2013 23:59: 59 CLS Outpatient PATY LATHAM MD [id number] 06/09/2013 11:23:00 06/09/2013 23:59: 59 CLS Outpatient PATY LATHAM MD [id number] 12/02/2012 09:20:00 12/02/2012 23:59: 59 CLS Outpatient PATY LATHAM MD [id number] 11/27/2012 12:48:00 11/27/2012 23:59: 59 CLS Outpatient [id number] 11/24/2012 13:51:00 11/24/2012 23:59: 59 CLS Outpatient [id number] 11/07/2012 15:04:00 11/07/2012 23:59: 59 CLS Outpatient [id number] 10/28/2012 10:45:00 10/28/2012 23:59: 59 CLS Outpatient TESSA MCKEON MD [id number] 10/23/2012 10:26:00 10/23/2012 23:59: 59 CLS Outpatient [id number] 10/08/2012 09:50:00 10/08/2012 23:59: 59 CLS Outpatient PATY LATHAM MD [id number] 09/22/2012 14:19:00 09/22/2012 23:59: 59 CLS Outpatient TESSA MCKEON MD [id number] 09/08/2012 08:08:00 09/08/2012 23:59: 59 CLS Outpatient PATY LATHAM MD [id number] 08/22/2012 13:36:00 08/22/2012 23:59: 59 [place] [id number] 08/15/2012 14:45:00 08/15/2012 23:59:5 9 CLS Outpatient JUDY MERCER APRN [id number] 05/01/2013 09:35:00 Document Registration [id number] 04/16/2013 09:41:00 Document Registration [id number] 04/01/2013 08:30:00 Document Registration [id number] 02/26/2013 15:23:00 Document Registration [id number] 01/20/2013 13:55:00 Document Registration [id number] 01/06/2013 13:52:00 Document Registration [id number] 08/27/2019 11:18:00 019 23:59:59 CLS Outpatient ADITYA APODACA APRN [facility] RAD COPD [id number] 08/17/2019 07:05:00 23:59:59 CLS Outpatient ADITYA APODACA APRN [facility] RAD ACUTE URI, COPD [id number] 08/17/2019 13:58:00 16:32:00 DIS Outpatient RAN WYNN DO [facility] ER POSS TB [id number] 08/10/2019 10:52:00 23:59:59 CLS Outpatient ADITYA APODACA APRN [facility] RAD ACUTE URI [id number] 08/03/2019 11:06:00 12:40:00 DIS Outpatient [facility]IG[facility]TIBIOTIC [id number] 07/09/2019 08:30:00 23:59:59 CLS Preadmit JUSTICE VARGAS MD [facility] CARD PALPITATIONS, BUNDLE BR ANCH BLOCK, LEFT [id number] 07/06/2019 07:10:00 23:59:59 CLS Outpatient JUSTICE VARGAS MD [facility] CARD PALPITATIONS, BUNDLE BR ANCH BLOCK, LEFT [id number] 06/26/2019 13:45:00 23:59:59 CLS Outpatient ADITYA APODACA APRN [facility] RT TOBACCO USER,CO PD,SOB [id number] 05/20/2019 08:15:00 23:59:59 CLS Preadmit ADITYA APODACA APRN [facility] RT COPD W/ ASTHMA, PULMONARY NODULE [id number] 05/19/2019 14:47:00 23:59:59 CLS Outpatient KIMBER STAPLES MD [facility] WOUNDCARE [id number] 04/20/2019 08:08:00 23:59:59 CLS Outpatient KIMBER STAPLES MD [facility]OUND[facility] [id number] 03/23/2019 08:09:00 23:59:59 CLS Outpatient KIMBER STAPLES MD [facility] WOUNDC[facility] [id number] 03/16/2019 08:09:00 23:59:59 CLS Outpatient KIMBER STAPLES MD [facility]OUND[facility] [id number] 03/12/2019 22:43:00 13:30:00 DIS Inpatient MICHAEL LAGUNA, SHANNON V [facility] 4TH SEPSIS,CELLULITIS L ALECIA T, L TOE Fx [id number] 03/12/2019 11:32:00 23:59:59 CLS Outpatient LIZZETTE OLSON APRN [facility] RAD E11.621,M86.472 [id number] 03/12/2019 09:45:00 23:59:59 CLS Outpatient LIZZETTE OLSON APRN [facility] WOUNDCARE [id number] 03/10/2019 08:25:00 23:59:59 CLS Outpatient KIMBER STAPLES MD [facility] WOUND[facility] [id number] 02/24/2019 08:52:00 23:59:59 CLS Outpatient ADITYA APODACA APRN [facility] RAD PULMONARY NODUL E [id number] 02/13/2019 19:00:00 13:24:00 DIS Inpatient RONA ENRIQUE MD [facility] 4TH OSTEOMYELITIS L GREAT TOE,CELLULITIS L GREAT TOE [id number] 02/10/2019 08:56:00 23:59:59 CLS Outpatient KIMBER STAPLES MD [facility] WOUNDCARE [id number] 02/03/2019 09:02:00 23:59:59 CLS Outpatient LIZZETTE OLSON APRN [facility] WOUNDC[facility] [id number] 02/03/2019 09:55:00 10:15:00 DIS Outpatient LIZZETTE OLSON APRN [facility] E11.621 Z72.0 [id number] 01/27/2019 08:52:00 23:59:59 CLS Outpatient LIZZETTE OLSON PATIENT COORDINATOR [facility] WOUNDCARE [id number] 01/19/2019 09:10:00 23:59:59 CLS Outpatient KIMBER STAPLES MD [facility] TYPE 2 DIABETES,FOOT UL CER [id number] 01/19/2019 08:15:00 23:59:59 CLS Outpatient KIMBER STAPLES MD [facility] WOUNDCARE [id number] 01/13/2019 08:46:00 23:59:59 CLS Outpatient LIZZETTE OLSON R PATIENT COORDINATOR [facility]OUND[facility] [id number] 01/06/2019 08:54:00 23:59:59 CLS Outpatient LIZZETTE OLSON R PATIENT COORDINATOR [facility] WOUND[facility] [id number] 12/30/2018 08:53:00 23:59:59 CLS Outpatient WESLEY LIZZETTE R PATIENT COORDINATOR [facility]OUND[facility] [id number] 12/23/2018 08:52:00 23:59:59 CLS Outpatient WESLEY LIZZETTE R PATIENT COORDINATOR [facility]OUND[facility] [id number] 12/09/2018 08:46:00 23:59:59 CLS Outpatient WESLEY LIZZETTE R PATIENT COORDINATOR [facility] [id number] 12/02/2018 08:52:00 23:59:59 CLS Outpatient WESLEY LIZZETTE R PATIENT COORDINATOR [facility]OUND[facility] [id number] 11/25/2018 08:57:00 23:59:59 CLS Outpatient LIZZETTE OLSON R PATIENT COORDINATOR [facility] [id number] 11/17/2018 10:24:00 23:59:59 CLS Outpatient KIMBER STAPLES MD [facility] RAD CHRONIC OSTEOMYELITIS W ITH DRAINING SINUS [id number] 11/17/2018 09:28:00 23:59:59 CLS Outpatient KIMBER STAPLES MD [facility] WOUNDCARE [id number] 11/11/2018 08:26:00 23:59:59 CLS Outpatient LIZZETET OLSON APRN [facility] [id number] 11/04/2018 08:57:00 23:59:59 CLS Outpatient LIZZETTE OLSON APRN [facility]OUND[facility] [id number] 10/29/2018 08:50:00 12:15:00 DIS Outpatient KIMBER WORRELL MD [facility] SDC LEFT LONG TRIGGER FING ER [id number] 10/28/2018 09:29:00 23:59:59 CLS Outpatient LIZZETTE OLSON PATIENT COORDINATOR [facility] WOUNDCARE [id number] 10/27/2018 05:32:00 08:58:00 DIS Outpatient KIMBER WORRELL MD [facility] PREOP LEFT TRIGGER FINGER [id number] 10/21/2018 09:24:00 23:59:59 CLS Outpatient LIZZETTE OLSON PATIENT COORDINATOR [facility] WOUNDCARE [id number] 10/14/2018 09:25:00 23:59:59 CLS Outpatient LIZZETTE OLSON PATIENT COORDINATOR [facility] [id number] 10/07/2018 09:27:00 23:59:59 CLS Outpatient LIZZETTE OLSON PATIENT COORDINATOR [facility]OUND[facility] [id number] 09/30/2018 09:30:00 23:59:59 CLS Outpatient KIMBER STAPLES MD [facility]OUND[facility] [id number] 09/23/2018 11:08:00 23:59:59 CLS Outpatient LIZZETTE OLSON PATIENT COORDINATOR [facility]OUND[facility] [id number] 09/15/2018 09:19:00 018 23:59:59 CLS Outpatient WESLEY LIZZETTE R PATIENT COORDINATOR [facility]OUND[facility] [id number] 09/01/2018 14:32:00 018 23:59:59 CLS Outpatient WESLEY LIZZETTE R PATIENT COORDINATOR [facility]OUND[facility] [id number] 08/27/2018 15:56:00 018 23:59:59 CLS Preadmit ADITYA APODACA PATIENT COORDINATOR [facility] RT COPD [id number] 08/25/2018 14:29:00 018 23:59:59 CLS Outpatient LIZZETTE OLSON R PATIENT COORDINATOR [facility] WOUNDC[facility] [id number] 08/20/2018 11:20:00 018 23:59:59 CLS Outpatient DAVID SANTAMARIA MD [facility]OUND[facility] [id number] 08/18/2018 14:47:00 018 23:59:59 CLS Outpatient LIZZETTE OLSON R PATIENT COORDINATOR [facility]OUND[facility] [id number] 08/14/2018 09:12:00 018 23:59:59 CLS Outpatient ADITYA APODACA PATIENT COORDINATOR [facility] RAD Z98.890,R05 [id number] 08/13/2018 06:54:00 018 10:20:00 DIS Outpatient BRENDON PLUNKETT DO [facility] ENDO INTERSTITIAL LUNG DISEASE/LYMPHADENOPATHY [id number] 08/11/2018 14:30:00 018 23:59:59 CLS Outpatient WESLEY LIZZETTE R PATIENT COORDINATOR [facility] WOUNDCARE [id number] 08/11/2018 09:30:00 018 10:04:00 DIS Outpatient BRENDON PLUNKETT DO [facility] PREOP EBUS [id number] 08/04/2018 14:22:00 018 23:59:59 CLS Outpatient LIZZETTE OLSON PATIENT COORDINATOR [facility] WOUNDCARE [id number] 07/29/2018 08:33:00 23:59:59 CLS Outpatient ADITYA APODACA PATIENT COORDINATOR [facility] RAD LUNG MASS [id number] 07/28/2018 13:59:00 23:59:59 CLS Outpatient LIZZETTE OLSON PATIENT COORDINATOR [facility] WOUNDCARE [id number] 07/23/2018 06:35:00 10:11:00 DIS Outpatient BRENDON PLUNKETT DO [facility] ENDO HYPOXEMIA/LUNG DISEASE/ PULMONARY NODULE/RENAE/SJOGRE [id number] 07/22/2018 05:45:00 09:28:00 DIS Outpatient BRENDON PLUNKETT DO [facility] PREOP BRONCHOSCOPY [id number] 07/21/2018 16:03:00 23:59:59 CLS Outpatient KIMBER STAPLES MD [facility] LAB TYPE 2 DIABETES MELLITU S WITH FOOT ULCER [id number] 07/21/2018 14:30:00 23:59:59 CLS Outpatient KIMBER STAPLES MD [facility] WOUNDCARE [id number] 07/15/2018 09:45:00 23:59:59 CLS Outpatient LIZZETTE OLSON PATIENT COORDINATOR [facility] RAD 51107 [id number] 07/15/2018 08:08:00 23:59:59 CLS Outpatient LIZZETTE OLSON PATIENT COORDINATOR [facility] WOUNDCARE [id number] 06/02/2018 07:45:00 07:45:00 CAN Preadmit ADITYA APODACA PATIENT COORDINATOR [facility] RAD PULMONARY NODUL E,CHRONIC BRONCHITIS [id number] 05/23/2018 10:15:00 10:15:00 CAN Preadmit ADITYA APODACA PATIENT COORDINATOR [facility] RAD J20.9 [id number] 12/23/2017 08:15:00 018 23:59:59 CLS Preadmit ADITYA APODACA PATIENT COORDINATOR [facility] PULM J84.9,R09.02,R0 6.00,Z72.0 [id number] 11/07/2017 09:00:00 018 00:01:00 DIS Outpatient ADITYA APODACA PATIENT COORDINATOR [facility] PULM J84.9,R09.02,R0 6.00,Z72.0 [id number] 10/17/2017 10:23:00 018 14:26:00 DIS Emergency ILIA WALLIS, NERIS Jeffery [facility] ER DIZZY [id number] 10/14/2017 08:28:00 018 23:59:59 CLS Outpatient ADITYA APODACA PATIENT COORDINATOR [facility] RT J84.9 ILD [id number] 10/07/2017 09:58:00 018 23:59:59 CLS Preadmit ADITYA APODACA PATIENT COORDINATOR [facility] SLEEP G47.33 RENAE [id number] 08/27/2017 10:54:00 017 23:59:59 CLS Outpatient ADITYA APODACA APRN [facility] LAB J20.9 J84.9 R06 .00 M35.00 [id number] 08/05/2017 19:10:00 017 16:28:00 DIS Inpatient HORACE WALLIS, NINFA Pace [facility] 4TH PNEUMONIA CAP W SEPTIC TW,DEHYDRATION VOLUME DEPLE [id number] 07/15/2017 10:22:00 017 13:59:00 DIS Emergency IVÁN GRACE APRN [facility] ER SOB [id number] 07/03/2017 15:44:00 017 17:59:00 DIS Emergency LILIBETH DURAN MD [facility] ER ALLERGIC REACTI ON TO MEDICATION [id number] 07/03/2017 02:29:00 06:18:00 DIS Emergency JOSE CARLOS WALLIS, DALE Parker [facility] ER RT SIDE PAIN [id number] 06/25/2017 13:45:00 23:59:59 CLS Preadmit TATYANA CHAPPELL [facility] RAD RLQ ABD PAIN [id number] 05/09/2017 14:26:00 23:59:59 CLS Outpatient BRENDON PLUNKETT DO [facility] RAD PULMONARY NODULE [id number] 02/07/2017 13:51:00 23:59:59 CLS Outpatient TATYANA CHAPPELL SERVICE DISMANTLER [facility] RAD M79.622 LEFT UPPER ARM PAIN [id number] 01/26/2017 10:49:00 23:59:59 CLS Outpatient KIMBER WORRELL MD [facility] RAD RTC PARTIAL LEFT M75.1 12 [id number] 11/08/2016 16:25:00 017 20:15:00 DIS Emergency IVÁN GRACE PATIENT COORDINATOR [facility] ER STROKE SYMPTOMS [id number] 11/05/2016 12:59:00 23:59:59 CLS Outpatient ADITYA APODACA APRN [facility] RAD SOB,PULMONARY NODULE,INTERSTITIAL LUNG DISEASE [id number] 09/24/2016 10:39:00 13:42:00 DIS Emergency RONA ENRIQUE [facility] [facility] COUGH, CONGESTION, POSS IBLE PNEUMONIA [id number] 07/19/2016 10:30:00 11:10:00 DIS Outpatient KIMBER WORRELL MD Via [facility] REHAB S/P R SHLD SCOPE, YANICK P TENOTOMY AND ACROMIOPLASTY [id number] 08/06/2016 12:53:00 23:59:59 CLS Outpatient ADITYA APODACA APRN [facility] RAD DYSPNEA,SOB,TOB ACCO USER [id number] 06/27/2016 07:25:00 12:50:00 DIS Outpatient KIMBER WORRELL MD [facility] RIGHT PARTIAL TORN ROT ATOR CUFF [id number] 06/21/2016 10:42:00 11:15:00 DIS Outpatient KIMBER WORRELL MD [facility] PREOP RIGHT PARTIAL TORN ROT ATOR CUFF [id number] 06/13/2016 11:42:00 23:59:59 CLS Outpatient BRENDON PLUNKETT DO [facility] RT DYSPNEA AND RESPIRATORY ABNORMALITIES [id number] 05/29/2016 07:59:00 23:59:59 CLS Outpatient KIMBER WORRELL MD [facility] RAD ROTATOR CUFF TEAR [id number] 03/13/2016 18:53:00 10:20:00 DIS Inpatient NINFA VU MD [facility] ICU HYPOTENSION,MEDICATION SIDE EFFECT [id number] 01/02/2016 08:07:00 23:59:59 CLS Outpatient TATYANA CHAPPELL [facility] RAD PAIN IN RT UPPER EXT [id number] 10/24/2015 09:45:00 14:15:00 DIS Inpatient JUSTICE VARGAS MD [facility] CSD CHEST PAIN [id number] 09/12/2015 07:30:00 23:59:59 CLS Outpatient NONI CAMPBELL MD [facility] RAD RIGHT UPPER QUADRANT PA IN [id number] 07/22/2015 08:49:00 12:20:00 DIS Outpatient NONI CAMPBELL MD [facility] HX OF POLYPS, BLOOD IN STOOL, ABD. PAIN [id number] 07/19/2015 05:46:00 23:59:59 CLS Outpatient NONI CAMPBELL MD [facility] PREOP HX COLON POLYPS, BLOOD IN STOOL, ABD. PAIN [id number] 07/12/2015 19:25:00 015 00:08:00 DIS Emergency LILIBETH DURAN MD [facility] ER ABD PAIN/BLOATI NG [id number] 06/01/2015 20:23:00 015 21:54:00 DIS Emergency TODD DAWSON [facility] ER BACK,NECK PAIN [id number] 02/21/2015 13:30:00 015 23:59:59 CLS Preadmit TATYANA CHAPPELL Gray SERVICE DISMANTLER [facility] CARD CP [id number] 11/22/2014 13:10:00 015 00:01:00 DIS Outpatient JOANGrayTATYANA Gray SERVICE DISMANTLER [facility] CARD CP [id number] 01/30/2015 11:25:00 015 13:37:00 DIS Emergency IVÁN GRACE APRN [facility] ER DIARRHEA/NAUSEA [id number] 01/21/2015 08:30:00 015 23:59:59 CLS Preadmit EDGAR PRIEST MD [facility] CARD SIJD [id number] 01/02/2015 22:26:00 015 02:01:00 DIS Emergency LILIBETH DURAN MD [facility] ER NAUSEA;SOA;LIGH T HEADED [id number] 12/28/2014 12:48:00 015 23:59:59 CLS Outpatient SALLIE LANGE K [facility] CARD CAD,CP,HLP, HTN [id number] 12/16/2014 09:11:00 015 23:59:59 CLS Outpatient MADLTATYANA Gray SERVICE DISMANTLER [facility] RAD BACK PAIN [id number] 12/03/2014 20:57:00 015 22:24:00 DIS Emergency IVÁN GRACE APRN [facility] ER R HIP PAIN [id number] 04/26/2014 11:01:00 23:59:59 CLS Outpatient BRENDON PLUNKETT DO [facility] RAD LUNG DISEASE,RENAE [id number] 04/10/2014 00:25:00 15:40:00 DIS Inpatient TESSA MCKEON MD [facility] ICU INTENTIONAL DRUG OVERDO SE;SUICIDE ATTEMPT [id number] 03/26/2014 09:48:00 23:59:59 CLS Outpatient JULIET MACE DO [facility] RAD TRANSIENT CONFUSION [id number] 03/11/2014 21:34:00 00:08:00 DIS Emergency JULIET MACE DO [facility] ER CONFUSION [id number] 02/25/2014 08:30:00 10:01:00 DIS Outpatient TATYANA CHAPPELL [facility] WOUNDCARE DIABETE RIGHT FOOT ULCE R [id number] 01/20/2014 11:31:00 14:27:00 DIS Outpatient BRENDON PLUNKETT DO [facility] SDC LUNG NODULE [id number] 01/13/2014 07:30:00 23:59:59 CLS Outpatient BRENDON PLUNKETT DO [facility] PREOP LUNG NODULE [id number] 12/15/2013 17:39:00 19:42:00 DIS Emergency TODD DAWSON [facility] ER BILAT FEET SWOLLEN TOE S [id number] 12/11/2013 17:54:00 19:11:00 DIS Emergency ALEXI CARVALHO MD [facility] ER HIGH BLOOD SUGAR, BLURR Y VISION [id number] 12/03/2013 11:16:00 23:59:59 CLS Outpatient BRENDON PLUNKETT DO [facility] PREOP NODULE [id number] 11/20/2013 08:05:00 23:59:59 CLS Outpatient BRENDON PLUNKETT DO [facility] PREOP INTERSTITIAL LUNG DISEA SE; RIGHT LUNG NODULE [id number] 11/19/2013 12:54:00 23:59:59 CLS Outpatient BRENDON PLUNKETT DO [facility] RT LUNG DISEASE,RENAE [id number] 11/17/2013 10:11:00 23:59:59 CLS Outpatient JUSTICE VARGAS MD [facility] LAB CP,HTN,LLBBB [id number] 11/16/2013 21:09:00 06:25:00 DIS Outpatient BRENDON PLUNKETT DO [facility] SLEEP RENAE,LUNG DISEASE [id number] 11/13/2013 12:24:00 23:59:59 CLS Outpatient BRENDON PLUNKETT DO [facility] RAD LUNG DISEASE,RENAE,IDDM,LBBB,PALPITATIONS [id number] 10/05/2013 00:45:00 15:00:00 DIS Inpatient NELI SIMPSON DO [facility] CSD CHEST PAIN;DIABETES;WARREN KOCYTOSIS [id number] 06/30/2013 09:37:00 23:59:59 CLS Outpatient MICHELLE WINTER MD [facility] RAD SOB,ILD [id number] 06/07/2013 05:13:00 07:17:00 DIS Emergency RODRIJULIET Mendoza DO Vi [facility] ER ABD PAIN [id number] 05/31/2013 14:26:00 16:35:00 DIS Inpatient PATY LATHAM MD [facility] ICU NARCOTIC WITHDR AWL [id number] 05/07/2013 09:02:00 23:59:59 CLS Outpatient PATY LATHAM MD [facility] CARD SOB,HX OF LT BB B,CYSTOLIC DYSFUNCTION [id number] 04/02/2013 16:49:00 013 14:45:00 DIS Inpatient MIKE WALLIS, TESSA Zhang [facility] 4TH HYPOXIA,SOB [id number] 04/01/2013 20:00:00 013 05:30:00 DIS Outpatient NOA WALLIS, PATY Russell [facility] SLEEP SNORING,CHOKING/GASPING,HTN,MOOD DISORDER,OA, [id number] 02/26/2013 06:39:00 013 08:45:00 DIS Emergency KLAUS WALLIS, RONA Hernandez [facility] ER SHAKING,ARM PAIN,DRUG W ITHDRAWL [id number] 02/25/2013 22:28:00 013 02:53:00 DIS Emergency RODRI LAGUNA, JULIET Hernandez [facility] ER L EXTREMITY PAIN [id number] 02/04/2013 09:24:00 013 16:00:00 DIS Outpatient NOA WALLIS, PATY Russell [facility] RAD CERVICAL REGION DISORDER,SOB,LEUKOCYTOSIS [id number] 09/21/2019 10:15:00 P EN Preadmit ADITYA APODACA APRN [facility] RAD COPD [id number] 12/19/2018 19:03:00 Document Registration [id number] 10/23/2018 08:45:00 Document Registration [id number] 07/03/2017 18:01:00 Document Registration [id number] 07/03/2017 18:01:00 Document Registration [id number] 12/03/2014 11:18:00 Document Registration [id number] 12/16/2012 07:55:00 Document Registration [id number] 08/13/2012 19:15:00 Document Registration [id number] 08/05/2012 11:50:00 Document Registration [id number] 10/24/2010 16:40:00 Document Registration [id number] 12/26/2007 11:03:00 Document Registration
== END 2019-08-17 16:32 | disposition short-term general hospital (02) ==
LOC: EDUNIT# 13:57 → ER 13:58
DX: J18.9 Pneumonia, unspecified organism (principal); R94.2 Abnormal results of pulmonary function studies; R04.2 Hemoptysis; J44.9 Chronic obstructive pulmonary disease, unspecified; I25.10 Atherosclerotic heart disease of native coronary artery without angina pectoris; I10 Essential (primary) hypertension; E78.00 Pure hypercholesterolemia, unspecified; E11.40 Type 2 diabetes mellitus with diabetic neuropathy, unspecified; K21.9 Gastro-esophageal reflux disease without esophagitis; M79.7 Fibromyalgia; F41.9 Anxiety disorder, unspecified; F32.9 Major depressive disorder, single episode, unspecified; E11.621 Type 2 diabetes mellitus with foot ulcer; E11.69 Type 2 diabetes mellitus with other specified complication; M86.9 Osteomyelitis, unspecified; Z86.010 Personal history of colon polyps; Z86.73 Personal history of transient ischemic attack (TIA), and cerebral infarction without residual deficits; Z89.432 Acquired absence of left foot; Z99.81 Dependence on supplemental oxygen; Z88.1 Allergy status to other antibiotic agents; Z79.4 Long term (current) use of insulin; Z87.891 Personal history of nicotine dependence; Z80.0 Family history of malignant neoplasm of digestive organs
CPT/HCPCS: 36415; 80053; 83605; 85007; 85027; 85610; 85730; 96361; 96365

== ENCOUNTER → 2019-08-17 | Outpatient (CLI) | payer MEDICARE ==
[~2019-08-17] MED LIST changes: +HOLD METFORMIN - RECEIVED CONTRAST 20 ML VIAL IV SCH; +IOHEXOL 350 MG/ML 100 ML (OMNIPAQUE 350) VIAL IV ONE; +NS 100 ML (IVPB) BAG IV ONE
[2019-08-17 07:30] LABS: BUN/CREATININE RATIO 15; CREATININE SERUM 0.93 MG/DL (0.60-1.30); GFR ESTIMATED > 60
--- NOTE | 2019-08-17 08:34 | Diagnostic Imaging Report ---
PROCEDURE: CT chest with contrast only. TECHNIQUE: Multiple contiguous axial images were obtained through the chest after administration of intravenous contrast. Auto Exposure Controls were utilized during the CT exam to meet ALARA standards for radiation dose reduction. INDICATION: Abnormal x-ray of the chest; COPD Comparison is made to study of 02/24/2019. There has been development of an approximately 2.8 x 2.6 cm irregular spiculated cavitary lesion in the upper lobe of the left lung, laterally. This is at the site of previously identified thin-walled air cyst. Otherwise, there is mild background centrilobular emphysema throughout the lungs. Nodularity along the inferior aspect of the left major fissure is again noted. In addition, there is stable subpleural nodule in the medial right lower lobe near the costophrenic sulcus. There is also scarring in the lingula which is unchanged. Coronary artery calcifications are noted. Mildly prominent mediastinal lymph nodes have remained stable. There is no significant pleural or pericardial fluid. Upper abdominal sections reveal no new abnormality. IMPRESSION: Development of thick irregular wall within cavitary lesion of the upper lobe of the left lung. Given the presence of air cysts in this region on the previous study this could be due to superimposed infection, however, spiculated margins have an aggressive appearance and clinical correlation is recommended. Consideration could be given to biopsy for histologic analysis. Otherwise background COPD is stable to previous study without additional new abnormality. Dictated by: Dictated on workstation # [id number]
== END ==
LOC: RAD 07:05
PROVIDERS: ATTEND Nurse Practitioner Family
DX: J06.9 Acute upper respiratory infection, unspecified (principal); J44.9 Chronic obstructive pulmonary disease, unspecified; R09.02 Hypoxemia; F17.201 Nicotine dependence, unspecified, in remission
CPT/HCPCS: 36415; 71260; 82565; 84520

== ENCOUNTER → 2019-08-27 | Outpatient (CLI) | payer MEDICARE ==
--- NOTE | 2019-08-27 11:58 | Diagnostic Imaging Report ---
INDICATION: ABNORMAL FINDING OF LUNG FIELD COPD ANG DISEASE HYPOXEMIA. COMPARISON: CT dated 08/17/2019 and chest radiograph dated 08/10/2019. FINDINGS: Frontal and lateral radiographic views of the chest were obtained and again demonstrate the thick-walled central cavitary lesion within the lateral margins of the left upper lobe. It measures approximately 1.9 cm on today's exam. Differences in measurements may be related to projection. There is no new focal consolidation, large effusion, nor pneumothorax. Cardiac silhouette and pulmonary vasculature are within normal limits. Osseous structures show no gross acute abnormalities. Left upper extremity PICC line is again seen with tip in the axillary vein. IMPRESSION: 1. Persistent thick-walled cavitary lesion of the lateral left upper lobe. This should be considered product representative of pulmonary neoplasm until proven otherwise. Biopsy is recommended. Dictated by: Dictated on workstation # [id number]
== END ==
LOC: RAD 11:18
PROVIDERS: ATTEND Nurse Practitioner Family
DX: J44.9 Chronic obstructive pulmonary disease, unspecified (principal); R91.1 Solitary pulmonary nodule; J84.9 Interstitial pulmonary disease, unspecified
CPT/HCPCS: 71046

== ENCOUNTER → 2019-09-17 | Outpatient (CLI) | payer MEDICARE ==
[~2019-09-17] MED LIST changes: +HOLD METFORMIN - RECEIVED CONTRAST 20 ML VIAL IV SCH; +IOHEXOL 350 MG/ML 100 ML (OMNIPAQUE 350) VIAL IV ONE; +NS 100 ML (IVPB) BAG IV ONE
--- NOTE | 2019-09-17 08:58 | Diagnostic Imaging Report ---
PROCEDURE: CT chest with contrast only. TECHNIQUE: Multiple contiguous axial images were obtained through the chest after administration of intravenous contrast. Auto Exposure Controls were utilized during the CT exam to meet ALARA standards for radiation dose reduction. INDICATION: COPD. Correlation is made with the prior CT chest from 08/17/2019 as well as 02/24/2019 and 07/29/2018. The spiculated cavitary lesion left upper lobe is again noted measuring approximately 2.6 cm AP compared with 2.5 cm on the prior exam. Areas of nodularity along the major fissure on the left appear stable. Minimal nodularity left lower lobe laterally is more prominent than prior exam. There is some minimal nodularity posteriorly as well, slightly more prominent. Tiny nodule posterior medial right lower lobe is stable. There are centrilobular emphysematous changes. No pericardial or pleural fluid is detected. No axillary lymphadenopathy is seen. Left upper extremity PICC line has tip within the SVC. Mediastinal lymph nodes appear to be stable. There are some mild prominent hilar lymph nodes bilaterally, similar to prior exam. Upper abdomen is unremarkable. IMPRESSION: 1. Spiculated cavitary lesion left upper lobe, stable when compared with approximately one month earlier. While this again may be secondary to an infectious/inflammatory process, neoplasm cannot be entirely excluded. There are some indeterminate prominent mediastinal and hilar lymph nodes. 2. Areas of nodularity, as described appearing slightly more prominent than prior exam. This may be on infectious/inflammatory basis. Continued follow-up is recommended. Dictated by: Dictated on workstation # [id number]
== END ==
LOC: RAD 07:34
PROVIDERS: ATTEND Nurse Practitioner Family
DX: J44.9 Chronic obstructive pulmonary disease, unspecified (principal); J84.9 Interstitial pulmonary disease, unspecified; R91.8 Other nonspecific abnormal finding of lung field; R91.1 Solitary pulmonary nodule
CPT/HCPCS: 71260

== ENCOUNTER 2019-09-18 13:05 | Outpatient (RCR) | payer MEDICARE ==
[~2019-09-18] VITALS: Ht 185.5 cm; Wt 108.4 kg
[~2019-09-18 13:05] MED LIST changes: -CETI10TA20 PO; +CETI10TA21 PO; -FAMC500T17 PO; +FAMC500T2 PO; -GLIM1TAB PO; +GLIM1TAB4 PO; -HOLD METFORMIN - RECEIVED CONTRAST 20 ML VIAL IV SCH; -IOHEXOL 350 MG/ML 100 ML (OMNIPAQUE 350) VIAL IV ONE; -LINE600T15 PO; +LNZ600T PO; -METO-370 PO; +METO50TA7 PO; -MINO100C2 PO; +MINO100C5 PO; -MONT10TA24 PO; +MONT10TA26 PO; -NS 100 ML (IVPB) BAG IV ONE
[2019-09-18 13:40] VITALS: BP 129/69
[2019-09-18] MEDS ORDERED: AMIKACIN IV SCH (14:00)
[2019-09-18] MEDS ORDERED: NS IV SCH (14:00)
[2019-09-18 16:12] LABS: BASOPHILS # (AUTO) 0.1 10^3/uL (0.0-0.1); BASOPHILS % (AUTO) 1 % (0-10); EOSINOPHILS # (AUTO) 0.3 10^3/uL (0.0-0.3); EOSINOPHILS % (AUTO) 3 % (0-10); HEMATOCRIT 39 % (40-54); HEMOGLOBIN 13.3 G/DL (13.3-17.7); LYMPHOCYTES # (AUTO) 2.8 X 10^3 (1.0-4.0); LYMPHOCYTES % (AUTO) 28 % (12-44); MEAN CORPUSCULAR HEMOGLOBIN 28 PG (25-34); MEAN CORPUSCULAR HGB CONC 34 G/DL (32-36); MEAN CORPUSCULAR VOLUME 83 FL (80-99); MEAN PLATELET VOLUME 11.2 FL (7.4-10.4); MONOCYTES # (AUTO) 0.7 X 10^3 (0.0-1.0); MONOCYTES % (AUTO) 7 % (0-12); NEUTROPHILS # (AUTO) 6.2 X 10^3 (1.8-7.8); NEUTROPHILS % (AUTO) 62 % (42-75); PLATELET COUNT 193 10^3/uL (130-400); RED CELL DISTRIBUTION WIDTH 14.6 % (10.0-14.5); WHITE BLOOD COUNT 10.1 10^3/uL (4.3-11.0)
[2019-09-18 16:27] LABS: BUN/CREATININE RATIO 12; CALCIUM 8.7 MG/DL (8.5-10.1); CARBON DIOXIDE 19 MMOL/L (21-32); CHLORIDE 102 MMOL/L (98-107); CREATININE SERUM 0.76 MG/DL (0.60-1.30); GFR ESTIMATED > 60; GLUCOSE 272 MG/DL (70-105); POTASSIUM 4.2 MMOL/L (3.6-5.0); SODIUM 132 MMOL/L (135-145)
[2019-09-19 12:13] VITALS: BP 155/78
[2019-09-19] MEDS ORDERED: [UNRECOGNIZED DRUG - REMARK] XX NR (13:00)
[2019-09-19] MEDS: NS IV SCH (13:17)
[2019-09-19] MEDS: AMIKACIN IV SCH (13:17)
[2019-09-20] MEDS: NS IV SCH (12:28)
[2019-09-20] MEDS: AMIKACIN IV SCH (12:28)
[2019-09-20 12:31] VITALS: BP 148/80
[2019-09-22] MEDS ORDERED: NS IV SCH (12:00)
[2019-09-22] MEDS ORDERED: AMIKACIN IV SCH (12:00)
== END 2019-12-17 | disposition home or self-care (01) ==
LOC: SDC 13:05
PROVIDERS: ATTEND Internal Medicine Critical Care Medicine
DX: A31.2 Disseminated mycobacterium avium-intracellulare complex (DMAC) (principal); R06.00 Dyspnea, unspecified; R09.02 Hypoxemia
CPT/HCPCS: 36415; 80048; 80150; 85025; 96365; 96366

== ENCOUNTER 2019-09-23 09:40 | Outpatient (CLI) | payer MEDICARE ==
[2019-09-23] VITALS (10 sets, daily range): BP systolic 117–164; BP diastolic 69–91
[~2019-09-23 09:40] MED LIST changes: +CETI10TA20 PO; -CETI10TA21 PO; +FAMC500T17 PO; -FAMC500T2 PO; +GLIM1TAB PO; -GLIM1TAB4 PO; +LINE600T15 PO; -LNZ600T PO; +METO-370 PO; -METO50TA7 PO; +MINO100C2 PO; -MINO100C5 PO; +MONT10TA24 PO; -MONT10TA26 PO
[2019-09-23 10:25] LABS: HEMOGLOBIN 14.8 G/DL (13.3-17.7); MEAN PLATELET VOLUME 11.2 FL (7.4-10.4); RED CELL DISTRIBUTION WIDTH 14.5 % (10.0-14.5); WHITE BLOOD COUNT 12.2 10^3/uL (4.3-11.0)
[2019-09-23 10:42] LABS: PROTHROMBIN TIME PATIENT 13.8 SEC (12.2-14.7)
[2019-09-23] MEDS ORDERED: NS IV 1000 ML 1,000 ML IV STA (11:10)
[2019-09-23] MEDS ORDERED: fentaNYL INJECTION 100 MCG/2 ML AMP IVP ONE (11:15)
[2019-09-23] MEDS ORDERED: LIDOCAINE 1% INJ 20 ML 20 ML VIAL INJ ONE (11:15)
[2019-09-23] MEDS ORDERED: MIDAZOLAM 2 MG/2 ML (VERSED) VIAL IVP ONE (11:15)
[2019-09-23] MEDS ORDERED: HYDROcodone/APAP 5 MG/325 MG (LORTAB) TAB PO PRN (13:00)
--- NOTE | 2019-09-23 13:24 | Pre-Op Note & Conscious Sedat ---
Pre-Operative Progress Note H&P Reviewed The H&P was reviewed, patient examined and no changes noted. Date H&P Reviewed: Sep 23, 2019 Time H&P Reviewed: 10:00 Pre-Op Diagnosis: Lung mass Conscious Sedation Pre-Proced Time 10:00 ASA Score 2 For ASA 3 and 4: Consider anesthesia and medical clearance. Also, for patients with a history of failed moderate sedation consider anesthesia. Airway Lungs Heart ASA score ASA 1: a normal healthy patient ASA 2: a patient with a mild systemic disease (mid diabetes, controlled hypertension, obesity ASA 3: a patient with a severe systemic disease that limits activity (angina, COPD, prior Myocardial infarction) ASA 4: a patient with an incapacitating disease that is a constant threat to life (CHF, renal failure) ASA 5: a moribund patient not expected to survive 24 hrs. (ruptured aneurysm) ASA 6: a declared brain- patient whose organs are being harvested. For emergent operations, add the letter E after the classification Mallampati Classification Grade 2 Sedation Plan Analgesia, Amnesia, Plan communicated to team members, Discussed options with patient/fam, Discussed risks with patient/fam The patient is an appropriate candidate to undergo the planned procedure, sedation, and anesthesia. The patient immediately re-assessed prior to indication. MEGAN HEREDIA MD Sep 23, 2019 13:24
--- NOTE | 2019-09-23 13:43 | Diagnostic Imaging Report ---
TECHNIQUE: All CT scans use one or more of the following dose optimizing techniques: automated exposure control, MA and/or KvP adjustment based on a patient size and exam type, or iterative reconstruction. INDICATION: Left lung mass. Patient presents for CT-guided biopsy. FINDINGS: Patient was brought to the CT suite, placed on table in the supine position. Axial imaging through the chest was performed to evaluate appropriate entry site. The skin of the left chest was then prepped and draped in the usual sterile fashion. Procedure was performed utilizing conscious sedation with radiology nursing and constant patient monitoring. Patient was administered a total of 100 mcg of fentanyl intravenously and 1 mg of Versed intravenously. Total procedure time is 11 minutes. Left upper anterior chest was anesthetized using a small amount of 1% lidocaine. 20-gauge coaxial Temno needle was advanced and placed with its tip at the thicker portion of the cavitary lesion laterally within the left upper lobe. A total of approximately four core biopsies were obtained. Needle was removed during the injection of a blood patch. Follow-up imaging shows no complicating feature. No pneumothorax is detected. Patient tolerated the procedure well and left the department in stable condition. IMPRESSION: CT-guided left upper lobe cavitary mass biopsy utilizing conscious sedation. Pathology results are currently pending. Dictated by: Dictated on workstation # [id number]
--- NOTE | 2019-09-23 14:09 | Diagnostic Imaging Report ---
INDICATION: Left lung biopsy. TIME OF EXAM: 02:00 p.m. FINDINGS: Expiratory chest radiograph was performed. No pneumothorax is identified, status post left lung biopsy. Cavitary lesion in left upper lobe is again noted. There is no effusion. IMPRESSION: No evidence of pneumothorax. Dictated by: Dictated on workstation # [id number]
== END 2019-09-23 14:45 | disposition home or self-care (01) ==
LOC: RAD 09:40 → SDC 12:43 → RAD 14:45
PROVIDERS: ATTEND Nurse Practitioner Family
DX: A31.2 Disseminated mycobacterium avium-intracellulare complex (DMAC) (principal); R20.0 Anesthesia of skin; R41.3 Other amnesia; R91.8 Other nonspecific abnormal finding of lung field
CPT/HCPCS: 36415; 71045; 77012; 85027; 85610; 85730; 99156

== ENCOUNTER → 2019-10-06 | Outpatient (CLI) | payer MEDICARE ==
[~2019-10-06] MED LIST changes: -GLIM1TAB PO; +GLIM1TAB2 PO; -METO-370 PO; +METO50TA7 PO; -MINO100C2 PO; +MINO100C5 PO
--- NOTE | 2019-10-06 09:21 | Diagnostic Imaging Report ---
INDICATION: Osteomyelitis. COMPARISON: 03/12/2019. TECHNIQUE: 3 radiographs of left foot dated 10/06/2019. FINDINGS: Interval amputation at the level of the MCP joints. The 3rd metatarsal head and neck now demonstrates an irregular appearance with a mixed lucent and sclerotic appearance. Mild periosteal reaction is also seen about this location. The other metatarsal heads appear relatively similar to the prior examination. New periosteal reaction callus formation is noted involving the 2nd metatarsal shaft distally. No acute fracture or dislocation. Moderate posterior and small plantar calcaneal enthesophytes. The Lisfranc joint does not appear well aligned on the oblique radiograph. IMPRESSION: Abnormal appearance of the mid to distal 3rd metatarsal is concerning for osteomyelitis, which could possibly be chronic or acute in nature. New periosteal reaction associated with the distal 2nd metatarsal shaft, which could relate to a healing fracture or related to reaction from chronic underlying osteomyelitis. Lisfranc joint does not appear as well aligned on the oblique radiograph. This could be secondary to the interval amputation, though underlying injury to the Lisfranc joint not excluded. Additional findings as above. Dictated by: Dictated on workstation # [id number]
== END ==
LOC: RAD 08:50
PROVIDERS: ATTEND Surgery
DX: M86.9 Osteomyelitis, unspecified (principal)
CPT/HCPCS: 73630

== ENCOUNTER → 2019-10-13 | Outpatient (CLI) | payer MEDICARE ==
--- NOTE | 2019-10-13 13:52 | Diagnostic Imaging Report ---
INDICATION: Squamous cell carcinoma of the left lung, initial staging. TECHNIQUE: Serum blood glucose level at the time of injection was 159 mg/dL. The patient was administered 12.2 mCi F-18 FDG intravenously in the right forearm and PET imaging was performed from the top of the skull to mid thighs. Noncontrast CT was also performed for attenuation correction and anatomic correlation. COMPARISON: Correlation is made with recent CT chest study from 09/17/2019 as well as prior PET/CT study from 07/29/2018. FINDINGS: There is symmetric activity throughout the brain. Soft tissues of the neck are unremarkable. The spiculated cavitary mass left upper lobe previously biopsied is hypermetabolic with an SUV max of approximately 5.2. No definite mediastinal or hilar hypermetabolism is seen. No other pulmonary parenchymal abnormal foci are seen. Normal physiologic activity within the gastrointestinal and genitourinary tracts of the abdomen and pelvis is noted. No abnormal foci of hypermetabolism is detected. IMPRESSION: Hypermetabolic cavitary mass left upper lobe corresponding to recently biopsy-proven squamous cell carcinoma. No mediastinal or hilar hypermetabolism is seen. No findings to suggest metastatic disease are detected. Dictated by: Dictated on workstation # [id number]
== END ==
LOC: RAD 10-06 08:45
PROVIDERS: ATTEND Nurse Practitioner Family
DX: C34.92 Malignant neoplasm of unspecified part of left bronchus or lung (principal); J44.9 Chronic obstructive pulmonary disease, unspecified; R91.8 Other nonspecific abnormal finding of lung field; J84.9 Interstitial pulmonary disease, unspecified; R94.2 Abnormal results of pulmonary function studies

== ENCOUNTER 2019-10-15 09:46 | Outpatient (RCR) | payer MEDICARE ==
[~2019-10-15 09:46] MED LIST changes: -CETI10TA20 PO; +CETI10TA21 PO; -FAMC500T17 PO; +FAMC500T2 PO; -GLIM1TAB2 PO; +GLIM1TAB4 PO; -LINE600T15 PO; +LNZ600T PO; -MONT10TA24 PO; +MONT10TA26 PO
[2020-01-01] MEDS ORDERED: ATOR40TA70 PO (10:04)
[2020-01-01] MEDS ORDERED: LORA-404 PO (10:04)
[2020-01-01] MEDS ORDERED: NALO4SPR NS (10:04)
[2020-01-01] MEDS ORDERED: ASCO500C17 PO (10:04)
[2020-01-01] MEDS ORDERED: VANC2PIG IV (10:04)
[2020-01-01] MEDS ORDERED: MULT-406 PO (10:04)
[2020-01-01] MEDS ORDERED: HYDR-4342 PO (12:13)
== END 2020-01-06 | disposition home or self-care (01) ==
LOC: ONC 09:46
PROVIDERS: ATTEND Internal Medicine Hematology & Oncology
DX: C34.92 Malignant neoplasm of unspecified part of left bronchus or lung (principal); J44.9 Chronic obstructive pulmonary disease, unspecified
CPT/HCPCS: 99213; 99214

== ENCOUNTER → 2019-12-11 | Outpatient (CLI) | payer MEDICARE ==
[2019-12-11 14:13] LABS: HEMOGLOBIN 12.6 G/DL (13.3-17.7); MEAN PLATELET VOLUME 10.4 FL (7.4-10.4); RED CELL DISTRIBUTION WIDTH 14.5 % (10.0-14.5); WHITE BLOOD COUNT 7.6 10^3/uL (4.3-11.0)
[2019-12-11 14:32] LABS: ALANINE AMINOTRANSFERASE 15 U/L (0-55); ALBUMIN 4.2 GM/DL (3.2-4.5); ALKALINE PHOSPHATASE 88 U/L (40-136); BILIRUBIN,TOTAL 0.4 MG/DL (0.1-1.0); BUN/CREATININE RATIO 10; CALCIUM 8.9 MG/DL (8.5-10.1); CARBON DIOXIDE 18 MMOL/L (21-32); CHLORIDE 98 MMOL/L (98-107); CREATININE SERUM 1.18 MG/DL (0.60-1.30); GFR ESTIMATED > 60; POTASSIUM 4.2 MMOL/L (3.6-5.0); SODIUM 128 MMOL/L (135-145); TOTAL PROTEIN 7.2 GM/DL (6.4-8.2)
[2019-12-11 14:50] LABS: GLUCOSE 474 MG/DL (70-105)
--- NOTE | 2019-12-11 14:50 | Diagnostic Imaging Report ---
INDICATION: Foot pain, osteomyelitis. COMPARISON: 10/06/2019 TECHNIQUE: Three radiographs of the left foot dated 12/11/2019 FINDINGS: Amputation at the level of the MTP joints is again noted. No acute fracture or dislocation. Callus formation associated with the distal 3rd metatarsal is noted, appearing similar to the prior examination. Minimal periosteal reaction along the medial aspect of the 2nd metatarsal neck is again identified and stable. No new focal destructive osseous process. No suspicious radiopaque foreign body. Calcaneal enthesophytes are again noted. IMPRESSION: 1. Similar-appearing examination without evidence of acute osseous abnormality. 2. 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 3. If there remains clinical concern for underlying osteomyelitis, then follow up radiographs in 10-14 days. Dictated by: Dictated on workstation # [id number]
== END ==
LOC: RAD 13:57
PROVIDERS: ATTEND Nurse Practitioner Family
DX: M79.672 Pain in left foot (principal)
CPT/HCPCS: 36415; 73630; 80053; 85027

== ENCOUNTER 2019-12-31 10:45 | Outpatient (CLI) | payer MEDICARE, OTHER ==
[~2019-12-31] VITALS: Ht 180.3 cm; Wt 108.4 kg
[~2019-12-31 10:45] MED LIST changes: -ASCO500C17 PO; -ATOR40TA70 PO; -HYDR-4342 PO; -LORA-404 PO; -MULT-406 PO; -NALO4SPR NS; -VANC2PIG IV
[2019-12-31] MEDS ORDERED: ALTEPLASE 2 MG (CATHFLO) ONE (10:48)
[2019-12-31] MEDS ORDERED: WATER (STERILE) FOR INJECTION 10 ML ONE (10:49)
[2019-12-31 11:00] VITALS: BP 146/98
[2019-12-31] MEDS ORDERED: ALTEPLASE 2 MG (CATHFLO) IV ONE (11:30)
[2019-12-31 13:39] VITALS: BP 146/98
[2020-01-01] MEDS ORDERED: ASCO500C17 PO (10:04)
[2020-01-01] MEDS ORDERED: VANC2PIG IV (10:04)
[2020-01-01] MEDS ORDERED: ATOR40TA70 PO (10:04)
[2020-01-01] MEDS ORDERED: MULT-406 PO (10:04)
[2020-01-01] MEDS ORDERED: LORA-404 PO (10:04)
[2020-01-01] MEDS ORDERED: NALO4SPR NS (10:04)
[2020-01-01] MEDS ORDERED: HYDR-4342 PO (12:13)
== END 2019-12-31 13:39 | disposition home or self-care (01) ==
LOC: SDC 10:45
PROVIDERS: ATTEND Surgery
DX: Z45.2 Encounter for adjustment and management of vascular access device (principal)
CPT/HCPCS: 76937; 96374

== ENCOUNTER → 2019-12-31 | Outpatient (CLI) | payer MEDICARE ==
[~2019-12-31] MED LIST changes: +ASCO500C17 PO; +ATOR40TA70 PO; +HYDR-4342 PO; +LORA-404 PO; +MULT-406 PO; +NALO4SPR NS; +VANC2PIG IV
== END ==
LOC: PREOP 13:56
PROVIDERS: ATTEND Surgery
DX: Z01.818 Encounter for other preprocedural examination (principal)

== ENCOUNTER 2020-01-01 09:15 | Day surgery (SDC) | payer MEDICARE ==
[2020-01-01] VITALS (8 sets, daily range): BP systolic 108–157; BP diastolic 76–88
[~2020-01-01] VITALS: Ht 187.9 cm; Wt 104.5 kg
[2020-01-01] MEDS ORDERED: VANCOMYCIN INJECTION 2,000 MG in NS IV 500 ML 500 ML IV ONE (09:30)
[2020-01-01] MEDS ORDERED: LACTATED RINGERS 1,000 ML IV PRN (09:37)
--- NOTE | 2020-01-01 09:39 | Progress Note-Pre Operative ---
Pre-Operative Progress Note H&P Reviewed The H&P was reviewed, patient examined and no changes noted. Date Seen by Provider: Jan 01, 2020 Time Seen by Provider: : Date H&P Reviewed: Jan 01, 2020 Time H&P Reviewed: : Pre-Operative Diagnosis: left lung ca, bilateral feet osteomyelitis. NONI CAMPBELL MD Jan 01, 2020 09:39
--- NOTE | 2020-01-01 09:42 | Discharge Inst-Surgical ---
D/C Lap Instructions-SHANNAN New, Converted, or Re-Newed RX: RX on Chart Follow Up Appt in 2 weeks Activity as tolerated May access and use groshong port at any time. Regular Diet Symptoms to Report: Fever over 101 degree F, Nausea/Vomiting Infection Signs and Symptoms to report: Increased redness, Foul odor of wound, Increased drainage Bathing instructions: May shower Operative Area Clean/Dry; Keep incision clean/dry If any problems/questions: Contact your physician or go to Emergency Room NONI CAMPBELL MD Jan 01, 2020 09:41
[2020-01-01] MEDS ORDERED: ACETAMINOPHEN 325 MG TABLET PO PRN (09:45)
[2020-01-01] MEDS ORDERED: ONDANSETRON 4 MG/2 ML (SDV) Z0FRAN IVP PRN ×2 (09:45→11:45)
[2020-01-01] MEDS ORDERED: morphine INJ 10 MG/ML 1ML (SYR OR VIAL) IVP PRN ×2 (09:45)
[2020-01-01] MEDS ORDERED: oxyCODONE/APAP 5/325MG (PERCOCET 5) TABLET PO PRN (09:45)
[2020-01-01] MEDS ORDERED: BUP/EPI 0.5% 1:200,000 (SENSORCAINE) 30 ML VIAL ONE (10:03)
[2020-01-01] MEDS ORDERED: HEParin (CENTRAL IV FLUSH) 500 UNIT/5 ML SYR ONE (10:03)
[2020-01-01] MEDS ORDERED: ASCO500C17 PO (10:04)
[2020-01-01] MEDS ORDERED: LORA-404 PO (10:04)
[2020-01-01] MEDS ORDERED: MULT-406 PO (10:04)
[2020-01-01] MEDS ORDERED: NALO4SPR NS (10:04)
[2020-01-01] MEDS ORDERED: ATOR40TA70 PO (10:04)
[2020-01-01] MEDS ORDERED: VANC2PIG IV (10:04)
[2020-01-01] MEDS ORDERED: 0.9% SODIUM CHLORIDE PF INJ 20 ML VIAL ONE (10:06)
[2020-01-01] MEDS ORDERED: proPOfol 200 MG/20 ML (DIPRIVAN) VIAL IV ONE (10:13)
[2020-01-01] MEDS ORDERED: MIDAZOLAM 2 MG/2 ML (VERSED) VIAL ONE (10:13)
[2020-01-01] MEDS ORDERED: KETAMINE/NaCl 50 MG/5 ML SYRINGE (ED ONLY) ONE (10:14)
--- OUTSIDE RECORDS SUMMARY | 2020-01-01 10:59 | XMS REPORT | Clinical Summary ---
Author Author [facility] Organization [facility] Address Unknown Phone Unavailable Care Team Providers Care Visual Designer Name Role Phone Bashir Paula MD Unavailable Amol Soliz MD Unavailable Ashley Haddad MD PCP Source Comments Some departments are not documenting in the electronic medical record. If you d o not see the information that you expected, contact Release of Information in [facility] [employer] department at [phone] for further assistan ce in locating additional records.[facility] Allergies Comments Active Allergy Reactions Severity [...] of Breath. Shake well before use. Active [id number] Inject 0.25 10 mL 3 entolamine(#)(+) mL [...] Health Maintenance Due Date Last Done Comments MEDICARE ANNUAL WELLNESS 1962 VISIT DTAP/TDAP VACCINES (1 - 1973 Tdap) HIV SCREENING 1977 HEPATITIS C SCREENING 1980 PHYSICAL (COMPREHENSIVE) 1980 EXAM COLORECTAL CANCER 2012 SCREENING SHINGLES RECOMBINANT 2012 VACCINE (1 of 2) INFLUENZA VACCINE 04/16/2020 Results Not on filefrom Last 3 Months Insurance Type Payer Benefit Subscriber ID Effective Phone Address Plan / Dates Group Medicare HU[employer]NA MEDICARE HU[employer]NA xxxxxxxxx 2017-P CHOICE PPO resent [id number] Advance Directives Patient Machine Icer Explanation Type Date Recorded Advance 06/16/2013 2:18 PM Directive/DPOA
--- OUTSIDE RECORDS SUMMARY | 2020-01-01 11:04 | XMS REPORT ---
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10 Active 8011742 Problem COPD exacerbation J44.1 Active 19 2438511 Problem Obstructive sleep apnea syndrome G47.33 Active 12231045 Problem Diverticulitis K57.92 Active 23287 6006 Problem Pain of right upper extremity M79.601 Active 684415974 Problem Respiratory bronchiolitis interstitial lung disease J84.115 Active 211814918 Problem Hypoxia R09.02 Active 538868798 Problem Interstitial lung disease J84.9 Acti ve [id number] ALLERGIES No Information ENCOUNTERS Encounter Location Date Diagnosis [facility] [address] [facility] [id number] [address] [place] [address] Aug, [facility] [address] 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 [id number] [address] [place] [address] Jul, [facility] [address] [facility] [id number] [address] [place] [address] Jul, [facility] [address] [place] [id number] [place] [address] Jul, Diabetic neuropathy, painful E11.40 [place] [address] [address] Jul, Type 2 diabetes mellitus wit h complication E11.8 [facility] [address] [place] [id number] [place] [address] Jun, Diabetic neuropathy, painful E11.40 [facility] [address] [address] Jun, [facility] [address] [address] Jun, Type 2 diabetes mellitus wit h complication E11.8 ; Other viral agents as the cause of diseases classified elsewhere B97.89 ; Acute upper respiratory infection, unspecified J06.9 ; Acute recurrent maxillary sinusitis J01.01 ; Sore throat J02.9 and Headache R51 [facility] [id number] [place] [address] Jun, Right lower quadrant abdomin al pain R10.31 and Type 2 diabetes mellitus with complication E11.8 [place] [address] [place] [id number] [place] [address] May, Diabetic neuropathy, painful E11.40 [facility] [address] [place] [id number] [address] [place] [address] 06 May, 2017 COPD exacerbation J44.1 and Type 2 diabetes mellitus with complication E11.8 [facility] [address] [place] [id number] [address] [place] [address] Apr, Diabetic neuropathy, painful E11.40 [place] [address] [address] Apr, Diabetic neuropathy, painful E11.40 [facility] [place] [address] [address] Mar, Bronchitis J40 [place] [address] [address] January, Type 2 diabetes mellitus wit h complication E11.8 ; Diabetic neuropathy, painful E11.40 ; Impotence N52.9 ; Coronary atherosclerosis due to lipid rich plaque I25.83 ; long-term current use of insulin Z79.4 ; Interstitial lung disease J84.9 ; Hypoxia R09.02 ; Essential hypertension I10 ; Gastroesophageal reflux disease without esophagitis K21.9 ; Left upper arm pain M79.622 and Cervical spinal stenosis M48.02 [facility] [place] [address] [address] January, Viral gastroenteritis A08.4 [place] [address] [address] Dec, Diabetic neuropathy, painful E11.40 [place] [address] [address] [place] [id number] [place] [id number] Oct, [place] [address] [address] Oct, Acute right-sided weakness M 62.89 and Slurring of speech R47.81 [place] [address] [address] Sep, Type 2 diabetes mellitus wit h complication E11.8 ; Diabetic neuropathy, painful E11.40 ; Impotence N52.9 ; Coronary atherosclerosis due to lipid rich plaque I25.83 ; long-term current use of insulin Z79.4 ; Interstitial lung disease J84.9 ; Hypoxia R09.02 ; Essential hypertension I10 and Gastroesophageal reflux disease without esophagitis K21.9 [facility] [address] [facility] [facility] [id number] [address] [place] [address] Sep, Bronchitis J40 [facility] [address] [facility] [id number] [address] [place] [address] Aug, Gastroenteritis and colitis, viral A08.4 [facility] [address] [facility] [id number] [address] [place] [address] Aug, [facility] [address] 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 [id number] [address] [place] [address] 30 May, 2016 Bronchitis J40 [facility] [address] [facility] [id number] [address] [place] [address] 29 May, 2016 [facility] [address] [facility] [id number] [address] [place] [address] May, Pain of right upper extremit y M79.601 [facility] [address] [facility] [id number] [address] [place] [address] May, [facility] [address] [facility] [id number] [address] [place] [address] 15 May, 2016 [facility] [address] [facility] [id number] [address] [place] [address] 07 May, 2016 Right hand pain M79.641 [facility] [address] [facility] [id number] [address] [place] [address] Apr, [facility] [address] [facility] [id number] [address] [place] [address] Apr, [facility] [address] [id number] [address] [place] [address] Mar, [facility] [address] [facility] [id number] [address] [place] [address] Mar, Essential hypertension I10 [facility] [address] [facility] [id number] [address] [place] [address] Feb, [facility] [address] [facility] [id number] [address] [place] [address] Feb, Interstitial lung disease J8 4.9 and Bronchitis J40 [place] [address] [facility] [id number] [address] [place] [address] Feb, [place] [address] 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 [id number] [address] [place] [address] January, [place] [address] [facility] [id number] [address] [place] [address] January, Arm paresthesia, right R20.2 and Pain of right upper extremity M79.601 [place] [address] [facility] [id number] [address] [place] [address] Dec, Lumbar strain S39.012A [place] [address] [facility] [id number] [address] [place] [address] Nov, Diabetic neuropathy, painful E11.40 ; Respiratory bronchiolitis interstitial lung disease J84.115 ; Pain of right upper extremity M79.601 and Arm paresthesia, right R20.2 [place] [address] [facility] [id number] [address] [place] [address] Nov, Diabetic neuropathy, painful E11.[address] [facility] [address] [address] Sep, Type 2 diabetes mellitus wit h complication E11.8 ; Impotence N52.9 ; Coronary atherosclerosis due to lipid rich plaque I25.83 ; long-term current use of insulin Z79.4 ; Diabetic neuropathy, painful E11.40 ; Chest pain R07.9 and Restless leg G25.[address] [address] Sep, [address] [address] Jul, COPD (chronic obstructive pu lmonary disease) with acute bronchitis J44.[address] [address] Jun, Abdominal pain R10.9 ; Famil y history of colon cancer Z80.0 and Diverticulitis K57.[address] [address] Jun, Abdominal pain R10.9 and Div erticulitis K57.[address] [address] Apr, Diabetes with other specifie d manifestations, type II or unspecified type, not stated as uncontrolled 250.80 ; Coronary atherosclerosis of unspecified type of vessel, ki[place] tribe or graft 414.00 ; Unspecified essential hypertension 401.9 ; Impotence of organic origin 607.84 ; Sleep apnea 780.57 and Interstitial lung disease [address] [address] Dec, [address] [address] Dec, [address] [address] Nov, [address] [address] Nov, [facility] [address] [id number] [address] [place] [address], [place] [address] Nov, [facility] [address] [id number] [address] [place] [address], [place] [address] Nov, [facility] [address] [id number] [address] [place] [address], [place] [address] Nov, [facility] [address] [id number] [address] [place] [address], [place] [address] Nov, [facility] [address] [id number] [address] [place] [address], [place] [address] Nov, [facility] [address] [id number] [address] [place] [address], [place] [address] Nov, [facility] [address] [id number] [address] [place] [address], [place] [address] Nov, [facility] [address] [id number] [address] [place] [address], [place] [address] Nov, [facility] [address] [id number] [address] [place] [address], [place] [address] Oct, [facility] [address] [id number] [address] [place] [address], [place] [address] Oct, 2014 [facility] [address] [id number] [address] [place] [address], [place] [address] Oct, 2014 [facility] [address] [id number] [address] [place] [address] Oct, 2014 [facility] [address] [id number] [address] [place] [address], [place] [address] Oct, 2014 [facility] [address] [id number] [address] [place] [address], [place] [address] Oct, 2014 [facility] [address] [id number] [address] [place] [address], [place] [address] Oct, 2014 [facility] [address] [id number] [address] [place] [address], [place] [address] 04 Oct, 2014 [facility] [address] [id number] [address] [place] [address], [place] [address] Oct, 2014 [facility] [address] [id number] [address] [place] [address], [place] [address] Oct, 2014 [facility] [address] [id number] [address] [place] [address], [place] [address] Oct, 2014 [facility] [address] [id number] [address] [place] [address], [place] [address] Jul, [facility] [address] [id number] [address] [place] [address], [place] [address] Jul, [facility] [address] [id number] [address] [place] [address], [place] [address] Jun, [facility] [address] [id number] [address] [place] [address], [place] [address] 29 Jun, 2014 [facility] [address] [id number] [address] [place] [address], [place] [address] Jun, [facility] [address] [id number] [address] [place] [address], [place] [address] 17 Jun, 2014 [facility] [address] [id number] [address] [place] [address], [place] [address] 15 Jun, 2014 [facility] [address] [id number] [address] [place] [address], [place] [address] 15 Jun, 2014 [facility] [address] [id number] [address] [place] [address], [place] [address] 14 Jun, 2014 [facility] [address] [id number] [address] [place] [address], [place] [address] 14 Jun, 2014 [facility] [address] [id number] [address] [place] [address], [place] [address] 13 Jun, 2014 [facility] [address] [id number] [address] [place] [address], [place] [address] Jun, [facility] [address] [id number] [address] [place] [address], [place] [address] 08 Jun, 2014 [facility] [address] [id number] [address] [place] [address], [place] [address] 08 Jun, 2014 [facility] [address] [id number] [address] [place] [address], [place] [address] Jun, [facility] [address] [id number] [address] [place] [address], [place] [address] Jun, [facility] [address] [id number] [address] [place] [address], [place] [address] 30 May, 2014 [facility] [address] [id number] [address] [place] [address], [place] [address] 30 May, 2014 [facility] [address] [id number] [address] [place] [address], [place] [address] May, [facility] [address] [id number] [address] [place] [address], [place] [address] May, [facility] [address] [id number] [address] [place] [address], [place] [address] 05 May, 2014 [facility] [address] [id number] [address] [place] [address], [place] [address] 05 May, 2014 [facility] [address] [id number] [address] [place] [address], [place] [address] Apr, [facility] [address] [id number] [address] [place] [address], [place] [address] Apr, [facility] [address] [id number] [address] [place] [address], [place] [address] Apr, [facility] [address] [id number] [address] [place] [address], [place] [address] Apr, [facility] [address] [id number] [address] [place] [address], [place] [address] Apr, [facility] [address] [id number] [address] [place] [address], [place] [address] Apr, [facility] [address] [id number] [facility] [place] [address] Apr, [facility] [address] [id number] [facility] [place] [address] Apr, [facility] [address] [id number] [facility] [place] [address] Apr, [facility] [address] [id number] [address] [place] [address], [place] [address] Apr, [facility] [address] [id number] [address] [place] [address], [place] [address] Apr, [facility] [address] [id number] [address] [place] [address], [place] [address] Apr, [facility] [address] [id number] [address] [place] [address], [place] [address] Mar, [facility] [address] [id number] [address] [place] [address], [place] [address] Mar, [facility] [address] [id number] [address] [place] [address], [place] [address] Mar, [facility] [address] [id number] [address] [place] [address], [place] [address] Mar, [facility] [address] [id number] [address] [place] [address], [place] [address] Mar, [facility] [address] [id number] [address] [place] [address], [place] [address] Mar, [facility] [address] [id number] [address] [place] [address], [place] [address] Mar, [facility] [address] [id number] [address] [place] [address], [place] [address] Mar, [facility] [address] [id number] [address] [place] [address], [place] [address] Mar, [facility] [address] [id number] [facility] [place] [address] Mar, [facility] [address] [id number] [facility] [place] [address] Mar, [facility] [address] [id number] [facility] [place] [address] Feb, [facility] [address] [id number] [facility] [place] [address] Feb, [facility] [address] [id number] [address] [place] [address], [place] [address] Feb, [facility] [address] [id number] [address] [place] [address], [place] [address] Feb, [facility] [address] [id number] [address] [place] [address], [place] [address] Feb, [facility] [address] [id number] [address] [place] [address], [place] [address] Feb, [facility] [address] [id number] [address] [place] [address], [place] [address] Feb, [facility] [address] [id number] [address] [place] [address], [place] [address] Feb, [facility] [address] [id number] [address] [place] [address], [place] [address] Feb, [facility] [address] [id number] [address] [place] [address], [place] [address] Feb, [facility] [address] [id number] [address] [place] [address], [place] [address] January, [facility] [address] [id number] [address] [place] [address], [place] [address] January, [facility] [address] [id number] [address] [place] [address], [place] [address] January, [facility] [address] [id number] [address] [place] [address], [place] [address] January, [facility] [address] [id number] [facility] [place] [address] January, [facility] [address] [id number] [address] [place] [address], [place] [address] January, [facility] [address] [id number] [address] [place] [address], [place] [address] January, [facility] [address] [id number] [address] [place] [address], [place] [address] January, [facility] [address] [id number] [address] [place] [address], [place] [address] January, [facility] [address] [id number] [address] [place] [address], [place] [address] January, [facility] [address] [id number] [address] [place] [address], [place] [address] January, [facility] [address] [id number] [address] [place] [address], [place] [address] January, [facility] [address] [id number] [address] [place] [address], [place] [address] January, [facility] [address] [id number] [address] [place] [address], [place] [address] January, [facility] [address] [id number] [address] [place] [address], [place] [address] January, [facility] [address] [id number] [address] [place] [address], [place] [id number] January, [facility] [address] [id number] [address] [place] [address], [place] [id number] Dec, [facility] [address] [id number] [address] [place] [address], [place] [address] Dec, [facility] [address] [id number] [address] [place] [address], [place] [address] Dec, [facility] [address] [id number] [address] [place] [address], [place] [id number] 17 Dec, 2013 [facility] [address] [id number] [address] [place] [address], [place] [address] Dec, [facility] [address] [id number] [address] [place] [address], [place] [id number] Dec, [facility] [address] [id number] [address] [place] [address], [place] [address] Dec, [facility] [address] [id number] [address] [place] [address], [place] [address] Dec, [facility] [address] [id number] [address] [place] [address], [place] [id number] Dec, [facility] [address] [id number] [address] [place] [address], [place] [address] Dec, [facility] [address] [id number] [address] [place] [address], [place] [address] Nov, [facility] [address] [id number] [address] [place] [address], [place] [address] Nov, [facility] [address] [id number] [address] [place] [address], [place] [address] Oct, [facility] [address] [id number] [address] [place] [address], [place] [address] Oct, [facility] [address] [id number] [address] [place] [address], [place] [address] Oct, [facility] [address] [id number] [address] [place] [address], [place] [address] Sep, [facility] [address] [id number] [address] [place] [address], [place] [address] Sep, [facility] [address] [id number] [address] [place] [address], [place] [id number] Sep, [facility] [address] [id number] [address] [place] [address], [place] [id number] Sep, [facility] [address] [id number] [address] [place] [address], [place] [id number] Sep, [facility] [address] [id number] [address] [place] [address], [place] [id number] Sep, [facility] [address] [id number] [address] [place] [address], [place] [id number] Sep, [facility] [address] [id number] [address] [place] [address], [place] [address] Sep, [facility] [address] [id number] [address] [place] [address], [place] [address] Sep, [facility] [address] [id number] [address] [place] [address], [place] [address] Sep, [facility] [address] [id number] [address] [place] [address], [place] [id number] Sep, [facility] [address] [id number] [address] [place] [address], [place] [id number] Sep, [facility] [address] [id number] [address] [place] [address], [place] [id number] Aug, [facility] [address] [id number] [address] [place] [address], [place] [address] Aug, [facility] [address] [id number] [address] [place] [address], [place] [address] Aug, [facility] [address] [id number] [address] [place] [address], [place] [address] Aug, [facility] [address] [id number] [address] [place] [address], [place] [address] Jul, [facility] [address] [id number] [address] [place] [address], [place] [address] Jul, [facility] [address] [id number] [address] [place] [address], [place] [address] Jun, [facility] [address] [id number] [address] [place] [address] [place] [address] 30 Jun, 2013 [facility] [address] [id number] [address] [place] [address], [place] [address] Jun, [facility] [address] [id number] [address] [place] [address], [place] [address] Jun, [facility] [address] [id number] [address] [place] [address], [place] [address] Jun, [facility] [address] [id number] [address] [place] [address], [place] [address] Jun, [facility] [address] [id number] [address] [place] [address], [place] [address] Jun, [facility] [address] [id number] [address] [place] [address], [place] [address] Jun, [facility] [address] [id number] [address] [place] [address], [place] [address] 24 May, 2012 [facility] [address] [id number] [address] [place] [address], [place] [address] 23 May, 2012 [facility] [address] [id number] [address] [place] [address], [place] [address] 18 May, 2012 [facility] [address] [id number] [address] [place] [address], [place] [address] 13 May, 2012 [facility] [address] [id number] [address] [place] [address], [place] [address] 11 May, 2012 [facility] [address] [id number] [address] [place] [address], [place] [address] 06 May, 2012 [facility] [address] [id number] [address] [place] [address], [place] [address] 03 May, 2012 [facility] [address] [id number] [address] [place] [address], [place] [address] 30 Apr, 2013 [facility] [address] [id number] [address] [place] [address], [place] [address] 22 Apr, 2013 [facility] [address] [id number] [address] [place] [address], [place] [address] Apr, [facility] [address] [id number] [address] [place] [address], [place] [address] Apr, [facility] [address] [id number] [address] [place] [address], [place] [address] Apr, [facility] [address] [id number] [address] [place] [address], [place] [address] Apr, [facility] [address] [id number] [address] [place] [address], [place] [address] Apr, [facility] [address] [id number] [address] [place] [address], [place] [address] Mar, [facility] [address] [id number] [address] [place] [address], [place] [address] Mar, [facility] [address] [id number] [address] [place] [address], [place] [address] Mar, [facility] [address] [id number] [address] [place] [address], [place] [address] Mar, [facility] [address] [id number] [address] [place] [address], [place] [address] Mar, [facility] [address] [id number] [address] [place] [address], [place] [address] Mar, [facility] [address] [id number] [address] [place] [address], [place] [address] Mar, [facility] [address] [id number] [address] [place] [address], [place] [address] Mar, [facility] [address] [id number] [address] [place] [address], [place] [address] Feb, [facility] [address] [id number] [address] [place] [address], [place] [address] Feb, [facility] [address] [id number] [address] [place] [address], [place] [address] Feb, [facility] [address] [id number] [address] [place] [address], [place] [address] January, [facility] [address] [id number] [address] [place] [address], [place] [address] January, [facility] [address] [id number] [address] [place] [address], [place] [address] January, [facility] [address] [id number] [address] [place] [address], [place] [address] January, [facility] [address] [id number] [address] [place] [address], [place] [address] January, [facility] [address] [id number] [address] [place] [address], [place] [address] January, [facility] [address] [id number] [address] [place] [address], [place] [address] January, [facility] [address] [id number] [address] [place] [address], [place] [address] January, [facility] [address] [id number] [address] [place] [address], [place] [address] Dec, [facility] [address] [id number] [address] [place] [address], [place] [address] Dec, [facility] [address] [id number] [address] [place] [address], [place] [address] Dec, [facility] [address] [id number] [address] [place] [address], [place] [address] Dec, [facility] [address] [id number] [address] [place] [address], [place] [address] Dec, [facility] [address] [id number] [address] [place] [address], [place] [address] Nov, [facility] [address] [id number] [address] [place] [address], [place] [address] Nov, [facility] [address] [id number] [address] [place] [address], [place] [address] 19 Nov, 2012 [facility] [address] [id number] [address] [place] [address], [place] [address] 18 Nov, 2012 [facility] [address] [id number] [address] [place] [address], [place] [address] 18 Nov, 2012 [facility] [address] [id number] [address] [place] [address], [place] [address] 14 Nov, 2012 [facility] [address] [id number] [address] [place] [address], [place] [address] 11 Nov, 2012 [facility] [address] [id number] [address] [place] [address], [place] [address] 11 Nov, 2012 [facility] [address] [id number] [address] [place] [address], [place] [address] 21 Oct, 2012 [facility] [address] [id number] [address] [place] [address], [place] [address] 21 Oct, 2012 [facility] [address] [id number] [address] [place] [address], [place] [address] 12 Oct, 2012 [facility] [address] [id number] [address] [place] [address], [place] [address] 08 Oct, 2012 [facility] [address] [id number] [address] [place] [address], [place] [address] 07 Oct, 2012 [facility] [address] [id number] [address] [place] [address], [place] [id number] 07 Oct, 2012 [facility] [address] [id number] [address] [place] [address], [place] [address] 05 Oct, 2012 [facility] [address] [id number] [address] [place] [address], [place] [address] 04 Oct, 2012 [facility] [address] [id number] [address] [place] [address], [place] [address] 04 Oct, 2012 [facility] [address] [id number] [address] [place] [address], [place] [address] Sep, [facility] [address] [id number] [address] [place] [address], [place] [address] Sep, [facility] [address] [id number] [address] [place] [address], [place] [address] Sep, [facility] [address] [id number] [address] [place] [address], [place] [address] Sep, [facility] [address] [id number] [address] [place] [address], [place] [address] Sep, [facility] [address] [id number] [address] [place] [address], [place] [address] Sep, [facility] [address] [id number] [address] [place] [address], [place] [address] Aug, [facility] [address] [id number] [address] [place] [address], [place] [address] Aug, [facility] [address] [id number] [address] [place] [address], [place] [address] Aug, [facility] [address] [id number] [address] [place] [address], [place] [address] Aug, [facility] [address] [id number] [address] [place] [address], [place] [address] Aug, [facility] [address] [id number] [address] [place] [address], [place] [address] 18 Aug, 2012 [facility] [address] [id number] [address] [place] [address], [place] [address] 13 Aug, 2012 [facility] [address] [id number] [address] [place] [address], [place] [address] Aug, [facility] [address] [id number] [address] [place] [address], [place] [address] Aug, [facility] [address] [id number] [address] [place] [address], [place] [address] Jul, [facility] [address] [id number] [address] [place] [id number] Jul, [facility] [address] [id number] [address] [place] [address] Jul, [facility] [address] [id number] [address] [place] [id number] Jul, [facility] [address] [facility] [id number] [address] [place] [id number] Nov, [facility] [address] [facility] [id number] [address] [place] [id number] Sep, [facility] [address] [facility] [id number] [address] [place] [address] Aug, [facility] [address] [facility] [id number] [address] [place] [id number] Aug, [facility] [address] [facility] [id number] [address] [place] [id number] Aug, [facility] [address] [facility] [id number] [address] [place] [id number] Jul, IMMUNIZATIONS No Known Immunizations SOCIAL HISTORY Never Assessed REASON FOR VISIT PLAN OF CARE VITAL SIGNS Height 74 in 2014-05-12 Weight 247.7 lbs 2014-05-12 Temperature 98.2 degrees Fahrenheit 2014-05-12 Heart Rate 96 bpm 2014-05-12 Respiratory Rate 24 2014-05-12 Blood pressure systolic 108 mmHg 2014-05-12 Blood pressure diastolic 58 mmHg 2014-05-12 MEDICATIONS Unknown Medications RESULTS No Results PROCEDURES Procedure Date Ordered Result Body Site GLYCATED HEMOGLOBIN TEST May 12, 2014 MICROALBUMIN, SEMIQUANT May 12, 2014 INSTRUCTIONS MEDICATIONS ADMINISTERED No Known [...] 05/2005 [facility] Surgical History Colonoscopy Elijah (1 Polyp) repeat 5 year s 2019 2014 Surgical History right rotator cuff surgery 06/27/2016 Hospitalization History Overdosed on Clonazepam #35. Lori melendrez 03/2014 Hospitalization History Overdosed on Xanax 07/2012 Hospitalization History Hypostension-medication side effect-[facility] 03/13/16
--- OUTSIDE RECORDS SUMMARY | 2020-01-01 11:04 | XMS REPORT ---
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 Active 660985165 Problem Abdominal pain R10.9 Active 41907 001 Problem Change in bowel habit R19.4 Active 04988493 Problem Coronary atherosclerosis due to lipid rich plaque I25.83 Active 47759433 Problem Type 2 diabetes mellitus with complication E11.8 Active 08514081 Problem Impotence N52.9 Active 683979511 Problem Family history of colon cancer Z80.0 Active 604995821 Problem Diabetic neuropathy, painful E11.40 A ctive 340485979 Problem Arm paresthesia, right R20.2 Active 02921894 Problem Gastroesophageal reflux disease without esophagitis K21.9 Active 792979743 Problem Drug abuse, opioid type F11.10 Active 5384919 Problem COPD exacerbation J44.1 Active 19 9778502 Problem Obstructive sleep apnea syndrome G47.33 Active 89486447 Problem Diverticulitis K57.92 Active 31435 6006 Problem Pain of right upper extremity M79.601 Active 534339121 Problem Respiratory bronchiolitis interstitial lung disease J84.115 Active 521031625 Problem Hypoxia R09.02 Active 448196754 Problem Interstitial lung disease J84.9 Acti ve [id number] ALLERGIES No Information ENCOUNTERS Encounter Location Date Diagnosis [facility] [address] [facility] [id number] [address] [place] [address] Aug, [facility] [address] [facility] [id number] [address] [place] [address] Aug, Diabetic neuropathy, painful E11.40 ; Interstitial lung disease J84.9 ; Chronic cough R05 ; Type 2 diabetes mellitus with complication E11.8 and 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.4 [facility] [address] [facility] [id number] [address] [place] [address] Jul, [facility] [address] [facility] [id number] [address] [place] [id number] Jul, [facility] [address] [facility] [id number] [address] [place] [address] Jul, Diabetic neuropathy, painful E11.40 [facility] [address] [facility] [id number] [address] [place] [address] Jul, Type 2 diabetes mellitus wit h complication E11.8 [facility] [address] [facility] [id number] [address] [place] [address] Jun, Diabetic neuropathy, painful E11.40 [facility] [address] [facility] [id number] [address] [place] [address] Jun, [facility] [address] [facility] [id number] [address] [place] [address] Jun, Type 2 diabetes mellitus wit h complication E11.8 ; Other viral agents as the cause of diseases classified elsewhere B97.89 ; Acute upper respiratory infection, unspecified J06.9 ; Acute recurrent maxillary sinusitis J01.01 ; Sore throat J02.9 and Headache R51 [facility] [address] [facility] [id number] [address] [place] [address] Jun, Right lower quadrant abdomin al pain R10.31 and Type 2 diabetes mellitus with complication E11.8 [facility] [address] [facility] [id number] [address] [place] [address] May, Diabetic neuropathy, painful E11.40 [facility] [address] [facility] [id number] [address] [place] [address] 06 May, 2017 COPD exacerbation J44.1 and Type 2 diabetes mellitus with complication E11.8 [facility] [address] [place] [id number] [address] [place] [address] Apr, Diabetic neuropathy, painful E11.40 [place] [address] [address] Apr, Diabetic neuropathy, painful E11.40 [facility] [address] [address] Mar, Bronchitis J40 [place] [address] [address] January, Type 2 diabetes mellitus wit h [...] M48.02 [facility] [address] [address] January, Viral gastroenteritis A08.4 [place] [address] [address] Dec, Diabetic neuropathy, painful E11.40 [facility] [address] [place] [id number] [place] [id number] Oct, [place] [address] [address] Oct, Acute right-sided weakness M 62.89 and Slurring of speech R47.81 [place] [address] [place] [id number] [address] [place] [address] Sep, Type 2 diabetes mellitus wit h complication E11.8 ; Diabetic neuropathy, painful E11.40 ; Impotence N52.9 ; Coronary atherosclerosis due to lipid rich plaque I25.83 ; correction current use of insulin Z79.4 ; Interstitial lung disease J84.9 ; Hypoxia R09.02 ; Essential hypertension I10 and Gastroesophageal reflux disease without esophagitis K21.9 [facility] [address] [facility] [id number] [address] [place] [address] Sep, Bronchitis J40 [facility] [address] [facility] [id number] [address] [place] [address] Aug, Gastroenteritis and colitis, viral A08.4 [facility] [address] [facility] [id number] [address] [place] [address] Aug, [facility] [address] [place] [id number] [address] [place] [address] Jun, Type 2 diabetes mellitus wit h complication E11.8 ; Diabetic neuropathy, painful E11.40 ; Impotence N52.9 ; Coronary atherosclerosis due to lipid rich plaque I25.83 ; 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.4 ; Interstitial lung disease J84.9 ; Hypoxia R09.02 and Essential hypertension I10 [facility] [id number] [place] [address] 30 May, 2016 Bronchitis J40 [facility] [address] [facility] [id number] [address] [place] [address] 29 May, 2016 [facility] [address] [facility] [id number] [address] [place] [address] May, Pain of right upper extremit y M79.601 [place] [address] [facility] [id number] [address] [place] [address] May, [place] [address] [facility] [id number] [address] [place] [address] 15 May, 2016 [facility] [address] [facility] [id number] [address] [place] [address] 07 May, 2016 Right hand pain M79.641 [facility] [address] [facility] [id number] [address] [place] [address] Apr, [facility] [address] [place] [id number] [address] [place] [address] Apr, [place] [address] [facility] [id number] [address] [place] [address] Mar, [facility] [address] [facility] [id number] [address] [place] [address] Mar, Essential hypertension I10 [facility] [address] [facility] [id number] [address] [place] [address] Feb, [place] [address] [place] [id number] [address] [place] [address] Feb, Interstitial lung disease J8 4.9 and Bronchitis J40 [place] [address] [facility] [id number] [address] [place] [address] Feb, [place] [address] [place] [id number] [address] [place] [address] Feb, Type 2 diabetes mellitus wit h complication E11.8 ; Impotence N52.9 ; Coronary atherosclerosis due to lipid rich plaque I25.83 ; correction current use of insulin Z79.4 and Diabetic neuropathy, painful E11.40 [place] [address] [facility] [id number] [address] [place] [address] January, [place] [address] [place] [id number] [address] [place] [address] January, Arm paresthesia, right R20.2 and Pain of right upper extremity M79.601 [place] [address] [place] [id number] [address] [place] [address] Dec, Lumbar strain S39.012A [place] [address] [facility] [id number] [address] [place] [address] Nov, Diabetic neuropathy, painful E11.40 ; Respiratory bronchiolitis interstitial lung disease J84.115 ; Pain of right upper extremity M79.601 and Arm paresthesia, right R20.2 [place] [address] [facility] [id number] [address] [place] [address] Nov, Diabetic neuropathy, painful E11.40 [place] [address] [address] Sep, Type 2 diabetes mellitus wit h complication E11.8 ; Impotence N52.9 ; Coronary atherosclerosis due to lipid rich plaque I25.83 ; 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.4 ; Diabetic neuropathy, painful E11.40 ; Chest pain R07.9 and Restless leg G25.[address] [address] Sep, [address] [address] Jul, COPD (chronic obstructive pu lmonary disease) with acute bronchitis J44.[address] [address] Jun, Abdominal pain R10.9 ; Famil y history of colon cancer Z80.0 and Diverticulitis K57.[address] [address] Jun, Abdominal pain R10.9 and Div erticulitis K57.[address] [address] Apr, Diabetes with other specifie d manifestations, type II or unspecified type, not stated as uncontrolled 250.80 ; Coronary atherosclerosis of unspecified type of vessel, hughes or graft 414.00 ; Unspecified essential hypertension 401.9 ; Impotence of organic origin 607.84 ; Sleep apnea 780.57 and Interstitial lung disease 515 [place] [address] [address] Dec, [address] [address] Dec, [address] [address] Nov, [address] [address] Nov, [facility] [address] [id number] [address] [place] [address], [place] [address] 23 Nov, 2014 [facility] [address] [id number] [address] [place] [address], [place] [address] 23 Nov, 2014 [facility] [address] [id number] [address] [place] [address], [place] [address] Nov, [facility] [address] [id number] [address] [place] [address], [place] [address] Nov, [facility] [address] [id number] [address] [place] [address], [place] [address] Nov, [facility] [address] [id number] [address] [place] [address], [place] [address] Nov, [facility] [address] [id number] [address] [place] [address], [place] [address] Nov, [facility] [address] [id number] [address] [place] [address], [place] [address] Nov, [facility] [address] [id number] [address] [place] [address], [place] [address] Oct, [facility] [address] [id number] [address] [place] [address], [place] [address] Oct, 2014 [facility] [address] [id number] [address] [place] [address] Oct, 2014 [facility] [address] [id number] [address] [place] [address] Oct, 2014 [facility] [address] [id number] [address] [place] [address], [place] [address] Oct, 2014 [facility] [address] [id number] [address] [place] [address], [place] [address] Oct, 2014 [facility] [address] [id number] [address] [place] [address] Oct, 2014 [facility] [address] [id number] [address] [place] [id number] 04 Oct, 2014 [facility] [address] [id number] [address] [place] [address], [place] [address] Oct, 2014 [facility] [address] [id number] [address] [place] [address], [place] [address] Oct, 2014 [facility] [address] [id number] [address] [place] [address], [place] [address] Oct, 2014 [facility] [address] [id number] [address] [place] [address], [place] [address] Jul, [facility] [address] [id number] [address] [place] [address], [place] [address] Jul, [facility] [address] [id number] [address] [place] [address], [place] [address] Jun, [facility] [address] [id number] [address] [place] [address], [place] [address] 29 Jun, 2014 [facility] [address] [id number] [address] [place] [address], [place] [address] 17 Jun, 2014 [facility] [address] [id number] [address] [place] [address], [place] [address] 17 Jun, 2014 [facility] [address] [id number] [address] [place] [address], [place] [address] 15 Jun, 2014 [facility] [address] [id number] [address] [place] [address], [place] [address] 15 Jun, 2014 [facility] [address] [id number] [address] [place] [address] 14 Jun, 2014 [facility] [address] [id number] [address] [place] [address], [place] [address] 14 Jun, 2014 [facility] [address] [id number] [address] [place] [address], [place] [address] 13 Jun, 2014 [facility] [address] [id number] [address] [place] [address] 13 Jun, 2014 [facility] [address] [id number] [address] [place] [address], [place] [address] 08 Jun, 2014 [facility] [address] [id number] [address] [place] [address], [place] [address] Jun, [facility] [address] [id number] [address] [place] [address], [place] [address] Jun, [facility] [address] [id number] [address] [place] [address], [place] [address] Jun, [facility] [address] [id number] [address] [place] [address], [place] [address] 30 May, 2014 [facility] [address] [id number] [address] [place] [address], [place] [address] 30 May, 2014 [facility] [address] [id number] [address] [place] [address], [place] [address] May, [facility] [address] [id number] [address] [place] [address], [place] [address] May, [facility] [address] [id number] [address] [place] [address], [place] [address] May, [facility] [address] [id number] [address] [place] [address], [place] [address] May, [facility] [address] [id number] [address] [place] [address], [place] [address] Apr, [facility] [address] [id number] [address] [place] [address], [place] [address] Apr, [facility] [address] [id number] [address] [place] [address], [place] [address] Apr, [facility] [address] [id number] [address] [place] [address], [place] [address] Apr, [facility] [address] [id number] [address] [place] [address], [place] [address] Apr, [facility] [address] [id number] [address] [place] [address], [place] [address] Apr, [facility] [address] [id number] [facility] [place] [address] Apr, [facility] [address] [id number] [address] [place] [address], [place] [address] Apr, [facility] [address] [id number] [address] [place] [address], [place] [address] Apr, [facility] [address] [id number] [address] [place] [address], [place] [address] Apr, [facility] [address] [id number] [address] [place] [address], [place] [address] Apr, [facility] [address] [id number] [address] [place] [address], [place] [address] Apr, [facility] [address] [id number] [address] [place] [address], [place] [address] Mar, [facility] [address] [id number] [address] [place] [address], [place] [address] Mar, [facility] [address] [id number] [address] [place] [address], [place] [address] Mar, [facility] [address] [id number] [address] [place] [address], [place] [address] Mar, [facility] [address] [id number] [address] [place] [address], [place] [address] Mar, [facility] [address] [id number] [address] [place] [address], [place] [address] Mar, [facility] [address] [id number] [address] [place] [address], [place] [address] Mar, [facility] [address] [id number] [address] [place] [address], [place] [address] Mar, [facility] [address] [id number] [address] [place] [address], [place] [address] Mar, [facility] [address] [id number] [facility] [place] [address] Mar, [facility] [address] [id number] [facility] [place] [address] Mar, [facility] [address] [id number] [facility] [place] [address] Feb, [facility] [address] [id number] [address] [place] [address], [place] [address] Feb, [facility] [address] [id number] [address] [place] [address], [place] [address] Feb, [facility] [address] [id number] [address] [place] [address], [place] [address] Feb, [facility] [address] [id number] [address] [place] [address], [place] [address] Feb, [facility] [address] [id number] [address] [place] [address], [place] [address] Feb, [facility] [address] [id number] [address] [place] [address], [place] [address] Feb, [facility] [address] [id number] [address] [place] [address], [place] [address] Feb, [facility] [address] [id number] [address] [place] [address], [place] [address] Feb, [facility] [address] [id number] [address] [place] [address], [place] [address] Feb, [facility] [address] [id number] [address] [place] [address], [place] [address] January, [facility] [address] [id number] [address] [place] [address], [place] [address] January, [facility] [address] [id number] [address] [place] [address], [place] [address] January, [facility] [address] [id number] [address] [place] [address], [place] [address] January, [facility] [address] [id number] [address] [place] [address], [place] [address] January, [facility] [address] [id number] [address] [place] [address], [place] [address] January, [facility] [address] [id number] [address] [place] [address], [place] [address] January, [facility] [address] [id number] [address] [place] [address], [place] [address] January, [facility] [address] [id number] [address] [place] [address], [place] [address] January, [facility] [address] [id number] [address] [place] [address], [place] [address] January, [facility] [address] [id number] [address] [place] [address], [place] [address] January, [facility] [address] [id number] [address] [place] [address], [place] [address] January, [facility] [address] [id number] [address] [place] [address], [place] [address] January, [facility] [address] [id number] [address] [place] [address], [place] [address] January, [facility] [address] [id number] [address] [place] [address], [place] [address] January, [facility] [address] [id number] [address] [place] [address], [place] [address] January, [facility] [address] [id number] [address] [place] [address], [place] [address] Dec, [facility] [address] [id number] [address] [place] [address], [place] [address] Dec, [facility] [address] [id number] [address] [place] [address], [place] [address] Dec, [facility] [address] [id number] [address] [place] [address], [place] [address] Dec, [facility] [address] [id number] [address] [place] [address], [place] [address] Dec, [facility] [address] [id number] [address] [place] [address], [place] [address] Dec, [facility] [address] [id number] [address] [place] [address], [place] [address] Dec, [facility] [address] [id number] [address] [place] [address], [place] [address] Dec, [facility] [address] [id number] [address] [place] [address], [place] [address] Dec, [facility] [address] [id number] [address] [place] [address], [place] [address] Dec, [facility] [address] [id number] [address] [place] [address], [place] [address] Nov, [facility] [address] [id number] [address] [place] [address], [place] [address] Nov, [facility] [address] [id number] [address] [place] [address], [place] [address] Oct, [facility] [address] [id number] [address] [place] [address], [place] [address] Oct, [facility] [address] [id number] [address] [place] [address], [place] [address] Oct, [facility] [address] [id number] [address] [place] [address], [place] [address] Sep, [facility] [address] [id number] [address] [place] [address], [place] [address] Sep, [facility] [address] [id number] [address] [place] [address], [place] [address] Sep, [facility] [address] [id number] [address] [place] [address], [place] [address] Sep, [facility] [address] [id number] [address] [place] [address], [place] [address] Sep, [facility] [address] [id number] [address] [place] [address], [place] [address] Sep, [facility] [address] [id number] [address] [place] [address], [place] [address] Sep, [facility] [address] [id number] [address] [place] [address], [place] [address] Sep, [facility] [address] [id number] [address] [place] [address], [place] [address] Sep, [facility] [address] [id number] [address] [place] [address], [place] [address] Sep, [facility] [address] [id number] [address] [place] [address], [place] [address] Sep, [facility] [address] [id number] [address] [place] [address], [place] [address] Sep, [facility] [address] [id number] [address] [place] [address], [place] [address] Aug, [facility] [address] [id number] [address] [place] [address], [place] [address] Aug, [facility] [address] [id number] [address] [place] [address], [place] [address] Aug, [facility] [address] [id number] [address] [place] [address], [place] [address] Aug, [facility] [address] [id number] [address] [place] [address], [place] [address] Jul, [facility] [address] [id number] [address] [place] [address], [place] [address] Jul, [facility] [address] [id number] [address] [place] [address], [place] [address] Jun, [facility] [address] [id number] [address] [place] [address] Jun, [facility] [address] [id number] [address] [place] [address], [place] [address] Jun, [facility] [address] [id number] [address] [place] [address], [place] [address] Jun, [facility] [address] [id number] [address] [place] [address], [place] [address] Jun, [facility] [address] [id number] [address] [place] [address] Jun, [facility] [address] [id number] [address] [place] [address], [place] [address] Jun, [facility] [address] [id number] [address] [place] [address] Jun, [facility] [address] [id number] [address] [place] [address], [place] [address] 24 May, 2013 [facility] [address] [id number] [address] [place] [address], [place] [address] 23 May, 2013 [facility] [address] [id number] [address] [place] [address], [place] [address] 18 May, 2013 [facility] [address] [id number] [address] [place] [address], [place] [address] 13 May, 2013 [facility] [address] [id number] [address] [place] [address], [place] [address] 11 May, 2013 [facility] [address] [id number] [address] [place] [id number] 06 May, 2012 [facility] [address] [id number] [address] [place] [address], [place] [address] 03 May, 2013 [facility] [address] [id number] [address] [place] [address], [place] [address] 30 Apr, 2013 [facility] [address] [id number] [address] [place] [address], [place] [address] Apr, [facility] [address] [id number] [address] [place] [address], [place] [address] Apr, [facility] [address] [id number] [address] [place] [address], [place] [address] Apr, [facility] [address] [id number] [address] [place] [address], [place] [address] Apr, [facility] [address] [id number] [address] [place] [address], [place] [address] Apr, [facility] [address] [id number] [address] [place] [address], [place] [address] Apr, [facility] [address] [id number] [address] [place] [address], [place] [address] Mar, [facility] [address] [id number] [address] [place] [address], [place] [address] Mar, [facility] [address] [id number] [address] [place] [address], [place] [address] Mar, [facility] [address] [id number] [address] [place] [address], [place] [address] Mar, [facility] [address] [id number] [address] [place] [address], [place] [address] Mar, [facility] [address] [id number] [address] [place] [address], [place] [address] Mar, [facility] [address] [id number] [address] [place] [address], [place] [address] Mar, [facility] [address] [id number] [address] [place] [address], [place] [address] Mar, [facility] [address] [id number] [address] [place] [address], [place] [address] Feb, [facility] [address] [id number] [address] [place] [address], [place] [address] Feb, [facility] [address] [id number] [address] [place] [address], [place] [address] Feb, [facility] [address] [id number] [address] [place] [address], [place] [address] January, [facility] [address] [id number] [address] [place] [address], [place] [address] January, [facility] [address] [id number] [address] [place] [address], [place] [address] January, [facility] [address] [id number] [address] [place] [address], [place] [address] January, [facility] [address] [id number] [address] [place] [address], [place] [address] January, [facility] [address] [id number] [address] [place] [address], [place] [address] January, [facility] [address] [id number] [address] [place] [address], [place] [address] January, [facility] [address] [id number] [address] [place] [address], [place] [address] January, [facility] [address] [id number] [address] [place] [address], [place] [address] Dec, [facility] [address] [id number] [address] [place] [address], [place] [address] Dec, [facility] [address] [id number] [address] [place] [address], [place] [address] Dec, [facility] [address] [id number] [address] [place] [address], [place] [address] Dec, [facility] [address] [id number] [address] [place] [address], [place] [address] Dec, [facility] [address] [id number] [address] [place] [address], [place] [address] Nov, [facility] [address] [id number] [address] [place] [address], [place] [address] Nov, [facility] [address] [id number] [address] [place] [address], [place] [address] 19 Nov, 2012 [facility] [address] [id number] [address] [place] [address], [place] [address] 18 Nov, 2012 [facility] [address] [id number] [address] [place] [address], [place] [address] 18 Nov, 2012 [facility] [address] [id number] [address] [place] [address], [place] [address] 14 Nov, 2012 [facility] [address] [id number] [address] [place] [address], [place] [address] 11 Nov, 2012 [facility] [address] [id number] [address] [place] [address], [place] [address] 11 Nov, 2012 [facility] [address] [id number] [address] [place] [address], [place] [address] 21 Oct, 2012 [facility] [address] [id number] [address] [place] [address], [place] [address] 21 Oct, 2012 [facility] [address] [id number] [address] [place] [address], [place] [address] 12 Oct, 2012 [facility] [address] [id number] [address] [place] [address], [place] [address] 08 Oct, 2012 [facility] [address] [id number] [address] [place] [address], [place] [address] 07 Oct, 2012 [facility] [address] [id number] [address] [place] [address], [place] [address] 07 Oct, 2012 [facility] [address] [id number] [address] [place] [address], [place] [address] 05 Oct, 2012 [facility] [address] [id number] [address] [place] [address], [place] [address] 04 Oct, 2012 [facility] [address] [id number] [address] [place] [address], [place] [address] 04 Oct, 2012 [facility] [address] [id number] [address] [place] [address], [place] [address] Sep, [facility] [address] [id number] [address] [place] [address], [place] [address] Sep, [facility] [address] [id number] [address] [place] [address], [place] [address] Sep, [facility] [address] [id number] [address] [place] [address], [place] [address] Sep, [facility] [address] [id number] [address] [place] [address], [place] [address] Sep, [facility] [address] [id number] [address] [place] [address], [place] [address] Sep, [facility] [address] [id number] [address] [place] [address], [place] [address] Aug, [facility] [address] [id number] [address] [place] [address], [place] [address] Aug, [facility] [address] [id number] [address] [place] [address], [place] [address] Aug, [facility] [address] [id number] [address] [place] [address], [place] [address] Aug, [facility] [address] [id number] [address] [place] [address], [place] [address] Aug, [facility] [address] [id number] [address] [place] [address], [place] [address] Aug, [facility] [address] [id number] [address] [place] [address], [place] [address] Aug, [facility] [address] [id number] [address] [place] [address], [place] [address] Aug, [facility] [address] [id number] [address] [place] [address], [place] [address] Aug, [facility] [address] [id number] [address] [place] [address], [place] [address] 30 Jul, 2012 [facility] [address] [id number] [address] [place] [address] Jul, [facility] [address] [facility] [id number] [address] [place] [address] Jul, [facility] [address] [facility] [id number] [address] [place] [address] Jul, [facility] [address] [facility] [id number] [address] [place] [address] Nov, [facility] [address] [facility] [id number] [address] [place] [address] Sep, [facility] [address] [facility] [id number] [address] [place] [id number] Aug, [facility] [address] [facility] [id number] [address] [place] [id number] Aug, [facility] [address] [facility] [id number] [address] [place] [address] Aug, [facility] [address] [facility] [id number] [address] [place] [address] Jul, IMMUNIZATIONS No Known Immunizations SOCIAL HISTORY [...] 07/2012 Hospitalization History Hypostension-medication side effect-[facility]ia [facility] 03/13/16
--- OUTSIDE RECORDS SUMMARY | 2020-01-01 11:05 | XMS REPORT ---
Author Author Miguel Freeman Doctor Organization [facility] Address Unknown Phone Unavailable Care Team Providers Care Outboard Technician Name Role Phone Migration, Doctor Unavailable Unavailable PROBLEMS Type Condition ICD9-CM Code [id number] Code Onset Dates Condition S tatus SNOMED Code Problem Neuropathy G62.9 Active 218832857 Problem Essential hypertension I10 Active 99565136 Problem 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.4 Active 631277329 Problem Abdominal pain R10.9 Active 12528 001 Problem Change in bowel habit R19.4 Active 47081548 Problem Coronary atherosclerosis due to lipid rich plaque I25.83 Active 28184552 Problem Type 2 diabetes mellitus with complication E11.8 Active 39067667 Problem Impotence N52.9 Active 258073363 Problem Family history of colon cancer Z80.0 Active 356928116 Problem Diabetic neuropathy, painful E11.40 A ctive 355545503 Problem Arm paresthesia, right R20.2 Active 82331332 Problem Gastroesophageal reflux disease without esophagitis K21.9 Active 021441131 Problem Drug abuse, opioid type F11.10 Active 6660806 Problem COPD exacerbation J44.1 Active 19 1664843 Problem Obstructive sleep apnea syndrome G47.33 Active 69752065 Problem Diverticulitis K57.92 Active 32912 6006 Problem Pain of right upper extremity M79.601 Active 007158261 Problem Respiratory bronchiolitis interstitial lung disease J84.115 Active 896636043 Problem Hypoxia R09.02 Active 831958110 Problem Interstitial lung disease J84.9 Acti ve [id number] ALLERGIES No Information ENCOUNTERS Encounter Location Date Diagnosis [facility] [address] [id number] [place] [address] Aug, 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 [id number] [place] [address] Jul, [facility] [address] [address] Jul, [facility] [address] [address] Jul, Diabetic neuropathy, painful E11.40 [place] [address] [address] Jul, Type 2 diabetes mellitus with complicati on E11.8 [place] [address] [address] Jun, Diabetic neuropathy, painful E11.40 [place] [address] [address] Jun, [facility] [id number] [address] Jun, Type 2 diabetes mellitus wit h complication E11.8 ; Other viral agents as the cause of diseases classified elsewhere B97.89 ; Acute upper respiratory infection, unspecified J06.9 ; Acute recurrent maxillary sinusitis J01.01 ; Sore throat J02.9 and Headache R51 [place] [address] [address] Jun, Right lower quadrant abdominal pain R10. 31 and Type 2 diabetes mellitus with complication E11.8 [place] [address] [address] May, Diabetic neuropathy, painful E11.40 [place] [address] [address] May, COPD exacerbation J44.1 and Type 2 diabe chidi mellitus with complication E11.8 [place] [address] [address] Apr, Diabetic neuropathy, painful E11.40 [place] [address] [address] Apr, Diabetic neuropathy, painful E11.40 [facility] [address] [place], [place] [id number] [address] [place] [address] Mar, Bronchitis J40 [place] [address] [address] January, Type 2 diabetes mellitus with complicati on E11.8 ; Diabetic neuropathy, painful E11.40 ; Impotence N52.9 ; Coronary atherosclerosis due to lipid rich plaque I25.83 ; 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.4 ; Interstitial lung disease J84.9 ; Hypoxia R09.02 ; Essential hypertension I10 ; Gastroesophageal reflux disease without esophagitis K21.9 ; Left upper arm pain M79.622 and Cervical spinal stenosis M48.02 [facility] [place] [id number] [place] [address] January, Viral gastroenteritis A08.[address] [address] Dec, Diabetic neuropathy, painful E11.40 [place] [address] [id number] Oct, [address] [address] Oct, Acute right-sided weakness M62.89 and Sl urring of speech R47.[address] [address] Sep, Type 2 diabetes mellitus with complicati on E11.8 ; Diabetic neuropathy, painful E11.40 ; Impotence N52.9 ; Coronary atherosclerosis due to lipid rich plaque I25.83 ; 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 [address] [address] Aug, [facility] [address] [address] Jun, Type 2 diabetes mellitus with complicati on E11.8 ; Diabetic neuropathy, painful E11.40 ; Impotence N52.9 ; Coronary atherosclerosis due to lipid rich plaque I25.83 ; 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.4 ; Interstitial lung disease J84.9 ; Hypoxia R09.02 and Essential hypertension I10 [facility] [address] [address] 30 May, [address] [facility] [address] [address] May, [facility] [address] [address] May, Pain of right upper extremity M79.601 [place] [address] [address] May, [facility] [address] [address] May, [place] [address] [address] May, Right hand pain M79.641 [facility] [address] [address] Apr, [facility] [address] [address] Apr, [place] [address] [address] Mar, 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.4 and Diabetic neuropathy, painful E11.40 [place] [address] [address] January, [place] [address] [address] January, Arm paresthesia, right R20.2 and Pain of right upper extremity M79.601 [place] [address] [address] Dec, Lumbar strain S39.012A [place] [address] [address] Nov, Diabetic neuropathy, painful E11.40 ; Re spiratory bronchiolitis interstitial lung disease J84.115 ; Pain of right upper extremity M79.601 and Arm paresthesia, right R20.2 [place] [address] [address] Nov, Diabetic neuropathy, painful E11.40 [place] [address] [address] Sep, Type 2 diabetes mellitus with complicati on E11.8 ; Impotence N52.9 ; Coronary atherosclerosis due to lipid rich plaque I25.83 ; 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 [address] [address] Sep, [facility] [address] [address] Jul, COPD (chronic obstructive pulmonary dise ase) with acute bronchitis J44.0 [place] [address] [address] Jun, Abdominal pain R10.9 ; Family history of colon cancer Z80.0 and Diverticulitis K57.92 [place] [address] [address] Jun, Abdominal pain R10.9 and Diverticulitis K57.92 [place] [address] [address] Apr, Diabetes with other specified manifestat ions, type II or unspecified type, not stated as uncontrolled 250.80 ; Coronary atherosclerosis of unspecified type of vessel, absentee-shawnee or graft 414.00 ; Unspecified essential hypertension 401.9 ; Impotence of organic origin 607.84 ; Sleep apnea 780.57 and Interstitial lung disease 515 [place] [address] [address] Dec, [place] [address] [address] Dec, [place] [address] [address] Nov, [facility] [address] [address] Nov, [facility] [address] [address] Nov, [facility] [address] [address] Nov, [facility] [address] [address] Nov, [facility] [address] [address] Nov, [facility] [place] [facility] [address] [id number] [place] [address] Nov, [facility] [place] [facility] [address] [id number] [place] [address] Nov, [facility] [place] [facility] [address] [id number] [place] [address] Nov, 2014 [facility] [place] [facility] [address] [id number] [place] [address] Nov, 2014 [facility] [place] [facility] [address] [id number] [place] [address] Oct, 2014 [facility] [place] [facility] [address] [id number] [place] [address] Oct, 2014 [facility] [place] [facility] [address] [id number] [place] [address] Oct, 2014 [facility] [place] [facility] [address] [id number] [place] [address] Oct, 2014 [facility] [place] [facility] [address] [id number] [place] [address] Oct, 2014 [facility] [place] [facility] [address] [id number] [place] [address] Oct, 2014 [facility] [place] [facility] [address] [id number] [place] [address] Oct, 2014 [facility] [place] [facility] [address] [id number] [place] [address] Oct, 2014 [facility] [place] [facility] [address] [id number] [place] [address] Oct, 2014 [facility] [place] [facility] [address] [id number] [place] [address] Oct, 2014 [facility] [place] [facility] [address] [id number] [place] [address] Oct, 2014 [facility] [place] [facility] [address] [id number] [place] [address] Jul, [facility] [place] [facility] [address] [id number] [place] [address] Jul, 2013 [facility] [place] [facility] [address] [id number] [place] [address] Jun, 2013 [facility] [place] [facility] [address] [id number] [place] [address] 29 Jun, 2013 [facility] [place] [facility] [address] [id number] [place] [address] Jun, 2013 [facility] [place] [facility] [address] [id number] [place] [address] 17 Jun, 2013 [facility] [place] [facility] [address] [id number] [place] [address] 15 Jun, 2014 [facility] [place] [facility] [address] [id number] [place] [address] 15 Jun, 2013 [facility] [place] [facility] [address] [id number] [place] [address] 14 Jun, 2013 [facility] [place] [facility] [address] [id number] [place] [address] 14 Jun, 2013 [facility] [place] [facility] [address] [id number] [place] [address] 13 Jun, 2014 [facility] [place] [facility] [address] [id number] [place] [address] 13 Jun, 2013 [facility] [place] [facility] [address] [id number] [place] [address] 08 Jun, 2013 [facility] [place] [facility] [address] [id number] [place] [address] 08 Jun, 2013 [facility] [place] [facility] [address] [id number] [place] [address] 07 Jun, 2013 [facility] [place] [facility] [address] [id number] [place] [address] 07 Jun, 2013 [facility] [place] [facility] [address] [id number] [place] [address] 30 May, 2013 [facility] [place] [facility] [address] [id number] [place] [address] 30 May, 2013 [facility] [place] [facility] [address] [id number] [facility] [place] [place] [address] May, [facility] [place] [facility] [address] [id number] [facility] [place] [address] May, [facility] [place] [facility] [address] [id number] [facility] [place] [place] [address] May, [facility] [place] [facility] [address] [id number] [facility] [place] [place] [address] May, [facility] [place] [facility] [address] [id number] [facility] [place] [place] [address] Apr, [facility] [place] [facility] [address] [id number] [place] [address] Apr, [facility] [place] [facility] [address] [id number] [place] [address] Apr, [facility] [place] [facility] [address] [id number] [facility] [place] [address] Apr, [facility] [place] [facility] [address] [id number] [facility] [place] [place] [address] Apr, [facility] [place] [facility] [address] [id number] [facility] [place] [place] [address] Apr, [facility] [place] [facility] [address] [id number] [place] [address] Apr, [facility] [place] [facility] [address] [id number] [place] [address] Apr, [facility] [place] [facility] [address] [id number] [place] [address] Apr, [facility] [place] [facility] [address] [id number] [place] [address] Apr, [facility] [place] [facility] [address] [id number] [place] [address] Apr, [facility] [place] [facility] [address] [id number] [place] [address] Apr, [facility] [place] [facility] [address] [id number] [facility] [place] [place] [address] Mar, [facility] [place] [facility] [address] [id number] [facility] [place] [place] [address] Mar, [facility] [place] [facility] [address] [id number] [place] [address] Mar, [facility] [place] [facility] [address] [id number] [place] [address] Mar, [facility] [place] [facility] [address] [id number] [facility] [place] [place] [address] Mar, [facility] [place] [facility] [address] [id number] [facility] [place] [place] [address] Mar, [facility] [place] [facility] [address] [id number] [place] [address] Mar, [facility] [place] [facility] [address] [id number] [place] [address] Mar, [facility] [place] [facility] [address] [id number] [place] [address] Mar, [facility] [place] [facility] [address] [id number] [place] [address] Mar, [facility] [place] [facility] [address] [id number] [place] [address] Mar, [facility] [place] [facility] [address] [id number] [place] [address] Feb, [facility] [place] [facility] [address] [id number] [place] [address] Feb, [facility] [place] [facility] [address] [id number] [place] [address] Feb, [facility] [place] [facility] [address] [id number] [place] [address] Feb, [facility] [place] [facility] [address] [id number] [place] [address] Feb, [facility] [place] [facility] [address] [id number] [place] [address] Feb, [facility] [place] [facility] [address] [id number] [place] [address] Feb, [facility] [place] [facility] [address] [id number] [place] [address] Feb, [facility] [place] [facility] [address] [id number] [place] [address] Feb, [facility] [place] [facility] [address] [id number] [place] [address] Feb, [facility] [place] [facility] [address] [id number] [place] [address] January, [facility] [place] [facility] [address] [id number] [place] [address] January, [facility] [place] [facility] [address] [id number] [place] [address] January, [facility] [place] [facility] [address] [id number] [place] [address] January, [facility] [place] [facility] [address] [id number] [place] [address] January, [facility] [place] [facility] [address] [id number] [place] [address] January, [facility] [place] [facility] [address] [id number] [place] [address] January, [facility] [place] [facility] [address] [id number] [place] [address] January, [facility] [place] [facility] [address] [id number] [place] [address] January, [facility] [place] [facility] [address] [id number] [place] [address] January, [facility] [place] [facility] [address] [id number] [place] [address] January, [facility] [place] [facility] [address] [id number] [place] [address] January, [facility] [place] [facility] [address] [id number] [place] [address] January, [facility] [place] [facility] [address] [id number] [place] [address] January, [facility] [place] [facility] [address] [id number] [place] [address] January, [facility] [place] [facility] [address] [id number] [place] [address] January, [facility] [place] [facility] [address] [id number] [place] [address] Dec, [facility] [place] [facility] [address] [id number] [place] [address] Dec, [facility] [place] [facility] [address] [id number] [place] [address] Dec, [facility] [place] [facility] [address] [id number] [place] [address] Dec, [facility] [place] [facility] [address] [id number] [place] [address] Dec, [facility] [place] [facility] [address] [id number] [place] [address] Dec, [facility] [place] [facility] [address] [id number] [place] [address] Dec, [facility] [place] [facility] [address] [id number] [place] [address] Dec, [facility] [place] [facility] [address] [id number] [place] [address] Dec, [facility] [place] [facility] [address] [id number] [place] [address] Dec, [facility] [place] [facility] [address] [id number] [place] [address] Nov, [facility] [place] [facility] [address] [id number] [place] [address] Nov, [facility] [place] [facility] [address] [id number] [place] [address] Oct, [facility] [place] [facility] [address] [id number] [place] [address] 07 Oct, 2013 [facility] [place] [facility] [address] [id number] [place] [address] Oct, [facility] [place] [facility] [address] [id number] [place] [address] Sep, [facility] [place] [facility] [address] [id number] [place] [address] Sep, [facility] [place] [facility] [address] [id number] [place] [address] Sep, [facility] [place] [facility] [address] [id number] [place] [address] Sep, [facility] [place] [facility] [address] [id number] [place] [address] Sep, [facility] [place] [facility] [address] [id number] [place] [address] Sep, [facility] [place] [facility] [address] [id number] [place] [address] Sep, [facility] [place] [facility] [address] [id number] [place] [address] Sep, [facility] [place] [facility] [address] [id number] [place] [address] Sep, [facility] [place] [facility] [address] [id number] [place] [address] Sep, [facility] [place] [facility] [address] [id number] [place] [address] Sep, [facility] [place] [facility] [address] [id number] [place] [address] Sep, [facility] [place] [facility] [address] [id number] [place] [address] Aug, [facility] [place] [facility] [address] [id number] [place] [address] Aug, [facility] [place] [facility] [address] [id number] [place] [address] Aug, [facility] [place] [facility] [address] [id number] [place] [address] Aug, 2012 [facility] [place] [facility] [address] [id number] [place] [address] Jul, [facility] [place] [facility] [address] [id number] [place] [address] Jul, [facility] [place] [facility] [address] [id number] [place] [address] Jun, [facility] [place] [facility] [address] [id number] [place] [address] Jun, [facility] [place] [facility] [address] [id number] [place] [address] Jun, [facility] [place] [facility] [address] [id number] [place] [address] Jun, [facility] [place] [facility] [address] [id number] [place] [address] Jun, [facility] [place] [facility] [address] [id number] [place] [address] Jun, [facility] [place] [facility] [address] [id number] [place] [address] Jun, [facility] [place] [facility] [address] [id number] [place] [address] Jun, [facility] [place] [facility] [address] [id number] [place] [address] 24 May, 2012 [facility] [place] [facility] [address] [id number] [place] [address] 23 Sep, 2012 [facility] [place] [facility] [address] [id number] [place] [address] 18 Sep, 2012 [facility] [place] [facility] [address] [id number] [place] [address] 13 Sep, 2012 [facility] [place] [facility] [address] [id number] [place] [address] 11 Sep, 2012 [facility] [place] [facility] [address] [id number] [place] [address] May, [facility] [place] [facility] [address] [id number] [place] [address] May, [facility] [place] [facility] [address] [id number] [facility] [place] [address] Apr, [facility] [place] [facility] [address] [id number] [facility] [place] [address] Apr, [facility] [place] [facility] [address] [id number] [place] [address] Apr, [facility] [place] [facility] [address] [id number] [place] [address] Apr, [facility] [place] [facility] [address] [id number] [place] [address] Apr, [facility] [place] [facility] [address] [id number] [facility] [place] [address] Apr, [facility] [place] [facility] [address] [id number] [facility] [place] [place] [address] Apr, [facility] [place] [facility] [address] [id number] [facility] [place] [place] [address] Mar, [facility] [facility] [address] [id number] [facility] [place] [address] Mar, [facility] [address] [id number] [facility] [place] [address] Mar, [facility] [address] [id number] [facility] [place] [address] Mar, [facility] [address] [id number] [facility] [place] [address] Mar, [facility] [address] [id number] [facility] [place] [place] [address] Mar, [facility] [address] [id number] [facility] [place] [address] Mar, [facility] [address] [id number] [facility] [place] [place] [address] Mar, [facility] [address] [id number] [place] [address] 18 Feb, 2013 [facility] [address] [id number] [place] [address] Feb, [facility] [address] [id number] [place] [address] Feb, [facility] [address] [id number] [place] [address] January, [facility] [address] [id number] [place] [address] January, [facility] [address] [id number] [place] [address] January, [facility] [address] [id number] [place] [address] January, [facility] [address] [id number] [place] [address] January, [facility] [address] [id number] [place] [address] January, [facility] [address] [id number] [place] [address] January, [facility] [address] [id number] [place] [address] January, [facility] [address] [id number] [place] [address] Dec, [facility] [address] [id number] [place] [address] Dec, [facility] [address] [id number] [place] [address] Dec, [facility] [address] [id number] [place] [address] Dec, [facility] [address] [id number] [place] [address] Dec, [facility] [address] [id number] [place] [address] Nov, [facility] [address] [id number] [place] [address] 21 Nov, 2012 [facility] [address] [id number] [facility] [place] [address] 19 Nov, 2012 [facility] [address] [id number] [place] [address] 18 Nov, 2012 [facility] [address] [id number] [place] [address] 18 Nov, 2012 [facility] [address] [id number] [place] [address] 14 Nov, 2012 [facility] [address] [id number] [place] [address] 11 Nov, 2012 [facility] [address] [id number] [place] [address] Nov, [facility] [address] [id number] [place] [address] Oct, [facility] [address] [id number] [place] [address] Oct, [facility] [address] [id number] [place] [address] 12 Oct, 2012 [facility] [address] [id number] [place] [address] 08 Oct, 2012 [facility] [address] [id number] [place] [address] 07 Oct, 2012 [facility] [address] [id number] [place] [address] 07 Oct, 2012 [facility] [address] [id number] [place] [address] 05 Oct, 2012 [facility] [address] [id number] [place] [address] 04 Oct, 2012 [facility] [address] [id number] [place] [address] 04 Oct, 2012 [facility] [address] [id number] [place] [address] Sep, [facility] [address] [id number] [place] [address] Sep, [facility] [address] [id number] [place] [address] Sep, [facility] [address] [id number] [place] [address] Sep, [facility] [address] [id number] [place] [address] Sep, [facility] [address] [id number] [place] [address] Sep, [facility] [address] [id number] [place] [address] Aug, [facility] [address] [id number] [place] [address] Aug, [facility] [address] [id number] [place] [address] Aug, [facility] [address] [id number] [place] [address] Aug, [facility] [address] [id number] [place] [address] Aug, [facility] [address] [id number] [place] [address] Aug, [facility] [address] [id number] [place] [address] Aug, [facility] [address] [id number] [place] [address] Aug, [facility] [address] [id number] [place] [address] Aug, [facility] [address] [id number] [place] [address] Jul, [facility] [address] [id number] [place] [address] Jul, [facility] [id number] [place] [address] Jul, [facility] [address] [address] Jul, [facility] [address] [address] Nov, [facility] [address] [address] Sep, [facility] [address] [address] Aug, [facility] [address] [address] Aug, [facility] [address] [address] Aug, [facility] [address] [address] Jul, IMMUNIZATIONS No Known Immunizations SOCIAL HISTORY [...]
--- OUTSIDE RECORDS SUMMARY | 2020-01-01 11:05 | XMS REPORT ---
Author Author Pete, Miguel Doctor Organization [facility] Address Unknown Phone Unavailable Care Team Providers Care Igniter Assembler Name Role Phone Migration, Doctor Unavailable Unavailable PROBLEMS Type Condition ICD9-CM Code POR46-XD Code Onset Dates Condition S tatus SNOMED Code Problem Neuropathy G62.9 Active 506998342 Problem Essential hypertension I10 Active 29290286 Problem skilled nursing current use of insulin Z79.4 Active 406565843 Problem Abdominal pain R10.9 Active 26626 001 Problem Change in bowel habit R19.4 Active 62000426 Problem Coronary atherosclerosis due to lipid rich plaque I25.83 Active 04769668 Problem Type 2 diabetes mellitus with complication E11.8 Active 30267745 Problem Impotence N52.9 Active 098791526 Problem Family history of colon cancer Z80.0 Active 650089355 Problem Diabetic neuropathy, painful E11.40 A ctive 047651369 Problem Arm paresthesia, right R20.2 Active 45653138 Problem Gastroesophageal reflux disease without esophagitis K21.9 Active 030518543 Problem Drug abuse, opioid type F11.10 Active 8978382 Problem COPD exacerbation J44.1 Active 19 5535235 Problem Obstructive sleep apnea syndrome G47.33 Active 99830943 Problem Diverticulitis K57.92 Active 29669 6006 Problem Pain of right upper extremity M79.601 Active 523823903 Problem Respiratory bronchiolitis interstitial lung disease J84.115 Active 965084781 Problem Hypoxia R09.02 Active 645114215 Problem Interstitial lung disease J84.9 Acti ve [id number] ALLERGIES No Information ENCOUNTERS Encounter Location Date Diagnosis [facility] [address] [facility] [id number] [address] [place] [phone] Aug, [facility] [address] [facility] [id number] [address] [place] [address] Aug, Diabetic neuropathy, painful E11.40 ; Interstitial lung disease J84.9 ; Chronic cough R05 ; Type 2 diabetes mellitus with complication E11.8 and skilled nursing current use of insulin Z79.4 [facility] [address] [facility] [id number] [address] [place] [address] Jul, [facility] [address] [facility] [id number] [address] [place] [address] Jul, [facility] [address] [facility] [id number] [address] [place] [address] Jul, Diabetic neuropathy, painful E11.40 [facility] [address] [facility] [id number] [address] [place] [address] Jul, Type 2 diabetes mellitus wit h complication E11.8 [facility] [address] [facility] [id number] [address] [place] [address] Jun, Diabetic neuropathy, painful E11.40 [facility] [address] [facility] [id number] [address] [place] [phone] Jun, [facility] [address] [facility] [id number] [address] [place] [address] Jun, Type 2 diabetes mellitus wit h complication E11.8 ; Other viral agents as the cause of diseases classified elsewhere B97.89 ; Acute upper respiratory infection, unspecified J06.9 ; Acute recurrent maxillary sinusitis J01.01 ; Sore throat J02.9 and Headache R51 [facility] [address] [facility] [id number] [address] [place] [address] Jun, Right lower quadrant abdomin al pain R10.31 and Type 2 diabetes mellitus with complication E11.8 [facility] [address] [facility] [id number] [address] [place] [address] May, Diabetic neuropathy, painful E11.40 [facility] [address] [facility] [id number] [address] [place] [address] May, COPD exacerbation J44.1 and Type 2 diabetes mellitus with complication E11.8 [facility] [address] [facility] [id number] [address] [place] [address] Apr, Diabetic neuropathy, painful E11.40 [facility] [address] [place] [id number] [address] [place] [address] Apr, Diabetic neuropathy, painful E11.40 [facility] [place] [id number] [address] Mar, Bronchitis J40 [place] [address] [address] January, Type 2 diabetes mellitus wit h complication E11.8 ; Diabetic neuropathy, painful E11.40 ; Impotence N52.9 ; Coronary atherosclerosis due to lipid rich plaque I25.83 ; skilled nursing current use of insulin Z79.4 ; Interstitial lung disease J84.9 ; Hypoxia R09.02 ; Essential hypertension I10 ; Gastroesophageal reflux disease without esophagitis K21.9 ; Left upper arm pain M79.622 and Cervical spinal stenosis M48.02 [facility] [place] [address] [address] January, Viral gastroenteritis A08.4 [place] [address] [address] [place] [id number] [address] [place] [address] Dec, Diabetic neuropathy, painful E11.40 [facility] [address] [place] [id number] [place] [id number] Oct, [place] [address] [address] Oct, Acute right-sided weakness M 62.89 and Slurring of speech R47.81 [place] [id number] [place] [id number] [address] [place] [address] Sep, Type 2 diabetes mellitus wit h complication E11.8 ; Diabetic neuropathy, painful E11.40 ; Impotence N52.9 ; Coronary atherosclerosis due to lipid rich plaque I25.83 ; 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 ; Interstitial lung disease J84.9 ; Hypoxia R09.02 ; Essential hypertension I10 and Gastroesophageal reflux disease without esophagitis K21.9 [facility] [address] [place] [id number] [address] [place] [address] Sep, Bronchitis J40 [facility] [address] [facility] [id number] [address] [place] [address] Aug, Gastroenteritis and colitis, viral A08.4 [facility] [address] [facility] [id number] [address] [place] [address] Aug, [facility] [address] [facility] [id number] [address] [place] [address] Jun, Type 2 diabetes mellitus wit h complication E11.8 ; Diabetic neuropathy, painful E11.40 ; Impotence N52.9 ; Coronary atherosclerosis due to lipid rich plaque I25.83 ; skilled nursing current use of insulin Z79.4 ; Interstitial lung disease J84.9 ; Hypoxia R09.02 and Essential hypertension I10 [facility] [address] [facility] [id number] [address] [place] [address] 30 May, 2016 Bronchitis J40 [facility] [address] [facility] [id number] [address] [place] [address] 29 May, 2016 [facility] [address] [facility] [id number] [address] [place] [address] May, Pain of right upper extremit y M79.601 [facility] [address] [facility] [id number] [address] [place] [address] May, [facility] [address] [facility] [id number] [address] [place] [address] 15 May, 2016 [facility] [address] [facility] [id number] [address] [place] [address] May, Right hand pain M79.641 [facility] [address] [facility] [id number] [address] [place] [address] Apr, [facility] [address] [facility] [id number] [address] [place] [address] Apr, [facility] [address] [facility] [id number] [address] [place] [address] Mar, [place] [address] [address] [place] [id number] [address] [place] [address] Mar, Essential hypertension I10 [place] [address] [address] [facility] [id number] [address] [place] [address] Feb, [place] [address] [address] [place] [id number] [address] [place] [address] Feb, Interstitial lung disease J8 4.9 and Bronchitis J40 [place] [address] [address] [place] [id number] [address] [place] [address] Feb, [place] [address] [address] [place] [address] Feb, Type 2 diabetes mellitus wit h complication E11.8 ; Impotence N52.9 ; Coronary atherosclerosis due to lipid rich plaque I25.83 ; skilled nursing current use of insulin Z79.4 and Diabetic neuropathy, painful E11.40 [place] [address] [address] [place] [address] January, [place] [address] [place] [id number] [address] [place] [address] January, Arm paresthesia, right R20.2 and Pain of right upper extremity M79.601 [place] [address] [address] [place] [address] Dec, Lumbar strain S39.012A [place] [address] [address] [place] [id number] [address] [place] [address] Nov, Diabetic neuropathy, painful E11.40 ; Respiratory bronchiolitis interstitial lung disease J84.115 ; Pain of right upper extremity M79.601 and Arm paresthesia, right R20.2 [place] [address] [address] [place] [id number] [address] [place] [address] Nov, Diabetic neuropathy, painful E11.40 [place] [address] [address] [place] [id number] [address] [place] [address] Sep, Type 2 diabetes mellitus wit h complication E11.8 ; Impotence N52.9 ; Coronary atherosclerosis due to lipid rich plaque I25.83 ; 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 ; Diabetic neuropathy, painful E11.40 ; Chest pain R07.9 and Restless leg G25.81 [place] [address] [address] Sep, [address] [address] Jul, COPD (chronic obstructive pu lmonary disease) with acute bronchitis J44.[address] [address] Jun, Abdominal pain R10.9 ; Famil y history of colon cancer Z80.0 and Diverticulitis K57.[address] [address] Jun, Abdominal pain R10.9 and Div erticulitis K57.[address] [address] Apr, Diabetes with other specifie d manifestations, type II or unspecified type, not stated as uncontrolled 250.80 ; Coronary atherosclerosis of unspecified type of vessel, [place] or graft 414.00 ; Unspecified essential hypertension 401.9 ; Impotence of organic origin 607.84 ; Sleep apnea 780.57 and Interstitial lung disease [address] [address] Dec, [address] [address] Dec, [address] [address] Nov, [address] [address] Nov, [address] [address] Nov, [facility] [address] [id number] [address] [place] [address], [place] [id number] Nov, [facility] [address] [id number] [address] [place] [address], [place] [id number] Nov, [facility] [address] [id number] [address] [place] [address], [place] [id number] Nov, [facility] [address] [id number] [address] [place] [address], [place] [id number] Nov, [facility] [address] [id number] [address] [place] [address], [place] [id number] Nov, [facility] [address] [id number] [address] [place] [address], [place] [id number] Nov, [facility] [address] [id number] [address] [place] [address], [place] [id number] Nov, [facility] [address] [id number] [address] [place] [address], [place] [id number] Oct, 2014 [facility] [address] [id number] [address] [place] [address], [place] [id number] Oct, 2014 [facility] [address] [id number] [address] [place] [address], [place] [id number] Oct, 2014 [facility] [address] [id number] [address] [place] [address], [place] [id number] Oct, 2014 [facility] [address] [id number] [address] [place] [address], [place] [id number] Oct, 2014 [facility] [address] [id number] [address] [place] [address], [place] [id number] Oct, 2014 [facility] [address] [id number] [address] [place] [address], [place] [id number] Oct, 2014 [facility] [address] [id number] [address] [place] [address], [place] [id number] Oct, 2014 [facility] [address] [id number] [address] [place] [address], [place] [id number] 03 Oct, 2014 [facility] [address] [id number] [address] [place] [address], [place] [id number] Oct, 2014 [facility] [address] [id number] [address] [place] [address], [place] [id number] Oct, 2014 [facility] [address] [id number] [address] [place] [address], [place] [id number] Jul, 2013 [facility] [address] [id number] [address] [place] [address], [place] [id number] Jul, 2013 [facility] [address] [id number] [address] [place] [address], [place] [id number] 29 Jun, 2014 [facility] [address] [id number] [address] [place] [address], [place] [id number] 29 Jun, 2014 [facility] [address] [id number] [address] [place] [address], [place] [id number] 17 Jun, 2014 [facility] [address] [id number] [address] [place] [address], [place] [id number] 17 Jun, 2014 [facility] [address] [id number] [address] [place] [address], [place] [id number] 15 Jun, 2014 [facility] [address] [id number] [address] [place] [address], [place] [id number] 15 Jun, 2014 [facility] [address] [id number] [address] [place] [address], [place] [id number] 14 Jun, 2014 [facility] [address] [id number] [address] [place] [address], [place] [id number] 14 Jun, 2014 [facility] [address] [id number] [address] [place] [address], [place] [id number] 13 Jun, 2014 [facility] [address] [id number] [address] [place] [address], [place] [id number] 13 Jun, 2014 [facility] [address] [id number] [address] [place] [address], [place] [id number] Jun, [facility] [address] [id number] [address] [place] [address], [place] [id number] 08 Jun, 2014 [facility] [address] [id number] [address] [place] [address], [place] [id number] Jun, [facility] [address] [id number] [address] [place] [address], [place] [id number] Jun, [facility] [address] [id number] [address] [place] [address], [place] [id number] 30 May, 2014 [facility] [address] [id number] [address] [place] [address], [place] [id number] 30 May, 2014 [facility] [address] [id number] [address] [place] [address], [place] [id number] May, [facility] [address] [id number] [address] [place] [address], [place] [id number] May, [facility] [address] [id number] [address] [place] [address], [place] [id number] May, [facility] [address] [id number] [address] [place] [address], [place] [id number] May, [facility] [address] [id number] [address] [place] [address], [place] [id number] Apr, [facility] [address] [id number] [address] [place] [address], [place] [id number] Apr, [facility] [address] [id number] [address] [place] [address], [place] [id number] Apr, [facility] [address] [id number] [address] [place] [address], [place] [id number] Apr, [facility] [address] [id number] [address] [place] [address], [place] [id number] Apr, [facility] [address] [id number] [address] [place] [address], [place] [id number] Apr, [facility] [address] [id number] [facility] [place] [place] [id number] Apr, [facility] [address] [id number] [address] [place] [address], [place] [id number] Apr, [facility] [address] [id number] [address] [place] [address], [place] [id number] Apr, [facility] [address] [id number] [address] [place] [address], [place] [id number] Apr, [facility] [address] [id number] [address] [place] [address], [place] [id number] Apr, [facility] [address] [id number] [address] [place] [address], [place] [id number] Apr, [facility] [address] [id number] [address] [place] [address], [place] [id number] Mar, [facility] [address] [id number] [address] [place] [address], [place] [id number] Mar, [facility] [address] [id number] [address] [place] [address], [place] [id number] Mar, [facility] [address] [id number] [address] [place] [address], [place] [id number] Mar, [facility] [address] [id number] [address] [place] [address], [place] [id number] Mar, [facility] [address] [id number] [address] [place] [address], [place] [id number] Mar, [facility] [address] [id number] [address] [place] [address], [place] [id number] Mar, [facility] [address] [id number] [address] [place] [address], [place] [id number] Mar, [facility] [address] [id number] [address] [place] [address], [place] [id number] Mar, [facility] [address] [id number] [address] [place] [address], [place] [id number] Mar, [facility] [address] [id number] [address] [place] [address], [place] [id number] Mar, [facility] [address] [id number] [address] [place] [address], [place] [id number] Feb, [facility] [address] [id number] [address] [place] [address], [place] [id number] Feb, [facility] [address] [id number] [address] [place] [address], [place] [id number] Feb, [facility] [address] [id number] [address] [place] [address], [place] [id number] Feb, [facility] [address] [id number] [address] [place] [address], [place] [id number] Feb, [facility] [address] [id number] [address] [place] [address], [place] [id number] Feb, [facility] [address] [id number] [address] [place] [address], [place] [id number] Feb, [facility] [address] [id number] [address] [place] [address], [place] [id number] Feb, [facility] [address] [id number] [address] [place] [address], [place] [id number] Feb, [facility] [address] [id number] [address] [place] [address], [place] [id number] Feb, [facility] [address] [id number] [address] [place] [address], [place] [id number] January, [facility] [address] [id number] [address] [place] [address], [place] [id number] January, [facility] [address] [id number] [address] [place] [address], [place] [id number] January, [facility] [address] [id number] [address] [place] [address], [place] [id number] January, [facility] [address] [id number] [address] [place] [address], [place] [id number] January, [facility] [address] [id number] [facility] [place] [id number] January, [facility] [address] [id number] [address] [place] [address], [place] [id number] January, [facility] [address] [id number] [address] [place] [address], [place] [id number] January, [facility] [address] [id number] [address] [place] [address], [place] [id number] January, [facility] [address] [id number] [address] [place] [address], [place] [id number] January, [facility] [address] [id number] [address] [place] [address], [place] [id number] January, [facility] [address] [id number] [address] [place] [address], [place] [id number] January, [facility] [address] [id number] [address] [place] [address], [place] [id number] January, [facility] [address] [id number] [address] [place] [address], [place] [id number] January, [facility] [address] [id number] [address] [place] [address], [place] [id number] January, [facility] [address] [id number] [address] [place] [id number], [place] [id number] January, [facility] [address] [id number] [address] [place] [id number], [place] [id number] Dec, [facility] [address] [id number] [address] [place] [id number], [place] [id number] Dec, [facility] [address] [id number] [address] [place] [id number], [place] [id number] Dec, [facility] [address] [id number] [address] [place] [id number], [place] [id number] Dec, [facility] [address] [id number] [facility] [id number] Dec, [facility] [address] [id number] [address] [place] [id number], [place] [id number] Dec, [facility] [address] [id number] [address] [place] [id number], [place] [id number] Dec, [facility] [address] [id number] [address] [place] [id number], [place] [id number] Dec, [facility] [address] [id number] [address] [place] [id number], [place] [id number] Dec, [facility] [address] [id number] [address] [place] [id number], [place] [id number] Dec, [facility] [address] [id number] [address] [place] [id number], [place] [id number] Nov, [facility] [address] [id number] [address] [place] [id number], [place] [id number] Nov, [facility] [address] [id number] [address] [place] [id number], [place] [id number] Oct, [facility] [address] [id number] [address] [place] [id number], [place] [id number] Oct, [facility] [address] [id number] [address] [place] [id number], [place] [id number] Oct, [facility] [address] [id number] [address] [place] [id number], [place] [id number] Sep, [facility] [address] [id number] [address] [place] [id number], [place] [id number] Sep, [facility] [address] [id number] [address] [place] [id number], [place] [id number] Sep, [facility] [address] [id number] [address] [place] [id number], [place] [id number] Sep, [facility] [address] [id number] [address] [place] [id number], [place] [id number] Sep, [facility] [address] [id number] [address] [place] [id number], [place] [id number] Sep, [facility] [address] [id number] [address] [place] [id number], [place] [id number] Sep, [facility] [address] [id number] [address] [place] [id number], [place] [id number] Sep, [facility] [address] [id number] [address] [place] [id number], [place] [id number] Sep, [facility] [address] [id number] [address] [place] [id number], [place] [id number] Sep, [facility] [address] [id number] [address] [place] [address], [place] [id number] Sep, [facility] [address] [id number] [address] [place] [address], [place] [id number] Sep, [facility] [address] [id number] [address] [place] [address], [place] [id number] Aug, [facility] [address] [id number] [address] [place] [id number], [place] [id number] Aug, [facility] [address] [id number] [address] [place] [address], [place] [id number] Aug, [facility] [address] [id number] [address] [place] [address], [place] [id number] Aug, [facility] [address] [id number] [address] [place] [id number] Jul, [facility] [address] [id number] [address] [place] [address], [place] [id number] Jul, [facility] [address] [id number] [address] [place] [address], [place] [id number] Jun, [facility] [address] [id number] [address] [place] [address], [place] [id number] Jun, [facility] [address] [id number] [address] [place] [address], [place] [id number] Jun, [facility] [address] [id number] [address] [place] [address], [place] [id number] Jun, [facility] [address] [id number] [address] [place] [address], [place] [id number] Jun, [facility] [address] [id number] [address] [place] [address], [place] [id number] Jun, [facility] [address] [id number] [address] [place] [address], [place] [id number] Jun, [facility] [address] [id number] [address] [place] [address], [place] [id number] Jun, [facility] [address] [id number] [address] [place] [address], [place] [id number] 24 May, 2013 [facility] [address] [id number] [address] [place] [address], [place] [id number] 23 May, 2012 [facility] [address] [id number] [address] [place] [address], [place] [id number] 18 May, 2012 [facility] [address] [id number] [address] [place] [address], [place] [id number] 13 May, 2013 [facility] [address] [id number] [address] [place] [address], [place] [id number] 11 May, 2013 [facility] [address] [id number] [address] [place] [address], [place] [id number] 06 May, 2012 [facility] [address] [id number] [address] [place] [address], [place] [id number] 03 May, 2012 [facility] [address] [id number] [address] [place] [address], [place] [id number] 30 Apr, 2013 [facility] [address] [id number] [address] [place] [address], [place] [id number] Apr, [facility] [address] [id number] [address] [place] [address], [place] [id number] Apr, [facility] [address] [id number] [address] [place] [address], [place] [id number] Apr, [facility] [address] [id number] [address] [place] [address], [place] [id number] Apr, [facility] [address] [id number] [address] [place] [address], [place] [id number] Apr, [facility] [address] [id number] [address] [place] [address], [place] [id number] Apr, [facility] [address] [id number] [address] [place] [address], [place] [id number] Mar, [facility] [address] [id number] [address] [place] [address], [place] [id number] Mar, [facility] [address] [id number] [address] [place] [address], [place] [id number] Mar, [facility] [address] [id number] [address] [place] [address], [place] [id number] Mar, [facility] [address] [id number] [address] [place] [address], [place] [id number] Mar, [facility] [address] [id number] [address] [place] [address], [place] [id number] Mar, [facility] [address] [id number] [address] [place] [address], [place] [id number] Mar, [facility] [address] [id number] [address] [place] [address], [place] [id number] Mar, [facility] [address] [id number] [address] [place] [address], [place] [id number] Feb, [facility] [address] [id number] [address] [place] [address], [place] [id number] Feb, [facility] [address] [id number] [address] [place] [address], [place] [id number] Feb, [facility] [address] [id number] [address] [place] [address], [place] [id number] January, [facility] [address] [id number] [address] [place] [address], [place] [id number] January, [facility] [address] [id number] [address] [place] [address], [place] [id number] January, [facility] [address] [id number] [address] [place] [address], [place] [id number] January, [facility] [address] [id number] [address] [place] [address], [place] [id number] January, [facility] [address] [id number] [address] [place] [address], [place] [id number] January, [facility] [address] [id number] [address] [place] [address], [place] [id number] January, [facility] [address] [id number] [address] [place] [address], [place] [id number] January, [facility] [address] [id number] [address] [place] [address], [place] [id number] Dec, [facility] [address] [id number] [address] [place] [address], [place] [id number] Dec, [facility] [address] [id number] [address] [place] [address], [place] [id number] Dec, [facility] [address] [id number] [address] [place] [address], [place] [id number] Dec, [facility] [address] [id number] [address] [place] [address], [place] [id number] Dec, [facility] [address] [id number] [address] [place] [address], [place] [id number] Nov, [facility] [address] [id number] [address] [place] [address], [place] [id number] Nov, [facility] [address] [id number] [address] [place] [address], [place] [id number] Nov, [facility] [address] [id number] [address] [place] [address], [place] [id number] 18 Nov, 2012 [facility] [address] [id number] [address] [place] [address], [place] [id number] 18 Nov, 2012 [facility] [address] [id number] [address] [place] [address], [place] [id number] 14 Nov, 2012 [facility] [address] [id number] [address] [place] [address], [place] [id number] 11 Nov, 2012 [facility] [address] [id number] [address] [place] [address], [place] [id number] 11 Nov, 2012 [facility] [address] [id number] [address] [place] [address], [place] [id number] 21 Oct, 2012 [facility] [address] [id number] [address] [place] [address], [place] [id number] Oct, [facility] [address] [id number] [address] [place] [address], [place] [id number] 12 Oct, 2012 [facility] [address] [id number] [address] [place] [address], [place] [id number] 08 Oct, 2012 [facility] [address] [id number] [address] [place] [address], [place] [id number] 07 Oct, 2012 [facility] [address] [id number] [address] [place] [address], [place] [id number] 07 Oct, 2012 [facility] [address] [id number] [address] [place] [address], [place] [id number] 05 Oct, 2012 [facility] [address] [id number] [address] [place] [address], [place] [id number] 04 Oct, 2012 [facility] [address] [id number] [address] [place] [address], [place] [id number] 04 Oct, 2012 [facility] [address] [id number] [address] [place] [address], [place] [id number] Sep, [facility] [address] [id number] [address] [place] [address], [place] [id number] Sep, [facility] [address] [id number] [address] [place] [address], [place] [id number] Sep, [facility] [address] [id number] [address] [place] [address], [place] [id number] Sep, [facility] [address] [id number] [address] [place] [address], [place] [id number] Sep, [facility] [address] [id number] [address] [place] [address], [place] [id number] Sep, [facility] [address] [id number] [address] [place] [address], [place] [id number] Aug, [facility] [address] [id number] [address] [place] [address], [place] [id number] Aug, [facility] [address] [id number] [address] [place] [address], [place] [id number] Aug, [facility] [address] [id number] [address] [place] [address], [place] [id number] Aug, [facility] [address] [id number] [address] [place] [address], [place] [id number] Aug, [facility] [address] [id number] [address] [place] [address], [place] [id number] Aug, [facility] [address] [id number] [address] [place] [address], [place] [id number] Aug, [facility] [address] [id number] [address] [place] [address], [place] [id number] Aug, [facility] [address] [id number] [address] [place] [address], [place] [id number] Aug, [facility] [address] [id number] [address] [place] [address], [place] [id number] Jul, [facility] [address] [id number] [address] [place] [address], [place] [id number] Jul, [facility] [address] [id number] [address] [place] [id number] Jul, [facility] [address] [facility] [id number] [address] [place] [id number] Jul, [facility] [address] [facility] [id number] [address] [place] [id number] Nov, [facility] [address] [facility] [id number] [address] [place] [id number] Sep, [facility] [address] [facility] [id number] [address] [place] [id number] Aug, [facility] [address] [facility] [id number] [address] [place] [id number] Aug, [facility] [address] [facility] [id number] [address] [place] [id number] Aug, [facility] [address] [facility] [id number] [address] [place] [id number] Jul, IMMUNIZATIONS No Known Immunizations SOCIAL HISTORY [...] Xanax 07/2012 Hospitalization History Hypostension-medication side effect-[facility]ia [facility] 03/13/16
--- OUTSIDE RECORDS SUMMARY | 2020-01-01 11:05 | XMS REPORT ---
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 Active 859990440 Problem Abdominal pain R10.9 Active 76093 001 Problem Change in bowel habit R19.4 Active 11080683 Problem Coronary atherosclerosis due to lipid rich plaque I25.83 Active 86082854 Problem Type 2 diabetes mellitus with complication E11.8 Active 44728802 Problem Impotence N52.9 Active 132602529 Problem Family history of colon cancer Z80.0 Active 201300204 Problem Diabetic neuropathy, painful E11.40 A ctive 625597191 Problem Arm paresthesia, right R20.2 Active 45510027 Problem Gastroesophageal reflux disease without esophagitis K21.9 Active 139761945 Problem Drug abuse, opioid type F11.10 Active 8687557 Problem COPD exacerbation J44.1 Active 19 3738269 Problem Obstructive sleep apnea syndrome G47.33 Active 54137731 Problem Diverticulitis K57.92 Active 00842 6006 Problem Pain of right upper extremity M79.601 Active 025642507 Problem Respiratory bronchiolitis interstitial lung disease J84.115 Active 011300675 Problem Hypoxia R09.02 Active 191165914 Problem Interstitial lung disease J84.9 Acti ve [id number] ALLERGIES No Information ENCOUNTERS Encounter Location Date Diagnosis [facility] [address] [facility] [id number] [address] [place] [address] Aug, [facility] [address] [facility] [id number] [address] [place] [address] Aug, Diabetic neuropathy, painful E11.40 ; Interstitial lung disease J84.9 ; Chronic cough R05 ; Type 2 diabetes mellitus with complication E11.8 and 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 [facility] [address] [facility] [id number] [address] [place] [address] Jul, [facility] [address] [facility] [id number] [address] [place] [address] Jul, [facility] [address] [facility] [id number] [address] [place] [address] Jul, Diabetic neuropathy, painful E11.40 [facility] [address] [facility] [id number] [address] [place] [address] Jul, Type 2 diabetes mellitus wit h complication E11.8 [facility] [address] [facility] [id number] [address] [place] [address] Jun, Diabetic neuropathy, painful E11.40 [facility] [address] [facility] [id number] [address] [place] [address] Jun, [facility] [address] [facility] [id number] [address] [place] [address] Jun, Type 2 diabetes mellitus wit h complication E11.8 ; Other viral agents as the cause of diseases classified elsewhere B97.89 ; Acute upper respiratory infection, unspecified J06.9 ; Acute recurrent maxillary sinusitis J01.01 ; Sore throat J02.9 and Headache R51 [facility] [address] [facility] [id number] [address] [place] [address] Jun, Right lower quadrant abdomin al pain R10.31 and Type 2 diabetes mellitus with complication E11.8 [facility] [address] [facility] [id number] [address] [place] [address] May, Diabetic neuropathy, painful E11.40 [facility] [address] [facility] [id number] [address] [place] [address] 06 May, 2017 COPD exacerbation J44.1 and Type 2 diabetes mellitus with complication E11.8 [facility] [address] [place] [id number] [address] [place] [address] Apr, Diabetic neuropathy, painful E11.40 [place] [address] [address] Apr, Diabetic neuropathy, painful E11.40 [facility] [address] [address] Mar, Bronchitis J40 [place] [address] [address] January, Type 2 diabetes mellitus wit h complication E11.8 ; Diabetic neuropathy, painful E11.40 ; Impotence N52.9 ; Coronary atherosclerosis due to lipid rich plaque I25.83 ; 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 [address] [place] [id number] [place] [id number] Oct, [place] [address] [address] Oct, Acute right-sided weakness M 62.89 and Slurring of speech R47.81 [place] [address] [place] [id number] [address] [place] [address] Sep, Type 2 diabetes mellitus wit h complication E11.8 ; Diabetic neuropathy, painful E11.40 ; Impotence N52.9 ; Coronary atherosclerosis due to lipid rich plaque I25.83 ; [facility] current use of insulin Z79.4 ; Interstitial lung disease J84.9 ; Hypoxia R09.02 ; Essential hypertension I10 and Gastroesophageal reflux disease without esophagitis K21.9 [facility] [address] [facility] [id number] [address] [place] [address] Sep, Bronchitis J40 [facility] [address] [facility] [id number] [address] [place] [address] Aug, Gastroenteritis and colitis, viral A08.4 [facility] [address] [facility] [id number] [address] [place] [address] Aug, [facility] [address] [place] [id number] [address] [place] [address] Jun, Type 2 diabetes mellitus wit h complication E11.8 ; Diabetic neuropathy, painful E11.40 ; Impotence N52.9 ; Coronary atherosclerosis due to lipid rich plaque I25.83 ; 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 ; Interstitial lung disease J84.9 ; Hypoxia R09.02 and Essential hypertension I10 [facility] [id number] [place] [address] 30 May, 2016 Bronchitis J40 [facility] [address] [facility] [id number] [address] [place] [address] 29 May, 2016 [facility] [address] [facility] [id number] [address] [place] [address] May, Pain of right upper extremit y M79.601 [place] [address] [facility] [id number] [address] [place] [address] May, [place] [address] [facility] [id number] [address] [place] [address] 15 May, 2016 [facility] [address] [facility] [id number] [address] [place] [address] 07 May, 2016 Right hand pain M79.641 [facility] [address] [facility] [id number] [address] [place] [address] Apr, [facility] [address] [place] [id number] [address] [place] [address] Apr, [place] [address] [facility] [id number] [address] [place] [address] Mar, [facility] [address] [facility] [id number] [address] [place] [address] Mar, Essential hypertension I10 [facility] [address] [facility] [id number] [address] [place] [address] Feb, [place] [address] [place] [id number] [address] [place] [address] Feb, Interstitial lung disease J8 4.9 and Bronchitis J40 [place] [address] [facility] [id number] [address] [place] [address] Feb, [place] [address] [place] [id number] [address] [place] [address] Feb, Type 2 diabetes mellitus wit h complication E11.8 ; Impotence N52.9 ; Coronary atherosclerosis due to lipid rich plaque I25.83 ; [facility] current use of insulin Z79.4 and Diabetic neuropathy, painful E11.40 [place] [address] [facility] [id number] [address] [place] [address] January, [place] [address] [place] [id number] [address] [place] [address] January, Arm paresthesia, right R20.2 and Pain of right upper extremity M79.601 [place] [address] [place] [id number] [address] [place] [address] Dec, Lumbar strain S39.012A [place] [address] [facility] [id number] [address] [place] [address] Nov, Diabetic neuropathy, painful E11.40 ; Respiratory bronchiolitis interstitial lung disease J84.115 ; Pain of right upper extremity M79.601 and Arm paresthesia, right R20.2 [place] [address] [facility] [id number] [address] [place] [address] Nov, Diabetic neuropathy, painful E11.40 [place] [address] [address] Sep, Type 2 diabetes mellitus wit h complication E11.8 ; Impotence N52.9 ; Coronary atherosclerosis due to lipid rich plaque I25.83 ; 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 ; Diabetic neuropathy, painful E11.40 ; Chest pain R07.9 and Restless leg G25.[address] [address] Sep, [address] [address] Jul, COPD (chronic obstructive pu lmonary disease) with acute bronchitis J44.[address] [address] Jun, Abdominal pain R10.9 ; Famil y history of colon cancer Z80.0 and Diverticulitis K57.[address] [address] Jun, Abdominal pain R10.9 and Div erticulitis K57.[address] [address] Apr, Diabetes with other specifie d manifestations, type II or unspecified type, not stated as uncontrolled 250.80 ; Coronary atherosclerosis of unspecified type of vessel, seminole or graft 414.00 ; Unspecified essential hypertension 401.9 ; Impotence of organic origin 607.84 ; Sleep apnea 780.57 and Interstitial lung disease 515 [place] [address] [address] Dec, [address] [address] Dec, [address] [address] Nov, [address] [address] Nov, [facility] [address] [id number] [address] [place] [address], [place] [address] 23 Nov, 2014 [facility] [address] [id number] [address] [place] [address], [place] [address] 23 Nov, 2014 [facility] [address] [id number] [address] [place] [address], [place] [address] Nov, [facility] [address] [id number] [address] [place] [address], [place] [address] Nov, [facility] [address] [id number] [address] [place] [address], [place] [address] Nov, [facility] [address] [id number] [address] [place] [address], [place] [address] Nov, [facility] [address] [id number] [address] [place] [address], [place] [address] Nov, [facility] [address] [id number] [address] [place] [address], [place] [address] Nov, [facility] [address] [id number] [address] [place] [address], [place] [address] Oct, [facility] [address] [id number] [address] [place] [address], [place] [address] Oct, 2014 [facility] [address] [id number] [address] [place] [address] Oct, 2014 [facility] [address] [id number] [address] [place] [address] Oct, 2014 [facility] [address] [id number] [address] [place] [address], [place] [address] Oct, 2014 [facility] [address] [id number] [address] [place] [address], [place] [address] Oct, 2014 [facility] [address] [id number] [address] [place] [address] Oct, 2014 [facility] [address] [id number] [address] [place] [address] 04 Oct, 2014 [facility] [address] [id number] [address] [place] [address], [place] [address] Oct, 2014 [facility] [address] [id number] [address] [place] [address], [place] [address] Oct, 2014 [facility] [address] [id number] [address] [place] [address], [place] [address] Oct, 2014 [facility] [address] [id number] [address] [place] [address], [place] [address] Jul, [facility] [address] [id number] [address] [place] [address], [place] [address] Jul, [facility] [address] [id number] [address] [place] [address], [place] [address] Jun, [facility] [address] [id number] [address] [place] [address], [place] [address] 29 Jun, 2014 [facility] [address] [id number] [address] [place] [address], [place] [address] 17 Jun, 2014 [facility] [address] [id number] [address] [place] [address], [place] [address] 17 Jun, 2014 [facility] [address] [id number] [address] [place] [address], [place] [address] 15 Jun, 2014 [facility] [address] [id number] [address] [place] [address], [place] [address] 15 Jun, 2014 [facility] [address] [id number] [address] [place] [address] 14 Jun, 2014 [facility] [address] [id number] [address] [place] [address], [place] [address] 14 Jun, 2014 [facility] [address] [id number] [address] [place] [address], [place] [address] 13 Jun, 2014 [facility] [address] [id number] [address] [place] [address] 13 Jun, 2014 [facility] [address] [id number] [address] [place] [address], [place] [address] 08 Jun, 2014 [facility] [address] [id number] [address] [place] [address], [place] [address] Jun, [facility] [address] [id number] [address] [place] [address], [place] [address] Jun, [facility] [address] [id number] [address] [place] [address], [place] [address] Jun, [facility] [address] [id number] [address] [place] [address], [place] [address] 30 May, 2014 [facility] [address] [id number] [address] [place] [address], [place] [address] 30 May, 2014 [facility] [address] [id number] [address] [place] [address], [place] [address] May, [facility] [address] [id number] [address] [place] [address], [place] [address] May, [facility] [address] [id number] [address] [place] [address], [place] [address] May, [facility] [address] [id number] [address] [place] [address], [place] [address] May, [facility] [address] [id number] [address] [place] [address], [place] [address] Apr, [facility] [address] [id number] [address] [place] [address], [place] [address] Apr, [facility] [address] [id number] [address] [place] [address], [place] [address] Apr, [facility] [address] [id number] [address] [place] [address], [place] [address] Apr, [facility] [address] [id number] [address] [place] [address], [place] [address] Apr, [facility] [address] [id number] [address] [place] [address], [place] [address] Apr, [facility] [address] [id number] [facility] [place] [address] Apr, [facility] [address] [id number] [address] [place] [address], [place] [address] Apr, [facility] [address] [id number] [address] [place] [address], [place] [address] Apr, [facility] [address] [id number] [address] [place] [address], [place] [address] Apr, [facility] [address] [id number] [address] [place] [address], [place] [address] Apr, [facility] [address] [id number] [address] [place] [address], [place] [address] Apr, [facility] [address] [id number] [address] [place] [address], [place] [address] Mar, [facility] [address] [id number] [address] [place] [address], [place] [address] Mar, [facility] [address] [id number] [address] [place] [address], [place] [address] Mar, [facility] [address] [id number] [address] [place] [address], [place] [address] Mar, [facility] [address] [id number] [address] [place] [address], [place] [address] Mar, [facility] [address] [id number] [address] [place] [address], [place] [address] Mar, [facility] [address] [id number] [address] [place] [address], [place] [address] Mar, [facility] [address] [id number] [address] [place] [address], [place] [address] Mar, [facility] [address] [id number] [address] [place] [address], [place] [address] Mar, [facility] [address] [id number] [facility] [place] [address] Mar, [facility] [address] [id number] [facility] [place] [address] Mar, [facility] [address] [id number] [facility] [place] [address] Feb, [facility] [address] [id number] [address] [place] [address], [place] [address] Feb, [facility] [address] [id number] [address] [place] [address], [place] [address] Feb, [facility] [address] [id number] [address] [place] [address], [place] [address] Feb, [facility] [address] [id number] [address] [place] [address], [place] [address] Feb, [facility] [address] [id number] [address] [place] [address], [place] [address] Feb, [facility] [address] [id number] [address] [place] [address], [place] [address] Feb, [facility] [address] [id number] [address] [place] [address], [place] [address] Feb, [facility] [address] [id number] [address] [place] [address], [place] [address] Feb, [facility] [address] [id number] [address] [place] [address], [place] [address] Feb, [facility] [address] [id number] [address] [place] [address], [place] [address] January, [facility] [address] [id number] [address] [place] [address], [place] [address] January, [facility] [address] [id number] [address] [place] [address], [place] [address] January, [facility] [address] [id number] [address] [place] [address], [place] [address] January, [facility] [address] [id number] [address] [place] [address], [place] [address] January, [facility] [address] [id number] [address] [place] [address], [place] [address] January, [facility] [address] [id number] [address] [place] [address], [place] [address] January, [facility] [address] [id number] [address] [place] [address], [place] [address] January, [facility] [address] [id number] [address] [place] [address], [place] [address] January, [facility] [address] [id number] [address] [place] [address], [place] [address] January, [facility] [address] [id number] [address] [place] [address], [place] [address] January, [facility] [address] [id number] [address] [place] [address], [place] [address] January, [facility] [address] [id number] [address] [place] [address], [place] [address] January, [facility] [address] [id number] [address] [place] [address], [place] [address] January, [facility] [address] [id number] [address] [place] [address], [place] [address] January, [facility] [address] [id number] [address] [place] [address], [place] [address] January, [facility] [address] [id number] [address] [place] [address], [place] [address] Dec, [facility] [address] [id number] [address] [place] [address], [place] [address] Dec, [facility] [address] [id number] [address] [place] [address], [place] [address] Dec, [facility] [address] [id number] [address] [place] [address], [place] [address] Dec, [facility] [address] [id number] [address] [place] [address], [place] [address] Dec, [facility] [address] [id number] [address] [place] [address], [place] [address] Dec, [facility] [address] [id number] [address] [place] [address], [place] [address] Dec, [facility] [address] [id number] [address] [place] [address], [place] [address] Dec, [facility] [address] [id number] [address] [place] [address], [place] [address] Dec, [facility] [address] [id number] [address] [place] [address], [place] [address] Dec, [facility] [address] [id number] [address] [place] [address], [place] [address] Nov, [facility] [address] [id number] [address] [place] [address], [place] [address] Nov, [facility] [address] [id number] [address] [place] [address], [place] [address] Oct, [facility] [address] [id number] [address] [place] [address], [place] [address] Oct, [facility] [address] [id number] [address] [place] [address], [place] [address] Oct, [facility] [address] [id number] [address] [place] [address], [place] [address] Sep, [facility] [address] [id number] [address] [place] [address], [place] [address] Sep, [facility] [address] [id number] [address] [place] [address], [place] [address] Sep, [facility] [address] [id number] [address] [place] [address], [place] [address] Sep, [facility] [address] [id number] [address] [place] [address], [place] [address] Sep, [facility] [address] [id number] [address] [place] [address], [place] [address] Sep, [facility] [address] [id number] [address] [place] [address], [place] [address] Sep, [facility] [address] [id number] [address] [place] [address], [place] [address] Sep, [facility] [address] [id number] [address] [place] [address], [place] [address] Sep, [facility] [address] [id number] [address] [place] [address], [place] [address] Sep, [facility] [address] [id number] [address] [place] [address], [place] [address] Sep, [facility] [address] [id number] [address] [place] [address], [place] [address] Sep, [facility] [address] [id number] [address] [place] [address], [place] [address] Aug, [facility] [address] [id number] [address] [place] [address], [place] [address] Aug, [facility] [address] [id number] [address] [place] [address], [place] [address] Aug, [facility] [facility] [address] [id number] [address] [place] [address], [place] [address] Aug, [facility] [address] [id number] [address] [place] [address], [place] [address] Jul, [facility] [address] [id number] [address] [place] [address], [place] [address] Jul, [facility] [address] [id number] [address] [place] [address], [place] [address] Jun, [facility] [address] [id number] [place] [address] Jun, [facility] [address] [id number] [address] [place] [address], [place] [address] Jun, [facility] [address] [id number] [address] [place] [address], [place] [address] Jun, [facility] [address] [id number] [address] [place] [address], [place] [address] Jun, [facility] [address] [id number] [address] [place] [address] Jun, [facility] [address] [id number] [address] [place] [address], [place] [address] Jun, [facility] [address] [id number] [address] [place] [address] Jun, [facility] [address] [id number] [address] [place] [address], [place] [address] 24 May, 2013 [facility] [address] [id number] [address] [place] [address], [place] [address] 23 May, 2013 [facility] [address] [id number] [address] [place] [address], [place] [address] 18 May, 2013 [facility] [address] [id number] [address] [place] [address], [place] [address] 13 May, 2013 [facility] [address] [id number] [address] [place] [address], [place] [address] 11 May, 2013 [facility] [address] [id number] [address] [place] [address] 06 May, 2012 [facility] [address] [id number] [address] [place] [address], [place] [address] 03 May, 2013 [facility] [address] [id number] [address] [place] [address], [place] [address] 30 Apr, 2013 [facility] [address] [id number] [address] [place] [address], [place] [address] Apr, [facility] [address] [id number] [address] [place] [address], [place] [address] Apr, [facility] [address] [id number] [address] [place] [address], [place] [address] Apr, [facility] [address] [id number] [address] [place] [address], [place] [address] Apr, [facility] [address] [id number] [address] [place] [address], [place] [address] Apr, [facility] [address] [id number] [address] [place] [address], [place] [address] Apr, [facility] [address] [id number] [address] [place] [address], [place] [address] Mar, [facility] [address] [id number] [address] [place] [address], [place] [address] Mar, [facility] [address] [id number] [address] [place] [address], [place] [address] Mar, [facility] [address] [id number] [address] [place] [address], [place] [address] Mar, [facility] [address] [id number] [address] [place] [address], [place] [address] Mar, [facility] [address] [id number] [address] [place] [address], [place] [address] Mar, [facility] [address] [id number] [address] [place] [address], [place] [address] Mar, [facility] [address] [id number] [address] [place] [address], [place] [address] Mar, [facility] [address] [id number] [address] [place] [address], [place] [address] Feb, [facility] [address] [id number] [address] [place] [address], [place] [address] Feb, [facility] [address] [id number] [address] [place] [address], [place] [address] Feb, [facility] [address] [id number] [address] [place] [address], [place] [address] January, [facility] [address] [id number] [address] [place] [address], [place] [address] January, [facility] [address] [id number] [address] [place] [address], [place] [address] January, [facility] [address] [id number] [address] [place] [address], [place] [address] January, [facility] [address] [id number] [address] [place] [address], [place] [address] January, [facility] [address] [id number] [address] [place] [address], [place] [address] January, [facility] [address] [id number] [address] [place] [address], [place] [address] January, [facility] [address] [id number] [address] [place] [address], [place] [address] January, [facility] [address] [id number] [address] [place] [address], [place] [address] Dec, [facility] [address] [id number] [address] [place] [address], [place] [address] Dec, [facility] [address] [id number] [address] [place] [address], [place] [address] Dec, [facility] [address] [id number] [address] [place] [address], [place] [address] Dec, [facility] [address] [id number] [address] [place] [address], [place] [address] Dec, [facility] [address] [id number] [address] [place] [address], [place] [address] Nov, [facility] [address] [id number] [address] [place] [address], [place] [address] Nov, [facility] [address] [id number] [address] [place] [address], [place] [address] 19 Nov, 2012 [facility] [address] [id number] [address] [place] [address], [place] [address] 18 Nov, 2012 [facility] [address] [id number] [address] [place] [address], [place] [address] 18 Nov, 2012 [facility] [address] [id number] [address] [place] [address], [place] [address] 14 Nov, 2012 [facility] [address] [id number] [address] [place] [address], [place] [address] 11 Nov, 2012 [facility] [address] [id number] [address] [place] [address], [place] [address] 11 Nov, 2012 [facility] [address] [id number] [address] [place] [address], [place] [address] 21 Oct, 2012 [facility] [address] [id number] [address] [place] [address], [place] [address] 21 Oct, 2012 [facility] [address] [id number] [address] [place] [address], [place] [address] 12 Oct, 2012 [facility] [address] [id number] [address] [place] [address], [place] [address] 08 Oct, 2012 [facility] [address] [id number] [address] [place] [address], [place] [address] 07 Oct, 2012 [facility] [address] [id number] [address] [place] [address], [place] [address] 07 Oct, 2012 [facility] [address] [id number] [address] [place] [address], [place] [address] 05 Oct, 2012 [facility] [address] [id number] [address] [place] [address], [place] [address] 04 Oct, 2012 [facility] [address] [id number] [address] [place] [address], [place] [address] 04 Oct, 2012 [facility] [address] [id number] [address] [place] [address], [place] [address] Sep, [facility] [address] [id number] [address] [place] [address], [place] [address] Sep, [facility] [address] [id number] [address] [place] [address], [place] [address] Sep, [facility] [address] [id number] [address] [place] [address], [place] [address] Sep, [facility] [address] [id number] [address] [place] [address], [place] [address] Sep, [facility] [address] [id number] [address] [place] [address], [place] [address] Sep, [facility] [address] [id number] [address] [place] [address], [place] [address] Aug, [facility] [address] [id number] [address] [place] [address], [place] [address] Aug, [facility] [address] [id number] [address] [place] [address], [place] [address] Aug, [facility] [address] [id number] [address] [place] [address], [place] [address] Aug, [facility] [address] [id number] [address] [place] [address], [place] [address] Aug, [facility] [address] [id number] [address] [place] [address], [place] [address] Aug, [facility] [address] [id number] [address] [place] [address], [place] [address] Aug, [facility] [address] [id number] [address] [place] [address], [place] [address] Aug, [facility] [address] [id number] [address] [place] [address], [place] [address] Aug, [facility] [address] [id number] [address] [place] [address], [place] [address] 30 Jul, 2012 [facility] [address] [id number] [address] [place] [address] Jul, [facility] [address] [facility] [id number] [address] [place] [address] Jul, [facility] [address] [facility] [id number] [address] [place] [address] Jul, [facility] [address] [facility] [id number] [address] [place] [address] Nov, [facility] [address] [facility] [id number] [address] [place] [address] Sep, [facility] [address] [facility] [id number] [address] [place] [address] Aug, [facility] [address] [facility] [id number] [address] [place] [address] Aug, [facility] [address] [facility] [id number] [address] [place] [address] Aug, [facility] [address] [facility] [id number] [address] [place] [address] Jul, IMMUNIZATIONS No Known Immunizations SOCIAL HISTORY [...]
--- OUTSIDE RECORDS SUMMARY | 2020-01-01 11:05 | XMS REPORT ---
Author Author Miguel Freeman Doctor Organization [facility] Address Unknown Phone Unavailable Care Team Providers Care Commercial Loan Administrator Name Role Phone Migration, Doctor Unavailable Unavailable PROBLEMS Type Condition ICD9-CM Code YEE30-CV Code Onset Dates Condition S tatus SNOMED Code Problem Neuropathy G62.9 Active 709493296 Problem Essential hypertension I10 Active 32234176 Problem [facility]FP current use of insulin Z79.4 Active 663664305 Problem Abdominal pain R10.9 Active 14775 001 Problem Change in bowel habit R19.4 Active 78067961 Problem Coronary atherosclerosis due to lipid rich plaque I25.83 Active 22003091 Problem Type 2 diabetes mellitus with complication E11.8 Active 75675632 Problem Impotence N52.9 Active 189371110 Problem Family history of colon cancer Z80.0 Active 127714507 Problem Diabetic neuropathy, painful E11.40 A ctive 294697672 Problem Arm paresthesia, right R20.2 Active 24844754 Problem Gastroesophageal reflux disease without esophagitis K21.9 Active 102722004 Problem Drug abuse, opioid type F11.10 Active 4532187 Problem COPD exacerbation J44.1 Active 19 0074834 Problem Obstructive sleep apnea syndrome G47.33 Active 85717521 Problem Diverticulitis K57.92 Active 13067 6006 Problem Pain of right upper extremity M79.601 Active 682163389 Problem Respiratory bronchiolitis interstitial lung disease J84.115 Active 426238617 Problem Hypoxia R09.02 Active 050096212 Problem Interstitial lung disease J84.9 Acti ve [id number] ALLERGIES No Information ENCOUNTERS Encounter Location Date Diagnosis [facility] [address] [id number] [place] [address] Aug, [facility] [address] [id number] [place] [address] Aug, Diabetic neuropathy, painful E11.40 ; In terstitial lung disease J84.9 ; Chronic cough R05 ; Type 2 diabetes mellitus with complication E11.8 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 [facility] [address] [address] [id number] [place] [address] Jul, [facility] [address] [address] Jul, [facility] [address] [address] Jul, Diabetic neuropathy, painful E11.40 [place] [address] [address] Jul, Type 2 diabetes mellitus with complicati on E11.8 [place] [address] [address] Jun, Diabetic neuropathy, painful E11.40 [place] [address] [address] Jun, [facility] [address] [facility] [place] [id number] [place] [address] Jun, Type 2 diabetes mellitus wit h complication E11.8 ; Other viral agents as the cause of diseases classified elsewhere B97.89 ; Acute upper respiratory infection, unspecified J06.9 ; Acute recurrent maxillary sinusitis J01.01 ; Sore throat J02.9 and Headache R51 [place] [address] [address] Jun, Right lower quadrant abdominal pain R10. 31 and Type 2 diabetes mellitus with complication E11.8 [place] [address] [address] May, Diabetic neuropathy, painful E11.40 [place] [address] [address] May, COPD exacerbation J44.1 and Type 2 diabe chidi mellitus with complication E11.8 [place] [address] [address] Apr, Diabetic neuropathy, painful E11.40 [place] [address] [address] Apr, Diabetic neuropathy, painful E11.40 [facility] [address] [place] [id number] [address] [place] [address] Mar, Bronchitis J40 [place] [address] [address] January, Type 2 diabetes mellitus with complicati on E11.8 ; Diabetic neuropathy, painful E11.40 ; Impotence N52.9 ; Coronary atherosclerosis due to lipid rich plaque I25.83 ; 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 ; Interstitial lung disease J84.9 ; Hypoxia R09.02 ; Essential hypertension I10 ; Gastroesophageal reflux disease without esophagitis K21.9 ; Left upper arm pain M79.622 and Cervical spinal stenosis M48.02 [facility] [place] [id number] [place] [address] January, Viral gastroenteritis A08.[address] [address] Dec, Diabetic neuropathy, painful E11.40 [place] [address] [id number] Oct, [address] [address] Oct, Acute right-sided weakness M62.89 and Sl urring of speech R47.[address] [address] Sep, Type 2 diabetes mellitus with complicati on E11.8 ; Diabetic neuropathy, painful E11.40 ; Impotence N52.9 ; Coronary atherosclerosis due to lipid rich plaque I25.83 ; 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 ; Interstitial lung disease J84.9 ; Hypoxia R09.02 ; Essential hypertension I10 and Gastroesophageal reflux disease without esophagitis K21.9 [facility] [place] [id number] [place] [address] Sep, Bronchitis J40 [facility] [address] [facility] [place] [id number] [address] [place] [address] Aug, Gastroenteritis and colitis, viral A08.4 [facility] [address] [address] Aug, [facility] [address] [address] Jun, Type 2 diabetes mellitus with complicati on E11.8 ; Diabetic neuropathy, painful E11.40 ; Impotence N52.9 ; Coronary atherosclerosis due to lipid rich plaque I25.83 ; [facility]FP current use of insulin Z79.4 ; Interstitial lung disease J84.9 ; Hypoxia R09.02 and Essential hypertension I10 [facility] [address] [address] 30 May, 2016 Bronchitis J40 [facility] [address] [address] May, [facility] [address] [address] May, Pain of right upper extremity M79.601 [place] [address] [address] May, [facility] [address] [address] May, [place] [address] [address] May, Right hand pain M79.641 [facility] [address] [address] Apr, [facility] [address] [address] Apr, [place] [address] [address] Mar, [facility] [address] [address] Mar, Essential hypertension I10 [place] [address] [address] Feb, [place] [address] [address] Feb, Interstitial lung disease J84.9 and Bron chitis J40 [place] [address] [address] Feb, [place] [address] [address] Feb, Type 2 diabetes mellitus with complicati on E11.8 ; Impotence N52.9 ; Coronary atherosclerosis due to lipid rich plaque I25.83 ; 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 and Diabetic neuropathy, painful E11.40 [place] [address] [address] January, [place] [address] [address] January, Arm paresthesia, right R20.2 and Pain of right upper extremity M79.601 [place] [address] [address] Dec, Lumbar strain S39.012A [place] [address] [address] Nov, Diabetic neuropathy, painful E11.40 ; Re spiratory bronchiolitis interstitial lung disease J84.115 ; Pain of right upper extremity M79.601 and Arm paresthesia, right R20.2 [place] [address] [address] Nov, Diabetic neuropathy, painful E11.40 [place] [address] [address] Sep, Type 2 diabetes mellitus with complicati on E11.8 ; Impotence N52.9 ; Coronary atherosclerosis due to lipid rich plaque I25.83 ; 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 ; Diabetic neuropathy, painful E11.40 ; Chest pain R07.9 and Restless leg G25.81 [facility] [address] [address] Sep, [facility] [address] [address] Jul, COPD (chronic obstructive pulmonary dise ase) with acute bronchitis J44.0 [place] [address] [address] Jun, Abdominal pain R10.9 ; Family history of colon cancer Z80.0 and Diverticulitis K57.92 [place] [address] [address] Jun, Abdominal pain R10.9 and Diverticulitis K57.92 [place] [address] [address] Apr, Diabetes with other specified manifestat ions, type II or unspecified type, not stated as uncontrolled 250.80 ; Coronary atherosclerosis of unspecified type of vessel, iqugmiut or graft 414.00 ; Unspecified essential hypertension 401.9 ; Impotence of organic origin 607.84 ; Sleep apnea 780.57 and Interstitial lung disease 515 [place] [address] [address] Dec, [place] [address] [address] Dec, [place] [address] [address] Nov, [facility] [address] [address] Nov, [facility] [address] [address] Nov, [facility] [address] [address] Nov, [facility] [address] [address] Nov, [facility] [address] [address] Nov, [facility] [place] [facility] [address] [id number] [place] [address] Nov, [facility] [place] [facility] [address] [id number] [place] [address] Nov, [facility] [place] [facility] [address] [id number] [place] [address] Nov, 2014 [facility] [place] [facility] [address] [id number] [place] [address] Nov, 2014 [facility] [place] [facility] [address] [id number] [place] [address] Oct, 2014 [facility] [place] [facility] [address] [id number] [place] [address] Oct, 2014 [facility] [place] [facility] [address] [id number] [place] [address] Oct, 2014 [facility] [place] [facility] [address] [id number] [place] [address] Oct, 2014 [facility] [place] [facility] [address] [id number] [place] [address] Oct, 2014 [facility] [place] [facility] [address] [id number] [place] [address] Oct, 2014 [facility] [place] [facility] [address] [id number] [place] [address] Oct, 2014 [facility] [place] [facility] [address] [id number] [place] [address] Oct, 2014 [facility] [place] [facility] [address] [id number] [place] [address] Oct, 2014 [facility] [place] [facility] [address] [id number] [place] [address] Oct, 2014 [facility] [place] [facility] [address] [id number] [place] [address] Oct, 2014 [facility] [place] [facility] [address] [id number] [place] [address] Jul, [facility] [place] [facility] [address] [id number] [place] [address] Jul, 2013 [facility] [place] [facility] [address] [id number] [place] [address] Jun, 2013 [facility] [place] [facility] [address] [id number] [place] [address] 29 Jun, 2013 [facility] [place] [facility] [address] [id number] [place] [address] Jun, 2013 [facility] [place] [facility] [address] [id number] [place] [address] 17 Jun, 2013 [facility] [place] [facility] [address] [id number] [place] [address] 15 Jun, 2014 [facility] [place] [facility] [address] [id number] [place] [address] 15 Jun, 2013 [facility] [place] [facility] [address] [id number] [place] [address] 14 Jun, 2013 [facility] [place] [facility] [address] [id number] [place] [address] 14 Jun, 2013 [facility] [place] [facility] [address] [id number] [place] [address] 13 Jun, 2014 [facility] [place] [facility] [address] [id number] [place] [address] 13 Jun, 2013 [facility] [place] [facility] [address] [id number] [place] [address] 08 Jun, 2013 [facility] [place] [facility] [address] [id number] [place] [address] 08 Jun, 2013 [facility] [place] [facility] [address] [id number] [place] [address] 07 Jun, 2013 [facility] [place] [facility] [address] [id number] [place] [address] 07 Jun, 2013 [facility] [place] [facility] [address] [id number] [place] [address] 30 May, 2013 [facility] [place] [facility] [address] [id number] [place] [address] 30 May, 2013 [facility] [place] [facility] [address] [id number] [place] [address] May, [facility] [place] [facility] [address] [facility] [place] [id number] [place] [address] May, [facility] [place] [facility] [address] [id number] [place] [place] [address] May, [facility] [place] [facility] [address] [facility] [place] [id number] [place] [place] [address] May, [facility] [place] [facility] [address] [facility] [place] [id number] [place] [address] Apr, [facility] [place] [facility] [address] [facility] [place] [id number] [place] [address] Apr, [facility] [place] [facility] [address] [id number] [place] [address] Apr, [facility] [place] [facility] [address] [id number] [place] [address] Apr, [facility] [place] [facility] [address] [id number] [place] [address] Apr, [facility] [place] [facility] [address] [id number] [place] [address] Apr, [facility] [place] [facility] [address] [id number] [place] [address] Apr, [facility] [place] [facility] [address] [id number] [place] [address] Apr, [facility] [place] [facility] [address] [id number] [place] [address] Apr, [facility] [place] [facility] [address] [id number] [place] [address] Apr, [facility] [place] [facility] [address] [id number] [place] [address] Apr, [facility] [place] [facility] [address] [id number] [place] [address] Apr, [facility] [place] [facility] [address] [id number] [place] [address] Mar, [facility] [place] [facility] [address] [id number] [place] [address] Mar, [facility] [place] [facility] [address] [facility] [place] [id number] [place] [address] Mar, [facility] [place] [facility] [address] [facility] [place] [id number] [place] [address] Mar, [facility] [place] [facility] [address] [facility] [place] [id number] [place] [place] [address] Mar, [facility] [place] [facility] [address] [facility] [place] [id number] [place] [address] Mar, [facility] [place] [facility] [address] [id number] [place] [address] Mar, [facility] [place] [facility] [address] [id number] [place] [address] Mar, [facility] [place] [facility] [address] [id number] [place] [address] Mar, [facility] [place] [facility] [address] [facility] [place] [id number] [place] [address] Mar, [facility] [place] [facility] [address] [id number] [place] [address] Mar, [facility] [place] [facility] [address] [id number] [place] [address] Feb, [facility] [place] [facility] [address] [facility] [place] [id number] [place] [address] Feb, [facility] [place] [facility] [address] [facility] [place] [id number] [place] [address] Feb, [facility] [place] [facility] [address] [id number] [place] [address] Feb, [facility] [place] [facility] [address] [id number] [place] [address] Feb, [facility] [place] [facility] [address] [id number] [place] [address] Feb, [facility] [place] [facility] [address] [id number] [place] [address] Feb, [facility] [place] [facility] [address] [id number] [place] [address] Feb, [facility] [place] [facility] [address] [id number] [place] [address] Feb, [facility] [place] [facility] [address] [id number] [place] [address] Feb, [facility] [place] [facility] [address] [facility] [place] [id number] [place] [address] January, [facility] [place] [facility] [address] [id number] [place] [address] January, [facility] [place] [facility] [address] [id number] [place] [address] January, [facility] [place] [facility] [address] [id number] [place] [address] January, [facility] [place] [facility] [address] [id number] [place] [address] January, [facility] [place] [facility] [address] [id number] [place] [address] January, [facility] [place] [facility] [address] [id number] [place] [address] January, [facility] [place] [facility] [address] [id number] [place] [address] January, [facility] [place] [facility] [address] [id number] [place] [address] January, [facility] [place] [facility] [address] [id number] [place] [address] January, [facility] [place] [facility] [address] [id number] [place] [address] January, [facility] [place] [facility] [address] [id number] [place] [address] January, [facility] [place] [facility] [address] [id number] [place] [address] January, [facility] [place] [facility] [address] [id number] [place] [address] January, [facility] [place] [facility] [address] [id number] [place] [address] January, [facility] [place] [facility] [address] [id number] [place] [address] January, [facility] [place] [facility] [address] [id number] [place] [address] Dec, [facility] [place] [facility] [address] [id number] [place] [address] Dec, [facility] [place] [facility] [address] [id number] [place] [address] Dec, [facility] [place] [facility] [address] [id number] [place] [address] Dec, [facility] [place] [facility] [address] [id number] [place] [address] Dec, [facility] [place] [facility] [address] [id number] [place] [address] Dec, [facility] [place] [facility] [address] [id number] [place] [address] Dec, [facility] [place] [facility] [address] [id number] [place] [address] Dec, [facility] [place] [facility] [address] [id number] [place] [address] Dec, [facility] [place] [facility] [address] [id number] [place] [address] Dec, [facility] [place] [facility] [address] [id number] [place] [address] Nov, [facility] [place] [facility] [address] [id number] [place] [address] Nov, [facility] [place] [facility] [address] [id number] [place] [address] Oct, [facility] [place] [facility] [address] [id number] [place] [address] 07 Oct, 2013 [facility] [place] [facility] [address] [id number] [place] [address] Oct, [facility] [place] [facility] [address] [id number] [place] [address] Sep, [facility] [place] [facility] [address] [id number] [place] [address] Sep, [facility] [place] [facility] [address] [id number] [place] [address] Sep, [facility] [place] [facility] [address] [id number] [place] [address] Sep, [facility] [place] [facility] [address] [id number] [place] [address] Sep, [facility] [place] [facility] [address] [id number] [place] [address] Sep, [facility] [place] [facility] [address] [id number] [place] [address] Sep, [facility] [place] [facility] [address] [id number] [place] [address] Sep, [facility] [place] [facility] [address] [id number] [place] [address] Sep, [facility] [place] [facility] [address] [id number] [place] [address] Sep, [facility] [place] [facility] [address] [id number] [place] [address] Sep, [facility] [place] [facility] [address] [id number] [place] [address] Sep, [facility] [place] [facility] [address] [id number] [place] [address] Aug, [facility] [place] [facility] [address] [id number] [place] [address] Aug, [facility] [place] [facility] [address] [id number] [place] [address] Aug, [facility] [place] [facility] [address] [id number] [place] [address] Aug, 2012 [facility] [place] [facility] [address] [id number] [place] [address] Jul, [facility] [place] [facility] [address] [id number] [place] [address] Jul, [facility] [place] [facility] [address] [id number] [place] [address] Jun, [facility] [place] [facility] [address] [id number] [place] [address] Jun, [facility] [place] [facility] [address] [id number] [place] [address] Jun, [facility] [place] [facility] [address] [id number] [place] [address] Jun, [facility] [place] [facility] [address] [id number] [place] [address] Jun, [facility] [place] [facility] [address] [id number] [place] [address] Jun, [facility] [place] [facility] [address] [id number] [place] [address] Jun, [facility] [place] [facility] [address] [id number] [place] [address] Jun, [facility] [place] [facility] [address] [id number] [place] [address] 24 May, 2012 [facility] [place] [facility] [address] [id number] [place] [address] 23 Sep, 2012 [facility] [place] [facility] [address] [id number] [place] [address] 18 Sep, 2012 [facility] [place] [facility] [address] [id number] [place] [address] 13 Sep, 2012 [facility] [place] [facility] [address] [id number] [place] [address] 11 Sep, 2012 [facility] [place] [facility] [address] [id number] [place] [address] May, [facility] [place] [facility] [address] [id number] [place] [address] May, [facility] [place] [facility] [address] [facility] [place] [id number] [place] [place] [address] Apr, [facility] [place] [facility] [address] [id number] [place] [place] [address] Apr, [facility] [place] [facility] [address] [facility] [place] [id number] [place] [address] Apr, [facility] [place] [facility] [address] [id number] [place] [address] Apr, [facility] [place] [facility] [address] [id number] [place] [address] Apr, [facility] [place] [facility] [address] [id number] [place] [place] [address] Apr, [facility] [place] [facility] [address] [id number] [place] [address] Apr, [facility] [place] [facility] [address] [facility] [place] [id number] [place] [address] Mar, [facility] [place] [facility] [address] [id number] [place] [address] Mar, [facility] [place] [facility] [address] [id number] [place] [address] Mar, [facility] [place] [facility] [address] [id number] [place] [address] Mar, [facility] [place] [facility] [address] [facility] [place] [id number] [place] [address] Mar, [facility] [address] [id number] [place] [place] [address] Mar, [facility] [address] [facility] [place] [id number] [facility] [place] [address] Mar, [facility] [address] [id number] [place] [place] [address] Mar, [facility] [address] [id number] [place] [address] 18 Feb, 2013 [facility] [address] [id number] [place] [address] Feb, [facility] [address] [id number] [place] [address] Feb, [facility] [address] [id number] [place] [address] January, [facility] [address] [id number] [place] [address] January, [facility] [address] [id number] [place] [address] January, [facility] [address] [id number] [place] [address] January, [facility] [address] [id number] [place] [address] January, [facility] [address] [id number] [place] [address] January, [facility] [address] [id number] [place] [address] January, [facility] [address] [id number] [place] [address] January, [facility] [address] [id number] [place] [address] Dec, [facility] [address] [id number] [place] [address] Dec, [facility] [address] [id number] [place] [address] Dec, [facility] [address] [id number] [place] [address] Dec, [facility] [address] [id number] [place] [address] Dec, [facility] [address] [id number] [place] [address] Nov, [facility] [address] [id number] [place] [address] 21 Nov, 2012 [facility] [address] [id number] [place] [place] [address] 19 Nov, 2012 [facility] [address] [id number] [place] [address] 18 Nov, 2012 [facility] [address] [id number] [place] [address] 18 Nov, 2012 [facility] [address] [facility] [place] [id number] [place] [address] 14 Nov, 2012 [facility] [address] [id number] [place] [address] 11 Nov, 2012 [facility] [address] [id number] [place] [address] Nov, [facility] [address] [id number] [place] [address] Oct, [facility] [address] [id number] [place] [address] Oct, [facility] [address] [id number] [place] [address] 12 Oct, 2012 [facility] [address] [id number] [place] [address] 08 Oct, 2012 [facility] [address] [id number] [place] [address] 07 Oct, 2012 [facility] [address] [id number] [place] [address] 07 Oct, 2012 [facility] [address] [id number] [place] [address] 05 Oct, 2012 [facility] [address] [id number] [place] [address] 04 Oct, 2012 [facility] [address] [id number] [place] [address] 04 Oct, 2012 [facility] [address] [id number] [place] [address] Sep, [facility] [address] [id number] [place] [address] Sep, [facility] [address] [id number] [place] [address] Sep, [facility] [address] [id number] [place] [address] Sep, [facility] [address] [id number] [place] [address] Sep, [facility] [address] [id number] [place] [address] Sep, [facility] [address] [id number] [place] [address] Aug, [facility] [address] [id number] [place] [address] Aug, [facility] [address] [id number] [place] [address] Aug, [facility] [address] [id number] [place] [address] Aug, [facility] [address] [id number] [place] [address] Aug, [facility] [address] [id number] [place] [address] Aug, [facility] [address] [id number] [place] [address] Aug, [facility] [address] [id number] [place] [address] Aug, [facility] [address] [id number] [place] [address] Aug, [facility] [address] [id number] [place] [address] Jul, [facility] [address] [id number] [place] [address] Jul, [facility] [id number] [place] [address] Jul, [facility] [address] [address] Jul, [facility] [address] [address] Nov, [facility] [address] [address] Sep, [facility] [address] [address] Aug, [facility] [address] [address] Aug, [facility] [address] [address] Aug, [facility] [address] [address] Jul, IMMUNIZATIONS No Known Immunizations SOCIAL HISTORY [...] History Hypostension-medication side effect-[facility] 03/13/16
--- OUTSIDE RECORDS SUMMARY | 2020-01-01 11:06 | XMS REPORT ---
Author Author Miguel MCKEON Organization [facility] Address [address] [place] [address] Care Team Providers Care Cleaning Crew Member Name Role Phone TESSA MCKEON Unavailable PROBLEMS Type Condition ICD9-CM Code WYG22-VU Code Onset Dates Condition S tatus SNOMED Code Problem Neuropathy G62.9 Active 218842434 Problem Essential hypertension I10 Active 45625041 Problem nursing home current use of insulin Z79.4 Active 489868423 Problem Abdominal pain R10.9 Active 99071 001 Problem Change in bowel habit R19.4 Active 35560508 Problem Coronary atherosclerosis due to lipid rich plaque I25.83 Active 05347961 Problem Type 2 diabetes mellitus with complication E11.8 Active 67336434 Problem Impotence N52.9 Active 927066303 Problem Family history of colon cancer Z80.0 Active 595985656 Problem Diabetic neuropathy, painful E11.40 A ctive 556999558 Problem Arm paresthesia, right R20.2 Active 72147978 Problem Gastroesophageal reflux disease without esophagitis K21.9 Active 828434156 Problem Drug abuse, opioid type F11.10 Active 3746901 Problem COPD exacerbation J44.1 Active 19 7150985 Problem Obstructive sleep apnea syndrome G47.33 Active 42063669 Problem Diverticulitis K57.92 Active 30324 6006 Problem Pain of right upper extremity M79.601 Active 991361659 Problem Respiratory bronchiolitis interstitial lung disease J84.115 Active 503547742 Problem Hypoxia R09.02 Active 331318543 Problem Interstitial lung disease J84.9 Acti ve [id number] ALLERGIES No Information ENCOUNTERS Encounter Location Date Diagnosis [facility] [address] [id number] [place] [address] Aug, [facility] [address] [id number] [place] [address] Aug, Diabetic neuropathy, painful E11.40 ; In terstitial lung disease J84.9 ; Chronic cough R05 ; Type 2 diabetes mellitus with complication E11.8 and nursing home current use of insulin Z79.4 [place] [address] [address] Jul, [facility] [address] [address] Jul, [facility] [address] [address] Jul, Diabetic neuropathy, painful E11.40 [place] [address] [address] Jul, Type 2 diabetes mellitus with complicati on E11.8 [place] [address] [address] Jun, Diabetic neuropathy, painful E11.40 [place] [address] [address] Jun, [facility] [address] [facility] [id number] [address] [place] [address] Jun, Type 2 diabetes mellitus wit h complication E11.8 ; Other viral agents as the cause of diseases classified elsewhere B97.89 ; Acute upper respiratory infection, unspecified J06.9 ; Acute recurrent maxillary sinusitis J01.01 ; Sore throat J02.9 and Headache R51 [address] [address] Jun, Right lower quadrant abdominal pain R10. 31 and Type 2 diabetes mellitus with complication E11.8 [place] [address] [address] May, Diabetic neuropathy, painful E11.[address] [address] May, COPD exacerbation J44.1 and Type 2 diabe chidi mellitus with complication E11.8 [place] [address] [address] Apr, Diabetic neuropathy, painful E11.40 [place] [address] [address] Apr, Diabetic neuropathy, painful E11.40 [facility] [place] [address] [address] [place] [id number] [place] [address] Mar, Bronchitis J40 [place] [address] [address] January, Type 2 diabetes mellitus with complicati [...] pain M79.622 and Cervical spinal stenosis M48.02 [facility] [place] [address] [address] January, Viral gastroenteritis A08.[address] [address] Dec, Diabetic neuropathy, painful E11.40 [place] [address] [id number] Oct, [address] [address] Oct, Acute right-sided weakness M62.89 and Sl urring of speech R47.[address] [address] Sep, Type 2 diabetes mellitus with complicati on E11.8 ; Diabetic neuropathy, painful E11.40 ; Impotence N52.9 ; Coronary atherosclerosis due to lipid rich plaque I25.83 ; 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 [id number] [address] [address] Aug, Gastroenteritis and colitis, viral A08.4 [facility] [address] [address] Aug, [facility] [address] [address] Jun, Type 2 diabetes mellitus with complicati on E11.8 ; Diabetic neuropathy, painful E11.40 ; Impotence N52.9 ; Coronary atherosclerosis due to lipid rich plaque I25.83 ; nursing home current use of insulin Z79.4 ; Interstitial lung disease J84.9 ; Hypoxia R09.02 and Essential hypertension I10 [facility] [address] [address] 30 May, 2016 Bronchitis J40 [facility] [address] [address] 29 May, 2016 [facility] [address] [address] 20 May, 2016 Pain of right upper extremity M79.601 [facility] [address] [address] May, [facility] [address] [address] 15 May, 2016 [facility] [address] [address] 07 May, 2016 Right hand pain M79.641 [facility] [address] [address] Apr, [facility] [address] [address] Apr, [facility] [address] [address] Mar, [facility] [address] [address] Mar, Essential hypertension I10 [place] [address] [address] Feb, [place] [address] [address] Feb, Interstitial lung disease J84.9 and Bron chitis J40 [place] [address] [address] Feb, [place] [address] [address] Feb, Type 2 diabetes mellitus with complicati on E11.8 ; Impotence N52.9 ; Coronary atherosclerosis due to lipid rich plaque I25.83 ; nursing home current use of insulin Z79.4 and Diabetic neuropathy, painful E11.40 [place] [address] [address] January, [place] [address] [address] January, Arm paresthesia, right R20.2 and Pain of right upper extremity M79.601 [place] [address] [address] Dec, Lumbar strain S39.012A [place] [address] [address] Nov, Diabetic neuropathy, painful E11.40 ; Re spiratory bronchiolitis interstitial lung disease J84.115 ; Pain of right upper extremity M79.601 and Arm paresthesia, right R20.2 [place] [address] [address] Nov, Diabetic neuropathy, painful E11.40 [place] [address] [address] Sep, Type 2 diabetes mellitus with complicati on E11.8 ; Impotence N52.9 ; Coronary atherosclerosis due to lipid rich plaque I25.83 ; nursing home current use of insulin Z79.4 ; Diabetic neuropathy, painful E11.40 ; Chest pain R07.9 and Restless leg G25.81 [place] [address] [address] Sep, [place] [address] [address] Jul, COPD (chronic obstructive pulmonary dise ase) with acute bronchitis J44.0 [place] [address] [address] Jun, Abdominal pain R10.9 ; Family history of colon cancer Z80.0 and Diverticulitis K57.[address] [address] Jun, Abdominal pain R10.9 and Diverticulitis K57.[address] [address] Apr, Diabetes with other specified manifestat ions, type II or unspecified type, not stated as uncontrolled 250.80 ; Coronary atherosclerosis of unspecified type of vessel, lac vieux or graft 414.00 ; Unspecified essential hypertension 401.9 ; Impotence of organic origin 607.84 ; Sleep apnea 780.57 and Interstitial lung disease 515 [place] [address] [address] Dec, [place] [address] [address] Dec, [place] [address] [address] Nov, [place] [address] [address] Nov, [place] [address] [address] Nov, [address] [address] Nov, [place] [address] [address] Nov, 2014 [facility] [place] [facility] [address] [facility] [id number] [place] [address] Nov, 2014 [facility] [place] [facility] [address] [facility] [id number] [place] [address] Nov, 2014 [facility] [place] [facility] [address] [facility] [id number] [place] [address] Nov, 2014 [facility] [place] [facility] [address] [id number] [place] [address] Nov, 2014 [facility] [place] [facility] [address] [facility] [id number] [place] [address] Nov, 2014 [facility] [place] [facility] [address] [id number] [place] [address] Oct, 2014 [facility] [place] [facility] [address] [id number] [place] [address] Oct, 2014 [facility] [place] [facility] [address] [id number] [place] [address] Oct, 2014 [facility] [place] [facility] [address] [id number] [place] [address] Oct, 2014 [facility] [place] [facility] [address] [id number] [place] [address] Oct, 2014 [facility] [place] [facility] [address] [id number] [place] [address] Oct, 2014 [facility] [place] [facility] [address] [id number] [place] [address] Oct, 2014 [facility] [place] [facility] [address] [id number] [place] [address] Oct, 2014 [facility] [place] [facility] [address] [id number] [place] [address] Oct, 2014 [facility] [place] [facility] [address] [id number] [place] [address] Oct, 2014 [facility] [place] [facility] [address] [id number] [place] [address] Oct, 2014 [facility] [place] [facility] [address] [id number] [place] [address] Jul, 2013 [facility] [place] [facility] [address] [id number] [place] [address] Jul, 2013 [facility] [place] [facility] [address] [id number] [place] [address] 29 Jun, 2013 [facility] [place] [facility] [address] [id number] [place] [address] 29 Jun, 2013 [facility] [place] [facility] [address] [id number] [place] [address] Jun, 2013 [facility] [place] [facility] [address] [id number] [place] [address] 17 Jun, 2013 [facility] [place] [facility] [address] [id number] [place] [address] 15 Jun, 2013 [facility] [place] [facility] [address] [id number] [place] [address] 15 Jun, 2013 [facility] [place] [facility] [address] [id number] [place] [address] 14 Jun, 2013 [facility] [place] [facility] [address] [id number] [place] [address] 14 Jun, 2013 [facility] [place] [facility] [address] [id number] [place] [address] 13 Jun, 2013 [facility] [place] [facility] [address] [id number] [place] [address] 13 Jun, 2013 [facility] [place] [facility] [address] [id number] [place] [address] 08 Jun, 2013 [facility] [place] [facility] [address] [id number] [place] [address] 08 Jun, 2013 [facility] [place] [facility] [address] [id number] [place] [address] 07 Jun, 2013 [facility] [place] [facility] [address] [id number] [place] [address] 07 Jun, 2013 [facility] [place] [facility] [address] [id number] [place] [address] 30 May, 2013 [facility] [place] [facility] [address] [id number] [place] [address] 30 May, 2013 [facility] [place] [facility] [address] [facility] [id number] [place] [address] May, 2013 [facility] [place] [facility] [address] [facility] [id number] [place] [address] May, 2013 [facility] [place] [facility] [address] [facility] [id number] [place] [address] May, 2013 [facility] [place] [facility] [address] [facility] [id number] [place] [address] May, 2013 [facility] [place] [facility] [address] [facility] [id number] [place] [address] Apr, [facility] [place] [facility] [address] [id number] [place] [address] Apr, [facility] [place] [facility] [address] [id number] [place] [address] Apr, [facility] [place] [facility] [address] [facility] [id number] [place] [address] Apr, [facility] [place] [facility] [address] [id number] [place] [address] Apr, [facility] [place] [facility] [address] [facility] [id number] [place] [address] Apr, [facility] [place] [facility] [address] [id number] [place] [address] Apr, [facility] [place] [facility] [address] [facility] [id number] [place] [address] Apr, [facility] [place] [facility] [address] [id number] [place] [address] Apr, [facility] [place] [facility] [address] [facility] [id number] [place] [address] Apr, [facility] [place] [facility] [address] [id number] [place] [address] Apr, [facility] [place] [facility] [address] [facility] [id number] [place] [address] Apr, [facility] [place] [facility] [address] [id number] [place] [address] Mar, [facility] [place] [facility] [address] [facility] [id number] [place] [address] Mar, [facility] [place] [facility] [address] [id number] [place] [address] Mar, [facility] [place] [facility] [address] [facility] [id number] [place] [address] Mar, [facility] [place] [facility] [address] [id number] [place] [address] Mar, [facility] [place] [facility] [address] [id number] [place] [address] Mar, [facility] [place] [facility] [address] [id number] [place] [address] Mar, [facility] [place] [facility] [address] [id number] [place] [address] Mar, [facility] [place] [facility] [address] [facility] [id number] [place] [address] Mar, [facility] [place] [facility] [address] [id number] [place] [address] Mar, [facility] [place] [facility] [address] [id number] [place] [address] Mar, [facility] [place] [facility] [address] [id number] [place] [address] Feb, [facility] [place] [facility] [address] [id number] [place] [address] Feb, [facility] [place] [facility] [address] [id number] [place] [address] Feb, [facility] [place] [facility] [address] [id number] [place] [address] Feb, [facility] [place] [facility] [address] [id number] [place] [address] Feb, [facility] [place] [facility] [address] [id number] [place] [address] Feb, [facility] [place] [facility] [address] [id number] [place] [address] Feb, [facility] [place] [facility] [address] [id number] [place] [address] Feb, [facility] [place] [facility] [address] [id number] [place] [address] Feb, [facility] [place] [facility] [address] [id number] [place] [address] Feb, [facility] [place] [facility] [address] [id number] [place] [address] January, [facility] [place] [facility] [address] [id number] [place] [address] January, [facility] [place] [facility] [address] [id number] [place] [address] January, [facility] [place] [facility] [address] [id number] [place] [address] January, [facility] [place] [facility] [address] [id number] [place] [address] January, [facility] [place] [facility] [address] [id number] [place] [address] January, [facility] [place] [facility] [address] [id number] [place] [address] January, [facility] [place] [facility] [address] [id number] [place] [address] January, [facility] [place] [facility] [address] [id number] [place] [address] January, [facility] [place] [facility] [address] [id number] [place] [address] January, [facility] [place] [facility] [address] [id number] [place] [address] January, [facility] [place] [facility] [address] [id number] [place] [address] January, [facility] [place] [facility] [address] [facility] [id number] [place] [address] January, [facility] [place] [facility] [address] [facility] [id number] [place] [address] January, [facility] [place] [facility] [address] [id number] [place] [address] January, [facility] [place] [facility] [address] [id number] [place] [address] January, [facility] [place] [facility] [address] [facility] [id number] [place] [address] Dec, [facility] [place] [facility] [address] [id number] [place] [address] Dec, [facility] [place] [facility] [address] [id number] [place] [address] Dec, [facility] [place] [facility] [address] [id number] [place] [address] Dec, [facility] [place] [facility] [address] [id number] [place] [address] Dec, [facility] [place] [facility] [address] [id number] [place] [address] Dec, [facility] [place] [facility] [address] [id number] [place] [address] Dec, [facility] [place] [facility] [address] [id number] [place] [address] Dec, [facility] [place] [facility] [address] [facility] [id number] [place] [address] Dec, [facility] [place] [facility] [address] [id number] [place] [address] Dec, [facility] [place] [facility] [address] [id number] [place] [address] Nov, [facility] [place] [facility] [address] [id number] [place] [address] Nov, [facility] [place] [facility] [address] [id number] [place] [address] 07 Oct, 2013 [facility] [place] [facility] [address] [id number] [place] [address] Oct, [facility] [place] [facility] [address] [id number] [place] [address] Oct, [facility] [place] [facility] [address] [id number] [place] [address] Sep, [facility] [place] [facility] [address] [id number] [place] [address] Sep, [facility] [place] [facility] [address] [id number] [place] [address] Sep, [facility] [place] [facility] [address] [id number] [place] [address] Sep, [facility] [place] [facility] [address] [id number] [place] [address] Sep, [facility] [place] [facility] [address] [id number] [place] [address] Sep, [facility] [place] [facility] [address] [id number] [place] [address] Sep, [facility] [place] [facility] [address] [id number] [place] [address] Sep, [facility] [place] [facility] [address] [id number] [place] [address] Sep, [facility] [place] [facility] [address] [id number] [place] [address] Sep, [facility] [place] [facility] [address] [id number] [place] [address] Sep, [facility] [place] [facility] [address] [id number] [place] [address] Sep, [facility] [place] [facility] [address] [id number] [place] [address] Aug, [facility] [place] [facility] [address] [id number] [place] [address] Aug, [facility] [place] [facility] [address] [id number] [place] [address] Aug, 2012 [facility] [place] [facility] [address] [id number] [place] [address] Aug, [facility] [place] [facility] [address] [id number] [place] [address] Jul, [facility] [place] [facility] [address] [id number] [place] [address] Jul, [facility] [place] [facility] [address] [id number] [place] [address] Jun, [facility] [place] [facility] [address] [id number] [place] [address] Jun, [facility] [address] [id number] [place] [address] Jun, [facility] [address] [id number] [place] [address] Jun, [facility] [address] [id number] [place] [address] Jun, [facility] [address] [id number] [place] [address] Jun, [facility] [address] [id number] [place] [address] Jun, [facility] [address] [id number] [place] [address] Jun, [facility] [address] [id number] [place] [address] 24 May, 2012 [facility] [address] [id number] [place] [address] 23 Sep, 2012 [facility] [address] [id number] [place] [address] 18 Sep, 2012 [facility] [address] [id number] [place] [address] 13 Sep, 2012 [facility] [address] [id number] [place] [address] May, [facility] [place] [address] [id number] [place] [address] May, [facility] [address] [facility] [id number] [place] [address] May, [facility] [place] [address] [id number] [place] [address] Apr, [facility] [address] [facility] [id number] [place] [address] Apr, [facility] [place] [address] [facility] [id number] [place] [address] Apr, [facility] [place] [address] [facility] [id number] [place] [address] Apr, [facility] [place] [address] [id number] [place] [address] Apr, [facility] [place] [address] [id number] [place] [address] Apr, [facility] [place] [address] [id number] [place] [address] Apr, [facility] [place] [address] [id number] [place] [address] Mar, [facility] [address] [id number] [place] [address] Mar, [facility] [place] [address] [id number] [place] [address] Mar, [facility] [address] [facility] [id number] [place] [address] Mar, [facility] [address] [id number] [place] [address] Mar, [facility] [address] [facility] [id number] [place] [address] Mar, [facility] [address] [id number] [place] [address] Mar, [facility] [address] [id number] [place] [address] Mar, [facility] [address] [id number] [place] [address] Feb, [facility] [address] [facility] [id number] [place] [address] Feb[facility] [address] [id number] [place] [address] Feb, [facility] [address] [id number] [place] [address] January, [facility] [address] [id number] [place] [address] January, [facility] [address] [id number] [place] [address] January, [facility] [address] [id number] [place] [address] January, [facility] [address] [id number] [place] [address] January, [facility] [address] [id number] [place] [address] January, [facility] [address] [id number] [place] [address] January, [facility] [address] [id number] [place] [address] January, [facility] [address] [id number] [place] [address] Dec, [facility] [address] [id number] [place] [address] Dec, [facility] [address] [id number] [place] [address] Dec, [facility] [address] [id number] [place] [address] Dec, [facility] [address] [id number] [place] [address] Dec, [facility] [address] [facility] [id number] [place] [address] 22 Nov, 2012 [facility] [address] [id number] [place] [address] Nov, [facility] [address] [id number] [place] [address] Nov, [facility] [address] [id number] [place] [address] 18 Nov, 2012 [facility] [address] [id number] [place] [address] 18 Nov, 2012 [facility] [address] [id number] [place] [address] 14 Nov, 2012 [facility] [address] [id number] [place] [address] Nov, [facility] [address] [id number] [place] [address] Nov, [facility] [address] [id number] [place] [address] Oct, [facility] [address] [id number] [place] [address] Oct, [facility] [address] [id number] [place] [address] 12 Oct, 2012 [facility] [address] [id number] [place] [address] 08 Oct, 2012 [facility] [address] [id number] [place] [address] 07 Oct, 2012 [facility] [address] [id number] [place] [address] 07 Oct, 2012 [facility] [address] [id number] [place] [address] 05 Oct, 2012 [facility] [address] [id number] [place] [address] 04 Oct, 2012 [facility] [address] [id number] [place] [address] Oct, [facility] [address] [id number] [place] [address] Sep, [facility] [address] [id number] [place] [address] Sep, [facility] [address] [id number] [place] [address] Sep, [facility] [address] [id number] [place] [address] Sep, [facility] [address] [id number] [place] [address] Sep, [facility] [address] [id number] [place] [address] Sep, [facility] [address] [id number] [place] [address] Aug, [facility] [address] [id number] [place] [address] Aug, [facility] [address] [id number] [place] [address] Aug, [facility] [address] [id number] [place] [address] Aug, [facility] [address] [id number] [place] [address] Aug, [facility] [address] [id number] [place] [address] Aug, [facility] [address] [id number] [place] [address] Aug, [facility] [address] [id number] [place] [address] Aug, [facility] [address] [id number] [place] [address] Aug, [facility] [address] [id number] [place] [address] Jul, [facility] [address] [id number] [place] [address] Jul, [facility] [address] [address] Jul, [facility] [id number] [place] [address] Jul, [facility] [address] [address] Nov, [facility] [address] [address] Sep, [facility] [address] [address] Aug, [facility] [address] [address] Aug, [facility] [address] [address] Aug, [facility] [address] [address] Jul, IMMUNIZATIONS No Known Immunizations SOCIAL HISTORY [...] 05/2005 [facility] History [facility] 06/2016 Surgical History Colonoscopy Kido (1 Polyp) repeat 5 year s 2019 2014 Surgical History right rotator cuff surgery 06/27/2016 Hospitalization History Overdosed on Clonazepam #35. Lori melendrez 03/2014 Hospitalization History Overdosed on Xanax 07/2012 Hospitalization History Hypostension-medication side effect-[facility] 03/13/16
--- OUTSIDE RECORDS SUMMARY | 2020-01-01 11:06 | XMS REPORT ---
Author Author Miguel Freeman Doctor Organization [facility] Address Unknown Phone Unavailable Care Team Providers Care [employer] Technician Name Role Phone Migration, Doctor Unavailable Unavailable PROBLEMS Type Condition ICD9-CM Code ZTS85-CQ Code Onset Dates Condition S tatus SNOMED Code Problem Neuropathy G62.9 Active 424326063 Problem Essential hypertension I10 Active 02370801 Problem senior living current use of insulin Z79.4 Active 756301362 Problem Abdominal pain R10.9 Active 56351 001 Problem Change in bowel habit R19.4 Active 66719705 Problem Coronary atherosclerosis due to lipid rich plaque I25.83 Active 68251821 Problem Type 2 diabetes mellitus with complication E11.8 Active 07452064 Problem Impotence N52.9 Active 374769502 Problem Family history of colon cancer Z80.0 Active 784932099 Problem Diabetic neuropathy, painful E11.40 A ctive 940187128 Problem Arm paresthesia, right R20.2 Active 73311049 Problem Gastroesophageal reflux disease without esophagitis K21.9 Active 014012474 Problem Drug abuse, opioid type F11.10 Active 5625223 Problem COPD exacerbation J44.1 Active 19 5209875 Problem Obstructive sleep apnea syndrome G47.33 Active 55827658 Problem Diverticulitis K57.92 Active 58368 6006 Problem Pain of right upper extremity M79.601 Active 126564120 Problem Respiratory bronchiolitis interstitial lung disease J84.115 Active 001298826 Problem Hypoxia R09.02 Active 205895549 Problem Interstitial lung disease J84.9 Acti ve [id number] ALLERGIES No Information ENCOUNTERS Encounter Location Date Diagnosis [facility] [address] [id number] [place] [address] Aug, [facility] [address] [id number] [place] [address] Aug, Diabetic neuropathy, painful E11.40 ; In terstitial lung disease J84.9 ; Chronic cough R05 ; Type 2 diabetes mellitus with complication E11.8 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 [facility] [id number] [place] [address] Jul, [facility] [address] [address] Jul, [facility] [address] [address] Jul, Diabetic neuropathy, painful E11.40 [place] [address] [address] Jul, Type 2 diabetes mellitus with complicati on E11.8 [place] [address] [address] Jun, Diabetic neuropathy, painful E11.40 [place] [address] [address] Jun, [facility] [address] [facility] [id number] [place] [address] Jun, Type 2 diabetes mellitus wit h complication E11.8 ; Other viral agents as the cause of diseases classified elsewhere B97.89 ; Acute upper respiratory infection, unspecified J06.9 ; Acute recurrent maxillary sinusitis J01.01 ; Sore throat J02.9 and Headache R51 [place] [address] [address] Jun, Right lower quadrant abdominal pain R10. 31 and Type 2 diabetes mellitus with complication E11.8 [place] [address] [address] May, Diabetic neuropathy, painful E11.40 [place] [address] [address] May, COPD exacerbation J44.1 and Type 2 diabe chidi mellitus with complication E11.8 [place] [address] [address] Apr, Diabetic neuropathy, painful E11.40 [place] [address] [address] Apr, Diabetic neuropathy, painful E11.40 [facility] [address] [place], [place] [id number] [address] [place] [address] Mar, Bronchitis J40 [place] [address] [address] January, Type 2 diabetes mellitus with complicati on E11.8 ; Diabetic neuropathy, painful E11.40 ; Impotence N52.9 ; Coronary atherosclerosis due to lipid rich plaque I25.83 ; 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 ; Interstitial lung disease J84.9 ; Hypoxia R09.02 ; Essential hypertension I10 ; Gastroesophageal reflux disease without esophagitis K21.9 ; Left upper arm pain M79.622 and Cervical spinal stenosis M48.02 [facility] [place] [id number] [place] [address] January, Viral gastroenteritis A08.[address] [address] Dec, Diabetic neuropathy, painful E11.40 [place] [address] [id number] Oct, [address] [address] Oct, Acute right-sided weakness M62.89 and Sl urring of speech R47.[address] [address] Sep, Type 2 diabetes mellitus with complicati on E11.8 ; Diabetic neuropathy, painful E11.40 ; Impotence N52.9 ; Coronary atherosclerosis due to lipid rich plaque I25.83 ; 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 ; Interstitial lung disease J84.9 ; Hypoxia R09.02 ; Essential hypertension I10 and Gastroesophageal reflux disease without esophagitis K21.9 [facility] [place] [id number] [place] [address] Sep, Bronchitis J40 [facility] [address] [facility] [id number] [address] [place] [address] Aug, Gastroenteritis and colitis, viral A08.4 [facility] [address] [address] Aug, [facility] [address] [address] Jun, Type 2 diabetes mellitus with complicati on E11.8 ; Diabetic neuropathy, painful E11.40 ; Impotence N52.9 ; Coronary atherosclerosis due to lipid rich plaque I25.83 ; senior living current use of insulin Z79.4 ; Interstitial lung disease J84.9 ; Hypoxia R09.02 and Essential hypertension I10 [facility] [address] [address] 30 May, 2016 Bronchitis J40 [facility] [address] [address] May, [facility] [address] [address] May, Pain of right upper extremity M79.601 [place] [address] [address] May, [facility] [address] [address] May, [place] [address] [address] May, Right hand pain M79.641 [facility] [address] [address] Apr, [facility] [address] [address] Apr, [place] [address] [address] Mar, [facility] [address] [address] Mar, Essential hypertension I10 [place] [address] [address] Feb, [place] [address] [address] Feb, Interstitial lung disease J84.9 and Bron chitis J40 [place] [address] [address] Feb, [place] [address] [address] Feb, Type 2 diabetes mellitus with complicati on E11.8 ; Impotence N52.9 ; Coronary atherosclerosis due to lipid rich plaque I25.83 ; 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 and Diabetic neuropathy, painful E11.40 [place] [address] [address] January, [place] [address] [address] January, Arm paresthesia, right R20.2 and Pain of right upper extremity M79.601 [place] [address] [address] Dec, Lumbar strain S39.012A [place] [address] [address] Nov, Diabetic neuropathy, painful E11.40 ; Re spiratory bronchiolitis interstitial lung disease J84.115 ; Pain of right upper extremity M79.601 and Arm paresthesia, right R20.2 [place] [address] [address] Nov, Diabetic neuropathy, painful E11.40 [place] [address] [address] Sep, Type 2 diabetes mellitus with complicati on E11.8 ; Impotence N52.9 ; Coronary atherosclerosis due to lipid rich plaque I25.83 ; 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 ; Diabetic neuropathy, painful E11.40 ; Chest pain R07.9 and Restless leg G25.81 [facility] [address] [address] Sep, [facility] [address] [address] Jul, COPD (chronic obstructive pulmonary dise ase) with acute bronchitis J44.0 [place] [address] [address] Jun, Abdominal pain R10.9 ; Family history of colon cancer Z80.0 and Diverticulitis K57.92 [place] [address] [address] Jun, Abdominal pain R10.9 and Diverticulitis K57.92 [place] [address] [address] Apr, Diabetes with other specified manifestat ions, type II or unspecified type, not stated as uncontrolled 250.80 ; Coronary atherosclerosis of unspecified type of vessel, [place] or graft 414.00 ; Unspecified essential hypertension 401.9 ; Impotence of organic origin 607.84 ; Sleep apnea 780.57 and Interstitial lung disease 515 [place] [address] [address] Dec, [place] [address] [address] Dec, [place] [address] [address] Nov, [facility] [address] [address] Nov, [facility] [address] [address] Nov, [facility] [address] [address] Nov, [facility] [address] [address] Nov, [facility] [address] [address] Nov, [facility] [place] [facility] [address] [id number] [place] [address] Nov, [facility] [place] [facility] [address] [id number] [place] [address] Nov, [facility] [place] [facility] [address] [id number] [place] [address] Nov, 2014 [facility] [place] [facility] [address] [id number] [place] [address] Nov, 2014 [facility] [place] [facility] [address] [id number] [place] [address] Oct, 2014 [facility] [place] [facility] [address] [id number] [place] [address] Oct, 2014 [facility] [place] [facility] [address] [id number] [place] [address] Oct, 2014 [facility] [place] [facility] [address] [id number] [place] [address] Oct, 2014 [facility] [place] [facility] [address] [id number] [place] [address] Oct, 2014 [facility] [place] [facility] [address] [id number] [place] [address] Oct, 2014 [facility] [place] [facility] [address] [id number] [place] [address] Oct, 2014 [facility] [place] [facility] [address] [id number] [place] [address] Oct, 2014 [facility] [place] [facility] [address] [id number] [place] [address] Oct, 2014 [facility] [place] [facility] [address] [id number] [place] [address] Oct, 2014 [facility] [place] [facility] [address] [id number] [place] [address] Oct, 2014 [facility] [place] [facility] [address] [id number] [place] [address] Jul, [facility] [place] [facility] [address] [id number] [place] [address] Jul, 2013 [facility] [place] [facility] [address] [id number] [place] [address] Jun, 2013 [facility] [place] [facility] [address] [id number] [place] [address] 29 Jun, 2013 [facility] [place] [facility] [address] [id number] [place] [address] Jun, 2013 [facility] [place] [facility] [address] [id number] [place] [address] 17 Jun, 2013 [facility] [place] [facility] [address] [id number] [place] [address] 15 Jun, 2014 [facility] [place] [facility] [address] [id number] [place] [address] 15 Jun, 2013 [facility] [place] [facility] [address] [id number] [place] [address] 14 Jun, 2013 [facility] [place] [facility] [address] [id number] [place] [address] 14 Jun, 2013 [facility] [place] [facility] [address] [id number] [place] [address] 13 Jun, 2014 [facility] [place] [facility] [address] [id number] [place] [address] 13 Jun, 2013 [facility] [place] [facility] [address] [id number] [place] [address] 08 Jun, 2013 [facility] [place] [facility] [address] [id number] [place] [address] 08 Jun, 2013 [facility] [place] [facility] [address] [id number] [place] [address] 07 Jun, 2013 [facility] [place] [facility] [address] [id number] [place] [address] 07 Jun, 2013 [facility] [place] [facility] [address] [id number] [place] [address] 30 May, 2013 [facility] [place] [facility] [address] [id number] [place] [address] 30 May, 2013 [facility] [place] [facility] [address] [id number] [facility] [place] [address] May, [facility] [place] [facility] [address] [facility] [id number] [facility] [place] [address] May, [facility] [place] [facility] [address] [id number] [facility] [place] [address] May, [facility] [place] [facility] [address] [facility] [id number] [facility] [place] [address] May, [facility] [place] [facility] [address] [facility] [id number] [facility] [place] [address] Apr, [facility] [place] [facility] [address] [facility] [id number] [place] [address] Apr, [facility] [place] [facility] [address] [id number] [place] [address] Apr, [facility] [place] [facility] [address] [id number] [facility] [place] [address] Apr, [facility] [place] [facility] [address] [id number] [facility] [place] [address] Apr, [facility] [place] [facility] [address] [id number] [facility] [place] [address] Apr, [facility] [place] [facility] [address] [id number] [place] [address] Apr, [facility] [place] [facility] [address] [id number] [place] [address] Apr, [facility] [place] [facility] [address] [id number] [place] [address] Apr, [facility] [place] [facility] [address] [id number] [place] [address] Apr, [facility] [place] [facility] [address] [id number] [place] [address] Apr, [facility] [place] [facility] [address] [id number] [place] [address] Apr, [facility] [place] [facility] [address] [id number] [facility] [place] [address] Mar, [facility] [place] [facility] [address] [id number] [facility] [place] [address] Mar, [facility] [place] [facility] [address] [facility] [id number] [place] [address] Mar, [facility] [place] [facility] [address] [facility] [id number] [place] [address] Mar, [facility] [place] [facility] [address] [facility] [id number] [facility] [place] [address] Mar, [facility] [place] [facility] [address] [facility] [id number] [facility] [place] [address] Mar, [facility] [place] [facility] [address] [id number] [place] [address] Mar, [facility] [place] [facility] [address] [id number] [place] [address] Mar, [facility] [place] [facility] [address] [id number] [place] [address] Mar, [facility] [place] [facility] [address] [facility] [id number] [place] [address] Mar, [facility] [place] [facility] [address] [id number] [place] [address] Mar, [facility] [place] [facility] [address] [id number] [place] [address] Feb, [facility] [place] [facility] [address] [facility] [id number] [place] [address] Feb, [facility] [place] [facility] [address] [facility] [id number] [place] [address] Feb, [facility] [place] [facility] [address] [id number] [place] [address] Feb, [facility] [place] [facility] [address] [id number] [place] [address] Feb, [facility] [place] [facility] [address] [id number] [place] [address] Feb, [facility] [place] [facility] [address] [id number] [place] [address] Feb, [facility] [place] [facility] [address] [id number] [place] [address] Feb, [facility] [place] [facility] [address] [id number] [place] [address] Feb, [facility] [place] [facility] [address] [id number] [place] [address] Feb, [facility] [place] [facility] [address] [facility] [id number] [place] [address] January, [facility] [place] [facility] [address] [id number] [place] [address] January, [facility] [place] [facility] [address] [id number] [place] [address] January, [facility] [place] [facility] [address] [id number] [place] [address] January, [facility] [place] [facility] [address] [id number] [place] [address] January, [facility] [place] [facility] [address] [id number] [place] [address] January, [facility] [place] [facility] [address] [id number] [place] [address] January, [facility] [place] [facility] [address] [id number] [place] [address] January, [facility] [place] [facility] [address] [id number] [place] [address] January, [facility] [place] [facility] [address] [id number] [place] [address] January, [facility] [place] [facility] [address] [id number] [place] [address] January, [facility] [place] [facility] [address] [id number] [place] [address] January, [facility] [place] [facility] [address] [id number] [place] [address] January, [facility] [place] [facility] [address] [id number] [place] [address] January, [facility] [place] [facility] [address] [id number] [place] [address] January, [facility] [place] [facility] [address] [id number] [place] [address] January, [facility] [place] [facility] [address] [id number] [place] [address] Dec, [facility] [place] [facility] [address] [id number] [place] [address] Dec, [facility] [place] [facility] [address] [id number] [place] [address] Dec, [facility] [place] [facility] [address] [id number] [place] [address] Dec, [facility] [place] [facility] [address] [id number] [place] [address] Dec, [facility] [place] [facility] [address] [id number] [place] [address] Dec, [facility] [place] [facility] [address] [id number] [place] [address] Dec, [facility] [place] [facility] [address] [id number] [place] [address] Dec, [facility] [place] [facility] [address] [id number] [place] [address] Dec, [facility] [place] [facility] [address] [id number] [place] [address] Dec, [facility] [place] [facility] [address] [id number] [place] [address] Nov, [facility] [place] [facility] [address] [id number] [place] [address] Nov, [facility] [place] [facility] [address] [id number] [place] [address] Oct, [facility] [place] [facility] [address] [id number] [place] [address] 07 Oct, 2013 [facility] [place] [facility] [address] [id number] [place] [address] Oct, [facility] [place] [facility] [address] [id number] [place] [address] Sep, [facility] [place] [facility] [address] [id number] [place] [address] Sep, [facility] [place] [facility] [address] [id number] [place] [address] Sep, [facility] [place] [facility] [address] [id number] [place] [address] Sep, [facility] [place] [facility] [address] [id number] [place] [address] Sep, [facility] [place] [facility] [address] [id number] [place] [address] Sep, [facility] [place] [facility] [address] [id number] [place] [address] Sep, [facility] [place] [facility] [address] [id number] [place] [address] Sep, [facility] [place] [facility] [address] [id number] [place] [address] Sep, [facility] [place] [facility] [address] [id number] [place] [address] Sep, [facility] [place] [facility] [address] [id number] [place] [address] Sep, [facility] [place] [facility] [address] [id number] [place] [address] Sep, [facility] [place] [facility] [address] [id number] [place] [address] Aug, [facility] [place] [facility] [address] [id number] [place] [address] Aug, [facility] [place] [facility] [address] [id number] [place] [address] Aug, [facility] [place] [facility] [address] [id number] [place] [address] Aug, 2012 [facility] [place] [facility] [address] [id number] [place] [address] Jul, [facility] [place] [facility] [address] [id number] [place] [address] Jul, [facility] [place] [facility] [address] [id number] [place] [address] Jun, [facility] [place] [facility] [address] [id number] [place] [address] Jun, [facility] [place] [facility] [address] [id number] [place] [address] Jun, [facility] [place] [facility] [address] [id number] [place] [address] Jun, [facility] [place] [facility] [address] [id number] [place] [address] Jun, [facility] [place] [facility] [address] [id number] [place] [address] Jun, [facility] [place] [facility] [address] [id number] [place] [address] Jun, [facility] [place] [facility] [address] [id number] [place] [address] Jun, [facility] [place] [facility] [address] [id number] [place] [address] 24 May, 2012 [facility] [place] [facility] [address] [id number] [place] [address] 23 Sep, 2012 [facility] [place] [facility] [address] [id number] [place] [address] 18 Sep, 2012 [facility] [place] [facility] [address] [id number] [place] [address] 13 Sep, 2012 [facility] [place] [facility] [address] [id number] [place] [address] 11 Sep, 2012 [facility] [place] [facility] [address] [id number] [place] [address] May, [facility] [place] [facility] [address] [id number] [place] [address] May, [facility] [place] [facility] [address] [facility] [id number] [facility] [place] [address] Apr, [facility] [place] [facility] [address] [id number] [facility] [place] [address] Apr, [facility] [place] [facility] [address] [facility] [id number] [place] [address] Apr, [facility] [place] [facility] [address] [id number] [place] [address] Apr, [facility] [place] [facility] [address] [id number] [place] [address] Apr, [facility] [place] [facility] [address] [id number] [facility] [place] [address] Apr, [facility] [place] [facility] [address] [id number] [facility] [place] [address] Apr, [facility] [place] [facility] [address] [facility] [id number] [facility] [place] [address] Mar, [facility] [address] [id number] [facility] [place] [address] Mar, [facility] [address] [id number] [facility] [place] [address] Mar, [facility] [address] [id number] [facility] [place] [address] Mar, [facility] [address] [facility] [id number] [facility] [place] [address] Mar, [facility] [address] [id number] [facility] [place] [address] Mar, [facility] [address] [facility] [id number] [facility] [place] [address] Mar, [facility] [address] [id number] [facility] [place] [address] Mar, [facility] [address] [id number] [place] [address] 18 Feb, 2013 [facility] [address] [id number] [place] [address] Feb, [facility] [address] [id number] [place] [address] Feb, [facility] [address] [id number] [place] [address] January, [facility] [address] [id number] [place] [address] January, [facility] [address] [id number] [place] [address] January, [facility] [address] [id number] [place] [address] January, [facility] [address] [id number] [place] [address] January, [facility] [address] [id number] [place] [address] January, [facility] [address] [id number] [place] [address] January, [facility] [address] [id number] [place] [address] January, [facility] [address] [id number] [place] [address] Dec, [facility] [address] [id number] [place] [address] Dec, [facility] [address] [id number] [place] [address] Dec, [facility] [address] [id number] [place] [address] Dec, [facility] [address] [id number] [place] [address] Dec, [facility] [address] [id number] [place] [address] Nov, [facility] [address] [id number] [place] [address] 21 Nov, 2012 [facility] [address] [id number] [facility] [place] [address] 19 Nov, 2012 [facility] [address] [id number] [place] [address] 18 Nov, 2012 [facility] [address] [id number] [place] [address] 18 Nov, 2012 [facility] [address] [facility] [id number] [place] [address] 14 Nov, 2012 [facility] [address] [id number] [place] [address] 11 Nov, 2012 [facility] [address] [id number] [place] [address] Nov, [facility] [address] [id number] [place] [address] Oct, [facility] [address] [id number] [place] [address] Oct, [facility] [address] [id number] [place] [address] 12 Oct, 2012 [facility] [address] [id number] [place] [address] 08 Oct, 2012 [facility] [address] [id number] [place] [address] 07 Oct, 2012 [facility] [address] [id number] [place] [address] 07 Oct, 2012 [facility] [address] [id number] [place] [address] 05 Oct, 2012 [facility] [address] [id number] [place] [address] 04 Oct, 2012 [facility] [address] [id number] [place] [address] 04 Oct, 2012 [facility] [address] [id number] [place] [address] Sep, [facility] [address] [id number] [place] [address] Sep, [facility] [address] [id number] [place] [address] Sep, [facility] [address] [id number] [place] [address] Sep, [facility] [address] [id number] [place] [address] Sep, [facility] [address] [id number] [place] [address] Sep, [facility] [address] [id number] [place] [address] Aug, [facility] [address] [id number] [place] [address] Aug, [facility] [address] [id number] [place] [address] Aug, [facility] [address] [id number] [place] [address] Aug, [facility] [address] [id number] [place] [address] Aug, [facility] [address] [id number] [place] [address] Aug, [facility] [address] [id number] [place] [address] Aug, [facility] [address] [id number] [place] [address] Aug, [facility] [address] [id number] [place] [address] Aug, [facility] [address] [id number] [place] [address] Jul, [facility] [address] [id number] [place] [address] Jul, [facility] [id number] [place] [address] Jul, [facility] [address] [address] Jul, [facility] [address] [address] Nov, [facility] [address] [address] Sep, [facility] [address] [address] Aug, [facility] [address] [address] Aug, [facility] [address] [address] Aug, [facility] [address] [address] Jul, IMMUNIZATIONS No Known Immunizations SOCIAL HISTORY [...]
--- OUTSIDE RECORDS SUMMARY | 2020-01-01 11:06 | XMS REPORT ---
Author Author Miguel Freeman Doctor Organization [facility] Address Unknown Phone Unavailable Care Team Providers Care Aqua Ammonia Operator Name Role Phone Migration, Doctor Unavailable Unavailable PROBLEMS Type Condition ICD9-CM Code PWP68-BN Code Onset Dates Condition S tatus SNOMED Code Problem Neuropathy G62.9 Active 934209916 Problem Essential hypertension I10 Active 82017840 Problem snf current use of insulin Z79.4 Active 310118625 Problem Abdominal pain R10.9 Active 15729 001 Problem Change in bowel habit R19.4 Active 42605226 Problem Coronary atherosclerosis due to lipid rich plaque I25.83 Active 57568467 Problem Type 2 diabetes mellitus with complication E11.8 Active 84032080 Problem Impotence N52.9 Active 821034573 Problem Family history of colon cancer Z80.0 Active 244912578 Problem Diabetic neuropathy, painful E11.40 A ctive 164686983 Problem Arm paresthesia, right R20.2 Active 14245569 Problem Gastroesophageal reflux disease without esophagitis K21.9 Active 729924374 Problem Drug abuse, opioid type F11.10 Active 7785424 Problem COPD exacerbation J44.1 Active 19 8885887 Problem Obstructive sleep apnea syndrome G47.33 Active 38812545 Problem Diverticulitis K57.92 Active 73077 6006 Problem Pain of right upper extremity M79.601 Active 165514411 Problem Respiratory bronchiolitis interstitial lung disease J84.115 Active 350809544 Problem Hypoxia R09.02 Active 027710091 Problem Interstitial lung disease J84.9 Acti ve [id number] ALLERGIES No Information ENCOUNTERS Encounter Location Date Diagnosis [facility] [address] [id number] [address] Aug, [facility] [id number] [address] Aug, Diabetic neuropathy, painful E11.40 ; In terstitial lung disease J84.9 ; Chronic cough R05 ; Type 2 diabetes mellitus with complication E11.8 and 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 use of 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 Z79.4 [facility] [address] [place] [id number] [address] Jul, [facility] [address] [address] Jul, [facility] [address] [address] Jul, Diabetic neuropathy, painful E11.40 [place] [address] [address] Jul, Type 2 diabetes mellitus with complicati on E11.8 [place] [address] [address] Jun, Diabetic neuropathy, painful E11.40 [place] [address] [address] Jun, [facility] [address] [facility] [id number] [place] [address] Jun, Type 2 diabetes mellitus wit h complication E11.8 ; Other viral agents as the cause of diseases classified elsewhere B97.89 ; Acute upper respiratory infection, unspecified J06.9 ; Acute recurrent maxillary sinusitis J01.01 ; Sore throat J02.9 and Headache R51 [place] [address] [address] Jun, Right lower quadrant abdominal pain R10. 31 and Type 2 diabetes mellitus with complication E11.8 [place] [address] [address] May, Diabetic neuropathy, painful E11.40 [place] [address] [address] May, COPD exacerbation J44.1 and Type 2 diabe chidi mellitus with complication E11.8 [place] [address] [address] Apr, Diabetic neuropathy, painful E11.40 [place] [address] [address] Apr, Diabetic neuropathy, painful E11.40 [facility] [address] [place] [id number] [address] [place] [address] Mar, Bronchitis J40 [place] [address] [address] January, Type 2 diabetes mellitus with complicati on E11.8 ; Diabetic neuropathy, painful E11.40 ; Impotence N52.9 ; Coronary atherosclerosis due to lipid rich plaque I25.83 ; 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 current use of insulin Z79.4 ; Interstitial lung disease J84.9 ; Hypoxia R09.02 ; Essential hypertension I10 ; Gastroesophageal reflux disease without esophagitis K21.9 ; Left upper arm pain M79.622 and Cervical spinal stenosis M48.02 [facility] [place] [id number] [place] [address] January, Viral gastroenteritis A08.[address] [address] Dec, Diabetic neuropathy, painful E11.40 [place] [address] [id number] Oct, [address] [address] Oct, Acute right-sided weakness M62.89 and Sl urring of speech R47.[address] [address] Sep, Type 2 diabetes mellitus with complicati on E11.8 ; Diabetic neuropathy, painful E11.40 ; Impotence N52.9 ; Coronary atherosclerosis due to lipid rich plaque I25.83 ; 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 current use of insulin Z79.4 ; Interstitial lung disease J84.9 ; Hypoxia R09.02 ; Essential hypertension I10 and Gastroesophageal reflux disease without esophagitis K21.9 [facility] [place] [id number] [place] [address] Sep, Bronchitis J40 [facility] [address] [facility] [id number] [place] [address] Aug, Gastroenteritis and colitis, viral A08.4 [facility] [address] [address] Aug, [facility] [address] [address] Jun, Type 2 diabetes mellitus with complicati on E11.8 ; Diabetic neuropathy, painful E11.40 ; Impotence N52.9 ; Coronary atherosclerosis due to lipid rich plaque I25.83 ; snf current use of insulin Z79.4 ; Interstitial lung disease J84.9 ; Hypoxia R09.02 and Essential hypertension I10 [facility] [address] [address] 30 May, 2016 Bronchitis J40 [facility] [address] [address] May, [facility] [address] [address] May, Pain of right upper extremity M79.601 [place] [address] [address] May, [facility] [address] [address] May, [place] [address] [address] May, Right hand pain M79.641 [facility] [address] [address] Apr, [facility] [address] [address] Apr, [place] [address] [address] Mar, [facility] [address] [address] Mar, Essential hypertension I10 [place] [address] [address] Feb, [place] [address] [address] Feb, Interstitial lung disease J84.9 and Bron chitis J40 [place] [address] [address] Feb, [place] [address] [address] Feb, Type 2 diabetes mellitus with complicati on E11.8 ; Impotence N52.9 ; Coronary atherosclerosis due to lipid rich plaque I25.83 ; 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 current use of insulin Z79.4 and Diabetic neuropathy, painful E11.40 [place] [address] [address] January, [place] [address] [address] January, Arm paresthesia, right R20.2 and Pain of right upper extremity M79.601 [place] [address] [address] Dec, Lumbar strain S39.012A [place] [address] [address] Nov, Diabetic neuropathy, painful E11.40 ; Re spiratory bronchiolitis interstitial lung disease J84.115 ; Pain of right upper extremity M79.601 and Arm paresthesia, right R20.2 [place] [address] [address] Nov, Diabetic neuropathy, painful E11.40 [place] [address] [address] Sep, Type 2 diabetes mellitus with complicati on E11.8 ; Impotence N52.9 ; Coronary atherosclerosis due to lipid rich plaque I25.83 ; 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 current use of insulin Z79.4 ; Diabetic neuropathy, painful E11.40 ; Chest pain R07.9 and Restless leg G25.81 [facility] [address] [address] Sep, [facility] [address] [address] Jul, COPD (chronic obstructive pulmonary dise ase) with acute bronchitis J44.0 [place] [address] [address] Jun, Abdominal pain R10.9 ; Family history of colon cancer Z80.0 and Diverticulitis K57.92 [place] [address] [address] Jun, Abdominal pain R10.9 and Diverticulitis K57.92 [place] [address] [address] Apr, Diabetes with other specified manifestat ions, type II or unspecified type, not stated as uncontrolled 250.80 ; Coronary atherosclerosis of unspecified type of vessel, hopi or graft 414.00 ; Unspecified essential hypertension 401.9 ; Impotence of organic origin 607.84 ; Sleep apnea 780.57 and Interstitial lung disease 515 [place] [address] [address] Dec, [place] [address] [address] Dec, [place] [address] [address] Nov, [facility] [address] [address] Nov, [facility] [address] [address] Nov, [facility] [address] [address] Nov, [facility] [address] [address] Nov, [facility] [address] [address] Nov, [facility] [place] [facility] [id number] [place] [address] Nov, [facility] [place] [facility] [id number] [place] [address] Nov, [facility] [place] [facility] [id number] [place] [address] Nov, 2014 [facility] [place] [facility] [id number] [place] [address] Nov, 2014 [facility] [place] [facility] [id number] [place] [address] Oct, 2014 [facility] [place] [facility] [id number] [place] [address] Oct, 2014 [facility] [place] [facility] [id number] [place] [address] Oct, 2014 [facility] [place] [facility] [id number] [place] [address] Oct, 2014 [facility] [place] [facility] [id number] [place] [address] Oct, 2014 [facility] [place] [facility] [id number] [place] [address] Oct, 2014 [facility] [place] [facility] [id number] [place] [address] Oct, 2014 [facility] [place] [facility] [address] [id number] [place] [address] Oct, 2014 [facility] [place] [facility] [address] [id number] [place] [address] Oct, 2014 [facility] [place] [facility] [id number] [place] [address] Oct, 2014 [facility] [place] [facility] [address] [id number] [place] [address] Oct, 2014 [facility] [place] [facility] [address] [id number] [place] [address] Jul, [facility] [place] [facility] [address] [id number] [place] [address] Jul, 2013 [facility] [place] [facility] [address] [id number] [place] [address] Jun, 2013 [facility] [place] [facility] [address] [id number] [place] [address] 29 Jun, 2013 [facility] [place] [facility] [id number] [place] [address] Jun, 2013 [facility] [place] [facility] [id number] [place] [address] 17 Jun, 2013 [facility] [place] [facility] [id number] [place] [address] 15 Jun, 2014 [facility] [place] [facility] [id number] [place] [address] 15 Jun, 2013 [facility] [place] [facility] [id number] [place] [address] 14 Jun, 2013 [facility] [place] [facility] [id number] [place] [address] 14 Jun, 2013 [facility] [place] [facility] [id number] [place] [address] 13 Jun, 2014 [facility] [place] [facility] [id number] [place] [address] 13 Jun, 2013 [facility] [place] [facility] [id number] [address] 08 Jun, 2013 [facility] [place] [facility] [id number] [place] [address] 08 Jun, 2013 [facility] [place] [facility] [id number] [place] [address] 07 Jun, 2013 [facility] [place] [facility] [id number] [place] [address] 07 Jun, 2013 [facility] [place] [facility] [address] [id number] [place] [address] 30 May, 2013 [facility] [place] [facility] [address] [id number] [place] [address] 30 May, 2013 [facility] [place] [facility] [address] [id number] [place] [address] May, [facility] [place] [facility] [address] [facility] [id number] [place] [address] May, [facility] [place] [facility] [id number] [place] [address] May, [facility] [place] [facility] [address] [facility] [id number] [place] [address] May, [facility] [place] [facility] [address] [facility] [id number] [place] [address] Apr, [facility] [place] [facility] [address] [facility] [id number] [place] [address] Apr, [facility] [place] [facility] [id number] [place] [address] Apr, [facility] [place] [facility] [address] [id number] [place] [address] Apr, [facility] [place] [facility] [address] [id number] [place] [address] Apr, [facility] [place] [facility] [address] [id number] [place] [address] Apr, [facility] [place] [facility] [address] [id number] [place] [address] Apr, [facility] [place] [facility] [address] [id number] [place] [address] Apr, [facility] [place] [facility] [address] [facility] [address] [id number] [place] [address] Apr, [facility] [place] [facility] [address] [id number] [place] [address] Apr, [facility] [place] [facility] [address] [id number] [place] [address] Apr, [facility] [place] [facility] [address] [id number] [place] [address] Apr, [facility] [place] [facility] [address] [id number] [place] [address] Mar, [facility] [place] [facility] [address] [id number] [place] [address] Mar, [facility] [place] [facility] [address] [facility] [id number] [place] [address] Mar, [facility] [place] [facility] [address] [facility] [id number] [place] [address] Mar, [facility] [place] [facility] [address] [facility] [id number] [place] [address] Mar, [facility] [place] [facility] [address] [facility] [id number] [place] [address] Mar, [facility] [place] [facility] [address] [id number] [place] [address] Mar, [facility] [place] [facility] [address] [id number] [place] [address] Mar, [facility] [place] [facility] [address] [facility] [address] [id number] [place] [address] Mar, [facility] [place] [facility] [address] [facility] [id number] [place] [address] Mar, [facility] [place] [facility] [address] [facility] [address] [id number] [place] [address] Mar, [facility] [place] [facility] [address] [facility] [id number] [place] [address] Feb, [facility] [place] [facility] [address] [facility] [id number] [place] [address] Feb, [facility] [place] [facility] [address] [facility] [id number] [place] [address] Feb, [facility] [place] [facility] [address] [id number] [place] [address] Feb, [facility] [place] [facility] [address] [id number] [place] [address] Feb, [facility] [place] [facility] [id number] [place] [address] Feb, [facility] [place] [facility] [address] [id number] [place] [address] Feb, [facility] [place] [facility] [address] [id number] [place] [address] Feb, [facility] [place] [facility] [address] [id number] [place] [address] Feb, [facility] [place] [facility] [id number] [place] [address] Feb, [facility] [place] [facility] [address] [facility] [id number] [place] [address] January, [facility] [place] [facility] [address] [id number] [place] [address] January, [facility] [place] [facility] [address] [id number] [place] [address] January, [facility] [place] [facility] [address] [id number] [place] [address] January, [facility] [place] [facility] [address] [id number] [place] [address] January, [facility] [place] [facility] [address] [id number] [place] [address] January, [facility] [place] [facility] [address] [id number] [place] [address] January, [facility] [place] [facility] [address] [id number] [place] [address] January, [facility] [place] [facility] [address] [id number] [place] [address] January, [facility] [place] [facility] [address] [id number] [place] [address] January, [facility] [place] [facility] [address] [id number] [place] [address] January, [facility] [place] [facility] [address] [id number] [place] [address] January, [facility] [place] [facility] [address] [id number] [place] [address] January, [facility] [place] [facility] [address] [id number] [place] [address] January, [facility] [place] [facility] [address] [id number] [place] [address] January, [facility] [place] [facility] [address] [id number] [place] [address] January, [facility] [place] [facility] [address] [id number] [place] [address] Dec, [facility] [place] [facility] [address] [id number] [place] [address] Dec, [facility] [place] [facility] [address] [id number] [place] [address] Dec, [facility] [place] [facility] [address] [id number] [place] [address] Dec, [facility] [place] [facility] [address] [id number] [place] [address] Dec, [facility] [place] [facility] [address] [id number] [place] [address] Dec, [facility] [place] [facility] [address] [id number] [place] [address] Dec, [facility] [place] [facility] [address] [id number] [place] [address] Dec, [facility] [place] [facility] [address] [id number] [place] [address] Dec, [facility] [place] [facility] [address] [id number] [place] [address] Dec, [facility] [place] [facility] [address] [id number] [place] [address] Nov, [facility] [place] [facility] [address] [id number] [place] [address] Nov, [facility] [place] [facility] [address] [id number] [place] [address] Oct, [facility] [place] [facility] [address] [id number] [place] [address] 07 Oct, 2013 [facility] [place] [facility] [address] [id number] [place] [address] Oct, [facility] [place] [facility] [address] [id number] [place] [address] Sep, [facility] [place] [facility] [address] [id number] [place] [address] Sep, [facility] [place] [facility] [address] [id number] [place] [address] Sep, [facility] [place] [facility] [address] [id number] [place] [address] Sep, [facility] [place] [facility] [address] [id number] [place] [address] Sep, [facility] [place] [facility] [address] [id number] [place] [address] Sep, [facility] [place] [facility] [address] [id number] [place] [address] Sep, [facility] [place] [facility] [address] [id number] [place] [address] Sep, [facility] [place] [facility] [address] [id number] [place] [address] Sep, [facility] [place] [facility] [address] [id number] [place] [address] Sep, [facility] [place] [facility] [address] [id number] [place] [address] Sep, [facility] [place] [facility] [address] [id number] [place] [address] Sep, [facility] [place] [facility] [address] [id number] [place] [address] Aug, [facility] [place] [facility] [address] [id number] [place] [address] Aug, [facility] [place] [facility] [address] [id number] [place] [address] Aug, [facility] [place] [facility] [address] [id number] [place] [address] Aug, 2012 [facility] [place] [facility] [address] [id number] [place] [address] Jul, [facility] [place] [facility] [address] [id number] [place] [address] Jul, [facility] [place] [facility] [address] [id number] [place] [address] Jun, [facility] [place] [facility] [address] [id number] [place] [address] Jun, [facility] [place] [facility] [address] [id number] [place] [address] Jun, [facility] [place] [facility] [address] [id number] [place] [address] Jun, [facility] [place] [facility] [address] [id number] [place] [address] Jun, [facility] [place] [facility] [address] [id number] [place] [address] Jun, [facility] [place] [facility] [address] [id number] [address] Jun, [facility] [place] [facility] [address] [id number] [place] [address] Jun, [facility] [place] [facility] [address] [id number] 24 May, 2012 [facility] [place] [facility] [address] [id number] [place] [address] 23 Sep, 2012 [facility] [place] [facility] [address] [id number] [address] 18 Sep, 2012 [facility] [place] [facility] [address] [id number] [place] [address] 13 Sep, 2012 [facility] [place] [facility] [address] [id number] [address] 11 Sep, 2012 [facility] [place] [facility] [address] [id number] [place] [address] May, [facility] [place] [facility] [address] [id number] [place] [address] May, [facility] [place] [facility] [address] [facility] [id number] [place] [address] Apr, [facility] [place] [facility] [address] [id number] [place] [address] Apr, [facility] [place] [facility] [address] [facility] [id number] [place] [address] Apr, [facility] [place] [facility] [address] [id number] [place] [address] Apr, [facility] [place] [facility] [address] [id number] [place] [address] Apr, [facility] [place] [facility] [address] [id number] [place] [address] Apr, [facility] [place] [facility] [address] [id number] [place] [address] Apr, [facility] [place] [facility] [address] [facility] [id number] [place] [address] Mar, [facility] [place] [facility] [address] [id number] [place] [address] Mar, [facility] [place] [facility] [address] [id number] [place] [address] Mar, [facility] [place] [facility] [address] [id number] [place] [address] Mar, [facility] [place] [facility] [address] [facility] [id number] [place] [address] Mar, [facility] [place] [facility] [address] [id number] [place] [address] Mar, [facility] [place] [facility] [address] [facility] [id number] [place] [address] Mar, [facility] [place] [facility] [address] [id number] [place] [address] Mar, [facility] [place] [facility] [address] [id number] [place] [address] 18 Feb, 2013 [facility] [place] [facility] [address] [id number] [place] [address] Feb, [facility] [place] [facility] [address] [id number] [place] [address] Feb, [facility] [place] [facility] [address] [id number] [place] [address] January, [facility] [address] [id number] [place] [address] January, [facility] [address] [id number] [place] [address] January, [facility] [address] [id number] [place] [address] January, [facility] [address] [id number] [place] [address] January, [facility] [address] [id number] [place] [address] January, [facility] [address] [id number] [place] [address] January, [facility] [address] [id number] [place] [address] January, [facility] [address] [id number] [place] [address] Dec, [facility] [address] [id number] [place] [address] Dec, [facility] [address] [id number] [place] [address] Dec, [facility] [address] [id number] [place] [address] Dec, [facility] [address] [id number] [place] [address] Dec, [facility] [address] [id number] [place] [address] Nov, [facility] [address] [id number] [place] [address] 21 Nov, 2012 [facility] [address] [id number] [place] [address] 19 Nov, 2012 [facility] [address] [id number] [place] [address] 18 Nov, 2012 [facility] [address] [id number] [place] [address] 18 Nov, 2012 [facility] [address] [facility] [id number] [place] [address] 14 Nov, 2012 [facility] [address] [id number] [place] [address] 11 Nov, 2012 [facility] [address] [id number] [place] [address] Nov, [facility] [address] [id number] [place] [address] Oct, [facility] [address] [id number] [place] [address] Oct, [facility] [address] [id number] [place] [address] 12 Oct, 2012 [facility] [address] [id number] [place] [address] 08 Oct, 2012 [facility] [address] [id number] [place] [address] 07 Oct, 2012 [facility] [address] [id number] [place] [address] 07 Oct, 2012 [facility] [address] [id number] [place] [address] 05 Oct, 2012 [facility] [address] [id number] [place] [address] 04 Oct, 2012 [facility] [address] [id number] [place] [address] 04 Oct, 2012 [facility] [address] [id number] [place] [address] Sep, [facility] [address] [id number] [place] [address] Sep, [facility] [address] [id number] [place] [address] Sep, [facility] [address] [id number] [place] [address] Sep, [facility] [address] [id number] [place] [address] Sep, [facility] [address] [id number] [place] [address] Sep, [facility] [address] [id number] [place] [address] Aug, [facility] [address] [id number] [place] [address] Aug, [facility] [address] [id number] [place] [address] Aug, [facility] [address] [id number] [place] [address] Aug, [facility] [address] [id number] [place] [address] Aug, [facility] [address] [id number] [place] [address] Aug, [facility] [address] [id number] [place] [address] Aug, [facility] [address] [id number] [place] [address] Aug, [facility] [address] [id number] [place] [address] Aug, [facility] [address] [id number] [place] [address] Jul, [facility] [address] [id number] [place] [address] Jul, [facility] [id number] Jul, [facility] [address] [address] Jul, [facility] [address] [address] Nov, [facility] [address] [address] Sep, [facility] [address] [address] Aug, [facility] [address] [address] Aug, [facility] [address] [address] Aug, [facility] [address] [address] Jul, IMMUNIZATIONS No Known Immunizations SOCIAL HISTORY [...] Xanax 07/2012 Hospitalization History Hypostension-medication side effect-[facility] 03/13/16
--- OUTSIDE RECORDS SUMMARY | 2020-01-01 11:07 | XMS REPORT ---
Author Author Miguel Freeman Doctor Organization [facility] Address Unknown Phone Unavailable Care Team Providers Care Videographer Name Role Phone Migration, Doctor Unavailable Unavailable PROBLEMS Type Condition ICD9-CM Code APG15-WJ Code Onset Dates Condition S tatus SNOMED Code Problem Neuropathy G62.9 Active 894688854 Problem Essential hypertension I10 Active 01169144 Problem care home current use of insulin Z79.4 Active 819022991 Problem Abdominal pain R10.9 Active 03407 001 Problem Change in bowel habit R19.4 Active 38624260 Problem Coronary atherosclerosis due to lipid rich plaque I25.83 Active 20521744 Problem Type 2 diabetes mellitus with complication E11.8 Active 55084807 Problem Impotence N52.9 Active 616183739 Problem Family history of colon cancer Z80.0 Active 463027840 Problem Diabetic neuropathy, painful E11.40 A ctive 548758928 Problem Arm paresthesia, right R20.2 Active 15725418 Problem Gastroesophageal reflux disease without esophagitis K21.9 Active 932191361 Problem Drug abuse, opioid type F11.10 Active 5572245 Problem COPD exacerbation J44.1 Active 19 2758708 Problem Obstructive sleep apnea syndrome G47.33 Active 65835877 Problem Diverticulitis K57.92 Active 18407 6006 Problem Pain of right upper extremity M79.601 Active 511711945 Problem Respiratory bronchiolitis interstitial lung disease J84.115 Active 333906010 Problem Hypoxia R09.02 Active 491384249 Problem Interstitial lung disease J84.9 Acti ve [id number] ALLERGIES No Information ENCOUNTERS Encounter Location Date Diagnosis [facility] [id number] [place] [address] Aug, [facility] [id number] [place] [address] Aug, Diabetic neuropathy, painful E11.40 ; In terstitial lung disease J84.9 ; Chronic cough R05 ; Type 2 diabetes mellitus with complication E11.8 and kelp [place] current use of insulin Z79.4 [facility] [id number] [place] [address] Jul, [facility] [address] [address] Jul, [facility] [address] [address] Jul, Diabetic neuropathy, painful E11.40 [place] [address] [address] Jul, Type 2 diabetes mellitus with complicati on E11.8 [place] [address] [address] Jun, Diabetic neuropathy, painful E11.40 [place] [address] [address] Jun, [facility] [address] [facility] [id number] [place] [address] Jun, Type 2 diabetes mellitus wit h complication E11.8 ; Other viral agents as the cause of diseases classified elsewhere B97.89 ; Acute upper respiratory infection, unspecified J06.9 ; Acute recurrent maxillary sinusitis J01.01 ; Sore throat J02.9 and Headache R51 [place] [address] [address] Jun, Right lower quadrant abdominal pain R10. 31 and Type 2 diabetes mellitus with complication E11.8 [place] [address] [address] May, Diabetic neuropathy, painful E11.40 [place] [address] [address] May, COPD exacerbation J44.1 and Type 2 diabe chidi mellitus with complication E11.8 [place] [address] [address] Apr, Diabetic neuropathy, painful E11.40 [place] [address] [address] Apr, Diabetic neuropathy, painful E11.40 [facility] [address] [place] [id number] [address] [place] [address] Mar, Bronchitis J40 [place] [address] [address] January, Type 2 diabetes mellitus with complicati on E11.8 ; Diabetic neuropathy, painful E11.40 ; Impotence N52.9 ; Coronary atherosclerosis due to lipid rich plaque I25.83 ; [place] current use of insulin Z79.4 ; Interstitial lung disease J84.9 ; Hypoxia R09.02 ; Essential hypertension I10 ; Gastroesophageal reflux disease without esophagitis K21.9 ; Left upper arm pain M79.622 and Cervical spinal stenosis M48.02 [facility] [place] [id number] [place] [address] January, Viral gastroenteritis A08.[address] [address] Dec, Diabetic neuropathy, painful E11.40 [place] [address] [id number] Oct, [address] [address] Oct, Acute right-sided weakness M62.89 and Sl urring of speech R47.[address] [address] Sep, Type 2 diabetes mellitus with complicati on E11.8 ; Diabetic neuropathy, painful E11.40 ; Impotence N52.9 ; Coronary atherosclerosis due to lipid rich plaque I25.83 ; [place] current use of insulin Z79.4 ; Interstitial lung disease J84.9 ; Hypoxia R09.02 ; Essential hypertension I10 and Gastroesophageal reflux disease without esophagitis K21.9 [facility] [place] [id number] [place] [address] Sep, Bronchitis J40 [facility] [address] [facility] [id number] [address] [place] [address] Aug, Gastroenteritis and colitis, viral A08.4 [facility] [address] [address] Aug, [facility] [address] [address] Jun, Type 2 diabetes mellitus with complicati on E11.8 ; Diabetic neuropathy, painful E11.40 ; Impotence N52.9 ; Coronary atherosclerosis due to lipid rich plaque I25.83 ; care home current use of insulin Z79.4 ; Interstitial lung disease J84.9 ; Hypoxia R09.02 and Essential hypertension I10 [facility] [address] [address] 30 May, 2016 Bronchitis J40 [facility] [address] [address] May, [facility] [address] [address] May, Pain of right upper extremity M79.601 [place] [address] [address] May, [facility] [address] [address] May, [place] [address] [address] May, Right hand pain M79.641 [facility] [address] [address] Apr, [facility] [address] [address] Apr, [place] [address] [address] Mar, [facility] [address] [address] Mar, Essential hypertension I10 [place] [address] [address] Feb, [place] [address] [address] Feb, Interstitial lung disease J84.9 and Bron chitis J40 [place] [address] [address] Feb, [place] [address] [address] Feb, Type 2 diabetes mellitus with complicati on E11.8 ; Impotence N52.9 ; Coronary atherosclerosis due to lipid rich plaque I25.83 ; kelp [place] current use of insulin Z79.4 and Diabetic neuropathy, painful E11.40 [place] [address] [address] January, [place] [address] [address] January, Arm paresthesia, right R20.2 and Pain of right upper extremity M79.601 [place] [address] [address] Dec, Lumbar strain S39.012A [place] [address] [address] Nov, Diabetic neuropathy, painful E11.40 ; Re spiratory bronchiolitis interstitial lung disease J84.115 ; Pain of right upper extremity M79.601 and Arm paresthesia, right R20.2 [place] [address] [address] Nov, Diabetic neuropathy, painful E11.40 [place] [address] [address] Sep, Type 2 diabetes mellitus with complicati on E11.8 ; Impotence N52.9 ; Coronary atherosclerosis due to lipid rich plaque I25.83 ; kelp [place] current use of insulin Z79.4 ; Diabetic neuropathy, painful E11.40 ; Chest pain R07.9 and Restless leg G25.81 [facility] [address] [address] Sep, [facility] [address] [address] Jul, COPD (chronic obstructive pulmonary dise ase) with acute bronchitis J44.0 [place] [address] [address] Jun, Abdominal pain R10.9 ; Family history of colon cancer Z80.0 and Diverticulitis K57.92 [place] [address] [address] Jun, Abdominal pain R10.9 and Diverticulitis K57.92 [place] [address] [address] Apr, Diabetes with other specified manifestat ions, type II or unspecified type, not stated as uncontrolled 250.80 ; Coronary atherosclerosis of unspecified type of vessel, [place] or graft 414.00 ; Unspecified essential hypertension 401.9 ; Impotence of organic origin 607.84 ; Sleep apnea 780.57 and Interstitial lung disease 515 [place] [address] [address] Dec, [place] [address] [address] Dec, [place] [address] [address] Nov, [facility] [address] [address] Nov, [facility] [address] [address] Nov, [facility] [address] [address] Nov, [facility] [address] [address] Nov, [facility] [address] [address] Nov, [facility] [place] [facility] [id number] [place] [address] Nov, [facility] [place] [facility] [id number] [place] [address] Nov, [facility] [place] [facility] [id number] [place] [address] Nov, 2014 [facility] [place] [facility] [id number] [place] [address] Nov, 2014 [facility] [place] [facility] [id number] [place] [address] Oct, 2014 [facility] [place] [facility] [id number] [place] [address] Oct, 2014 [facility] [place] [facility] [id number] [place] [address] Oct, 2014 [facility] [place] [facility] [id number] [place] [address] Oct, 2014 [facility] [place] [facility] [id number] [place] [address] Oct, 2014 [facility] [place] [facility] [id number] [place] [address] Oct, 2014 [facility] [place] [facility] [id number] [place] [address] Oct, 2014 [facility] [place] [facility] [id number] [place] [address] Oct, 2014 [facility] [place] [facility] [id number] [place] [address] Oct, 2014 [facility] [place] [facility] [id number] [place] [address] Oct, 2014 [facility] [place] [facility] [id number] [place] [address] Oct, 2014 [facility] [place] [facility] [id number] [place] [address] Jul, [facility] [place] [facility] [id number] [place] [address] Jul, 2013 [facility] [place] [facility] [id number] [place] [address] Jun, 2013 [facility] [place] [facility] [id number] [place] [address] 29 Jun, 2013 [facility] [place] [facility] [id number] [place] [address] Jun, 2013 [facility] [place] [facility] [id number] [place] [address] 17 Jun, 2013 [facility] [place] [facility] [id number] [place] [address] 15 Jun, 2014 [facility] [place] [facility] [id number] [place] [address] 15 Jun, 2013 [facility] [place] [facility] [id number] [place] [address] 14 Jun, 2013 [facility] [place] [facility] [id number] [place] [address] 14 Jun, 2013 [facility] [place] [facility] [id number] [place] [address] 13 Jun, 2014 [facility] [place] [facility] [id number] [place] [address] 13 Jun, 2013 [facility] [place] [facility] [id number] [place] [address] 08 Jun, 2013 [facility] [place] [facility] [id number] [place] [address] 08 Jun, 2013 [facility] [place] [facility] [id number] [place] [address] 07 Jun, 2013 [facility] [place] [facility] [id number] [place] [address] 07 Jun, 2013 [facility] [place] [facility] [id number] [place] [address] 30 May, 2013 [facility] [place] [facility] [id number] [place] [address] 30 May, 2013 [facility] [place] [facility] [address] [id number] [place] [address] May, [facility] [place] [facility] [address] [facility] [id number] [place] [address] May, [facility] [place] [facility] [id number] [place] [address] May, [facility] [place] [facility] [address] [facility] [id number] [place] [address] May, [facility] [place] [facility] [address] [facility] [id number] [place] [address] Apr, [facility] [place] [facility] [address] [facility] [id number] [place] [address] Apr, [facility] [place] [facility] [id number] [place] [address] Apr, [facility] [place] [facility] [id number] [place] [address] Apr, [facility] [place] [facility] [id number] [place] [address] Apr, [facility] [place] [facility] [id number] [place] [address] Apr, [facility] [place] [facility] [id number] [place] [address] Apr, [facility] [place] [facility] [id number] [place] [address] Apr, [facility] [place] [facility] [id number] [place] [address] Apr, [facility] [place] [facility] [address] [id number] [place] [address] Apr, [facility] [place] [facility] [id number] [place] [address] Apr, [facility] [place] [facility] [id number] [place] [address] Apr, [facility] [place] [facility] [address] [id number] [place] [address] Mar, [facility] [place] [facility] [address] [id number] [place] [address] Mar, [facility] [place] [facility] [address] [facility] [id number] [place] [address] Mar, [facility] [place] [facility] [address] [facility] [id number] [place] [address] Mar, [facility] [place] [facility] [address] [facility] [id number] [place] [address] Mar, [facility] [place] [facility] [address] [facility] [id number] [place] [address] Mar, [facility] [place] [facility] [id number] [place] [address] Mar, [facility] [place] [facility] [id number] [place] [address] Mar, [facility] [place] [facility] [id number] [place] [address] Mar, [facility] [place] [facility] [address] [facility] [id number] [place] [address] Mar, [facility] [place] [facility] [id number] [place] [address] Mar, [facility] [place] [facility] [id number] [place] [address] Feb, [facility] [place] [facility] [address] [facility] [id number] [place] [address] Feb, [facility] [place] [facility] [address] [facility] [id number] [place] [address] Feb, [facility] [place] [facility] [id number] [place] [address] Feb, [facility] [place] [facility] [id number] [place] [address] Feb, [facility] [place] [facility] [id number] [place] [address] Feb, [facility] [place] [facility] [id number] [place] [address] Feb, [facility] [place] [facility] [id number] [place] [address] Feb, [facility] [place] [facility] [id number] [place] [address] Feb, [facility] [place] [facility] [id number] [place] [address] Feb, [facility] [place] [facility] [address] [facility] [id number] [place] [address] January, [facility] [place] [facility] [id number] [place] [address] January, [facility] [place] [facility] [id number] [place] [address] January, [facility] [place] [facility] [id number] [place] [address] January, [facility] [place] [facility] [id number] [place] [address] January, [facility] [place] [facility] [id number] [place] [address] January, [facility] [place] [facility] [id number] [place] [address] January, [facility] [place] [facility] [id number] [place] [address] January, [facility] [place] [facility] [id number] [place] [address] January, [facility] [place] [facility] [id number] [place] [address] January, [facility] [place] [facility] [id number] [place] [address] January, [facility] [place] [facility] [id number] [place] [address] January, [facility] [place] [facility] [id number] [place] [address] January, [facility] [place] [facility] [id number] [place] [address] January, [facility] [place] [facility] [id number] [place] [address] January, [facility] [place] [facility] [id number] [place] [address] January, [facility] [place] [facility] [id number] [place] [address] Dec, [facility] [place] [facility] [id number] [place] [address] Dec, [facility] [place] [facility] [id number] [place] [address] Dec, [facility] [place] [facility] [id number] [place] [address] Dec, [facility] [place] [facility] [id number] [place] [address] Dec, [facility] [place] [facility] [id number] [place] [address] Dec, [facility] [place] [facility] [id number] [place] [address] Dec, [facility] [place] [facility] [id number] [place] [address] Dec, [facility] [place] [facility] [id number] [place] [address] Dec, [facility] [place] [facility] [id number] [place] [address] Dec, [facility] [place] [facility] [id number] [place] [address] Nov, [facility] [place] [facility] [id number] [place] [address] Nov, [facility] [place] [facility] [id number] [place] [address] Oct, [facility] [place] [facility] [id number] [place] [address] 07 Oct, 2013 [facility] [place] [facility] [id number] [place] [address] Oct, [facility] [place] [facility] [id number] [place] [address] Sep, [facility] [place] [facility] [id number] [place] [address] Sep, [facility] [place] [facility] [id number] [place] [address] Sep, [facility] [place] [facility] [id number] [place] [address] Sep, [facility] [place] [facility] [id number] [place] [address] Sep, [facility] [place] [facility] [id number] [place] [address] Sep, [facility] [place] [facility] [id number] [place] [address] Sep, [facility] [place] [facility] [id number] [place] [address] Sep, [facility] [place] [facility] [id number] [place] [address] Sep, [facility] [place] [facility] [id number] [place] [address] Sep, [facility] [place] [facility] [id number] [place] [address] Sep, [facility] [place] [facility] [id number] [place] [address] Sep, [facility] [place] [facility] [id number] [place] [address] Aug, [facility] [place] [facility] [id number] [place] [address] Aug, [facility] [place] [facility] [id number] [place] [address] Aug, [facility] [place] [facility] [id number] [place] [address] Aug, 2012 [facility] [place] [facility] [id number] [place] [address] Jul, [facility] [place] [facility] [id number] [place] [address] Jul, [facility] [place] [facility] [id number] [place] [address] Jun, [facility] [place] [facility] [id number] [place] [address] Jun, [facility] [place] [facility] [id number] [place] [address] Jun, [facility] [place] [facility] [id number] [place] [address] Jun, [facility] [place] [facility] [id number] [place] [address] Jun, [facility] [place] [facility] [id number] [place] [address] Jun, [facility] [place] [facility] [id number] [place] [address] Jun, [facility] [place] [facility] [id number] [place] [address] Jun, [facility] [place] [facility] [id number] [place] [address] 24 May, 2012 [facility] [place] [facility] [id number] [place] [address] 23 Sep, 2012 [facility] [place] [facility] [id number] [place] [address] 18 Sep, 2012 [facility] [place] [facility] [id number] [place] [address] 13 Sep, 2012 [facility] [place] [facility] [id number] [place] [address] 11 Sep, 2012 [facility] [place] [facility] [address] [id number] [place] [address] May, [facility] [place] [facility] [address] [id number] [place] [address] May, [facility] [place] [facility] [address] [facility] [id number] [place] [address] Apr, [facility] [place] [facility] [id number] [place] [address] Apr, [facility] [place] [facility] [address] [facility] [id number] [place] [address] Apr, [facility] [place] [facility] [address] [id number] [place] [address] Apr, [facility] [place] [facility] [id number] [place] [address] Apr, [facility] [place] [facility] [id number] [place] [address] Apr, [facility] [place] [facility] [id number] [place] [address] Apr, [facility] [place] [facility] [address] [facility] [id number] [place] [address] Mar, [facility] [place] [facility] [id number] [place] [address] Mar, [facility] [place] [facility] [id number] [place] [address] Mar, [facility] [place] [facility] [id number] [place] [address] Mar, [facility] [place] [facility] [address] [facility] [id number] [place] [address] Mar, [facility] [place] [facility] [id number] [place] [address] Mar, [facility] [place] [facility] [address] [facility] [id number] [place] [address] Mar, [facility] [place] [facility] [id number] [place] [address] Mar, [facility] [place] [facility] [address] [id number] [place] [address] 18 Feb, 2013 [facility] [place] [facility] [address] [id number] [place] [address] Feb, [facility] [place] [facility] [id number] [place] [address] Feb, [facility] [place] [facility] [id number] [place] [address] January, [facility] [place] [facility] [id number] [place] [address] January, [facility] [place] [facility] [id number] [place] [address] January, [facility] [place] [facility] [id number] [place] [address] January, [facility] [place] [facility] [id number] [place] [address] January, [facility] [place] [facility] [id number] [place] [address] January, [facility] [place] [facility] [id number] [place] [address] January, [facility] [id number] [place] [address] January, [facility] [id number] [place] [address] Dec, [facility] [id number] [place] [address] Dec, [facility] [id number] [place] [address] Dec, [facility] [id number] [place] [address] Dec, [facility] [id number] [place] [address] Dec, [facility] [id number] [place] [address] Nov, [facility] [id number] [place] [address] 21 Nov, 2012 [facility] [id number] [place] [address] 19 Nov, 2012 [facility] [id number] [place] [address] 18 Nov, 2012 [facility] [id number] [place] [address] 18 Nov, 2012 [facility] [address] [facility] [id number] [place] [address] 14 Nov, 2012 [facility] [id number] [place] [address] 11 Nov, 2012 [facility] [id number] [place] [address] Nov, [facility] [id number] [place] [address] Oct, [facility] [id number] [place] [address] Oct, [facility] [id number] [place] [address] 12 Oct, 2012 [facility] [id number] [place] [address] 08 Oct, 2012 [facility] [id number] [place] [address] 07 Oct, 2012 [facility] [id number] [place] [address] 07 Oct, 2012 [facility] [id number] [place] [address] 05 Oct, 2012 [facility] [id number] [place] [address] 04 Oct, 2012 [facility] [id number] [place] [address] 04 Oct, 2012 [facility] [id number] [place] [address] Sep, [facility] [id number] [place] [address] Sep, [facility] [id number] [place] [address] Sep, [facility] [id number] [place] [address] Sep, [facility] [id number] [place] [address] Sep, [facility] [id number] [place] [address] Sep, [facility] [id number] [place] [address] Aug, [facility] [id number] [place] [address] Aug, [facility] [id number] [place] [address] Aug, [facility] [id number] [place] [address] Aug, [facility] [id number] [place] [address] Aug, [facility] [id number] [place] [address] Aug, [facility] [id number] [place] [address] Aug, [facility] [id number] [place] [address] Aug, [facility] [id number] [place] [address] Aug, [facility] [id number] [place] [address] Jul, [facility] [id number] [place] [address] Jul, [facility] [id number] [place] [address] Jul, [facility] [address] [address] Jul, [facility] [address] [address] Nov, [facility] [address] [address] Sep, [facility] [address] [address] Aug, [facility] [address] [address] Aug, [facility] [address] [address] Aug, [facility] [address] [address] Jul, IMMUNIZATIONS No Known Immunizations SOCIAL HISTORY [...]
--- OUTSIDE RECORDS SUMMARY | 2020-01-01 11:07 | XMS REPORT ---
Author Author Miguel rFeeman Doctor Organization [facility] Address Unknown Phone Unavailable Care Team Providers Care Supervisor [employer] Name Role Phone Migration, Doctor Unavailable Unavailable PROBLEMS Type Condition ICD9-CM Code QJM17-ER Code Onset Dates Condition S tatus SNOMED Code Problem Neuropathy G62.9 Active 706193897 Problem Essential hypertension I10 Active 18003007 Problem retirement current use of insulin Z79.4 Active 925312211 Problem Abdominal pain R10.9 Active 79765 001 Problem Change in bowel habit R19.4 Active 51200923 Problem Coronary atherosclerosis due to lipid rich plaque I25.83 Active 55732962 Problem Type 2 diabetes mellitus with complication E11.8 Active 70597798 Problem Impotence N52.9 Active 142824767 Problem Family history of colon cancer Z80.0 Active 112063674 Problem Diabetic neuropathy, painful E11.40 A ctive 618828090 Problem Arm paresthesia, right R20.2 Active 82440825 Problem Gastroesophageal reflux disease without esophagitis K21.9 Active 664182307 Problem Drug abuse, opioid type F11.10 Active 7179814 Problem COPD exacerbation J44.1 Active 19 5603253 Problem Obstructive sleep apnea syndrome G47.33 Active 01889949 Problem Diverticulitis K57.92 Active 82808 6006 Problem Pain of right upper extremity M79.601 Active 152553546 Problem Respiratory bronchiolitis interstitial lung disease J84.115 Active 975691769 Problem Hypoxia R09.02 Active 881862534 Problem Interstitial lung disease J84.9 Acti ve [id number] ALLERGIES No Information ENCOUNTERS Encounter Location Date Diagnosis [facility] [address] [id number] [place] [address] Aug, [facility] [address] [facility] [place] [address] Aug, Diabetic neuropathy, painful E11.40 ; In terstitial lung disease J84.9 ; Chronic cough R05 ; Type 2 diabetes mellitus with complication E11.8 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 [facility] [id number] [place] [address] Jul, [facility] [address] [address] Jul, [facility] [address] [address] Jul, Diabetic neuropathy, painful E11.40 [place] [address] [address] Jul, Type 2 diabetes mellitus with complicati on E11.8 [place] [address] [address] Jun, Diabetic neuropathy, painful E11.40 [place] [address] [address] Jun, [facility] [address] [facility] [id number] [place] [address] Jun, Type 2 diabetes mellitus wit h complication E11.8 ; Other viral agents as the cause of diseases classified elsewhere B97.89 ; Acute upper respiratory infection, unspecified J06.9 ; Acute recurrent maxillary sinusitis J01.01 ; Sore throat J02.9 and Headache R51 [place] [address] [address] Jun, Right lower quadrant abdominal pain R10. 31 and Type 2 diabetes mellitus with complication E11.8 [place] [address] [address] May, Diabetic neuropathy, painful E11.40 [place] [address] [address] May, COPD exacerbation J44.1 and Type 2 diabe chidi mellitus with complication E11.8 [place] [address] [address] Apr, Diabetic neuropathy, painful E11.40 [place] [address] [address] Apr, Diabetic neuropathy, painful E11.40 [facility] [address] [place] [id number] [address] [place] [address] Mar, Bronchitis J40 [place] [address] [address] January, Type 2 diabetes mellitus with complicati on E11.8 ; Diabetic neuropathy, painful E11.40 ; Impotence N52.9 ; Coronary atherosclerosis due to lipid rich plaque I25.83 ; 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 ; Interstitial lung disease J84.9 ; Hypoxia R09.02 ; Essential hypertension I10 ; Gastroesophageal reflux disease without esophagitis K21.9 ; Left upper arm pain M79.622 and Cervical spinal stenosis M48.02 [facility] [place] [id number] [place] [address] January, Viral gastroenteritis A08.[address] [address] Dec, Diabetic neuropathy, painful E11.40 [place] [address] [id number] Oct, [address] [address] Oct, Acute right-sided weakness M62.89 and [address] urring of speech R47.[address] [address] Sep, Type 2 diabetes mellitus with complicati on E11.8 ; Diabetic neuropathy, painful E11.40 ; Impotence N52.9 ; Coronary atherosclerosis due to lipid rich plaque I25.83 ; 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 ; Interstitial lung disease J84.9 ; Hypoxia R09.02 ; Essential hypertension I10 and Gastroesophageal reflux disease without esophagitis K21.9 [facility] [place] [id number] [place] [address] Sep, Bronchitis J40 [facility] [address] [facility] [id number] [address] [place] [address] Aug, Gastroenteritis and colitis, viral A08.4 [facility] [address] [address] Aug, [facility] [address] [address] Jun, Type 2 diabetes mellitus with complicati on E11.8 ; Diabetic neuropathy, painful E11.40 ; Impotence N52.9 ; Coronary atherosclerosis due to lipid rich plaque I25.83 ; retirement current use of insulin Z79.4 ; Interstitial lung disease J84.9 ; Hypoxia R09.02 and Essential hypertension I10 [facility] [address] [address] 30 May, 2016 Bronchitis J40 [facility] [address] [address] May, [facility] [address] [address] May, Pain of right upper extremity M79.601 [place] [address] [address] May, [facility] [address] [address] May, [place] [address] [address] May, Right hand pain M79.641 [facility] [address] [address] Apr, [facility] [address] [address] Apr, [place] [address] [address] Mar, [facility] [address] [address] Mar, Essential hypertension I10 [place] [address] [address] Feb, [place] [address] [address] Feb, Interstitial lung disease J84.9 and Bron chitis J40 [place] [address] [address] Feb, [place] [address] [address] Feb, Type 2 diabetes mellitus with complicati on E11.8 ; Impotence N52.9 ; Coronary atherosclerosis due to lipid rich plaque I25.83 ; 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 and Diabetic neuropathy, painful E11.40 [place] [address] [address] January, [place] [address] [address] January, Arm paresthesia, right R20.2 and Pain of right upper extremity M79.601 [place] [address] [address] Dec, Lumbar strain S39.012A [place] [address] [address] Nov, Diabetic neuropathy, painful E11.40 ; Re spiratory bronchiolitis interstitial lung disease J84.115 ; Pain of right upper extremity M79.601 and Arm paresthesia, right R20.2 [place] [address] [address] Nov, Diabetic neuropathy, painful E11.40 [place] [address] [address] Sep, Type 2 diabetes mellitus with complicati on E11.8 ; Impotence N52.9 ; Coronary atherosclerosis due to lipid rich plaque I25.83 ; 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 ; Diabetic neuropathy, painful E11.40 ; Chest pain R07.9 and Restless leg G25.81 [facility] [address] [address] Sep, [facility] [address] [address] Jul, COPD (chronic obstructive pulmonary dise ase) with acute bronchitis J44.0 [place] [address] [address] Jun, Abdominal pain R10.9 ; Family history of colon cancer Z80.0 and Diverticulitis K57.92 [place] [address] [address] Jun, Abdominal pain R10.9 and Diverticulitis K57.92 [place] [address] [address] Apr, Diabetes with other specified manifestat ions, type II or unspecified type, not stated as uncontrolled 250.80 ; Coronary atherosclerosis of unspecified type of vessel, [place] or graft 414.00 ; Unspecified essential hypertension 401.9 ; Impotence of organic origin 607.84 ; Sleep apnea 780.57 and Interstitial lung disease 515 [place] [address] [address] Dec, [place] [address] [address] Dec, [place] [address] [address] Nov, [facility] [address] [address] Nov, [facility] [address] [address] Nov, [facility] [address] [address] Nov, [facility] [address] [address] Nov, [facility] [address] [address] Nov, [facility] [place] [facility] [address] [id number] [place] [address] Nov, [facility] [place] [facility] [address] [id number] [place] [address] Nov, [facility] [place] [facility] [address] [id number] [place] [address] Nov, 2014 [facility] [place] [facility] [address] [id number] [place] [address] Nov, 2014 [facility] [place] [facility] [address] [id number] [place] [address] Oct, 2014 [facility] [place] [facility] [address] [id number] [place] [address] Oct, 2014 [facility] [place] [facility] [address] [id number] [place] [address] Oct, 2014 [facility] [place] [facility] [address] [id number] [place] [address] Oct, 2014 [facility] [place] [facility] [address] [id number] [place] [address] Oct, 2014 [facility] [place] [facility] [address] [id number] [place] [address] Oct, 2014 [facility] [place] [facility] [address] [id number] [place] [address] Oct, 2014 [facility] [place] [facility] [address] [id number] [place] [address] Oct, 2014 [facility] [place] [facility] [address] [id number] [place] [address] Oct, 2014 [facility] [place] [facility] [address] [id number] [place] [address] Oct, 2014 [facility] [place] [facility] [address] [id number] [place] [address] Oct, 2014 [facility] [place] [facility] [address] [id number] [place] [address] Jul, [facility] [place] [facility] [address] [id number] [place] [address] Jul, 2013 [facility] [place] [facility] [address] [id number] [place] [address] Jun, 2013 [facility] [place] [facility] [address] [id number] [place] [address] 29 Jun, 2013 [facility] [place] [facility] [address] [id number] [place] [address] Jun, 2013 [facility] [place] [facility] [address] [id number] [place] [address] 17 Jun, 2013 [facility] [place] [facility] [address] [id number] [place] [address] 15 Jun, 2014 [facility] [place] [facility] [address] [id number] [place] [address] 15 Jun, 2013 [facility] [place] [facility] [address] [id number] [place] [address] 14 Jun, 2013 [facility] [place] [facility] [address] [id number] [place] [address] 14 Jun, 2013 [facility] [place] [facility] [address] [id number] [place] [address] 13 Jun, 2014 [facility] [place] [facility] [address] [id number] [place] [address] 13 Jun, 2013 [facility] [place] [facility] [address] [id number] [place] [address] 08 Jun, 2013 [facility] [place] [facility] [address] [id number] [place] [address] 08 Jun, 2013 [facility] [place] [facility] [address] [id number] [place] [address] 07 Jun, 2013 [facility] [place] [facility] [address] [id number] [place] [address] 07 Jun, 2013 [facility] [place] [facility] [address] [id number] [place] [address] 30 May, 2013 [facility] [place] [facility] [address] [id number] [place] [address] 30 May, 2013 [facility] [place] [facility] [address] [id number] [place] [address] May, [facility] [place] [facility] [address] [facility] [id number] [place] [address] May, [facility] [place] [facility] [address] [id number] [place] [address] May, [facility] [place] [facility] [address] [facility] [id number] [place] [address] May, [facility] [place] [facility] [address] [facility] [id number] [place] [address] Apr, [facility] [place] [facility] [address] [facility] [id number] [place] [address] Apr, [facility] [place] [facility] [address] [id number] [place] [address] Apr, [facility] [place] [facility] [address] [id number] [place] [address] Apr, [facility] [place] [facility] [address] [id number] [place] [address] Apr, [facility] [place] [facility] [address] [id number] [place] [address] Apr, [facility] [place] [facility] [address] [id number] [place] [address] Apr, [facility] [place] [facility] [address] [id number] [place] [address] Apr, [facility] [place] [facility] [address] [id number] [place] [address] Apr, [facility] [place] [facility] [address] [id number] [place] [address] Apr, [facility] [place] [facility] [address] [id number] [place] [address] Apr, [facility] [place] [facility] [address] [id number] [place] [address] Apr, [facility] [place] [facility] [address] [id number] [place] [address] Mar, [facility] [place] [facility] [address] [id number] [place] [address] Mar, [facility] [place] [facility] [address] [facility] [id number] [place] [address] Mar, [facility] [place] [facility] [address] [facility] [id number] [place] [address] Mar, [facility] [place] [facility] [address] [facility] [id number] [place] [address] Mar, [facility] [place] [facility] [address] [facility] [id number] [place] [address] Mar, [facility] [place] [facility] [address] [id number] [place] [address] Mar, [facility] [place] [facility] [address] [id number] [place] [address] Mar, [facility] [place] [facility] [address] [id number] [place] [address] Mar, [facility] [place] [facility] [address] [facility] [id number] [place] [address] Mar, [facility] [place] [facility] [address] [id number] [place] [address] Mar, [facility] [place] [facility] [address] [id number] [place] [address] Feb, [facility] [place] [facility] [address] [facility] [id number] [place] [address] Feb, [facility] [place] [facility] [address] [facility] [id number] [place] [address] Feb, [facility] [place] [facility] [address] [id number] [place] [address] Feb, [facility] [place] [facility] [address] [id number] [place] [address] Feb, [facility] [place] [facility] [address] [id number] [place] [address] Feb, [facility] [place] [facility] [address] [id number] [place] [address] Feb, [facility] [place] [facility] [address] [id number] [place] [address] Feb, [facility] [place] [facility] [address] [id number] [place] [address] Feb, [facility] [place] [facility] [address] [id number] [place] [address] Feb, [facility] [place] [facility] [address] [facility] [id number] [place] [address] January, [facility] [place] [facility] [address] [id number] [place] [address] January, [facility] [place] [facility] [address] [id number] [place] [address] January, [facility] [place] [facility] [address] [id number] [place] [address] January, [facility] [place] [facility] [address] [id number] [place] [address] January, [facility] [place] [facility] [address] [id number] [place] [address] January, [facility] [place] [facility] [address] [id number] [place] [address] January, [facility] [place] [facility] [address] [id number] [place] [address] January, [facility] [place] [facility] [address] [id number] [place] [address] January, [facility] [place] [facility] [address] [id number] [place] [address] January, [facility] [place] [facility] [address] [id number] [place] [address] January, [facility] [place] [facility] [address] [id number] [place] [address] January, [facility] [place] [facility] [address] [id number] [place] [address] January, [facility] [place] [facility] [address] [id number] [place] [address] January, [facility] [place] [facility] [address] [id number] [place] [address] January, [facility] [place] [facility] [address] [id number] [place] [address] January, [facility] [place] [facility] [address] [id number] [place] [address] Dec, [facility] [place] [facility] [address] [id number] [place] [address] Dec, [facility] [place] [facility] [address] [id number] [place] [address] Dec, [facility] [place] [facility] [address] [id number] [place] [address] Dec, [facility] [place] [facility] [address] [id number] [place] [address] Dec, [facility] [place] [facility] [address] [id number] [place] [address] Dec, [facility] [place] [facility] [address] [id number] [place] [address] Dec, [facility] [place] [facility] [address] [id number] [place] [address] Dec, [facility] [place] [facility] [address] [id number] [place] [address] Dec, [facility] [place] [facility] [address] [id number] [place] [address] Dec, [facility] [place] [facility] [address] [id number] [place] [address] Nov, [facility] [place] [facility] [address] [id number] [place] [address] Nov, [facility] [place] [facility] [address] [id number] [place] [address] Oct, [facility] [place] [facility] [address] [id number] [place] [address] 07 Oct, 2013 [facility] [place] [facility] [address] [id number] [place] [address] Oct, [facility] [place] [facility] [address] [id number] [place] [address] Sep, [facility] [place] [facility] [address] [id number] [place] [address] Sep, [facility] [place] [facility] [address] [id number] [place] [address] Sep, [facility] [place] [facility] [address] [id number] [place] [address] Sep, [facility] [place] [facility] [address] [id number] [place] [address] Sep, [facility] [place] [facility] [address] [id number] [place] [address] Sep, [facility] [place] [facility] [address] [id number] [place] [address] Sep, [facility] [place] [facility] [address] [id number] [place] [address] Sep, [facility] [place] [facility] [address] [id number] [place] [address] Sep, [facility] [place] [facility] [address] [id number] [place] [address] Sep, [facility] [place] [facility] [address] [id number] [place] [address] Sep, [facility] [place] [facility] [address] [id number] [place] [address] Sep, [facility] [place] [facility] [address] [id number] [place] [address] Aug, [facility] [place] [facility] [address] [id number] [place] [address] Aug, [facility] [place] [facility] [address] [id number] [place] [address] Aug, [facility] [place] [facility] [address] [id number] [place] [address] Aug, 2012 [facility] [place] [facility] [address] [id number] [place] [address] Jul, [facility] [place] [facility] [address] [id number] [place] [address] Jul, [facility] [place] [facility] [address] [id number] [place] [address] Jun, [facility] [place] [facility] [address] [id number] [place] [address] Jun, [facility] [place] [facility] [address] [id number] [place] [address] Jun, [facility] [place] [facility] [address] [id number] [place] [address] Jun, [facility] [place] [facility] [address] [id number] [place] [address] Jun, [facility] [place] [facility] [address] [id number] [place] [address] Jun, [facility] [place] [facility] [address] [id number] [place] [address] Jun, [facility] [place] [facility] [address] [id number] [place] [address] Jun, [facility] [place] [facility] [address] [id number] [place] [address] 24 May, 2012 [facility] [place] [facility] [address] [id number] [place] [address] 23 Sep, 2012 [facility] [place] [facility] [address] [id number] [place] [address] 18 Sep, 2012 [facility] [place] [facility] [address] [id number] [place] [address] 13 Sep, 2012 [facility] [place] [facility] [address] [id number] [place] [address] 11 Sep, 2012 [facility] [place] [facility] [address] [id number] [place] [address] May, [facility] [place] [facility] [address] [id number] [place] [address] May, [facility] [place] [facility] [address] [facility] [id number] [place] [address] Apr, [facility] [place] [facility] [address] [id number] [place] [address] Apr, [facility] [place] [facility] [address] [facility] [id number] [place] [address] Apr, [facility] [place] [facility] [address] [id number] [place] [address] Apr, [facility] [place] [facility] [address] [id number] [place] [address] Apr, [facility] [place] [facility] [address] [id number] [place] [address] Apr, [facility] [place] [facility] [address] [id number] [place] [address] Apr, [facility] [place] [facility] [address] [facility] [id number] [place] [address] Mar, [facility] [place] [facility] [address] [id number] [place] [address] Mar, [facility] [place] [facility] [address] [id number] [place] [address] Mar, [facility] [place] [facility] [address] [id number] [place] [address] Mar, [facility] [place] [facility] [address] [facility] [id number] [place] [address] Mar, [facility] [place] [facility] [address] [id number] [place] [address] Mar, [facility] [place] [facility] [address] [facility] [id number] [place] [address] Mar, [facility] [place] [facility] [address] [id number] [place] [address] Mar, [facility] [address] [id number] [place] [address] 18 Feb, 2013 [facility] [address] [id number] [place] [address] Feb, [facility] [address] [id number] [place] [address] Feb, [facility] [address] [id number] [place] [address] January, [facility] [address] [id number] [place] [address] January, [facility] [address] [id number] [place] [address] January, [facility] [address] [id number] [place] [address] January, [facility] [address] [id number] [place] [address] January, [facility] [address] [id number] [place] [address] January, [facility] [address] [id number] [place] [address] January, [facility] [address] [id number] [place] [address] January, [facility] [address] [id number] [place] [address] Dec, [facility] [address] [id number] [place] [address] Dec, [facility] [address] [id number] [place] [address] Dec, [facility] [address] [id number] [place] [address] Dec, [facility] [address] [id number] [place] [address] Dec, [facility] [address] [id number] [place] [address] Nov, [facility] [address] [id number] [place] [address] 21 Nov, 2012 [facility] [address] [id number] [place] [address] 19 Nov, 2012 [facility] [address] [id number] [place] [address] 18 Nov, 2012 [facility] [address] [id number] [place] [address] 18 Nov, 2012 [facility] [address] [facility] [id number] [place] [address] 14 Nov, 2012 [facility] [address] [id number] [place] [address] 11 Nov, 2012 [facility] [address] [id number] [place] [address] Nov, [facility] [address] [id number] [place] [address] Oct, [facility] [address] [id number] [place] [address] Oct, [facility] [address] [id number] [place] [address] 12 Oct, 2012 [facility] [address] [id number] [place] [address] 08 Oct, 2012 [facility] [address] [id number] [place] [address] 07 Oct, 2012 [facility] [address] [id number] [place] [address] 07 Oct, 2012 [facility] [address] [id number] [place] [address] 05 Oct, 2012 [facility] [address] [id number] [place] [address] 04 Oct, 2012 [facility] [address] [id number] [place] [address] 04 Oct, 2012 [facility] [address] [id number] [place] [address] Sep, [facility] [address] [id number] [place] [address] Sep, [facility] [address] [id number] [place] [address] Sep, [facility] [address] [id number] [place] [address] Sep, [facility] [address] [id number] [place] [address] Sep, [facility] [address] [id number] [place] [address] Sep, [facility] [address] [id number] [place] [address] Aug, [facility] [address] [id number] [place] [address] Aug, [facility] [address] [id number] [place] [address] Aug, [facility] [address] [id number] [place] [address] Aug, [facility] [address] [id number] [place] [address] Aug, [facility] [address] [id number] [place] [address] Aug, [facility] [address] [id number] [place] [address] Aug, [facility] [address] [id number] [place] [address] Aug, [facility] [address] [id number] [place] [address] Aug, [facility] [address] [id number] [place] [address] Jul, [facility] [address] [id number] [place] [address] Jul, [facility] [address] [id number] [place] [address] Jul, [facility] [address] [address] Jul, [facility] [id number] [place] [address] Nov, [facility] [address] [address] Sep, [facility] [address] [address] Aug, [facility] [address] [address] Aug, [facility] [address] [address] Aug, [facility] [address] [address] Jul, IMMUNIZATIONS No Known Immunizations SOCIAL HISTORY Never Assessed REASON FOR VISIT PLAN OF CARE VITAL SIGNS Height 74 in 2013-10-23 Weight 251.1 lbs 2013-10-23 Temperature 98 degrees Fahrenheit 2013-10-23 Heart Rate 82 bpm 2013-10-23 Respiratory Rate 22 2013-10-23 Blood pressure systolic 130 mmHg 2013-10-23 Blood pressure diastolic 86 mmHg 2013-10-23 MEDICATIONS Unknown Medications RESULTS No Results PROCEDURES Procedure Date Ordered Result Body Site GLYCATED HEMOGLOBIN TEST Oct 23, 2013 INSTRUCTIONS MEDICATIONS ADMINISTERED No Known Medications MEDICAL [...] 05/2005 [facility] History Colonoscopy Elijah (1 Polyp) repeat 5 year s 2019 2014 Surgical History right rotator cuff surgery 06/27/2016 Hospitalization History Overdosed on Clonazepam #35. Lori parvin 03/2014 Hospitalization History Overdosed on Xanax 07/2012 Hospitalization History Hypostension-medication side effect-[facility] 03/13/16
--- OUTSIDE RECORDS SUMMARY | 2020-01-01 11:07 | XMS REPORT ---
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10 Active 6132559 Problem COPD exacerbation J44.1 Active 19 9742385 Problem Obstructive sleep apnea syndrome G47.33 Active 38185132 Problem Diverticulitis K57.92 Active 40059 6006 Problem Pain of right upper extremity M79.601 Active 445507056 Problem Respiratory bronchiolitis interstitial lung disease J84.115 Active 845827848 Problem Hypoxia R09.02 Active 790301195 Problem Interstitial lung disease J84.9 Acti ve [id number] ALLERGIES No Information ENCOUNTERS Encounter Location Date Diagnosis [facility] [address] [facility] [place] [address] Aug, [facility] [address] [facility] [place] [address] Aug, Diabetic neuropathy, painful E11.40 ; In terstitial lung disease J84.9 ; Chronic cough R05 ; Type 2 diabetes mellitus with complication E11.8 and custodial current use of insulin Z79.4 [place] [address] [address] Jul, [facility] [place] [address] [address] Jul, [place] [address] [address] Jul, Diabetic neuropathy, painful E11.40 [place] [address] [address] Jul, Type 2 diabetes mellitus with complicati on E11.8 [place] [address] [address] Jun, Diabetic neuropathy, painful E11.40 [place] [address] [address] Jun, [facility] [address] [facility] [id number] [address] [place] [address] Jun, Type 2 diabetes mellitus wit h complication E11.8 ; Other viral agents as the cause of diseases classified elsewhere B97.89 ; Acute upper respiratory infection, unspecified J06.9 ; Acute recurrent maxillary sinusitis J01.01 ; Sore throat J02.9 and Headache R51 [place] [address] [address] Jun, Right lower quadrant abdominal pain R10. 31 and Type 2 diabetes mellitus with complication E11.8 [place] [address] [address] May, Diabetic neuropathy, painful E11.[address] [address] May, COPD exacerbation J44.1 and Type 2 diabe chidi mellitus with complication E11.8 [place] [address] [address] Apr, Diabetic neuropathy, painful E11.40 [place] [address] [address] [place] [id number] [place] [address] Apr, Diabetic neuropathy, painful E11.40 [facility] [place] [address] [address] [place] [id number] [place] [address] Mar, Bronchitis J40 [place] [address] [address] January, Type 2 diabetes mellitus with complicati on E11.8 ; Diabetic neuropathy, painful E11.40 ; Impotence N52.9 ; Coronary atherosclerosis due to lipid rich plaque I25.83 ; custodial current use of insulin Z79.4 ; Interstitial lung disease J84.9 ; Hypoxia R09.02 ; Essential hypertension I10 ; Gastroesophageal reflux disease without esophagitis K21.9 ; Left upper arm pain M79.622 and Cervical spinal stenosis M48.02 [facility] [place] [id number] [place] [address] January, Viral gastroenteritis A08.4 [place] [address] [address] Dec, Diabetic neuropathy, painful E11.40 [place] [id number] [place] [address] [id number] Oct, [address] [address] Oct, Acute right-sided weakness M62.89 and Sl urring of speech R47.81 [place] [address] [address] [place] [id number] [place] [address] Sep, Type 2 diabetes mellitus with complicati on E11.8 ; Diabetic neuropathy, painful E11.40 ; Impotence N52.9 ; Coronary atherosclerosis due to lipid rich plaque I25.83 ; 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 ; Interstitial lung disease J84.9 ; Hypoxia R09.02 ; Essential hypertension I10 and Gastroesophageal reflux disease without esophagitis K21.9 [facility] [place] [address] [place] [id number] [place] [address] 07 Sep, 2016 Bronchitis J40 [facility] [address] [facility] [id number] [place] [address] Aug, Gastroenteritis and colitis, viral A08.4 [facility] [place] [address] [address] Aug, [facility] [place] [address] [address] Jun, Type 2 diabetes mellitus with complicati on E11.8 ; Diabetic neuropathy, painful E11.40 ; Impotence N52.9 ; Coronary atherosclerosis due to lipid rich plaque I25.83 ; 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 ; Interstitial lung disease J84.9 ; Hypoxia R09.02 and Essential hypertension I10 [facility] [place] [address] [address] 30 May, 2016 Bronchitis J40 [facility] [address] [address] 29 May, 2016 [facility] [address] [address] 20 May, 2016 Pain of right upper extremity M79.601 [facility] [place] [address] [address] May, [facility] [address] [address] 15 May, 2016 [facility] [place] [address] [address] 07 May, 2016 Right hand pain M79.641 [facility] [place] [address] [address] Apr, [facility] [place] [address] [address] Apr, [facility] [address] [address] Mar, [facility] [place] [address] [address] Mar, Essential hypertension I10 [place] [address] [address] Feb, [place] [address] [address] Feb, Interstitial lung disease J84.9 and Bron chitis J40 [place] [address] [address] Feb, [place] [address] [address] Feb, Type 2 diabetes mellitus with complicati on E11.8 ; Impotence N52.9 ; Coronary atherosclerosis due to lipid rich plaque I25.83 ; 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 and Diabetic neuropathy, painful E11.40 [place] [address] [address] January, [place] [address] [address] January, Arm paresthesia, right R20.2 and Pain of right upper extremity M79.601 [place] [address] [address] Dec, Lumbar strain S39.012A [place] [address] [address] Nov, Diabetic neuropathy, painful E11.40 ; Re spiratory bronchiolitis interstitial lung disease J84.115 ; Pain of right upper extremity M79.601 and Arm paresthesia, right R20.2 [place] [address] [address] Nov, Diabetic neuropathy, painful E11.40 [place] [address] [address] Sep, Type 2 diabetes mellitus with complicati on E11.8 ; Impotence N52.9 ; Coronary atherosclerosis due to lipid rich plaque I25.83 ; 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 ; Diabetic neuropathy, painful E11.40 ; Chest pain R07.9 and Restless leg G25.81 [place] [address] [address] Sep, [place] [address] [address] Jul, COPD (chronic obstructive pulmonary dise ase) with acute bronchitis J44.[address] [address] Jun, Abdominal pain R10.9 ; Family history of colon cancer Z80.0 and Diverticulitis K57.[address] [address] Jun, Abdominal pain R10.9 and Diverticulitis K57.[address] [address] Apr, Diabetes with other specified manifestat ions, type II or unspecified type, not stated as uncontrolled 250.80 ; Coronary atherosclerosis of unspecified type of vessel, [place] or graft 414.00 ; Unspecified essential hypertension 401.9 ; Impotence of organic origin 607.84 ; Sleep apnea 780.57 and Interstitial lung disease 515 [place] [address] [address] Dec, [address] [address] Dec, [place] [address] [address] Nov, [place] [address] [address] Nov, [place] [address] [address] Nov, [address] [address] Nov, [address] [address] Nov, 2014 [facility] [place] [facility] [id number] [place] [address] Nov, [facility] [place] [facility] [id number] [place] [address] Nov, 2014 [facility] [place] [facility] [id number] [place] [address] Nov, 2014 [facility] [place] [facility] [id number] [place] [address] Nov, 2014 [facility] [place] [facility] [id number] [place] [address] Nov, 2014 [facility] [place] [facility] [id number] [place] [address] Oct, 2014 [facility] [place] [facility] [id number] [place] [address] Oct, 2014 [facility] [place] [facility] [id number] [place] [address] Oct, 2014 [facility] [place] [facility] [id number] [place] [address] Oct, 2014 [facility] [place] [facility] [id number] [place] [address] Oct, 2014 [facility] [place] [facility] [id number] [place] [address] Oct, 2014 [facility] [place] [facility] [id number] [place] [address] Oct, 2014 [facility] [place] [facility] [id number] [place] [address] Oct, 2014 [facility] [place] [facility] [id number] [place] [address] Oct, 2014 [facility] [place] [facility] [id number] [place] [address] Oct, 2014 [facility] [place] [facility] [id number] [place] [address] Oct, [facility] [place] [facility] [address] [facility] [id number] [place] [address] Jul, 2013 [facility] [place] [facility] [id number] [place] [address] Jul, 2013 [facility] [place] [facility] [id number] [place] [address] Jun, 2013 [facility] [place] [facility] [id number] [place] [address] Jun, 2013 [facility] [place] [facility] [id number] [place] [address] Jun, 2013 [facility] [place] [facility] [id number] [place] [address] Jun, 2013 [facility] [place] [facility] [id number] [place] [address] 15 Jun, 2014 [facility] [place] [facility] [id number] [place] [address] 15 Jun, 2013 [facility] [place] [facility] [id number] [place] [address] 14 Jun, 2014 [facility] [place] [facility] [id number] [place] [address] 14 Jun, 2014 [facility] [place] [facility] [id number] [place] [address] Jun, 2013 [facility] [place] [facility] [id number] [place] [address] Jun, [facility] [place] [facility] [id number] [place] [address] 08 Jun, 2013 [facility] [place] [facility] [id number] [place] [address] 08 Jun, 2014 [facility] [place] [facility] [id number] [place] [address] Jun, 2013 [facility] [place] [facility] [id number] [place] [address] Jun, 2013 [facility] [place] [facility] [id number] [place] [address] May, 2013 [facility] [place] [facility] [address] [id number] [facility] [place] [address] 30 May, 2014 [facility] [place] [facility] [address] [facility] [id number] [facility] [place] [address] May, 2013 [facility] [place] [facility] [id number] [facility] [place] [address] May, 2013 [facility] [place] [facility] [address] [facility] [id number] [place] [address] May, 2013 [facility] [place] [facility] [address] [facility] [id number] [facility] [place] [address] May, [facility] [place] [facility] [id number] [facility] [place] [address] Apr, [facility] [place] [facility] [id number] [place] [address] Apr, [facility] [place] [facility] [id number] [facility] [place] [address] Apr, [facility] [place] [facility] [id number] [place] [address] Apr, [facility] [place] [facility] [id number] [place] [address] Apr, [facility] [place] [facility] [id number] [place] [address] Apr, [facility] [place] [facility] [id number] [place] [address] Apr, [facility] [place] [facility] [id number] [place] [address] Apr, [facility] [place] [facility] [address] [id number] [place] [address] Apr, [facility] [place] [facility] [id number] [place] [address] Apr, [facility] [place] [facility] [id number] [place] [address] Apr, [facility] [place] [facility] [id number] [facility] [place] [address] Apr, [facility] [place] [facility] [address] [id number] [facility] [place] [address] Mar, [facility] [place] [facility] [address] [facility] [id number] [place] [address] Mar, [facility] [place] [facility] [id number] [place] [address] Mar, [facility] [place] [facility] [address] [facility] [id number] [place] [address] Mar, [facility] [place] [facility] [address] [facility] [id number] [facility] [place] [address] Mar, [facility] [place] [facility] [id number] [place] [address] Mar, [facility] [place] [facility] [id number] [place] [address] Mar, [facility] [place] [facility] [id number] [place] [address] Mar, [facility] [place] [facility] [address] [facility] [id number] [place] [address] Mar, [facility] [place] [facility] [id number] [place] [address] Mar, [facility] [place] [facility] [id number] [place] [address] Mar, [facility] [place] [facility] [id number] [place] [address] Feb, [facility] [place] [facility] [address] [facility] [id number] [place] [address] Feb, [facility] [place] [facility] [id number] [place] [address] Feb, [facility] [place] [facility] [id number] [place] [address] Feb, [facility] [place] [facility] [id number] [place] [address] Feb, [facility] [place] [facility] [id number] [place] [address] Feb, [facility] [place] [facility] [id number] [place] [address] Feb, [facility] [place] [facility] [id number] [place] [address] Feb, [facility] [place] [facility] [id number] [place] [address] Feb, [facility] [place] [facility] [address] [facility] [id number] [place] [address] Feb, [facility] [place] [facility] [id number] [place] [address] January, [facility] [place] [facility] [id number] [place] [address] January, [facility] [place] [facility] [id number] [place] [address] January, [facility] [place] [facility] [id number] [place] [address] January, [facility] [place] [facility] [id number] [place] [address] January, [facility] [place] [facility] [id number] [place] [address] January, [facility] [place] [facility] [id number] [place] [address] January, [facility] [place] [facility] [id number] [place] [address] January, [facility] [place] [facility] [id number] [place] [address] January, [facility] [place] [facility] [id number] [place] [address] January, [facility] [place] [facility] [id number] [place] [address] January, [facility] [place] [facility] [id number] [place] [address] January, [facility] [place] [facility] [address] [facility] [id number] [place] [address] January, [facility] [place] [facility] [id number] [place] [address] January, [facility] [place] [facility] [id number] [place] [address] January, [facility] [place] [facility] [id number] [place] [address] January, [facility] [place] [facility] [address] [facility] [id number] [place] [address] Dec, [facility] [place] [facility] [id number] [place] [address] Dec, [facility] [place] [facility] [id number] [place] [address] Dec, [facility] [place] [facility] [id number] [place] [address] Dec, [facility] [place] [facility] [id number] [place] [address] Dec, [facility] [place] [facility] [id number] [place] [address] Dec, [facility] [place] [facility] [id number] [place] [address] Dec, [facility] [place] [facility] [id number] [place] [address] Dec, [facility] [place] [facility] [id number] [place] [address] Dec, [facility] [place] [facility] [id number] [place] [address] Dec, [facility] [place] [facility] [id number] [place] [address] Nov, [facility] [place] [facility] [id number] [place] [address] Nov, [facility] [place] [facility] [id number] [place] [address] 07 Oct, 2013 [facility] [place] [facility] [address] [facility] [id number] [place] [address] Oct, [facility] [place] [facility] [id number] [place] [address] Oct, [facility] [place] [facility] [id number] [place] [address] Sep, [facility] [place] [facility] [id number] [place] [address] Sep, [facility] [place] [facility] [id number] [place] [address] Sep, [facility] [place] [facility] [id number] [place] [address] Sep, [facility] [place] [facility] [id number] [place] [address] Sep, [facility] [place] [facility] [id number] [place] [address] Sep, [facility] [place] [facility] [id number] [place] [address] Sep, [facility] [place] [facility] [id number] [place] [address] Sep, [facility] [place] [facility] [id number] [place] [address] Sep, [facility] [place] [facility] [id number] [place] [address] Sep, [facility] [place] [facility] [id number] [place] [address] Sep, [facility] [place] [facility] [id number] [place] [address] Sep, [facility] [place] [facility] [id number] [place] [address] Aug, [facility] [place] [facility] [id number] [place] [address] Aug, [facility] [place] [facility] [id number] [place] [address] Aug, 2012 [facility] [place] [facility] [id number] [place] [address] Aug, [facility] [place] [facility] [id number] [place] [address] Jul, [facility] [place] [facility] [id number] [place] [address] Jul, [facility] [place] [facility] [id number] [place] [address] Jun, [facility] [place] [facility] [id number] [place] [address] Jun, [facility] [place] [facility] [id number] [place] [address] Jun, [facility] [place] [facility] [id number] [place] [address] Jun, [facility] [place] [facility] [id number] [place] [address] Jun, [facility] [place] [facility] [id number] [place] [address] Jun, [facility] [place] [facility] [id number] [place] [address] Jun, [facility] [place] [facility] [id number] [place] [address] Jun, [facility] [place] [facility] [id number] [place] [address] 24 May, 2012 [facility] [place] [facility] [id number] [place] [address] 23 Sep, 2012 [facility] [place] [facility] [id number] [place] [address] 18 Sep, 2012 [facility] [place] [facility] [id number] [place] [address] 13 Sep, 2012 [facility] [place] [facility] [address] [id number] [facility] [place] [address] May, 2012 [facility] [place] [facility] [address] [id number] [facility] [place] [address] May, [facility] [place] [facility] [address] [facility] [id number] [facility] [place] [address] May, [facility] [place] [facility] [id number] [facility] [place] [address] Apr, [facility] [place] [facility] [address] [facility] [id number] [place] [address] Apr, [facility] [place] [facility] [address] [facility] [id number] [place] [address] Apr, [facility] [place] [facility] [address] [facility] [id number] [place] [address] Apr, [facility] [place] [facility] [id number] [facility] [place] [address] Apr, [facility] [place] [facility] [id number] [facility] [place] [address] Apr, [facility] [place] [facility] [address] [facility] [id number] [facility] [place] [address] Apr, [facility] [place] [facility] [id number] [facility] [place] [address] Mar, [facility] [place] [facility] [id number] [facility] [place] [address] Mar, [facility] [place] [facility] [id number] [facility] [place] [address] Mar, [facility] [place] [facility] [address] [facility] [id number] [facility] [place] [address] Mar, [facility] [place] [facility] [id number] [facility] [place] [address] Mar, [facility] [place] [facility] [address] [facility] [id number] [facility] [place] [address] Mar, [facility] [place] [facility] [id number] [facility] [place] [address] Mar, [facility] [place] [facility] [address] [id number] [place] [address] Mar, [facility] [place] [facility] [id number] [place] [address] Feb, [facility] [place] [facility] [id number] [place] [address] Feb, [facility] [place] [facility] [id number] [place] [address] Feb, [facility] [place] [facility] [id number] [place] [address] January, [facility] [place] [facility] [id number] [place] [address] January, [facility] [place] [facility] [id number] [place] [address] January, [facility] [place] [facility] [id number] [place] [address] January, [facility] [place] [facility] [id number] [place] [address] January, [facility] [place] [facility] [id number] [place] [address] January, [facility] [place] [facility] [id number] [place] [address] January, [facility] [place] [facility] [id number] [place] [address] January, [facility] [place] [facility] [id number] [place] [address] Dec, [facility] [place] [facility] [address] [id number] [place] [address] Dec, [facility] [place] [facility] [id number] [place] [address] Dec, [facility] [place] [facility] [id number] [place] [address] Dec, [facility] [place] [facility] [id number] [place] [address] Dec, [facility] [address] [facility] [id number] [place] [address] 22 Nov, 2012 [facility] [id number] [place] [address] 21 Nov, 2012 [facility] [id number] [place] [address] 19 Nov, 2012 [facility] [id number] [place] [address] 18 Nov, 2012 [facility] [address] [facility] [id number] [place] [address] 18 Nov, 2012 [facility] [id number] [place] [address] 14 Nov, 2012 [facility] [id number] [place] [address] Nov, [facility] [id number] [place] [address] Nov, [facility] [id number] [place] [address] Oct, [facility] [id number] [place] [address] 21 Oct, 2012 [facility] [id number] [place] [address] 12 Oct, 2012 [facility] [id number] [place] [address] 08 Oct, 2012 [facility] [id number] [place] [address] 07 Oct, 2012 [facility] [id number] [place] [address] 07 Oct, 2012 [facility] [id number] [place] [address] 05 Oct, 2012 [facility] [id number] [place] [address] 04 Oct, 2012 [facility] [id number] [place] [address] 04 Oct, 2012 [facility] [id number] [place] [address] Sep, [facility] [id number] [place] [address] Sep, [facility] [id number] [place] [address] Sep, [facility] [id number] [place] [address] Sep, [facility] [id number] [place] [address] Sep, [facility] [id number] [place] [address] Sep, [facility] [id number] [place] [address] Aug, [facility] [id number] [place] [address] Aug, [facility] [id number] [place] [address] Aug, [facility] [id number] [place] [address] Aug, [facility] [id number] [place] [address] Aug, [facility] [id number] [place] [address] Aug, [facility] [id number] [place] [address] Aug, [facility] [id number] [place] [address] Aug, [facility] [id number] [place] [address] Aug, [facility] [id number] [place] [address] Jul, [facility] [place] [id number] [place] [address] Jul, [facility] [place] [address] [address] Jul, [facility] [place] [address] [address] Jul, [facility] [place] [address] [address] Nov, [facility] [place] [address] [address] Sep, [facility] [place] [address] [address] Aug, [facility] [place] [address] [address] Aug, [facility] [place] [address] [address] Aug, [facility] [place] [address] [address] Jul, IMMUNIZATIONS No Known Immunizations SOCIAL HISTORY [...]
--- OUTSIDE RECORDS SUMMARY | 2020-01-01 11:07 | XMS REPORT ---
Author Author iMguel MCKEON Organization [facility] Address [address] [place] [address] Care Team Providers Care Academic Vice President Name Role Phone TESSA MCKEON Unavailable PROBLEMS Type Condition ICD9-CM Code EAT49-CR Code Onset Dates Condition S tatus SNOMED Code Problem Neuropathy G62.9 Active 842275104 Problem Essential hypertension I10 Active 90329669 Problem [facility] current use of insulin Z79.4 Active 997827336 Problem Abdominal pain R10.9 Active 91140 001 Problem Change in bowel habit R19.4 Active 89903605 Problem Coronary atherosclerosis due to lipid rich plaque I25.83 Active 11778195 Problem Type 2 diabetes mellitus with complication E11.8 Active 06067579 Problem Impotence N52.9 Active 608508174 Problem Family history of colon cancer Z80.0 Active 594274011 Problem Diabetic neuropathy, painful E11.40 A ctive 173278609 Problem Arm paresthesia, right R20.2 Active 08094612 Problem Gastroesophageal reflux disease without esophagitis K21.9 Active 122333920 Problem Drug abuse, opioid type F11.10 Active 9223571 Problem COPD exacerbation J44.1 Active 19 1132334 Problem Obstructive sleep apnea syndrome G47.33 Active 11393147 Problem Diverticulitis K57.92 Active 51299 6006 Problem Pain of right upper extremity M79.601 Active 363893501 Problem Respiratory bronchiolitis interstitial lung disease J84.115 Active 133587329 Problem Hypoxia R09.02 Active 039285344 Problem Interstitial lung disease J84.9 Acti ve [id number] ALLERGIES No Information ENCOUNTERS Encounter Location Date Diagnosis [facility] [address] [id number] [place] [address] Aug, [facility] [address] [id number] [place] [address] Aug, Diabetic neuropathy, painful E11.40 ; In terstitial lung disease J84.9 ; Chronic cough R05 ; Type 2 diabetes mellitus with complication E11.8 and [facility]FP current use of insulin Z79.4 [place] [address] [address] Jul, [facility] [address] [address] Jul, [facility] [address] [address] Jul, Diabetic neuropathy, painful E11.40 [place] [address] [address] Jul, Type 2 diabetes mellitus with complicati on E11.8 [place] [address] [address] Jun, Diabetic neuropathy, painful E11.40 [place] [address] [address] Jun, [facility] IN [facility] [address] [facility] [id number] [address] [place] [address] Jun, Type 2 diabetes mellitus wit h complication E11.8 ; Other viral agents as the cause of diseases classified elsewhere B97.89 ; Acute upper respiratory infection, unspecified J06.9 ; Acute recurrent maxillary sinusitis J01.01 ; Sore throat J02.9 and Headache R51 [address] [address] Jun, Right lower quadrant abdominal pain R10. 31 and Type 2 diabetes mellitus with complication E11.8 [place] [address] [address] May, Diabetic neuropathy, painful E11.[address] [address] May, COPD exacerbation J44.1 and Type 2 diabe chidi mellitus with complication E11.8 [place] [address] [address] Apr, Diabetic neuropathy, painful E11.40 [place] [address] [address] Apr, Diabetic neuropathy, painful E11.40 [facility] [place] [address] [address] [place] [id number] [place] [address] Mar, Bronchitis J40 [place] [address] [address] January, Type 2 diabetes mellitus with complicati on E11.8 ; Diabetic neuropathy, painful E11.40 ; Impotence N52.9 ; Coronary atherosclerosis due to lipid rich plaque I25.83 ; [facility]FP current use of insulin Z79.4 ; Interstitial lung disease J84.9 ; Hypoxia R09.02 ; Essential hypertension I10 ; Gastroesophageal reflux disease without esophagitis K21.9 ; Left upper arm pain M79.622 and Cervical spinal stenosis M48.02 [facility] [place] [address] [address] January, Viral gastroenteritis A08.[address] [address] Dec, Diabetic neuropathy, painful E11.40 [place] [address] [id number] Oct, [address] [address] Oct, Acute right-sided weakness M62.89 and Sl urring of speech R47.[address] [address] Sep, Type 2 diabetes mellitus with complicati on E11.8 ; Diabetic neuropathy, painful E11.40 ; Impotence N52.9 ; Coronary atherosclerosis due to lipid rich plaque I25.83 ; 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 [id number] [place] [address] Aug, Gastroenteritis and colitis, viral A08.4 [facility] [address] [address] Aug, [facility] [address] [address] Jun, Type 2 diabetes mellitus with complicati on E11.8 ; Diabetic neuropathy, painful E11.40 ; Impotence N52.9 ; Coronary atherosclerosis due to lipid rich plaque I25.83 ; [facility]FP current use of insulin Z79.4 ; Interstitial lung disease J84.9 ; Hypoxia R09.02 and Essential hypertension I10 [facility] [address] [address] 30 May, 2016 Bronchitis J40 [facility] [address] [address] 29 May, 2016 [facility] [address] [address] 20 May, 2016 Pain of right upper extremity M79.601 [facility] [address] [address] May, [facility] [address] [address] 15 May, 2016 [facility] [address] [address] 07 May, 2016 Right hand pain M79.641 [facility] [address] [address] Apr, [facility] [address] [address] Apr, [facility] [address] [address] Mar, [facility] [address] [address] Mar, Essential hypertension I10 [place] [address] [address] Feb, [place] [address] [address] Feb, Interstitial lung disease J84.9 and Bron chitis J40 [place] [address] [address] Feb, [place] [address] [address] Feb, Type 2 diabetes mellitus with complicati on E11.8 ; Impotence N52.9 ; Coronary atherosclerosis due to lipid rich plaque I25.83 ; [facility] current use of insulin Z79.4 and Diabetic neuropathy, painful E11.40 [place] [address] [address] January, [place] [address] [address] January, Arm paresthesia, right R20.2 and Pain of right upper extremity M79.601 [place] [address] [address] Dec, Lumbar strain S39.012A [place] [address] [address] Nov, Diabetic neuropathy, painful E11.40 ; Re spiratory bronchiolitis interstitial lung disease J84.115 ; Pain of right upper extremity M79.601 and Arm paresthesia, right R20.2 [place] [address] [address] Nov, Diabetic neuropathy, painful E11.40 [place] [address] [address] Sep, Type 2 diabetes mellitus with complicati on E11.8 ; Impotence N52.9 ; Coronary atherosclerosis due to lipid rich plaque I25.83 ; [facility] current use of insulin Z79.4 ; Diabetic neuropathy, painful E11.40 ; Chest pain R07.9 and Restless leg G25.81 [place] [address] [address] Sep, [place] [address] [address] Jul, COPD (chronic obstructive pulmonary dise ase) with acute bronchitis J44.0 [place] [address] [address] Jun, Abdominal pain R10.9 ; Family history of colon cancer Z80.0 and Diverticulitis K57.[address] [address] Jun, Abdominal pain R10.9 and Diverticulitis K57.[address] [address] Apr, Diabetes with other specified manifestat ions, type II or unspecified type, not stated as uncontrolled 250.80 ; Coronary atherosclerosis of unspecified type of vessel, prairie band or graft 414.00 ; Unspecified essential hypertension 401.9 ; Impotence of organic origin 607.84 ; Sleep apnea 780.57 and Interstitial lung disease 515 [place] [address] [address] Dec, [place] [address] [address] Dec, [place] [address] [address] Nov, [place] [address] [address] Nov, [place] [address] [address] Nov, [address] [address] Nov, [place] [address] [address] Nov, 2014 [facility] [place] [facility] [address] [facility] [id number] [facility] [place] [address] Nov, 2014 [facility] [place] [facility] [address] [facility] [id number] [facility] [place] [address] Nov, 2014 [facility] [place] [facility] [address] [facility] [id number] [place] [address] Nov, 2014 [facility] [place] [facility] [address] [id number] [facility] [place] [address] Nov, 2014 [facility] [place] [facility] [address] [facility] [id number] [facility] [place] [address] Nov, 2014 [facility] [place] [facility] [address] [id number] [place] [address] Oct, 2014 [facility] [place] [facility] [address] [id number] [place] [address] Oct, 2014 [facility] [place] [facility] [address] [id number] [facility] [place] [address] Oct, 2014 [facility] [place] [facility] [address] [id number] [place] [address] Oct, 2014 [facility] [place] [facility] [address] [id number] [place] [address] Oct, 2014 [facility] [place] [facility] [address] [id number] [place] [address] Oct, 2014 [facility] [place] [facility] [address] [id number] [place] [address] Oct, 2014 [facility] [place] [facility] [address] [id number] [place] [address] Oct, 2014 [facility] [place] [facility] [address] [id number] [place] [address] Oct, 2014 [facility] [place] [facility] [address] [id number] [place] [address] Oct, 2014 [facility] [place] [facility] [address] [id number] [place] [address] Oct, 2014 [facility] [place] [facility] [address] [id number] [place] [address] Jul, 2013 [facility] [place] [facility] [address] [id number] [place] [address] Jul, 2013 [facility] [place] [facility] [address] [id number] [place] [address] 29 Jun, 2013 [facility] [place] [facility] [address] [id number] [place] [address] 29 Jun, 2013 [facility] [place] [facility] [address] [id number] [place] [address] Jun, 2013 [facility] [place] [facility] [address] [id number] [place] [address] 17 Jun, 2013 [facility] [place] [facility] [address] [id number] [place] [address] 15 Jun, 2013 [facility] [place] [facility] [address] [id number] [place] [address] 15 Jun, 2013 [facility] [place] [facility] [address] [id number] [place] [address] 14 Jun, 2013 [facility] [place] [facility] [address] [id number] [place] [address] 14 Jun, 2013 [facility] [place] [facility] [address] [id number] [place] [address] 13 Jun, 2013 [facility] [place] [facility] [address] [id number] [place] [address] 13 Jun, 2013 [facility] [place] [facility] [address] [id number] [place] [address] 08 Jun, 2013 [facility] [place] [facility] [address] [id number] [place] [address] 08 Jun, 2013 [facility] [place] [facility] [address] [id number] [place] [address] 07 Jun, 2013 [facility] [place] [facility] [address] [id number] [place] [address] 07 Jun, 2013 [facility] [place] [facility] [address] [id number] [place] [address] 30 May, 2013 [facility] [place] [facility] [address] [id number] [facility] [place] [address] 30 May, 2013 [facility] [place] [facility] [address] [facility] [id number] [place] [address] May, 2013 [facility] [place] [facility] [address] [facility] [id number] [facility] [place] [address] May, 2013 [facility] [place] [facility] [address] [facility] [id number] [place] [address] May, 2013 [facility] [place] [facility] [address] [facility] [id number] [place] [address] May, 2013 [facility] [place] [facility] [address] [facility] [id number] [place] [address] Apr, [facility] [place] [facility] [address] [id number] [facility] [place] [address] Apr, [facility] [place] [facility] [address] [id number] [facility] [place] [address] Apr, [facility] [place] [facility] [address] [facility] [id number] [facility] [place] [address] Apr, [facility] [place] [facility] [address] [id number] [facility] [place] [address] Apr, [facility] [place] [facility] [address] [facility] [id number] [place] [address] Apr, [facility] [place] [facility] [address] [id number] [place] [address] Apr, [facility] [place] [facility] [address] [facility] [id number] [place] [address] Apr, [facility] [place] [facility] [address] [id number] [place] [address] Apr, [facility] [place] [facility] [address] [facility] [id number] [place] [address] Apr, [facility] [place] [facility] [address] [id number] [facility] [place] [address] Apr, [facility] [place] [facility] [address] [facility] [id number] [place] [address] Apr, [facility] [place] [facility] [address] [id number] [facility] [place] [address] Mar, [facility] [place] [facility] [address] [facility] [id number] [place] [address] Mar, [facility] [place] [facility] [address] [id number] [place] [address] Mar, [facility] [place] [facility] [address] [facility] [id number] [place] [address] Mar, [facility] [place] [facility] [address] [id number] [place] [address] Mar, [facility] [place] [facility] [address] [id number] [place] [address] Mar, [facility] [place] [facility] [address] [id number] [place] [address] Mar, [facility] [place] [facility] [address] [id number] [place] [address] Mar, [facility] [place] [facility] [address] [facility] [id number] [place] [address] Mar, [facility] [place] [facility] [address] [id number] [place] [address] Mar, [facility] [place] [facility] [address] [id number] [place] [address] Mar, [facility] [place] [facility] [address] [id number] [place] [address] Feb, [facility] [place] [facility] [address] [id number] [place] [address] Feb, [facility] [place] [facility] [address] [id number] [place] [address] Feb, [facility] [place] [facility] [address] [id number] [place] [address] Feb, [facility] [place] [facility] [address] [id number] [place] [address] Feb, [facility] [place] [facility] [address] [id number] [place] [address] Feb, [facility] [place] [facility] [address] [id number] [place] [address] Feb, [facility] [place] [facility] [address] [id number] [place] [address] Feb, [facility] [place] [facility] [address] [id number] [place] [address] Feb, [facility] [place] [facility] [address] [id number] [place] [address] Feb, [facility] [place] [facility] [address] [id number] [place] [address] January, [facility] [place] [facility] [address] [id number] [place] [address] January, [facility] [place] [facility] [address] [id number] [place] [address] January, [facility] [place] [facility] [address] [id number] [place] [address] January, [facility] [place] [facility] [address] [id number] [place] [address] January, [facility] [place] [facility] [address] [id number] [place] [address] January, [facility] [place] [facility] [address] [id number] [place] [address] January, [facility] [place] [facility] [address] [id number] [place] [address] January, [facility] [place] [facility] [address] [id number] [place] [address] January, [facility] [place] [facility] [address] [id number] [place] [address] January, [facility] [place] [facility] [address] [id number] [place] [address] January, [facility] [place] [facility] [address] [id number] [place] [address] January, [facility] [place] [facility] [address] [facility] [id number] [place] [address] January, [facility] [place] [facility] [address] [facility] [id number] [facility] [place] [address] January, [facility] [place] [facility] [address] [id number] [place] [address] January, [facility] [place] [facility] [address] [id number] [place] [address] January, [facility] [place] [facility] [address] [facility] [id number] [place] [address] Dec, [facility] [place] [facility] [address] [id number] [place] [address] Dec, [facility] [place] [facility] [address] [id number] [place] [address] Dec, [facility] [place] [facility] [address] [id number] [place] [address] Dec, [facility] [place] [facility] [address] [id number] [place] [address] Dec, [facility] [place] [facility] [address] [id number] [place] [address] Dec, [facility] [place] [facility] [address] [id number] [place] [address] Dec, [facility] [place] [facility] [address] [id number] [place] [address] Dec, [facility] [place] [facility] [address] [facility] [id number] [place] [address] Dec, [facility] [place] [facility] [address] [id number] [place] [address] Dec, [facility] [place] [facility] [address] [id number] [place] [address] Nov, [facility] [place] [facility] [address] [id number] [place] [address] Nov, [facility] [place] [facility] [address] [id number] [facility] [place] [address] 07 Oct, 2013 [facility] [place] [facility] [address] [id number] [place] [address] Oct, [facility] [place] [facility] [address] [id number] [place] [address] Oct, [facility] [place] [facility] [address] [id number] [place] [address] Sep, [facility] [place] [facility] [address] [id number] [place] [address] Sep, [facility] [place] [facility] [address] [id number] [place] [address] Sep, [facility] [place] [facility] [address] [id number] [place] [address] Sep, [facility] [place] [facility] [address] [id number] [place] [address] Sep, [facility] [place] [facility] [address] [id number] [place] [address] Sep, [facility] [address] [id number] [place] [address] Sep, [facility] [address] [id number] [place] [address] Sep, [facility] [address] [id number] [place] [address] Sep, [facility] [address] [id number] [place] [address] Sep, [facility] [address] [id number] [place] [address] Sep, [facility] [address] [id number] [place] [address] Sep, [facility] [address] [id number] [place] [address] Aug, [facility] [address] [id number] [place] [address] Aug, [facility] [address] [id number] [place] [address] Aug, 2012 [facility] [address] [id number] [place] [address] Aug, [facility] [address] [id number] [place] [address] Jul, [facility] [address] [id number] [place] [address] Jul, [facility] [address] [id number] [place] [address] Jun, [facility] [address] [id number] [place] [address] Jun, [facility] [address] [id number] [place] [address] Jun, [facility] [address] [id number] [place] [address] Jun, [facility] [address] [id number] [place] [address] Jun, [facility] [address] [id number] [place] [address] Jun, [facility] [address] [id number] [place] [address] Jun, [facility] [address] [id number] [place] [address] Jun, [facility] [address] [id number] [place] [address] 24 May, 2012 [facility] [address] [id number] [place] [address] 23 Sep, 2012 [facility] [address] [id number] [place] [address] 18 Sep, 2012 [facility] [address] [id number] [place] [address] 13 Sep, 2012 [facility] [address] [id number] [place] [address] May, [facility] [address] [id number] [facility] [place] [address] May, [facility] [address] [facility] [id number] [facility] [place] [address] May, [facility] [address] [id number] [place] [address] Apr, [facility] [address] [facility] [id number] [facility] [place] [address] Apr, [facility] [address] [facility] [id number] [facility] [place] [address] Apr, [facility] [address] [facility] [id number] [facility] [place] [address] Apr, [facility] [address] [id number] [place] [address] Apr, [facility] [address] [id number] [facility] [place] [address] Apr, [facility] [address] [id number] [place] [address] Apr, [facility] [address] [id number] [facility] [place] [address] Mar, [facility] [address] [id number] [place] [address] Mar, [facility] [address] [id number] [place] [address] Mar, [facility] [address] [facility] [id number] [facility] [place] [address] Mar, [facility] [address] [id number] [place] [address] Mar, [facility] [address] [facility] [id number] [place] [address] Mar, [facility] [address] [id number] [place] [address] Mar, [facility] [address] [id number] [place] [address] Mar, [facility] [address] [id number] [place] [address] Feb, [facility] [address] [id number] [place] [address] Feb, [facility] [address] [id number] [place] [address] Feb, [facility] [address] [id number] [place] [address] January, [facility] [address] [id number] [place] [address] January, [facility] [address] [id number] [place] [address] January, [facility] [address] [id number] [place] [address] January, [facility] [address] [id number] [place] [address] January, [facility] [address] [id number] [place] [address] January, [facility] [address] [id number] [place] [address] January, [facility] [address] [id number] [place] [address] January, [facility] [address] [id number] [place] [address] Dec, [facility] [address] [id number] [place] [address] Dec, [facility] [address] [id number] [place] [address] Dec, [facility] [address] [id number] [place] [address] Dec, [facility] [address] [id number] [place] [address] Dec, [facility] [address] [facility] [id number] [place] [address] 22 Nov, 2012 [facility] [address] [id number] [place] [address] Nov, [facility] [address] [id number] [place] [address] Nov, [facility] [address] [id number] [place] [address] 18 Nov, 2012 [facility] [address] [id number] [place] [address] 18 Nov, 2012 [facility] [address] [id number] [place] [address] 14 Nov, 2012 [facility] [address] [id number] [place] [address] Nov, [facility] [address] [id number] [place] [address] Nov, [facility] [address] [id number] [place] [address] Oct, [facility] [address] [id number] [place] [address] Oct, [facility] [address] [id number] [place] [address] 12 Oct, 2012 [facility] [address] [id number] [place] [address] 08 Oct, 2012 [facility] [address] [id number] [place] [address] 07 Oct, 2012 [facility] [address] [id number] [place] [address] 07 Oct, 2012 [facility] [address] [id number] [place] [address] 05 Oct, 2012 [facility] [address] [id number] [place] [address] 04 Oct, 2012 [facility] [address] [id number] [place] [address] Oct, [facility] [address] [id number] [place] [address] Sep, [facility] [address] [id number] [place] [address] Sep, [facility] [address] [id number] [place] [address] Sep, [facility] [address] [id number] [place] [address] Sep, [facility] [address] [id number] [place] [address] Sep, [facility] [address] [id number] [place] [address] Sep, [facility] [address] [id number] [place] [address] Aug, [facility] [address] [id number] [place] [address] Aug, [facility] [address] [id number] [place] [address] Aug, [facility] [address] [id number] [place] [address] Aug, [facility] [address] [id number] [place] [address] Aug, [facility] [address] [id number] [place] [address] Aug, [facility] [address] [id number] [place] [address] Aug, [facility] [address] [id number] [place] [address] Aug, [facility] [address] [id number] [place] [address] Aug, [facility] [address] [id number] [place] [address] Jul, [facility] [address] [id number] [place] [address] Jul, [facility] [address] [address] Jul, [facility] [id number] [place] [address] Jul, [facility] [address] [address] Nov, [facility] [address] [address] Sep, [facility] [address] [address] Aug, [facility] [address] [address] Aug, [facility] [address] [address] Aug, [facility] [address] [address] Jul, IMMUNIZATIONS No Known Immunizations SOCIAL HISTORY [...] 05/2005 Surgical History [facility] 06/2016 Surgical History Colonoscopy Kido (1 Polyp) repeat 5 year s 2019 2014 Surgical History right rotator cuff surgery 06/27/2016 Hospitalization History Overdosed on Clonazepam #35. Lori melendrez 03/2014 Hospitalization History Overdosed on Xanax 07/2012 Hospitalization History Hypostension-medication side effect-[facility] 03/13/16
--- OUTSIDE RECORDS SUMMARY | 2020-01-01 11:08 | XMS REPORT ---
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 Active 628152114 Problem Abdominal pain R10.9 Active 34810 001 Problem Change in bowel habit R19.4 Active 36620955 Problem Coronary atherosclerosis due to lipid rich plaque I25.83 Active 23528148 Problem Type 2 diabetes mellitus with complication E11.8 Active 55541012 Problem Impotence N52.9 Active 885949619 Problem Family history of colon cancer Z80.0 Active 945890204 Problem Diabetic neuropathy, painful E11.40 A ctive 690768440 Problem Arm paresthesia, right R20.2 Active 23286570 Problem Gastroesophageal reflux disease without esophagitis K21.9 Active 849585369 Problem Drug abuse, opioid type F11.10 Active 9810470 Problem COPD exacerbation J44.1 Active 19 1199989 Problem Obstructive sleep apnea syndrome G47.33 Active 83413259 Problem Diverticulitis K57.92 Active 51505 6006 Problem Pain of right upper extremity M79.601 Active 926084151 Problem Respiratory bronchiolitis interstitial lung disease J84.115 Active 073992223 Problem Hypoxia R09.02 Active 939112681 Problem Interstitial lung disease J84.9 Acti ve [id number] ALLERGIES No Information ENCOUNTERS Encounter Location Date Diagnosis [facility] [address] [id number] [place] [address] Aug, [facility] [address] [id number] [place] [address] Aug, Diabetic neuropathy, painful E11.40 ; In terstitial lung disease J84.9 ; Chronic cough R05 ; Type 2 diabetes mellitus with complication E11.8 and custodial current use of insulin Z79.4 [place] [address] [address] Jul, [facility] [address] [address] Jul, [place] [address] [address] Jul, Diabetic neuropathy, painful E11.40 [place] [address] [address] Jul, Type 2 diabetes mellitus with complicati on E11.8 [place] [address] [address] Jun, Diabetic neuropathy, painful E11.40 [place] [address] [address] Jun, [facility] [address] [facility] [id number] [address] [place] [address] Jun, Type 2 diabetes mellitus wit h complication E11.8 ; Other viral agents as the cause of diseases classified elsewhere B97.89 ; Acute upper respiratory infection, unspecified J06.9 ; Acute recurrent maxillary sinusitis J01.01 ; Sore throat J02.9 and Headache R51 [place] [address] [address] Jun, Right lower quadrant abdominal pain R10. 31 and Type 2 diabetes mellitus with complication E11.8 [place] [address] [address] May, Diabetic neuropathy, painful E11.[address] [address] May, COPD exacerbation J44.1 and Type 2 diabe chidi mellitus with complication E11.8 [place] [address] [address] Apr, Diabetic neuropathy, painful E11.40 [place] [address] [place] [id number] [place] [address] Apr, Diabetic neuropathy, painful E11.40 [facility] [place] [address] [address] [place] [id number] [address] [place] [address] Mar, Bronchitis J40 [place] [address] [address] January, Type 2 diabetes mellitus with complicati [...] M79.622 and Cervical spinal stenosis M48.02 [facility] [place] [id number] [address] [place] [address] January, Viral gastroenteritis A08.4 [place] [address] [address] Dec, Diabetic neuropathy, painful E11.40 [place] [id number] [place] [address] [id number] Oct, [address] [address] Oct, Acute right-sided weakness M62.89 and Sl urring of speech R47.81 [place] [address] [place] [id number] [place] [address] Sep, Type 2 diabetes mellitus with complicati on E11.8 ; Diabetic neuropathy, painful E11.40 ; Impotence N52.9 ; Coronary atherosclerosis due to lipid rich plaque I25.83 ; 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 care 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.4 ; Interstitial lung disease J84.9 ; Hypoxia R09.02 ; Essential hypertension I10 and Gastroesophageal reflux disease without esophagitis K21.9 [facility] [place] [address] [address] [place] [id number] [address] [address] 07 Sep, 2016 Bronchitis J40 [facility] [address] [facility] [id number] [place] [address] Aug, Gastroenteritis and colitis, viral A08.4 [facility] [address] [address] Aug, [facility] [address] [address] Jun, Type 2 diabetes mellitus with complicati on E11.8 ; Diabetic neuropathy, painful E11.40 ; Impotence N52.9 ; Coronary atherosclerosis due to lipid rich plaque I25.83 ; 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 care 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.4 ; Interstitial lung disease J84.9 ; Hypoxia R09.02 and Essential hypertension I10 [facility] [address] [address] 30 May, 2016 Bronchitis J40 [facility] [address] [address] 29 May, 2016 [facility] [address] [address] 20 May, 2016 Pain of right upper extremity M79.601 [facility] [address] [address] May, [facility] [address] [address] 15 May, 2016 [facility] [address] [address] 07 May, 2016 Right hand pain M79.641 [facility] [address] [address] Apr, [facility] [address] [address] Apr, [facility] [address] [address] Mar, [facility] [address] [address] Mar, Essential hypertension I10 [place] [address] [address] Feb, [place] [address] [address] Feb, Interstitial lung disease J84.9 and Bron chitis J40 [place] [address] [address] Feb, [place] [address] [address] Feb, Type 2 diabetes mellitus with complicati on E11.8 ; Impotence N52.9 ; Coronary atherosclerosis due to lipid rich plaque I25.83 ; 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 care 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.4 and Diabetic neuropathy, painful E11.40 [place] [address] [address] January, [place] [address] [address] January, Arm paresthesia, right R20.2 and Pain of right upper extremity M79.601 [place] [address] [address] Dec, Lumbar strain S39.012A [place] [address] [address] Nov, Diabetic neuropathy, painful E11.40 ; Re spiratory bronchiolitis interstitial lung disease J84.115 ; Pain of right upper extremity M79.601 and Arm paresthesia, right R20.2 [place] [address] [address] Nov, Diabetic neuropathy, painful E11.40 [place] [address] [address] Sep, Type 2 diabetes mellitus with complicati on E11.8 ; Impotence N52.9 ; Coronary atherosclerosis due to lipid rich plaque I25.83 ; long term care 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.4 ; Diabetic neuropathy, painful E11.40 ; Chest pain R07.9 and Restless leg G25.81 [place] [address] [address] Sep, [place] [address] [address] Jul, COPD (chronic obstructive pulmonary dise ase) with acute bronchitis J44.[address] [address] Jun, Abdominal pain R10.9 ; Family history of colon cancer Z80.0 and Diverticulitis K57.[address] [address] Jun, Abdominal pain R10.9 and Diverticulitis K57.[address] [address] Apr, Diabetes with other specified manifestat ions, type II or unspecified type, not stated as uncontrolled 250.80 ; Coronary atherosclerosis of unspecified type of vessel, [place] or graft 414.00 ; Unspecified essential hypertension 401.9 ; Impotence of organic origin 607.84 ; Sleep apnea 780.57 and Interstitial lung disease 515 [place] [address] [address] Dec, [address] [address] Dec, [place] [address] [address] Nov, [place] [address] [address] Nov, [place] [address] [address] Nov, [address] [address] Nov, [address] [address] Nov, 2014 [facility] [place] [facility] [address] [id number] [place] [address] Nov, [facility] [place] [facility] [address] [id number] [place] [address] Nov, 2014 [facility] [place] [facility] [address] [id number] [place] [address] Nov, 2014 [facility] [place] [facility] [address] [id number] [place] [address] Nov, 2014 [facility] [place] [facility] [address] [id number] [place] [address] Nov, 2014 [facility] [place] [facility] [address] [id number] [place] [address] Oct, 2014 [facility] [place] [facility] [address] [id number] [place] [address] Oct, 2014 [facility] [place] [facility] [address] [id number] [place] [address] Oct, 2014 [facility] [place] [facility] [address] [id number] [place] [address] Oct, 2014 [facility] [place] [facility] [address] [id number] [place] [address] Oct, 2014 [facility] [place] [facility] [address] [id number] [place] [address] Oct, 2014 [facility] [place] [facility] [address] [id number] [place] [address] Oct, 2014 [facility] [place] [facility] [address] [id number] [place] [address] Oct, 2014 [facility] [place] [facility] [address] [id number] [place] [address] Oct, 2014 [facility] [place] [facility] [address] [id number] [place] [address] Oct, 2014 [facility] [place] [facility] [address] [id number] [place] [address] Oct, [facility] [place] [facility] [address] [facility] [id number] [place] [address] Jul, 2013 [facility] [place] [facility] [address] [id number] [place] [address] Jul, 2013 [facility] [place] [facility] [address] [id number] [place] [address] Jun, 2013 [facility] [place] [facility] [address] [id number] [place] [address] Jun, 2013 [facility] [place] [facility] [address] [id number] [place] [address] Jun, 2013 [facility] [place] [facility] [address] [id number] [place] [address] Jun, 2013 [facility] [place] [facility] [address] [id number] [place] [address] 15 Jun, 2014 [facility] [place] [facility] [address] [id number] [place] [address] 15 Jun, 2013 [facility] [place] [facility] [address] [id number] [place] [address] 14 Jun, 2014 [facility] [place] [facility] [address] [id number] [place] [address] 14 Jun, 2014 [facility] [place] [facility] [address] [id number] [place] [address] Jun, 2013 [facility] [place] [facility] [address] [id number] [place] [address] Jun, [facility] [place] [facility] [address] [id number] [place] [address] 08 Jun, 2013 [facility] [place] [facility] [address] [id number] [place] [address] 08 Jun, 2014 [facility] [place] [facility] [address] [id number] [place] [address] Jun, 2013 [facility] [place] [facility] [address] [id number] [place] [address] Jun, 2013 [facility] [place] [facility] [address] [id number] [place] [address] May, 2013 [facility] [place] [facility] [address] [id number] [facility] [address] 30 May, 2014 [facility] [place] [facility] [address] [facility] [id number] [facility] [place] [address] May, 2013 [facility] [place] [facility] [address] [id number] [facility] [address] May, 2013 [facility] [place] [facility] [address] [facility] [id number] [place] [address] May, 2013 [facility] [place] [facility] [address] [facility] [id number] [facility] [place] [address] May, [facility] [place] [facility] [address] [id number] [facility] [address] Apr, [facility] [place] [facility] [address] [id number] [place] [address] Apr, [facility] [place] [facility] [address] [id number] [facility] [address] Apr, [facility] [place] [facility] [address] [id number] [place] [address] Apr, [facility] [place] [facility] [address] [id number] [place] [address] Apr, [facility] [place] [facility] [address] [id number] [place] [address] Apr, [facility] [place] [facility] [address] [id number] [place] [address] Apr, [facility] [place] [facility] [address] [id number] [place] [address] Apr, [facility] [place] [facility] [address] [id number] [place] [address] Apr, [facility] [place] [facility] [address] [id number] [place] [address] Apr, [facility] [place] [facility] [address] [id number] [place] [address] Apr, [facility] [place] [facility] [address] [id number] [facility] [place] [address] Apr, [facility] [place] [facility] [address] [id number] [facility] [place] [address] Mar, [facility] [place] [facility] [address] [facility] [id number] [place] [address] Mar, [facility] [place] [facility] [address] [id number] [place] [address] Mar, [facility] [place] [facility] [address] [facility] [id number] [place] [address] Mar, [facility] [place] [facility] [address] [facility] [id number] [facility] [place] [address] Mar, [facility] [place] [facility] [address] [id number] [place] [address] Mar, [facility] [place] [facility] [address] [id number] [place] [address] Mar, [facility] [place] [facility] [address] [id number] [place] [address] Mar, [facility] [place] [facility] [address] [facility] [id number] [place] [address] Mar, [facility] [place] [facility] [address] [id number] [place] [address] Mar, [facility] [place] [facility] [address] [id number] [place] [address] Mar, [facility] [place] [facility] [address] [id number] [place] [address] Feb, [facility] [place] [facility] [address] [facility] [id number] [place] [address] Feb, [facility] [place] [facility] [address] [id number] [place] [address] Feb, [facility] [place] [facility] [address] [id number] [place] [address] Feb, [facility] [place] [facility] [address] [id number] [place] [address] Feb, [facility] [place] [facility] [address] [id number] [place] [address] Feb, [facility] [place] [facility] [address] [id number] [place] [address] Feb, [facility] [place] [facility] [address] [id number] [place] [address] Feb, [facility] [place] [facility] [address] [id number] [place] [address] Feb, [facility] [place] [facility] [address] [facility] [id number] [place] [address] Feb, [facility] [place] [facility] [address] [id number] [place] [address] January, [facility] [place] [facility] [address] [id number] [place] [address] January, [facility] [place] [facility] [address] [id number] [place] [address] January, [facility] [place] [facility] [address] [id number] [place] [address] January, [facility] [place] [facility] [address] [id number] [place] [address] January, [facility] [place] [facility] [address] [id number] [place] [address] January, [facility] [place] [facility] [address] [id number] [place] [address] January, [facility] [place] [facility] [address] [id number] [place] [address] January, [facility] [place] [facility] [address] [id number] [place] [address] January, [facility] [place] [facility] [address] [id number] [place] [address] January, [facility] [place] [facility] [address] [id number] [place] [address] January, [facility] [place] [facility] [address] [id number] [place] [address] January, [facility] [place] [facility] [address] [facility] [id number] [place] [address] January, [facility] [place] [facility] [address] [id number] [place] [address] January, [facility] [place] [facility] [address] [id number] [place] [address] January, [facility] [place] [facility] [address] [id number] [place] [address] January, [facility] [place] [facility] [address] [facility] [id number] [place] [address] Dec, [facility] [place] [facility] [address] [id number] [place] [address] Dec, [facility] [place] [facility] [address] [id number] [place] [address] Dec, [facility] [place] [facility] [address] [id number] [place] [address] Dec, [facility] [place] [facility] [address] [id number] [place] [address] Dec, [facility] [place] [facility] [address] [id number] [place] [address] Dec, [facility] [place] [facility] [address] [id number] [place] [address] Dec, [facility] [place] [facility] [address] [id number] [place] [address] Dec, [facility] [place] [facility] [address] [id number] [place] [address] Dec, [facility] [place] [facility] [address] [id number] [place] [address] Dec, [facility] [place] [facility] [address] [id number] [place] [address] Nov, [facility] [place] [facility] [address] [id number] [place] [address] Nov, [facility] [place] [facility] [address] [id number] [place] [address] 07 Oct, 2013 [facility] [place] [facility] [address] [facility] [id number] [place] [address] Oct, [facility] [place] [facility] [address] [id number] [place] [address] Oct, [facility] [place] [facility] [address] [id number] [place] [address] Sep, [facility] [place] [facility] [address] [id number] [place] [address] Sep, [facility] [place] [facility] [address] [id number] [place] [address] Sep, [facility] [place] [facility] [address] [id number] [place] [address] Sep, [facility] [place] [facility] [address] [id number] [place] [address] Sep, [facility] [place] [facility] [address] [id number] [place] [address] Sep, [facility] [place] [facility] [address] [id number] [place] [address] Sep, [facility] [place] [facility] [address] [id number] [place] [address] Sep, [facility] [place] [facility] [address] [id number] [place] [address] Sep, [facility] [place] [facility] [address] [id number] [place] [address] Sep, [facility] [place] [facility] [address] [id number] [place] [address] Sep, [facility] [place] [facility] [address] [id number] [place] [address] Sep, [facility] [place] [facility] [address] [id number] [place] [address] Aug, [facility] [place] [facility] [address] [id number] [place] [address] Aug, [facility] [place] [facility] [address] [id number] [place] [address] Aug, 2012 [facility] [place] [facility] [address] [id number] [place] [address] Aug, [facility] [place] [facility] [address] [id number] [place] [address] Jul, [facility] [place] [facility] [address] [id number] [place] [address] Jul, [facility] [place] [facility] [address] [id number] [place] [address] Jun, [facility] [place] [facility] [address] [id number] [place] [address] Jun, [facility] [place] [facility] [address] [id number] [place] [address] Jun, [facility] [place] [facility] [address] [id number] [place] [address] Jun, [facility] [place] [facility] [address] [id number] [place] [address] Jun, [facility] [place] [facility] [address] [id number] [place] [address] Jun, [facility] [place] [facility] [address] [id number] [place] [address] Jun, [facility] [place] [facility] [address] [id number] [place] [address] Jun, [facility] [place] [facility] [address] [id number] [place] [address] 24 May, 2012 [facility] [place] [facility] [address] [id number] [place] [address] 23 Sep, 2012 [facility] [place] [facility] [address] [id number] [place] [address] 18 Sep, 2012 [facility] [place] [facility] [address] [id number] [place] [address] 13 Sep, 2012 [facility] [place] [facility] [address] [id number] [facility] [address] May, 2012 [facility] [place] [facility] [address] [id number] [facility] [address] May, [facility] [place] [facility] [address] [facility] [id number] [facility] [place] [address] May, [facility] [place] [facility] [address] [id number] [facility] [place] [address] Apr, [facility] [place] [facility] [address] [facility] [id number] [place] [address] Apr, [facility] [place] [facility] [address] [facility] [id number] [place] [address] Apr, [facility] [place] [facility] [address] [facility] [id number] [place] [address] Apr, [facility] [place] [facility] [address] [id number] [facility] [place] [address] Apr, [facility] [place] [facility] [address] [id number] [facility] [place] [address] Apr, [facility] [place] [facility] [address] [facility] [id number] [facility] [place] [address] Apr, [facility] [place] [facility] [address] [id number] [facility] [place] [address] Mar, [facility] [place] [facility] [address] [id number] [facility] [place] [address] Mar, [facility] [place] [facility] [address] [id number] [facility] [place] [address] Mar, [facility] [place] [facility] [address] [facility] [id number] [facility] [place] [address] Mar, [facility] [place] [facility] [address] [id number] [facility] [address] Mar, [facility] [address] [facility] [id number] [facility] [address] Mar, [facility] [address] [id number] [facility] [address] Mar, [facility] [address] [id number] [place] [address] Mar, [facility] [address] [id number] [place] [address] Feb, [facility] [address] [id number] [place] [address] Feb, [facility] [address] [id number] [place] [address] Feb, [facility] [address] [id number] [place] [address] January, [facility] [address] [id number] [place] [address] January, [facility] [address] [id number] [place] [address] January, [facility] [address] [id number] [place] [address] January, [facility] [address] [id number] [place] [address] January, [facility] [address] [id number] [place] [address] January, [facility] [address] [id number] [place] [address] January, [facility] [address] [id number] [place] [address] January, [facility] [address] [id number] [place] [address] Dec, [facility] [address] [id number] [place] [address] Dec, [facility] [address] [id number] [place] [address] Dec, [facility] [address] [id number] [place] [address] Dec, [facility] [address] [id number] [place] [address] Dec, [facility] [address] [facility] [id number] [place] [address] 22 Nov, 2012 [facility] [address] [id number] [place] [address] 21 Nov, 2012 [facility] [address] [id number] [place] [address] 19 Nov, 2012 [facility] [address] [id number] [place] [address] 18 Nov, 2012 [facility] [address] [facility] [id number] [place] [address] 18 Nov, 2012 [facility] [address] [id number] [place] [address] 14 Nov, 2012 [facility] [address] [id number] [place] [address] Nov, [facility] [address] [id number] [place] [address] Nov, [facility] [address] [id number] [place] [address] Oct, [facility] [address] [id number] [place] [address] 21 Oct, 2012 [facility] [address] [id number] [place] [address] 12 Oct, 2012 [facility] [address] [id number] [place] [address] 08 Oct, 2012 [facility] [address] [id number] [place] [address] 07 Oct, 2012 [facility] [address] [id number] [place] [address] 07 Oct, 2012 [facility] [address] [id number] [place] [address] 05 Oct, 2012 [facility] [address] [id number] [place] [address] 04 Oct, 2012 [facility] [address] [id number] [place] [address] 04 Oct, 2012 [facility] [address] [id number] [place] [address] Sep, [facility] [address] [id number] [place] [address] Sep, [facility] [address] [id number] [place] [address] Sep, [facility] [address] [id number] [place] [address] Sep, [facility] [address] [id number] [place] [address] Sep, [facility] [address] [id number] [place] [address] Sep, [facility] [address] [id number] [place] [address] Aug, [facility] [address] [id number] [place] [address] Aug, [facility] [address] [id number] [place] [address] Aug, [facility] [address] [id number] [place] [address] Aug, [facility] [address] [id number] [place] [address] Aug, [facility] [address] [id number] [place] [address] Aug, [facility] [address] [id number] [place] [address] Aug, [facility] [address] [id number] [place] [address] Aug, [facility] [address] [id number] [place] [address] Aug, [facility] [address] [id number] [place] [address] Jul, [facility] [id number] [place] [address] Jul, [facility] [address] [address] Jul, [facility] [address] [address] Jul, [facility] [address] [address] Nov, [facility] [address] [address] Sep, [facility] [address] [address] Aug, [facility] [address] [address] Aug, [facility] [address] [address] Aug, [facility] [address] [address] Jul, IMMUNIZATIONS No Known Immunizations SOCIAL HISTORY [...]
--- OUTSIDE RECORDS SUMMARY | 2020-01-01 11:08 | XMS REPORT ---
Author Author Miguel Freeman Doctor Organization [facility] Address Unknown Phone Unavailable Care Team Providers Care Transcribing Machine Mechanic Name Role Phone Migration, Doctor Unavailable Unavailable PROBLEMS Type Condition ICD9-CM Code IAG80-CA Code Onset Dates Condition S tatus SNOMED Code Problem Neuropathy G62.9 Active 954986286 Problem Essential hypertension I10 Active 57658510 Problem assisted current use of insulin Z79.4 Active 449807210 Problem Abdominal pain R10.9 Active 35417 001 Problem Change in bowel habit R19.4 Active 75165034 Problem Coronary atherosclerosis due to lipid rich plaque I25.83 Active 80792585 Problem Type 2 diabetes mellitus with complication E11.8 Active 82256818 Problem Impotence N52.9 Active 365658312 Problem Family history of colon cancer Z80.0 Active 891798853 Problem Diabetic neuropathy, painful E11.40 A ctive 498912627 Problem Arm paresthesia, right R20.2 Active 52187045 Problem Gastroesophageal reflux disease without esophagitis K21.9 Active 696136549 Problem Drug abuse, opioid type F11.10 Active 5103638 Problem COPD exacerbation J44.1 Active 19 4315983 Problem Obstructive sleep apnea syndrome G47.33 Active 78882582 Problem Diverticulitis K57.92 Active 32879 6006 Problem Pain of right upper extremity M79.601 Active 612090227 Problem Respiratory bronchiolitis interstitial lung disease J84.115 Active 246495965 Problem Hypoxia R09.02 Active 354876825 Problem Interstitial lung disease J84.9 Acti ve [id number] ALLERGIES No Information ENCOUNTERS Encounter Location Date Diagnosis [facility] [address] [id number] [place] [address] Aug, [facility] [address] [id number] [place] [address] Aug, Diabetic neuropathy, painful E11.40 ; In terstitial lung disease J84.9 ; Chronic cough R05 ; Type 2 diabetes mellitus with complication E11.8 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 [facility] [id number] [place] [address] Jul, [facility] [address] [address] Jul, [facility] [address] [address] Jul, Diabetic neuropathy, painful E11.40 [place] [address] [address] Jul, Type 2 diabetes mellitus with complicati on E11.8 [place] [address] [address] Jun, Diabetic neuropathy, painful E11.40 [place] [address] [address] Jun, [facility] [address] [facility] [id number] [place] [address] Jun, Type 2 diabetes mellitus wit h complication E11.8 ; Other viral agents as the cause of diseases classified elsewhere B97.89 ; Acute upper respiratory infection, unspecified J06.9 ; Acute recurrent maxillary sinusitis J01.01 ; Sore throat J02.9 and Headache R51 [place] [address] [address] Jun, Right lower quadrant abdominal pain R10. 31 and Type 2 diabetes mellitus with complication E11.8 [place] [address] [address] May, Diabetic neuropathy, painful E11.40 [place] [address] [address] May, COPD exacerbation J44.1 and Type 2 diabe chidi mellitus with complication E11.8 [place] [address] [address] Apr, Diabetic neuropathy, painful E11.40 [place] [address] [address] Apr, Diabetic neuropathy, painful E11.40 [facility] [address] [place] [id number] [address] [place] [address] Mar, Bronchitis J40 [place] [address] [address] January, Type 2 diabetes mellitus with complicati on E11.8 ; Diabetic neuropathy, painful E11.40 ; Impotence N52.9 ; Coronary atherosclerosis due to lipid rich plaque I25.83 ; 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 ; Interstitial lung disease J84.9 ; Hypoxia R09.02 ; Essential hypertension I10 ; Gastroesophageal reflux disease without esophagitis K21.9 ; Left upper arm pain M79.622 and Cervical spinal stenosis M48.02 [facility] [place] [id number] [place] [address] January, Viral gastroenteritis A08.[address] [address] Dec, Diabetic neuropathy, painful E11.40 [place] [address] [id number] Oct, [address] [address] Oct, Acute right-sided weakness M62.89 and Sl urring of speech R47.[address] [address] Sep, Type 2 diabetes mellitus with complicati on E11.8 ; Diabetic neuropathy, painful E11.40 ; Impotence N52.9 ; Coronary atherosclerosis due to lipid rich plaque I25.83 ; 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 ; Interstitial lung disease J84.9 ; Hypoxia R09.02 ; Essential hypertension I10 and Gastroesophageal reflux disease without esophagitis K21.9 [facility] [place] [id number] [address] [place] [address] Sep, Bronchitis J40 [facility] [address] [facility] [id number] [address] [place] [address] Aug, Gastroenteritis and colitis, viral A08.4 [facility] [address] [address] Aug, [facility] [address] [address] Jun, Type 2 diabetes mellitus with complicati on E11.8 ; Diabetic neuropathy, painful E11.40 ; Impotence N52.9 ; Coronary atherosclerosis due to lipid rich plaque I25.83 ; assisted current use of insulin Z79.4 ; Interstitial lung disease J84.9 ; Hypoxia R09.02 and Essential hypertension I10 [facility] [address] [address] 30 May, 2016 Bronchitis J40 [facility] [address] [address] May, [facility] [address] [address] May, Pain of right upper extremity M79.601 [place] [address] [address] May, [facility] [address] [address] May, [place] [address] [address] May, Right hand pain M79.641 [facility] [address] [address] Apr, [facility] [address] [address] Apr, [place] [address] [address] Mar, [facility] [address] [address] Mar, Essential hypertension I10 [place] [address] [address] Feb, [place] [address] [address] Feb, Interstitial lung disease J84.9 and Bron chitis J40 [place] [address] [address] Feb, [place] [address] [address] Feb, Type 2 diabetes mellitus with complicati on E11.8 ; Impotence N52.9 ; Coronary atherosclerosis due to lipid rich plaque I25.83 ; 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 and Diabetic neuropathy, painful E11.40 [place] [address] [address] January, [place] [address] [address] January, Arm paresthesia, right R20.2 and Pain of right upper extremity M79.601 [place] [address] [address] Dec, Lumbar strain S39.012A [place] [address] [address] Nov, Diabetic neuropathy, painful E11.40 ; Re spiratory bronchiolitis interstitial lung disease J84.115 ; Pain of right upper extremity M79.601 and Arm paresthesia, right R20.2 [place] [address] [address] Nov, Diabetic neuropathy, painful E11.40 [place] [address] [address] Sep, Type 2 diabetes mellitus with complicati on E11.8 ; Impotence N52.9 ; Coronary atherosclerosis due to lipid rich plaque I25.83 ; 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 ; Diabetic neuropathy, painful E11.40 ; Chest pain R07.9 and Restless leg G25.81 [facility] [address] [address] Sep, [facility] [address] [address] Jul, COPD (chronic obstructive pulmonary dise ase) with acute bronchitis J44.0 [place] [address] [address] Jun, Abdominal pain R10.9 ; Family history of colon cancer Z80.0 and Diverticulitis K57.92 [place] [address] [address] Jun, Abdominal pain R10.9 and Diverticulitis K57.92 [place] [address] [address] Apr, Diabetes with other specified manifestat ions, type II or unspecified type, not stated as uncontrolled 250.80 ; Coronary atherosclerosis of unspecified type of vessel, mentasta or graft 414.00 ; Unspecified essential hypertension 401.9 ; Impotence of organic origin 607.84 ; Sleep apnea 780.57 and Interstitial lung disease 515 [place] [address] [address] Dec, [place] [address] [address] Dec, [place] [address] [address] Nov, [facility] [address] [address] Nov, [facility] [address] [address] Nov, [facility] [address] [address] Nov, [facility] [address] [address] Nov, [facility] [address] [address] Nov, [facility] [place] [facility] [address] [id number] [place] [address] Nov, [facility] [place] [facility] [address] [id number] [place] [address] Nov, [facility] [place] [facility] [address] [id number] [place] [address] Nov, 2014 [facility] [place] [facility] [address] [id number] [place] [address] Nov, 2014 [facility] [place] [facility] [address] [id number] [place] [address] Oct, 2014 [facility] [place] [facility] [address] [id number] [place] [address] Oct, 2014 [facility] [place] [facility] [address] [id number] [place] [address] Oct, 2014 [facility] [place] [facility] [address] [id number] [place] [address] Oct, 2014 [facility] [place] [facility] [address] [id number] [place] [address] Oct, 2014 [facility] [place] [facility] [address] [id number] [place] [address] Oct, 2014 [facility] [place] [facility] [address] [id number] [place] [address] Oct, 2014 [facility] [place] [facility] [address] [id number] [place] [address] Oct, 2014 [facility] [place] [facility] [address] [id number] [place] [address] Oct, 2014 [facility] [place] [facility] [address] [id number] [place] [address] Oct, 2014 [facility] [place] [facility] [address] [id number] [place] [address] Oct, 2014 [facility] [place] [facility] [address] [id number] [place] [address] Jul, [facility] [place] [facility] [address] [id number] [place] [address] Jul, 2013 [facility] [place] [facility] [address] [id number] [place] [address] Jun, 2013 [facility] [place] [facility] [address] [id number] [place] [address] 29 Jun, 2013 [facility] [place] [facility] [address] [id number] [place] [address] Jun, 2013 [facility] [place] [facility] [address] [id number] [place] [address] 17 Jun, 2013 [facility] [place] [facility] [address] [id number] [place] [address] 15 Jun, 2014 [facility] [place] [facility] [address] [id number] [place] [address] 15 Jun, 2013 [facility] [place] [facility] [address] [id number] [place] [address] 14 Jun, 2013 [facility] [place] [facility] [address] [id number] [place] [address] 14 Jun, 2013 [facility] [place] [facility] [address] [id number] [place] [address] 13 Jun, 2014 [facility] [place] [facility] [address] [id number] [place] [address] 13 Jun, 2013 [facility] [place] [facility] [address] [id number] [place] [address] 08 Jun, 2013 [facility] [place] [facility] [address] [id number] [place] [address] 08 Jun, 2013 [facility] [place] [facility] [address] [id number] [place] [address] 07 Jun, 2013 [facility] [place] [facility] [address] [id number] [place] [address] 07 Jun, 2013 [facility] [place] [facility] [address] [id number] [place] [address] 30 May, 2013 [facility] [place] [facility] [address] [id number] [place] [address] 30 May, 2013 [facility] [place] [facility] [address] [id number] [place] [address] May, [facility] [place] [facility] [address] [facility] [id number] [place] [address] May, [facility] [place] [facility] [address] [id number] [place] [address] May, [facility] [place] [facility] [address] [facility] [id number] [place] [address] May, [facility] [place] [facility] [address] [facility] [id number] [place] [address] Apr, [facility] [place] [facility] [address] [facility] [id number] [place] [address] Apr, [facility] [place] [facility] [address] [id number] [place] [address] Apr, [facility] [place] [facility] [address] [id number] [place] [address] Apr, [facility] [place] [facility] [address] [id number] [place] [address] Apr, [facility] [place] [facility] [address] [id number] [place] [address] Apr, [facility] [place] [facility] [address] [id number] [place] [address] Apr, [facility] [place] [facility] [address] [id number] [place] [address] Apr, [facility] [place] [facility] [address] [id number] [place] [address] Apr, [facility] [place] [facility] [address] [id number] [place] [address] Apr, [facility] [place] [facility] [address] [id number] [place] [address] Apr, [facility] [place] [facility] [address] [id number] [place] [address] Apr, [facility] [place] [facility] [address] [id number] [place] [address] Mar, [facility] [place] [facility] [address] [id number] [place] [address] Mar, [facility] [place] [facility] [address] [facility] [id number] [place] [address] Mar, [facility] [place] [facility] [address] [facility] [id number] [place] [address] Mar, [facility] [place] [facility] [address] [facility] [id number] [place] [address] Mar, [facility] [place] [facility] [address] [facility] [id number] [place] [address] Mar, [facility] [place] [facility] [address] [id number] [place] [address] Mar, [facility] [place] [facility] [address] [id number] [place] [address] Mar, [facility] [place] [facility] [address] [id number] [place] [address] Mar, [facility] [place] [facility] [address] [facility] [id number] [place] [address] Mar, [facility] [place] [facility] [address] [id number] [place] [address] Mar, [facility] [place] [facility] [address] [id number] [place] [address] Feb, [facility] [place] [facility] [address] [facility] [id number] [place] [address] Feb, [facility] [place] [facility] [address] [facility] [id number] [place] [address] Feb, [facility] [place] [facility] [address] [id number] [place] [address] Feb, [facility] [place] [facility] [address] [id number] [place] [address] Feb, [facility] [place] [facility] [address] [id number] [place] [address] Feb, [facility] [place] [facility] [address] [id number] [place] [address] Feb, [facility] [place] [facility] [address] [id number] [place] [address] Feb, [facility] [place] [facility] [address] [id number] [place] [address] Feb, [facility] [place] [facility] [address] [id number] [place] [address] Feb, [facility] [place] [facility] [address] [facility] [id number] [place] [address] January, [facility] [place] [facility] [address] [id number] [place] [address] January, [facility] [place] [facility] [address] [id number] [place] [address] January, [facility] [place] [facility] [address] [id number] [place] [address] January, [facility] [place] [facility] [address] [id number] [place] [address] January, [facility] [place] [facility] [address] [id number] [place] [address] January, [facility] [place] [facility] [address] [id number] [place] [address] January, [facility] [place] [facility] [address] [id number] [place] [address] January, [facility] [place] [facility] [address] [id number] [place] [address] January, [facility] [place] [facility] [address] [id number] [place] [address] January, [facility] [place] [facility] [address] [id number] [place] [address] January, [facility] [place] [facility] [address] [id number] [place] [address] January, [facility] [place] [facility] [address] [id number] [place] [address] January, [facility] [place] [facility] [address] [id number] [place] [address] January, [facility] [place] [facility] [address] [id number] [place] [address] January, [facility] [place] [facility] [address] [id number] [place] [address] January, [facility] [place] [facility] [address] [id number] [place] [address] Dec, [facility] [place] [facility] [address] [id number] [place] [address] Dec, [facility] [place] [facility] [address] [id number] [place] [address] Dec, [facility] [place] [facility] [address] [id number] [place] [address] Dec, [facility] [place] [facility] [address] [id number] [place] [address] Dec, [facility] [place] [facility] [address] [id number] [place] [address] Dec, [facility] [place] [facility] [address] [id number] [place] [address] Dec, [facility] [place] [facility] [address] [id number] [place] [address] Dec, [facility] [place] [facility] [address] [id number] [place] [address] Dec, [facility] [place] [facility] [address] [id number] [place] [address] Dec, [facility] [place] [facility] [address] [id number] [place] [address] Nov, [facility] [place] [facility] [address] [id number] [place] [address] Nov, [facility] [place] [facility] [address] [id number] [place] [address] Oct, [facility] [place] [facility] [address] [id number] [place] [address] 07 Oct, 2013 [facility] [place] [facility] [address] [id number] [place] [address] Oct, [facility] [place] [facility] [address] [id number] [place] [address] Sep, [facility] [place] [facility] [address] [id number] [place] [address] Sep, [facility] [place] [facility] [address] [id number] [place] [address] Sep, [facility] [place] [facility] [address] [id number] [place] [address] Sep, [facility] [place] [facility] [address] [id number] [place] [address] Sep, [facility] [place] [facility] [address] [id number] [place] [address] Sep, [facility] [place] [facility] [address] [id number] [place] [address] Sep, [facility] [place] [facility] [address] [id number] [place] [address] Sep, [facility] [place] [facility] [address] [id number] [place] [address] Sep, [facility] [place] [facility] [address] [id number] [place] [address] Sep, [facility] [place] [facility] [address] [id number] [place] [address] Sep, [facility] [place] [facility] [address] [id number] [place] [address] Sep, [facility] [place] [facility] [address] [id number] [place] [address] Aug, [facility] [place] [facility] [address] [id number] [place] [address] Aug, [facility] [place] [facility] [address] [id number] [place] [address] Aug, [facility] [place] [facility] [address] [id number] [place] [address] Aug, 2012 [facility] [place] [facility] [address] [id number] [place] [address] Jul, [facility] [place] [facility] [address] [id number] [place] [address] Jul, [facility] [place] [facility] [address] [id number] [place] [address] Jun, [facility] [place] [facility] [address] [id number] [place] [address] Jun, [facility] [place] [facility] [address] [id number] [place] [address] Jun, [facility] [place] [facility] [address] [id number] [place] [address] Jun, [facility] [place] [facility] [address] [id number] [place] [address] Jun, [facility] [place] [facility] [address] [id number] [place] [address] Jun, [facility] [place] [facility] [address] [id number] [place] [address] Jun, [facility] [place] [facility] [address] [id number] [place] [address] Jun, [facility] [place] [facility] [address] [id number] [place] [address] 24 May, 2012 [facility] [place] [facility] [address] [id number] [place] [address] 23 Sep, 2012 [facility] [place] [facility] [address] [id number] [place] [address] 18 Sep, 2012 [facility] [place] [facility] [address] [id number] [place] [address] 13 Sep, 2012 [facility] [place] [facility] [address] [id number] [place] [address] 11 Sep, 2012 [facility] [place] [facility] [address] [id number] [place] [address] May, [facility] [place] [facility] [address] [id number] [place] [address] May, [facility] [place] [facility] [address] [facility] [id number] [place] [address] Apr, [facility] [place] [facility] [address] [id number] [facility] [address] Apr, [facility] [place] [facility] [address] [facility] [id number] [place] [address] Apr, [facility] [place] [facility] [address] [id number] [place] [address] Apr, [facility] [place] [facility] [address] [id number] [place] [address] Apr, [facility] [place] [facility] [address] [id number] [facility] [address] Apr, [facility] [place] [facility] [address] [id number] [facility] [address] Apr, [facility] [place] [facility] [address] [facility] [id number] [place] [address] Mar, [facility] [place] [facility] [address] [id number] [place] [address] Mar, [facility] [place] [facility] [address] [id number] [place] [address] Mar, [facility] [place] [facility] [address] [id number] [facility] [address] Mar, [facility] [place] [facility] [address] [facility] [id number] [place] [address] Mar, [facility] [place] [facility] [address] [id number] [place] [address] Mar, [facility] [place] [facility] [address] [facility] [id number] [place] [address] Mar, [facility] [place] [facility] [address] [id number] [place] [address] Mar, [facility] [place] [facility] [address] [id number] [place] [address] 18 Feb, 2013 [facility] [place] [facility] [address] [id number] [place] [address] Feb, [facility] [place] [facility] [address] [id number] [place] [address] Feb, [facility] [place] [facility] [address] [id number] [place] [address] January, [facility] [place] [facility] [address] [id number] [place] [address] January, [facility] [place] [facility] [address] [id number] [place] [address] January, [facility] [place] [facility] [address] [id number] [place] [address] January, [facility] [place] [facility] [address] [address] [id number] [place] [address] January, [facility] [address] [id number] [place] [address] January, [facility] [address] [id number] [place] [address] January, [facility] [address] [id number] [place] [address] January, [facility] [address] [id number] [place] [address] Dec, [facility] [address] [id number] [place] [address] Dec, [facility] [address] [id number] [place] [address] Dec, [facility] [address] [id number] [place] [address] Dec, [facility] [address] [id number] [place] [address] Dec, [facility] [address] [id number] [place] [address] Nov, [facility] [address] [id number] [place] [address] 21 Nov, 2012 [facility] [address] [id number] [facility] [address] 19 Nov, 2012 [facility] [address] [id number] [place] [address] 18 Nov, 2012 [facility] [address] [id number] [place] [address] 18 Nov, 2012 [facility] [address] [facility] [id number] [place] [address] 14 Nov, 2012 [facility] [address] [id number] [place] [address] 11 Nov, 2012 [facility] [address] [id number] [place] [address] Nov, [facility] [address] [id number] [place] [address] Oct, [facility] [address] [id number] [place] [address] Oct, [facility] [address] [id number] [place] [address] 12 Oct, 2012 [facility] [address] [id number] [place] [address] 08 Oct, 2012 [facility] [address] [id number] [place] [address] 07 Oct, 2012 [facility] [address] [id number] [place] [address] 07 Oct, 2012 [facility] [address] [id number] [place] [address] 05 Oct, 2012 [facility] [address] [id number] [place] [address] 04 Oct, 2012 [facility] [address] [id number] [place] [address] 04 Oct, 2012 [facility] [address] [id number] [place] [address] Sep, [facility] [address] [id number] [place] [address] Sep, [facility] [address] [id number] [place] [address] Sep, [facility] [address] [id number] [place] [address] Sep, [facility] [address] [id number] [place] [address] Sep, [facility] [address] [id number] [place] [address] Sep, [facility] [address] [id number] [place] [address] Aug, [facility] [address] [id number] [place] [address] Aug, [facility] [address] [id number] [place] [address] Aug, [facility] [address] [id number] [place] [address] Aug, [facility] [address] [id number] [place] [address] Aug, [facility] [address] [id number] [place] [address] Aug, [facility] [address] [id number] [place] [address] Aug, [facility] [address] [id number] [place] [address] Aug, [facility] [address] [id number] [place] [address] Aug, [facility] [address] [id number] [place] [address] Jul, [facility] [address] [id number] [place] [address] Jul, [facility] [id number] [place] [address] Jul, [facility] [address] [address] Jul, [facility] [address] [address] Nov, [facility] [address] [address] Sep, [facility] [address] [address] Aug, [facility] [address] [address] Aug, [facility] [address] [address] Aug, [facility] [address] [address] Jul, IMMUNIZATIONS No Known Immunizations SOCIAL HISTORY [...]
--- OUTSIDE RECORDS SUMMARY | 2020-01-01 11:08 | XMS REPORT ---
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 Active 878059406 Problem Abdominal pain R10.9 Active 62311 001 Problem Change in bowel habit R19.4 Active 34847999 Problem Coronary atherosclerosis due to lipid rich plaque I25.83 Active 51873546 Problem Type 2 diabetes mellitus with complication E11.8 Active 94695795 Problem Impotence N52.9 Active 043646027 Problem Family history of colon cancer Z80.0 Active 808521646 Problem Diabetic neuropathy, painful E11.40 A ctive 242361492 Problem Arm paresthesia, right R20.2 Active 58346365 Problem Gastroesophageal reflux disease without esophagitis K21.9 Active 512911287 Problem Drug abuse, opioid type F11.10 Active 3625132 Problem COPD exacerbation J44.1 Active 19 5213342 Problem Obstructive sleep apnea syndrome G47.33 Active 36654723 Problem Diverticulitis K57.92 Active 25534 6006 Problem Pain of right upper extremity M79.601 Active 650107556 Problem Respiratory bronchiolitis interstitial lung disease J84.115 Active 532404409 Problem Hypoxia R09.02 Active 615735330 Problem Interstitial lung disease J84.9 Acti ve [id number] ALLERGIES No Information ENCOUNTERS Encounter Location Date Diagnosis [facility] [address] [id number] [place] [address] Aug, [facility] [address] [id number] [place] [address] Aug, Diabetic neuropathy, painful E11.40 ; In terstitial lung disease J84.9 ; Chronic cough R05 ; Type 2 diabetes mellitus with complication E11.8 and nursing home current use of insulin Z79.4 [place] [address] [address] Jul, [facility] [address] [address] Jul, [place] [address] [address] Jul, Diabetic neuropathy, painful E11.40 [place] [address] [address] Jul, Type 2 diabetes mellitus with complicati on E11.8 [place] [address] [address] Jun, Diabetic neuropathy, painful E11.40 [place] [address] [address] Jun, [facility] [address] [facility] [id number] [address] [place] [address] Jun, Type 2 diabetes mellitus wit h complication E11.8 ; Other viral agents as the cause of diseases classified elsewhere B97.89 ; Acute upper respiratory infection, unspecified J06.9 ; Acute recurrent maxillary sinusitis J01.01 ; Sore throat J02.9 and Headache R51 [place] [address] [address] Jun, Right lower quadrant abdominal pain R10. 31 and Type 2 diabetes mellitus with complication E11.8 [place] [address] [address] May, Diabetic neuropathy, painful E11.[address] [address] May, COPD exacerbation J44.1 and Type 2 diabe chidi mellitus with complication E11.8 [place] [address] [address] Apr, Diabetic neuropathy, painful E11.40 [place] [address] [address] [place] [id number] [place] [address] Apr, Diabetic neuropathy, painful E11.40 [facility] [place] [address] [address] [place] [id number] [address] [place] [address] Mar, Bronchitis J40 [place] [address] [address] January, Type 2 diabetes mellitus with complicati [...] pain M79.622 and Cervical spinal stenosis M48.02 [facility] [place] [id number] [address] [place] [address] January, Viral gastroenteritis A08.4 [place] [address] [address] Dec, Diabetic neuropathy, painful E11.40 [place] [address] [id number] [place] [id number] Oct, [address] [address] Oct, Acute right-sided weakness M62.89 and Sl urring of speech R47.81 [place] [address] [address] [place] [id number] [place] [address] Sep, Type 2 diabetes mellitus with complicati on E11.8 ; Diabetic neuropathy, painful E11.40 ; Impotence N52.9 ; Coronary atherosclerosis due to lipid rich plaque I25.83 ; 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 ; Interstitial lung disease J84.9 ; Hypoxia R09.02 ; Essential hypertension I10 and Gastroesophageal reflux disease without esophagitis K21.9 [facility] [place] [address] [address] [place] [id number] [address] [address] 07 Sep, 2016 Bronchitis J40 [facility] [address] [facility] [id number] [place] [address] Aug, Gastroenteritis and colitis, viral A08.4 [facility] [address] [address] Aug, [facility] [address] [address] Jun, Type 2 diabetes mellitus with complicati on E11.8 ; Diabetic neuropathy, painful E11.40 ; Impotence N52.9 ; Coronary atherosclerosis due to lipid rich plaque I25.83 ; 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641 [facility] [address] [address] Apr, [facility] [address] [address] Apr, [facility] [address] [address] Mar, [facility] [address] [address] Mar, Essential hypertension I10 [place] [address] [address] Feb, [place] [address] [address] Feb, Interstitial lung disease J84.9 and Bron chitis J40 [place] [address] [address] Feb, [place] [address] [address] Feb, Type 2 diabetes mellitus with complicati on E11.8 ; Impotence N52.9 ; Coronary atherosclerosis due to lipid rich plaque I25.83 ; 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 and Diabetic neuropathy, painful E11.40 [place] [address] [address] January, [place] [address] [address] January, Arm paresthesia, right R20.2 and Pain of right upper extremity M79.601 [place] [address] [address] Dec, Lumbar strain S39.012A [place] [address] [address] Nov, Diabetic neuropathy, painful E11.40 ; Re spiratory bronchiolitis interstitial lung disease J84.115 ; Pain of right upper extremity M79.601 and Arm paresthesia, right R20.2 [place] [address] [address] Nov, Diabetic neuropathy, painful E11.40 [place] [address] [address] Sep, Type 2 diabetes mellitus with complicati on E11.8 ; Impotence N52.9 ; Coronary atherosclerosis due to lipid rich plaque I25.83 ; 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 ; Diabetic neuropathy, painful E11.40 ; Chest pain R07.9 and Restless leg G25.81 [place] [address] [address] Sep, [place] [address] [address] Jul, COPD (chronic obstructive pulmonary dise ase) with acute bronchitis J44.[address] [address] Jun, Abdominal pain R10.9 ; Family history of colon cancer Z80.0 and Diverticulitis K57.[address] [address] Jun, Abdominal pain R10.9 and Diverticulitis K57.[address] [address] Apr, Diabetes with other specified manifestat ions, type II or unspecified type, not stated as uncontrolled 250.80 ; Coronary atherosclerosis of unspecified type of vessel, [place] or graft 414.00 ; Unspecified essential hypertension 401.9 ; Impotence of organic origin 607.84 ; Sleep apnea 780.57 and Interstitial lung disease 515 [place] [address] [address] Dec, [address] [address] Dec, [place] [address] [address] Nov, [place] [address] [address] Nov, [place] [address] [address] Nov, [address] [address] Nov, [address] [address] Nov, 2014 [facility] [place] [facility] [address] [id number] [place] [address] Nov, [facility] [place] [facility] [address] [id number] [place] [address] Nov, 2014 [facility] [place] [facility] [address] [id number] [place] [address] Nov, 2014 [facility] [place] [facility] [address] [id number] [place] [address] Nov, 2014 [facility] [place] [facility] [address] [id number] [place] [address] Nov, 2014 [facility] [place] [facility] [address] [id number] [place] [address] Oct, 2014 [facility] [place] [facility] [address] [id number] [place] [address] Oct, 2014 [facility] [place] [facility] [address] [id number] [place] [address] Oct, 2014 [facility] [place] [facility] [address] [id number] [place] [address] Oct, 2014 [facility] [place] [facility] [address] [id number] [place] [address] Oct, 2014 [facility] [place] [facility] [address] [id number] [place] [address] Oct, 2014 [facility] [place] [facility] [address] [id number] [place] [address] Oct, 2014 [facility] [place] [facility] [address] [id number] [place] [address] Oct, 2014 [facility] [place] [facility] [address] [id number] [place] [address] Oct, 2014 [facility] [place] [facility] [address] [id number] [place] [address] Oct, 2014 [facility] [place] [facility] [address] [id number] [place] [address] Oct, [facility] [place] [facility] [address] [facility] [id number] [place] [address] Jul, 2013 [facility] [place] [facility] [address] [id number] [place] [address] Jul, 2013 [facility] [place] [facility] [address] [id number] [place] [address] Jun, 2013 [facility] [place] [facility] [address] [id number] [place] [address] Jun, 2013 [facility] [place] [facility] [address] [id number] [place] [address] Jun, 2013 [facility] [place] [facility] [address] [id number] [place] [address] Jun, 2013 [facility] [place] [facility] [address] [id number] [place] [address] 15 Jun, 2014 [facility] [place] [facility] [address] [id number] [place] [address] 15 Jun, 2013 [facility] [place] [facility] [address] [id number] [place] [address] 14 Jun, 2014 [facility] [place] [facility] [address] [id number] [place] [address] 14 Jun, 2014 [facility] [place] [facility] [address] [id number] [place] [address] Jun, 2013 [facility] [place] [facility] [address] [id number] [place] [address] Jun, [facility] [place] [facility] [address] [id number] [place] [address] 08 Jun, 2013 [facility] [place] [facility] [address] [id number] [place] [address] 08 Jun, 2014 [facility] [place] [facility] [address] [id number] [place] [address] Jun, 2013 [facility] [place] [facility] [address] [id number] [place] [address] Jun, 2013 [facility] [place] [facility] [address] [id number] [place] [address] May, 2013 [facility] [place] [facility] [address] [id number] [facility] [place] [address] 30 May, 2014 [facility] [place] [facility] [address] [facility] [id number] [facility] [place] [address] May, 2013 [facility] [place] [facility] [address] [id number] [facility] [place] [address] May, 2013 [facility] [place] [facility] [address] [facility] [id number] [place] [address] May, 2013 [facility] [place] [facility] [address] [facility] [id number] [facility] [place] [address] May, [facility] [place] [facility] [address] [id number] [facility] [place] [address] Apr, [facility] [place] [facility] [address] [id number] [place] [address] Apr, [facility] [place] [facility] [address] [id number] [facility] [place] [address] Apr, [facility] [place] [facility] [address] [id number] [place] [address] Apr, [facility] [place] [facility] [address] [id number] [place] [address] Apr, [facility] [place] [facility] [address] [id number] [place] [address] Apr, [facility] [place] [facility] [address] [id number] [place] [address] Apr, [facility] [place] [facility] [address] [id number] [place] [address] Apr, [facility] [place] [facility] [address] [id number] [place] [address] Apr, [facility] [place] [facility] [address] [id number] [place] [address] Apr, [facility] [place] [facility] [address] [id number] [place] [address] Apr, [facility] [place] [facility] [address] [id number] [facility] [place] [address] Apr, [facility] [place] [facility] [address] [id number] [facility] [place] [address] Mar, [facility] [place] [facility] [address] [facility] [id number] [place] [address] Mar, [facility] [place] [facility] [address] [id number] [place] [address] Mar, [facility] [place] [facility] [address] [facility] [id number] [place] [address] Mar, [facility] [place] [facility] [address] [facility] [id number] [facility] [place] [address] Mar, [facility] [place] [facility] [address] [id number] [place] [address] Mar, [facility] [place] [facility] [address] [id number] [place] [address] Mar, [facility] [place] [facility] [address] [id number] [place] [address] Mar, [facility] [place] [facility] [address] [facility] [id number] [place] [address] Mar, [facility] [place] [facility] [address] [id number] [place] [address] Mar, [facility] [place] [facility] [address] [id number] [place] [address] Mar, [facility] [place] [facility] [address] [id number] [place] [address] Feb, [facility] [place] [facility] [address] [facility] [id number] [place] [address] Feb, [facility] [place] [facility] [address] [id number] [place] [address] Feb, [facility] [place] [facility] [address] [id number] [place] [address] Feb, [facility] [place] [facility] [address] [id number] [place] [address] Feb, [facility] [place] [facility] [address] [id number] [place] [address] Feb, [facility] [place] [facility] [address] [id number] [place] [address] Feb, [facility] [place] [facility] [address] [id number] [place] [address] Feb, [facility] [place] [facility] [address] [id number] [place] [address] Feb, [facility] [place] [facility] [address] [facility] [id number] [place] [address] Feb, [facility] [place] [facility] [address] [id number] [place] [address] January, [facility] [place] [facility] [address] [id number] [place] [address] January, [facility] [place] [facility] [address] [id number] [place] [address] January, [facility] [place] [facility] [address] [id number] [place] [address] January, [facility] [place] [facility] [address] [id number] [place] [address] January, [facility] [place] [facility] [address] [id number] [place] [address] January, [facility] [place] [facility] [address] [id number] [place] [address] January, [facility] [place] [facility] [address] [id number] [place] [address] January, [facility] [place] [facility] [address] [id number] [place] [address] January, [facility] [place] [facility] [address] [id number] [place] [address] January, [facility] [place] [facility] [address] [id number] [place] [address] January, [facility] [place] [facility] [address] [id number] [place] [address] January, [facility] [place] [facility] [address] [facility] [id number] [place] [address] January, [facility] [place] [facility] [address] [id number] [place] [address] January, [facility] [place] [facility] [address] [id number] [place] [address] January, [facility] [place] [facility] [address] [id number] [place] [address] January, [facility] [place] [facility] [address] [facility] [id number] [place] [address] Dec, [facility] [place] [facility] [address] [id number] [place] [address] Dec, [facility] [place] [facility] [address] [id number] [place] [address] Dec, [facility] [place] [facility] [address] [id number] [place] [address] Dec, [facility] [place] [facility] [address] [id number] [place] [address] Dec, [facility] [place] [facility] [address] [id number] [place] [address] Dec, [facility] [place] [facility] [address] [id number] [place] [address] Dec, [facility] [place] [facility] [address] [id number] [place] [address] Dec, [facility] [place] [facility] [address] [id number] [place] [address] Dec, [facility] [place] [facility] [address] [id number] [place] [address] Dec, [facility] [place] [facility] [address] [id number] [place] [address] Nov, [facility] [place] [facility] [address] [id number] [place] [address] Nov, [facility] [place] [facility] [address] [id number] [place] [address] 07 Oct, 2013 [facility] [place] [facility] [address] [facility] [id number] [place] [address] Oct, [facility] [place] [facility] [address] [id number] [place] [address] Oct, [facility] [place] [facility] [address] [id number] [place] [address] Sep, [facility] [place] [facility] [address] [id number] [place] [address] Sep, [facility] [place] [facility] [address] [id number] [place] [address] Sep, [facility] [place] [facility] [address] [id number] [place] [address] Sep, [facility] [place] [facility] [address] [id number] [place] [address] Sep, [facility] [place] [facility] [address] [id number] [place] [address] Sep, [facility] [place] [facility] [address] [id number] [place] [address] Sep, [facility] [place] [facility] [address] [id number] [place] [address] Sep, [facility] [place] [facility] [address] [id number] [place] [address] Sep, [facility] [place] [facility] [address] [id number] [place] [address] Sep, [facility] [place] [facility] [address] [id number] [place] [address] Sep, [facility] [place] [facility] [address] [id number] [place] [address] Sep, [facility] [place] [facility] [address] [id number] [place] [address] Aug, [facility] [place] [facility] [address] [id number] [place] [address] Aug, [facility] [place] [facility] [address] [id number] [place] [address] Aug, 2012 [facility] [place] [facility] [address] [id number] [place] [address] Aug, [facility] [place] [facility] [address] [id number] [place] [address] Jul, [facility] [place] [facility] [address] [id number] [place] [address] Jul, [facility] [place] [facility] [address] [id number] [place] [address] Jun, [facility] [place] [facility] [address] [id number] [place] [address] Jun, [facility] [place] [facility] [address] [id number] [place] [address] Jun, [facility] [place] [facility] [address] [id number] [place] [address] Jun, [facility] [place] [facility] [address] [id number] [place] [address] Jun, [facility] [place] [facility] [address] [id number] [place] [address] Jun, [facility] [place] [facility] [address] [id number] [place] [address] Jun, [facility] [place] [facility] [address] [id number] [place] [address] Jun, [facility] [place] [facility] [address] [id number] [place] [address] 24 May, 2012 [facility] [place] [facility] [address] [id number] [place] [address] 23 Sep, 2012 [facility] [place] [facility] [address] [id number] [place] [address] 18 Sep, 2012 [facility] [place] [facility] [address] [id number] [place] [address] 13 Sep, 2012 [facility] [place] [facility] [address] [id number] [facility] [place] [address] May, 2012 [facility] [place] [facility] [address] [id number] [facility] [place] [address] May, [facility] [place] [facility] [address] [facility] [id number] [facility] [place] [address] May, [facility] [place] [facility] [address] [id number] [facility] [place] [address] Apr, [facility] [place] [facility] [address] [facility] [id number] [place] [address] Apr, [facility] [place] [facility] [address] [facility] [id number] [place] [address] Apr, [facility] [place] [facility] [address] [facility] [id number] [place] [address] Apr, [facility] [place] [facility] [address] [id number] [facility] [place] [address] Apr, [facility] [place] [facility] [address] [id number] [facility] [place] [address] Apr, [facility] [place] [facility] [address] [facility] [id number] [facility] [place] [address] Apr, [facility] [place] [facility] [address] [id number] [facility] [place] [address] Mar, [facility] [place] [facility] [address] [id number] [facility] [place] [address] Mar, [facility] [place] [facility] [address] [id number] [facility] [place] [address] Mar, [facility] [place] [facility] [address] [facility] [id number] [facility] [place] [address] Mar, [facility] [place] [facility] [address] [id number] [facility] [place] [address] Mar, [facility] [place] [facility] [address] [facility] [id number] [facility] [place] [address] Mar, [facility] [place] [facility] [address] [id number] [facility] [place] [address] Mar, [facility] [place] [facility] [address] [id number] [place] [address] Mar, [facility] [place] [facility] [address] [id number] [place] [address] Feb, [facility] [place] [facility] [address] [id number] [place] [address] Feb, [facility] [address] [id number] [place] [address] Feb, [facility] [address] [id number] [place] [address] January, [facility] [address] [id number] [place] [address] January, [facility] [address] [id number] [place] [address] January, [facility] [address] [id number] [place] [address] January, [facility] [address] [id number] [place] [address] January, [facility] [address] [id number] [place] [address] January, [facility] [address] [id number] [place] [address] January, [facility] [address] [id number] [place] [address] January, [facility] [address] [id number] [place] [address] Dec, [facility] [id number] [place] [address] Dec, [facility] [address] [id number] [place] [address] Dec, [facility] [address] [id number] [place] [address] Dec, [facility] [address] [id number] [place] [address] Dec, [facility] [address] [facility] [id number] [place] [address] 22 Nov, 2012 [facility] [address] [id number] [place] [address] 21 Nov, 2012 [facility] [address] [id number] [place] [address] 19 Nov, 2012 [facility] [address] [id number] [place] [address] 18 Nov, 2012 [facility] [address] [facility] [id number] [place] [address] 18 Nov, 2012 [facility] [address] [id number] [place] [address] 14 Nov, 2012 [facility] [address] [id number] [place] [address] Nov, [facility] [address] [id number] [place] [address] Nov, [facility] [address] [id number] [place] [address] Oct, [facility] [address] [id number] [place] [address] 21 Oct, 2012 [facility] [address] [id number] [place] [address] 12 Oct, 2012 [facility] [address] [id number] [place] [address] 08 Oct, 2012 [facility] [address] [id number] [place] [address] 07 Oct, 2012 [facility] [address] [id number] [place] [address] 07 Oct, 2012 [facility] [address] [id number] [place] [address] 05 Oct, 2012 [facility] [address] [id number] [place] [address] 04 Oct, 2012 [facility] [address] [id number] [place] [address] 04 Oct, 2012 [facility] [address] [id number] [place] [address] Sep, [facility] [address] [id number] [place] [address] Sep, [facility] [address] [id number] [place] [address] Sep, [facility] [address] [id number] [place] [address] Sep, [facility] [address] [id number] [place] [address] Sep, [facility] [address] [id number] [place] [address] Sep, [facility] [address] [id number] [place] [address] Aug, [facility] [address] [id number] [place] [address] Aug, [facility] [address] [id number] [place] [address] Aug, [facility] [address] [id number] [place] [address] Aug, [facility] [address] [id number] [place] [address] Aug, [facility] [address] [id number] [place] [address] Aug, [facility] [address] [id number] [place] [address] Aug, [facility] [address] [id number] [place] [address] Aug, [facility] [address] [id number] [place] [address] Aug, [facility] [address] [id number] [place] [address] Jul, [facility] [id number] [place] [address] Jul, [facility] [address] [address] Jul, [facility] [id number] [place] [address] Jul, [facility] [address] [address] Nov, [facility] [address] [address] Sep, [facility] [address] [address] Aug, [facility] [address] [address] Aug, [facility] [address] [address] Aug, [facility] [id number] [place] [address] Jul, IMMUNIZATIONS No Known Immunizations SOCIAL HISTORY Never Assessed REASON FOR VISIT PLAN OF CARE VITAL SIGNS Height 74 in 2013-12-17 Weight 165.9 lbs 2013-12-17 Temperature 97.1 degrees Fahrenheit 2013-12-17 Heart Rate 88 bpm 2013-12-17 Respiratory Rate 18 2013-12-17 Blood pressure systolic 150 mmHg 2013-12-17 Blood pressure diastolic 82 mmHg 2013-12-17 MEDICATIONS Unknown Medications RESULTS No Results PROCEDURES Procedure Date Ordered Result Body Site ASSAY OF BLOOD/URIC ACID December 17, 2013 COMPREHEN METABOLIC PANEL December 17, 2013 VENIPUNCT, ROUTINE* December 17, 2013 INSTRUCTIONS MEDICATIONS ADMINISTERED No Known Medications [...] 07/2012 Hospitalization History Hypostension-medication side effect-[facility] 03/13/16
--- OUTSIDE RECORDS SUMMARY | 2020-01-01 11:09 | XMS REPORT ---
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 Active 919703473 Problem Abdominal pain R10.9 Active 53681 001 Problem Change in bowel habit R19.4 Active 85673662 Problem Coronary atherosclerosis due to lipid rich plaque I25.83 Active 29354302 Problem Type 2 diabetes mellitus with complication E11.8 Active 71565132 Problem Impotence N52.9 Active 672168445 Problem Family history of colon cancer Z80.0 Active 664759390 Problem Diabetic neuropathy, painful E11.40 A ctive 719670663 Problem Arm paresthesia, right R20.2 Active 73261870 Problem Gastroesophageal reflux disease without esophagitis K21.9 Active 069951974 Problem Drug abuse, opioid type F11.10 Active 7818749 Problem COPD exacerbation J44.1 Active 19 3869953 Problem Obstructive sleep apnea syndrome G47.33 Active 40473798 Problem Diverticulitis K57.92 Active 77439 6006 Problem Pain of right upper extremity M79.601 Active 640658343 Problem Respiratory bronchiolitis interstitial lung disease J84.115 Active 912001546 Problem Hypoxia R09.02 Active 027395707 Problem Interstitial lung disease J84.9 Acti ve [id number] ALLERGIES No Information ENCOUNTERS Encounter Location Date Diagnosis [facility] [address] [id number] [place] [address] Aug, [facility] [address] [id number] [place] [address] Aug, Diabetic neuropathy, painful E11.40 ; In terstitial lung disease J84.9 ; Chronic cough R05 ; Type 2 diabetes mellitus with complication E11.8 and halfway current use of insulin Z79.4 [place] [address] [address] Jul, [facility] [address] [address] Jul, [place] [address] [address] Jul, Diabetic neuropathy, painful E11.40 [place] [address] [address] Jul, Type 2 diabetes mellitus with complicati on E11.8 [place] [address] [address] Jun, Diabetic neuropathy, painful E11.40 [place] [address] [address] Jun, [facility] [address] [facility] [id number] [place] [address] Jun, Type 2 diabetes mellitus wit h complication E11.8 ; Other viral agents as the cause of diseases classified elsewhere B97.89 ; Acute upper respiratory infection, unspecified J06.9 ; Acute recurrent maxillary sinusitis J01.01 ; Sore throat J02.9 and Headache R51 [place] [address] [address] Jun, Right lower quadrant abdominal pain R10. 31 and Type 2 diabetes mellitus with complication E11.8 [place] [address] [address] May, Diabetic neuropathy, painful E11.[address] [address] May, COPD exacerbation J44.1 and Type 2 diabe chidi mellitus with complication E11.8 [place] [address] [address] Apr, Diabetic neuropathy, painful E11.40 [place] [address] [place] [id number] [place] [address] Apr, Diabetic neuropathy, painful E11.40 [facility] [place] [address] [place] [id number] [place] [address] Mar, Bronchitis J40 [place] [address] [address] January, Type 2 diabetes mellitus with complicati [...] M79.622 and Cervical spinal stenosis M48.02 [facility] [place] [id number] [place] [address] January, Viral gastroenteritis A08.4 [place] [address] [address] Dec, Diabetic neuropathy, painful E11.40 [place] [id number] [place] [address] [id number] Oct, [address] [address] Oct, Acute right-sided weakness M62.89 [address] urring of speech R47.81 [place] [address] [place] [id number] [place] [address] Sep, Type 2 diabetes mellitus with complicati on E11.8 ; Diabetic neuropathy, painful E11.40 ; Impotence N52.9 ; Coronary atherosclerosis due to lipid rich plaque I25.83 ; joint terminal attack controller current use of insulin Z79.4 ; Interstitial lung disease J84.9 ; Hypoxia R09.02 ; Essential hypertension I10 and Gastroesophageal reflux disease without esophagitis K21.9 [facility] [place] [address] [place] [id number] [address] [address] 07 Sep, 2016 Bronchitis J40 [facility] [address] [facility] [address] [id number] [place] [address] Aug, Gastroenteritis and colitis, viral A08.4 [facility] [address] [address] Aug, [facility] [address] [address] Jun, Type 2 diabetes mellitus with complicati on E11.8 ; Diabetic neuropathy, painful E11.40 ; Impotence N52.9 ; Coronary atherosclerosis due to lipid rich plaque I25.83 ; joint terminal attack controller current use of insulin Z79.4 ; Interstitial lung disease J84.9 ; Hypoxia R09.02 and Essential hypertension I10 [facility] [address] [address] 30 May, 2016 Bronchitis J40 [facility] [address] [address] 29 May, 2016 [facility] [address] [address] 20 May, 2016 Pain of right upper extremity M79.601 [facility] [address] [address] May, [facility] [address] [address] 15 May, 2016 [facility] [address] [address] 07 May, 2016 Right hand pain M79.641 [facility] [address] [address] Apr, [facility] [address] [address] Apr, [facility] [address] [address] Mar, [facility] [address] [address] Mar, Essential hypertension I10 [place] [address] [address] Feb, [place] [address] [address] Feb, Interstitial lung disease J84.9 and Bron chitis J40 [place] [address] [address] Feb, [place] [address] [address] Feb, Type 2 diabetes mellitus with complicati on E11.8 ; Impotence N52.9 ; Coronary atherosclerosis due to lipid rich plaque I25.83 ; joint terminal attack controller current use of insulin Z79.4 and Diabetic neuropathy, painful E11.40 [place] [address] [address] January, [place] [address] [address] January, Arm paresthesia, right R20.2 and Pain of right upper extremity M79.601 [place] [address] [address] Dec, Lumbar strain S39.012A [place] [address] [address] Nov, Diabetic neuropathy, painful E11.40 ; Re spiratory bronchiolitis interstitial lung disease J84.115 ; Pain of right upper extremity M79.601 and Arm paresthesia, right R20.2 [place] [address] [address] Nov, Diabetic neuropathy, painful E11.40 [place] [address] [address] Sep, Type 2 diabetes mellitus with complicati on E11.8 ; Impotence N52.9 ; Coronary atherosclerosis due to lipid rich plaque I25.83 ; joint terminal attack controller current use of insulin Z79.4 ; Diabetic neuropathy, painful E11.40 ; Chest pain R07.9 and Restless leg G25.81 [place] [address] [address] Sep, [place] [address] [address] Jul, COPD (chronic obstructive pulmonary dise ase) with acute bronchitis J44.[address] [address] Jun, Abdominal pain R10.9 ; Family history of colon cancer Z80.0 and Diverticulitis K57.[address] [address] Jun, Abdominal pain R10.9 and Diverticulitis K57.[address] [address] Apr, Diabetes with other specified manifestat ions, type II or unspecified type, not stated as uncontrolled 250.80 ; Coronary atherosclerosis of unspecified type of vessel, dry creek or graft 414.00 ; Unspecified essential hypertension 401.9 ; Impotence of organic origin 607.84 ; Sleep apnea 780.57 and Interstitial lung disease 515 [place] [address] [address] Dec, [address] [address] Dec, [place] [address] [address] Nov, [place] [address] [address] Nov, [place] [address] [address] Nov, [address] [address] Nov, [address] [address] Nov, 2014 [facility] [place] [facility] [address] [id number] [place] [address] Nov, [facility] [place] [facility] [address] [id number] [place] [address] Nov, 2014 [facility] [place] [facility] [address] [id number] [place] [address] Nov, 2014 [facility] [place] [facility] [address] [id number] [place] [address] Nov, 2014 [facility] [place] [facility] [address] [id number] [place] [address] Nov, 2014 [facility] [place] [facility] [address] [id number] [place] [address] Oct, 2014 [facility] [place] [facility] [address] [id number] [place] [address] Oct, 2014 [facility] [place] [facility] [address] [id number] [place] [address] Oct, 2014 [facility] [place] [facility] [address] [id number] [place] [address] Oct, 2014 [facility] [place] [facility] [address] [id number] [place] [address] Oct, 2014 [facility] [place] [facility] [address] [id number] [place] [address] Oct, 2014 [facility] [place] [facility] [address] [id number] [place] [address] Oct, 2014 [facility] [place] [facility] [address] [id number] [place] [address] Oct, 2014 [facility] [place] [facility] [address] [id number] [place] [address] Oct, 2014 [facility] [place] [facility] [address] [id number] [place] [address] Oct, 2014 [facility] [place] [facility] [address] [id number] [place] [address] Oct, [facility] [place] [facility] [address] [facility] [address] [id number] [place] [address] Jul, 2013 [facility] [place] [facility] [address] [id number] [place] [address] Jul, 2013 [facility] [place] [facility] [address] [id number] [place] [address] Jun, 2013 [facility] [place] [facility] [address] [id number] [place] [address] Jun, 2013 [facility] [place] [facility] [address] [id number] [place] [address] Jun, 2013 [facility] [place] [facility] [address] [id number] [place] [address] Jun, 2013 [facility] [place] [facility] [address] [id number] [place] [address] 15 Jun, 2014 [facility] [place] [facility] [address] [id number] [place] [address] 15 Jun, 2013 [facility] [place] [facility] [address] [id number] [place] [address] 14 Jun, 2014 [facility] [place] [facility] [address] [id number] [place] [address] 14 Jun, 2014 [facility] [place] [facility] [address] [id number] [place] [address] Jun, 2013 [facility] [place] [facility] [address] [id number] [place] [address] Jun, [facility] [place] [facility] [address] [id number] [place] [address] 08 Jun, 2013 [facility] [place] [facility] [address] [id number] [place] [address] 08 Jun, 2014 [facility] [place] [facility] [address] [id number] [place] [address] Jun, 2013 [facility] [place] [facility] [address] [id number] [place] [address] Jun, 2013 [facility] [place] [facility] [address] [id number] [place] [address] May, 2013 [facility] [place] [facility] [address] [id number] [place] [address] 30 May, 2014 [facility] [place] [facility] [address] [facility] [address] [id number] [place] [address] May, 2013 [facility] [place] [facility] [address] [id number] [place] [address] May, 2013 [facility] [place] [facility] [address] [facility] [address] [id number] [place] [address] May, 2013 [facility] [place] [facility] [address] [facility] [address] [id number] [place] [address] May, [facility] [place] [facility] [address] [id number] [place] [address] Apr, [facility] [place] [facility] [address] [id number] [place] [address] Apr, [facility] [place] [facility] [address] [id number] [place] [address] Apr, [facility] [place] [facility] [address] [id number] [place] [address] Apr, [facility] [place] [facility] [address] [id number] [place] [address] Apr, [facility] [place] [facility] [address] [id number] [place] [address] Apr, [facility] [place] [facility] [address] [id number] [place] [address] Apr, [facility] [place] [facility] [address] [id number] [place] [address] Apr, [facility] [place] [facility] [address] [id number] [place] [address] Apr, [facility] [place] [facility] [address] [id number] [place] [address] Apr, [facility] [place] [facility] [address] [id number] [place] [address] Apr, [facility] [place] [facility] [address] [id number] [place] [address] Apr, [facility] [place] [facility] [address] [id number] [place] [address] Mar, [facility] [place] [facility] [address] [facility] [address] [id number] [place] [address] Mar, [facility] [place] [facility] [address] [id number] [place] [address] Mar, [facility] [place] [facility] [address] [facility] [address] [id number] [place] [address] Mar, [facility] [place] [facility] [address] [facility] [address] [id number] [place] [address] Mar, [facility] [place] [facility] [address] [id number] [place] [address] Mar, [facility] [place] [facility] [address] [id number] [place] [address] Mar, [facility] [place] [facility] [address] [id number] [place] [address] Mar, [facility] [place] [facility] [address] [facility] [address] [id number] [place] [address] Mar, [facility] [place] [facility] [address] [id number] [place] [address] Mar, [facility] [place] [facility] [address] [id number] [place] [address] Mar, [facility] [place] [facility] [address] [id number] [place] [address] Feb, [facility] [place] [facility] [address] [facility] [address] [id number] [place] [address] Feb, [facility] [place] [facility] [address] [id number] [place] [address] Feb, [facility] [place] [facility] [address] [id number] [place] [address] Feb, [facility] [place] [facility] [address] [id number] [place] [address] Feb, [facility] [place] [facility] [address] [id number] [place] [address] Feb, [facility] [place] [facility] [address] [id number] [place] [address] Feb, [facility] [place] [facility] [address] [id number] [place] [address] Feb, [facility] [place] [facility] [address] [id number] [place] [address] Feb, [facility] [place] [facility] [address] [facility] [address] [id number] [place] [address] Feb, [facility] [place] [facility] [address] [id number] [place] [address] January, [facility] [place] [facility] [address] [id number] [place] [address] January, [facility] [place] [facility] [address] [id number] [place] [address] January, [facility] [place] [facility] [address] [id number] [place] [address] January, [facility] [place] [facility] [address] [id number] [place] [address] January, [facility] [place] [facility] [address] [id number] [place] [address] January, [facility] [place] [facility] [address] [id number] [place] [address] January, [facility] [place] [facility] [address] [id number] [place] [address] January, [facility] [place] [facility] [address] [id number] [place] [address] January, [facility] [place] [facility] [address] [id number] [place] [address] January, [facility] [place] [facility] [address] [id number] [place] [address] January, [facility] [place] [facility] [address] [id number] [place] [address] January, [facility] [place] [facility] [address] [facility] [address] [id number] [place] [address] January, [facility] [place] [facility] [address] [id number] [place] [address] January, [facility] [place] [facility] [address] [id number] [place] [address] January, [facility] [place] [facility] [address] [id number] [place] [address] January, [facility] [place] [facility] [address] [facility] [address] [id number] [place] [address] Dec, [facility] [place] [facility] [address] [id number] [place] [address] Dec, [facility] [place] [facility] [address] [id number] [place] [address] Dec, [facility] [place] [facility] [address] [id number] [place] [address] Dec, [facility] [place] [facility] [address] [id number] [place] [address] Dec, [facility] [place] [facility] [address] [id number] [place] [address] Dec, [facility] [place] [facility] [address] [id number] [place] [address] Dec, [facility] [place] [facility] [address] [id number] [place] [address] Dec, [facility] [place] [facility] [address] [id number] [place] [address] Dec, [facility] [place] [facility] [address] [id number] [place] [address] Dec, [facility] [place] [facility] [address] [id number] [place] [address] Nov, [facility] [place] [facility] [address] [id number] [place] [address] Nov, [facility] [place] [facility] [address] [id number] [place] [address] 07 Oct, 2013 [facility] [place] [facility] [address] [facility] [address] [id number] [place] [address] Oct, [facility] [place] [facility] [address] [id number] [place] [address] Oct, [facility] [place] [facility] [address] [id number] [place] [address] Sep, [facility] [place] [facility] [address] [id number] [place] [address] Sep, [facility] [place] [facility] [address] [id number] [place] [address] Sep, [facility] [place] [facility] [address] [id number] [place] [address] Sep, [facility] [place] [facility] [address] [id number] [place] [address] Sep, [facility] [place] [facility] [address] [id number] [place] [address] Sep, [facility] [place] [facility] [address] [id number] [place] [address] Sep, [facility] [place] [facility] [address] [id number] [place] [address] Sep, [facility] [place] [facility] [address] [id number] [place] [address] Sep, [facility] [place] [facility] [address] [id number] [place] [address] Sep, [facility] [place] [facility] [address] [id number] [place] [address] Sep, [facility] [place] [facility] [address] [id number] [place] [address] Sep, [facility] [place] [facility] [address] [id number] [place] [address] Aug, [facility] [place] [facility] [address] [id number] [place] [address] Aug, [facility] [place] [facility] [address] [id number] [place] [address] Aug, 2012 [facility] [place] [facility] [address] [id number] [place] [address] Aug, [facility] [place] [facility] [address] [id number] [place] [address] Jul, [facility] [place] [facility] [address] [id number] [place] [address] Jul, [facility] [place] [facility] [address] [id number] [place] [address] Jun, [facility] [place] [facility] [address] [id number] [place] [address] Jun, [facility] [place] [facility] [address] [id number] [place] [address] Jun, [facility] [place] [facility] [address] [id number] [place] [address] Jun, [facility] [place] [facility] [address] [id number] [place] [address] Jun, [facility] [place] [facility] [address] [id number] [place] [address] Jun, [facility] [place] [facility] [address] [id number] [place] [address] Jun, [facility] [place] [facility] [address] [id number] [place] [address] Jun, [facility] [place] [facility] [address] [id number] [place] [address] 24 May, 2012 [facility] [place] [facility] [address] [id number] [place] [address] 23 Sep, 2012 [facility] [place] [facility] [address] [id number] [place] [address] 18 Sep, 2012 [facility] [place] [facility] [address] [id number] [place] [address] 13 Sep, 2012 [facility] [place] [facility] [address] [id number] [place] [address] May, 2012 [facility] [place] [facility] [address] [id number] [place] [address] May, [facility] [place] [facility] [address] [facility] [address] [id number] [place] [address] May, [facility] [place] [facility] [address] [id number] [place] [address] Apr, [facility] [place] [facility] [address] [facility] [address] [id number] [place] [address] Apr, [facility] [place] [facility] [address] [facility] [address] [id number] [place] [address] Apr, [facility] [place] [facility] [address] [facility] [address] [id number] [place] [address] Apr, [facility] [place] [facility] [address] [id number] [place] [address] Apr, [facility] [place] [facility] [address] [id number] [place] [address] Apr, [facility] [place] [facility] [address] [facility] [address] [id number] [place] [address] Apr, [facility] [place] [facility] [address] [id number] [place] [address] Mar, [facility] [place] [facility] [address] [id number] [place] [address] Mar, [facility] [place] [facility] [address] [id number] [place] [address] Mar, [facility] [place] [facility] [address] [facility] [address] [id number] [place] [address] Mar, [facility] [place] [facility] [address] [id number] [place] [address] Mar, [facility] [place] [facility] [address] [facility] [address] [id number] [place] [address] Mar, [facility] [place] [facility] [address] [id number] [place] [address] Mar, [facility] [place] [facility] [address] [id number] [place] [address] Mar, [facility] [place] [facility] [address] [id number] [place] [address] Feb, [facility] [place] [facility] [address] [id number] [place] [address] Feb, [facility] [place] [facility] [address] [id number] [place] [address] Feb, [facility] [place] [facility] [address] [id number] [place] [address] January, [facility] [place] [facility] [address] [id number] [place] [address] January, [facility] [place] [facility] [address] [id number] [place] [address] January, [facility] [place] [facility] [address] [id number] [place] [address] January, [facility] [place] [facility] [address] [id number] [place] [address] January, [facility] [place] [facility] [address] [id number] [place] [address] January, [facility] [place] [facility] [address] [id number] [place] [address] January, [facility] [place] [facility] [address] [id number] [place] [address] January, [facility] [place] [facility] [address] [id number] [place] [address] Dec, [facility] [place] [facility] [address] [id number] [place] [address] Dec, [facility] [place] [facility] [address] [id number] [place] [address] Dec, [facility] [place] [facility] [address] [id number] [place] [address] Dec, [facility] [place] [facility] [address] [id number] [place] [address] Dec, [facility] [address] [facility] [address] [id number] [place] [address] 22 Nov, 2012 [facility] [place] [facility] [address] [id number] [place] [address] 21 Nov, 2012 [facility] [place] [facility] [address] [id number] [place] [address] 19 Nov, 2012 [facility] [place] [facility] [address] [id number] [place] [address] 18 Nov, 2012 [facility] [place] [facility] [address] [facility] [address] [id number] [place] [id number] 18 Nov, 2012 [facility] [id number] [place] [address] 14 Nov, 2012 [facility] [id number] [place] [address] Nov, [facility] [id number] [place] [address] Nov, [facility] [id number] [place] [address] Oct, [facility] [id number] [place] [address] 21 Oct, 2012 [facility] [id number] [place] [address] 12 Oct, 2012 [facility] [id number] [place] [address] 08 Oct, 2012 [facility] [id number] [place] [address] 07 Oct, 2012 [facility] [id number] [place] [address] 07 Oct, 2012 [facility] [id number] [place] [address] 05 Oct, 2012 [facility] [id number] [place] [address] 04 Oct, 2012 [facility] [id number] [place] [address] 04 Oct, 2012 [facility] [id number] [place] [address] Sep, [facility] [id number] [place] [address] Sep, [facility] [id number] [place] [address] Sep, [facility] [id number] [place] [address] Sep, [facility] [id number] [place] [address] Sep, [facility] [id number] [place] [address] Sep, [facility] [id number] [place] [address] Aug, [facility] [id number] [place] [address] Aug, [facility] [id number] [place] [address] Aug, [facility] [id number] [place] [address] Aug, [facility] [id number] [place] [address] Aug, [facility] [id number] [place] [address] Aug, [facility] [id number] [place] [address] Aug, [facility] [id number] [place] [address] Aug, [facility] [id number] [place] [address] Aug, [facility] [id number] [place] [address] Jul, [facility] [id number] [place] [address] Jul, [facility] [id number] [place] [address] Jul, [facility] [id number] [place] [address] Jul, [facility] [address] [address] Nov, [facility] [address] [address] Sep, [facility] [address] [address] Aug, [facility] [address] [address] Aug, [facility] [address] [address] Aug, [facility] [id number] [place] [address] Jul, IMMUNIZATIONS No Known Immunizations SOCIAL HISTORY Never Assessed REASON FOR VISIT PLAN OF CARE VITAL SIGNS Height 74 in 2014-02-01 Weight 252 lbs 2014-02-01 Temperature 95.8 degrees Fahrenheit 2014-02-01 Heart Rate 88 bpm 2014-02-01 Respiratory Rate 20 2014-02-01 Blood pressure systolic 140 mmHg 2014-02-01 Blood pressure diastolic 70 mmHg 2014-02-01 MEDICATIONS Unknown Medications RESULTS No Results PROCEDURES Procedure Date Ordered Result Body Site GLYCATED HEMOGLOBIN TEST February 01, 2014 CULTURE, BACTERIA, OTHER February 01, 2014 INSTRUCTIONS MEDICATIONS ADMINISTERED No Known Medications [...] 05/2005 [facility] History Colonoscopy Elijah (1 Polyp) repeat 5 year s 2019 2014 Surgical History right rotator cuff surgery 06/27/2016 Hospitalization History Overdosed on Clonazepam #35. Lori melendrez 03/2014 Hospitalization History Overdosed on Xanax 07/2012 Hospitalization History Hypostension-medication side effect-[facility]ia [facility] 03/13/16
--- OUTSIDE RECORDS SUMMARY | 2020-01-01 11:09 | XMS REPORT ---
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 Active 776705383 Problem Abdominal pain R10.9 Active 00277 001 Problem Change in bowel habit R19.4 Active 42801871 Problem Coronary atherosclerosis due to lipid rich plaque I25.83 Active 50212432 Problem Type 2 diabetes mellitus with complication E11.8 Active 37351952 Problem Impotence N52.9 Active 869963559 Problem Family history of colon cancer Z80.0 Active 841917942 Problem Diabetic neuropathy, painful E11.40 A ctive 994871795 Problem Arm paresthesia, right R20.2 Active 14820749 Problem Gastroesophageal reflux disease without esophagitis K21.9 Active 631435736 Problem Drug abuse, opioid type F11.10 Active 0713242 Problem COPD exacerbation J44.1 Active 19 1608681 Problem Obstructive sleep apnea syndrome G47.33 Active 75352590 Problem Diverticulitis K57.92 Active 35289 6006 Problem Pain of right upper extremity M79.601 Active 377080743 Problem Respiratory bronchiolitis interstitial lung disease J84.115 Active 726382051 Problem Hypoxia R09.02 Active 007608952 Problem Interstitial lung disease J84.9 Acti ve [id number] ALLERGIES No Information ENCOUNTERS Encounter Location Date Diagnosis [facility] [address] [id number] [place] [address] Aug, [facility] [address] [id number] [place] [address] Aug, Diabetic neuropathy, painful E11.40 ; In terstitial lung disease J84.9 ; Chronic cough R05 ; Type 2 diabetes mellitus with complication E11.8 and detention current use of insulin Z79.4 [place] [address] [address] Jul, [facility] [address] [address] Jul, [place] [address] [address] Jul, Diabetic neuropathy, painful E11.40 [place] [address] [address] Jul, Type 2 diabetes mellitus with complicati on E11.8 [place] [address] [address] Jun, Diabetic neuropathy, painful E11.40 [place] [address] [address] Jun, [facility] [address] [facility] [id number] [address] [place] [address] Jun, Type 2 diabetes mellitus wit h complication E11.8 ; Other viral agents as the cause of diseases classified elsewhere B97.89 ; Acute upper respiratory infection, unspecified J06.9 ; Acute recurrent maxillary sinusitis J01.01 ; Sore throat J02.9 and Headache R51 [place] [address] [address] Jun, Right lower quadrant abdominal pain R10. 31 and Type 2 diabetes mellitus with complication E11.8 [place] [address] [address] May, Diabetic neuropathy, painful E11.[address] [address] May, COPD exacerbation J44.1 and Type 2 diabe chidi mellitus with complication E11.8 [place] [address] [address] Apr, Diabetic neuropathy, painful E11.40 [place] [address] [place] [id number] [place] [address] Apr, Diabetic neuropathy, painful E11.40 [facility] [place] [address] [place] [id number] [address] [place] [address] Mar, Bronchitis J40 [place] [address] [address] January, Type 2 diabetes mellitus with complicati [...] Cervical spinal stenosis M48.02 [facility] [place] [id number] [address] [place] [address] January, Viral gastroenteritis A08.4 [place] [address] [address] Dec, Diabetic neuropathy, painful E11.40 [place] [id number] [place] [id number] Oct, [address] [address] Oct, Acute right-sided weakness M62.89 and Sl urring of speech R47.81 [place] [address] [place] [id number] [place] [address] Sep, Type 2 diabetes mellitus with complicati on E11.8 ; Diabetic neuropathy, painful E11.40 ; Impotence N52.9 ; Coronary atherosclerosis due to lipid rich plaque I25.83 ; 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 ; Interstitial lung disease J84.9 ; Hypoxia R09.02 ; Essential hypertension I10 and Gastroesophageal reflux disease without esophagitis K21.9 [facility] [place] [address] [place] [id number] [place] [address] 07 Sep, 2016 Bronchitis J40 [facility] [address] [facility] [id number] [place] [address] Aug, Gastroenteritis and colitis, viral A08.4 [facility] [address] [address] Aug, [facility] [address] [address] Jun, Type 2 diabetes mellitus with complicati on E11.8 ; Diabetic neuropathy, painful E11.40 ; Impotence N52.9 ; Coronary atherosclerosis due to lipid rich plaque I25.83 ; 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 ; Interstitial lung disease J84.9 ; Hypoxia R09.02 and Essential hypertension I10 [facility] [address] [address] 30 May, 2016 Bronchitis J40 [facility] [address] [address] 29 May, 2016 [facility] [address] [address] 20 May, 2016 Pain of right upper extremity M79.601 [facility] [address] [address] May, [facility] [address] [address] 15 May, 2016 [facility] [address] [address] 07 May, 2016 Right hand pain M79.641 [facility] [address] [address] Apr, [facility] [address] [address] Apr, [facility] [address] [address] Mar, [facility] [address] [address] Mar, Essential hypertension I10 [place] [address] [address] Feb, [place] [address] [address] Feb, Interstitial lung disease J84.9 and Bron chitis J40 [place] [address] [address] Feb, [place] [address] [address] Feb, Type 2 diabetes mellitus with complicati on E11.8 ; Impotence N52.9 ; Coronary atherosclerosis due to lipid rich plaque I25.83 ; 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 and Diabetic neuropathy, painful E11.40 [place] [address] [address] January, [place] [address] [address] January, Arm paresthesia, right R20.2 and Pain of right upper extremity M79.601 [place] [address] [address] Dec, Lumbar strain S39.012A [place] [address] [address] Nov, Diabetic neuropathy, painful E11.40 ; Re spiratory bronchiolitis interstitial lung disease J84.115 ; Pain of right upper extremity M79.601 and Arm paresthesia, right R20.2 [place] [address] [address] Nov, Diabetic neuropathy, painful E11.40 [place] [address] [address] Sep, Type 2 diabetes mellitus with complicati on E11.8 ; Impotence N52.9 ; Coronary atherosclerosis due to lipid rich plaque I25.83 ; 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 ; Diabetic neuropathy, painful E11.40 ; Chest pain R07.9 and Restless leg G25.81 [place] [address] [address] Sep, [place] [address] [address] Jul, COPD (chronic obstructive pulmonary dise ase) with acute bronchitis J44.[address] [address] Jun, Abdominal pain R10.9 ; Family history of colon cancer Z80.0 and Diverticulitis K57.[address] [address] Jun, Abdominal pain R10.9 and Diverticulitis K57.[address] [address] Apr, Diabetes with other specified manifestat ions, type II or unspecified type, not stated as uncontrolled 250.80 ; Coronary atherosclerosis of unspecified type of vessel, [place] or graft 414.00 ; Unspecified essential hypertension 401.9 ; Impotence of organic origin 607.84 ; Sleep apnea 780.57 and Interstitial lung disease 515 [place] [address] [address] Dec, [address] [address] Dec, [place] [address] [address] Nov, [place] [address] [address] Nov, [place] [address] [address] Nov, [address] [address] Nov, [address] [address] Nov, 2014 [facility] [place] [facility] [address] [id number] [place] [address] Nov, [facility] [place] [facility] [address] [id number] [place] [address] Nov, 2014 [facility] [place] [facility] [address] [id number] [place] [address] Nov, 2014 [facility] [place] [facility] [address] [id number] [place] [address] Nov, 2014 [facility] [place] [facility] [address] [id number] [place] [address] Nov, 2014 [facility] [place] [facility] [address] [id number] [place] [address] Oct, 2014 [facility] [place] [facility] [address] [id number] [place] [address] Oct, 2014 [facility] [place] [facility] [address] [id number] [place] [address] Oct, 2014 [facility] [place] [facility] [address] [id number] [place] [address] Oct, 2014 [facility] [place] [facility] [address] [id number] [place] [address] Oct, 2014 [facility] [place] [facility] [address] [id number] [place] [address] Oct, 2014 [facility] [place] [facility] [address] [id number] [place] [address] Oct, 2014 [facility] [place] [facility] [address] [id number] [place] [address] Oct, 2014 [facility] [place] [facility] [address] [id number] [place] [address] Oct, 2014 [facility] [place] [facility] [address] [id number] [place] [address] Oct, 2014 [facility] [place] [facility] [address] [id number] [place] [address] Oct, [facility] [place] [facility] [address] [facility] [id number] [place] [address] Jul, 2013 [facility] [place] [facility] [address] [id number] [place] [address] Jul, 2013 [facility] [place] [facility] [address] [id number] [place] [address] Jun, 2013 [facility] [place] [facility] [address] [id number] [place] [address] Jun, 2013 [facility] [place] [facility] [address] [id number] [place] [address] Jun, 2013 [facility] [place] [facility] [address] [id number] [place] [address] Jun, 2013 [facility] [place] [facility] [address] [id number] [place] [address] 15 Jun, 2014 [facility] [place] [facility] [address] [id number] [place] [address] 15 Jun, 2013 [facility] [place] [facility] [address] [id number] [place] [address] 14 Jun, 2014 [facility] [place] [facility] [address] [id number] [place] [address] 14 Jun, 2014 [facility] [place] [facility] [address] [id number] [place] [address] Jun, 2013 [facility] [place] [facility] [address] [id number] [place] [address] Jun, [facility] [place] [facility] [address] [id number] [place] [address] 08 Jun, 2013 [facility] [place] [facility] [address] [id number] [place] [address] 08 Jun, 2014 [facility] [place] [facility] [address] [id number] [place] [address] Jun, 2013 [facility] [place] [facility] [address] [id number] [place] [address] Jun, 2013 [facility] [place] [facility] [address] [id number] [place] [address] May, 2013 [facility] [place] [facility] [address] [id number] [facility] [place] [address] 30 May, 2014 [facility] [place] [facility] [address] [facility] [id number] [facility] [place] [address] May, 2013 [facility] [place] [facility] [address] [id number] [facility] [place] [address] May, 2013 [facility] [place] [facility] [address] [facility] [id number] [place] [address] May, 2013 [facility] [place] [facility] [address] [facility] [id number] [facility] [place] [address] May, [facility] [place] [facility] [address] [id number] [facility] [place] [address] Apr, [facility] [place] [facility] [address] [id number] [place] [address] Apr, [facility] [place] [facility] [address] [id number] [facility] [place] [address] Apr, [facility] [place] [facility] [address] [id number] [place] [address] Apr, [facility] [place] [facility] [address] [id number] [place] [address] Apr, [facility] [place] [facility] [address] [id number] [place] [address] Apr, [facility] [place] [facility] [address] [id number] [place] [address] Apr, [facility] [place] [facility] [address] [id number] [place] [address] Apr, [facility] [place] [facility] [address] [id number] [place] [address] Apr, [facility] [place] [facility] [address] [id number] [place] [address] Apr, [facility] [place] [facility] [address] [id number] [place] [address] Apr, [facility] [place] [facility] [address] [id number] [facility] [place] [address] Apr, [facility] [place] [facility] [address] [id number] [facility] [place] [address] Mar, [facility] [place] [facility] [address] [facility] [id number] [place] [address] Mar, [facility] [place] [facility] [address] [id number] [place] [address] Mar, [facility] [place] [facility] [address] [facility] [id number] [place] [address] Mar, [facility] [place] [facility] [address] [facility] [id number] [facility] [place] [address] Mar, [facility] [place] [facility] [address] [id number] [place] [address] Mar, [facility] [place] [facility] [address] [id number] [place] [address] Mar, [facility] [place] [facility] [address] [id number] [place] [address] Mar, [facility] [place] [facility] [address] [facility] [id number] [place] [address] Mar, [facility] [place] [facility] [address] [id number] [place] [address] Mar, [facility] [place] [facility] [address] [id number] [place] [address] Mar, [facility] [place] [facility] [address] [id number] [place] [address] Feb, [facility] [place] [facility] [address] [facility] [id number] [place] [address] Feb, [facility] [place] [facility] [address] [id number] [place] [address] Feb, [facility] [place] [facility] [address] [id number] [place] [address] Feb, [facility] [place] [facility] [address] [id number] [place] [address] Feb, [facility] [place] [facility] [address] [id number] [place] [address] Feb, [facility] [place] [facility] [address] [id number] [place] [address] Feb, [facility] [place] [facility] [address] [id number] [place] [address] Feb, [facility] [place] [facility] [address] [id number] [place] [address] Feb, [facility] [place] [facility] [address] [facility] [id number] [place] [address] Feb, [facility] [place] [facility] [address] [id number] [place] [address] January, [facility] [place] [facility] [address] [id number] [place] [address] January, [facility] [place] [facility] [address] [id number] [place] [address] January, [facility] [place] [facility] [address] [id number] [place] [address] January, [facility] [place] [facility] [address] [id number] [place] [address] January, [facility] [place] [facility] [address] [id number] [place] [address] January, [facility] [place] [facility] [address] [id number] [place] [address] January, [facility] [place] [facility] [address] [id number] [place] [address] January, [facility] [place] [facility] [address] [id number] [place] [address] January, [facility] [place] [facility] [address] [id number] [place] [address] January, [facility] [place] [facility] [address] [id number] [place] [address] January, [facility] [place] [facility] [address] [id number] [place] [address] January, [facility] [place] [facility] [address] [facility] [id number] [place] [address] January, [facility] [place] [facility] [address] [id number] [place] [address] January, [facility] [place] [facility] [address] [id number] [place] [address] January, [facility] [place] [facility] [address] [id number] [place] [address] January, [facility] [place] [facility] [address] [facility] [id number] [place] [address] Dec, [facility] [place] [facility] [address] [id number] [place] [address] Dec, [facility] [place] [facility] [address] [id number] [place] [address] Dec, [facility] [place] [facility] [address] [id number] [place] [address] Dec, [facility] [place] [facility] [address] [id number] [place] [address] Dec, [facility] [place] [facility] [address] [id number] [place] [address] Dec, [facility] [place] [facility] [address] [id number] [place] [address] Dec, [facility] [place] [facility] [address] [id number] [place] [address] Dec, [facility] [place] [facility] [address] [id number] [place] [address] Dec, [facility] [place] [facility] [address] [id number] [place] [address] Dec, [facility] [place] [facility] [address] [id number] [place] [address] Nov, [facility] [place] [facility] [address] [id number] [place] [address] Nov, [facility] [place] [facility] [address] [id number] [place] [address] 07 Oct, 2013 [facility] [place] [facility] [address] [facility] [id number] [place] [address] Oct, [facility] [place] [facility] [address] [id number] [place] [address] Oct, [facility] [place] [facility] [address] [id number] [place] [address] Sep, [facility] [place] [facility] [address] [id number] [place] [address] Sep, [facility] [place] [facility] [address] [id number] [place] [address] Sep, [facility] [place] [facility] [address] [id number] [place] [address] Sep, [facility] [place] [facility] [address] [id number] [place] [address] Sep, [facility] [place] [facility] [address] [id number] [place] [address] Sep, [facility] [place] [facility] [address] [id number] [place] [address] Sep, [facility] [place] [facility] [address] [id number] [place] [address] Sep, [facility] [place] [facility] [address] [id number] [place] [address] Sep, [facility] [place] [facility] [address] [id number] [place] [address] Sep, [facility] [place] [facility] [address] [id number] [place] [address] Sep, [facility] [place] [facility] [address] [id number] [place] [address] Sep, [facility] [place] [facility] [address] [id number] [place] [address] Aug, [facility] [place] [facility] [address] [id number] [place] [address] Aug, [facility] [place] [facility] [address] [id number] [place] [address] Aug, 2012 [facility] [place] [facility] [address] [id number] [place] [address] Aug, [facility] [place] [facility] [address] [id number] [place] [address] Jul, [facility] [place] [facility] [address] [id number] [place] [address] Jul, [facility] [place] [facility] [address] [id number] [place] [address] Jun, [facility] [place] [facility] [address] [id number] [place] [address] Jun, [facility] [place] [facility] [address] [id number] [place] [address] Jun, [facility] [place] [facility] [address] [id number] [place] [address] Jun, [facility] [place] [facility] [address] [id number] [place] [address] Jun, [facility] [place] [facility] [address] [id number] [place] [address] Jun, [facility] [place] [facility] [address] [id number] [place] [address] Jun, [facility] [place] [facility] [address] [id number] [place] [address] Jun, [facility] [place] [facility] [address] [id number] [place] [address] 24 May, 2012 [facility] [place] [facility] [address] [id number] [place] [address] 23 Sep, 2012 [facility] [place] [facility] [address] [id number] [place] [address] 18 Sep, 2012 [facility] [place] [facility] [address] [id number] [place] [address] 13 Sep, 2012 [facility] [place] [facility] [address] [id number] [facility] [place] [address] May, 2012 [facility] [place] [facility] [address] [id number] [facility] [place] [address] May, [facility] [place] [facility] [address] [facility] [id number] [facility] [place] [address] May, [facility] [place] [facility] [address] [id number] [facility] [place] [address] Apr, [facility] [place] [facility] [address] [facility] [id number] [place] [address] Apr, [facility] [place] [facility] [address] [facility] [id number] [place] [address] Apr, [facility] [place] [facility] [address] [facility] [id number] [place] [address] Apr, [facility] [place] [facility] [address] [id number] [facility] [place] [address] Apr, [facility] [place] [facility] [address] [id number] [facility] [place] [address] Apr, [facility] [place] [facility] [address] [facility] [id number] [facility] [place] [address] Apr, [facility] [place] [facility] [address] [id number] [facility] [place] [address] Mar, [facility] [place] [facility] [address] [id number] [facility] [place] [address] Mar, [facility] [place] [facility] [address] [id number] [facility] [place] [address] Mar, [facility] [place] [facility] [address] [facility] [id number] [facility] [place] [address] Mar, [facility] [place] [facility] [address] [id number] [facility] [place] [address] Mar, [facility] [place] [facility] [address] [facility] [id number] [facility] [place] [address] Mar, [facility] [place] [facility] [address] [id number] [facility] [place] [address] Mar, [facility] [place] [facility] [address] [id number] [place] [address] Mar, [facility] [address] [id number] [place] [address] Feb, [facility] [address] [id number] [place] [address] Feb, [facility] [address] [id number] [place] [address] Feb, [facility] [address] [id number] [place] [address] January, [facility] [address] [id number] [place] [address] January, [facility] [address] [id number] [place] [address] January, [facility] [address] [id number] [place] [address] January, [facility] [address] [id number] [place] [address] January, [facility] [address] [id number] [place] [address] January, [facility] [address] [id number] [place] [address] January, [facility] [address] [id number] [place] [address] January, [facility] [address] [id number] [place] [address] Dec, [facility] [address] [id number] [place] [address] Dec, [facility] [address] [id number] [place] [address] Dec, [facility] [address] [id number] [place] [address] Dec, [facility] [address] [id number] [place] [address] Dec, [facility] [address] [facility] [id number] [place] [address] 22 Nov, 2012 [facility] [address] [id number] [place] [address] 21 Nov, 2012 [facility] [address] [id number] [place] [address] 19 Nov, 2012 [facility] [address] [id number] [place] [address] 18 Nov, 2012 [facility] [address] [facility] [id number] [place] [address] 18 Nov, 2012 [facility] [address] [id number] [place] [address] 14 Nov, 2012 [facility] [address] [id number] [place] [address] Nov, [facility] [address] [id number] [place] [address] Nov, [facility] [address] [id number] [place] [address] Oct, [facility] [address] [id number] [place] [address] 21 Oct, 2012 [facility] [address] [id number] [place] [address] 12 Oct, 2012 [facility] [address] [id number] [place] [address] 08 Oct, 2012 [facility] [address] [id number] [place] [address] 07 Oct, 2012 [facility] [address] [id number] [place] [address] 07 Oct, 2012 [facility] [address] [id number] [place] [address] 05 Oct, 2012 [facility] [address] [id number] [place] [address] 04 Oct, 2012 [facility] [address] [id number] [place] [address] 04 Oct, 2012 [facility] [address] [id number] [place] [address] Sep, [facility] [address] [id number] [place] [address] Sep, [facility] [address] [id number] [place] [address] Sep, [facility] [address] [id number] [place] [address] Sep, [facility] [address] [id number] [place] [address] Sep, [facility] [address] [id number] [place] [address] Sep, [facility] [address] [id number] [place] [address] Aug, [facility] [address] [id number] [place] [address] Aug, [facility] [address] [id number] [place] [address] Aug, [facility] [address] [id number] [place] [address] Aug, [facility] [address] [id number] [place] [address] Aug, [facility] [address] [id number] [place] [address] Aug, [facility] [address] [id number] [place] [address] Aug, [facility] [address] [id number] [place] [address] Aug, [facility] [address] [id number] [place] [address] Aug, [facility] [address] [id number] [place] [address] Jul, [facility] [id number] [place] [address] Jul, [facility] [address] [address] Jul, [facility] [id number] [place] [address] Jul, [facility] [address] [address] Nov, [facility] [address] [address] Sep, [facility] [address] [address] Aug, [facility] [address] [address] Aug, [facility] [address] [address] Aug, [facility] [id number] [place] [address] Jul, IMMUNIZATIONS No Known Immunizations SOCIAL HISTORY Never Assessed REASON FOR VISIT PLAN OF CARE VITAL SIGNS Height 74 in 2013-12-31 Weight 258.6 lbs 2013-12-31 Temperature 97.9 degrees Fahrenheit 2013-12-31 Heart Rate 76 bpm 2013-12-31 Respiratory Rate 16 2013-12-31 Blood pressure systolic 140 mmHg 2013-12-31 Blood pressure diastolic 84 mmHg 2013-12-31 MEDICATIONS Unknown Medications RESULTS No Results PROCEDURES Procedure Date Ordered Result Body Site X-RAY EXAM OF TOE(S) December 31, 2013 INSTRUCTIONS MEDICATIONS ADMINISTERED No Known Medications [...] 05/2005 [facility] Surgical History Colonoscopy Elijah (1 Polyp) repeat 5 year s 2019 2014 Surgical History right rotator cuff surgery 06/27/2016 Hospitalization History Overdosed on Clonazepam #35. Lori melendrez 03/2014 Hospitalization History Overdosed on Xanax 07/2012 Hospitalization History Hypostension-medication side effect-[facility] 03/13/16
--- OUTSIDE RECORDS SUMMARY | 2020-01-01 11:09 | XMS REPORT ---
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10 Active 0980655 Problem COPD exacerbation J44.1 Active 19 9913916 Problem Obstructive sleep apnea syndrome G47.33 Active 09359641 Problem Diverticulitis K57.92 Active 82403 6006 Problem Pain of right upper extremity M79.601 Active 509924714 Problem Respiratory bronchiolitis interstitial lung disease J84.115 Active 134161646 Problem Hypoxia R09.02 Active 482095010 Problem Interstitial lung disease J84.9 Acti ve [id number] ALLERGIES No Information ENCOUNTERS Encounter Location Date Diagnosis [facility] [address] [id number] [place] [address] Aug, [facility] [address] [id number] [place] [address] Aug, Diabetic neuropathy, painful E11.40 ; In terstitial lung disease J84.9 ; Chronic cough R05 ; Type 2 diabetes mellitus with complication E11.8 and [facility] current use of insulin Z79.4 [place] [address] [address] Jul, [facility] [address] [address] Jul, [place] [address] [address] Jul, Diabetic neuropathy, painful E11.40 [place] [address] [address] Jul, Type 2 diabetes mellitus with complicati on E11.8 [place] [address] [address] Jun, Diabetic neuropathy, painful E11.40 [place] [address] [address] Jun, [facility] [address] [facility] [id number] [address] [place] [address] Jun, Type 2 diabetes mellitus wit h complication E11.8 ; Other viral agents as the cause of diseases classified elsewhere B97.89 ; Acute upper respiratory infection, unspecified J06.9 ; Acute recurrent maxillary sinusitis J01.01 ; Sore throat J02.9 and Headache R51 [place] [address] [address] Jun, Right lower quadrant abdominal pain R10. 31 and Type 2 diabetes mellitus with complication E11.8 [place] [address] [address] May, Diabetic neuropathy, painful E11.[address] [address] May, COPD exacerbation J44.1 and Type 2 diabe chidi mellitus with complication E11.8 [place] [address] [address] Apr, Diabetic neuropathy, painful E11.40 [place] [address] [place] [id number] [place] [address] Apr, Diabetic neuropathy, painful E11.40 [facility] WALK [facility] [place] [address] [address] [place] [id number] [address] [place] [address] Mar, Bronchitis J40 [place] [address] [address] January, Type 2 diabetes mellitus with complicati [...] M79.622 and Cervical spinal stenosis M48.02 [facility] [place] [id number] [place] [address] January, Viral gastroenteritis A08.4 [place] [address] [address] Dec, Diabetic neuropathy, painful E11.40 [place] [id number] [place] [id number] Oct, [address] [address] Oct, Acute right-sided weakness M62.89 and Sl urring of speech R47.81 [place] [address] [place] [id number] [place] [address] Sep, Type 2 diabetes mellitus with complicati on E11.8 ; Diabetic neuropathy, painful E11.40 ; Impotence N52.9 ; Coronary atherosclerosis due to lipid rich plaque I25.83 ; 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 WALK [facility] [place] [address] [address] [place] [id number] [address] [address] 07 Sep, 2016 Bronchitis J40 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 ; Interstitial lung disease J84.9 ; Hypoxia R09.02 and Essential hypertension I10 [facility] [address] [address] 30 May, 2016 Bronchitis J40 [facility] [address] [address] 29 May, 2016 [facility] [address] [address] 20 May, 2016 Pain of right upper extremity M79.601 [facility] [address] [address] May, [facility] [address] [address] 15 May, 2016 [facility] [address] [address] 07 May, 2016 Right hand pain M79.641 [facility] [address] [address] Apr, [facility] [address] [address] Apr, [facility] [address] [address] Mar, [facility] [address] [address] Mar, Essential hypertension I10 [place] [address] [address] Feb, [place] [address] [address] Feb, Interstitial lung disease J84.9 and Bron chitis J40 [place] [address] [address] Feb, [place] [address] [address] Feb, Type 2 diabetes mellitus with complicati on E11.8 ; Impotence N52.9 ; Coronary atherosclerosis due to lipid rich plaque I25.83 ; 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 and Diabetic neuropathy, painful E11.40 [place] [address] [address] January, [place] [address] [address] January, Arm paresthesia, right R20.2 and Pain of right upper extremity M79.601 [place] [address] [address] Dec, Lumbar strain S39.012A [place] [address] [address] Nov, Diabetic neuropathy, painful E11.40 ; Re spiratory bronchiolitis interstitial lung disease J84.115 ; Pain of right upper extremity M79.601 and Arm paresthesia, right R20.2 [place] [address] [address] Nov, Diabetic neuropathy, painful E11.40 [place] [address] [address] Sep, Type 2 diabetes mellitus with complicati on E11.8 ; Impotence N52.9 ; Coronary atherosclerosis due to lipid rich plaque I25.83 ; 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 ; Diabetic neuropathy, painful E11.40 ; Chest pain R07.9 and Restless leg G25.81 [place] [address] [address] Sep, [place] [address] [address] Jul, COPD (chronic obstructive pulmonary dise ase) with acute bronchitis J44.[address] [address] Jun, Abdominal pain R10.9 ; Family history of colon cancer Z80.0 and Diverticulitis K57.[address] [address] Jun, Abdominal pain R10.9 and Diverticulitis K57.[address] [address] Apr, Diabetes with other specified manifestat ions, type II or unspecified type, not stated as uncontrolled 250.80 ; Coronary atherosclerosis of unspecified type of vessel, [place] or graft 414.00 ; Unspecified essential hypertension 401.9 ; Impotence of organic origin 607.84 ; Sleep apnea 780.57 and Interstitial lung disease 515 [place] [address] [address] Dec, [address] [address] Dec, [place] [address] [address] Nov, [place] [address] [address] Nov, [place] [address] [address] Nov, [address] [address] Nov, [address] [address] Nov, 2014 [facility] [place] [facility] [address] [id number] [place] [address] Nov, [facility] [place] [facility] [address] [id number] [place] [address] Nov, 2014 [facility] [place] [facility] [address] [id number] [place] [address] Nov, 2014 [facility] [place] [facility] [address] [id number] [place] [address] Nov, 2014 [facility] [place] [facility] [address] [id number] [place] [address] Nov, 2014 [facility] [place] [facility] [address] [id number] [place] [address] Oct, 2014 [facility] [place] [facility] [address] [id number] [place] [address] Oct, 2014 [facility] [place] [facility] [address] [id number] [place] [address] Oct, 2014 [facility] [place] [facility] [address] [id number] [place] [address] Oct, 2014 [facility] [place] [facility] [address] [id number] [place] [address] Oct, 2014 [facility] [place] [facility] [address] [id number] [place] [address] Oct, 2014 [facility] [place] [facility] [address] [id number] [place] [address] Oct, 2014 [facility] [place] [facility] [address] [id number] [place] [address] Oct, 2014 [facility] [place] [facility] [address] [id number] [place] [address] Oct, 2014 [facility] [place] [facility] [address] [id number] [place] [address] Oct, 2014 [facility] [place] [facility] [address] [id number] [place] [address] Oct, [facility] [place] [facility] [address] [facility] [id number] [place] [address] Jul, 2013 [facility] [place] [facility] [address] [id number] [place] [address] Jul, 2013 [facility] [place] [facility] [address] [id number] [place] [address] Jun, 2013 [facility] [place] [facility] [address] [id number] [place] [address] Jun, 2013 [facility] [place] [facility] [address] [id number] [place] [address] Jun, 2013 [facility] [place] [facility] [address] [id number] [place] [address] Jun, 2013 [facility] [place] [facility] [address] [id number] [place] [address] 15 Jun, 2014 [facility] [place] [facility] [address] [id number] [place] [address] 15 Jun, 2013 [facility] [place] [facility] [address] [id number] [place] [address] 14 Jun, 2014 [facility] [place] [facility] [address] [id number] [place] [address] 14 Jun, 2014 [facility] [place] [facility] [address] [id number] [place] [address] Jun, 2013 [facility] [place] [facility] [address] [id number] [place] [address] Jun, [facility] [place] [facility] [address] [id number] [place] [address] 08 Jun, 2013 [facility] [place] [facility] [address] [id number] [place] [address] 08 Jun, 2014 [facility] [place] [facility] [address] [id number] [place] [address] Jun, 2013 [facility] [place] [facility] [address] [id number] [place] [address] Jun, 2013 [facility] [place] [facility] [address] [id number] [place] [address] May, 2013 [facility] [place] [facility] [address] [id number] [place] [address] 30 May, 2014 [facility] [place] [facility] [address] [facility] [id number] [place] [address] May, 2013 [facility] [place] [facility] [address] [id number] [place] [address] May, 2013 [facility] [place] [facility] [address] [facility] [id number] [place] [address] May, 2013 [facility] [place] [facility] [address] [facility] [id number] [place] [address] May, [facility] [place] [facility] [address] [id number] [place] [address] Apr, [facility] [place] [facility] [address] [id number] [place] [address] Apr, [facility] [place] [facility] [address] [id number] [place] [address] Apr, [facility] [place] [facility] [address] [id number] [place] [address] Apr, [facility] [place] [facility] [address] [id number] [place] [address] Apr, [facility] [place] [facility] [address] [id number] [place] [address] Apr, [facility] [place] [facility] [address] [id number] [place] [address] Apr, [facility] [place] [facility] [address] [id number] [place] [address] Apr, [facility] [place] [facility] [address] [id number] [place] [address] Apr, [facility] [place] [facility] [address] [id number] [place] [address] Apr, [facility] [place] [facility] [address] [id number] [place] [address] Apr, [facility] [place] [facility] [address] [id number] [place] [address] Apr, [facility] [place] [facility] [address] [id number] [place] [address] Mar, [facility] [place] [facility] [address] [facility] [id number] [place] [address] Mar, [facility] [place] [facility] [address] [id number] [place] [address] Mar, [facility] [place] [facility] [address] [facility] [id number] [place] [address] Mar, [facility] [place] [facility] [address] [facility] [id number] [place] [address] Mar, [facility] [place] [facility] [address] [id number] [place] [address] Mar, [facility] [place] [facility] [address] [id number] [place] [address] Mar, [facility] [place] [facility] [address] [id number] [place] [address] Mar, [facility] [place] [facility] [address] [facility] [id number] [place] [address] Mar, [facility] [place] [facility] [address] [id number] [place] [address] Mar, [facility] [place] [facility] [address] [id number] [place] [address] Mar, [facility] [place] [facility] [address] [id number] [place] [address] Feb, [facility] [place] [facility] [address] [facility] [id number] [place] [address] Feb, [facility] [place] [facility] [address] [id number] [place] [address] Feb, [facility] [place] [facility] [address] [id number] [place] [address] Feb, [facility] [place] [facility] [address] [id number] [place] [address] Feb, [facility] [place] [facility] [address] [id number] [place] [address] Feb, [facility] [place] [facility] [address] [id number] [place] [address] Feb, [facility] [place] [facility] [address] [id number] [place] [address] Feb, [facility] [place] [facility] [address] [id number] [place] [address] Feb, [facility] [place] [facility] [address] [facility] [id number] [place] [address] Feb, [facility] [place] [facility] [address] [id number] [place] [address] January, [facility] [place] [facility] [address] [id number] [place] [address] January, [facility] [place] [facility] [address] [id number] [place] [address] January, [facility] [place] [facility] [address] [id number] [place] [address] January, [facility] [place] [facility] [address] [id number] [place] [address] January, [facility] [place] [facility] [address] [id number] [place] [address] January, [facility] [place] [facility] [address] [id number] [place] [address] January, [facility] [place] [facility] [address] [id number] [place] [address] January, [facility] [place] [facility] [address] [id number] [place] [address] January, [facility] [place] [facility] [address] [id number] [place] [address] January, [facility] [place] [facility] [address] [id number] [place] [address] January, [facility] [place] [facility] [address] [id number] [place] [address] January, [facility] [place] [facility] [address] [facility] [id number] [place] [address] January, [facility] [place] [facility] [address] [id number] [place] [address] January, [facility] [place] [facility] [address] [id number] [place] [address] January, [facility] [place] [facility] [address] [id number] [place] [address] January, [facility] [place] [facility] [address] [facility] [id number] [place] [address] Dec, [facility] [place] [facility] [address] [id number] [place] [address] Dec, [facility] [place] [facility] [address] [id number] [place] [address] Dec, [facility] [place] [facility] [address] [id number] [place] [address] Dec, [facility] [place] [facility] [address] [id number] [place] [address] Dec, [facility] [place] [facility] [address] [id number] [place] [address] Dec, [facility] [place] [facility] [address] [id number] [place] [address] Dec, [facility] [place] [facility] [address] [id number] [place] [address] Dec, [facility] [place] [facility] [address] [id number] [place] [address] Dec, [facility] [place] [facility] [address] [id number] [place] [address] Dec, [facility] [place] [facility] [address] [id number] [place] [address] Nov, [facility] [place] [facility] [address] [id number] [place] [address] Nov, [facility] [place] [facility] [address] [id number] [place] [address] 07 Oct, 2013 [facility] [place] [facility] [address] [facility] [id number] [place] [address] Oct, [facility] [place] [facility] [address] [id number] [place] [address] Oct, [facility] [place] [facility] [address] [id number] [place] [address] Sep, [facility] [place] [facility] [address] [id number] [place] [address] Sep, [facility] [place] [facility] [address] [id number] [place] [address] Sep, [facility] [place] [facility] [address] [id number] [place] [address] Sep, [facility] [place] [facility] [address] [id number] [place] [address] Sep, [facility] [place] [facility] [address] [id number] [place] [address] Sep, [facility] [place] [facility] [address] [id number] [place] [address] Sep, [facility] [place] [facility] [address] [id number] [place] [address] Sep, [facility] [place] [facility] [address] [id number] [place] [address] Sep, [facility] [place] [facility] [address] [id number] [place] [address] Sep, [facility] [place] [facility] [address] [id number] [place] [address] Sep, [facility] [place] [facility] [address] [id number] [place] [address] Sep, [facility] [place] [facility] [address] [id number] [place] [address] Aug, [facility] [place] [facility] [address] [id number] [place] [address] Aug, [facility] [place] [facility] [address] [id number] [place] [address] Aug, 2012 [facility] [place] [facility] [address] [id number] [place] [address] Aug, [facility] [place] [facility] [address] [id number] [place] [address] Jul, [facility] [place] [facility] [address] [id number] [place] [address] Jul, [facility] [place] [facility] [address] [id number] [place] [address] Jun, [facility] [place] [facility] [address] [id number] [place] [address] Jun, [facility] [place] [facility] [address] [id number] [place] [address] Jun, [facility] [place] [facility] [address] [id number] [place] [address] Jun, [facility] [place] [facility] [address] [id number] [place] [address] Jun, [facility] [place] [facility] [address] [id number] [place] [address] Jun, [facility] [place] [facility] [address] [id number] [place] [address] Jun, [facility] [place] [facility] [address] [id number] [place] [address] Jun, [facility] [place] [facility] [address] [id number] [place] [address] 24 May, 2012 [facility] [place] [facility] [address] [id number] [place] [address] 23 Sep, 2012 [facility] [place] [facility] [address] [id number] [place] [address] 18 Sep, 2012 [facility] [place] [facility] [address] [id number] [place] [address] 13 Sep, 2012 [facility] [place] [facility] [address] [id number] [place] [address] May, 2012 [facility] [place] [facility] [address] [id number] [place] [address] May, [facility] [place] [facility] [address] [facility] [id number] [place] [address] May, [facility] [place] [facility] [address] [id number] [place] [address] Apr, [facility] [place] [facility] [address] [facility] [id number] [place] [address] Apr, [facility] [place] [facility] [address] [facility] [id number] [place] [address] Apr, [facility] [place] [facility] [address] [facility] [id number] [place] [address] Apr, [facility] [place] [facility] [address] [id number] [place] [address] Apr, [facility] [place] [facility] [address] [id number] [place] [address] Apr, [facility] [place] [facility] [address] [facility] [id number] [facility], [place] [address] Apr, [facility] [address] [id number] [place] [address] Mar, [facility] [address] [id number] [place] [address] Mar, [facility] [address] [id number] [place] [address] Mar, [facility] [address] [facility] [id number] [place] [address] Mar, [facility] [address] [id number] [place] [address] Mar, [facility] [address] [facility] [id number] [place] [address] Mar, [facility] [address] [id number] [place] [address] Mar, [facility] [address] [id number] [place] [address] Mar, [facility] [address] [id number] [place] [address] Feb, [facility] [address] [id number] [place] [address] Feb, [facility] [address] [id number] [place] [address] Feb, [facility] [address] [id number] [place] [address] January, [facility] [address] [id number] [place] [address] January, [facility] [address] [id number] [place] [address] January, [facility] [address] [id number] [place] [address] January, [facility] [address] [id number] [place] [address] January, [facility] [address] [id number] [place] [address] January, [facility] [address] [id number] [place] [address] January, [facility] [address] [id number] [place] [address] January, [facility] [address] [id number] [place] [address] Dec, [facility] [address] [id number] [place] [address] Dec, [facility] [address] [id number] [place] [address] Dec, [facility] [address] [id number] [place] [address] Dec, [facility] [address] [id number] [place] [address] Dec, [facility] [address] [facility] [id number] [place] [address] 22 Nov, 2012 [facility] [address] [id number] [place] [address] 21 Nov, 2012 [facility] [address] [id number] [place] [address] 19 Nov, 2012 [facility] [address] [id number] [place] [address] 18 Nov, 2012 [facility] [address] [facility] [id number] [place] [address] 18 Nov, 2012 [facility] [address] [id number] [place] [address] 14 Nov, 2012 [facility] [address] [id number] [place] [address] Nov, [facility] [address] [id number] [place] [address] Nov, [facility] [address] [id number] [place] [address] Oct, [facility] [address] [id number] [place] [address] 21 Oct, 2012 [facility] [address] [id number] [place] [address] 12 Oct, 2012 [facility] [address] [id number] [place] [address] 08 Oct, 2012 [facility] [address] [id number] [place] [address] 07 Oct, 2012 [facility] [address] [id number] [place] [address] 07 Oct, 2012 [facility] [address] [id number] [place] [address] 05 Oct, 2012 [facility] [address] [id number] [place] [address] 04 Oct, 2012 [facility] [address] [id number] [place] [address] 04 Oct, 2012 [facility] [address] [id number] [place] [address] Sep, [facility] [address] [id number] [place] [address] Sep, [facility] [address] [id number] [place] [address] Sep, [facility] [address] [id number] [place] [address] Sep, [facility] [address] [id number] [place] [address] Sep, [facility] [address] [id number] [place] [address] Sep, [facility] [address] [id number] [place] [address] Aug, [facility] [address] [id number] [place] [address] Aug, [facility] [address] [id number] [place] [address] Aug, [facility] [address] [id number] [place] [address] Aug, [facility] [address] [id number] [place] [address] Aug, [facility] [address] [id number] [place] [address] Aug, [facility] [address] [id number] [place] [address] Aug, [facility] [address] [id number] [place] [address] Aug, [facility] [address] [id number] [place] [address] Aug, [facility] [address] [id number] [place] [address] Jul, [facility] [id number] [place] [address] Jul, [facility] [address] [address] Jul, [facility] [address] [address] Jul, [facility] [address] [address] Nov, [facility] [address] [address] Sep, [facility] [address] [address] Aug, [facility] [address] [address] Aug, [facility] [address] [address] Aug, [facility] [address] [address] Jul, IMMUNIZATIONS No Known Immunizations SOCIAL HISTORY [...]
--- OUTSIDE RECORDS SUMMARY | 2020-01-01 11:09 | XMS REPORT ---
Author Author Miguel CHAPPELL Organization [facility] [place] Address [address] [place] [address] Care Team Providers Care Blender Name Role Phone NATHALIA CHAPPELLWNYA Unavailable PROBLEMS Type Condition ICD9-CM Code YLH82-CA Code Onset Dates Condition S tatus SNOMED Code Problem Neuropathy G62.9 Active 335582607 Problem Essential hypertension I10 Active 58262211 Problem terminologist current use of insulin Z79.4 Active 439374184 Problem Abdominal pain R10.9 Active 69820 001 Problem Change in bowel habit R19.4 Active 65463618 Problem Coronary atherosclerosis due to lipid rich plaque I25.83 Active 02832386 Problem Type 2 diabetes mellitus with complication E11.8 Active 95095715 Problem Impotence N52.9 Active 336055816 Problem Family history of colon cancer Z80.0 Active 412416685 Problem Diabetic neuropathy, painful E11.40 A ctive 259881220 Problem Arm paresthesia, right R20.2 Active 24701191 Problem Gastroesophageal reflux disease without esophagitis K21.9 Active 676084196 Problem Drug abuse, opioid type F11.10 Active 8475428 Problem COPD exacerbation J44.1 Active 19 7364041 Problem Obstructive sleep apnea syndrome G47.33 Active 18644145 Problem Diverticulitis K57.92 Active 44509 6006 Problem Pain of right upper extremity M79.601 Active 130248376 Problem Respiratory bronchiolitis interstitial lung disease J84.115 Active 684842845 Problem Hypoxia R09.02 Active 572870891 Problem Interstitial lung disease J84.9 Acti ve [id number] ALLERGIES No Information ENCOUNTERS Encounter Location Date Diagnosis [facility] [place] [address] [id number] [place] [address] Aug, [facility] [place] [address] [id number] [place] [address] Aug, Diabetic neuropathy, painful E11.40 ; In terstitial lung disease J84.9 ; Chronic cough R05 ; Type 2 diabetes mellitus with complication E11.8 and FDC current use of insulin Z79.4 [place] [address] [address] Jul, [facility] [place] [address] [address] Jul, [place] [address] [address] Jul, Diabetic neuropathy, painful E11.40 [place] [address] [address] Jul, Type 2 diabetes mellitus with complicati on E11.8 [place] [address] [address] Jun, Diabetic neuropathy, painful E11.40 [place] [address] [address] Jun, [facility] [address] [facility] [id number] [address] [place] [address] Jun, Type 2 diabetes mellitus wit h complication E11.8 ; Other viral agents as the cause of diseases classified elsewhere B97.89 ; Acute upper respiratory infection, unspecified J06.9 ; Acute recurrent maxillary sinusitis J01.01 ; Sore throat J02.9 and Headache R51 [place] [address] [address] Jun, Right lower quadrant abdominal pain R10. 31 and Type 2 diabetes mellitus with complication E11.8 [place] [address] [address] May, Diabetic neuropathy, painful E11.[address] [address] May, COPD exacerbation J44.1 and Type 2 diabe chidi mellitus with complication E11.8 [place] [address] [address] Apr, Diabetic neuropathy, painful E11.40 [place] [address] [address] [place] [id number] [place] [address] Apr, Diabetic neuropathy, painful E11.40 [facility] [place] [address] [address] [place] [id number] [address] [place] [address] Mar, Bronchitis J40 [place] [address] [address] January, Type 2 diabetes mellitus with complicati on E11.8 ; Diabetic neuropathy, painful E11.40 ; Impotence N52.9 ; Coronary atherosclerosis due to lipid rich plaque I25.83 ; FDC current use of insulin Z79.4 ; Interstitial lung disease J84.9 ; Hypoxia R09.02 ; Essential hypertension I10 ; Gastroesophageal reflux disease without esophagitis K21.9 ; Left upper arm pain M79.622 and Cervical spinal stenosis M48.02 [facility] [place] [id number] [place] [address] January, Viral gastroenteritis A08.4 [place] [address] [address] Dec, Diabetic neuropathy, painful E11.40 [place] [id number] [place] [id number] Oct, [address] [address] Oct, Acute right-sided weakness M62.89 and Sl urring of speech R47.81 [place] [address] [address] [place] [id number] [place] [address] Sep, Type 2 diabetes mellitus with complicati on E11.8 ; Diabetic neuropathy, painful E11.40 ; Impotence N52.9 ; Coronary atherosclerosis due to lipid rich plaque I25.83 ; terminologist current use of insulin Z79.4 ; Interstitial lung disease J84.9 ; Hypoxia R09.02 ; Essential hypertension I10 and Gastroesophageal reflux disease without esophagitis K21.9 [facility] [place] [address] [address] [place] [id number] [address] 07 Sep, 2016 Bronchitis J40 [facility] [address] [facility] [id number] [address] [address] Aug, Gastroenteritis and colitis, viral A08.4 [facility] [place] [address] [address] Aug, [facility] [place] [address] [address] Jun, Type 2 diabetes mellitus with complicati on E11.8 ; Diabetic neuropathy, painful E11.40 ; Impotence N52.9 ; Coronary atherosclerosis due to lipid rich plaque I25.83 ; terminologist current use of insulin Z79.4 ; Interstitial lung disease J84.9 ; Hypoxia R09.02 and Essential hypertension I10 [facility] [place] [address] [address] 30 May, 2016 Bronchitis J40 [facility] [place] [address] [address] 29 May, 2016 [facility] [place] [address] [address] 20 May, 2016 Pain of right upper extremity M79.601 [facility] [place] [address] [address] May, [facility] [place] [address] [address] 15 May, 2016 [facility] [place] [address] [address] 07 May, 2016 Right hand pain M79.641 [facility] [place] [address] [address] Apr, [facility] [place] [address] [address] Apr, [facility] [place] [address] [address] Mar, [facility] [place] [address] [address] Mar, Essential hypertension I10 [place] [address] [address] Feb, [place] [address] [address] Feb, Interstitial lung disease J84.9 and Bron chitis J40 [place] [address] [address] Feb, [place] [address] [address] Feb, Type 2 diabetes mellitus with complicati on E11.8 ; Impotence N52.9 ; Coronary atherosclerosis due to lipid rich plaque I25.83 ; terminologist current use of insulin Z79.4 and Diabetic neuropathy, painful E11.40 [place] [address] [address] January, [place] [address] [address] January, Arm paresthesia, right R20.2 and Pain of right upper extremity M79.601 [place] [address] [address] Dec, Lumbar strain S39.012A [place] [address] [address] Nov, Diabetic neuropathy, painful E11.40 ; Re spiratory bronchiolitis interstitial lung disease J84.115 ; Pain of right upper extremity M79.601 and Arm paresthesia, right R20.2 [place] [address] [address] Nov, Diabetic neuropathy, painful E11.40 [place] [address] [address] Sep, Type 2 diabetes mellitus with complicati on E11.8 ; Impotence N52.9 ; Coronary atherosclerosis due to lipid rich plaque I25.83 ; terminologist current use of insulin Z79.4 ; Diabetic neuropathy, painful E11.40 ; Chest pain R07.9 and Restless leg G25.81 [place] [address] [address] Sep, [place] [address] [address] Jul, COPD (chronic obstructive pulmonary dise ase) with acute bronchitis J44.[address] [address] Jun, Abdominal pain R10.9 ; Family history of colon cancer Z80.0 and Diverticulitis K57.[address] [address] Jun, Abdominal pain R10.9 and Diverticulitis K57.[address] [address] Apr, Diabetes with other specified manifestat ions, type II or unspecified type, not stated as uncontrolled 250.80 ; Coronary atherosclerosis of unspecified type of vessel, ambler or graft 414.00 ; Unspecified essential hypertension 401.9 ; Impotence of organic origin 607.84 ; Sleep apnea 780.57 and Interstitial lung disease 515 [place] [address] [address] Dec, [address] [address] Dec, [place] [address] [address] Nov, [place] [address] [address] Nov, [place] [address] [address] Nov, [address] [address] Nov, [address] [address] Nov, 2014 [facility] [place] [facility] [address] [id number] [place] [address] Nov, [facility] [place] [facility] [address] [id number] [place] [address] Nov, 2014 [facility] [place] [facility] [address] [id number] [place] [address] Nov, 2014 [facility] [place] [facility] [address] [id number] [place] [address] Nov, 2014 [facility] [place] [facility] [address] [id number] [place] [address] Nov, 2014 [facility] [place] [facility] [address] [id number] [place] [address] Oct, 2014 [facility] [place] [facility] [address] [id number] [place] [address] Oct, 2014 [facility] [place] [facility] [address] [id number] [place] [address] Oct, 2014 [facility] [place] [facility] [address] [id number] [place] [address] Oct, 2014 [facility] [place] [facility] [address] [id number] [place] [address] Oct, 2014 [facility] [place] [facility] [address] [id number] [place] [address] Oct, 2014 [facility] [place] [facility] [address] [id number] [place] [address] Oct, 2014 [facility] [place] [facility] [address] [id number] [place] [address] Oct, 2014 [facility] [place] [facility] [address] [id number] [place] [address] Oct, 2014 [facility] [place] [facility] [address] [id number] [place] [address] Oct, 2014 [facility] [place] [facility] [address] [id number] [place] [address] Oct, [facility] [place] [facility] [address] [facility] [id number] [place] [address] Jul, 2013 [facility] [place] [facility] [address] [id number] [place] [address] Jul, 2013 [facility] [place] [facility] [address] [id number] [place] [address] Jun, 2013 [facility] [place] [facility] [address] [id number] [place] [address] Jun, 2013 [facility] [place] [facility] [address] [id number] [place] [address] Jun, 2013 [facility] [place] [facility] [address] [id number] [place] [address] Jun, 2013 [facility] [place] [facility] [address] [id number] [place] [address] 15 Jun, 2014 [facility] [place] [facility] [address] [id number] [place] [address] 15 Jun, 2013 [facility] [place] [facility] [address] [id number] [place] [address] 14 Jun, 2014 [facility] [place] [facility] [address] [id number] [place] [address] 14 Jun, 2014 [facility] [place] [facility] [address] [id number] [place] [address] Jun, 2013 [facility] [place] [facility] [address] [id number] [place] [address] Jun, [facility] [place] [facility] [address] [id number] [place] [address] 08 Jun, 2013 [facility] [place] [facility] [address] [id number] [place] [address] 08 Jun, 2014 [facility] [place] [facility] [address] [id number] [place] [address] Jun, 2013 [facility] [place] [facility] [address] [id number] [place] [address] Jun, 2013 [facility] [place] [facility] [address] [id number] [place] [address] May, 2013 [facility] [place] [facility] [address] [id number] [place] [address] 30 May, 2014 [facility] [place] [facility] [address] [facility] [id number] [place] [address] May, 2013 [facility] [place] [facility] [address] [id number] [place] [address] May, 2013 [facility] [place] [facility] [address] [facility] [id number] [place] [address] May, 2013 [facility] [place] [facility] [address] [facility] [id number] [place] [address] May, [facility] [place] [facility] [address] [id number] [place] [address] Apr, [facility] [place] [facility] [address] [id number] [place] [address] Apr, [facility] [place] [facility] [address] [id number] [place] [address] Apr, [facility] [place] [facility] [address] [id number] [place] [address] Apr, [facility] [place] [facility] [address] [id number] [place] [address] Apr, [facility] [place] [facility] [address] [id number] [place] [address] Apr, [facility] [place] [facility] [address] [id number] [place] [address] Apr, [facility] [place] [facility] [address] [id number] [place] [address] Apr, [facility] [place] [facility] [address] [id number] [place] [address] Apr, [facility] [place] [facility] [address] [id number] [place] [address] Apr, [facility] [place] [facility] [address] [id number] [place] [address] Apr, [facility] [place] [facility] [address] [id number] [place] [address] Apr, [facility] [place] [facility] [address] [id number] [place] [address] Mar, [facility] [place] [facility] [address] [facility] [id number] [place] [address] Mar, [facility] [place] [facility] [address] [id number] [place] [address] Mar, [facility] [place] [facility] [address] [facility] [id number] [place] [address] Mar, [facility] [place] [facility] [address] [facility] [id number] [place] [address] Mar, [facility] [place] [facility] [address] [id number] [place] [address] Mar, [facility] [place] [facility] [address] [id number] [place] [address] Mar, [facility] [place] [facility] [address] [id number] [place] [address] Mar, [facility] [place] [facility] [address] [facility] [id number] [place] [address] Mar, [facility] [place] [facility] [address] [id number] [place] [address] Mar, [facility] [place] [facility] [address] [id number] [place] [address] Mar, [facility] [place] [facility] [address] [id number] [place] [address] Feb, [facility] [place] [facility] [address] [facility] [id number] [place] [address] Feb, [facility] [place] [facility] [address] [id number] [place] [address] Feb, [facility] [place] [facility] [address] [id number] [place] [address] Feb, [facility] [place] [facility] [address] [id number] [place] [address] Feb, [facility] [place] [facility] [address] [id number] [place] [address] Feb, [facility] [place] [facility] [address] [id number] [place] [address] Feb, [facility] [place] [facility] [address] [id number] [place] [address] Feb, [facility] [place] [facility] [address] [id number] [place] [address] Feb, [facility] [place] [facility] [address] [facility] [id number] [place] [address] Feb, [facility] [place] [facility] [address] [id number] [place] [address] January, [facility] [place] [facility] [address] [id number] [place] [address] January, [facility] [place] [facility] [address] [id number] [place] [address] January, [facility] [place] [facility] [address] [id number] [place] [address] January, [facility] [place] [facility] [address] [id number] [place] [address] January, [facility] [place] [facility] [address] [id number] [place] [address] January, [facility] [place] [facility] [address] [id number] [place] [address] January, [facility] [place] [facility] [address] [id number] [place] [address] January, [facility] [place] [facility] [address] [id number] [place] [address] January, [facility] [place] [facility] [address] [id number] [place] [address] January, [facility] [place] [facility] [address] [id number] [place] [address] January, [facility] [place] [facility] [address] [id number] [place] [address] January, [facility] [place] [facility] [address] [facility] [id number] [place] [address] January, [facility] [place] [facility] [address] [id number] [place] [address] January, [facility] [place] [facility] [address] [id number] [place] [address] January, [facility] [place] [facility] [address] [id number] [place] [address] January, [facility] [place] [facility] [address] [facility] [id number] [place] [address] Dec, [facility] [place] [facility] [address] [id number] [place] [address] Dec, [facility] [place] [facility] [address] [id number] [place] [address] Dec, [facility] [place] [facility] [address] [id number] [place] [address] Dec, [facility] [place] [facility] [address] [id number] [place] [address] Dec, [facility] [place] [facility] [address] [id number] [place] [address] Dec, [facility] [place] [facility] [address] [id number] [place] [address] Dec, [facility] [place] [facility] [address] [id number] [place] [address] Dec, [facility] [place] [facility] [address] [id number] [place] [address] Dec, [facility] [place] [facility] [address] [id number] [place] [address] Dec, [facility] [place] [facility] [address] [id number] [place] [address] Nov, [facility] [place] [facility] [address] [id number] [place] [address] Nov, [facility] [place] [facility] [address] [id number] [place] [address] 07 Oct, 2013 [facility] [place] [facility] [address] [facility] [id number] [place] [address] Oct, [facility] [place] [facility] [address] [id number] [place] [address] Oct, [facility] [place] [facility] [address] [id number] [place] [address] Sep, [facility] [place] [facility] [address] [id number] [place] [address] Sep, [facility] [place] [facility] [address] [id number] [place] [address] Sep, [facility] [place] [facility] [address] [id number] [place] [address] Sep, [facility] [place] [facility] [address] [id number] [place] [address] Sep, [facility] [place] [facility] [address] [id number] [place] [address] Sep, [facility] [place] [facility] [address] [id number] [place] [address] Sep, [facility] [place] [facility] [address] [id number] [place] [address] Sep, [facility] [place] [facility] [address] [id number] [place] [address] Sep, [facility] [place] [facility] [address] [id number] [place] [address] Sep, [facility] [place] [facility] [address] [id number] [place] [address] Sep, [facility] [place] [facility] [address] [id number] [place] [address] Sep, [facility] [place] [facility] [address] [id number] [place] [address] Aug, [facility] [place] [facility] [address] [id number] [place] [address] Aug, [facility] [place] [facility] [address] [id number] [place] [address] Aug, 2012 [facility] [place] [facility] [address] [id number] [place] [address] Aug, [facility] [place] [facility] [address] [id number] [place] [address] Jul, [facility] [place] [facility] [address] [id number] [place] [address] Jul, [facility] [place] [facility] [address] [id number] [place] [address] Jun, [facility] [place] [facility] [address] [id number] [place] [address] Jun, [facility] [place] [facility] [address] [id number] [place] [address] Jun, [facility] [place] [facility] [address] [id number] [place] [address] Jun, [facility] [place] [facility] [address] [id number] [place] [address] Jun, [facility] [place] [facility] [address] [id number] [place] [address] Jun, [facility] [place] [facility] [address] [id number] [place] [address] Jun, [facility] [place] [facility] [address] [id number] [place] [address] Jun, [facility] [place] [facility] [address] [id number] [place] [address] 24 May, 2012 [facility] [place] [facility] [address] [id number] [place] [address] 23 Sep, 2012 [facility] [place] [facility] [address] [id number] [place] [address] 18 Sep, 2012 [facility] [place] [facility] [address] [id number] [place] [address] 13 Sep, 2012 [facility] [place] [facility] [address] [id number] [place] [address] May, 2012 [facility] [place] [facility] [address] [id number] [place] [address] May, [facility] [place] [facility] [address] [facility] [id number] [place] [address] May, [facility] [place] [facility] [address] [id number] [place] [address] Apr, [facility] [place] [facility] [address] [facility] [id number] [place] [address] Apr, [facility] [place] [facility] [address] [facility] [id number] [place] [address] Apr, [facility] [place] [facility] [address] [facility] [id number] [place] [address] Apr, [facility] [place] [facility] [address] [id number] [place] [address] Apr, [facility] [place] [facility] [address] [id number] [place] [address] Apr, [facility] [place] [facility] [address] [facility] [id number] [place] [address] Apr, [facility] [place] [facility] [address] [id number] [place] [address] Mar, [facility] [place] [facility] [address] [id number] [place] [address] Mar, [facility] [place] [facility] [address] [id number] [place] [address] Mar, [facility] [place] [facility] [address] [facility] [id number] [place] [address] Mar, [facility] [place] [facility] [address] [id number] [place] [address] Mar, [facility] [place] [facility] [address] [facility] [id number] [place] [address] Mar, [facility] [place] [facility] [address] [id number] [place] [address] Mar, [facility] [place] [facility] [address] [id number] [place] [address] Mar, [facility] [place] [facility] [address] [id number] [place] [address] Feb, [facility] [place] [facility] [address] [id number] [place] [address] Feb, [facility] [place] [facility] [address] [id number] [place] [address] Feb, [facility] [place] [facility] [address] [id number] [place] [address] January, [facility] [place] [facility] [address] [id number] [place] [id number] January, [facility] [address] [id number] [place] [address] January, [facility] [address] [id number] [place] [address] January, [facility] [address] [id number] [place] [address] January, [facility] [address] [id number] [place] [address] January, [facility] [address] [id number] [place] [address] January, [facility] [address] [id number] [place] [address] January, [facility] [address] [id number] [place] [address] Dec, [facility] [address] [id number] [place] [address] Dec, [facility] [address] [id number] [place] [address] Dec, [facility] [address] [id number] [place] [address] Dec, [facility] [address] [id number] [place] [address] Dec, [facility] [address] [facility] [id number] [place] [address] 22 Nov, 2012 [facility] [address] [id number] [place] [address] 21 Nov, 2012 [facility] [address] [id number] [place] [address] 19 Nov, 2012 [facility] [address] [id number] [place] [address] 18 Nov, 2012 [facility] [address] [facility] [id number] [place] [address] 18 Nov, 2012 [facility] [address] [id number] [place] [address] 14 Nov, 2012 [facility] [address] [id number] [place] [address] Nov, [facility] [address] [id number] [place] [address] Nov, [facility] [address] [id number] [place] [address] Oct, [facility] [address] [id number] [place] [address] 21 Oct, 2012 [facility] [address] [id number] [place] [address] 12 Oct, 2012 [facility] [address] [id number] [place] [address] 08 Oct, 2012 [facility] [address] [id number] [place] [address] 07 Oct, 2012 [facility] [address] [id number] [place] [address] 07 Oct, 2012 [facility] [address] [id number] [place] [address] 05 Oct, 2012 [facility] [address] [id number] [place] [address] 04 Oct, 2012 [facility] [address] [id number] [place] [address] 04 Oct, 2012 [facility] [address] [id number] [place] [address] Sep, [facility] [address] [id number] [place] [address] Sep, [facility] [address] [id number] [place] [address] Sep, [facility] [address] [id number] [place] [address] Sep, [facility] [address] [id number] [place] [address] Sep, [facility] [address] [id number] [place] [address] Sep, [facility] [address] [id number] [place] [address] Aug, [facility] [address] [id number] [place] [address] Aug, [facility] [address] [id number] [place] [address] Aug, [facility] [address] [id number] [place] [address] Aug, [facility] [address] [id number] [place] [address] Aug, [facility] [address] [id number] [place] [address] Aug, [facility] [address] [id number] [place] [address] Aug, [facility] [address] [id number] [place] [address] Aug, [facility] [address] [id number] [place] [address] Aug, [facility] [address] [id number] [place] [address] Jul, [facility] [place] [id number] [place] [address] Jul, [facility] [place] [address] [address] Jul, [facility] [place] [address] [address] Jul, [facility] [place] [address] [address] Nov, [facility] [place] [address] [address] Sep, [facility] [place] [address] [address] Aug, [facility] [place] [address] [address] Aug, [facility] [place] [address] [address] Aug, [facility] [place] [address] [address] Jul, IMMUNIZATIONS No Known Immunizations SOCIAL HISTORY [...]
--- OUTSIDE RECORDS SUMMARY | 2020-01-01 11:10 | XMS REPORT ---
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10 Active 9350987 Problem COPD exacerbation J44.1 Active 19 8991837 Problem Obstructive sleep apnea syndrome G47.33 Active 97546316 Problem Diverticulitis K57.92 Active 99002 6006 Problem Pain of right upper extremity M79.601 Active 410092864 Problem Respiratory bronchiolitis interstitial lung disease J84.115 Active 933312040 Problem Hypoxia R09.02 Active 641191124 Problem Interstitial lung disease J84.9 Acti ve [id number] ALLERGIES No Information ENCOUNTERS Encounter Location Date Diagnosis [facility] [address] [id number] [place] [address] Aug, [facility] [address] [id number] [place] [address] Aug, Diabetic neuropathy, painful E11.40 ; In terstitial lung disease J84.9 ; Chronic cough R05 ; Type 2 diabetes mellitus with complication E11.8 and [facility] current use of insulin Z79.4 [place] [address] [address] Jul, [facility] [address] [address] Jul, [place] [address] [address] Jul, Diabetic neuropathy, painful E11.40 [place] [address] [address] Jul, Type 2 diabetes mellitus with complicati on E11.8 [place] [address] [address] Jun, Diabetic neuropathy, painful E11.40 [place] [address] [address] Jun, [facility] [address] [facility] [id number] [address] [place] [address] Jun, Type 2 diabetes mellitus wit h complication E11.8 ; Other viral agents as the cause of diseases classified elsewhere B97.89 ; Acute upper respiratory infection, unspecified J06.9 ; Acute recurrent maxillary sinusitis J01.01 ; Sore throat J02.9 and Headache R51 [place] [address] [address] Jun, Right lower quadrant abdominal pain R10. 31 and Type 2 diabetes mellitus with complication E11.8 [place] [address] [address] May, Diabetic neuropathy, painful E11.[address] [address] May, COPD exacerbation J44.1 and Type 2 diabe chidi mellitus with complication E11.8 [place] [address] [address] Apr, Diabetic neuropathy, painful E11.40 [place] [address] [place] [id number] [place] [address] Apr, Diabetic neuropathy, painful E11.40 [facility] [place] [address] [place] [id number] [place] [address] Mar, Bronchitis J40 [place] [address] [address] January, Type 2 diabetes mellitus with complicati [...] Cervical spinal stenosis M48.02 [facility] [place] [id number] [place] [address] January, Viral gastroenteritis A08.4 [place] [address] [address] Dec, Diabetic neuropathy, painful E11.40 [place] [id number] [place] [address] [id number] Oct, [address] [address] Oct, Acute right-sided weakness M62.89 and Sl urring of speech R47.81 [place] [address] [place] [id number] [place] [address] Sep, Type 2 diabetes mellitus with complicati on E11.8 ; Diabetic neuropathy, painful E11.40 ; Impotence N52.9 ; Coronary atherosclerosis due to lipid rich plaque I25.83 ; 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 ; Interstitial lung disease J84.9 ; Hypoxia R09.02 and Essential hypertension I10 [facility] [address] [address] 30 May, 2016 Bronchitis J40 [facility] [address] [address] 29 May, 2016 [facility] [address] [address] 20 May, 2016 Pain of right upper extremity M79.601 [facility] [address] [address] May, [facility] [address] [address] 15 May, 2016 [facility] [address] [address] 07 May, 2016 Right hand pain M79.641 [facility] [address] [address] Apr, [facility] [address] [address] Apr, [facility] [address] [address] Mar, [facility] [address] [address] Mar, Essential hypertension I10 [place] [address] [address] Feb, [place] [address] [address] Feb, Interstitial lung disease J84.9 and Bron chitis J40 [place] [address] [address] Feb, [place] [address] [address] Feb, Type 2 diabetes mellitus with complicati on E11.8 ; Impotence N52.9 ; Coronary atherosclerosis due to lipid rich plaque I25.83 ; 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 and Diabetic neuropathy, painful E11.40 [place] [address] [address] January, [place] [address] [address] January, Arm paresthesia, right R20.2 and Pain of right upper extremity M79.601 [place] [address] [address] Dec, Lumbar strain S39.012A [place] [address] [address] Nov, Diabetic neuropathy, painful E11.40 ; Re spiratory bronchiolitis interstitial lung disease J84.115 ; Pain of right upper extremity M79.601 and Arm paresthesia, right R20.2 [place] [address] [address] Nov, Diabetic neuropathy, painful E11.40 [place] [address] [address] Sep, Type 2 diabetes mellitus with complicati on E11.8 ; Impotence N52.9 ; Coronary atherosclerosis due to lipid rich plaque I25.83 ; 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 ; Diabetic neuropathy, painful E11.40 ; Chest pain R07.9 and Restless leg G25.81 [place] [address] [address] Sep, [place] [address] [address] Jul, COPD (chronic obstructive pulmonary dise ase) with acute bronchitis J44.[address] [address] Jun, Abdominal pain R10.9 ; Family history of colon cancer Z80.0 and Diverticulitis K57.[address] [address] Jun, Abdominal pain R10.9 and Diverticulitis K57.[address] [address] Apr, Diabetes with other specified manifestat ions, type II or unspecified type, not stated as uncontrolled 250.80 ; Coronary atherosclerosis of unspecified type of vessel, [place] or graft 414.00 ; Unspecified essential hypertension 401.9 ; Impotence of organic origin 607.84 ; Sleep apnea 780.57 and Interstitial lung disease 515 [place] [address] [address] Dec, [address] [address] Dec, [place] [address] [address] Nov, [place] [address] [address] Nov, [place] [address] [address] Nov, [address] [address] Nov, [address] [address] Nov, 2014 [facility] [place] [facility] [address] [id number] [place] [address] Nov, [facility] [place] [facility] [address] [id number] [place] [address] Nov, 2014 [facility] [place] [facility] [address] [id number] [place] [address] Nov, 2014 [facility] [place] [facility] [address] [id number] [place] [address] Nov, 2014 [facility] [place] [facility] [address] [id number] [place] [address] Nov, 2014 [facility] [place] [facility] [address] [id number] [place] [address] Oct, 2014 [facility] [place] [facility] [address] [id number] [place] [address] Oct, 2014 [facility] [place] [facility] [address] [id number] [place] [address] Oct, 2014 [facility] [place] [facility] [address] [id number] [place] [address] Oct, 2014 [facility] [place] [facility] [address] [id number] [place] [address] Oct, 2014 [facility] [place] [facility] [address] [id number] [place] [address] Oct, 2014 [facility] [place] [facility] [address] [id number] [place] [address] Oct, 2014 [facility] [place] [facility] [address] [id number] [place] [address] Oct, 2014 [facility] [place] [facility] [address] [id number] [place] [address] Oct, 2014 [facility] [place] [facility] [address] [id number] [place] [address] Oct, 2014 [facility] [place] [facility] [address] [id number] [place] [address] Oct, [facility] [place] [facility] [address] [facility] [id number] [place] [address] Jul, 2013 [facility] [place] [facility] [address] [id number] [place] [address] Jul, 2013 [facility] [place] [facility] [address] [id number] [place] [address] Jun, 2013 [facility] [place] [facility] [address] [id number] [place] [address] Jun, 2013 [facility] [place] [facility] [address] [id number] [place] [address] Jun, 2013 [facility] [place] [facility] [address] [id number] [place] [address] Jun, 2013 [facility] [place] [facility] [address] [id number] [place] [address] 15 Jun, 2014 [facility] [place] [facility] [address] [id number] [place] [address] 15 Jun, 2013 [facility] [place] [facility] [address] [id number] [place] [address] 14 Jun, 2014 [facility] [place] [facility] [address] [id number] [place] [address] 14 Jun, 2014 [facility] [place] [facility] [address] [id number] [place] [address] Jun, 2013 [facility] [place] [facility] [address] [id number] [place] [address] Jun, [facility] [place] [facility] [address] [id number] [place] [address] 08 Jun, 2013 [facility] [place] [facility] [address] [id number] [place] [address] 08 Jun, 2014 [facility] [place] [facility] [address] [id number] [place] [address] Jun, 2013 [facility] [place] [facility] [address] [id number] [place] [address] Jun, 2013 [facility] [place] [facility] [address] [id number] [place] [address] May, 2013 [facility] [place] [facility] [address] [id number] [facility] [place] [address] 30 May, 2014 [facility] [place] [facility] [address] [facility] [id number] [facility] [place] [address] May, 2013 [facility] [place] [facility] [address] [id number] [facility] [place] [address] May, 2013 [facility] [place] [facility] [address] [facility] [id number] [place] [address] May, 2013 [facility] [place] [facility] [address] [facility] [id number] [facility] [place] [address] May, [facility] [place] [facility] [address] [id number] [facility] [place] [address] Apr, [facility] [place] [facility] [address] [id number] [place] [address] Apr, [facility] [place] [facility] [address] [id number] [facility] [place] [address] Apr, [facility] [place] [facility] [address] [id number] [place] [address] Apr, [facility] [place] [facility] [address] [id number] [place] [address] Apr, [facility] [place] [facility] [address] [id number] [place] [address] Apr, [facility] [place] [facility] [address] [id number] [place] [address] Apr, [facility] [place] [facility] [address] [id number] [place] [address] Apr, [facility] [place] [facility] [address] [id number] [place] [address] Apr, [facility] [place] [facility] [address] [id number] [place] [address] Apr, [facility] [place] [facility] [address] [id number] [place] [address] Apr, [facility] [place] [facility] [address] [id number] [facility] [place] [address] Apr, [facility] [place] [facility] [address] [id number] [facility] [place] [address] Mar, [facility] [place] [facility] [address] [facility] [id number] [place] [address] Mar, [facility] [place] [facility] [address] [id number] [place] [address] Mar, [facility] [place] [facility] [address] [facility] [id number] [place] [address] Mar, [facility] [place] [facility] [address] [facility] [id number] [facility] [place] [address] Mar, [facility] [place] [facility] [address] [id number] [place] [address] Mar, [facility] [place] [facility] [address] [id number] [place] [address] Mar, [facility] [place] [facility] [address] [id number] [place] [address] Mar, [facility] [place] [facility] [address] [facility] [id number] [place] [address] Mar, [facility] [place] [facility] [address] [id number] [place] [address] Mar, [facility] [place] [facility] [address] [id number] [place] [address] Mar, [facility] [place] [facility] [address] [id number] [place] [address] Feb, [facility] [place] [facility] [address] [facility] [id number] [place] [address] Feb, [facility] [place] [facility] [address] [id number] [place] [address] Feb, [facility] [place] [facility] [address] [id number] [place] [address] Feb, [facility] [place] [facility] [address] [id number] [place] [address] Feb, [facility] [place] [facility] [address] [id number] [place] [address] Feb, [facility] [place] [facility] [address] [id number] [place] [address] Feb, [facility] [place] [facility] [address] [id number] [place] [address] Feb, [facility] [place] [facility] [address] [id number] [place] [address] Feb, [facility] [place] [facility] [address] [facility] [id number] [place] [address] Feb, [facility] [place] [facility] [address] [id number] [place] [address] January, [facility] [place] [facility] [address] [id number] [place] [address] January, [facility] [place] [facility] [address] [id number] [place] [address] January, [facility] [place] [facility] [address] [id number] [place] [address] January, [facility] [place] [facility] [address] [id number] [place] [address] January, [facility] [place] [facility] [address] [id number] [place] [address] January, [facility] [place] [facility] [address] [id number] [place] [address] January, [facility] [place] [facility] [address] [id number] [place] [address] January, [facility] [place] [facility] [address] [id number] [place] [address] January, [facility] [place] [facility] [address] [id number] [place] [address] January, [facility] [place] [facility] [address] [id number] [place] [address] January, [facility] [place] [facility] [address] [id number] [place] [address] January, [facility] [place] [facility] [address] [facility] [id number] [place] [address] January, [facility] [place] [facility] [address] [id number] [place] [address] January, [facility] [place] [facility] [address] [id number] [place] [address] January, [facility] [place] [facility] [address] [id number] [place] [address] January, [facility] [place] [facility] [address] [facility] [id number] [place] [address] Dec, [facility] [place] [facility] [address] [id number] [place] [address] Dec, [facility] [place] [facility] [address] [id number] [place] [address] Dec, [facility] [place] [facility] [address] [id number] [place] [address] Dec, [facility] [place] [facility] [address] [id number] [place] [address] Dec, [facility] [place] [facility] [address] [id number] [place] [address] Dec, [facility] [place] [facility] [address] [id number] [place] [address] Dec, [facility] [place] [facility] [address] [id number] [place] [address] Dec, [facility] [place] [facility] [address] [id number] [place] [address] Dec, [facility] [place] [facility] [address] [id number] [place] [address] Dec, [facility] [place] [facility] [address] [id number] [place] [address] Nov, [facility] [place] [facility] [address] [id number] [place] [address] Nov, [facility] [place] [facility] [address] [id number] [place] [address] 07 Oct, 2013 [facility] [place] [facility] [address] [facility] [id number] [place] [address] Oct, [facility] [place] [facility] [address] [id number] [place] [address] Oct, [facility] [place] [facility] [address] [id number] [place] [address] Sep, [facility] [place] [facility] [address] [id number] [place] [address] Sep, [facility] [place] [facility] [address] [id number] [place] [address] Sep, [facility] [address] [id number] [place] [address] Sep, [facility] [address] [id number] [place] [address] Sep, [facility] [address] [id number] [place] [address] Sep, [facility] [address] [id number] [place] [address] Sep, [facility] [address] [id number] [place] [address] Sep, [facility] [address] [id number] [place] [address] Sep, [facility] [address] [id number] [place] [address] Sep, [facility] [address] [id number] [place] [address] Sep, [facility] [address] [id number] [place] [address] Sep, [facility] [address] [id number] [place] [address] Aug, [facility] [address] [id number] [place] [address] Aug, [facility] [address] [id number] [place] [address] Aug, 2012 [facility] [address] [id number] [place] [address] Aug, [facility] [address] [id number] [place] [address] Jul, [facility] [address] [id number] [place] [address] Jul, [facility] [address] [id number] [place] [address] Jun, [facility] [address] [id number] [place] [address] Jun, [facility] [address] [id number] [place] [address] Jun, [facility] [address] [id number] [place] [address] Jun, [facility] [address] [id number] [place] [address] Jun, [facility] [address] [id number] [place] [address] Jun, [facility] [address] [id number] [place] [address] Jun, [facility] [address] [id number] [place] [address] Jun, [facility] [address] [id number] [place] [address] 24 May, 2012 [facility] [address] [id number] [place] [address] 23 Sep, 2012 [facility] [address] [id number] [place] [address] 18 Sep, 2012 [facility] [address] [id number] [place] [address] 13 Sep, 2012 [facility] [id number] [facility] [place] [address] May, 2012 [facility] [facility] [address] [id number] [facility] [place] [address] May, [facility] [facility] [address] [facility] [id number] [facility] [place] [address] May, [facility] [place] [facility] [address] [id number] [facility] [place] [address] Apr, [facility] [place] [facility] [address] [facility] [id number] [place] [address] Apr, [facility] [place] [facility] [address] [facility] [id number] [place] [address] Apr, [facility] [place] [facility] [address] [facility] [id number] [place] [address] Apr, [facility] [place] [facility] [address] [id number] [facility] [place] [address] Apr, [facility] [facility] [address] [id number] [facility] [place] [address] Apr, [facility] [facility] [address] [facility] [id number] [facility] [place] [address] Apr, [facility] [place] [facility] [address] [id number] [facility] [place] [address] Mar, [facility] [place] [facility] [address] [id number] [facility] [place] [address] Mar, [facility] [place] [facility] [address] [id number] [facility] [place] [address] Mar, [facility] [facility] [address] [facility] [id number] [facility] [place] [address] Mar, [facility] [place] [facility] [address] [id number] [facility] [place] [address] Mar, [facility] [facility] [address] [facility] [id number] [facility] [place] [address] Mar, [facility] [facility] [address] [id number] [facility] [place] [address] Mar, [facility] [facility] [address] [id number] [place] [address] Mar, [facility] [facility] [address] [id number] [place] [address] Feb, [facility] [facility] [address] [id number] [place] [address] Feb, [facility] [facility] [address] [id number] [place] [address] Feb, [facility] [facility] [address] [id number] [place] [address] January, [facility] [facility] [address] [id number] [place] [address] January, [facility] [facility] [address] [id number] [place] [address] January, [facility] [facility] [address] [id number] [place] [address] January, [facility] [facility] [address] [id number] [place] [address] January, [facility] [facility] [address] [id number] [place] [address] January, [facility] [facility] [address] [id number] [place] [address] January, [facility] [facility] [address] [id number] [place] [address] January, [facility] [facility] [address] [id number] [place] [address] Dec, [facility] [facility] [address] [id number] [place] [address] Dec, [facility] [address] [id number] [place] [address] Dec, [facility] [facility] [address] [id number] [place] [address] Dec, [facility] [facility] [address] [id number] [place] [address] Dec, [facility] [address] [facility] [id number] [place] [address] 22 Nov, 2012 [facility] [address] [id number] [place] [address] 21 Nov, 2012 [facility] [facility] [address] [id number] [place] [address] 19 Nov, 2012 [facility] [facility] [address] [id number] [place] [address] 18 Nov, 2012 [facility] [address] [facility] [id number] [place] [address] 18 Nov, 2012 [facility] [address] [id number] [place] [address] 14 Nov, 2012 [facility] [facility] [address] [id number] [place] [address] Nov, [facility] [facility] [address] [id number] [place] [address] Nov, [facility] [facility] [address] [id number] [place] [address] Oct, [facility] [facility] [address] [id number] [place] [address] 21 Oct, 2012 [facility] [facility] [address] [id number] [place] [address] 12 Oct, 2012 [facility] [facility] [address] [id number] [place] [address] 08 Oct, 2012 [facility] [facility] [address] [id number] [place] [address] 07 Oct, 2012 [facility] [facility] [address] [id number] [place] [address] 07 Oct, 2012 [facility] [facility] [address] [id number] [place] [address] 05 Oct, 2012 [facility] [facility] [address] [id number] [place] [address] 04 Oct, 2012 [facility] [facility] [address] [id number] [place] [address] 04 Oct, 2012 [facility] [address] [id number] [place] [address] Sep, [facility] [address] [id number] [place] [address] Sep, [facility] [facility] [address] [id number] [place] [address] Sep, [facility] [facility] [address] [id number] [place] [address] Sep, [facility] [address] [id number] [place] [address] Sep, [facility] [facility] [address] [id number] [place] [address] Sep, [facility] [facility] [address] [id number] [place] [address] Aug, [facility] [facility] [address] [id number] [place] [address] Aug, [facility] [facility] [address] [id number] [place] [address] Aug, [facility] [facility] [address] [id number] [place] [address] Aug, [facility] [facility] [address] [id number] [place] [address] Aug, [facility] [facility] [address] [id number] [place] [address] Aug, [facility] [facility] [address] [id number] [place] [address] Aug, [facility] [facility] [address] [id number] [place] [address] Aug, [facility] [facility] [address] [id number] [place] [address] Aug, [facility] [address] [id number] [place] [address] Jul, [facility] [id number] [place] [address] Jul, [facility] [address] [address] Jul, [facility] [address] [address] Jul, [facility] [address] [address] Nov, [facility] [address] [address] Sep, [facility] [address] [address] Aug, [facility] [address] [address] Aug, [facility] [address] [address] Aug, [facility] [address] [address] Jul, IMMUNIZATIONS No Known Immunizations SOCIAL HISTORY [...]
--- OUTSIDE RECORDS SUMMARY | 2020-01-01 11:10 | XMS REPORT ---
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10 Active 6976769 Problem COPD exacerbation J44.1 Active 19 6932035 Problem Obstructive sleep apnea syndrome G47.33 Active 17641104 Problem Diverticulitis K57.92 Active 43964 6006 Problem Pain of right upper extremity M79.601 Active 992916720 Problem Respiratory bronchiolitis interstitial lung disease J84.115 Active 613558638 Problem Hypoxia R09.02 Active 466218928 Problem Interstitial lung disease J84.9 Acti ve [id number] ALLERGIES No Information ENCOUNTERS Encounter Location Date Diagnosis [facility] [address] [id number] [place] [address] Aug, [facility] [address] [id number] [place] [address] Aug, Diabetic neuropathy, painful E11.40 ; In terstitial lung disease J84.9 ; Chronic cough R05 ; Type 2 diabetes mellitus with complication E11.8 and halfway current use of insulin Z79.4 [place] [address] [address] Jul, [facility] [address] [address] Jul, [place] [address] [address] Jul, Diabetic neuropathy, painful E11.40 [place] [address] [address] Jul, Type 2 diabetes mellitus with complicati on E11.8 [place] [address] [address] Jun, Diabetic neuropathy, painful E11.40 [place] [address] [address] Jun, [facility] [address] [facility] [id number] [address] [place] [address] Jun, Type 2 diabetes mellitus wit h complication E11.8 ; Other viral agents as the cause of diseases classified elsewhere B97.89 ; Acute upper respiratory infection, unspecified J06.9 ; Acute recurrent maxillary sinusitis J01.01 ; Sore throat J02.9 and Headache R51 [place] [address] [address] Jun, Right lower quadrant abdominal pain R10. 31 and Type 2 diabetes mellitus with complication E11.8 [place] [address] [address] May, Diabetic neuropathy, painful E11.[address] [address] May, COPD exacerbation J44.1 and Type 2 diabe chidi mellitus with complication E11.8 [place] [address] [address] Apr, Diabetic neuropathy, painful E11.40 [place] [address] [place] [id number] [place] [address] Apr, Diabetic neuropathy, painful E11.40 [facility] [place] [address] [address] [place] [id number] [address] [place] [address] Mar, Bronchitis J40 [place] [address] [address] January, Type 2 diabetes mellitus with complicati on E11.8 ; Diabetic neuropathy, painful E11.40 ; Impotence N52.9 ; Coronary atherosclerosis due to lipid rich plaque I25.83 ; halfway current use of insulin Z79.4 ; Interstitial lung disease J84.9 ; Hypoxia R09.02 ; Essential hypertension I10 ; Gastroesophageal reflux disease without esophagitis K21.9 ; Left upper arm pain M79.622 and Cervical spinal stenosis M48.02 [facility] [place] [id number] [place] [address] January, Viral gastroenteritis A08.4 [place] [address] [address] Dec, Diabetic neuropathy, painful E11.40 [place] [id number] [place] [address] [id number] Oct, [address] [address] Oct, Acute right-sided weakness M62.89 and Sl urring of speech R47.81 [place] [address] [place] [id number] [place] [address] Sep, Type 2 diabetes mellitus with complicati on E11.8 ; Diabetic neuropathy, painful E11.40 ; Impotence N52.9 ; Coronary atherosclerosis due to lipid rich plaque I25.83 ; 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 ; Interstitial lung disease J84.9 ; Hypoxia R09.02 ; Essential hypertension I10 and Gastroesophageal reflux disease without esophagitis K21.9 [facility] [place] [address] [address] [place] [id number] [address] 07 Sep, 2016 Bronchitis J40 [facility] [address] [facility] [id number] [place] [address] Aug, Gastroenteritis and colitis, viral A08.4 [facility] [address] [address] Aug, [facility] [address] [address] Jun, Type 2 diabetes mellitus with complicati on E11.8 ; Diabetic neuropathy, painful E11.40 ; Impotence N52.9 ; Coronary atherosclerosis due to lipid rich plaque I25.83 ; 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 ; Interstitial lung disease J84.9 ; Hypoxia R09.02 and Essential hypertension I10 [facility] [address] [address] 30 May, 2016 Bronchitis J40 [facility] [address] [address] 29 May, 2016 [facility] [address] [address] 20 May, 2016 Pain of right upper extremity M79.601 [facility] [address] [address] May, [facility] [address] [address] 15 May, 2016 [facility] [address] [address] 07 May, 2016 Right hand pain M79.641 [facility] [address] [address] Apr, [facility] [address] [address] Apr, [facility] [address] [address] Mar, [facility] [address] [address] Mar, Essential hypertension I10 [place] [address] [address] Feb, [place] [address] [address] Feb, Interstitial lung disease J84.9 and Bron chitis J40 [place] [address] [address] Feb, [place] [address] [address] Feb, Type 2 diabetes mellitus with complicati on E11.8 ; Impotence N52.9 ; Coronary atherosclerosis due to lipid rich plaque I25.83 ; 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 and Diabetic neuropathy, painful E11.40 [place] [address] [address] January, [place] [address] [address] January, Arm paresthesia, right R20.2 and Pain of right upper extremity M79.601 [place] [address] [address] Dec, Lumbar strain S39.012A [place] [address] [address] Nov, Diabetic neuropathy, painful E11.40 ; Re spiratory bronchiolitis interstitial lung disease J84.115 ; Pain of right upper extremity M79.601 and Arm paresthesia, right R20.2 [place] [address] [address] Nov, Diabetic neuropathy, painful E11.40 [place] [address] [address] Sep, Type 2 diabetes mellitus with complicati on E11.8 ; Impotence N52.9 ; Coronary atherosclerosis due to lipid rich plaque I25.83 ; 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 ; Diabetic neuropathy, painful E11.40 ; Chest pain R07.9 and Restless leg G25.81 [place] [address] [address] Sep, [place] [address] [address] Jul, COPD (chronic obstructive pulmonary dise ase) with acute bronchitis J44.[address] [address] Jun, Abdominal pain R10.9 ; Family history of colon cancer Z80.0 and Diverticulitis K57.[address] [address] Jun, Abdominal pain R10.9 and Diverticulitis K57.[address] [address] Apr, Diabetes with other specified manifestat ions, type II or unspecified type, not stated as uncontrolled 250.80 ; Coronary atherosclerosis of unspecified type of vessel, [place] or graft 414.00 ; Unspecified essential hypertension 401.9 ; Impotence of organic origin 607.84 ; Sleep apnea 780.57 and Interstitial lung disease 515 [place] [address] [address] Dec, [address] [address] Dec, [place] [address] [address] Nov, [place] [address] [address] Nov, [place] [address] [address] Nov, [address] [address] Nov, [address] [address] Nov, 2014 [facility] [place] [facility] [address] [id number] [place] [address] Nov, [facility] [place] [facility] [address] [id number] [place] [address] Nov, 2014 [facility] [place] [facility] [address] [id number] [place] [address] Nov, 2014 [facility] [place] [facility] [address] [id number] [place] [address] Nov, 2014 [facility] [place] [facility] [address] [id number] [place] [address] Nov, 2014 [facility] [place] [facility] [address] [id number] [place] [address] Oct, 2014 [facility] [place] [facility] [address] [id number] [place] [address] Oct, 2014 [facility] [place] [facility] [address] [id number] [place] [address] Oct, 2014 [facility] [place] [facility] [address] [id number] [place] [address] Oct, 2014 [facility] [place] [facility] [address] [id number] [place] [address] Oct, 2014 [facility] [place] [facility] [address] [id number] [place] [address] Oct, 2014 [facility] [place] [facility] [address] [id number] [place] [address] Oct, 2014 [facility] [place] [facility] [address] [id number] [place] [address] Oct, 2014 [facility] [place] [facility] [address] [id number] [place] [address] Oct, 2014 [facility] [place] [facility] [address] [id number] [place] [address] Oct, 2014 [facility] [place] [facility] [address] [id number] [place] [address] Oct, [facility] [place] [facility] [address] [facility] [id number] [place] [address] Jul, 2013 [facility] [place] [facility] [address] [id number] [place] [address] Jul, 2013 [facility] [place] [facility] [address] [id number] [place] [address] Jun, 2013 [facility] [place] [facility] [address] [id number] [place] [address] Jun, 2013 [facility] [place] [facility] [address] [id number] [place] [address] Jun, 2013 [facility] [place] [facility] [address] [id number] [place] [address] Jun, 2013 [facility] [place] [facility] [address] [id number] [place] [address] 15 Jun, 2014 [facility] [place] [facility] [address] [id number] [place] [address] 15 Jun, 2013 [facility] [place] [facility] [address] [id number] [place] [address] 14 Jun, 2014 [facility] [place] [facility] [address] [id number] [place] [address] 14 Jun, 2014 [facility] [place] [facility] [address] [id number] [place] [address] Jun, 2013 [facility] [place] [facility] [address] [id number] [place] [address] Jun, [facility] [place] [facility] [address] [id number] [place] [address] 08 Jun, 2013 [facility] [place] [facility] [address] [id number] [place] [address] 08 Jun, 2014 [facility] [place] [facility] [address] [id number] [place] [address] Jun, 2013 [facility] [place] [facility] [address] [id number] [place] [address] Jun, 2013 [facility] [place] [facility] [address] [id number] [place] [address] May, 2013 [facility] [place] [facility] [address] [id number] [facility] [place] [address] 30 May, 2014 [facility] [place] [facility] [address] [facility] [id number] [facility] [place] [address] May, 2013 [facility] [place] [facility] [address] [id number] [facility] [place] [address] May, 2013 [facility] [place] [facility] [address] [facility] [id number] [place] [address] May, 2013 [facility] [place] [facility] [address] [facility] [id number] [facility] [place] [address] May, [facility] [place] [facility] [address] [id number] [facility] [address] Apr, [facility] [place] [facility] [address] [id number] [place] [address] Apr, [facility] [place] [facility] [address] [id number] [facility] [place] [address] Apr, [facility] [place] [facility] [address] [id number] [place] [address] Apr, [facility] [place] [facility] [address] [id number] [place] [address] Apr, [facility] [place] [facility] [address] [id number] [place] [address] Apr, [facility] [place] [facility] [address] [id number] [place] [address] Apr, [facility] [place] [facility] [address] [id number] [place] [address] Apr, [facility] [place] [facility] [address] [id number] [place] [address] Apr, [facility] [place] [facility] [address] [id number] [place] [address] Apr, [facility] [place] [facility] [address] [id number] [place] [address] Apr, [facility] [place] [facility] [address] [id number] [facility] [address] Apr, [facility] [place] [facility] [address] [id number] [facility] [address] Mar, [facility] [place] [facility] [address] [facility] [id number] [place] [address] Mar, [facility] [place] [facility] [address] [id number] [place] [address] Mar, [facility] [place] [facility] [address] [facility] [id number] [place] [address] Mar, [facility] [place] [facility] [address] [facility] [id number] [facility] [place] [address] Mar, [facility] [place] [facility] [address] [id number] [place] [address] Mar, [facility] [place] [facility] [address] [id number] [place] [address] Mar, [facility] [place] [facility] [address] [id number] [place] [address] Mar, [facility] [place] [facility] [address] [facility] [id number] [place] [address] Mar, [facility] [place] [facility] [address] [id number] [place] [address] Mar, [facility] [place] [facility] [address] [id number] [place] [address] Mar, [facility] [place] [facility] [address] [id number] [place] [address] Feb, [facility] [place] [facility] [address] [facility] [id number] [place] [address] Feb, [facility] [place] [facility] [address] [id number] [place] [address] Feb, [facility] [place] [facility] [address] [id number] [place] [address] Feb, [facility] [place] [facility] [address] [id number] [place] [address] Feb, [facility] [place] [facility] [address] [id number] [place] [address] Feb, [facility] [place] [facility] [address] [id number] [place] [address] Feb, [facility] [place] [facility] [address] [id number] [place] [address] Feb, [facility] [place] [facility] [address] [id number] [place] [address] Feb, [facility] [place] [facility] [address] [facility] [id number] [place] [address] Feb, [facility] [place] [facility] [address] [id number] [place] [address] January, [facility] [place] [facility] [address] [id number] [place] [address] January, [facility] [place] [facility] [address] [id number] [place] [address] January, [facility] [place] [facility] [address] [id number] [place] [address] January, [facility] [place] [facility] [address] [id number] [place] [address] January, [facility] [place] [facility] [address] [id number] [place] [address] January, [facility] [place] [facility] [address] [id number] [place] [address] January, [facility] [place] [facility] [address] [id number] [place] [address] January, [facility] [place] [facility] [address] [id number] [place] [address] January, [facility] [place] [facility] [address] [id number] [place] [address] January, [facility] [place] [facility] [address] [id number] [place] [address] January, [facility] [place] [facility] [address] [id number] [place] [address] January, [facility] [place] [facility] [address] [facility] [id number] [place] [address] January, [facility] [place] [facility] [address] [id number] [place] [address] January, [facility] [place] [facility] [address] [id number] [place] [address] January, [facility] [place] [facility] [address] [id number] [place] [address] January, [facility] [place] [facility] [address] [facility] [id number] [place] [address] Dec, [facility] [place] [facility] [address] [id number] [place] [address] Dec, [facility] [place] [facility] [address] [id number] [place] [address] Dec, [facility] [place] [facility] [address] [id number] [place] [address] Dec, [facility] [place] [facility] [address] [id number] [place] [address] Dec, [facility] [place] [facility] [address] [id number] [place] [address] Dec, [facility] [place] [facility] [address] [id number] [place] [address] Dec, [facility] [place] [facility] [address] [id number] [place] [address] Dec, [facility] [place] [facility] [address] [id number] [place] [address] Dec, [facility] [place] [facility] [address] [id number] [place] [address] Dec, [facility] [place] [facility] [address] [id number] [place] [address] Nov, [facility] [place] [facility] [address] [id number] [place] [address] Nov, [facility] [place] [facility] [address] [id number] [place] [address] 07 Oct, 2013 [facility] [place] [facility] [address] [facility] [id number] [place] [address] Oct, [facility] [place] [facility] [address] [id number] [place] [address] Oct, [facility] [place] [facility] [address] [id number] [place] [address] Sep, [facility] [place] [facility] [address] [id number] [place] [address] Sep, [facility] [place] [facility] [address] [id number] [place] [address] Sep, [facility] [place] [facility] [address] [id number] [place] [address] Sep, [facility] [place] [facility] [address] [id number] [place] [address] Sep, [facility] [address] [id number] [place] [address] Sep, [facility] [address] [id number] [place] [address] Sep, [facility] [address] [id number] [place] [address] Sep, [facility] [address] [id number] [place] [address] Sep, [facility] [address] [id number] [place] [address] Sep, [facility] [address] [id number] [place] [address] Sep, [facility] [address] [id number] [place] [address] Sep, [facility] [address] [id number] [place] [address] Aug, [facility] [address] [id number] [place] [address] Aug, [facility] [address] [id number] [place] [address] Aug, 2012 [facility] [address] [id number] [place] [address] Aug, [facility] [address] [id number] [place] [address] Jul, [facility] [address] [id number] [place] [address] Jul, [facility] [address] [id number] [place] [address] Jun, [facility] [address] [id number] [place] [address] Jun, [facility] [address] [id number] [place] [address] Jun, [facility] [address] [id number] [place] [address] Jun, [facility] [address] [id number] [place] [address] Jun, [facility] [address] [id number] [place] [address] Jun, [facility] [address] [id number] [place] [address] Jun, [facility] [address] [id number] [place] [address] Jun, [facility] [address] [id number] [place] [address] 24 May, 2012 [facility] [address] [id number] [place] [address] 23 Sep, 2012 [facility] [address] [id number] [place] [address] 18 Sep, 2012 [facility] [address] [id number] [place] [address] 13 Sep, 2012 [facility] [address] [id number] [facility] [place] [address] May, 2012 [facility] [address] [id number] [facility], [place] [address] May, [facility] [place] [facility] [address] [facility] [id number] [facility] [place] [address] May, [facility] [place] [facility] [address] [id number] [facility] [place] [address] Apr, [facility] [place] [facility] [address] [facility] [id number] [place] [address] Apr, [facility] [place] [facility] [address] [facility] [id number] [place] [address] Apr, [facility] [place] [facility] [address] [facility] [id number] [place] [address] Apr, [facility] [place] [facility] [address] [id number] [facility] [place] [address] Apr, [facility] [place] [facility] [address] [id number] [facility] [place] [address] Apr, [facility] [place] [facility] [address] [facility] [id number] [facility] [place] [address] Apr, [facility] [place] [facility] [address] [id number] [facility] [place] [address] Mar, [facility] [place] [facility] [address] [id number] [facility] [place] [address] Mar, [facility] [place] [facility] [address] [id number] [facility] [place] [address] Mar, [facility] [place] [facility] [address] [facility] [id number] [facility] [place] [address] Mar, [facility] [place] [facility] [address] [id number] [facility] [place] [address] Mar, [facility] [place] [facility] [address] [facility] [id number] [facility] [place] [address] Mar, [facility] [place] [facility] [address] [id number] [facility] [place] [address] Mar, [facility] [place] [facility] [address] [id number] [place] [address] Mar, [facility] [place] [facility] [address] [id number] [place] [address] Feb, [facility] [place] [facility] [address] [id number] [place] [address] Feb, [facility] [place] [facility] [address] [id number] [place] [address] Feb, [facility] [place] [facility] [address] [id number] [place] [address] January, [facility] [place] [facility] [address] [id number] [place] [address] January, [facility] [place] [facility] [address] [id number] [place] [address] January, [facility] [place] [facility] [address] [id number] [place] [address] January, [facility] [place] [facility] [address] [id number] [place] [address] January, [facility] [place] [facility] [address] [id number] [place] [address] January, [facility] [place] [facility] [address] [id number] [place] [address] January, [facility] [place] [facility] [address] [id number] [place] [address] January, [facility] [place] [facility] [address] [id number] [place] [address] Dec, [facility] [place] [facility] [address] [id number] [place] [address] Dec, [facility] [place] [facility] [address] [id number] [place] [address] Dec, [facility] [place] [facility] [address] [id number] [place] [address] Dec, [facility] [place] [facility] [address] [id number] [place] [address] Dec, [facility] [address] [facility] [id number] [place] [address] 22 Nov, 2012 [facility] [place] [facility] [address] [id number] [place] [address] 21 Nov, 2012 [facility] [place] [facility] [address] [id number] [place] [address] 19 Nov, 2012 [facility] [place] [facility] [address] [id number] [place] [address] 18 Nov, 2012 [facility] [place] [facility] [address] [facility] [id number] [place] [address] 18 Nov, 2012 [facility] [place] [facility] [address] [id number] [place] [address] 14 Nov, 2012 [facility] [place] [facility] [address] [id number] [place] [address] Nov, [facility] [place] [facility] [address] [id number] [place] [address] Nov, [facility] [place] [facility] [address] [id number] [place] [address] Oct, [facility] [place] [facility] [address] [id number] [place] [address] 21 Oct, 2012 [facility] [place] [facility] [address] [id number] [place] [address] 12 Oct, 2012 [facility] [place] [facility] [address] [id number] [place] [address] 08 Oct, 2012 [facility] [place] [facility] [address] [id number] [place] [address] 07 Oct, 2012 [facility] [place] [facility] [address] [id number] [place] [address] 07 Oct, 2012 [facility] [place] [facility] [address] [id number] [place] [address] 05 Oct, 2012 [facility] [place] [facility] [address] [id number] [place] [address] 04 Oct, 2012 [facility] [place] [facility] [address] [id number] [place] [address] 04 Oct, 2012 [facility] [place] [facility] [address] [id number] [place] [address] Sep, [facility] [place] [facility] [address] [id number] [place] [address] Sep, [facility] [place] [facility] [address] [id number] [place] [address] Sep, [facility] [place] [facility] [address] [id number] [place] [address] Sep, [facility] [place] [facility] [address] [id number] [place] [address] Sep, [facility] [place] [facility] [address] [id number] [place] [address] Sep, [facility] [place] [facility] [address] [id number] [place] [address] Aug, [facility] [place] [facility] [address] [id number] [place] [address] Aug, [facility] [place] [facility] [address] [id number] [place] [address] Aug, [facility] [place] [facility] [address] [id number] [place] [address] Aug, [facility] [place] [facility] [address] [id number] [place] [address] Aug, [facility] [place] [facility] [address] [id number] [place] [address] Aug, [facility] [place] [facility] [address] [id number] [place] [address] Aug, [facility] [place] [facility] [address] [id number] [place] [address] Aug, [facility] [place] [facility] [address] [id number] [place] [address] Aug, [facility] [place] [facility] [address] [id number] [place] [address] Jul, [facility] [id number] [place] [address] Jul, [facility] [address] [address] Jul, [facility] [id number] [place] [address] Jul, [facility] [address] [address] Nov, [facility] [address] [address] Sep, [facility] [address] [address] Aug, [facility] [address] [address] Aug, [facility] [address] [address] Aug, [facility] [id number] [place] [address] Jul, IMMUNIZATIONS No Known Immunizations SOCIAL HISTORY Never Assessed REASON FOR VISIT PLAN OF CARE VITAL SIGNS Height 74 in 2014-03-12 Weight 249.31 lbs 2014-03-12 Temperature 97.4 degrees Fahrenheit 2014-03-12 Heart Rate 88 bpm 2014-03-12 Respiratory Rate 20 2014-03-12 Blood pressure systolic 140 mmHg 2014-03-12 Blood pressure diastolic 92 mmHg 2014-03-12 MEDICATIONS Unknown Medications RESULTS No Results PROCEDURES Procedure Date Ordered Result Body Site PSYCH DIAGNOSTIC EVALUATION March 12, 2014 INSTRUCTIONS MEDICATIONS ADMINISTERED No Known [...] Xanax 07/2012 Hospitalization History Hypostension-medication side effect-[facility] 03/13/16
--- OUTSIDE RECORDS SUMMARY | 2020-01-01 11:10 | XMS REPORT ---
Author Author Miguel CHAPPELL Organization 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 Active 612642390 Problem Abdominal pain R10.9 Active 68793 001 Problem Change in bowel habit R19.4 Active 89187074 Problem Coronary atherosclerosis due to lipid rich plaque I25.83 Active 90891043 Problem Type 2 diabetes mellitus with complication E11.8 Active 28913719 Problem Impotence N52.9 Active 212358541 Problem Family history of colon cancer Z80.0 Active 613176689 Problem Diabetic neuropathy, painful E11.40 A ctive 948496789 Problem Arm paresthesia, right R20.2 Active 43467706 Problem Gastroesophageal reflux disease without esophagitis K21.9 Active 187854195 Problem Drug abuse, opioid type F11.10 Active 8020910 Problem COPD exacerbation J44.1 Active 19 7400096 Problem Obstructive sleep apnea syndrome G47.33 Active 73119899 Problem Diverticulitis K57.92 Active 80924 6006 Problem Pain of right upper extremity M79.601 Active 910248730 Problem Respiratory bronchiolitis interstitial lung disease J84.115 Active 001503142 Problem Hypoxia R09.02 Active 981357391 Problem Interstitial lung disease J84.9 Acti ve [id number] ALLERGIES No Information ENCOUNTERS Encounter Location Date Diagnosis [facility] [address] [id number] [place] [address] Aug, [facility] [address] [id number] [place] [address] Aug, Diabetic neuropathy, painful E11.40 ; In terstitial lung disease J84.9 ; Chronic cough R05 ; Type 2 diabetes mellitus with complication E11.8 and correction current use of insulin Z79.4 [place] [address] [address] Jul, [facility] [address] [address] Jul, [place] [address] [address] Jul, Diabetic neuropathy, painful E11.40 [place] [address] [address] Jul, Type 2 diabetes mellitus with complicati on E11.8 [place] [address] [address] Jun, Diabetic neuropathy, painful E11.40 [place] [address] [address] Jun, [facility] [address] [facility] [id number] [address] [place] [address] Jun, Type 2 diabetes mellitus wit h complication E11.8 ; Other viral agents as the cause of diseases classified elsewhere B97.89 ; Acute upper respiratory infection, unspecified J06.9 ; Acute recurrent maxillary sinusitis J01.01 ; Sore throat J02.9 and Headache R51 [place] [address] [address] Jun, Right lower quadrant abdominal pain R10. 31 and Type 2 diabetes mellitus with complication E11.8 [place] [address] [address] May, Diabetic neuropathy, painful E11.[address] [address] May, COPD exacerbation J44.1 and Type 2 diabe chidi mellitus with complication E11.8 [place] [address] [address] Apr, Diabetic neuropathy, painful E11.40 [place] [address] [place] [id number] [place] [address] Apr, Diabetic neuropathy, painful E11.40 [facility] [place] [address] [address] [place] [id number] [address] [place] [address] Mar, Bronchitis J40 [place] [address] [address] January, Type 2 diabetes mellitus with complicati [...] M79.622 and Cervical spinal stenosis M48.02 [facility] [place] [id number] [place] [address] January, Viral gastroenteritis A08.4 [place] [address] [address] Dec, Diabetic neuropathy, painful E11.40 [place] [id number] [place] [id number] Oct, [address] [address] Oct, Acute right-sided weakness M62.89 and Sl urring of speech R47.81 [place] [address] [address] [place] [id number] [place] [address] Sep, Type 2 diabetes mellitus with complicati on E11.8 ; Diabetic neuropathy, painful E11.40 ; Impotence N52.9 ; Coronary atherosclerosis due to lipid rich plaque I25.83 ; 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 [address] [address] Aug, 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 [address] [address] 30 May, [address] [facility] [address] [address] 29 May, 2016 [facility] [address] [address] 20 May, 2016 Pain of right upper extremity M79.601 [facility] [address] [address] May, [facility] [address] [address] 15 May, 2016 [facility] [address] [address] 07 May, 2016 Right hand pain M79.641 [facility] [address] [address] Apr, [facility] [address] [address] Apr, [facility] [address] [address] Mar, 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 and Diabetic neuropathy, painful E11.40 [place] [address] [address] January, [place] [address] [address] January, Arm paresthesia, right R20.2 and Pain of right upper extremity M79.601 [place] [address] [address] Dec, Lumbar strain S39.012A [place] [address] [address] Nov, Diabetic neuropathy, painful E11.40 ; Re spiratory bronchiolitis interstitial lung disease J84.115 ; Pain of right upper extremity M79.601 and Arm paresthesia, right R20.2 [place] [address] [address] Nov, Diabetic neuropathy, painful E11.40 [place] [address] [address] Sep, Type 2 diabetes mellitus with complicati on E11.8 ; Impotence N52.9 ; Coronary atherosclerosis due to lipid rich plaque I25.83 ; 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 ; Diabetic neuropathy, painful E11.40 ; Chest pain R07.9 and Restless leg G25.81 [place] [address] [address] Sep, [place] [address] [address] Jul, COPD (chronic obstructive pulmonary dise ase) with acute bronchitis J44.[address] [address] Jun, Abdominal pain R10.9 ; Family history of colon cancer Z80.0 and Diverticulitis K57.[address] [address] Jun, Abdominal pain R10.9 and Diverticulitis K57.[address] [address] Apr, Diabetes with other specified manifestat ions, type II or unspecified type, not stated as uncontrolled 250.80 ; Coronary atherosclerosis of unspecified type of vessel, [place] or graft 414.00 ; Unspecified essential hypertension 401.9 ; Impotence of organic origin 607.84 ; Sleep apnea 780.57 and Interstitial lung disease 515 [place] [address] [address] Dec, [address] [address] Dec, [place] [address] [address] Nov, [place] [address] [address] Nov, [place] [address] [address] Nov, [address] [address] Nov, [address] [address] Nov, 2014 [facility] [place] [facility] [address] [id number] [place] [address] Nov, [facility] [place] [facility] [address] [id number] [place] [address] Nov, 2014 [facility] [place] [facility] [address] [id number] [place] [address] Nov, 2014 [facility] [place] [facility] [address] [id number] [place] [address] Nov, 2014 [facility] [place] [facility] [address] [id number] [place] [address] Nov, 2014 [facility] [place] [facility] [address] [id number] [place] [address] Oct, 2014 [facility] [place] [facility] [address] [id number] [place] [address] Oct, 2014 [facility] [place] [facility] [address] [id number] [place] [address] Oct, 2014 [facility] [place] [facility] [address] [id number] [place] [address] Oct, 2014 [facility] [place] [facility] [address] [id number] [place] [address] Oct, 2014 [facility] [place] [facility] [address] [id number] [place] [address] Oct, 2014 [facility] [place] [facility] [address] [id number] [place] [address] Oct, 2014 [facility] [place] [facility] [address] [id number] [place] [address] Oct, 2014 [facility] [place] [facility] [address] [id number] [place] [address] Oct, 2014 [facility] [place] [facility] [address] [id number] [place] [address] Oct, 2014 [facility] [place] [facility] [address] [id number] [place] [address] Oct, [facility] [place] [facility] [address] [facility] [id number] [place] [address] Jul, 2013 [facility] [place] [facility] [address] [id number] [place] [address] Jul, 2013 [facility] [place] [facility] [address] [id number] [place] [address] Jun, 2013 [facility] [place] [facility] [address] [id number] [place] [address] Jun, 2013 [facility] [place] [facility] [address] [id number] [place] [address] Jun, 2013 [facility] [place] [facility] [address] [id number] [place] [address] Jun, 2013 [facility] [place] [facility] [address] [id number] [place] [address] 15 Jun, 2014 [facility] [place] [facility] [address] [id number] [place] [address] 15 Jun, 2013 [facility] [place] [facility] [address] [id number] [place] [address] 14 Jun, 2014 [facility] [place] [facility] [address] [id number] [place] [address] 14 Jun, 2014 [facility] [place] [facility] [address] [id number] [place] [address] Jun, 2013 [facility] [place] [facility] [address] [id number] [place] [address] Jun, [facility] [place] [facility] [address] [id number] [place] [address] 08 Jun, 2013 [facility] [place] [facility] [address] [id number] [place] [address] 08 Jun, 2014 [facility] [place] [facility] [address] [id number] [place] [address] Jun, 2013 [facility] [place] [facility] [address] [id number] [place] [address] Jun, 2013 [facility] [place] [facility] [address] [id number] [place] [address] May, 2013 [facility] [place] [facility] [address] [id number] [facility] [place] [address] 30 May, 2014 [facility] [place] [facility] [address] [facility] [id number] [facility] [place] [address] May, 2013 [facility] [place] [facility] [address] [id number] [facility] [place] [address] May, 2013 [facility] [place] [facility] [address] [facility] [id number] [place] [address] May, 2013 [facility] [place] [facility] [address] [facility] [id number] [facility] [place] [address] May, [facility] [place] [facility] [address] [id number] [facility] [place] [address] Apr, [facility] [place] [facility] [address] [id number] [place] [address] Apr, [facility] [place] [facility] [address] [id number] [facility] [place] [address] Apr, [facility] [place] [facility] [address] [id number] [place] [address] Apr, [facility] [place] [facility] [address] [id number] [place] [address] Apr, [facility] [place] [facility] [address] [id number] [place] [address] Apr, [facility] [place] [facility] [address] [id number] [place] [address] Apr, [facility] [place] [facility] [address] [id number] [place] [address] Apr, [facility] [place] [facility] [address] [id number] [place] [address] Apr, [facility] [place] [facility] [address] [id number] [place] [address] Apr, [facility] [place] [facility] [address] [id number] [place] [address] Apr, [facility] [place] [facility] [address] [id number] [facility] [place] [address] Apr, [facility] [place] [facility] [address] [id number] [facility] [place] [address] Mar, [facility] [place] [facility] [address] [facility] [id number] [place] [address] Mar, [facility] [place] [facility] [address] [id number] [place] [address] Mar, [facility] [place] [facility] [address] [facility] [id number] [place] [address] Mar, [facility] [place] [facility] [address] [facility] [id number] [facility] [place] [address] Mar, [facility] [place] [facility] [address] [id number] [place] [address] Mar, [facility] [place] [facility] [address] [id number] [place] [address] Mar, [facility] [place] [facility] [address] [id number] [place] [address] Mar, [facility] [place] [facility] [address] [facility] [id number] [place] [address] Mar, [facility] [place] [facility] [address] [id number] [place] [address] Mar, [facility] [place] [facility] [address] [id number] [place] [address] Mar, [facility] [place] [facility] [address] [id number] [place] [address] Feb, [facility] [place] [facility] [address] [facility] [id number] [place] [address] Feb, [facility] [place] [facility] [address] [id number] [place] [address] Feb, [facility] [place] [facility] [address] [id number] [place] [address] Feb, [facility] [place] [facility] [address] [id number] [place] [address] Feb, [facility] [place] [facility] [address] [id number] [place] [address] Feb, [facility] [place] [facility] [address] [id number] [place] [address] Feb, [facility] [place] [facility] [address] [id number] [place] [address] Feb, [facility] [place] [facility] [address] [id number] [place] [address] Feb, [facility] [place] [facility] [address] [facility] [id number] [place] [address] Feb, [facility] [place] [facility] [address] [id number] [place] [address] January, [facility] [place] [facility] [address] [id number] [place] [address] January, [facility] [place] [facility] [address] [id number] [place] [address] January, [facility] [place] [facility] [address] [id number] [place] [address] January, [facility] [place] [facility] [address] [id number] [place] [address] January, [facility] [place] [facility] [address] [id number] [place] [address] January, [facility] [place] [facility] [address] [id number] [place] [address] January, [facility] [place] [facility] [address] [id number] [place] [address] January, [facility] [place] [facility] [address] [id number] [place] [address] January, [facility] [place] [facility] [address] [id number] [place] [address] January, [facility] [place] [facility] [address] [id number] [place] [address] January, [facility] [place] [facility] [address] [id number] [place] [address] January, [facility] [place] [facility] [address] [facility] [id number] [place] [address] January, [facility] [place] [facility] [address] [id number] [place] [address] January, [facility] [place] [facility] [address] [id number] [place] [address] January, [facility] [place] [facility] [address] [id number] [place] [address] January, [facility] [place] [facility] [address] [facility] [id number] [place] [address] Dec, [facility] [place] [facility] [address] [id number] [place] [address] Dec, [facility] [place] [facility] [address] [id number] [place] [address] Dec, [facility] [place] [facility] [address] [id number] [place] [address] Dec, [facility] [place] [facility] [address] [id number] [place] [address] Dec, [facility] [place] [facility] [address] [id number] [place] [address] Dec, [facility] [place] [facility] [address] [id number] [place] [address] Dec, [facility] [place] [facility] [address] [id number] [place] [address] Dec, [facility] [place] [facility] [address] [id number] [place] [address] Dec, [facility] [place] [facility] [address] [id number] [place] [address] Dec, [facility] [place] [facility] [address] [id number] [place] [address] Nov, [facility] [place] [facility] [address] [id number] [place] [address] Nov, [facility] [place] [facility] [address] [id number] [place] [address] 07 Oct, 2013 [facility] [place] [facility] [address] [facility] [id number] [place] [address] Oct, [facility] [place] [facility] [address] [id number] [place] [address] Oct, [facility] [place] [facility] [address] [id number] [place] [address] Sep, [facility] [place] [facility] [address] [id number] [place] [address] Sep, [facility] [place] [facility] [address] [id number] [place] [address] Sep, [facility] [place] [facility] [address] [id number] [place] [address] Sep, [facility] [place] [facility] [address] [id number] [place] [address] Sep, [facility] [place] [facility] [address] [id number] [place] [address] Sep, [facility] [place] [facility] [address] [id number] [place] [address] Sep, [facility] [place] [facility] [address] [id number] [place] [address] Sep, [facility] [place] [facility] [address] [id number] [place] [address] Sep, [facility] [place] [facility] [address] [id number] [place] [address] Sep, [facility] [place] [facility] [address] [id number] [place] [address] Sep, [facility] [place] [facility] [address] [id number] [place] [address] Sep, [facility] [place] [facility] [address] [id number] [place] [address] Aug, [facility] [place] [facility] [address] [id number] [place] [address] Aug, [facility] [place] [facility] [address] [id number] [place] [address] Aug, 2012 [facility] [place] [facility] [address] [id number] [place] [address] Aug, [facility] [place] [facility] [address] [id number] [place] [address] Jul, [facility] [place] [facility] [address] [id number] [place] [address] Jul, [facility] [place] [facility] [address] [id number] [place] [address] Jun, [facility] [place] [facility] [address] [id number] [place] [address] Jun, [facility] [place] [facility] [address] [id number] [place] [address] Jun, [facility] [place] [facility] [address] [id number] [place] [address] Jun, [facility] [place] [facility] [address] [id number] [place] [address] Jun, [facility] [place] [facility] [address] [id number] [place] [address] Jun, [facility] [place] [facility] [address] [id number] [place] [address] Jun, [facility] [place] [facility] [address] [id number] [place] [address] Jun, [facility] [place] [facility] [address] [id number] [place] [address] 24 May, 2012 [facility] [place] [facility] [address] [id number] [place] [address] 23 Sep, 2012 [facility] [place] [facility] [address] [id number] [place] [address] 18 Sep, 2012 [facility] [place] [facility] [address] [id number] [place] [address] 13 Sep, 2012 [facility] [place] [facility] [address] [id number] [facility] [place] [address] May, 2012 [facility] [place] [facility] [address] [id number] [facility] [place] [address] May, [facility] [place] [facility] [address] [facility] [id number] [facility] [place] [address] May, [facility] [place] [facility] [address] [id number] [facility] [place] [address] Apr, [facility] [place] [facility] [address] [facility] [id number] [place] [address] Apr, [facility] [place] [facility] [address] [facility] [id number] [place] [address] Apr, [facility] [place] [facility] [address] [facility] [id number] [place] [address] Apr, [facility] [place] [facility] [address] [id number] [facility] [place] [address] Apr, [facility] [place] [facility] [address] [id number] [facility] [place] [address] Apr, [facility] [place] [facility] [address] [facility] [facility] [id number] [facility] [place] [address] Apr, [facility] [address] [id number] [facility] [place] [address] Mar, [facility] [address] [id number] [facility] [place] [address] Mar, [facility] [address] [id number] [facility] [place] [address] Mar, [facility] [address] [facility] [id number] [facility] [place] [address] Mar, [facility] [address] [id number] [facility] [place] [address] Mar, [facility] [address] [facility] [id number] [facility] [place] [address] Mar, [facility] [address] [id number] [facility] [place] [address] Mar, [facility] [address] [id number] [place] [address] Mar, [facility] [address] [id number] [place] [address] Feb, [facility] [address] [id number] [place] [address] Feb, [facility] [address] [id number] [place] [address] Feb, [facility] [address] [id number] [place] [address] January, [facility] [address] [id number] [place] [address] January, [facility] [address] [id number] [place] [address] January, [facility] [address] [id number] [place] [address] January, [facility] [address] [id number] [place] [address] January, [facility] [address] [id number] [place] [address] January, [facility] [address] [id number] [place] [address] January, [facility] [address] [id number] [place] [address] January, [facility] [address] [id number] [place] [address] Dec, [facility] [address] [id number] [place] [address] Dec, [facility] [address] [id number] [place] [address] Dec, [facility] [address] [id number] [place] [address] Dec, [facility] [address] [id number] [place] [address] Dec, [facility] [address] [facility] [id number] [place] [address] 22 Nov, 2012 [facility] [address] [id number] [place] [address] 21 Nov, 2012 [facility] [address] [id number] [place] [address] 19 Nov, 2012 [facility] [address] [id number] [place] [address] 18 Nov, 2012 [facility] [address] [facility] [id number] [place] [address] 18 Nov, 2012 [facility] [address] [id number] [place] [address] 14 Nov, 2012 [facility] [address] [id number] [place] [address] Nov, [facility] [address] [id number] [place] [address] Nov, [facility] [address] [id number] [place] [address] Oct, [facility] [address] [id number] [place] [address] 21 Oct, 2012 [facility] [address] [id number] [place] [address] 12 Oct, 2012 [facility] [address] [id number] [place] [address] 08 Oct, 2012 [facility] [address] [id number] [place] [address] 07 Oct, 2012 [facility] [address] [id number] [place] [address] 07 Oct, 2012 [facility] [address] [id number] [place] [address] 05 Oct, 2012 [facility] [address] [id number] [place] [address] 04 Oct, 2012 [facility] [address] [id number] [place] [address] 04 Oct, 2012 [facility] [address] [id number] [place] [address] Sep, [facility] [address] [id number] [place] [address] Sep, [facility] [address] [id number] [place] [address] Sep, [facility] [address] [id number] [place] [address] Sep, [facility] [address] [id number] [place] [address] Sep, [facility] [address] [id number] [place] [address] Sep, [facility] [address] [id number] [place] [address] Aug, [facility] [address] [id number] [place] [address] Aug, [facility] [address] [id number] [place] [address] Aug, [facility] [address] [id number] [place] [address] Aug, [facility] [address] [id number] [place] [address] Aug, [facility] [address] [id number] [place] [address] Aug, [facility] [address] [id number] [place] [address] Aug, [facility] [address] [id number] [place] [address] Aug, [facility] [address] [id number] [place] [address] Aug, [facility] [address] [id number] [place] [address] Jul, [facility] [id number] [place] [address] Jul, [facility] [address] [address] Jul, [facility] [address] [address] Jul, [facility] [address] [address] Nov, [facility] [address] [address] Sep, [facility] [address] [address] Aug, [facility] [address] [address] Aug, [facility] [address] [address] Aug, [facility] [address] [address] Jul, IMMUNIZATIONS No Known Immunizations SOCIAL HISTORY [...] 07/2012 Hospitalization History Hypostension-medication side effect-[facility] 03/13/16
--- OUTSIDE RECORDS SUMMARY | 2020-01-01 11:11 | XMS REPORT ---
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 Active 338774646 Problem Abdominal pain R10.9 Active 65411 001 Problem Change in bowel habit R19.4 Active 82729967 Problem Coronary atherosclerosis due to lipid rich plaque I25.83 Active 04601697 Problem Type 2 diabetes mellitus with complication E11.8 Active 01487875 Problem Impotence N52.9 Active 685227527 Problem Family history of colon cancer Z80.0 Active 983325727 Problem Diabetic neuropathy, painful E11.40 A ctive 609390497 Problem Arm paresthesia, right R20.2 Active 58328071 Problem Gastroesophageal reflux disease without esophagitis K21.9 Active 055439937 Problem Drug abuse, opioid type F11.10 Active 3740517 Problem COPD exacerbation J44.1 Active 19 1999959 Problem Obstructive sleep apnea syndrome G47.33 Active 40792540 Problem Diverticulitis K57.92 Active 70476 6006 Problem Pain of right upper extremity M79.601 Active 708734628 Problem Respiratory bronchiolitis interstitial lung disease J84.115 Active 674561910 Problem Hypoxia R09.02 Active 262096390 Problem Interstitial lung disease J84.9 Acti ve [id number] ALLERGIES No Information ENCOUNTERS Encounter Location Date Diagnosis [facility] [address] [id number] [place] [address] Aug, [facility] [address] [id number] [place] [address] Aug, Diabetic neuropathy, painful E11.40 ; In terstitial lung disease J84.9 ; Chronic cough R05 ; Type 2 diabetes mellitus with complication E11.8 and group home current use of insulin Z79.4 [place] [address] [address] Jul, [facility] [address] [address] Jul, [place] [address] [address] Jul, Diabetic neuropathy, painful E11.40 [place] [address] [address] Jul, Type 2 diabetes mellitus with complicati on E11.8 [place] [address] [address] Jun, Diabetic neuropathy, painful E11.40 [place] [address] [address] Jun, [facility] [address] [facility] [id number] [address] [place] [address] Jun, Type 2 diabetes mellitus wit h complication E11.8 ; Other viral agents as the cause of diseases classified elsewhere B97.89 ; Acute upper respiratory infection, unspecified J06.9 ; Acute recurrent maxillary sinusitis J01.01 ; Sore throat J02.9 and Headache R51 [place] [address] [address] Jun, Right lower quadrant abdominal pain R10. 31 and Type 2 diabetes mellitus with complication E11.8 [place] [address] [address] May, Diabetic neuropathy, painful E11.[address] [address] May, COPD exacerbation J44.1 and Type 2 diabe chidi mellitus with complication E11.8 [place] [address] [address] Apr, Diabetic neuropathy, painful E11.40 [place] [address] [place] [id number] [place] [address] Apr, Diabetic neuropathy, painful E11.40 [facility] [place] [address] [place] [id number] [address] [place] [address] Mar, Bronchitis J40 [place] [address] [address] January, Type 2 diabetes mellitus with complicati [...] pain M79.622 and Cervical spinal stenosis M48.02 [facility] [place] [id number] [address] [place] [address] January, Viral gastroenteritis A08.4 [place] [address] [address] Dec, Diabetic neuropathy, painful E11.40 [place] [id number] [place] [id number] Oct, [address] [address] Oct, Acute right-sided weakness M62.89 and Sl urring of speech R47.81 [place] [address] [place] [id number] [place] [address] Sep, Type 2 diabetes mellitus with complicati on E11.8 ; Diabetic neuropathy, painful E11.40 ; Impotence N52.9 ; Coronary atherosclerosis due to lipid rich plaque I25.83 ; 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 ; Interstitial lung disease J84.9 ; Hypoxia R09.02 ; Essential hypertension I10 and Gastroesophageal reflux disease without esophagitis K21.9 [facility] [place] [address] [place] [id number] [address] [address] 07 Sep, 2016 Bronchitis J40 [facility] [address] [facility] [id number] [place] [address] Aug, Gastroenteritis and colitis, viral A08.4 [facility] [address] [address] Aug, [facility] [address] [address] Jun, Type 2 diabetes mellitus with complicati on E11.8 ; Diabetic neuropathy, painful E11.40 ; Impotence N52.9 ; Coronary atherosclerosis due to lipid rich plaque I25.83 ; 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 ; Interstitial lung disease J84.9 ; Hypoxia R09.02 and Essential hypertension I10 [facility] [address] [address] 30 May, 2016 Bronchitis J40 [facility] [address] [address] 29 May, 2016 [facility] [address] [address] 20 May, 2016 Pain of right upper extremity M79.601 [facility] [address] [address] May, [facility] [address] [address] 15 May, 2016 [facility] [address] [address] 07 May, 2016 Right hand pain M79.641 [facility] [address] [address] Apr, [facility] [address] [address] Apr, [facility] [address] [address] Mar, [facility] [address] [address] Mar, Essential hypertension I10 [place] [address] [address] Feb, [place] [address] [address] Feb, Interstitial lung disease J84.9 and Bron chitis J40 [place] [address] [address] Feb, [place] [address] [address] Feb, Type 2 diabetes mellitus with complicati on E11.8 ; Impotence N52.9 ; Coronary atherosclerosis due to lipid rich plaque I25.83 ; 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 and Diabetic neuropathy, painful E11.40 [place] [address] [address] January, [place] [address] [address] January, Arm paresthesia, right R20.2 and Pain of right upper extremity M79.601 [place] [address] [address] Dec, Lumbar strain S39.012A [place] [address] [address] Nov, Diabetic neuropathy, painful E11.40 ; Re spiratory bronchiolitis interstitial lung disease J84.115 ; Pain of right upper extremity M79.601 and Arm paresthesia, right R20.2 [place] [address] [address] Nov, Diabetic neuropathy, painful E11.40 [place] [address] [address] Sep, Type 2 diabetes mellitus with complicati on E11.8 ; Impotence N52.9 ; Coronary atherosclerosis due to lipid rich plaque I25.83 ; 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 ; Diabetic neuropathy, painful E11.40 ; Chest pain R07.9 and Restless leg G25.81 [place] [address] [address] Sep, [place] [address] [address] Jul, COPD (chronic obstructive pulmonary dise ase) with acute bronchitis J44.[address] [address] Jun, Abdominal pain R10.9 ; Family history of colon cancer Z80.0 and Diverticulitis K57.[address] [address] Jun, Abdominal pain R10.9 and Diverticulitis K57.[address] [address] Apr, Diabetes with other specified manifestat ions, type II or unspecified type, not stated as uncontrolled 250.80 ; Coronary atherosclerosis of unspecified type of vessel, nulato or graft 414.00 ; Unspecified essential hypertension 401.9 ; Impotence of organic origin 607.84 ; Sleep apnea 780.57 and Interstitial lung disease 515 [place] [address] [address] Dec, [address] [address] Dec, [place] [address] [address] Nov, [place] [address] [address] Nov, [place] [address] [address] Nov, [address] [address] Nov, [address] [address] Nov, 2014 [facility] [place] [facility] [address] [id number] [place] [address] Nov, [facility] [place] [facility] [address] [id number] [place] [address] Nov, 2014 [facility] [place] [facility] [address] [id number] [place] [address] Nov, 2014 [facility] [place] [facility] [address] [id number] [place] [address] Nov, 2014 [facility] [place] [facility] [address] [id number] [place] [address] Nov, 2014 [facility] [place] [facility] [address] [id number] [place] [address] Oct, 2014 [facility] [place] [facility] [address] [id number] [place] [address] Oct, 2014 [facility] [place] [facility] [address] [id number] [place] [address] Oct, 2014 [facility] [place] [facility] [address] [id number] [place] [address] Oct, 2014 [facility] [place] [facility] [address] [id number] [place] [address] Oct, 2014 [facility] [place] [facility] [address] [id number] [place] [address] Oct, 2014 [facility] [place] [facility] [address] [id number] [place] [address] Oct, 2014 [facility] [place] [facility] [address] [id number] [place] [address] Oct, 2014 [facility] [place] [facility] [address] [id number] [place] [address] Oct, 2014 [facility] [place] [facility] [address] [id number] [place] [address] Oct, 2014 [facility] [place] [facility] [address] [id number] [place] [address] Oct, [facility] [place] [facility] [address] [facility] [id number] [place] [address] Jul, 2013 [facility] [place] [facility] [address] [id number] [place] [address] Jul, 2013 [facility] [place] [facility] [address] [id number] [place] [address] Jun, 2013 [facility] [place] [facility] [address] [id number] [place] [address] Jun, 2013 [facility] [place] [facility] [address] [id number] [place] [address] Jun, 2013 [facility] [place] [facility] [address] [id number] [place] [address] Jun, 2013 [facility] [place] [facility] [address] [id number] [place] [address] 15 Jun, 2014 [facility] [place] [facility] [address] [id number] [place] [address] 15 Jun, 2013 [facility] [place] [facility] [address] [id number] [place] [address] 14 Jun, 2014 [facility] [place] [facility] [address] [id number] [place] [address] 14 Jun, 2014 [facility] [place] [facility] [address] [id number] [place] [address] Jun, 2013 [facility] [place] [facility] [address] [id number] [place] [address] Jun, [facility] [place] [facility] [address] [id number] [place] [address] 08 Jun, 2013 [facility] [place] [facility] [address] [id number] [place] [address] 08 Jun, 2014 [facility] [place] [facility] [address] [id number] [place] [address] Jun, 2013 [facility] [place] [facility] [address] [id number] [place] [address] Jun, 2013 [facility] [place] [facility] [address] [id number] [place] [address] May, 2013 [facility] [place] [facility] [address] [id number] [facility] [place] [address] 30 May, 2014 [facility] [place] [facility] [address] [facility] [id number] [facility] [place] [address] May, 2013 [facility] [place] [facility] [address] [id number] [facility] [place] [address] May, 2013 [facility] [place] [facility] [address] [facility] [id number] [place] [address] May, 2013 [facility] [place] [facility] [address] [facility] [id number] [facility] [place] [address] May, [facility] [place] [facility] [address] [id number] [facility] [place] [address] Apr, [facility] [place] [facility] [address] [id number] [place] [address] Apr, [facility] [place] [facility] [address] [id number] [facility] [place] [address] Apr, [facility] [place] [facility] [address] [id number] [place] [address] Apr, [facility] [place] [facility] [address] [id number] [place] [address] Apr, [facility] [place] [facility] [address] [id number] [place] [address] Apr, [facility] [place] [facility] [address] [id number] [place] [address] Apr, [facility] [place] [facility] [address] [id number] [place] [address] Apr, [facility] [place] [facility] [address] [id number] [place] [address] Apr, [facility] [place] [facility] [address] [id number] [place] [address] Apr, [facility] [place] [facility] [address] [id number] [place] [address] Apr, [facility] [place] [facility] [address] [id number] [facility] [place] [address] Apr, [facility] [place] [facility] [address] [id number] [facility] [place] [address] Mar, [facility] [place] [facility] [address] [facility] [id number] [place] [address] Mar, [facility] [place] [facility] [address] [id number] [place] [address] Mar, [facility] [place] [facility] [address] [facility] [id number] [place] [address] Mar, [facility] [place] [facility] [address] [facility] [id number] [facility] [place] [address] Mar, [facility] [place] [facility] [address] [id number] [place] [address] Mar, [facility] [place] [facility] [address] [id number] [place] [address] Mar, [facility] [place] [facility] [address] [id number] [place] [address] Mar, [facility] [place] [facility] [address] [facility] [id number] [place] [address] Mar, [facility] [place] [facility] [address] [id number] [place] [address] Mar, [facility] [place] [facility] [address] [id number] [place] [address] Mar, [facility] [place] [facility] [address] [id number] [place] [address] Feb, [facility] [place] [facility] [address] [facility] [id number] [place] [address] Feb, [facility] [place] [facility] [address] [id number] [place] [address] Feb, [facility] [place] [facility] [address] [id number] [place] [address] Feb, [facility] [place] [facility] [address] [id number] [place] [address] Feb, [facility] [place] [facility] [address] [id number] [place] [address] Feb, [facility] [place] [facility] [address] [id number] [place] [address] Feb, [facility] [place] [facility] [address] [id number] [place] [address] Feb, [facility] [place] [facility] [address] [id number] [place] [address] Feb, [facility] [place] [facility] [address] [facility] [id number] [place] [address] Feb, [facility] [place] [facility] [address] [id number] [place] [address] January, [facility] [place] [facility] [address] [id number] [place] [address] January, [facility] [place] [facility] [address] [id number] [place] [address] January, [facility] [place] [facility] [address] [id number] [place] [address] January, [facility] [place] [facility] [address] [id number] [place] [address] January, [facility] [place] [facility] [address] [id number] [place] [address] January, [facility] [place] [facility] [address] [id number] [place] [address] January, [facility] [place] [facility] [address] [id number] [place] [address] January, [facility] [place] [facility] [address] [id number] [place] [address] January, [facility] [place] [facility] [address] [id number] [place] [address] January, [facility] [place] [facility] [address] [id number] [place] [address] January, [facility] [place] [facility] [address] [id number] [place] [address] January, [facility] [place] [facility] [address] [facility] [id number] [place] [address] January, [facility] [place] [facility] [address] [id number] [place] [address] January, [facility] [place] [facility] [address] [id number] [place] [address] January, [facility] [place] [facility] [address] [id number] [place] [address] January, [facility] [place] [facility] [address] [facility] [id number] [place] [address] Dec, [facility] [place] [facility] [address] [id number] [place] [address] Dec, [facility] [place] [facility] [address] [id number] [place] [address] Dec, [facility] [place] [facility] [address] [id number] [place] [address] Dec, [facility] [place] [facility] [address] [id number] [place] [address] Dec, [facility] [place] [facility] [address] [id number] [place] [address] Dec, [facility] [place] [facility] [address] [id number] [place] [address] Dec, [facility] [place] [facility] [address] [id number] [place] [address] Dec, [facility] [place] [facility] [address] [id number] [place] [address] Dec, [facility] [place] [facility] [address] [id number] [place] [address] Dec, [facility] [place] [facility] [address] [id number] [place] [address] Nov, [facility] [place] [facility] [address] [id number] [place] [address] Nov, [facility] [place] [facility] [address] [id number] [place] [address] 07 Oct, 2013 [facility] [place] [facility] [address] [facility] [id number] [place] [address] Oct, [facility] [place] [facility] [address] [id number] [place] [address] Oct, [facility] [place] [facility] [address] [id number] [place] [address] Sep, [facility] [place] [facility] [address] [id number] [place] [address] Sep, [facility] [place] [facility] [address] [id number] [place] [address] Sep, [facility] [place] [facility] [address] [id number] [place] [address] Sep, [facility] [place] [facility] [address] [id number] [place] [address] Sep, [facility] [place] [facility] [address] [id number] [place] [address] Sep, [facility] [place] [facility] [address] [id number] [place] [address] Sep, [facility] [place] [facility] [address] [id number] [place] [address] Sep, [facility] [place] [facility] [address] [id number] [place] [address] Sep, [facility] [place] [facility] [address] [id number] [place] [address] Sep, [facility] [place] [facility] [address] [id number] [place] [address] Sep, [facility] [place] [facility] [address] [id number] [place] [address] Sep, [facility] [place] [facility] [address] [id number] [place] [address] Aug, [facility] [place] [facility] [address] [id number] [place] [address] Aug, [facility] [place] [facility] [address] [id number] [place] [address] Aug, 2012 [facility] [place] [facility] [address] [id number] [place] [address] Aug, [facility] [place] [facility] [address] [id number] [place] [address] Jul, [facility] [place] [facility] [address] [id number] [place] [address] Jul, [facility] [place] [facility] [address] [id number] [place] [address] Jun, [facility] [place] [facility] [address] [id number] [place] [address] Jun, [facility] [place] [facility] [address] [id number] [place] [address] Jun, [facility] [place] [facility] [address] [id number] [place] [address] Jun, [facility] [place] [facility] [address] [id number] [place] [address] Jun, [facility] [place] [facility] [address] [id number] [place] [address] Jun, [facility] [place] [facility] [address] [id number] [place] [address] Jun, [facility] [place] [facility] [address] [id number] [place] [address] Jun, [facility] [place] [facility] [address] [id number] [place] [address] 24 May, 2012 [facility] [place] [facility] [address] [id number] [place] [address] 23 Sep, 2012 [facility] [place] [facility] [address] [id number] [place] [address] 18 Sep, 2012 [facility] [place] [facility] [address] [id number] [place] [address] 13 Sep, 2012 [facility] [place] [facility] [address] [id number] [facility] [place] [address] May, 2012 [facility] [place] [facility] [address] [id number] [facility] [place] [address] May, [facility] [place] [facility] [address] [facility] [id number] [facility] [place] [address] May, [facility] [place] [facility] [address] [id number] [facility] [place] [address] Apr, [facility] [place] [facility] [address] [facility] [id number] [place] [address] Apr, [facility] [place] [facility] [address] [facility] [id number] [place] [address] Apr, [facility] [place] [facility] [address] [facility] [id number] [place] [address] Apr, [facility] [place] [facility] [address] [id number] [facility] [place] [address] Apr, [facility] [place] [facility] [address] [id number] [facility] [place] [address] Apr, [facility] [place] [facility] [address] [facility] [id number] [facility] [place] [address] Apr, [facility] [address] [id number] [facility] [place] [address] Mar, [facility] [address] [id number] [facility] [place] [address] Mar, [facility] [address] [id number] [facility] [place] [address] Mar, [facility] [address] [facility] [id number] [facility] [place] [address] Mar, [facility] [address] [id number] [facility] [place] [address] Mar, [facility] [address] [facility] [id number] [facility] [place] [address] Mar, [facility] [address] [id number] [facility] [place] [address] Mar, [facility] [address] [id number] [place] [address] Mar, [facility] [address] [id number] [place] [address] Feb, [facility] [address] [id number] [place] [address] Feb, [facility] [address] [id number] [place] [address] Feb, [facility] [address] [id number] [place] [address] January, [facility] [address] [id number] [place] [address] January, [facility] [address] [id number] [place] [address] January, [facility] [address] [id number] [place] [address] January, [facility] [address] [id number] [place] [address] January, [facility] [address] [id number] [place] [address] January, [facility] [address] [id number] [place] [address] January, [facility] [address] [id number] [place] [address] January, [facility] [address] [id number] [place] [address] Dec, [facility] [address] [id number] [place] [address] Dec, [facility] [address] [id number] [place] [address] Dec, [facility] [address] [id number] [place] [address] Dec, [facility] [address] [id number] [place] [address] Dec, [facility] [address] [facility] [id number] [place] [address] 22 Nov, 2012 [facility] [address] [id number] [place] [address] 21 Nov, 2012 [facility] [address] [id number] [place] [address] 19 Nov, 2012 [facility] [address] [id number] [place] [address] 18 Nov, 2012 [facility] [address] [facility] [id number] [place] [address] 18 Nov, 2012 [facility] [address] [id number] [place] [address] 14 Nov, 2012 [facility] [address] [id number] [place] [address] Nov, [facility] [address] [id number] [place] [address] Nov, [facility] [address] [id number] [place] [address] Oct, [facility] [address] [id number] [place] [address] 21 Oct, 2012 [facility] [address] [id number] [place] [address] 12 Oct, 2012 [facility] [address] [id number] [place] [address] 08 Oct, 2012 [facility] [address] [id number] [place] [address] 07 Oct, 2012 [facility] [address] [id number] [place] [address] 07 Oct, 2012 [facility] [address] [id number] [place] [address] 05 Oct, 2012 [facility] [address] [id number] [place] [address] 04 Oct, 2012 [facility] [address] [id number] [place] [address] 04 Oct, 2012 [facility] [address] [id number] [place] [address] Sep, [facility] [address] [id number] [place] [address] Sep, [facility] [address] [id number] [place] [address] Sep, [facility] [address] [id number] [place] [address] Sep, [facility] [address] [id number] [place] [address] Sep, [facility] [address] [id number] [place] [address] Sep, [facility] [address] [id number] [place] [address] Aug, [facility] [address] [id number] [place] [address] Aug, [facility] [address] [id number] [place] [address] Aug, [facility] [address] [id number] [place] [address] Aug, [facility] [address] [id number] [place] [address] Aug, [facility] [address] [id number] [place] [address] Aug, [facility] [address] [id number] [place] [address] Aug, [facility] [address] [id number] [place] [address] Aug, [facility] [address] [id number] [place] [address] Aug, [facility] [address] [id number] [place] [address] Jul, [facility] [id number] [place] [address] Jul, [facility] [address] [address] Jul, [facility] [address] [address] Jul, [facility] [address] [address] Nov, [facility] [address] [address] Sep, [facility] [address] [address] Aug, [facility] [address] [address] Aug, [facility] [address] [address] Aug, [facility] [address] [address] Jul, IMMUNIZATIONS No Known Immunizations SOCIAL HISTORY [...] Xanax 07/2012 Hospitalization History Hypostension-medication side effect-[facility] 03/13/16
--- OUTSIDE RECORDS SUMMARY | 2020-01-01 11:11 | XMS REPORT ---
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 Active 721105606 Problem Abdominal pain R10.9 Active 25874 001 Problem Change in bowel habit R19.4 Active 07620433 Problem Coronary atherosclerosis due to lipid rich plaque I25.83 Active 69795674 Problem Type 2 diabetes mellitus with complication E11.8 Active 66216158 Problem Impotence N52.9 Active 722795869 Problem Family history of colon cancer Z80.0 Active 147415837 Problem Diabetic neuropathy, painful E11.40 A ctive 382535723 Problem Arm paresthesia, right R20.2 Active 44239529 Problem Gastroesophageal reflux disease without esophagitis K21.9 Active 076962022 Problem Drug abuse, opioid type F11.10 Active 2093903 Problem COPD exacerbation J44.1 Active 19 0702084 Problem Obstructive sleep apnea syndrome G47.33 Active 81599062 Problem Diverticulitis K57.92 Active 70754 6006 Problem Pain of right upper extremity M79.601 Active 825350808 Problem Respiratory bronchiolitis interstitial lung disease J84.115 Active 324927157 Problem Hypoxia R09.02 Active 184606436 Problem Interstitial lung disease J84.9 Acti ve [id number] ALLERGIES No Information ENCOUNTERS Encounter Location Date Diagnosis [facility] [address] [id number] [place] [address] Aug, [facility] [address] [id number] [place] [address] Aug, Diabetic neuropathy, painful E11.40 ; In terstitial lung disease J84.9 ; Chronic cough R05 ; Type 2 diabetes mellitus with complication E11.8 and senior living current use of insulin Z79.4 [place] [address] [address] Jul, [facility] [address] [address] Jul, [place] [address] [address] Jul, Diabetic neuropathy, painful E11.40 [place] [address] [address] Jul, Type 2 diabetes mellitus with complicati on E11.8 [place] [address] [address] Jun, Diabetic neuropathy, painful E11.40 [place] [address] [address] Jun, [facility] [address] [facility] [id number] [address] [place] [address] Jun, Type 2 diabetes mellitus wit h complication E11.8 ; Other viral agents as the cause of diseases classified elsewhere B97.89 ; Acute upper respiratory infection, unspecified J06.9 ; Acute recurrent maxillary sinusitis J01.01 ; Sore throat J02.9 and Headache R51 [place] [address] [address] Jun, Right lower quadrant abdominal pain R10. 31 and Type 2 diabetes mellitus with complication E11.8 [place] [address] [address] May, Diabetic neuropathy, painful E11.[address] [address] May, COPD exacerbation J44.1 and Type 2 diabe chidi mellitus with complication E11.8 [place] [address] [address] Apr, Diabetic neuropathy, painful E11.40 [place] [address] [place] [id number] [place] [address] Apr, Diabetic neuropathy, painful E11.40 [facility] [place] [address] [address] [place] [id number] [address] [place] [address] Mar, Bronchitis J40 [place] [address] [address] January, Type 2 diabetes mellitus with complicati [...] M79.622 and Cervical spinal stenosis M48.02 [facility] [place] [id number] [place] [address] January, Viral gastroenteritis A08.4 [place] [address] [address] Dec, Diabetic neuropathy, painful E11.40 [place] [id number] [place] [id number] Oct, [address] [address] Oct, Acute right-sided weakness M62.89 and Sl urring of speech R47.81 [place] [address] [place] [id number] [place] [address] Sep, Type 2 diabetes mellitus with complicati on E11.8 ; Diabetic neuropathy, painful E11.40 ; Impotence N52.9 ; Coronary atherosclerosis due to lipid rich plaque I25.83 ; 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 ; Interstitial lung disease J84.9 ; Hypoxia R09.02 ; Essential hypertension I10 and Gastroesophageal reflux disease without esophagitis K21.9 [facility] [place] [address] [address] [place] [id number] [place] [address] 07 Sep, 2016 Bronchitis J40 [facility] [address] [facility] [id number] [place] [address] Aug, Gastroenteritis and colitis, viral A08.4 [facility] [address] [address] Aug, [facility] [address] [address] Jun, Type 2 diabetes mellitus with complicati on E11.8 ; Diabetic neuropathy, painful E11.40 ; Impotence N52.9 ; Coronary atherosclerosis due to lipid rich plaque I25.83 ; 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641 [facility] [address] [address] Apr, [facility] [address] [address] Apr, [facility] [address] [address] Mar, [facility] [address] [address] Mar, Essential hypertension I10 [place] [address] [address] Feb, [place] [address] [address] Feb, Interstitial lung disease J84.9 and Bron chitis J40 [place] [address] [address] Feb, [place] [address] [address] Feb, Type 2 diabetes mellitus with complicati on E11.8 ; Impotence N52.9 ; Coronary atherosclerosis due to lipid rich plaque I25.83 ; 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 and Diabetic neuropathy, painful E11.40 [place] [address] [address] January, [place] [address] [address] January, Arm paresthesia, right R20.2 and Pain of right upper extremity M79.601 [place] [address] [address] Dec, Lumbar strain S39.012A [place] [address] [address] Nov, Diabetic neuropathy, painful E11.40 ; Re spiratory bronchiolitis interstitial lung disease J84.115 ; Pain of right upper extremity M79.601 and Arm paresthesia, right R20.2 [place] [address] [address] Nov, Diabetic neuropathy, painful E11.40 [place] [address] [address] Sep, Type 2 diabetes mellitus with complicati on E11.8 ; Impotence N52.9 ; Coronary atherosclerosis due to lipid rich plaque I25.83 ; 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 ; Diabetic neuropathy, painful E11.40 ; Chest pain R07.9 and Restless leg G25.81 [place] [address] [address] Sep, [place] [address] [address] Jul, COPD (chronic obstructive pulmonary dise ase) with acute bronchitis J44.[address] [address] Jun, Abdominal pain R10.9 ; Family history of colon cancer Z80.0 and Diverticulitis K57.[address] [address] Jun, Abdominal pain R10.9 and Diverticulitis K57.[address] [address] Apr, Diabetes with other specified manifestat ions, type II or unspecified type, not stated as uncontrolled 250.80 ; Coronary atherosclerosis of unspecified type of vessel, chilkoot or graft 414.00 ; Unspecified essential hypertension 401.9 ; Impotence of organic origin 607.84 ; Sleep apnea 780.57 and Interstitial lung disease 515 [place] [address] [address] Dec, [address] [address] Dec, [place] [address] [address] Nov, [place] [address] [address] Nov, [place] [address] [address] Nov, [address] [address] Nov[address] [address] Nov, 2014 [facility] [place] [facility] [address] [id number] [place] [address] Nov, [facility] [place] [facility] [address] [id number] [place] [address] Nov, 2014 [facility] [place] [facility] [address] [id number] [place] [address] Nov, 2014 [facility] [place] [facility] [address] [id number] [place] [address] Nov, 2014 [facility] [place] [facility] [address] [id number] [place] [address] Nov, 2014 [facility] [place] [facility] [address] [id number] [place] [address] Oct, 2014 [facility] [place] [facility] [address] [id number] [place] [address] Oct, 2014 [facility] [place] [facility] [address] [id number] [place] [address] Oct, 2014 [facility] [place] [facility] [address] [id number] [place] [address] Oct, 2014 [facility] [place] [facility] [address] [id number] [place] [address] Oct, 2014 [facility] [place] [facility] [address] [id number] [place] [address] Oct, 2014 [facility] [place] [facility] [address] [id number] [place] [address] Oct, 2014 [facility] [place] [facility] [address] [id number] [place] [address] Oct, 2014 [facility] [place] [facility] [address] [id number] [place] [address] Oct, 2014 [facility] [place] [facility] [address] [id number] [place] [address] Oct, 2014 [facility] [place] [facility] [address] [id number] [place] [address] Oct, [facility] [place] [facility] [address] [facility] [id number] [place] [address] Jul, 2013 [facility] [place] [facility] [address] [id number] [place] [address] Jul, 2013 [facility] [place] [facility] [address] [id number] [place] [address] Jun, 2013 [facility] [place] [facility] [address] [id number] [place] [address] Jun, 2013 [facility] [place] [facility] [address] [id number] [place] [address] Jun, 2013 [facility] [place] [facility] [address] [id number] [place] [address] Jun, 2013 [facility] [place] [facility] [address] [id number] [place] [address] 15 Jun, 2014 [facility] [place] [facility] [address] [id number] [place] [address] 15 Jun, 2013 [facility] [place] [facility] [address] [id number] [place] [address] 14 Jun, 2014 [facility] [place] [facility] [address] [id number] [place] [address] 14 Jun, 2014 [facility] [place] [facility] [address] [id number] [place] [address] Jun, 2013 [facility] [place] [facility] [address] [id number] [place] [address] Jun, [facility] [place] [facility] [address] [id number] [place] [address] 08 Jun, 2013 [facility] [place] [facility] [address] [id number] [place] [address] 08 Jun, 2014 [facility] [place] [facility] [address] [id number] [place] [address] Jun, 2013 [facility] [place] [facility] [address] [id number] [place] [address] Jun, 2013 [facility] [place] [facility] [address] [id number] [place] [address] May, 2013 [facility] [place] [facility] [address] [id number] [facility] [place] [address] 30 May, 2014 [facility] [place] [facility] [address] [facility] [id number] [facility] [place] [address] May, 2013 [facility] [place] [facility] [address] [id number] [facility] [place] [address] May, 2013 [facility] [place] [facility] [address] [facility] [id number] [place] [address] May, 2013 [facility] [place] [facility] [address] [facility] [id number] [facility] [place] [address] May, [facility] [place] [facility] [address] [id number] [facility] [place] [address] Apr, [facility] [place] [facility] [address] [id number] [place] [address] Apr, [facility] [place] [facility] [address] [id number] [facility] [place] [address] Apr, [facility] [place] [facility] [address] [id number] [place] [address] Apr, [facility] [place] [facility] [address] [id number] [place] [address] Apr, [facility] [place] [facility] [address] [id number] [place] [address] Apr, [facility] [place] [facility] [address] [id number] [place] [address] Apr, [facility] [place] [facility] [address] [id number] [place] [address] Apr, [facility] [place] [facility] [address] [id number] [place] [address] Apr, [facility] [place] [facility] [address] [id number] [place] [address] Apr, [facility] [place] [facility] [address] [id number] [place] [address] Apr, [facility] [place] [facility] [address] [id number] [facility] [place] [address] Apr, [facility] [place] [facility] [address] [id number] [facility] [place] [address] Mar, [facility] [place] [facility] [address] [facility] [id number] [place] [address] Mar, [facility] [place] [facility] [address] [id number] [place] [address] Mar, [facility] [place] [facility] [address] [facility] [id number] [place] [address] Mar, [facility] [place] [facility] [address] [facility] [id number] [facility] [place] [address] Mar, [facility] [place] [facility] [address] [id number] [place] [address] Mar, [facility] [place] [facility] [address] [id number] [place] [address] Mar, [facility] [place] [facility] [address] [id number] [place] [address] Mar, [facility] [place] [facility] [address] [facility] [id number] [place] [address] Mar, [facility] [place] [facility] [address] [id number] [place] [address] Mar, [facility] [place] [facility] [address] [id number] [place] [address] Mar, [facility] [place] [facility] [address] [id number] [place] [address] Feb, [facility] [place] [facility] [address] [facility] [id number] [place] [address] Feb, [facility] [place] [facility] [address] [id number] [place] [address] Feb, [facility] [place] [facility] [address] [id number] [place] [address] Feb, [facility] [place] [facility] [address] [id number] [place] [address] Feb, [facility] [place] [facility] [address] [id number] [place] [address] Feb, [facility] [place] [facility] [address] [id number] [place] [address] Feb, [facility] [place] [facility] [address] [id number] [place] [address] Feb, [facility] [place] [facility] [address] [id number] [place] [address] Feb, [facility] [place] [facility] [address] [facility] [id number] [place] [address] Feb, [facility] [place] [facility] [address] [id number] [place] [address] January, [facility] [place] [facility] [address] [id number] [place] [address] January, [facility] [place] [facility] [address] [id number] [place] [address] January, [facility] [place] [facility] [address] [id number] [place] [address] January, [facility] [place] [facility] [address] [id number] [place] [address] January, [facility] [place] [facility] [address] [id number] [place] [address] January, [facility] [place] [facility] [address] [id number] [place] [address] January, [facility] [place] [facility] [address] [id number] [place] [address] January, [facility] [place] [facility] [address] [id number] [place] [address] January, [facility] [place] [facility] [address] [id number] [place] [address] January, [facility] [place] [facility] [address] [id number] [place] [address] January, [facility] [place] [facility] [address] [id number] [place] [address] January, [facility] [place] [facility] [address] [facility] [id number] [place] [address] January, [facility] [place] [facility] [address] [id number] [place] [address] January, [facility] [place] [facility] [address] [id number] [place] [address] January, [facility] [place] [facility] [address] [id number] [place] [address] January, [facility] [place] [facility] [address] [facility] [id number] [place] [address] Dec, [facility] [place] [facility] [address] [id number] [place] [address] Dec, [facility] [place] [facility] [address] [id number] [place] [address] Dec, [facility] [place] [facility] [address] [id number] [place] [address] Dec, [facility] [place] [facility] [address] [id number] [place] [address] Dec, [facility] [place] [facility] [address] [id number] [place] [address] Dec, [facility] [place] [facility] [address] [id number] [place] [address] Dec, [facility] [place] [facility] [address] [id number] [place] [address] Dec, [facility] [place] [facility] [address] [id number] [place] [address] Dec, [facility] [place] [facility] [address] [id number] [place] [address] Dec, [facility] [place] [facility] [address] [id number] [place] [address] Nov, [facility] [place] [facility] [address] [id number] [place] [address] Nov, [facility] [place] [facility] [address] [id number] [place] [address] 07 Oct, 2013 [facility] [place] [facility] [address] [facility] [id number] [place] [address] Oct, [facility] [place] [facility] [address] [id number] [place] [address] Oct, [facility] [place] [facility] [address] [id number] [place] [address] Sep, [facility] [place] [facility] [address] [id number] [place] [address] Sep, [facility] [place] [facility] [address] [id number] [place] [address] Sep, [facility] [place] [facility] [address] [id number] [place] [address] Sep, [facility] [place] [facility] [address] [id number] [place] [address] Sep, [facility] [place] [facility] [address] [id number] [place] [address] Sep, [facility] [place] [facility] [address] [id number] [place] [address] Sep, [facility] [place] [facility] [address] [id number] [place] [address] Sep, [facility] [place] [facility] [address] [id number] [place] [address] Sep, [facility] [place] [facility] [address] [id number] [place] [address] Sep, [facility] [place] [facility] [address] [id number] [place] [address] Sep, [facility] [place] [facility] [address] [id number] [place] [address] Sep, [facility] [place] [facility] [address] [id number] [place] [address] Aug, [facility] [place] [facility] [address] [id number] [place] [address] Aug, [facility] [place] [facility] [address] [id number] [place] [address] Aug, 2012 [facility] [place] [facility] [address] [id number] [place] [address] Aug, [facility] [place] [facility] [address] [id number] [place] [address] Jul, [facility] [place] [facility] [address] [id number] [place] [address] Jul, [facility] [place] [facility] [address] [id number] [place] [address] Jun, [facility] [place] [facility] [address] [id number] [place] [address] Jun, [facility] [place] [facility] [address] [id number] [place] [address] Jun, [facility] [place] [facility] [address] [id number] [place] [address] Jun, [facility] [place] [facility] [address] [id number] [place] [address] Jun, [facility] [place] [facility] [address] [id number] [place] [address] Jun, [facility] [place] [facility] [address] [id number] [place] [address] Jun, [facility] [place] [facility] [address] [id number] [place] [address] Jun, [facility] [place] [facility] [address] [id number] [place] [address] 24 May, 2012 [facility] [place] [facility] [address] [id number] [place] [address] 23 Sep, 2012 [facility] [place] [facility] [address] [id number] [place] [address] 18 Sep, 2012 [facility] [place] [facility] [address] [id number] [place] [address] 13 Sep, 2012 [facility] [place] [facility] [address] [id number] [facility] [place] [address] May, 2012 [facility] [place] [facility] [address] [id number] [facility] [place] [address] May, [facility] [place] [facility] [address] [facility] [id number] [facility] [place] [address] May, [facility] [place] [facility] [address] [id number] [facility] [place] [address] Apr, [facility] [place] [facility] [address] [facility] [id number] [place] [address] Apr, [facility] [place] [facility] [address] [facility] [id number] [place] [address] Apr, [facility] [place] [facility] [address] [facility] [id number] [place] [address] Apr, [facility] [place] [facility] [address] [id number] [facility] [place] [address] Apr, [facility] [place] [facility] [address] [id number] [facility] [place] [address] Apr, [facility] [place] [facility] [address] [facility] [id number] [facility] [place] [address] Apr, [facility] [place] [facility] [address] [id number] [facility] [place] [address] Mar, [facility] [place] [facility] [address] [id number] [facility] [place] [address] Mar, [facility] [place] [facility] [address] [id number] [facility] [place] [address] Mar, [facility] [place] [facility] [address] [facility] [id number] [facility] [place] [address] Mar, [facility] [place] [facility] [address] [id number] [facility] [place] [address] Mar, [facility] [place] [facility] [address] [facility] [id number] [facility] [place] [address] Mar, [facility] [place] [facility] [address] [id number] [facility] [place] [address] Mar, [facility] [place] [facility] [address] [id number] [place] [address] Mar, [facility] [place] [facility] [address] [id number] [place] [address] Feb, [facility] [place] [facility] [address] [id number] [place] [address] Feb, [facility] [place] [facility] [address] [id number] [place] [address] Feb, [facility] [place] [facility] [address] [id number] [place] [address] January, [facility] [place] [facility] [address] [id number] [place] [address] January, [facility] [place] [facility] [address] [id number] [place] [address] January, [facility] [place] [facility] [address] [id number] [place] [address] January, [facility] [place] [facility] [address] [id number] [place] [address] January, [facility] [place] [facility] [address] [id number] [place] [address] January, [facility] [place] [facility] [address] [id number] [place] [address] January, [facility] [place] [facility] [address] [id number] [place] [address] January, [facility] [place] [facility] [address] [id number] [place] [address] Dec, [facility] [place] [facility] [address] [id number] [place] [address] Dec, [facility] [place] [facility] [address] [id number] [place] [address] Dec, [facility] [place] [facility] [address] [id number] [place] [address] Dec, [facility] [place] [facility] [address] [id number] [place] [address] Dec, [facility] [address] [facility] [id number] [place] [address] 22 Nov, 2012 [facility] [place] [facility] [address] [id number] [place] [address] 21 Nov, 2012 [facility] [place] [facility] [address] [id number] [place] [address] 19 Nov, 2012 [facility] [place] [facility] [address] [id number] [place] [address] 18 Nov, 2012 [facility] [place] [facility] [address] [facility] [id number] [place] [address] 18 Nov, 2012 [facility] [place] [facility] [address] [id number] [place] [address] 14 Nov, 2012 [facility] [place] [facility] [address] [id number] [place] [address] Nov, [facility] [place] [facility] [address] [id number] [place] [address] Nov, [facility] [place] [facility] [address] [id number] [place] [address] Oct, [facility] [place] [facility] [address] [id number] [place] [address] 21 Oct, 2012 [facility] [place] [facility] [address] [id number] [place] [address] 12 Oct, 2012 [facility] [place] [facility] [address] [id number] [place] [address] 08 Oct, 2012 [facility] [place] [facility] [address] [id number] [place] [address] 07 Oct, 2012 [facility] [place] [facility] [address] [id number] [place] [address] 07 Oct, 2012 [facility] [place] [facility] [address] [id number] [place] [address] 05 Oct, 2012 [facility] [place] [facility] [address] [id number] [place] [address] 04 Oct, 2012 [facility] [place] [facility] [address] [id number] [place] [address] 04 Oct, 2012 [facility] [place] [facility] [address] [id number] [place] [address] Sep, [facility] [place] [facility] [address] [id number] [place] [address] Sep, [facility] [place] [facility] [address] [id number] [place] [address] Sep, [facility] [place] [facility] [address] [id number] [place] [address] Sep, [facility] [place] [facility] [address] [id number] [place] [address] Sep, [facility] [place] [facility] [address] [id number] [place] [address] Sep, [facility] [place] [facility] [address] [id number] [place] [address] Aug, [facility] [place] [facility] [address] [id number] [place] [address] Aug, [facility] [place] [facility] [address] [id number] [place] [address] Aug, [facility] [place] [facility] [address] [id number] [place] [address] Aug, [facility] [place] [facility] [address] [id number] [place] [address] Aug, [facility] [place] [facility] [address] [id number] [place] [address] Aug, [facility] [place] [facility] [address] [id number] [place] [address] Aug, [facility] [place] [facility] [address] [id number] [place] [address] Aug, [facility] [place] [facility] [address] [id number] [place] [address] Aug, [facility] [place] [facility] [address] [id number] [place] [address] Jul, [facility] [id number] [place] [address] Jul, [facility] [address] [address] Jul, [facility] [address] [address] Jul, [facility] [address] [address] Nov, [facility] [address] [address] Sep, [facility] [address] [address] Aug, [facility] [address] [address] Aug, [facility] [address] [address] Aug, [facility] [address] [address] Jul, IMMUNIZATIONS No Known Immunizations SOCIAL HISTORY [...] History Hypostension-medication side effect-[facility] 03/13/16
--- OUTSIDE RECORDS SUMMARY | 2020-01-01 11:11 | XMS REPORT ---
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 Active 169151524 Problem Abdominal pain R10.9 Active 96348 001 Problem Change in bowel habit R19.4 Active 62081533 Problem Coronary atherosclerosis due to lipid rich plaque I25.83 Active 90402908 Problem Type 2 diabetes mellitus with complication E11.8 Active 60734692 Problem Impotence N52.9 Active 627447300 Problem Family history of colon cancer Z80.0 Active 774154555 Problem Diabetic neuropathy, painful E11.40 A ctive 356913017 Problem Arm paresthesia, right R20.2 Active 78071747 Problem Gastroesophageal reflux disease without esophagitis K21.9 Active 325929463 Problem Drug abuse, opioid type F11.10 Active 9590998 Problem COPD exacerbation J44.1 Active 19 4892480 Problem Obstructive sleep apnea syndrome G47.33 Active 05333262 Problem Diverticulitis K57.92 Active 87643 6006 Problem Pain of right upper extremity M79.601 Active 643730927 Problem Respiratory bronchiolitis interstitial lung disease J84.115 Active 638095713 Problem Hypoxia R09.02 Active 886531229 Problem Interstitial lung disease J84.9 Acti ve [id number] ALLERGIES No Information ENCOUNTERS Encounter Location Date Diagnosis [facility] [address] [id number] [place] [address] Aug, [facility] [address] [id number] [place] [address] Aug, Diabetic neuropathy, painful E11.40 ; In terstitial lung disease J84.9 ; Chronic cough R05 ; Type 2 diabetes mellitus with complication E11.8 and FDC current use of insulin Z79.4 [facility] [address] [address] Jul, [facility] [address] [address] Jul, [facility] [address] [address] Jul, Diabetic neuropathy, painful E11.40 [place] [address] [address] Jul, Type 2 diabetes mellitus with complicati on E11.8 [place] [address] [address] Jun, Diabetic neuropathy, painful E11.40 [place] [address] [address] Jun, [facility] [address] [facility] [id number] [address] [place] [address] Jun, Type 2 diabetes mellitus wit h complication E11.8 ; Other viral agents as the cause of diseases classified elsewhere B97.89 ; Acute upper respiratory infection, unspecified J06.9 ; Acute recurrent maxillary sinusitis J01.01 ; Sore throat J02.9 and Headache R51 [place] [address] [address] Jun, Right lower quadrant abdominal pain R10. 31 and Type 2 diabetes mellitus with complication E11.8 [place] [address] [address] May, Diabetic neuropathy, painful E11.40 [place] [address] [address] 06 May, 2017 COPD exacerbation J44.1 and Type 2 diabe chidi mellitus with complication E11.8 [place] [address] [address] Apr, Diabetic neuropathy, painful E11.40 [place] [address] [place] [id number] [place] [address] Apr, Diabetic neuropathy, painful E11.40 [facility] [place] [address] [place] [id number] [address] [place] [address] Mar, Bronchitis J40 [place] [address] [address] January, Type 2 diabetes mellitus with complicati [...] Cervical spinal stenosis M48.02 [facility] [place] [address] [place] [address] January, Viral gastroenteritis A08.4 [place] [address] [address] Dec, Diabetic neuropathy, painful E11.40 [place] [id number] [place] [id number] Oct, [address] [address] Oct, Acute right-sided weakness M62.89 and Sl urring of speech R47.81 [place] [address] [place] [id number] [place] [address] Sep, Type 2 diabetes mellitus with complicati on E11.8 ; Diabetic neuropathy, painful E11.40 ; Impotence N52.9 ; Coronary atherosclerosis due to lipid rich plaque I25.83 ; FDC current use of insulin Z79.4 ; Interstitial lung disease J84.9 ; Hypoxia R09.02 ; Essential hypertension I10 and Gastroesophageal reflux disease without esophagitis K21.9 [facility] [address] [place] [id number] [address] [address] 07 Sep, 2016 Bronchitis J40 [facility] [address] [facility] [id number] [place] [address] Aug, Gastroenteritis and colitis, viral A08.4 [facility] [address] [address] Aug, [facility] [address] [address] Jun, Type 2 diabetes mellitus with complicati on E11.8 ; Diabetic neuropathy, painful E11.40 ; Impotence N52.9 ; Coronary atherosclerosis due to lipid rich plaque I25.83 ; 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 ; Interstitial lung disease J84.9 ; Hypoxia R09.02 and Essential hypertension I10 [facility] [address] [address] 30 May, 2016 Bronchitis J40 [facility] [address] [address] 29 May, 2016 [facility] [address] [address] 20 May, 2016 Pain of right upper extremity M79.601 [place] [address] [address] May, [place] [address] [address] 15 May, 2016 [facility] [address] [address] 07 May, 2016 Right hand pain M79.641 [place] [address] [address] Apr, [place] [address] [address] Apr, [facility] [address] [address] Mar, [place] [address] [address] Mar, Essential hypertension I10 [place] [address] [address] Feb, [place] [address] [address] Feb, Interstitial lung disease J84.9 and Bron chitis J40 [place] [address] [address] Feb, [place] [address] [address] Feb, Type 2 diabetes mellitus with complicati on E11.8 ; Impotence N52.9 ; Coronary atherosclerosis due to lipid rich plaque I25.83 ; FDC current use of insulin Z79.4 and Diabetic neuropathy, painful E11.40 [place] [address] [address] January, [place] [address] [address] January, Arm paresthesia, right R20.2 and Pain of right upper extremity M79.601 [place] [address] [address] Dec, Lumbar strain S39.012A [place] [address] [address] Nov, Diabetic neuropathy, painful E11.40 ; Re spiratory bronchiolitis interstitial lung disease J84.115 ; Pain of right upper extremity M79.601 and Arm paresthesia, right R20.2 [place] [address] [address] Nov, Diabetic neuropathy, painful E11.40 [place] [address] [address] Sep, Type 2 diabetes mellitus with complicati on E11.8 ; Impotence N52.9 ; Coronary atherosclerosis due to lipid rich plaque I25.83 ; 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 ; Diabetic neuropathy, painful E11.40 ; Chest pain R07.9 and Restless leg G25.81 [place] [address] [address] Sep, [place] [address] [address] Jul, COPD (chronic obstructive pulmonary dise ase) with acute bronchitis J44.[address] [address] Jun, Abdominal pain R10.9 ; Family history of colon cancer Z80.0 and Diverticulitis K57.[address] [address] Jun, Abdominal pain R10.9 and Diverticulitis K57.[address] [address] Apr, Diabetes with other specified manifestat ions, type II or unspecified type, not stated as uncontrolled 250.80 ; Coronary atherosclerosis of unspecified type of vessel, poarch or graft 414.00 ; Unspecified essential hypertension 401.9 ; Impotence of organic origin 607.84 ; Sleep apnea 780.57 and Interstitial lung disease [address] [address] Dec, [address] [address] Dec, [address] [address] Nov, [place] [address] [address] Nov, [address] [address] Nov, [address] [address] Nov, [address] [address] Nov, 2014 [facility] [place] [facility] [address] [facility] [id number] [place] [address] Nov, [facility] [place] [facility] [address] [id number] [place] [address] Nov, [facility] [place] [facility] [address] [id number] [place] [address] Nov, [facility] [place] [facility] [address] [id number] [place] [address] Nov, 2014 [facility] [place] [facility] [address] [id number] [place] [address] Nov, [facility] [place] [facility] [address] [id number] [place] [address] Oct, 2014 [facility] [place] [facility] [address] [id number] [place] [address] Oct, 2014 [facility] [place] [facility] [address] [id number] [place] [address] Oct, 2014 [facility] [place] [facility] [address] [id number] [place] [address] Oct, 2014 [facility] [place] [facility] [address] [id number] [place] [address] Oct, 2014 [facility] [place] [facility] [address] [id number] [place] [address] Oct, 2014 [facility] [place] [facility] [address] [id number] [place] [address] Oct, 2014 [facility] [place] [facility] [address] [id number] [place] [address] Oct, 2014 [facility] [place] [facility] [address] [id number] [place] [address] Oct, 2014 [facility] [place] [facility] [address] [id number] [place] [address] Oct, 2014 [facility] [place] [facility] [address] [id number] [place] [address] Oct, [facility] [place] [facility] [address] [id number] [place] [address] Jul, [facility] [place] [facility] [address] [id number] [place] [address] Jul, 2013 [facility] [place] [facility] [address] [id number] [place] [address] Jun, 2013 [facility] [place] [facility] [address] [id number] [place] [address] Jun, 2013 [facility] [place] [facility] [address] [facility] [id number] [place] [address] Jun, 2013 [facility] [place] [facility] [address] [id number] [place] [address] 17 Jun, 2013 [facility] [place] [facility] [address] [id number] [place] [address] 15 Jun, 2013 [facility] [place] [facility] [address] [id number] [place] [address] 15 Jun, 2013 [facility] [place] [facility] [address] [id number] [place] [address] 14 Jun, 2013 [facility] [place] [facility] [address] [id number] [place] [address] 14 Jun, 2013 [facility] [place] [facility] [address] [id number] [place] [address] 13 Jun, 2013 [facility] [place] [facility] [address] [id number] [place] [address] 13 Jun, 2013 [facility] [place] [facility] [address] [id number] [place] [address] 08 Jun, 2013 [facility] [place] [facility] [address] [id number] [place] [address] 08 Jun, 2013 [facility] [place] [facility] [address] [id number] [place] [address] 07 Jun, 2013 [facility] [place] [facility] [address] [id number] [place] [address] 07 Jun, 2013 [facility] [place] [facility] [address] [id number] [place] [address] 30 May, 2013 [facility] [place] [facility] [address] [id number] [place] [address] 30 May, 2014 [facility] [place] [facility] [address] [facility] [id number] [facility] [place] [address] May, [facility] [place] [facility] [address] [id number] [place] [address] May, [facility] [place] [facility] [address] [facility] [id number] [facility] [place] [address] May, [facility] [place] [facility] [address] [facility] [id number] [facility] [place] [address] May, [facility] [place] [facility] [address] [id number] [place] [address] Apr, [facility] [place] [facility] [address] [id number] [place] [address] Apr, [facility] [place] [facility] [address] [id number] [place] [address] Apr, [facility] [place] [facility] [address] [id number] [facility] [place] [address] Apr, [facility] [place] [facility] [address] [id number] [place] [address] Apr, [facility] [place] [facility] [address] [id number] [place] [address] Apr, [facility] [place] [facility] [address] [id number] [place] [address] Apr, [facility] [place] [facility] [address] [facility] [id number] [place] [address] Apr, [facility] [place] [facility] [address] [id number] [place] [address] Apr, [facility] [place] [facility] [address] [id number] [place] [address] Apr, [facility] [place] [facility] [address] [id number] [place] [address] Apr, [facility] [place] [facility] [address] [facility] [id number] [facility] [place] [address] Apr, [facility] [place] [facility] [address] [facility] [id number] [place] [address] Mar, [facility] [place] [facility] [address] [facility] [id number] [place] [address] Mar, [facility] [place] [facility] [address] [id number] [place] [address] Mar, [facility] [place] [facility] [address] [facility] [id number] [place] [address] Mar, [facility] [place] [facility] [address] [facility] [id number] [place] [address] Mar, [facility] [place] [facility] [address] [id number] [place] [address] Mar, [facility] [place] [facility] [address] [id number] [place] [address] Mar, [facility] [place] [facility] [address] [id number] [place] [address] Mar, [facility] [place] [facility] [address] [id number] [place] [address] Mar, [facility] [place] [facility] [address] [id number] [place] [address] Mar, [facility] [place] [facility] [address] [id number] [place] [address] Mar, [facility] [place] [facility] [address] [id number] [place] [address] Feb, [facility] [place] [facility] [address] [facility] [id number] [place] [address] Feb, [facility] [place] [facility] [address] [id number] [place] [address] Feb, [facility] [place] [facility] [address] [id number] [place] [address] Feb, [facility] [place] [facility] [address] [id number] [place] [address] Feb, [facility] [place] [facility] [address] [id number] [place] [address] Feb, [facility] [place] [facility] [address] [facility] [id number] [facility] [place] [address] Feb, [facility] [place] [facility] [address] [id number] [place] [address] Feb, [facility] [place] [facility] [address] [id number] [facility] [place] [address] Feb, [facility] [place] [facility] [address] [facility] [id number] [place] [address] Feb, [facility] [place] [facility] [address] [id number] [place] [address] January, [facility] [place] [facility] [address] [id number] [place] [address] January, [facility] [place] [facility] [address] [id number] [place] [address] January, [facility] [place] [facility] [address] [id number] [place] [address] January, [facility] [place] [facility] [address] [id number] [place] [address] January, [facility] [place] [facility] [address] [id number] [place] [address] January, [facility] [place] [facility] [address] [id number] [place] [address] January, [facility] [place] [facility] [address] [id number] [place] [address] January, [facility] [place] [facility] [address] [id number] [place] [address] January, [facility] [place] [facility] [address] [id number] [place] [address] January, [facility] [place] [facility] [address] [id number] [place] [address] January, [facility] [place] [facility] [address] [id number] [place] [address] January, [facility] [place] [facility] [address] [id number] [facility] [place] [address] January, [facility] [place] [facility] [address] [facility] [id number] [place] [address] January, [facility] [place] [facility] [address] [id number] [place] [address] January, [facility] [place] [facility] [address] [id number] [place] [address] January, [facility] [place] [facility] [address] [facility] [id number] [place] [address] Dec, [facility] [place] [facility] [address] [id number] [place] [address] Dec, [facility] [place] [facility] [address] [id number] [place] [address] Dec, [facility] [place] [facility] [address] [id number] [place] [address] Dec, [facility] [place] [facility] [address] [id number] [place] [address] Dec, [facility] [place] [facility] [address] [id number] [place] [address] Dec, [facility] [place] [facility] [address] [id number] [place] [address] Dec, [facility] [place] [facility] [address] [id number] [place] [address] Dec, [facility] [place] [facility] [address] [id number] [place] [address] Dec, [facility] [place] [facility] [address] [id number] [place] [address] Dec, [facility] [place] [facility] [address] [id number] [place] [address] Nov, [facility] [place] [facility] [address] [id number] [place] [address] Nov, [facility] [place] [facility] [address] [id number] [place] [address] 07 Oct, 2013 [facility] [place] [facility] [address] [id number] [place] [address] Oct, [facility] [place] [facility] [address] [id number] [place] [address] Oct, [facility] [place] [facility] [address] [id number] [place] [address] Sep, [facility] [place] [facility] [address] [id number] [place] [address] Sep, [facility] [place] [facility] [address] [id number] [place] [address] Sep, [facility] [place] [facility] [address] [id number] [place] [address] Sep, [facility] [place] [facility] [address] [id number] [place] [address] Sep, [facility] [place] [facility] [address] [id number] [place] [address] Sep, [facility] [place] [facility] [address] [id number] [place] [address] Sep, [facility] [place] [facility] [address] [id number] [place] [address] Sep, [facility] [place] [facility] [address] [id number] [place] [address] Sep, [facility] [place] [facility] [address] [id number] [place] [address] Sep, [facility] [place] [facility] [address] [id number] [place] [address] Sep, [facility] [place] [facility] [address] [id number] [place] [address] Sep, [facility] [place] [facility] [address] [id number] [place] [address] Aug, [facility] [place] [facility] [address] [id number] [place] [address] Aug, [facility] [place] [facility] [address] [id number] [place] [address] Aug, [facility] [place] [facility] [address] [id number] [place] [address] Aug, [facility] [place] [facility] [address] [id number] [place] [address] Jul, [facility] [place] [facility] [address] [id number] [place] [address] Jul, [facility] [place] [facility] [address] [id number] [place] [address] Jun, [facility] [place] [facility] [address] [id number] [place] [address] Jun, [facility] [place] [facility] [address] [id number] [place] [address] Jun, [facility] [place] [facility] [address] [id number] [place] [address] Jun, [facility] [place] [facility] [address] [id number] [place] [address] Jun, [facility] [place] [facility] [address] [id number] [place] [address] Jun, [facility] [place] [facility] [address] [id number] [place] [address] Jun, [facility] [place] [facility] [address] [id number] [place] [address] Jun, [facility] [place] [facility] [address] [id number] [place] [address] 24 May, 2012 [facility] [place] [facility] [address] [id number] [place] [address] 23 Sep, 2012 [facility] [place] [facility] [address] [id number] [place] [address] 18 Sep, 2012 [facility] [place] [facility] [address] [id number] [place] [address] 13 May, 2012 [facility] [place] [facility] [address] [id number] [place] [address] May, 2012 [facility] [place] [facility] [address] [id number] [facility] [place] [address] May, [facility] [place] [facility] [address] [facility] [id number] [place] [address] May, [facility] [place] [facility] [address] [id number] [place] [address] Apr, [facility] [place] [facility] [address] [id number] [place] [address] Apr, [facility] [place] [facility] [address] [id number] [place] [address] Apr, [facility] [place] [facility] [address] [id number] [place] [address] Apr, [facility] [place] [address] [id number] [place] [address] Apr, [facility] [address] [id number] [place] [address] Apr, [facility] [address] [id number] [place] [address] Apr, [facility] [address] [id number] [place] [address] Mar, [facility] [address] [id number] [place] [address] Mar, [facility] [address] [id number] [place] [address] Mar, [facility] [address] [id number] [place] [address] Mar, [facility] [address] [id number] [place] [address] Mar, [facility] [address] [id number] [place] [address] Mar, [facility] [address] [id number] [place] [address] Mar, [facility] [address] [id number] [place] [address] Mar, [facility] [address] [id number] [place] [address] Feb, [facility] [address] [id number] [place] [address] Feb, [facility] [address] [id number] [place] [address] Feb, [facility] [address] [id number] [place] [address] January, [facility] [address] [id number] [place] [address] January, [facility] [address] [id number] [place] [address] January, [facility] [address] [id number] [place] [address] January, [facility] [address] [id number] [place] [address] January, [facility] [address] [id number] [place] [address] January, [facility] [address] [id number] [place] [address] January, [facility] [address] [id number] [place] [address] January, [facility] [address] [id number] [place] [address] 29 Dec, 2012 [facility] [address] [id number] [place] [address] Dec, [facility] [address] [id number] [place] [address] Dec, [facility] [address] [id number] [place] [address] 19 Dec, 2012 [facility] [address] [id number] [place] [address] 09 Dec, 2012 [facility] [address] [facility] [id number] [place] [address] 22 Nov, 2012 [facility] [address] [id number] [facility] [place] [address] 21 Nov, 2012 [facility] [address] [id number] [place] [address] 19 Nov, 2012 [facility] [address] [id number] [place] [address] 18 Nov, 2012 [facility] [address] [facility] [id number] [facility] [place] [address] 18 Nov, 2012 [facility] [address] [id number] [place] [address] 14 Nov, 2012 [facility] [address] [id number] [place] [address] Nov, [facility] [address] [id number] [place] [address] Nov, [facility] [address] [id number] [place] [address] Oct, [facility] [address] [id number] [place] [address] Oct, [facility] [address] [id number] [place] [address] 12 Oct, 2012 [facility] [address] [id number] [place] [id number] 08 Oct, 2012 [facility] [address] [id number] [place] [address] 07 Oct, 2012 [facility] [address] [id number] [place] [address] 07 Oct, 2012 [facility] [address] [id number] [place] [address] 05 Oct, 2012 [facility] [address] [id number] [place] [address] 04 Oct, 2012 [facility] [address] [id number] [place] [address] Oct, [facility] [address] [id number] [place] [address] Sep, [facility] [address] [id number] [place] [address] Sep, [facility] [address] [id number] [place] [address] Sep, [facility] [address] [id number] [place] [address] Sep, [facility] [address] [id number] [place] [address] Sep, [facility] [address] [id number] [place] [address] Sep, [facility] [address] [id number] [place] [address] Aug, [facility] [address] [id number] [place] [address] Aug, [facility] [address] [id number] [place] [address] Aug, [facility] [address] [id number] [place] [address] Aug, [facility] [address] [id number] [place] [address] Aug, [facility] [address] [id number] [place] [address] 18 Aug, 2012 [facility] [address] [id number] [place] [address] Aug, [facility] [address] [id number] [place] [address] Aug, [facility] [address] [id number] [place] [address] 07 Aug, 2012 [facility] [address] [id number] [place] [address] Jul, [facility] [id number] [place] [address] Jul, [facility] [id number] [place] [address] Jul, [facility] [id number] [place] [address] Jul, [facility] [address] [address] Nov, [facility] [address] [address] Sep, [facility] [address] [address] Aug, [facility] [address] [address] Aug, [facility] [address] [address] Aug, [facility] [id number] [place] [address] Jul, IMMUNIZATIONS No Known Immunizations SOCIAL HISTORY Never Assessed REASON FOR VISIT PLAN OF CARE VITAL SIGNS Height 74 in 2013-12-26 Weight 255.6 lbs 2013-12-26 Temperature 97.4 degrees Fahrenheit 2013-12-26 Heart Rate 84 bpm 2013-12-26 Respiratory Rate 18 2013-12-26 Blood pressure systolic 120 mmHg 2013-12-26 Blood pressure diastolic 78 mmHg 2013-12-26 MEDICATIONS Unknown Medications RESULTS No Results PROCEDURES [...] 05/2005 [facility] Surgical History Colonoscopy Elijah (1 Polyp) repeat 5 year s 2019 2014 Surgical History right rotator cuff surgery 06/27/2016 Hospitalization History Overdosed on Clonazepam #35. Lori mcduffiee 03/2014 Hospitalization History Overdosed on Xanax 07/2012 Hospitalization History Hypostension-medication side effect-[facility] 03/13/16
--- OUTSIDE RECORDS SUMMARY | 2020-01-01 11:11 | XMS REPORT ---
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 Z79.4 Active 562644439 Problem Abdominal pain R10.9 Active 13454 001 Problem Change in bowel habit R19.4 Active 21852545 Problem Coronary atherosclerosis due to lipid rich plaque I25.83 Active 03850341 Problem Type 2 diabetes mellitus with complication E11.8 Active 59996425 Problem Impotence N52.9 Active 002893774 Problem Family history of colon cancer Z80.0 Active 265550965 Problem Diabetic neuropathy, painful E11.40 A ctive 998314822 Problem Arm paresthesia, right R20.2 Active 15737383 Problem Gastroesophageal reflux disease without esophagitis K21.9 Active 180691118 Problem Drug abuse, opioid type F11.10 Active 9234751 Problem COPD exacerbation J44.1 Active 19 3455517 Problem Obstructive sleep apnea syndrome G47.33 Active 46753266 Problem Diverticulitis K57.92 Active 36419 6006 Problem Pain of right upper extremity M79.601 Active 658576568 Problem Respiratory bronchiolitis interstitial lung disease J84.115 Active 689954634 Problem Hypoxia R09.02 Active 703494587 Problem Interstitial lung disease J84.9 Acti ve [id number] ALLERGIES No Information ENCOUNTERS Encounter Location Date Diagnosis [facility] [address] [id number] [place] [address] Aug, [facility] [address] [id number] [place] [address] Aug, Diabetic neuropathy, painful E11.40 ; In terstitial lung disease J84.9 ; Chronic cough R05 ; Type 2 diabetes mellitus with complication E11.8 and group home current use of insulin Z79.4 [place] [address] [address] Jul, [facility] [address] [address] Jul, [place] [address] [address] Jul, Diabetic neuropathy, painful E11.40 [place] [address] [address] Jul, Type 2 diabetes mellitus with complicati on E11.8 [place] [address] [address] Jun, Diabetic neuropathy, painful E11.40 [place] [address] [address] Jun, [facility] [address] [facility] [id number] [address] [place] [address] Jun, Type 2 diabetes mellitus wit h complication E11.8 ; Other viral agents as the cause of diseases classified elsewhere B97.89 ; Acute upper respiratory infection, unspecified J06.9 ; Acute recurrent maxillary sinusitis J01.01 ; Sore throat J02.9 and Headache R51 [place] [address] [address] Jun, Right lower quadrant abdominal pain R10. 31 and Type 2 diabetes mellitus with complication E11.8 [place] [address] [address] May, Diabetic neuropathy, painful E11.[address] [address] May, COPD exacerbation J44.1 and Type 2 diabe chidi mellitus with complication E11.8 [place] [address] [address] Apr, Diabetic neuropathy, painful E11.40 [place] [address] [place] [id number] [place] [address] Apr, Diabetic neuropathy, painful E11.40 [facility] [place] [address] [address] [place] [id number] [place] [address] Mar, Bronchitis J40 [place] [address] [address] January, Type 2 diabetes mellitus with complicati [...] pain M79.622 and Cervical spinal stenosis M48.02 [facility] IN [place] [id number] [place] [address] January, Viral gastroenteritis A08.4 [place] [address] [address] Dec, Diabetic neuropathy, painful E11.40 [place] [id number] [place] [id number] Oct, [address] [address] Oct, Acute right-sided weakness M62.89 and Sl urring of speech R47.81 [place] [address] [place] [id number] [place] [address] Sep, Type 2 diabetes mellitus with complicati on E11.8 ; Diabetic neuropathy, painful E11.40 ; Impotence N52.9 ; Coronary atherosclerosis due to lipid rich plaque I25.83 ; intermediate card tender current use of insulin Z79.4 ; Interstitial lung disease J84.9 ; Hypoxia R09.02 ; Essential hypertension I10 and Gastroesophageal reflux disease without esophagitis K21.9 [facility] [place] [address] [address] [place] [id number] [address] 07 Sep, 2016 Bronchitis J40 [facility] [address] [facility] [id number] [place] [address] Aug, Gastroenteritis and colitis, viral A08.4 [facility] [address] [address] Aug, [facility] [address] [address] Jun, Type 2 diabetes mellitus with complicati on E11.8 ; Diabetic neuropathy, painful E11.40 ; Impotence N52.9 ; Coronary atherosclerosis due to lipid rich plaque I25.83 ; intermediate card tender current use of insulin Z79.4 ; Interstitial lung disease J84.9 ; Hypoxia R09.02 and Essential hypertension I10 [facility] [address] [address] 30 May, 2016 Bronchitis J40 [facility] [address] [address] 29 May, 2016 [facility] [address] [address] 20 May, 2016 Pain of right upper extremity M79.601 [facility] [address] [address] May, [facility] [address] [address] 15 May, 2016 [facility] [address] [address] 07 May, 2016 Right hand pain M79.641 [facility] [address] [address] Apr, [facility] [address] [address] Apr, [facility] [address] [address] Mar, [facility] [address] [address] Mar, Essential hypertension I10 [place] [address] [address] Feb, [place] [address] [address] Feb, Interstitial lung disease J84.9 and Bron chitis J40 [place] [address] [address] Feb, [place] [address] [address] Feb, Type 2 diabetes mellitus with complicati on E11.8 ; Impotence N52.9 ; Coronary atherosclerosis due to lipid rich plaque I25.83 ; intermediate card tender current use of insulin Z79.4 and Diabetic neuropathy, painful E11.40 [place] [address] [address] January, [place] [address] [address] January, Arm paresthesia, right R20.2 and Pain of right upper extremity M79.601 [place] [address] [address] Dec, Lumbar strain S39.012A [place] [address] [address] Nov, Diabetic neuropathy, painful E11.40 ; Re spiratory bronchiolitis interstitial lung disease J84.115 ; Pain of right upper extremity M79.601 and Arm paresthesia, right R20.2 [place] [address] [address] Nov, Diabetic neuropathy, painful E11.40 [place] [address] [address] Sep, Type 2 diabetes mellitus with complicati on E11.8 ; Impotence N52.9 ; Coronary atherosclerosis due to lipid rich plaque I25.83 ; intermediate card tender current use of insulin Z79.4 ; Diabetic neuropathy, painful E11.40 ; Chest pain R07.9 and Restless leg G25.81 [place] [address] [address] Sep, [place] [address] [address] Jul, COPD (chronic obstructive pulmonary dise ase) with acute bronchitis J44.[address] [address] Jun, Abdominal pain R10.9 ; Family history of colon cancer Z80.0 and Diverticulitis K57.[address] [address] Jun, Abdominal pain R10.9 and Diverticulitis K57.[address] [address] Apr, Diabetes with other specified manifestat ions, type II or unspecified type, not stated as uncontrolled 250.80 ; Coronary atherosclerosis of unspecified type of vessel, salt river or graft 414.00 ; Unspecified essential hypertension 401.9 ; Impotence of organic origin 607.84 ; Sleep apnea 780.57 and Interstitial lung disease 515 [place] [address] [address] Dec, [address] [address] Dec, [place] [address] [address] Nov, [place] [address] [address] Nov, [place] [address] [address] Nov, [address] [address] Nov, [address] [address] Nov, 2014 [facility] [place] [facility] [address] [id number] [place] [address] Nov, [facility] [place] [facility] [address] [id number] [place] [address] Nov, 2014 [facility] [place] [facility] [address] [id number] [place] [address] Nov, 2014 [facility] [place] [facility] [address] [id number] [place] [address] Nov, 2014 [facility] [place] [facility] [address] [id number] [place] [address] Nov, 2014 [facility] [place] [facility] [address] [id number] [place] [address] Oct, 2014 [facility] [place] [facility] [address] [id number] [place] [address] Oct, 2014 [facility] [place] [facility] [address] [id number] [place] [address] Oct, 2014 [facility] [place] [facility] [address] [id number] [place] [address] Oct, 2014 [facility] [place] [facility] [address] [id number] [place] [address] Oct, 2014 [facility] [place] [facility] [address] [id number] [place] [address] Oct, 2014 [facility] [place] [facility] [address] [id number] [place] [address] Oct, 2014 [facility] [place] [facility] [address] [id number] [place] [address] Oct, 2014 [facility] [place] [facility] [address] [id number] [place] [address] Oct, 2014 [facility] [place] [facility] [address] [id number] [place] [address] Oct, 2014 [facility] [place] [facility] [address] [id number] [place] [address] Oct, [facility] [place] [facility] [address] [facility] [id number] [place] [address] Jul, 2013 [facility] [place] [facility] [address] [id number] [place] [address] Jul, 2013 [facility] [place] [facility] [address] [id number] [place] [address] Jun, 2013 [facility] [place] [facility] [address] [id number] [place] [address] Jun, 2013 [facility] [place] [facility] [address] [id number] [place] [address] Jun, 2013 [facility] [place] [facility] [address] [id number] [place] [address] Jun, 2013 [facility] [place] [facility] [address] [id number] [place] [address] 15 Jun, 2014 [facility] [place] [facility] [address] [id number] [place] [address] 15 Jun, 2013 [facility] [place] [facility] [address] [id number] [place] [address] 14 Jun, 2014 [facility] [place] [facility] [address] [id number] [place] [address] 14 Jun, 2014 [facility] [place] [facility] [address] [id number] [place] [address] Jun, 2013 [facility] [place] [facility] [address] [id number] [place] [address] Jun, [facility] [place] [facility] [address] [id number] [place] [address] 08 Jun, 2013 [facility] [place] [facility] [address] [id number] [place] [address] 08 Jun, 2014 [facility] [place] [facility] [address] [id number] [place] [address] Jun, 2013 [facility] [place] [facility] [address] [id number] [place] [address] Jun, 2013 [facility] [place] [facility] [address] [id number] [place] [address] May, 2013 [facility] [place] [facility] [address] [id number] [facility] [place] [address] 30 May, 2014 [facility] [place] [facility] [address] [facility] [id number] [facility] [place] [address] May, 2013 [facility] [place] [facility] [address] [id number] [facility] [place] [address] May, 2013 [facility] [place] [facility] [address] [facility] [id number] [place] [address] May, 2013 [facility] [place] [facility] [address] [facility] [id number] [facility] [place] [address] May, [facility] [place] [facility] [address] [id number] [facility] [place] [address] Apr, [facility] [place] [facility] [address] [id number] [place] [address] Apr, [facility] [place] [facility] [address] [id number] [facility] [place] [address] Apr, [facility] [place] [facility] [address] [id number] [place] [address] Apr, [facility] [place] [facility] [address] [id number] [place] [address] Apr, [facility] [place] [facility] [address] [id number] [place] [address] Apr, [facility] [place] [facility] [address] [id number] [place] [address] Apr, [facility] [place] [facility] [address] [id number] [place] [address] Apr, [facility] [place] [facility] [address] [id number] [place] [address] Apr, [facility] [place] [facility] [address] [id number] [place] [address] Apr, [facility] [place] [facility] [address] [id number] [place] [address] Apr, [facility] [place] [facility] [address] [id number] [facility] [place] [address] Apr, [facility] [place] [facility] [address] [id number] [facility] [place] [address] Mar, [facility] [place] [facility] [address] [facility] [id number] [place] [address] Mar, [facility] [place] [facility] [address] [id number] [place] [address] Mar, [facility] [place] [facility] [address] [facility] [id number] [place] [address] Mar, [facility] [place] [facility] [address] [facility] [id number] [facility] [place] [address] Mar, [facility] [place] [facility] [address] [id number] [place] [address] Mar, [facility] [place] [facility] [address] [id number] [place] [address] Mar, [facility] [place] [facility] [address] [id number] [place] [address] Mar, [facility] [place] [facility] [address] [facility] [id number] [place] [address] Mar, [facility] [place] [facility] [address] [id number] [place] [address] Mar, [facility] [place] [facility] [address] [id number] [place] [address] Mar, [facility] [place] [facility] [address] [id number] [place] [address] Feb, [facility] [place] [facility] [address] [facility] [id number] [place] [address] Feb, [facility] [place] [facility] [address] [id number] [place] [address] Feb, [facility] [place] [facility] [address] [id number] [place] [address] Feb, [facility] [place] [facility] [address] [id number] [place] [address] Feb, [facility] [place] [facility] [address] [id number] [place] [address] Feb, [facility] [place] [facility] [address] [id number] [place] [address] Feb, [facility] [place] [facility] [address] [id number] [place] [address] Feb, [facility] [place] [facility] [address] [id number] [place] [address] Feb, [facility] [place] [facility] [address] [facility] [id number] [place] [address] Feb, [facility] [place] [facility] [address] [id number] [place] [address] January, [facility] [place] [facility] [address] [id number] [place] [address] January, [facility] [place] [facility] [address] [id number] [place] [address] January, [facility] [place] [facility] [address] [id number] [place] [address] January, [facility] [place] [facility] [address] [id number] [place] [address] January, [facility] [place] [facility] [address] [id number] [place] [address] January, [facility] [place] [facility] [address] [id number] [place] [address] January, [facility] [place] [facility] [address] [id number] [place] [address] January, [facility] [place] [facility] [address] [id number] [place] [address] January, [facility] [place] [facility] [address] [id number] [place] [address] January, [facility] [place] [facility] [address] [id number] [place] [address] January, [facility] [place] [facility] [address] [id number] [place] [address] January, [facility] [place] [facility] [address] [facility] [id number] [place] [address] January, [facility] [place] [facility] [address] [id number] [place] [address] January, [facility] [place] [facility] [address] [id number] [place] [address] January, [facility] [place] [facility] [address] [id number] [place] [address] January, [facility] [place] [facility] [address] [facility] [id number] [place] [address] Dec, [facility] [place] [facility] [address] [id number] [place] [address] Dec, [facility] [place] [facility] [address] [id number] [place] [address] Dec, [facility] [place] [facility] [address] [id number] [place] [address] Dec, [facility] [place] [facility] [address] [id number] [place] [address] Dec, [facility] [place] [facility] [address] [id number] [place] [address] Dec, [facility] [place] [facility] [address] [id number] [place] [address] Dec, [facility] [place] [facility] [address] [id number] [place] [address] Dec, [facility] [place] [facility] [address] [id number] [place] [address] Dec, [facility] [place] [facility] [address] [id number] [place] [address] Dec, [facility] [place] [facility] [address] [id number] [place] [address] Nov, [facility] [place] [facility] [address] [id number] [place] [address] Nov, [facility] [place] [facility] [address] [id number] [place] [address] 07 Oct, 2013 [facility] [place] [facility] [address] [facility] [id number] [place] [address] Oct, [facility] [place] [facility] [address] [id number] [place] [address] Oct, [facility] [place] [facility] [address] [id number] [place] [address] Sep, [facility] [place] [facility] [address] [id number] [place] [address] Sep, [facility] [place] [facility] [address] [id number] [place] [address] Sep, [facility] [place] [facility] [address] [id number] [place] [address] Sep, [facility] [place] [facility] [address] [id number] [place] [address] Sep, [facility] [place] [facility] [address] [id number] [place] [address] Sep, [facility] [place] [facility] [address] [id number] [place] [address] Sep, [facility] [place] [facility] [address] [id number] [place] [address] Sep, [facility] [place] [facility] [address] [id number] [place] [address] Sep, [facility] [place] [facility] [address] [id number] [place] [address] Sep, [facility] [place] [facility] [address] [id number] [place] [address] Sep, [facility] [place] [facility] [address] [id number] [place] [address] Sep, [facility] [place] [facility] [address] [id number] [place] [address] Aug, [facility] [place] [facility] [address] [id number] [place] [address] Aug, [facility] [place] [facility] [address] [id number] [place] [address] Aug, 2012 [facility] [place] [facility] [address] [id number] [place] [address] Aug, [facility] [place] [facility] [address] [id number] [place] [address] Jul, [facility] [place] [facility] [address] [id number] [place] [address] Jul, [facility] [place] [facility] [address] [id number] [place] [address] Jun, [facility] [place] [facility] [address] [id number] [place] [address] Jun, [facility] [place] [facility] [address] [id number] [place] [address] Jun, [facility] [place] [facility] [address] [id number] [place] [address] Jun, [facility] [place] [facility] [address] [id number] [place] [address] Jun, [facility] [place] [facility] [address] [id number] [place] [address] Jun, [facility] [place] [facility] [address] [id number] [place] [address] Jun, [facility] [place] [facility] [address] [id number] [place] [address] Jun, [facility] [place] [facility] [address] [id number] [place] [address] 24 May, 2012 [facility] [place] [facility] [address] [id number] [place] [address] 23 Sep, 2012 [facility] [place] [facility] [address] [id number] [place] [address] 18 Sep, 2012 [facility] [place] [facility] [address] [id number] [place] [address] 13 Sep, 2012 [facility] [place] [facility] [address] [id number] [facility] [place] [address] May, 2012 [facility] [place] [facility] [address] [id number] [facility] [place] [address] May, [facility] [place] [facility] [address] [facility] [id number] [facility] [place] [address] May, [facility] [place] [facility] [address] [id number] [facility] [place] [address] Apr, [facility] [place] [facility] [address] [facility] [id number] [place] [address] Apr, [facility] [place] [facility] [address] [facility] [id number] [place] [address] Apr, [facility] [place] [facility] [address] [facility] [id number] [place] [address] Apr, [facility] [place] [facility] [address] [id number] [facility] [place] [address] Apr, [facility] [place] [facility] [address] [id number] [facility] [place] [address] Apr, [facility] [place] [facility] [address] [facility] [id number] [facility] [place] [address] Apr, [facility] [place] [facility] [address] [id number] [facility] [place] [address] Mar, [facility] [place] [facility] [address] [id number] [facility] [place] [address] Mar, [facility] [place] [facility] [address] [id number] [facility] [place] [address] Mar, [facility] [place] [facility] [address] [facility] [id number] [facility] [place] [address] Mar, [facility] [place] [facility] [address] [id number] [facility] [place] [address] Mar, [facility] [place] [facility] [address] [facility] [id number] [facility] [place] [address] Mar, [facility] [place] [facility] [address] [id number] [facility] [place] [address] Mar, [facility] [place] [facility] [address] [id number] [place] [address] Mar, [facility] [place] [facility] [address] [id number] [place] [address] Feb, [facility] [place] [facility] [address] [id number] [place] [address] Feb, [facility] [place] [facility] [address] [id number] [place] [address] Feb, [facility] [place] [facility] [address] [id number] [place] [address] January, [facility] [place] [facility] [address] [id number] [place] [address] January, [facility] [place] [facility] [address] [id number] [place] [address] January, [facility] [facility] [address] [id number] [place] [address] January[facility] [address] [id number] [place] [address] January, [facility] [address] [id number] [place] [address] January, [facility] [address] [id number] [place] [address] January, [facility] [address] [id number] [place] [address] January, [facility] [address] [id number] [place] [address] Dec, [facility] [address] [id number] [place] [address] Dec, [facility] [address] [id number] [place] [address] Dec, [facility] [address] [id number] [place] [address] Dec, [facility] [address] [id number] [place] [address] Dec, [facility] [address] [facility] [id number] [place] [address] 22 Nov, 2012 [facility] [address] [id number] [place] [address] 21 Nov, 2012 [facility] [address] [id number] [place] [address] 19 Nov, 2012 [facility] [address] [id number] [place] [address] 18 Nov, 2012 [facility] [address] [facility] [id number] [place] [address] 18 Nov, 2012 [facility] [address] [id number] [place] [address] 14 Nov, 2012 [facility] [address] [id number] [place] [address] Nov, [facility] [address] [id number] [place] [address] Nov, [facility] [address] [id number] [place] [address] Oct, [facility] [address] [id number] [place] [address] 21 Oct, 2012 [facility] [address] [id number] [place] [address] 12 Oct, 2012 [facility] [address] [id number] [place] [address] 08 Oct, 2012 [facility] [address] [id number] [place] [address] 07 Oct, 2012 [facility] [address] [id number] [place] [address] 07 Oct, 2012 [facility] [address] [id number] [place] [address] 05 Oct, 2012 [facility] [address] [id number] [place] [address] 04 Oct, 2012 [facility] [address] [id number] [place] [address] 04 Oct, 2012 [facility] [address] [id number] [place] [address] Sep, [facility] [address] [id number] [place] [address] Sep, [facility] [address] [id number] [place] [address] Sep, [facility] [address] [id number] [place] [address] Sep, [facility] [address] [id number] [place] [address] Sep, [facility] [address] [id number] [place] [address] Sep, [facility] [address] [id number] [place] [address] Aug, [facility] [address] [id number] [place] [address] Aug, [facility] [address] [id number] [place] [address] Aug, [facility] [address] [id number] [place] [address] Aug, [facility] [address] [id number] [place] [address] Aug, [facility] [address] [id number] [place] [address] Aug, [facility] [address] [id number] [place] [address] Aug, [facility] [address] [id number] [place] [address] Aug, [facility] [address] [id number] [place] [address] Aug, [facility] [address] [id number] [place] [address] Jul, [facility] [id number] [place] [address] Jul, [facility] [address] [address] Jul, [facility] [address] [address] Jul, [facility] [address] [address] Nov, [facility] [address] [address] Sep, [facility] [address] [address] Aug, [facility] [address] [address] Aug, [facility] [address] [address] Aug, [facility] [address] [address] Jul, IMMUNIZATIONS No Known Immunizations SOCIAL HISTORY [...]
--- NOTE | 2020-01-01 11:12 | Progress Note-Post Operative ---
Post-Operative Progess Note Surgeon (s)/Placement Manager (s) Surgeon NONI CAMPBELL MD Placement Manager: none Pre-Operative Diagnosis left lung ca, bilateral feet osteomyelitis. Post-Operative Diagnosis same Procedure & Operative Findings Date of Procedure 01/01/20 Procedure Performed/Findings placement left subclavian groshong implantable catheter under flouroscopy. Anesthesia Type mac with local Estimated Blood Loss Estimated blood loss (mL): minimal Specimens/Packing Specimens Removed none NONI CAMPBELL MD Jan 01, 2020 11:12
--- OUTSIDE RECORDS SUMMARY | 2020-01-01 11:12 | XMS REPORT ---
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10 Active 7795432 Problem COPD exacerbation J44.1 Active 19 6258651 Problem Obstructive sleep apnea syndrome G47.33 Active 98442326 Problem Diverticulitis K57.92 Active 87028 6006 Problem Pain of right upper extremity M79.601 Active 675805282 Problem Respiratory bronchiolitis interstitial lung disease J84.115 Active 824922678 Problem Hypoxia R09.02 Active 598692470 Problem Interstitial lung disease J84.9 Acti ve [id number] ALLERGIES No Information ENCOUNTERS Encounter Location Date Diagnosis [facility] [address] [id number] [place] [address] Aug, [facility] [address] [id number] [place] [address] Aug, Diabetic neuropathy, painful E11.40 ; In terstitial lung disease J84.9 ; Chronic cough R05 ; Type 2 diabetes mellitus with complication E11.8 and [facility] current use of insulin Z79.4 [facility] [address] [address] Jul, [facility] [address] [address] Jul, [facility] [address] [address] Jul, Diabetic neuropathy, painful E11.40 [place] [address] [address] Jul, Type 2 diabetes mellitus with complicati on E11.8 [place] [address] [address] Jun, Diabetic neuropathy, painful E11.40 [place] [address] [address] Jun, [facility] [address] [facility] [id number] [address] [place] [address] Jun, Type 2 diabetes mellitus wit h complication E11.8 ; Other viral agents as the cause of diseases classified elsewhere B97.89 ; Acute upper respiratory infection, unspecified J06.9 ; Acute recurrent maxillary sinusitis J01.01 ; Sore throat J02.9 and Headache R51 [address] [address] Jun, Right lower quadrant abdominal pain R10. 31 and Type 2 diabetes mellitus with complication E11.8 [place] [address] [address] May, Diabetic neuropathy, painful E11.[address] [address] May, COPD exacerbation J44.1 and Type 2 diabe chidi mellitus with complication E11.8 [place] [address] [address] Apr, Diabetic neuropathy, painful E11.40 [place] [address] [place] [id number] [place] [address] Apr, Diabetic neuropathy, painful E11.40 [facility] [place] [address] [address] Mar, Bronchitis J40 [place] [address] [address] January, Type 2 diabetes mellitus with complicati on E11.8 ; Diabetic neuropathy, painful E11.40 ; Impotence N52.9 ; Coronary atherosclerosis due to lipid rich plaque I25.83 ; 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 ; Interstitial lung disease J84.9 ; Hypoxia R09.02 ; Essential hypertension I10 ; Gastroesophageal reflux disease without esophagitis K21.9 ; Left upper arm pain M79.622 and Cervical spinal stenosis M48.02 [facility] [place] [address] [address] January, Viral gastroenteritis A08.[address] [address] Dec, Diabetic neuropathy, painful E11.40 [place] [address] [id number] Oct, [address] [address] Oct, Acute right-sided weakness M62.89 and Sl urring of speech R47.[address] [address] Sep, Type 2 diabetes mellitus with complicati on E11.8 ; Diabetic neuropathy, painful E11.40 ; Impotence N52.9 ; Coronary atherosclerosis due to lipid rich plaque I25.83 ; [facility] current use of insulin Z79.4 ; Interstitial lung disease J84.9 ; Hypoxia R09.02 ; Essential hypertension I10 and Gastroesophageal reflux disease without esophagitis K21.9 [facility] [place] [id number] [place] [address] Sep, Bronchitis J40 [facility] [address] [facility] [id number] [address] [address] Aug, Gastroenteritis and colitis, viral A08.4 [facility] [address] [address] Aug, [facility] [address] [address] Jun, Type 2 diabetes mellitus with complicati on E11.8 ; Diabetic neuropathy, painful E11.40 ; Impotence N52.9 ; Coronary atherosclerosis due to lipid rich plaque I25.83 ; 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 ; Interstitial lung disease J84.9 ; Hypoxia R09.02 and Essential hypertension I10 [facility] [address] [address] 30 May, 2016 Bronchitis J40 [facility] [address] [address] 29 May, 2016 [facility] [address] [address] May, Pain of right upper extremity M79.601 [facility] [address] [address] May, [facility] [address] [address] 15 May, 2016 [facility] [address] [address] 07 May, 2016 Right hand pain M79.641 [facility] [address] [address] Apr, [facility] [address] [address] Apr, [facility] [address] [address] Mar, [facility] [address] [address] Mar, Essential hypertension I10 [place] [address] [address] Feb, [place] [address] [address] Feb, Interstitial lung disease J84.9 and Bron chitis J40 [place] [address] [address] Feb, [place] [address] [address] Feb, Type 2 diabetes mellitus with complicati on E11.8 ; Impotence N52.9 ; Coronary atherosclerosis due to lipid rich plaque I25.83 ; [facility] current use of insulin Z79.4 and Diabetic neuropathy, painful E11.40 [place] [address] [address] January, [place] [address] [address] January, Arm paresthesia, right R20.2 and Pain of right upper extremity M79.601 [place] [address] [address] Dec, Lumbar strain S39.012A [place] [address] [address] Nov, Diabetic neuropathy, painful E11.40 ; Re spiratory bronchiolitis interstitial lung disease J84.115 ; Pain of right upper extremity M79.601 and Arm paresthesia, right R20.2 [place] [address] [address] Nov, Diabetic neuropathy, painful E11.40 [place] [address] [address] Sep, Type 2 diabetes mellitus with complicati on E11.8 ; Impotence N52.9 ; Coronary atherosclerosis due to lipid rich plaque I25.83 ; 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 ; Diabetic neuropathy, painful E11.40 ; Chest pain R07.9 and Restless leg G25.81 [place] [address] [address] Sep, [place] [address] [address] Jul, COPD (chronic obstructive pulmonary dise ase) with acute bronchitis J44.0 [place] [address] [address] Jun, Abdominal pain R10.9 ; Family history of colon cancer Z80.0 and Diverticulitis K57.92 [place] [address] [address] Jun, Abdominal pain R10.9 and Diverticulitis K57.92 [place] [address] [address] Apr, Diabetes with other specified manifestat ions, type II or unspecified type, not stated as uncontrolled 250.80 ; Coronary atherosclerosis of unspecified type of vessel, buckland or graft 414.00 ; Unspecified essential hypertension 401.9 ; Impotence of organic origin 607.84 ; Sleep apnea 780.57 and Interstitial lung disease 515 [place] [address] [address] Dec, [place] [address] [address] Dec, [place] [address] [address] Nov, [place] [address] [address] Nov, [place] [address] [address] Nov, [place] [address] [address] Nov, [place] [address] [address] Nov, [facility] [place] [facility] [address] [id number] [place] [address] Nov, 2014 [facility] [place] [facility] [address] [id number] [place] [address] Nov, 2014 [facility] [place] [facility] [address] [id number] [place] [address] Nov, 2014 [facility] [place] [facility] [address] [id number] [place] [address] Nov, 2014 [facility] [place] [facility] [address] [id number] [place] [address] Nov, 2014 [facility] [place] [facility] [address] [id number] [place] [address] Oct, 2014 [facility] [place] [facility] [address] [id number] [place] [address] Oct, 2014 [facility] [place] [facility] [address] [id number] [place] [address] Oct, 2014 [facility] [place] [facility] [address] [id number] [place] [address] Oct, 2014 [facility] [place] [facility] [address] [id number] [place] [address] Oct, 2014 [facility] [place] [facility] [address] [id number] [place] [address] Oct, 2014 [facility] [place] [facility] [address] [id number] [place] [address] Oct, 2014 [facility] [place] [facility] [address] [id number] [place] [address] Oct, 2014 [facility] [place] [facility] [address] [id number] [place] [address] Oct, 2014 [facility] [place] [facility] [address] [id number] [place] [address] Oct, 2014 [facility] [place] [facility] [address] [id number] [place] [address] Oct, 2014 [facility] [place] [facility] [address] [id number] [place] [address] Jul, [facility] [place] [facility] [address] [id number] [place] [address] Jul, 2013 [facility] [place] [facility] [address] [id number] [place] [address] 29 Jun, 2013 [facility] [place] [facility] [address] [id number] [place] [address] 29 Jun, 2013 [facility] [place] [facility] [address] [id number] [place] [address] 17 Jun, 2014 [facility] [place] [facility] [address] [id number] [place] [address] 17 Jun, 2014 [facility] [place] [facility] [address] [id number] [place] [address] 15 Jun, 2014 [facility] [place] [facility] [address] [id number] [place] [address] 15 Jun, 2014 [facility] [place] [facility] [address] [id number] [place] [address] 14 Jun, 2013 [facility] [place] [facility] [address] [id number] [place] [address] 14 Jun, 2014 [facility] [place] [facility] [address] [id number] [place] [address] 13 Jun, 2013 [facility] [place] [facility] [address] [id number] [place] [address] 13 Jun, 2013 [facility] [place] [facility] [address] [id number] [place] [address] 08 Jun, 2013 [facility] [place] [facility] [address] [id number] [place] [address] 08 Jun, 2014 [facility] [place] [facility] [address] [id number] [place] [address] Jun, 2013 [facility] [place] [facility] [address] [id number] [place] [address] Jun, 2013 [facility] [place] [facility] [address] [id number] [place] [address] 30 May, 2014 [facility] [place] [facility] [address] [id number] [facility] [address] 30 May, 2013 [facility] [place] [facility] [address] [id number] [place] [address] May, 2013 [facility] [place] [facility] [address] [facility] [id number] [place] [address] May, 2013 [facility] [place] [facility] [address] [id number] [place] [address] May, 2013 [facility] [place] [facility] [address] [facility] [id number] [place] [address] May, 2013 [facility] [place] [facility] [address] [id number] [place] [address] Apr, [facility] [place] [facility] [address] [id number] [place] [address] Apr, [facility] [place] [facility] [address] [id number] [place] [address] Apr, [facility] [place] [facility] [address] [id number] [place] [address] Apr, [facility] [place] [facility] [address] [id number] [place] [address] Apr, [facility] [place] [facility] [address] [id number] [place] [address] Apr, [facility] [place] [facility] [address] [id number] [place] [address] Apr, [facility] [place] [facility] [address] [id number] [place] [address] Apr, [facility] [place] [facility] [address] [id number] [place] [address] Apr, [facility] [place] [facility] [address] [id number] [place] [address] Apr, [facility] [place] [facility] [address] [id number] [place] [address] Apr, [facility] [place] [facility] [address] [id number] [facility] [place] [address] Apr, [facility] [place] [facility] [address] [facility] [id number] [facility] [place] [address] Mar, [facility] [place] [facility] [address] [facility] [id number] [facility] [place] [address] Mar, [facility] [place] [facility] [address] [id number] [facility] [place] [address] Mar, [facility] [place] [facility] [address] [facility] [id number] [facility] [place] [address] Mar, [facility] [place] [facility] [address] [facility] [id number] [facility] [place] [address] Mar, [facility] [place] [facility] [address] [id number] [place] [address] Mar, [facility] [place] [facility] [address] [id number] [place] [address] Mar, [facility] [place] [facility] [address] [id number] [place] [address] Mar, [facility] [place] [facility] [address] [facility] [id number] [place] [address] Mar, [facility] [place] [facility] [address] [id number] [place] [address] Mar, [facility] [place] [facility] [address] [id number] [place] [address] Mar, [facility] [place] [facility] [address] [id number] [place] [address] Feb, [facility] [place] [facility] [address] [facility] [id number] [facility] [place] [address] Feb, [facility] [place] [facility] [address] [id number] [place] [address] Feb, [facility] [place] [facility] [address] [id number] [place] [address] Feb, [facility] [place] [facility] [address] [id number] [place] [address] Feb, [facility] [place] [facility] [address] [facility] [id number] [place] [address] Feb, [facility] [place] [facility] [address] [facility] [id number] [place] [address] Feb, [facility] [place] [facility] [address] [id number] [place] [address] Feb, [facility] [place] [facility] [address] [id number] [place] [address] Feb, [facility] [place] [facility] [address] [facility] [id number] [place] [address] Feb, [facility] [place] [facility] [address] [id number] [place] [address] January, [facility] [place] [facility] [address] [id number] [place] [address] January, [facility] [place] [facility] [address] [id number] [place] [address] January, [facility] [place] [facility] [address] [id number] [place] [address] January, [facility] [place] [facility] [address] [id number] [place] [address] January, [facility] [place] [facility] [address] [id number] [place] [address] January, [facility] [place] [facility] [address] [id number] [place] [address] January, [facility] [place] [facility] [address] [id number] [place] [address] January, [facility] [place] [facility] [address] [facility] [id number] [place] [address] January, [facility] [place] [facility] [address] [id number] [place] [address] January, [facility] [place] [facility] [address] [id number] [place] [address] January, [facility] [place] [facility] [address] [id number] [place] [address] January, [facility] [place] [facility] [address] [id number] [place] [address] January, [facility] [place] [facility] [address] [facility] [id number] [place] [address] January, [facility] [place] [facility] [address] [id number] [place] [address] January, [facility] [place] [facility] [address] [id number] [place] [address] January, [facility] [place] [facility] [address] [facility] [id number] [place] [address] Dec, [facility] [place] [facility] [address] [id number] [place] [address] Dec, [facility] [place] [facility] [address] [id number] [place] [address] Dec, [facility] [place] [facility] [address] [id number] [place] [address] Dec, [facility] [place] [facility] [address] [id number] [place] [address] Dec, [facility] [place] [facility] [address] [id number] [place] [address] Dec, [facility] [place] [facility] [address] [id number] [place] [address] Dec, [facility] [place] [facility] [address] [id number] [place] [address] Dec, [facility] [place] [facility] [address] [id number] [place] [address] Dec, [facility] [place] [facility] [address] [id number] [place] [address] Dec, [facility] [place] [facility] [address] [id number] [place] [address] Nov, [facility] [place] [facility] [address] [id number] [place] [address] Nov, [facility] [place] [facility] [address] [id number] [place] [address] 07 Oct, 2013 [facility] [place] [facility] [address] [id number] [place] [address] Oct, [facility] [place] [facility] [address] [id number] [place] [address] Oct, [facility] [place] [facility] [address] [id number] [place] [address] Sep, [facility] [place] [facility] [address] [id number] [place] [address] Sep, [facility] [place] [facility] [address] [id number] [place] [address] Sep, [facility] [place] [facility] [address] [id number] [place] [address] Sep, [facility] [place] [facility] [address] [id number] [place] [address] Sep, [facility] [place] [facility] [address] [id number] [place] [address] Sep, [facility] [place] [facility] [address] [id number] [place] [address] Sep, [facility] [place] [facility] [address] [id number] [place] [address] Sep, [facility] [place] [facility] [address] [id number] [place] [address] Sep, [facility] [place] [facility] [address] [id number] [place] [address] Sep, [facility] [place] [facility] [address] [id number] [place] [address] Sep, [facility] [place] [facility] [address] [id number] [place] [address] Sep, [facility] [place] [facility] [address] [id number] [place] [address] Aug, [facility] [place] [facility] [address] [id number] [place] [address] Aug, [facility] [place] [facility] [address] [id number] [place] [address] Aug, [facility] [place] [facility] [address] [id number] [place] [address] Aug, [facility] [place] [facility] [address] [id number] [place] [address] Jul, [facility] [place] [facility] [address] [id number] [place] [address] Jul, [facility] [place] [facility] [address] [id number] [place] [address] Jun, [facility] [place] [facility] [address] [id number] [place] [address] Jun, [facility] [place] [facility] [address] [id number] [place] [address] Jun, [facility] [place] [facility] [address] [id number] [place] [address] Jun, [facility] [place] [facility] [address] [id number] [place] [address] Jun, [facility] [place] [facility] [address] [id number] [place] [address] Jun, [facility] [place] [facility] [address] [id number] [place] [address] Jun, [facility] [place] [facility] [address] [id number] [place] [address] Jun, [facility] [place] [facility] [address] [id number] [place] [address] 24 May, 2012 [facility] [place] [facility] [address] [id number] [place] [address] 23 Sep, 2012 [facility] [place] [facility] [address] [id number] [place] [address] 18 Sep, 2012 [facility] [place] [facility] [address] [id number] [place] [address] 13 Sep, 2012 [facility] [place] [facility] [address] [id number] [place] [address] May, 2012 [facility] [place] [facility] [address] [id number] [facility] [place] [address] May, 2012 [facility] [place] [facility] [address] [facility] [id number] [facility] [place] [address] May, [facility] [place] [facility] [address] [facility] [id number] [facility] [place] [address] Apr, [facility] [place] [facility] [address] [id number] [facility] [place] [address] Apr, [facility] [place] [facility] [address] [facility] [id number] [facility] [place] [address] Apr, [facility] [place] [facility] [address] [facility] [id number] [facility] [place] [address] Apr, [facility] [place] [facility] [address] [id number] [place] [address] Apr, [facility] [place] [facility] [address] [id number] [facility] [place] [address] Apr, [facility] [place] [facility] [address] [facility] [id number] [facility] [place] [address] Apr, [facility] [place] [facility] [address] [id number] [facility] [place] [address] Mar, [facility] [place] [facility] [address] [facility] [id number] [place] [address] Mar, [facility] [place] [facility] [address] [id number] [place] [address] Mar, [facility] [place] [facility] [address] [facility] [id number] [facility] [place] [address] Mar, [facility] [place] [facility] [address] [id number] [place] [address] Mar, 2012 [facility] [place] [facility] [address] [facility] [id number] [place] [address] Mar, [facility] [place] [facility] [address] [id number] [facility] [place] [address] Mar, [facility] [place] [facility] [address] [facility] [id number] [place] [address] Mar, [facility] [place] [facility] [address] [id number] [place] [address] Feb, [facility] [place] [facility] [address] [id number] [place] [address] Feb, [facility] [place] [facility] [address] [id number] [place] [address] Feb, [facility] [place] [facility] [address] [id number] [place] [address] January, [facility] [place] [facility] [address] [id number] [place] [address] January, [facility] [place] [facility] [address] [id number] [place] [address] January, [facility] [place] [facility] [address] [id number] [place] [address] January, [facility] [place] [facility] [address] [id number] [place] [address] January, [facility] [place] [facility] [address] [id number] [place] [address] January, [facility] [place] [facility] [address] [id number] [place] [address] January, [facility] [place] [facility] [address] [id number] [place] [address] January, [facility] [place] [facility] [address] [id number] [place] [address] Dec, [facility] [place] [facility] [address] [id number] [place] [address] Dec, [facility] [address] [id number] [place] [address] Dec, [facility] [address] [id number] [place] [address] Dec, [facility] [address] [id number] [place] [address] Dec, [facility] [address] [id number] [place] [address] Nov, [facility] [address] [id number] [place] [address] Nov, [facility] [address] [id number] [place] [address] Nov, [facility] [address] [id number] [place] [address] 18 Nov, 2012 [facility] [address] [id number] [place] [address] 18 Nov, 2012 [facility] [address] [id number] [place] [address] 14 Nov, 2012 [facility] [address] [id number] [place] [address] Nov, [facility] [address] [id number] [place] [address] Nov, [facility] [address] [id number] [place] [address] Oct, [facility] [address] [id number] [place] [address] Oct, [facility] [address] [id number] [place] [address] 12 Oct, 2012 [facility] [address] [id number] [place] [address] 08 Oct, 2012 [facility] [address] [id number] [place] [address] 07 Oct, 2012 [facility] [address] [id number] [place] [address] 07 Oct, 2012 [facility] [address] [id number] [place] [address] 05 Oct, 2012 [facility] [address] [id number] [place] [address] 04 Oct, 2012 [facility] [address] [id number] [place] [address] 04 Oct, 2012 [facility] [address] [id number] [place] [address] Sep, [facility] [address] [id number] [place] [address] Sep, [facility] [address] [id number] [place] [address] Sep, [facility] [address] [id number] [place] [address] Sep, [facility] [address] [id number] [place] [address] Sep, [facility] [address] [id number] [place] [address] Sep, [facility] [address] [id number] [place] [address] Aug, [facility] [address] [id number] [place] [address] Aug, [facility] [address] [id number] [place] [address] Aug, [facility] [address] [id number] [place] [address] Aug, [facility] [address] [id number] [place] [address] Aug, [facility] [address] [id number] [place] [address] Aug, [facility] [address] [id number] [place] [address] Aug, [facility] [address] [id number] [place] [address] Aug, [facility] [address] [id number] [place] [address] Aug, [facility] [address] [id number] [place] [address] Jul, [facility] [id number] [place] [address] Jul, [facility] [address] [address] Jul, [facility] [address] [address] Jul, [facility] [address] [address] Nov, [facility] [address] [address] Sep, [facility] [address] [address] Aug, [facility] [address] [address] Aug, [facility] [address] [address] Aug, [facility] [address] [address] Jul, IMMUNIZATIONS No Known Immunizations SOCIAL HISTORY Never Assessed REASON FOR VISIT PLAN OF CARE VITAL SIGNS MEDICATIONS Unknown Medications RESULTS No Results PROCEDURES Procedure Date Ordered Result Body Site PSYTX PT&/FAMILY 45 MINUTES March 30, 2014 INSTRUCTIONS MEDICATIONS ADMINISTERED No Known [...] Rotator Cuff Repair [facility] 06/2016 Surgical History Colonoscopy Kido (1 Polyp) repeat 5 year s 2019 2014 Surgical History right rotator cuff surgery 06/27/2016 Hospitalization History Overdosed on Clonazepam #35. Lori melendrez 03/2014 Hospitalization History Overdosed on Xanax 07/2012 Hospitalization History Hypostension-medication side effect-[facility] 03/13/16
--- OUTSIDE RECORDS SUMMARY | 2020-01-01 11:12 | XMS REPORT ---
Author Author Miguel Freeman Doctor Organization [facility] Address Unknown Phone Unavailable Care Team Providers Care Cmv Driver Name Role Phone Migration, Doctor Unavailable Unavailable PROBLEMS Type Condition ICD9-CM Code IWN14-VA Code Onset Dates Condition S tatus SNOMED Code Problem Neuropathy G62.9 Active 440895175 Problem Essential hypertension I10 Active 02209540 Problem senior care current use of insulin Z79.4 Active 762512653 Problem Abdominal pain R10.9 Active 11728 001 Problem Change in bowel habit R19.4 Active 08351175 Problem Coronary atherosclerosis due to lipid rich plaque I25.83 Active 98154336 Problem Type 2 diabetes mellitus with complication E11.8 Active 74469206 Problem Impotence N52.9 Active 942638816 Problem Family history of colon cancer Z80.0 Active 127439876 Problem Diabetic neuropathy, painful E11.40 A ctive 786476367 Problem Arm paresthesia, right R20.2 Active 12693658 Problem Gastroesophageal reflux disease without esophagitis K21.9 Active 977375740 Problem Drug abuse, opioid type F11.10 Active 7593334 Problem COPD exacerbation J44.1 Active 19 1102838 Problem Obstructive sleep apnea syndrome G47.33 Active 63343346 Problem Diverticulitis K57.92 Active 99170 6006 Problem Pain of right upper extremity M79.601 Active 263776274 Problem Respiratory bronchiolitis interstitial lung disease J84.115 Active 277304207 Problem Hypoxia R09.02 Active 994786817 Problem Interstitial lung disease J84.9 Acti ve [id number] ALLERGIES No Information ENCOUNTERS Encounter Location Date Diagnosis [facility] [address] [id number] [place] [address] Aug, [facility] [address] [id number] [place] [address] Aug, Diabetic neuropathy, painful E11.40 ; In terstitial lung disease J84.9 ; Chronic cough R05 ; Type 2 diabetes mellitus with complication E11.8 and technician terminal and repeater current use of insulin Z79.4 [facility] [address] [place] [id number] [place] [address] Jul, [facility] [address] [address] Jul, [facility] [address] [address] Jul, Diabetic neuropathy, painful E11.40 [place] [address] [address] Jul, Type 2 diabetes mellitus with complicati on E11.8 [place] [address] [address] Jun, Diabetic neuropathy, painful E11.40 [place] [address] [address] Jun, [facility] [address] [facility] [id number] [place] [address] Jun, Type 2 diabetes mellitus wit h complication E11.8 ; Other viral agents as the cause of diseases classified elsewhere B97.89 ; Acute upper respiratory infection, unspecified J06.9 ; Acute recurrent maxillary sinusitis J01.01 ; Sore throat J02.9 and Headache R51 [place] [address] [address] Jun, Right lower quadrant abdominal pain R10. 31 and Type 2 diabetes mellitus with complication E11.8 [place] [address] [address] May, Diabetic neuropathy, painful E11.40 [place] [address] [address] May, COPD exacerbation J44.1 and Type 2 diabe chidi mellitus with complication E11.8 [place] [address] [address] Apr, Diabetic neuropathy, painful E11.40 [place] [address] [address] Apr, Diabetic neuropathy, painful E11.40 [facility] [address] [place] [id number] [address] [place] [address] Mar, Bronchitis J40 [place] [address] [address] January, Type 2 diabetes mellitus with complicati on E11.8 ; Diabetic neuropathy, painful E11.40 ; Impotence N52.9 ; Coronary atherosclerosis due to lipid rich plaque I25.83 ; technician terminal and repeater current use of insulin Z79.4 ; Interstitial lung disease J84.9 ; Hypoxia R09.02 ; Essential hypertension I10 ; Gastroesophageal reflux disease without esophagitis K21.9 ; Left upper arm pain M79.622 and Cervical spinal stenosis M48.02 [facility] [place] [id number] [place] [address] January, Viral gastroenteritis A08.[address] [address] Dec, Diabetic neuropathy, painful E11.40 [place] [address] [id number] Oct, [address] [address] Oct, Acute right-sided weakness M62.89 and Sl urring of speech R47.[address] [address] Sep, Type 2 diabetes mellitus with complicati on E11.8 ; Diabetic neuropathy, painful E11.40 ; Impotence N52.9 ; Coronary atherosclerosis due to lipid rich plaque I25.83 ; technician terminal and repeater current use of insulin Z79.4 ; Interstitial lung disease J84.9 ; Hypoxia R09.02 ; Essential hypertension I10 and Gastroesophageal reflux disease without esophagitis K21.9 [facility] [place] [id number] [place] [address] Sep, Bronchitis J40 [facility] [address] [facility] [id number] [address] [place] [address] Aug, Gastroenteritis and colitis, viral A08.4 [facility] [address] [address] Aug, [facility] [address] [address] Jun, Type 2 diabetes mellitus with complicati on E11.8 ; Diabetic neuropathy, painful E11.40 ; Impotence N52.9 ; Coronary atherosclerosis due to lipid rich plaque I25.83 ; senior care current use of insulin Z79.4 ; Interstitial lung disease J84.9 ; Hypoxia R09.02 and Essential hypertension I10 [facility] [address] [address] 30 May, 2016 Bronchitis J40 [facility] [address] [address] May, [facility] [address] [address] May, Pain of right upper extremity M79.601 [place] [address] [address] May, [facility] [address] [address] May, [place] [address] [address] May, Right hand pain M79.641 [facility] [address] [address] Apr, [facility] [address] [address] Apr, [place] [address] [address] Mar, [facility] [address] [address] Mar, Essential hypertension I10 [place] [address] [address] Feb, [place] [address] [address] Feb, Interstitial lung disease J84.9 and Bron chitis J40 [place] [address] [address] Feb, [place] [address] [address] Feb, Type 2 diabetes mellitus with complicati on E11.8 ; Impotence N52.9 ; Coronary atherosclerosis due to lipid rich plaque I25.83 ; technician terminal and repeater current use of insulin Z79.4 and Diabetic neuropathy, painful E11.40 [place] [address] [address] January, [place] [address] [address] January, Arm paresthesia, right R20.2 and Pain of right upper extremity M79.601 [place] [address] [address] Dec, Lumbar strain S39.012A [place] [address] [address] Nov, Diabetic neuropathy, painful E11.40 ; Re spiratory bronchiolitis interstitial lung disease J84.115 ; Pain of right upper extremity M79.601 and Arm paresthesia, right R20.2 [place] [address] [address] Nov, Diabetic neuropathy, painful E11.40 [place] [address] [address] Sep, Type 2 diabetes mellitus with complicati on E11.8 ; Impotence N52.9 ; Coronary atherosclerosis due to lipid rich plaque I25.83 ; technician terminal and repeater current use of insulin Z79.4 ; Diabetic neuropathy, painful E11.40 ; Chest pain R07.9 and Restless leg G25.81 [facility] [address] [address] Sep, [facility] [address] [address] Jul, COPD (chronic obstructive pulmonary dise ase) with acute bronchitis J44.0 [place] [address] [address] Jun, Abdominal pain R10.9 ; Family history of colon cancer Z80.0 and Diverticulitis K57.92 [place] [address] [address] Jun, Abdominal pain R10.9 and Diverticulitis K57.92 [place] [address] [address] Apr, Diabetes with other specified manifestat ions, type II or unspecified type, not stated as uncontrolled 250.80 ; Coronary atherosclerosis of unspecified type of vessel, [place] or graft 414.00 ; Unspecified essential hypertension 401.9 ; Impotence of organic origin 607.84 ; Sleep apnea 780.57 and Interstitial lung disease 515 [place] [address] [address] Dec, [place] [address] [address] Dec, [place] [address] [address] Nov, [facility] [address] [address] Nov, [facility] [address] [address] Nov, [facility] [address] [address] Nov, [facility] [address] [address] Nov, [facility] [address] [address] Nov, [facility] [place] [facility] [address] [id number] [place] [address] Nov, [facility] [place] [facility] [address] [id number] [place] [address] Nov, [facility] [place] [facility] [address] [id number] [place] [address] Nov, 2014 [facility] [place] [facility] [address] [id number] [place] [address] Nov, 2014 [facility] [place] [facility] [address] [id number] [place] [address] Oct, 2014 [facility] [place] [facility] [address] [id number] [place] [address] Oct, 2014 [facility] [place] [facility] [address] [id number] [place] [address] Oct, 2014 [facility] [place] [facility] [address] [id number] [place] [address] Oct, 2014 [facility] [place] [facility] [address] [id number] [place] [address] Oct, 2014 [facility] [place] [facility] [address] [id number] [place] [address] Oct, 2014 [facility] [place] [facility] [address] [id number] [place] [address] Oct, 2014 [facility] [place] [facility] [address] [id number] [place] [address] Oct, 2014 [facility] [place] [facility] [address] [id number] [place] [address] Oct, 2014 [facility] [place] [facility] [address] [id number] [place] [address] Oct, 2014 [facility] [place] [facility] [address] [id number] [place] [address] Oct, 2014 [facility] [place] [facility] [address] [id number] [place] [address] Jul, [facility] [place] [facility] [address] [id number] [place] [address] Jul, 2013 [facility] [place] [facility] [address] [id number] [place] [address] Jun, 2013 [facility] [place] [facility] [address] [id number] [place] [address] 29 Jun, 2013 [facility] [place] [facility] [address] [id number] [place] [address] Jun, 2013 [facility] [place] [facility] [address] [id number] [place] [address] 17 Jun, 2013 [facility] [place] [facility] [address] [id number] [place] [address] 15 Jun, 2014 [facility] [place] [facility] [address] [id number] [place] [address] 15 Jun, 2013 [facility] [place] [facility] [address] [id number] [place] [address] 14 Jun, 2013 [facility] [place] [facility] [address] [id number] [place] [address] 14 Jun, 2013 [facility] [place] [facility] [address] [id number] [place] [address] 13 Jun, 2014 [facility] [place] [facility] [address] [id number] [place] [address] 13 Jun, 2013 [facility] [place] [facility] [address] [id number] [place] [address] 08 Jun, 2013 [facility] [place] [facility] [address] [id number] [place] [address] 08 Jun, 2013 [facility] [place] [facility] [address] [id number] [place] [address] 07 Jun, 2013 [facility] [place] [facility] [address] [id number] [place] [address] 07 Jun, 2013 [facility] [place] [facility] [address] [id number] [place] [address] 30 May, 2013 [facility] [place] [facility] [address] [id number] [place] [address] 30 May, 2013 [facility] [place] [facility] [address] [id number] [facility] [address] May, [facility] [place] [facility] [address] [facility] [id number] [facility] [address] May, [facility] [place] [facility] [address] [id number] [facility] [address] May, [facility] [place] [facility] [address] [facility] [id number] [facility] [address] May, [facility] [place] [facility] [address] [facility] [id number] [facility] [address] Apr, [facility] [place] [facility] [address] [facility] [id number] [place] [address] Apr, [facility] [place] [facility] [address] [id number] [place] [address] Apr, [facility] [place] [facility] [address] [id number] [facility] [address] Apr, [facility] [place] [facility] [address] [id number] [facility] [address] Apr, [facility] [place] [facility] [address] [id number] [facility] [address] Apr, [facility] [place] [facility] [address] [id number] [place] [address] Apr, [facility] [place] [facility] [address] [id number] [place] [address] Apr, [facility] [place] [facility] [address] [id number] [place] [address] Apr, [facility] [place] [facility] [address] [id number] [place] [address] Apr, [facility] [place] [facility] [address] [id number] [place] [address] Apr, [facility] [place] [facility] [address] [id number] [place] [address] Apr, [facility] [place] [facility] [address] [id number] [facility] [address] Mar, [facility] [place] [facility] [address] [id number] [facility] [address] Mar, [facility] [place] [facility] [address] [facility] [id number] [place] [address] Mar, [facility] [place] [facility] [address] [facility] [id number] [place] [address] Mar, [facility] [place] [facility] [address] [facility] [id number] [facility] [address] Mar, [facility] [place] [facility] [address] [facility] [id number] [facility] [address] Mar, [facility] [place] [facility] [address] [id number] [place] [address] Mar, [facility] [place] [facility] [address] [id number] [place] [address] Mar, [facility] [place] [facility] [address] [id number] [place] [address] Mar, [facility] [place] [facility] [address] [facility] [id number] [place] [address] Mar, [facility] [place] [facility] [address] [id number] [place] [address] Mar, [facility] [place] [facility] [address] [id number] [place] [address] Feb, [facility] [place] [facility] [address] [facility] [id number] [place] [address] Feb, [facility] [place] [facility] [address] [facility] [id number] [place] [address] Feb, [facility] [place] [facility] [address] [id number] [place] [address] Feb, [facility] [place] [facility] [address] [id number] [place] [address] Feb, [facility] [place] [facility] [address] [id number] [place] [address] Feb, [facility] [place] [facility] [address] [id number] [place] [address] Feb, [facility] [place] [facility] [address] [id number] [place] [address] Feb, [facility] [place] [facility] [address] [id number] [place] [address] Feb, [facility] [place] [facility] [address] [id number] [place] [address] Feb, [facility] [place] [facility] [address] [facility] [id number] [place] [address] January, [facility] [place] [facility] [address] [id number] [place] [address] January, [facility] [place] [facility] [address] [id number] [place] [address] January, [facility] [place] [facility] [address] [id number] [place] [address] January, [facility] [place] [facility] [address] [id number] [place] [address] January, [facility] [place] [facility] [address] [id number] [place] [address] January, [facility] [place] [facility] [address] [id number] [place] [address] January, [facility] [place] [facility] [address] [id number] [place] [address] January, [facility] [place] [facility] [address] [id number] [place] [address] January, [facility] [place] [facility] [address] [id number] [place] [address] January, [facility] [place] [facility] [address] [id number] [place] [address] January, [facility] [place] [facility] [address] [id number] [place] [address] January, [facility] [place] [facility] [address] [id number] [place] [address] January, [facility] [place] [facility] [address] [id number] [place] [address] January, [facility] [place] [facility] [address] [id number] [place] [address] January, [facility] [place] [facility] [address] [id number] [place] [address] January, [facility] [place] [facility] [address] [id number] [place] [address] Dec, [facility] [place] [facility] [address] [id number] [place] [address] Dec, [facility] [place] [facility] [address] [id number] [place] [address] Dec, [facility] [place] [facility] [address] [id number] [place] [address] Dec, [facility] [place] [facility] [address] [id number] [place] [address] Dec, [facility] [place] [facility] [address] [id number] [place] [address] Dec, [facility] [place] [facility] [address] [id number] [place] [address] Dec, [facility] [place] [facility] [address] [id number] [place] [address] Dec, [facility] [place] [facility] [address] [id number] [place] [address] Dec, [facility] [place] [facility] [address] [id number] [place] [address] Dec, [facility] [place] [facility] [address] [id number] [place] [address] Nov, [facility] [place] [facility] [address] [id number] [place] [address] Nov, [facility] [place] [facility] [address] [id number] [place] [address] Oct, [facility] [place] [facility] [address] [id number] [place] [address] 07 Oct, 2013 [facility] [place] [facility] [address] [id number] [place] [address] Oct, [facility] [place] [facility] [address] [id number] [place] [address] Sep, [facility] [place] [facility] [address] [id number] [place] [address] Sep, [facility] [place] [facility] [address] [id number] [place] [address] Sep, [facility] [place] [facility] [address] [id number] [place] [address] Sep, [facility] [place] [facility] [address] [id number] [place] [address] Sep, [facility] [place] [facility] [address] [id number] [place] [address] Sep, [facility] [place] [facility] [address] [id number] [place] [address] Sep, [facility] [place] [facility] [address] [id number] [place] [address] Sep, [facility] [place] [facility] [address] [id number] [place] [address] Sep, [facility] [place] [facility] [address] [id number] [place] [address] Sep, [facility] [place] [facility] [address] [id number] [place] [address] Sep, [facility] [place] [facility] [address] [id number] [place] [address] Sep, [facility] [place] [facility] [address] [id number] [place] [address] Aug, [facility] [place] [facility] [address] [id number] [place] [address] Aug, [facility] [place] [facility] [address] [id number] [place] [address] Aug, [facility] [place] [facility] [address] [id number] [place] [address] Aug, 2012 [facility] [place] [facility] [address] [id number] [place] [address] Jul, [facility] [place] [facility] [address] [id number] [place] [address] Jul, [facility] [place] [facility] [address] [id number] [place] [address] Jun, [facility] [place] [facility] [address] [id number] [place] [address] Jun, [facility] [place] [facility] [address] [id number] [place] [address] Jun, [facility] [place] [facility] [address] [id number] [place] [address] Jun, [facility] [place] [facility] [address] [id number] [place] [address] Jun, [facility] [place] [facility] [address] [id number] [place] [address] Jun, [facility] [place] [facility] [address] [id number] [place] [address] Jun, [facility] [place] [facility] [address] [id number] [place] [address] Jun, [facility] [place] [facility] [address] [id number] [place] [address] 24 May, 2012 [facility] [place] [facility] [address] [id number] [place] [address] 23 Sep, 2012 [facility] [place] [facility] [address] [id number] [place] [address] 18 Sep, 2012 [facility] [place] [facility] [address] [id number] [place] [address] 13 Sep, 2012 [facility] [place] [facility] [address] [id number] [place] [address] 11 Sep, 2012 [facility] [place] [facility] [address] [id number] [place] [address] May, [facility] [place] [facility] [address] [id number] [place] [address] May, [facility] [place] [facility] [address] [facility] [id number] [facility] [place] [address] Apr, [facility] [place] [facility] [address] [id number] [facility] [place] [address] Apr, [facility] [place] [facility] [address] [facility] [id number] [place] [address] Apr, [facility] [place] [facility] [address] [id number] [place] [address] Apr, [facility] [place] [facility] [address] [id number] [place] [address] Apr, [facility] [place] [facility] [address] [id number] [facility] [place] [address] Apr, [facility] [place] [facility] [address] [id number] [place] [facility] [place] [address] Apr, [facility] [place] [facility] [address] [facility] [id number] [place] [facility] [address] Mar, [facility] [place] [facility] [address] [id number] [place] [facility] [place] [address] Mar, [facility] [place] [facility] [address] [id number] [place] [facility] [place] [address] Mar, [facility] [place] [facility] [address] [id number] [place] [facility] [address] Mar, [facility] [place] [facility] [address] [facility] [id number] [facility] [address] Mar, [facility] [place] [facility] [address] [id number] [place] [facility] [address] Mar, [facility] [place] [facility] [address] [facility] [id number] [place] [facility] [address] Mar, [facility] [place] [facility] [address] [id number] [place] [facility] [address] Mar, [facility] [place] [facility] [address] [id number] [place] [address] 18 Feb, 2013 [facility] [place] [facility] [address] [id number] [place] [address] Feb, [facility] [place] [facility] [address] [id number] [place] [address] Feb, [facility] [place] [facility] [address] [id number] [place] [address] January, [facility] [place] [facility] [address] [id number] [place] [address] January, [facility] [place] [facility] [address] [id number] [place] [address] January, [facility] [place] [facility] [address] [id number] [place] [address] January, [facility] [place] [facility] [address] [id number] [place] [address] January, [facility] [place] [facility] [address] [id number] [place] [address] January, [facility] [place] [facility] [address] [id number] [place] [address] January, [facility] [place] [facility] [address] [id number] [place] [address] January, [facility] [place] [facility] [address] [id number] [place] [address] Dec, [facility] [place] [facility] [address] [id number] [place] [address] Dec, [facility] [place] [facility] [address] [id number] [place] [address] Dec, [facility] [place] [facility] [address] [id number] [place] [address] Dec, [facility] [place] [facility] [address] [id number] [place] [address] Dec, [facility] [place] [facility] [address] [id number] [place] [address] Nov, [facility] [address] [id number] [place] [address] 21 Nov, 2012 [facility] [place] [facility] [address] [id number] [place] [facility] [facility] [address] 19 Nov, 2012 [facility] [place] [facility] [address] [id number] [place] [address] 18 Nov, 2012 [facility] [place] [facility] [address] [id number] [place] [address] 18 Nov, 2012 [facility] [place] [facility] [address] [facility] [place] [id number] [place] [address] 14 Nov, 2012 [facility] [place] [facility] [address] [id number] [place] [address] 11 Nov, 2012 [facility] [place] [facility] [address] [id number] [place] [address] Nov, [facility] [place] [facility] [address] [id number] [place] [address] Oct, [facility] [place] [facility] [address] [id number] [place] [address] Oct, [facility] [place] [facility] [address] [id number] [place] [address] 12 Oct, 2012 [facility] [place] [facility] [address] [id number] [place] [address] 08 Oct, 2012 [facility] [place] [facility] [address] [id number] [place] [address] 07 Oct, 2012 [facility] [place] [facility] [address] [id number] [place] [address] 07 Oct, 2012 [facility] [place] [facility] [address] [id number] [place] [address] 05 Oct, 2012 [facility] [place] [facility] [address] [id number] [place] [address] 04 Oct, 2012 [facility] [place] [facility] [address] [id number] [place] [address] 04 Oct, 2012 [facility] [place] [facility] [address] [id number] [place] [address] Sep, [facility] [place] [facility] [address] [id number] [place] [address] Sep, [facility] [place] [facility] [address] [id number] [place] [address] Sep, [facility] [place] [facility] [address] [id number] [place] [address] Sep, [facility] [place] [facility] [address] [id number] [place] [address] Sep, [facility] [place] [facility] [address] [id number] [place] [address] Sep, [facility] [place] [facility] [address] [id number] [place] [address] Aug, [facility] [place] [facility] [address] [id number] [place] [address] Aug, [facility] [place] [facility] [address] [id number] [place] [address] Aug, [facility] [place] [facility] [address] [id number] [place] [address] Aug, [facility] [place] [facility] [address] [id number] [place] [address] Aug, [facility] [place] [facility] [address] [id number] [place] [address] Aug, [facility] [place] [facility] [address] [id number] [place] [address] Aug, [facility] [place] [facility] [address] [id number] [place] [address] Aug, [facility] [place] [facility] [address] [id number] [place] [address] Aug, [facility] [place] [facility] [address] [id number] [place] [address] Jul, [facility] [place] [facility] [address] [id number] [place] [address] Jul, [facility] [address] [id number] [place] [address] Jul, [facility] [address] [address] Jul, [facility] [id number] [place] [address] Nov, [facility] [address] [address] Sep, [facility] [address] [address] Aug, [facility] [address] [address] Aug, [facility] [address] [address] Aug, [facility] [address] [address] Jul, IMMUNIZATIONS No Known Immunizations SOCIAL HISTORY Never Assessed REASON FOR VISIT PLAN OF CARE VITAL SIGNS Blood pressure systolic 130 mmHg 2014-03-05 Blood pressure diastolic 82 mmHg 2014-03-05 MEDICATIONS Unknown Medications RESULTS No Results PROCEDURES Procedure Date Ordered Result Body Site DEBRIDE SKIN, FULL March 05, 2014 INSTRUCTIONS MEDICATIONS ADMINISTERED No Known Medications [...]
--- OUTSIDE RECORDS SUMMARY | 2020-01-01 11:12 | XMS REPORT ---
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 Active 015109706 Problem Abdominal pain R10.9 Active 09542 001 Problem Change in bowel habit R19.4 Active 80530512 Problem Coronary atherosclerosis due to lipid rich plaque I25.83 Active 83606456 Problem Type 2 diabetes mellitus with complication E11.8 Active 95630241 Problem Impotence N52.9 Active 068012498 Problem Family history of colon cancer Z80.0 Active 797173413 Problem Diabetic neuropathy, painful E11.40 A ctive 445977885 Problem Arm paresthesia, right R20.2 Active 68000302 Problem Gastroesophageal reflux disease without esophagitis K21.9 Active 226178336 Problem Drug abuse, opioid type F11.10 Active 1567368 Problem COPD exacerbation J44.1 Active 19 6362325 Problem Obstructive sleep apnea syndrome G47.33 Active 59076570 Problem Diverticulitis K57.92 Active 79880 6006 Problem Pain of right upper extremity M79.601 Active 208072960 Problem Respiratory bronchiolitis interstitial lung disease J84.115 Active 404747214 Problem Hypoxia R09.02 Active 771093252 Problem Interstitial lung disease J84.9 Acti ve [id number] ALLERGIES No Information ENCOUNTERS Encounter Location Date Diagnosis [facility] [address] [id number] [place] [address] Aug, [facility] [address] [id number] [place] [address] Aug, Diabetic neuropathy, painful E11.40 ; In terstitial lung disease J84.9 ; Chronic cough R05 ; Type 2 diabetes mellitus with complication E11.8 and alf current use of insulin Z79.4 [place] [address] [address] Jul, [facility] [address] [address] Jul, [place] [address] [address] Jul, Diabetic neuropathy, painful E11.40 [place] [address] [address] Jul, Type 2 diabetes mellitus with complicati on E11.8 [place] [address] [address] Jun, Diabetic neuropathy, painful E11.40 [place] [address] [address] Jun, [facility] [address] [id number] [address] [place] [address] Jun, Type 2 diabetes mellitus wit h complication E11.8 ; Other viral agents as the cause of diseases classified elsewhere B97.89 ; Acute upper respiratory infection, unspecified J06.9 ; Acute recurrent maxillary sinusitis J01.01 ; Sore throat J02.9 and Headache R51 [place] [address] [address] Jun, Right lower quadrant abdominal pain R10. 31 and Type 2 diabetes mellitus with complication E11.8 [place] [address] [address] May, Diabetic neuropathy, painful E11.[address] [address] May, COPD exacerbation J44.1 and Type 2 diabe chidi mellitus with complication E11.8 [place] [address] [address] Apr, Diabetic neuropathy, painful E11.40 [place] [address] [place] [id number] [place] [address] Apr, Diabetic neuropathy, painful E11.40 [facility] [place] [address] [address] [place] [id number] [address] [place] [address] Mar, Bronchitis J40 [place] [address] [address] January, Type 2 diabetes mellitus with complicati [...] stenosis M48.02 [facility] IN [place] [id number] [address] [place] [address] January, Viral gastroenteritis A08.4 [place] [address] [address] Dec, Diabetic neuropathy, painful E11.40 [place] [id number] [place] [id number] Oct, [address] [address] Oct, Acute right-sided weakness M62.89 and Sl urring of speech R47.81 [place] [address] [place] [id number] [place] [address] Sep, Type 2 diabetes mellitus with complicati on E11.8 ; Diabetic neuropathy, painful E11.40 ; Impotence N52.9 ; Coronary atherosclerosis due to lipid rich plaque I25.83 ; 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 ; Interstitial lung disease J84.9 ; Hypoxia R09.02 ; Essential hypertension I10 and Gastroesophageal reflux disease without esophagitis K21.9 [facility] [place] [address] [address] [place] [id number] [address] 07 Sep, 2016 Bronchitis J40 [facility] [address] [id number] [place] [address] Aug, Gastroenteritis and colitis, viral A08.4 [facility] [address] [address] Aug, [facility] [address] [address] Jun, Type 2 diabetes mellitus with complicati on E11.8 ; Diabetic neuropathy, painful E11.40 ; Impotence N52.9 ; Coronary atherosclerosis due to lipid rich plaque I25.83 ; 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 ; Interstitial lung disease J84.9 ; Hypoxia R09.02 and Essential hypertension I10 [facility] [address] [address] 30 May, 2016 Bronchitis J40 [facility] [address] [address] 29 May, 2016 [facility] [address] [address] 20 May, 2016 Pain of right upper extremity M79.601 [facility] [address] [address] May, [facility] [address] [address] 15 May, 2016 [facility] [address] [address] 07 May, 2016 Right hand pain M79.641 [facility] [address] [address] Apr, [facility] [address] [address] Apr, [facility] [address] [address] Mar, [facility] [address] [address] Mar, Essential hypertension I10 [place] [address] [address] Feb, [place] [address] [address] Feb, Interstitial lung disease J84.9 and Bron chitis J40 [place] [address] [address] Feb, [place] [address] [address] Feb, Type 2 diabetes mellitus with complicati on E11.8 ; Impotence N52.9 ; Coronary atherosclerosis due to lipid rich plaque I25.83 ; 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 and Diabetic neuropathy, painful E11.40 [place] [address] [address] January, [place] [address] [address] January, Arm paresthesia, right R20.2 and Pain of right upper extremity M79.601 [place] [address] [address] Dec, Lumbar strain S39.012A [place] [address] [address] Nov, Diabetic neuropathy, painful E11.40 ; Re spiratory bronchiolitis interstitial lung disease J84.115 ; Pain of right upper extremity M79.601 and Arm paresthesia, right R20.2 [place] [address] [address] Nov, Diabetic neuropathy, painful E11.40 [place] [address] [address] Sep, Type 2 diabetes mellitus with complicati on E11.8 ; Impotence N52.9 ; Coronary atherosclerosis due to lipid rich plaque I25.83 ; 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 ; Diabetic neuropathy, painful E11.40 ; Chest pain R07.9 and Restless leg G25.81 [place] [address] [address] Sep, [place] [address] [address] Jul, COPD (chronic obstructive pulmonary dise ase) with acute bronchitis J44.[address] [address] Jun, Abdominal pain R10.9 ; Family history of colon cancer Z80.0 and Diverticulitis K57.[address] [address] Jun, Abdominal pain R10.9 and Diverticulitis K57.[address] [address] Apr, Diabetes with other specified manifestat ions, type II or unspecified type, not stated as uncontrolled 250.80 ; Coronary atherosclerosis of unspecified type of vessel, [place] or graft 414.00 ; Unspecified essential hypertension 401.9 ; Impotence of organic origin 607.84 ; Sleep apnea 780.57 and Interstitial lung disease 515 [place] [address] [address] Dec, [address] [address] Dec, [place] [address] [address] Nov, [place] [address] [address] Nov, [place] [address] [address] Nov, [address] [address] Nov, [address] [address] Nov, 2014 [facility] [place] [facility] [address] [id number] [place] [address] Nov, [facility] [place] [facility] [address] [id number] [place] [address] Nov, 2014 [facility] [place] [facility] [address] [id number] [place] [address] Nov, 2014 [facility] [place] [facility] [address] [id number] [place] [address] Nov, 2014 [facility] [place] [facility] [address] [id number] [place] [address] Nov, 2014 [facility] [place] [facility] [address] [id number] [place] [address] Oct, 2014 [facility] [place] [facility] [address] [id number] [place] [address] Oct, 2014 [facility] [place] [facility] [address] [id number] [place] [address] Oct, 2014 [facility] [place] [facility] [address] [id number] [place] [address] Oct, 2014 [facility] [place] [facility] [address] [id number] [place] [address] Oct, 2014 [facility] [place] [facility] [address] [id number] [place] [address] Oct, 2014 [facility] [place] [facility] [address] [id number] [place] [address] Oct, 2014 [facility] [place] [facility] [address] [id number] [place] [address] Oct, 2014 [facility] [place] [facility] [address] [id number] [place] [address] Oct, 2014 [facility] [place] [facility] [address] [id number] [place] [address] Oct, 2014 [facility] [place] [facility] [address] [id number] [place] [address] Oct, [facility] [place] [facility] [address] [id number] [place] [address] Jul, 2013 [facility] [place] [facility] [address] [id number] [place] [address] Jul, 2013 [facility] [place] [facility] [address] [id number] [place] [address] Jun, 2013 [facility] [place] [facility] [address] [id number] [place] [address] Jun, 2013 [facility] [place] [facility] [address] [id number] [place] [address] Jun, 2013 [facility] [place] [facility] [address] [id number] [place] [address] Jun, 2013 [facility] [place] [facility] [address] [id number] [place] [address] 15 Jun, 2014 [facility] [place] [facility] [address] [id number] [place] [address] 15 Jun, 2013 [facility] [place] [facility] [address] [id number] [place] [address] 14 Jun, 2014 [facility] [place] [facility] [address] [id number] [place] [address] 14 Jun, 2014 [facility] [place] [facility] [address] [id number] [place] [address] Jun, 2013 [facility] [place] [facility] [address] [id number] [place] [address] Jun, [facility] [place] [facility] [address] [id number] [place] [address] 08 Jun, 2013 [facility] [place] [facility] [address] [id number] [place] [address] 08 Jun, 2014 [facility] [place] [facility] [address] [id number] [place] [address] Jun, 2013 [facility] [place] [facility] [address] [id number] [place] [address] Jun, 2013 [facility] [place] [facility] [address] [id number] [place] [address] May, 2013 [facility] [place] [facility] [address] [id number] [facility] [place] [address] 30 May, 2014 [facility] [place] [facility] [address] [id number] [facility] [address] May, 2013 [facility] [place] [facility] [address] [id number] [facility] [address] May, 2013 [facility] [place] [facility] [address] [id number] [place] [address] May, 2013 [facility] [place] [facility] [address] [id number] [facility] [address] May, [facility] [place] [facility] [address] [id number] [facility] [address] Apr, [facility] [place] [facility] [address] [id number] [place] [address] Apr, [facility] [place] [facility] [address] [id number] [facility] [address] Apr, [facility] [place] [facility] [address] [id number] [place] [address] Apr, [facility] [place] [facility] [address] [id number] [place] [address] Apr, [facility] [place] [facility] [address] [id number] [place] [address] Apr, [facility] [place] [facility] [address] [id number] [place] [address] Apr, [facility] [place] [facility] [address] [id number] [place] [address] Apr, [facility] [place] [facility] [address] [id number] [place] [address] Apr, [facility] [place] [facility] [address] [id number] [place] [address] Apr, [facility] [place] [facility] [address] [id number] [place] [address] Apr, [facility] [place] [facility] [address] [id number] [facility] [place] [address] Apr, [facility] [place] [facility] [address] [id number] [facility] [address] Mar, [facility] [place] [facility] [address] [id number] [place] [address] Mar, [facility] [place] [facility] [address] [id number] [place] [address] Mar, [facility] [place] [facility] [address] [id number] [place] [address] Mar, [facility] [place] [facility] [address] [id number] [facility] [place] [address] Mar, [facility] [place] [facility] [address] [id number] [place] [address] Mar, [facility] [place] [facility] [address] [id number] [place] [address] Mar, [facility] [place] [facility] [address] [id number] [place] [address] Mar, [facility] [place] [facility] [address] [id number] [place] [address] Mar, [facility] [place] [facility] [address] [id number] [place] [address] Mar, [facility] [place] [facility] [address] [id number] [place] [address] Mar, [facility] [place] [facility] [address] [id number] [place] [address] Feb, [facility] [place] [facility] [address] [id number] [place] [address] Feb, [facility] [place] [facility] [address] [id number] [place] [address] Feb, [facility] [place] [facility] [address] [id number] [place] [address] Feb, [facility] [place] [facility] [address] [id number] [place] [address] Feb, [facility] [place] [facility] [address] [id number] [place] [address] Feb, [facility] [place] [facility] [address] [id number] [place] [address] Feb, [facility] [place] [facility] [address] [id number] [place] [address] Feb, [facility] [place] [facility] [address] [id number] [place] [address] Feb, [facility] [place] [facility] [address] [id number] [place] [address] Feb, [facility] [place] [facility] [address] [id number] [place] [address] January, [facility] [place] [facility] [address] [id number] [place] [address] January, [facility] [place] [facility] [address] [id number] [place] [address] January, [facility] [place] [facility] [address] [id number] [place] [address] January, [facility] [place] [facility] [address] [id number] [place] [address] January, [facility] [place] [facility] [address] [id number] [place] [address] January, [facility] [place] [facility] [address] [id number] [place] [address] January, [facility] [place] [facility] [address] [id number] [place] [address] January, [facility] [place] [facility] [address] [id number] [place] [address] January, [facility] [place] [facility] [address] [id number] [place] [address] January, [facility] [place] [facility] [address] [id number] [place] [address] January, [facility] [place] [facility] [address] [id number] [place] [address] January, [facility] [place] [facility] [address] [id number] [place] [address] January, [facility] [place] [facility] [address] [id number] [place] [address] January, [facility] [place] [facility] [address] [id number] [place] [address] January, [facility] [place] [facility] [address] [id number] [place] [address] January, [facility] [place] [facility] [address] [id number] [place] [address] Dec, [facility] [place] [facility] [address] [id number] [place] [address] Dec, [facility] [place] [facility] [address] [id number] [place] [address] Dec, [facility] [place] [facility] [address] [id number] [place] [address] Dec, [facility] [place] [facility] [address] [id number] [place] [address] Dec, [facility] [place] [facility] [address] [id number] [place] [address] Dec, [facility] [place] [facility] [address] [id number] [place] [address] Dec, [facility] [place] [facility] [address] [id number] [place] [address] Dec, [facility] [place] [facility] [address] [id number] [place] [address] Dec, [facility] [place] [facility] [address] [id number] [place] [address] Dec, [facility] [place] [facility] [address] [id number] [place] [address] Nov, [facility] [place] [facility] [address] [id number] [place] [address] Nov, [facility] [place] [facility] [address] [id number] [place] [address] 07 Oct, 2013 [facility] [place] [facility] [address] [id number] [place] [address] Oct, [facility] [place] [facility] [address] [id number] [place] [address] Oct, [facility] [place] [facility] [address] [id number] [place] [address] Sep, [facility] [place] [facility] [address] [id number] [place] [address] Sep, [facility] [place] [facility] [address] [id number] [place] [address] Sep, [facility] [place] [facility] [address] [id number] [place] [address] Sep, [facility] [place] [facility] [address] [id number] [place] [address] Sep, [facility] [place] [facility] [address] [id number] [place] [address] Sep, [facility] [place] [facility] [address] [id number] [place] [address] Sep, [facility] [place] [facility] [address] [id number] [place] [address] Sep, [facility] [place] [facility] [address] [id number] [place] [address] Sep, [facility] [place] [facility] [address] [id number] [place] [address] Sep, [facility] [place] [facility] [address] [id number] [place] [address] Sep, [facility] [place] [facility] [address] [id number] [place] [address] Sep, [facility] [place] [facility] [address] [id number] [place] [address] Aug, [facility] [place] [facility] [address] [id number] [place] [address] Aug, [facility] [place] [facility] [address] [id number] [place] [address] Aug, 2012 [facility] [place] [facility] [address] [id number] [place] [address] Aug, [facility] [place] [facility] [address] [id number] [place] [address] Jul, [facility] [place] [facility] [address] [id number] [place] [address] Jul, [facility] [place] [facility] [address] [id number] [place] [address] Jun, [facility] [place] [facility] [address] [id number] [place] [address] Jun, [facility] [place] [facility] [address] [id number] [place] [address] Jun, [facility] [place] [facility] [address] [id number] [place] [address] Jun, [facility] [place] [facility] [address] [id number] [place] [address] Jun, [facility] [place] [facility] [address] [id number] [place] [address] Jun, [facility] [place] [facility] [address] [id number] [place] [address] Jun, [facility] [place] [facility] [address] [id number] [place] [address] Jun, [facility] [place] [facility] [address] [id number] [place] [address] 24 May, 2012 [facility] [place] [facility] [address] [id number] [place] [address] 23 Sep, 2012 [facility] [place] [facility] [address] [id number] [place] [address] 18 Sep, 2012 [facility] [place] [facility] [address] [id number] [place] [address] 13 Sep, 2012 [facility] [place] [facility] [address] [id number] [facility] [address] May, 2012 [facility] [place] [facility] [address] [id number] [facility] [place] [address] May, [facility] [place] [facility] [address] [id number] [facility] [place] [address] May, [facility] [place] [facility] [address] [id number] [facility] [place] [address] Apr, [facility] [place] [facility] [address] [id number] [place] [address] Apr, [facility] [place] [facility] [address] [id number] [place] [address] Apr, [facility] [place] [facility] [address] [id number] [place] [address] Apr, [facility] [place] [facility] [address] [id number] [facility] [place] [address] Apr, [facility] [place] [facility] [address] [id number] [facility] [place] [address] Apr, [facility] [place] [facility] [address] [id number] [facility] [place] [address] Apr, [facility] [place] [facility] [address] [id number] [facility] [place] [address] Mar, [facility] [place] [facility] [address] [id number] [facility] [place] [address] Mar, [facility] [place] [facility] [address] [id number] [facility] [place] [address] Mar, [facility] [place] [facility] [address] [id number] [facility] [place] [address] Mar, [facility] [place] [facility] [address] [id number] [facility] [place] [address] Mar, [facility] [place] [facility] [address] [id number] [facility] [place] [address] Mar, [facility] [place] [facility] [address] [id number] [facility] [place] [address] Mar, [facility] [place] [facility] [address] [id number] [place] [address] Mar, [facility] [place] [facility] [address] [id number] [place] [address] Feb, [facility] [place] [facility] [address] [id number] [place] [address] Feb, [facility] [place] [facility] [address] [id number] [place] [address] Feb, [facility] [place] [facility] [address] [id number] [place] [address] January, [facility] [place] [facility] [address] [id number] [place] [address] January, [facility] [place] [facility] [address] [id number] [place] [address] January, [facility] [place] [facility] [address] [id number] [place] [address] January, [facility] [place] [facility] [address] [id number] [place] [address] January, [facility] [place] [facility] [address] [id number] [place] [address] January, [facility] [place] [facility] [address] [id number] [place] [address] January, [facility] [place] [facility] [address] [id number] [place] [address] January, [facility] [address] [id number] [place] [address] Dec, [facility] [address] [id number] [place] [address] Dec, [facility] [address] [id number] [place] [address] Dec, [facility] [address] [id number] [place] [address] Dec, [facility] [address] [id number] [place] [address] Dec, [facility] [address] [id number] [place] [address] 22 Nov, 2012 [facility] [address] [id number] [place] [address] 21 Nov, 2012 [facility] [address] [id number] [place] [address] 19 Nov, 2012 [facility] [address] [id number] [place] [address] 18 Nov, 2012 [facility] [address] [id number] [place] [address] 18 Nov, 2012 [facility] [address] [id number] [place] [address] 14 Nov, 2012 [facility] [address] [id number] [place] [address] Nov, [facility] [address] [id number] [place] [address] Nov, [facility] [address] [id number] [place] [address] Oct, [facility] [address] [id number] [place] [address] 21 Oct, 2012 [facility] [address] [id number] [place] [address] 12 Oct, 2012 [facility] [address] [id number] [place] [address] 08 Oct, 2012 [facility] [address] [id number] [place] [address] 07 Oct, 2012 [facility] [address] [id number] [place] [address] 07 Oct, 2012 [facility] [address] [id number] [place] [address] 05 Oct, 2012 [facility] [address] [id number] [place] [address] 04 Oct, 2012 [facility] [address] [id number] [place] [address] 04 Oct, 2012 [facility] [address] [id number] [place] [address] Sep, [facility] [address] [id number] [place] [address] Sep, [facility] [address] [id number] [place] [address] Sep, [facility] [address] [id number] [place] [address] Sep, [facility] [address] [id number] [place] [address] Sep, [facility] [address] [id number] [place] [address] Sep, [facility] [address] [id number] [place] [address] Aug, [facility] [address] [id number] [place] [address] Aug, [facility] [address] [id number] [place] [address] Aug, [facility] [address] [id number] [place] [address] Aug, [facility] [address] [id number] [place] [address] Aug, [facility] [address] [id number] [place] [address] Aug, [facility] [address] [id number] [place] [address] Aug, [facility] [address] [id number] [place] [address] Aug, [facility] [address] [id number] [place] [address] Aug, [facility] [address] [id number] [place] [address] Jul, [facility] [id number] [place] [address] Jul, [facility] [address] [address] Jul, [facility] [id number] [place] [address] Jul, [facility] [address] [address] Nov, [facility] [address] [address] Sep, [facility] [address] [address] Aug, [facility] [address] [address] Aug, [facility] [address] [address] Aug, [facility] [id number] [place] [address] Jul, IMMUNIZATIONS No Known Immunizations SOCIAL HISTORY Never Assessed REASON FOR VISIT PLAN OF CARE VITAL SIGNS Height 74 in 2014-02-09 Weight 252 lbs 2014-02-09 Temperature 98.6 degrees Fahrenheit 2014-02-09 Heart Rate 94 bpm 2014-02-09 Respiratory Rate 20 2014-02-09 Blood pressure systolic 148 mmHg 2014-02-09 Blood pressure diastolic 82 mmHg 2014-02-09 MEDICATIONS Unknown Medications RESULTS No Results PROCEDURES Procedure Date Ordered Result Body Site MEASURE BLOOD OXYGEN LEVEL February 09, 2014 INSTRUCTIONS MEDICATIONS ADMINISTERED No Known [...]
--- OUTSIDE RECORDS SUMMARY | 2020-01-01 11:13 | XMS REPORT ---
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 Active 840527841 Problem Abdominal pain R10.9 Active 98211 001 Problem Change in bowel habit R19.4 Active 10668131 Problem Coronary atherosclerosis due to lipid rich plaque I25.83 Active 49390826 Problem Type 2 diabetes mellitus with complication E11.8 Active 89769689 Problem Impotence N52.9 Active 760353379 Problem Family history of colon cancer Z80.0 Active 270663701 Problem Diabetic neuropathy, painful E11.40 A ctive 756103464 Problem Arm paresthesia, right R20.2 Active 08175864 Problem Gastroesophageal reflux disease without esophagitis K21.9 Active 034483177 Problem Drug abuse, opioid type F11.10 Active 6842323 Problem COPD exacerbation J44.1 Active 19 5649268 Problem Obstructive sleep apnea syndrome G47.33 Active 08846734 Problem Diverticulitis K57.92 Active 25673 6006 Problem Pain of right upper extremity M79.601 Active 660734992 Problem Respiratory bronchiolitis interstitial lung disease J84.115 Active 074682914 Problem Hypoxia R09.02 Active 099698894 Problem Interstitial lung disease J84.9 Acti ve [id number] ALLERGIES No Information ENCOUNTERS Encounter Location Date Diagnosis [facility] [place] [address] [id number] [place] [address] Aug, [facility] [place] [address] [id number] [place] [address] Aug, Diabetic neuropathy, painful E11.40 ; In terstitial lung disease J84.9 ; Chronic cough R05 ; Type 2 diabetes mellitus with complication E11.8 and custodial current use of insulin Z79.4 [facility] [place] [address] [address] Jul, [facility] [place] [address] [address] Jul, [facility] [place] [address] [address] Jul, Diabetic neuropathy, painful E11.40 [place] [address] [address] Jul, Type 2 diabetes mellitus with complicati on E11.8 [place] [address] [address] Jun, Diabetic neuropathy, painful E11.40 [place] [address] [address] Jun, [facility] [address] [facility] [id number] [place] [address] Jun, Type 2 diabetes mellitus wit h complication E11.8 ; Other viral agents as the cause of diseases classified elsewhere B97.89 ; Acute upper respiratory infection, unspecified J06.9 ; Acute recurrent maxillary sinusitis J01.01 ; Sore throat J02.9 and Headache R51 [address] [address] Jun, Right lower quadrant abdominal pain R10. 31 and Type 2 diabetes mellitus with complication E11.8 [place] [address] [address] May, Diabetic neuropathy, painful E11.[address] [address] May, COPD exacerbation J44.1 and Type 2 diabe chidi mellitus with complication E11.8 [place] [address] [address] Apr, Diabetic neuropathy, painful E11.40 [place] [address] [place] [id number] [place] [address] Apr, Diabetic neuropathy, painful E11.40 [facility] [place] [address] [address] Mar, Bronchitis J40 [place] [address] [address] January, Type 2 diabetes mellitus with complicati [...] and Cervical spinal stenosis M48.02 [facility] [place] [address] [address] January, Viral gastroenteritis A08.[address] [address] Dec, Diabetic neuropathy, painful E11.40 [place] [address] [id number] Oct, [address] [address] Oct, Acute right-sided weakness M62.89 and Sl urring of speech R47.[address] [address] Sep, Type 2 diabetes mellitus with complicati on E11.8 ; Diabetic neuropathy, painful E11.40 ; Impotence N52.9 ; Coronary atherosclerosis due to lipid rich plaque I25.83 ; custodial current use of insulin Z79.4 ; Interstitial lung disease J84.9 ; Hypoxia R09.02 ; Essential hypertension I10 and Gastroesophageal reflux disease without esophagitis K21.9 [facility] IN [place] [id number] [place] [address] Sep, Bronchitis J40 [facility] [address] [facility] [id number] [place] [address] Aug, Gastroenteritis and colitis, viral A08.4 [facility] [place] [address] [address] Aug, [facility] [place] [address] [address] Jun, Type 2 diabetes mellitus with complicati on E11.8 ; Diabetic neuropathy, painful E11.40 ; Impotence N52.9 ; Coronary atherosclerosis due to lipid rich plaque I25.83 ; 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 ; Interstitial lung disease J84.9 ; Hypoxia R09.02 and Essential hypertension I10 [facility] [place] [address] [address] 30 May, 2016 Bronchitis J40 [facility] [place] [address] [address] 29 May, 2016 [facility] [place] [address] [address] May, Pain of right upper extremity M79.601 [facility] [place] [address] [address] May, [facility] [place] [address] [address] 15 May, 2016 [facility] [place] [address] [address] 07 May, 2016 Right hand pain M79.641 [facility] [place] [address] [address] Apr, [facility] [place] [address] [address] Apr, [facility] [place] [address] [address] Mar, [facility] [place] [address] [address] Mar, Essential hypertension I10 [place] [address] [address] Feb, [place] [address] [address] Feb, Interstitial lung disease J84.9 and Bron chitis J40 [place] [address] [address] Feb, [place] [address] [address] Feb, Type 2 diabetes mellitus with complicati on E11.8 ; Impotence N52.9 ; Coronary atherosclerosis due to lipid rich plaque I25.83 ; custodial current use of insulin Z79.4 and Diabetic neuropathy, painful E11.40 [place] [address] [address] January, [place] [address] [address] January, Arm paresthesia, right R20.2 and Pain of right upper extremity M79.601 [place] [address] [address] Dec, Lumbar strain S39.012A [place] [address] [address] Nov, Diabetic neuropathy, painful E11.40 ; Re spiratory bronchiolitis interstitial lung disease J84.115 ; Pain of right upper extremity M79.601 and Arm paresthesia, right R20.2 [place] [address] [address] Nov, Diabetic neuropathy, painful E11.40 [place] [address] [address] Sep, Type 2 diabetes mellitus with complicati on E11.8 ; Impotence N52.9 ; Coronary atherosclerosis due to lipid rich plaque I25.83 ; 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 ; Diabetic neuropathy, painful E11.40 ; Chest pain R07.9 and Restless leg G25.81 [place] [address] [address] Sep, [place] [address] [address] Jul, COPD (chronic obstructive pulmonary dise ase) with acute bronchitis J44.0 [place] [address] [address] Jun, Abdominal pain R10.9 ; Family history of colon cancer Z80.0 and Diverticulitis K57.92 [place] [address] [address] Jun, Abdominal pain R10.9 and Diverticulitis K57.92 [place] [address] [address] Apr, Diabetes with other specified manifestat ions, type II or unspecified type, not stated as uncontrolled 250.80 ; Coronary atherosclerosis of unspecified type of vessel, rosebud or graft 414.00 ; Unspecified essential hypertension 401.9 ; Impotence of organic origin 607.84 ; Sleep apnea 780.57 and Interstitial lung disease 515 [place] [address] [address] Dec, [place] [address] [address] Dec, [place] [address] [address] Nov, [place] [address] [address] Nov, [place] [address] [address] Nov, [place] [address] [address] Nov, [place] [address] [address] Nov, [facility] [place] [facility] [address] [id number] [place] [address] Nov, 2014 [facility] [place] [facility] [address] [id number] [place] [address] Nov, 2014 [facility] [place] [facility] [address] [id number] [place] [address] Nov, 2014 [facility] [place] [facility] [address] [id number] [place] [address] Nov, 2014 [facility] [place] [facility] [address] [id number] [place] [address] Nov, 2014 [facility] [place] [facility] [address] [id number] [place] [address] Oct, 2014 [facility] [place] [facility] [address] [id number] [place] [address] Oct, 2014 [facility] [place] [facility] [address] [id number] [place] [address] Oct, 2014 [facility] [place] [facility] [address] [id number] [place] [address] Oct, 2014 [facility] [place] [facility] [address] [id number] [place] [address] Oct, 2014 [facility] [place] [facility] [address] [id number] [place] [address] Oct, 2014 [facility] [place] [facility] [address] [id number] [place] [address] Oct, 2014 [facility] [place] [facility] [address] [id number] [place] [address] Oct, 2014 [facility] [place] [facility] [address] [id number] [place] [address] Oct, 2014 [facility] [place] [facility] [address] [id number] [place] [address] Oct, 2014 [facility] [place] [facility] [address] [id number] [place] [address] Oct, 2014 [facility] [place] [facility] [address] [id number] [place] [address] Jul, [facility] [place] [facility] [address] [id number] [place] [address] Jul, 2013 [facility] [place] [facility] [address] [id number] [place] [address] 29 Jun, 2013 [facility] [place] [facility] [address] [id number] [place] [address] 29 Jun, 2013 [facility] [place] [facility] [address] [id number] [place] [address] 17 Jun, 2014 [facility] [place] [facility] [address] [id number] [place] [address] 17 Jun, 2014 [facility] [place] [facility] [address] [id number] [place] [address] 15 Jun, 2014 [facility] [place] [facility] [address] [id number] [place] [address] 15 Jun, 2014 [facility] [place] [facility] [address] [id number] [place] [address] 14 Jun, 2013 [facility] [place] [facility] [address] [id number] [place] [address] 14 Jun, 2014 [facility] [place] [facility] [address] [id number] [place] [address] 13 Jun, 2013 [facility] [place] [facility] [address] [id number] [place] [address] 13 Jun, 2013 [facility] [place] [facility] [address] [id number] [place] [address] 08 Jun, 2013 [facility] [place] [facility] [address] [id number] [place] [address] 08 Jun, 2014 [facility] [place] [facility] [address] [id number] [place] [address] Jun, 2013 [facility] [place] [facility] [address] [id number] [place] [address] Jun, 2013 [facility] [place] [facility] [address] [id number] [place] [address] 30 May, 2014 [facility] [place] [facility] [address] [id number] [facility] [place] [address] 30 May, 2013 [facility] [place] [facility] [address] [id number] [place] [address] May, 2013 [facility] [place] [facility] [address] [facility] [id number] [place] [address] May, 2013 [facility] [place] [facility] [address] [id number] [place] [address] May, 2013 [facility] [place] [facility] [address] [facility] [id number] [place] [address] May, 2013 [facility] [place] [facility] [address] [id number] [place] [address] Apr, [facility] [place] [facility] [address] [id number] [place] [address] Apr, [facility] [place] [facility] [address] [id number] [place] [address] Apr, [facility] [place] [facility] [address] [id number] [place] [address] Apr, [facility] [place] [facility] [address] [id number] [place] [address] Apr, [facility] [place] [facility] [address] [id number] [place] [address] Apr, [facility] [place] [facility] [address] [id number] [place] [address] Apr, [facility] [place] [facility] [address] [id number] [place] [address] Apr, [facility] [place] [facility] [address] [id number] [place] [address] Apr, [facility] [place] [facility] [address] [id number] [place] [address] Apr, [facility] [place] [facility] [address] [id number] [place] [address] Apr, [facility] [place] [facility] [address] [id number] [facility] [place] [address] Apr, [facility] [place] [facility] [address] [facility] [id number] [facility] [place] [address] Mar, [facility] [place] [facility] [address] [facility] [id number] [facility] [place] [address] Mar, [facility] [place] [facility] [address] [id number] [facility] [place] [address] Mar, [facility] [place] [facility] [address] [facility] [id number] [facility] [place] [address] Mar, [facility] [place] [facility] [address] [facility] [id number] [facility] [place] [address] Mar, [facility] [place] [facility] [address] [id number] [place] [address] Mar, [facility] [place] [facility] [address] [id number] [place] [address] Mar, [facility] [place] [facility] [address] [id number] [place] [address] Mar, [facility] [place] [facility] [address] [facility] [id number] [place] [address] Mar, [facility] [place] [facility] [address] [id number] [place] [address] Mar, [facility] [place] [facility] [address] [id number] [place] [address] Mar, [facility] [place] [facility] [address] [id number] [place] [address] Feb, [facility] [place] [facility] [address] [facility] [id number] [facility] [place] [address] Feb, [facility] [place] [facility] [address] [id number] [place] [address] Feb, [facility] [place] [facility] [address] [id number] [place] [address] Feb, [facility] [place] [facility] [address] [id number] [place] [address] Feb, [facility] [place] [facility] [address] [facility] [id number] [place] [address] Feb, [facility] [place] [facility] [address] [facility] [id number] [place] [address] Feb, [facility] [place] [facility] [address] [id number] [place] [address] Feb, [facility] [place] [facility] [address] [id number] [place] [address] Feb, [facility] [place] [facility] [address] [facility] [id number] [place] [address] Feb, [facility] [place] [facility] [address] [id number] [place] [address] January, [facility] [place] [facility] [address] [id number] [place] [address] January, [facility] [place] [facility] [address] [id number] [place] [address] January, [facility] [place] [facility] [address] [id number] [place] [address] January, [facility] [place] [facility] [address] [id number] [place] [address] January, [facility] [place] [facility] [address] [id number] [place] [address] January, [facility] [place] [facility] [address] [id number] [place] [address] January, [facility] [place] [facility] [address] [id number] [place] [address] January, [facility] [place] [facility] [address] [facility] [id number] [place] [address] January, [facility] [place] [facility] [address] [id number] [place] [address] January, [facility] [place] [facility] [address] [id number] [place] [address] January, [facility] [place] [facility] [address] [id number] [place] [address] January, [facility] [place] [facility] [address] [id number] [place] [address] January, [facility] [place] [facility] [address] [facility] [id number] [place] [address] January, [facility] [place] [facility] [address] [id number] [place] [address] January, [facility] [place] [facility] [address] [id number] [place] [address] January, [facility] [place] [facility] [address] [facility] [id number] [place] [address] Dec, [facility] [place] [facility] [address] [id number] [place] [address] Dec, [facility] [place] [facility] [address] [id number] [place] [address] Dec, [facility] [place] [facility] [address] [id number] [place] [address] Dec, [facility] [place] [facility] [address] [id number] [place] [address] Dec, [facility] [place] [facility] [address] [id number] [place] [address] Dec, [facility] [place] [facility] [address] [id number] [place] [address] Dec, [facility] [place] [facility] [address] [id number] [place] [address] Dec, [facility] [place] [facility] [address] [id number] [place] [address] Dec, [facility] [place] [facility] [address] [id number] [place] [address] Dec, [facility] [place] [facility] [address] [id number] [place] [address] Nov, [facility] [place] [facility] [address] [id number] [place] [address] Nov, [facility] [place] [facility] [address] [id number] [place] [address] 07 Oct, 2013 [facility] [place] [facility] [address] [id number] [place] [address] Oct, [facility] [place] [facility] [address] [id number] [place] [address] Oct, [facility] [place] [facility] [address] [id number] [place] [address] Sep, [facility] [place] [facility] [address] [id number] [place] [address] Sep, [facility] [place] [facility] [address] [id number] [place] [address] Sep, [facility] [place] [facility] [address] [id number] [place] [address] Sep, [facility] [place] [facility] [address] [id number] [place] [address] Sep, [facility] [place] [facility] [address] [id number] [place] [address] Sep, [facility] [place] [facility] [address] [id number] [place] [address] Sep, [facility] [place] [facility] [address] [id number] [place] [address] Sep, [facility] [place] [facility] [address] [id number] [place] [address] Sep, [facility] [place] [facility] [address] [id number] [place] [address] Sep, [facility] [place] [facility] [address] [id number] [place] [address] Sep, [facility] [place] [facility] [address] [id number] [place] [address] Sep, [facility] [place] [facility] [address] [id number] [place] [address] Aug, [facility] [place] [facility] [address] [id number] [place] [address] Aug, [facility] [place] [facility] [address] [id number] [place] [address] Aug, [facility] [place] [facility] [address] [id number] [place] [address] Aug, [facility] [place] [facility] [address] [id number] [place] [address] Jul, [facility] [place] [facility] [address] [id number] [place] [address] Jul, [facility] [place] [facility] [address] [id number] [place] [address] Jun, [facility] [place] [facility] [address] [id number] [place] [address] Jun, [facility] [place] [facility] [address] [id number] [place] [address] Jun, [facility] [place] [facility] [address] [id number] [place] [address] Jun, [facility] [place] [facility] [address] [id number] [place] [address] Jun, [facility] [place] [facility] [address] [id number] [place] [address] Jun, [facility] [place] [facility] [address] [id number] [place] [address] Jun, [facility] [place] [facility] [address] [id number] [place] [address] Jun, [facility] [place] [facility] [address] [id number] [place] [address] 24 May, 2012 [facility] [place] [facility] [address] [id number] [place] [address] 23 Sep, 2012 [facility] [place] [facility] [address] [id number] [place] [address] 18 Sep, 2012 [facility] [place] [facility] [address] [id number] [place] [address] 13 Sep, 2012 [facility] [place] [facility] [address] [id number] [place] [address] May, 2012 [facility] [place] [facility] [address] [id number] [facility] [place] [address] May, 2012 [facility] [place] [facility] [address] [facility] [id number] [facility] [place] [address] May, [facility] [place] [facility] [address] [facility] [id number] [facility] [place] [address] Apr, [facility] [place] [facility] [address] [id number] [facility] [place] [address] Apr, [facility] [place] [facility] [address] [facility] [id number] [facility] [place] [address] Apr, [facility] [place] [facility] [address] [facility] [id number] [facility] [place] [address] Apr, [facility] [place] [facility] [address] [id number] [place] [address] Apr, [facility] [place] [facility] [address] [id number] [facility] [place] [address] Apr, [facility] [place] [facility] [address] [facility] [id number] [facility] [place] [address] Apr, [facility] [place] [facility] [address] [id number] [facility] [place] [address] Mar, [facility] [place] [facility] [address] [facility] [id number] [place] [address] Mar, [facility] [place] [facility] [address] [id number] [place] [address] Mar, [facility] [place] [facility] [address] [facility] [id number] [facility] [place] [address] Mar, [facility] [place] [facility] [address] [id number] [place] [address] Mar, 2012 [facility] [place] [facility] [address] [facility] [id number] [place] [address] Mar, [facility] [place] [facility] [address] [id number] [facility] [place] [address] Mar, [facility] [place] [facility] [address] [facility] [id number] [place] [address] Mar, [facility] [place] [facility] [address] [id number] [place] [address] Feb, [facility] [place] [facility] [address] [id number] [place] [address] Feb, [facility] [place] [facility] [address] [id number] [place] [address] Feb, [facility] [place] [facility] [address] [id number] [place] [address] January, [facility] [place] [facility] [address] [id number] [place] [address] January, [facility] [place] [facility] [address] [id number] [place] [address] January, [facility] [place] [facility] [address] [id number] [place] [address] January, [facility] [place] [facility] [address] [id number] [place] [address] January, [facility] [place] [facility] [address] [id number] [place] [address] January, [facility] [address] [id number] [place] [address] January, [facility] [address] [id number] [place] [address] January, [facility] [address] [id number] [place] [address] Dec, [facility] [address] [id number] [place] [address] Dec, [facility] [address] [id number] [place] [address] Dec, [facility] [address] [id number] [place] [address] Dec, [facility] [address] [id number] [place] [address] Dec, [facility] [address] [id number] [place] [address] Nov, [facility] [address] [id number] [place] [address] Nov, [facility] [address] [id number] [place] [address] Nov, [facility] [address] [id number] [place] [address] 18 Nov, 2012 [facility] [address] [id number] [place] [address] 18 Nov, 2012 [facility] [address] [id number] [place] [address] 14 Nov, 2012 [facility] [address] [id number] [place] [address] Nov, [facility] [address] [id number] [place] [address] Nov, [facility] [address] [id number] [place] [address] Oct, [facility] [address] [id number] [place] [address] Oct, [facility] [address] [id number] [place] [address] 12 Oct, 2012 [facility] [address] [id number] [place] [address] 08 Oct, 2012 [facility] [address] [id number] [place] [address] 07 Oct, 2012 [facility] [address] [id number] [place] [address] 07 Oct, 2012 [facility] [address] [id number] [place] [address] 05 Oct, 2012 [facility] [address] [id number] [place] [address] 04 Oct, 2012 [facility] [address] [id number] [facility] [place] [address] 04 Oct, 2012 [facility] [address] [id number] [place] [address] Sep, [facility] [address] [id number] [place] [address] Sep, [facility] [address] [id number] [place] [address] Sep, [facility] [address] [id number] [place] [address] Sep, [facility] [address] [id number] [place] [address] Sep, [facility] [address] [id number] [place] [address] Sep, [facility] [address] [id number] [place] [address] Aug, [facility] [address] [id number] [place] [address] Aug, [facility] [address] [id number] [place] [address] Aug, [facility] [address] [id number] [place] [address] Aug, [facility] [address] [id number] [place] [address] Aug, [facility] [address] [id number] [place] [address] Aug, [facility] [address] [id number] [place] [address] Aug, [facility] [address] [id number] [place] [address] Aug, [facility] [address] [id number] [place] [address] Aug, [facility] [address] [id number] [place] [address] Jul, [facility] [id number] [place] [address] Jul, [facility] [place] [address] [address] Jul, [facility] [place] [address] [address] Jul, [facility] [place] [address] [address] Nov, [facility] [place] [address] [address] Sep, [facility] [place] [address] [address] Aug, [facility] [place] [address] [address] Aug, [facility] [place] [address] [address] Aug, [facility] [place] [address] [address] Jul, IMMUNIZATIONS No Known Immunizations SOCIAL HISTORY [...]
--- OUTSIDE RECORDS SUMMARY | 2020-01-01 11:13 | XMS REPORT ---
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10 Active 7440661 Problem COPD exacerbation J44.1 Active 19 7725940 Problem Obstructive sleep apnea syndrome G47.33 Active 57320383 Problem Diverticulitis K57.92 Active 49155 6006 Problem Pain of right upper extremity M79.601 Active 637520727 Problem Respiratory bronchiolitis interstitial lung disease J84.115 Active 197880307 Problem Hypoxia R09.02 Active 921855466 Problem Interstitial lung disease J84.9 Acti ve [id number] ALLERGIES No Information ENCOUNTERS Encounter Location Date Diagnosis [facility] [address] [id number] [place] [address] Aug, [facility] [address] [id number] [place] [address] Aug, Diabetic neuropathy, painful E11.40 ; In terstitial lung disease J84.9 ; Chronic cough R05 ; Type 2 diabetes mellitus with complication E11.8 and 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 [place] [address] [address] Jul, [facility] [address] [address] Jul, [place] [address] [address] Jul, Diabetic neuropathy, painful E11.40 [place] [address] [address] Jul, Type 2 diabetes mellitus with complicati on E11.8 [place] [address] [address] Jun, Diabetic neuropathy, painful E11.40 [place] [address] [address] Jun, [facility] [address] [facility] [id number] [place] [address] Jun, Type 2 diabetes mellitus wit h complication E11.8 ; Other viral agents as the cause of diseases classified elsewhere B97.89 ; Acute upper respiratory infection, unspecified J06.9 ; Acute recurrent maxillary sinusitis J01.01 ; Sore throat J02.9 and Headache R51 [place] [address] [address] Jun, Right lower quadrant abdominal pain R10. 31 and Type 2 diabetes mellitus with complication E11.8 [place] [address] [address] May, Diabetic neuropathy, painful E11.[address] [address] May, COPD exacerbation J44.1 and Type 2 diabe chidi mellitus with complication E11.8 [place] [address] [address] Apr, Diabetic neuropathy, painful E11.40 [place] [address] [place] [id number] [place] [address] Apr, Diabetic neuropathy, painful E11.40 [facility] [place] [address] [place] [id number] [place] [address] Mar, Bronchitis J40 [place] [address] [address] January, Type 2 diabetes mellitus with complicati [...] Cervical spinal stenosis M48.02 [facility] [place] [id number] [place] [address] January, Viral gastroenteritis A08.4 [place] [address] [address] Dec, Diabetic neuropathy, painful E11.40 [place] [id number] [place] [id number] Oct, [address] [address] Oct, Acute right-sided weakness M62.89 and Sl urring of speech R47.81 [place] [address] [place] [id number] [place] [address] Sep, Type 2 diabetes mellitus with complicati on E11.8 ; Diabetic neuropathy, painful E11.40 ; Impotence N52.9 ; Coronary atherosclerosis due to lipid rich plaque I25.83 ; 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 [place] [address] [place] [id number] [address] 07 Sep, 2016 Bronchitis J40 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 ; Interstitial lung disease J84.9 ; Hypoxia R09.02 and Essential hypertension I10 [facility] [address] [address] 30 May, 2016 Bronchitis J40 [facility] [address] [address] 29 May, 2016 [facility] [address] [address] 20 May, 2016 Pain of right upper extremity M79.601 [facility] [address] [address] May, [facility] [address] [address] 15 May, 2016 [facility] [address] [address] 07 May, 2016 Right hand pain M79.641 [facility] [address] [address] Apr, [facility] [address] [address] Apr, [facility] [address] [address] Mar, [facility] [address] [address] Mar, Essential hypertension I10 [place] [address] [address] Feb, [place] [address] [address] Feb, Interstitial lung disease J84.9 and Bron chitis J40 [place] [address] [address] Feb, [place] [address] [address] Feb, Type 2 diabetes mellitus with complicati on E11.8 ; Impotence N52.9 ; Coronary atherosclerosis due to lipid rich plaque I25.83 ; 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 and Diabetic neuropathy, painful E11.40 [place] [address] [address] January, [place] [address] [address] January, Arm paresthesia, right R20.2 and Pain of right upper extremity M79.601 [place] [address] [address] Dec, Lumbar strain S39.012A [place] [address] [address] Nov, Diabetic neuropathy, painful E11.40 ; Re spiratory bronchiolitis interstitial lung disease J84.115 ; Pain of right upper extremity M79.601 and Arm paresthesia, right R20.2 [place] [address] [address] Nov, Diabetic neuropathy, painful E11.40 [place] [address] [address] Sep, Type 2 diabetes mellitus with complicati on E11.8 ; Impotence N52.9 ; Coronary atherosclerosis due to lipid rich plaque I25.83 ; 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 ; Diabetic neuropathy, painful E11.40 ; Chest pain R07.9 and Restless leg G25.81 [place] [address] [address] Sep, [place] [address] [address] Jul, COPD (chronic obstructive pulmonary dise ase) with acute bronchitis J44.[address] [address] Jun, Abdominal pain R10.9 ; Family history of colon cancer Z80.0 and Diverticulitis K57.[address] [address] Jun, Abdominal pain R10.9 and Diverticulitis K57.[address] [address] Apr, Diabetes with other specified manifestat ions, type II or unspecified type, not stated as uncontrolled 250.80 ; Coronary atherosclerosis of unspecified type of vessel, [place] or graft 414.00 ; Unspecified essential hypertension 401.9 ; Impotence of organic origin 607.84 ; Sleep apnea 780.57 and Interstitial lung disease 515 [place] [address] [address] Dec, [address] [address] Dec, [place] [address] [address] Nov, [place] [address] [address] Nov, [place] [address] [address] Nov, [address] [address] Nov, [address] [address] Nov, 2014 [facility] [place] [facility] [address] [id number] [place] [address] Nov, [facility] [place] [facility] [address] [id number] [place] [address] Nov, 2014 [facility] [place] [facility] [address] [id number] [place] [address] Nov, 2014 [facility] [place] [facility] [address] [id number] [place] [address] Nov, 2014 [facility] [place] [facility] [address] [id number] [place] [address] Nov, 2014 [facility] [place] [facility] [address] [id number] [place] [address] Oct, 2014 [facility] [place] [facility] [address] [id number] [place] [address] Oct, 2014 [facility] [place] [facility] [address] [id number] [place] [address] Oct, 2014 [facility] [place] [facility] [address] [id number] [place] [address] Oct, 2014 [facility] [place] [facility] [address] [id number] [place] [address] Oct, 2014 [facility] [place] [facility] [address] [id number] [place] [address] Oct, 2014 [facility] [place] [facility] [address] [id number] [place] [address] Oct, 2014 [facility] [place] [facility] [address] [id number] [place] [address] Oct, 2014 [facility] [place] [facility] [address] [id number] [place] [address] Oct, 2014 [facility] [place] [facility] [address] [id number] [place] [address] Oct, 2014 [facility] [place] [facility] [address] [id number] [place] [address] Oct, [facility] [place] [facility] [address] [facility] [id number] [place] [address] Jul, 2013 [facility] [place] [facility] [address] [id number] [place] [address] Jul, 2013 [facility] [place] [facility] [address] [id number] [place] [address] Jun, 2013 [facility] [place] [facility] [address] [id number] [place] [address] Jun, 2013 [facility] [place] [facility] [address] [id number] [place] [address] Jun, 2013 [facility] [place] [facility] [address] [id number] [place] [address] Jun, 2013 [facility] [place] [facility] [address] [id number] [place] [address] 15 Jun, 2014 [facility] [place] [facility] [address] [id number] [place] [address] 15 Jun, 2013 [facility] [place] [facility] [address] [id number] [place] [address] 14 Jun, 2014 [facility] [place] [facility] [address] [id number] [place] [address] 14 Jun, 2014 [facility] [place] [facility] [address] [id number] [place] [address] Jun, 2013 [facility] [place] [facility] [address] [id number] [place] [address] Jun, [facility] [place] [facility] [address] [id number] [place] [address] 08 Jun, 2013 [facility] [place] [facility] [address] [id number] [place] [address] 08 Jun, 2014 [facility] [place] [facility] [address] [id number] [place] [address] Jun, 2013 [facility] [place] [facility] [address] [id number] [place] [address] Jun, 2013 [facility] [place] [facility] [address] [id number] [place] [address] May, 2013 [facility] [place] [facility] [address] [id number] [facility] [place] [address] 30 May, 2014 [facility] [place] [facility] [address] [facility] [id number] [facility] [place] [address] May, 2013 [facility] [place] [facility] [address] [id number] [facility] [place] [address] May, 2013 [facility] [place] [facility] [address] [facility] [id number] [place] [address] May, 2013 [facility] [place] [facility] [address] [facility] [id number] [facility] [place] [address] May, [facility] [place] [facility] [address] [id number] [facility] [place] [address] Apr, [facility] [place] [facility] [address] [id number] [place] [address] Apr, [facility] [place] [facility] [address] [id number] [facility] [place] [address] Apr, [facility] [place] [facility] [address] [id number] [place] [address] Apr, [facility] [place] [facility] [address] [id number] [place] [address] Apr, [facility] [place] [facility] [address] [id number] [place] [address] Apr, [facility] [place] [facility] [address] [id number] [place] [address] Apr, [facility] [place] [facility] [address] [id number] [place] [address] Apr, [facility] [place] [facility] [address] [id number] [place] [address] Apr, [facility] [place] [facility] [address] [id number] [place] [address] Apr, [facility] [place] [facility] [address] [id number] [place] [address] Apr, [facility] [place] [facility] [address] [id number] [facility] [place] [address] Apr, [facility] [place] [facility] [address] [id number] [facility] [place] [address] Mar, [facility] [place] [facility] [address] [facility] [id number] [place] [address] Mar, [facility] [place] [facility] [address] [id number] [place] [address] Mar, [facility] [place] [facility] [address] [facility] [id number] [place] [address] Mar, [facility] [place] [facility] [address] [facility] [id number] [facility] [place] [address] Mar, [facility] [place] [facility] [address] [id number] [place] [address] Mar, [facility] [place] [facility] [address] [id number] [place] [address] Mar, [facility] [place] [facility] [address] [id number] [place] [address] Mar, [facility] [place] [facility] [address] [facility] [id number] [place] [address] Mar, [facility] [place] [facility] [address] [id number] [place] [address] Mar, [facility] [place] [facility] [address] [id number] [place] [address] Mar, [facility] [place] [facility] [address] [id number] [place] [address] Feb, [facility] [place] [facility] [address] [facility] [id number] [place] [address] Feb, [facility] [place] [facility] [address] [id number] [place] [address] Feb, [facility] [place] [facility] [address] [id number] [place] [address] Feb, [facility] [place] [facility] [address] [id number] [place] [address] Feb, [facility] [place] [facility] [address] [id number] [place] [address] Feb, [facility] [place] [facility] [address] [id number] [place] [address] Feb, [facility] [place] [facility] [address] [id number] [place] [address] Feb, [facility] [place] [facility] [address] [id number] [place] [address] Feb, [facility] [place] [facility] [address] [facility] [id number] [place] [address] Feb, [facility] [place] [facility] [address] [id number] [place] [address] January, [facility] [place] [facility] [address] [id number] [place] [address] January, [facility] [place] [facility] [address] [id number] [place] [address] January, [facility] [place] [facility] [address] [id number] [place] [address] January, [facility] [place] [facility] [address] [id number] [place] [address] January, [facility] [place] [facility] [address] [id number] [place] [address] January, [facility] [place] [facility] [address] [id number] [place] [address] January, [facility] [place] [facility] [address] [id number] [place] [address] January, [facility] [place] [facility] [address] [id number] [place] [address] January, [facility] [place] [facility] [address] [id number] [place] [address] January, [facility] [place] [facility] [address] [id number] [place] [address] January, [facility] [place] [facility] [address] [id number] [place] [address] January, [facility] [place] [facility] [address] [facility] [id number] [place] [address] January, [facility] [place] [facility] [address] [id number] [place] [address] January, [facility] [place] [facility] [address] [id number] [place] [address] January, [facility] [place] [facility] [address] [id number] [place] [address] January, [facility] [place] [facility] [address] [facility] [id number] [place] [address] Dec, [facility] [place] [facility] [address] [id number] [place] [address] Dec, [facility] [place] [facility] [address] [id number] [place] [address] Dec, [facility] [place] [facility] [address] [id number] [place] [address] Dec, [facility] [place] [facility] [address] [id number] [place] [address] Dec, [facility] [place] [facility] [address] [id number] [place] [address] Dec, [facility] [place] [facility] [address] [id number] [place] [address] Dec, [facility] [place] [facility] [address] [id number] [place] [address] Dec, [facility] [place] [facility] [address] [id number] [place] [address] Dec, [facility] [place] [facility] [address] [id number] [place] [address] Dec, [facility] [place] [facility] [address] [id number] [place] [address] Nov, [facility] [place] [facility] [address] [id number] [place] [address] Nov, [facility] [place] [facility] [address] [id number] [place] [address] 07 Oct, 2013 [facility] [place] [facility] [address] [facility] [id number] [place] [address] Oct, [facility] [place] [facility] [address] [id number] [place] [address] Oct, [facility] [place] [facility] [address] [id number] [place] [address] Sep, [facility] [place] [facility] [address] [id number] [place] [address] Sep, [facility] [place] [facility] [address] [id number] [place] [address] Sep, [facility] [place] [facility] [address] [id number] [place] [address] Sep, [facility] [place] [facility] [address] [id number] [place] [address] Sep, [facility] [place] [facility] [address] [id number] [place] [address] Sep, [facility] [place] [facility] [address] [id number] [place] [address] Sep, [facility] [place] [facility] [address] [id number] [place] [address] Sep, [facility] [place] [facility] [address] [id number] [place] [address] Sep, [facility] [place] [facility] [address] [id number] [place] [address] Sep, [facility] [place] [facility] [address] [id number] [place] [address] Sep, [facility] [place] [facility] [address] [id number] [place] [address] Sep, [facility] [place] [facility] [address] [id number] [place] [address] Aug, [facility] [place] [facility] [address] [id number] [place] [address] Aug, [facility] [place] [facility] [address] [id number] [place] [address] Aug, 2012 [facility] [place] [facility] [address] [id number] [place] [address] Aug, [facility] [place] [facility] [address] [id number] [place] [address] Jul, [facility] [place] [facility] [address] [id number] [place] [address] Jul, [facility] [place] [facility] [address] [id number] [place] [address] Jun, [facility] [place] [facility] [address] [id number] [place] [address] Jun, [facility] [place] [facility] [address] [id number] [place] [address] Jun, [facility] [place] [facility] [address] [id number] [place] [address] Jun, [facility] [place] [facility] [address] [id number] [place] [address] Jun, [facility] [place] [facility] [address] [id number] [place] [address] Jun, [facility] [place] [facility] [address] [id number] [place] [address] Jun, [facility] [place] [facility] [address] [id number] [place] [address] Jun, [facility] [place] [facility] [address] [id number] [place] [address] 24 May, 2012 [facility] [place] [facility] [address] [id number] [place] [address] 23 Sep, 2012 [facility] [place] [facility] [address] [id number] [place] [address] 18 Sep, 2012 [facility] [place] [facility] [address] [id number] [place] [address] 13 Sep, 2012 [facility] [place] [facility] [address] [id number] [facility] [place] [address] May, 2012 [facility] [place] [facility] [address] [id number] [facility] [place] [address] May, [facility] [place] [facility] [address] [facility] [id number] [facility] [place] [address] May, [facility] [place] [facility] [address] [id number] [facility] [place] [address] Apr, [facility] [place] [facility] [address] [facility] [id number] [place] [address] Apr, [facility] [place] [facility] [address] [facility] [id number] [place] [address] Apr, [facility] [place] [facility] [address] [facility] [id number] [place] [address] Apr, [facility] [place] [facility] [address] [id number] [facility] [place] [address] Apr, [facility] [place] [facility] [address] [id number] [facility] [place] [address] Apr, [facility] [place] [facility] [address] [facility] [id number] [facility] [place] [address] Apr, [facility] [address] [id number] [facility] [place] [address] Mar, [facility] [address] [id number] [facility] [place] [address] Mar, [facility] [address] [id number] [facility] [place] [address] Mar, [facility] [address] [facility] [id number] [facility] [place] [address] Mar, [facility] [address] [id number] [facility] [place] [address] Mar, [facility] [address] [facility] [id number] [facility] [place] [address] Mar, [facility] [address] [id number] [facility] [place] [address] Mar, [facility] [address] [id number] [place] [address] Mar, [facility] [address] [id number] [place] [address] Feb, [facility] [address] [id number] [place] [address] Feb, [facility] [address] [id number] [place] [address] Feb, [facility] [address] [id number] [place] [address] January, [facility] [address] [id number] [place] [address] January, [facility] [address] [id number] [place] [address] January, [facility] [address] [id number] [place] [address] January, [facility] [address] [id number] [place] [address] January, [facility] [address] [id number] [place] [address] January, [facility] [address] [id number] [place] [address] January, [facility] [address] [id number] [place] [address] January, [facility] [address] [id number] [place] [address] Dec, [facility] [address] [id number] [place] [address] Dec, [facility] [address] [id number] [place] [address] Dec, [facility] [address] [id number] [place] [address] Dec, [facility] [address] [id number] [place] [address] Dec, [facility] [address] [facility] [id number] [place] [address] 22 Nov, 2012 [facility] [address] [id number] [place] [address] 21 Nov, 2012 [facility] [address] [id number] [place] [address] 19 Nov, 2012 [facility] [address] [id number] [place] [address] 18 Nov, 2012 [facility] [address] [facility] [id number] [place] [address] 18 Nov, 2012 [facility] [address] [id number] [place] [address] 14 Nov, 2012 [facility] [address] [id number] [place] [address] Nov, [facility] [address] [id number] [place] [address] Nov, [facility] [address] [id number] [place] [address] Oct, [facility] [address] [id number] [place] [address] 21 Oct, 2012 [facility] [address] [id number] [place] [address] 12 Oct, 2012 [facility] [address] [id number] [place] [address] 08 Oct, 2012 [facility] [address] [id number] [place] [address] 07 Oct, 2012 [facility] [address] [id number] [place] [address] 07 Oct, 2012 [facility] [address] [id number] [place] [address] 05 Oct, 2012 [facility] [address] [id number] [place] [address] 04 Oct, 2012 [facility] [address] [id number] [place] [address] 04 Oct, 2012 [facility] [address] [id number] [place] [address] Sep, [facility] [address] [id number] [place] [address] Sep, [facility] [address] [id number] [place] [address] Sep, [facility] [address] [id number] [place] [address] Sep, [facility] [address] [id number] [place] [address] Sep, [facility] [address] [id number] [place] [address] Sep, [facility] [address] [id number] [place] [address] Aug, [facility] [address] [id number] [place] [address] Aug, [facility] [address] [id number] [place] [address] Aug, [facility] [address] [id number] [place] [address] Aug, [facility] [address] [id number] [place] [address] Aug, [facility] [address] [id number] [place] [address] Aug, [facility] [address] [id number] [place] [address] Aug, [facility] [address] [id number] [place] [address] Aug, [facility] [address] [id number] [place] [address] Aug, [facility] [address] [id number] [place] [address] Jul, [facility] [id number] [place] [address] Jul, [facility] [address] [address] Jul, [facility] [address] [address] Jul, [facility] [address] [address] Nov, [facility] [address] [address] Sep, [facility] [address] [address] Aug, [facility] [address] [address] Aug, [facility] [address] [address] Aug, [facility] [address] [address] Jul, IMMUNIZATIONS No Known Immunizations SOCIAL HISTORY [...]
--- OUTSIDE RECORDS SUMMARY | 2020-01-01 11:24 | XMS REPORT | Continuity of Care Document ---
Author Organization Unknown Address Unknown Phone Unavailable Allergies Active Description Code Type Severity Reaction Onset Reported/Identified Relationship to Patient Clinical Status Yes No Known Drug Allergies [id number] Drug Allergy Unknown N/A 05/31/2013 Yes clonazepam 1 mg tablet Drug Allergy N/A N/A 05/12/2014 Yes hydrocodone-acetaminophen 7.5-325 mg tablet Drug Allergy N/A N/A 4 Yes Tramadol hcl oral tablet 50 mg 50 mg tablet Drug Allergy N/A N/A 4 Yes ceftriaxone [id number] Drug Aller gy Unknown N/A 07/03/2017 Yes ceftriaxone [id number] Drug Aller gy Moderate N/A 08/11/2018 Medications [...] TYPE 2 W/ COMPLICATIONS (UNSPEC) 08/08/2011 SYLVIE ORE SMELTER, JUDY T 27 2.4 HYPERLIPIDEMIA 08/08/2011 JUDY [...] NELI K 845.00 SPRAIN/STRAIN ANKLE 08/08/2011 MADL ORE SMELTER, TATYANA L 250 .90 DIABETES MELLITUS TYPE 2 WITH COMPLICATION 08/08/2011 MADL ORE SMELTER, TATYANA L 272 .4 HYPERLIPIDEMIA 08/08/2011 MADL ORE SMELTER, TATYANA L 401 .1 ESSENTIAL HYPERTENSION BENIGN 08/08/2011 MADL ORE SMELTER, TATYANA L 845 .00 SPRAIN/STRAIN ANKLE 08/08/2011 MADL ORE SMELTER, TATYANA L 250 .90 DIABETES MELLITUS TYPE 2 WITH COMPLICATION 08/08/2011 MADL ORE SMELTER, TATYANA L 272 .4 HYPERLIPIDEMIA 08/08/2011 MADL ORE SMELTER, TATYANA L 401 .1 ESSENTIAL HYPERTENSION BENIGN 08/08/2011 MADL ORE SMELTER, TATYANA L 845 .00 SPRAIN/STRAIN ANKLE 08/08/2011 MADL ORE SMELTER, TATYANA L 250 .90 DIABETES MELLITUS TYPE 2 WITH COMPLICATION 08/08/2011 MADL ORE SMELTER, TATYANA L 272 .4 HYPERLIPIDEMIA 08/08/2011 MADL ORE SMELTER, TATYANA L 401 .1 ESSENTIAL HYPERTENSION BENIGN 08/08/2011 MADL ORE SMELTER, TATYANA L 845 .00 SPRAIN/STRAIN ANKLE 08/08/2011 SIMPSON DO, NELI K 250.90 DIABETES MELLITUS TYPE 2 WITH COMPLICATION 08/08/2011 SIMPSON DO, NELI K 272.4 HYPERLIPIDEMIA 08/08/2011 SIMPSON DO, NELI K 401.1 ESSENTIAL HYPERTENSION BENIGN 08/08/2011 SIMPSON DO, NELI K 845.00 SPRAIN/STRAIN ANKLE 08/08/2011 [facility], FERNANDA R 250.90 DIABETES MELLITUS TYPE 2 WITH COMPLICATION 08/08/2011 [facility], FERNANDA R 272.4 HYPERLIPIDEMIA 08/08/2011 [facility], FERNANDA R 401.1 ESSENTIAL HYPERTENSION BENIGN 08/08/2011 [facility], FERNANDA R 845.00 SPRAIN/STRAIN ANKLE 08/08/2011 [facility], FERNANDA R 250.90 DIABETES MELLITUS TYPE 2 WITH COMPLICATION 08/08/2011 [facility], FERNANDA R 272.4 HYPERLIPIDEMIA 08/08/2011 [facility], FERNANDA R 401.1 ESSENTIAL HYPERTENSION BENIGN 08/08/2011 [facility], FERNANDA R 845.00 SPRAIN/STRAIN ANKLE 08/08/2011 MADL ORE SMELTER, TATYANA L 250 .90 DIABETES MELLITUS TYPE 2 WITH COMPLICATION 08/08/2011 MADL ORE SMELTER, TATYANA L 272 .4 HYPERLIPIDEMIA 08/08/2011 MADL ORE SMELTER, TATYANA L 401 .1 ESSENTIAL HYPERTENSION BENIGN 08/08/2011 MADL ORE SMELTER, TATYANA L 845 .00 SPRAIN/STRAIN ANKLE 08/08/2011 [...] NELI K 845.00 SPRAIN/STRAIN ANKLE 08/08/2011 MADL ORE SMELTER, TATYANA L 250 .90 DIABETES MELLITUS TYPE 2 WITH COMPLICATION 08/08/2011 MADL ORE SMELTER, TATYANA L 272 .4 HYPERLIPIDEMIA 08/08/2011 MADL ORE SMELTER, TATYANA L 401 .1 ESSENTIAL HYPERTENSION BENIGN 08/08/2011 MADL ORE SMELTER, TATYANA L 845 .00 SPRAIN/STRAIN ANKLE 08/08/2011 LUBA ORE SMELTER, JOSE S 250.90 DIABETES MELLITUS TYPE 2 WITH COMPLICATION 08/08/2011 LUBA ORE SMELTER, JOSE S 272.4 HYPERLIPIDEMIA 08/08/2011 LUBA ORE SMELTER, JOSE S 401.1 ESSENTIAL HYPERTENSION BENIGN 08/08/2011 LUBA ORE SMELTER, JOSE S 845.00 SPRAIN/STRAIN ANKLE 08/08/2011 MADL ORE SMELTER, TATYANA L 250 .90 DIABETES MELLITUS TYPE 2 WITH COMPLICATION 08/08/2011 MADL ORE SMELTER, TATYANA L 272 .4 HYPERLIPIDEMIA 08/08/2011 MADL ORE SMELTER, TATYANA L 401 .1 ESSENTIAL HYPERTENSION BENIGN 08/08/2011 MADL ORE SMELTER, TATYANA L 845 .00 SPRAIN/STRAIN ANKLE 08/08/2011 MADL ORE SMELTER, TATYANA L 250 .90 DIABETES MELLITUS TYPE 2 WITH COMPLICATION 08/08/2011 MADL ORE SMELTER, TATYANA L 272 .4 HYPERLIPIDEMIA 08/08/2011 MADL ORE SMELTER, TATYANA L 401 .1 ESSENTIAL HYPERTENSION BENIGN 08/08/2011 MADL ORE SMELTER, TATYANA L 845 .00 SPRAIN/STRAIN ANKLE 08/08/2011 MADL ORE SMELTER, TATYANA L 250 .90 DIABETES MELLITUS TYPE 2 WITH COMPLICATION 08/08/2011 MADL ORE SMELTER, TATYANA L 272 .4 HYPERLIPIDEMIA 08/08/2011 MADL ORE SMELTER, TATYANA L 401 .1 ESSENTIAL HYPERTENSION BENIGN 08/08/2011 MADL ORE SMELTER, TATYANA L 845 .00 SPRAIN/STRAIN ANKLE 08/08/2011 LUBA ORE SMELTER, JOSE S 250.90 DIABETES MELLITUS TYPE 2 WITH COMPLICATION 08/08/2011 LUBA ORE SMELTER, JOSE S 272.4 HYPERLIPIDEMIA 08/08/2011 LUBA ORE SMELTER, JOSE S 401.1 ESSENTIAL HYPERTENSION BENIGN 08/08/2011 LUBA ORE SMELTER, JOSE S 845.00 SPRAIN/STRAIN ANKLE 08/08/2011 MADL ORE SMELTER, TATYANA L 250 .90 DIABETES MELLITUS TYPE 2 WITH COMPLICATION 08/08/2011 MADL ORE SMELTER, TATYANA L 272 .4 HYPERLIPIDEMIA 08/08/2011 MADL ORE SMELTER, TATYANA L 401 .1 ESSENTIAL HYPERTENSION BENIGN 08/08/2011 MADL ORE SMELTER, TATYANA L 845 .00 SPRAIN/STRAIN ANKLE 08/08/2011 [...] HYPE RLIPIDEMIA NEC/NOS 08/14/2012 Ot 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 08/14/2012 Ot 338.29 OTH ER [...] MD 723.9 DISORDERS OF CERVICAL REGION 08/15/2012 PTAY LATHAM MD 723.9 DISORDERS OF CERVICAL REGION 08/15/2012 SIMPSON DO, NELI K 723.9 DISORDERS OF CERVICAL REGION 08/15/2012 SIMPSON DO, NELI K 723.9 DISORDERS OF CERVICAL REGION 08/15/2012 MADL ORE SMELTER, TATYANA L 723 .9 DISORDERS OF CERVICAL REGION 08/15/2012 MADL ORE SMELTER, TATYANA L 723 .9 DISORDERS OF CERVICAL REGION 08/15/2012 MADL ORE SMELTER, TATYANA L 723 .9 DISORDERS OF CERVICAL REGION 08/15/2012 SIMPSON DO, NELI K 723.9 DISORDERS OF CERVICAL REGION 08/15/2012 [facility], FERNANDA R 723.9 DISORDERS OF CERVICAL REGION 08/15/2012 [facility], FERNANDA R 723.9 DISORDERS OF CERVICAL REGION 08/15/2012 MADL ORE SMELTER, TATYANA L 723 .9 DISORDERS OF CERVICAL REGION 08/15/2012 SIMPSON DO, NELI K 723.9 DISORDERS OF CERVICAL REGION 08/15/2012 SIMPSON DO, NELI K 723.9 DISORDERS OF CERVICAL REGION 08/15/2012 MADL ORE SMELTER, TATYANA L 723 .9 DISORDERS OF CERVICAL REGION 08/15/2012 JOSE VERDUZCO APRN 723.9 DISORDERS OF CERVICAL REGION 08/15/2012 MADL ORE SMELTER, TATYANA L 723 .9 DISORDERS OF CERVICAL REGION 08/15/2012 MADL ORE SMELTER, TATYANA L 723 .9 DISORDERS OF CERVICAL REGION 08/15/2012 MADL ORE SMELTER, TATYANA L 723 .9 DISORDERS OF CERVICAL REGION 08/15/2012 LUBA ORE SMELTER, JOSE S 723.9 DISORDERS OF CERVICAL REGION 08/15/2012 MADGray ORE SMELTER, TATYANA L 723 .9 DISORDERS OF CERVICAL REGION 08/15/2012 JUSTICE VARGAS MD 723.9 DISORDERS OF CERVICAL REGION 08/15/2012 JOANL ORE SMELTER, TATYANA L 723 .9 DISORDERS OF CERVICAL [...] K 786.05 shortness of breath 09/05/2012 MADL ORE SMELTER, TATYANA L 786 .05 shortness of breath 09/05/2012 MADL ORE SMELTER, TATYANA L 786 .05 shortness of breath 09/05/2012 MADL ORE SMELTER, TATYANA L 786 .05 shortness of breath 09/05/2012 SIMPSON DO, NELI K 786.05 shortness of breath 09/05/2012 [facility], FERNANDA R 786.05 shortness of breath 09/05/2012 [facility], FERNANDA R 786.05 shortness of breath 09/05/2012 MADL ORE SMELTER, TATYANA L 786 .05 shortness of breath 09/05/2012 SIMPSON DO, NELI K 786.05 shortness of breath 09/05/2012 SIMPSON DO, NELI K 786.05 shortness of breath 09/05/2012 MADL ORE SMELTER, TATYANA L 786 .05 shortness of breath 09/05/2012 LUBA ORE SMELTER, JOSE S 786.05 shortness of breath 09/05/2012 MADL ORE SMELTER, TATYANA L 786 .05 shortness of breath 09/05/2012 MADL ORE SMELTER, TATYANA L 786 .05 shortness of breath 09/05/2012 MADL ORE SMELTER, TATYANA L 786 .05 shortness of breath 09/05/2012 LUBA ORE SMELTER, JOSE S 786.05 shortness of breath 09/05/2012 MADL ORE SMELTER, TATYANA L 786 .05 shortness of breath 09/05/2012 ALICIA WALLIS, JUSTICE 786.05 shortness of breath 09/05/2012 MADL ORE SMELTER, TATYANA L 786 .05 shortness of breath [...] 10/21/2012 304.80 SA POLYSUB DEP 10/21/2012 296.32 ORESETS OR DEPRESSION RECURRENT MODERATE 10/21/2012 304.80 SA [...] K 304.80 SA POLYSUB DEP 10/21/2012 MADL ORE SMELTER, TATYANA L 296 .32 MAJOR DEPRESSION RECURRENT MODERATE 10/21/2012 MADL ORE SMELTER, TATYANA L 304 .80 SA POLYSUB DEP 10/21/2012 MADL ORE SMELTER, TATYANA L 296 .32 MAJOR DEPRESSION RECURRENT MODERATE 10/21/2012 MADL ORE SMELTER, TATYANA L 304 .80 SA POLYSUB DEP 10/21/2012 MADL ORE SMELTER, TATYANA L 296 .32 MAJOR DEPRESSION RECURRENT MODERATE 10/21/2012 MADL ORE SMELTER, TATYANA L 304 .80 SA POLYSUB DEP 10/21/2012 SIMPSON DO NELI K 296.32 MAJOR DEPRESSION RECURRENT MODERATE 10/21/2012 SIMPSON DO, NELI K 304.80 SA POLYSUB DEP 10/21/2012 [facility], FERNANDA R 296.32 MAJOR DEPRESSION RECURRENT MODERATE 10/21/2012 [facility], FERNANDA R 304.80 SA POLYSUB DEP 10/21/2012 [facility], FERNANDA R 296.32 MAJOR DEPRESSION RECURRENT MODERATE 10/21/2012 [facility], FERNANDA R 304.80 SA POLYSUB DEP 10/21/2012 MADL ORE SMELTER, TATYANA L 296 .32 MAJOR DEPRESSION RECURRENT MODERATE 10/21/2012 MADL ORE SMELTER, TATYANA L 304 .80 SA POLYSUB DEP 10/21/2012 SIMPSON DO, NELI K 296.32 MAJOR DEPRESSION RECURRENT MODERATE 10/21/2012 SIMPSON DO, NELI K 304.80 SA POLYSUB DEP 10/21/2012 SIMPSON DO, NELI K 296.32 MAJOR DEPRESSION RECURRENT MODERATE 10/21/2012 SIMPSON DO, NELI K 304.80 SA POLYSUB DEP 10/21/2012 MADL ORE SMELTER, TATYANA L 296 .32 MAJOR DEPRESSION RECURRENT MODERATE 10/21/2012 MADL ORE SMELTER, TATYANA L 304 .80 SA POLYSUB DEP 10/21/2012 LUBA ORE SMELTER, JOSE S 296.32 MAJOR DEPRESSION RECURRENT MODERATE 10/21/2012 LUBA ORE SMELTER, JOSE S 304.80 SA POLYSUB DEP 10/21/2012 MADL ORE SMELTER, TATYANA L 296 .32 MAJOR DEPRESSION RECURRENT MODERATE 10/21/2012 MADL ORE SMELTER, TATYANA L 304 .80 SA POLYSUB DEP 10/21/2012 MADL ORE SMELTER, TATYANA L 296 .32 MAJOR DEPRESSION RECURRENT MODERATE 10/21/2012 MADL ORE SMELTER, TATYANA L 304 .80 SA POLYSUB DEP 10/21/2012 MADL ORE SMELTER, TATYANA L 296 .32 MAJOR DEPRESSION RECURRENT MODERATE 10/21/2012 MADL ORE SMELTER, TATYANA L 304 .80 SA POLYSUB DEP 10/21/2012 LUBA ORE SMELTER, JOSE S 296.32 MAJOR DEPRESSION RECURRENT MODERATE 10/21/2012 LUBA ORE SMELTER, JOSE S 304.80 SA POLYSUB DEP 10/21/2012 MADL ORE SMELTER, TATYANA L 296 .32 MAJOR DEPRESSION RECURRENT MODERATE 10/21/2012 MADL ORE SMELTER, TATYANA L 304 .80 SA POLYSUB DEP 10/21/2012 ALICIA WALLIS, JUSTICE 296.32 MAJOR DEPRESSION RECURRENT MODERATE 10/21/2012 JUSTICE VARGAS MD 304.80 SA POLYSUB DEP 10/21/2012 MADL ORE SMELTER, TATYANA L 296 .32 MAJOR DEPRESSION RECURRENT MODERATE 10/21/2012 MADL ORE SMELTER, TATYANA L 304 .80 SA POLYSUB DEP [...] DO NELI K 288.60 LEUKOCYTOSIS 10/28/2012 MAD ORE SMELTER, TATYANA L 288 .60 LEUKOCYTOSIS 10/28/2012 MADL ORE SMELTER, TATYANA L 288 .60 LEUKOCYTOSIS 10/28/2012 MADL ORE SMELTER, TATYANA L 288 .60 LEUKOCYTOSIS 10/28/2012 SIMPSON DO, NELI K 288.60 LEUKOCYTOSIS 10/28/2012 [facility], FERNANDA R 288.60 LEUKOCYTOSIS 10/28/2012 [facility], FERNANDA R 288.60 LEUKOCYTOSIS 10/28/2012 MADL ORE SMELTER, TATYANA L 288 .60 LEUKOCYTOSIS 10/28/2012 SIMPSON DO, NELI K 288.60 LEUKOCYTOSIS 10/28/2012 SIMPSON DO, NELI K 288.60 LEUKOCYTOSIS 10/28/2012 MADL ORE SMELTER, TATYANA L 288 .60 LEUKOCYTOSIS 10/28/2012 LUBA ORE SMELTER, JOSE S 288.60 LEUKOCYTOSIS 10/28/2012 MADL ORE SMELTER, TATYANA L 288 .60 LEUKOCYTOSIS 10/28/2012 MADL ORE SMELTER, TATYANA L 288 .60 LEUKOCYTOSIS 10/28/2012 MADL ORE SMELTER, TATYANA L 288 .60 LEUKOCYTOSIS 10/28/2012 LUBA ORE SMELTER, JOSE S 288.60 LEUKOCYTOSIS 10/28/2012 MADL ORE SMELTER, TATYANA L 288 .60 LEUKOCYTOSIS 10/28/2012 JUSTICE VARGAS MD 288.60 LEUKOCYTOSIS 10/28/2012 MADL ORE SMELTER, TATYANA L 288 .60 LEUKOCYTOSIS 12/01/2012 PATY [...] NELI K 466.0 ACUTE BRONCHITIS 12/01/2012 MADL ORE SMELTER, TATYANA L 466 .0 ACUTE BRONCHITIS 12/01/2012 MADL ORE SMELTER, TATYANA L 466 .0 ACUTE BRONCHITIS 12/01/2012 MADL ORE SMELTER, TATYANA L 466 .0 ACUTE BRONCHITIS 12/01/2012 SIMPSON DO, NELI K 466.0 ACUTE BRONCHITIS 12/01/2012 [facility], FERNANDA R 466.0 ACUTE BRONCHITIS 12/01/2012 [facility], FERNANDA R 466.0 ACUTE BRONCHITIS 12/01/2012 MADL ORE SMELTER, TATYANA L 466 .0 ACUTE BRONCHITIS 12/01/2012 SIMPSON DO, NELI K 466.0 ACUTE BRONCHITIS 12/01/2012 SIMPSON DO, NELI K 466.0 ACUTE BRONCHITIS 12/01/2012 MADL ORE SMELTER, TATYANA L 466 .0 ACUTE BRONCHITIS 12/01/2012 [facility] ORE SMELTER, JOSE S 466.0 ACUTE BRONCHITIS 12/01/2012 MADL ORE SMELTER, TATYANA L 466 .0 ACUTE BRONCHITIS 12/01/2012 MADL ORE SMELTER, TATYANA L 466 .0 ACUTE BRONCHITIS 12/01/2012 MADL ORE SMELTER, TATYANA L 466 .0 ACUTE BRONCHITIS 12/01/2012 [facility] ORE SMELTER, JOSE S 466.0 ACUTE BRONCHITIS 12/01/2012 MADL ORE SMELTER, TATYANA L 466 .0 ACUTE BRONCHITIS 12/01/2012 ALICIA WALLIS, JUSTICE 466.0 ACUTE BRONCHITIS 12/01/2012 MADL ORE SMELTER, TATYANA L 466 .0 ACUTE BRONCHITIS 02/04/2013 [...] AND UNSPECIFIED SITES WITHOUT INFECTION 02/26/2013 MADL ORE SMELTER, TATYANA L 780 .50 UNSPECIFIED SLEEP DISTURBANCE 02/26/2013 MADL ORE SMELTER, TATYANA L 919 .4 INSECT BITE NONVENOMOUS OF OTHER MULTIPLE AND UNSPECIFIED SITES WITHOUT INFECTION 02/26/2013 MADL ORE SMELTER, TATYANA L 780 .50 UNSPECIFIED SLEEP DISTURBANCE 02/26/2013 MADL ORE SMELTER, TATYANA L 919 .4 INSECT BITE NONVENOMOUS OF OTHER MULTIPLE AND UNSPECIFIED SITES WITHOUT INFECTION 02/26/2013 MADL ORE SMELTER, TATYANA L 780 .50 UNSPECIFIED SLEEP DISTURBANCE 02/26/2013 MADL ORE SMELTER, TATYANA L 919 .4 INSECT BITE NONVENOMOUS OF OTHER MULTIPLE AND UNSPECIFIED SITES WITHOUT INFECTION 02/26/2013 SIMPSON DO, NELI K 780.50 UNSPECIFIED SLEEP DISTURBANCE 02/26/2013 SIMPSON DO, NELI K 919.4 INSECT BITE NONVENOMOUS OF OTHER MULTIPLE AND UNSPECIFIED SITES WITHOUT INFECTION 02/26/2013 [facility], FERNANDA R 780.50 UNSPECIFIED SLEEP DISTURBANCE 02/26/2013 [facility], FERNANDA R 919.4 INSECT BITE NONVENOMOUS OF OTHER MULTIPL E AND UNSPECIFIED SITES WITHOUT INFECTION 02/26/2013 [facility], FERNANDA R 780.50 UNSPECIFIED SLEEP DISTURBANCE 02/26/2013 [facility], FERNANDA R 919.4 INSECT BITE NONVENOMOUS OF OTHER MULTIPL E AND UNSPECIFIED SITES WITHOUT INFECTION 02/26/2013 MADL ORE SMELTER, TATYANA L 780 .50 UNSPECIFIED SLEEP DISTURBANCE 02/26/2013 MADL ORE SMELTER, TATYANA L 919 .4 INSECT BITE NONVENOMOUS [...] AND UNSPECIFIED SITES WITHOUT INFECTION 02/26/2013 MADL ORE SMELTER, TATYANA L 780 .50 UNSPECIFIED SLEEP DISTURBANCE 02/26/2013 MADL ORE SMELTER, TATYANA L 919 .4 INSECT BITE NONVENOMOUS OF OTHER MULTIPLE AND UNSPECIFIED SITES WITHOUT INFECTION 02/26/2013 LUBA ORE SMELTER, JOSE S 780.50 UNSPECIFIED SLEEP DISTURBANCE 02/26/2013 LUBA ORE SMELTER, JOSE S 919.4 INSECT BITE NONVENOMOUS OF OTHER MULTIPL E AND UNSPECIFIED SITES WITHOUT INFECTION 02/26/2013 MADL ORE SMELTER, TATYANA L 780 .50 UNSPECIFIED SLEEP DISTURBANCE 02/26/2013 MADL ORE SMELTER, TATYANA L 919 .4 INSECT BITE NONVENOMOUS OF OTHER MULTIPLE AND UNSPECIFIED SITES WITHOUT INFECTION 02/26/2013 MADL ORE SMELTER, TATYANA L 780 .50 UNSPECIFIED SLEEP DISTURBANCE 02/26/2013 MADL ORE SMELTER, TATYANA L 919 .4 INSECT BITE NONVENOMOUS OF OTHER MULTIPLE AND UNSPECIFIED SITES WITHOUT INFECTION 02/26/2013 MADL ORE SMELTER, TATYANA L 780 .50 UNSPECIFIED SLEEP DISTURBANCE 02/26/2013 MADL ORE SMELTER, TATYANA L 919 .4 INSECT BITE NONVENOMOUS OF OTHER MULTIPLE AND UNSPECIFIED SITES WITHOUT INFECTION 02/26/2013 LU[facility] ORE SMELTER, JOSE S 780.50 UNSPECIFIED SLEEP DISTURBANCE 02/26/2013 LUBA ORE SMELTER, JOSE S 919.4 INSECT BITE NONVENOMOUS OF OTHER MULTIPL E AND UNSPECIFIED SITES WITHOUT INFECTION 02/26/2013 MADL ORE SMELTER, TATYANA L 780 .50 UNSPECIFIED SLEEP DISTURBANCE 02/26/2013 MADL ORE SMELTER, TATYANA L 919 .4 INSECT BITE NONVENOMOUS OF OTHER MULTIPLE AND UNSPECIFIED SITES WITHOUT INFECTION 02/26/2013 JUSTICE VARGAS MD 780.50 UNSPECIFIED SLEEP DISTURBANCE 02/26/2013 JUSTICE VARGAS MD 919.4 INSECT BITE NONVENOMOUS OF OTHER MULTIPLE AND UNSPECIFIED SITES WITHOUT INFECTION 02/26/2013 MADL ORE SMELTER, TATYANA L 780 .50 UNSPECIFIED SLEEP DISTURBANCE 02/26/2013 MADL ORE SMELTER, TATYANA L 919 .4 INSECT BITE NONVENOMOUS [...] JOINT INVOLVING ANKLE AND FOOT [facility]/31/[facility]IN IN JOINT INVOLVING ANKLE AND FOOT 03/31/2013 [facility] 719.47 PAIN IN JOINT INVOLVING ANKLE AND FOOT 03/31/2013 MISTI MINER TATYANA L 719 .47 PAIN IN JOINT INVOLVING ANKLE AND FOOT 03/31/2013 TATIANA DO NELI K 719.47 PAIN IN JOINT INVOLVING ANKLE AND FOOT 03/31/2013 SIMPSON DO NELI K 719.47 PAIN IN JOINT INVOLVING ANKLE AND FOOT 03/31/2013 MADGray ORE SMELTER TATYANA L 719 .47 PAIN IN JOINT INVOLVING ANKLE AND FOOT 03/31/2013 CHAGO VERDUZCO APRNA Jessica 719.47 PAIN IN JOINT INVOLVING ANKLE AND FOOT 03/31/2013 MADGary MINER TATYANA L 719 .47 PAIN IN JOINT INVOLVING ANKLE AND FOOT 03/31/2013 JOANL ORE SMELTERMAXA L 719 .47 PAIN IN JOINT INVOLVING ANKLE AND FOOT 03/31/2013 MADL ORE SMELTER, TATYANA L 719 .47 PAIN IN JOINT INVOLVING ANKLE AND FOOT 03/31/2013 JOSE VERDUZCO APRN 719.47 PAIN IN JOINT INVOLVING ANKLE AND FOOT 03/31/2013 MISTI ORE SMELTERTATYANA Dunn L 719 .47 PAIN IN JOINT INVOLVING ANKLE AND FOOT 03/31/2013 JUSTICE VARGAS MD 719.47 PAIN IN JOINT INVOLVING ANKLE AND FOOT 03/31/2013 MADL ORE SMELTERTATYANA Dunn L 719 .47 PAIN IN JOINT [...] DO, NELI K 799.02 HYPOXEMIA 04/01/2013 MADL ORE SMELTER, TATYANA L 799 .02 HYPOXEMIA 04/01/2013 MADL ORE SMELTER, TATYANA L 799 .02 HYPOXEMIA 04/01/2013 MADL ORE SMELTER, TATYANA L 799 .02 HYPOXEMIA 04/01/2013 SIMPSON DO, NELI K 799.02 HYPOXEMIA 04/01/2013 [facility], FERNANDA R 799.02 HYPOXEMIA 04/01/2013 [facility], FERNANDA R 799.02 HYPOXEMIA 04/01/2013 MADL ORE SMELTER, TATYANA L 799 .02 HYPOXEMIA 04/01/2013 SIMPSON DO, NELI K 799.02 HYPOXEMIA 04/01/2013 SIMPSON DO, NELI K 799.02 HYPOXEMIA 04/01/2013 MADL ORE SMELTER, TATYANA L 799 .02 HYPOXEMIA 04/01/2013 JOSE VERDUZCO APRN S 799.02 HYPOXEMIA 04/01/2013 MADL ORE SMELTER, TATYANA L 799 .02 HYPOXEMIA 04/01/2013 MADL ORE SMELTER, TATYANA L 799 .02 HYPOXEMIA 04/01/2013 MADL ORE SMELTER, TATYANA L 799 .02 HYPOXEMIA 04/01/2013 LUBA ORE SMELTER, JOSE S 799.02 HYPOXEMIA 04/01/2013 MADL ORE SMELTER, TATYANA L 799 .02 HYPOXEMIA 04/01/2013 JUSTICE VARGAS MD 799.02 HYPOXEMIA 04/01/2013 MADL ORE SMELTER, TATYANA L 799 .02 HYPOXEMIA 04/02/2013 NOA [...] LATHAM MD Ot 292.81 DRUG-INDUCED DELIRIUM 06/04/2013 PAYT LATHAM MD Ot 304.90 DRUG DEPEND NOS-UNSPEC 06/04/2013 PATY LATHAM MD Ot 305.1 TOBACCO USE DISORDER 06/04/2013 PATY LATHAM MD Ot 338.29 OTHER CHRONIC PAIN 06/04/2013 PATY LATHAM MD Ot 401.9 HYPERTENSION NOS 06/04/2013 PATY LATHAM MD Ot 414.01 CORONARY ATHEROSCLEROSIS OF [place] CORON 06/04/2013 PATY ALTHAM MD Ot 425.4 PRIM CARDIOMYOPATHY NEC 06/04/2013 [...] NELI K 536.8 GASTROPATHY HYPERSECRETORY 06/09/2013 MADL ORE SMELTER, TATYANA L 333 .94 RESTLESS LEGS SYNDROME 06/09/2013 MADL ORE SMELTER, TATYANA L 536 .8 GASTROPATHY HYPERSECRETORY 06/09/2013 MADL ORE SMELTER, TATYANA L 333 .94 RESTLESS LEGS SYNDROME 06/09/2013 MADL ORE SMELTER, TATYANA L 536 .8 GASTROPATHY HYPERSECRETORY 06/09/2013 MADL ORE SMELTER, TATYANA L 333 .94 RESTLESS LEGS SYNDROME 06/09/2013 MADL ORE SMELTER, TATYANA L 536 .8 GASTROPATHY HYPERSECRETORY 06/09/2013 SIMPSON DO, NELI K 333.94 RESTLESS LEGS SYNDROME 06/09/2013 SIMPSON DO, NELI K 536.8 GASTROPATHY HYPERSECRETORY 06/09/2013 [facility], FERNANDA R 333.94 RESTLESS LEGS SYNDROME 06/09/2013 [facility], FERNANDA R 536.8 GASTROPATHY HYPERSECRETORY 06/09/2013 [facility], FERNANDA R 333.94 RESTLESS LEGS SYNDROME 06/09/2013 [facility], FERNANDA R 536.8 GASTROPATHY HYPERSECRETORY 06/09/2013 MADL ORE SMELTER, TATYANA L 333 .94 RESTLESS LEGS SYNDROME 06/09/2013 MADL ORE SMELTER, TATYANA L 536 .8 GASTROPATHY HYPERSECRETORY 06/09/2013 SIMPSON DO, NELI K 333.94 RESTLESS LEGS SYNDROME 06/09/2013 SIMPSON DO, NELI K 536.8 GASTROPATHY HYPERSECRETORY 06/09/2013 SIMPSON DO, NELI K 333.94 RESTLESS LEGS SYNDROME 06/09/2013 SIMPSON DO, NELI K 536.8 GASTROPATHY HYPERSECRETORY 06/09/2013 MAD[facility] ORE SMELTER, TATYANA L 333 .94 RESTLESS LEGS SYNDROME 06/09/2013 MADL ORE SMELTER, TATYANA L 536 .8 GASTROPATHY HYPERSECRETORY 06/09/2013 [facility] SMELTER, JOSE S 333.94 RESTLESS LEGS SYNDROME 06/09/2013 [facility] SMELTER, JOSE S 536.8 GASTROPATHY HYPERSECRETORY 06/09/2013 MADL ORE SMELTER, TATYANA L 333 .94 RESTLESS LEGS SYNDROME 06/09/2013 MADL ORE SMELTER, TATYANA L 536 .8 GASTROPATHY HYPERSECRETORY 06/09/2013 MADL ORE SMELTER, TATYANA L 333 .94 RESTLESS LEGS SYNDROME 06/09/2013 MADL ORE SMELTER, TATYANA L 536 .8 GASTROPATHY HYPERSECRETORY 06/09/2013 MADL ORE SMELTER, TATYANA L 333 .94 RESTLESS LEGS SYNDROME 06/09/2013 MADL ORE SMELTER, TATYANA L 536 .8 GASTROPATHY HYPERSECRETORY 06/09/2013 [facility] SMELTER, JOSE S 333.94 RESTLESS LEGS SYNDROME 06/09/2013 [facility] SMELTER, JOSE S 536.8 GASTROPATHY HYPERSECRETORY 06/09/2013 MAD[facility] ORE SMELTER, TATYANA L 333 .94 RESTLESS LEGS SYNDROME 06/09/2013 MAD[facility] ORE SMELTER, TATYANA L 536 .8 GASTROPATHY HYPERSECRETORY 06/09/2013 JUSTICE VARGAS MD 333.94 RESTLESS LEGS SYNDROME 06/09/2013 JUSTICE VARGAS MD 536.8 GASTROPATHY HYPERSECRETORY 06/09/2013 MADL ORE SMELTER, TATYANA L 333 .94 RESTLESS LEGS SYNDROME 06/09/2013 MADL ORE SMELTER, TATYANA L 536 .8 GASTROPATHY HYPERSECRETORY 10/05/2013 [...] NELI K Ot 414.01 CORONARY ATHEROSCLEROSIS OF [place] CORON 10/05/2013 SIMPSON DO NELI K Ot [...] K 786.50 UNSPECIFIED CHEST PAIN 10/23/2013 MADL ORE SMELTER, TATYANA L 516 .9 UNSPECIFIED ALVEOLAR AND PARIETOALVEOLAR PNEUMONOPATHY 10/23/2013 MADL ORE SMELTER, TATYANA L 786 .50 UNSPECIFIED CHEST PAIN 10/23/2013 MAD[facility] ORE SMELTER, TATYANA L 516 .9 UNSPECIFIED ALVEOLAR AND PARIETOALVEOLAR PNEUMONOPATHY 10/23/2013 MADL ORE SMELTER, TATYANA L 786 .50 UNSPECIFIED CHEST PAIN 10/23/2013 MADL ORE SMELTER, TATYANA L 516 .9 UNSPECIFIED ALVEOLAR AND PARIETOALVEOLAR PNEUMONOPATHY 10/23/2013 MADL ORE SMELTER, TATYANA L 786 .50 UNSPECIFIED CHEST PAIN 10/23/2013 SIMPSON DO, NELI K 516.9 UNSPECIFIED ALVEOLAR AND PARIETOALVEOLAR PNEUMONOPATHY 10/23/2013 SIMPSON DO, NELI K 786.50 UNSPECIFIED CHEST PAIN 10/23/2013 [facility], FERNANDA R 516.9 UNSPECIFIED ALVEOLAR AND PARIETOALVEOLAR PNEUMONOPATHY 10/23/2013 [facility], FERNANDA R 786.50 UNSPECIFIED CHEST PAIN 10/23/2013 [facility], FERNANDA R 516.9 UNSPECIFIED ALVEOLAR AND PARIETOALVEOLAR PNEUMONOPATHY 10/23/2013 [facility], FERNANDA R 786.50 UNSPECIFIED CHEST PAIN 10/23/2013 MADL ORE SMELTER, TATYANA L 516 .9 UNSPECIFIED ALVEOLAR AND PARIETOALVEOLAR PNEUMONOPATHY 10/23/2013 MADL ORE SMELTER, TATYANA L 786 .50 UNSPECIFIED CHEST PAIN 10/23/2013 SIMPSON DO, NELI K 516.9 UNSPECIFIED ALVEOLAR AND PARIETOALVEOLAR PNEUMONOPATHY 10/23/2013 SIMPSON DO, NELI K 786.50 UNSPECIFIED CHEST PAIN 10/23/2013 SIMPSON DO, NELI K 516.9 UNSPECIFIED ALVEOLAR AND PARIETOALVEOLAR PNEUMONOPATHY 10/23/2013 SIMPSON DO, NELI K 786.50 UNSPECIFIED CHEST PAIN 10/23/2013 MAD[facility] ORE SMELTER, TATYANA L 516 .9 UNSPECIFIED ALVEOLAR AND PARIETOALVEOLAR PNEUMONOPATHY 10/23/2013 MADL ORE SMELTER, TATYANA L 786 .50 UNSPECIFIED CHEST PAIN 10/23/2013 [facility] SMELTER, JOSE S 516.9 UNSPECIFIED ALVEOLAR AND PARIETOALVEOLAR PNEUMONOPATHY 10/23/2013 LU[facility] SMELTER, JOSE S 786.50 UNSPECIFIED CHEST PAIN 10/23/2013 MADL ORE SMELTER, TATYANA L 516 .9 UNSPECIFIED ALVEOLAR AND PARIETOALVEOLAR PNEUMONOPATHY 10/23/2013 MADL ORE SMELTER, TATYANA L 786 .50 UNSPECIFIED CHEST PAIN 10/23/2013 MADL ORE SMELTER, TATYANA L 516 .9 UNSPECIFIED ALVEOLAR AND PARIETOALVEOLAR PNEUMONOPATHY 10/23/2013 MADL ORE SMELTER, TATYANA L 786 .50 UNSPECIFIED CHEST PAIN 10/23/2013 MADL ORE SMELTER, TATYANA L 516 .9 UNSPECIFIED ALVEOLAR AND PARIETOALVEOLAR PNEUMONOPATHY 10/23/2013 MADL ORE SMELTER, TATYANA L 786 .50 UNSPECIFIED CHEST PAIN 10/23/2013 LUBA MINER JOSE S 516.9 UNSPECIFIED ALVEOLAR AND PARIETOALVEOLAR PNEUMONOPATHY 10/23/2013 LUBA ORE SMELTER, JOSE S 786.50 UNSPECIFIED CHEST PAIN 10/23/2013 MADL ORE SMELTER, TATYANA L 516 .9 UNSPECIFIED ALVEOLAR AND PARIETOALVEOLAR PNEUMONOPATHY 10/23/2013 MISTI ORE SMELTER, TATYANA L 786 .50 UNSPECIFIED CHEST PAIN [...] 274 .00 GOUTY ARTHROPATHY UNSPECIFIED 12/17/2013 MADL ORE SMELTER, TATYANA L 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 12/17/2013 MADL ORE SMELTER, TATYANA L 274 .00 GOUTY ARTHROPATHY UNSPECIFIED 12/17/2013 MADL ORE SMELTER, TATYANA L 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 12/17/2013 MADL ORE SMELTER, TATYANA L 274 .00 GOUTY ARTHROPATHY UNSPECIFIED 12/17/2013 MADL ORE SMELTER, TATYANA L 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 12/17/2013 SIMPSON DO, NELI K 274.00 GOUTY ARTHROPATHY UNSPECIFIED 12/17/2013 SIMPSON DO, NELI K 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 12/17/2013 [facility], FERNANDA R 274.00 GOUTY ARTHROPATHY UNSPECIFIED 12/17/2013 [facility], FERNANDA R 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 12/17/2013 [facility], FERNANDA R 274.00 GOUTY ARTHROPATHY UNSPECIFIED 12/17/2013 [facility], FERNANDA R 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 12/17/2013 MAD ORE SMELTER, TATYANA L 274 .00 GOUTY ARTHROPATHY UNSPECIFIED 12/17/2013 MADL ORE SMELTER, TATYANA L 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 12/17/2013 SIMPSON DO, NELI K 274.00 GOUTY ARTHROPATHY UNSPECIFIED 12/17/2013 SIMPSON DO, NELI K 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 12/17/2013 SIMPSON DO, NELI K 274.00 GOUTY ARTHROPATHY UNSPECIFIED 12/17/2013 SIMPSON DO, NELI K 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 12/17/2013 MADL ORE SMELTER, TATYANA L 274 .00 GOUTY ARTHROPATHY UNSPECIFIED 12/17/2013 MADL ORE SMELTER, TATYANA L 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 12/17/2013 LUBA ORE SMELTER, JOSE S 274.00 GOUTY ARTHROPATHY UNSPECIFIED 12/17/2013 LUBA ORE SMELTER, JOSE S 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 12/17/2013 MADL ORE SMELTER, TATYANA L 274 .00 GOUTY ARTHROPATHY UNSPECIFIED 12/17/2013 MADL ORE SMELTER, TATYANA L 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 12/17/2013 MADL ORE SMELTER, TATYANA L 274 .00 GOUTY ARTHROPATHY UNSPECIFIED 12/17/2013 MADL ORE SMELTER, TATYANA L 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 12/17/2013 MADL ORE SMELTER, TATYANA L 274 .00 GOUTY ARTHROPATHY UNSPECIFIED 12/17/2013 MADL ORE SMELTER, TATYANA L 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 12/17/2013 LUBA ORE SMELTER, JOSE S 274.00 GOUTY ARTHROPATHY UNSPECIFIED 12/17/2013 LUBA ORE SMELTER, JOSE S 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 12/17/2013 MADL ORE SMELTER, TATYANA L 274 .00 GOUTY ARTHROPATHY UNSPECIFIED 12/17/2013 MADL ORE SMELTER, TATYANA L 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 12/17/2013 ALICIA WALLIS, BASHAR 274.00 GOUTY ARTHROPATHY UNSPECIFIED 12/17/2013 ALICIA WALLIS BASHAR 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 12/17/2013 MADL ORE SMELTER, TATYANA L 274 .00 GOUTY ARTHROPATHY UNSPECIFIED 12/17/2013 MADL ORE SMELTER, TATYANA L 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 12/26/2013 NELI SIMPSON DO K 110.1 DERMATOPHYTOSIS OF NAIL 12/26/2013 PETER SIMPSON DOA K 681.10 UNSPECIFIED CELLULITIS AND ABSCESS OF TOE 12/26/2013 MADL ORE SMELTER, TATYANA L 110 .1 DERMATOPHYTOSIS OF NAIL 12/26/2013 MADL ORE SMELTER, TATYANA L 681 .10 UNSPECIFIED CELLULITIS AND ABSCESS OF TOE 12/26/2013 MADL ORE SMELTER, TATYANA L 110 .1 DERMATOPHYTOSIS OF NAIL 12/26/2013 MADL ORE SMELTER, TATYANA L 681 .10 UNSPECIFIED CELLULITIS AND ABSCESS OF TOE 12/26/2013 MADL ORE SMELTER, TATYANA L 110 .1 DERMATOPHYTOSIS OF NAIL 12/26/2013 MADL ORE SMELTER, TATYANA L 681 .10 UNSPECIFIED CELLULITIS AND ABSCESS OF TOE 12/26/2013 TATIANA LAGUNA NELI K 110.1 DERMATOPHYTOSIS OF NAIL 12/26/2013 PETER SIMPSON DOA K 681.10 UNSPECIFIED CELLULITIS AND ABSCESS OF TOE 12/26/2013 [facility], FERNANDA R 110.1 DERMATOPHYTOSIS OF NAIL 12/26/2013 [facility], FERNANDA R 681.10 UNSPECIFIED CELLULITIS AND ABSCESS OF TOE 12/26/2013 [facility], FERNANDA R 110.1 DERMATOPHYTOSIS OF NAIL 12/26/2013 [facility], FERNANDA R 681.10 UNSPECIFIED CELLULITIS AND ABSCESS OF TOE 12/26/2013 MADL ORE SMELTER, TATYANA L 110 .1 DERMATOPHYTOSIS OF NAIL 12/26/2013 MADL ORE SMELTER, TATYANA L 681 .10 UNSPECIFIED CELLULITIS AND ABSCESS OF TOE 12/26/2013 SIMPSON DO, NELI K 110.1 DERMATOPHYTOSIS OF NAIL 12/26/2013 SIMPSON DO, NELI K 681.10 UNSPECIFIED CELLULITIS AND ABSCESS OF TOE 12/26/2013 SIMPSON DO, NELI K 110.1 DERMATOPHYTOSIS OF NAIL 12/26/2013 SIMPSON DO NELI K 681.10 UNSPECIFIED CELLULITIS AND ABSCESS OF TOE 12/26/2013 MADL ORE SMELTER, TATYANA L 110 .1 DERMATOPHYTOSIS OF NAIL 12/26/2013 MADL ORE SMELTER, TATYANA L 681 .10 UNSPECIFIED CELLULITIS AND ABSCESS OF TOE 12/26/2013 LUBA MINER, JOSE S 110.1 DERMATOPHYTOSIS OF NAIL 12/26/2013 LUBA ORE SMELTER, JOSE S 681.10 UNSPECIFIED CELLULITIS AND ABSCESS OF TOE 12/26/2013 MADL ORE SMELTER, TATYANA L 110 .1 DERMATOPHYTOSIS OF NAIL 12/26/2013 MADL ORE SMELTER, TATYANA L 681 .10 UNSPECIFIED CELLULITIS AND ABSCESS OF TOE 12/26/2013 MADL ORE SMELTER, TATYANA L 110 .1 DERMATOPHYTOSIS OF NAIL 12/26/2013 MADL ORE SMELTER, TATYANA L 681 .10 UNSPECIFIED CELLULITIS AND ABSCESS OF TOE 12/26/2013 MADL ORE SMELTER, TATYANA L 110 .1 DERMATOPHYTOSIS OF NAIL 12/26/2013 MADL ORE SMELTER, TATYANA L 681 .10 UNSPECIFIED CELLULITIS AND ABSCESS OF TOE 12/26/2013 LUBA MINER JOSE S 110.1 DERMATOPHYTOSIS OF NAIL 12/26/2013 LUBA MINER JOSE S 681.10 UNSPECIFIED CELLULITIS AND ABSCESS OF TOE 12/26/2013 JOANL ORE SMELTER, TATYANA L 110 .1 DERMATOPHYTOSIS OF NAIL 12/26/2013 MADL ORE SMELTER, TATYANA L 681 .10 UNSPECIFIED CELLULITIS AND ABSCESS OF TOE 12/26/2013 JUSTICE VARGAS MD 110.1 DERMATOPHYTOSIS OF NAIL 12/26/2013 JUSTICE VARGAS MD 681.10 UNSPECIFIED CELLULITIS AND ABSCESS OF TOE 12/26/2013 MADL ORE SMELTER, TATYANA L 110 .1 DERMATOPHYTOSIS OF NAIL 12/26/2013 MADL ORE SMELTER, TATYANA L 681 .10 UNSPECIFIED CELLULITIS AND ABSCESS OF TOE 01/20/2014 BRENDON PLUNKETT DO Ot 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 02/01/2014 MISTI MINER, TATYANA L 250 .80 DIABETES WITH OTHER SPECIFIED MANIFESTATIONS TYPE II OR UNSPECIFIED TYPE NOT STATED UNCONTROLLED 02/01/2014 MISTI MINER, TATYANA L 250 .80 DIABETES WITH OTHER SPECIFIED MANIFESTATIONS TYPE II OR UNSPECIFIED TYPE NOT STATED UNCONTROLLED 02/01/2014 MISTI ORE SMELTER, TATYANA L 250 .80 DIABETES WITH OTHER SPECIFIED MANIFESTATIONS TYPE II OR UNSPECIFIED TYPE NOT STATED UNCONTROLLED 02/01/2014 NELI SIMPSON DO 250.80 DIABETES WITH OTHER SPECIFIED MANIFESTATIONS TYPE II OR UNSPECIFIED TYPE NOT STATED UNCONTROLLED 02/01[facility] DIABETES WITH OTHER SPECIFIED MANIFESTAT IONS TYPE II OR UNSPECIFIED TYPE NOT STATED UNCONTROLLED 02/01/2014 [facility], FERNANDA R 250.80 DIABETES WITH OTHER [...] UNSPECIFIED TYPE NOT STATED UNCONTROLLED 02/01/2014 LUBA ORE SMELTERCHAGO DunnA S 250.80 DIABETES WITH OTHER SPECIFIED MANIFESTAT IONS TYPE II OR UNSPECIFIED TYPE NOT STATED UNCONTROLLED 02/01/2014 MADL ORE SMELTER, TATYANA L 250 .80 DIABETES WITH OTHER SPECIFIED MANIFESTATIONS TYPE II OR UNSPECIFIED TYPE NOT STATED UNCONTROLLED 02/01/2014 MADL ORE SMELTER, TATYANA L 250 .80 DIABETES WITH OTHER SPECIFIED MANIFESTATIONS TYPE II OR UNSPECIFIED TYPE NOT STATED UNCONTROLLED 02/01/2014 MADL ORE SMELTER, TATYANA L 250 .80 DIABETES WITH OTHER SPECIFIED MANIFESTATIONS TYPE II OR UNSPECIFIED TYPE NOT STATED UNCONTROLLED 02/01/2014 LUBA ORE SMELTERABBEY DunnNDA S 250.80 DIABETES WITH OTHER SPECIFIED MANIFESTAT IONS TYPE II OR UNSPECIFIED TYPE NOT STATED UNCONTROLLED 02/01/2014 MADL ORE SMELTER, TATYANA L 250 .80 DIABETES WITH OTHER SPECIFIED MANIFESTATIONS TYPE II OR UNSPECIFIED TYPE NOT STATED UNCONTROLLED 02/01/2014 JUSTICE VARGAS MD 250.80 DIABETES WITH OTHER SPECIFIED MANIFESTATIONS TYPE II OR UNSPECIFIED TYPE NOT STATED UNCONTROLLED 02/01/2014 MADL ORE SMELTER, TATYANA L 250 .80 DIABETES WITH OTHER SPECIFIED MANIFESTATIONS TYPE II OR UNSPECIFIED TYPE NOT STATED UNCONTROLLED 02/25/2014 MADTATYANA Castellano L MEDICAID BILLING SPECIALIST Ot 250.80 DIAB W OTH SPEC MANIFEST, TYPE II OR UNS 02/25/2014 MADMAX CastellanoA L MEDICAID BILLING SPECIALIST Ot 707.10 ULCER OF LOWER LIMB NOS 03/05/2014 NELI SIMPSON DO 356.9 NEUROPATHY 03/05/2014 NELI SIMPSON DO 707.15 ULCER-FOOT/TOES 03/05/2014 [facility], FERNANDA R 356.9 NEUROPATHY 03/05/2014 [facility], FERNANDA R 707.15 ULCER-FOOT/TOES 03/05/2014 [facility], FERNANDA R 356.9 NEUROPATHY 03/05/2014 [facility], FERNANDA R 707.15 ULCER-FOOT/TOES 03/05/2014 TATYANA CHAPPELL APRN 356 .9 NEUROPATHY 03/05/2014 MISTI ORE SMELTERTATYANA Dunn L 707 .15 ULCER-FOOT/TOES 03/05/2014 SIMPSON DO, NELI K 356.9 NEUROPATHY 03/05/2014 SIMPSON DO, NELI K 707.15 ULCER-FOOT/TOES 03/05/2014 SIMPSON DO, NELI K 356.9 NEUROPATHY 03/05/2014 SIMPSON DO, NELI K 707.15 ULCER-FOOT/TOES 03/05/2014 MADL ORE SMELTER, TATYANA L 356 .9 NEUROPATHY 03/05/2014 MADL ORE SMELTER, TATYANA L 707 .15 ULCER-FOOT/TOES 03/05/2014 LUBA ORE SMELTER, JOSE S 356.9 NEUROPATHY 03/05/2014 LUBA ORE SMELTER, JOSE S 707.15 ULCER-FOOT/TOES 03/05/2014 MADL ORE SMELTER, TATYANA L 356 .9 NEUROPATHY 03/05/2014 MADL ORE SMELTER, TATYANA L 707 .15 ULCER-FOOT/TOES 03/05/2014 MADL ORE SMELTER, TATYANA L 356 .9 NEUROPATHY 03/05/2014 MADL ORE SMELTER, TATYANA L 707 .15 ULCER-FOOT/TOES 03/05/2014 MADL ORE SMELTER, TATYANA L 356 .9 NEUROPATHY 03/05/2014 MADL ORE SMELTER, TATYANA L 707 .15 ULCER-FOOT/TOES 03/05/2014 LUBA ORE SMELTER, JOSE S 356.9 NEUROPATHY 03/05/2014 LUBA ORE SMELTER, JOSE S 707.15 ULCER-FOOT/TOES 03/05/2014 MADL ORE SMELTER, TATYANA L 356 .9 NEUROPATHY 03/05/2014 MADL ORE SMELTER, TATYANA L 707 .15 ULCER-FOOT/TOES 03/05/2014 JUSTICE VARGAS MD 356.9 NEUROPATHY 03/05/2014 JUSTICE VARGAS MD 707.15 ULCER-FOOT/TOES 03/05/2014 MADL ORE SMELTER, TATYANA L 356 .9 NEUROPATHY 03/05/2014 MADL ORE SMELTER, TATYANA L 707 .15 ULCER-FOOT/TOES 03/12[facility] DYSTHYMIC DISORDER 03/12/2014 [facility] MO DYSTHYMIC DISORDER 03/12/2014 MADL ORE SMELTER, TATYANA L 300 .4 MO DYSTHYMIC DISORDER 03/12/2014 SIMPSON DO, NELI K 300.4 MO DYSTHYMIC DISORDER 03/12/2014 SIMPSON DO, NELI K 300.4 MO DYSTHYMIC DISORDER 03/12/2014 MADL ORE SMELTER, TATYANA L 300 .4 MO DYSTHYMIC DISORDER 03/12/2014 LUBA ORE SMELTER, JOSE S 300.4 MO DYSTHYMIC DISORDER 03/12/2014 MADL ORE SMELTER, TATYANA L 300 .4 MO DYSTHYMIC DISORDER 03/12/2014 MADL ORE SMELTER, TATYANA L 300 .4 MO DYSTHYMIC DISORDER 03/12/2014 MADL ORE SMELTER, TATYANA L 300 .4 MO DYSTHYMIC DISORDER 03/12/2014 LUBA ORE SMELTER, JOSE S 300.4 MO DYSTHYMIC DISORDER 03/12/2014 MADL ORE SMELTER, TATYANA L 300 .4 MO DYSTHYMIC DISORDER 03/12/2014 JUSTICE VARGAS MD 300.4 MO DYSTHYMIC DISORDER 03/12/2014 MADL ORE SMELTER, TATYANA L 300 .4 MO DYSTHYMIC DISORDER 03/12/2014 RODRI LAGUNA JULIET K Ot 250.00 DIAB YAHAIRA WO COMPL, TYPE II OR UNSPEC TY 03/12/2014 RODRI JULIET LAGUNA Ot 298.9 PSYCHOSIS NOS 03/12/2014 RODRI DO JULIET K Ot V58.67 LONG-TERM (CURRENT) USE OF INSULIN 03/12/2014 RODRI DO JULIET K Ot V58.69 OTH MED,LT,CURRENT USE 04/09/2014 JOANGray ORE SMELTER, TATYANA L 300 .00 ANXIETY UNSPEC 04/09/2014 SIMPSON DO NELI K 300.00 ANXIETY UNSPEC 04/09/2014 SIMPSON DO NELI K 300.00 ANXIETY UNSPEC 04/09/2014 MADL ORE SMELTER, TATYANA L 300 .00 ANXIETY UNSPEC 04/09/2014 CHAGO VERDUZCO APRNA S 300.00 ANXIETY UNSPEC 04/09/2014 MADL ORE SMELTER, TATYANA L 300 .00 ANXIETY UNSPEC 04/09/2014 MADL ORE SMELTER, TATYANA L 300 .00 ANXIETY UNSPEC 04/09/2014 MADL ORE SMELTER, TATYANA L 300 .00 ANXIETY UNSPEC 04/09/2014 JOSE VERDUZCO APRN S 300.00 ANXIETY UNSPEC 04/09/2014 MADL ORE SMELTER, TATYANA L 300 .00 ANXIETY UNSPEC 04/09/2014 JUSTICE VARGAS MD 300.00 ANXIETY UNSPEC 04/09/2014 MADL ORE SMELTER, TATYANA L 300 .00 ANXIETY UNSPEC 04/11/2014 [...] 607.84 IMPOTENCE OF ORGANIC ORIGIN 05/12/2014 MADL ORE SMELTERRAUDEL DunnNYA L 303 .90 ALCOHOLISM 05/12/2014 MADL ORE SMELTER, TATYANA L 304 .90 UNSPECIFIED DRUG DEPENDENCE UNSPECIFIED USE 05/12/2014 MADL ORE SMELTERRAUDEL DunnNYA L 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 05/12/2014 JOSE VERDUZCO APRN S 303.90 ALCOHOLISM 05/12/2014 LUBA ORE SMELTER, JOSE S 304.90 UNSPECIFIED DRUG DEPENDENCE UNSPECIFIED USE 05/12/2014 LUBA MINER JOSE S 607.84 IMPOTENCE OF ORGANIC ORIGIN 05/12/2014 MADL ORE SMELTER, TATYANA L 303 .90 ALCOHOLISM 05/12/2014 MADL ORE SMELTER, TATYANA L 304 .90 UNSPECIFIED DRUG DEPENDENCE UNSPECIFIED USE 05/12/2014 MADL ORE SMELTER, TATYANA L 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 05/12/2014 MADL ORE SMELTER, TATYANA L 303 .90 ALCOHOLISM 05/12/2014 MADL ORE SMELTER, TATYANA L 304 .90 UNSPECIFIED DRUG DEPENDENCE UNSPECIFIED USE 05/12/2014 MADL ORE SMELTER, TATYANA L 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 05/12/2014 MADL ORE SMELTER, TATYANA L 303 .90 ALCOHOLISM 05/12/2014 MADL ORE SMELTER, TATYANA L 304 .90 UNSPECIFIED DRUG DEPENDENCE UNSPECIFIED USE 05/12/2014 MADL ORE SMELTER, TATYANA L 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 05/12/2014 LUBA MINER, JOSE S 303.90 ALCOHOLISM 05/12/2014 LUBA ORE SMELTER, JOSE S 304.90 UNSPECIFIED DRUG DEPENDENCE UNSPECIFIED USE 05/12/2014 LUBA ORE SMELTER, JOSE S 607.84 IMPOTENCE OF ORGANIC ORIGIN 05/12/2014 MADL ORE SMELTER, TATYANA L 303 .90 ALCOHOLISM 05/12/2014 MADL ORE SMELTER, TATYANA L 304 .90 UNSPECIFIED DRUG DEPENDENCE UNSPECIFIED USE 05/12/2014 MADL ORE SMELTER, TATYANA L 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 05/12/2014 ALICIA WALLIS, JUSTICE 303.90 ALCOHOLISM 05/12/2014 ALICIA WALLIS, JUSTICE 304.90 UNSPECIFIED DRUG DEPENDENCE UNSPECIFIED USE 05/12/2014 ALICIA WALLIS, JUSTICE 607.84 IMPOTENCE OF ORGANIC ORIGIN 05/12/2014 MADL ORE SMELTER, TATYANA L 303 .90 ALCOHOLISM 05/12/2014 MADL ORE SMELTER, TATYANA L 304 .90 UNSPECIFIED DRUG DEPENDENCE UNSPECIFIED USE 05/12/2014 MADL ORE SMELTER, TATYANA L 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 06/22/2014 LUBA ORE SMELTER, JOSE S 276.51 DEHYDRATION 06/22/2014 LUBA ORE SMELTER, JOSE S 787.91 DIARRHEA 06/22/2014 MADL ORE SMELTER, TATYANA L 276 .51 DEHYDRATION 06/22/2014 MADL ORE SMELTER, TATYANA L 787 .91 DIARRHEA 06/22/2014 MADL ORE SMELTER, TATYANA L 276 .51 DEHYDRATION 06/22/2014 MADL ORE SMELTER, TATYANA L 787 .91 DIARRHEA 06/22/2014 MADL ORE SMELTER, TATYANA L 276 .51 DEHYDRATION 06/22/2014 MADL ORE SMELTER, TATYANA L 787 .91 DIARRHEA 06/22/2014 LUBA ORE SMELTER, JOSE S 276.51 DEHYDRATION 06/22/2014 LUBA ORE SMELTER, JOSE S 787.91 DIARRHEA 06/22/2014 MADL ORE SMELTER, TATYANA L 276 .51 DEHYDRATION 06/22/2014 MADL ORE SMELTER, TATYANA L 787 .91 DIARRHEA 06/22/2014 ALICIA WALLIS, BASCHARLEY 276.51 DEHYDRATION 06/22/2014 JUSTICE VARGAS MD 787.91 DIARRHEA 06/22/2014 MADL ORE SMELTER, TATYANA L 276 .51 DEHYDRATION 06/22/2014 MADL ORE SMELTER, TATYANA L 787 .91 DIARRHEA 06/29/2014 MADL ORE SMELTER, TATYANA L 787 .99 OTHER SYMPTOMS INVOLVING DIGESTIVE SYSTEM 06/29/2014 MADL ORE SMELTER, TATYANA L 787 .99 OTHER SYMPTOMS INVOLVING DIGESTIVE SYSTEM 06/29/2014 MADL ORE SMELTER, TATYANA L 787 .99 OTHER SYMPTOMS INVOLVING DIGESTIVE SYSTEM 06/29/2014 LUBA ORE SMELTER, JOSE S 787.99 OTHER SYMPTOMS INVOLVING DIGESTIVE SYSTEM 06/29/2014 MADL ORE SMELTER, TATYANA L 787 .99 OTHER SYMPTOMS INVOLVING DIGESTIVE SYSTEM 06/29/2014 ALICIA WALLIS, BASHAR 787.99 OTHER SYMPTOMS INVOLVING DIGESTIVE SYSTEM 06/29/2014 MADL ORE SMELTER, TATYANA L 787 .99 OTHER SYMPTOMS INVOLVING DIGESTIVE SYSTEM 07/14/2014 MADL ORE SMELTER, TATYANA L 302 .72 PSYCHOSEXUAL DYSFUNCTION WITH INHIBITED SEXUAL EXCITEMENT 07/14/2014 MADL ORE SMELTERNATHALIATATYANA L V04 .81 FLU SHOT 07/14/2014 LUBA ORE SMELTER, JOSE S 302.72 PSYCHOSEXUAL DYSFUNCTION WITH INHIBITED SEXUAL EXCITEM ENT 07/14/2014 LUBA ORE SMELTER, JSOE S V04.81 FLU SHOT 07/14/2014 MADL ORE SMELTERRAUDELTATYANA L 302 .72 PSYCHOSEXUAL DYSFUNCTION WITH INHIBITED SEXUAL EXCITEMENT 07/14/2014 MADL ORE SMELTER, TATYANA L V04 .81 FLU SHOT 07/14/2014 JUSTICE VARGAS MD 302.72 PSYCHOSEXUAL DYSFUNCTION WITH INHIBITED SEXUAL EXCITEMENT 07/14/2014 JUSTICE VARGAS MD V04.81 FLU SHOT 07/14/2014 MADL ORE SMELTER, TATYANA L 302 .72 PSYCHOSEXUAL DYSFUNCTION WITH INHIBITED SEXUAL EXCITEMENT 07/14/2014 MADL ORE SMELTER, TATYANA L V04 .81 FLU SHOT 10/18/2014 MADL ORE SMELTER, TATYANA L 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 10/18/2014 MISTI ORE SMELTER, TATYANA L 414 .00 CORONARY ATHEROSCLEROSIS OF UNSPECIFIED TYPE OF VESSEL [place] OR GRAFT 10/18/2014 JUSTICE VARGAS MD 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 10/18/2014 JUSTICE VARGAS MD 414.00 CORONARY ATHEROSCLEROSIS OF UNSPECIFIED TYPE OF VESSEL [place] OR GRAFT 10/18/2014 JOANL ORE SMELTER, TATYANA L 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 10/18/2014 JOANL ORE SMELTER, TATYANA L 414 .00 CORONARY ATHEROSCLEROSIS OF UNSPECIFIED TYPE OF VESSEL [place] OR GRAFT 12/02/2014 JUSTICE VARGAS MD 782.2 LOCALIZED SUPERFICIAL SWELLING MASS OR LUMP 12/02/2014 MAX CHAPPELL APRNA L 782 .2 LOCALIZED SUPERFICIAL SWELLING MASS OR LUMP 12/03/2014 JUSTICE VARGAS MD 401.9 HYPERTENSION, UNSPECIFIED ESSENTIAL 12/03/2014 MISTI MINER TATYANA L 401 .9 HYPERTENSION, UNSPECIFIED ESSENTIAL 12/03/2014 IVÁN GRACE ORE SMELTER Ot 719.45 JOINT PAIN-PELVIS 12/03/2014 IVÁN GRACE APRN Ot 724 .3 SCIATICA 12/09/2014 ALICIA WALLIS, JUSTICE 719.45 PAIN- HIP 12/09/2014 MISTI MINER TATYANA Gray 719 .45 PAIN- HIP 12/20/2014 TATYANA CHAPPELL MEDICAID BILLING SPECIALIST Ot 722.10 12/20/2014 TATYANA CHAPPELL MEDICAID BILLING SPECIALIST Ot 722.52 12/23/2014 Ot 782.2 01/03/2015 RENEE WALLIS, LILIBETH Thomas Ot 780.4 DIZZINESS AND GIDDINESS 01/03/2015 LILIBETH DURAN MD Ot 787.02 NAUSEA ALONE 01/10/2015 MISTITATYANA Gray MEDICAID BILLING SPECIALIST Ot 722.10 01/10/2015 MISTITATYANA Gray MEDICAID BILLING SPECIALIST Ot 722.52 01/19/2015 MONICA LANGE Ot 272.4 [...] DO Ot 348.89 01/30/2015 MADL, TATYANA L MEDICAID BILLING SPECIALIST Ot 272 .4 01/30/2015 MADL, TATYANA L MEDICAID BILLING SPECIALIST Ot 401 .1 01/30/2015 MADL, TATYANA L MEDICAID BILLING SPECIALIST Ot 414.00 01/30/2015 MADL, TATYANA L MEDICAID BILLING SPECIALIST Ot 786.50 01/30/2015 Ot 782.2 01/30/2015 MONICA LANGE Ot 272.4 01/30/2015 MONICA LANGE Ot 401.9 01/30/2015 MONICA LANGE Ot 414.00 01/30/2015 MONICA LANGE Ot 786.50 01/30/2015 JOANL, TATYANA L MEDICAID BILLING SPECIALIST Ot 722.10 01/30/2015 MADL, TATYANA L MEDICAID BILLING SPECIALIST Ot 722.52 01/30/2015 IVÁN GRACE ORE SMELTER Ot 250.00 DIAB YAHAIRA WO COMPL, TYPE II OR UNSPEC TY 01/30/2015 IVÁN GRACE ORE SMELTER Ot 401 .9 HYPERTENSION NOS 01/30/2015 IVÁN GRACE ORE SMELTER Ot 530.81 ESOPHAGEAL REFLUX 01/30/2015 IVÁN GRACE ORE SMELTER Ot 787.91 DIARRHEA 01/30/2015 IVÁN GRACE ORE SMELTER Ot V58.67 LONG-TERM (CURRENT) USE OF INSULIN 02/20/2015 JOANL, TATYANA L MEDICAID BILLING SPECIALIST Ot 272 .4 HYPERLIPIDEMIA NEC/NOS 02/20/2015 MADL, TATYANA L MEDICAID BILLING SPECIALIST Ot 401 .1 BENIGN HYPERTENSION 02/20/2015 MADL, TATYANA L MEDICAID BILLING SPECIALIST Ot 414.00 CORON ATHEROSCLER NOS TYPE VESSEL, NATIV 02/20/2015 MADL, TATYANA L MEDICAID BILLING SPECIALIST Ot 786.50 CHEST PAIN NOS 03/01/2015 Ot [...] PAIN 07/13/2015 LILIBETH DURAN MD Ot Z79.4 HALFWAY (CURRENT) USE OF INSULIN 07/13/2015 BRENDON PLUNKETT [...] MONICA LANGE Ot 786.50 07/13/2015 MADTATYANA Castellano MEDICAID BILLING SPECIALIST Ot 722.10 07/13/2015 MADTATYANA Castellano MEDICAID BILLING SPECIALIST Ot 722.52 07/13/2015 MADTATYANA Castellano MEDICAID BILLING SPECIALIST Ot 272 .4 07/13/2015 MADTATYANA Castellano MEDICAID BILLING SPECIALIST Ot 401 .1 07/13/2015 MADTATYANA Castellano MEDICAID BILLING SPECIALIST Ot 414.00 07/13/2015 MADTATYANA Castellano MEDICAID BILLING SPECIALIST Ot 786.50 07/22/2015 NONI CAMPBELL MD, Ot [...] Ot I25. 10 ATHSCL HEART DISEASE OF [place] CORONARY 10/24/2015 JUSTICE VARGAS MD, Ot J44. 9 CHRONIC OBSTRUCTIVE PULMONARY DISEASE, U 10/24/2015 JUSTICE VARGAS MD, Ot K21. 9 GASTRO-ESOPHAGEAL REFLUX DISEASE WITHOUT 10/24/2015 JUSTICE VARGAS MD, Ot K44. 9 DIAPHRAGMATIC HERNIA WITHOUT OBSTRUCTION 10/24/2015 JUSTICE VARGAS MD Ot R07. 9 CHEST PAIN, UNSPECIFIED 10/24/2015 JUSTICE VARGAS MD Ot Z79. 4 DIRECTOR OF MEDICARE (CURRENT) USE OF INSULIN 10/24/2015 JUSTICE VARGAS MD Ot Z91. 14 PATIENT'S OTHER NONCOMPLIANCE WITH MEDIC 01/02/2016 BRENDON PLUNKETT DO Ot 250. 01 DIAB YAAHIRA WO COMPL, TYPE I [JUVENILE TYP 01/02/2016 [...] CHEST PAIN NOS 01/02/2016 MADL, TATYANA L MEDICAID BILLING SPECIALIST Ot 722.10 LUMBAR DISC DISPLACEMENT 01/02/2016 MADL, TATYANA L MEDICAID BILLING SPECIALIST Ot 722.52 LUMB/LUMBOSAC DISC DEGEN 01/02/2016 MADL, TATYANA L MEDICAID BILLING SPECIALIST Ot 272 .4 HYPERLIPIDEMIA NEC/NOS 01/02/2016 MADL, TATYANA L MEDICAID BILLING SPECIALIST Ot 401 .1 BENIGN HYPERTENSION 01/02/2016 MADL, TATYANA L MEDICAID BILLING SPECIALIST Ot 414.00 CORON ATHEROSCLER NOS TYPE VESSEL, NATIV 01/02/2016 MADL, TATYANA L MEDICAID BILLING SPECIALIST Ot 786.50 CHEST PAIN NOS 01/02/2016 NONI CAMPBELL MD Ot Z01.81 8 ENCOUNTER FOR OTHER PREPROCEDURAL EXAMIN 01/02/2016 NONI CAMPBELL MD Ot R10.11 RIGHT UPPER QUADRANT PAIN 01/03/2016 MADL, TATYANA L MEDICAID BILLING SPECIALIST Ot M79.601 PAIN IN RIGHT ARM 01/03/2016 MADL, TATYANA L MEDICAID BILLING SPECIALIST Ot R20 .2 PARESTHESIA OF SKIN 02/07/2016 MADL, TATYANA L MEDICAID BILLING SPECIALIST Ot M79.601 PAIN IN RIGHT ARM 02/07/2016 MADL, TATYANA L MEDICAID BILLING SPECIALIST Ot R20 .2 PARESTHESIA OF SKIN 03/14/2016 [...] 03/14/2016 NINFA VU MD Ot Z79 .4 DIRECTOR OF MEDICARE (CURRENT) USE OF INSULIN 03/14/2016 NINFA VU [...] CHEST PAIN NOS 03/15/2016 MADL, TATYANA L MEDICAID BILLING SPECIALIST Ot 722.10 LUMBAR DISC DISPLACEMENT 03/15/2016 MADL, TATYANA L MEDICAID BILLING SPECIALIST Ot 722.52 LUMB/LUMBOSAC DISC DEGEN 03/15/2016 MADL, TATYANA L MEDICAID BILLING SPECIALIST Ot 272 .4 HYPERLIPIDEMIA NEC/NOS 03/15/2016 MADL, TATYANA L MEDICAID BILLING SPECIALIST Ot 401 .1 BENIGN HYPERTENSION 03/15/2016 MADL, TATYANA L MEDICAID BILLING SPECIALIST Ot 414.00 CORON ATHEROSCLER NOS TYPE VESSEL, NATIV 03/15/2016 MADL, TATYANA L MEDICAID BILLING SPECIALIST Ot 786.50 CHEST PAIN NOS 03/15/2016 NONI CAMPBELL MD Ot Z01.81 8 ENCOUNTER FOR OTHER PREPROCEDURAL EXAMIN 03/15/2016 NONI CAMPBELL MD Ot R10.11 RIGHT UPPER QUADRANT PAIN 03/15/2016 MADL, TATYANA L MEDICAID BILLING SPECIALIST Ot M79.601 PAIN IN RIGHT ARM 03/15/2016 MADL, TATYANA L MEDICAID BILLING SPECIALIST Ot R20 .2 PARESTHESIA OF SKIN 05/29/2016 [...] CHEST PAIN NOS 05/29/2016 MADL, TATYANA L MEDICAID BILLING SPECIALIST Ot 722.10 LUMBAR DISC DISPLACEMENT 05/29/2016 MADL, TATYANA L MEDICAID BILLING SPECIALIST Ot 722.52 LUMB/LUMBOSAC DISC DEGEN 05/29/2016 MADL, TATYANA L MEDICAID BILLING SPECIALIST Ot 272 .4 HYPERLIPIDEMIA NEC/NOS 05/29/2016 MISTITATYANA MEDICAID BILLING SPECIALIST Ot 401 .1 BENIGN HYPERTENSION 05/29/2016 MISTITATYANA MEDICAID BILLING SPECIALIST Ot 414.00 CORON ATHEROSCLER NOS TYPE VESSEL, NATIV 05/29/2016 MISTI TATYANA Castellano MEDICAID BILLING SPECIALIST Ot 786.50 CHEST PAIN NOS 05/29/2016 NONI CAMPBELL MD Ot Z01.81 8 ENCOUNTER FOR OTHER PREPROCEDURAL EXAMIN 05/29/2016 NONI CAMPBELL MD Ot R10.11 RIGHT UPPER QUADRANT PAIN 05/29/2016 MISTI TATYANA L MEDICAID BILLING SPECIALIST Ot M79.601 PAIN IN RIGHT ARM 05/29/2016 TATYANA CHAPPELL MEDICAID BILLING SPECIALIST Ot R20 .2 PARESTHESIA OF SKIN 05/29/2016 [...] CHEST PAIN NOS 06/15/2016 MADL, TATYANA L MEDICAID BILLING SPECIALIST Ot 722.10 LUMBAR DISC DISPLACEMENT 06/15/2016 MADL, TATYANA L MEDICAID BILLING SPECIALIST Ot 722.52 LUMB/LUMBOSAC DISC DEGEN 06/15/2016 MADL, TATYANA L MEDICAID BILLING SPECIALIST Ot 272 .4 HYPERLIPIDEMIA NEC/NOS 06/15/2016 MADL, TATYANA L MEDICAID BILLING SPECIALIST Ot 401 .1 BENIGN HYPERTENSION 06/15/2016 MADL, TATYANA L MEDICAID BILLING SPECIALIST Ot 414.00 CORON ATHEROSCLER NOS TYPE VESSEL, NATIV 06/15/2016 MADL, TATYANA L MEDICAID BILLING SPECIALIST Ot 786.50 CHEST PAIN NOS 06/15/2016 NONI CAMPBELL MD Ot Z01.81 8 ENCOUNTER FOR OTHER PREPROCEDURAL EXAMIN 06/15/2016 NONI CAMPBELL MD Ot R10.11 RIGHT UPPER QUADRANT PAIN 06/15/2016 MADL, TATYANA L MEDICAID BILLING SPECIALIST Ot M79.601 PAIN IN RIGHT ARM 06/15/2016 MADL, TATYANA L MEDICAID BILLING SPECIALIST Ot R20 .2 PARESTHESIA OF SKIN 06/15/2016 [...] 09/24/2016 RONA ENRIQUE MD Ot Z79 .4 HALFWAY (CURRENT) USE OF INSULIN 09/24/2016 RONA ENRIQUE MD Ot Z79.899 OTHER DIRECTOR OF MEDICARE (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 THERAPY 09/25/2016 RONA ENRIQUE MD [...] 09/25/2016 RONA ENRIQUE MD Ot Z79 .4 DIRECTOR OF MEDICARE (CURRENT) USE OF INSULIN 09/25/2016 RONA ENRIQUE MD Ot Z79.899 OTHER HALFWAY (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 THERAPY 09/25/2016 RONA ENRIQUE MD [...] 09/25/2016 RONA ENRIQUE MD Ot Z79 .4 HALFWAY (CURRENT) USE OF INSULIN 09/25/2016 RONA ENRIQUE MD Ot Z79.899 OTHER HALFWAY (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 THERAPY 09/26/2016 RONA ENRIQUE MD Ot E11 .9 TYPE 2 DIABETES MELLITUS WITHOUT COMPLIC 09/26/2016 RONA ENRIQUE MD Ot F17.210 NICOTINE DEPENDENCE, CIGARETTES, UNCOMPL 09/26/2016 RONA ENRIQUE MD Ot I10 ESSENTIAL (PRIMARY) HYPERTENSION 09/26/2016 RONA ENRIQUE MD Ot J06 .9 ACUTE UPPER RESPIRATORY INFECTION, UNSPE 09/26/2016 RONA ENRIQUE MD Ot J44 .9 CHRONIC OBSTRUCTIVE PULMONARY DISEASE, U 09/26/2016 RONA ENRIQUE MD Ot R05 COUGH 09/26/2016 RONA ENRIQUE MD Ot R42 DIZZINESS AND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 LIZZETTE OLSON ORE SMELTER Ot E11.621 TYPE 2 DIABETES MELLITUS WITH FOOT ULCER 12/03/2018 LIZZETTE OLSON ORE SMELTER Ot L97.524 NON-PRS CHRONIC ULCER OTH PRT LEFT FOOT 12/03/2018 LIZZETTE OLSON ORE SMELTER Ot M86.472 CHRONIC OSTEOMYELITIS W DRAINING SINUS, 12/03/2018 LIZZETTE OLSON ORE SMELTER Ot Z72.0 TOBACCO USE 12/09/2018 LIZZETTE OLSON ORE SMELTER Ot E11.621 TYPE 2 DIABETES MELLITUS WITH FOOT ULCER 12/09/2018 LIZZETTE OLSON ORE SMELTER Ot L97.524 NON-PRS CHRONIC ULCER OTH PRT LEFT FOOT 12/09/2018 LIZZETTE OLSON ORE SMELTER Ot M86.472 CHRONIC OSTEOMYELITIS W DRAINING SINUS, 12/09/2018 LIZZETTE OLSON ORE SMELTER Ot Z72.0 TOBACCO USE 12/10/2018 LIZZETTE OLSON ORE SMELTER Ot E11.621 TYPE 2 DIABETES MELLITUS WITH FOOT ULCER 12/10/2018 LIZZETTE OLSON ORE SMELTER Ot L97.524 NON-PRS CHRONIC ULCER OTH PRT LEFT FOOT 12/10/2018 LIZZETTE OLSON ORE SMELTER Ot M86.472 CHRONIC OSTEOMYELITIS W DRAINING SINUS, 12/10/2018 LIZZETTE OLSON ORE SMELTER Ot Z72.0 TOBACCO USE 12/10/2018 LIZZETTE OLSON ORE SMELTER Ot E11.621 TYPE 2 DIABETES MELLITUS WITH FOOT ULCER 12/10/2018 LIZZETTE OLSON ORE SMELTER Ot L97.524 NON-PRS CHRONIC ULCER OTH PRT [...] EXAM PRE-OPERATIVE NOS 12/12/2018 CONSTANZA, ADITYA E ORE SMELTER Ot 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 DISEASE, UNSPECIF 12/12/2018 ADITYA APODACA ORE SMELTER Ot M35.00 SICCA SYNDROME, UNSPECIFIED 12/12/2018 ADITYA APODACA ORE SMELTER Ot R06.00 DYSPNEA, UNSPECIFIED 12/12/2018 ADITYA APODACA ORE SMELTER Ot 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 DISEASE, UNSPECIF 12/12/2018 ADITYA APODACA ORE SMELTER Ot R06.00 DYSPNEA, UNSPECIFIED 12/12/2018 ADITYA APODACA ORE SMELTER Ot R09.02 HYPOXEMIA 12/12/2018 ADITYA APODACA ORE SMELTER Ot Z72.0 TOBACCO USE 12/12/2018 LIZZETTE OLSON ORE SMELTER Ot E11.621 TYPE 2 DIABETES MELLITUS WITH FOOT ULCER 12/12/2018 LIZZETTE OLSON ORE SMELTER Ot L97.522 NON-PRS CHRONIC ULCER OTH PRT LEFT FOOT 12/12/2018 LIZZETTE OLSON ORE SMELTER Ot Z72.0 TOBACCO USE 12/12/2018 LIZZETTE OLSON ORE SMELTER Ot E11.621 TYPE 2 DIABETES MELLITUS WITH FOOT ULCER 12/12/2018 LIZZETTE OLSON ORE SMELTER Ot L97.512 NON-PRS CHRONIC ULCER OTH PRT [...] ULCER OTH PRT LEFT 12/12/2018 ADITYA APODACA ORE SMELTER Ot R91.8 OTHER NONSPECIFIC ABNORMAL FINDING OF DEL 12/12/2018 LIZZETTE OLSON ORE SMELTER Ot E11.621 TYPE 2 DIABETES MELLITUS WITH FOOT ULCER 12/12/2018 LIZZETTE OLSON ORE SMELTER Ot L97.514 NON-PRS CHRONIC ULCER OTH PRT RIGHT FOOT 12/12/2018 LIZZETTE OLSON ORE SMELTER Ot M86.472 CHRONIC OSTEOMYELITIS W DRAINING SINUS, 12/12/2018 LIZZETTE OLSON ORE SMELTER Ot Z72.0 TOBACCO USE 12/12/2018 LIZZETTE OLSON ORE SMELTER Ot E11.621 TYPE 2 DIABETES MELLITUS WITH FOOT ULCER 12/12/2018 LIZZETTE OLSON ORE SMELTER Ot L97.524 NON-PRS CHRONIC ULCER OTH PRT LEFT FOOT 12/12/2018 LIZZETTE OLSON ORE SMELTER Ot M86.472 CHRONIC OSTEOMYELITIS W DRAINING SINUS, 12/12/2018 LIZZETTE OLSON ORE SMELTER Ot Z72.0 TOBACCO USE 12/12/2018 LIZZETTE OLSON ORE SMELTER Ot E11.621 TYPE 2 DIABETES MELLITUS WITH FOOT ULCER 12/12/2018 LIZZETTE OLSON ORE SMELTER Ot L97.524 NON-PRS CHRONIC ULCER OTH PRT LEFT FOOT 12/12/2018 LIZZETTE OLSON ORE SMELTER Ot M86.472 CHRONIC OSTEOMYELITIS W DRAINING SINUS, 12/12/2018 LIZZETTE OLSON ORE SMELTER Ot Z72.0 TOBACCO USE 12/12/2018 ADITYA APODACA ORE SMELTER Ot R04.2 HEMOPTYSIS 12/12/2018 ADITYA APODACA ORE SMELTER Ot R06.02 SHORTNESS OF BREATH 12/12/2018 ADITYA APODACA APRN Ot Z98.890 OTHER SPECIFIED POSTPROCEDURAL STATES 12/12/2018 LIZZETTE OLSON ORE SMELTER Ot E11.621 TYPE 2 DIABETES MELLITUS WITH FOOT ULCER 12/12/2018 LIZZETTE OLSON ORE SMELTER Ot L97.524 NON-PRS CHRONIC ULCER OTH PRT LEFT FOOT 12/12/2018 LIZZETTE OLSON ORE SMELTER Ot M86.472 CHRONIC OSTEOMYELITIS W DRAINING SINUS, 12/12/2018 LIZZETTE OLSON ORE SMELTER Ot Z72.0 TOBACCO USE 12/12/2018 DAVID SANTAMARIA MD Ot E11.621 TYPE 2 DIABETES MELLITUS WITH FOOT ULCER 12/12/2018 DAVID SANTAMARIA MD Ot L97.522 NON- PRS CHRONIC ULCER OTH PRT LEFT FOOT 12/12/2018 DAVID SANTAMARIA MD Ot M86.472 CHRONIC OSTEOMYELITIS W DRAINING SINUS, 12/12/2018 DAVID SANTAMARIA MD Ot Z72.0 TOBACCO USE 12/12/2018 WESLEYLIZZETTE ORE SMELTER Ot E11.621 TYPE 2 DIABETES MELLITUS WITH FOOT ULCER 12/12/2018 WESLEYLIZZETTE ORE SMELTER Ot L97.522 NON-PRS CHRONIC ULCER OTH PRT LEFT FOOT 12/12/2018 LIZZETTE OLSON ORE SMELTER Ot M86.472 CHRONIC OSTEOMYELITIS W DRAINING SINUS, 12/12/2018 WESLEYLIZZETTE ORE SMELTER Ot Z72.0 TOBACCO USE 12/12/2018 WESLEYLIZZETTE R ORE SMELTER Ot E11.621 TYPE 2 DIABETES MELLITUS WITH FOOT ULCER 12/12/2018 [place] LIZZETTE R ORE SMELTER Ot L97.522 NON-PRS CHRONIC ULCER OTH PRT LEFT FOOT 12/12/2018 LIZZETTE OLSON ORE SMELTER Ot M86.472 CHRONIC OSTEOMYELITIS W DRAINING SINUS, 12/12/2018 LIZZETTE OLSON ORE SMELTER Ot Z72.0 TOBACCO USE 12/12/2018 LIZZETTE OLSON ORE SMELTER Ot E11.621 TYPE 2 DIABETES MELLITUS WITH FOOT ULCER 12/12/2018 LIZZETTE OLSON R ORE SMELTER Ot L97.522 NON-PRS CHRONIC ULCER OTH PRT LEFT FOOT 12/12/2018 LIZZETTE OLSON ORE SMELTER Ot M86.472 CHRONIC OSTEOMYELITIS W DRAINING SINUS, 12/12/2018 LIZZETTE OLSON ORE SMELTER Ot Z72.0 TOBACCO USE 12/12/2018 LIZZETTE OLSON ORE SMELTER Ot E11.621 TYPE 2 DIABETES MELLITUS WITH FOOT ULCER 12/12/2018 LIZZETTE OLSON ORE SMELTER Ot L97.522 NON-PRS CHRONIC ULCER OTH PRT LEFT FOOT 12/12/2018 LIZZETTE OLSON ORE SMELTER Ot M86.472 CHRONIC OSTEOMYELITIS W DRAINING SINUS, 12/12/2018 LIZZETTE OLSON ORE SMELTER Ot Z72.0 TOBACCO USE 12/12/2018 BEL WALLIS, KIMBER Harris Ot E11.621 TYPE 2 DIABETES MELLITUS WITH FOOT ULCER 12/12/2018 KIMBER STAPLES MD Ot L97.522 NON-PRS CHRONIC ULCER OTH PRT LEFT FOOT 12/12/2018 KIMBER STAPLES MD Ot M86.472 CHRONIC OSTEOMYELITIS W DRAINING SINUS, 12/12/2018 KIMBER STAPLES MD Ot Z72 .0 TOBACCO USE 12/12/2018 LIZZETTE OLSON ORE SMELTER Ot E11.621 TYPE 2 DIABETES MELLITUS WITH FOOT ULCER 12/12/2018 LIZZETTE OLSON ORE SMELTER Ot L97.522 NON-PRS CHRONIC ULCER OTH PRT LEFT FOOT 12/12/2018 LIZZETTE OLSON ORE SMELTER Ot M86.472 CHRONIC OSTEOMYELITIS W DRAINING SINUS, 12/12/2018 LIZZETTE OLSON ORE SMELTER Ot Z72.0 TOBACCO USE 12/12/2018 LIZZETTE OLSON ORE SMELTER Ot E11.621 TYPE 2 DIABETES MELLITUS WITH FOOT ULCER 12/12/2018 LIZZETTE OLSON ORE SMELTER Ot L97.522 NON-PRS CHRONIC ULCER OTH PRT LEFT FOOT 12/12/2018 LIZZETTE OLSON ORE SMELTER Ot M86.472 CHRONIC OSTEOMYELITIS W DRAINING SINUS, 12/12/2018 LIZZETTE OLSON ORE SMELTER Ot Z72.0 TOBACCO USE 12/12/2018 LIZZETTE OLSON ORE SMELTER Ot E11.621 TYPE 2 DIABETES MELLITUS WITH FOOT ULCER 12/12/2018 LIZZETTE OLSON ORE SMELTER Ot L97.522 NON-PRS CHRONIC ULCER OTH PRT LEFT FOOT 12/12/2018 LIZZETTE OLSON ORE SMELTER Ot M86.472 CHRONIC OSTEOMYELITIS W DRAINING SINUS, 12/12/2018 LIZZETTE OLSON ORE SMELTER Ot Z72.0 TOBACCO USE 12/12/2018 Ot E11.621 TY PE 2 DIABETES MELLITUS WITH FOOT ULCER 12/12/2018 LIZZETTE OLSON ORE SMELTER Ot E11.621 TYPE 2 DIABETES MELLITUS WITH FOOT ULCER 12/12/2018 LIZZETTE OLSON ORE SMELTER Ot L97.522 NON-PRS CHRONIC ULCER OTH PRT LEFT FOOT 12/12/2018 LIZZETTE OLSON ORE SMELTER Ot M86.472 CHRONIC OSTEOMYELITIS W DRAINING SINUS, 12/12/2018 LIZZETTE OLSON ORE SMELTER Ot Z72.0 TOBACCO USE 12/12/2018 LIZZETTE OLSON ORE SMELTER Ot E11.621 TYPE 2 DIABETES MELLITUS WITH FOOT ULCER 12/12/2018 LIZZETTE OLSON ORE SMELTER Ot L97.523 NON-PRS CHRONIC ULCER OTH PRT LEFT FOOT 12/12/2018 LIZZETTE OLSON ORE SMELTER Ot M86.472 CHRONIC OSTEOMYELITIS W DRAINING SINUS, 12/12/2018 LIZZETTE OLSON ORE SMELTER Ot Z72.0 TOBACCO USE 12/12/2018 LIZZETTE OLSON ORE SMELTER Ot E11.621 TYPE 2 DIABETES MELLITUS WITH FOOT ULCER 12/12/2018 LIZZETTE OLSON ORE SMELTER Ot L97.523 NON-PRS CHRONIC ULCER OTH PRT LEFT FOOT 12/12/2018 LIZZETTE OLSON ORE SMELTER Ot M86.472 CHRONIC OSTEOMYELITIS W DRAINING SINUS, 12/12/2018 LIZZETTE OLSON ORE SMELTER Ot Z72.0 TOBACCO USE 12/12/2018 KIMBER STAPLES MD Ot E11.621 TYPE 2 DIABETES MELLITUS WITH FOOT ULCER 12/12/2018 BEL WALLIS, KIMBER Harris Ot E11.69 TYPE 2 DIABETES MELLITUS WITH OTHER SPEC 12/12/2018 KIMBER STAPLES MD Ot L97.523 NON-PRS CHRONIC ULCER [...] Z72 .0 TOBACCO USE 12/12/2018 LIZZETTE OLSON ORE SMELTER Ot E11.621 TYPE 2 DIABETES MELLITUS WITH FOOT ULCER 12/12/2018 LIZZETTE OLSON ORE SMELTER Ot L97.524 NON-PRS CHRONIC ULCER OTH PRT LEFT FOOT 12/12/2018 LIZZETTE OLSON ORE SMELTER Ot M86.472 CHRONIC OSTEOMYELITIS W DRAINING SINUS, 12/12/2018 LIZZETTE OLSON ORE SMELTER Ot Z72.0 TOBACCO USE 12/12/2018 LIZZETTE OLSON ORE SMELTER Ot E11.621 TYPE 2 DIABETES MELLITUS WITH FOOT ULCER 12/12/2018 LIZZETTE OLSON ORE SMELTER Ot L97.524 NON-PRS CHRONIC ULCER OTH PRT LEFT FOOT 12/12/2018 LIZZETTE OLSON ORE SMELTER Ot M86.472 CHRONIC OSTEOMYELITIS W DRAINING SINUS, 12/12/2018 LIZZETTE OLSON ORE SMELTER Ot Z72.0 TOBACCO USE 12/12/2018 LIZZETTE OLSON ORE SMELTER Ot E11.621 TYPE 2 DIABETES MELLITUS WITH FOOT ULCER 12/12/2018 LIZZETTE OLSON ORE SMELTER Ot L97.524 NON-PRS CHRONIC ULCER OTH PRT LEFT FOOT 12/12/2018 LIZZETTE OLSON ORE SMELTER Ot M86.472 CHRONIC OSTEOMYELITIS W DRAINING SINUS, 12/12/2018 LIZZETTE OLSON ORE SMELTER Ot Z72.0 TOBACCO USE 12/12/2018 ADITYA APODACA ORE SMELTER Ot R91.8 OTHER NONSPECIFIC ABNORMAL FINDING OF DEL 12/12/2018 LIZZETTE OLSON ORE SMELTER Ot E11.621 TYPE 2 DIABETES MELLITUS WITH FOOT ULCER 12/12/2018 LIZZETTE OLSON ORE SMELTER Ot L97.514 NON-PRS CHRONIC ULCER OTH PRT RIGHT FOOT 12/12/2018 LIZZETTE OLSON ORE SMELTER Ot M86.472 CHRONIC OSTEOMYELITIS W DRAINING SINUS, 12/12/2018 LIZZETTE OLSON ORE SMELTER Ot Z72.0 TOBACCO USE 12/16/2018 LIZZETTE OLSON ORE SMELTER Ot E11.621 TYPE 2 DIABETES MELLITUS WITH FOOT ULCER 12/16/2018 LIZZETTE OLSON ORE SMELTER Ot L97.524 NON-PRS CHRONIC ULCER OTH PRT LEFT FOOT 12/16/2018 LIZZETTE OLSON APRN Ot M86.472 CHRONIC OSTEOMYELITIS W DRAINING SINUS, 12/16/2018 LIZZETTE OLSON ORE SMELTER Ot Z72.0 TOBACCO USE 12/16/2018 KIMBER STAPLES MD Ot E11.621 TYPE 2 DIABETES MELLITUS WITH FOOT ULCER 12/16/2018 KIMBER STAPLES MD Ot E11.69 TYPE 2 DIABETES MELLITUS WITH OTHER SPEC 12/16/2018 KIMBER STAPLES MD Ot L97.523 NON-PRS CHRONIC ULCER OTH PRT LEFT FOOT 12/16/2018 KIMBER STAPLES MD Ot M86.472 CHRONIC OSTEOMYELITIS W DRAINING SINUS, 12/16/2018 KIMBER STAPLES MD Ot Z72 .0 TOBACCO USE 12/18/2018 LIZZETTE OLSON ORE SMELTER Ot E11.69 TYPE 2 DIABETES MELLITUS WITH OTHER SPEC 12/18/2018 LIZZETTE OLSON ORE SMELTER Ot M86.472 CHRONIC OSTEOMYELITIS W DRAINING SINUS, 12/19/2018 LIZZETTE OLSON ORE SMELTER Ot E11.69 TYPE 2 DIABETES MELLITUS WITH OTHER SPEC 12/19/2018 LIZZETTE OLSON ORE SMELTER Ot M86.472 CHRONIC OSTEOMYELITIS W DRAINING SINUS, 12/19/2018 Ot E11.40 TYP E 2 DIABETES MELLITUS WITH DIABETIC N 12/19/2018 Ot E78.00 PUR E HYPERCHOLESTEROLEMIA, UNSPECIFIED 12/19/2018 Ot F41.9 ANXI ETY DISORDER, UNSPECIFIED 12/19/2018 Ot G47.30 SLE EP APNEA, UNSPECIFIED 12/19/2018 Ot I10 ESSENT IAL (PRIMARY) HYPERTENSION 12/19/2018 Ot I25.2 OLD MYOCARDIAL INFARCTION 12/19/2018 Ot 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, U 12/19/2018 Ot K21.9 QUINCY RO-ESOPHAGEAL REFLUX DISEASE WITHOUT 12/19/2018 Ot T82.838A H EMORRHAGE DUE TO VASCULAR PROSTH DEV/GR 12/19/2018 Ot Z79.4 HALFWAY (CURRENT) USE OF INSULIN 12/19/2018 Ot Z80.0 [...] OT HER SPECIFIED POSTPROCEDURAL STATES 12/20/2018 LIZZETTE OLSON APRN Ot E11.69 TYPE [...] I25.2 OLD MYOCARDIAL INFARCTION 12/22/2018 Ot 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, U 12/22/2018 Ot K21.9 QUINCY RO-ESOPHAGEAL REFLUX DISEASE WITHOUT 12/22/2018 Ot T82.838A H EMORRHAGE DUE TO VASCULAR PROSTH DEV/GR 12/22/2018 Ot Z79.4 DIRECTOR OF MEDICARE (CURRENT) USE OF INSULIN 12/22/2018 Ot Z80.0 [...] MELLITUS WITH OTHER SPEC 12/23/2018 LIZZETTE OLSON ORE SMELTER Ot M86.472 CHRONIC OSTEOMYELITIS W DRAINING SINUS, 12/24/2018 LIZZETTE OLSON ORE SMELTER Ot E11.69 TYPE 2 DIABETES MELLITUS WITH OTHER SPEC 12/24/2018 LIZZETTE OLSON ORE SMELTER Ot M86.472 CHRONIC OSTEOMYELITIS W DRAINING SINUS, 12/24/2018 LIZZETTE OLSON ORE SMELTER Ot E11.621 TYPE 2 DIABETES MELLITUS WITH FOOT ULCER 12/24/2018 LIZZETTE OLSON ORE SMELTER Ot L97.524 NON-PRS CHRONIC ULCER OTH PRT LEFT FOOT 12/24/2018 LIZZETTE OLSON ORE SMELTER Ot M86.472 CHRONIC OSTEOMYELITIS W DRAINING SINUS, 12/24/2018 LIZZETTE OLSON ORE SMELTER Ot Z72.0 TOBACCO USE 12/24/2018 LIZZETTE OLSON R ORE SMELTER Ot E11.69 TYPE 2 DIABETES MELLITUS WITH OTHER SPEC 12/24/2018 LIZZETTE OLSON R ORE SMELTER Ot M86.472 CHRONIC OSTEOMYELITIS W DRAINING SINUS, 12/25/2018 LIZZETTE OLSON ORE SMELTER Ot E11.69 TYPE 2 DIABETES MELLITUS WITH OTHER SPEC 12/25/2018 LIZZETTE OLSON R ORE SMELTER Ot M86.472 CHRONIC OSTEOMYELITIS W DRAINING SINUS, 12/26/2018 LIZZETTE OLSON R ORE SMELTER Ot E11.69 TYPE 2 DIABETES MELLITUS WITH OTHER SPEC 12/26/2018 LIZZETTE OLSON R ORE SMELTER Ot M86.472 CHRONIC OSTEOMYELITIS W DRAINING SINUS, 12/26/2018 LIZZETTE OLSON R ORE SMELTER Ot E11.69 TYPE 2 DIABETES MELLITUS WITH OTHER SPEC 12/26/2018 LIZZETTE OLSON ORE SMELTER Ot M86.472 CHRONIC OSTEOMYELITIS W DRAINING SINUS, 12/27/2018 LIZZETTE OLSON R ORE SMELTER Ot E11.69 TYPE 2 DIABETES MELLITUS WITH OTHER SPEC 12/27/2018 LIZZETTE OLSON R ORE SMELTER Ot M86.472 CHRONIC OSTEOMYELITIS W DRAINING SINUS, 12/27/2018 LIZZETTE OLSON R ORE SMELTER Ot E11.69 TYPE 2 DIABETES MELLITUS WITH OTHER SPEC 12/27/2018 LIZZETTE OLSON R ORE SMELTER Ot M86.472 CHRONIC OSTEOMYELITIS W DRAINING SINUS, 12/28/2018 LIZZETTE OLSON R ORE SMELTER Ot E11.69 TYPE 2 DIABETES MELLITUS WITH OTHER SPEC 12/28/2018 LIZZETTE OLSON ORE SMELTER Ot M86.472 CHRONIC OSTEOMYELITIS W DRAINING SINUS, 12/28/2018 LIZZETTE OLSON R ORE SMELTER Ot E11.69 TYPE 2 DIABETES MELLITUS WITH OTHER SPEC 12/28/2018 LIZZETTE OLSON R ORE SMELTER Ot M86.472 CHRONIC OSTEOMYELITIS W DRAINING SINUS, 12/28/2018 LIZZETTE OLSON R ORE SMELTER Ot E11.69 TYPE 2 DIABETES MELLITUS WITH OTHER SPEC 12/28/2018 LIZZETTE OLSON R ORE SMELTER Ot M86.472 CHRONIC OSTEOMYELITIS W DRAINING SINUS, 12/29/2018 LIZZETTE OLSON ORE SMELTER Ot E11.69 TYPE 2 DIABETES MELLITUS WITH OTHER SPEC 12/29/2018 LIZZETTE OLSON R ORE SMELTER Ot M86.472 CHRONIC OSTEOMYELITIS W DRAINING SINUS, 12/29/2018 LIZZETTE OLSON R ORE SMELTER Ot E11.69 TYPE 2 DIABETES MELLITUS WITH OTHER SPEC 12/29/2018 LIZZETTE OLSON R ORE SMELTER Ot M86.472 CHRONIC OSTEOMYELITIS W DRAINING SINUS, 12/29/2018 LIZZETTE OLSON R ORE SMELTER Ot E11.621 TYPE 2 DIABETES MELLITUS WITH FOOT ULCER 12/29/2018 LIZZETTE OLSON R ORE SMELTER Ot L97.524 NON-PRS CHRONIC ULCER OTH PRT LEFT FOOT 12/29/2018 LIZZETTE OLSON ORE SMELTER Ot M86.472 CHRONIC OSTEOMYELITIS W DRAINING SINUS, 12/29/2018 LIZZETTE OLSON R ORE SMELTER Ot Z72.0 TOBACCO USE 12/29/2018 LIZZETTE OLSON R ORE SMELTER Ot E11.69 TYPE 2 DIABETES MELLITUS WITH OTHER SPEC 12/29/2018 LIZZETTE OLSON R ORE SMELTER Ot M86.472 CHRONIC OSTEOMYELITIS W DRAINING SINUS, 12/30/2018 LIZZETTE OLSON R ORE SMELTER Ot E11.69 TYPE 2 DIABETES MELLITUS WITH OTHER SPEC 12/30/2018 LIZZETTE OLSON ORE SMELTER Ot M86.472 CHRONIC OSTEOMYELITIS W DRAINING SINUS, 12/31/2018 LIZZETTE OLSON R ORE SMELTER Ot E11.69 TYPE 2 DIABETES MELLITUS WITH OTHER SPEC 12/31/2018 LIZZETTE OLSON R ORE SMELTER Ot M86.472 CHRONIC OSTEOMYELITIS W DRAINING SINUS, 12/31/2018 LIZZETTE OLSON R ORE SMELTER Ot E11.69 TYPE 2 DIABETES MELLITUS WITH OTHER SPEC 12/31/2018 LIZZETTE OLSON R ORE SMELTER Ot M86.472 CHRONIC OSTEOMYELITIS W DRAINING SINUS, 12/31/2018 LIZZETTE OLSON ORE SMELTER Ot E11.69 TYPE 2 DIABETES MELLITUS WITH OTHER SPEC 12/31/2018 WESLEY, LIZZETTE R ORE SMELTER Ot M86.472 CHRONIC OSTEOMYELITIS W DRAINING SINUS, 01/01/2019 LIZZETTE OLSON R ORE SMELTER Ot E11.69 TYPE 2 DIABETES MELLITUS WITH OTHER SPEC 01/01/2019 LIZZETTE OLSON R ORE SMELTER Ot M86.472 CHRONIC OSTEOMYELITIS W DRAINING SINUS, 01/01/2019 LIZZETTE OLSON R ORE SMELTER Ot E11.69 TYPE 2 DIABETES MELLITUS WITH OTHER SPEC 01/01/2019 LIZZETTE OLSON ORE SMELTER Ot M86.472 CHRONIC OSTEOMYELITIS W DRAINING SINUS, 01/02/2019 LIZZETTE OLSON R ORE SMELTER Ot E11.69 TYPE 2 DIABETES MELLITUS WITH OTHER SPEC 01/02/2019 LIZZETTE OLSON R ORE SMELTER Ot M86.472 CHRONIC OSTEOMYELITIS W DRAINING SINUS, 01/02/2019 LIZZETTE OLSON R ORE SMELTER Ot E11.69 TYPE 2 DIABETES MELLITUS WITH OTHER SPEC 01/02/2019 LIZZETTE OLSON R ORE SMELTER Ot M86.472 CHRONIC OSTEOMYELITIS W DRAINING SINUS, 01/03/2019 LIZZETTE OLSON R ORE SMELTER Ot E11.69 TYPE 2 DIABETES MELLITUS WITH OTHER SPEC 01/03/2019 LIZZETTE OLSON R ORE SMELTER Ot M86.472 CHRONIC OSTEOMYELITIS W DRAINING SINUS, 01/04/2019 LIZZETTE OLSON R ORE SMELTER Ot E11.69 TYPE 2 DIABETES MELLITUS WITH OTHER SPEC 01/04/2019 LIZZETTE OLSON R ORE SMELTER Ot M86.472 CHRONIC OSTEOMYELITIS W DRAINING SINUS, 01/04/2019 LIZZETTE OLSON R ORE SMELTER Ot E11.69 TYPE 2 DIABETES MELLITUS WITH OTHER SPEC 01/04/2019 LIZZETTE OLSON R ORE SMELTER Ot M86.472 CHRONIC OSTEOMYELITIS W DRAINING SINUS, 01/04/2019 LIZZETTE OLSON ORE SMELTER Ot E11.69 TYPE 2 DIABETES MELLITUS WITH OTHER SPEC 01/04/2019 LIZZETTE OLSON R ORE SMELTER Ot M86.472 CHRONIC OSTEOMYELITIS W DRAINING SINUS, 01/05/2019 W[place]LEY LIZZETTE R ORE SMELTER Ot E11.69 TYPE 2 DIABETES MELLITUS WITH OTHER SPEC 01/05/2019 LIZZETTE OLSON R ORE SMELTER Ot M86.472 CHRONIC OSTEOMYELITIS W DRAINING SINUS, 01/05/2019 LIZZETTE OLSON R ORE SMELTER Ot E11.69 TYPE 2 DIABETES MELLITUS WITH OTHER SPEC 01/05/2019 LIZZETTE OLSON R ORE SMELTER Ot M86.472 CHRONIC OSTEOMYELITIS W DRAINING SINUS, 01/05/2019 LIZZETTE OLSON R ORE SMELTER Ot E11.69 TYPE 2 DIABETES MELLITUS WITH OTHER SPEC 01/05/2019 LIZZETTE OLSON ORE SMELTER Ot M86.472 CHRONIC OSTEOMYELITIS W DRAINING SINUS, 01/05/2019 LIZZETTE OLSON ORE SMELTER Ot E11.69 TYPE 2 DIABETES MELLITUS WITH OTHER SPEC 01/05/2019 LIZZETTE OLSON ORE SMELTER Ot M86.472 CHRONIC OSTEOMYELITIS W DRAINING SINUS, 01/06/2019 LIZZETTE OLSON ORE SMELTER Ot E11.69 TYPE 2 DIABETES MELLITUS WITH OTHER SPEC 01/06/2019 LIZZETTE OLSON ORE SMELTER Ot M86.472 CHRONIC OSTEOMYELITIS W DRAINING SINUS, 01/06/2019 LIZZETTE OLSON ORE SMELTER Ot E11.69 TYPE 2 DIABETES MELLITUS WITH OTHER SPEC 01/06/2019 LIZZETTE OLSON ORE SMELTER Ot M86.472 CHRONIC OSTEOMYELITIS W DRAINING SINUS, 01/06/2019 LIZZETTE OLSON ORE SMELTER Ot E11.69 TYPE 2 DIABETES MELLITUS WITH OTHER SPEC 01/06/2019 LIZZETTE OLSON ORE SMELTER Ot M86.472 CHRONIC OSTEOMYELITIS W DRAINING SINUS, 01/07/2019 LIZZETTE OLSON ORE SMELTER Ot E11.69 TYPE 2 DIABETES MELLITUS WITH OTHER SPEC 01/07/2019 LIZZETTE OLSON ORE SMELTER Ot M86.472 CHRONIC OSTEOMYELITIS W DRAINING SINUS, 01/07/2019 LIZZETTE OLSON ORE SMELTER Ot E11.69 TYPE 2 DIABETES MELLITUS WITH OTHER SPEC 01/07/2019 LIZZETTE OLSON ORE SMELTER Ot M86.472 CHRONIC OSTEOMYELITIS W DRAINING SINUS, 01/07/2019 LIZZETTE OLSON ORE SMELTER Ot E11.69 TYPE 2 DIABETES MELLITUS WITH OTHER SPEC 01/07/2019 LIZZETTE OLSON ORE SMELTER Ot M86.472 CHRONIC OSTEOMYELITIS W DRAINING SINUS, 01/08/2019 LIZZETTE OLSON ORE SMELTER Ot E11.69 TYPE 2 DIABETES MELLITUS WITH OTHER SPEC 01/08/2019 LIZZETTE OLSON ORE SMELTER Ot M86.472 CHRONIC OSTEOMYELITIS W DRAINING SINUS, 01/08/2019 LIZZETTE OLSON ORE SMELTER Ot E11.621 TYPE 2 DIABETES MELLITUS WITH FOOT ULCER 01/08/2019 LIZZETTE OLSON ORE SMELTER Ot L97.524 NON-PRS CHRONIC ULCER OTH PRT LEFT FOOT 01/08/2019 LIZZETTE OLSON ORE SMELTER Ot M86.472 CHRONIC OSTEOMYELITIS W DRAINING SINUS, 01/08/2019 LIZZETTE OLSON ORE SMELTER Ot Z72.0 TOBACCO USE 01/09/2019 LIZZETTE OLSON ORE SMELTER Ot E11.69 TYPE 2 DIABETES MELLITUS WITH OTHER SPEC 01/09/2019 LIZZETTE OLOSN ORE SMELTER Ot M86.472 CHRONIC OSTEOMYELITIS W DRAINING SINUS, 01/10/2019 LIZZETTE OLSON ORE SMELTER Ot E11.69 TYPE 2 DIABETES MELLITUS WITH OTHER SPEC 01/10/2019 LIZZETTE OLSON ORE SMELTER Ot M86.472 CHRONIC OSTEOMYELITIS W DRAINING SINUS, 01/11/2019 LIZZETTE OLSON ORE SMELTER Ot E11.69 TYPE 2 DIABETES MELLITUS WITH OTHER SPEC 01/11/2019 LIZZETTE OLSON R ORE SMELTER Ot M86.472 CHRONIC OSTEOMYELITIS W DRAINING SINUS, 01/11/2019 LIZZETTE OLSON ORE SMELTER Ot E11.69 TYPE 2 DIABETES MELLITUS WITH OTHER SPEC 01/11/2019 LIZZETTE OLSON ORE SMELTER Ot M86.472 CHRONIC OSTEOMYELITIS W DRAINING SINUS, 01/11/2019 LIZZETTE OLSON ORE SMELTER Ot E11.69 TYPE 2 DIABETES MELLITUS WITH OTHER SPEC 01/11/2019 LIZZETTE OLSON ORE SMELTER Ot M86.472 CHRONIC OSTEOMYELITIS W DRAINING SINUS, 01/12/2019 LIZZETTE OLSON ORE SMELTER Ot E11.69 TYPE 2 DIABETES MELLITUS WITH OTHER SPEC 01/12/2019 LIZZETTE OLSON ORE SMELTER Ot M86.472 CHRONIC OSTEOMYELITIS W DRAINING SINUS, 01/12/2019 LIZZETTE OLSON ORE SMELTER Ot E11.69 TYPE 2 DIABETES MELLITUS WITH OTHER SPEC 01/12/2019 LIZZETTE OLSON ORE SMELTER Ot M86.472 CHRONIC OSTEOMYELITIS W DRAINING SINUS, 01/12/2019 LIZZETTE OLSON ORE SMELTER Ot E11.621 TYPE 2 DIABETES MELLITUS WITH FOOT ULCER 01/12/2019 LIZZETTE OLSON ORE SMELTER Ot L97.524 NON-PRS CHRONIC ULCER OTH PRT LEFT FOOT 01/12/2019 LIZZETTE OLSON ORE SMELTER Ot M86.472 CHRONIC OSTEOMYELITIS W DRAINING SINUS, 01/12/2019 LIZZETTE OLSON ORE SMELTER Ot Z72.0 TOBACCO USE 01/12/2019 LIZZETTE OLSON ORE SMELTER Ot E11.69 TYPE 2 DIABETES MELLITUS WITH OTHER SPEC 01/12/2019 LIZZETTE OLSON ORE SMELTER Ot M86.472 CHRONIC OSTEOMYELITIS W DRAINING SINUS, 01/12/2019 LIZZETTE OLSON ORE SMELTER Ot E11.69 TYPE 2 DIABETES MELLITUS WITH OTHER SPEC 01/12/2019 LIZZETTE OLSON ORE SMELTER Ot M86.472 CHRONIC OSTEOMYELITIS W DRAINING SINUS, 01/13/2019 LIZZETTE OLSON ORE SMELTER Ot E11.69 TYPE 2 DIABETES MELLITUS WITH OTHER SPEC 01/13/2019 LIZZETTE OLSON ORE SMELTER Ot M86.472 CHRONIC OSTEOMYELITIS W DRAINING SINUS, 01/13/2019 LIZZETTE OLSON ORE SMELTER Ot E11.69 TYPE 2 DIABETES MELLITUS WITH OTHER SPEC 01/13/2019 LIZZETTE OLSON ORE SMELTER Ot M86.472 CHRONIC OSTEOMYELITIS W DRAINING SINUS, 01/14/2019 LIZZETTE OLSON ORE SMELTER Ot E11.69 TYPE 2 DIABETES MELLITUS WITH OTHER SPEC 01/14/2019 LIZZETTE OLSON R ORE SMELTER Ot M86.472 CHRONIC OSTEOMYELITIS W DRAINING SINUS, 01/14/2019 LIZZETTE OLSON ORE SMELTER Ot E11.69 TYPE 2 DIABETES MELLITUS WITH OTHER SPEC 01/14/2019 LIZZETTE OLSON ORE SMELTER Ot M86.472 CHRONIC OSTEOMYELITIS W DRAINING SINUS, 01/14/2019 LIZZETTE OLSON ORE SMELTER Ot E11.621 TYPE 2 DIABETES MELLITUS WITH FOOT ULCER 01/14/2019 LIZZETTE OLSON ORE SMELTER Ot L97.524 NON-PRS CHRONIC ULCER OTH PRT LEFT FOOT 01/14/2019 LIZZETTE OLSON ORE SMELTER Ot M86.472 CHRONIC OSTEOMYELITIS W DRAINING SINUS, 01/14/2019 LIZZETTE OLSON ORE SMELTER Ot Z72.0 TOBACCO USE 01/14/2019 LIZZETTE OLSON ORE SMELTER Ot E11.69 TYPE 2 DIABETES MELLITUS WITH OTHER SPEC 01/14/2019 LIZZETTE OLSON ORE SMELTER Ot M86.472 CHRONIC OSTEOMYELITIS W DRAINING SINUS, 01/14/2019 LIZZETTE OLSON ORE SMELTER Ot E11.69 TYPE 2 DIABETES MELLITUS WITH OTHER SPEC 01/14/2019 LIZZETTE OLSON ORE SMELTER Ot M86.472 CHRONIC OSTEOMYELITIS W DRAINING SINUS, 01/15/2019 LIZZETTE OLSON ORE SMELTER Ot E11.69 TYPE 2 DIABETES MELLITUS WITH OTHER SPEC 01/15/2019 LIZZETTE OLSON R ORE SMELTER Ot M86.472 CHRONIC OSTEOMYELITIS W DRAINING SINUS, 01/15/2019 LIZZETTE OLSON R ORE SMELTER Ot E11.69 TYPE 2 DIABETES MELLITUS WITH OTHER SPEC 01/15/2019 LIZZETTE OLSON ORE SMELTER Ot M86.472 CHRONIC OSTEOMYELITIS W DRAINING SINUS, 01/16/2019 LIZZETTE OLSON ORE SMELTER Ot E11.621 TYPE 2 DIABETES MELLITUS WITH FOOT ULCER 01/16/2019 LIZZETTE OLSON R ORE SMELTER Ot L97.524 NON-PRS CHRONIC ULCER OTH PRT LEFT FOOT 01/16/2019 LIZZETTE OLSON ORE SMELTER Ot M86.472 CHRONIC OSTEOMYELITIS W DRAINING SINUS, 01/16/2019 LIZZETTE OLSON ORE SMELTER Ot Z72.0 TOBACCO USE 01/17/2019 LIZZETTE OLSON ORE SMELTER Ot E11.69 TYPE 2 DIABETES MELLITUS WITH OTHER SPEC 01/17/2019 LIZZETTE OLSON R ORE SMELTER Ot M86.472 CHRONIC OSTEOMYELITIS W DRAINING SINUS, 01/18/2019 LIZZETTE OLSON R ORE SMELTER Ot E11.69 TYPE 2 DIABETES MELLITUS WITH OTHER SPEC 01/18/2019 LIZZETTE OLSON R ORE SMELTER Ot M86.472 CHRONIC OSTEOMYELITIS W DRAINING SINUS, 01/18/2019 LIZZETTE OLSON R ORE SMELTER Ot E11.69 TYPE 2 DIABETES MELLITUS WITH OTHER SPEC 01/18/2019 LIZZETTE OLSON ORE SMELTER Ot M86.472 CHRONIC OSTEOMYELITIS W DRAINING SINUS, 01/19/2019 LIZZETTE OLSON ORE SMELTER Ot E11.69 TYPE 2 DIABETES MELLITUS WITH OTHER SPEC 01/19/2019 LIZZETTE OLSON R ORE SMELTER Ot M86.472 CHRONIC OSTEOMYELITIS W DRAINING SINUS, 01/20/2019 LIZZETTE OLSON R ORE SMELTER Ot E11.69 TYPE 2 DIABETES MELLITUS WITH OTHER SPEC 01/20/2019 LIZZETTE OLSON R ORE SMELTER Ot M86.472 CHRONIC OSTEOMYELITIS W DRAINING SINUS, 01/20/2019 LIZZETTE OLSON R ORE SMELTER Ot E11.69 TYPE 2 DIABETES MELLITUS WITH OTHER SPEC 01/20/2019 LIZZETTE OLSON R ORE SMELTER Ot M86.472 CHRONIC OSTEOMYELITIS W DRAINING SINUS, 01/20/2019 [place] LIZZETTE R ORE SMELTER Ot E11.69 TYPE 2 DIABETES MELLITUS WITH OTHER SPEC 01/20/2019 LIZZETTE OLSON R ORE SMELTER Ot M86.472 CHRONIC OSTEOMYELITIS W DRAINING SINUS, 01/21/2019 LIZZETTE OLSON R ORE SMELTER Ot E11.69 TYPE 2 DIABETES MELLITUS WITH OTHER SPEC 01/21/2019 LIZZETTE OLSON R ORE SMELTER Ot M86.472 CHRONIC OSTEOMYELITIS W DRAINING SINUS, 01/21/2019 LIZZETTE OLSON ORE SMELTER Ot E11.69 TYPE 2 DIABETES MELLITUS WITH OTHER SPEC 01/21/2019 LIZZETTE OLSON R ORE SMELTER Ot M86.472 CHRONIC OSTEOMYELITIS W DRAINING SINUS, 01/21/2019 KIMBER STAPLES MD Ot E11.621 TYPE 2 DIABETES MELLITUS WITH FOOT ULCER 01/21/2019 KIMBER STAPLES MD, Ot E11.69 TYPE 2 DIABETES MELLITUS WITH OTHER SPEC 01/21/2019 KIMBER STAPLES MD, Ot L97.526 NON-PRS [facility] OTH PRT L FOOT WITH BNE 01/21/2019 KIMBER STAPLES MD, Ot M86.472 CHRONIC OSTEOMYELITIS W DRAINING SINUS, 01/21/2019 KIMBER STAPLES MD Ot Z72 .0 TOBACCO USE 01/21/2019 KIMBER STAPLES MD, Ot E11.69 TYPE 2 DIABETES MELLITUS WITH OTHER SPEC 01/21/2019 KIMBER STAPLES MD, Ot M86.472 CHRONIC OSTEOMYELITIS W DRAINING SINUS, 01/21/2019 LIZZETTE OLSON ORE SMELTER Ot E11.69 TYPE 2 DIABETES MELLITUS WITH OTHER SPEC 01/21/2019 LIZZETTE OLSON ORE SMELTER Ot M86.472 CHRONIC OSTEOMYELITIS W DRAINING SINUS, 01/22/2019 LIZZETTE OLSON ORE SMELTER Ot E11.69 TYPE 2 DIABETES MELLITUS WITH OTHER SPEC 01/22/2019 LIZZETTE OLSON ORE SMELTER Ot M86.472 CHRONIC OSTEOMYELITIS W DRAINING SINUS, 01/23/2019 LIZZETTE OLSON ORE SMELTER Ot E11.69 TYPE 2 DIABETES MELLITUS WITH OTHER SPEC 01/23/2019 LIZZETTE OLSON ORE SMELTER Ot M86.472 CHRONIC OSTEOMYELITIS W DRAINING SINUS, 01/24/2019 LIZZETTE OLSON ORE SMELTER Ot E11.69 TYPE 2 DIABETES MELLITUS WITH OTHER SPEC 01/24/2019 LIZZETTE OLSON ORE SMELTER Ot M86.472 CHRONIC OSTEOMYELITIS W DRAINING SINUS, 01/25/2019 LIZZETTE OLSON R ORE SMELTER Ot E11.69 TYPE 2 DIABETES MELLITUS WITH OTHER SPEC 01/25/2019 LIZZETTE OLSON ORE SMELTER Ot M86.472 CHRONIC OSTEOMYELITIS W DRAINING SINUS, 01/25/2019 LIZZETTE OLSON ORE SMELTER Ot E11.69 TYPE 2 DIABETES MELLITUS WITH OTHER SPEC 01/25/2019 LIZZETTE OLSON ORE SMELTER Ot M86.472 CHRONIC OSTEOMYELITIS W DRAINING SINUS, 01/26/2019 LIZZETTE OLSON ORE SMELTER Ot E11.621 TYPE 2 DIABETES MELLITUS WITH FOOT ULCER 01/26/2019 LIZZETTE OLSON ORE SMELTER Ot L97.524 NON-PRS CHRONIC [facility] OTH PRT LEFT FOOT 01/26/2019 LIZZETTE OLSON ORE SMELTER Ot M86.472 CHRONIC OSTEOMYELITIS W DRAINING SINUS, 01/26/2019 LIZZETTE OLSON ORE SMELTER Ot Z72.0 TOBACCO USE 01/30/2019 LIZZETTE OLSON ORE SMELTER Ot E11.69 TYPE 2 DIABETES MELLITUS WITH OTHER SPEC 01/30/2019 LIZZETTE OLSON ORE SMELTER Ot M86.472 CHRONIC OSTEOMYELITIS W DRAINING SINUS, 01/30/2019 LIZZETTE OLSON ORE SMELTER Ot E11.621 TYPE 2 DIABETES MELLITUS WITH FOOT ULCER 01/30/2019 LIZZETTE OLSON ORE SMELTER Ot L97.524 NON-PRS CHRONIC [facility] OTH PRT LEFT FOOT 01/30/2019 LIZZETTE OLSON ORE SMELTER Ot M86.472 CHRONIC OSTEOMYELITIS W DRAINING SINUS, 01/30/2019 LIZZETTE OLSON ORE SMELTER Ot Z72.0 TOBACCO USE 02/02/2019 KIMBER STAPLES MD Ot E11.621 TYPE 2 DIABETES MELLITUS WITH FOOT ULCER 02/02/2019 KIMBER STAPLES MD Ot E11.69 TYPE 2 DIABETES MELLITUS WITH OTHER SPEC 02/02/2019 KIMBER STAPLES MD Ot L97.526 NON-PRS [facility] OT PRT L FOOT WITH BNE 02/02/2019 KIMBER STAPLES MD Ot M86.472 CHRONIC OSTEOMYELITIS W DRAINING SINUS, 02/02/2019 KIMBER STAPLES MD Ot Z72 .0 TOBACCO USE 02/03/2019 LIZZETTE OLSON ORE SMELTER Ot E11.69 TYPE 2 DIABETES MELLITUS WITH OTHER SPEC 02/03/2019 LIZZETTE OLSON ORE SMELTER Ot M86.472 CHRONIC OSTEOMYELITIS W DRAINING SINUS, 02/03/2019 LIZZETTE OLSON ORE SMELTER Ot E11.69 TYPE 2 DIABETES MELLITUS WITH OTHER SPEC 02/03/2019 LIZZETTE OLSON ORE SMELTER Ot M86.472 CHRONIC OSTEOMYELITIS W DRAINING SINUS, 02/05/2019 LIZZETTE OLSON ORE SMELTER Ot E11.621 TYPE 2 DIABETES MELLITUS WITH FOOT ULCER 02/05/2019 LIZZETTE OLSON ORE SMELTER Ot L97.526 NON-PRS [facility] UL OTH PRT L FOOT WITH BNE 02/05/2019 LIZZETTE OLSON ORE SMELTER Ot M86.472 CHRONIC OSTEOMYELITIS W DRAINING SINUS, 02/05/2019 LIZZETTE OLSON ORE SMELTER Ot Z72.0 TOBACCO USE 02/05/2019 LIZZETTE OLSON ORE SMELTER Ot E11.621 TYPE 2 DIABETES MELLITUS WITH FOOT ULCER 02/05/2019 LIZZETTE OLSON ORE SMELTER Ot L97.526 NON-PRS [facility] OT PRT L FOOT WITH BNE 02/05/2019 LIZZETTE OLSON ORE SMELTER Ot M86.472 CHRONIC OSTEOMYELITIS W DRAINING SINUS, 02/05/2019 LIZZETTE OLSON ORE SMELTER Ot Z72.0 TOBACCO USE 02/05/2019 LIZZETTE OLSON ORE SMELTER Ot E11.621 TYPE 2 DIABETES MELLITUS WITH FOOT ULCER 02/05/2019 LIZZETTE OLSON ORE SMELTER Ot L97.526 NON-PRS [facility] PRT L FOOT WITH BNE 02/05/2019 LIZZETTE OLSON ORE SMELTER Ot M86.472 CHRONIC OSTEOMYELITIS W DRAINING SINUS, 02/05/2019 LIZZETTE OLSON ORE SMELTER Ot Z72.0 TOBACCO USE 02/12/2019 KIMBER STAPLES MD Ot E11.621 TYPE 2 DIABETES MELLITUS WITH FOOT ULCER 02/12/2019 KIMBER STAPLES MD Ot L97.526 NON-PRS [facility] PRT L FOOT WITH BNE 02/12/2019 KIMBER STAPLES MD Ot M86.472 CHRONIC OSTEOMYELITIS W DRAINING SINUS, 02/12/2019 KIMBER STAPLES MD Ot Z72 .0 TOBACCO USE 02/16/2019 KIMBER STAPLES MD Ot E11.621 TYPE 2 DIABETES MELLITUS WITH FOOT ULCER 02/16/2019 KIMBER STAPLES MD Ot L97.526 NON-PRS [facility] PRT L FOOT WITH BNE 02/16/2019 KIMBER [...] MD Ot G47.30 SLEEP APNEA, UNSPECIFIED 02/16/2019 ORNA ENRIQUE MD Ot H91.90 UNSPECIFIED HEARING LOSS, UNSPECIFIED EA 02/16/2019 RONA ENRIQUE MD Ot I10 ESSENTIAL (PRIMARY) HYPERTENSION 02/16/2019 RONA ENRIQUE MD Ot I25.10 ATHSCL HEART DISEASE OF [place] CORONARY 02/16/2019 RONA ENRIQUE MD Ot J44 [...] 02/16/2019 RONA ENRIQUE MD Ot Z79 .4 DIRECTOR OF MEDICARE (CURRENT) USE OF INSULIN 02/16/2019 RONA ENRIQUE [...] MD Ot I25.10 ATHSCL HEART DISEASE OF [place] CORONARY 02/16/2019 RONA ENRIQUE MD Ot J44 .9 CHRONIC OBSTRUCTIVE PULMONARY DISEASE, U 02/16/2019 RONA ENRIQUE MD Ot J84 .9 INTERSTITIAL PULMONARY DISEASE, UNSPECIF 02/16/2019 RONA ENRIQUE MD Ot K21 .9 GASTRO-ESOPHAGEAL REFLUX DISEASE WITHOUT 02/16/2019 RONA ENRIQUE MD Ot L03.032 CELLULITIS OF LEFT TOE 02/16/2019 RONA ENRIQUE MD Ot L97.524 NON-PRS [facility] OTH PRT LEFT FOOT 02/16/2019 RNOA ENRIQUE MD Ot M19.91 PRIMARY OSTEOARTHRITIS, UNSPECIFIED SITE 02/16/2019 RONA ENRIQUE MD Ot M79 .7 FIBROMYALGIA 02/16/2019 RONA ENRIQUE MD Ot M86 .9 OSTEOMYELITIS, UNSPECIFIED 02/16/2019 RONA ENRIQUE MD Ot Z77.29 CONTACT WITH AND EXPOSURE TO OTHER HAZAR 02/16/2019 RONA ENRIQUE MD Ot Z79 .4 HALFWAY (CURRENT) USE OF INSULIN 02/16/2019 RONA ENRIQUE [...] MD Ot I25.10 ATHSCL HEART DISEASE OF [place] CORONARY 02/17/2019 RONA ENRIQUE MD Ot J44 [...] 02/17/2019 RONA ENRIQUE MD Ot Z79 .4 HALFWAY (CURRENT) USE OF INSULIN 02/17/2019 RONA ENRIQUE [...] PERSONAL HISTORY OF SELF-HARM 02/20/2019 LIZZETTE OLSON ORE SMELTER Ot E11.621 TYPE 2 DIABETES MELLITUS WITH FOOT ULCER 02/20/2019 LIZZETTE OLSON ORE SMELTER Ot L97.526 NON-PRS [facility] OTH PRT L FOOT WITH BNE 02/20/2019 LIZZETTE OLSON ORE SMELTER Ot M86.472 CHRONIC OSTEOMYELITIS W DRAINING SINUS, 02/20/2019 LIZZETTE OLSON ORE SMELTER Ot Z72.0 TOBACCO USE 03/01/2019 ADITYA APODACA ORE SMELTER Ot G47.33 OBSTRUCTIVE SLEEP APNEA (ADULT) (PEDIATR 03/01/2019 ADITYA APODACA ORE SMELTER Ot J44.9 CHRONIC OBSTRUCTIVE PULMONARY DISEASE, U 03/01/2019 ADITYA APODACA ORE SMELTER Ot 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 DISEASE, UNSPECIF 03/01/2019 ADITYA APODACA ORE SMELTER Ot J98.4 OTHER DISORDERS OF LUNG 03/01/2019 ADITYA APODACA ORE SMELTER Ot M35.00 SICCA SYNDROME, UNSPECIFIED 03/01/2019 ADITYA APODACA ORE SMELTER Ot R91.8 OTHER NONSPECIFIC ABNORMAL FINDING OF DEL 03/03/2019 ADITYA APODACA ORE SMELTER Ot G47.33 OBSTRUCTIVE SLEEP APNEA (ADULT) (PEDIATR 03/03/2019 ADITYA APODACA ORE SMELTER Ot J44.9 CHRONIC OBSTRUCTIVE PULMONARY DISEASE, U 03/03/2019 ADITYA APODACA ORE SMELTER Ot 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 DISEASE, UNSPECIF 03/03/2019 ADITYA APODACA ORE SMELTER Ot J98.4 OTHER DISORDERS OF LUNG 03/03/2019 ADITYA APODACA APRN Ot M35.00 SICCA SYNDROME, UNSPECIFIED 03/03/2019 ADITYA APODACA APRN Ot R91.8 OTHER NONSPECIFIC ABNORMAL FINDING OF DEL 03/07/2019 KIMBER STAPLES MD, Ot E11.621 TYPE 2 DIABETES MELLITUS WITH FOOT ULCER 03/07/2019 KIMBER STAPLES MD, Ot L97.526 NON-PRS [facility] OTH PRT L FOOT WITH BNE 03/07/2019 [...] SHANNON Ot I25.10 ATHSCL HEART DISEASE OF [place] CORONARY 03/14/2019 MICHAEL LAGUNA SHANNON Ot I44.7 [...] PERS 03/14/2019 SHANNON RODRIGUEZ DO Ot Z79.4 DIRECTOR OF MEDICARE (CURRENT) USE OF INSULIN 03/14/2019 SHANNON RODRIGUEZ [...] PRT L FOOT NGUYEN 03/24/2019 LIZZETTE OLSON ORE SMELTER Ot M86.472 CHRONIC OSTEOMYELITIS W DRAINING SINUS, 03/24/2019 LIZZETTE OLSON ORE SMELTER Ot E11.621 TYPE 2 DIABETES MELLITUS WITH FOOT ULCER 03/24/2019 LIZZETTE OLSON ORE SMELTER Ot L97.521 NON-PRS CHRONIC [facility] OTH PRT L FOOT NGUYEN 03/24/2019 LIZZETTE OLSON ORE SMELTER Ot M86.472 CHRONIC OSTEOMYELITIS W DRAINING SINUS, 03/24/2019 LIZZETTE OLSON ORE SMELTER Ot S92.512A DISP FX OF PROXIMAL PHALAN[place] OF LEFT LESS 03/24/2019 LIZZETTE OLSON ORE SMELTER Ot Z89.412 ACQUIRED ABSENCE OF LEFT GREAT [...] SLEEP APNEA (ADULT) (PEDIATR 06/30/2019 ADITYA APODACA ORE SMELTER Ot J44.9 CHRONIC OBSTRUCTIVE PULMONARY DISEASE, U 06/30/2019 ADITYA APODACA ORE SMELTER Ot 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 DISEASE, UNSPECIF 06/30/2019 ADITYA APODACA ORE SMELTER Ot M35.00 SICCA SYNDROME, UNSPECIFIED 06/30/2019 ADITYA APODACA ORE SMELTER Ot R91.1 SOLITARY PULMONARY NODULE 06/30/2019 ADITYA APODACA APRN Ot Z72.0 TOBACCO USE 07/02/2019 ADITYA APODACA ORE SMELTER Ot G47.33 OBSTRUCTIVE SLEEP APNEA (ADULT) (PEDIATR 07/02/2019 ADITYA APODACA ORE SMELTER Ot J44.9 CHRONIC OBSTRUCTIVE PULMONARY DISEASE, U 07/02/2019 ADITYA APODACA ORE SMELTER Ot 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 DISEASE, UNSPECIF 07/02/2019 ADITYA APODACA ORE SMELTER Ot M35.00 SICCA SYNDROME, UNSPECIFIED 07/02/2019 ADITYA APODACA ORE SMELTER Ot R91.1 SOLITARY PULMONARY NODULE 07/02/2019 ADITYA APODACA ORE SMELTER Ot Z72.0 TOBACCO USE 07/06/2019 ALICIA WALLIS, [...] INTERSTITIAL PULMONARY DISEASE, UNSPECIF 07/08/2019 ADITYA APODACA ORE SMELTER Ot M35.00 SICCA SYNDROME, UNSPECIFIED 07/08/2019 ADITYA [...] Ot I51. 89 OTHER ILL-DEFINED HEART DISEASES 08/03/2019 JULIET RODRIGUEZ MD Ot Z79 .2 HALFWAY (CURRENT) USE OF ANTIBIOTICS 08/06/2019 JULIET RODRIGUEZ MD Ot Z79 .2 DIRECTOR OF MEDICARE (CURRENT) USE OF ANTIBIOTICS 08/17/2019 WYNN DO, RAN L Ot E11.4 0 TYPE 2 DIABETES MELLITUS WITH DIABETIC N 08/17/2019 WYNN DO, RAN L Ot E11.6 21 TYPE 2 DIABETES MELLITUS WITH FOOT ULCER 08/17/2019 WYNN DO, RAN L Ot E11.6 9 TYPE 2 DIABETES MELLITUS WITH OTHER SPEC 08/17/2019 WYNN DO, RAN L Ot E78.0 0 PURE HYPERCHOLESTEROLEMIA, UNSPECIFIED 08/17/2019 WYNN DO, RAN L Ot F32.9 MAJOR DEPRESSIVE DISORDER, SINGLE EPISOD 08/17/2019 WYNN DO, RAN L Ot F41.9 ANXIETY DISORDER, UNSPECIFIED 08/17/2019 WYNN DO, RAN L Ot I10 ESSENTIAL (PRIMARY) HYPERTENSION 08/17/2019 WYNN DO, RAN L Ot I25.1 0 ATHSCL HEART DISEASE OF [place] CORONARY 08/17/2019 WYNN DO, RAN L Ot J18.9 PNEUMONIA, UNSPECIFIED ORGANISM 08/17/2019 WYNN DO, RAN L Ot J44.9 CHRONIC OBSTRUCTIVE PULMONARY DISEASE, U 08/17/2019 WYNN DO, RAN L Ot K21.9 GASTRO-ESOPHAGEAL REFLUX DISEASE WITHOUT 08/17/2019 WYNN DO, RAN L Ot M79.7 FIBROMYALGIA 08/17/2019 WYNN DO, RAN L Ot M86.9 OSTEOMYELITIS, UNSPECIFIED 08/17/2019 WYNN DO, RAN L Ot R04.2 HEMOPTYSIS 08/17/2019 WYNN DO, RAN L Ot R94.2 ABNORMAL RESULTS OF PULMONARY FUNCTION S 08/17/2019 WYNN DO, RAN L Ot Z79.4 DIRECTOR OF MEDICARE (CURRENT) USE OF INSULIN 08/17/2019 WYNN DO, RAN L Ot Z80.0 FAMILY HISTORY OF MALIGNANT NEOPLASM OF 08/17/2019 WYNN DO, RAN L Ot Z86.0 10 PERSONAL HISTORY OF COLONIC POLYPS 08/17/2019 WYNN DO, RAN L Ot Z86.7 3 PRSNL HX OF TIA (TIA), AND CEREB INFRC W 08/17/2019 WYNN DO, RAN L Ot Z87.8 91 PERSONAL HISTORY OF NICOTINE DEPENDENCE 08/17/2019 WYNN DO, RAN L Ot Z88.1 ALLERGY STATUS TO OTHER ANTIBIOTIC AGENT 08/17/2019 WYNN DO, RAN L Ot 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 08/17/2019 WYNN DO, RAN L Ot Z99.8 1 DEPENDENCE ON SUPPLEMENTAL OXYGEN 08/18/2019 ADITYA APODACA APRN Ot F17.201 NICOTINE [...] Ot I25.1 0 ATHSCL HEART DISEASE OF [place] CORONARY 08/22/2019 WYNN DO, RAN L Ot [...] 08/22/2019 WYNN DO, RAN L Ot Z79.4 DIRECTOR OF MEDICARE (CURRENT) USE OF INSULIN 08/22/2019 WYNN DO, [...] Ot I25.1 0 ATHSCL HEART DISEASE OF [place] CORONARY 08/24/2019 WYNN DO, RAN L Ot [...] 08/24/2019 WYNN DO, RAN L Ot Z79.4 HALFWAY (CURRENT) USE OF INSULIN 08/24/2019 WYNN DO, [...] ALLERGY STATUS TO OTHER ANTIBIOTIC AGENT 08/24/2019 WYNN DO, RAN L Ot 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 08/24/2019 WYNN DO, RAN L Ot Z99.8 1 DEPENDENCE ON SUPPLEMENTAL OXYGEN 08/24/2019 ADITYA APODACA ORE SMELTER Ot J06.9 ACUTE UPPER RESPIRATORY INFECTION, UNSPE 08/24/2019 ADITYA APODACA ORE SMELTER Ot R91.1 SOLITARY PULMONARY NODULE 08/31/2019 ADITYA APODACA ORE SMELTER Ot J44.9 CHRONIC OBSTRUCTIVE PULMONARY DISEASE, U 08/31/2019 ADITYA APODACA ORE SMELTER Ot 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 DISEASE, UNSPECIF 08/31/2019 ADITYA APODACA ORE SMELTER Ot R91.1 SOLITARY PULMONARY NODULE 08/31/2019 ADITYA APODACA ORE SMELTER Ot J44.9 CHRONIC OBSTRUCTIVE PULMONARY DISEASE, U 08/31/2019 ADITYA APODACA ORE SMELTER Ot 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 DISEASE, UNSPECIF 08/31/2019 ADITYA APODACA ORE SMELTER Ot R91.1 SOLITARY PULMONARY NODULE 08/31/2019 ADITYA APODACA ORE SMELTER Ot F17.201 NICOTINE DEPENDENCE, UNSPECIFIED, IN REM 08/31/2019 ADITYA APODACA ORE SMELTER Ot J06.9 ACUTE UPPER RESPIRATORY INFECTION, UNSPE 08/31/2019 ADITYA APODACA ORE SMELTER Ot J44.9 CHRONIC OBSTRUCTIVE PULMONARY DISEASE, U 08/31/2019 ADITYA APODACA ORE SMELTER Ot R09.02 HYPOXEMIA 09/10/2019 ADITYA APODACA ORE SMELTER Ot J44.9 CHRONIC OBSTRUCTIVE PULMONARY DISEASE, U 09/10/2019 ADITYA APODACA ORE SMELTER Ot 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 DISEASE, UNSPECIF 09/10/2019 LEEANN APODACAINE Nisha ORE SMELTER Ot R91.1 SOLITARY PULMONARY NODULE 09/23/2019 ADITYA APODACA ORE SMELTER Ot J44.9 CHRONIC OBSTRUCTIVE PULMONARY DISEASE, U 09/23/2019 ADITYA APODACA ORE SMELTER Ot 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 DISEASE, UNSPECIF 09/23/2019 ADITYA APODACA ORE SMELTER Ot R91.1 SOLITARY PULMONARY NODULE 09/23/2019 ADITYA APODACA ORE SMELTER Ot R91.8 OTHER NONSPECIFIC ABNORMAL FINDING OF DEL 09/23/2019 ADITYA APODACA ORE SMELTER Ot R70.1 ABNORMAL PLASMA VISCOSITY 09/23/2019 ADITYA APODACA ORE SMELTER Ot R79.1 ABNORMAL COAGULATION PROFILE 09/23/2019 ADITYA APODACA ORE SMELTER Ot R70.1 ABNORMAL PLASMA VISCOSITY 09/23/2019 LEEANN APODACAINE E ORE SMELTER Ot R79.1 ABNORMAL COAGULATION PROFILE 09/23/2019 ADITYA APODACA ORE SMELTER Ot 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 09/23/2019 ADITYA APODACA ORE SMELTER Ot R20.0 ANESTHESIA OF SKIN 09/23/2019 LEEANN APODACAINE Nisha ORE SMELTER Ot R41.3 OTHER AMNESIA 09/23/2019 LEEANN APODACAINE Nisha ORE SMELTER Ot R91.8 OTHER NONSPECIFIC ABNORMAL FINDING OF DEL 09/23/2019 ADITYA APODACA ORE SMELTER Ot R70.1 ABNORMAL PLASMA VISCOSITY 09/23/2019 ADITYA APODACA ORE SMELTER Ot R79.1 ABNORMAL COAGULATION PROFILE 09/29/2019 ADITYA APODACA ORE SMELTER Ot 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 2 DISSEM MYCOBACTERIUM AVIUM-INTRACELLULAR 10/08/2019 BRENDON PLUNKETT DO Ot R06. 00 DYSPNEA, UNSPECIFIED 10/08/2019 BRENDON PLUNKETT DO Ot R09. 02 HYPOXEMIA 10/14/2019 ADITYA APODACA ORE SMELTER Ot C34.92 MALIGNANT NEOPLASM OF [place]SP PART OF LEFT 10/14/2019 ADITYA APODACA ORE SMELTER Ot J44.9 CHRONIC OBSTRUCTIVE PULMONARY DISEASE, U 10/14/2019 ADITYA APODACA ORE SMELTER Ot 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 DISEASE, UNSPECIF 10/14/2019 LEEANN APODACAINE Nisha ORE SMELTER Ot R91.8 OTHER NONSPECIFIC ABNORMAL FINDING OF DEL 10/14/2019 ADITYA APODACA ORE SMELTER Ot R94.2 ABNORMAL RESULTS OF PULMONARY FUNCTION S 10/16/2019 ADITYA APODACA ORE SMELTER Ot J44.9 CHRONIC OBSTRUCTIVE PULMONARY DISEASE, U 10/16/2019 ADITYA APODACA ORE SMELTER Ot 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 DISEASE, UNSPECIF 10/16/2019 ADITYA APODACA ORE SMELTER Ot R91.1 SOLITARY PULMONARY NODULE 10/16/2019 LEEANN APODACAINE Nisha ORE SMELTER Ot R91.8 OTHER NONSPECIFIC ABNORMAL FINDING OF DEL 10/19/2019 NONI CAMPBELL MD Ot M86.9 OSTEOMYELITIS, UNSPECIFIED 10/19/2019 LEEANN APODACAINE Nisha ORE SMELTER Ot C34.92 MALIGNANT NEOPLASM OF [place] PART OF LEFT 10/19/2019 ADITYA APODACA APRN Ot J44.9 CHRONIC OBSTRUCTIVE PULMONARY DISEASE, U 10/19/2019 ADITYA APODACA APRN Ot 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 DISEASE, UNSPECIF 10/19/2019 ADITYA APODACA ORE SMELTER Ot R91.8 OTHER NONSPECIFIC ABNORMAL FINDING OF DEL 10/19/2019 ADITYA APODACA APRN Ot R94.2 ABNORMAL RESULTS OF PULMONARY FUNCTION S 11/04/2019 BRENDON PLUNKETT DO Ot A31. 2 DISSEM MYCOBACTERIUM AVIUM-INTRACELLULAR 11/04/2019 BRENDON PLUNKETT DO Ot R06. 00 DYSPNEA, UNSPECIFIED 11/04/2019 BRENDON PLUNKETT DO Ot R09. 02 HYPOXEMIA 11/04/2019 SHANTANU SCHUMACHER MD Ot C34. 92 MALIGNANT NEOPLASM OF [place] PART OF LEFT 11/04/2019 SHANTANU SCHUMACHER MD Ot J44. 9 CHRONIC OBSTRUCTIVE PULMONARY DISEASE, U 11/06/2019 ADITYA APODACA APRN Ot C34.92 MALIGNANT NEOPLASM OF [place] PART OF LEFT 11/06/2019 ADITYA APODACA APRN Ot J44.9 CHRONIC OBSTRUCTIVE PULMONARY DISEASE, U 11/06/2019 ADITYA APODACA ORE SMELTER Ot 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 DISEASE, UNSPECIF 11/06/2019 ADITYA APODACA ORE SMELTER Ot R91.8 OTHER NONSPECIFIC ABNORMAL FINDING OF DEL 11/06/2019 CONSTANZAADITYA Nisha ORE SMELTER Ot R94.2 ABNORMAL RESULTS OF PULMONARY FUNCTION S 12/12/2019 SELMA FELIX ORE SMELTER Ot M79.672 PAIN IN LEFT FOOT 12/15/2019 SELMA FELIX ORE SMELTER Ot M79.672 PAIN IN LEFT FOOT 12/17/2019 KIARRA LAGUNA BRENDON M Ot A31. 2 DISSEM MYCOBACTERIUM AVIUM-INTRACELLULAR 12/17/2019 KIARRA BRENDON M Ot R06. 00 DYSPNEA, UNSPECIFIED 12/17/2019 KIARRA LAGUNA, BRENDON M Ot R09. 02 HYPOXEMIA 12/21/2019 SELMA FELIX ORE SMELTER Ot M79.672 PAIN IN LEFT FOOT 12/23/2019 KIARRA LAGUNA, BRENDON M Ot A31. 2 DISSEM MYCOBACTERIUM AVIUM-INTRACELLULAR 12/23/2019 KIARRA , BRENDON M Ot R06. 00 DYSPNEA, UNSPECIFIED 12/23/2019 KIARRA BRENDON Russell Ot R09. 02 HYPOXEMIA Procedures Code Description Performed By Per arianna On 37.23 RT/L EFT HEART CARD CATH 12/27/2007 88.53 LT H EART ANGIOCARDIOGRAM 12/27/2007 88.56 JONO GABE ARTERIOGR-2 CATH 12/27/2007 79271 A1C (IN-HOUSE) 08/15/2012 69769 URIN E DRUG SCREEN (IN-HOUSE) 08/22/2012 82479 URIN E DRUG SCREEN (IN-HOUSE) 09/05/2012 39280 ROUT INE VENIPUNCTURE 09/08/2012 00023 CBC 09/08/2012 12332 LIPI D PANEL 09/09/2012 24121 CMP 09/09/2012 [id number] GF R CALC (RESULT ONLY) 09/09/2012 21496 TSH 09/09/2012 32507 URIN E DRUG SCREEN (IN-HOUSE) 09/22/2012 22615 ROUT INE VENIPUNCTURE 10/08/2012 95528 CBC 10/08/2012 URINEDRUG URINE DRUG SCREEN (CON'F) 10/09/2012 73481 XRAY CHEST 2 VIEW 10/29/2012 16461 MYELOGRAM 10/29/2012 33316 PSYC H DIAGNOSTIC EVALUATION 10/29/2012 20561 PULM ONARY FUNCTION TEST (IN- HOUSE) 10/29/2012 45337 URIN E FENTANYL 10/31/2012 61416 SPIR OMETRY 11/27/2012 46219 BRON CHODILATION PRE/POST 11/27/2012 81396 RESP IRATORY FLOW VOLUME LOOP 11/27/2012 02503 A1C (IN-HOUSE) 12/01/2012 67034 URIN E DRUG SCREEN (IN-HOUSE) 12/01/2012 91777 PSYT X PT&/FAMILY 45 MINUTES 12/02/2012 94781 LEIDY URE BLOOD OXYGEN LEVEL 12/03/2012 01844 PSYT X PT&/FAMILY 45 MINUTES 01/08/2013 86154 PSYT X PT&/FAMILY 45 MINUTES 01/20/2013 54545 URIN E DRUG SCREEN (IN-HOUSE) 02/26/2013 27432 SLEE P STUDY 03/03/2013 47842 OXIMETRY 05/01/2013 65018 ECHO 2D 05/05/2013 94.65 DRUG DETOXIFICATION 05/31/2013 13839 A1C (IN-HOUSE) 07/08/2013 37.22 LEFT HEART CARDIAC CATH 10/05/2013 88.53 LT H EART ANGIOCARDIOGRAM 10/05/2013 88.56 JONO GABE ARTERIOGR-2 CATH 10/05/2013 71731 A1C (IN-HOUSE) 10/23/2013 PULMONARY BRENDON PLUNKETT 10/23/2013 15766 ROUT INE VENIPUNCTURE 12/17/2013 48326 CMP 12/17/2013 61671 URIC ACID 12/17/2013 25699 XRAY TOE(S) RIGHT MIN 2 VIEWS 12/31/2013 PODIATRY W SARAH FUCHS 12/31/2013 PHYSICAL W [facility]UN[facility], [facility] 02/01/2014 60634 A1C (IN-HOUSE) 02/01/2014 72696 CULT URE WOUND (AEROBIC) 02/04/2014 50146 OXIMETRY 02/09/2014 64503 DEBR KIYA SKIN FULL 03/05/2014 75277 PSYC H DIAGNOSTIC EVALUATION 03/12/2014 70623 PSYT X PT&/FAMILY 45 MINUTES 03/30/2014 12592 MICR O ALBUMIN-IN HOUSE 05/12/2014 02614 A1C (IN-HOUSE) 05/12/2014 39057 ROUT INE VENIPUNCTURE 06/22/2014 26006 GLUC OSE FINGER STICK 06/22/2014 06490 UA L DIONICIO DIP 06/22/2014 83623 CBC 06/22/2014 60332 CMP 06/22/20142150392 GF R CALC (RESULT ONLY) 06/22/2014 45235 GLUC OSE FINGER STICK 06/23/2014 GENERAL S RAJPUT, ALISIA 06/29/2014 25034 ROUT INE VENIPUNCTURE 06/30/2014 97473 CBC 06/30/20144616184 GF R CALC (RESULT ONLY) 06/30/2014 90412 BMP 06/30/2014 44907 MRI SPINE (LUMBAR) W/O CONTRAST 12/16/2014 [id number] DE TACHMENT AT LEFT 1ST TOE, COMPLETE, [...] NRG Blood erythrocyte morphology finding identification NORMAL NR Comprehensive metabolic panel - 11/08/16 16:40 Serum [...] NRG Manual blood basophils/100 leukocytes 2 % NR Blood erythrocyte morphology finding identification NORMAL NR Serum or plasma lithium measurement (mol es/volume) [...] - 08/05/17 17:00 QUANTITY OF GROWTH Isolated [facility] Bacterial blood culture [id number] [facility] Bacterial blood culture - 08/05/17 17:08 Bacterial [...] 09:09 Bacteria identification in wound by culture [id number] 05 NRG FREE TEXT EXTERNAL ID REPORTED 07/18/19 15:05 NRG QUANTITY OF GROWTH Rare NRG FREE TEXT ENTRY 2 SENSITIVITY REPORTED 07/20/18 10: 06 NRG FREE TEXT ENTRY 3 CLINDAMYCIN RESISTANT WITHOUT IN DUCTION NRG RML Sensitivity Panel - 07/15/18 09:09 [...] 15:08 Bacteria identification in wound by culture [id number] 01 NRG FREE TEXT EXTERNAL ID REPORTED 07/22/18 17:05 NRG QUANTITY OF GROWTH Rare NRG FREE TEXT ENTRY 2 SUSCEPTIBILITY REPORTED 8, 1405 NRG [facility] Sensitivity Panel - 07/21/18 15:08 Oxacillin [...] Rare NRG C FUNGUS SPUTUM FLUID TISSUE [id number] N RG Sputum Gram stain - 07/23/18 [...] in bronchial specimen by aerob e culture [id number] NRG FTX;REPORTABLE 500 CFU/ML NRG FREE TEXT [...] in bronchial specimen by aerob e culture [id number] NRG FTX;REPORTABLE 100 CFU/ML NRG FREE TEXT ENTRY 2 3735; ID REPORTED 08/14/18 15:05 NRG RML Sensitivity Panel - 08/13/18 08:51 Gentamicin susceptibility [...] 5 NRG C FUNGUS SPUTUM FLUID TISSUE [id number] N RG Mycobacterium species detection by organ [...] 10:18 Bacteria identification in wound by culture [id number] 01 NRG FREE TEXT EXTERNAL ID REPORTED 10/01/18 16:05 NRG QUANTITY OF GROWTH Rare NRG FREE TEXT ENTRY 2 SUSCEPTIBILTY REPORTED 10-03-2018 , 0806 NRG RML Sensitivity Panel - 09/30/18 10:18 Oxacillin susceptibility [...] 10:20 Bacteria identification in wound by culture 585754 000 NRG FREE TEXT EXTERNAL SENSITIVITY RECEIVED [...] , 5. NRG QUANTITY OF GROWTH . NRG FREE TEXT ENTRY 2 ID REPORTED 12/10/18 [...] 09:11 Bacteria identification in wound by culture [id number] NRG FREE TEXT EXTERNAL FROM [employer] ONLY NRG QUANTITY OF GROWTH Isolated NRG FREE TEXT ENTRY 2 SUSCEPTIBILITY REPORTED 02-02-19904. [facility] Sensitivity Panel - 01/27/19 09:11 Oxacillin [...] minimum inhibitory concentration 2 NRG Minocycline susc ARMNIDA <= NRG Complete blood count (CBC) with [...] 18:18 Bacteria identification in wound by culture [id number] NRG FREE TEXT EXTERNAL NO BETA [...] lactic acid measurement (moles/volume) 2.31 mmol/L 0.50-2.00 Complete blood count (CBC) with automate d white blood cell (WBC) differential - 09/18/19 16:05 Blood leukocytes automated count (number/volume) 10.1 10*3/uL 4.3-11.0 Blood erythrocytes automated count (number/volume) 4.74 10*6/uL 4.35-5.85 Venous blood hemoglobin measurement (mass/volume) 13.3 g/dL 13.3-17.7 Blood hematocrit (volume fraction) 39 % 40-54 Automated erythrocyte mean corpuscular volume 83 [ foz_us] 80-99 Automated erythrocyte mean corpuscular h emoglobin (mass per erythrocyte) 28 pg 25-34 Automated erythrocyte mean corpuscular h emoglobin concentration measurement (mass/volume) 34 g/dL 32-36 Automated erythrocyte distribution width ratio 14. 6 % 10.0- 14.5 Automated blood platelet count (count/volume) 193 10*3/uL 130-400 Automated blood platelet mean volume measurement 11.2 [foz_us] 7.4-10.4 Automated blood neutrophils/100 leukocytes 62 % 42-75 Automated blood lymphocytes/100 leukocytes 28 % 12-44 Blood monocytes/100 leukocytes 7 % 0-12 Automated blood eosinophils/100 leukocytes 3 % 0-10 Automated blood basophils/100 leukocytes 1 % 0-10 Blood neutrophils automated count (number/volume) 6.2 10*3 1.8-7.8 Blood lymphocytes automated count (number/volume) 2.8 10*3 1.0-4.0 Blood monocytes automated count (number/volume) 0. 7 10*3 0.0-1.0 Automated eosinophil count 0.3 10*3/uL 0 .0-0.3 Automated blood basophil count (count/volume) 0.1 10*3/uL 0.0-0.1 Whole blood basic metabolic panel - 12/03 16:05 Serum or plasma sodium measurement (moles/volume) 132 mmol/L 135-145 Serum or plasma potassium measurement (moles/volume) 4.2 mmol/L 3.6-5.0 Serum or plasma chloride measurement (moles/volume) 102 mmol/L 98-107 Carbon dioxide 19 mmol/L 21-32 Serum or plasma anion gap determination (moles/volume) 11 mmol/L 5-14 Serum or plasma urea nitrogen measurement (mass/volume ) 9 mg/dL 7-18 Serum or plasma creatinine measurement (mass/volume) 0.76 mg/dL 0.60-1.30 Serum or plasma urea nitrogen/creatinine mass ratio 12 NRG Serum or plasma creatinine measurement w ith calculation of estimated glomerular filtration rate > NRG Serum or plasma glucose measurement (mass/volume) 272 mg/dL 70-105 Serum or plasma calcium measurement (mass/volume) 8.7 mg/dL 8.5-10.1 Trough amikacin level - 09/18/19 16:05 Trough amikacin level Complete NRG Serum or plasma peak amikacin level (mas s/volume) - 09/18/19 16:05 Serum or plasma peak amikacin level (mass/volume) 38.7 ug/mL NRG Trough amikacin level - 09/18/19 16:05 Trough amikacin level 2 HR LEVEL NRG Trough amikacin level - 09/18/19 20:19 Trough amikacin level Complete NRG Serum or plasma peak amikacin level (mas s/volume) - 09/18/19 20:19 Serum or plasma peak amikacin level (mass/volume) 10.5 ug/mL NRG Trough amikacin level - 09/18/19 20:19 Trough amikacin level RANDOM NRG Trough amikacin level - 09/19/19 13:05 Trough amikacin level Complete NRG Serum or plasma peak amikacin level (mas s/volume) - 09/19/19 13:05 Serum or plasma peak amikacin level (mass/volume) < NRG Trough amikacin level - 09/19/19 13:05 Trough amikacin level Random NRG Automated blood complete blood count (he mogram) panel - 09/23/19 10:15 Blood leukocytes automated count (number/volume) 12.2 10*3/uL 4.3-11.0 Blood erythrocytes automated count (number/volume) 5.28 10*6/uL 4.35-5.85 Venous blood hemoglobin measurement (mass/volume) 14.8 g/dL 13.3-17.7 Blood hematocrit (volume fraction) 44 % 40-54 Automated erythrocyte mean corpuscular volume 82 [ foz_us] 80-99 Automated erythrocyte mean corpuscular h emoglobin (mass per erythrocyte) 28 pg 25-34 Automated erythrocyte mean corpuscular h emoglobin concentration measurement (mass/volume) 34 g/dL 32-36 Automated erythrocyte distribution width ratio 14. 5 % 10.0- 14.5 Automated blood platelet count (count/volume) 251 10*3/uL 130-400 Automated blood platelet mean volume measurement 11.2 [foz_us] 7.4-10.4 PT panel in platelet poor plasma by coag ulation assay - 09/23/19 10:15 Prothrombin time (PT) in platelet poor plasma by coagu lation assay 13.8 s 12.2-14.7 INR in platelet poor plasma or blood by coagulation as say 1.0 0.8-1.4 Activated partial thromboplastin time (a PTT) in platelet poor plasma bycoagulation assay - 09/23/19 10:15 Activated partial thromboplastin time (a PTT) in platelet poor plasma bycoagulation assay 30 s 24-35 Automated blood complete blood count (he mogram) panel - 12/11/19 14:10 Blood leukocytes automated count (number/volume) 7.6 10*3/uL 4.3-11.0 Blood erythrocytes automated count (number/volume) 4.53 10*6/uL 4.35-5.85 Venous blood hemoglobin measurement (mass/volume) 12.6 g/dL 13.3-17.7 Blood hematocrit (volume fraction) 37 % 40-54 Automated erythrocyte mean corpuscular volume 83 [ foz_us] 80-99 Automated erythrocyte mean corpuscular h emoglobin (mass per erythrocyte) 28 pg 25-34 Automated erythrocyte mean corpuscular h emoglobin concentration measurement (mass/volume) 34 g/dL 32-36 Automated erythrocyte distribution width ratio 14. 5 % 10.0- 14.5 Automated blood platelet count (count/volume) 168 10*3/uL 130-400 Automated blood platelet mean volume measurement 10.4 [foz_us] 7.4-10.4 Comprehensive metabolic panel - 12/11/19 14:10 Serum or plasma sodium measurement (moles/volume) 128 mmol/L 135-145 Serum or plasma potassium measurement (moles/volume) 4.2 mmol/L 3.6-5.0 Serum or plasma chloride measurement (moles/volume) 98 mmol/L 98-107 Carbon dioxide 18 mmol/L 21-32 Serum or plasma anion gap determination (moles/volume) 12 mmol/L 5-14 Serum or plasma urea nitrogen measurement (mass/volume ) 12 mg/dL 7-18 Serum or plasma creatinine measurement (mass/volume) 1.18 mg/dL 0.60-1.30 Serum or plasma urea nitrogen/creatinine mass ratio 10 NRG Serum or plasma creatinine measurement w ith calculation of estimated glomerular filtration rate > NRG Serum or plasma glucose measurement (mass/volume) 474 mg/dL 70-105 Serum or plasma calcium measurement (mass/volume) 8.9 mg/dL 8.5-10.1 Serum or plasma total bilirubin measurement (mass/volu me) 0.4 mg/dL 0.1-1.0 Serum or plasma alkaline phosphatase demi surement (enzymatic activity/volume) 88 U/L 40-136 Serum or plasma aspartate aminotransfera se measurement (enzymatic activity/volume) 13 U/L 5-34 Serum or plasma alanine aminotransferase measurement (enzymatic activity/volume) 15 U/L 0-55 Serum or plasma protein measurement (mass/volume) 7.2 g/dL 6.4-8.2 Serum or plasma albumin measurement (mass/volume) 4.2 g/dL 3.2-4.5 CALCIUM CORRECTED 8.7 mg/dL 8.5-10.1 Encounters ACCT No. Visit Date/Time Discharge Status Pt. Type Provider Facility Loc./Unit Complaint [id number] 01/05/2015 10:37:00 01/05/2015 23:59: 59 CLS Outpatient TATYANA CHAPPELL APRN [id number] 12/03/2014 08:49:00 12/03/2014 23:59: 59 CLS Outpatient JUSTICE VARGAS MD [id number] 10/18/2014 15:07:00 10/18/2014 23:59: 59 CLS Outpatient TATYANA CHAPPELL APRN [id number] 07/14/2014 08:47:00 07/14/2014 23:59: 59 CLS Outpatient MADL ORE SMELTER, TATYANA L [id number] 06/30/2014 11:06:00 06/30/2014 23:59: 59 CLS Outpatient MADL ORE SMELTER, TATYANA L [id number] 06/29/2014 11:05:00 06/29/2014 23:59: 59 CLS Outpatient MADL ORE SMELTER, TATYANA L [id number] 06/23/2014 08:57:00 06/23/2014 23:59: 59 CLS Outpatient LUBA ORE SMELTERJOSE S [id number] 06/23/2014 08:57:00 06/23/2014 23:59: 59 CLS Outpatient LUBA ORE SMELTERABBEYJOSE S [id number] 05/19/2014 06:36:00 05/19/2014 23:59: 59 CLS Outpatient SIMPSON DO NELI Hernandez [id number] 05/12/2014 15:51:00 05/12/2014 23:59: 59 CLS Outpatient SIMPSON DO NELI Hernandez [id number] 05/12/2014 15:51:00 05/12/2014 23:59: 59 CLS Outpatient MADL ORE SMELTER, TATYANA L [id number] 04/09/2014 13:44:00 04/09/2014 23:59: 59 CLS Outpatient MADL ORE SMELTER, TATYANA L [id number] 03/30/2014 12:51:00 03/30/2014 23:59: 59 CLS Outpatient WESLEY LSCSFERNANDA [id number] 03/12/2014 14:10:00 03/12/2014 23:59: 59 CLS Outpatient WESLEY LSCS, FERNANDA Mcmillan [id number] 03/05/2014 09:24:00 03/05/2014 23:59: 59 CLS Outpatient SIMPSON DO NELI Hernandez [id number] 02/09/2014 13:28:00 02/09/2014 23:59: 59 CLS Outpatient MADL ORE SMELTER, TATYANA L [id number] 02/03/2014 00:00:00 02/03/2014 23:59: 59 CLS Outpatient MADL ORE SMELTER, TATYANA L [id number] 02/01/2014 16:00:00 02/01/2014 23:59: 59 CLS Outpatient MADL ORE SMELTER, TATYANA L [id number] 12/31/2013 10:31:00 12/31/2013 23:59: 59 CLS Outpatient NELI SIMPSON DO [id number] 12/17/2013 10:09:00 12/17/2013 23:59: 59 CLS Outpatient NELI SIMPSON DO [id number] 10/23/2013 11:11:00 10/23/2013 23:59: 59 CLS Outpatient PATY LATHAM MD [id number] 08/27/2013 14:44:00 08/27/2013 23:59: 59 CLS Outpatient TESSA MCKEON MD [id number] 07/16/2013 07:30:00 07/16/2013 23:59: 59 CLS Outpatient TATIANA LAGUNA NELI Hernandez [id number] 07/08/2013 10:23:00 07/08/2013 23:59: 59 CLS Outpatient PATY LATHAM MD [id number] 06/09/2013 11:23:00 06/09/2013 23:59: 59 CLS Outpatient PATY LATHAM MD [id number] 12/02/2012 09:20:00 12/02/2012 23:59: 59 CLS Outpatient PATY LATHAM MD [id number] 11/27/2012 12:48:00 11/27/2012 23:59: 59 CLS Outpatient [id number] 11/24/2012 13:51:00 11/24/2012 23:59: 59 CLS Outpatient [id number] 11/07/2012 15:04:00 11/07/2012 23:59: 59 CLS Outpatient [id number] 10/28/2012 10:45:00 10/28/2012 23:59: 59 CLS Outpatient TESSA MCKEON MD [id number] 10/23/2012 10:26:00 10/23/2012 23:59: 59 CLS Outpatient [id number] 10/08/2012 09:50:00 10/08/2012 23:59: 59 CLS Outpatient PATY LATHAM MD [id number] 09/22/2012 14:19:00 09/22/2012 23:59: 59 CLS Outpatient TESSA MCKEON MD [id number] 09/08/2012 08:08:00 09/08/2012 23:59: 59 CLS Outpatient PATY LATHAM MD [id number] 08/22/2012 13:36:00 08/22/2012 23:59: 59 CLS Outpatient MIKE WALLIS, TESSA [id number] 08/15/2012 14:45:00 08/15/2012 23:59:5 9 CLS Outpatient SYLVIE MINER JUDY Jose D [id number] 05/01/2013 09:35:00 Document Registration [id number] 04/16/2013 09:41:00 Document Registration [id number] 04/01/2013 08:30:00 Document Registration [id number] 02/26/2013 15:23:00 Document Registration [id number] 01/20/2013 13:55:00 Document Registration [id number] 01/06/2013 13:52:00 Document Registration [id number] 09/18/2019 13:05:00 020 00:01:00 DIS Outpatient BRENDON PLUNKETT DO [facility] A31.2,R06.00,R09.02 [id number] 12/11/2019 13:57:00 020 23:59:59 CLS Outpatient SELMA FELIX APRN [facility] RAD LT FOOT PAIN [id number] 10/15/2019 09:46:00 020 23:59:59 CLS Outpatient ENDY WALLIS, SHANTANU [facility] ONC [id number] 10/13/2019 10:03:00 020 23:59:59 CLS Outpatient ADITYA APODACA APRN [facility] RAD SQUAMOUS CELL C ARCINOMA [id number] 10/06/2019 08:50:00 020 23:59:59 CLS Outpatient NONI CAMPBELL MD [facility] RAD LEFT FOOT OSTEOMYCELITI S [id number] 09/23/2019 09:40:00 020 14:45:00 DIS Outpatient ADITYA APODACA APRN [facility] RAD DISSEMINATED MY COBACTERIUM AVIUM [id number] 09/17/2019 07:34:00 020 23:59:59 CLS Outpatient ADITYA APODACA APRN [facility] RAD COPD [id number] 08/27/2019 11:18:00 12/12/2 019 23:59:59 CLS Outpatient ADITYA APODACA APRN [facility] RAD COPD [id number] 08/17/2019 07:05:00 23:59:59 CLS Outpatient ADITYA APODACA APRN [facility] RAD ACUTE URI, COPD [id number] 08/17/2019 13:58:00 16:32:00 DIS Emergency WYNN DO, RAN L [facility] ER POSS TB [id number] 08/10/2019 10:52:00 23:59:59 CLS Outpatient ADITYA APODACA APRN [facility] RAD ACUTE URI [id number] 08/03/2019 11:06:00 12:40:00 DIS Outpatient JULIET RODRIGUEZ MD [facility] SDC HALFWAY IV ANTIBIOTIC [id number] 07/09/2019 08:30:00 23:59:59 CLS Preadmit JUSTICE VARGAS MD [facility] CARD PALPITATIONS, BUNDLE BR ANCH BLOCK, LEFT [id number] 07/06/2019 07:10:00 23:59:59 CLS Outpatient JUSTICE VARGAS MD [facility] CARD PALPITATIONS, BUNDLE BR ANCH BLOCK, LEFT [id number] 06/26/2019 13:45:00 23:59:59 CLS Outpatient ADITYA APODACA APRN [facility] RT TOBACCO USER,CO PD,SOB [id number] 05/20/2019 08:15:00 23:59:59 CLS Preadmit ADITYA APODACA APRN [facility] RT COPD W/ ASTHMA, PULMONARY NODULE [id number] 05/19/2019 14:47:00 23:59:59 CLS Outpatient KIMBER STAPLES MD [facility] WOUNDCARE [id number] 04/20/2019 08:08:00 23:59:59 CLS Outpatient KIMBER STAPLES MD [facility] WOUND[facility] [id number] 03/23/2019 08:09:00 23:59:59 CLS Outpatient KIMBER STAPLES MD [facility] WOUND[facility] [id number] 03/16/2019 08:09:00 23:59:59 CLS Outpatient KIMBER STAPLES MD [facility] WOUND[facility] [id number] 03/12/2019 22:43:00 13:30:00 DIS Inpatient RODRIGUEZ SHANNON Rosalio ia [facility] 4TH SEPSIS,CELLULITIS L ALECIA T, L TOE Fx [id number] 03/12/2019 11:32:00 23:59:59 CLS Outpatient LIZZETTE OLSON APRN [facility] RAD E11.621,M86.472 [id number] 03/12/2019 09:45:00 23:59:59 CLS Outpatient LIZZETTE OLSON APRN [facility] WOUNDCARE [id number] 03/10/2019 08:25:00 23:59:59 CLS Outpatient KIMBER STAPLES MD [facility] WOUND[facility] [id number] 02/24/2019 08:52:00 23:59:59 CLS Outpatient ADITYA APODACA APRN [facility] RAD PULMONARY NODUL E [id number] 02/13/2019 19:00:00 13:24:00 DIS Inpatient RONA ENRIQUE MD [facility] 4TH OSTEOMYELITIS L GREAT TOE,CELLULITIS L GREAT TOE [id number] 02/10/2019 08:56:00 23:59:59 CLS Outpatient KIMBER STAPLES MD [facility] WOUND[facility] [id number] 02/03/2019 09:02:00 23:59:59 CLS Outpatient LIZZETTE OLSON APRN [facility] WOUND[facility] [id number] 02/03/2019 09:55:00 10:15:00 DIS Outpatient WESLEY LIZZETTE R ORE SMELTER [facility] E11.621 Z72.0 [id number] 01/27/2019 08:52:00 23:59:59 CLS Outpatient WESLEY LIZZETTE R ORE SMELTER [facility] WOUND[facility] [id number] 01/19/2019 09:10:00 23:59:59 CLS Outpatient KIMBER STAPLES MD [facility] TYPE 2 DIABETES,FOOT UL CER [id number] 01/19/2019 08:15:00 23:59:59 CLS Outpatient KIMBER STAPLES MD [facility] WOUND[facility] [id number] 01/13/2019 08:46:00 23:59:59 CLS Outpatient WESLEY LIZZETTE R ORE SMELTER [facility] W[facility] [id number] 01/06/2019 08:54:00 23:59:59 CLS Outpatient WESLEY LIZZETTE R ORE SMELTER [facility] W[facility] [id number] 12/30/2018 08:53:00 23:59:59 CLS Outpatient WESLEY LIZZETTE R ORE SMELTER [facility] [id number] 12/23/2018 08:52:00 23:59:59 CLS Outpatient WESLEY LIZZETTE R ORE SMELTER [facility] W[facility] [id number] 12/09/2018 08:46:00 23:59:59 CLS Outpatient WESLEY, LIZZETTE R ORE SMELTER [facility] W[facility] [id number] 12/02/2018 08:52:00 23:59:59 CLS Outpatient WESLEY, LIZZETTE R ORE SMELTER [facility] [id number] 11/25/2018 08:57:00 23:59:59 CLS Outpatient WESLEY LIZZETTE R ORE SMELTER [facility] [id number] 11/17/2018 10:24:00 23:59:59 CLS Outpatient KIMBER STAPLES MD [facility] RAD CHRONIC OSTEOMYELITIS W ITH DRAINING SINUS [id number] 11/17/2018 09:28:00 23:59:59 CLS Outpatient KIMBER STAPLES MD [facility] WOUND[facility] [id number] 11/11/2018 08:26:00 23:59:59 CLS Outpatient LIZZETTE OLSON APRN [facility] WOUND[facility] [id number] 11/04/2018 08:57:00 23:59:59 CLS Outpatient LIZZETTE OLSON APRN [facility] [id number] 10/29/2018 08:50:00 12:15:00 DIS Outpatient KIMBER WORRELL MD [facility] SDC LEFT LONG TRIGGER FING ER [id number] 10/28/2018 09:29:00 23:59:59 CLS Outpatient LIZZETTE OLSON APRN [facility] WOUNDCARE [id number] 10/27/2018 05:32:00 08:58:00 DIS Outpatient KIMBER WORRELL MD [facility] PREOP LEFT TRIGGER FINGER [id number] 10/21/2018 09:24:00 23:59:59 CLS Outpatient LIZZETTE OLSON ORE SMELTER [facility] WOUND[facility] [id number] 10/14/2018 09:25:00 23:59:59 CLS Outpatient LIZZETTE OLSON ORE SMELTER [facility] WOUND[facility] [id number] 10/07/2018 09:27:00 23:59:59 CLS Outpatient LIZZETTE OLSON ORE SMELTER [facility] W[facility] [id number] 09/30/2018 09:30:00 23:59:59 CLS Outpatient KIMBER STAPLES MD [facility] WOUND[facility] [id number] 09/23/2018 11:08:00 019 23:59:59 CLS Outpatient FELISHA OLSONN R ORE SMELTER [facility] WOUND[facility] [id number] 09/15/2018 09:19:00 018 23:59:59 CLS Outpatient WESLEY LIZZETTE R ORE SMELTER [facility] WOUND[facility] [id number] 09/01/2018 14:32:00 018 23:59:59 CLS Outpatient WESLEY LIZZETTE R ORE SMELTER [facility] WOUND[facility] [id number] 08/27/2018 15:56:00 23:59:59 CLS Preadmit ADITYA APODACA ORE SMELTER [facility] RT COPD [id number] 08/25/2018 14:29:00 018 23:59:59 CLS Outpatient WESLEY LIZZETTE R ORE SMELTER [facility] WOUND[facility] [id number] 08/20/2018 11:20:00 018 23:59:59 CLS Outpatient DAVID SANTAMARIA MD [facility] WOUND[facility] [id number] 08/18/2018 14:47:00 018 23:59:59 CLS Outpatient LIZZETTE OLSON R ORE SMELTER [facility] WOUND[facility] [id number] 08/14/2018 09:12:00 018 23:59:59 CLS Outpatient ADITYA APODACA ORE SMELTER [facility] RAD Z98.890,R05 [id number] 08/13/2018 06:54:00 018 10:20:00 DIS Outpatient BRENDON PLUNKETT DO [facility] ENDO INTERSTITIAL LUNG DISEASE/LYMPHADENOPATHY [id number] 08/11/2018 14:30:00 018 23:59:59 CLS Outpatient LIZZETTE OLSON R ORE SMELTER [facility] WOUNDCARE [id number] 08/11/2018 09:30:00 018 10:04:00 DIS Outpatient BRENDON PLUNKETT DO [facility] PREOP EBUS [id number] 08/04/2018 14:22:00 23:59:59 CLS Outpatient LIZZETTE OLSON ORE SMELTER [facility] WOUNDC[facility] [id number] 07/29/2018 08:33:00 23:59:59 CLS Outpatient ADITYA APODACA ORE SMELTER [facility] RAD LUNG MASS [id number] 07/28/2018 13:59:00 23:59:59 CLS Outpatient LIZZETTE OLSON ORE SMELTER [facility] WOUNDCARE [id number] 07/23/2018 06:35:00 10:11:00 DIS Outpatient BRENDON PLUNKETT DO [facility] ENDO HYPOXEMIA/LUNG DISEASE/ PULMONARY NODULE/RENAE/SJOGRE [id number] 07/22/2018 05:45:00 018 09:28:00 DIS Outpatient BRENDON PLUNKETT DO [facility] PREOP BRONCHOSCOPY [id number] 07/21/2018 16:03:00 23:59:59 CLS Outpatient KIMBER STAPLES MD [facility] LAB TYPE 2 DIABETES MELLITU S WITH FOOT ULCER [id number] 07/21/2018 14:30:00 23:59:59 CLS Outpatient KIMBER STAPLES MD [facility] WOUNDCARE [id number] 07/15/2018 09:45:00 23:59:59 CLS Outpatient LIZZETTE OLSON APRN [facility] RAD [address]30 [id number] 07/15/2018 08:08:00 23:59:59 CLS Outpatient LIZZETTE OLSON APRN [facility] WOUNDCARE [id number] 06/02/2018 07:45:00 018 07:45:00 CAN Preadmit ADITYA APODACA APRN [facility] RAD PULMONARY NODUL E,CHRONIC BRONCHITIS [id number] 05/23/2018 10:15:00 09/07/2 018 10:15:00 CAN Preadmit ADITYA APODACA ORE SMELTER [facility] RAD J20.9 [id number] 12/23/2017 08:15:00 018 23:59:59 CLS Preadmit ADITYA APODACA ORE SMELTER [facility] PULM J84.9,R09.02,R0 6.00,Z72.0 [id number] 11/07/2017 09:00:00 018 00:01:00 DIS Outpatient ADITYA APODACA ORE SMELTER [facility] PULM J84.9,R09.02,R0 6.00,Z72.0 [id number] 10/17/2017 10:23:00 018 14:26:00 DIS Emergency ILIA WALLIS, NERIS Jeffery [facility] ER DIZZY [id number] 10/14/2017 08:28:00 018 23:59:59 CLS Outpatient ADITYA APODACA ORE SMELTER [facility] RT J84.9 ILD [id number] 10/07/2017 09:58:00 018 23:59:59 CLS Preadmit ADITYA APODACA ORE SMELTER [facility] SLEEP G47.33 RENAE [id number] 08/27/2017 10:54:00 017 23:59:59 CLS Outpatient ADITYA APODACA ORE SMELTER [facility] LAB J20.9 J84.9 R06 .00 M35.00 [id number] 08/05/2017 19:10:00 017 16:28:00 DIS Inpatient HORACE WALLIS, NINFA Pace [facility] 4TH PNEUMONIA CAP W SEPTIC TW,DEHYDRATION VOLUME DEPLE [id number] 07/15/2017 10:22:00 017 13:59:00 DIS Emergency IVÁN GRACE ORE SMELTER [facility] ER SOB [id number] 07/03/2017 15:44:00 017 17:59:00 DIS Emergency LILIBETH DURAN MD [facility] ER ALLERGIC REACTI ON TO MEDICATION [id number] 07/03/2017 02:29:00 06:18:00 DIS Emergency DALE BRANCH MD [facility] ER RT SIDE PAIN [id number] 06/25/2017 13:45:00 017 23:59:59 CLS Preadmit NATHALIA CHAPPELLWNYKatelynn Castellano [employer]ICAID BILLING SPECIALIST Via [facility] RAD RLQ ABD PAIN [id number] 05/09/2017 14:26:00 017 23:59:59 CLS Outpatient BRENDON PLUNKETT DO [facility] RAD PULMONARY NODULE [id number] 02/07/2017 13:51:00 23:59:59 CLS Outpatient MISTI TATYANA Castellano MEDICAID BILLING SPECIALIST [facility] RAD M79.622 LEFT UPPER ARM PAIN [id number] 01/26/2017 10:49:00 23:59:59 CLS Outpatient KIMBER WORRELL MD [facility] RAD RTC PARTIAL LEFT M75.1 12 [id number] 11/08/2016 16:25:00 017 20:15:00 DIS Emergency IVÁN GRACE APRN [facility] ER STROKE SYMPTOMS [id number] 11/05/2016 12:59:00 017 23:59:59 CLS Outpatient ADITYA APODACA APRN [facility] RAD SOB,PULMONARY NODULE,INTERSTITIAL LUNG DISEASE [id number] 09/24/2016 10:39:00 017 13:42:00 DIS Emergency RONA ENRIQUE MD [facility] ER COUGH, CONGESTION, POSS IBLE PNEUMONIA [id number] 07/19/2016 10:30:00 016 11:10:00 DIS Outpatient KIMBER WORRELL MD [facility] REHAB S/P R SHLD SCOPE, YANICK P TENOTOMY AND ACROMIOPLASTY [id number] 08/06/2016 12:53:00 016 23:59:59 CLS Outpatient ADITYA APODACA APRN [facility] RAD DYSPNEA,SOB,TOB ACCO USER [id number] 06/27/2016 07:25:00 12:50:00 DIS Outpatient KIMBER WORRELL MD [facility] RIGHT PARTIAL TORN ROT ATOR CUFF [id number] 06/21/2016 10:42:00 11:15:00 DIS Outpatient KIMBER WORRELL MD [facility] PREOP RIGHT PARTIAL TORN ROT ATOR CUFF [id number] 06/13/2016 11:42:00 23:59:59 CLS Outpatient BRENDON PLUNKETT DO [facility] RT DYSPNEA AND RESPIRATORY ABNORMALITIES [id number] 05/29/2016 07:59:00 23:59:59 CLS Outpatient KIMBER WORRELL MD [facility] RAD ROTATOR CUFF TEAR [id number] 03/13/2016 18:53:00 10:20:00 DIS Inpatient NINFA VU MD Via [facility] ICU HYPOTENSION,MEDICATION SIDE EFFECT [id number] 01/02/2016 08:07:00 23:59:59 CLS Outpatient TATYANA CHAPPELL Via [facility] RAD PAIN IN RT UPPER EXT [id number] 10/24/2015 09:45:00 14:15:00 DIS Inpatient JUSTICE VARGAS MD Via [facility] CSD CHEST PAIN [id number] 09/12/2015 07:30:00 23:59:59 CLS Outpatient NONI CAMPBELL MD Via [facility] RAD RIGHT UPPER QUADRANT PA IN [id number] 07/22/2015 08:49:00 12:20:00 DIS Outpatient NONI CAMPBELL MD Via [facility] HX OF POLYPS, BLOOD IN STOOL, ABD. PAIN [id number] 07/19/2015 05:46:00 11/03/2 015 23:59:59 CLS Outpatient NONI CAMPBELL MD Via [facility] PREOP HX COLON POLYPS, BLOOD IN STOOL, ABD. PAIN [id number] 07/12/2015 19:25:00 00:08:00 DIS Emergency LILIBETH DURAN MD Via [facility] ER ABD PAIN/BLOATI NG [id number] 06/01/2015 20:23:00 015 21:54:00 DIS Emergency TODD DAWSON Via [facility] ER BACK,NECK PAIN [id number] 02/21/2015 13:30:00 23:59:59 CLS Preadmit TATYANA CHAPPELL MEDICAID BILLING SPECIALIST Via [facility] CARD CP [id number] 11/22/2014 13:10:00 015 00:01:00 DIS Outpatient MAX CHAPPELLA L MEDICAID BILLING SPECIALIST Via [facility] CARD CP [id number] 01/30/2015 11:25:00 13:37:00 DIS Emergency IVÁN GRACE APRN Via [facility] ER DIARRHEA/NAUSEA [id number] 01/21/2015 08:30:00 23:59:59 CLS Preadmit EDGAR PRIEST MD Via [facility] CARD SIJD [id number] 01/02/2015 22:26:00 015 02:01:00 DIS Emergency LILIBETH DURAN MD Via [facility] ER NAUSEA;SOA;LIGH T HEADED [id number] 12/28/2014 12:48:00 23:59:59 CLS Outpatient SALLIE LANGE [facility] CARD CAD,CP,HLP, HTN [id number] 12/16/2014 09:11:00 23:59:59 CLS Outpatient MADLMAXA L MEDICAID BILLING SPECIALIST Via [facility] RAD BACK PAIN [id number] 12/03/2014 20:57:00 03/20/2 015 22:24:00 DIS Emergency IVÁN GRACE APRN [facility] ER R HIP PAIN [id number] 04/26/2014 11:01:00 23:59:59 CLS Outpatient BRENDON PLUNKETT DO Via [facility] RAD LUNG DISEASE,RENAE [id number] 04/10/2014 00:25:00 15:40:00 DIS Inpatient TESSA MCKEON MD Via [facility] ICU INTENTIONAL DRUG OVERDO SE;SUICIDE ATTEMPT [id number] 03/26/2014 09:48:00 23:59:59 CLS Outpatient JULIET MACE DO [facility] RAD TRANSIENT CONFUSION [id number] 03/11/2014 21:34:00 00:08:00 DIS Emergency JULIET MACE DO [facility] ER CONFUSION [id number] 02/25/2014 08:30:00 10:01:00 DIS Outpatient TATYANA CHAPPELL Via [facility] WOUNDCARE DIABETE RIGHT FOOT ULCE R [id number] 01/20/2014 11:31:00 14:27:00 DIS Outpatient [facility] [id number] 01/13/2014 07:30:00 23:59:59 CLS Outpatient BRENDON PLUNKETT DO Via [facility] PREOP LUNG NODULE [id number] 12/15/2013 17:39:00 19:42:00 DIS Emergency TODD DAWSON [facility] ER BILAT FEET SWOLLEN TOE S [id number] 12/11/2013 17:54:00 19:11:00 DIS Emergency ALEXI CARVALHO MD Via [facility] ER HIGH BLOOD SUGAR, BLURR Y VISION [id number] 12/03/2013 11:16:00 014 23:59:59 CLS Outpatient BRENDON PLUNKETT DO [facility] PREOP NODULE [id number] 11/20/2013 08:05:00 014 23:59:59 CLS Outpatient BRENDON PLUNKETT DO Via [facility] PREOP INTERSTITIAL LUNG DISEA SE; RIGHT LUNG NODULE [id number] 11/19/2013 12:54:00 23:59:59 CLS Outpatient BRENDON PLUNKETT DO Via [facility] RT LUNG DISEASE,RENAE [id number] 11/17/2013 10:11:00 23:59:59 CLS Outpatient JUSTICE VARGAS MD [facility] LAB CP,HTN,LLBBB [id number] 11/16/2013 21:09:00 06:25:00 DIS Outpatient BRENDON PLUNKETT DO [facility] SLEEP RENAE,LUNG DISEASE [id number] 11/13/2013 12:24:00 23:59:59 CLS Outpatient BRENDON PLUNKETT DO Via [facility] RAD LUNG DISEASE,RENAE,IDDM,LBBB,PALPITATIONS [id number] 10/05/2013 00:45:00 15:00:00 DIS Inpatient NELI SIMPSON DO [facility] CSD CHEST PAIN;DIABETES;WARREN KOCYTOSIS [id number] 06/30/2013 09:37:00 23:59:59 CLS Outpatient MICHELLE WINTER MD [facility] RAD SOB,ILD [id number] 06/07/2013 05:13:00 07:17:00 DIS Emergency RODRI JULIET LAGUNA a [facility] ER ABD PAIN [id number] 05/31/2013 14:26:00 16:35:00 DIS Inpatient PATY LATHAM MD Via [facility] ICU NARCOTIC WITHDR AWL [id number] 05/07/2013 09:02:00 23:59:59 CLS Outpatient PATY LATHAM MD [facility] CARD SOB,HX OF LT BB B,CYSTOLIC DYSFUNCTION [id number] 04/02/2013 16:49:00 013 14:45:00 DIS Inpatient MIKE WALLIS, TESSA Zhang [facility] 4TH HYPOXIA,SOB [id number] 04/01/2013 20:00:00 013 05:30:00 DIS Outpatient NOA WALLIS, PATY Russell [facility] SLEEP SNORING,CHOKING/GASPING,HTN,MOOD DISORDER,OA, [id number] 02/26/2013 06:39:00 013 08:45:00 DIS Emergency KLAUS WALLIS, RONA Hernandez [facility] ER SHAKING,ARM PAIN,DRUG W ITHDRAWL [id number] 02/25/2013 22:28:00 013 02:53:00 DIS Emergency RODRI DO, JULIET K Vi [facility] ER L EXTREMITY PAIN [id number] 02/04/2013 09:24:00 013 16:00:00 DIS Outpatient NOA WALLIS, PATY Russell [facility] RAD CERVICAL REGION DISORDER,SOB,LEUKOCYTOSIS [id number] 12/19/2018 19:03:00 Document Registration [id number] 10/23/2018 08:45:00 Document Registration [id number] 07/03/2017 18:01:00 Document Registration [id number] 07/03/2017 18:01:00 Document Registration [id number] 12/03/2014 11:18:00 Document Registration [id number] 12/16/2012 07:55:00 Document Registration [id number] 08/13/2012 19:15:00 Document Registration [id number] 08/05/2012 11:50:00 Document Registration [id number] 10/24/2010 16:40:00 Document Registration [id number] 12/26/2007 11:03:00 Document Registration
--- NOTE | 2020-01-01 11:39 | Diagnostic Imaging Report ---
INDICATION: Lung cancer and central venous catheter placement. EXAM: Single AP view of the chest was obtained. COMPARISON is made to study of 09/23/2019. Cavitary mass is again identified in the periphery of the left upper lobe. There is now left anterior chest wall port with catheter reaching the mid superior vena cava. No pneumothorax identified. Surgical findings are seen in the cervical spine as well. IMPRESSION: Persistent left upper lobe nodule corresponding to patient's known neoplasm. There is no evidence of complication related to port placement. Dictated by: Dictated on workstation # [id number]
--- NOTE | 2020-01-01 11:40 | Diagnostic Imaging Report ---
INDICATION: Fluoroscopy during Groshong catheter placement. Fluoroscopy was provided in OR during Groshong catheter placement. 11 seconds of fluoroscopic time was utilized. A single image was obtained. Single image shows a left-sided Groshong catheter tip overlying the region of the SVC. IMPRESSION: Fluoroscopy for Groshong catheter placement. Dictated by: Dictated on workstation # [id number]
[2020-01-01] MEDS ORDERED: morphine INJ 10 MG/ML 1ML (SYR OR VIAL) IVP ONE (11:45)
[2020-01-01] MEDS ORDERED: HYDR-4342 PO (12:13)
--- NOTE | 2020-01-01 13:20 | Anesthesia-General Post-Op ---
MAC Patient Condition Mental Status/LOC: Same as Preop Cardiovascular: Satisfactory Nausea/Vomiting: Absent Respiratory: Satisfactory Pain: Controlled Complications: Absent Post Op Complications Complications None Follow Up Care/Instructions Patient Instructions None needed. Anesthesiology Discharge Order Discharge Order Patient was seen after the procedure and he was doing well, no complaints, stable vital signs, no apparent adverse anesthesia problems. He was hypoglycemic initially after the procedure but was tolerating liquids so had something by mouth and felt much improved. VIRGIL GORDON DO Jan 01, 2020 13:20
--- NOTE | 2020-01-01 14:34 | OPERATIVE REPORT ---
DATE OF SERVICE: 01/01/2020 ATTENDING PRIMARY CARE PHYSICIAN: Ashley Haddad MD. PREOPERATIVE DIAGNOSES: Left lung squamous cell cancer, severe peripheral vascular disease with bilateral foot osteomyelitis. POSTOPERATIVE DIAGNOSES: Left lung squamous cell cancer, severe peripheral vascular disease with bilateral foot osteomyelitis. PROCEDURE: Placement of left subclavian Groshong implantable catheter under fluoroscopy. SURGEON: Noni Campbell MD. ANESTHESIA: Monitored anesthesia care with local. ESTIMATED BLOOD LOSS: Minimal. FINDINGS: Catheter tip at superior vena caval -- right atrial junction. DISPOSITION: The patient tolerated the procedure well. INDICATIONS: The patient is a 59-year-old male known to us. He has had a longstanding history of insulin-dependent diabetes as well as development of peripheral vascular disease and bilateral toe osteomyelitis, requiring multiple toe amputations as well as debridements. He also was diagnosed with left lung squamous cell cancer and will eventually undergo chemotherapy for this. He does have a PICC line; however, this has become nonfunctional. DESCRIPTION OF PROCEDURE: The patient was brought to the operating room and laid supine on the table. After adequate IV pain and stated medications and monitored anesthesia care, the chest and neck were prepped and draped in standard surgical fashion. Lidocaine 1% with epinephrine was then used to anesthetize the overlying skin in the left subclavian region and the left subclavian vein was cannulated with drawing of venous blood. The guidewire was then inserted under fluoroscopy. The cannulating needle removed and a skin incision made using a 15 blade. The dilator and sheath were then placed over the guidewire and the dilator and guidewire were then removed and the catheter then placed through the sheath until the catheter tip was at the superior vena cava/right atrial junction. The sheath was then removed. The inner wire within the catheter was then removed. The catheter cut down to size and the port placed onto the catheter. The chest reservoir was then created by extending the skin incision laterally and a plane was created between the subcutaneous fat as well as the anterior pectoralis fascia using blunt dissection as well as electrocautery with visualization of good hemostasis. The port was then placed into this reservoir and sutured to the anterior pectoralis fascia using interrupted 3-0 Vicryl sutures. The subcutaneous tissue was then reapproximated using 3-0 Vicryl interrupted sutures and the skin was closed using 4-0 Monocryl running subcuticular suture. The port was accessed with a Rosenthal needle for use later today. We will get a post-procedure chest x-ray. Job ID: [id number] DocumentID: [id number] Dictated Date: 01/01/2020 11:16:50 Elevator Inspector Date: 01/01/2020 14:34:01 Dictated By: NONI CAMPBELL MD
== END 2020-01-01 12:45 | disposition home or self-care (01) ==
LOC: SDC 09:15
PROVIDERS: ATTEND Surgery
DX: C34.12 Malignant neoplasm of upper lobe, left bronchus or lung (principal); E11.51 Type 2 diabetes mellitus with diabetic peripheral angiopathy without gangrene; E11.69 Type 2 diabetes mellitus with other specified complication; E11.40 Type 2 diabetes mellitus with diabetic neuropathy, unspecified; M86.9 Osteomyelitis, unspecified; M79.7 Fibromyalgia; M19.90 Unspecified osteoarthritis, unspecified site; G47.33 Obstructive sleep apnea (adult) (pediatric); I10 Essential (primary) hypertension; I25.10 Atherosclerotic heart disease of native coronary artery without angina pectoris; E78.5 Hyperlipidemia, unspecified; J44.9 Chronic obstructive pulmonary disease, unspecified; K21.9 Gastro-esophageal reflux disease without esophagitis; G25.81 Restless legs syndrome; J84.9 Interstitial pulmonary disease, unspecified; F41.9 Anxiety disorder, unspecified; F32.9 Major depressive disorder, single episode, unspecified; Z86.73 Personal history of transient ischemic attack (TIA), and cerebral infarction without residual deficits; Z88.1 Allergy status to other antibiotic agents; Z87.891 Personal history of nicotine dependence; Z79.891 Long term (current) use of opiate analgesic; Z79.899 Other long term (current) drug therapy; Z89.421 Acquired absence of other right toe(s); Z80.0 Family history of malignant neoplasm of digestive organs; Z82.3 Family history of stroke
CPT/HCPCS: 71045; 82962; 87081

== ENCOUNTER 2020-02-17 12:53 | Outpatient (RCR) | payer MEDICARE ==
[~2020-02-17 12:53] MED LIST changes: +HYDR-3817 PO; -HYDR-4342 PO
== END 2020-05-17 | disposition home or self-care (01) ==
LOC: ONC 12:53
PROVIDERS: ATTEND Internal Medicine Hematology & Oncology
DX: C34.92 Malignant neoplasm of unspecified part of left bronchus or lung (principal); J44.9 Chronic obstructive pulmonary disease, unspecified
CPT/HCPCS: 99213

== ENCOUNTER → 2020-02-17 | Outpatient (CLI) | payer MEDICARE ==
[~2020-02-17] MED LIST changes: +ASCO500C17 PO; +ATOR40TA70 PO; +HYDR-4342 PO; +LORA-404 PO; +MULT-406 PO; +NALO4SPR NS; +VANC2PIG IV
--- NOTE | 2020-02-17 11:34 | Diagnostic Imaging Report ---
PROCEDURE: CT chest without contrast. TECHNIQUE: Multiple contiguous axial images were obtained through the chest without the use of intravenous contrast. Auto Exposure Controls were utilized during the CT exam to meet ALARA standards for radiation dose reduction. DATE: February 17, 2020. COMPARISON: CT chest September 17, 2019. August 17, 2019. February 24, 2019. August 06, 2017. July 15, 2017. INDICATION: 59-year-old male, history of non-small cell lung cancer status post radiation therapy. PROCEDURE: Axial noncontrasted CT images of the chest. Noncontrasted limits the evaluation of the mediastinum and vascular structures. FINDINGS: There is a cavitary nodule in the left upper lobe currently measuring 2.5 x 2.2 cm in size. On the prior CT chest of September 17, 2019, this previously measured 2.6 x 2.1 cm in size. This is essentially unchanged in size. The degree of cavitation of the lesion is fairly similar in overall extent. There is a nodule along the left-sided fissure in the left upper lobe on axial image 78 which measures 12 mm in size. This is unchanged. There is a subjacent pleural-based nodule measuring 9 mm in size which is also unchanged since September 17, 2019. In the right middle lobe on axial image 103, there is a 5 mm pulmonary nodule which is unchanged. There is no new or enlarging pulmonary nodule. There are upper lobe predominant findings of emphysema. The central airways are patent. There is no identified pneumothorax. There is no pleural effusion. There are coronary artery calcifications and additional areas of atherosclerotic disease. The heart is not enlarged. There is no pericardial effusion. There does appear to be a right hilar lymph node on axial image 70 measuring 11 mm in short axis. This is unchanged since September 17, 2019. There is no identified new or enlarging mediastinal or axillary lymph node specifically meeting size criteria for adenopathy. The imaged portions of the upper abdomen are unremarkable in appearance. There is no identified bone lesion concerning for metastatic disease. IMPRESSION: 1. Cavitary left upper lobe pulmonary nodule without change in size or extent of cavitation since September 17, 2019. 2. Unchanged size of pleurally based left upper lobe pulmonary nodules and right middle lobe pulmonary nodule since September 17, 2019. 3. Redemonstrated right hilar lymph node measuring 11 mm in short axis which is unchanged in size. No new or enlarging mediastinal or axillary lymph node. Dictated by: Dictated on workstation # [id number]
== END ==
LOC: RAD 09:40
PROVIDERS: ATTEND Radiology Radiation Oncology
DX: R91.8 Other nonspecific abnormal finding of lung field (principal); Z85.118 Personal history of other malignant neoplasm of bronchus and lung; Z92.3 Personal history of irradiation
CPT/HCPCS: 71250

== ENCOUNTER → 2020-05-16 | Outpatient (CLI) | payer OTHER, MEDICARE | LOC: LABNPT 20:00 | PROVIDERS: ATTEND Surgery | DX: Z01.89 Encounter for other specified special examinations (principal) | CPT/HCPCS: 80202 ==

== ENCOUNTER → 2020-05-30 | Outpatient (CLI) | payer MEDICARE ==
[~2020-05-30] MED LIST changes: -OXYC-465 PO; +OXYC-556 PO
--- NOTE | 2020-05-30 17:47 | Diagnostic Imaging Report ---
HISTORY: COPD. Lung cancer. COMPARISON: 01/01/2020. FINDINGS: Two views of the chest are performed. The left upper lobe mass appears increased in size with additional surrounding airspace opacity. The left Port-A-Cath tip projects over the lower SVC. No pleural effusion or pneumothorax is seen. The cardiac silhouette is normal in size. Cervical spine fusion hardware is noted. IMPRESSION: 1. The left upper lobe mass appears mildly increased in size with increased surrounding airspace opacity which may be due to infection or hemorrhage. Dictated by: Dictated on workstation # [id number]
== END ==
LOC: RAD 16:13
PROVIDERS: ATTEND Nurse Practitioner Family
DX: C34.90 Malignant neoplasm of unspecified part of unspecified bronchus or lung (principal); J44.9 Chronic obstructive pulmonary disease, unspecified; Z95.828 Presence of other vascular implants and grafts; Z98.1 Arthrodesis status
CPT/HCPCS: 71046

== ENCOUNTER → 2020-05-31 | Emergency (ER) | payer MEDICARE ==
[~2020-05-31] VITALS: Ht 187.9 cm; Wt 104.3 kg
[~2020-05-31] MED LIST changes: +ASPIRIN 81 MG CHEW (CHILDREN'S ASA) PO ONE; +KETOROLAC 30 MG/ML VIAL IVP STA; +NS IV 1000 ML 1,000 ML IV SCH; +oxyCODONE/APAP 10/325MG (PERCOCET 10) TABLET PO ONE
--- NOTE | 2020-05-31 13:36 | ED Respiratory ---
General Chief Complaint: Respiratory Problems Stated Complaint: COUGH, CHEST PRESSURE/PAIN History of Present Illness Date Seen by Provider: May 31, 2020 Time Seen by Provider: 13:10 Initial Comments 59-year-old male reports a 2-3 day history of chest pressure on the left side and productive cough with brown tinged phlegm. He is known to have lung cancer, left upper lobe. He had a chest x-ray yesterday after phone consult with Dr. Palmer's office, told today that it showed an infection around his lung mass and he was started on Levaquin 750 mg orally. He has a port in the left chest wall. He has used his albuterol twice today, most recently just [employer]. He wear O2 per NC at 4L, continuously. Denies known COVID-19 exposure, he is on home health and has been maintaining limited social distance and not leaving his home. Household contacts are coming/going but none have symptoms or known exposure. No loss of smell or taste. Timing/Duration: getting worse Prior Episodes/Possible Cause: occasional episodes Associated Symptoms: chest pain/soreness, cough; No fever/chills; muscle aches (weakness), shortness of breath Allergies and Home Medications Allergies Coded Allergies: ceftriaxone (Verified Allergy, Intermediate, 08/11/18) Patient experienced reaction approx. 6 hrs after receiving rocephin. He experienced redness, itching and shortness of air. Benadryl was administered and it resolved. Home Medications Albuterol Sulfate 18 Gm Hfa.aer.ad, 2 PUFF INH Q6H PRN for SHORTNESS OF BREATH, (Reported) Albuterol Sulfate 2.5 Mg/3 Ml Vial.neb, 2.5 MG NEB Q6H PRN for SHORTNESS OF BREATH, (Reported) Budesonide 8.43 Ml [place].pump, 8.43 ML NS BID PRN for ALLERGIES, (Reported) Budesonide/Formoterol Fumarate 10.2 Gm Hfa.aer.ad, 2 PUFF INH BID, (Reported) Hydrocodone/Acetaminophen 1 Each Tablet, 1 EACH PO Q4H PRN for PAIN-MODERATE (5- 7) Prescribed by: HERNANDO KILGORE on 01/01/20 1213 Insulin Aspart 100 Unit/1 Ml Susp, 20 UNITS SQ BID WITH MEALS, (Reported) Insulin Aspart 100 Unit/1 Ml Susp, 10 UNIT SQ 1200, (Reported) Insulin Determir 1,000 Units/10 Ml Soln, 50 UNITS SQ BID, (Reported) LAST PICKED UP 09-14-2018 Lorazepam 0.5 Mg Tablet, 0.5 MG PO for ANXIETY, (Reported) PLACE UNDER TONGUE AND ADD SMALL AMOUNT OF WATER TO DISOLVE TABLET Losartan Potassium 25 Mg Tablet, 25 MG PO DAILY, (Reported) Metoprolol Succinate 50 Mg Tab.er.24h, 50 MG PO DAILY, (Reported) Multivitamin with Minerals 1 Each Tablet, 1 EACH PO DAILY, (Reported) Oxycodone HCl/Acetaminophen 1 Each Tablet, 1 TAB PO QID PRN for PAIN-MODERATE Prescribed by: SHANNON RODRIGUEZ on 03/14/19 1303 Pantoprazole Sodium 40 Mg Tablet.dr, 40 MG PO DAILY, (Reported) LAST PICKED UP 12-16-2018 #30/30DS Pregabalin 300 Mg Capsule, 300 MG PO TID, (Reported) Tiotropium [place] 4 Gm Mist.inhal, 2 PUFF INH DAILY, (Reported) LAST PICKED UP 09-14-2018 Vancomycin/Water For Inj (Peg) 2 Gm/400 Ml Piggyback, 2 GM IV Q12H, (Reported) Patient Home Medication List Home Medication List Reviewed: Yes Review of Systems Review of Systems Constitutional: see HPI; No diaphoresis, No fever; malaise, weakness EENTM: see HPI Respiratory: see HPI, phlegm, short of breath (chronic, no change, wearing O2 at 4L per NC) Cardiovascular: chest pain (stabbing pressure from anterior to posterior) Genitourinary: no symptoms reported, see HPI Musculoskeletal: no symptoms reported, see HPI Skin: no symptoms reported, see HPI All Other Systems Reviewed Negative Unless Noted: Yes Past Iruwvly-Zladdi-Gbjutw Hx Past Med/Social Hx: Reviewed Nursing Past Med/Soc Hx Patient Social History Alcohol Beverage of Choice: Beer Drug of Choice: marijuana Type Used: Cigarettes, Electronic/Vapor, Smokeless Tobacco Former Smoker, Quit: May 17, 2019 2nd Hand Smoke Exposure: No Recent Foreign Travel: No Contact w/Someone Who Travel: No Recent Hopitalizations: No Immunizations Up To Date Tetanus Booster (TDap): Less than 5yrs PED Vaccines UTD: No Date of Pneumonia Vaccine: January 20, 2013 Date of Influenza Vaccine: Jun 20, 2019 Seasonal Allergies Seasonal Allergies: Yes Past Medical History Surgeries: Yes Abdominal, Cardiac, Orthopedic Respiratory: Yes (Innerstitial Lung Disease) Pneumonia, Sleep Apnea, COPD Currently Using CPAP: No (PT STATES, DID NOT NEED AFTER WEIGHT LOSS) Currently Using BIPAP: No Cardiac: Yes (LBBB, CARDIAC [id number] DISEASE/NO INTERVENTION) Coronary Artery Disease, High Cholesterol, Hypertension Neurological: Yes (NEUROPATHY IN FEET; RESTLESS LEG SYNDROME, 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) Neuropathy, TIA Reproductive Disorders: No Sexually Transmitted Disease: No HIV/AIDS: No Genitourinary: No Gastrointestinal: Yes Gastroesophageal Reflux, Hemorrhoids, Polyps Musculoskeletal: Yes Degenerate Disk Disease, Arthritis, Fibromyalgia, Chronic Back Pain Endocrine: Yes Diabetes, Insulin dep HEENT: No Loss of Vision: Denies Hearing Impairment: Hard of Hearing Cancer: No Psychosocial: Yes Anxiety, Suicide Attempts, Depression Integumentary: Yes (DIABETIC FOOT ULCERS/CELLULITIS/OSTEOMYELITIS; MRSA) Blood Disorders: No Adverse Reaction/Blood Tranf: No Family Medical History Cancer 03 MOTHER Cancer of colon 03 MOTHER Cataract 03 MOTHER Chest pain 03 FATHER Family history: Cardiovascular disease 03 FATHER Family history: Diabetes mellitus 09 BROTHER Headache 03 FATHER 03 MOTHER 09 BROTHER 09 BROTHER Heart disease 03 FATHER Myocardial infarction 03 FATHER Stroke 09 BROTHER No Family History of: Abdominal aortic aneurysm Warren's disease Alcoholism Aphasia Congenital heart disease Congestive heart failure Cystic fibrosis Dementia Dysphagia Family history: Allergy Family history: Alzheimer's disease Family history: Arthritis Family history: Asthma Family history: Breast disease Family history: Coronary thrombosis Family history: Gastrointestinal disease Family history: Glaucoma Family history: Hypertension Family history: Osteoporosis Family history: Thyroid disorder Hearing loss Hereditary disease History of - anemia History of - disorder History of - respiratory disease History of drug abuse Human immunodeficiency virus (HIV) seropositivity Hypercholesterolemia Infertile Kidney disease Malignant neoplasm of lung Parkinson's disease Prostate cancer Psychotic disorder Seizure disorder Tuberculosis Visual impairment No Pertinent Family Hx Physical Exam Vital Signs - First Documented 05/31/20 05/31/20 13:07 13:30 Pulse 93 Resp 16 B/P (MAP) 160/97 (118) Pulse Ox 97 O2 Delivery Nasal Cannula O2 Flow Rate 4.00 FiO2 98 Capillary Refill : Height: 6'2.00" Weight: 230lbs. 0.0oz. 104.018148sv; 29.59 BMI Method:Stated General Appearance: WD/WN, no apparent distress Eyes: Bilateral Eye Normal Inspection, Bilateral Eye PERRL, Bilateral Eye EOMI HEENT: PERRL/EOMI, normal ENT inspection, TMs normal, pharynx normal Neck: non-tender, full range of motion, supple, normal inspection; No lymphadenopathy (R), No lymphadenopathy (L) Respiratory: lungs clear, normal breath sounds, no respiratory distress Cardiovascular: normal peripheral pulses, regular rate, rhythm, no JVD, no murmur Gastrointestinal: normal bowel sounds, non tender, soft Extremities: normal range of motion, non-tender, normal inspection Neurologic/Psychiatric: no motor/sensory deficits, alert, normal mood/affect, oriented x 3 Skin: normal color, warm/dry Focused Exam Lactate Level 05/31/20 14:06: Lactic Acid Level 1.36 Lactic Acid Level Laboratory Tests Test 05/31/20 14:06 Lactic Acid Level 1.36 MMOL/L (0.50-2.00) Progress/Results/Core Measures Suspected Sepsis SIRS Temperature: Pulse: Respiratory Rate: Laboratory Tests 05/31/20 13:35: White Blood Count 11.0 Blood Pressure / Mean: 05/31/20 14:06: Lactic Acid Level 1.36 Laboratory Tests 05/31/20 13:35: Creatinine 1.09, INR Comment 1.0, Platelet Count 262, Total Bilirubin 0.4 Results/Orders Lab Results Laboratory Tests Test 05/31/20 13:35 05/31/20 13:55 05/31/20 14:06 05/31/20 14:32 Range/Units White Blood Count 11.0 4.3-11.0 10^3/uL Red Blood Count 4.25 L 4.35-5.85 10^6/uL Hemoglobin 11.7 L 13.3-17.7 G/DL Hematocrit 35 L 40-54 % Mean Corpuscular Volume 82 80-99 FL Mean Corpuscular Hemoglobin 28 25-34 PG Mean Corpuscular Hemoglobin Concent 33 32-36 G/DL Red Cell Distribution Width 14.7 H 10.0-14.5 % Platelet Count 262 130-400 10^3/uL Mean Platelet Volume 10.7 H 7.4-10.4 FL Neutrophils (%) (Auto) 68 42-75 % Lymphocytes (%) (Auto) 21 12-44 % Monocytes (%) (Auto) 10 0-12 % Eosinophils (%) (Auto) 2 0-10 % Basophils (%) (Auto) 1 0-10 % Neutrophils # (Auto) 7.4 1.8-7.8 X 10^3 Lymphocytes # (Auto) 2.3 1.0-4.0 X 10^3 Monocytes # (Auto) 1.0 0.0-1.0 X 10^3 Eosinophils # (Auto) 0.2 0.0-0.3 10^3/uL Basophils # (Auto) 0.1 0.0-0.1 10^3/uL Prothrombin Time 13.3 12.2-14.7 SEC INR Comment 1.0 0.8-1.4 Activated Partial Thromboplast Time 30 24-35 SEC Sodium Level 134 L 135-145 MMOL/L Potassium Level 4.0 3.6-5.0 MMOL/L Chloride Level 97 L 98-107 MMOL/L Carbon Dioxide Level 27 21-32 MMOL/L Anion Gap 10 5-14 MMOL/L Blood Urea Nitrogen 13 7-18 MG/DL Creatinine 1.09 0.60-1.30 MG/DL Estimat Glomerular Filtration Rate > 60 BUN/Creatinine Ratio 12 Glucose Level 209 H 70-105 MG/DL Calcium Level 9.2 8.5-10.1 MG/DL Corrected Calcium 9.1 8.5-10.1 MG/DL Magnesium Level 1.8 1.6-2.4 MG/DL Total Bilirubin 0.4 0.1-1.0 MG/DL Aspartate Amino Transf (AST/SGOT) 11 5-34 U/L Alanine Aminotransferase (ALT/SGPT) 12 0-55 U/L Alkaline Phosphatase 90 40-136 U/L Lactate Dehydrogenase 214 125-220 U/L Myoglobin 27.3 10.0-92.0 NG/ML Troponin I < 0.028 <0.028 NG/ML C-Reactive Protein High Sensitivity 6.44 H 0.00-0.50 MG/DL B-Type Natriuretic Peptide 44.0 <100.0 PG/ML Total Protein 7.4 6.4-8.2 GM/DL Albumin 4.1 3.2-4.5 GM/DL Procalcitonin 0.08 <0.10 NG/ML Coronavirus 2019 ([facility]) Negative Negative Lactic Acid Level 1.36 0.50-2.00 MMOL/L My Orders Orders - DEE,HERNANDO NEGOTIATOR Cbc With Automated Diff (05/31/20 13:20) Magnesium (05/31/20 13:20) Chest 1 View, Ap/Pa Only (05/31/20 13:20) Ekg Tracing (05/31/20 13:20) Comprehensive Metabolic Panel (05/31/20 13:20) Myoglobin Serum (05/31/20 13:20) Protime With Inr (05/31/20 13:20) Partial Thromboplastin Time (05/31/20 13:20) O2 (05/31/20 13:20) Monitor-Rhythm Ecg Trace Only (05/31/20 13:20) Ed Iv/Invasive Line Start (05/31/20 13:20) BNP (05/31/20 13:20) Troponin I (05/31/20 13:20) Aspirin Chewable Tablet (Baby Aspirin Ch (05/31/20 13:30) Procalcitonin (Pct) (05/31/20 13:20) Hs C Reactive Protein (05/31/20 13:20) LDH (05/31/20 13:20) Blood Culture (05/31/20 13:20) Covid 19 Inhouse Test (05/31/20 13:20) Lactic Acid Analyzer (05/31/20 13:20) Sputum Culture (05/31/20 13:51) Ed Iv/Invasive Line Start (05/31/20 14:22) Ns Iv 1000 Ml (Sodium Chloride 0.9%) (05/31/20 14:22) Oxycodone/Acet 10/325mg Tablet (Percocet (05/31/20 14:30) Coronavirus Sars-Cov-2 So 2018 (05/31/20 14:32) Ketorolac Injection (Toradol Injection) (05/31/20 15:42) Medications Given in ED Current Medications Medications Dose Ordered Sig/Gale Route Start Time Stop Time Status Last Admin Dose Admin Aspirin 324 mg ONCE ONCE PO 05/31/20 13:30 05/31/20 13:31 DC 05/31/20 13:47 324 MG Oxycodone/ Acetaminophen 1 tab ONCE ONCE PO 05/31/20 14:30 05/31/20 14:31 DC 05/31/20 15:05 1 TAB Vital Signs/I&O 05/31/20 05/31/20 13:07 13:30 Pulse 93 Resp 16 B/P (MAP) 160/97 (118) Pulse Ox 97 98 O2 Delivery Nasal Cannula Nasal Cannula O2 Flow Rate 4.00 4.00 FiO2 98 Capillary Refill : Progress Note : Time: 13:10 Progress Note Patient seen and evaluated, will obtain labs, chest x-ray, EKG, aspirin 324 mg orally. Patient has an appointment with oncology tomorrow. 1400 chest x-ray shows improvement from yesterday. Discussed with Dr. Palmer by phone. 1430 back and hip pain, chronic, takes Percocet every 4 hours. Pain to left ant and post chest, palpable. With history of cough and palpable pain, concerned that likely costochondritis. 1500Vital signs remained stable, afebrile. 1530 patient reports pain has improved. Discharge instructions and return precautions reviewed with the patient. All questions answered. ECG Initial ECG Impression Date: May 31, 2020 Initial ECG Impression Time: 13:28 Initial ECG Rate: 85 Initial ECG Rhythm: Normal Sinus Initial ECG Intervals: Normal Initial ECG Intervals IA 167, QRSD 156, QT 420, QTC 500. [place] P -20, QRS -34, T106. Left bundle branch block, noted on previous EKG. Initial ECG Impression: Normal Initial ECG Comparisson: Unchanged Diagnostic Imaging Diagonstic Imaging: Xray Plain Films/CT/US/NM/MRI: chest Comments NAME: EHSAN ZUÑIGA [facility] REC#: [id number] PT STATUS: REG CLI : 1960 PHYSICIAN: ADITYA APODACA APRN ADMIT DATE: 05/30/20/RAD Signed Date of Exam:05/30/20 CHEST PA/LAT (2 VIEW) HISTORY: COPD. Lung cancer. COMPARISON: 01/01/2020. FINDINGS: Two views of the chest are performed. The left upper lobe mass appears increased in size with additional surrounding airspace opacity. The left Port-A-Cath tip projects over the lower SVC. No pleural effusion or pneumothorax is seen. The cardiac silhouette is normal in size. Cervical spine fusion hardware is noted. IMPRESSION: 1. The left upper lobe mass appears mildly increased in size with increased surrounding airspace opacity which may be due to infection or hemorrhage. Dictated by: Dictated on workstation # [id number] Dict: 05/30/20 1653 Trans: 05/31/20 0827 [facility] [id number] Interpreted by: ARPITA BLOOM MD Electronically signed by: ARPITA BLOOM MD 05/31/20 0827 Diagonstic Imaging: Xray Plain Films/CT/US/NM/MRI: chest Comments NAME: EHSAN ZUÑIGA [facility] REC#: [id number] PT STATUS: REG ER : 1960 PHYSICIAN: HERNANDO PRICE ADMIT DATE: 05/31/20/ER Draft Date of Exam:05/31/20 CHEST 1 VIEW, AP/PA ONLY INDICATION: Cough and chest pressure. TIME OF EXAM: 1:53 PM. COMPARISON: 05/30/2020. FINDINGS: The heart size is stable. The left upper lobe parenchymal density does appear to be slightly less prominent on today's study, perhaps owing to some improving surrounding infiltrate. No new infiltrate is seen. The right lung is clear. There is no effusion or pneumothorax. Postop changes in the lower cervical spine are noted. IMPRESSION: Improved aeration of the left upper lobe when compared with the prior exam of one day earlier. Dictated on workstation # [id number] Dict: 05/31/20 1400 Trans: 05/31/20 1404 [id number] Interpreted by: MEGAN HEREDIA MD Electronically signed by: Reviewed: Reviewed by Me Departure Impression Primary Impression: Lung cancer Qualified Codes: C34.12 - Malignant neoplasm of upper lobe, left bronchus or lung Additional Impressions: Costochondritis Pneumonia Qualified Codes: J18.9 - Pneumonia, unspecified organism Disposition: HOME, SELF-CARE Condition: Improved Departure-Patient Inst. Decision time for Depature: 15:30 Referrals: JULIET RODRIGUEZ MD (PCP/Family) Primary Care Physician Patient Instructions: Costochondritis (DC), Pneumonia, Adult (DC) Add. Discharge Instructions: Continue to take the Levaquin as prescribed. Use your rescue inhaler 2 puffs every 4 hours as needed. Continue to use your Oxygen. Keep your appt with Dr. Schumacher for tomorrow. Use your meloxicam one tablet every 12 hours as needed. Apply warm moist compressions to your left chest wall as needed for pain. Return to the emergency department for new, urgent health care needs. All discharge instructions reviewed with patient and/or family. Voiced understanding. Copy Copies To 1: BRENDON PALMER DO; JUSTICE VARGAS MD; SHANTANU SCHUMACHER MD, AMY ARNP May 31, 2020 13:36
[2020-05-31 13:48] LABS: BASOPHILS # (AUTO) 0.1 10^3/uL (0.0-0.1); BASOPHILS % (AUTO) 1 % (0-10); EOSINOPHILS # (AUTO) 0.2 10^3/uL (0.0-0.3); EOSINOPHILS % (AUTO) 2 % (0-10); HEMATOCRIT 35 % (40-54); HEMOGLOBIN 11.7 G/DL (13.3-17.7); LYMPHOCYTES # (AUTO) 2.3 X 10^3 (1.0-4.0); LYMPHOCYTES % (AUTO) 21 % (12-44); MEAN CORPUSCULAR HEMOGLOBIN 28 PG (25-34); MEAN CORPUSCULAR HGB CONC 33 G/DL (32-36); MEAN CORPUSCULAR VOLUME 82 FL (80-99); MEAN PLATELET VOLUME 10.7 FL (7.4-10.4); MONOCYTES % (AUTO) 10 % (0-12); NEUTROPHILS # (AUTO) 7.4 X 10^3 (1.8-7.8); NEUTROPHILS % (AUTO) 68 % (42-75); PLATELET COUNT 262 10^3/uL (130-400)
[2020-05-31 14:02] LABS: PROTHROMBIN TIME PATIENT 13.3 SEC (12.2-14.7)
[2020-05-31 14:03] LABS: ALBUMIN 4.1 GM/DL (3.2-4.5)
[2020-05-31 14:04] LABS: CHLORIDE 97 MMOL/L (98-107); SODIUM 134 MMOL/L (135-145)
--- NOTE | 2020-05-31 14:04 | Diagnostic Imaging Report ---
INDICATION: Cough and chest pressure. TIME OF EXAM: 1:53 PM. COMPARISON: 05/30/2020. FINDINGS: The heart size is stable. The left upper lobe parenchymal density does appear to be slightly less prominent on today's study, perhaps owing to some improving surrounding infiltrate. No new infiltrate is seen. The right lung is clear. There is no effusion or pneumothorax. Postop changes in the lower cervical spine are noted. IMPRESSION: Improved aeration of the left upper lobe when compared with the prior exam of one day earlier. Dictated by: Dictated on workstation # [id number]
[2020-05-31 14:05] LABS: CALCIUM 9.2 MG/DL (8.5-10.1)
[2020-05-31 14:06] LABS: GLUCOSE 209 MG/DL (70-105); TOTAL PROTEIN 7.4 GM/DL (6.4-8.2)
[2020-05-31 14:07] LABS: CARBON DIOXIDE 27 MMOL/L (21-32)
[2020-05-31 14:08] LABS: BILIRUBIN,TOTAL 0.4 MG/DL (0.1-1.0)
[2020-05-31 14:09] LABS: ALKALINE PHOSPHATASE 90 U/L (40-136)
[2020-05-31 14:10] LABS: CREATININE SERUM 1.09 MG/DL (0.60-1.30); GFR ESTIMATED > 60
[2020-05-31 14:11] LABS: BUN/CREATININE RATIO 12
[2020-05-31 14:13] LABS: ALANINE AMINOTRANSFERASE 12 U/L (0-55); MAGNESIUM 1.8 MG/DL (1.6-2.4)
[2020-05-31 15:58] VITALS: BP 152/94
== END ==
LOC: EDUNIT# 12:55 → ER 13:01
DX: C34.12 Malignant neoplasm of upper lobe, left bronchus or lung (principal); M94.0 Chondrocostal junction syndrome [Tietze]; J18.9 Pneumonia, unspecified organism; E11.9 Type 2 diabetes mellitus without complications; K21.9 Gastro-esophageal reflux disease without esophagitis; F41.9 Anxiety disorder, unspecified; I10 Essential (primary) hypertension; J44.9 Chronic obstructive pulmonary disease, unspecified; Z88.1 Allergy status to other antibiotic agents; Z88.8 Allergy status to other drugs, medicaments and biological substances; Z87.891 Personal history of nicotine dependence; Z95.9 Presence of cardiac and vascular implant and graft, unspecified; Z86.73 Personal history of transient ischemic attack (TIA), and cerebral infarction without residual deficits; Z80.0 Family history of malignant neoplasm of digestive organs; Z82.49 Family history of ischemic heart disease and other diseases of the circulatory system; Z79.4 Long term (current) use of insulin
CPT/HCPCS: 71045; 80053; 83605; 83615; 83735; 83874; 83880; 84145; 84484; 85025; 85610; 85730; 86141; 87040; 87070; 87205; 93005; 93041; 99284; U0002; 36415; 87635

== ENCOUNTER → 2020-06-01 | Outpatient (CLI) | payer MEDICARE ==
[~2020-06-01] MED LIST changes: -ASPIRIN 81 MG CHEW (CHILDREN'S ASA) PO ONE; -CETI10TA21 PO; +CETI10TA49 PO; -KETOROLAC 30 MG/ML VIAL IVP STA; -NS IV 1000 ML 1,000 ML IV SCH; -PANT40TA3 PO; +PANT40TA52 PO; -oxyCODONE/APAP 10/325MG (PERCOCET 10) TABLET PO ONE
== END ==
LOC: EDSTATUS 05-18 16:36 → ONC 14:28
PROVIDERS: ATTEND Internal Medicine Hematology & Oncology
DX: C34.12 Malignant neoplasm of upper lobe, left bronchus or lung (principal); J84.9 Interstitial pulmonary disease, unspecified; I25.10 Atherosclerotic heart disease of native coronary artery without angina pectoris; I10 Essential (primary) hypertension; E11.9 Type 2 diabetes mellitus without complications; J44.9 Chronic obstructive pulmonary disease, unspecified; A31.0 Pulmonary mycobacterial infection; L08.89 Other specified local infections of the skin and subcutaneous tissue; Z92.3 Personal history of irradiation; Z87.891 Personal history of nicotine dependence
CPT/HCPCS: 99213

== ENCOUNTER → 2020-06-03 | Outpatient (CLI) | payer MEDICARE ==
[~2020-06-03] MED LIST changes: +BARIUM SUSPENSION 2.1% (VANILLA SILQ) 450 ML PO ONE; +CATHETER FLUSH 10 ML SYR IV PRN; +HOLD METFORMIN - RECEIVED CONTRAST 20 ML VIAL IV SCH; +IOHEXOL 350 MG/ML 100 ML (OMNIPAQUE 350) VIAL IV ONE; +NS 100 ML (IVPB) BAG IV ONE
--- NOTE | 2020-06-03 12:01 | Diagnostic Imaging Report ---
PROCEDURE: CT chest and abdomen with contrast. TECHNIQUE: Multiple contiguous axial images were obtained through the chest and abdomen after the administration of intravenous contrast. Auto Exposure Controls were utilized during the CT exam to meet ALARA standards for radiation dose reduction. INDICATION: Lung carcinoma. Comparison is made with prior CT chest from 02/17/2020. FINDINGS: Left chest wall port has been placed. No axillary lymphadenopathy is identified. There is some fullness in the subcarinal location, however this appears similar to prior exam. There are small lymph nodes in the babatunde bilaterally as well as small lymph nodes in the right paratracheal location, similar to prior. No pericardial or pleural fluid is identified. Left upper lobe mass previously described measures approximately 2.5 cm AP by 2.3 cm transverse compared with 2.5 cm AP by 2.2 cm transverse on prior exam. No cavitary component is identified on today's study. However, there is some surrounding infiltrate that has developed since prior exam. There is a slightly nodular component which extends along the inferior margin of the lesion which is new measuring 1.9 cm AP by 1.9 cm transverse. Previously noted small nodular densities along the major fissure on the left appears stable. Small nodule right middle lobe appears stable. No new parenchymal mass is detected. IMPRESSION: Left upper lobe mass. The cavitary component of the mass is no longer visualized. There is some new surrounding perilesional infiltrate. In addition, there is a slightly nodular new component extending from the inferior margin of the lesion. Its uncertain if this represents additional tumor versus consolidative infiltrate. The remainder of the chest is unremarkable. CT ABDOMEN: No discrete liver mass is identified. The gallbladder is unremarkable. There is no biliary ductal dilatation. The pancreas and spleen are unremarkable. No adrenal mass is detected. Kidneys are unremarkable. Aorta is non-aneurysmal. No central retroperitoneal or mesenteric lymphadenopathy is seen. The bowel loops are normal caliber. There is no obstruction. There is no free fluid or fluid collection. IMPRESSION: Unremarkable CT of the abdomen. No lymphadenopathy or evidence of metastatic disease is identified. Dictated by: Dictated on workstation # [id number]
== END ==
LOC: RAD 10:30
PROVIDERS: ATTEND Internal Medicine Hematology & Oncology
DX: Z85.118 Personal history of other malignant neoplasm of bronchus and lung (principal); Z20.828 Contact with and (suspected) exposure to other viral communicable diseases
CPT/HCPCS: 71260; 74160

== ENCOUNTER → 2020-06-06 | Outpatient (CLI) | payer MEDICARE ==
[~2020-06-06] MED LIST changes: -BARIUM SUSPENSION 2.1% (VANILLA SILQ) 450 ML PO ONE; -CATHETER FLUSH 10 ML SYR IV PRN; -HOLD METFORMIN - RECEIVED CONTRAST 20 ML VIAL IV SCH; -IOHEXOL 350 MG/ML 100 ML (OMNIPAQUE 350) VIAL IV ONE; -NS 100 ML (IVPB) BAG IV ONE
== END ==
LOC: ONC 13:46
PROVIDERS: ATTEND Internal Medicine Hematology & Oncology
DX: C34.12 Malignant neoplasm of upper lobe, left bronchus or lung (principal); I25.10 Atherosclerotic heart disease of native coronary artery without angina pectoris; E11.9 Type 2 diabetes mellitus without complications; I10 Essential (primary) hypertension; R07.89 Other chest pain; L08.9 Local infection of the skin and subcutaneous tissue, unspecified
CPT/HCPCS: 99213

== ENCOUNTER → 2020-08-25 | Outpatient (CLI) | payer MEDICARE ==
[~2020-08-25] MED LIST changes: +CATHETER FLUSH 10 ML SYR IV PRN; +HOLD METFORMIN - RECEIVED CONTRAST 20 ML VIAL IV SCH; +IOHEXOL 350 MG/ML 100 ML (OMNIPAQUE 350) VIAL IV ONE; -MONT10TA26 PO; +MONT10TA97 PO; +NS 100 ML (IVPB) BAG IV ONE
--- NOTE | 2020-08-25 10:32 | Diagnostic Imaging Report ---
PROCEDURE: CT chest with contrast only. TECHNIQUE: Multiple contiguous axial images were obtained through the chest after administration of intravenous contrast. Auto Exposure Controls were utilized during the CT exam to meet ALARA standards for radiation dose reduction. INDICATION: Lung cancer The previous CT chest and abdomen exam of 06/03/2020 noted a left upper lobe mass with perilesional atelectasis/infiltrate. There were 2 components to the mass. One measured 2.3 x 2.5 cm while the more inferiorly located portion of the lesion measured 1.9 x 1.9 cm. On this study, the mass has increased in size and these 2 areas are now confluent. The mass now measures approximately 4.5 x 5.9 cm. There is also a small 1.2 x 1.3 cm satellite nodule along the inferior posterior aspect of the mass. Furthermore, in the interval since the prior exam, aorticopulmonary window and mediastinal adenopathy have developed. Specifically, there is now a 1.4 x 1.7 cm aorticopulmonary low density lymph node and a 1.3 x 2.0 cm low density lymph node interposed between the main pulmonary artery and the trachea. The soft tissues about the left hilum also seems somewhat more prominent than on the prior exam and I suspect there may be a neoplastic nodes in this area as well. The 1.0 cm nodule in the left perihilar region seen previously is again evident and now measures 1.2 cm. The perilesional infiltrate about the left upper lobe mass seen previously has diminished. There is only a small amount of residual density still present in this area and in the left lung base. The lungs are otherwise generally clear. There is no sign of failure, pneumonia or of pleural effusion. The heart is stable in size. Coronary artery calcifications are noted. The aorta is not abnormally dilated and there is no sign of a dissection. There is no defect within the pulmonary arteries to indicate a pulmonary embolus. The 1.1 x 2.0 cm right hilar node seen previously is again evident and no different. The thyroid gland was not well visualized. The sections through the upper abdomen failed to show any sign of an acute abnormality. The bone windows are unremarkable for a fracture or for a destructive lesion. IMPRESSION: 1. The appearance of the chest has worsened since the prior study as the neoplastic mass in the left upper lung has increased in size. Furthermore, there now appears to be involvement of the aorticopulmonary window, the mediastinum and the left hilum by neoplastic adenopathy. If further imaging is desired, then PET CT would be recommended. 2. The small nodule in the left perihilar region seen previously is minimally larger on this exam. 3. There are chronic pulmonary changes but there is no acute cardiopulmonary abnormality identified. Dictated by: Dictated on workstation # [id number]
== END ==
LOC: RAD 08:13
PROVIDERS: ATTEND Internal Medicine Hematology & Oncology
DX: C34.92 Malignant neoplasm of unspecified part of left bronchus or lung (principal)
CPT/HCPCS: 71260

== ENCOUNTER 2020-09-01 13:12 | Outpatient (RCR) | payer MEDICARE ==
[2020-08-25 08:35] LABS: BASOPHILS # (AUTO) 0.1 10^3/uL (0.0-0.1); BASOPHILS % (AUTO) 1 % (0-10); EOSINOPHILS # (AUTO) 0.4 10^3/uL (0.0-0.3); EOSINOPHILS % (AUTO) 3 % (0-10); HEMATOCRIT 37 % (40-54); HEMOGLOBIN 11.8 g/dL (13.3-17.7); LYMPHOCYTES # (AUTO) 2.2 10^3/uL (1.0-4.0); LYMPHOCYTES % (AUTO) 14 % (12-44); MEAN CORPUSCULAR HEMOGLOBIN 27 pg (25-34); MEAN CORPUSCULAR HGB CONC 32 g/dL (32-36); MEAN CORPUSCULAR VOLUME 84 fL (80-99); MEAN PLATELET VOLUME 10.6 fL (9.0-12.2); MONOCYTES % (AUTO) 6 % (0-12); NEUTROPHILS # (AUTO) 11.7 10^3/uL (1.8-7.8); NEUTROPHILS % (AUTO) 75 % (42-75); PLATELET COUNT 216 10^3/uL (130-400); WHITE BLOOD COUNT 15.6 10^3/uL (4.3-11.0)
[2020-08-25 08:57] LABS: ALANINE AMINOTRANSFERASE 10 U/L (0-55); ALBUMIN 3.8 GM/DL (3.2-4.5); ALKALINE PHOSPHATASE 77 U/L (40-136); BILIRUBIN,TOTAL 0.5 MG/DL (0.1-1.0); BUN/CREATININE RATIO 15; CALCIUM 8.8 MG/DL (8.5-10.1); CARBON DIOXIDE 27 MMOL/L (21-32); CHLORIDE 96 MMOL/L (98-107); CREATININE SERUM 1.16 MG/DL (0.60-1.30); GFR ESTIMATED > 60; GLUCOSE 259 MG/DL (70-105); POTASSIUM 4.5 MMOL/L (3.6-5.0); SODIUM 132 MMOL/L (135-145); TOTAL PROTEIN 7.2 GM/DL (6.4-8.2)
[~2020-09-01 13:12] MED LIST changes: -CATHETER FLUSH 10 ML SYR IV PRN; -HOLD METFORMIN - RECEIVED CONTRAST 20 ML VIAL IV SCH; -IOHEXOL 350 MG/ML 100 ML (OMNIPAQUE 350) VIAL IV ONE; -NS 100 ML (IVPB) BAG IV ONE
[2020-09-11] MEDS ORDERED: OXYC5TAB PO (08:52)
== END 2020-09-23 08:10 | disposition home or self-care (01) ==
LOC: ONC 13:12
PROVIDERS: ATTEND Internal Medicine Hematology & Oncology
DX: C34.12 Malignant neoplasm of upper lobe, left bronchus or lung (principal); I25.10 Atherosclerotic heart disease of native coronary artery without angina pectoris; E11.9 Type 2 diabetes mellitus without complications; I10 Essential (primary) hypertension; L08.9 Local infection of the skin and subcutaneous tissue, unspecified; E78.2 Mixed hyperlipidemia; J84.9 Interstitial pulmonary disease, unspecified; G47.33 Obstructive sleep apnea (adult) (pediatric); J44.9 Chronic obstructive pulmonary disease, unspecified; Z87.891 Personal history of nicotine dependence; Z92.3 Personal history of irradiation; Z87.09 Personal history of other diseases of the respiratory system
CPT/HCPCS: 80053; 82378; 85025; 99214

== ENCOUNTER 2020-09-11 06:31 | Emergency (ER) | payer MEDICARE ==
[2020-09-11] MEDS ORDERED: morphine INJ 10 MG/ML 1ML (SYR OR VIAL) IV STA (06:44)
[2020-09-11] MEDS ORDERED: ASPIRIN 81 MG CHEW (CHILDREN'S ASA) PO ONE (06:45)
[2020-09-11] MEDS ORDERED: NS IV 1000 ML 1,000 ML IV ONE (06:45)
[2020-09-11 06:51] LABS: BASOPHILS # (AUTO) 0.1 10^3/uL (0.0-0.1); BASOPHILS % (AUTO) 1 % (0-10); EOSINOPHILS # (AUTO) 0.2 10^3/uL (0.0-0.3); EOSINOPHILS % (AUTO) 1 % (0-10); HEMATOCRIT 35 % (40-54); HEMOGLOBIN 11.5 g/dL (13.3-17.7); LYMPHOCYTES # (AUTO) 1.5 10^3/uL (1.0-4.0); LYMPHOCYTES % (AUTO) 13 % (12-44); MEAN CORPUSCULAR HEMOGLOBIN 27 pg (25-34); MEAN CORPUSCULAR HGB CONC 33 g/dL (32-36); MEAN CORPUSCULAR VOLUME 82 fL (80-99); MEAN PLATELET VOLUME 10.4 fL (9.0-12.2); MONOCYTES # (AUTO) 0.7 10^3/uL (0.0-1.0); MONOCYTES % (AUTO) 5 % (0-12); NEUTROPHILS # (AUTO) 9.5 10^3/uL (1.8-7.8); NEUTROPHILS % (AUTO) 79 % (42-75); PLATELET COUNT 269 10^3/uL (130-400)
--- NOTE | 2020-09-11 07:00 | NUR ---
ASSUMED CARE OF THE PT.
[2020-09-11 07:01] LABS: CHLORIDE 99 MMOL/L (98-107); POTASSIUM 4.6 MMOL/L (3.6-5.0); SODIUM 133 MMOL/L (135-145)
[2020-09-11 07:03] LABS: GLUCOSE 254 MG/DL (70-105); TOTAL PROTEIN 7.5 GM/DL (6.4-8.2)
[2020-09-11 07:04] LABS: CARBON DIOXIDE 23 MMOL/L (21-32)
[2020-09-11 07:05] LABS: BILIRUBIN,TOTAL 0.3 MG/DL (0.1-1.0)
[2020-09-11 07:07] LABS: ALKALINE PHOSPHATASE 74 U/L (40-136); CREATININE SERUM 1.05 MG/DL (0.60-1.30); GFR ESTIMATED > 60
[2020-09-11 07:08] LABS: BUN/CREATININE RATIO 10
[2020-09-11 07:10] LABS: ALANINE AMINOTRANSFERASE 10 U/L (0-55); FIBRIN DEGRADATION PRODUCTS 0.47 UG/ML (0.00-0.49); MAGNESIUM 2.2 MG/DL (1.6-2.4); PROTHROMBIN TIME PATIENT 13.1 SEC (12.2-14.7)
--- NOTE | 2020-09-11 07:11 | ED Chest Pain ---
General Chief Complaint: Chest Pain Stated Complaint: CHEST PAIN/LEFT ARM PAIN/NAUSEA Nursing Triage Note: TO ED VIA POV AND AMBULATORY TO ROOM 7 WITH C/O LEFT UPPER CHEST PAIN AND UNDER LEFT ARM PAIN THAT STARTED APPROX 193. HX LUNG CA. Nursing Sepsis Screen: No Definite Risk Source: patient Exam Limitations: no limitations History of Present Illness Date Seen by Provider: Sep 11, 2020 Time Seen by Provider: 06:38 Initial Comments Here with report of left upper chest pain that radiates to his back that he reports is sharp and fairly significant. He has been taking his prescribed Percocet 10 and that has not helped. Last dose of that was 2 hours ago. Does have history of lung cancer to that area but now also has mediastinal involvement. The mass has grown as confirmed on CT scan done about 2 weeks ago. Denies nausea, vomiting, sore throat or sweating. Does have cough that has been unchanged throughout the cancer diagnosis. He does have a port in the left upper chest but it is not a PowerPort. States that this pain feels like his cancer pain although it is worse this time. Timing/Duration: getting worse, 12 hours Severity/Quality: moderate, severe, sharp Location: other (Left upper chest) Radiation: back ASA po FILM TESTS CHECKER: No NTG SL FILM TESTS CHECKER: No Associated Symptoms: No abdominal pain; back pain; No nausea/vomiting; shortness of breath; No weakness Allergies and Home Medications Allergies Coded Allergies: ceftriaxone (Verified Allergy, Intermediate, 08/11/18) Patient experienced reaction approx. 6 hrs after receiving rocephin. He experienced redness, itching and shortness of air. Benadryl was administered and it resolved. Home Medications Albuterol Sulfate 18 Gm Hfa.aer.ad, 2 PUFF INH Q6H PRN for SHORTNESS OF BREATH, (Reported) Albuterol Sulfate 2.5 Mg/3 Ml Vial.neb, 2.5 MG NEB Q6H PRN for SHORTNESS OF BREATH, (Reported) Budesonide 8.43 Ml [place].pump, 8.43 ML NS BID PRN for ALLERGIES, (Reported) Budesonide/Formoterol Fumarate 10.2 Gm Hfa.aer.ad, 2 PUFF INH BID, (Reported) Hydrocodone/Acetaminophen 1 Each Tablet, 1 EACH PO Q4H PRN for PAIN-MODERATE (5- 7) Prescribed by: HERNANDO KILGORE on 01/01/20 1213 Insulin Aspart 100 Unit/1 Ml Susp, 20 UNITS SQ BID WITH MEALS, (Reported) Insulin Aspart 100 Unit/1 Ml Susp, 10 UNIT SQ 1200, (Reported) Insulin Determir 1,000 Units/10 Ml Soln, 50 UNITS SQ BID, (Reported) LAST PICKED UP 09-14-2018 Lorazepam 0.5 Mg Tablet, 0.5 MG PO for ANXIETY, (Reported) PLACE UNDER TONGUE AND ADD SMALL AMOUNT OF WATER TO DISOLVE TABLET Losartan Potassium 25 Mg Tablet, 25 MG PO DAILY, (Reported) Metoprolol Succinate 50 Mg Tab.er.24h, 50 MG PO DAILY, (Reported) Multivitamin with Minerals 1 Each Tablet, 1 EACH PO DAILY, (Reported) Oxycodone HCl/Acetaminophen 1 Each Tablet, 1 TAB PO QID PRN for PAIN-MODERATE Prescribed by: SHANNON RODRIGUEZ on 03/14/19 1303 Pantoprazole Sodium 40 Mg Tablet.dr, 40 MG PO DAILY, (Reported) LAST PICKED UP 12-16-2018 #30/30DS Pregabalin 300 Mg Capsule, 300 MG PO TID, (Reported) Tiotropium [place] 4 Gm Mist.inhal, 2 PUFF INH DAILY, (Reported) LAST PICKED UP 09-14-2018 Vancomycin/Water For Inj (Peg) 2 Gm/400 Ml Piggyback, 2 GM IV Q12H, (Reported) Patient Home Medication List Home Medication List Reviewed: Yes Review of Systems Review of Systems Constitutional: see HPI; No chills, No fever EENTM: Nose Congestion; No Throat Pain Respiratory: Cough, Shortness of Air Cardiovascular: Chest Pain; Denies Edema Gastrointestinal: Denies Nausea, Denies Vomiting Genitourinary: No Symptoms Reported Musculoskeletal: back pain; No muscle pain Skin: no symptoms reported Psychiatric/Neurological: No Symptoms Reported All Other Systems Reviewed Negative Unless Noted: Yes Past Tlirihc-Ddfzyi-Mcpjpc Hx Past Med/Social Hx: Reviewed Nursing Past Med/Soc Hx Patient Social History Alcohol Use: Denies Use Number of Drinks Today: AA Alcohol Beverage of Choice: Beer Recreational Drug Use: Yes Drug of Choice: marijuana Smoking Status: Former Smoker Type Used: Cigarettes, Electronic/Vapor, Smokeless Tobacco Former Smoker, Quit: May 17, 2019 2nd Hand Smoke Exposure: No Recent Foreign Travel: No Contact w/Someone Who Travel: No Recent Infectious Disease Expo: No Recent Hopitalizations: No Physical Abuse: No Sexual Abuse: No Mistreated: No Fear: No Immunizations Up To Date Tetanus Booster (TDap): Less than 5yrs PED Vaccines UTD: No Date of Pneumonia Vaccine: January 20, 2013 Date of Influenza Vaccine: Jun 20, 2019 Seasonal Allergies Seasonal Allergies: Yes Past Medical History Surgeries: Yes Abdominal, Cardiac, Orthopedic Respiratory: Yes (Innerstitial Lung Disease) Pneumonia, Sleep Apnea, COPD Currently Using CPAP: No (PT STATES, DID NOT NEED AFTER WEIGHT LOSS) Currently Using BIPAP: No Cardiac: Yes (LBBB, CARDIAC MITMG-ALO-WREDNTRYIRM DISEASE/NO INTERVENTION) Coronary Artery Disease, High Cholesterol, Hypertension Neurological: Yes (NEUROPATHY IN FEET; RESTLESS LEG SYNDROME, 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) Neuropathy, TIA Reproductive Disorders: No Sexually Transmitted Disease: No HIV/AIDS: No Genitourinary: No Gastrointestinal: Yes Gastroesophageal Reflux, Hemorrhoids, Polyps Musculoskeletal: Yes Degenerate Disk Disease, Arthritis, Fibromyalgia, Chronic Back Pain Endocrine: Yes Diabetes, Insulin dep HEENT: No Loss of Vision: Denies Hearing Impairment: Hard of Hearing Cancer: No Psychosocial: Yes Anxiety, Suicide Attempts, Depression Integumentary: Yes (DIABETIC FOOT ULCERS/CELLULITIS/OSTEOMYELITIS; MRSA) Blood Disorders: No Adverse Reaction/Blood Tranf: No Family Medical History Reviewed Nursing Family Hx Cancer 03 MOTHER Cancer of colon 03 MOTHER Cataract 03 MOTHER Chest pain 03 FATHER Family history: Cardiovascular disease 03 FATHER Family history: Diabetes mellitus 09 BROTHER Headache 03 FATHER 03 MOTHER 09 BROTHER 09 BROTHER Heart disease 03 FATHER Myocardial infarction 03 FATHER Stroke 09 BROTHER No Family History of: Abdominal aortic aneurysm [place]'s disease Alcoholism Aphasia Congenital heart disease Congestive heart failure Cystic fibrosis Dementia Dysphagia Family history: Allergy Family history: Alzheimer's disease Family history: Arthritis Family history: Asthma Family history: Breast disease Family history: Coronary thrombosis Family history: Gastrointestinal disease Family history: Glaucoma Family history: Hypertension Family history: Osteoporosis Family history: Thyroid disorder Hearing loss Hereditary disease History of - anemia History of - disorder History of - respiratory disease History of drug abuse Human immunodeficiency virus (HIV) seropositivity Hypercholesterolemia Infertile Kidney disease Malignant neoplasm of lung Parkinson's disease Prostate cancer Psychotic disorder Seizure disorder Tuberculosis Visual impairment No Pertinent Family Hx Physical Exam Vital Signs Vital Signs - First Documented 09/11/20 06:44 Temp 36.4 Pulse 71 Resp 20 B/P (MAP) 151/93 (112) Pulse Ox 97 O2 Delivery Nasal Cannula O2 Flow Rate 3.00 Capillary Refill : Less Than 3 Seconds Height, Weight, BMI Height: 6'2.00" Weight: 230lbs. 0.0oz. [id number]; 29.00 BMI Method:Stated General Appearance: WD/WN, Chronically ill, Mild Distress HEENT: PERRL/EOMI, Pharynx Normal Neck: Non Tender, Supple Respiratory: Lungs Clear, Normal Breath Sounds Cardiovascular: Regular Rate, Rhythm, No Murmur Gastrointestinal: Non Tender, Soft Extremity: Normal Range of Motion, Non Tender Neurologic/Psychiatric: Alert, Oriented x3 Skin: Normal Color, Warm/Dry Progress/Results/Core Measures Results/Orders Lab Results Laboratory Tests Test 09/11/20 06:45 Range/Units White Blood Count 12.0 H 4.3-11.0 10^3/uL Red Blood Count 4.31 4.30-5.52 10^6/uL Hemoglobin 11.5 L 13.3-17.7 g/dL Hematocrit 35 L 40-54 % Mean Corpuscular Volume 82 80-99 fL Mean Corpuscular Hemoglobin 27 25-34 pg Mean Corpuscular Hemoglobin Concent 33 32-36 g/dL Red Cell Distribution Width 14.1 10.0-14.5 % Platelet Count 269 130-400 10^3/uL Mean Platelet Volume 10.4 9.0-12.2 fL Immature Granulocyte % (Auto) 1 % Neutrophils (%) (Auto) 79 H 42-75 % Lymphocytes (%) (Auto) 13 12-44 % Monocytes (%) (Auto) 5 0-12 % Eosinophils (%) (Auto) 1 0-10 % Basophils (%) (Auto) 1 0-10 % Neutrophils # (Auto) 9.5 H 1.8-7.8 10^3/uL Lymphocytes # (Auto) 1.5 1.0-4.0 10^3/uL Monocytes # (Auto) 0.7 0.0-1.0 10^3/uL Eosinophils # (Auto) 0.2 0.0-0.3 10^3/uL Basophils # (Auto) 0.1 0.0-0.1 10^3/uL Immature Granulocyte # (Auto) 0.1 0.0-0.1 10^3/uL Prothrombin Time 13.1 12.2-14.7 SEC INR Comment 1.0 0.8-1.4 Activated Partial Thromboplast Time 36 H 24-35 SEC D-Dimer 0.47 0.00-0.49 UG/ML Sodium Level 133 L 135-145 MMOL/L Potassium Level 4.6 3.6-5.0 MMOL/L Chloride Level 99 98-107 MMOL/L Carbon Dioxide Level 23 21-32 MMOL/L Anion Gap 11 5-14 MMOL/L Blood Urea Nitrogen 10 7-18 MG/DL Creatinine 1.05 0.60-1.30 MG/DL Estimat Glomerular Filtration Rate > 60 BUN/Creatinine Ratio 10 Glucose Level 254 H 70-105 MG/DL Calcium Level 9.0 8.5-10.1 MG/DL Corrected Calcium 9.0 8.5-10.1 MG/DL Magnesium Level 2.2 1.6-2.4 MG/DL Total Bilirubin 0.3 0.1-1.0 MG/DL Aspartate Amino Transf (AST/SGOT) 10 5-34 U/L Alanine Aminotransferase (ALT/SGPT) 10 0-55 U/L Alkaline Phosphatase 74 40-136 U/L Myoglobin 37.4 10.0-92.0 NG/ML Troponin I < 0.028 <0.028 NG/ML C-Reactive Protein High Sensitivity 1.99 H 0.00-0.50 MG/DL Total Protein 7.5 6.4-8.2 GM/DL Albumin 4.0 3.2-4.5 GM/DL My Orders Orders - LILIBETH DURAN MD Cbc With Automated Diff (09/11/20:44) Magnesium (09/11/20:44) Chest 1 View, Ap/Pa Only (09/11/20:44) Ekg Tracing (09/11/20:44) Comprehensive Metabolic Panel (09/11/20:44) Myoglobin Serum (09/11/20:44) Protime With Inr (09/11/20:44) Partial Thromboplastin Time (09/11/20:44) O2 (09/11/20:44) Monitor-Rhythm Ecg Trace Only (09/11/20:44) Lipid Panel (09/12/20 06:00) Ed Iv/Invasive Line Start (12/27/20 06:44) Troponin I (09/11/20 06:44) Aspirin Chewable Tablet (Baby Aspirin Ch (09/11/20 06:45) Morphine Injection (Morphine Injection (09/11/20 06:44) Ns Iv 1000 Ml (Sodium Chloride 0.9%) (09/11/20 06:45) Hs C Reactive Protein (09/11/20 06:52) Fibrin Degradation Products (09/11/20 06:45) Hydromorphone Injection (Dilaudid Inject (09/11/20 07:45) Medications Given in ED Current Medications Medications Dose Ordered Sig/Gale Route Start Time Stop Time Status Last Admin Dose Admin Aspirin 324 mg ONCE ONCE PO 09/11/20 06:45 09/11/20 06:47 DC 09/11/20 06:53 324 MG Hydromorphone HCl 1 mg ONCE ONCE IV 09/11/20 07:45 09/11/20 07:46 DC 09/11/20 07:44 1 MG Sodium Chloride 1,000 ml @ 0 mls/hr Q0M ONCE IV 09/11/20 06:45 09/11/20 06:47 DC 09/11/20 06:54 999 MLS/HR Vital Signs/I&O 09/11/20 09/11/20 09/11/20 06:44 06:44 06:44 Temp 36.4 Pulse 71 Resp 20 B/P (MAP) 151/93 (112) Pulse Ox 97 O2 Delivery Nasal Cannula Nasal Cannula Nasal Cannula O2 Flow Rate 3.00 3.00 3.00 Blood Pressure Mean: 112 Progress Progress Note : Progress Note Seen and evaluated. IV, labs, EKG, chest x-ray, ASA 324 mg p.o. and morphine 4 mg IV ordered. Monitor patient. Dilaudid 1 mg IV given for unresolved pain. 0844: Pain improved and more tolerable now. Chest x-ray does show a lesion that does appear to be larger than previous. I do believe his pain is related to cancer. I will write for a few doses of breakthrough pain medicine as I think his standard dosing for his back pain of the Percocet 10/325 is incompletely covering his pain related to his cancer. He does follow-up with his doctor, Dr. Rodriguez, tomorrow and I will have him discuss this further with her. Patient feels comfortable going home. Discharged home with return precautions. Patient verbalized understanding of instructions and agreement with plan. Initial ECG Impression Date: Sep 11, 2020 Initial ECG Impression Time: 06:38 Initial ECG Rate: 67 Initial ECG Rhythm: Normal Sinus Initial ECG Comparisson: Unchanged (05/31/20) Comment Sinus rhythm with left bundle branch block. No evidence of ST elevation AR. Similar to previous. Interpreted by me. Diagnostic Imaging Diagonstic Imaging: Xray Plain Films/CT/US/NM/MRI: chest Comments [facility] [place], [place] NAME: EHSAN ZUÑIGA [facility] REC#: [id number] PT STATUS: REG ER : 1960 PHYSICIAN: LILIBETH DURAN MD ADMIT DATE: 09/11/20/ER Draft Date of Exam:09/11/20 CHEST 1 VIEW, AP/PA ONLY . EXAMINATION: Chest radiograph, portable AP view. DATE: 09/11/2020 7:59 AM INDICATION: 60-year-old male, chest pain. COMPARISON: May 31, 2020. FINDINGS: There is a new masslike area of opacification in the left upper lobe measuring 3.6 x 4.7 cm in size. There are adjacent predominantly linear opacities. Heart size and mediastinal contours are unchanged. There is a left-sided port catheter with tip overlying the mid SVC. There are slightly prominent coarse interstitial lung markings which appear similar to the comparison study. There is cervical spine hardware. IMPRESSION: 1. New masslike area of consolidation in the left upper lobe since comparison radiographs of May 31, 2020 concerning for malignancy. An infectious etiology would be in the differential diagnosis. 2. Mildly prominent coarse interstitial lung markings which may reflect chronic lung changes. Dictated on workstation # [id number] Dict: 09/11/20 0805 Trans: 09/11/[address] [facility] [id number] Interpreted by: JOSE BUENO MD Electronically signed by: Departure Impression Primary Impression: Lung cancer, upper lobe Qualified Codes: C34.12 - Malignant neoplasm of upper lobe, left bronchus or lung Additional Impression: Cancer related pain Disposition: 01 HOME, SELF-CARE Condition: Stable Departure-Patient Inst. Decision time for Depature: 08:48 Referrals: JULIET RODRIGUEZ MD (PCP/Family) Primary Care Physician Patient Instructions: Cancer Pain Syndromes (DC), Lung Cancer (DC) Add. Discharge Instructions: All discharge instructions reviewed with patient and/or family. Voiced understanding. Take medications as directed. Talk with Dr. Rodriguez tomorrow regarding your pa in medication prescriptions. Return for worse pain, fever, vomiting, weakness, breathing problems or other concerns as needed. Scripts Oxycodone HCl (Oxycodone HCl) 5 Mg Tablet 5 MG PO Q6H, #8 TAB 0 Refills Prov: LILIBETH DURAN MD 09/11/20 Copy Copies To 1: JULIET RODRIGUEZ MD, TIMOTHY D MD Sep 11, 2020 07:11
[2020-09-11] MEDS ORDERED: HYDROmorphone 2 MG/ML VIAL (DILAUDID) IV ONE ×2 (07:45→09:00)
--- NOTE | 2020-09-11 08:26 | Diagnostic Imaging Report ---
. EXAMINATION: Chest radiograph, portable AP view. DATE: 09/11/2020 7:59 AM INDICATION: 60-year-old male, chest pain. COMPARISON: May 31, 2020. FINDINGS: There is a new masslike area of opacification in the left upper lobe measuring 3.6 x 4.7 cm in size. There are adjacent predominantly linear opacities. Heart size and mediastinal contours are unchanged. There is a left-sided port catheter with tip overlying the mid SVC. There are slightly prominent coarse interstitial lung markings which appear similar to the comparison study. There is cervical spine hardware. IMPRESSION: 1. New masslike area of consolidation in the left upper lobe since comparison radiographs of May 31, 2020 concerning for malignancy. An infectious etiology would be in the differential diagnosis. 2. Mildly prominent coarse interstitial lung markings which may reflect chronic lung changes. Dictated by: Dictated on workstation # [id number]
[2020-09-11] MEDS ORDERED: OXYC5TAB PO (08:52)
[2020-09-11 09:07] VITALS: BP 159/83
== END 2020-09-11 09:07 | disposition home or self-care (01) ==
LOC: EDUNIT# 06:31 → ER 06:34
DX: C34.12 Malignant neoplasm of upper lobe, left bronchus or lung (principal); G89.3 Neoplasm related pain (acute) (chronic); K21.9 Gastro-esophageal reflux disease without esophagitis; J44.9 Chronic obstructive pulmonary disease, unspecified; M54.9 Dorsalgia, unspecified; I10 Essential (primary) hypertension; E11.9 Type 2 diabetes mellitus without complications; F41.9 Anxiety disorder, unspecified; Z82.49 Family history of ischemic heart disease and other diseases of the circulatory system; Z83.3 Family history of diabetes mellitus; Z80.0 Family history of malignant neoplasm of digestive organs; Z95.9 Presence of cardiac and vascular implant and graft, unspecified; Z86.73 Personal history of transient ischemic attack (TIA), and cerebral infarction without residual deficits; Z87.891 Personal history of nicotine dependence; Z88.1 Allergy status to other antibiotic agents; Z88.8 Allergy status to other drugs, medicaments and biological substances; Z79.891 Long term (current) use of opiate analgesic; Z79.4 Long term (current) use of insulin
CPT/HCPCS: 36415; 71045; 80053; 83735; 83874; 84484; 85025; 85379; 85610; 85730; 86141; 93005; 93041

== ENCOUNTER → 2020-09-27 | Outpatient (CLI) | payer MEDICARE, OTHER ==
[~2020-09-27] MED LIST changes: +OXYC5TAB PO
--- NOTE | 2020-09-27 15:08 | Diagnostic Imaging Report ---
EXAMINATION: PET/CT. INDICATION: Carcinoma. EXAMINATION: After intravenous administration of 13.73 mCi of F18-FDG into the right antecubital fossa, a series of overlapping emission and transmission PET images was obtained. In the coronal, transaxial and sagittal planes, the area imaged extended from the skull base through the upper thighs. PATIENT HEIGHT: 6' 2" WEIGHT: 225 pounds. BLOOD GLUCOSE LEVEL: 67 FINDINGS: The previous PET/CT exam performed on 10/13/2019 noted a hypermetabolic cavitary mass in the left upper lobe. Reportedly this lesion had been biopsied and proved to be squamous cell carcinoma. There was no sign of metastatic disease on the prior exam. The recent CT chest exam of 08/25/2020 did note that the mass in the left upper lung had increased in size and that it measured 4.5 x 5.9 cm. There was also a 1.2 x 1.3 cm satellite nodule along the inferior margin of the mass as well as aorticopulmonary and left perihilar adenopathy. Those findings are again evident on this study. The mass in the left upper lung is hypermetabolic with a maximum SUV of 10.9. On the prior exam, the maximum SUV in this area was only 5.2. The satellite nodule is also hypermetabolic with a maximum SUV of 6.3. In addition, there are hypermetabolic aorticopulmonary and left hilar lymph nodes as well as a small hypermetabolic node in the mediastinum. These nodes have SUV values in the 3.7-4.4 range and consequently should be considered neoplastic until proven otherwise. There are small areas of slightly increased hypermetabolic activity along the periphery of the right lobe of the liver. These have a maximum SUV of 2.8. I am not convinced that these are secondary to metastatic lesions, however. Also, there is asymmetric uptake in the musculature posterior to the right sacrum. The maximum SUV in this area is 3. This finding could be secondary to muscular activity; however, its asymmetry when compared to the left does raise the question of an atypical metastatic focus. There are also areas of increased activity in the soft tissues of each axilla and along the right side of the neck. These are probably secondary to muscular activity. The CT images fail to show any sign of an acute abnormality. There are again diffuse areas of increased density in both lung bases, particularly on the left. These seem similar to the prior exam and consequently are most likely chronic in nature. IMPRESSION: 1. The appearance of the PET/CT exam has worsened as the large mass in the left upper lung seen previously has increased in size and hypermetabolic activity. There are also now hypermetabolic mediastinal, aorticopulmonary, and left hilar nodes as well as a small hypermetabolic satellite nodule adjacent to the left lung mass. 2. The abnormal uptake in the musculature posterior to the right sacrum is of uncertain etiology but more likely due to muscle activity than to metastatic disease. Even so, clinical follow-up is recommended. 3. There is no other evidence for metastatic disease. 4. There is no sign of an acute abnormality. 5. Severe chronic pulmonary changes involving the lung bases are again noted. Dictated by: Dictated on workstation # [id number]
== END ==
LOC: RAD 09:06
PROVIDERS: ATTEND Internal Medicine Hematology & Oncology
DX: D02.22 Carcinoma in situ of left bronchus and lung (principal)
CPT/HCPCS: 78815; A9552

== ENCOUNTER 2020-09-29 12:54 | Outpatient (RCR) | payer MEDICARE, OTHER ==
[~2020-09-29 12:54] MED LIST changes: -LISI-552 PO; -LISI10TA2 PO; +LISI10TA25 PO; +LISI20TA26 PO; +MONT10TA32 PO; -MONT10TA97 PO; -OXYC-471 PO; +OXYC1TAB11 PO
== END 2020-12-28 | disposition home or self-care (01) ==
LOC: ONC 12:54
PROVIDERS: ATTEND Internal Medicine Hematology & Oncology
DX: C34.12 Malignant neoplasm of upper lobe, left bronchus or lung (principal); J84.89 Other specified interstitial pulmonary diseases; J84.9 Interstitial pulmonary disease, unspecified; I25.10 Atherosclerotic heart disease of native coronary artery without angina pectoris; E11.9 Type 2 diabetes mellitus without complications; I10 Essential (primary) hypertension; E78.2 Mixed hyperlipidemia; Z92.3 Personal history of irradiation; Z87.09 Personal history of other diseases of the respiratory system; Z87.891 Personal history of nicotine dependence
CPT/HCPCS: 99213